=== PATIENT | male | born 1940 | race Caucasian/White ===

== ENCOUNTER 2021-02-09 10:34 | Inpatient (IN) | payer MEDICARE ==
[~2021-02-09] VITALS: Ht 180.3 cm; Wt 121.0 kg
[2021-02-09] MEDS ORDERED: LOPERAMIDE 2 MG (IMODIUM) TABLET PO PRN (11:30)
[2021-02-09] MEDS ORDERED: ACETAMINOPHEN 500 MG TAB (TYLENOL) PO PRN (11:30)
[2021-02-09] MEDS ORDERED: ALPRAZolam 0.25 MG (XANAX) TAB PO PRN (11:30)
[2021-02-09] MEDS ORDERED: ONDANSETRON 4 MG (ZOFRAN) ORAL DISSOLVE TAB PO PRN (11:30)
[2021-02-09] MEDS ORDERED: CALCIUM CARBONATE 500 MG (TUMS) TAB.CHEW PO PRN (11:30)
[2021-02-09] MEDS ORDERED: LACTULOSE SYRUP 10GM/15ML (ENULOSE) 30ML UDC PO PRN (11:30)
[2021-02-09] MEDS ORDERED: diphenhydrAMINE 25 MG TAB (BENADRYL) PO PRN (11:30)
[2021-02-09] MEDS ORDERED: FLEET ENEMA ADULT 1 EA BTL PR PRN (11:30)
[2021-02-09] MEDS ORDERED: BISACODYL 10 MG SUPP (DULCOLAX) PR PRN (11:30)
[2021-02-09] MEDS ORDERED: guaiFENesin/CODEINE (ROBITUSSIN AC) 10ML UDC PO PRN (11:30)
[2021-02-09] MEDS ORDERED: DOCUSATE SODIUM 100 MG (COLACE) CAP PO PRN (11:30)
[2021-02-09] MEDS ORDERED: VITA-189 PO (11:41)
[2021-02-09] MEDS ORDERED: DIGO125T3 PO (11:41)
[2021-02-09] MEDS ORDERED: METO200T48 PO (11:41)
[2021-02-09] MEDS ORDERED: POLY17PO6 PO (11:41)
[2021-02-09] MEDS ORDERED: [UNRECOGNIZED DRUG - CODE] PO (11:41)
[2021-02-09] MEDS ORDERED: APIX5TAB PO (11:41)
[2021-02-09] MEDS ORDERED: INSU100V6 SQ (11:41)
[2021-02-09] MEDS ORDERED: INSU100V39 SQ (11:41)
[2021-02-09] MEDS ORDERED: OMEG1CAP24 PO (11:41)
--- OUTSIDE RECORDS SUMMARY | 2021-02-10 13:52 | XMS REPORT | Encounter Summary ---
[facility] Address Unknown Phone Unavailable Care Team Providers Care Cutter Barrel Drum Name Role Phone KAREN PARKINSON PCP Unavailable Insurance Providers: All historical and current Section Date Range: From patient's date of to the date document was create d. This section includes the names of all active insurance providers for the sandrita palacio Insurance Provider Type of Coverage Plan Name Start of Policy Co verage End of Policy Coverage Group Number Member ID Insurance Provider's Telephone N umber Policy Randall's Name Patient's Relationship to Policy Randall [employer] (WNR) PRESCRIPTION (WNR) Jul 12, 2006 (WNR) [id number] ANGELA HOPKINS PATIENT MEDICARE (WNR) MEDICARE (M) PART A Jul 12, 2006 PART A [id number] [phone] ANGELA HOPKINS PATIENT MEDICARE (WNR) MEDICARE (M) PART A Jul 12, 2006 PART A [id number] [phone] ANGELA HOPKINS PATIENT MEDICARE (WNR) MEDICARE (M) PART B Jul 12, 2006 PART B [id number] A [phone] ANGELA HOPKINS PATIENT MEDICARE (WNR) MEDICARE (M) PART B Jul 12, 2006 PART B [id number] A [phone] ANGELA HOPKINS PATIENT MEDICARE (WNR) MEDICARE (M) PART A Jul 12, 2006 PART A [id number] A [phone] ANGELA HOPKINS PATIENT MEDICARE (WNR) MEDICARE (M) PART B Jul 12, 2006 PART B [id number] A [phone] ANGELA HOPKINS PATIENT [id number] LIFE Jul 12, 2006 [facility] [id number] ANGELA HOPKINS PATIENT Selected Encounter This section includes the information on record at [place] for the Encounter. Date/Time Encounter Type Encounter Description Reason Provider Source Jul 20, 2020 08:30 AM Outpatient Encounter TELEPHONE PRIMARY CAR E ICD-10-CM E11.8 Type 2 diabetes mellitus with unspecified complications with Provider Comments: Type 2 diabetes mellitus ([facility] [id number]) KAREN PARKINSON Jonathan Encounter Template Text not used by [place] Assessments - Encounter Diagnoses This section includes the primary and secondary diag noses documented for the Encounter. Date/Time Primary/Secondary Diagnosis Diagnosis Name Provider Source Jul 20, 2020 08:30 AM PRIMARY Type 2 diabetes me llitus with unspecified complications KAREN PARKINSON [facility] Jul 20, 2020 08:30 AM SECONDARY Chronic atrial fibrillatio n, unspecified KAREN PARKINSONDELORES [facility] Jul 20, 2020 08:30 AM SECONDARY Essential (primary) hypertension KAREN PARKINSON [facility] Jul 20, 2020 08:30 AM SECONDARY Hyperlipidemia, unspecified [place]AR[place] Castillo [facility] Jul 20, 2020 08:30 AM SECONDARY Hypothyroidism, unspecified [place] KAREN Castillo [facility] Plan of Treatment: Future Appointments (+ 6 months) and Future Tests (+/- 45 day s) The Plan of Treatment section includes future care activities for the patient fr om all [place] treatment facilities. This section includes future appointments and fu ture orders which are active, pending or scheduled. Future Appointments This section includes appointments that were scheduled t o occur 6 months from the date of the Encounter, up to a maximum of 20 appointme nts. The data comes from all [place] treatment facilities. Appointment Date/Time Appointment Type Appointment Facili ty Name Oct 12, 2020 09:30 AM AMBULATORY - NONE [facility] Oct 18, 2020 01:30 PM AMBULATORY - MEDICINE [facility] Jan 18, 2021 08:45 AM AMBULATORY - NONE [facility] Surgical Procedures: All associated to the encounter No Data Provided for This Section Lab Results: +/- 30 days of the encounter This section includes the Chemistry and Hematology Lab R esults on record with [place] for the patient. Radiology Reports and Pathology Report s are provided separately, in subsequent sections. Lab Results This section contains the Chemistry/Hematology Results bonnie t were resulted 30 days before or 30 days after the date of the Encounter. Date/Time Source Result Type Result - Unit Interpretation Reference Range Comment Jul 13, 2020 08:00 AM [facility] MICROSCOPIC URINALYSIS S pecimen Type: URINE Comment: Specimen reflexed to culture due to increased WBCs. Ordering Provider: KARNE PARKINSON Report Released Date/Time: Apr 20, 2020 09:18 AM Reporting Lab: [address] [phone] Performing Lab: [address] [phone] UA WBC >50 /HPF H 0-5 UA BACTERIA Many /HPF 0-FEW UA SQUAM EPITHELIAL 1-5 /HPF 0-5 UA RBC 3-6 /HPF H 0-2 Jul 13, 2020 08:00 AM [facility] CBC Specimen Type: BLOOD No comment entered. Ordering Provider: KAREN PARKINSON Report Released Date/Time: Apr 20, 2020 09:18 AM Reporting Lab: [address] [phone] Performing Lab: [address] [phone] MPV (FV) 8.9 fL 7.4-10.4 RDW (FV) 13.3 % 11.5-14.5 HCT (FV) 41.0 % 40-52 HGB (FV) 14.1 g/dL 13-18 PLT (FV) 185 K/cmm 150-440 WBC (FV) 7.8 K/cmm 3.8-10.6 RBC (FV) 4.31 M/cmm L 4.4-5.9 MCV (FV) 95.1 fL 80-100 MCH (FV) 32.6 pg 26-34 MCHC (FV) 34.3 g/dL 32-36 NE% (FV) 62.5 % SEE ABSOLUTE # NE# (FV) 4.9 K/cmm 2.4-7.6 LY% (FV) 23.9 % SEE ABSOLUTE # LY# (FV) 1.9 K/cmm 1.0-4.8 MO% (FV) 10.7 % SEE ABSOLUTE # MO# (FV) 0.8 K/cmm 0.1-1.0 EO% (FV) 2.3 % SEE ABSOLUTE # EO# (FV) 0.2 K/cmm 0.0-0.4 BA% (FV) 0.6 % SEE ABSOLUTE # BA# (FV) 0.0 K/cmm 0.0-0.2 Jul 13, 2020 08:00 AM [facility] RENAL+LIVER PROFILE Spec imen Type: SERUM No comment entered. Ordering Provider: KAREN PARKINSON Report Released Date/Time: Apr 20, 2020 09:18 AM Reporting Lab: [address] [phone] Performing Lab: [address] [phone] GLUCOSE (FV) 164 mg/dL H 70-110 ALBUMIN (FV) 3.5 g/dL 3.4-5.0 AST (FV) 31 U/L 15-37 TOTAL BILIRUBIN (FV) 0.83 mg/dL 0.3-1.2 CHLORIDE (FV) 101 mmol/L 98-107 TOTAL PROTEIN (FV) 7.8 g/dL 6.1-7.9 SODIUM (FV) 135 mmol/L L 136-145 POTASSIUM (FV) 3.7 mmol/L 3.5-5.1 CO2 (FV) 22 mmol/L 21-32 UREA NITROGEN (FV) 26 mg/dL H 6-20 CALCIUM (FV) 9.0 mg/dL 8.9-10.3 ALT (FV) 30 U/L 0-63 ALK. PHOS. (FV) 45 U/L 32-126 eGFR 49 CREATININE (FV) 1.39 mg/dL H .61-1.24 Jul 13, 2020 08:00 AM [facility] URINALYSIS Specimen Type: URINE No comment entered. Ordering Provider: KAREN PARKINSON Report Released Date/Time: Apr 20, 2020 09:18 AM Reporting Lab: [address] [phone] Performing Lab: [address] [phone] UA COLOR STRAW COLORLESS-YELLOW UA SPEC GRAV 1.018 1.005-1.035 UA PH 5.5 PH 5-9 UA NITRITE 2+ QUAL. Neg.-Neg UA UROBILINOGEN <2.0 mg/dL -Normal: <2 m g-dL UA APPEARANCE 1+ CLEAR UA GLUCOSE NORMAL QUAL NEG-TRACE UA PROTEIN - QUAL NEG UA BILI - QUAL NEG UA BLOOD +- QUAL NEG-TRACE UA KETONES - QUAL NEG-TRACE UA LEUK EST 250 Burton/uL H NEG-74 Jul 13, 2020 08:00 AM [facility] LIPID PROFILE Specimen Type: SERUM No comment entered. Ordering Provider: KAREN PARKINSON Report Released Date/Time: Apr 20, 2020 09:18 AM Reporting Lab: [address] [phone] Performing Lab: [address] [phone] CHOLESTEROL, TOTAL (FV) 131 mg/dL 118-20 0 TRIGLYCERIDE (FV) 105 mg/dL <150 LDL CHOLESTEROL (CALCULATED) 56 HDL CHOLESTEROL (FV) 54 mg/dL >40 Jul 13, 2020 08:00 AM [facility] GLYCO HGB A1C Specimen Type: BLOOD No comment entered. Ordering Provider: KAREN PARKINSON Report Released Date/Time: Apr 20, 2020 09:18 AM Reporting Lab: [address] [phone] Performing Lab: [address] [phone] Glyco Hgb A1C 6.3 % H 4.2-5.8 Vital Signs: All taken on the encounter date No Data Provided for This Section Immunizations: All administered on the encounter date No Data Provided for This Section Social History: Smoking Status (Most current) and Tobacco Use (All prior to enco unter date) This section includes the most current, and the historical, smoking and tobacco- related health factors from the [facility] where the Encounter took place. Current Smoking Status This section includes the most current smoking, or tobacco -related health factor, from the [facility] where the Encounter took place. Date/Time Current Smoking Status Comment Facility Dec 20, 2018 11:41 AM PR-TOBACCO QUIT 15 YRS OR MORE [facility] Tobacco Use History This section includes a history of the smoking, or tobacco -related health factors, that were collected on or before the date of the Encoun ter. The data comes from the [place] facility where the Encounter took place. Date/Time Smoking Status/Tobacco Use Comment Facil ity Dec 20, 2018 11:41 AM VA-TOBACCO FORMER USER [facility] Dec 20, 2018 11:41 AM PR-TOBACCO QUIT 15 YRS OR MORE [facility] Advance Directives: All historical and current Section Date Range: From patient's date of to the date document was create d. This section includes ALL of a patient's completed or amen ded VA Advance and Rescinded Directives. The entries below indicate that a direc tive exists for the patient, but an actual copy is not included with this docume nt. The data comes from all [place] facilities. Date Advance Directives Provider Source Jun 07, 2011 ADVANCE DIRECTIVE TRENT LOZADA Radiology Reports: +/- 30 days of the encounter No Data Provided for This Section Pathology Reports: +/- 30 days of the encounter Pathology Reports For cases when an order for pathology services may have b een completed prior to the date of the Encounter, the report list includes the P athology Reports that were completed up to 30 days before date of the Encounter. For cases when an order for pathology services may have been completed after the date of the Encounter, the report list also includes the Pathology Reports that were completed up to 30 days after date of the Encounter. The data comes from all [place] treatment facilities. Date/Time Pathology Report Provider Source Jul 13, 2020 09:04 AM LR MICROBIOLOGY REPORT: Accession [UID]: [id number] [[id number]] Received: Jul 13, 2020@13:02 Collection sample: URINE MICROBIOLOGY Collection date: Jul 13, 2020 09:04 Site/Specimen: URINE Provider: KAREN PARKINSON Test(s) ordered: CULTURE, URINE................ completed: Jul 15, 2020 09:24 * BACTERIOLOGY FINAL REPORT => Jul 15, 2020 09:26 TECH CODE: [id number] CULTURE RESULTS: ESCHERICHIA COLI - Quantity: >100,000 CFU/ML Comment: Results of ampicillin testing can be used to predict results for amoxicillin. (CLSI M100). ANTIBIOTIC SUSCEPTIBILITY TEST RESULTS: ESCHERICHIA COLI : SUSC INTP AMIKACIN...................... S S AMPICILLIN.................... S S AMPICILLIN/SULBAC............. S S CEFAZOLIN..................... S S CEFEPIME...................... S S CEFTAZIDIME................... S S CEFTRIAXONE................... S S CIPROFLOXACIN................. S S ERTAPENEM..................... S S GENTAMICIN.................... S S IMIPENEM...................... S S LEVOFLOXACIN.................. S S NITROFURANTOIN................ S S PIPERACILLIN/TAZOBACTAM....... S S TOBRAMYCIN.................... S S TRIMETHOPRIM/SULFAMETHOXAZOLE. S S Bacteriology Remark(s): Preliminary Report: >100,000 CFU/ML Lactose Fermenting Gram Negative Rods ID & sens. to follow. Final Report: >100,000 CFU/ML ESCHERICHIA COLI =--=--=--=--=--=--=--=--=--=--=--=--=--=--=--=--=--=--=--=--=--=--=--=--=--=-- Performing Laboratory: Bacteriology Report Performed By: [facility] [CLIA# [id number]] [address] [facility] Encounter Notes: All associated encounter notes This section contains the clinical notes associated to the Encounter. Date/Time Encounter Note(s) Provider Source Jul 20, 2020 09:05 AM MEDICATION MGT NOTE: LOCAL TITLE: MEDICATION RECONCILIATION (PROVIDER) STANDARD TITLE: MEDICATION MGT NOTE DATE OF NOTE: JUL 20, 2020@09:05 ENTRY DATE: JUL 20, 2020@09:05:39 AUTHOR: KAREN PARKINSON COSIGNER: URGENCY: STATUS: COMPLETED Medication Reconciliation COMPLETED (Outpatient): The following medication additions, deletions, dosage changes, OR duplications were identified and discussed with patient/caregiver. Specify: see note This Medication Reconciliation note and Patient Medication Information Cover Sheet were reviewed with the patient and/or caregiver and all questions answered. A copy of this note was given to or mailed to patient and/or caregiver at the end of this visit. Remote and Local Allergies: FACILITY ALLERGY/ADR -------- No Remote Allergy/ADR Data available for this patient [facility] No Known Allergies A list of active outpatient prescriptions dispensed from this local [place] and dispensed remotely from another [place] or [facility] facility as well as local, pending and active inpatient orders, local clinic medications, locally documented non-VA medications, and local prescriptions that have or been discontinued in the past 90 days has been generated below. If the list for review does not include a component, then it was not applicable to this patient. Active Outpatient Medications (excluding Supplies): Active Outpatient Medications Status 1) NITROFURANTOIN MONO/MACRO 100MG SA CAP TAKE ONE ACTIVE CAPSULE BY MOUTH TWICE A DAY WITH FOOD [ANTIBIOTIC/ TAKE UNTIL ALL TAKEN] Active Non-VA Medications Status 1) Non-VA ALFUZOSIN HCL 10MG SA TAB 10MG MOUTH ONCE ACTIVE DAILY 2) Non-VA APIXABAN 5MG TAB 5MG MOUTH TWICE A DAY ACTIVE 3) Non-VA CALCIUM/MAGNESIUM TAB,EC 400/200 MOUTH ONCE ACTIVE DAILY 4) Non-VA CYANOCOBALAMIN 500MCG (B-12) TAB 1000MCG MOUTH ACTIVE TWICE A DAY 5) Non-VA DIGOXIN (LANOXIN) 0.125MG TAB 0.125MG MOUTH AT ACTIVE BEDTIME 6) Non-VA ESOMEPRAZOLE MAGNESIUM 40MG EC CAP 40MG MOUTH ACTIVE EVERY MORNING 7) Non-VA FERROUS SULFATE TAB,EC 65MG/325MG MOUTH ONCE ACTIVE DAILY 8) Non-VA FINASTERIDE 5MG TAB *HD* 5MG MOUTH ONCE DAILY ACTIVE 9) Non-VA FISH OIL 2000MG 4000MG MOUTH ONCE DAILY ACTIVE 10) Non-VA GLIPIZIDE 5MG SA TAB 5MG MOUTH 30 MINUTES ACTIVE BEFORE BREAKFAST 11) Non-VA HYDROCHLOROTHIAZIDE 25MG TAB 12.5MG MOUTH ACTIVE EVERY MORNING 12) Non-VA LEVOTHYROXINE NA (SYNTHROID) 25MCG TAB 0.025MG ACTIVE MOUTH EVERY MORNING 13) Non-VA LISINOPRIL 40MG TAB 40MG MOUTH ONCE DAILY ACTIVE 14) Non-VA METFORMIN 850MG/PIOGLITAZONE 15MG TAB 1 TABLET ACTIVE MOUTH TWICE A DAY 15) Non-VA METOPROLOL SUCCINATE 100MG SA TAB,UD 100MG ACTIVE MOUTH ONCE DAILY 16) Non-VA MULTIVITAMIN CAP/TAB 1 CAP/TAB MOUTH ONCE ACTIVE DAILY 17) Non-VA POTASSIUM CL 20MEQ SA TAB (DISPERSIBLE) 10MEQ ACTIVE MOUTH ONCE DAILY 18) Non-VA PSYLLIUM ORAL,PWD 1 TABLESPOONFUL (15 mL) IN ACTIVE WATER OR JUICE & DRINK ONCE DAILY 19) Non-VA SILDENAFIL CITRATE 100MG TAB 100MG MOUTH ACTIVE DIRECTED NEEDED 20) Non-VA SIMVASTATIN 80MG TAB 40MG MOUTH AT BEDTIME ACTIVE 21) Non-VA SOTALOL 80MG TAB 80MG MOUTH ONCE DAILY ACTIVE 22 Total Medications Active Medications from Remote Data LEVOTHYROXINE NA 0.025MG TAB Sig: Quantity: 90 Days Supply: 90 2 refills remaining until Last filled 05/01/18 at [facility] (Active) LISINOPRIL 40MG TAB Sig: Quantity: 90 Days Supply: 90 1 refills remaining until Last filled 11/16/13 at [facility] (Active) METFORMIN HCL 850MG/PIOGLITAZONE HCL 15MG TAB Sig: Quantity: 180 Days Supply: 90 3 refills remaining until Last filled 11/20/08 at [facility] (Active) HYDROCHLOROTHIAZIDE 12.5MG TAB Sig: Quantity: 90 Days Supply: 90 1 refills remaining until Last filled 01/27/14 at [facility] (Active) SIMVASTATIN 40MG TAB Sig: Quantity: 90 Days Supply: 90 2 refills remaining until Last filled 02/25/17 at [facility] (Active) SIMVASTATIN 40MG TAB Sig: Quantity: 90 Days Supply: 90 2 refills remaining until Last filled 05/05/17 at [facility] (Active) SIMVASTATIN 40MG TAB Sig: Quantity: 90 Days Supply: 90 3 refills remaining until Last filled 04/21/10 at [facility] (Active) GATIFLOXACIN 0.5% SOLN,OPH Sig: Quantity: 2.5 Days Supply: 10 0 refills remaining until Last filled 11/23/14 at [facility] (Active) FINASTERIDE 5MG TAB Sig: Quantity: 90 Days Supply: 90 2 refills remaining until Last filled 05/06/15 at [facility] (Active) HYDROCHLOROTHIAZIDE 25MG TAB Sig: Quantity: 45 Days Supply: 90 1 refills remaining until Last filled 12/03/14 at [facility] (Active) ESOMEPRAZOLE MAGNESIUM 40MG CAP,EC Sig: Quantity: 90 Days Supply: 90 3 refills remaining until Last filled 12/17/08 at [facility] (Active) FINASTERIDE 5MG TAB Sig: Quantity: 30 Days Supply: 30 0 refills remaining until Last filled 09/05/11 at [facility] (Active) METFORMIN HCL 850MG/PIOGLITAZONE HCL 15MG TAB Sig: Quantity: 180 Days Supply: 90 1 refills remaining until Last filled 12/27/14 at [facility] (Active) FINASTERIDE 5MG TAB Sig: Quantity: 90 Days Supply: 90 1 refills remaining until Last filled 07/15/14 at [facility] (Active) GLIPIZIDE 5MG TAB,SA Sig: Quantity: 90 Days Supply: 90 3 refills remaining until Last filled 11/22/09 at [facility] (Active) LISINOPRIL 40MG TAB Sig: Quantity: 90 Days Supply: 90 3 refills remaining until Last filled 05/10/15 at [facility] (Active) POTASSIUM CHLORIDE 10MEQ CAP,SA Sig: Quantity: 30 Days Supply: 30 8 refills remaining until Last filled 03/15/09 at [id number] (Active) SIMVASTATIN 40MG TAB Sig: Quantity: 90 Days Supply: 90 2 refills remaining until Last filled 03/26/15 at [facility] (Active) VARDENAFIL HCL 20MG TAB Sig: Quantity: 12 Days Supply: 60 5 refills remaining until Last filled 12/16/07 at [facility] (Active) METFORMIN HCL 850MG/PIOGLITAZONE HCL 15MG TAB Sig: Quantity: 180 Days Supply: 90 2 refills remaining until Last filled 04/17/16 at [facility] (Active) OXYBUTYNIN CL 5MG TAB Sig: Quantity: 12 Days Supply: 6 5 refills remaining until Last filled 10/09/17 at [facility] (Active) PREDNISOLONE ACETATE 1% SUSP,OPH Sig: Quantity: 5 Days Supply: 21 0 refills remaining until Last filled 12/22/14 at [facility] (Active) ESOMEPRAZOLE MAGNESIUM 40MG CAP,EC Sig: Quantity: 30 Days Supply: 30 0 refills remaining until Last filled 09/05/11 at [facility] (Active) ESOMEPRAZOLE MAGNESIUM 40MG CAP,EC Sig: Quantity: 90 Days Supply: 90 3 refills remaining until Last filled 07/01/08 at [facility] (Active) GLIPIZIDE 5MG TAB,SA Sig: Quantity: 90 Days Supply: 90 3 refills remaining until Last filled 12/17/08 at [facility] (Active) ESOMEPRAZOLE MAGNESIUM 40MG CAP,EC Sig: Quantity: 90 Days Supply: 90 3 refills remaining until Last filled 01/14/08 at [facility] (Active) PANTOPRAZOLE NA 40MG TAB,EC Sig: Quantity: 90 Days Supply: 90 2 refills remaining until Last filled 09/22/16 at [facility] (Active) WARFARIN NA 5MG TAB Sig: Quantity: 30 Days Supply: 30 99 refills remaining until Last filled 09/22/09 at [id number] (Active) VARDENAFIL HCL 20MG TAB Sig: Quantity: 6 Days Supply: 30 5 refills remaining until Last filled 04/30/07 at [facility] (Active) GLIPIZIDE 5MG TAB,SA Sig: Quantity: 90 Days Supply: 90 3 refills remaining until Last filled 04/02/09 at [facility] (Active) METFORMIN HCL 850MG/PIOGLITAZONE HCL 15MG TAB Sig: Quantity: 180 Days Supply: 90 3 refills remaining until Last filled 01/30/10 at [facility] (Active) TERBINAFINE HCL 250MG TAB Sig: Quantity: 90 Days Supply: 90 0 refills remaining until Last filled 08/10/14 at [facility] (Active) ALFUZOSIN HCL 10MG TAB,SA Sig: Quantity: 90 Days Supply: 90 2 refills remaining until Last filled 12/25/16 at [facility] (Active) VARDENAFIL HCL 20MG TAB Sig: Quantity: 12 Days Supply: 60 5 refills remaining until Last filled 05/03/08 at [facility] (Active) POTASSIUM CHLORIDE 10MEQ CAP,SA Sig: Quantity: 90 Days Supply: 90 3 refills remaining until Last filled 08/30/17 at [facility] (Active) PANTOPRAZOLE NA 40MG TAB,EC Sig: Quantity: 90 Days Supply: 90 2 refills remaining until Last filled 11/02/18 at [facility] (Active) METFORMIN HCL 850MG/PIOGLITAZONE HCL 15MG TAB Sig: Quantity: 180 Days Supply: 90 3 refills remaining until Last filled 10/16/14 at [facility] (Active) SILDENAFIL CITRATE 100MG TAB Sig: Quantity: 12 Days Supply: 60 5 refills remaining until Last filled 11/04/18 at [facility] (Active) GLIPIZIDE 5MG TAB,SA Sig: Quantity: 90 Days Supply: 90 3 refills remaining until Last filled 05/06/15 at [facility] (Active) GLIPIZIDE 5MG TAB,SA Sig: Quantity: 90 Days Supply: 90 3 refills remaining until Last filled 09/09/16 at [facility] (Active) POTASSIUM CHLORIDE 10MEQ CAP,SA Sig: Quantity: 90 Days Supply: 90 3 refills remaining until Last filled 11/15/16 at [facility] (Active) POTASSIUM CHLORIDE 10MEQ CAP,SA Sig: Quantity: 30 Days Supply: 30 8 refills remaining until Last filled 12/17/08 at [id number] (Active) METFORMIN HCL 850MG/PIOGLITAZONE HCL 15MG TAB Sig: Quantity: 180 Days Supply: 90 3 refills remaining until Last filled 04/02/09 at [facility] (Active) FINASTERIDE 5MG TAB Sig: Quantity: 90 Days Supply: 90 3 refills remaining until Last filled 03/05/18 at [facility] (Active) METFORMIN HCL 850MG/PIOGLITAZONE HCL 15MG TAB Sig: Quantity: 180 Days Supply: 90 2 refills remaining until Last filled 07/31/15 at [facility] (Active) SIMVASTATIN 40MG TAB Sig: Quantity: 90 Days Supply: 90 3 refills remaining until Last filled 08/04/14 at [facility] (Active) GLIPIZIDE 5MG TAB,SA Sig: Quantity: 90 Days Supply: 90 3 refills remaining until Last filled 06/11/16 at [facility] (Active) TADALAFIL 20MG TAB Sig: Quantity: 18 Days Supply: 90 3 refills remaining until Last filled 01/16/09 at [facility] (Active) SIMVASTATIN 40MG TAB Sig: Quantity: 90 Days Supply: 90 2 refills remaining until Last filled 12/25/16 at [facility] (Active) METFORMIN HCL 850MG/PIOGLITAZONE HCL 15MG TAB Sig: Quantity: 180 Days Supply: 90 1 refills remaining until Last filled 03/09/15 at [facility] (Active) SILDENAFIL CITRATE 100MG TAB Sig: Quantity: 12 Days Supply: 60 3 refills remaining until Last filled 09/23/15 at [facility] (Active) FINASTERIDE 5MG TAB Sig: Quantity: 90 Days Supply: 90 2 refills remaining until Last filled 12/03/17 at [facility] (Active) APIXABAN 5MG TAB Sig: Quantity: 180 Days Supply: 90 1 refills remaining until Last filled 09/17/18 at [facility] (Active) ESOMEPRAZOLE MAGNESIUM 40MG CAP,EC Sig: Quantity: 45 Days Supply: 90 3 refills remaining until Last filled 05/07/14 at [facility] (Active) TAMSULOSIN HCL 0.4MG CAP Sig: Quantity: 90 Days Supply: 90 3 refills remaining until Last filled 09/25/11 at [facility] (Active) SIMVASTATIN 40MG TAB Sig: Quantity: 90 Days Supply: 90 3 refills remaining until Last filled 11/06/09 at [facility] (Active) VARDENAFIL HCL 20MG TAB Sig: Quantity: 12 Days Supply: 60 5 refills remaining until Last filled 12/17/08 at [facility] (Active) LISINOPRIL 40MG TAB Sig: Quantity: 90 Days Supply: 90 2 refills remaining until Last filled 07/19/15 at [facility] (Active) GLIPIZIDE 5MG TAB,SA Sig: Quantity: 90 Days Supply: 90 3 refills remaining until Last filled 02/21/10 at [facility] (Active) DIGOXIN 0.125MG TAB Sig: Quantity: 90 Days Supply: 90 2 refills remaining until Last filled 09/28/17 at [facility] (Active) SILDENAFIL CITRATE 100MG TAB Sig: Quantity: 12 Days Supply: 60 5 refills remaining until Last filled 10/27/16 at [facility] (Active) METFORMIN HCL 850MG/PIOGLITAZONE HCL 15MG TAB Sig: Quantity: 180 Days Supply: 90 3 refills remaining until Last filled 10/05/17 at [facility] (Active) FINASTERIDE 5MG TAB Sig: Quantity: 90 Days Supply: 90 2 refills remaining until Last filled 09/04/17 at [facility] (Active) POTASSIUM CHLORIDE 10MEQ CAP,SA Sig: Quantity: 90 Days Supply: 90 2 refills remaining until Last filled 04/17/16 at [facility] (Active) POTASSIUM CHLORIDE 10MEQ CAP,SA Sig: Quantity: 90 Days Supply: 90 2 refills remaining until Last filled 07/19/15 at [facility] (Active) LISINOPRIL 40MG TAB Sig: Quantity: 90 Days Supply: 90 3 refills remaining until Last filled 02/21/10 at [facility] (Active) DIGOXIN 0.125MG TAB Sig: Quantity: 90 Days Supply: 90 1 refills remaining until Last filled 06/21/14 at [facility] (Active) SIMVASTATIN 40MG TAB Sig: Quantity: 90 Days Supply: 90 3 refills remaining until Last filled 11/24/18 at [facility] (Active) TADALAFIL 20MG TAB Sig: Quantity: 18 Days Supply: 90 3 refills remaining until Last filled 03/21/09 at [facility] (Active) LISINOPRIL 40MG TAB Sig: Quantity: 90 Days Supply: 90 3 refills remaining until Last filled 09/01/14 at [facility] (Active) GLIPIZIDE 5MG TAB,SA Sig: Quantity: 90 Days Supply: 90 3 refills remaining until Last filled 11/25/14 at [facility] (Active) GLIPIZIDE 5MG TAB,SA Sig: Quantity: 90 Days Supply: 90 3 refills remaining until Last filled 02/05/15 at [facility] (Active) GLIPIZIDE 5MG TAB,SA Sig: Quantity: 90 Days Supply: 90 3 refills remaining until Last filled 10/18/08 at [facility] (Active) SIMVASTATIN 40MG TAB Sig: Quantity: 90 Days Supply: 90 2 refills remaining until Last filled 05/28/18 at [facility] (Active) METFORMIN HCL 1000MG/ROSIGLITAZONE MALEATE 2MG TAB Sig: Quantity: 180 Days Supply: 90 3 refills remaining until Last filled 03/20/07 at [facility] (Active) VARDENAFIL HCL 20MG TAB Sig: Quantity: 12 Days Supply: 60 5 refills remaining until Last filled 01/27/08 at [facility] (Active) SIMVASTATIN 40MG TAB Sig: Quantity: 90 Days Supply: 90 3 refills remaining until Last filled 01/21/10 at [facility] (Active) DIGOXIN 0.125MG TAB Sig: Quantity: 90 Days Supply: 90 1 refills remaining until Last filled 01/27/14 at [facility] (Active) SIMVASTATIN 40MG TAB Sig: Quantity: 90 Days Supply: 90 2 refills remaining until Last filled 08/27/18 at [facility] (Active) ESOMEPRAZOLE MAGNESIUM 40MG CAP,EC Sig: Quantity: 45 Days Supply: 90 4 refills remaining until Last filled 05/29/16 at [facility] (Active) SILDENAFIL CITRATE 100MG TAB Sig: Quantity: 12 Days Supply: 60 2 refills remaining until Last filled 03/24/16 at [facility] (Active) METFORMIN HCL 1000MG/ROSIGLITAZONE MALEATE 2MG TAB Sig: Quantity: 180 Days Supply: 90 3 refills remaining until Last filled 01/14/08 at [facility] (Active) ALFUZOSIN HCL 10MG TAB,SA Sig: Quantity: 90 Days Supply: 90 3 refills remaining until Last filled 12/12/15 at [facility] (Active) TAMSULOSIN HCL 0.4MG CAP Sig: Quantity: 30 Days Supply: 30 0 refills remaining until Last filled 09/05/11 at [facility] (Active) ALFUZOSIN HCL 10MG TAB,SA Sig: Quantity: 90 Days Supply: 90 2 refills remaining until Last filled 10/19/17 at [facility] (Active) WARFARIN NA 5MG TAB Sig: Quantity: 30 Days Supply: 30 99 refills remaining until Last filled 10/17/09 at [id number] (Active) AMOXICILLIN TRIHYDRATE 875MG/CLAVULANATE K 125MG TAB Sig: Quantity: 20 Days Supply: 10 0 refills remaining until Last filled 03/18/15 at [facility] (Active) HYDROCHLOROTHIAZIDE 12.5MG TAB Sig: Quantity: 90 Days Supply: 90 3 refills remaining until Last filled 09/01/14 at [facility] (Active) LISINOPRIL 40MG TAB Sig: Quantity: 90 Days Supply: 90 1 refills remaining until Last filled 06/21/14 at [facility] (Active) VARDENAFIL HCL 20MG TAB Sig: Quantity: 6 Days Supply: 30 5 refills remaining until Last filled 08/27/07 at [facility] (Active) VARDENAFIL HCL 20MG TAB Sig: Quantity: 6 Days Supply: 30 5 refills remaining until Last filled 06/12/07 at [facility] (Active) SILDENAFIL CITRATE 100MG TAB Sig: Quantity: 12 Days Supply: 60 5 refills remaining until Last filled 01/31/18 at [facility] (Active) GLIPIZIDE 5MG TAB,SA Sig: Quantity: 90 Days Supply: 90 3 refills remaining until Last filled 01/14/08 at [facility] (Active) LISINOPRIL 40MG TAB Sig: Quantity: 90 Days Supply: 90 4 refills remaining until Last filled 09/28/17 at [facility] (Active) POTASSIUM CHLORIDE 10MEQ CAP,SA Sig: Quantity: 90 Days Supply: 90 3 refills remaining until Last filled 05/10/15 at [facility] (Active) DIGOXIN 0.125MG TAB Sig: Quantity: 90 Days Supply: 90 0 refills remaining until Last filled 05/10/15 at [facility] (Active) SILDENAFIL CITRATE 100MG TAB Sig: Quantity: 12 Days Supply: 60 5 refills remaining until Last filled 02/25/17 at [facility] (Active) METFORMIN HCL 850MG/PIOGLITAZONE HCL 15MG TAB Sig: Quantity: 180 Days Supply: 90 3 refills remaining until Last filled 04/08/17 at [facility] (Active) METFORMIN HCL 850MG/PIOGLITAZONE HCL 15MG TAB Sig: Quantity: 180 Days Supply: 90 3 refills remaining until Last filled 02/07/14 at [facility] (Active) ESOMEPRAZOLE MAGNESIUM 40MG CAP,EC Sig: Quantity: 45 Days Supply: 90 3 refills remaining until Last filled 08/05/14 at [facility] (Active) SIMVASTATIN 40MG TAB Sig: Quantity: 90 Days Supply: 90 2 refills remaining until Last filled 07/12/17 at [facility] (Active) POTASSIUM CHLORIDE 10MEQ CAP,SA Sig: Quantity: 90 Days Supply: 90 3 refills remaining until Last filled 09/01/14 at [facility] (Active) VARDENAFIL HCL 20MG TAB Sig: Quantity: 6 Days Supply: 30 5 refills remaining until Last filled 03/13/07 at [facility] (Active) SIMVASTATIN 40MG TAB Sig: Quantity: 90 Days Supply: 90 3 refills remaining until Last filled 05/06/14 at [facility] (Active) ESOMEPRAZOLE MAGNESIUM 40MG CAP,EC Sig: Quantity: 45 Days Supply: 90 2 refills remaining until Last filled 03/26/15 at [facility] (Active) ESOMEPRAZOLE MAGNESIUM 40MG CAP,EC Sig: Quantity: 90 Days Supply: 90 3 refills remaining until Last filled 04/01/08 at [facility] (Active) LOTEPREDNOL ETABONATE 0.5%/TOBRAMYCIN 0.3% SUSP,OPTH Sig: Quantity: 5 Days Supply: 7 0 refills remaining until Last filled 08/04/08 at [id number] (Active) GLIPIZIDE 5MG TAB,SA Sig: Quantity: 90 Days Supply: 90 1 refills remaining until Last filled 03/13/07 at [facility] (Active) APIXABAN 5MG TAB Sig: Quantity: 180 Days Supply: 90 1 refills remaining until Last filled 12/21/17 at [facility] (Active) WARFARIN NA 5MG TAB Sig: Quantity: 90 Days Supply: 90 3 refills remaining until Last filled 09/04/16 at [facility] (Active) DIGOXIN 0.125MG TAB Sig: Quantity: 90 Days Supply: 90 3 refills remaining until Last filled 09/01/14 at [facility] (Active) DIGOXIN 0.125MG TAB Sig: Quantity: 90 Days Supply: 90 2 refills remaining until Last filled 12/27/17 at [facility] (Active) ALFUZOSIN HCL 10MG TAB,SA Sig: Quantity: 90 Days Supply: 90 2 refills remaining until Last filled 03/30/18 at [facility] (Active) ESOMEPRAZOLE MAGNESIUM 40MG CAP,EC Sig: Quantity: 45 Days Supply: 90 2 refills remaining until Last filled 01/13/15 at [facility] (Active) ALFUZOSIN HCL 10MG TAB,SA Sig: Quantity: 90 Days Supply: 90 2 refills remaining until Last filled 03/19/15 at [facility] (Active) SIMVASTATIN 40MG TAB Sig: Quantity: 90 Days Supply: 90 3 refills remaining until Last filled 11/01/14 at [facility] (Active) TADALAFIL 20MG TAB Sig: Quantity: 18 Days Supply: 90 3 refills remaining until Last filled 07/01/09 at [facility] (Active) METFORMIN HCL 850MG/PIOGLITAZONE HCL 15MG TAB Sig: Quantity: 180 Days Supply: 90 3 refills remaining until Last filled 06/22/08 at [facility] (Active) METFORMIN HCL 850MG/PIOGLITAZONE HCL 15MG TAB Sig: Quantity: 180 Days Supply: 90 3 refills remaining until Last filled 06/17/09 at [facility] (Active) LEVOTHYROXINE NA 0.025MG TAB Sig: Quantity: 30 Days Supply: 30 5 refills remaining until Last filled 11/17/17 at [facility] (Active) CEPHALEXIN 500MG CAP Sig: Quantity: 21 Days Supply: 7 0 refills remaining until Last filled 09/05/17 at [facility] (Active) SIMVASTATIN 40MG TAB Sig: Quantity: 90 Days Supply: 90 3 refills remaining until Last filled 02/21/14 at [facility] (Active) ALFUZOSIN HCL 10MG TAB,SA Sig: Quantity: 90 Days Supply: 90 2 refills remaining until Last filled 06/23/17 at [facility] (Active) FINASTERIDE 5MG TAB Sig: Quantity: 90 Days Supply: 90 2 refills remaining until Last filled 09/07/16 at [facility] (Active) ESOMEPRAZOLE MAGNESIUM 40MG CAP,EC Sig: Quantity: 90 Days Supply: 90 3 refills remaining until Last filled 10/21/09 at [facility] (Active) METFORMIN HCL 850MG/PIOGLITAZONE HCL 15MG TAB Sig: Quantity: 180 Days Supply: 90 3 refills remaining until Last filled 08/29/08 at [facility] (Active) WARFARIN NA 5MG TAB Sig: Quantity: 104 Days Supply: 90 3 refills remaining until Last filled 01/22/14 at [facility] (Active) FINASTERIDE 5MG TAB Sig: Quantity: 90 Days Supply: 90 3 refills remaining until Last filled 06/11/16 at [facility] (Active) LEVOTHYROXINE NA 0.025MG TAB Sig: Quantity: 30 Days Supply: 30 5 refills remaining until Last filled 08/18/17 at [facility] (Active) SILDENAFIL CITRATE 100MG TAB Sig: Quantity: 12 Days Supply: 60 3 refills remaining until Last filled 11/23/15 at [facility] (Active) METFORMIN HCL 850MG/PIOGLITAZONE HCL 15MG TAB Sig: Quantity: 180 Days Supply: 90 3 refills remaining until Last filled 09/07/09 at [facility] (Active) VARDENAFIL HCL 20MG TAB Sig: Quantity: 12 Days Supply: 60 5 refills remaining until Last filled 03/13/08 at [facility] (Active) GLIPIZIDE 5MG TAB,SA Sig: Quantity: 90 Days Supply: 90 3 refills remaining until Last filled 12/03/17 at [facility] (Active) GLIPIZIDE 5MG TAB,SA Sig: Quantity: 90 Days Supply: 90 3 refills remaining until Last filled 07/01/08 at [facility] (Active) OXYBUTYNIN CL 5MG TAB Sig: Quantity: 12 Days Supply: 6 5 refills remaining until Last filled 10/22/17 at [facility] (Active) GLIPIZIDE 5MG TAB,SA Sig: Quantity: 90 Days Supply: 90 3 refills remaining until Last filled 06/17/09 at [facility] (Active) SIMVASTATIN 40MG TAB Sig: Quantity: 90 Days Supply: 90 3 refills remaining until Last filled 08/18/16 at [facility] (Active) VARDENAFIL HCL 20MG TAB Sig: Quantity: 12 Days Supply: 60 5 refills remaining until Last filled 08/29/08 at [facility] (Active) GLIPIZIDE 5MG TAB,SA Sig: Quantity: 90 Days Supply: 90 3 refills remaining until Last filled 08/27/07 at [facility] (Active) HYDROCHLOROTHIAZIDE 12.5MG TAB Sig: Quantity: 90 Days Supply: 90 3 refills remaining until Last filled 06/21/14 at [facility] (Active) FINASTERIDE 5MG TAB Sig: Quantity: 90 Days Supply: 90 2 refills remaining until Last filled 11/26/14 at [facility] (Active) SILDENAFIL CITRATE 100MG TAB Sig: Quantity: 12 Days Supply: 60 5 refills remaining until Last filled 11/23/17 at [facility] (Active) METFORMIN HCL 850MG/PIOGLITAZONE HCL 15MG TAB Sig: Quantity: 180 Days Supply: 90 3 refills remaining until Last filled 02/01/09 at [facility] (Active) HYDROCHLOROTHIAZIDE 12.5MG CAP Sig: Quantity: 90 Days Supply: 90 3 refills remaining until Last filled 09/24/08 at [id number] (Active) POTASSIUM CHLORIDE 10MEQ CAP,SA Sig: Quantity: 30 Days Supply: 30 9 refills remaining until Last filled 11/20/08 at [id number] (Active) ALFUZOSIN HCL 10MG TAB,SA Sig: Quantity: 90 Days Supply: 90 3 refills remaining until Last filled 09/09/16 at [facility] (Active) WARFARIN NA 5MG TAB Sig: Quantity: 104 Days Supply: 90 3 refills remaining until Last filled 08/21/13 at [facility] (Active) DIGOXIN 0.125MG TAB Sig: Quantity: 90 Days Supply: 90 1 refills remaining until Last filled 11/16/13 at [facility] (Active) POTASSIUM CHLORIDE 10MEQ CAP,SA Sig: Quantity: 90 Days Supply: 90 1 refills remaining until Last filled 01/27/14 at [facility] (Active) DIGOXIN 0.125MG TAB Sig: Quantity: 90 Days Supply: 90 2 refills remaining until Last filled 01/01/17 at [facility] (Active) POTASSIUM CHLORIDE 10MEQ CAP,SA Sig: Quantity: 30 Days Supply: 30 8 refills remaining until Last filled 02/11/09 at [id number] (Active) SIMVASTATIN 40MG TAB Sig: Quantity: 90 Days Supply: 90 2 refills remaining until Last filled 01/12/15 at [facility] (Active) SILDENAFIL CITRATE 100MG TAB Sig: Quantity: 12 Days Supply: 60 2 refills remaining until Last filled 08/18/16 at [facility] (Active) LISINOPRIL 40MG TAB Sig: Quantity: 90 Days Supply: 90 3 refills remaining until Last filled 03/20/12 at [facility] (Active) SILDENAFIL CITRATE 100MG TAB Sig: Quantity: 12 Days Supply: 60 3 refills remaining until Last filled 08/11/15 at [facility] (Active) LISINOPRIL 40MG TAB Sig: Quantity: 90 Days Supply: 90 1 refills remaining until Last filled 01/27/14 at [facility] (Active) ALFUZOSIN HCL 10MG TAB,SA Sig: Quantity: 90 Days Supply: 90 3 refills remaining until Last filled 06/11/16 at [facility] (Active) DIGOXIN 0.125MG TAB Sig: Quantity: 90 Days Supply: 90 2 refills remaining until Last filled 03/30/18 at [facility] (Active) POTASSIUM CHLORIDE 10MEQ CAP,SA Sig: Quantity: 30 Days Supply: 30 8 refills remaining until Last filled 01/08/09 at [id number] (Active) SIMVASTATIN 40MG TAB Sig: Quantity: 90 Days Supply: 90 2 refills remaining until Last filled 09/18/17 at [facility] (Active) WARFARIN NA 5MG TAB Sig: Quantity: 30 Days Supply: 30 99 refills remaining until Last filled 09/15/08 at [id number] (Active) POTASSIUM CHLORIDE 10MEQ CAP,SA Sig: Quantity: 30 Days Supply: 30 10 refills remaining until Last filled 10/15/08 at [id number] (Active) FINASTERIDE 5MG TAB Sig: Quantity: 90 Days Supply: 90 1 refills remaining until Last filled 01/27/14 at [facility] (Active) CODEINE 30MG/ACETAMINOPHEN 300MG TAB Sig: Quantity: 14 Days Supply: 4 0 refills remaining until Last filled 03/19/15 at [facility] (Active) WARFARIN NA 5MG TAB Sig: Quantity: 30 Days Supply: 30 99 refills remaining until Last filled 10/15/08 at [id number] (Active) WARFARIN NA 5MG TAB Sig: Quantity: 30 Days Supply: 30 99 refills remaining until Last filled 11/20/08 at [id number] (Active) FINASTERIDE 5MG TAB Sig: Quantity: 90 Days Supply: 90 2 refills remaining until Last filled 02/05/15 at [facility] (Active) POTASSIUM CHLORIDE 10MEQ CAP,SA Sig: Quantity: 30 Days Supply: 30 11 refills remaining until Last filled 09/24/08 at [id number] (Active) POTASSIUM CHLORIDE 10MEQ CAP,SA Sig: Quantity: 90 Days Supply: 90 3 refills remaining until Last filled 09/07/16 at [facility] [facility] (Active) LISINOPRIL 40MG TAB Sig: Quantity: 90 Days Supply: 90 4 refills remaining until Last filled 04/01/17 at [facility] [employer] [facility] (Active) SIMVASTATIN 40MG TAB Sig: Quantity: 90 Days Supply: 90 2 refills remaining until Last filled 11/29/17 at [facility] [facility] (Active) PANTOPRAZOLE NA 40MG TAB,EC Sig: Quantity: 90 Days Supply: 90 2 refills remaining until Last filled 06/06/17 at [facility] [facility] (Active) ALFUZOSIN HCL 10MG TAB,SA Sig: Quantity: 90 Days Supply: 90 2 refills remaining until Last filled 08/17/18 at [facility] (Active) ALFUZOSIN HCL 10MG TAB,SA Sig: Quantity: 90 Days Supply: 90 2 refills remaining until Last filled 03/25/17 at [facility] [employer] [facility] (Active) DIGOXIN 0.125MG TAB Sig: Quantity: 90 Days Supply: 90 2 refills remaining until Last filled 07/20/15 at [facility] (Active) ESOMEPRAZOLE MAGNESIUM 40MG CAP,EC Sig: Quantity: 45 Days Supply: 90 3 refills remaining until Last filled 11/02/14 at [facility] (Active) VARDENAFIL HCL 20MG TAB Sig: Quantity: 12 Days Supply: 60 5 refills remaining until Last filled 07/01/08 at [facility] (Active) /zay/ MD Fredo CHOPRA Primary Care Physician Signed: 07/20/2020 09:06 KAREN PARKINSON [facility] Jul 20, 2020 08:24 AM TELEPHONE ENCOUNTER NOTE: LOCAL TITLE: TELECARE STANDARD TITLE: TELEPHONE ENCOUNTER NOTE DATE OF NOTE: JUL 20, 2020@08:24 ENTRY DATE: JUL 20, 2020@08:24:23 AUTHOR: KAREN PARKINSON EXP COSIGNER: URGENCY: STATUS: COMPLETED PATIENT NAME: ANGELA HOPKINS SSN: [id number] FUTURE APPOINTMENTS: Jul@08:30 [facility] TM 1 TELE VISIT PATIENT'S HOME PHONE: [place] consented to telephone follow-up REASON FOR CALL: Patient is a 79-year-old male with a history of obesity/sleep apnea, BPH, GERD, chronic kidney disease (stage III), atrial fibrillation/coronary artery disease, hypertension, hyperlipidemia, hypothyroidism and type 2 diabetes who presents for follow-up review. Hx of DM for about 15 yrs. Was on Glucophage at first. Added Glipizide about 10 yrs ago. Up until about one yr ago, was on Glucophage/Actos with Glipizide. Evidently, the combo drug was recently stopped. Still on Glipizide. Not checking sugars. Has polyuria ( on HCTZ and BPH) and nocturia. Vision clear. Last eye exam Dec 2019. No retinopathy. Has some tingling in the feet. On statin RX Long standing HTN. Currently on Cozaar with HCTZ and Metoprolol ( Has A Fib). Appetite good. Lost about 40 pounds one year ago after a foot fracture, but starting to gain once again. Has gained most of the latter back. Some trouble sleeping due to nocturia. Hx of AFib for 15 yrs. Stays in [place] most of the time. On Eliquis. Followed by Cardiolgy. No chest pain or palpitations. Occ ankle edema. Has some GODDARD. No coughing or wheezing. Pt was seen by Urology one yr ago. He had a TURP in August. Pt still having some incontinence and dribbling. No dysuria. Urine cloudy. No blood. No back pain or fever. Hx of Hypothyroidism for 4 yrs. On Synthroid 0.075mg daily for the last few months. Energy lower than ideal. Gaining wt as above. Dry skin No change in nails. Colder than others. Reg bowel movements. No joint pain or muscle aching No headaches No skin rashes or non healing wounds Occ depression, No SI or HI Provider: KAREN PARKINSON Specimen: URINE. [place] [id number] Specimen Collection Date: Jul 13, 2020@09:04 Test name Result units Ref. range Site Code CULTURE, URINE Test Not Performed Comment: *CULTURE, URINE Not Performed: Jul 13, 2020@21:22 by [id number] *HUMAN RESOURCES CLERK Reason: Reaccessioned - results to follow. ---- MICROBIOLOGY ---- Accession [UID]: [id number] [[id number]] Received: Jul 13, 2020@13:02 Collection sample: URINE MICROBIOLOGY Collection date: Jul 13, 2020 09:04 Site/Specimen: URINE Provider: KAREN PARKINSON Test(s) ordered: CULTURE, URINE................ completed: Jul 15, 2020 09:24 * BACTERIOLOGY FINAL REPORT => Jul 15, 2020 09:26 TECH CODE: [id number] CULTURE RESULTS: ESCHERICHIA COLI - Quantity: >100,000 CFU/ML Comment: Results of ampicillin testing can be used to predict results for amoxicillin. (CLSI M100). ANTIBIOTIC SUSCEPTIBILITY TEST RESULTS: ESCHERICHIA COLI : SUSC INTP AMIKACIN...................... S S AMPICILLIN.................... S S AMPICILLIN/SULBAC............. S S CEFAZOLIN..................... S S CEFEPIME...................... S S CEFTAZIDIME................... S S CEFTRIAXONE................... S S CIPROFLOXACIN................. S S ERTAPENEM..................... S S GENTAMICIN.................... S S IMIPENEM...................... S S LEVOFLOXACIN.................. S S NITROFURANTOIN................ S S PIPERACILLIN/TAZOBACTAM....... S S TOBRAMYCIN.................... S S TRIMETHOPRIM/SULFAMETHOXAZOLE. S S Bacteriology Remark(s): Preliminary Report: >100,000 CFU/ML Lactose Fermenting Gram Negative Rods ID & sens. to follow. Final Report: >100,000 CFU/ML ESCHERICHIA COLI =--=--=--=--=--=--=--=--=--=--=--=--=--=--=--=--=--=--=--=--=--=--=--=--=--=-- Performing Laboratory: Bacteriology Report Performed By: [facility] [CLIA# [id number]] [address] [place] [address] [place] [address] Report Released Date/Time: Jul 13, 2020@09:03 Provider: KAREN PARKINSON Specimen: URINE. PENNYPUA [id number] Specimen Collection Date: Jul 13, 2020@08:01 Test name Result units Ref. range Site Code UA PH 5.50 PH 5 - 9 [70] UA PROTEIN NEG QUAL Ref: NEG [70] Eval: TRACE: 10-20 mg/dL Eval: 1+: 30-70 mg/dL Eval: 2+: 100-200 mg/dL Eval: 3+: 300-600 mg/dL Eval: 4+: >600 mg/dL UA GLUCOSE NEG QUAL NEG - TRACE [70] Eval: TRACE: 30-50 mg/dL Eval: 1+: 70-100 mg/dL Eval: 2+: 150-200 mg/dL Eval: 3+: 300-500 mg/dL Eval: 4+: 1000+ mg/dL UA KETONES NEG QUAL NEG - TRACE [70] Eval: TRACE: <10 mg/dL Eval: 1+: 10-20 mg/dL Eval: 2+: 40-60 mg/dL Eval: 3+: 80-100 mg/dL Eval: 4+: 150+ mg/dL UA BILI NEG QUAL Ref: NEG [6769] Eval: 1+: 0.5-1.0 mg/dL Eval: 2+: 2.0-4.0 mg/dL Eval: 3+: 6.0-10.0 mg/dL Eval: 4+: >10.0 mg/dL UA BLOOD TRACE QUAL NEG - TRACE [70] Eval: TRACE: 0.03 mg/dL Eval: 1+: 0.06-0.1 mg/dL Eval: 2+: 0.2-0.5 mg/dL Eval: 3+: >=1.0 mg/dL UA NITRITE 2+ QUAL. Neg. - Neg [70] UA UROBILINOGEN <2.0 mg/dL Ref: Normal: <2 mg/dL [70] Eval: Normal: <2.0 mg/dL Eval: 1+: 2.0 mg/dL Eval: 1+: 3.0 mg/dL Eval: 2+: 4.0 mg/dL Eval: 2+: 6.0 mg/dL Eval: 3+: 8.0 mg/dL Eval: 3+: 12.0 mg/dL Eval: 4+: >12.0 mg/dL UA SPEC GRAV 1.018 1.005 - 1.035 [70] UA COLOR STRAW COLORLESS - YELLOW [70] UA APPEARANCE TURBID Ref: CLEAR [70] UA WBC >50 H /HPF 0 - 5 [6770] UA RBC 3-6 H /HPF 0 - 2 [6770] UA SQUAM EPITHELIAL 1-5 /HPF 0 - 5 [6770] UA BACTERIA Many /HPF 0 - FEW [6770] UA LEUK EST 250 H Burton/uL NEG - 74 [70] Eval: 25 Burton/uL: Trace Eval: 75 Burton/uL: 1+ Eval: 250 Burton/uL: 2+ Eval: 500 Burton/uL: 3+ Comment: Specimen reflexed to culture due to increased WBCs. Report Released Date/Time: Jul 13, 2020@08:54 Provider: KAREN PARKINSON Specimen: SERUM. [facility] [id number] Specimen Collection Date: Jul 13, 2020@08:01 Test name Result units Ref. range Site Code GLUCOSE (FV) 164 H mg/dL 70 - 110 [70] UREA NITROGEN (FV) 26 H mg/dL 6 - 20 [70] CREATININE (FV) 1.39 H mg/dL .61 - 1.24 [70] eGFR 49 [70] Eval: eGFR units reported as mL/min/1.73 square meters. Individuals with GFR<60 Eval: mL/min/1.73 square meters for 3 months are classified as having chronic Eval: kidney disease. SODIUM (FV) 135 L mmol/L 136 - 145 [6770] POTASSIUM (FV) 3.7 mmol/L 3.5 - 5.1 [6770] CHLORIDE (FV) 101 mmol/L 98 - 107 [6770] CO2 (FV) 22 mmol/L 21 - 32 [6770] CALCIUM (FV) 9.0 mg/dL 8.9 - 10.3 [6770] TOTAL PROTEIN (FV) 7.8 g/dL 6.1 - 7.9 [6770] ALBUMIN (FV) 3.5 g/dL 3.4 - 5.0 [6770] AST (FV) 31 U/L 15 - 37 [6770] ALT (FV) 30 U/L 0 - 63 [6770] ALK. PHOS. (FV) 45 U/L 32 - 126 [6770] TOTAL BILIRUBIN (FV) 0.83 mg/dL 0.3 - 1.2 [6770] CHOLESTEROL, TOTAL (FV) 131 mg/dL 118 - 200 [6770] Eval: Interpretation: Eval: Eval: Low Risk Less than 200 mg/dL Eval: Borderline Risk 201 - 239 mg/dL Eval: High Risk 240 mg/dL and greater Eval: Eval: Eval: Before 04/17/2003: Eval: See Lipid Profile Interpretation on the [facility] Intranet: Eval: Eval: REFERENCES/LABORATORY:Interpretive Guidelines For Selected Tests/ Eval: Lipid Profile Interpretation TRIGLYCERIDE (FV) 105 mg/dL Ref: <=150 [6770] Eval: The Adult Treatment Panel of the Center for Disease Control (CDC) Eval: recommends triglyceride values for cardiovascular risk to be: Eval: Eval: Normal Less than 150 mg/dL Eval: Borderline High 150 - 199 mg/dL Eval: High 200 - 500 mg/dL Eval: Very High Greater than 500 mg/dL Eval: Eval: Test results based on a fasting specimen. HDL CHOLESTEROL (FV) 54 mg/dL Ref: >=40 [6770] Eval: The National Cholesterol Education Progran Adult Treatment Panel III Eval: (NCEP ATP III) Guidelines: Eval: Eval: Low Risk >=60 mg/dL Eval: Borderline risk 40 - 59 mg/dL Eval: High risk <40 mg/dL LDL CHOLESTEROL (CALCULATED) 56 Report Released Date/Time: Jul 13, 2020@08:39 Provider: KAREN PARKINSON Specimen: BLOOD. PENNYJonathan [id number] Specimen Collection Date: Jul 13, 2020@08:00 Test name Result units Ref. range Site Code Glyco Hgb A1C 6.3 H % 4.2 - 5.8 [70] Report Released Date/Time: Jul 13, 2020@08:15 Provider: KAREN PARKINSON Specimen: BLOOD. PENNYJonathan [id number] Specimen Collection Date: Jul 13, 2020@08:00 Test name Result units Ref. range Site Code WBC (FV) 7.8 K/cmm 3.8 - 10.6 [70] RBC (FV) 4.31 L M/cmm 4.4 - 5.9 [70] HGB (FV) 14.1 g/dL 13 - 18 [70] HCT (FV) 41.0 % 40 - 52 [70] MCV (FV) 95.1 fL 80 - 100 [70] MCH (FV) 32.6 pg 26 - 34 [70] MCHC (FV) 34.3 g/dL 32 - 36 [70] RDW (FV) 13.3 % 11.5 - 14.5 [70] PLT (FV) 185 K/cmm 150 - 440 [70] MPV (FV) 8.9 fL 7.4 - 10.4 [70] NE% (FV) 62.5 % Ref: SEE ABSOLUTE # [70] Eval: Percent auto differential is for informational purposes only. Eval: No established reference ranges reported. NE# (FV) 4.9 K/cmm 2.4 - 7.6 [70] LY% (FV) 23.9 % Ref: SEE ABSOLUTE # [6770] LY# (FV) 1.9 K/cmm 1.0 - 4.8 [70] MO% (FV) 10.7 % Ref: SEE ABSOLUTE # [70] MO# (FV) 0.8 K/cmm 0.1 - 1.0 [70] EO% (FV) 2.3 % Ref: SEE ABSOLUTE # [70] EO# (FV) 0.2 K/cmm 0.0 - 0.4 [70] BA% (FV) 0.6 % Ref: SEE ABSOLUTE # [70] BA# (FV) 0.0 K/cmm 0.0 - 0.2 [70] Assessment 1. Type 2 diabetes--long-standing in [facility]. It is noted that the patient's hemoglobin A1c is 6.3%. He has multiple medical problems and lost nearly 40 pounds last year. Presently, he is taking glipizide 5 mg daily with chronic kidney disease stage III. It is recommended that he discontinue glipizide entirely. Limit intake of sweets and carbohydrates. Repeat labs in 3 months. 2. Atrial fibrillation--hemodynamically stable by history. Followed by cardiology. Continue beta chapin with Eliquis. Patient has an upcoming cardiology appointment. 3. Hypertension--historically controlled on Cozaar with hydrochlorothiazide. Continue current program. 4. Hyperlipidemia--stable on statin ther apy. 5. Hypothyroidism--currently on Synthroi d 0.075 mg daily. Regrettably, we do not have current thyroid function tests. Will update with next laboratories. 6. Urinary tract infection--will treat w ith Macrobid 100 mg 1 by mouth twice a day 7 days Plan Discontinue glipizide Limit sweets and carbohydrates Macrobid 100 mg 1 by mouth twice a day 7 days Continue Cozaar 50 mg 1 daily Continue hydrochlorothiazide 25 mg 1 by mouth daily Continue metoprolol succinate 300 mg daily Continue digoxin Continue Zocor 40 mg 1 by mouth daily at bedtime Continue Synthroid 0.075 mg daily (needs updating of thyroid function indices) Continue Eliquis 5 mg by mouth twice a day Follow up with Specialty providers and PCP as directed Obtain CBC, hepatic/renal profile, lipid panel, hemoglobin A1c, free T4, TSH, UA for microalbumin and UA in 3 months followed by a return appointment Time spent 28 minutes (Patient has been instructed to go to [facility] Emergency Room or to seek care elsewhere. FINANCIAL DISCLAIMER was read to caller ( ) Yes ( ) Not Applicable) FINANCIAL DISCLAIMER: "This is not an authorization for VA Payment" and also "Have hospital contact the nearest [place] Facility for transfer upon stabilization". /zay/ MD Fredo CHOPRA Primary Care Physician Signed: 07/20/2020 09:05 [facility]ARKIN[facility]
--- OUTSIDE RECORDS SUMMARY | 2021-02-10 13:53 | XMS REPORT | Encounter Summary ---
[facility] Address Unknown Phone Unavailable Care Team Providers Care Producer Name Role Phone KAREN PARKINSON PCP Unavailable [...] (WNR) PRESCRIPTION (WNR) Jul 12, 2006 (WNR) [id number] ANGELA HOPKINS PATIENT MEDICARE (WNR) MEDICARE (M) PART A Jul 12, 2006 PART A [id number] ANGELA HOPKINS PATIENT MEDICARE (WNR) MEDICARE (M) PART B Jul 12, 2006 PART B [id number] ANGELA HOPKINS PATIENT MEDICARE (WNR) MEDICARE (M) PART A Jul 12, 2006 PART A [id number] A [phone] ANGELA HOPKINS PATIENT MEDICARE (WNR) MEDICARE (M) PART B Jul 12, 2006 PART B [id number] A [phone] ANGELA HOPKINS PATIENT MEDICARE (WNR) MEDICARE (M) PART A Jul 12, 2006 PART A [id number] A [phone] ANGELA HOPKINS PATIENT MEDICARE (WNR) MEDICARE (M) PART B Jul 12, 2006 PART B [id number] [facility] [phone] ANGELA HOPKINS PATIENT [id number] FOR LIFE Jul 12, 2006 [facility] [id number] ANGELA HOPKINS PATIENT Selected Encounter This section includes the information on record at [place] for the Encounter. Date/Time Encounter Type Encounter Description Reason Provider Source Jul 15, 2020 08:23 AM Outpatient Encounter TELEPHONE PRIMARY CARE IHE Encounter Template Text not used by [place] Assessments - Encounter Diagnoses No Data Provided for This Section Plan of Treatment: Future Appointments (+ 6 months) and Future Tests (+/- 45 day s) The Plan of Treatment section includes future care activities for the patient fr om all [place] treatment facilities. This section includes future appointments and fu ture orders which are active, pending or scheduled. Future Appointments This section includes appointments that were scheduled t o occur 6 months from the date of the Encounter, up to a maximum of 20 appointme nts. The data comes from all [place] treatment facilities. Appointment Date/Time Appointment Type Appointment Facili ty Name Jul 20, 2020 08:30 AM AMBULATORY - MEDICINE [facility] Oct 12, 2020 09:30 AM AMBULATORY - NONE [facility] Oct 18, 2020 01:30 PM AMBULATORY - MEDICINE [facility] Surgical Procedures: All associated to the encounter No Data Provided for This Section Lab Results: +/- 30 days of the encounter This section includes the Chemistry and Hematology Lab R esults on record with [place] for the patient. Radiology Reports and Pathology Report s are provided separately, in subsequent sections. Lab Results This section contains the Chemistry/Hematology Results bonnie t were resulted 30 days before or 30 days after the date of the Encounter. Date/Time Source Result Type Result - Unit Interpretation Reference Range Comment Jul 13, 2020 08:00 AM [facility] MICROSCOPIC URINALYSIS S pecimen Type: URINE Comment: Specimen reflexed to culture due to increased WBCs. Ordering Provider: KAREN PARKINSON Report Released Date/Time: Apr 20, 2020 09:18 AM Reporting Lab: [address] [phone] Performing Lab: [address] [phone] UA WBC >50 /HPF H 0-5 UA BACTERIA Many /HPF 0-FEW UA SQUAM EPITHELIAL 1-5 /HPF 0-5 UA RBC 3-6 /HPF H 0-2 Jul 13, 2020 08:00 AM [facility] CBC Specimen Type: BLOOD No comment entered. Ordering Provider: KAREN PARKINSON Report Released Date/Time: Apr 20, 2020 09:18 AM Reporting Lab: [address] [phone] Performing Lab: [address] [phone] MPV (FV) 8.9 fL 7.4-10.4 RDW [...] K/cmm 0.0-0.2 Jul 13, 2020 08:00 AM [facility] RENAL+LIVER PROFILE Spec imen Type: SERUM No comment entered. Ordering Provider: KAREN PARKINSON Report Released Date/Time: Apr 20, 2020 09:18 AM Reporting Lab: [address] [phone] Performing Lab: [address] [phone] GLUCOSE (FV) 164 mg/dL H 70-110 ALBUMIN (FV) 3.5 g/dL 3.4-5.0 AST (FV) 31 U/L 15-37 TOTAL BILIRUBIN (FV) 0.83 mg/dL 0.3-1.2 CHLORIDE (FV) 101 mmol/L 98-107 TOTAL PROTEIN (FV) 7.8 g/dL 6.1-7.9 SODIUM (FV) 135 mmol/L L 136-145 POTASSIUM (FV) 3.7 mmol/L 3.5-5.1 CO2 (FV) 22 mmol/L 21-32 UREA NITROGEN (FV) 26 mg/dL H 6-20 CALCIUM (FV) 9.0 mg/dL 8.9-10.3 ALT () 30 U/L 0-63 ALK. PHOS. () 45 U/L 32-126 eGFR 49 CREATININE () 1.39 mg/dL H .61-1.24 Jul 13, 2020 08:00 AM [facility] URINALYSIS Specimen Type: URINE No comment entered. Ordering Provider: KAREN PARKINSON Report Released Date/Time: Apr 20, 2020 09:18 AM Reporting Lab: [address] [phone] Performing Lab: [address] [phone] UA COLOR STRAW COLORLESS-YELLOW UA SPEC [...] H NEG-74 Jul 13, 2020 08:00 AM [facility] LIPID PROFILE Specimen Type: SERUM No comment entered. Ordering Provider: KAREN PARKINSON Report Released Date/Time: Apr 20, 2020 09:18 AM Reporting Lab: [address] [phone] Performing Lab: [address] [phone] CHOLESTEROL, TOTAL (FV) 131 mg/dL 118-20 0 TRIGLYCERIDE (FV) 105 mg/dL <150 LDL CHOLESTEROL (CALCULATED) 56 HDL CHOLESTEROL (FV) 54 mg/dL >40 Jul 13, 2020 08:00 AM [facility] GLYCO HGB A1C Specimen Type: BLOOD No comment entered. Ordering Provider: KAREN PARKINSON Report Released Date/Time: Apr 20, 2020 09:18 AM Reporting Lab: [address] [phone] Performing Lab: [address] [phone] Glyco Hgb A1C 6.3 % H 4.2-5.8 Vital Signs: All taken on the encounter date No Data Provided for This Section Immunizations: All administered on the encounter date No Data Provided for This Section Social History: Smoking Status (Most current) and Tobacco Use (All prior to enco unter date) No Data Provided for This Section Advance Directives: All historical and current Section Date Range: From patient's date of to the date document was create d. This section includes ALL of a patient's completed or amen ded [place] Advance and Rescinded Directives. The entries below indicate that a direc tive exists for the patient, but an actual copy is not included with this docume nt. The data comes from all [place] facilities. Date Advance Directives Provider Source Jun [...] the Encounter. The data comes from all [place] treatment facilities. Date/Time Pathology Report Provider Source Jul 13, 2020 09:04 AM LR MICROBIOLOGY REPORT: Accession [UID]: [id number] [[id number]] Received: Jul 13, 2020@13:02 Collection sample: URINE MICROBIOLOGY Collection date: Jul 13, 2020 09:04 Site/Specimen: URINE Provider: KAREN PARKINSON Test(s) ordered: CULTURE, URINE................ completed: Jul 15, 2020 09:24 * BACTERIOLOGY FINAL REPORT => Jul 15, 2020 09:26 TECH CODE: [id number] CULTURE RESULTS: ESCHERICHIA COLI - Quantity: >100,000 [...] =--=--=--=--=--=--=--=--=--=--=--=--=--=--=--=--=--=--=--=--=--=--=--=--=--=-- Performing Laboratory: Bacteriology Report Performed By: [facility] [CLIA# [id number]] [address] [facility] [place] [address] [place] [facility] Encounter Notes: All associated encounter notes This section contains the clinical notes associated to the Encounter. Date/Time Encounter Note(s) Provider Source Jul 15, 2020 08:25 AM TELEPHONE ENCOUNTER NOTE: LOCAL TITLE: TELECARE STANDARD TITLE: TELEPHONE ENCOUNTER NOTE DATE OF NOTE: JUL 15, 2020@08:25 ENTRY DATE: JUL 15, 2020@08:25:30 AUTHOR: CAT TORRES COSIGNER: URGENCY: STATUS: COMPLETED TELECARE Has ADDENDA PATIENT NAME: ANGELA HOPKINS SSN: [id number] FUTURE APPOINTMENTS: Jul@08:30 [facility] TM 1 PATIENT'S HOME PHONE: REASON FOR CALL: to secure offered apt type d/t COVID-19 FOLLOW UP: Unsuccessful attempt to reach patient regarding 07/20/20 apt w/fasting labs; HIPPA compliant VM left w/instruction to enter [place] [phone] for VEText on smart phone and remain in vehicle until a response is received to enter the building; cv19 building entry instructions provided for labs; nothing to eat or drink after midnight; AM meds w/blk coffee or water only; Tm 1 contact info [place] [phone]; Unable to conf COVID19 screen; instructions for mask requirement to enter building, applicable clinical reminders, allergies, or HIPPA at this time; patient to disregard letter and/or auto VM/text confirming (Patient has been instructed to go to [facility] Emergency Room or to seek care elsewhere. FINANCIAL DISCLAIMER was read to caller ( ) Yes ( x) Not Applicable) FINANCIAL DISCLAIMER: "This is not an authorization for VA Payment" and also "Have hospital contact the nearest [place] Facility for transfer upon stabilization". /zay/ CAT TORRES LPN PRIMARY CARE SERVICE Signed: 07/15/2020 08:26 07/15/2020 ADDENDUM STATUS: COMPLETED [place] returned call in regards to apt. stated he would like to convert apt to a Tele Visit. can be reached at /es/ [facility] Signed: 07/15/2020 11:23 Receipt Acknowledged By: * AWAITING SIGNATURE * CAT TORRES [place] [place] [facility]
--- OUTSIDE RECORDS SUMMARY | 2021-02-10 13:53 | XMS REPORT | Encounter Summary ---
Author Author Department [facility] ANGELA ma Organization [facility] Address Unknown Phone Unavailable Care Team Providers Care Director Integrated Name Role Phone KAREN PARKINSON PCP Unavailable Insurance Providers: All historical and current Section Date Range: From patient's date of to the date document was create d. This section includes the names of all active insurance providers for the sandrita lylesAniyah Insurance Provider Type of Coverage Plan Name Start of Policy Co verage End of Policy Coverage Group Number Member ID Insurance Provider's Telephone N umber Policy Randall's Name Patient's Relationship to Policy Randall [employer] (WNR) PRESCRIPTION (WNR) Jul 12, 2006 (WNR) [id number] ANGELA HOPKINS PATIENT MEDICARE (WNR) MEDICARE (M) PART A Jul 12, 2006 PART A [id number] ANGELA HOPKINS PATIENT MEDICARE (WNR) MEDICARE (M) PART B Jul 12, 2006 PART B [id number] ANGELA HOPKINS PATIENT MEDICARE (WNR) MEDICARE (M) PART A Jul 12, 2006 PART A [id number] A [phone] ANGELA HOPKINS PATIENT MEDICARE (WNR) MEDICARE (M) PART B Jul 12, 2006 PART B [id number] A [phone] ANGELA HOPKINS PATIENT MEDICARE (WNR) MEDICARE (M) PART A Jul 12, 2006 PART A [id number] A [phone] ANGELA HOPKINS PATIENT MEDICARE (WNR) MEDICARE (M) PART B Jul 12, 2006 PART B [phone] ANGELA HOPKINS PATIENT [id number] FOR LIFE Jul 12, 2006 [facility] [id number] ANGELA HOPKINS PATIENT Selected Encounter This section includes the [place] for the Encounter. Date/Time Encounter Type Encounter Description Reason Provider Source Jul 16, 2020 02:12 PM Outpatient Encounter ADMIN PAT ACTIVTIES (NEO NCT) IHE Encounter Template Text not used by [place] Assessments - Encounter Diagnoses No Data Provided for This Section Plan of Treatment: Future Appointments (+ 6 months) and Future Tests (+/- 45 day s) The Plan of Treatment section includes future care activities for the patient fr om all [place] treatment facilities. This section includes future appointments and fu ture orders which are active, pending or scheduled. Future Appointments This section includes appointments that were scheduled t o occur 6 months from the date of the Encounter, up to a maximum of 20 appointme nts. The data comes from all [place] treatment facilities. Appointment Date/Time Appointment Type Appointment Facili ty Name Jul 20, 2020 08:30 AM AMBULATORY - MEDICINE [facility] Oct 12, 2020 09:30 AM AMBULATORY - NONE [facility] Oct 18, 2020 01:30 PM AMBULATORY - MEDICINE [facility] Surgical Procedures: All associated to the encounter No Data Provided for This Section Lab Results: +/- 30 days of the encounter This section includes the Chemistry and Hematology Lab R esults on record with [place] for the patient. Radiology Reports and Pathology Report s are provided separately, in subsequent sections. Lab Results This section contains the Chemistry/Hematology Results bonnie t were resulted 30 days before or 30 days after the date of the Encounter. Date/Time Source Result Type Result - Unit Interpretation Reference Range Comment Jul 13, 2020 08:00 AM [facility] MICROSCOPIC URINALYSIS S pecimen Type: URINE Comment: Specimen reflexed to culture due to increased WBCs. Ordering Provider: KAREN PARKINSON Report Released Date/Time: Apr 20, 2020 09:18 AM Reporting Lab: [address] [phone] Performing Lab: [address] [phone] UA WBC >50 /HPF H 0-5 UA BACTERIA Many /HPF 0-FEW UA SQUAM EPITHELIAL 1-5 /HPF 0-5 UA RBC 3-6 /HPF H 0-2 Jul 13, 2020 08:00 AM [facility] CBC Specimen Type: BLOOD No comment entered. Ordering Provider: KAREN PARKINSON Report Released Date/Time: Apr 20, 2020 09:18 AM Reporting Lab: [address] [phone] Performing Lab: [address] [phone] MPV (FV) 8.9 fL 7.4-10.4 RDW [...] K/cmm 0.0-0.2 Jul 13, 2020 08:00 AM [facility] RENAL+LIVER PROFILE Spec imen Type: SERUM No comment entered. Ordering Provider: KAREN PARKINSON Report Released Date/Time: Apr 20, 2020 09:18 AM Reporting Lab: [address] [phone] Performing Lab: [address] [phone] GLUCOSE (FV) 164 mg/dL H 70-110 [...] H .61-1.24 Jul 13, 2020 08:00 AM [facility] URINALYSIS Specimen Type: URINE No comment entered. Ordering Provider: KAREN PARKINSON Report Released Date/Time: Apr 20, 2020 09:18 AM Reporting Lab: [address] [phone] Performing Lab: [address] [phone] UA COLOR STRAW COLORLESS-YELLOW UA SPEC [...] H NEG-74 Jul 13, 2020 08:00 AM [facility] LIPID PROFILE Specimen Type: SERUM No comment entered. Ordering Provider: KAREN PARKINSON Report Released Date/Time: Apr 20, 2020 09:18 AM Reporting Lab: [address] [phone] Performing Lab: [address] [phone] CHOLESTEROL, TOTAL (FV) 131 mg/dL 118-20 0 TRIGLYCERIDE (FV) 105 mg/dL <150 LDL CHOLESTEROL (CALCULATED) 56 HDL CHOLESTEROL (FV) 54 mg/dL >40 Jul 13, 2020 08:00 AM [facility] GLYCO HGB A1C Specimen Type: BLOOD No comment entered. Ordering Provider: KAREN PARKINSON Report Released Date/Time: Apr 20, 2020 09:18 AM Reporting Lab: [address] [phone] Performing Lab: [address] [phone] Glyco Hgb A1C 6.3 % H [...] docume nt. The data comes from all [place] facilities. Date Advance Directives Provider Source Jun [...] the Encounter. The data comes from all [place] treatment facilities. Date/Time Pathology Report Provider Source Jul 13, 2020 09:04 AM LR MICROBIOLOGY REPORT: Accession [UID]: [id number] [[id number]] Received: Jul 13, 2020@13:02 Collection sample: URINE MICROBIOLOGY Collection date: Jul 13, 2020 09:04 Site/Specimen: URINE Provider: KAREN PARKINSON Test(s) ordered: CULTURE, URINE................ completed: Jul 15, 2020 09:24 * BACTERIOLOGY FINAL REPORT => Jul 15, 2020 09:26 TECH CODE: [id number] CULTURE RESULTS: ESCHERICHIA COLI - Quantity: >100,000 [...] Laboratory: Bacteriology Report Performed By: [facility] [CLIA# [id number]] [address] [facility] [place] [place] [address] [place] [facility] Encounter Notes: All associated encounter notes This section contains the clinical notes associated to the Encounter. Date/Time Encounter Note(s) Provider Source Jul 16, 2020 02:13 PM ADMINISTRATIVE NOTE: LOCAL TITLE: ADMINISTRATIVE NOTE STANDARD TITLE: ADMINISTRATIVE NOTE DATE OF NOTE: JUL 16, 2020@14:13 ENTRY DATE: JUL 16, 2020@14:13:12 AUTHOR: ELIAS NEAL COSIGNER: URGENCY: STATUS: COMPLETED (COVID-19) Screen DIAGNOSIS AND TESTING STATUS: Has been diagnosed with COVID-19: () Yes* Date: (*No Further Screening Required) (x) No (Continue Screening) Comment(s): Is waiting for COVID-19 test results: () Yes (Continue Screening) (x) No (Continue Screening) Comment: SCREEN: Signs and Symptoms: a. Fever: () Yes (x) No Comment(s): b. New or worsening cough or shortness of breath: () Yes Check all that apply: () Cough () Shortness of breath (x) No Comment(s): c. Any cold or flu-like symptoms: () Yes Check all that apply: () Cold like symptoms () Flu-like symptoms (x) No Comment(s): d. New onset diarrhea, nausea or vomiting: () Yes Check all that apply: () Diarrhea () Nausea () Vomiting (x) No Comment(s): e. New onset headache, loss of taste or loss of smell () Yes Check all that apply: () Headache () Loss of taste () Loss of smell (x) No Comment(s): EXPOSURE: Exposure within the last two weeks to someone with COVID-19: () Yes (x) No Comment(s): SCREEN RESULT: Any symptom or exposure= positive screen () POSITIVE SCREEN: Patient has a Posit camille symptom and/or exposure.(FOLLOW-UP REQUIRED) (x) Negative Screen /es/ ELIAS NEAL [facility] Signed: 07/16/2020 14:13 ELIAS NEAL [facility] Jul 16, 2020 02:12 PM ADMINISTRATIVE NOTE: LOCAL TITLE: HIPAA PRIVACY RELEASE STANDARD TITLE: ADMINISTRATIVE NOTE DATE OF NOTE: JUL 16, 2020@14:12 ENTRY DATE: JUL 16, 2020@14:12:22 AUTHOR: ELIAS NEAL EXP COSIGNER: URGENCY: STATUS: COMPLETED Verbal consent obtained. Date: Jul 16, 2020 This release is in effect for a period of 1 year. The following type of information may be discussed: appointment information, lab results, plan of care, treatment options, test results, condition , diagnosis, list of medications, address/phone number/emergency contact in case home care is to be provided People authorized to receive above information: Sasha Montoya) I give permission to provide medical information, my home address, and my phone number in the coordination of my home health care: YES Private MD Dr. Christophe Kennedy MD [facility] [address] [phone] FAX I give permission for message (including medical information) to be left on my answering machine: Yes VLER Release of Info (RAE) (Form [id number]): Signed /zay/ [facility] Signed: 07/16/2020 14:13 ELIAS NEAL [facility]
--- OUTSIDE RECORDS SUMMARY | 2021-02-10 13:53 | XMS REPORT | Encounter Summary ---
Author Author Department [facility] ANGELA ma Organization [facility] Address Unknown Phone Unavailable Care Team Providers Care Air Conditioning Coil Assembler Name Role Phone KAREN PARKINSON PCP Unavailable [...] (WNR) PRESCRIPTION (WNR) Jul 12, 2006 (WNR) [id number] ANGELA HOPKINS PATIENT MEDICARE (WNR) MEDICARE (M) PART A Jul 12, 2006 PART A [id number] ANGELA HOPKINS PATIENT MEDICARE (WNR) MEDICARE (M) PART B Jul 12, 2006 PART B [id number] ANGELA HOPKINS PATIENT MEDICARE (WNR) MEDICARE (M) PART A Jul 12, 2006 PART A [id number] A [id number] ANGELA HOPKINS PATIENT MEDICARE (WNR) MEDICARE (M) PART B Jul 12, 2006 PART B [id number] A [phone] ANGELA HOPKINS PATIENT MEDICARE (WNR) MEDICARE (M) PART A Jul 12, 2006 PART A [id number] A [phone] ANGELA HOPKINS PATIENT MEDICARE (WNR) MEDICARE (M) PART B Jul 12, 2006 PART B [id number] ANGELA HOPKINS PATIENT [id number] FOR LIFE Jul 12, 2006 [facility] [id number] ANGELA HOPKINS PATIENT Selected Encounter This section includes the information on record at [place] for the Encounter. Date/Time Encounter Type Encounter Description Reason Provider Source Jul 15, 2020 11:23 AM Outpatient Encounter ADMIN PAT ACTIVTIES (NEO NCT) IHE Encounter Template Text not used by [place] Assessments - Encounter Diagnoses No Data Provided for This Section Plan of Treatment: Future Appointments (+ 6 months) and Future Tests (+/- 45 day s) The Plan of Treatment section includes future care activities for the patient fr om all [place] treatment facilities. This section includes future appointments and fu ture orders which are active, pending or scheduled. Future Appointments This section includes appointments that were scheduled t o occur 6 months from the date of the Encounter, up to a maximum of 20 appointme nts. The data comes from all [place] treatment facilities. Appointment Date/Time Appointment Type Appointment Facili ty Name Jul 20, 2020 08:30 AM AMBULATORY - MEDICINE [facility] Oct 12, 2020 09:30 AM AMBULATORY - NONE [facility] Oct 18, 2020 01:30 PM AMBULATORY - MEDICINE [facility] Surgical Procedures: All associated to the encounter No Data Provided for This Section Lab Results: +/- 30 days of the encounter This section includes the Chemistry and Hematology Lab R esults on record with [place] for the patient. Radiology Reports and Pathology Report s are provided separately, in subsequent sections. Lab Results This section contains the Chemistry/Hematology Results bonnie t were resulted 30 days before or 30 days after the date of the Encounter. Date/Time Source Result Type Result - Unit Interpretation Reference Range Comment Jul 13, 2020 08:00 AM [facility] MICROSCOPIC URINALYSIS S pecimen Type: URINE Comment: Specimen reflexed to culture due to increased WBCs. Ordering Provider: KAREN PARKINSON Report Released Date/Time: Apr 20, 2020 09:18 AM Reporting Lab: [address] [phone] Performing Lab: [address] [phone] UA WBC >50 /HPF H 0-5 UA BACTERIA Many /HPF 0-FEW UA SQUAM EPITHELIAL 1-5 /HPF 0-5 UA RBC 3-6 /HPF H 0-2 Jul 13, 2020 08:00 AM [facility] CBC Specimen Type: BLOOD No comment entered. Ordering Provider: KAREN PARKINSON Report Released Date/Time: Apr 20, 2020 09:18 AM Reporting Lab: [address] [phone] Performing Lab: [address] [phone] MPV (FV) 8.9 fL 7.4-10.4 RDW [...] K/cmm 0.0-0.2 Jul 13, 2020 08:00 AM [facility] RENAL+LIVER PROFILE Spec imen Type: SERUM No comment entered. Ordering Provider: KAERN PARKINSON Report Released Date/Time: Apr 20, 2020 09:18 AM Reporting Lab: [address] [phone] Performing Lab: [address] [phone] GLUCOSE (FV) 164 mg/dL H 70-110 [...] H .61-1.24 Jul 13, 2020 08:00 AM [facility] URINALYSIS Specimen Type: URINE No comment entered. Ordering Provider: KAREN PARKINSON Report Released Date/Time: Apr 20, 2020 09:18 AM Reporting Lab: [address] [phone] Performing Lab: [address] [phone] UA COLOR STRAW COLORLESS-YELLOW UA SPEC [...] H NEG-74 Jul 13, 2020 08:00 AM [facility] LIPID PROFILE Specimen Type: SERUM No comment entered. Ordering Provider: KAREN PARKINSON Report Released Date/Time: Apr 20, 2020 09:18 AM Reporting Lab: [address] [phone] Performing Lab: [address] [phone] CHOLESTEROL, TOTAL (FV) 131 mg/dL 118-20 0 TRIGLYCERIDE (FV) 105 mg/dL <150 LDL CHOLESTEROL (CALCULATED) 56 HDL CHOLESTEROL (FV) 54 mg/dL >40 Jul 13, 2020 08:00 AM [facility] GLYCO HGB A1C Specimen Type: BLOOD No comment entered. Ordering Provider: KAREN PARKINSON Report Released Date/Time: Apr 20, 2020 09:18 AM Reporting Lab: [address] [phone] Performing Lab: [address] [phone] Glyco Hgb A1C 6.3 % H [...] docume nt. The data comes from all [place] facilities. Date Advance Directives Provider Source Jun [...] the Encounter. The data comes from all [place] treatment facilities. Date/Time Pathology Report Provider Source Jul 13, 2020 09:04 AM [facility] MICROBIOLOGY REPORT: Accession [UID]: [id number] [[id number]] Received: Jul 13, 2020@13:02 Collection sample: URINE MICROBIOLOGY Collection date: Jul 13, 2020 09:04 Site/Specimen: URINE Provider: KAREN PARKINSON Test(s) ordered: CULTURE, URINE................ completed: Jul 15, 2020 09:24 * BACTERIOLOGY FINAL REPORT => Jul 15, 2020 09:26 TECH CODE: [id number] CULTURE RESULTS: ESCHERICHIA COLI - Quantity: >100,000 [...] =--=--=--=--=--=--=--=--=--=--=--=--=--=--=--=--=--=--=--=--=--=--=--=--=--=-- Performing Laboratory: Bacteriology Report Performed By: [facility] [CLIA# [id number]] [address] [facility] [place] [place] [address] [place] [facility] Encounter Notes: All associated encounter notes This section contains the clinical notes associated to the Encounter. Date/Time Encounter Note(s) Provider Source Jul 15, 2020 11:23 AM ADMINISTRATIVE NOTE: LOCAL TITLE: ADMINISTRATIVE NOTE STANDARD TITLE: ADMINISTRATIVE NOTE DATE OF NOTE: JUL 15, 2020@11:23 ENTRY DATE: JUL 15, 2020@11:24 AUTHOR: OLIVIA HOOK EXP COSIGNER: URGENCY: STATUS: COMPLETED Clinical Contact/Call Center Coronavirus Disease 2019 (COVID-19) Screen, harsha. , December 01, 2019 DIAGNOSIS AND TESTING STATUS: Has [place] been diagnosed with COVID-19: () Yes* Date: [...] with COVID-19: () Yes (x) No Comment(s): Screen Result: () POSITIVE symptom and requires further evaluation (x) Negative Screen () Screening could not be done due to not being present () [place] declined screening /zay/ [facility] Signed: 07/15/2020 11:25 OLIVIA HOOK [facility]
--- OUTSIDE RECORDS SUMMARY | 2021-02-10 13:56 | XMS REPORT | Encounter Summary ---
Author Author Department [facility] ANGELA ma Organization [facility] Address Unknown Phone Unavailable Care Team Providers Care Feed Mill Lab Technician Name Role Phone KAREN PARKINSON PCP Unavailable [...] (WNR) PRESCRIPTION (WNR) Jul 12, 2006 (WNR) [id number] ANGELA HOPKINS PATIENT MEDICARE (WNR) MEDICARE (M) PART A Jul 12, 2006 PART A [id number] ANGELA HOPKINS PATIENT MEDICARE (WNR) MEDICARE (M) PART B Jul 12, 2006 PART B [id number] ANGELA HOPKINS PATIENT MEDICARE (WNR) MEDICARE (M) PART A Jul 12, 2006 PART A [id number] A [id number] ANGELA HOPKINS PATIENT MEDICARE (WNR) MEDICARE (M) PART B Jul 12, 2006 PART B [id number] A [id number] ANGELA HOPKINS PATIENT MEDICARE (WNR) MEDICARE (M) PART A Jul 12, 2006 PART A [id number] A [phone] ANGELA HOPKINS PATIENT MEDICARE (WNR) MEDICARE (M) PART B Jul 12, 2006 PART B [id number] ANEGLA HOPKINS PATIENT [id number] FOR LIFE Jul 12, 2006 [facility] [id number] ANGELA HOPKINS PATIENT Selected Encounter This section includes the information on record at [place] for the Encounter. Date/Time Encounter Type Encounter Description Reason Provider Source Aug 31, 2020 02:23 PM Outpatient Encounter ADMIN PAT ACTIVTIES (NEO LAURENT) IHE Encounter Template Text not used by [place] Assessments - Encounter Diagnoses No Data Provided [...] 09:30 AM AMBULATORY - NONE [facility] Oct 18, 2020 01:30 PM AMBULATORY - MEDICINE [facility] Jan 18, 2021 08:45 AM AMBULATORY - NONE [facility] Feb 14, 2021 04:00 PM AMBULATORY - MEDICINE [facility] Surgical Procedures: All associated to the encounter No Data Provided for This Section Lab Results: +/- 30 days of the encounter No Data Provided for This Section Vital Signs: All taken on the encounter [...] of a patient's completed or amen ded [place] Advance and Rescinded Directives. The entries below indicate that a direc tive exists for the patient, but an actual copy is not included with this docume nt. The data comes from all [place] facilities. Date Advance Directives Provider Source Jun 07, 2011 ADVANCE DIRECTIVE TRENT LOZADA [place] Radiology Reports: +/- 30 days of the encounter No Data Provided for This Section Pathology Reports: +/- 30 days of the encounter No Data Provided for This Section Encounter Notes: All associated encounter notes This section contains the clinical notes associated to the Encounter. Date/Time Encounter Note(s) Provider Source Aug 31, 2020 02:23 PM ADMINISTRATIVE NOTE: LOCAL TITLE: COVID VACCINE SCHEDULING NOTE STANDARD TITLE: ADMINISTRATIVE NOTE DATE OF NOTE: AUG 31, 2020@14:23 ENTRY DATE: AUG 31, 2020@14:24:05 AUTHOR: MINERVA GLASGOW EXP COSIGNER: URGENCY: STATUS: COMPLETED Called patient to schedule COVID Vaccine appointment Spoke with patient/other: Vaccine given previously - no written/electronic documentation available The patient was instructed to bring a copy of their COVID-19 vaccine information to their next appointment so that this can be accurately recorded in their [place] medical record. /zay/ MINERVA GLASGOW [facility] ДМИТРИЙ Signed: 08/31/2020 14:24 MINERVA GLASGOW [facility]
--- OUTSIDE RECORDS SUMMARY | 2021-02-10 13:56 | XMS REPORT | Encounter Summary ---
Author [facility] Department [facility] Address Unknown Phone Unavailable Care Team Providers Care Aeronautical Design Engineer Name Role Phone KAREN PARKINSON PCP Unavailable [...] (WNR) PRESCRIPTION (WNR) Jul 12, 2006 (WNR) [id number] ANGELA HOPKINS PATIENT MEDICARE (WNR) MEDICARE (M) PART A Jul 12, 2006 PART A [id number] ANGELA HOPKINS PATIENT MEDICARE (WNR) MEDICARE (M) PART B Jul 12, 2006 PART B [id number] ANGELA HOPKINS PATIENT MEDICARE (WNR) MEDICARE (M) PART A Jul 12, 2006 PART A [id number] A [phone] ANGELA HOPKINS PATIENT MEDICARE (WNR) MEDICARE (M) PART B Jul 12, 2006 PART B [id number] A [phone] ANGELA HOPKINS PATIENT MEDICARE (WNR) MEDICARE (M) PART A Jul 12, 2006 PART A [id number] A [phone] ANGELA HOPKINS PATIENT MEDICARE (WNR) MEDICARE (M) PART B Jul 12, 2006 PART B [id number] [facility] [phone] ANGELA HOPKINS PATIENT [id number] FOR LIFE Jul 12, 2006 [facility] [id number] ANGELA HOPKINS PATIENT Selected Encounter This section includes the information on record at [place] for the Encounter. Date/Time Encounter Type Encounter Description Reason Provider Source Jul 04, 2020 12:00 AM Outpatient Encounter EVENT (HISTORICAL) IHE Encounter Template Text not used by [place] Assessments - Encounter Diagnoses No Data Provided for This Section Plan of Treatment: Future Appointments (+ 6 months) and Future Tests (+/- 45 day s) The Plan of Treatment section includes future care activities for the patient fr om all [place] treatment facilities. This section includes future appointments and fu ture orders which are active, pending or scheduled. Future Appointments This section includes appointments that were scheduled t o occur 6 months from the date of the Encounter, up to a maximum of 20 appointme nts. The data comes from all [place] treatment facilities. Appointment Date/Time Appointment Type Appointment Facili ty Name Jul 13, 2020 08:30 AM AMBULATORY - NONE [facility] Jul 20, 2020 08:30 AM AMBULATORY - MEDICINE [facility] Oct 12, 2020 09:30 AM AMBULATORY NONE [facility] Oct 18, 2020 01:30 PM AMBULATORY - MEDICINE [facility] Surgical Procedures: All associated to the encounter No Data Provided for This Section Lab Results: +/- 30 days of the encounter This section includes the Chemistry and Hematology Lab R esults on record with [place] for the patient. Radiology Reports and Pathology Report s are provided separately, in subsequent sections. Lab Results This section contains the Chemistry/Hematology Results bonnie t were resulted 30 days before or 30 days after the date of the Encounter. Date/Time Source Result Type Result - Unit Interpretation Reference Range Comment Jul 13, 2020 08:00 AM [facility] MICROSCOPIC URINALYSIS S pecimen Type: URINE Comment: Specimen reflexed to culture due to increased WBCs. Ordering Provider: KAREN PARKINSON Report Released Date/Time: Apr 20, 2020 09:18 AM Reporting Lab: [address] [phone] Performing Lab: [address] [phone] UA WBC >50 /HPF H 0-5 UA BACTERIA Many /HPF 0-FEW UA SQUAM EPITHELIAL 1-5 /HPF 0-5 UA RBC 3-6 /HPF H 0-2 Jul 13, 2020 08:00 AM [facility] CBC Specimen Type: BLOOD No comment entered. Ordering Provider: KAREN PARKINSON Report Released Date/Time: Apr 20, 2020 09:18 AM Reporting Lab: [address] [phone] Performing Lab: [address] [phone] MPV (FV) 8.9 fL 7.4-10.4 RDW [...] K/cmm 0.0-0.2 Jul 13, 2020 08:00 AM [facility] RENAL+LIVER PROFILE Spec imen Type: SERUM No comment entered. Ordering Provider: KAREN PARKINSON Report Released Date/Time: Apr 20, 2020 09:18 AM Reporting Lab: [address] [phone] Performing Lab: [address] [phone] GLUCOSE (FV) 164 mg/dL H 70-110 [...] H .61-1.24 Jul 13, 2020 08:00 AM [facility] URINALYSIS Specimen Type: URINE No comment entered. Ordering Provider: KAREN PARKINSON Report Released Date/Time: Apr 20, 2020 09:18 AM Reporting Lab: [address] [phone] Performing Lab: [address] [phone] UA COLOR STRAW COLORLESS-YELLOW UA SPEC [...] H NEG-74 Jul 13, 2020 08:00 AM [facility] LIPID PROFILE Specimen Type: SERUM No comment entered. Ordering Provider: KAREN PARKINSON Report Released Date/Time: Apr 20, 2020 09:18 AM Reporting Lab: [address] [phone] Performing Lab: [place] [id number] [facility] [phone] CHOLESTEROL, TOTAL (FV) 131 mg/dL 118-20 0 TRIGLYCERIDE (FV) 105 mg/dL <150 LDL CHOLESTEROL (CALCULATED) 56 HDL CHOLESTEROL (FV) 54 mg/dL >40 Jul 13, 2020 08:00 AM [facility] GLYCO HGB A1C Specimen Type: BLOOD No comment entered. Ordering Provider: KAREN PARKINSON Report Released Date/Time: Apr 20, 2020 09:18 AM Reporting Lab: [address] [phone] Performing Lab: [address] [phone] Glyco Hgb A1C 6.3 % H 4.2-5.8 Vital Signs: All taken on the encounter date No Data Provided for This Section Immunizations: All administered on the encounter date This section contains immunizations associated to the Encounter. Immunization Series Date Issued Reaction Comments COVID-19 (MODERNA), MRNA, LNP-S, PF, 100 MCG/0.5 ML DOSE 2 Jul 04, 2020 Social History: Smoking Status (Most current) and Tobacco Use (All prior to enco unter date) No Data Provided for This Section Advance Directives: All historical and current Section Date Range: From patient's date of to the date document was create d. This section includes ALL of a patient's completed or amen ded [place] Advance and Rescinded Directives. The entries below indicate that a direc tive exists for the patient, but an actual copy is not included with this docume nt. The data comes from all [place] facilities. Date Advance Directives Provider Source Jun [...] the Encounter. The data comes from all [place] treatment facilities. Date/Time Pathology Report Provider Source Jul 13, 2020 09:04 AM [facility] MICROBIOLOGY REPORT: Accession [UID]: [id number] [[id number]] Received: Jul 13, 2020@13:02 Collection sample: URINE MICROBIOLOGY Collection date: Jul 13, 2020 09:04 Site/Specimen: URINE Provider: KAREN PARKINSON Test(s) ordered: CULTURE, URINE................ completed: Jul 15, 2020 09:24 * BACTERIOLOGY FINAL REPORT => Jul 15, 2020 09:26 TECH CODE: [id number] CULTURE RESULTS: ESCHERICHIA COLI - Quantity: >100,000 [...] Laboratory: Bacteriology Report Performed By: [facility] [CLIA# [id number]] [address] [facility]. [place] [address] [place] [facility] Encounter Notes: All associated encounter notes No Data Provided for This Section
--- OUTSIDE RECORDS SUMMARY | 2021-02-10 13:56 | XMS REPORT | Encounter Summary ---
Author Author [facility] ANGELA ma Organization [facility] Address Unknown Phone Unavailable Care Team Providers Care Digital Printer Operator Name Role Phone KAREN PARKINSON PCP Unavailable [...] (WNR) PRESCRIPTION (WNR) Jul 12, 2006 (WNR) [id number] ANGELA HOPKINS PATIENT MEDICARE (WNR) MEDICARE (M) PART A Jul 12, 2006 PART A [id number] ANGELA HOPKINS PATIENT MEDICARE (WNR) MEDICARE (M) PART B Jul 12, 2006 PART B [id number] ANGELA HOPKINS PATIENT MEDICARE (WNR) MEDICARE (M) PART A Jul 12, 2006 PART A [id number] ANGELA HOPKINS PATIENT MEDICARE (WNR) MEDICARE (M) PART B Jul 12, 2006 PART B [id number] ANGELA HOPKINS PATIENT MEDICARE (WNR) MEDICARE (M) PART A Jul 12, 2006 PART A [id number] ANGELA HOPKINS PATIENT MEDICARE (WNR) MEDICARE (M) PART B Jul 12, 2006 PART B [id number] [facility] [phone] ANGELA HOPKINS PATIENT [id number] FOR LIFE Jul 12, 2006 [facility] [id number] ANGELA HOPKINS PATIENT Selected Encounter This section includes the information on record at [place] for the Encounter. Date/Time Encounter Type Encounter Description Reason Provider Source Oct 18, 2020 01:30 PM OFFICE O/P EST MOD 30-39 MIN PRIMARY CARE/ MEDICINE ICD-10-CM E11.8 Type 2 diabetes mellitus with unspecified complications with Provider Comments: Type 2 diabetes mellitus [facility] [id number] KAREN PARKINSON Jonathan Encounter Template Text not used by [place] Assessments - Encounter Diagnoses This section includes the primary and secondary diag noses documented for the Encounter. Date/Time Primary/Secondary Diagnosis Diagnosis Name Provider Source Oct 18, 2020 02:31 PM PRIMARY Type 2 diabetes me llitus with unspecified complications [facility] Oct 18, 2020 02:31 PM SECONDARY Chronic atrial fibrillatio n, unspecified PORTKAREN Castillo [facility] Oct 18, 2020 02:31 PM SECONDARY Essential (primary) hypertension PORTJonathan L [facility] Oct 18, 2020 02:31 PM SECONDARY Gastro-esophageal reflux disease without esophagitis KAREN PARKINSON [facility] Oct 18, 2020 02:31 PM SECONDARY Hyperlipidemia, unspecified PORT E,KAREN Flores [facility] Oct 18, 2020 02:31 PM SECONDARY Hypothyroidism, unspecified PORT E, Sandra [facility] Plan of Treatment: Future Appointments (+ [...] Date/Time Appointment Type Appointment Facili ty Name Jan 18, 2021 08:45 AM [facility] Feb 14, 2021 04:00 PM AMBULATORY - MEDICINE [facility] Surgical Procedures: All associated to [...] Result - Unit Interpretation Reference Range Comment Oct 12, 2020 09:07 AM [facility] CBC Speci men Type: BLOOD No comment entered. Ordering Provider: KAREN PARKINSON Report Released Date/Time: September 14, 2020 09:44 AM Reporting Lab: [address] [id number] Performing Lab: [address] [id number] MPV (FV) 9.5 fL 7.4-10.4 RDW (FV) 12.9 % 11.5-14.5 HCT (FV) 41.3 % 40-52 HGB (FV) 14.3 g/dL 13-18 PLT (FV) 198 K/cmm 150-440 WBC (FV) 5.9 K/cmm 3.8-10.6 RBC (FV) 4.38 M/cmm L 4.4-5.9 MCV (FV) 94.4 fL 80-100 MCH (FV) 32.7 pg 26-34 MCHC (FV) 34.6 g/dL 32-36 NE% (FV) 58.7 % SEE ABSOLUTE # NE# (FV) 3.5 K/cmm 2.4-7.6 LY% (FV) 26.0 % SEE ABSOLUTE # LY# (FV) 1.5 K/cmm 1.0-4.8 MO% (FV) 12.3 % SEE ABSOLUTE # MO# (FV) 0.7 K/cmm 0.1-1.0 EO% (FV) 2.2 % SEE ABSOLUTE # EO# (FV) 0.1 K/cmm 0.0-0.4 BA% (FV) 0.8 % SEE ABSOLUTE # BA# (FV) 0.0 K/cmm 0.0-0.2 Oct 12, 2020 09:07 AM [facility] HGB A1C Speci men Type: BLOOD No comment entered. Ordering Provider: KAREN PARKINSON Report Released Date/Time: September 14, 2020 09:44 AM Reporting Lab: [address] [facility] [phone] Performing Lab: [address] [place] [address] Glyco Hgb A1C 7.6 % H 4.2-5.8 Oct 12, 2020 09:07 AM [facility] LIPID PROFILE Speci men Type: SERUM No comment entered. Ordering Provider: KAREN PARKINSON Report Released Date/Time: September 14, 2020 09:44 AM Reporting Lab: [address] [facility] [phone] Performing Lab: [address] [facility] [phone] CHOLESTEROL, TOTAL (FV) 122 mg/dL 118-20 0 TRIGLYCERIDE (FV) 91 mg/dL <150 LDL CHOLESTEROL (CALCULATED) 51 HDL CHOLESTEROL (FV) 53 mg/dL >40 Oct 12, 2020 09:07 AM [facility] MICROALBUMIN, RANDOM URINE Specimen Type: URINE No comment entered. Ordering Provider: KAREN PARKINSON Report Released Date/Time: September 14, 2020 09:44 AM Reporting Lab: [address] [place] [address]35 Performing Lab: [address] [facility] [phone] MICROALBUMIN (FV) 1.9 mg/dL H <1.8 MA:CREAT RATIO (FV) 14 mcg/mgCrea <29 CREATININE (FV) 139.51 mg/dL Oct 12, 2020 09:07 AM [facility] RENAL+LIVER PROFILE Specimen Type: SERUM No comment entered. Ordering Provider: KAREN PARKINSON Report Released Date/Time: September 14, 2020 09:44 AM Reporting Lab: [address] [place] [address]35 Performing Lab: [address] [place] [address]1 [address]35 GLUCOSE (FV) 179 mg/dL H 70-110 ALBUMIN (FV) 3.6 g/dL 3.4-5.0 AST (FV) 33 U/L 15-37 TOTAL BILIRUBIN (FV) 1.10 mg/dL 0.3-1.2 CHLORIDE (FV) 100 mmol/L 98-107 TOTAL PROTEIN (FV) 8.3 g/dL H 6.1-7.9 SODIUM (FV) 137 mmol/L 136-145 POTASSIUM (FV) 3.7 mmol/L 3.5-5.1 CO2 (FV) 26 mmol/L 21-32 UREA NITROGEN (FV) 25 mg/dL H 6-20 CALCIUM (FV) 8.9 mg/dL 8.9-10.3 ALT () 33 U/L 0-63 ALK. PHOS. (FV) 43 U/L 32-126 eGFR 56 CREATININE () 1.24 mg/dL .61-1.24 Oct 12, 2020 09:07 AM [facility] TSH () Speci men Type: SERUM No comment entered. Ordering Provider: KAREN PARKINSON Report Released Date/Time: September 14, 2020 09:44 AM Reporting Lab: [facility] [address] [place] [id number] Performing Lab: [facility] [address] [place] [id number] TSH () 5.45 mcIU/mL H 0.45-5.33 Oct 12, 2020 09:07 AM [facility] URINALYSIS Speci men Type: URINE No comment entered. Ordering Provider: KAREN PARKINSON Report Released Date/Time: September 14, 2020 09:44 AM Reporting Lab: [address] [phone] Performing Lab: [address] [phone] UA COLOR YELLOW COLORLESS-YELLOW UA SPEC GRAV 1.022 1.005-1.035 UA PH 6.0 PH 5-9 UA NITRITE 2+ QUAL. Neg.-Neg UA UROBILINOGEN <2.0 mg/dL -Normal: <2 m g-dL UA APPEARANCE 2+ CLEAR UA GLUCOSE NORMAL QUAL NEG-TRACE UA PROTEIN - QUAL NEG UA BILI - QUAL NEG UA BLOOD 1+ QUAL NEG-TRACE UA KETONES - QUAL NEG-TRACE UA LEUK EST 500 Burton/uL H NEG-74 Oct 12, 2020 09:07 AM [facility] FREE T4 (FV) Speci men Type: SERUM No comment entered. Ordering Provider: KAREN PARKINSON Report Released Date/Time: September 14, 2020 09:44 AM Reporting Lab: [facility] [address] [place] [phone] Performing Lab: [facility] [address] [place] [address] FREE T4 (FV) 0.97 ng/dL 0.61-1.12 Oct 12, 2020 09:07 AM [facility] MICROSCOPIC URINALYSI S Specimen Type: URINE Comment: Specimen reflexed to culture due to increased WBCs. Ordering Provider: KAREN PARKINSON Report Released Date/Time: September 14, 2020 09:44 AM Reporting Lab: [address] [facility] [address] Performing Lab: [address] [place] [address]0 [address] UA WBC >50 /HPF H 0-5 UA BACTERIA Many /HPF 0-FEW UA RBC 21-25 /HPF H 0-2 Oct 12, 2020 09:07 AM [facility] FREE T3 (FV) Speci men Type: SERUM No comment entered. Ordering Provider: KAREN PARKINSON Report Released Date/Time: September 14, 2020 09:44 AM Reporting Lab: [facility] [address] [facility] [address] Performing Lab: [facility] [address] [facility] [address] FREE T3 (FV) 2.80 pg/mL 2.5-3.9 Vital Signs: All taken on the encounter date This section contains inpatient and outpatient Vital Signs collected on the date of the Encounter. Date/Time Temperature Pulse Blood Pressure Respiratory Rate SP02 Pa in Height Weight Body Mass Index Source Oct 18, 2020 04:04 PM 0 [facility] Oct 18, 2020 01:48 PM 133/72 mm[Hg] [facility] Oct 18, 2020 01:47 PM 95.7 F 96 /min 16 /min 98 % 0 69 in 280.1 lb 41 [facility] Immunizations: All administered on the encounter date No Data Provided for This Section Social History: Smoking Status (Most current) and Tobacco Use (All prior to enco unter date) This section includes the most current, and the historical, smoking and tobacco- related health factors from the [place] facility where the Encounter took place. Current Smoking Status This section includes the most current smoking, or tobacco -related health factor, from the [place] facility where the Encounter took place. Date/Time Current Smoking Status Comment Facility Oct 18, 2020 01:30 PM VA-TOBACCO NEVER USED [facility] Tobacco Use History This section includes a history of the smoking, or tobacco -related health factors, that were collected on or before the date of the Encoun ter. The data comes from the [place] facility where the Encounter took place. Date/Time Smoking Status/Tobacco Use Comment Facil ity Dec 20, 2018 11:41 AM V16 TOBACCO USE SCREEN [facility] Dec 20, 2018 11:41 AM VA-TOBACCO FORMER USER [facility] Dec 20, 2018 11:41 AM [place]-TO[place]AC[place] QUIT 15 YRS OR MORE [facility] Advance Directives: All historical and current Section Date Range: From patient's date of to the date document was create d. This section includes ALL of a patient's completed or amen ded [place] Advance and Rescinded Directives. The entries below [...] pathology services may have been completed after th e date of the Encounter, the report list also includes the Pathology Reports bonnie t were completed up to 30 days after date of the Encounter. The data comes from all [place] treatment facilities. Date/Time Pathology Report Provider Source Oct 12, 2020 09:07 AM LR MICROBIOLOGY REPORT: Accession [UID]: [id number] [[id number]] Received: Oct 12, 2020@15:20 Collection sample: URINE MICROBIOLOGY Collection date: Oct 12, 2020 09:07 Site/Specimen: URINE Provider: KAREN PARKINSON Test(s) ordered: CULTURE, URINE................ completed: Oct 14, 2020 11:22 * BACTERIOLOGY FINAL REPORT => Oct 14, 2020 11:23 TECH CODE: [id number] CULTURE RESULTS: ESCHERICHIA COLI - Quantity: >100,000 [...] =--=--=--=--=--=--=--=--=--=--=--=--=--=--=--=--=--=--=--=--=--=--=--=--=--=-- Performing Laboratory: Bacteriology Report Performed By: [facility] [CLIA# [id number]] [address] [facility] [place]OSSEL[place] PRINCE [address] [facility] Encounter Notes: All associated encounter notes This section contains the clinical notes associated to the Encounter. Date/Time Encounter Note(s) Provider Source Oct 18, 2020 04:17 PM NURSING NOTE: LOCAL TITLE: LEARNING EVALUATION STANDARD TITLE: NURSING NOTE DATE OF NOTE: OCT 18, 2020@16:17 ENTRY DATE: OCT 18, 2020@16:17:47 AUTHOR: CAT TORRES EXP COSIGNER: URGENCY: STATUS: COMPLETED Learning Evaluation (Nurse): LEARNING EVALUATION Patient is able to read. Patient is able to write. Patient reports college education level. Patient learns best by doing. Patient learns best by hearing. Patient learns best by reading. Patient learns best by visuals or watching video. CHARACTERISTICS of barriers/limitations to learning: Physical Barriers/Limitations: Decreased hearing. Comment: bi-lateral aides Decreased vision. Comment: readers Cognitive Barriers/Limitations: No cognitive barriers/limitations. Emotional Barriers/Limitations: No emotional barriers/limitations. Language Barriers/Limitations: No language barriers/limitations. COMMUNICATION NEEDS: Patient had no communication needs identified. Patient has good knowledge of condition. Patient is motivated to learn. Patient needs education/information regarding how/when to seek further care. Comment: tm1 contact info reviewed RESTORATIONISM PREFERENCE: No change to previously reported shinto preference: NONDENOMINATIONAL. Patient reports no cultural/shinto/spiritual health preferences. /nicolás TORRES LPN PRIMARY CARE SERVICE Signed: 10/18/2020 16:28 [facility] Oct 18, 2020 04:08 PM NURSING NOTE: LOCAL TITLE: TUBERCULOSIS SCREENING STANDARD TITLE: NURSING NOTE DATE OF NOTE: OCT 18, 2020@16:08 ENTRY DATE: OCT 18, 2020@16:13:23 AUTHOR: CAT TORRES EXP COSIGNER: URGENCY: STATUS: COMPLETED Tuberculosis Screen (Nurse): Patient received Tuberculosis Screening at this encounter. Patient has never been treated for Tuberculosis. Patient has never lived with anyone who was being treated for Tuberculosis. Patient has never had a positive TB skin test. Patient reports no cough at this time. /nicolás TORRES LPN PRIMARY CARE SERVICE Signed: 10/18/2020 16:17 [facility] Oct 18, 2020 02:31 PM MEDICATION MGT NOTE: LOCAL TITLE: MEDICATION RECONCILIATION (PROVIDER) STANDARD TITLE: MEDICATION MGT NOTE DATE OF NOTE: OCT 18, 2020@14:31 ENTRY DATE: OCT 18, 2020@14:31:29 AUTHOR: KAREN PARKINSON EXP COSIGNER: URGENCY: STATUS: COMPLETED Medication Reconciliation COMPLETED [...] Remote Allergy/ADR Data available for this patient NIKI SCHWAB [facility] No Known Allergies A list of active outpatient prescriptions dispensed from this local [place] and dispensed remotely from another [place] or [place] facility as well as local, pending and active inpatient orders, local clinic medications, locally documented non-VA medications, and local prescriptions that have or been discontinued in the past 90 days has been generated below. If the list for review does not include a component, then it was not applicable to this patient. Active Outpatient Medications (excluding Supplies): Pending Outpatient Medications Status 1) ALOGLIPTIN 12.5MG TAB TAKE ONE TABLET BY MOUTH ONCE PENDING DAILY FOR DIABETES 2) FAMOTIDINE 40MG TAB TAKE ONE TABLET BY MOUTH ONCE PENDING DAILY FOR STOMACH/REFLUX 3) LEVOTHYROXINE NA (SYNTHROID) 100MCG TAB TAKE ONE PENDING TABLET BY MOUTH EVERY MORNING FOR THYROID REPLACEMENT -TAKE WITH A FULL GLASS OF WATER 4) SULFAMETHOXAZOLE 800/TRIMETH 160MG TAB TAKE 1 TABLET PENDING (800/160MG) BY MOUTH TWICE DAILY WITH A MEAL [ANTIBIOTIC/ TAKE UNTIL ALL TAKEN] - WITH EXTRA WATER Active Non-VA Medications Status 1) Non-VA ALFUZOSIN HCL 10MG SA TAB 10MG MOUTH ONCE ACTIVE DAILY 2) Non-VA APIXABAN 5MG TAB 5MG MOUTH TWICE A DAY ACTIVE 3) Non-VA CALCIUM/MAGNESIUM TAB,EC 400/200 MOUTH ONCE ACTIVE DAILY 4) Non-VA DIGOXIN (LANOXIN) 0.125MG TAB 0.125MG MOUTH AT ACTIVE BEDTIME 5) Non-VA ESOMEPRAZOLE MAGNESIUM 40MG EC CAP 40MG MOUTH ACTIVE EVERY MORNING 6) Non-VA FINASTERIDE 5MG TAB *HD* 5MG MOUTH ONCE DAILY ACTIVE 7) Non-VA FISH OIL 2000MG 4000MG MOUTH ONCE DAILY ACTIVE 8) Non-VA HYDROCHLOROTHIAZIDE 25MG TAB 25MG MOUTH EVERY ACTIVE MORNING 9) Non-VA LEVOTHYROXINE NA (SYNTHROID) 25MCG TAB 0.025MG ACTIVE MOUTH EVERY MORNING 10) Non-VA LOSARTAN 50MG TAB 50MG MOUTH ONCE DAILY ACTIVE 11) Non-VA METOPROLOL SUCCINATE 100MG SA TAB,UD 100MG ACTIVE MOUTH ONCE DAILY 12) Non-VA MULTIVITAMIN CAP/TAB 1 CAP/TAB MOUTH ONCE ACTIVE DAILY 13) Non-VA POTASSIUM CL 20MEQ SA TAB (DISPERSIBLE) 10MEQ ACTIVE MOUTH ONCE DAILY 14) Non-VA PSYLLIUM ORAL,PWD 1 TABLESPOONFUL (15 mL) IN ACTIVE WATER OR JUICE & DRINK ONCE DAILY 15) Non-VA SIMVASTATIN 80MG TAB 40MG MOUTH AT BEDTIME ACTIVE 19 Total Medications Active Medications from Remote Data LEVOTHYROXINE NA 0.025MG TAB Sig: Quantity: 90 Days Supply: 90 2 refills remaining until Last filled 05/01/18 at [facility] (Active) LISINOPRIL 40MG TAB Sig: Quantity: 90 Days Supply: 90 1 refills remaining until Last filled 11/16/13 at [facility] (Active) METFORMIN HCL 850MG/PIOGLITAZONE HCL 15MG TAB Sig: Quantity: 180 Days Supply: 90 3 refills remaining until Last filled 11/20/08 at [facility] (Active) HYDROCHLOROTHIAZIDE 12.5MG TAB Sig: Quantity: 90 Days Supply: 90 1 refills remaining until Last filled 01/27/14 at [facility] (Active) SIMVASTATIN 40MG TAB Sig: Quantity: 90 Days Supply: 90 2 refills remaining until Last filled 02/25/17 at [facility] (Active) SIMVASTATIN 40MG TAB Sig: Quantity: 90 Days Supply: 90 2 refills remaining until Last filled 05/05/17 at [facility] (Active) SIMVASTATIN 40MG TAB Sig: Quantity: 90 Days Supply: 90 3 refills remaining until Last filled 04/21/10 at [facility] (Active) GATIFLOXACIN 0.5% SOLN,OPH Sig: Quantity: 2.5 Days Supply: 10 0 refills remaining until Last filled 11/23/14 at [facility] (Active) FINASTERIDE 5MG TAB Sig: Quantity: 90 Days Supply: 90 2 refills remaining until Last filled 05/06/15 at [facility] (Active) HYDROCHLOROTHIAZIDE 25MG TAB Sig: Quantity: 45 Days Supply: 90 1 refills remaining until Last filled 12/03/14 at [facility] (Active) ESOMEPRAZOLE MAGNESIUM 40MG CAP,EC Sig: Quantity: 90 Days Supply: 90 3 refills remaining until Last filled 12/17/08 at [facility] (Active) FINASTERIDE 5MG TAB Sig: Quantity: 30 Days Supply: 30 0 refills remaining until Last filled 09/05/11 at [facility] (Active) METFORMIN HCL 850MG/PIOGLITAZONE HCL 15MG TAB Sig: Quantity: 180 Days Supply: 90 1 refills remaining until Last filled 12/27/14 at [facility] (Active) FINASTERIDE 5MG TAB Sig: Quantity: 90 Days Supply: 90 1 refills remaining until Last filled 07/15/14 at [facility] (Active) GLIPIZIDE 5MG TAB,SA Sig: Quantity: 90 Days Supply: 90 3 refills remaining until Last filled 11/22/09 at [facility] (Active) LISINOPRIL 40MG TAB Sig: Quantity: 90 Days Supply: 90 3 refills remaining until Last filled 05/10/15 at [facility] (Active) POTASSIUM CHLORIDE 10MEQ CAP,SA Sig: Quantity: 30 Days Supply: 30 8 refills remaining until Last filled 03/15/09 at [id number] (Active) SIMVASTATIN 40MG TAB Sig: Quantity: 90 Days Supply: 90 2 refills remaining until Last filled 03/26/15 at [facility] (Active) VARDENAFIL HCL 20MG TAB Sig: Quantity: 12 Days Supply: 60 5 refills remaining until Last filled 12/16/07 at [facility] (Active) METFORMIN HCL 850MG/PIOGLITAZONE HCL 15MG TAB Sig: Quantity: 180 Days Supply: 90 2 refills remaining until Last filled 04/17/16 at [facility] (Active) OXYBUTYNIN CL 5MG TAB Sig: Quantity: 12 Days Supply: 6 5 refills remaining until Last filled 10/09/17 at [facility] (Active) PREDNISOLONE ACETATE 1% SUSP,OPH Sig: Quantity: 5 Days Supply: 21 0 refills remaining until Last filled 12/22/14 at [facility] (Active) ESOMEPRAZOLE MAGNESIUM 40MG CAP,EC Sig: Quantity: 30 Days Supply: 30 0 refills remaining until Last filled 09/05/11 at [facility] (Active) ESOMEPRAZOLE MAGNESIUM 40MG CAP,EC Sig: Quantity: 90 Days Supply: 90 3 refills remaining until Last filled 07/01/08 at [facility] (Active) GLIPIZIDE 5MG TAB,SA Sig: Quantity: 90 Days Supply: 90 3 refills remaining until Last filled 12/17/08 at [facility] (Active) ESOMEPRAZOLE MAGNESIUM 40MG CAP,EC Sig: Quantity: 90 Days Supply: 90 3 refills remaining until Last filled 01/14/08 at [facility] (Active) PANTOPRAZOLE NA 40MG TAB,EC Sig: Quantity: 90 Days Supply: 90 2 refills remaining until Last filled 09/22/16 at [facility] (Active) WARFARIN NA 5MG TAB Sig: Quantity: 30 Days Supply: 30 99 refills remaining until Last filled 09/22/09 at [id number] (Active) VARDENAFIL HCL 20MG TAB Sig: Quantity: 6 Days Supply: 30 5 refills remaining until Last filled 04/30/07 at [facility] (Active) GLIPIZIDE 5MG TAB,SA Sig: Quantity: 90 Days Supply: 90 3 refills remaining until Last filled 04/02/09 at [facility] (Active) METFORMIN HCL 850MG/PIOGLITAZONE HCL 15MG TAB Sig: Quantity: 180 Days Supply: 90 3 refills remaining until Last filled 01/30/10 at [facility] (Active) TERBINAFINE HCL 250MG TAB Sig: Quantity: 90 Days Supply: 90 0 refills remaining until Last filled 08/10/14 at [facility] (Active) ALFUZOSIN HCL 10MG TAB,SA Sig: Quantity: 90 Days Supply: 90 2 refills remaining until Last filled 12/25/16 at [facility] (Active) VARDENAFIL HCL 20MG TAB Sig: Quantity: 12 Days Supply: 60 5 refills remaining until Last filled 05/03/08 at [facility] (Active) POTASSIUM CHLORIDE 10MEQ CAP,SA Sig: Quantity: 90 Days Supply: 90 3 refills remaining until Last filled 08/30/17 at [facility] (Active) PANTOPRAZOLE NA 40MG TAB,EC Sig: Quantity: 90 Days Supply: 90 2 refills remaining until Last filled 11/02/18 at [facility] (Active) METFORMIN HCL 850MG/PIOGLITAZONE HCL 15MG TAB Sig: Quantity: 180 Days Supply: 90 3 refills remaining until Last filled 10/16/14 at [facility] (Active) SILDENAFIL CITRATE 100MG TAB Sig: Quantity: 12 Days Supply: 60 5 refills remaining until Last filled 11/04/18 at [facility] (Active) GLIPIZIDE 5MG TAB,SA Sig: Quantity: 90 Days Supply: 90 3 refills remaining until Last filled 05/06/15 at [facility] (Active) GLIPIZIDE 5MG TAB,SA Sig: Quantity: 90 Days Supply: 90 3 refills remaining until Last filled 09/09/16 at [facility] (Active) POTASSIUM CHLORIDE 10MEQ CAP,SA Sig: Quantity: 90 Days Supply: 90 3 refills remaining until Last filled 11/15/16 at [facility] (Active) POTASSIUM CHLORIDE 10MEQ CAP,SA Sig: Quantity: 30 Days Supply: 30 8 refills remaining until Last filled 12/17/08 at [id number] (Active) METFORMIN HCL 850MG/PIOGLITAZONE HCL 15MG TAB Sig: Quantity: 180 Days Supply: 90 3 refills remaining until Last filled 04/02/09 at [facility] (Active) FINASTERIDE 5MG TAB Sig: Quantity: 90 Days Supply: 90 3 refills remaining until Last filled 03/05/18 at [facility] (Active) METFORMIN HCL 850MG/PIOGLITAZONE HCL 15MG TAB Sig: Quantity: 180 Days Supply: 90 2 refills remaining until Last filled 07/31/15 at [facility] (Active) SIMVASTATIN 40MG TAB Sig: Quantity: 90 Days Supply: 90 3 refills remaining until Last filled 08/04/14 at [facility] (Active) GLIPIZIDE 5MG TAB,SA Sig: Quantity: 90 Days Supply: 90 3 refills remaining until Last filled 06/11/16 at [facility] (Active) TADALAFIL 20MG TAB Sig: Quantity: 18 Days Supply: 90 3 refills remaining until Last filled 01/16/09 at [facility] (Active) SIMVASTATIN 40MG TAB Sig: Quantity: 90 Days Supply: 90 2 refills remaining until Last filled 12/25/16 at [facility] (Active) METFORMIN HCL 850MG/PIOGLITAZONE HCL 15MG TAB Sig: Quantity: 180 Days Supply: 90 1 refills remaining until Last filled 03/09/15 at [facility] (Active) SILDENAFIL CITRATE 100MG TAB Sig: Quantity: 12 Days Supply: 60 3 refills remaining until Last filled 09/23/15 at [facility] (Active) FINASTERIDE 5MG TAB Sig: Quantity: 90 Days Supply: 90 2 refills remaining until Last filled 12/03/17 at [facility] (Active) APIXABAN 5MG TAB Sig: Quantity: 180 Days Supply: 90 1 refills remaining until Last filled 09/17/18 at [facility] (Active) ESOMEPRAZOLE MAGNESIUM 40MG CAP,EC Sig: Quantity: 45 Days Supply: 90 3 refills remaining until Last filled 05/07/14 at [facility] (Active) TAMSULOSIN HCL 0.4MG CAP Sig: Quantity: 90 Days Supply: 90 3 refills remaining until Last filled 09/25/11 at [facility] (Active) SIMVASTATIN 40MG TAB Sig: Quantity: 90 Days Supply: 90 3 refills remaining until Last filled 11/06/09 at [facility] (Active) VARDENAFIL HCL 20MG TAB Sig: Quantity: 12 Days Supply: 60 5 refills remaining until Last filled 12/17/08 at [facility] (Active) LISINOPRIL 40MG TAB Sig: Quantity: 90 Days Supply: 90 2 refills remaining until Last filled 07/19/15 at [facility] (Active) GLIPIZIDE 5MG TAB,SA Sig: Quantity: 90 Days Supply: 90 3 refills remaining until Last filled 02/21/10 at [facility] (Active) DIGOXIN 0.125MG TAB Sig: Quantity: 90 Days Supply: 90 2 refills remaining until Last filled 09/28/17 at [facility] (Active) SILDENAFIL CITRATE 100MG TAB Sig: Quantity: 12 Days Supply: 60 5 refills remaining until Last filled 10/27/16 at [facility] (Active) METFORMIN HCL 850MG/PIOGLITAZONE HCL 15MG TAB Sig: Quantity: 180 Days Supply: 90 3 refills remaining until Last filled 10/05/17 at [facility] (Active) FINASTERIDE 5MG TAB Sig: Quantity: 90 Days Supply: 90 2 refills remaining until Last filled 09/04/17 at [facility] (Active) POTASSIUM CHLORIDE 10MEQ CAP,SA Sig: Quantity: 90 Days Supply: 90 2 refills remaining until Last filled 04/17/16 at [facility] (Active) POTASSIUM CHLORIDE 10MEQ CAP,SA Sig: Quantity: 90 Days Supply: 90 2 refills remaining until Last filled 07/19/15 at [facility] (Active) LISINOPRIL 40MG TAB Sig: Quantity: 90 Days Supply: 90 3 refills remaining until Last filled 02/21/10 at [facility] (Active) DIGOXIN 0.125MG TAB Sig: Quantity: 90 Days Supply: 90 1 refills remaining until Last filled 06/21/14 at [facility] (Active) SIMVASTATIN 40MG TAB Sig: Quantity: 90 Days Supply: 90 3 refills remaining until Last filled 11/24/18 at [facility] (Active) TADALAFIL 20MG TAB Sig: Quantity: 18 Days Supply: 90 3 refills remaining until Last filled 03/21/09 at [facility] (Active) LISINOPRIL 40MG TAB Sig: Quantity: 90 Days Supply: 90 3 refills remaining until Last filled 09/01/14 at [facility] (Active) GLIPIZIDE 5MG TAB,SA Sig: Quantity: 90 Days Supply: 90 3 refills remaining until Last filled 11/25/14 at [facility] (Active) GLIPIZIDE 5MG TAB,SA Sig: Quantity: 90 Days Supply: 90 3 refills remaining until Last filled 02/05/15 at [facility] (Active) GLIPIZIDE 5MG TAB,SA Sig: Quantity: 90 Days Supply: 90 3 refills remaining until Last filled 10/18/08 at [facility] (Active) SIMVASTATIN 40MG TAB Sig: Quantity: 90 Days Supply: 90 2 refills remaining until Last filled 05/28/18 at [facility] (Active) METFORMIN HCL 1000MG/ROSIGLITAZONE MALEATE 2MG TAB Sig: Quantity: 180 Days Supply: 90 3 refills remaining until Last filled 03/20/07 at [facility] (Active) VARDENAFIL HCL 20MG TAB Sig: Quantity: 12 Days Supply: 60 5 refills remaining until Last filled 01/27/08 at [facility] (Active) SIMVASTATIN 40MG TAB Sig: Quantity: 90 Days Supply: 90 3 refills remaining until Last filled 01/21/10 at [facility] (Active) DIGOXIN 0.125MG TAB Sig: Quantity: 90 Days Supply: 90 1 refills remaining until Last filled 01/27/14 at [facility] (Active) SIMVASTATIN 40MG TAB Sig: Quantity: 90 Days Supply: 90 2 refills remaining until Last filled 08/27/18 at [facility] (Active) ESOMEPRAZOLE MAGNESIUM 40MG CAP,EC Sig: Quantity: 45 Days Supply: 90 4 refills remaining until Last filled 05/29/16 at [facility] (Active) SILDENAFIL CITRATE 100MG TAB Sig: Quantity: 12 Days Supply: 60 2 refills remaining until Last filled 03/24/16 at [facility] (Active) METFORMIN HCL 1000MG/ROSIGLITAZONE MALEATE 2MG TAB Sig: Quantity: 180 Days Supply: 90 3 refills remaining until Last filled 01/14/08 at [facility] (Active) ALFUZOSIN HCL 10MG TAB,SA Sig: Quantity: 90 Days Supply: 90 3 refills remaining until Last filled 12/12/15 at [facility] (Active) TAMSULOSIN HCL 0.4MG CAP Sig: Quantity: 30 Days Supply: 30 0 refills remaining until Last filled 09/05/11 at [facility] (Active) ALFUZOSIN HCL 10MG TAB,SA Sig: Quantity: 90 Days Supply: 90 2 refills remaining until Last filled 10/19/17 at [facility] (Active) WARFARIN NA 5MG TAB Sig: Quantity: 30 Days Supply: 30 99 refills remaining until Last filled 10/17/09 at [id number] (Active) AMOXICILLIN TRIHYDRATE 875MG/CLAVULANATE K 125MG TAB Sig: Quantity: 20 Days Supply: 10 0 refills remaining until Last filled 03/18/15 at [facility] (Active) HYDROCHLOROTHIAZIDE 12.5MG TAB Sig: Quantity: 90 Days Supply: 90 3 refills remaining until Last filled 09/01/14 at [facility] (Active) LISINOPRIL 40MG TAB Sig: Quantity: 90 Days Supply: 90 1 refills remaining until Last filled 06/21/14 at [facility] (Active) VARDENAFIL HCL 20MG TAB Sig: Quantity: 6 Days Supply: 30 5 refills remaining until Last filled 08/27/07 at [facility] (Active) VARDENAFIL HCL 20MG TAB Sig: Quantity: 6 Days Supply: 30 5 refills remaining until Last filled 06/12/07 at [facility] (Active) SILDENAFIL CITRATE 100MG TAB Sig: Quantity: 12 Days Supply: 60 5 refills remaining until Last filled 01/31/18 at [facility] (Active) GLIPIZIDE 5MG TAB,SA Sig: Quantity: 90 Days Supply: 90 3 refills remaining until Last filled 01/14/08 at [facility] (Active) LISINOPRIL 40MG TAB Sig: Quantity: 90 Days Supply: 90 4 refills remaining until Last filled 09/28/17 at [facility] (Active) POTASSIUM CHLORIDE 10MEQ CAP,SA Sig: Quantity: 90 Days Supply: 90 3 refills remaining until Last filled 05/10/15 at [facility] (Active) DIGOXIN 0.125MG TAB Sig: Quantity: 90 Days Supply: 90 0 refills remaining until Last filled 05/10/15 at [facility] (Active) SILDENAFIL CITRATE 100MG TAB Sig: Quantity: 12 Days Supply: 60 5 refills remaining until Last filled 02/25/17 at [facility] (Active) METFORMIN HCL 850MG/PIOGLITAZONE HCL 15MG TAB Sig: Quantity: 180 Days Supply: 90 3 refills remaining until Last filled 04/08/17 at [facility] (Active) METFORMIN HCL 850MG/PIOGLITAZONE HCL 15MG TAB Sig: Quantity: 180 Days Supply: 90 3 refills remaining until Last filled 02/07/14 at [facility] (Active) ESOMEPRAZOLE MAGNESIUM 40MG CAP,EC Sig: Quantity: 45 Days Supply: 90 3 refills remaining until Last filled 08/05/14 at [facility] (Active) SIMVASTATIN 40MG TAB Sig: Quantity: 90 Days Supply: 90 2 refills remaining until Last filled 07/12/17 at [facility] (Active) POTASSIUM CHLORIDE 10MEQ CAP,SA Sig: Quantity: 90 Days Supply: 90 3 refills remaining until Last filled 09/01/14 at [facility] (Active) VARDENAFIL HCL 20MG TAB Sig: Quantity: 6 Days Supply: 30 5 refills remaining until Last filled 03/13/07 at [facility] (Active) SIMVASTATIN 40MG TAB Sig: Quantity: 90 Days Supply: 90 3 refills remaining until Last filled 05/06/14 at [facility] (Active) ESOMEPRAZOLE MAGNESIUM 40MG CAP,EC Sig: Quantity: 45 Days Supply: 90 2 refills remaining until Last filled 03/26/15 at [facility] (Active) ESOMEPRAZOLE MAGNESIUM 40MG CAP,EC Sig: Quantity: 90 Days Supply: 90 3 refills remaining until Last filled 04/01/08 at [facility] (Active) LOTEPREDNOL ETABONATE 0.5%/TOBRAMYCIN 0.3% SUSP,OPTH Sig: Quantity: 5 Days Supply: 7 0 refills remaining until Last filled 08/04/08 at [id number] (Active) GLIPIZIDE 5MG TAB,SA Sig: Quantity: 90 Days Supply: 90 1 refills remaining until Last filled 03/13/07 at [facility] (Active) APIXABAN 5MG TAB Sig: Quantity: 180 Days Supply: 90 1 refills remaining until Last filled 12/21/17 at [facility] (Active) WARFARIN NA 5MG TAB Sig: Quantity: 90 Days Supply: 90 3 refills remaining until Last filled 09/04/16 at [facility] (Active) DIGOXIN 0.125MG TAB Sig: Quantity: 90 Days Supply: 90 3 refills remaining until Last filled 09/01/14 at [facility] (Active) DIGOXIN 0.125MG TAB Sig: Quantity: 90 Days Supply: 90 2 refills remaining until Last filled 12/27/17 at [facility] (Active) ALFUZOSIN HCL 10MG TAB,SA Sig: Quantity: 90 Days Supply: 90 2 refills remaining until Last filled 03/30/18 at [facility] (Active) ESOMEPRAZOLE MAGNESIUM 40MG CAP,EC Sig: Quantity: 45 Days Supply: 90 2 refills remaining until Last filled 01/13/15 at [facility] (Active) ALFUZOSIN HCL 10MG TAB,SA Sig: Quantity: 90 Days Supply: 90 2 refills remaining until Last filled 03/19/15 at [facility] (Active) SIMVASTATIN 40MG TAB Sig: Quantity: 90 Days Supply: 90 3 refills remaining until Last filled 11/01/14 at [facility] (Active) TADALAFIL 20MG TAB Sig: Quantity: 18 Days Supply: 90 3 refills remaining until Last filled 07/01/09 at [facility] (Active) METFORMIN HCL 850MG/PIOGLITAZONE HCL 15MG TAB Sig: Quantity: 180 Days Supply: 90 3 refills remaining until Last filled 06/22/08 at [facility] (Active) METFORMIN HCL 850MG/PIOGLITAZONE HCL 15MG TAB Sig: Quantity: 180 Days Supply: 90 3 refills remaining until Last filled 06/17/09 at [facility] (Active) LEVOTHYROXINE NA 0.025MG TAB Sig: Quantity: 30 Days Supply: 30 5 refills remaining until Last filled 11/17/17 at [facility] (Active) CEPHALEXIN 500MG CAP Sig: Quantity: 21 Days Supply: 7 0 refills remaining until Last filled 09/05/17 at [facility] (Active) SIMVASTATIN 40MG TAB Sig: Quantity: 90 Days Supply: 90 3 refills remaining until Last filled 02/21/14 at [facility] (Active) ALFUZOSIN HCL 10MG TAB,SA Sig: Quantity: 90 Days Supply: 90 2 refills remaining until Last filled 06/23/17 at [facility] (Active) FINASTERIDE 5MG TAB Sig: Quantity: 90 Days Supply: 90 2 refills remaining until Last filled 09/07/16 at [facility] (Active) ESOMEPRAZOLE MAGNESIUM 40MG CAP,EC Sig: Quantity: 90 Days Supply: 90 3 refills remaining until Last filled 10/21/09 at [facility] (Active) METFORMIN HCL 850MG/PIOGLITAZONE HCL 15MG TAB Sig: Quantity: 180 Days Supply: 90 3 refills remaining until Last filled 08/29/08 at [facility] (Active) WARFARIN NA 5MG TAB Sig: Quantity: 104 Days Supply: 90 3 refills remaining until Last filled 01/22/14 at [facility] (Active) FINASTERIDE 5MG TAB Sig: Quantity: 90 Days Supply: 90 3 refills remaining until Last filled 06/11/16 at [facility] (Active) LEVOTHYROXINE NA 0.025MG TAB Sig: Quantity: 30 Days Supply: 30 5 refills remaining until Last filled 08/18/17 at [facility] (Active) SILDENAFIL CITRATE 100MG TAB Sig: Quantity: 12 Days Supply: 60 3 refills remaining until Last filled 11/23/15 at [facility] (Active) METFORMIN HCL 850MG/PIOGLITAZONE HCL 15MG TAB Sig: Quantity: 180 Days Supply: 90 3 refills remaining until Last filled 09/07/09 at [facility] (Active) VARDENAFIL HCL 20MG TAB Sig: Quantity: 12 Days Supply: 60 5 refills remaining until Last filled 03/13/08 at [facility] (Active) GLIPIZIDE 5MG TAB,SA Sig: Quantity: 90 Days Supply: 90 3 refills remaining until Last filled 12/03/17 at [facility] (Active) GLIPIZIDE 5MG TAB,SA Sig: Quantity: 90 Days Supply: 90 3 refills remaining until Last filled 07/01/08 at [facility] (Active) OXYBUTYNIN CL 5MG TAB Sig: Quantity: 12 Days Supply: 6 5 refills remaining until Last filled 10/22/17 at [facility] (Active) GLIPIZIDE 5MG TAB,SA Sig: Quantity: 90 Days Supply: 90 3 refills remaining until Last filled 06/17/09 at [facility] (Active) SIMVASTATIN 40MG TAB Sig: Quantity: 90 Days Supply: 90 3 refills remaining until Last filled 08/18/16 at [facility] (Active) VARDENAFIL HCL 20MG TAB Sig: Quantity: 12 Days Supply: 60 5 refills remaining until Last filled 08/29/08 at [facility] (Active) GLIPIZIDE 5MG TAB,SA Sig: Quantity: 90 Days Supply: 90 3 refills remaining until Last filled 08/27/07 at [facility] (Active) HYDROCHLOROTHIAZIDE 12.5MG TAB Sig: Quantity: 90 Days Supply: 90 3 refills remaining until Last filled 06/21/14 at [facility] (Active) FINASTERIDE 5MG TAB Sig: Quantity: 90 Days Supply: 90 2 refills remaining until Last filled 11/26/14 at [facility] (Active) SILDENAFIL CITRATE 100MG TAB Sig: Quantity: 12 Days Supply: 60 5 refills remaining until Last filled 11/23/17 at [facility] (Active) METFORMIN HCL 850MG/PIOGLITAZONE HCL 15MG TAB Sig: Quantity: 180 Days Supply: 90 3 refills remaining until Last filled 02/01/09 at [facility] (Active) HYDROCHLOROTHIAZIDE 12.5MG CAP Sig: Quantity: 90 Days Supply: 90 3 refills remaining until Last filled 09/24/08 at [id number] (Active) POTASSIUM CHLORIDE 10MEQ CAP,SA Sig: Quantity: 30 Days Supply: 30 9 refills remaining until Last filled 11/20/08 at [id number] (Active) ALFUZOSIN HCL 10MG TAB,SA Sig: Quantity: 90 Days Supply: 90 3 refills remaining until Last filled 09/09/16 at [facility] (Active) WARFARIN NA 5MG TAB Sig: Quantity: 104 Days Supply: 90 3 refills remaining until Last filled 08/21/13 at [facility] (Active) DIGOXIN 0.125MG TAB Sig: Quantity: 90 Days Supply: 90 1 refills remaining until Last filled 11/16/13 at [facility] (Active) POTASSIUM CHLORIDE 10MEQ CAP,SA Sig: Quantity: 90 Days Supply: 90 1 refills remaining until Last filled 01/27/14 at [facility] (Active) DIGOXIN 0.125MG TAB Sig: Quantity: 90 Days Supply: 90 2 refills remaining until Last filled 01/01/17 at [facility] (Active) POTASSIUM CHLORIDE 10MEQ CAP,SA Sig: Quantity: 30 Days Supply: 30 8 refills remaining until Last filled 02/11/09 at [id number] (Active) SIMVASTATIN 40MG TAB Sig: Quantity: 90 Days Supply: 90 2 refills remaining until Last filled 01/12/15 at [facility] (Active) SILDENAFIL CITRATE 100MG TAB Sig: Quantity: 12 Days Supply: 60 2 refills remaining until Last filled 08/18/16 at [facility] (Active) LISINOPRIL 40MG TAB Sig: Quantity: 90 Days Supply: 90 3 refills remaining until Last filled 03/20/12 at [facility] (Active) SILDENAFIL CITRATE 100MG TAB Sig: Quantity: 12 Days Supply: 60 3 refills remaining until Last filled 08/11/15 at [facility] (Active) LISINOPRIL 40MG TAB Sig: Quantity: 90 Days Supply: 90 1 refills remaining until Last filled 01/27/14 at [facility] (Active) ALFUZOSIN HCL 10MG TAB,SA Sig: Quantity: 90 Days Supply: 90 3 refills remaining until Last filled 06/11/16 at [facility] (Active) DIGOXIN 0.125MG TAB Sig: Quantity: 90 Days Supply: 90 2 refills remaining until Last filled 03/30/18 at [facility] (Active) POTASSIUM CHLORIDE 10MEQ CAP,SA Sig: Quantity: 30 Days Supply: 30 8 refills remaining until Last filled 01/08/09 at [id number] (Active) SIMVASTATIN 40MG TAB Sig: Quantity: 90 Days Supply: 90 2 refills remaining until Last filled 09/18/17 at [facility] (Active) WARFARIN NA 5MG TAB Sig: Quantity: 30 Days Supply: 30 99 refills remaining until Last filled 09/15/08 at [id number] (Active) POTASSIUM CHLORIDE 10MEQ CAP,SA Sig: Quantity: 30 Days Supply: 30 10 refills remaining until Last filled 10/15/08 at [id number] (Active) FINASTERIDE 5MG TAB Sig: Quantity: 90 Days Supply: 90 1 refills remaining until Last filled 01/27/14 at [facility] (Active) CODEINE 30MG/ACETAMINOPHEN 300MG TAB Sig: Quantity: 14 Days Supply: 4 0 refills remaining until Last filled 03/19/15 at [facility] (Active) WARFARIN NA 5MG TAB Sig: Quantity: 30 Days Supply: 30 99 refills remaining until Last filled 10/15/08 at [id number] (Active) WARFARIN NA 5MG TAB Sig: Quantity: 30 Days Supply: 30 99 refills remaining until Last filled 11/20/08 at [id number] (Active) FINASTERIDE 5MG TAB Sig: Quantity: 90 Days Supply: 90 2 refills remaining until Last filled 02/05/15 at [facility] (Active) POTASSIUM CHLORIDE 10MEQ CAP,SA Sig: Quantity: 30 Days Supply: 30 11 refills remaining until Last filled 09/24/08 at [id number] (Active) POTASSIUM CHLORIDE 10MEQ CAP,SA Sig: Quantity: 90 Days Supply: 90 3 refills remaining until Last filled 09/07/16 at [facility] (Active) LISINOPRIL 40MG TAB Sig: Quantity: 90 Days Supply: 90 4 refills remaining until Last filled 04/01/17 at [facility] (Active) SIMVASTATIN 40MG TAB Sig: Quantity: 90 Days Supply: 90 2 refills remaining until Last filled 11/29/17 at [facility] (Active) PANTOPRAZOLE NA 40MG TAB,EC Sig: Quantity: 90 Days Supply: 90 2 refills remaining until Last filled 06/06/17 at [facility] (Active) ALFUZOSIN HCL 10MG TAB,SA Sig: Quantity: 90 Days Supply: 90 2 refills remaining until Last filled 08/17/18 at [facility] (Active) ALFUZOSIN HCL 10MG TAB,SA Sig: Quantity: 90 Days Supply: 90 2 refills remaining until Last filled 03/25/17 at [facility] (Active) DIGOXIN 0.125MG TAB Sig: Quantity: 90 Days Supply: 90 2 refills remaining until Last filled 07/20/15 at [facility] (Active) ESOMEPRAZOLE MAGNESIUM 40MG CAP,EC Sig: Quantity: 45 Days Supply: 90 3 refills remaining until Last filled 11/02/14 at [facility] (Active) VARDENAFIL HCL 20MG TAB Sig: Quantity: 12 Days Supply: 60 5 refills remaining until Last filled 07/01/08 at [facility] (Active) /es/ MD Fredo CHOPRA Primary Care Physician Signed: 10/18/2020 14:32 KAREN PARKINSON [facility] Oct 18, 2020 01:49 PM PRIMARY CARE NURSING NOTE: LOCAL TITLE: PRIMARY CARE/NURSE STANDARD TITLE: PRIMARY CARE NURSING NOTE DATE OF NOTE: OCT 18, 2020@13:49 ENTRY DATE: OCT 18, 2020@13:49:30 AUTHOR: CAT TORRES EXP COSIGNER: URGENCY: STATUS: COMPLETED PRIMARY CARE/NURSE Has ADDENDA SUBJECTIVE: presents for pcp visit w/fasting labs; Would like to discuss feet and diabetes; 2 months ago left arm and hand has no strength and remains that way; Started using cane again 3 months ago d/t stumbling feet and balance. Local pcp: Dr. Kennedy TOB: none ETOH: none Illicit drugs: none BP: 133/72 (10/18/2020 13:48) Pain: 0 (10/18/2020 13:47) Height: 69 in [175.3 cm] (10/18/2020 13:47) Weight: 280.1 lb [127.3 kg] (10/18/2020 13:47) Pulse: 96 (10/18/2020 13:47) Respiration: 16 (10/18/2020 13:47) Temperature: 95.7 F [35.4 C] (10/18/2020 13:47) BMI: OCT 18, 2020@13:47:03 41.5 10/18/20 @ 1347 PULSE OXIMETRY: 98 Mental Status: alert and oriented Are there things in your life that worry you or cause you stress? Yes, Specify: feet and legs Depression: No Suicidal: No Accompanied By: Alone On Arrival: Cane Mobility changes in the past 3 months? No feet has gotten worse...states he has started w/cane again in past 3 m Do you have or use an assistive device? Yes, Specify: cane Do you need further instruction on the use of your device? No Has patient had fall(s) in last 3 months? No, patient reports no fall(s) in last 3 months. Potential risks for falls identified. No Has the patient traveled outside the [place] within the past 30 days? No If yes, where has the patient traveled? Psychosocial Status: appropriate thought content Indication of suspected abuse, neglect, or exploitation? No LAB TESTS SELECTED Collection DT Specimen Test Name Result Units Ref Range 10/12/2020 09:07 SERUM LDLc 51 LAB CUMULATIVE SELECTED 1 No selection items chosen for this component. OTHER MEDICATIONS (HERBALS, OTC's, etc): No Active Outpatient Medications (including Supplies): Active Non-VA Medications Status 1) Non-VA ALFUZOSIN HCL 10MG SA TAB 10 MG MOUTH ONCE ACTIVE DAILY 2) Non-VA APIXABAN 5MG TAB 5MG MOUTH T WICE A DAY ACTIVE 3) Non-VA CALCIUM/MAGNESIUM TAB,EC 400 /200 MOUTH ONCE ACTIVE DAILY 4) Non-VA DIGOXIN (LANOXIN) 0.125MG TA B 0.125MG MOUTH AT ACTIVE BEDTIME 5) Non-VA ESOMEPRAZOLE MAGNESIUM 40MG EC CAP 40MG MOUTH ACTIVE EVERY MORNING 6) Non-VA FINASTERIDE 5MG TAB *HD* 5MG MOUTH ONCE DAILY ACTIVE 7) Non-VA FISH OIL 2000MG 4000MG MOUTH ONCE DAILY ACTIVE 8) Non-VA HYDROCHLOROTHIAZIDE 25MG TAB 25MG MOUTH EVERY ACTIVE MORNING 9) Non-VA LEVOTHYROXINE NA (SYNTHROID) 25MCG TAB 0.025MG ACTIVE MOUTH EVERY MORNING 10) Non-VA LOSARTAN 50MG TAB 50MG MOUT H ONCE DAILY ACTIVE 11) Non-VA METOPROLOL SUCCINATE 100MG S A TAB,UD 100MG ACTIVE MOUTH ONCE DAILY 12) Non-VA MULTIVITAMIN CAP/TAB 1 CAP/T AB MOUTH ONCE ACTIVE DAILY 13) Non-VA POTASSIUM CL 20MEQ SA TAB (D ISPERSIBLE) 10MEQ ACTIVE MOUTH ONCE DAILY 14) Non-VA PSYLLIUM ORAL,PWD 1 TABLESPO ONFUL (15 mL) IN ACTIVE WATER OR JUICE & DRINK ONCE DAILY 15) Non-VA SIMVASTATIN 80MG TAB 40MG MO UTH AT BEDTIME ACTIVE Suicide Screen: C-SSRS Screening [place]-Suicide Severity Rating Scale (C-SSRS Screener) 1. Over the past month, have you wished you were or wished you could go to sleep and not wake up? No 2. Over the past month, have you had any actual thoughts of killing yourself? No 3. Over the past month, have you been thinking about how you might do this? Response not required due to responses to other questions. 4. Over the past month, have you had these thoughts and had some intention of acting on them? Response not required due to responses to other questions. 5. Over the past month, have you started to work out or worked out the details of how to kill yourself? Response not required due to responses to other questions. 6. If yes, at any time in the past month did you intend to carry out this plan? Response not required due to responses to other questions. 7. In your lifetime, have you ever done anything, started to do anything, or prepared to do anything to end your life (for example, collected pills, obtained a gun, gave away valuables, went to the roof but didn't jump)? No 8. If YES, was this within the past 3 months? Response not required due to responses to other questions. Influenza Immunization: The patient has received the seasonal influenza vaccine for the current season at another location. Date: February 10, 2020 Location: Dr. Marcia [facility] Immunization: Moderna COVID-19 Vaccine given previously Patient received a prior dose of the Moderna COVID-19 Vaccine. Date: July 04, 2020 Location: Dr. Kennedy /zay/ CAT TORRES LPN PRIMARY CARE SERVICE Signed: 10/18/2020 13:58 10/18/2020 ADDENDUM STATUS: COMPLETED [place] Elderly Screening (Nurse): FALL SCREENING: Patient screened for fall(s) in past twelve (12) months: Patient reports no fall(s) in past twelve (12) months. Assistive device(s): Patient reports he/she does not use assistive device(s). WADE INDEX FOR ADL SCREENING: Perform Screening WADE Index of [place] in Activities of Daily Living was completed at this encounter. BATHING: Patient needs no supervision, direction or personal assistance with bathing. DRESSING: Patient needs no supervision, direction or personal assistance with dressing. TOILETING: Patient needs no supervision, direction or personal assistance with toileting. TRANSFERRING: Patient needs no supervision, direction or personal assistance with transferring. CONTINENCE: Patient needs no supervision, direction or personal assistance with continence. FEEDING: Patient needs no supervision, direction or personal assistance with feeding/eating. TOTAL POINTS: = [ 6 ] FULL FUNCTION (Independent) INSTRUMENTAL ACTIVITIES OF DAILY LIVING (IADL) SCALE ([place]) Ability to use telephone: 1 point - Operates telephone on own initiative; looks up and dials numbers, etc. Shoppin point - Takes care of all shopping needs independently Food preparation: 1 point - Plans, prepares, and serves adequate meals independently Housekeepin point - Maintains house alone or with occasional assistance (e.g., "heavy work domestic help") Laundry: 1 point - Does personal laundry completely Mode of transportation: 1 point - Travels independently on public transportation or drives own car Responsibility for own medications: 1 point - Is responsible for taking medication in correct dosages at correct time Ability to handle finances: 1 point - Manages financial matters independently (budgets, writes checks, pays rent and bills, goes to bank), collects and keeps track of income SCORING: The total score may range from 0 - 8. A lower score indicates a higher level of dependence. Total score: 8 points URINARY INCONTINENCE SCREENING: Do you leak urine when you don't want to: [YES] Do you leak urine when you cough, laugh or exercise: [NO] Do you leak urine on the way to the bathroom: [YES] Ever use pads, tissue or cloth in underwear to catch urine: [NO] Patient answered YES to ONE or MORE of the above questions. Are any of the above conditions bothersome to patient? Moderate Prior treatment attempted, if yes, was it successful? No prior treatment attempted Mobility and Cognition Screen: Intact Healthy Living Discussion: Healthy Living Discussion: Nine Healthy Living Messages: The impact of healthy living behaviors on overall physical and mental well-being discussed with . Be Involved Eat Wisely Be Tobacco Free Manage Stress Be Physically Active Get Screenings and Tests Be Safe Limit Alcohol Strive for Healthy Weight No, is not interested in any topic at this time. Importance of healthy living for better health, especially being physically active and eating wisely, was communicated to the . informed that these topics can be discussed at any time. Patient level of understanding: Good DIAGNOSIS: TIME: Alcohol Use Screen (AUDIT-C): Alcohol Screen: SCREEN FOR ALCOHOL (AUDIT-C) An alcohol screening test (AUDIT-C) was negative (score=0). 1. How often did you have a drink containing alcohol in the past year? Never 2. How many drinks containing alcohol did you have on a typical day when you were drinking in the past year? Response not required due to responses to other questions. 3. How often did you have six or more drinks on one occasion in the past year? Response not required due to responses to other questions. Tdap Immunization: The patient declines to receive the recommended dose of Tetanus, Diphtheria, Pertussis vaccine (Tdap). Food/Drug Interaction Ed (Nurse): Patient received food/drug interactions education at this encounter. Level of Understanding: Good Marisela Skin Evaluation (Outpatient): -Patient does not use wheelchair. -Patient is not confined to bed. -Patient does not require assistance for transfers/position changes. -Patient does not use a medical chief technician that fits over skin (e.g., artificial limb, braces, splint, condom catheter) -Patient currently has no open wounds. -No history of pressure ulcer(s). -Patient currently has no pressure ulcer(s). Marisela Skin Evaluation NOT completed in the last year, or 'no data available'. MARISELA RISK SKIN EVALUATION SCALE: PARAMETERS SCORE Sensory Perception: 4. No impairment Moisture: 4. Rarely moist Activity: 4 Walks frequently Mobility: 4. No limitation Nutrition: 3. Adequate Friction/Shear: 3. No apparent problem EDUCATION: Pressure Ulcer education not indicated at this time. Nutrition/Health Risk Scrn (Nurse): NUTRITION AND HEALTH RISK SCREEN: Has patient had any unintentional weight loss of more than 10 pounds in the last 3 months? Patient reports no unintentional weight loss >10 lbs in last three months. LDL greater than 130 mg/dl within last 6 months? No, patient's LDL is NOT greater than 130 mg/dl Glyco Hgb A1C results in the last 6 months Yes, patient has Glyco Hgb A1C results in the last 6 months. Patient's Glyco Hgb A1C is not greater than 8. Is patient on warfarin ? No, patient is NOT on warfarin * * * * There were no "YES" responses to the above screening questions * * * * Pain Evaluation (Nurse): PAIN EVALUATION: Clinic Location: Primary Care Patient reports no pain present today. Pain Score: 0 Advance Directive Screen (Nurse): "Your Rights Regarding Advance Directives" was discussed and/or provided to patient/caregiver. ADVANCE DIRECTIVE SCREEN COPY of Advance Directive on file in the patient's record. Patient does not wish to make changes to existing Advance Directive. Tobacco Use Screening: The patient has never used tobacco. PTSD Screening: PC-PTSD-5 A PTSD screening test (PC-PTSD-5) was negative (score=0). Have you ever had any experience that was so frightening, horrible or upsetting that, IN THE PAST MONTH, you: Have you ever experienced this kind of event? NO 1. Had nightmares about the event(s) or thought about the event(s) when you did not want to? Response not required due to responses to other questions. 2. Tried hard not to think about the event(s) or went out of your way to avoid situations that reminded you of the event(s)? Response not required due to responses to other questions. 3. Been constantly on guard, watchful, or easily startled? Response not required due to responses to other questions. 4. [place] numb or detached from people, activities, or your surroundings? Response not required due to responses to other questions. 5. [place] guilty or unable to stop blaming yourself or others for the event(s) or any problems the event(s) may have caused? Response not required due to responses to other questions. Depression Screening: Perform PHQ-2 A PHQ-2 screen was performed. The score was 2 which is a negative screen for depression. Over the past two weeks, how often have you been bothered by the following problems? 1. Little interest or pleasure in doing things More than half the days 2. Feeling down, depressed, or hopeless Not at all HIV Screening : Patient has been offered HIV testing and has declined. I have explained that HIV testing is recommended for all adults, even if all risk factors are absent. High Risk Dx FOOT EXAM (Prov/Nurse): Patient had VISUAL foot exam at this encounter. Result of exam: Normal Comment: toe nails need trimmed Patient had SENSORY foot exam per monofilament performed at this encounter. Result of exam: Normal Patient had PEDAL PULSE foot exam at this encounter. Result of exam: Normal Relative Risk for a future amputation: 0 (Normal Risk) Foot exam and relative risk discussed with patient. Hepatitis C Testing: Patient declines HCV lab test. /zay/ CAT TORRES LPN PRIMARY CARE SERVICE Signed: 10/18/2020 16:07 CAT TORRES [facility] Oct 18, 2020 12:53 PM PRIMARY CARE PHYSICIAN NOTE: LOCAL TITLE: PRIMARY CARE/PROVIDER STANDARD TITLE: PRIMARY CARE PHYSICIAN NOTE DATE OF NOTE: OCT 18, 2020@12:53 ENTRY DATE: OCT 18, 2020@12:53:09 AUTHOR: KAREN PARKINSON COSIGNER: URGENCY: STATUS: COMPLETED Active Outpatient Medications (including Supplies): Active Non-VA Medications Status 1) Non-VA ALFUZOSIN HCL 10MG SA TAB 10 MG MOUTH ONCE ACTIVE DAILY 2) Non-VA APIXABAN 5MG TAB 5MG MOUTH T WICE A DAY ACTIVE 3) Non-VA CALCIUM/MAGNESIUM TAB,EC 400 /200 MOUTH ONCE ACTIVE DAILY 4) Non-VA DIGOXIN (LANOXIN) 0.125MG TA B 0.125MG MOUTH AT ACTIVE BEDTIME 5) Non-VA ESOMEPRAZOLE MAGNESIUM 40MG EC CAP 40MG MOUTH ACTIVE EVERY MORNING 6) Non-VA FINASTERIDE 5MG TAB *HD* 5MG MOUTH ONCE DAILY ACTIVE 7) Non-VA FISH OIL 2000MG 4000MG MOUTH ONCE DAILY ACTIVE 8) Non-VA HYDROCHLOROTHIAZIDE 25MG TAB 25MG MOUTH EVERY ACTIVE MORNING 9) Non-VA LEVOTHYROXINE NA (SYNTHROID) 25MCG TAB 0.025MG ACTIVE MOUTH EVERY MORNING 10) Non-VA LOSARTAN 50MG TAB 50MG MOUT H ONCE DAILY ACTIVE 11) Non-VA METOPROLOL SUCCINATE 100MG S A TAB,UD 100MG ACTIVE MOUTH ONCE DAILY 12) Non-VA MULTIVITAMIN CAP/TAB 1 CAP/T AB MOUTH ONCE ACTIVE DAILY 13) Non-VA POTASSIUM CL 20MEQ SA TAB (D ISPERSIBLE) 10MEQ ACTIVE MOUTH ONCE DAILY 14) Non-VA PSYLLIUM ORAL,PWD 1 TABLESPO ONFUL (15 mL) IN ACTIVE WATER OR JUICE & DRINK ONCE DAILY 15) Non-VA SIMVASTATIN 80MG TAB 40MG MO UTH AT BEDTIME ACTIVE ALLERGIES: Patient has answered NKA (X)Nurse's intake/assessment note review ed. Reviewed with nurse. "" Accompanied by other: HPI: ANGELA HOPKINS, 80 year old, male with hx of Sleep Apnea/Obesity, GERD, BPH, HTN, Hyperlipidemia, Hypothyroidism and Type 2 DM who presents for follow up. Last seen 07/20/20. DM X 15 yrs. Was on Glucophage with the latter addition of Glipizide Had been on Gluco/Actos with Glipizide in more recent years. The combination drug had been discontinued and he was still on Glipizide when seen. Pt noted polyuria ( on HCTZ) Issues with BPH. Vision clear. Some tingling in the feet. On Cozaar with Metoprolol (A Fib) and HCTZ). Pt had lost 40 pounds one yr before after a foot fx. Hx of AFib X 15 yrs. Was subsequently in NSR. Hx of BPH ( S/P TURP). Incontinence with dribbling Hypothyroidism X 4 yrs. On Synthroid 0.025mg. Labs with HgA1c 6.3%, Glu 164, BUN 26, Creat 1`.39, GFR 49, H/H 14.1/41, MCV 95.1, UTI on U/A. To stop Glipizide. Limit sweets and CHO. Given Macrobid for UTI. Update TFT's with next labs and titrate Synthroid. Pt's medications have changed during the interim He has been on Synthroid 0.075mg daily ( not certain how long) En ergy lower than ideal. Dry skin. Nails are fine. Occ ankle edema. Colder than others. Constipation. Wt stable Not checking any sugars. Polyuria. No dysuria. Hard to make it to the bathroom. Up 3-4 X per night to void. Vision clear. Tingling in left hand and arm lately. Walking with cane support for the last few months. Feeling more off balance. Pt has been on PPI for many yrs. Recently changed from Nexium to Prontonix. Not having symptoms at this time. Tobacco - denies use ETOH - denies use Illicit drugs - denies use Pt. reports no ER/UC visits, hospitalizations, surgeries or serious illnesses since last PCP visit. Medication list reconciled. PERTINANT REVIEW OF SYSTEMS: GENERAL: Appetite good, no significant weight change Head, ears, eyes, nose, throat: No significant change HEART: No chest pain or palpitations LUNGS: No Shortness of breath [place] with limited physical work capacity Gastrointestinal: No abdominal pain, bowel movements unchanged Genital/Urinary: No dysuria, hematuria, or change in frequency of urination MUSCULOSKELETAL: Normal ROM, denies myalgia SKIN: Denies rash, open wounds or nonhealing sores PMH: Refer to the above problem list VITALS: BP: 133/72 (10/18/2020 13:48) Pain: 0 (10/18/2020 13:47) Height: 69 in [175.3 cm] (10/18/2020 13:47) Weight: 280.1 lb [127.3 kg] (10/18/2020 13:47) Pulse: 96 (10/18/2020 13:47) Respiration: 16 (10/18/2020 13:47) Temperature: 95.7 F [35.4 C] (10/18/2020 13:47) BMI: OCT 18, 2020@13:47:03 41.5 10/18/20 @ 1347 PULSE OXIMETRY: 98 GENERAL APPEARANCE: A 80 year old MALE, in NAD obese off balance with gait HEENT: Normocephalic, atraumatic. Extra ocular motions appear intact. Conjunctiva non-icteric. Periorbital areas with no edema or redness. NECK: Trachea midline. NO JVD. No carotid bruits., thyroid low lying and palpable CV: RRR, PMI not displaced. S1 and S2 normal. No gallop or rub. Murmur: none. PULMONARY: CTA with no wheezes, no rhonchi, or rales. GI: Soft, nontender with normal bowel sounds. NO organomegaly or masses. No rebound. EXT: No cyanosis, clubbing, edema. Pedal pulses present, gross visual inspection wnl. Full ROM with all extremities. Posture: erect/upright Gait: cane assisted. NEUROLOGIC: Awake, alert, and oriented x 3. CRANIAL NERVES: II-XII intact. No focal deficits noted. SKIN: Warm, dry with normal turgor for age. Normal color with capillary refill within 2 seconds. PSYCH: Appropriate thought content. Mood appropriate. Provider: KAREN PARKINSON Specimen: URINE. [facility] [id number] Specimen Collection Date: Oct 12, 2020@09:07 Test name Result units Ref. range Site Code UA PH 6.00 PH 5 - 9 [6770] UA PROTEIN NEG QUAL Ref: NEG [6770] Eval: TRACE: 10-20 mg/dL Eval: 1+: 30-70 mg/dL Eval: 2+: 100-200 mg/dL Eval: 3+: 300-600 mg/dL Eval: 4+: >600 mg/dL UA GLUCOSE NEG QUAL NEG - TRACE [6770] Eval: TRACE: 30-50 mg/dL Eval: 1+: 70-100 mg/dL Eval: 2+: 150-200 mg/dL Eval: 3+: 300-500 mg/dL Eval: 4+: 1000+ mg/dL UA KETONES NEG QUAL NEG - TRACE [6770] Eval: TRACE: <10 mg/dL Eval: 1+: 10-20 mg/dL Eval: 2+: 40-60 mg/dL Eval: 3+: 80-100 mg/dL Eval: 4+: 150+ mg/dL UA BILI NEG QUAL Ref: NEG [6769] Eval: 1+: 0.5-1.0 mg/dL Eval: 2+: 2.0-4.0 mg/dL Eval: 3+: 6.0-10.0 mg/dL Eval: 4+: >10.0 mg/dL UA BLOOD 1+ QUAL NEG - TRACE [6769] Eval: TRACE: 0.03 mg/dL Eval: 1+: 0.06-0.1 mg/dL Eval: 2+: 0.2-0.5 mg/dL Eval: 3+: >=1.0 mg/dL UA NITRITE 2+ QUAL. Neg. - Neg [6769] UA UROBILINOGEN <2.0 mg/dL Ref: Normal: <2 mg/dL [6769] Eval: Normal: <2.0 mg/dL Eval: 1+: 2.0 mg/dL Eval: 1+: 3.0 mg/dL Eval: 2+: 4.0 mg/dL Eval: 2+: 6.0 mg/dL Eval: 3+: 8.0 mg/dL Eval: 3+: 12.0 mg/dL Eval: 4+: >12.0 mg/dL UA SPEC GRAV 1.022 1.005 - 1.035 [6769] UA COLOR YELLOW COLORLESS - YELLOW [6769] UA APPEARANCE EX TURBID Ref: CLEAR [70] UA WBC >50 H /HPF 0 - 5 [70] UA RBC 21-25 H /HPF 0 - 2 [70] UA BACTERIA Many /HPF 0 - FEW [70] UA LEUK EST 500 H Burton/uL NEG - 74 [70] Eval: 25 Burton/uL: Trace Eval: 75 Burton/uL: 1+ Eval: 250 Burton/uL: 2+ Eval: 500 Burton/uL: 3+ Comment: Specimen reflexed to culture due to increased WBCs. = Report Released Date/Time: Oct 12, 2020@10:00 Provider: KAREN PARKINSON Specimen: URINE. [facility] [id number] Specimen Collection Date: Oct 12, 2020@09:07 Test name Result units Ref. range Site Code CREATININE (FV) 139.51 mg/dL [6770] Eval: No established reference range reported for this test, recommend the Eval: judicious use of this result in the clinical setting. This laboratory Eval: recommends a 24 hour collection to determine whether or not the results Eval: are considered abnormal. MICROALBUMIN (FV) 1.9 H mg/dL Ref: <=1.8 [6770] MA:CREAT RATIO (FV) 14 mcg/mgCrea Ref: <=29 [6770] Eval: NORMAL <30 mcg/mg Creatinine Eval: MICROALBUMINURIA 30-300 mcg/mg Creatinine Eval: CLINICAL ALBUMINURIA >300 mcg/mg Creatinine = Report Released Date/Time: Oct 12, 2020@16:24 Provider: KAREN PARKINSON Specimen: SERUM. [facility] [id number] Specimen Collection Date: Oct 12, 2020@09:07 Test name Result units Ref. range Site Code FREE T3 (FV) 2.80 pg/mL 2.5 - 3.9 [564] Eval: Testing methodology: Competitive Binding Immunoenzymatic Assay. TSH (FV) 5.45 H mcIU/mL 0.45 - 5.33 [564] FREE T4 (FV) 0.97 ng/dL 0.61 - 1.12 [564] = Report Released Date/Time: Oct 12, 2020@10:00 Provider: KAREN PARKINSON Specimen: SERUM. [facility] [id number] Specimen Collection Date: Oct 12, 2020@09:07 Test name Result units Ref. range Site Code GLUCOSE (FV) 179 H mg/dL 70 - 110 [6770] UREA NITROGEN (FV) 25 H mg/dL 6 - 20 [6770] CREATININE (FV) 1.24 mg/dL .61 - 1.24 [6770] eGFR 56 [6770] Eval: eGFR units reported as mL/min/1.73 square meters. Individuals with GFR<60 Eval: mL/min/1.73 square meters for 3 months are classified as having chronic Eval: kidney disease. SODIUM (FV) 137 mmol/L 136 - 145 [6770] POTASSIUM (FV) 3.7 mmol/L 3.5 - 5.1 [6770] CHLORIDE (FV) 100 mmol/L 98 - 107 [6770] CO2 (FV) 26 mmol/L 21 - 32 [6770] CALCIUM (FV) 8.9 mg/dL 8.9 - 10.3 [6770] TOTAL PROTEIN (FV) 8.3 H g/dL 6.1 - 7.9 [6770] ALBUMIN (FV) 3.6 g/dL 3.4 - 5.0 [6770] AST (FV) 33 U/L 15 - 37 [6770] ALT (FV) 33 U/L 0 - 63 [6770] ALK. PHOS. (FV) 43 U/L 32 - 126 [6770] TOTAL BILIRUBIN (FV) 1.10 mg/dL 0.3 - 1.2 [6770] CHOLESTEROL, TOTAL (FV) 122 mg/dL 118 - 200 [6770] Eval: Interpretation: Eval: Eval: Low Risk Less than 200 mg/dL Eval: Borderline Risk 201 - 239 mg/dL Eval: High Risk 240 mg/dL and greater Eval: Eval: Eval: Before 04/17/2003: Eval: See Lipid Profile Interpretation on the [facility] Intranet: Eval: Eval: REFERENCES/LABORATORY:Interpretive Guidelines For Selected Tests/ Eval: Lipid Profile Interpretation TRIGLYCERIDE (FV) 91 mg/dL Ref: <=150 [6770] Eval: The Adult [...] on a fasting specimen. HDL CHOLESTEROL (FV) 53 mg/dL Ref: >=40 [6770] Eval: The National Cholesterol Education Progran Adult Treatment Panel III Eval: (NCEP ATP III) Guidelines: Eval: Eval: Low Risk >=60 mg/dL Eval: Borderline risk 40 - 59 mg/dL Eval: High risk <40 mg/dL LDL CHOLESTEROL (CALCULATED) 51 = Report Released Date/Time: Oct 12, 2020@09:56 Provider: KAREN PARKINSON Specimen: BLOOD. [facility] [id number] Specimen Collection Date: Oct 12, 2020@09:07 Test name Result units Ref. range Site Code WBC (FV) 5.9 K/cmm 3.8 - 10.6 [6770] RBC (FV) 4.38 L M/cmm 4.4 - 5.9 [6770] HGB (FV) 14.3 g/dL 13 - 18 [6770] HCT (FV) 41.3 % 40 - 52 [6770] MCV (FV) 94.4 fL 80 - 100 [6770] MCH (FV) 32.7 pg 26 - 34 [6770] MCHC (FV) 34.6 g/dL 32 - 36 [6770] RDW (FV) 12.9 % 11.5 - 14.5 [6770] PLT (FV) 198 K/cmm 150 - 440 [70] MPV (FV) 9.5 fL 7.4 - 10.4 [70] NE% (FV) 58.7 % Ref: SEE ABSOLUTE # [70] Eval: Percent auto differential is for informational purposes only. Eval: No established reference ranges reported. NE# (FV) 3.5 K/cmm 2.4 - 7.6 [70] LY% (FV) 26.0 % Ref: SEE ABSOLUTE # [70] LY# (FV) 1.5 K/cmm 1.0 - 4.8 [70] MO% (FV) 12.3 % Ref: SEE ABSOLUTE # [70] MO# (FV) 0.7 K/cmm 0.1 - 1.0 [70] EO% (FV) 2.2 % Ref: SEE ABSOLUTE # [70] EO# (FV) 0.1 K/cmm 0.0 - 0.4 [70] BA% (FV) 0.8 % Ref: SEE ABSOLUTE # [70] BA# (FV) 0.0 K/cmm 0.0 - 0.2 [70] Glyco Hgb A1C 7.6 H % 4.2 - 5.8 [70] = Report Released Date/Time: Provider: KAREN PARKINSON Specimen: URINE. [facility] [id number] Specimen Collection Date: Oct 12, 2020@09:07 Test name Result units Ref. range Site Code CULTURE, URINE Test Not Performed Comment: *CULTURE, URINE Not Performed: Oct 12, 2020@22:04 by [id number] *BREAK AND LOAD OPERATOR Reason: Reaccessioned - results to follow. = ---- MICROBIOLOGY ---- Accession [UID]: [id number] [[id number]] Received: Oct 12, 2020@15:20 Collection sample: URINE MICROBIOLOGY Collection date: Oct 12, 2020 09:07 Site/Specimen: URINE Provider: KAREN PARKINSON Test(s) ordered: CULTURE, URINE................ completed: Oct 14, 2020 11:22 * BACTERIOLOGY FINAL REPORT => Oct 14, 2020 11:23 TECH CODE: [id number] CULTURE RESULTS: ESCHERICHIA COLI - Quantity: >100,000 [...] =--=--=--=--=--=--=--=--=--=--=--=--=--=--=--=--=--=--=--=--=--=--=--=--=--=-- Performing Laboratory: Bacteriology Report Performed By: [facility] [CLIA# [id number]] [address] = Report Released Date/Time: Provider: KAREN PARKINSON Specimen: URINE. [facility] [id number] Specimen Collection Date: Jul 13, 2020@09:04 Test name Result units Ref. range Site Code CULTURE, URINE Test Not Performed Comment: *CULTURE, URINE Not Performed: Jul 13, 2020@21:22 by [id number] *BREAK AND LOAD OPERATOR Reason: Reaccessioned - results to follow. = ---- MICROBIOLOGY ---- Accession [UID]: [facility] [id number] [[id number]] Received: Jul 13, 2020@13:02 Collection sample: URINE MICROBIOLOGY Collection date: Jul 13, 2020 09:04 Site/Specimen: URINE Provider: KAREN PARKINSON Test(s) ordered: CULTURE, URINE................ completed: Jul 15, 2020 09:24 * BACTERIOLOGY FINAL REPORT => Jul 15, 2020 09:26 TECH CODE: [id number] CULTURE RESULTS: ESCHERICHIA COLI - Quantity: >100,000 CFU/ML Comment: Results of ampicillin testing can be used to predict results for amoxicillin. (CLSI M100). A ASSESSMENT/PLAN: Brief Problem List: 1. Hypothyroidism 2. Type 2 diabetes mellitus 3. Obesity 4. Atrial fibrillation 5. Benign prostatic hyperplasia 6. Gastroesophageal reflux disease witho ut esophagitis 7. Hypertension 8. Hyperlipidemia 9. Sleep apnea 10. Hearing loss 11. History of polyp of colon : Colonoscopy; 2 polyps ( adenoma and hyperplastic). Dr. Stinson performed colonoscopy 12. Obesity (SNOMED CT [id number]) 13. Care Home (current) use of Anticoagu lants 14. Hypertrophy (Benign) of Prostate wit hout Urinary obstruction and other lower Uri 15. Microscopic Hematuria (ICD-9-CM 599. 72) Negative cystoscopy 16. Hearing loss * (ICD-9-CM 389.9) 17. Diabetes * (ICD-9-CM 250.00) 18. Atrial Fibrillation * (ICD-9-CM 427. 31) 19. Gastroesophageal Reflux Disorder * ( ICD-9-CM 530.81) 20. Hypertension * (ICD-9-CM 401.9) 21. Hyperlipidemia * (ICD-9-CM 272.4) 22. Sleep Apnea (ICD-9-CM 780.57/786.09) The patients medical condition(s), new medication(s), and common side effects, were discussed. The patient expressed understanding and is aware to contact us if any further questions. Assessment 1. Type 2 DM -- uncontrolled at this karina e Limit sweets and CHO. Trial of Nesina 12.5mg daily. Repeat labs in 3 months then RTC 2. Hypothyroidism-- TSH higher than idea l. Increase Synthroid to 0.05mg daily. Repeat labs with next draw and continue to titrate 3. HTN--stable on current program. Jennifer nue same. 4. Hyperlipidemia--stable on Zocor 5. GERD-- medical care manager PPI use. Advise tryi ng to wean PPI ( CKD) and introducing trial of Pepcid 6. CKD 3-- mulitfactorial Control co mo rbidities. Suggest trial of weaning PPI in favor of Pepcid 7. A Fib-- Hemodynamically stable . Cont inue Metoprolol and Eliquis 8.BPH-- stable on current program 9. UTI-- Bactrim DS one po bid X 5 days PLAN: Trial of Nesina 12.5mg daily Limit sweets and CHO Monitor sugars Increase Synthroid to 0.1mg daily Taper off protonix Pepcid 40mg daily Continue Zocor 40mg HS Continue Cozaar 50mg daily Continue HCTZ with KCL Continue Toprol XL 300mg Continue Eliquis Bactrim DS one po bid X 5 days CBC, Hep/Renal, Lipid, FT4, TSH, HgA1c , U/A micro and UA in 3 months then RTC PATIENT EDUCATION: (x)Diet and Exercise: Heart healthy diet , Moderate exercise such as walking 30 minutes 5 times per week (x)Medications including instructions, b enefits and side effects: reviewed and discussed all medications (x)Lab results: Reviewed with patient (x)Tobacco cessation: advised and suppor jovon. /zay/ MD Fredo CHOPRA Primary Care Physician Signed: 10/18/2020 14:31 KAREN PARKINSON [facility]
--- OUTSIDE RECORDS SUMMARY | 2021-02-10 14:01 | XMS REPORT | Encounter Summary ---
Author Author Department [facility] ANGELA ma Organization [facility] Address Unknown Phone Unavailable Care Team Providers Care Public Relations Coordinator Name Role Phone KAREN PARKINSON PCP Unavailable [...] (WNR) PRESCRIPTION (WNR) Jul 12, 2006 (WNR) [id number] ANGELA HOPKINS PATIENT MEDICARE (WNR) MEDICARE (M) PART A Jul 12, 2006 PART A [id number] ANGELA HOPKINS PATIENT MEDICARE (WNR) MEDICARE (M) PART B Jul 12, 2006 PART B [id number] ANGELA HOPKINS PATIENT MEDICARE (WNR) MEDICARE (M) PART A Jul 12, 2006 PART A [id number] ANGELA HOPKINS PATIENT MEDICARE (WNR) MEDICARE (M) PART B Jul 12, 2006 PART B [id number] A [id number] ANGELA HOPKINS PATIENT MEDICARE (WNR) MEDICARE (M) PART A Jul 12, 2006 PART A [id number] A [id number] ANGELA HOPKINS PATIENT MEDICARE (WNR) MEDICARE (M) PART B Jul 12, 2006 PART B [id number] A [phone] ANGELA HOPKINS PATIENT [id number] FOR LIFE Jul 12, 2006 [facility] CARE FOR LIFE [id number] ANGELA HOPKINS PATIENT Selected Encounter This section includes the information on record at [place] for the Encounter. Date/Time Encounter Type Encounter Description Reason Provider Source Jan 24, 2021 08:29 AM Outpatient Encounter ADMIN PAT ACTIVTIES (NEO NCT) IHE Encounter Template Text not used by [place] Assessments - Encounter Diagnoses No Data Provided for This Section Plan of Treatment: Future Appointments (+ 6 months) and Future Tests (+/- 45 day s) The Plan of Treatment section includes future care activities for the patient fr om all [place] treatment facilities. This section includes future appointments and fu ture orders which are active, pending or scheduled. Future Appointments This section includes appointments that were scheduled t o occur 6 months from the date of the Encounter, up to a maximum of 20 appointme nts. The data comes from all [facility]. Appointment Date/Time Appointment Type Appointment Facili ty Name Feb 14, 2021 04:00 PM AMBULATORY - MEDICINE [facility] Active, Pending, and Scheduled Orders This section includes a listing of several types of activ e, pending, and scheduled orders, including clinic medications orders, diagnosti c test orders, procedure orders and consult orders; where the start date of th e order is 45 days before the date of the Encounter or 45 days after the date o f the Encounter. The data comes from all [facility]. Test Date/Time Test Type Test Details Facility Name Jan 18, 2021 12:00 AM Laboratory - Chemistry Order URINALYSIS UR INE SP ONE-TIME [facility] Jan 18, 2021 12:00 AM Laboratory - Chemistry Order MICROALBU MIN, RANDOM URINE URINE CHEMISTRY (RANDOM) ONE-TIME [facility] Surgical Procedures: All associated to the encounter No Data Provided for This Section Lab Results: +/- 30 days of the encounter This section includes the Chemistry and Hematology Lab R esults on record with [place] for the patient. Radiology Reports and Pathology Report s are provided separately, in subsequent sections. Lab Results This section contains the Chemistry/Hematology Results bonnie t were resulted 30 days before or 30 days after the date of the Encounter. Date/Time Source Result Type Result - Unit Interpretation Reference Range Comment Jan 18, 2021 08:41 AM [facility] FREE T4 (FV) Speci men Type: SERUM No comment entered. Ordering Provider: KAREN PARKINSON Report Released Date/Time: Oct 18, 2020 02:36 PM Reporting Lab: [facility] [address] [facility] 7[address] Performing Lab: [facility] [address] [facility] [address] FREE T4 (FV) 1.03 ng/dL 0.61-1.12 Jan 18, 2021 08:41 AM [facility] CBC Speci men Type: BLOOD No comment entered. Ordering Provider: KAREN PARKINSON Report Released Date/Time: Oct 18, 2020 02:36 PM Reporting Lab: [address] [id number] Performing Lab: [address] [phone] RDW (FV) 13.1 % 11.5-14.5 HCT (FV) 40.2 % 40-52 HGB (FV) 13.6 g/dL 13-18 PLT (FV) 151 K/cmm 150-440 WBC (FV) 5.9 K/cmm 3.8-10.6 RBC (FV) 4.12 M/cmm L 4.4-5.9 MCV (FV) 97.7 fL 80-100 MCH (FV) 33.0 pg 26-34 MCHC (FV) 33.8 g/dL 32-36 NE% (FV) 67.3 % SEE ABSOLUTE # NE# (FV) 4.0 K/cmm 2.4-7.6 LY% (FV) 18.2 % SEE ABSOLUTE # LY# (FV) 1.1 K/cmm 1.0-4.8 MO% (FV) 11.2 % SEE ABSOLUTE # MO# (FV) 0.7 K/cmm 0.1-1.0 EO% (FV) 2.6 % SEE ABSOLUTE # EO# (FV) 0.2 K/cmm 0.0-0.4 BA% (FV) 0.7 % SEE ABSOLUTE # BA# (FV) 0.0 K/cmm 0.0-0.2 Jan 18, 2021 08:41 AM [facility] GLYCO HGB A1C Speci men Type: BLOOD No comment entered. Ordering Provider: KAREN PARKINSON Report Released Date/Time: Oct 18, 2020 02:36 PM Reporting Lab: [address] [facility] [id number] Performing Lab: [address] [facility] [phone] Glyco Hgb A1C 6.4 % H 4.2-5.8 Jan 18, 2021 08:41 AM [facility] LIPID PROFILE Speci men Type: SERUM No comment entered. Ordering Provider: KAREN PARKINSON Report Released Date/Time: Oct 18, 2020 02:36 PM Reporting Lab: [address] [facility] [id number] Performing Lab: [address] [phone] CHOLESTEROL, TOTAL (FV) 108 mg/dL L 118-20 0 TRIGLYCERIDE (FV) 57 mg/dL <150 LDL CHOLESTEROL (CALCULATED) 48 mg/dL O ptimal <100 HDL CHOLESTEROL (FV) 49 mg/dL >40 Jan 18, 2021 08:41 AM [facility] RENAL+LIVER PROFILE Specimen Type: SERUM No comment entered. Ordering Provider: KAREN PARKINSON Report Released Date/Time: Oct 18, 2020 02:36 PM Reporting Lab: [address] [facility] [phone] Performing Lab: [address] [facility] [phone] GLUCOSE (FV) 170 mg/dL H 70-110 ALBUMIN (FV) 3.3 g/dL L 3.4-5.0 AST (FV) 36 U/L 15-37 TOTAL BILIRUBIN (FV) 1.13 mg/dL 0.3-1.2 CHLORIDE (FV) 105 mmol/L 98-107 TOTAL PROTEIN (FV) 7.5 g/dL 6.1-7.9 SODIUM (FV) 137 mmol/L 136-145 POTASSIUM (FV) 3.9 mmol/L 3.5-5.1 CO2 (FV) 21 mmol/L 21-32 UREA NITROGEN (FV) 31 mg/dL H 6-20 CALCIUM (FV) 8.6 mg/dL L 8.9-10.3 ALT (FV) 38 U/L 0-63 ALK. PHOS. (FV) 34 U/L 32-126 eGFR 47 CREATININE (FV) 1.46 mg/dL H .61-1.24 Jan 18, 2021 08:41 AM [facility] TSH () Speci men Type: SERUM No comment entered. Ordering Provider: KAREN PARKINSON Report Released Date/Time: Oct 18, 2020 02:36 PM Reporting Lab: [facility] [address] [facility] 7270 Performing Lab: [facility] [address] [facility] [address] TSH () 3.39 mcIU/mL 0.45-5.33 Vital Signs: All taken on the encounter [...] of a patient's completed or amen ded [place] Advance and Rescinded Directives. The entries below indicate that a direc tive exists for the patient, but an actual copy is not included with this docume nt. The data comes from all [place] facilities. Date Advance Directives Provider Source Jun 07, 2011 ADVANCE DIRECTIVE TRENT LOZADA Radiology Reports: +/- 30 days of the encounter No Data Provided for This Section Pathology Reports: +/- 30 days of the encounter No Data Provided for This Section Encounter Notes: All associated encounter notes This section contains the clinical notes associated to the Encounter. Date/Time Encounter Note(s) Provider Source Jan 24, 2021 08:33 AM ADMINISTRATIVE NOTE: LOCAL TITLE: SCHEDULING NOTE STANDARD TITLE: ADMINISTRATIVE NOTE DATE OF NOTE: JAN 24, 2021@08:33 ENTRY DATE: JAN 24, 2021@08:33:17 AUTHOR: CHAN COLÓN COSIGNER: URGENCY: STATUS: COMPLETED SCHEDULING NOTE Has ADDENDA Pt is currently in the hospital at [facility], he will need to cxl/r/s his appt for tomorrow, 01/25. 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 /nicolás MCMAHAN Signed: 01/24/2021 09:58 01/31/2021 ADDENDUM STATUS: COMPLETED [employer] didn't respond to VM will send letter to r/s. Pull placed for follow up. /nicolás MCMAHAN Signed: 01/31/2021 13:08 02/08/2021 ADDENDUM STATUS: COMPLETED 's son, Sasha (hipaa), states that they received a letter regarding rescheduling visit. He states that the was transferred from [facility] in [place] to [facility] in [place]. He will be going to rehab in [place] today or tomorrow, he does not know which rehab facility he is going to. He is unsure when the may be discharged and will have to call back at a later date. If needed, Sasha may be reached at [phone]. /zay/ LILI PARRISH [facility] Signed: 02/08/2021 11:42 Receipt Acknowledged By: * AWAITING SIGNATURE * SHYANNE MCMAHAN [facility] Jan 24, 2021 08:29 AM ADMINISTRATIVE NOTE: LOCAL TITLE: ADMINISTRATIVE NOTE STANDARD TITLE: ADMINISTRATIVE NOTE DATE OF NOTE: JAN 24, 2021@08:29 ENTRY DATE: JAN 24, 2021@08:29:08 AUTHOR: CHAN COLÓN COSIGNER: URGENCY: STATUS: COMPLETED Hospital Notification Date: 01/24/21 Point of contact name: spouse Point of contact phone number: [facility] Hospital: [facility] Date Presenting to Facility: 01/21/21 Chief complaint: fall Patient admitted (yes, no, unknown): kathleen /zay/ CHAN COLÓN PATIENT SERVICES PROFILING MACHINE SET UP OPERATOR TOOL-NIKI Signed: 01/24/2021 08:31 Receipt Acknowledged By: * AWAITING SIGNATURE * RISHI ANDRE,CHAN DELGADO [facility]
--- OUTSIDE RECORDS SUMMARY | 2021-02-10 14:04 | XMS REPORT | Encounter Summary ---
Author Author Department [facility] ANGELA ma Organization [facility] Address Unknown Phone Unavailable Care Team Providers Care [employer] Assistant Football Coach Name Role Phone KAREN PARKINSON PCP Unavailable [...] (WNR) PRESCRIPTION (WNR) Jul 12, 2006 (WNR) [id number] ANGELA HOPKINS PATIENT MEDICARE (WNR) MEDICARE (M) PART A Jul 12, 2006 PART A [id number] ANGELA HOPKINS PATIENT MEDICARE (WNR) MEDICARE (M) PART B Jul 12, 2006 PART B [id number] ANGELA HOPKINS PATIENT MEDICARE (WNR) MEDICARE (M) PART A Jul 12, 2006 PART A [id number] ANGELA HOPKINS PATIENT MEDICARE (WNR) MEDICARE (M) PART B Jul 12, 2006 PART B [id number] A [phone] ANGELA HOPKINS PATIENT MEDICARE (WNR) MEDICARE (M) PART A Jul 12, 2006 PART A [id number] A [id number] ANGELA HOPKINS PATIENT MEDICARE (WNR) MEDICARE (M) PART B Jul 12, 2006 PART B [id number] ANGELA HOPKINS PATIENT [id number] FOR LIFE Jul 12, 2006 [facility] CARE FOR LIFE [id number] ANGELA HOPKINS PATIENT Selected Encounter This section includes the information on record at [place] for the Encounter. Date/Time Encounter Type Encounter Description Reason Provider Source Feb 08, 2021 11:37 AM Outpatient Encounter ADMIN PAT ACTIVTIES (NEO NCT) IHE Encounter Template Text not used by [place] Assessments - Encounter Diagnoses No Data Provided for This Section Plan of Treatment: Future Appointments (+ 6 months) and Future Tests (+/- 45 day s) The Plan of Treatment section includes future care activities for the patient fr om all [place] treatment facilities. This section includes future appointments and fu ture orders which are active, pending or scheduled. Future Appointments This section includes appointments that were scheduled t o occur 6 months from the date of the Encounter, up to a maximum of 20 appointme nts. The data comes from all [place] treatment [facility]. Appointment Date/Time Appointment Type Appointment Facili ty Name Feb 14, 2021 04:00 PM AMBULATORY - MEDICINE [facility] Active, Pending, and Scheduled Orders This [...] the Encounter. The data comes from all [facility]. Test Date/Time Test Type Test Details Facility Name Jan 18, 2021 12:00 AM Laboratory - Chemistry Order URINALYSIS UR INE SP ONE-TIME [facility] Jan 18, 2021 12:00 AM Laboratory - Chemistry Order MICROALBU MIN, RANDOM URINE URINE CHEMISTRY (RANDOM) ONE-TIME [facility] Surgical Procedures: All associated to the encounter No Data Provided for This Section Lab Results: +/- 30 days of the encounter This section includes the Chemistry and Hematology Lab R esults on record with [place] for the patient. Radiology Reports and Pathology Report s are provided separately, in subsequent sections. Lab Results This section contains the Chemistry/Hematology Results bonnie t were resulted 30 days before or 30 days after the date of the Encounter. Date/Time Source Result Type Result - Unit Interpretation Reference Range Comment Jan 18, 2021 08:41 AM [facility] FREE T4 (FV) Speci men Type: SERUM No comment entered. Ordering Provider: KAREN PARKINSON Report Released Date/Time: Oct 18, 2020 02:36 PM Reporting Lab: [facility] [address] [facility] 7[address] Performing Lab: [facility] [address] [facility] [address] FREE T4 (FV) 1.03 ng/dL 0.61-1.12 Jan 18, 2021 08:41 AM [facility] CBC Speci men Type: BLOOD No comment entered. Ordering Provider: KAREN PARKINSON Report Released Date/Time: Oct 18, 2020 02:36 PM Reporting Lab: [address] [phone] Performing Lab: [address] [phone] RDW (FV) 13.1 % 11.5-14.5 HCT [...] K/cmm 0.0-0.2 Jan 18, 2021 08:41 AM [facility] GLYCO HGB A1C Speci men Type: BLOOD No comment entered. Ordering Provider: KAREN PARKINSON Report Released Date/Time: Oct 18, 2020 02:36 PM Reporting Lab: [address] [facility] [phone] Performing Lab: [address] [facility] [address] Glyco Hgb A1C 6.4 % H 4.2-5.8 Jan 18, 2021 08:41 AM [facility] LIPID PROFILE Speci men Type: SERUM No comment entered. Ordering Provider: KAREN PARKINSON Report Released Date/Time: Oct 18, 2020 02:36 PM Reporting Lab: [address] [facility] [id number] Performing Lab: [address] [phone] CHOLESTEROL, TOTAL (FV) 108 mg/dL L 118-20 0 TRIGLYCERIDE (FV) 57 mg/dL <150 LDL CHOLESTEROL (CALCULATED) 48 mg/dL O ptimal <100 HDL CHOLESTEROL (FV) 49 mg/dL >40 Jan 18, 2021 08:41 AM [facility] RENAL+LIVER PROFILE Specimen Type: SERUM No comment entered. Ordering Provider: KAREN PARKINSON Report Released Date/Time: Oct 18, 2020 02:36 PM Reporting Lab: [address] [facility] [phone] Performing Lab: [address] [facility] [address] GLUCOSE (FV) 170 mg/dL H 70-110 [...] H .61-1.24 Jan 18, 2021 08:41 AM [facility] TSH () Speci men Type: SERUM No comment entered. Ordering Provider: KAREN PARKINSON Report Released Date/Time: Oct 18, 2020 02:36 PM Reporting Lab: [facility] [address] [facility] 7270 Performing Lab: [facility] [address] [facility] 7270 TSH () 3.39 mcIU/mL 0.45-5.33 Vital [...] of a patient's completed or amen ded [place] Advance and Rescinded Directives. The entries below indicate that a direc tive exists for the patient, but an actual copy is not included with this docume nt. The data comes from all [place] facilities. Date Advance Directives Provider Source Jun 07, 2011 ADVANCE DIRECTIVE TRENT LOZADA Radiology Reports: +/- 30 days of the encounter No Data Provided for This Section Pathology Reports: +/- 30 days of the encounter No Data Provided for This Section Encounter Notes: All associated encounter notes This section contains the clinical notes associated to the Encounter. Date/Time Encounter Note(s) Provider Source Feb 08, 2021 11:37 AM ADMINISTRATIVE NOTE: LOCAL TITLE: ADMINISTRATIVE NOTE STANDARD TITLE: ADMINISTRATIVE NOTE DATE OF NOTE: FEB 08, 2021@11:37 ENTRY DATE: FEB 08, 2021@11:37:13 AUTHOR: LILI PARRISH COSIGNER: URGENCY: STATUS: COMPLETED Clinical Contact/Call Center COVID 19 SCREEN UPDATE_2_August 2020 Screen version 7.1 Record the patient's responses to the following questions: (check all that apply, or None at the end) In the last 14 days have had new onset of any of the following symptoms? a. Chills: () Yes () No Comment(s): b. Cough: () Yes () No Comment(s): c. Diarrhea: () Yes () No Comment(s): d. Fatigue: () Yes () No Comment(s): e. Fever: () Yes () No Comment(s): f. Headache: () Yes () No Comment(s): g. Loss of taste or smell: () Yes () No Comment(s): h. Muscle pain (Myalgias): () Yes () No Comment(s): i. Nausea: () Yes () No Comment(s): j. Runny nose (Rhinorrhea): () Yes () No Comment(s): k. Shortness of breath (Dyspnea): () Yes () No Comment(s): l. Sore throat: () Yes () No Comment(s): m. Vomiting: () Yes () No Comment(s): No Symptoms () Within the last 14 days, have you had: Close exposure (within 6 feet for than 15 minutes) to someone with a febrile/respiratory illness () Yes Comment(s): Close exposure (within 6 feet for than 15 minutes) to someone with known or suspected case of COVID-19 () Yes Comment(s): No known exposure () Any symptom or exposure equal to positive screen: Patient has a POSITIVE symptom or exposure and requires further evaluation Nurse/Provider/Other notified () Yes Comments(s): Screen is negative () Patient is waiting on COVID-19 test results: () Yes () No Comment(s): Patient reports prior COVID-19 Diagnosis: () Yes () No Comment(s): () DECLINED SCREENING (x)SCREENING COULD NOT BE PERFORMED Ryan GAXIOLA NOT PRESENT /zay/ LILI PARRISH [facility] Signed: 02/08/2021 11:37 LILI PARRISH [facility]
--- OUTSIDE RECORDS SUMMARY | 2021-02-10 14:04 | XMS REPORT | Clinical Summary ---
Author Author [facility] Organization [facility] Address Unknown Phone Unavailable Care Team Providers Care Proof Load Mechanic Name Role Phone Christophe Kennedy MD PCP Allergies No Known Active Allergies Medications End Date Status Medication Sig Dispensed Refills Start Date Active apixaban (ELIQUIS) 5 mg Take 5 mg by 0 tablet mouth 2 (two) times a day. Active calcium/magnesium/vitamin Take by 0 D3 (MARTIN-MAG COMPLEX ORAL) mouth. Active omega 3 fish oil (SEA Take by mouth 0 OMEGA) DHA 200 mg-EPA 300 2 (two) times mg (1,000 mg) capsule a day. Active metoprolol succinate Take 300 mg 0 (TOPROL-XL) 200 MG 24 hr by mouth tablet daily. Active multivit with Take by 0 iron,hematinic (SUPER mouth. B-COMPLEX ORAL) Active digoxin (LANOXIN) 125 mcg Take 1 tablet 60 tablet 3 (0.125 mg) tablet (125 mcg 1 total) by mouth every evening. Active insulin glargine (LANTUS) Inject 5 10 mL 2 100 unit/mL injection Units under 1 the skin nightly. Active insulin lispro (HUMALOG) Inject 2-8 10 mL 2 0 100 unit/mL injection Units under 1 the skin 4 (four) times a day before meals and nightly. BG 0-120 give 0 units, BG 121-150 give 0 units, BG 151-200 give 2 units, BG 201-250 give 3 units, BG 251-300 Give 4 units, BG 301-350 give 5 units, BG 351-400 give 6 units, BG >400 Give 7 units Active polyethylene glycol Take 1 packet 14 each 0 01/13 (GLYCOLAX) 17 gram packet (17 g total) 1 by mouth daily as needed (constipation ). Active FREESTYLE LITE test Check blood 100 strip 0 strips sugar before 1 each meal and prior to bedtime Active alcohol swabs (ALCOHOL Apply at site 100 each 3 0 PADS) PadM of insulin 1 injection prior to medication administratio n 02/10/2021 Discontinued (Stop Taking at Discharge) ferrous sulfate 325 (65 Take 325 mg 0 FE) MG tablet by mouth daily with breakfast. 02/10/2021 Discontinued (Stop Taking at Discharge) hydroCHLOROthiazide Take 25 mg by 0 (HYDRODIURIL) 25 MG mouth daily. tablet 02/10/2021 Discontinued (Stop Taking at Discharge) losartan (COZAAR) 50 MG Take 50 mg by 0 tablet mouth daily. 02/10/2021 Discontinued (Stop Taking at Discharge) mirabegron (MYRBETRIQ) 50 Take by mouth 0 mg Tb24 tablet daily. 02/10/2021 Discontinued (Stop Taking at Discharge) potassium chloride Take 10 mEq 0 (KLOR-CON) 10 MEQ CR by mouth tablet daily. 02/10/2021 Discontinued (Stop Taking at Discharge) solifenacin (VESICARE) 10 Take 10 mg by 0 MG tablet mouth daily. 02/10/2021 Discontinued (Stop Taking at Discharge) trospium (SANCTURA) 20 mg Take 20 mg by 0 tablet mouth 2 (two) times a day. Active Problems Problem Noted Date Chronic systolic heart failure 02/06/2021 Last Assessment & Plan: Formatting of this note might be differ ent from the original. Cardiology consulted EF 30%.Moderately reduced left ventricu lar systolic function, with an estimated ejection fraction of 25%, Mod erate pulmonary hypertension. Estimated PA pressure = 55 mmHg recommending cardiac work up as OP whe n neurological condition is better defined Thrombocytopenia 02/04/2021 Last Assessment & Plan: Formatting of this note might be differ ent from the original. New onset. No previous history Prior to restarting Eliquis patient wa s on heparin products but currently not on any heparin. We will hold off o n evaluating for HIT Ultrasound abdomen as mentioned Daily CBCs. Improving. INR elevated bu t patient on eliquis MICHAELA 1:160 non specific. Cervical myelopathy 01/27/2021 Last Assessment & Plan: Formatting of this note might be differ ent from the original. 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 - expansile cervical lesion noted on ou tside imaging - NS and Neurology consulted on admissi on -NS feels that presentation not typical of neoplastic process. - As per neurology , cannot r/o primary malignancy but started on Solumedrol on 01/28 for a total of 5 dos es to possibly treat transverse myelitis completed with minimal improve ment. -repeat C and T spine MRIs reviewed and showing enlargement of long segment cord expansion in the cervical and uppe r thoracic region - CSF Glucose 126 Protein 246 -S/P LP-CSF studies as per Neuro-nclude CSF VDRL, meningitis/encephalitis panel negative negative. - multiple sclerosis panel light chains elevated. D/W neurology - not clinically significat . - CSF paraneoplastic panel negative Serologies SSA, SSB, complement, antiphospholipid antibodies, paraneoplastic antibodies, angiotensin-converting enzy me HTLV negative , MICHAELA 1:160 - Flow Cytometry negative, CSF Cytology negative for malignant cells. - PMR consulted - recommending [facility]. THOMAS working on placement -Discussed with [facility] on-call herminia rologist. As per requested by patient's family. [facility] stem is not on the [facility] care network system. Therefore this needs t o be an outpatient referral. Recommended neuro-oncology consult as a n outpatient. This was conveyed to the patient and family. Also discussed that I can refer the patient as an OP to [facility] neurology if the patient and f jennifery wishes. Spinal cord mass 01/26/2021 Last Assessment & Plan: Formatting of this note might be differ ent from the original. See plan above Essential hypertension Last Assessment & Plan: Formatting of this note might be differ ent from the original. - Continue Toprol 200 mg XR - Hold losartan and HCTZ given BP is so ft PAF (paroxysmal atrial fibrillation) Last Assessment & Plan: Formatting of this note might be differ ent from the original. - Will resume Eliquis given that the th ere is no surgery anticipated - Patient had an episode of Afib with R VR on 02/04 . Patient was loaded back on digoxin and started on patients home dose of Toprol XR 300 mg daily Hemiplegia Last Assessment & Plan: Formatting of this note might be differ ent from the original. Left arm/leg - Workup as above - PT/OT- [facility] T2DM (type 2 diabetes mellitus) Last Assessment & Plan: Formatting of this note might be differ ent from the original. - Reports that he takes PO meds at home , A1c controlled -Started on Lantus when blood sugars we re elevated due to steroids. Currently patient's blood sugars within range with Lantus 5 units and sliding scale Resolved Problems Problem Noted Date Resolved Date Hypotension 02/05/2021 02/09/2021 Last Assessment & Plan: Formatting of this note might be differ ent from the original. Improving with better HR control. Likel y related to Afib with RVR. Lactate normal. No leukocytosis. Bloo d cultures no growth to date Chest x-ray no focal consolidation When hypotension acutely worsened patie nt was started Zosyn but there is no clear indication of infection we will d /c Urinary retention 02/05/2021 02/10/2021 Last Assessment & Plan: Formatting of this note might be differ ent from the original. Likely related to spinal mass Frausto placed. Continue catheter care Patient failed clamp trial Urology consulted LFT elevation 02/04/2021 02/09/2021 Last Assessment & Plan: Formatting of this note might be differ ent from the original. Unclear etiology. Can be due to the hep atic congestion related to the decompensation related to Afib with RVR acute hepatitis panel- negative No previous history of liver disease US showing liver lesion 2.3 cm potentia lly Hemangioma. CT abdomen showing 2.3 cm lesion - like ly a hemangioma. Multiple subcentimeter low-attenuation lesions. Recommend f/u with repeat CT 3 months Constipation 01/31/2021 02/09/2021 Last Assessment & Plan: Formatting of this note might be differ ent from the original. No bowel movement since admission. X-ray KUB showing fecal impaction Improving Continue laxatives. UTI (urinary tract infection) 02/09/2021 Last Assessment & Plan: Formatting of this note might be differ ent from the original. - Cover with Rocephin. Completed a tota l of 7 days Will DC antibiotics - Cultures from OSH not available. Encounters Care Team Description Date Type Specialty 01/27/2021 Imaging Radiology Appointment 01/27/2021 Imaging Radiology Appointment 01/27/2021 Imaging Radiology Appointment 01/27/2021 Imaging Radiology Appointment 01/27/2021 Imaging Radiology Appointment Cheryl Malin MD Young, MD Jass Correa Samrina, MD Loku Galappaththy, Suguni, MD Hospitalist, Physician Diabetic polyneuropathy associated with type 2 diabetes mellitus (HCC) (Primary Dx); Spinal cord compression (HCC); Spinal cord mass (HCC); Essential hypertension; Hemiplegia, unspecified etiology, unspecified hemiplegia type, unspecified laterality (HCC); PAF (paroxysmal atrial fibrillation) (HCC); Type 2 diabetes mellitus without complication, without long-term current use of insulin (HCC); Acute cystitis without hematuria; Encounter for consultation; Acute left hemiparesis (HCC); Impaired mobility and ADLs; Neurogenic bladder; Type 2 diabetes mellitus with diabetic polyneuropathy, unspecified whether pcb designer insulin use (HCC); Urinary tract infection without hematuria, site unspecified; Constipation, unspecified constipation type; BAM (obstructive sleep apnea); Hepatic hemangioma 01/26/2021 [facility] Neurology - Encounter 02/10/2021 Malcom, Default Authenticator 01/26/2021 [employer] Malcom, Default Authenticator 01/26/2021 [employer] Malcom, Default Authenticator 01/26/2021 [employer] Malcom, Default Authenticator 01/26/2021 [employer] Malcom, Default Authenticator 01/26/2021 [employer] from Last 3 Months Family History Medical History Relation Name Comments Cancer Mother Relation Name Status Comments Mother Social History Date Tobacco Use Types Packs/Day Years Used Quit: 01/26/1997 Former Smoker Smokeless Tobacco: Never Used Comments Alcohol Use Standard Drinks/Week Not Currently 0 (1 standard drink = 0.6 o z pure alcohol) Sex Assigned at Date Recorded Not on file Last Filed Vital Signs Reading Time Taken Comments Vital Sign 124/80 02/10/2021 7:39 AM CDT Blood Pressure 74 02/10/2021 7:39 AM CDT Pulse 36.5 C (97.7 F) 02/10/2021 7:39 AM CDT Temperature 18 02/10/2021 7:39 AM CDT Respiratory Rate 94% 02/10/2021 7:39 AM CDT Oxygen Saturation - - Inhaled Oxygen Concentration 120.7 kg (266 lb) 02/10/2021 4:39 AM CDT daily weight Weight 180.3 cm (5' 11") 01/28/2021 3:17 PM CDT Height 37.1 01/28/2021 3:17 PM CDT Body Mass Index Plan of Treatment Care Team Description Date Type Specialty Vangie Marion PA [address] [place] [address] [phone] 03/03/2021 Office Visit Neurosurgery Health Maintenance Due Date Last Done Comments Advance Directive has 1940 been filed Diabetes Mellitus 1940 Ophthalmology Exam Diabetes Mellitus Urine 1941 Microalbumin Medicare Annual Wellness 1940 Td/Tdap# 1940 Pneumococcal Vaccine: 65+ 07/23/1947 Years (1 of 2 - PPSV23) Diabetes Mellitus Foot 07/23/1951 Exam Zoster Vaccine# (1 of 2) 07/23/1991 Advance Directive 2006 Conversation Depression Screening 2006 PHQ-9 # Patient Needs Advance 2006 Directive Influenza Vaccine (#1) 2021 01/24/2020 Diabetes Mellitus 07/23/2021 01/23/2021, Hemoglobin A1C 01/23/2021 Lipid Screening 02/04/2022 02/04/2021, 02/04/2021, 01/26/2021, Additional history exists Fall Risk Assessment # 02/10/2022 02/10/2021 COVID-19 Vaccine Completed 07/05/2020, 06/07/2020 Procedures Comments Procedure Name Priority Date/Time Associated Diag nosis GLUCOSE POC Routine 02/10/2021 7:43 AM CDT GLUCOSE POC Routine 02/09/2021 9:01 PM CDT GLUCOSE POC Routine 02/09/2021 4:34 PM CDT GLUCOSE POC Routine 02/09/2021 11:52 AM CDT GLUCOSE POC Routine 02/09/2021 7:41 AM CDT GLUCOSE POC Routine 02/08/2021 8:47 PM CDT GLUCOSE POC Routine 02/08/2021 5:06 PM CDT COMPREHENSIVE METABOLIC Routine 02/08/2021 PANEL 12:04 PM CDT CBC AND DIFF (MANUAL DIFF Routine 02/08/2021 IF NECESSARY) 12:04 PM CDT GLUCOSE POC Routine 02/08/2021 11:23 AM CDT GLUCOSE POC Routine 02/08/2021 7:56 AM CDT GLUCOSE POC Routine 02/07/2021 8:32 PM CDT GLUCOSE POC Routine 02/07/2021 5:08 PM CDT GLUCOSE POC Routine 02/07/2021 11:29 AM CDT COMPREHENSIVE METABOLIC Routine 02/07/2021 PANEL 8:01 AM CDT ACUTE HEPATITIS PANEL Routine 02/07/2021 8:01 AM CDT GLUCOSE POC Routine 02/07/2021 7:48 AM CDT GLUCOSE POC Routine 02/06/2021 11:49 PM CDT GLUCOSE POC Routine 02/06/2021 7:52 PM CDT GLUCOSE POC Routine 02/06/2021 7:[address] ABDOMEN W WO CONTRAST Routine 02/06/2021 4:25 PM CDT GLUCOSE POC Routine 02/06/2021 3:39 PM CDT COMPREHENSIVE METABOLIC Routine 02/06/2021 PANEL 11:55 AM CDT CBC AND DIFF (MANUAL DIFF Routine 02/06/2021 IF NECESSARY) 11:55 AM CDT GLUCOSE POC Routine 02/06/2021 11:09 AM CDT GLUCOSE POC Routine 02/06/2021 8:09 AM CDT GLUCOSE POC Routine 02/05/2021 8:47 PM CDT GLUCOSE POC Routine 02/05/2021 4:58 PM CDT GLUCOSE POC Routine 02/05/2021 11:38 AM CDT US ABDOMEN COMPLETE Routine 02/05/2021 10:20 AM CDT CBC AND DIFF (MANUAL DIFF Routine 02/05/2021 IF NECESSARY) 8:57 AM CDT BASIC METABOLIC PANEL Routine 02/05/2021 8:57 AM CDT GLUCOSE POC Routine 02/05/2021 7:08 AM CDT GLUCOSE POC Routine 02/05/2021 4:13 AM CDT GLUCOSE POC Routine 02/04/2021 11:42 PM CDT GLUCOSE POC Routine 02/04/2021 8:56 PM CDT LIPID PANEL Add-On 02/04/2021 5:57 PM CDT MAGNESIUM Add-On 02/04/2021 5:57 PM CDT LACTATE VENOUS WB, 4 HOUR Routine 02/04/2021 5:57 PM CDT GLUCOSE POC Routine 02/04/2021 4:47 PM CDT XR CHEST SINGLE VIEW STAT 02/04/2021 FRONTAL 4:20 PM CDT COMPREHENSIVE METABOLIC Add-On 02/04/2021 PANEL 3:57 PM CDT T4 FREE Add-On 02/04/2021 3:57 PM CDT THYROID STIMULATING Add-On 02/04/2021 HORMONE 3:57 PM CDT LACTATE VENOUS WB, 2 HOUR Routine 02/04/2021 3:57 PM CDT ECHO COMPLETE W DOPPLER Routine 02/04/2021 AND COLOR FLOW 1:55 PM CDT ECG Routine 02/04/2021 12:15 PM CDT CULTURE, BLOOD Timed 02/04/2021 12:12 PM CDT URINALYSIS MICROSCOPIC Routine 02/04/2021 ONLY 12:11 PM CDT URINALYSIS REFLEX Routine 02/04/2021 12:11 PM CDT GLUCOSE POC Routine 02/04/2021 12:07 PM CDT PROTHROMBIN TIME/INR Routine 02/04/2021 12:05 PM CDT CBC AND DIFF (MANUAL DIFF Routine 02/04/2021 IF NECESSARY) 12:05 PM CDT CULTURE, BLOOD Timed 02/04/2021 12:05 PM CDT TROPONIN Add-On 02/04/2021 12:03 PM CDT GLUCOSE POC Routine 02/04/2021 11:20 AM CDT GLUCOSE POC Routine 02/04/2021 7:50 AM CDT GLUCOSE POC Routine 02/03/2021 9:08 PM CDT GLUCOSE POC Routine 02/03/2021 5:38 PM CDT GLUCOSE POC Routine 02/03/2021 4:39 PM CDT GLUCOSE POC Routine 02/03/2021 11:15 AM CDT COMPREHENSIVE METABOLIC Routine 02/03/2021 PANEL 10:00 AM CDT CBC AND DIFF (MANUAL DIFF Routine 02/03/2021 IF NECESSARY) 10:00 AM CDT GLUCOSE POC Routine 02/03/2021 8:29 AM CDT GLUCOSE POC Routine 02/03/2021 12:14 AM CDT GLUCOSE POC Routine 02/02/2021 8:32 PM CDT GLUCOSE POC Routine 02/02/2021 4:15 PM CDT GLUCOSE POC Routine 02/02/2021 11:42 AM CDT GLUCOSE POC Routine 02/02/2021 8:16 AM CDT GLUCOSE POC Routine 02/01/2021 8:43 PM CDT LACTATE VENOUS WB, 4 HOUR Timed 02/01/2021 8:20 PM CDT LACTATE VENOUS WB, 2 HOUR Timed 02/01/2021 7:21 PM CDT GLUCOSE POC Routine 02/01/2021 5:41 PM CDT GLUCOSE POC Routine 02/01/2021 5:16 PM CDT LACTATE VENOUS WB STAT 02/01/2021 4:23 PM CDT GLUCOSE POC Routine 02/01/2021 12:10 PM CDT BASIC METABOLIC PANEL Routine 02/01/2021 10:56 AM CDT CBC AND DIFF (MANUAL DIFF Routine 02/01/2021 IF NECESSARY) 10:56 AM CDT GLUCOSE POC Routine 02/01/2021 7:32 AM CDT GLUCOSE POC Routine 02/01/2021 3:26 AM CDT GLUCOSE POC Routine 01/31/2021 11:29 PM CDT GLUCOSE POC Routine 01/31/2021 9:04 PM CDT GLUCOSE POC Routine 01/31/2021 5:25 PM CDT GLUCOSE POC Routine 01/31/2021 11:48 AM CDT XR ABDOMEN SINGLE VIEW AP Routine 01/31/2021 10:46 AM CDT GLUCOSE POC Routine 01/31/2021 7:49 AM CDT GLUCOSE POC Routine 01/31/2021 4:07 AM CDT GLUCOSE POC Routine 01/31/2021 12:03 AM CDT GLUCOSE POC Routine 01/30/2021 8:46 PM CDT GLUCOSE POC Routine 01/30/2021 4:46 PM CDT GLUCOSE POC Routine 01/30/2021 11:54 AM CDT GLUCOSE POC Routine 01/30/2021 7:52 AM CDT GLUCOSE POC Routine 01/30/2021 4:11 AM CDT GLUCOSE POC Routine 01/29/2021 11:56 PM CDT GLUCOSE POC Routine 01/29/2021 8:43 PM CDT GLUCOSE POC Routine 01/29/2021 6:42 PM CDT GLUCOSE POC Routine 01/29/2021 11:32 AM CDT GLUCOSE POC Routine 01/29/2021 7:58 AM CDT GLUCOSE POC Routine 01/29/2021 12:11 AM CDT GLUCOSE POC Routine 01/28/2021 8:51 PM CDT GLUCOSE POC Routine 01/28/2021 6:17 PM CDT GLUCOSE POC Routine 01/28/2021 11:00 AM CDT GLUCOSE POC Routine 01/28/2021 7:32 AM CDT IR LUMBAR PUNCTURE W Routine 01/28/2021 FLUORO 7:27 AM CDT GLUCOSE POC Routine 01/27/2021 11:46 PM CDT MRI THORACIC SPINE W WO Routine 01/27/2021 CONTRAST 9:14 PM CDT MRI HEAD W WO CONTRAST Routine 01/27/2021 9:14 PM CDT MRI CERVICAL SPINE W WO Routine 01/27/2021 CONTRAST 9:13 PM CDT GLUCOSE POC Routine 01/27/2021 9:13 PM CDT ANTIPHOSPHOLIPID PANEL II Routine 01/27/2021 6:04 PM CDT ANTICARDIOLIPIN Routine 01/27/2021 ANTIBODIES 6:04 PM CDT [id number] IGG Routine 01/27/2021 AND IGM 6:04 PM CDT COMPLEMENT TOTAL (CH50) Routine 01/27/2021 6:04 PM CDT C4 COMPLEMENT Routine 01/27/2021 6:04 PM CDT C3 COMPLEMENT Routine 01/27/2021 6:04 PM CDT HTLV-I/II ANTIBODIES QUAL Routine 01/27/2021 6:04 PM CDT PARANEOPLASTIC NADEEM Routine 01/27/2021 6:04 PM CDT LA/SSB ANTIBODY Routine 01/27/2021 6:04 PM CDT RO/SSA ANTIBODY Routine 01/27/2021 6:04 PM CDT ANTINUCLEAR ANTIBODY IFA Routine 01/27/2021 (MICHAELA) 6:04 PM CDT ANGIOTENSIN CONVERTING Routine 01/27/2021 ENZYME 6:04 PM CDT GLUCOSE POC Routine 01/27/2021 5:19 PM CDT ANGIOTENSION CONVERT Add-On 01/27/2021 ENZYME (WILLAM) CSF 4:00 PM CDT PARANEOPLASTIC AUTOAB Routine 01/27/2021 EVAL, CSF 4:00 PM CDT VDRL CSF Add-On 01/27/2021 4:00 PM CDT MENINGITIS/ENCEPHALITIS Add-On 01/27/2021 PANEL 4:00 PM CDT MULTIPLE SCLEROSIS Add-On 01/27/2021 PROFILE CSF 4:00 PM CDT GLUCOSE Routine 01/27/2021 4:00 PM CDT NMO/AQP4 IGG FACS, CSF Routine 01/27/2021 4:00 PM CDT LEUKEMIA / LYMPHOMA PANEL Routine 01/27/2021 BY FLOW CYTOMETRY 4:00 PM CDT LAB SPECIMEN TRACKING Routine 01/27/2021 4:00 PM CDT CSF CELL COUNT AND Routine 01/27/2021 DIFFERENTIAL 4:00 PM CDT WEST NILE VIRUS IGG+IGM Routine 01/27/2021 CSF 4:00 PM CDT PROTEIN CEREBROSPINAL Routine 01/27/2021 FLUID 4:00 PM CDT GLUCOSE CSF Routine 01/27/2021 4:00 PM CDT CULTURE, SPINAL FLUID Routine 01/27/2021 WITH GRAM STAIN 4:00 PM CDT MRI OUTSIDE IMAGES FOR Routine 01/27/2021 Encount er for PACS SPINE 2:38 PM CDT consultation MRI OUTSIDE IMAGES FOR Routine 01/27/2021 Encount er for PACS SPINE 2:37 PM CDT consultation MRI OUTSIDE IMAGES FOR Routine 01/27/2021 Encount er for PACS SPINE 2:36 PM CDT consultation MRI OUTSIDE IMAGES FOR Routine 01/27/2021 Encount er for PACS SPINE 2:35 PM CDT consultation MRI OUTSIDE IMAGES FOR Routine 01/27/2021 Encount er for PACS SPINE 2:34 PM CDT consultation CYTOLOGY NON-FELT HOOKER Routine 01/27/2021 2:23 PM CDT GLUCOSE POC Routine 01/27/2021 12:09 PM CDT COMPLETE BLOOD COUNT Routine 01/27/2021 10:42 AM CDT BASIC METABOLIC PANEL Routine 01/27/2021 10:42 AM CDT GLUCOSE POC Routine 01/27/2021 8:53 AM CDT SARS-COV-2, ADENIKE Routine 01/26/2021 (COVID-19) 10:55 PM CDT GLUCOSE POC Routine 01/26/2021 10:35 PM CDT POWERSHARE OUTSIDE IMAGES Routine 01/26/2021 FOR PACS 1:14 PM CDT POWERSHARE OUTSIDE IMAGES Routine 01/26/2021 FOR PACS 1:14 PM CDT POWERSHARE OUTSIDE IMAGES Routine 01/26/2021 FOR PACS 1:14 PM CDT POWERSHARE OUTSIDE IMAGES Routine 01/26/2021 FOR PACS 1:14 PM CDT POWERSHARE OUTSIDE IMAGES Routine 01/26/2021 FOR PACS 1:14 PM CDT from Last 3 Months Results * GLUCOSE POC (02/10/2021 7:43 AM CDT) Only the most recent of 74 results within the time period is included. Glucose POC 138 (H) 70 - 100 mg/dL [facility] Specimen Performing Organization Address City/State/ZIP Code P maame Number [facility] [id number] [place] [address] LABORATORIES * Comprehensive Metabolic Panel (02/08/2021 12:04 PM CDT) Only the most recent of 5 results within the time period is included. Sodium 134 133 - 147 MEQ/L [facility] Potassium 3.8 3.5 - 5.3 MEQ/L [facility] Chloride 103 96 - 112 MEQ/L [facility] Carbon Dioxide 25 20 - 32 MEQ/L [facility] Anion Gap 6 5 - 17 [facility] Calcium 7.8 (L) 8.4 - 10.5 mg/dL [facility] Glucose 210 (H) 70 - 100 mg/dL [facility] Protein Total 4.9 (L) 6.0 - 8.2 g/dL [facility] Serum [facility] Albumin 2.3 (L) 3.5 - 5.0 g/dL [facility] Alkaline 49 42 - 140 IU/L [facility] Lab Alanine 42 0 - 49 IU/L [facility] e Aspartate 25 15 - 46 IU/L [facility] e Bilirubin Total 1.5 (H) 0.2 - 1.3 mg/dL [facility] Blood Urea 24 7 - 26 mg/dL [facility] Creatinine 0.8 0.6 - 1.3 mg/dL [facility] eGFR Male AA 113 60 - 200 [facility] mL/min/1.73sq [facility] Lab eGFR Male 93 60 - 200 [facility] Non-AA mL/min/1.73sq [facility] Specimen Blood Performing Organization Address City/State/ZIP Code P maame Number [facility] [id number] [place] [address] LABORATORIES [facility] [address] [place] [address] * CBC and Diff (manual diff if necessary) (02/08/2021 12:04 PM CDT) Only the most recent of 6 results within the time period is included. Pathologist [facility] WBC 7.29 4.00 - 11.00 TH/uL [facility] RBC 4.36 4.31 - 5.84 MIL/uL [facility] Hemoglobin 14.3 13.0 - 17.0 g/dL [facility] Hematocrit 41 40 - 50 % [facility] MCV 94 80.0 - 99.0 fL [facility] MCH 33 27.0 - 34.0 pg [facility] MCHC 35 32 - 36 % [facility] RDW 13.1 11.5 - 14.5 % [facility] Platelet Count 133 (L) 140 - 400 TH/uL [facility] MPV 12.1 9.4 - 12.3 fL [facility] Nucleated RBCs 0 0 - 0 /100 [facility] % Neutrophils 78 45 - 78 % [facility] %Lymphocytes 10 (L) 15 - 47 % [facility] % Monocytes 9 0 - 12 % [facility] %Eosinophils 3 0 - 7 % [facility] %Basophils 0 0 - 2 % [facility] % Imm Grans 0 0 - 1 % [facility] # Granulocytes 5.72 1.70 - 6.80 TH/uL [facility] # Lymphocytes 0.74 (L) 1.00 - 3.30 TH/uL [facility] # Monocytes 0.63 0.20 - 0.90 TH/uL [facility] # Eosinophils 0.19 0.00 - 0.40 TH/uL [facility] # Basophils 0.01 0.00 - 0.10 TH/uL [facility] Specimen Blood Performing Organization Address City/State/ZIP Code P maame Number [address] [id number] LABORATORIES [facility] [address] [place] [id number] * Acute Hepatitis Panel (02/07/2021 8:01 AM CDT) Hepatitis B Non-reactive Non-reactive [facility] Core Ab [facility] Hospital Lab Hepatitis B Non-reactive Non-reactive [facility] Hepatitis C Ab Non-reactive Non-reactive [facility] Hepatitis A Ab Non-reactive Non-reactive [facility] Specimen Blood Performing Organization Address City/State/ZIP Code P maame Number [facility] [id number] [place] [address] LABORATORIES [facility] [address] [place] [address] * CT Abdomen w wo contrast (02/06/2021 4:25 PM CDT) Specimen Impressions Performed At Impression: GERMAN 2.3 cm hepatic hemangioma corresponding with findings on abdominal ultrasound. Multiple subcentimeter low-attenuation lesions within the liver too small to accurately characterize with C T, statistically representing small cysts. Follow-up with repeat CT or MRI in 3 mo nths could be considered to ensure stability given the patient's hi story READING SITE: [facility] Narrative Performed At Patient: ANGELA SANCHES Sex#: M #: 1940 [place]# : [id number] Location: [address] Accession# : [id number] Ordering Provider: BINU KISER Procedure Requested: [id number] CT ABDOM EN W WO CONTRAST Reason for Exam: To characterize hepa tic lesion Exam Ordered: 02/06/2021 15 47 Begin exam date/time: 02/06/2021 162 4 Exam Date/Time: 02/06/2021 162 5 Examination: CT ABDOMEN W WO CONTRAST Comparison:Abdominal ultrasound of the previous day History: To characterize hepatic l esion Technique: 100 mL Omnipaque 350 IV. Initial unenhanced axial 5 mm images of the abdomen were obtained. Additional images were obtained followi ng administration of intravenous contrast. Delayed images were obtained as well as coronal MIP and multiplanar reformatted images in coron al and sagittal planes. Findings: Small right and trace left pleural effu sions Abdomen: There is an approximately 2.3 x 2.1 cm lesion in the right hepatic lobe which appears to demonstrate peripheral nodular discontinuous enhancement best seen on coronal reform atted images (series 604, images 81-84) with some centripetal filling on delayed images. Scattered subcentimeter low-attenuation lesions w ithin the liver which are too small to accurately characterize with C T, statistically representing tiny cysts. Small bilateral renal cysts. The spleen, pancreas, gallbladder and b ilateral adrenal glands are unremarkable No retroperitoneal mass or lymphadenopa thy. No ascites fluid collections. The visualized segments of bowel are un remarkable The abdominal aorta is normal caliber. Main portal vein is patent. No suspicious osseous lesions. Procedure Note Interface, Rad Results In - 02/06/2021 5:08 PM CDT Patient: ANGELA SANCHES Sex#: M #: 1940 [place]#: [id number] Location: [address] Ordering Provider: BINU KISER Procedure Requested: [id number] CT ABDOMEN W WO CONTRAST Reason for Exam: To characterize hepatic lesion Exam Ordered: 02/06/2021 1547 Begin exam date/time: 02/06/2021 1624 Exam Date/Time: 02/06/2021 1625 Examination: CT ABDOMEN W WO CONTRAST Comparison:Abdominal ultrasound of the previous day History: To characterize hepatic lesion Technique: 100 mL Omnipaque 350 IV. Initial unenhanced axial 5 mm images of the abdomen were obtained. Additional images were obtained following administration of intravenous contrast. Delayed images were obtained as well as coronal MIP and multiplanar reformatted images in coronal and sagittal planes. Findings: Small right and trace left pleural effusions Abdomen: There is an approximately 2.3 x 2.1 cm lesion in the right hepatic lobe which appears to demonstrate peripheral nodular discontinuous enhancement best seen on coronal reformatted images (series 604, images 81-84) with some centripetal filling on delayed images. Scattered subcentimeter low-attenuation lesions within the liver which are too small to accurately characterize with CT, statistically representing tiny cysts. Small bilateral renal cysts. The spleen, pancreas, gallbladder and bilateral adrenal glands are unremarkable No retroperitoneal mass or lymphadenopathy. No ascites fluid collections. The visualized segments of bowel are unremarkable The abdominal aorta is normal caliber. Main portal vein is patent. No suspicious osseous lesions. IMPRESSION Impression: 2.3 cm hepatic hemangioma corresponding with findings on abdominal ultrasound. Multiple subcentimeter low-attenuation lesions within the liver too small to accurately characterize with CT, statistically representing small cysts. Follow-up with repeat CT or MRI in 3 months could be considered to ensure stability given the patient's history READING SITE: [facility] Performing Organization Address City/State/ZIP Code P maame Katerina PORTER * US Abdomen complete (02/05/2021 10:20 AM CDT) Specimen Impressions Performed At 1. Spleen is normal size. ALICIASON 2. Gallbladder contains sludge and shad owing stone. No evidence of acute cholecystitis. 3. 2.6 cm echogenic lesion in the left hepatic lobe, potentially a hemangioma. This should be confirmed wi th CT or MRI if patient has chronic liver disease, is at risk for d evelopment of liver cancer, or has known cancer. READING SITE: [facility] Narrative Performed At Patient: ANGELA SANCHES Sex#: M #: 1940 [place]# : [id number] Location: [place] [id number] Accession# : [id number] Ordering Provider: BINU KISER Procedure Requested: [id number] US ABDOM EN COMPLETE Reason for Exam: thrombocytopenia Exam Ordered: 02/04/2021 11 40 Begin exam date/time: 02/05/2021 095 8 Exam Date/Time: 02/05/2021 102 0 US ABDOMEN COMPLETE INDICATION: Thrombocytopenia. COMPARISON: None. TECHNIQUE: Complete abdominal ultrasoun d was performed utilizing realtime grayscale and color Doppler so nography as appropriate. FINDINGS: Liver: Liver measures 12.5 cm craniocau misael and is normal in contour. Hepatic parenchyma is heterogeneous in echotexture, but normal in echogenicity. 2.6 cm echogenic lesion i n the right hepatic lobe. Main portal vein is patent with antegrade/he patopetal flow. Gallbladder: Gallbladder contains sludg e and a shadowing stone. No gallbladder wall thickening or perichol ecystic fluid. Sonographic Pino's sign is absent. Bile Ducts: Common bile duct is normal caliber measuring 3 mm. No intrahepatic biliary ductal dilation. Pancreas: Pancreas is segmentally visua lized and normal where seen. Spleen: Spleen measures 10.8 cm in diane th. Kidneys: Kidneys measure 11.9 x 6.2 x 5 .4 cm on the right and 13.3 x 7.3 x 5.9 cm on the left. 2.5 cm left renal cyst. No shadowing calculus or hydronephrosis. Vasculature: Visualized abdominal aorta is normal caliber. IVC is patent with antegrade flow. Other: No ascites. Procedure Note Interface, Rad Results In - 02/05/2021 10:42 AM CDT Patient: ANGELA SANCHES Sex#: M #: 1940 [place]#: [id number] Location: [address] Ordering Provider: BINU KISER Procedure Requested: [id number] US ABDOMEN COMPLETE Reason for Exam: thrombocytopenia Exam Ordered: 02/04/2021 1140 Begin exam date/time: 02/05/2021 0958 Exam Date/Time: 02/05/2021 1020 US ABDOMEN COMPLETE INDICATION: Thrombocytopenia. COMPARISON: None. TECHNIQUE: Complete abdominal ultrasound was performed utilizing realtime grayscale and color Doppler sonography as appropriate. FINDINGS: Liver: Liver measures 12.5 cm craniocaudal and is normal in contour. Hepatic parenchyma is heterogeneous in echotexture, but normal in echogenicity. 2.6 cm echogenic lesion in the right hepatic lobe. Main portal vein is patent with antegrade/hepatopetal flow. Gallbladder: Gallbladder contains sludge and a shadowing stone. No gallbladder wall thickening or pericholecystic fluid. Sonographic Pino's sign is absent. Bile Ducts: Common bile duct is normal caliber measuring 3 mm. No intrahepatic biliary ductal dilation. Pancreas: Pancreas is segmentally visualized and normal where seen. Spleen: Spleen measures 10.8 cm in length. Kidneys: Kidneys measure 11.9 x 6.2 x 5.4 cm on the right and 13.3 x 7.3 x 5.9 cm on the left. 2.5 cm left renal cyst. No shadowing calculus or hydronephrosis. Vasculature: Visualized abdominal aorta is normal caliber. IVC is patent with antegrade flow. Other: No ascites. IMPRESSION 1. Spleen is normal size. 2. Gallbladder contains sludge and shado wing stone. No evidence of acute cholecystitis. 3. 2.6 cm echogenic lesion in the left h epatic lobe, potentially a hemangioma. This should be confirmed with CT or MRI if patient has chronic liver disease, is at risk for development of liver cancer, or has known cancer. READING SITE: [facility] Performing Organization Address City/State/ZIP Code P maame Number [email or web address] * Basic Metabolic Panel (02/05/2021 8:57 AM CDT) Only the most recent of 3 results within the time period is included. Sodium 135 133 - 147 MEQ/L [facility] Potassium 4.1 3.5 - 5.3 MEQ/L [facility] Chloride 103 96 - 112 MEQ/L [facility] Carbon Dioxide 29 20 - 32 MEQ/L [facility] Anion Gap 3 (L) 5 - 17 [facility] Calcium 7.6 (L) 8.4 - 10.5 mg/dL [facility] Glucose 107 (H) 70 - 100 mg/dL [facility] Blood Urea 23 7 - 26 mg/dL [facility] Creatinine 0.9 0.6 - 1.3 mg/dL [facility] eGFR Male AA 98 60 - 200 [facility] mL/min/1.73sq [facility] eGFR Male 81 60 - 200 [facility] Non-AA mL/min/1.73sq Hospital Lab Specimen Blood Performing Organization Address City/[facility] Code P maame Number [address] [address] LABORATORIES [facility] [address] [place] [address] * Lactate Venous WB, 4 Hour (02/04/2021 5:57 PM CDT) Only the most recent of 2 results within the time period is included. Lactate Venous 1.2 0.0 - 2.0 mmol/L [facility] Specimen Blood Performing Organization Address City/State/ZIP Code P maame Number [address] [address] LABORATORIES [facility] [address] [place] [address] * Magnesium (02/04/2021 5:57 PM CDT) Magnesium 2.2 1.4 - 2.7 mg/dL [facility] Specimen Blood Performing Organization Address City/State/ZIP Code P maame Number [address] [address] LABORATORIES [facility] [address] [place] [address] * Lipid Panel (02/04/2021 5:57 PM CDT) Cholesterol 115 100 - 200 mg/dL [facility] HDL Cholesterol 29 (L) 40 - 110 mg/dL [facility] Non-HDL 86 0 - 130 mg/dL [facility] Triglycerides 83 0 - 150 mg/dL [facility] LDL Cholesterol 69 0 - 99 mg/dL [facility] Cholesterol/HDL 4.0 0.0 - 4.5 [facility] Specimen Blood Performing Organization Address City/State/ZIP Code P maame Number [address] [address] LABORATORIES [facility] [address] [place] [address] * XR Chest single view frontal (02/04/2021 4:20 PM CDT) Specimen Impressions Performed At focal [facility] Cardiomegaly READING SITE: [facility] Narrative Performed At Patient: ANGELA SANCHES Sex#: M #: 1940 [place]# : [id number] Location: [place] [address] Accession# : [id number] Ordering Provider: BINU KISER Procedure Requested: [id number] XR CHEST SINGLE VIEW FRONTAL Reason for Exam: r/o CAP Exam Ordered: 02/04/2021 16 02 Begin exam date/time: 02/04/2021 161 5 Exam Date/Time: 02/04/2021 162 0 XR CHEST SINGLE VIEW FRONTAL INDICATION: r/o CAP COMPARISON STUDY: None. FINDINGS: Lungs: The lung volume is normal. No fo martin airspace disease. Normal pulmonary vasculature. Pleura: No pleural effusion or pneumoth orax. Heart and Mediastinum: Cardiomegaly. Bones: Unremarkable Procedure Note Interface, Rad Results In - 02/04/2021 4:35 PM CDT Patient: ANGELA SANCHES Sex#: M #: 1940 [place]#: [id number] Location: [address] Ordering Provider: BINU KISER Procedure Requested: [id number] XR CHEST SINGLE VIEW FRONTAL Reason for Exam: r/o CAP Exam Ordered: 02/04/2021 1602 Begin exam date/time: 02/04/2021 1615 Exam Date/Time: 02/04/2021 1620 XR CHEST SINGLE VIEW FRONTAL INDICATION: r/o CAP COMPARISON STUDY: None. FINDINGS: Lungs: The lung volume is normal. No focal airspace disease. Normal pulmonary vasculature. Pleura: No pleural effusion or pneumothorax. Heart and Mediastinum: Cardiomegaly. Bones: Unremarkable IMPRESSION No focal consolidation Cardiomegaly READING SITE: [facility] Performing Organization Address City/[facility]/ZIP Code P maame Number KESSON * Lactate Venous WB, 2 Hour (02/04/2021 3:57 PM CDT) Only the most recent of 2 results within the time period is included. Lactate Venous 1.9 0.0 - 2.0 mmol/L [facility] Specimen Blood Performing Organization Address City/[facility]/ZIP Code P maame Number [address] [address] LABORATORIES [facility] [address] [place] [address] * Thyroid Stimulating Hormone (02/04/2021 3:57 PM CDT) Thyroid 4.29 0.47 - 4.68 uIU/mL [facility] Hormone Specimen Blood Performing Organization Address City/[facility]/ZIP Code P maame Number [address] [address] LABORATORIES [facility] [address] [place] [address] * T4 Free (02/04/2021 3:57 PM CDT) T4 Free 1.8 0.8 - 2.2 ng/dL [facility] Specimen Blood Performing Organization Address City/State/ZIP Code P maame Number [facility] [address] [place] [address] LABORATORIES [facility] [address] [place] [address] * Echo Complete with Doppler and Color Flow (02/04/2021 1:55 PM CDT) Ejection 25 % [facility] Fraction Specimen Impressions Performed At 1. Moderately reduced left ventricular systolic fun ction, with an estimated PROSOLV ejection fraction of 25% 2. No significant valvular abnormalit ies. 3. Moderate pulmonary hypertension. E stimated PA pressure = 55 mmHg. No previous study available for napoleon navas. Dr Dieudonne Michaels (Electronically Signed) Final Date: 04 February 2021 15 :53 Narrative Performed At [facility] ECHOCARDIOGRAM REPORT [facility] Name: ANGELA SANCHES Date: 02/04/2021 13:21 Chart #: [id number] : 1940 Location: [facility] Sono: brittney Age: 80 Gender: M Referring: BINU KISER Room #: N213 Fellow: Indication:lbbb Procedure: ECHO COMPLETE W DOPPLER AN D COLOR FLOW BP: 84 / 60 HR: 140 Ht: 71 Wt: 271 BSA 2.5 : 2D ECHO MEASUREMENTS LV Diastolic Diameter Bas 5.7 cm IVS Diastolic Thickness 1.1 cm LV Systolic Diameter Base 4.6 cm LVPW Diastolic Thickness 1.1 cm LA Systolic Diameter LX 4.7 cm Ascending Aorta Diameter 3.5 cm AORTIC VALVE DOPPLER AV Peak Velocity 171 cm/ s LVOT AV Gustabo Ratio 0.42 AV Peak Gradient 11.7 mm Hg TRICUSPID VALVE DOPPLER RV Systolic Pressure 54.6 mmHg WALL SEGMENT ANALYSIS: ROUTINE LVSI : 2 %FM : 0 LAD : 2 LCX : 2 RCA : 2 Hypokinetic - Mid Ante rior Septum, Basal Anterior Septum, B heber Posterior, Mid Posterior, Basal Septum, M id Septum, Apical Septum, Apical Lateral, M id Lateral, Basal Lateral, Basal Inferior, M id Inferior, Apical Inferior, Apical Anterior, M id Anterior, Basal Anterior, Rogers FINDINGS LV Ejection Fraction: 25 Patient declined the use of contrast. Resting tachycardia, irregular rhythm , atrial fibrillation. Moderately reduced left ventricular s ystolic function, with an estimated average ejection fraction of 25% (beat to beat variability). Mild concentric left ventricular hype rtrophy. Global hypokinesis with abnormal sept al activation due to left bundle branch block. Normal left ventricular dimensions. Normal right ventricular size and sys tolic function. Moderate right atrial dilatation. S evere left atrial dilatation. LA volume index= 49 ml/m2. Unable to assess diastolic function d ue to underlying rhythm. Sclerotic aortic valve with trivial r egurgitation. Mitral annular calcification extendin g to leaflets with trivial regurgitation. Normal pulmonic valve with trivial re gurgitation. Normal tricuspid valve with mild regu rgitation. Estimated PA pressure = 55 mmHg. No significant pericardial effusion. IVC is not dilated but not responsive to inspiration, indicating elevated RA pressure. Ascending aorta measures 3.5 cm. No obvious intracardiac masses or thr ombi. Procedure Note Interface, External Ris In - 02/04/2021 3:54 PM CDT ECHOCARDIOGRAM REPORT [facility] Name: ANGELA SANCHES Date: 02/04/2021 13:21 Chart #: [id number] : 1940 Location: [facility] Sono: brittney Age: 80 Gender: M Referring: BINU KISER Room #: N213 Fellow: Indication:lbbb Procedure: ECHO COMPLETE W DOPPLER AND COLOR FLOW BP: 84 / 60 HR: 140 Ht: 71 Wt: 271 BSA 2.5 : 2D ECHO MEASUREMENTS LV Diastolic Diameter Bas 5.7 cm IVS Diastolic Thickness 1.1 cm LV Systolic Diameter Base 4.6 cm LVPW Diastolic Thickness 1.1 cm LA Systolic Diameter LX 4.7 cm Ascending Aorta Diameter 3.5 cm AORTIC VALVE DOPPLER AV Peak Velocity 171 cm/s LVOT AV Gustabo Ratio 0.42 AV Peak Gradient 11.7 mmHg TRICUSPID VALVE DOPPLER RV Systolic Pressure 54.6 mmHg WALL SEGMENT ANALYSIS: ROUTINE LVSI : 2 %FM : 0 LAD : 2 LCX : 2 RCA : 2 Hypokinetic - Mid Anterior Septum, Basal Anterior Septum, Basal Posterior, Mid Posterior, Basal Septum, Mid Septum, Apical Septum, Apical Lateral, Mid Lateral, Basal Lateral, Basal Inferior, Mid Inferior, Apical Inferior, Apical Anterior, Mid Anterior, Basal Anterior, Rogers FINDINGS LV Ejection Fraction: 25 Patient declined the use of contrast. Resting tachycardia, irregular rhythm, atrial fibrillation. Moderately reduced left ventricular systolic function, with an estimated average ejection fraction of 25% (beat to beat variability). Mild concentric left ventricular hypertrophy. Global hypokinesis with abnormal septal activation due to left bundle branch block. Normal left ventricular dimensions. Normal right ventricular size and systolic function. Moderate right atrial dilatation. Severe left atrial dilatation. LA volume index= 49 ml/m2. Unable to assess diastolic function due to underlying rhythm. Sclerotic aortic valve with trivial regurgitation. Mitral annular calcification extending to leaflets with trivial regurgitation. Normal pulmonic valve with trivial regurgitation. Normal tricuspid valve with mild regurgitation. Estimated PA pressure = 55 mmHg. No significant pericardial effusion. IVC is not dilated but not responsive to inspiration, indicating elevated RA pressure. Ascending aorta measures 3.5 cm. No obvious intracardiac masses or thrombi. IMPRESSION 1. Moderately reduced left ventricular systolic function, with an estimated ejection fraction of 25% 2. No significant valvular abnormalities. 3. Moderate pulmonary hypertension. Estimated PA pressure = 55 mmHg. No previous study available for comparison. 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: [id number] : 1940 Requested By: BINU CHRISTINA Order Number: [id number] Reading MD: William Lai Measurements Intervals [place] Rate: 148 P: SD: QRS: 37 QRSD: 144 T: 236 QT: 336 QTc: 528 Interpretive Statements ATRIAL FIBRILLATION, V-RATE 92-183 IVCD, CONSIDER ATYPICAL LBBB VENTRICULAR PREMATURE COMPLEX Electronically Signed On 02-06-2021 15:2 1:57 CDT by William Lai Procedure Note Interface, External Ris In - 02/06/2021 3:22 PM CDT [facility] Test Date: 2021-02-04 Pat Name: ANGELA SANCHES Department: [facility] Room: [facility] Gender: Male [employer] Director: [id number] : 1940 Requested By: BINU CHRISTINA Order Number: [id number] Reading MD: William Lai Measurements Intervals [place] Rate: 148 P: SD: QRS: 37 QRSD: 144 T: 236 QT: 336 QTc: 528 Interpretive Statements ATRIAL FIBRILLATION, V-RATE 92-183 IVCD, CONSIDER ATYPICAL LBBB VENTRICULAR PREMATURE COMPLEX Electronically Signed On 02-06-2021 15:21:57 CDT by William Lai Performing Organization Address City/[facility]/ZIP Code P maame Number [email or web address] * Culture, Blood (02/04/2021 12:12 PM CDT) Only the most recent of 2 results within the time period is included. Culture Result No Growth at 5 days [facility] Specimen Blood Narrative Performed At L AC ; 20 ML [facility] LABORATORIES Performing Organization Address City/[facility]/ZIP Code P maame Number [address] [address] LABORATORIES [facility] [address] [place] [address] * Urinalysis Microscopic Only (02/04/2021 12:11 PM CDT) Microscopic RBC 0-5 0 - 5 /hpf [facility] Microscopic WBC 0-5 0 - 5 /hpf [facility] Epithelial Absent Absent [facility] Hyaline Cast Absent Absent [facility] Bacteria Absent Absent [facility] Amorphous Urate Present (A) Absent [facility] Specimen Catheter Urine Performing Organization Address [facility]/ZIP Code P maame Number [address] [address] LABORATORIES [facility] [address] [place] [address] * Urinalysis Reflex (02/04/2021 12:11 PM CDT) Appearance, Dark Yellow [facility] Glucose Urine Negative Negative mg/dL [facility] Bilirubin Urine Small (A) Negative [facility] Ketones Urine Negative Negative mg/dL [facility] Specific 1.019 1.001 - 1.030 [facility] Hemoglobin Trace (A) Negative [facility] PH Urine 5.5 5.0 - 8.0 [facility] Protein Urine Negative Negative mg/dL [facility] Urobilinogen Negative Negative EU/dL [facility] Nitrite Urine Negative Negative [facility] Leukocyte Positive (A) Negative [facility] Specimen Catheter Urine Performing Organization Address City/[facility]/ZIP Code P maame Number [address] [address] LABORATORIES [facility] [address] [place] [address] * Prothrombin Time/INR (02/04/2021 12:05 PM CDT) Pathologist [facility] Protime 21.1 (H) 11.4 - 15.0 sec [facility] INR 1.9 (H) 0.8 - 1.2 [facility] Specimen Blood Performing Organization Address City/[facility]/ZIP Code P maame Number [address] [address] LABORATORIES [facility] [address] [place] [address] * Troponin (02/04/2021 12:03 PM CDT) Troponin 0.01 0.00 - 0.03 ng/mL [facility] Comment: Hospital Lab Troponin Value Interpretation 0.00 - 0.03 Healthy 0.04 - 0.12 Increased Cardiac Risk >0.12 Myocardial Infarction Troponin may not become elevated until 6 to 8 hours after onset of symptoms. Specimen Blood Performing Organization Address City/[facility]/ZIP Code P maame Number [address] [place] [address] LABORATORIES [facility] [address] [place] [address] * Lactate Venous WB - 0hr STAT (02/01/2021 4:23 PM CDT) Lactate Venous 3.7 (H) 0.0 - 2.0 mmol/L [facility] Specimen Blood Performing Organization Address City/State/ZIP Code P maame Number [address] [address] LABORATORIES [facility] [address] [place] [address] * XR Abdomen single view AP (01/31/2021 10:46 AM CDT) Specimen Impressions Performed At Probable fecal impaction in the rectum. Nonobstructiv e bowel gas [facility] pattern. ATTESTATION STATEMENT: Staff Radiologis t has personally reviewed this study and agrees with the findings in t his report. READING SITE: [facility] Narrative Performed At Patient: ANGELA SANCHES Sex#: M #: 1940 [place]# : [id number] Location: [address] Accession# : [id number] Ordering Provider: BINU KISER Procedure Requested: [id number] XR ABDOM EN SINGLE VIEW AP Reason for Exam: abd pain, r/o SBO Exam Ordered: 01/31/2021 08 52 Begin exam date/time: 01/31/2021 102 9 Exam Date/Time: 01/31/2021 104 6 XR ABDOMEN SINGLE VIEW AP INDICATION: Abd pain, R/O SBO. COMPARISON: None. TECHNIQUE: Supine abdomen. FINDINGS: Abdomen: Dilated rectum measuring up to 8 cm with stool impaction. Curvilinear radio lucencies within sigm oid and rectum likely gastrointestinal material. Otherwise no nobstructive bowel gas pattern. Lower Chest: Limited view of the lower chest demonstrates no acute abnormality. Skeletal Structures and Soft Tissues: N o acute osseous abnormality. Moderately calcified pelvic vessels. No rmal soft tissues. Procedure Note Interface, Rad Results In - 01/31/2021 11:22 AM CDT Patient: ANGELA SANCHES Sex#: M #: 1940 [place]#: [id number] Location: [address] Ordering Provider: BINU KISER Procedure Requested: [id number] XR ABDOMEN SINGLE VIEW AP Reason for Exam: abd pain, r/o SBO Exam Ordered: 01/31/2021 0852 Begin exam date/time: 01/31/2021 1029 Exam Date/Time: 01/31/2021 1046 XR ABDOMEN SINGLE VIEW AP INDICATION: Abd pain, R/O SBO. COMPARISON: None. TECHNIQUE: Supine abdomen. FINDINGS: Abdomen: Dilated rectum measuring up to 8 cm with stool impaction. Curvilinear radio lucencies within sigmoid and rectum likely gastrointestinal material. Otherwise nonobstructive bowel gas pattern. Lower Chest: Limited view of the lower chest demonstrates no acute abnormality. Skeletal Structures and Soft Tissues: No acute osseous abnormality. Moderately calcified pelvic vessels. Normal soft tissues. IMPRESSION Probable fecal impaction in the rectum. Nonobstructive bowel gas pattern. ATTESTATION STATEMENT: Staff Radiologist has personally reviewed this study and agrees with the findings in this report. READING SITE: [facility] Organization Address City/State/ZIP Code P maame Number [place] * IR Lumbar puncture w fluoro (01/28/2021 7:27 AM CDT) Specimen Impressions Performed At Successful fluoroscopically-guided lumbar puncture wi thout complication. [place] ATTESTATION STATEMENT: The Staff Physic apple has personally reviewed the images and dictated, reviewed, or edite d the final report. READING SITE: [facility] Narrative Performed At Patient: ANGELA SANCHES Sex#: M #: 1940 [place]# : [id number] Location: [address]- Accession# : [id number] Ordering Provider: CHITRA GOODMAN Procedure Requested: [id number] IR LUMBA R PUNCTURE W FLUORO Reason for Exam: progressive left jovanny ed weakness, cord edema/mass on MRI Exam Ordered: 01/27/2021 10 11 Begin exam date/time: 01/27/2021 155 8 Exam Date/Time: IR LUMBAR PUNCTURE W FLUORO DATE: 01/27/2021 3:58 PM INDICATION: progressive left sided weak ness, cord edema/mass on MRI. CONSENT: The nature of the procedure as well as its risks, benefits, and alternatives were discussed with the grayson padron by Dr. Tam. Risks specifically discussed included pain, b leeding, infection, spinal headache, cerebral spinal fluid (CSF) l eak, and potential nerve damage. The patient questions were answered, an d both verbal and written consent was given to proceed. ATTENDING PHYSICIAN: Dr. Becerril, the ne urointerventional attending physician, was present for the entire p rocedure. PROPERTY CLAIMS ADJUSTER: Dr. Ranjan Martínez, neuroradiology interventional fellow. Dr. Tam, neurology resident TECHNIQUE: A "time out" procedure was performed verifying the patient's identity and procedure to be performed. The L2-3 level was localized with fluoroscopy. The skin overlying th is level was then sterilely prepped, draped, and infiltrated with 1 % lidocaine for local anesthesia. Under fluoroscopic guidance, a 20 gauge 3.5 inch spinal needle was inserted into the thecal sac at this le gustabo. Opening pressure was not requested. After CSF was collected, the needle was removed and a sterile bandage was applied. FLUORO TIME: 0.0 minutes RADIATION EXPOSURE: Air Kerma (Ka,r) 3. 4 mGy FINDINGS: Opening pressure was not requested. Clear cerebrospinal fluid was collected in several tubes. The collected fluid was sent to the laboratory for an alysis. The patient tolerated the procedure wel l. There were no immediate complications. The patient was transfer red from the department in stable condition. Procedure Note Interface, Rad Results In - 01/27/2021 4:59 PM CDT Patient: ANGELA SANCHES Sex#: M #: 1940 [place]#: [id number] Location: [place] [id number] Ordering Provider: CHITRA GOODMAN Procedure Requested: [id number] IR LUMBAR PUNCTURE W FLUORO Reason for Exam: progressive left sided weakness, cord edema/mass on MRI Exam Ordered: 01/27/2021 1011 Begin exam date/time: 01/27/2021 1558 Exam Date/Time: IR LUMBAR PUNCTURE W FLUORO DATE: 01/27/2021 3:58 PM INDICATION: progressive left sided weakness, cord edema/mass on MRI. CONSENT: The nature of the procedure as well as its risks, benefits, and alternatives were discussed with the patient by Dr. Tam. Risks specifically discussed included pain, bleeding, infection, spinal headache, cerebral spinal fluid (CSF) leak, and potential nerve damage. The patient questions were answered, and both verbal and written consent was given to proceed. ATTENDING PHYSICIAN: Dr. Becerril, the neurointerventional attending physician, was present for the entire procedure. PROPERTY CLAIMS ADJUSTER: Dr. Ranjan Martínez, neuroradiology interventional fellow. Dr. Tam, neurology resident TECHNIQUE: A "time out" procedure was performed verifying the patient's identity and procedure to be performed. The L2-3 level was localized with fluoroscopy. The skin overlying this level was then sterilely prepped, draped, and infiltrated with 1% lidocaine for local anesthesia. Under fluoroscopic guidance, a 20 gauge 3.5 inch spinal needle was inserted into the thecal sac at this level. Opening pressure was not requested. After CSF was collected, the needle was removed and a sterile bandage was applied. FLUORO TIME: 0.0 minutes RADIATION EXPOSURE: Air Kerma (Ka,r) 3.4 mGy FINDINGS: Opening pressure was not requested. Clear cerebrospinal fluid was collected in several tubes. The collected fluid was sent to the laboratory for analysis. The patient tolerated the procedure well. There were no immediate complications. The patient was transferred from the department in stable condition. IMPRESSION Successful fluoroscopically-guided lumbar puncture without complication. ATTESTATION STATEMENT: The Staff Physician has personally reviewed the images and dictated, reviewed, or edited the final report. READING SITE: [facility] Performing Organization Address City/[facility]/ZIP Code P maame Number [place] * MRI Thoracic Spine w wo contrast (01/27/2021 9:14 PM CDT) Specimen Impressions Performed At Long segment cord expansion extending from the cervic al spinal cord into [place] the upper thoracic spinal cord with que stionable subtle enhancement. This could be due to intramedullary keyshawn plasm such as spinal ependymoma or spinal astrocytoma. Other differenti al considerations would include inflammatory process such as transverse myelitis, neuromyelitis optica, or neurosarcoidosis. ATTESTATION STATEMENT: The Staff Radiol ogist has personally reviewed the images and dictated, reviewed, or edite d the final report. READING SITE: [facility] Narrative Performed At Patient: ANGELA SANCHES Sex#: M #: 1940 [place]# : [id number] Location: [address] Accession# : [id number] Ordering Provider: CHITRA GOODMAN Procedure Requested: [id number] MRI THOR ACIC SPINE W WO CONTRAST Reason for Exam: concern for expansil e cord mass at OSH, progressive left sided weakness Exam Ordered: 01/27/2021 10 10 Begin exam date/time: 01/27/2021 194 3 Exam Date/Time: 01/27/2021 211 4 MRI THORACIC SPINE W WO CONTRAST DATE: 01/27/2021 9:15 PM INDICATION: concern for expansile cord mass at OSH, progressive left sided weakness TECHNIQUE: Multi-planar multi-weighted magnetic resonance imaging of the thoracic spine was performed with and w ithout contrast using the standard protocol. 20 cc of Multihance contrast was administered intravenously. COMPARISON: MRI outside images of the spine 01/22/2021. FINDINGS: Patient motion artifact degrades image quality. 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 At the level of T2, this measures approximately 10 x 11 mm (seri es 23, image 16). The lesion is iso to slightly hypointense on T1-weigh jovno imaging. The lesion is predominantly located in the central co rd. Questionable subtle foci of intrinsic enhancement. No evidence of p eritumoral cysts. Additional intramedullary lesion causing cord expa nsion at the level of T4/T5 measuring up to 0.9 x 0.9 x 3.9 cm (AP by TR by CC) (series 23, image 13 and series 9, image 22). The lesion is again well capsulated and predominantly involves the central cord with associated cord expansion. The lesion is hyperintense on T2-weight ed imaging and hypointense/isointense on T1-weighted i maging. Questionable foci of intrinsic enhancement. The thoracic spine is normally aligned. No acute fracture. Vertebral body heights are maintained without com pression deformity. Mild multilevel degenerative disc desiccatio n and disc height loss. Scattered vertebral body hemangiomas. The conus medullaris terminates at a no rmal level. Retained secretions within the thoracic trachea. Otherwise, No soft tissue abnormality within the visualize d chest or abdomen. The visualized thoracic aorta is normal martin iber. Minimal multilevel disc bulges without high-grade spinal canal stenosis or neural foraminal narrowing. Procedure Note Interface, Rad Results In - 01/28/2021 9:33 AM CDT Patient: ANGELA SANCHES Sex#: M #: 1940 [place]#: [id number] Location: [address] Ordering Provider: CHITRA GOODMAN Procedure Requested: [id number] MRI THORACIC SPINE W WO CONTRAST Reason for Exam: concern for expansile cord mass at OSH, progressive left sided weakness Exam Ordered: 01/27/2021 1010 Begin exam date/time: 01/27/20211942 Exam Date/Time: 01/27/20212113 MRI THORACIC SPINE W WO CONTRAST DATE: 01/27/2021 9:15 PM INDICATION: concern for expansile cord mass at OSH, progressive left sided weakness TECHNIQUE: Multi-planar multi-weighted magnetic resonance imaging of the thoracic spine was performed with and without contrast using the standard protocol. 20 cc of Multihance contrast was administered intravenously. COMPARISON: MRI outside images of the spine 01/22/2021. FINDINGS: Patient motion artifact degrades image quality. 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 At the level of T2, this measures approximately 10 x 11 mm (series 23, image 16). The lesion is iso to slightly hypointense on T1-weighted imaging. The lesion is predominantly located in the central cord. Questionable subtle foci of intrinsic enhancement. No evidence of peritumoral cysts. Additional intramedullary lesion causing cord expansion at the level of T4/T5 measuring up to 0.9 x 0.9 x 3.9 cm (AP by TR by CC) (series 23, image 13 and series 9, image 22). The lesion is again well capsulated and predominantly involves the central cord with associated cord expansion. The lesion is hyperintense on T2-weighted imaging and hypointense/isointense on T1-weighted imaging. Questionable foci of intrinsic enhancement. The thoracic spine is normally aligned. No acute fracture. Vertebral body heights are maintained without compression deformity. Mild multilevel degenerative disc desiccation and disc height loss. Scattered vertebral body hemangiomas. The conus medullaris terminates at a normal level. Retained secretions within the thoracic trachea. Otherwise, No soft tissue abnormality within the visualized chest or abdomen. The visualized thoracic aorta is normal caliber. Minimal multilevel disc bulges without high-grade spinal canal stenosis or neural foraminal narrowing. 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 This could be due to intramedullary neoplasm such as spinal ependymoma or spinal astrocytoma. Other differential considerations would include inflammatory process such as transverse myelitis, neuromyelitis optica, or neurosarcoidosis. ATTESTATION STATEMENT: The Staff Radiologist has personally reviewed the images and dictated, reviewed, or edited the final report. READING SITE: [facility] Performing Organization Address City/State/ZIP Code P maame Number [place] * MRI Head w wo contrast (01/27/2021 9:14 PM CDT) Specimen Impressions Performed At 1. No acute infarct or hemorrhage. [place] 2. No brain mass or abnormal enhancemen t. 3. Mild subcortical and deep periventri cular white matter FLAIR hyperintensities, a nonspecific finding , most commonly seen with chronic small vessel ischemic disease. 4. Please see separately dictated cervi martin and thoracic spine MRI for spinal cord findings. READING SITE: [facility]. ATTESTATION STATEMENT: The Staff Radiologist has personally re viewed the images and dictated, reviewed, or edited the final report. Narrative Performed At Patient: ANGELA SANCHES Sex#: M #: 1940 [place]# : [id number] Location: [address] Accession# : [id number] Ordering Provider: CHITRA GOODMAN Procedure Requested: [id number] MRI HEAD W WO CONTRAST Reason for Exam: progressive left jovanny ed weakness Exam Ordered: 01/27/2021 10 11 Begin exam date/time: 01/27/2021 194 3 Exam Date/Time: 01/27/2021 211 4 MRI HEAD W WO CONTRAST Date: 01/27/2021 9:14 PM Indication: progressive left sided we akness Comparison: None. Technique: Multiplanar multisequence MR I of the brain was performed with and without intravenous contrast using the standard protocol. 20 cc Multihance contrast was administered in travenously during the exam. Findings: No acute infarct. No acute or chronic h emorrhage. The ventricles are normal in size and configuration withou t hydrocephalus. Mild scattered FLAIR hyperintensities in the subcortic al and periventricular deep white matter, a nonspecific finding, most com monly seen with chronic small vessel ischemic disease. Mild generalized cerebral and cerebella r volume loss. No abnormal enhancement. The scalp and calvarium are normal. The pituitary and sella are normal. No Chiari malformation. Findings of the cervical spine will be dictated separately. The visualized orbits and globes are no rmal. The visualized paranasal sinuses are clear. Hypertrophy of the r ight middle turbinate. The mastoid air cells are clear. Normal flow voids within the vertebral, basilar, and internal carotid arteries indicating patency. Procedure Note Interface, Rad Results In - 01/28/2021 9:35 AM CDT Patient: ANGELA SANCHES Sex#: M #: 1940 [place]#: [id number] Location: [address] Ordering Provider: CHITRA GOODMAN Procedure Requested: [id number] MRI HEAD W WO CONTRAST Reason for Exam: progressive left sided weakness Exam Ordered: 01/27/2021 1011 Begin exam date/time: 01/27/20213 Exam Date/Time: 01/27/20214 MRI HEAD W WO CONTRAST Date: 01/27/2021 9:14 PM Indication: progressive left sided weakness Comparison: None. Technique: Multiplanar multisequence MRI of the brain was performed with and without intravenous contrast using the standard protocol. 20 cc Multihance contrast was administered intravenously during the exam. Findings: No acute infarct. No acute or chronic hemorrhage. The ventricles are normal in size and configuration without hydrocephalus. Mild scattered FLAIR hyperintensities in the subcortical and periventricular deep white matter, a nonspecific finding, most commonly seen with chronic small vessel ischemic disease. Mild generalized cerebral and cerebellar volume loss. No abnormal enhancement. The scalp and calvarium are normal. The pituitary and sella are normal. No Chiari malformation. Findings of the cervical spine will be dictated separately. The visualized orbits and globes are normal. The visualized paranasal sinuses are clear. Hypertrophy of the right middle turbinate. The mastoid air cells are clear. Normal flow voids within the vertebral, basilar, and internal carotid arteries indicating patency. IMPRESSION 1. No acute infarct or hemorrhage. 2. No brain mass or abnormal enhancement . 3. Mild subcortical and deep periventric ular white matter FLAIR hyperintensities, a nonspecific finding, most commonly seen with chronic small vessel ischemic disease. 4. Please see separately dictated cervic al and thoracic spine MRI for spinal cord findings. READING SITE: [facility]. ATTESTATION STATEMENT: The Staff Radiologist has personally reviewed the images and dictated, reviewed, or edited the final report. Performing Organization Address City/State/ZIP Code P maame Number [place] * MRI Cervical Spine w wo contrast (01/27/2021 9:13 PM CDT) Specimen Impressions Performed At Long segment cord expansion extending from the cervic al spinal cord into [place] the upper thoracic spinal cord with que stionable subtle enhancement. This could be due to intramedullary keyshawn plasm such as spinal ependymoma or spinal astrocytoma. Other differenti al considerations would include inflammatory process such as transverse myelitis, neuromyelitis optica, or neurosarcoidosis. ATTESTATION STATEMENT: The Staff Radiol ogist has personally reviewed the images and dictated, reviewed, or edite d the final report. READING SITE: [facility] Narrative Performed At Patient: ANGELA SANCHES Sex#: M #: 1940 [place]# : [id number] Location: [place] [address] Accession# : [id number] Ordering Provider: CHITRA GOODMAN Procedure Requested: [id number] MRI CERV ICAL SPINE W WO CONTRAST Reason for Exam: concern for expansil e mass at OSH, progressive left sided weakness Exam Ordered: 01/27/2021 10 10 Begin exam date/time: 01/27/2021 194 3 Exam Date/Time: 01/27/2021 211 3 MRI CERVICAL SPINE W WO CONTRAST DATE: 01/27/2021 9:14 PM INDICATION: concern for expansile mas s at OSH, progressive left sided weakness TECHNIQUE: Multiplanar multisequence ma gnetic resonance imaging of the cervical spine was performed with and w ithout administration of intravenous contrast using the standard cervical spine protocol. 20 cc of MultiHance contrast was administered intravenously during the examination. COMPARISON: Outside MRI cervical spin e images 01/22/2021. FINDINGS: Patient motion artifact degrades image quality. Long segment abnormal cord signal with diffuse expansion of the cervical spinal cord from the levels of C4-T2. T here is associated intrinsic hyperintense signal in T2-weighted imag es and isointense on T1-weighted images. Maximum extent of expansion of the spinal cord occurs at the level of C5-C7. Questionable trace enha ncement within the spinal cord. The cervical spine is normally aligned. No acute fracture. Moderate multilevel degenerative disc desiccatio n and disc height loss. No marrow replacing process to suggest malignancy . On the limited views of the cranial cav ity and brain, the cerebellum and kike have normal morphology and signal characteristics. No Chiari malformation. No soft tissue abnormality. Normal sign al voids are present in the vertebral arteries. C2-3: No significant spinal canal steno sis or neural foraminal narrowing. C3-4: Small disc osteophyte complex. No high-grade spinal canal stenosis or neural foraminal narrowing. C4-5: Small disc bulge/disc osteophyte complex. Mild left neural foraminal narrowing. Mild spinal canal stenosis. C5-6: Disc osteophyte complex with mode rate spinal canal stenosis. Uncovertebral arthrosis on the right re sults in mild to moderate right neural foraminal narrowing. Moderate le ft facet arthrosis with mild left neural foraminal narrowing foraminal na rrowing. Mild to moderate spinal canal stenosis.. C6-7: Left paracentral disc osteophyte complex. Left greater than right uncovertebral arthrosis with mild left greater than right neural foraminal narrowing. Mild spinal canal stenosis. C7-T1: Small disc osteophyte complex. N o high-grade spinal canal stenosis or neural foraminal narrowing. Procedure Note Interface, Rad Results In - 01/28/2021 9:34 AM CDT Patient: ANGELA SANCHES Sex#: M #: 1940 [place]#: [id number] Location: [address] Ordering Provider: CHITRA GOODMAN Procedure Requested: [id number] MRI CERVICAL SPINE W WO CONTRAST Reason for Exam: concern for expansile mass at OSH, progressive left sided weakness Exam Ordered: 01/27/2021 1010 Begin exam date/time: 01/27/2021 1943 Exam Date/Time: 01/27/20212112 MRI CERVICAL SPINE W WO CONTRAST DATE: 01/27/2021 9:14 PM INDICATION: concern for expansile mass at OSH, progressive left sided weakness TECHNIQUE: Multiplanar multisequence magnetic resonance imaging of the cervical spine was performed with and without administration of intravenous contrast using the standard cervical spine protocol. 20 cc of MultiHance contrast was administered intravenously during the examination. COMPARISON: Outside MRI cervical spine images 01/22/2021. FINDINGS: Patient motion artifact degrades image quality. Long segment abnormal cord signal with diffuse expansion of the cervical spinal cord from the levels of C4-T2. There is associated intrinsic hyperintense signal in T2-weighted images and isointense on T1-weighted images. Maximum extent of expansion of the spinal cord occurs at the level of C5-C7. Questionable trace enhancement within the spinal cord. The cervical spine is normally aligned. No acute fracture. Moderate multilevel degenerative disc desiccation and disc height loss. No marrow replacing process to suggest malignancy. On the limited views of the cranial cavity and brain, the cerebellum and kike have normal morphology and signal characteristics. No Chiari malformation. No soft tissue abnormality. Normal signal voids are present in the vertebral arteries. C2-3: No significant spinal canal stenosis or neural foraminal narrowing. C3-4: Small disc osteophyte complex. No high-grade spinal canal stenosis or neural foraminal narrowing. C4-5: Small disc bulge/disc osteophyte complex. Mild left neural foraminal narrowing. Mild spinal canal stenosis. C5-6: Disc osteophyte complex with moderate spinal canal stenosis. Uncovertebral arthrosis on the right results in mild to moderate right neural foraminal narrowing. Moderate left facet arthrosis with mild left neural foraminal narrowing foraminal narrowing. Mild to moderate spinal canal stenosis.. C6-7: Left paracentral disc osteophyte complex. Left greater than right uncovertebral arthrosis with mild left greater than right neural foraminal narrowing. Mild spinal canal stenosis. C7-T1: Small disc osteophyte complex. No high-grade spinal canal stenosis or neural foraminal narrowing. 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 This could be due to intramedullary neoplasm such as spinal ependymoma or spinal astrocytoma. Other differential considerations would include inflammatory process such as transverse myelitis, neuromyelitis optica, or neurosarcoidosis. ATTESTATION STATEMENT: The Staff Radiologist has personally reviewed the images and dictated, reviewed, or edited the final report. READING SITE: [facility] Organization Address City/State/ZIP Code P maame Number [place] * Paraneoplastic Nadeem (01/27/2021 6:04 PM CDT) Paraneoplastic See Note [facility] Interp Comment: Laboratories No informative autoantibodies were detected in theParaneoplastic Evaluation. However, a negative result doesnot exclude neurological autoimmunity with or withoutassociated neoplasia. Sensitivity and specificity ofantibody testing are enhanced by testing both serum andCSF. Reflex added None. [facility] Comment: Laboratories ADDITIONAL INFORMATION This test was developed and its performance characteristicsdetermined by [facility] in a manner consistent with CLIArequirements. This test has not been cleared or approved bythe U.S. Food and Drug Administration. Anti-Neuronal Negative <1:240 titer [facility] Nuc Ab,Tp 1 [facility] Anti-Neuronal Negative <1:240 titer [facility] Nuc Ab,Tp 2 Comment: Laboratories ADDITIONAL INFORMATION This test was developed and its performance characteristicsdetermined by [facility] in a manner consistent with CLIArequirements. This test has not been cleared or approved bythe U.S. Food and Drug Administration. Anti-Neuronal Negative <1:240 titer [facility] Nuc Ab,Tp 3 Comment: Laboratories ADDITIONAL INFORMATION This test was developed and its performance characteristicsdetermined by [facility] in a manner consistent with CLIArequirements. This test has not been cleared or approved bythe U.S. Food and Drug Administration. Anti-Glial Negative <1:240 titer [facility] Nuclear Ab,Type Comment: Laboratories 1 ADDITION AL INFORMATION This test was developed and its performance characteristicsdetermined by [facility] in a manner consistent with CLIArequirements. This test has not been cleared or approved bythe U.S. Food and Drug Administration. Purkinje Cell Negative <1:240 titer [facility] Cyto Ab, Tp 1 Comment: Laboratories ADDITIONAL INFORMATION This test was developed and its performance characteristicsdetermined by [facility] in a manner consistent with CLIArequirements. This test has not been cleared or approved bythe U.S. Food and Drug Administration. Purkinje Cell Negative <1:240 titer [facility] Cyto Ab,Tp 2 Comment: Laboratories ADDITIONAL INFORMATION This test was developed and its performance characteristicsdetermined by [facility] in a manner consistent with CLIArequirements. This test has not been cleared or approved bythe U.S. Food and Drug Administration. Purkinje Cell Negative <1:240 titer [facility] Cyto Ab,Tp Tr Comment: Laboratories ADDITIONAL INFORMATION This test was developed and its performance characteristicsdetermined by [facility] in a manner consistent with CLIArequirements. This test has not been cleared or approved bythe U.S. Food and Drug Administration.Test Performed by:[facility] - [address] Director: Guru Mata M.D. Ph.D.; CLIA# [id number] Amphiphysin Ab Negative <1:240 titer [facility] Comment: Laboratories ADDITIONAL INFORMATION This test was developed and its performance characteristicsdetermined by [facility] in a manner consistent with CLIArequirements. This test has not been cleared or approved bythe U.S. Food and Drug Administration. CRMP-5-IgG Negative <1:240 titer [facility] Comment: Laboratories ADDITIONAL INFORMATION This test was developed and its performance characteristicsdetermined by [facility] in a manner consistent with CLIArequirements. This test has not been cleared or approved bythe U.S. Food and Drug Administration. P/Q-Type 0.01 <=0.02 nmol/L [facility] Calcium Channel Comment: Laboratories Nadeem ADDITION AL INFORMATION This test was developed and its performance characteristicsdetermined by [facility] in a manner consistent with CLIArequirements. This test has not been cleared or approved bythe U.S. Food and Drug Administration. AChR Ganglionic 0.00 <=0.02 nmol/L [facility] Neuronal Nadeem Comment: Laboratories ADDITIONAL INFORMATION This test was developed and its performance characteristicsdetermined by [facility] in a manner consistent with CLIArequirements. This test has not been cleared or approved bythe U.S. Food and Drug Administration. VGKC-Nadeem 0.00 <=0.02 nmol/L [facility] Comment: Laboratories ADDITIONAL INFORMATION This test was developed and its performance characteristicsdetermined by [facility] in a manner consistent with CLIArequirements. This test has not been cleared or approved bythe U.S. Food and Drug Administration. Specimen Blood Performing Organization Address City/State/ZIP Code P maame Number [id number] [place], [place] [address] [facility] Laboratories [address] [place] [address] * HTLV-I/II Antibodies Qual (01/27/2021 6:04 PM CDT) Pathologist [facility] HTLV-I/II Negative Negative [facility] Antibodies QL Comment: Performed at: [employer] [address] [id number] Banquet Prep Cook: Miesha Barrett PhD, Phone: [phone] Specimen Blood Performing Organization Address City/[facility]/ZIP Code P maame Number [id number] [place] [address] [facility] Interface [id number] [place] [address] * Angiotensin Converting Enzyme (01/27/2021 6:04 PM CDT) Pathologist [facility] Angiotensin 19 14 - 82 U/L [facility] Converting Comment: Enzyme Performed at: - [facility] [address] [id number] Banquet Prep Cook: Rony Berg MD, Phone: [phone] Specimen Blood Performing Organization Address [facility] P maame Number [id number] [place] [address] [facility] Interface [id number] [place] [address] * Complement Total (CH50) (01/27/2021 6:04 PM CDT) Pathologist [facility] Complement 53 >41 U/mL [facility] Total (CH50) Comment: Age Male Female 1 - 30 days Not Estab. Not Estab. 31 days - 6 months >32 >20 7 months - 17 years >39 >39 >17 years >41 >41 NOTE: The adult (">17 years") reference interval range is used to flag abnormals on this report. If the patient is 17 years old or younger, use the table above to determine out of range values. Performed at: - [facility] [id number] Banquet Prep Cook: Rony Berg MD, Phone: [phone] Specimen Blood Performing Organization Address [facility]/ZIP Code P maame Number [id number] [place] [address] 11 [facility] Interface [id number] * Antinuclear Antibody IFA (MICHAELA) (01/27/2021 6:04 PM CDT) MICHAELA Speckled [facility] Lab Pattern 1 MICHAELA 1:160 [facility] Lab Titer 1 MICHAELA Qualitative Positive (A)Comment: [facility] uses the [facility] Lab Lite HEp-2 indirect immunofluorescent assay for screening and semi-quantitative determination of anti-nuclear antibodies (MICHAELA) in human serum. Specimen Blood Performing Organization Address City/[facility]/ZIP Code P maame Number [facility] [address] [place] [address] LABORATORIES [facility] Lab [address] [place] [address] * Antiphospholipid Panel II (01/27/2021 6:04 PM CDT) Pathologist [facility] Protime 17.0 (H)Comment: Tissue 11.4 - 15.0 sec [facility] plasminogen activators (TPA) Hospital Lab and anticoagulation therapy, including Vitamin K, Xa, and direct thrombin inhibitors, can affect clot-based testing. APL testing cannot be performed when patient is taking Eliquis. INR 1.4 (H) 0.8 - 1.2 [facility] APTT 24 22 - 34 sec [facility] Specimen Blood Performing Organization Address City/[facility] Code P maame Number [address] [address] LABORATORIES [facility] [address] [place] [address] * RO/SSA Antibody (01/27/2021 6:04 PM CDT) RO/SSA Antibody Negative Negative [facility] Specimen Blood Performing Organization Address City/[facility]/ZIP Code P maame Number [address] [address] LABORATORIES [facility] [address] [place] [address] * LA/SSB Antibody (01/27/2021 6:04 PM CDT) LA/SSB Antibody Negative Negative [facility] Specimen Blood Performing Organization Address City/[facility]/ZIP Code P maame Number [facility] [address] [place] [address] LABORATORIES [facility] [address] [place] [address] * C4 Complement (01/27/2021 6:04 PM CDT) C4 Complement 10 (L) 14 - 44 mg/dL [facility] Specimen Blood Performing Organization Address City/State/ZIP Code P maame Number [facility] [address] [place] [address] LABORATORIES [facility] [address] [place] [address] * C3 Complement (01/27/2021 6:04 PM CDT) C3 Complement 103 83 - 172 mg/dL [facility] Specimen Blood Performing Organization Address City/State/ZIP Code P maame Number [facility] [address] [place] [address] LABORATORIES [facility] [address] [place] [address] * Igty-8-Hcohjbstwkga IgG and IgM (01/27/2021 6:04 PM CDT) B2 GLYCOPROTEIN 7 0 - 20 [facility] (IGG)AB [facility] Lab B2 GLYCOPROTEIN 2 0 - 20 [facility] (IGM)AB [facility] Lab Specimen Blood Performing Organization Address City/[facility]/ZIP Code P maame Number [facility] [address] [place] [address] LABORATORIES [facility] [address] [place] [address] * Anticardiolipin Antibodies (01/27/2021 6:04 PM CDT) Anticardiolipin <3 0 - 20 CU [facility] IgG Hospital Lab Anticardiolipin 21 (H) 0 - 20 CU [facility] IgM Hospital Lab Specimen Blood Performing Organization Address City/State/ZIP Code P maame Number [facility] [address] [place] [address] LABORATORIES [facility] [address] [place] [address] * Paraneoplastic Autoab Eval, CSF (01/27/2021 4:00 PM CDT) AGNA-1, CSF Negative <1:2 titer [facility] Comment: Laboratories ADDITIONAL INFORMATION This test was developed and its performance characteristicsdetermined by [facility] in a manner consistent with CLIArequirements. This test has not been cleared or approved bythe U.S. Food and Drug Administration. Amphiphysin Ab, Negative <1:2 titer [facility] CSF Comment: Laboratories ADDITIONAL INFORMATION This test was developed and its performance characteristicsdetermined by [facility] in a manner consistent with CLIArequirements. This test has not been cleared or approved bythe U.S. Food and Drug Administration. JAMESON-1, CSF Negative <1:[address] [facility] JAMESON-2, CSF Negative <1:2 titer [facility] Comment: Laboratories ADDITIONAL INFORMATION This test was developed and its performance characteristicsdetermined by [facility] in a manner consistent with CLIArequirements. This test has not been cleared or approved bythe U.S. Food and Drug Administration. JAMESON-3, CSF Negative <1:2 titer [facility] Comment: Laboratories ADDITIONAL INFORMATION This test was developed and its performance characteristicsdetermined by [facility] in a manner consistent with CLIArequirements. This test has not been cleared or approved bythe U.S. Food and Drug Administration. CRMP-5-IgG, CSF Negative <1:2 titer [facility] Comment: Laboratories ADDITIONAL INFORMATION This test was developed and its performance characteristicsdetermined by [facility] in a manner consistent with CLIArequirements. This test has not been cleared or approved bythe U.S. Food and Drug Administration. Paraneoplastic See Note [facility] Interp Comment: Laboratories No informative autoantibodies were detected in theParaneoplastic Evaluation. However, a negative result doesnot exclude neurological autoimmunity with or withoutassociated neoplasia. Sensitivity and specificity ofantibody testing are enhanced by testing both serum andCSF. PERFORMANCE MANAGER-1, CSF Negative <1:2 titer [facility] Comment: Laboratories ADDITIONAL INFORMATION This test was developed and its performance characteristicsdetermined by [facility] in a manner consistent with CLIArequirements. This test has not been cleared or approved bythe U.S. Food and Drug Administration. PERFORMANCE MANAGER-2, CSF Negative <1:2 titer [facility] Comment: Laboratories ADDITIONAL INFORMATION This test was developed and its performance characteristicsdetermined by [facility] in a manner consistent with CLIArequirements. This test has not been cleared or approved bythe U.S. Food and Drug Administration.Test Performed by:[address] Director: Guru Mata M.D. Ph.D.; CLIA# [id number] PERFORMANCE MANAGER-Tr, CSF Negative <1:2 titer [facility] Comment: Laboratories ADDITIONAL INFORMATION This test was developed and its performance characteristicsdetermined by [facility] in a manner consistent with CLIArequirements. This test has not been cleared or approved bythe U.S. Food and Drug Administration. Reflex added None. [facility] Comment: Laboratories ADDITIONAL INFORMATION This test was developed and its performance characteristicsdetermined by [facility] in a manner consistent with CLIArequirements. This test has not been cleared or approved bythe U.S. Food and Drug Administration. Specimen CSF Performing Organization Address [facility] Code P maame Number [id number] [place] [address] [address] [address] * NMO/AQP4 IGG FACS, CSF (01/27/2021 4:00 PM CDT) NMO/AQP4-IGG Negative Negative [facility] FACS, CSF Comment: Laboratories Aquaporin-4 antibody testing is more sensitive in serumthan in spinal fluid. Recommend serum testing now if notcompleted, and repeating in 6 months if clinical suspicionis high. Negative result can occur in the setting ofimmunosuppression. ---------ADDITIONAL INFORMATION This test was developed and its performance characteristicsdetermined by [facility] in a manner consistent with CLIArequirements. This test has not been cleared or approved bythe U.S. Food and Drug Administration.Test Performed by:[address] [address] Director: uGru Mata M.D. Ph.D.; CLIA# [id number] Specimen CSF Performing Organization Address City/[facility] Code P maame Number [id number] [place] [address] [address] [address] * Leukemia/Lymphoma Panel Flow Cytometry (01/27/2021 4:00 PM CDT) AP_REPORT-[facility] Lab (unformatted) [address] [address] FLOW CYTOMETRY REPORT Patient Name: ANGELA SANCHES Gender: M : 1940 Specimen Type: Fluid, Cerebrospinal Ordering Physician: CHITRA GOODMAN Collection Date: 01/27/2021 16:00 Ordering Facility: [facility] Received Date: 01/27/2021 16:54 Clinical Information: Cord mass Interpretation: Findings provide no immunophenotypic evidence of a non-Hodgkin lymphoma. Final interpretation requires correlation with morphologic, clinical and other laboratory features. Total Events: 1,953 Viability: 82% Lineage % of Total Population Analysis Cells B-cells: 2 B cells express CD19 and CD20. Too few cells are available for accurate clonality assessment. T-cells: 74 T cells show normal expression of T cell markers CD2, CD3, CD5, and CD7. The CD4:CD8 ratio is 3.0. Lymphocyte [place] RESULTS Lymphocyte [place] T Cell Markers B Cell Markers Additional Markers CD % Intensity CD % Intensity CD % Intensity 2 98 10 0 45 100 3 96 19 2 3/HLA-DR 10 20 2 5 97 19/5 0 7 72 4 68 8 23 4:8 3 Electronically Signed: tOilia Jo 01/28/2021 5:18 PM Total CD markers tested = 12 : Cell surface markers include CD2, CD3, CD4, CD5, CD7, CD8, CD10, CD19, CD20, CD45, and HLA-DR. Viability was assessed using 7-AAD. This test was developed and its performance characteristics determined by [facility]. It has not been cleared or approved by the Food and Drug Administration (FDA). This test is used for clinical purposes. It should not be regarded as investigational or for research. The laboratory is regulated under CLIA as qualified to perform high-complexity testing and accredited by the [employer] (CAP). 1 Specimen AP_SPECIMEN Performing Organization Address City/State/ZIP Code P maame Number [address] [address] LABORATORIES [facility] [address] [place] [address] * Multiple Sclerosis Profile (CSF and Serum) (01/27/2021 4:00 PM CDT) Bands, CSF 7Comment: The value no value bands [facility] originally released by on Laboratories ############### was changed to 7 by IF on 02/02/2021 14:15 CSF Oligoclonal 0 <2 bands [facility] Interp Comment: Laboratories The oligoclonal band assay detected no unique IgG bands inthe CSF. This is a negative result.Test Performed by:[facility] - [address] [address] Director: Guru Mata M.D. Ph.D.; CLIA# [id number] value no value originally released by on ############### was changed to 0 by IF on 02/02/2021 14:15 Pyatt Free 0.1040 (H) <0.1000 mg/dL [facility] Light Chain, Comment: Laboratories CSF The kappa free light concentration measured in CSFis at or greater than the threshold associated withdemyelinating disease. This is a positive result.These findings, however, are not specific for MSbecause CSF-specific immunoglobulin synthesis mayalso be detected in patients with other neurologic diseases(infectious, inflammatory, cerebrovascular, autoimmune,and paraneoplastic). Clinical correlation recommended. -ADDITIONAL INFORMATION This test has been modified from the blanket maker'sinstructions. Its performance characteristics weredetermined by [facility] in a manner consistent withCLIA requirements. This test has not been cleared orapproved by the U.S. Food and Drug Administration. Serum Bands 7 bands [facility] Comment: Laboratories Test Performed by:[facility] - [address] [address] Director: Guru Mata M.D. Ph.D.; CLIA# [id number] value no value originally released by on ############### was changed to 7 by IF on 02/02/2021 14:15 Specimen CSF Performing Organization Address City/State/ZIP Code P amame Number [id number] [place], [place] [address] [facility] Laboratories [address] [facility] N [address] * Angiotension Convert Enzyme (WILLAM) CSF (01/27/2021 4:00 PM CDT) Angiotension 1.7 0.0 - 2.5 U/L [facility] Convert Enzyme Comment: Laboratories CSF This test was developed and its performance characteristicsdetermined by [employer]. It has not been cleared orapproved by the [place] Food and Drug Administration. This testwas performed in a CLIA certified laboratory and isintended for clinical purposes.Performed By: [facility] [id number] [place], [place] [id number] Director: Rachel Dunne MDTest Performed by:[facility] [id number] [place] [address] Specimen CSF Performing Organization Address City/[facility]/ZIP Code [facility] Number [id number] [facility] [place] [address] * West Nile Virus IgG+IgM CSF (01/27/2021 4:00 PM CDT) Pathologist [facility] West Nile Virus Negative Negative [facility] IgM CSF Comment: No detectable West Nile Virus IgM Antibody. If a recent infection is suspected, another specimen should be submitted for testing within 7-14 days. Performed at: - [address] [id number] Banquet Prep Cook: Rony Berg MD, Phone: [phone] West Nile Virus Negative Negative [facility] IgG CSF Comment: No detectable West Nile Virus IgG Antibody. If a recent infection is suspected, another specimen should be submitted for testing within 7-14 days. Specimen CSF Performing Organization Address City/[facility] Number [facility]RL [id number] [place] [address] [facility] Interface [id number] [place] [address] [place] [address] * Meningitis/Encephalitis Panel (01/27/2021 4:00 PM CDT) Pathologist [facility] Cryptococcus Not Detected Not Detected [facility]'s neoformans/gatt [facility] Lab ii Cytomegalovirus Not Detected Not Detected [facility] Enterovirus Not Detected Not Detected [facility] Escherichia Not Detected Not Detected [facility]'s coli K1 [facility] Haemophilus Not Detected Not Detected [facility] influenzae [facility] Herpes simplex Not Detected Not Detected [facility] 1 [facility] Herpes simplex Not Detected Not Detected [facility] virus 2 [facility] Human Not Detected Not Detected [facility] parechovirus [facility] Listeria Not Detected Not Detected [facility] monocytogenes [facility] Neisseria Not Detected Not Detected [facility] meningitidis [facility] Streptococcus Not Detected Not Detected [facility] agalactiae [facility] Streptococcus Not Detected Not Detected [facility] pneumoniae [facility] Varicella Not Detected Not Detected [facility] zoster virus [facility] Specimen CSF Performing Organization Address City/State/ZIP Code P maame Number [facility] [address] [place] [address] LABORATORIES [facility] [address] [place] [address] * VDRL CSF (01/27/2021 4:00 PM CDT) VDRL CSF Non Reactive Non Norma:<1:1 [facility] Comment: Performed at: [facility] [id number] Banquet Prep Cook: Rony Berg MD, Phone: [id number] Specimen CSF Performing Organization Address City/[facility]/ZIP Code P maame Number [id number] [place], [place] [address] [facility] Interface [id number] [place] [address] [place] [address] * Protein CSF (01/27/2021 4:00 PM CDT) Protein CSF 246 (H) 15 - 60 mg/dL [facility] Lab Specimen CSF Performing Organization Address City/[facility] Code P maame Number [address] [address] LABORATORIES [facility] Lab [address] [place] [address] * CSF Cell Count and Differential (01/27/2021 4:00 PM CDT) CSF Color Colorless [facility] CSF Clarity Clear [facility] CSF Absent Absent [facility] Xanthochromia [facility] Lab CSF WBC Count 8 (H) 0 - 5 /uL [facility] CSF RBC Count 0 /uL [facility] Tube Number, 3 [facility] Lab CSF Neutrophils 1 0 - 6 % [facility] CSF Lymphs 84 (H) 40 - 80 % [facility] CSF 15 15 - 45 % [facility] Lab phages CSF Eosinophils 0 % [facility] CSF Basophils 0 % [facility] CSF Ependymal 0 /100 [facility] ([place]) Cells [facility] Lab CSF Blasts 0 % [facility] CSF Cells 100 [facility] Lab Specimen CSF Performing Organization Address City/[facility]/ZIP Code P maame Number [facility] [address] [place] [address] LABORATORIES [facility] [address] [place] [address] * Culture, Spinal Fluid with Gram Stain (01/27/2021 4:00 PM CDT) Gram Stain No white blood cells seen [facility] Lab Gram Stain No organisms seen [facility] Culture Result No growth at 4 Days [facility] Specimen CSF Performing Organization Address City/[facility]/ZIP Code P maame Number [facility] [address] [place] [address] LABORATORIES [facility] [address] [place] [address] * Glucose CSF (01/27/2021 4:00 PM CDT) Glucose CSF 126 (H) 40 - 70 mg/dL [facility] Specimen CSF Performing Organization Address City/[facility]/ZIP Code P maame Number [facility] [address] [place] [address] LABORATORIES [facility] [address] [place] [address] * Glucose (01/27/2021 4:00 PM CDT) Glucose 195 (H) 70 - 100 mg/dL [facility] Specimen Blood Performing Organization Address City/[facility]/ZIP Code P maame Number [facility] [address] [place] [address] LABORATORIES [facility] [address] [place] [address] * MRI Outside images for PACS Spine (01/27/2021 2:38 PM CDT) Only the most recent of 5 results within the time period is included. Specimen Performing Organization Address City/[facility]/ZIP Code P maame Number [facility] * Cytology Non-Desk Clerk (01/27/2021 2:23 PM CDT) Specimen CSF Narrative Performed At [facility] CYTOLOGY REPORT PATIENT: ANGELA SANCHES /AGE/SEX: 1940 (Age: 80) /M ID #: [id number] SUBMITTING PHYSICIAN: GRAYSON Nieves CLIENT: [facility] COLLECTED: 01/27/2021 REPORTED: 02/01/2021 SPECIMEN #: [id number] ##################MICROSCOPIC INTERPRET ATION################## Cerebral spinal fluid, lumbar puncture (thin prep): -Few lymphocytes. -No acute inflammation is identifi ed. -Flow cytometry showed no definite immunophenotypic evidence of non-Hodgkin's B-cell or T-cell lymphoma. See separate flow cytometry report for the complete analysis. -Negative for malignant cells. Ramos Cisneros MD Report Electronically Signed Out SLL:02/01/21 SLL(GV) CLINICAL HISTORY/IMPRESSION: None provided. SPECIMEN LABELED: Cerebrospinal fluid GROSS DESCRIPTION: Cerebrospinal fluid: Received 1 mL vivi r fluid. Prepared 1 ThinPrep. Technical Component performed at [address] [place] [address]###END OF REPORT### Performing Organization Address City/[facility]/ZIP Code P maame Number [facility] [id number] [facility] [place] [address] [address] * Complete Blood Count (01/27/2021 10:42 AM CDT) WBC 6.22 4.00 - 11.00 TH/uL [facility] RBC 4.52 4.31 - 5.84 MIL/uL [facility] Hemoglobin 14.8 13.0 - 17.0 g/dL [facility] Hematocrit 44 40 - 50 % [facility] MCV 97 80.0 - 99.0 fL [facility] MCH 33 27.0 - 34.0 pg [facility] MCHC 34 32 - 36 % [facility] RDW 12.3 11.5 - 14.5 % [facility] Platelet Count 152 140 - 400 TH/uL [facility] MPV 12.1 9.4 - 12.3 fL [facility] Nucleated RBCs 0 0 - 0 /100 [facility] Specimen Blood Performing Organization Address City/[facility]/ZIP Code P maame Number [address] [address] LABORATORIES [facility] [address] [place] [address] * SARS-COV-2, ADENIKE (COVID-19) (01/26/2021 10:55 PM CDT) SARS-CoV-2 PCR NegativeComment: This RT-PCR Negative [facility] test has been authorized by Hospital Lab the FDA under an Emergency Use Authorization (EUA) for use by authorized laboratories. Performed on the [employer] Aptima SARS-CoV-2 assay, which utilizes Music Professor Mediated Amplification (TMA) technology Specimen NASOPHARYNGEAL SWAB Performing Organization Address City/[facility] Code P maame Number [address] [address] LABORATORIES [facility] [address] [place] [address] from Last 3 Months Insurance Type Payer Benefit Subscriber ID Effective Phone Address Plan / Dates Group MEDICARE REPLACEMENT PLAN [facility] DUAL [id number] 2020-P COMPLETE resent [place] OTHER GOVERNMENT [id number] 2021- FOR LIFE Present SanchesAngela marquez Personal/F Self 1940 [address] [facility] (Home) [place] [id number] Advance Directives For more information, please contact: [phone] Patient Panel Monitor Explanation Type Date Recorded Health Care Directive Date Inactivated Comments Code Status Date Activated DNR 01/26/2021 9:27 PM
--- OUTSIDE RECORDS SUMMARY | 2021-02-10 14:05 | XMS REPORT | Encounter Summary ---
Author Author [facility] Organization [facility] Address Unknown Phone Unavailable Care Team Providers Care Event Technician Name Role Phone Christophe Kennedy MD PCP Encounter Details Care Team Description Date Type Department [place], Default Authenticator [address] [place] [address] [facility] [employer] [address] [place] [address] Social History Date Tobacco Use Types Packs/Day Years Used Quit: 01/26/1997 Former Smoker Smokeless Tobacco: Never Used Comments Alcohol Use Standard Drinks/Week Not Currently 0 (1 standard drink = 0.6 o z pure alcohol) Sex Assigned at Date Recorded Not on file documented as of this encounter Plan of Treatment Care Team Description Date Type Specialty Vangie Marion PA [address] [place] [address] [phone] 03/03/2021 Office Visit Neurosurgery Date/Time Name Type Priority Associated Diag noses 01/26/2021 1:14 PM CDT [employer] outside images External Films Routine for PACS documented as of this encounter Procedures Comments Procedure Name Priority Date/Time Associated Diag nosis [facility] OUTSIDE IMAGES Routine 01/26/2021 FOR PACS 1:14 PM CDT documented in this encounter Visit Diagnoses Not on filedocumented in this encounter
--- OUTSIDE RECORDS SUMMARY | 2021-02-10 14:05 | XMS REPORT | Encounter Summary ---
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 Name Role Phone Christophe Kennedy MD PCP Encounter Details Care Team Description Date Type Department 01/27/2021 Imaging [facility] Virtual Rev[facility] e Appointment Location Social History Date Tobacco Use Types Packs/Day Years Used Quit: 01/26/1997 Former Smoker Smokeless Tobacco: Never Used Comments Alcohol Use Standard Drinks/Week Not Currently 0 (1 standard drink = 0.6 o z pure alcohol) Sex Assigned at Date Recorded Not on file documented as of this encounter Plan of Treatment Care Team Description Date Type Specialty Vangie Marion PA [address] [place] [address] [phone] 03/03/2021 Office Visit Neurosurgery documented as of this encounter Procedures Comments Procedure Name Priority Date/Time Associated Diag nosis MRI OUTSIDE IMAGES FOR Routine 01/27/2021 Encount er for PACS SPINE 2:34 PM CDT consultation documented in this encounter Results * MRI Outside images for PACS Spine (01/27/2021 2:34 PM CDT) Specimen Performing Organization Address City/State/ZIP Code P maame Number [place] documented in this encounter Visit Diagnoses Not on filedocumented in this encounter
--- OUTSIDE RECORDS SUMMARY | 2021-02-10 14:05 | XMS REPORT | Encounter Summary ---
Author Author [facility] Organization 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 [employer] Name Role Phone Christophe Kennedy MD PCP Reason for Referral * MRI/CAT/PET Scan (Routine) Referred By Contact Referred To Contact Status Reason Specialty Diagnoses / Procedures Ariadne Guzman MD [address] [place] [address] Pending Review Radiology Diagnoses Hepatic hemangioma P rocedures CT Abdomen w wo contrast Electronically signed by Ariadne Guzman MD at * Consultation (Routine) Referred By Contact Referred To Contact Status Reason Specialty Diagnoses / Procedures Ariadne Guzman MD [address] [place] [address] [facility] [address] [place] [id number] Pending Review Specialty Services Diabetes Diagnoses Required Services Type 2 diabetes mellitus with diabetic polyneuropathy, unspecified whether continuous churn buttermaker insulin use (HCC) Diabetic polyneuropathy associated with type 2 diabetes mellitus (HCC) Electronically signed by Ariadne Guzman MD at Reason for Visit * Auth/Cert Referred By Contact Referred To Contact Status Reason Specialty Diagnoses / Procedures Diagnoses Spinal Cord Lesion 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) Encounter Details Care Team Description Date Type Department Cheryl Malin MD [address] [place] [address] Ariadne Guzman MD [address], [place] [id number] Ronda Regan MD [address] [place], [place] [id number] [address] Bryson MD [address] [place] [address] Hospitalist, Physician Diabetic polyneuropathy associated with type [...] diabetes mellitus with diabetic polyneuropathy, unspecified whether detention insulin use (HCC); Urinary tract infection without hematuria, site unspecified; Constipation, unspecified constipation type; BAM (obstructive sleep apnea); Hepatic hemangioma 01/26/2021 [facility] al - Encounter [id number] [facility] 02/10/2021 [place], [place] [id number] Social History Date Tobacco Use Types Packs/Day Years Used Quit: 01/26/1997 Former Smoker Smokeless Tobacco: Never Used Comments Alcohol Use Standard Drinks/Week Not Currently 0 (1 standard drink = 0.6 o z pure alcohol) Sex Assigned at Date Recorded Not on file documented as of this encounter Last Filed Vital Signs Reading Time Taken [...] 01/28/2021 3:17 PM CDT Body Mass Index documented in this encounter Discharge Summaries * Ariadne Guzman MD - 02/10/2021 9:00 AM CDT [facility] Patient Name: Angela Sanches Account No: [id number] Date of : 1940 Date of Admission: 01/26/2021 7:39 PM Date of Discharge: 02/10/2021 9:22 AM Length of Stay: 15 Days Readmit Risk: 16 Primary Care Physician: Christophe Kennedy MD; Disposition: Discharged in stable condition to acute rehab facility. Problems Addressed During This Admission: Principal Problem: Spinal cord compression (HCC) Active Problems: Spinal cord mass (HCC) Cervical myelopathy (HCC) Essential hypertension PAF (paroxysmal atrial fibrillation) (HCC) Hemiplegia (HCC) T2DM (type 2 diabetes mellitus) (HCC) BAM (obstructive sleep apnea) Diabetic polyneuropathy associated with type 2 diabetes mellitus (HCC) Thrombocytopenia (HCC) Chronic systolic heart failure (HCC) Resolved Problems: UTI (urinary tract infection) Constipation LFT elevation Hypotension Urinary retention Reason for Hospital Admission and Brief Hospital Course: Mr. Angela Sanches is a 80 y.o. male who was admitted on 01/26/2021 ( transfer from [facility]) with complaint o f LUE/LLE weakness. Pt reports symptoms started at least 4-5 months ago. His e x- thinks about May 2020. Started with left leg weakness. He previousl y ambulated independently and had to start using a cane. Progressed to a walker , and now falling even with walker. More recently has developed left arm weakne ss as well. Intermittently gets numbness in the arm as well. He thinks he gonsalez s lost about 15 pounds in the past week (just since in the hospital). He had ev aluation at [facility] in [place] and recommended transfer for neurosurgical evaluation. He has also struggled with urinary retention.Negative COVID test 0 01/22/21, MICHAELA, RPR Negative, UA: > 100 WBC, 6-10 RBC. MRI Brain: No acute pathology. Mild small vessel ischemic disease. Mild cerebral and cerebellar volume loss. MRI C&Tspine: Extensive edema and expansion of the spinal cord extending from C3-T5. Differential listed as transverse myelitis, neuromyelitis optica, spinal cord neoplasm, or less likely spinal dural AV fistula. MRI LSpine: Subarticular recess narrowing is severe on the left and moderate rig ht L4-5. Neural foraminal narrowing bilaterally. Cervical Myelopathy: Evaluated by Neurosurgery: Feel that presentation not typical of neoplastic proc ess.repeat C and T spine MRIs reviewed and showing enlargement of long segment c ord expansion in the cervical and upper thoracic region Neurology consulted. cannot r/o primary malignancy but started on Solumedrol o n 01/28 for a total of 5 doses to possibly treat transverse myelitis. Completed w ith minimal improvement in symptoms. Underwent LP, meningitis panel, VDRL, paraneoplastic panel negative. In the mul tiple sclerosis panel light chains were mildly elevated. Discussed with neurolo gy this is nonspecific. Serologies including SSA, SSB, complement, antiphospholipid, WILLAM enzyme, HTLV ne gative. MICHAELA nonspecifically elevated at 1: 160. For flow cytometry and cytolog y also negative. Neurology and neurosurgery signed off. Planning to follow-up as an outpatient. Neurosurgery appointment March 03. Family wanted a second opinion. [facility] contacted and recommended following as an outpatient. Patient will need to see outpatient Neurology for referral. Atrial Fibrillation: Patient also went into A. fib with RVR with hypotension. Cardiology and critical care consulted. Patient started on home digoxin and metoprolol increased to 300 mg XR with significant improvement in A. Fib. Normotension thereafter off of a ntihypertensive. Antihypertensives will be held on discharge, to be restarted as clinically indicated. Elevated Transaminases (resolved), Thrombocytopenia: Patient developed thrombocytopenia without derangements in other cell lines, no splenomegaly. Unclear etiology. Improving now. Also developed LFT elevation. Hepatitis panel negative. Imaging showing mariana ioma and several cysts that cannot be characterized on CT. Recommend follow-up in [address] UTI, Neurogenic Bladder: Patient also treated for UTI this admission. Frausto placed during admission for u rinary retention. Urology consulted given concern for neurogenic bladder. Patien t passed trial of void, however incontinent, prior to discharge and will be disc harged without frausto catheter. Type 2 Diabetes Mellitus: Patient reportedly on oral antihyperglycemics prior to admission however no fill history. Hyperglycemic this admission beyond duration of steroid administration, requiring basal bolus insulin regimen. He will be discharged on schedule insulin glargine and sliding scale. He has also been referred to outpatient diabetes education. His insulin regimen will need to be adjusted at rehab and during outp atient follow-up. Follow Up: Future Appointments Date Time Provider Department Center 03/03/2021 11:00 AM [facility] Christophe Kennedy MD, primary care physician in 7-14 days. Neurology: [phone] Abdomen for evaluation of hepatic hemangiomas: Discharge Medications New Medications Indication(s) alcohol swabs Padm Commonly known as: Alcohol Pads Apply at site of insulin injection prior to medication administration digoxin 125 mcg (0.125 mg) tablet Commonly known as: LANOXIN 125 mcg, Oral, Every evening FREESTYLE LITE test strips Generic drug: blood sugar diagnostic Check blood sugar before each meal and prior to bedtime insulin glargine 100 unit/mL injection Commonly known as: LANTUS 5 Units, Subcutaneous, Nightly insulin lispro 100 unit/mL injection Commonly known as: HumaLOG 2-8 Units, Subcutaneous, 4 times daily before meals and nightly, BG 0-120 give 0 units, BG 121-150 give 0 units, BG 151-200 give 2 units, BG 201-250 give 3 uni ts, BG 251-300 Give 4 units, BG 301-350 give 5 units, BG 351-400 give 6 units, BG >400 Give 7 units polyethylene glycol 17 gram packet Commonly known as: GLYCOLAX 17 g, Oral, Daily PRN Medications To Continue Indication(s) apixaban 5 mg tablet Commonly known as: ELIQUIS 5 mg, Oral, 2 times daily SKYE-MAG COMPLEX ORAL Oral metoprolol succinate 200 MG 24 hr tablet Commonly known as: TOPROL-XL 300 mg, Oral, Daily omega 3 fish oil DHA 200 mg-EPA 300 mg (1,000 mg) capsule Commonly known as: SEA OMEGA Oral, 2 times daily SUPER B-COMPLEX ORAL Oral Stopped Medications ferrous sulfate 325 (65 FE) MG tablet hydroCHLOROthiazide 25 MG tablet Commonly known as: HYDRODIURIL losartan 50 MG tablet Commonly known as: COZAAR mirabegron 50 mg Tb24 tablet Commonly known as: MYRBETRIQ potassium chloride 10 MEQ CR tablet Commonly known as: KLOR-CON solifenacin 10 MG tablet Commonly known as: VESICARE trospium 20 mg tablet Commonly known as: SANCTURA The patient was seen and examined by me on the day of his discharge. His dischar ge plan was discussed fully with the patient and the patient's family/friend. Al l questions were answered. Code Status: DNR Recommended Diet: Diet-Consistent Carbohydrate (75 gm) Activity/Restrictions: activity as tolerated Vital Signs at the time of discharge: Blood Pressure: BP: 124/80 Pulse: Pulse: 74 Temperature: Temp: 36.5 C (97.7 F) Respirations: Resp: 18 Admission Weight: Weight: 120.4 kg (265 lb 8 oz) O2 Saturation: SpO2: 94 % Discharge Weight: Weight: 120.7 kg (266 lb) (daily weight) BMI: Body mass index is 37.1 kg/m. Physical Exam Constitutional: General: He is not in acute distress. Appearance: Normal appearance. HENT: Head: Normocephalic and atraumatic. Mouth/Throat: Mouth: Mucous membranes are moist. Eyes: Conjunctiva/sclera: Conjunctivae normal. Cardiovascular: Rate and Rhythm: Normal rate and regular rhythm. Pulses: Normal pulses. Heart sounds: Normal heart sounds. No murmur heard. Pulmonary: Effort: Pulmonary effort is normal. Breath sounds: Normal breath sounds. Abdominal: Palpations: Abdomen is soft. Tenderness: There is no abdominal tenderness. Musculoskeletal: General: No swelling. Skin: General: Skin is warm and dry. Capillary Refill: Capillary refill takes less than 2 seconds. Neurological: Mental Status: He is alert and oriented to person, place, and time. Comments: LLE 3/5 with minimal antigravity movement - decreased sensation to light touch. LUE 3+/5, decreased sensation to light touch Imaging during this encounter: CT Abdomen w wo contrast Result Date: 02/06/2021 Impression: 2.3 cm hepatic hemangioma corresponding with findings on abdominal ultrasound. Multiple subcentimeter low-attenuation lesions within the liver too small to accurately characterize with CT, statistically representing small cysts. Follow-up with repeat CT or MRI in 3 months could be considered to ensure stability given the patient's history READING SITE: [facility] US Abdomen complete Result Date: 02/05/2021 1. Spleen is normal size. 2. Gallbladder contains sludge and shadowing stone. No evidence of acute cholecystitis. 3. 2.6 cm echogenic lesion in the left hepatic lobe, potentially a hemangioma. This should be confirmed with CT or MRI if patient has chronic liver disease, is at risk for development of liver cancer, or has known cancer. READING SITE: [facility] XR Chest single view frontal Result Date: 02/04/2021 No focal consolidation Cardiomegaly READING SITE: [facility] Echo Complete with Doppler and Color Flow Result Date: 02/04/2021 1. Moderately reduced left ventricular systolic function, with an estimated ej ection fraction of 25% 2. No significant valvular abnormalities. 3. Moderate pulmonary hypertension. Estimated PA pressure = 55 mmHg. No previous study available for comparison. Dr Dieudonne Michaels (Electronically Signed) Final Date: 04 February 2021 15:53 Cardiac Studies during this encounter: Echo Complete with Doppler and Color Flow Result Date: 02/04/2021 1. Moderately reduced left ventricular systolic function, with an estimated ej ection fraction of 25% 2. No significant valvular abnormalities. 3. Moderate pulmonary hypertension. Estimated PA pressure = 55 mmHg. No previous study available for comparison. Dr Dieudonne Michaels (Electronically Signed) Final Date: 04 February 2021 15:53 Procedures: Lumbar puncture 01/27/21 45 minutes were spent in the discharge of this patient performing the physical e xam, writing the discharge orders, and reviewing the patient's discharge plan of care and follow up information as noted above as well as other information as d ocumented in this summary note. Ariadne Guzman MD [facility] . documented in this encounter Discharge Instructions * Instructions* Ariadne Guzman MD - 01/31/[address] [facility] Patient Name: Angela Sanches Account No: [id number] Date of : 1940 Date of Admission: 01/26/2021 7:39 PM Date of Discharge: 02/10/2021 8:58 AM Length of Stay: 15 Days Readmit Risk: 16 Primary Care Physician: Christophe Kennedy MD; Disposition: Discharged in stable condition to acute rehab facility. Problems Addressed During This Admission: Principal Problem: Spinal cord compression (HCC) Active Problems: Spinal cord mass (HCC) Cervical myelopathy (HCC) Essential hypertension PAF (paroxysmal atrial fibrillation) (HCC) Hemiplegia (HCC) T2DM (type 2 diabetes mellitus) (HCC) BAM (obstructive sleep apnea) Diabetic polyneuropathy associated with type 2 diabetes mellitus (HCC) Thrombocytopenia (HCC) Systolic heart failure (HCC) Resolved Problems: UTI (urinary tract infection) Constipation LFT elevation Hypotension Urinary retention Reason for Hospital Admission and Brief Hospital Course: Mr. Angela Sanches is a 80 y.o. male who was admitted on 01/26/2021 ( transfer from [facility]) with complaint o f LUE/LLE weakness. Pt reports symptoms started at least 4-5 months ago. His e x- thinks about May 2020. Started with left leg weakness. He previousl y ambulated independently and had to start using a cane. Progressed to a walker , and now falling even with walker. More recently has developed left arm weakne ss as well. Intermittently gets numbness in the arm as well. He thinks he gonsalez s lost about 15 pounds in the past week (just since in the hospital). He had ev aluation at [facility] in [place] and recommended transfer for neurosurgical evaluation. He has also struggled with urinary retention.Negative COVID test 0 01/22/21, MICHAELA, RPR Negative, UA: > 100 WBC, 6-10 RBC. MRI Brain: No acute pathology. Mild small vessel ischemic disease. Mild cerebral and cerebellar volume loss. MRI C&Tspine: Extensive edema and expansion of the spinal cord extending from C3-T5. Differential listed as transverse myelitis, neuromyelitis optica, spinal cord neoplasm, or less likely spinal dural AV fistula. MRI LSpine: Subarticular recess narrowing is severe on the left and moderate rig ht L4-5. Neural foraminal narrowing bilaterally. Cervical Myelopathy: Evaluated by Neurosurgery: Feel that presentation not typical of neoplastic proc ess.repeat C and T spine MRIs reviewed and showing enlargement of long segment c ord expansion in the cervical and upper thoracic region Neurology consulted. cannot r/o primary malignancy but started on Solumedrol o n 01/28 for a total of 5 doses to possibly treat transverse myelitis. Completed w ith minimal improvement in symptoms. Underwent LP, meningitis panel, VDRL, paraneoplastic panel negative. In the mul tiple sclerosis panel light chains were mildly elevated. Discussed with neurolo gy this is nonspecific. Serologies including SSA, SSB, complement, antiphospholipid, WILLAM enzyme, HTLV ne gative. MICHAELA nonspecifically elevated at 1: 160. For flow cytometry and cytolog y also negative. Neurology and neurosurgery signed off. Planning to follow-up as an outpatient. Neurosurgery appointment March 03. Family wanted a second opinion. [facility] contacted and recommended following as an outpatient. Patient will need to see outpatient Neurology for referral. Atrial Fibrillation: Patient also went into A. fib with RVR with hypotension. Cardiology and critical care consulted. Patient started on home digoxin and metoprolol increased to 300 mg XR with significant improvement in A. Fib. Normotension thereafter off of a ntihypertensive. Antihypertensives will be held on discharge, to be restarted as clinically indicated. Elevated Transaminases (resolved), Thrombocytopenia: Patient developed thrombocytopenia without derangements in other cell lines, no splenomegaly. Unclear etiology. Improving now. Also developed LFT elevation. Hepatitis panel negative. Imaging showing mariana ioma and several cysts that cannot be characterized on CT. Recommend follow-up in [address] UTI, Neurogenic Bladder: Patient also treated for UTI this admission. Frausto placed during admission for u rinary retention. Urology consulted given concern for neurogenic bladder. Patien t passed trial of void, however incontinent, prior to discharge and will be disc harged without frausto catheter. Type 2 Diabetes Mellitus: Patient reportedly on oral antihyperglycemics prior to admission however no fill history. Hyperglycemic this admission beyond duration of steroid administration, requiring basal bolus insulin regimen. He will be discharged on schedule insulin glargine and sliding scale. He has also been referred to outpatient diabetes education. His insulin regimen will need to be adjusted at rehab and during outp atient follow-up. Follow Up: Future Appointments Date Time Provider Department Center 03/03/2021 11:00 AM JAKUB Hloliday [facility] NeurSurg Dr. Christophe Kennedy MD, primary care physician in 7-14 days. Neurology: [phone] Abdomen for evaluation of hepatic hemangiomas: Discharge Medications New Medications Indication(s) alcohol swabs Padm Commonly known as: Alcohol Pads Apply at site of insulin injection prior to medication administration digoxin 125 mcg (0.125 mg) tablet Commonly known as: LANOXIN 125 mcg, Oral, Every evening FREESTYLE LITE test strips Generic drug: blood sugar diagnostic Check blood sugar before each meal and prior to bedtime insulin glargine 100 unit/mL injection Commonly known as: LANTUS 5 Units, Subcutaneous, Nightly insulin lispro 100 unit/mL injection Commonly known as: HumaLOG 2-8 Units, Subcutaneous, 4 times daily before meals and nightly, BG 0-120 give 0 units, BG 121-150 give 0 units, BG 151-200 give 2 units, BG 201-250 give 3 uni ts, BG 251-300 Give 4 units, BG 301-350 give 5 units, BG 351-400 give 6 units, BG >400 Give 7 units polyethylene glycol 17 gram packet Commonly known as: GLYCOLAX 17 g, Oral, Daily PRN Medications To Continue Indication(s) apixaban 5 mg tablet Commonly known as: ELIQUIS 5 mg, Oral, 2 times daily SKYE-MAG COMPLEX ORAL Oral metoprolol succinate 200 MG 24 hr tablet Commonly known as: TOPROL-XL 300 mg, Oral, Daily omega 3 fish oil DHA 200 mg-EPA 300 mg (1,000 mg) capsule Commonly known as: SEA OMEGA Oral, 2 times daily SUPER B-COMPLEX ORAL Oral Stopped Medications ferrous sulfate 325 (65 FE) MG tablet hydroCHLOROthiazide 25 MG tablet Commonly known as: HYDRODIURIL losartan 50 MG tablet Commonly known as: COZAAR mirabegron 50 mg Tb24 tablet Commonly known as: MYRBETRIQ potassium chloride 10 MEQ CR tablet Commonly known as: KLOR-CON solifenacin 10 MG tablet Commonly known as: VESICARE trospium 20 mg tablet Commonly known as: SANCTURA The patient was seen and examined by me on the day of his discharge. His dischar ge plan was discussed fully with the patient and the patient's family/friend. Al shabnam questions were answered. Code Status: DNR Recommended Diet: Diet-Consistent Carbohydrate (75 gm) Activity/Restrictions: activity as tolerated Vital Signs at the time of discharge: Blood Pressure: BP: 124/80 Pulse: Pulse: 74 Temperature: Temp: 36.5 C (97.7 F) Respirations: Resp: 18 Admission Weight: Weight: 120.4 kg (265 lb 8 oz) O2 Saturation: SpO2: 94 % Discharge Weight: Weight: 120.7 kg (266 lb) (daily weight) BMI: Body mass index is 37.1 kg/m. Physical Exam Constitutional: General: He is not in acute distress. Appearance: Normal appearance. HENT: Head: Normocephalic and atraumatic. Mouth/Throat: Mouth: Mucous membranes are moist. Eyes: Conjunctiva/sclera: Conjunctivae normal. Cardiovascular: Rate and Rhythm: Normal rate and regular rhythm. Pulses: Normal pulses. Heart sounds: Normal heart sounds. No murmur heard. Pulmonary: Effort: Pulmonary effort is normal. Breath sounds: Normal breath sounds. Abdominal: Palpations: Abdomen is soft. Tenderness: There is no abdominal tenderness. Musculoskeletal: General: No swelling. Skin: General: Skin is warm and dry. Capillary Refill: Capillary refill takes less than 2 seconds. Neurological: Mental Status: He is alert and oriented to person, place, and time. Comments: LLE 3/5 with minimal antigravity movement - decreased sensation to light touch. LUE 3+/5, decreased sensation to light touch Imaging during this encounter: CT Abdomen w wo contrast Result Date: 02/06/2021 Impression: 2.3 cm hepatic hemangioma corresponding with findings on abdominal ultrasound. Multiple subcentimeter low-attenuation lesions within the liver too small to accurately characterize with CT, statistically representing small cysts. Follow-up with repeat CT or MRI in 3 months could be considered to ensure stability given the patient's history READING SITE: [facility] US Abdomen complete Result Date: 02/05/2021 1. Spleen is normal size. 2. Gallbladder contains sludge and shadowing stone. No evidence of acute cholecystitis. 3. 2.6 cm echogenic lesion in the left hepatic lobe, potentially a hemangioma. This should be confirmed with CT or MRI if patient has chronic liver disease, is at risk for development of liver cancer, or has known cancer. READING SITE: [facility] XR Chest single view frontal Result Date: 02/04/2021 No focal consolidation Cardiomegaly READING SITE: [facility] Echo Complete with Doppler and Color Flow Result Date: 02/04/2021 1. Moderately reduced left ventricular systolic function, with an estimated ej ection fraction of 25% 2. No significant valvular abnormalities. 3. Moderate pulmonary hypertension. Estimated PA pressure = 55 mmHg. No previous study available for comparison. Dr Dieudonne Michaels (Electronically Signed) Final Date: 04 February 2021 15:53 Cardiac Studies during this encounter: Echo Complete with Doppler and Color Flow Result Date: 02/04/2021 1. Moderately reduced left ventricular systolic function, with an estimated ej ection fraction of 25% 2. No significant valvular abnormalities. 3. Moderate pulmonary hypertension. Estimated PA pressure = 55 mmHg. No previous study available for comparison. Dr Dieudonne Michaels (Electronically Signed) Final Date: 04 February 2021 15:53 Procedures: Lumbar puncture 01/27/21 45 minutes were spent in the discharge of this patient performing the physical e xam, writing the discharge orders, and reviewing the patient's discharge plan of care and follow up information as noted above as well as other information as d ocumented in this summary note. Ariadne Guzman MD [facility] . Neurosurgery Follow up: follow up in 4 weeks. Please call if you have not heard from us within 3 business days. [facility] [phone] [place] [address], [address] [place] [address] documented in this encounter Medications at Time of Discharge Start Date End Date Medication Sig Dispensed Refills apixaban (ELIQUIS) 5 mg Take 5 mg by 0 tablet mouth 2 (two) times a day. calcium/magnesium/vitamin Take by 0 D3 (SKYE-MAG COMPLEX ORAL) mouth. metoprolol succinate Take 300 mg 0 (TOPROL-XL) 200 MG 24 hr by mouth tablet daily. multivit with Take by 0 iron,hematinic (SUPER mouth. B-COMPLEX ORAL) omega 3 fish oil (SEA Take by mouth 0 OMEGA) DHA 200 mg-EPA 300 2 (two) times mg (1,000 mg) capsule a day. 02/09/2021 alcohol swabs (ALCOHOL Apply at site 100 each 3 PADS) PadM of insulin injection prior to medication administratio n 02/09/2021 digoxin (LANOXIN) 125 mcg Take 1 tablet 60 tablet 3 (0.125 mg) tablet (125 mcg total) by mouth every evening. 02/09/2021 FREESTYLE LITE test Check blood 100 strip 0 strips sugar before each meal and prior to bedtime 02/09/2021 insulin glargine (LANTUS) Inject 5 10 mL 2 100 unit/mL injection Units under the skin nightly. 02/09/2021 insulin lispro (HUMALOG) Inject 2-8 10 mL 2 100 unit/mL injection Units under the skin 4 (four) times a day before meals and nightly. BG 0-120 give 0 units, BG 121-150 give 0 units, BG 151-200 give 2 units, BG 201-250 give 3 units, BG 251-300 Give 4 units, BG 301-350 give 5 units, BG 351-400 give 6 units, BG >400 Give 7 units 02/09/2021 polyethylene glycol Take 1 packet 14 each 0 (GLYCOLAX) 17 gram packet (17 g total) by mouth daily as needed (constipation ). documented as of this encounter Progress Notes * Ariadne Guzman MD - 02/09/2021 7:23 AM CDT [facility] Patient Name: Angela Sanches Account No: [id number] Date of : 1940 Date of Admission: 01/26/2021 7:39 PM Subjective Follow up regarding cervical myelopathy with expansile cord lesion, Afib with ep isodic RVR Patient resting in bed this AM. Denies complaints. Failed frausto clamping trial y and states that he cannot feel the sensation to urinate. Otherwise no acute overnight events. Planned for dc to acute rehab today however frausto has been in for 16 days with no plan for removal or transition to long te rm management. Will consult Urology and plan for dc tomorrow. Review of Systems Constitutional: Positive for malaise/fatigue. Eyes: Negative for blurred vision and double vision. Respiratory: Negative. Cardiovascular: Negative. Gastrointestinal: Negative. Genitourinary: No sensation to urinate Skin: Negative. Neurological: Positive for weakness (Left-sided). Objective Vital Signs: Temp: 37.1 C (98.7 F) Pulse: 93 Resp: 18 BP: 113/64 SpO2: 98 % Height: 180.3 cm (5' 11") Weight: 119 kg (262 lb 6.4 oz) I/O last 24 Hours: In: 930 [P.O.:930] Out: 700 [Urine:700] Physical Exam Constitutional: General: He is not in acute distress. Appearance: Normal appearance. HENT: Head: Normocephalic and atraumatic. Mouth/Throat: Mouth: Mucous membranes are moist. Eyes: Conjunctiva/sclera: Conjunctivae normal. Cardiovascular: Rate and Rhythm: Normal rate and regular rhythm. Pulses: Normal pulses. Heart sounds: Normal heart sounds. No murmur heard. Pulmonary: Effort: Pulmonary effort is normal. Breath sounds: Normal breath sounds. Abdominal: Palpations: Abdomen is soft. Tenderness: There is no abdominal tenderness. Musculoskeletal: General: No swelling. Skin: General: Skin is warm and dry. Capillary Refill: Capillary refill takes less than 2 seconds. Neurological: Mental Status: He is alert and oriented to person, place, and time. Comments: LLE 3/5 with minimal antigravity movement - decreased sensation to light touch. LUE 3+/5, decreased sensation to light touch I have personally reviewed the patient's vital signs, laboratory/pathology/cultu re results (as indicated), current inpatient medications, oracle drm consultant notes and s upport staff notes with pertainent findings noted within the assessment/plan. Assessment/Plan Mr. Angela Sanches is a 80 y.o. male who was admitted on 01/26/2021 with complaint of left-sided weakness found to have cervical myelopathy with expansile cord le bl[place] of unknown etiology (evaluated by Neurosurgery and Neurology without furthe r recommendations). Hospital course has also been complicated by unstable Afib R VR resolved with uptitration of PO rate control medications. Problems addressed with today's visit include: * Spinal cord compression (HCC) - expansile cervical lesion noted on outside imaging - NS and Neurology consulted on admission -NS feels that presentation not typical of neoplastic process. - As per neurology , cannot r/o primary malignancy but started on Solumedrol on 01/28 for a total of 5 doses to possibly treat transverse myelitis completed with minimal improvement. -repeat C and T spine MRIs reviewed and showing enlargement of long segment cord expansion in the cervical and upper thoracic region - CSF Glucose 126 Protein 246 -S/P LP-CSF studies as per Neuro-nclude CSF VDRL, meningitis/encephalitis panel negative negative. - multiple sclerosis panel light chains elevated. D/W neurology - not clinicall y significat . - CSF paraneoplastic panel negative Serologies SSA, SSB, complement, antiphospholipid antibodies, paraneoplastic antibodies, angiotensin-converting enzyme HTLV negative , MICHAELA 1:160 - Flow Cytometry negative, CSF Cytology negative for malignant cells. - PMR consulted - recommending [facility]. SW working on placement -Discussed with [facility] on-call neurologist. As per requested by patient's family. [facility] is not on the [facility] network system. Therefore this needs to be an outpatient referral. Recommended neuro-oncology consult as an outpatient. This was conveyed to the patient and family. Also dis cussed that I can refer the patient as an OP to neurology if the patient and family wishes. Spinal cord mass (HCC) See plan above Cervical myelopathy (HCC) Cervical myelopathy See plan above Systolic heart failure (HCC) Cardiology consulted EF 30%.Moderately reduced left ventricular systolic function, with an estimated ejection fraction of 25%, Moderate pulmonary hypertension. Estimated PA pressure = 55 mmHg recommending cardiac work up as OP when neurological condition is better defin ed Urinary retention Likely related to spinal mass Frausto placed. Continue catheter care Patient failed clamp trial Urology consulted Thrombocytopenia ([facility]) New onset. No previous history Prior to restarting Eliquis patient was on heparin products but currently not o n any heparin. We will hold off on evaluating for HIT Ultrasound abdomen as mentioned Daily CBCs. Improving. INR elevated but patient on eliquis MICHAELA 1:160 non specific. T2DM (type 2 diabetes mellitus) ([facility]) - Reports that he takes PO meds at home, A1c controlled -Started on Lantus when blood sugars were elevated due to steroids. Currently p atient's blood sugars within range with Lantus 5 units and sliding scale Hemiplegia ([facility]) Left arm/leg - Workup as above - PT/OT- [facility] PAF (paroxysmal atrial fibrillation) (HCC) - Will resume Eliquis given that the there is no surgery anticipated - Patient had an episode of Afib with RVR on 02/04 . Patient was loaded back on d igoxin and started on patients home dose of Toprol XR 300 mg daily Essential hypertension - Continue Toprol 200 mg XR - Hold losartan and HCTZ given BP is soft See my orders for additional details regarding this patients treatment plan. Expected Discharge Date The patient's predicted discharge date is 02/09/2021, but this doesn't guarantee a discharge on this date. Anticipated Discharge Destination The patient's anticipated discharge destination is Rehab facility/ Unit. Room: [place] [address] Diet: Diet-Consistent Carbohydrate (75 gm) VTE Prevention: Appropriate VTE chemical treatment ordered. Appropriate VTE mec hanical treatment ordered. Code Status: DNR Frausto Catheter: Frausto catheter is currently in place. See assessment/plan above for documentatio n regarding the appropriateness of its use. Scheduled Meds: apixaban 5 mg Oral BID digoxin 125 mcg Oral QPM docusate sodium 100 mg Oral BID insulin glargine 5 Units Subcutaneous Nightly insulin lispro 2-7 Units Subcutaneous 4 times daily before meals and nightl y insulin lispro 8 Units Subcutaneous TID AC metoprolol succinate 300 mg Oral Daily Continuous Infusions: PRN Meds: acetaminophen OR acetaminophen, benzocaine-menthoL, bisacodyL, dextrose 50%, glucagon OR glucagon, glucose, guaiFENesin, magnesium sulfate, metocloprami de OR metoclopramide, metoprolol, miconazole nitrate, ondansetron, polyethyl bethanie glycol, potassium chloride OR potassium bicarb-citric acid OR potass ium chloride in water, prochlorperazine OR prochlorperazine OR prochlorp erazine, sodium chloride, sodium chloride 0.9% Ariadne Guzman MD [facility] . * Ave Bryson MD - 02/08/2021 12:[address] PM CD[address] [facility] Patient Name: Angela Sanches Account No: [id number] Date of : 1940 Date of Admission: 01/26/2021 7:39 PM Subjective Follow up regarding left-sided weakness No new complaints. No improvement in the left-sided weakness. We discussed bonnie t social work is working on placement. We attempted a trial without Frausto today . ROS Const: denies fever, chills Eye: denies visual disturbances ENT: denies PND, sore throat Resp: denies difficulty breathing Card: denies chest pain GI: denies diarrhea, constipation, nausea, vomiting All other systems/symptoms unremarkable, except those described above Objective Vital Signs: Temp: 36.7 C (98.1 F) Pulse: 85 Resp: 18 BP: 97/53 SpO2: 95 % H eight: 180.3 cm (5' 11") Weight: 120.1 kg (264 lb 12.8 oz) I/O last 24 Hours: In: - Out: 775 [Urine:775] Physical Exam General: well-developed, well-nourished, and in no apparent acute distress. Head: Normocephalic and atraumatic. Eyes: Conjunctivae are normal. . PERRL. EOMI. CV: normal rate and regular rhythm. No murmurs. Pulm: Effort normal. CTAB. No wheezes/rales/rhonchi. Abdomen: Soft, non-tender to palpation. Normoactive bowel sounds. Neurological: Left-sided weakness with minimal improvement extremities: peripheral edema 2+. pulses 3+ and symmetric bilaterally. Derm: No rash on exposed skin Psychiatric: Normal thought content, speech, affect, and mood. I have personally reviewed the patient's vital signs, laboratory/pathology/cultu re results (as indicated), current inpatient medications, oracle drm consultant notes and s upport staff notes with pertainent findings noted within the assessment/plan. I have personally reviewed the patient's past medical, surgical, family, or social history and there were no changes reported. I have personally spoken with the maida balderrama, the patient's family/friend, nursing staff and social work/case manageme nt regarding this patient's case. Assessment/Plan Mr. Angela Sanches is a 80 y.o. male who was admitted on 01/26/2021 with complaint of left-sided weakness. Problems addressed with today's visit include: * Spinal cord compression (HCC) - expansile cervical lesion noted on outside imaging - NS and Neurology consulted on admission -NS feels that presentation not typical of neoplastic process. - As per neurology , cannot r/o primary malignancy but started on Solumedrol on 01/28 for a total of 5 doses to possibly treat transverse myelitis completed with minimal improvement. -repeat C and T spine MRIs reviewed and showing enlargement of long segment cord expansion in the cervical and upper thoracic region - CSF Glucose 126 Protein 246 -S/P LP-CSF studies as per Neuro-nclude CSF VDRL, meningitis/encephalitis panel negative negative. - multiple sclerosis panel light chains elevated. D/W neurology - not clinicall y significat . - CSF paraneoplastic panel negative Serologies SSA, SSB, complement, antiphospholipid antibodies, paraneoplastic antibodies, angiotensin-converting enzyme HTLV negative , MICHAELA 1:160 - Flow Cytometry negative, CSF Cytology negative for malignant cells. - PMR consulted - recommending [facility]. SW working on placement -Discussed with [facility] on-call neurologist. As per requested by patient's family. [facility] is not on the [facility] network system. Therefore this needs to be an outpatient referral. Recommended neuro-oncology consult as an outpatient. This was conveyed to the patient and family. Also dis cussed that I can refer the patient as an OP to [facility] neurology if the patient and family wishes. Spinal cord mass (HCC) See plan above Cervical myelopathy (HCC) Cervical myelopathy See plan above Systolic heart failure (HCC) Cardiology consulted EF 30%.Moderately reduced left ventricular systolic function, with an estimated ejection fraction of 25%, Moderate pulmonary hypertension. Estimated PA pressure = 55 mmHg recommending cardiac work up as OP when neurological condition is better defin ed Urinary retention Likely related to spinal mass Frausto placed. Continue catheter care We clamped catheter to see whether patient has sensation. High risk of failing given that the patient most likely has a neurogenic bladder Hypotension Improving with better HR control. Likely related to Afib with RVR. Lactate normal. No leukocytosis. Blood cultures no growth to date Chest x-ray no focal consolidation When hypotension acutely worsened patient was started Zosyn but there is no vivi r indication of infection we will d/c Thrombocytopenia (HCC) New onset. No previous history Prior to restarting Eliquis patient was on heparin products but currently not o n any heparin. We will hold off on evaluating for HIT Ultrasound abdomen as mentioned Daily CBCs. Improving. INR elevated but patient on eliquis MICHAELA 1:160 non specific. LFT elevation Unclear etiology. Can be due to the hepatic congestion related to the decompensa tion related to Afib with RVR acute hepatitis panel- negative No previous history of liver disease US showing liver lesion 2.[address] cm [address]. [address] abdomen showing 2.3 cm lesion - likely a hemangioma. Multiple subcentimeter l ow-attenuation lesions. Recommend f/u with repeat CT 3 months Constipation No bowel movement since admission. X-ray KUB showing fecal impaction Improving Continue laxatives. T2DM (type 2 diabetes mellitus) (HCC) - Reports that he takes PO meds at home, A1c controlled -Started on Lantus when blood sugars were elevated due to steroids. Currently p atient's blood sugars within range with Lantus 5 units and sliding scale UTI (urinary tract infection) - Cover with Rocephin. Completed a total of 7 days Will DC antibiotics - Cultures from OSH not available. Hemiplegia (HCC) Left arm/leg - Workup as above - PT/OT- [facility] PAF (paroxysmal atrial fibrillation) (HCC) - Will resume Eliquis given that the there is no surgery anticipated - Patient had an episode of Afib with RVR on 02/04 . Patient was loaded back on d igoxin and started on patients home dose of Toprol XR 200 mg daily Essential hypertension - Continue Toprol 200 mg XR - Hold losartan and HCTZ given BP is soft See my orders for additional details regarding this patients treatment plan. Expected Discharge Date The patient's predicted discharge date is 02/09/2021, but this doesn't guarantee a discharge on this date. Anticipated Discharge Destination The patient's anticipated discharge destination is Rehab facility/ Unit. Room: [place] [address] Diet: Diet-Consistent Carbohydrate (75 gm) VTE Prevention: Appropriate VTE chemical treatment ordered. Appropriate VTE mec hanical treatment ordered. Code Status: DNR Frausto Catheter: Frausto catheter is currently in place. See assessment/plan above for documentatio n regarding the appropriateness of its use. Scheduled Meds: apixaban 5 mg Oral BID digoxin 125 mcg Oral QPM docusate sodium 100 mg Oral BID insulin glargine 5 Units Subcutaneous Nightly insulin lispro 2-7 Units Subcutaneous 4 times daily before meals and nightl y insulin lispro 8 Units Subcutaneous TID AC metoprolol succinate 300 mg Oral Daily Continuous Infusions: PRN Meds: acetaminophen OR acetaminophen, benzocaine-menthoL, bisacodyL, dextrose 50%, glucagon OR glucagon, glucose, guaiFENesin, magnesium sulfate, metocloprami de OR metoclopramide, metoprolol, miconazole nitrate, ondansetron, polyethyl bethanie glycol, potassium chloride OR potassium bicarb-citric acid OR potass ium chloride in water, prochlorperazine OR prochlorperazine OR prochlorp erazine, sodium chloride, sodium chloride 0.9% Ave Jurado MD [facility] . * Ave Bryson MD - 02/07/2021 1:[address] [facility] Patient Name: Angela Sanches Account No: [id number] Date of : 1940 Date of Admission: 01/26/2021 7:39 PM Subjective Follow up regarding spinal mass Overnight patient the patient's heart rate went up to 140, continues to be in at rial fibrillation. Patient's heart rate went down to 100-110 after 1 dose of IV metoprolol. Patient denies any symptoms at that time. Denies any complaints o f palpitations, chest pain, shortness of breath at the moment. We discussed abo ut the liver finding. Discussed that it is unlikely to be malignant but needs t o be followed up in a few months with repeat CT scan. Right lower extremity wea kness improving but the left side weakness seems to be the same. ROS Const: denies fever, chills Eye: denies visual disturbances ENT: denies PND, sore throat Resp: denies difficulty breathing Card: denies chest pain GI: denies diarrhea, constipation, nausea, vomiting All other systems/symptoms unremarkable, except those described above Objective Vital Signs: Temp: 36.8 C (98.2 F) Pulse: 96 Resp: 20 BP: 126/68 SpO2: 96 % Height: 180.3 cm (5' 11") Weight: 121.9 kg (268 lb 11.9 oz) I/O last 24 Hours: In: - Out: 1000 [Urine:1000] Physical Exam. General: well-developed, well-nourished, and in no apparent acute distress. Head: Normocephalic and atraumatic. Eyes: Conjunctivae are normal. . PERRL. EOMI. CV: normal rate and regular rhythm. No murmurs. Pulm: Effort normal. CTAB. No wheezes/rales/rhonchi. Abdomen: Soft, non-tender to palpation. Normoactive bowel sounds. Neurological: Alert and oriented to person, place, time, and event. . Left-sided weakness 2 out of 5 , right lower extremity 3 out of 5 extremities: No peripheral edema. pulses 3+ and symmetric bilaterally. Derm: No rash on exposed skin Psychiatric: Normal thought content, speech, affect, and mood. I have personally reviewed the patient's vital signs, laboratory/pathology/cultu re results (as indicated), current inpatient medications, oracle drm consultant notes and s upport staff notes with pertainent findings noted within the assessment/plan. I have personally reviewed the patient's past medical, surgical, family, or social history and there were no changes reported. I have personally spoken with the p conchis, the patient's family/friend, nursing staff and social work/case manageme nt regarding this patient's case. Assessment/Plan Problems addressed with today's visit include: * Spinal cord compression (HCC) - expansile cervical lesion noted on outside imaging - NS and Neurology consulted on admission -NS feels that presentation not typical of neoplastic process. - As per neurology , cannot r/o primary malignancy but started on Solumedrol on 01/28 for a total of 5 doses to possibly treat transverse myelitis completed with minimal improvement. -repeat C and T spine MRIs reviewed and showing enlargement of long segment cord expansion in the cervical and upper thoracic region - CSF Glucose 126 Protein 246 -S/P LP-CSF studies as per Neuro-nclude CSF VDRL, meningitis/encephalitis panel negative negative. - multiple sclerosis panel light chains elevated. D/W neurology - not clinicall y significat . - CSF paraneoplastic panel negative Serologies SSA, SSB, complement, antiphospholipid antibodies, paraneoplastic antibodies, angiotensin-converting enzyme HTLV negative , MICHAELA 1:160 - Flow Cytometry negative, CSF Cytology negative for malignant cells. - PMR consulted - recommending [facility]. SW to discuss placement -Discussed with [facility] on-call neurologist. As per requested by patient's family. [facility] is not on the [facility] system. Therefore this needs to be an outpatient referral. Recommended neuro-oncology consult as an outpatient. This was conveyed to the patient and family. Also dis cussed that I can refer the patient as an OP to [facility] neurolog[facility] if the patient and family wishes. Spinal cord mass (HCC) See plan above Cervical myelopathy (HCC) Cervical myelopathy See plan above Systolic heart failure (HCC) Cardiology consulted EF 30%.Moderately reduced left ventricular systolic function, with an estimated ejection fraction of 25%, Moderate pulmonary hypertension. Estimated PA pressure = 55 mmHg recommending cardiac work up as OP when neurological condition is better defin ed Urinary retention Likely related to spinal mass Frausto placed. Continue catheter care Hypotension Improving with better HR control. Likely related to Afib with RVR. Lactate normal. No leukocytosis. Blood cultures no growth to date Chest x-ray no focal consolidation When hypotension acutely worsened patient was started Zosyn but there is no vivi r indication of infection we will d/c Thrombocytopenia (HCC) New onset. No previous history Prior to restarting Eliquis patient was on heparin products but currently not o n any heparin. We will hold off on evaluating for HIT Ultrasound abdomen as mentioned Daily CBCs. Improving. INR elevated but patient on eliquis MICHAELA 1:160 non specific. LFT elevation Unclear etiology. Can be due to the hepatic congestion related to the decompensa tion related to Afib with RVR acute hepatitis panel- negative No previous history of liver disease US showing liver lesion 2.3 cm potentially [address]oma. CT abdomen showing 2.3 cm lesion - likely a hemangioma. Multiple subcentimeter l ow-attenuation lesions. Recommend f/u with repeat CT 3 months Constipation No bowel movement since admission. X-ray KUB showing fecal impaction Improving Continue laxatives. T2DM (type 2 diabetes mellitus) (HCC) - Reports that he takes PO meds at home, A1c controlled -Steroids were completed blood sugars are relatively normal. Will decrease Lant us. UTI (urinary tract infection) - Cover with Rocephin. Completed a total of 7 days Will DC antibiotics - Cultures from OSH not available. Hemiplegia (HCC) Left arm/leg - Workup as above - PT/OT- [facility] PAF (paroxysmal atrial fibrillation) (HCC) - Will resume Eliquis given that the there is no surgery anticipated - Patient had an episode of Afib with RVR on 02/04 . Patient was loaded back on d igoxin and started on patients home dose of Toprol XR 200 mg daily Essential hypertension - Continue Toprol 200 mg XR - Hold losartan and HCTZ given BP is soft See my orders for additional details regarding this patients treatment plan. Expected Discharge Date The patient's predicted discharge date is 02/07/2021, but this doesn't guarantee a discharge on this date. Anticipated Discharge Destination The patient's anticipated discharge destination is Rehab facility/ Unit. Room: [place] [address] Diet: Diet-Consistent Carbohydrate (75 gm) VTE Prevention: Appropriate VTE chemical treatment ordered. Appropriate VTE mec hanical treatment ordered. Code Status: DNR Frausto Catheter: Frausto catheter is currently in place. See assessment/plan above for documentatio n regarding the appropriateness of its use. Scheduled Meds: apixaban 5 mg Oral BID digoxin 125 mcg Oral QPM docusate sodium 100 mg Oral BID insulin glargine 5 Units Subcutaneous Nightly insulin lispro 2-7 Units Subcutaneous 4 times daily before meals and nightl y insulin lispro 8 Units Subcutaneous TID AC [START ON 02/08/2021] metoprolol succinate 300 mg Oral Daily Continuous Infusions: PRN Meds: acetaminophen OR acetaminophen, benzocaine-menthoL, bisacodyL, dextrose 50%, glucagon OR glucagon, glucose, guaiFENesin, magnesium sulfate, metocloprami de OR metoclopramide, metoprolol, miconazole nitrate, ondansetron, polyethyl bethanie glycol, potassium chloride OR potassium bicarb-citric acid OR potass ium chloride in water, prochlorperazine OR prochlorperazine OR prochlorp erazine, sodium chloride, sodium chloride 0.9% Ave Jurado MD [facility] . * Shawnee Montiel MILITARY SCIENCE TEACHER - 02/07/2021 9:54 AM CDT Images from the original note were not included. Cardiology Progress Note This hospital encounter may have been performed with modifications including chery ited or no face to face contact as noted in physical exam below due to concerns about potential exposure to COVID-19 in an effort to minimize patient and provid er risk. Hospital Day: 12 Chief complaint: AF RVR Clinical summary: This is a 80-year-old male patient with a past medical history of CAD, HTN, DLP, PAF, HFrEF (EF 30%), DM2 and BAM. The patient presented to [facility] with lef t-sided weakness on 01/26. Patient was found to have spinal cord compression with a expansile cervical lesi on. He was started on Solu-Medrol and reimaged. He is status post lumbar punct ure with CSF studies in progress. In this setting, the patient had atrial fibrillation with rapid ventricular resp onse, for which cardiology was consulted. He received an IV digoxin load, and w as resumed on Toprol XL 200 mg daily. Rate control was complicated by hypotensi on, however after resuscitation, the patient is now tolerating beta-blockade. An echocardiogram was repeated this admission which showed mild reduction in EF to 25%. Reportedly, he had an EF of 40% on outside echocardiogram previously. He does not know whether or not he has undergone left heart catheterization or p harmacologic stress testing. He has been cardioverted in the past, but reverted to atrial fibrillation. Montemayor events during this stay: 02/04: consulted for AF RVR Resumed home metoprolol 200 daily, and gave digoxin l oad CHANGES IN THE PAST 24 HOURS: Clinical: Patient resting comfortably in bed. He denies any palpitations, lighth eadedness, dizziness, angina, or dyspnea. Labs/tests/procedures: Na 134, K 3.6, Creat 0.8 EKG/Telemetry: Atrial fibrillation with controlled ventricular response, Atrial fibrillation with rapid ventricular response at 100-120 bpm and Telemetry was pe rsonally reviewed ASSESSMENT & PLAN: Principal Problem: Spinal cord compression (HCC) Active Problems: Spinal cord mass (HCC) Essential hypertension PAF (paroxysmal atrial fibrillation) (HCC) Hemiplegia (HCC) UTI (urinary tract infection) T2DM (type 2 diabetes mellitus) (HCC) Cervical myelopathy (HCC) BAM (obstructive sleep apnea) Diabetic polyneuropathy associated with type 2 diabetes mellitus (HCC) Constipation LFT elevation Thrombocytopenia (HCC) Hypotension Urinary retention Systolic heart failure (HCC) #1 Atrial fibrillation with rapid ventricular response -Rate control strategy adopted: Increased Toprol-XL to 300 mg daily (home dose), digoxin, 125 mcgs q PM -Oral anticoagulation with Eliquis 5 mg twice daily for [id number] of at least 5 -Patient has tachycardia with exertion, but when at rest, at least between 90 an d 120. #2 heart failure with reduced ejection fraction -Etiology unclear, tachycardia-induced,versus ischemia, versus other -Echo-derived EF is 25% this admission, with biatrial dilatation, and elevated p ulmonary artery pressure -Diuretic: Patient appears euvolemic at this time. No indication for diuretic -GDMT: Holding home losartan given relative hypotension, continue metoprolol suc cinate 300 mg daily. IF patient tolerates then plan to add back home losartan -Could consider SGLT2 inhibitor -Risk stratification: Hemoglobin A1c 6.4, fasting lipid profile with LDL of 69, within goal. -Patient will need an ischemic evaluation, either at the tail end of his hospita lization, or as an outpatient. #3 left bundle branch block -Not new, no chest pain, troponin negative #4 hypotension-resolved -Tolerating beta-blockade, resume losartan as appropriate -Lactate improved, blood cultures no growth to date, status post IVF resuscitati on #4 spinal cord compression #5 hemiplegia #6 transaminitis -Management per primary service. Received course of solumedrol, not a typical pr esentation of neoplastic process but cannot rule out primary malignancy. Plan fo r acute rehab and family wishes to be referred to [facility] for further evalua tion I have performed an independent review of the following: EKG Telemetry Echocardiogram I have discussed the case with the following: Another healthcare provider A total of 30 of provider time was spent on retrieving results, reviewing result s, interpreting results and providing communication on results and recommendatio ns. PPE Statement: Shawnee Montiel NP used Green precautions (Level 1 mask, eye prot ection, and gloves). OBJECTIVE: Vitals: BP: (!) 125/97 Pulse: (!) 109 Temp: 36.7 C (98.1 F) Resp: 18 SpO2: 95 % Patient Vitals for the past 96 hrs: Weight 02/07/21 0548 121.9 kg (268 lb 11.9 oz) 02/06/21 0551 121.9 kg (268 lb 12.8 oz) 02/06/21 0339 120.9 kg (266 lb 8 oz) 02/05/21 0412 124.4 kg (274 lb 4.8 oz) 02/04/21 0600 122.7 kg (270 lb 8.1 oz) Intake/Output Summary (Last 24 hours) at 02/07/2021 0954 Last data filed at 02/07/2021 0514 Gross per 24 hour Intake Output 1650 ml Net -1650 ml YOEL Risk Index for in-hospital mortality Age: 80 y.o. BP: (!) 125/97 Pulse: (!) 109 YOEL Risk Index Score: 54 <20 is low risk 20-30 is Intermediate >30 is high risk Physical Exam Vitals reviewed. Constitutional: General: He is not in acute distress. Appearance: He is well-developed. He is obese. HENT: Head: Normocephalic and atraumatic. Eyes: Pupils: Pupils are equal, round, and reactive to light. Cardiovascular: Rate and Rhythm: Tachycardia present. Rhythm irregular. Heart sounds: Normal heart sounds. Pulmonary: Effort: Pulmonary effort is normal. Breath sounds: Normal breath sounds. Abdominal: General: Bowel sounds are normal. Palpations: Abdomen is soft. Musculoskeletal: General: Normal range of motion. Cervical back: Normal range of motion. Right lower leg: Edema present. Left lower leg: Edema present. Skin: General: Skin is warm and dry. Neurological: Mental Status: He is alert and oriented to person, place, and time. Psychiatric: Mood and Affect: Mood normal. Behavior: Behavior normal. Thought Content: Thought content normal. Judgment: Judgment normal. Scheduled medications: apixaban 5 mg Oral BID digoxin 125 mcg Oral QPM docusate sodium 100 mg Oral BID insulin glargine 5 Units Subcutaneous Nightly insulin lispro 2-7 Units Subcutaneous 4 times daily before meals and nightl y insulin lispro 8 Units Subcutaneous TID AC metoprolol succinate 200 mg Oral Daily Infusion medications: Montemayor labs: Recent Labs 02/04/21 1205 02/05/21 0857 02/06/21 1155 WBC 9.47 8.29 9.04 HGB 15.3 14.5 14.9 HCT 43 42 43 PLT 97* 95* 103* INR 1.9* -- -- Recent Labs 02/04/21 1557 02/04/21 1757 02/05/21 0857 02/06/21 1155 02/07/21 0801 NA 131* -- 135 132* 134 K 3.7 -- 4.1 3.8 3.6 CL 101 -- 103 104 104 CO2 27 -- 29 22 24 BUN 33* -- 23 26 21 CREAT 1.0 -- 0.9 0.8 0.8 GLU 106* -- 107* 188* 129* MG -- 2.2 -- -- -- Most Recent Result within the last 7 days Lab Units 02/07/21 0801 02/06/21 1155 02/04/21 1557 ALKALINE PHOSPHATASE IU/L 50 52 41* PROTEIN TOTAL SERUM g/dL 4.8* 5.0* 5.0* ALBUMIN g/dL 2.2* 2.3* 2.4* ALANINE AMINOTRANSFERASE IU/L 57* 68* 118* ASPARTATE AMINOTRANSFERASE IU/L 24 29 44 Most Recent Result within the last 7 days Lab Units 02/04/21 1203 TROPONIN ng/mL 0.01 Lab Results Component Value Date HGBA1C 6.4 (H) 01/23/2021 GLU 129 (H) 02/07/2021 GLU 188 (H) 02/06/2021 GLU 107 (H) 02/05/2021 * Ave Bryson MD - 02/06/2021 1:[address] PM CDT [facility] Patient Name: Angela Sanches Account No: [id number] Date of : 1940 Date of Admission: 01/26/2021 7:39 PM Subjective Follow up regarding limb weakness No acute events overnight. Continues to have very little function of lower extr emities. Left arm more weak than right. No fevers or chills. Discussed ultras ound findings. ROS Const: denies fever, chills Eye: denies visual disturbances ENT: denies PND, sore throat Resp: denies difficulty breathing Card: denies chest pain GI: denies diarrhea, constipation, nausea, vomiting All other systems/symptoms unremarkable, except those described above Objective Vital Signs: Temp: 36.8 C (98.3 F) Pulse: (!) 113 Resp: 18 BP: 118/72 SpO2: 98 % Height: 180.3 cm (5' 11") Weight: 121.9 kg (268 lb 12.8 oz) I/O last 24 Hours: In: - Out: 450 [Urine:450] Physical Exam General: well-developed, well-nourished, and in no apparent acute distress. Head: Normocephalic and atraumatic. Eyes: Conjunctivae are normal. . PERRL. EOMI. CV: normal rate and regular rhythm. No murmurs. Pulm: Effort normal. CTAB. No wheezes/rales/rhonchi. Abdomen: Soft, non-tender to palpation. Normoactive bowel sounds. Neurological: Alert and oriented to person, place, time, and event. . Similar le ft-sided weakness, right lower extremity also 3-4 out of 5 extremities: Pitting edema noted. . pulses 3+ and symmetric bilaterally. Derm: No rash on exposed skin Psychiatric: Normal thought content, speech, affect, and mood. I have personally reviewed the patient's vital signs, laboratory/pathology/cultu re results (as indicated), current inpatient medications, oracle drm consultant notes and s upport staff notes with pertainent findings noted within the assessment/plan. I have personally reviewed the patient's past medical, surgical, family, or social history and there were no changes reported. I have personally spoken with the p conchis, the patient's family/friend, nursing staff and social work/case manageme nt regarding this patient's case. Assessment/Plan Mr. Angela Sanches is a 80 y.o. male who was admitted on 01/26/2021 with complaint of weakness. Problems addressed with today's visit include: * Spinal cord compression (HCC) - expansile cervical lesion noted on outside imaging - NS and Neurology following -NS feels that presentation not typical of neoplastic process. D/W oncall neurol ogy physician, cannot r/o primary malignancy but started on Solumedrol on 01/28 f or a total of 5 doses completed with minimal improvement. - RPR Negative, -repeat C and T spine MRIs reviewed and showing enlargement of long segment cord expansion in the cervical and upper thoracic region - CSF Glucose 126 Protein 246 -S/P LP-CSF studies as per Neuro-nclude CSF VDRL, meningitis/encephalitis panel negative negative. - multiple sclerosis panel light chains elevated. D/W neurology - not clinicall y significat . paraneoplastic panel negative Serologies SSA, SSB, complement, antiphospholipid antibodies, paraneoplastic antibodies, angiotensin-converting enzyme HTLV negative MICHAELA 1:160 - Flow Cytometry negative, Cytology negative for malignant cells. - PMR consulted - recommending [facility]. SW to discuss placement -Discussed with [facility] on-call neurologist. As per requested by patient's family. [facility] is not on the [facility] network system. Therefore this needs to be an outpatient referral. Recommended neuro-oncology consult as an outpatient. This was conveyed to the patient Spinal cord mass (HCC) See plan above Cervical myelopathy (HCC) Cervical myelopathy See plan above Systolic heart failure (HCC) Cardiology following. EF 30%. Plan to have cardiac work up as OP when neurological condition is better defined Urinary retention Likely related to spinal mass Frausto placed. Continue catheter care Hypotension Unclear etiology Lactate normal. No leukocytosis. Blood cultures no growth to date Chest x-ray no focal consolidation When hypotension acutely worsened patient was started Zosyn but there is no vivi r indication of infection we will d/c Thrombocytopenia (HCC) New onset. No previous history Prior to restarting Eliquis patient was on heparin products but currently not o n any heparin. We will hold off on evaluating for HIT Ultrasound abdomen as mentioned Daily CBCs. Improving. INR elevated but patient on eliquis LFT elevation Unclear etiology. Can be due to the hepatic congestion related to the decompensa tion related to Afib with RVR Pending acute hepatitis panel This is also associated with thrombocytopenia. No previous history of liver disease US showing liver lesion 2.3 cm potentially Hemangioma. Will order Ct abdomen to better characterize lesion Constipation No bowel movement since admission. X-ray KUB showing fecal impaction Improving Continue laxatives. T2DM (type 2 diabetes mellitus) (HCC) - Reports that he takes PO meds at home, A1c controlled -Steroids were completed blood sugars are relatively normal. Will decrease Lant us. UTI (urinary tract infection) - Cover with Rocephin. Completed a total of 7 days Will DC antibiotics - Cultures from OSH not available. Hemiplegia (HCC) Left arm/leg - Workup as above - PT/OT- [facility] PAF (paroxysmal atrial fibrillation) (HCC) - Will resume Eliquis given that the there is no surgery anticipated - Patient had an episode of Afib with RVR on 02/04 . Patient was loaded back on d igoxin and started on patients home dose of Toprol XR 200 mg daily Essential hypertension - Continue Toprol 200 mg XR - Hold losartan and HCTZ given BP is soft See my orders for additional details regarding this patients treatment plan. Expected Discharge Date The patient's predicted discharge date is 02/07/2021, but this doesn't guarantee a discharge on this date. Anticipated Discharge Destination The patient's anticipated discharge destination is Rehab facility/ Unit. Room: 13/[place] [address] Diet: Diet-Consistent Carbohydrate (75 gm) VTE Prevention: Appropriate VTE chemical treatment ordered. Appropriate VTE mec hanical treatment ordered. Code Status: DNR Frausto Catheter: Frausto catheter is currently in place. See assessment/plan above for documentatio n regarding the appropriateness of its use. Scheduled Meds: apixaban 5 mg Oral BID digoxin 125 mcg Oral QPM docusate sodium 100 mg Oral BID insulin glargine 5 Units Subcutaneous Nightly insulin lispro 2-7 Units Subcutaneous 4 times daily before meals and nightl y insulin lispro 8 Units Subcutaneous TID AC metoprolol succinate 200 mg Oral Daily Continuous Infusions: PRN Meds: acetaminophen OR acetaminophen, benzocaine-menthoL, bisacodyL, dextrose 50%, glucagon OR glucagon, glucose, guaiFENesin, magnesium sulfate, metocloprami de OR metoclopramide, metoprolol, miconazole nitrate, ondansetron, polyethyl bethanie glycol, potassium chloride OR potassium bicarb-citric acid OR potass ium chloride in water, prochlorperazine OR prochlorperazine OR prochlorp erazine, sodium chloride, sodium chloride 0.9% Ave Jurado MD [facility] . * Vangie Hurd NP - 02/06/2021 10:45 AM CDT Images from the original note were not included. Cardiology Virtual Progress Note This virtual visit was performed in place of a standard hospital consult due to concerns of the ongoing COVID-19 pandemic Hospital Day: 10 Chief complaint: AF RVR Clinical summary: This is a 80-year-old male patient with a past medical history of CAD, HTN, DLP, PAF, HFrEF (EF 30%), DM2 and BAM. [facility] left-sided weakness on 01/26. Patient was found to have spinal cord compression with a expansile cervical lesi on. He was started on Solu-Medrol and reimaged. He is status post lumbar punct ure with CSF studies in progress. In this setting, the patient had atrial fibrillation with rapid ventricular resp onse, for which cardiology was consulted. He received an IV digoxin load, and w as resumed on Toprol XL 200 mg daily. Rate control was complicated by hypotensi on, however after resuscitation, the patient is now tolerating beta-blockade. An echocardiogram was repeated this admission which showed mild reduction in EF to 25%. Reportedly, he had an EF of 40% on outside echocardiogram previously. He does not know whether or not he has undergone left heart catheterization or p harmacologic stress testing. He has been cardioverted in the past, but reverted to atrial fibrillation. Montemayor events during this stay: 02/04: consulted for AF RVR Resumed home metoprolol 200 daily, and gave digoxin l oad CHANGES IN THE PAST 24 HOURS: Clinical: Sitting up in bed, describes mild PND last night, without orthopnea. He does not have chest pain, and is unaware of atrial fibrillation, has no palpi tations. Not lightheaded or dizzy. Just reports from nurse, for balance, heart rate as high as 160. At rest, rate between 100-110. Labs/tests/procedures: Sodium 135, potassium 4.1, chloride 103, carbon dioxide 2 9, creatinine 0.9, EGFR 81. WBC 8.29, hemoglobin 14.5, platelets 95. Echocardiogram 02/04/2021: IMPRESSION 1. Moderately reduced left ventricular systolic function, with an estimated ej ection fraction of 25% 2. No significant valvular abnormalities. 3. Moderate pulmonary hypertension. Estimated PA pressure = 55 mmHg. No previous study available for comparison. EKG/Telemetry: Atrial fibrillation with rapid ventricular response at 90-155 bpm ASSESSMENT & PLAN: Principal Problem: Spinal cord compression (HCC) Active Problems: Spinal cord mass (HCC) Essential hypertension PAF (paroxysmal atrial fibrillation) (HCC) Hemiplegia (HCC) UTI (urinary tract infection) T2DM (type 2 diabetes mellitus) (HCC) Cervical myelopathy (HCC) BAM (obstructive sleep apnea) Diabetic polyneuropathy associated with type 2 diabetes mellitus (HCC) Constipation LFT elevation Thrombocytopenia (HCC) #1 Atrial fibrillation with rapid ventricular response -Rate control strategy adopted: Continue Toprol-XL 200 mg daily, digoxin, 125 mc gs q PM -Oral anticoagulation with Eliquis 5 mg twice daily for [id number] of at least 5 -Patient has tachycardia with exertion, but when at rest, at least between 90 an d 120. #2 heart failure with reduced ejection fraction -Etiology unclear, tachycardia-induced,versus ischemia, versus other -Echo-derived EF is 25% this admission, with biatrial dilatation, and elevated p ulmonary artery pressure -Diuretic: Patient appears euvolemic at this time. No indication for diuretic -GDMT: Holding home losartan given relative hypotension, continue metoprolol suc cinate 200 mg daily -Could consider SGLT2 inhibitor, given its lesser ability to decrease blood pres sure. Will cost check -Risk stratification: Hemoglobin A1c 6.4, fasting lipid profile with LDL of 69, within goal. -Patient will need an ischemic evaluation, either at the tail end of his hospita lization, or as an outpatient. #3 left bundle branch block -Not new, no chest pain, troponin negative #4 hypotension-resolved -Tolerating beta-blockade, resume losartan as appropriate -Lactate improved, blood cultures no growth to date, status post resuscitation #4 spinal cord compression #5 hemiplegia #6 transaminitis -Management per primary service I have performed an independent review of the following: Telemetry I have discussed the case with the following: Another healthcare provider CCMD A total of 15 of provider time was spent on retrieving results, reviewing result s, interpreting results and provided direct patient communication on results and recommendations. OBJECTIVE: Vitals: BP: 107/86 Pulse: (!) 119 Temp: 36.8 C (98.2 F) Resp: 18 SpO2: 98 % Patient Vitals for the past 96 hrs: Weight 02/05/21 0412 124.4 kg (274 lb 4.8 oz) 02/04/21 0600 122.7 kg (270 lb 8.1 oz) 02/02/21 0635 122.7 kg (270 lb 9.6 oz) Intake/Output Summary (Last 24 hours) at 02/05/2021 1337 Last data filed at 02/05/2021 0953 Gross per 24 hour Intake 240 ml Output 4250 ml Net -4010 ml YOEL Risk Index for in-hospital mortality Age: 80 y.o. BP: 107/86 Pulse: (!) 119 YOEL Risk Index Score: 69 <20 is low risk 20-30 is Intermediate >30 is high risk Physical Exam Constitutional: General: He is not in acute distress. Appearance: He is obese. He is not diaphoretic. Eyes: Conjunctiva/sclera: Conjunctivae normal. Pupils: Pupils are equal, round, and reactive to light. Neck: Vascular: No hepatojugular reflux or JVD. Cardiovascular: Rate and Rhythm: Tachycardia present. Rhythm irregular. Pulses: Normal pulses. Radial pulses are 2+ on the right side and 2+ on the left side. Dorsalis pedis pulses are 2+ on the right side and 2+ on the left side. Heart sounds: Normal heart sounds, S1 normal and S2 normal. No murmur heard. No gallop. Pulmonary: Effort: Pulmonary effort is normal. No accessory muscle usage or respiratory distress. Breath sounds: Examination of the right-lower field reveals decreased breath sounds. Examination of the left-lower field reveals decreased breath sounds. Dec reased breath sounds present. Abdominal: General: Bowel sounds are normal. There is no distension. Palpations: Abdomen is soft. There is no fluid wave, hepatomegaly or splenome juju. Tenderness: There is no abdominal tenderness. Musculoskeletal: Comments: Non-pitting LE edema. Skin: General: Skin is warm and dry. Capillary Refill: Capillary refill takes 2 to 3 seconds. Neurological: General: No focal deficit present. Mental Status: He is alert and oriented to person, place, and time. Psychiatric: Mood and Affect: Mood normal. Behavior: Behavior normal. Thought Content: Thought content normal. Judgment: Judgment normal. Scheduled medications: apixaban 5 mg Oral BID digoxin 125 mcg Oral QPM docusate sodium 100 mg Oral BID insulin glargine 5 Units Subcutaneous Nightly insulin lispro 2-7 Units Subcutaneous 4 times daily before meals and nightl y insulin lispro 8 Units Subcutaneous TID AC metoprolol succinate 200 mg Oral Daily piperacillin-tazobactam 3.375 g Intravenous Q6H JERE Infusion medications: Montemayor labs: Recent Labs 02/03/21 1000 02/04/21 1205 02/05/21 0857 WBC 9.30 9.47 8.29 HGB 15.3 15.3 14.5 HCT 45 43 42 PLT 101* 97* 95* INR -- 1.9* -- Recent Labs 02/03/21 1000 02/04/21 1557 02/04/21 1757 02/05/21 0857 NA 132* 131* -- 135 K 4.1 3.7 -- 4.1 CL 100 101 -- 103 CO2 30 27 -- 29 BUN 49* 33* -- 23 CREAT 1.1 1.0 -- 0.9 GLU 103* 106* -- 107* MG -- -- 2.2 -- Most Recent Result within the last 7 days Lab Units 02/04/21 1557 02/03/21 1000 ALKALINE PHOSPHATASE IU/L 41* 46 PROTEIN TOTAL SERUM g/dL 5.0* 5.5* ALBUMIN g/dL 2.4* 2.5* ALANINE AMINOTRANSFERASE IU/L 118* 177* ASPARTATE AMINOTRANSFERASE IU/L 44 81* Most Recent Result within the last 7 days Lab Units 02/04/21 1203 TROPONIN ng/mL 0.01 Lab Results Component Value Date HGBA1C 6.4 (H) 01/23/2021 GLU 107 (H) 02/05/2021 GLU 106 (H) 02/04/2021 GLU 103 (H) 02/03/2021 * Ave Bryson MD - 02/05/2021 2:[address] PM [address]T [facility] Patient Name: Angela Sanches Account No: [id number] Date of : 1940 Date of Admission: 01/26/2021 7:39 PM Subjective Follow up regarding spinal mass, A. fib with RVR Patient's heart rate controlled between 100-110. Patient in atrial fibrillation . Denies having cardiac caths in the past. Ejection fraction 30%. Patient den ies any chest pain, shortness of breath. Continues to have significant weakness on the left side as well as the right lower extremity. ROS Const: denies fever, chills Eye: denies visual disturbances ENT: denies PND, sore throat Resp: denies difficulty breathing Card: denies chest pain GI: denies diarrhea, constipation, nausea, vomiting All other systems/symptoms unremarkable, except those described above Objective Vital Signs: Temp: 36.8 C (98.2 F) Pulse: (!) 106 Resp: 18 BP: 101/52 SpO2: 98 % Height: 180.3 cm (5' 11") Weight: 124.4 kg (274 lb 4.8 oz) I/O last 24 Hours: In: 240 [P.O.:240] Out: 4250 [Urine:4250] Physical Exam General: well-developed, well-nourished, and in no apparent acute distress. Head: Normocephalic and atraumatic. Eyes: Conjunctivae are normal. . PERRL. EOMI. CV: normal rate and regular rhythm. No murmurs. Pulm: Effort normal. CTAB. No wheezes/rales/rhonchi. Abdomen: Soft, non-tender to palpation. Normoactive bowel sounds. Neurological: Alert and oriented to person, place, time, and event. . No focal d eficits. . Extremities: No peripheral edema. pulses 3+ and symmetric bilaterally. Derm: No rash on exposed skin Psychiatric: Normal thought content, speech, affect, and mood. I have personally reviewed the patient's vital signs, laboratory/pathology/cultu re results (as indicated), imaging studies (results were not discussed with the performing provider), current inpatient medications, oracle drm consultant notes and suppor t staff notes with pertainent findings noted within the assessment/plan. I have personally reviewed the patient's past medical, surgical, family, or social hist ory and there were no changes reported. I have personally spoken with the patien t, the patient's family/friend, another physican, nursing staff and social work/ case management regarding this patient's case. Assessment/Plan Mr. Angela Sanches is a 80 y.o. male who was admitted on 01/26/2021 with complaint of left sided weakness Problems addressed with today's visit include: * Spinal cord compression (HCC) - expansile cervical lesion noted on outside imaging - NS and Neurology following -NS feels that presentation not typical of neoplastic process. D/W oncall neurol ogy physician, cannot r/o primary malignancy but started on Solumedrol on 01/28 f or a total of 5 doses completed with minimal improvement. - RPR Negative, -repeat C and T spine MRIs reviewed and showing enlargement of long segment cord expansion in the cervical and upper thoracic region - CSF Glucose 126 Protein 246 -S/P LP-CSF studies as per Neuro-nclude CSF VDRL, meningitis/encephalitis panel negative negative. - multiple sclerosis panel light chains elevated. D/W neurology - not clinicall y significat . paraneoplastic panel negative Serologies SSA, SSB, complement, antiphospholipid antibodies, paraneoplastic antibodies, angiotensin-converting enzyme HTLV negative MICHAELA 1:160 - Flow Cytometry negative, Cytology negative for malignant cells. - PMR consulted - recommending [facility]. SW to discuss placement -Discussed with [facility] on-call neurologist. As per requested by patient's family. [facility] is not on the [facility] network system. Therefore this needs to be an outpatient referral. Recommended neuro-oncology consult as an outpatient. Spinal cord mass (HCC) See plan above Cervical myelopathy (HCC) Cervical myelopathy See plan above Urinary retention Likely related to spinal mass Frausto placed. Continue catheter care Hypotension Unclear etiology Lactate normal. No leukocytosis. Blood cultures no growth to date Chest x-ray no focal consolidation When hypotension acutely worsened yesterday patient was started Zosyn but there is no clear indication of infection we will d/c Thrombocytopenia (HCC) New onset. No previous history Prior to restarting Eliquis patient was on heparin products but currently not o n any heparin. We will hold off on evaluating for HIT Ultrasound abdomen as mentioned Daily CBCs. Stable at 95. INR elevated but patient on eliquis LFT elevation Unclear etiology. Order acute hepatitis panel This is also associated with thrombocytopenia and elevated INR. No previous history of liver disease US showing liver lesion 2.3 cm potentially hemangioma Constipation No bowel movement since admission. X-ray KUB showing fecal impaction Improving Continue laxatives. T2DM (type 2 diabetes mellitus) (HCC) - Reports that he takes PO meds at home, A1c controlled -Steroids were completed blood sugars are relatively normal. Will decrease Lant us. UTI (urinary tract infection) - Cover with Rocephin. Will DC antibiotics - Cultures from OSH not available. Hemiplegia (HCC) Left arm/leg - Workup as above - PT/OT- [facility] PAF (paroxysmal atrial fibrillation) (HCC) - Will resume Eliquis given that the there is no surgery anticipated - Patient had an episode of Afib with RVR on 02/04 . Patient was loaded back on d igoxin and started on patients home dose of Toprol XR 200 mg daily Essential hypertension - Continue Toprol 200 mg XR - Hold losartan and HCTZ given BP is soft See my orders for additional details regarding this patients treatment plan. Expected Discharge Date The patient's predicted discharge date is 02/07/2021, but this doesn't guarantee a discharge on this date. Anticipated Discharge Destination The patient's anticipated discharge destination is Rehab facility/ Unit. Room: [place] [address] Diet: Diet-Consistent Carbohydrate (75 gm) VTE Prevention: Appropriate VTE chemical treatment ordered. Appropriate VTE mec hanical treatment ordered. Code Status: DNR Frausto Catheter: Frausto catheter is currently in place. See assessment/plan above for documentatio n regarding the appropriateness of its use. Scheduled Meds: apixaban 5 mg Oral BID digoxin 125 mcg Oral QPM docusate sodium 100 mg Oral BID insulin glargine 5 Units Subcutaneous Nightly insulin lispro 2-7 Units Subcutaneous 4 times daily before meals and nightl y insulin lispro 8 Units Subcutaneous TID AC metoprolol succinate 200 mg Oral Daily Continuous Infusions: PRN Meds: acetaminophen OR acetaminophen, benzocaine-menthoL, bisacodyL, dextrose 50%, glucagon OR glucagon, glucose, guaiFENesin, magnesium sulfate, metocloprami de OR metoclopramide, metoprolol, miconazole nitrate, ondansetron, polyethyl bethanie glycol, potassium chloride OR potassium bicarb-citric acid OR potass ium chloride in water, prochlorperazine OR prochlorperazine OR prochlorp erazine, sodium chloride, sodium chloride 0.9% Ave Jurado MD [facility] . * Araseli Bro MD - 02/05/2021 6:23 AM CDT Images from the original note were not included. Cardiology Progress Note This hospital encounter may have been performed with modifications including chery ited or no face to face contact as noted in physical exam below due to concerns about potential exposure to COVID-19 in an effort to minimize patient and provid er risk. Hospital Day: 10 Chief complaint: Afib, RVR Clinical summary: Mr Angela Sanches is a 80-year-old male with past medical histo ry of coronary artery disease, hypertension, hyperlipidemia, permanent atrial fi brillation on long-term anticoagulation, heart failure with with reduced EF (EF of 30%) type 2 diabetes and BAM, who was initially admitted to [facility] on 01/26 with left-sided weakness. Patient found to have spinal cord ian blanca with expansive cervical lesion noted on outside imaging. NS feels that pres entation not typical of neoplastic process, but cannot rule out primary malignan cy. Patient is on Solumedrol. Cardiology has been consulted for atrial fibrillat ion with RVR and LBBB. 02/04 patient found low systolic BP in 80s. He was found to be in A. fib with RVR with heart rate running 140s to 150s. EKG was done at demonstrated atrial fibrillation with RVR and a left bundle aaliyah block. H e was given 5% albumin, IVF, a loading dose of digoxin, metoprolol. Cardiology was consulted for further management. Montemayor events during this stay: 02/04 echo CHANGES IN THE PAST 24 HOURS: Clinical: MARCE. Denies having chest pain, palpitations, shortness of breathe. F eeling well overall. Weakness in left arm and leg are similar to previous day in his opinion. Afebrile, HR 100's, improved SBP 100-110's with MAPS 80's, sat 95% room air 3.4L UOP, net -9L since admit Labs/tests/procedures: 2017 echo CONCLUSION: Normal left ventricular size and function. The estimated left ventricular ejection fraction is 60-65%. There is moderate aortic valve regurgitation present. There is severe left atrial enlargement present. There is moderate right atrial enlargement present. There is mild tricuspid valve regurgitation present. The estimated right ventricular systolic pressure is 32 mmHg. There is trace mitral valve regurgitation present. 08/2020 TTE LV systolic dysfunction is present Regional wall motion abnormalities are present consistent with prior anterior in farct LVEF estimate 30% Thickened valvular leaflets with mild aortic insufficiency Moderate concentric left ventricular hypertrophy Diastolic dysfunction Ascending aorta is mildly dilated measures 3.9 cm 02/04/2021 TTE IMPRESSION 1. Moderately reduced left ventricular systolic function, with an estimated ej ection fraction of 25% 2. No significant valvular abnormalities. 3. Moderate pulmonary hypertension. Estimated PA pressure = 55 mmHg. No previous study available for comparison. EKG/Telemetry: Atrial fibrillation with controlled ventricular response, Prematu re ventricular contractions and Nonsustained ventricular tachycardia ASSESSMENT & PLAN: Principal Problem: Spinal cord compression (HCC) Active Problems: Spinal cord mass (HCC) Essential hypertension PAF (paroxysmal atrial fibrillation) (HCC) Hemiplegia (HCC) UTI (urinary tract infection) T2DM (type 2 diabetes mellitus) (HCC) Cervical myelopathy (HCC) BAM (obstructive sleep apnea) Diabetic polyneuropathy associated with type 2 diabetes mellitus (HCC) Constipation LFT elevation Thrombocytopenia (HCC) permenent afib with RVR s/p failed DCCV - asymptomatic - rates uncontrolled, soft BP - patient was not received home digoxin - TSH and T4 wnl - continue eliquis - loaded with dig, resume home digoxin 125 mcg - metoprolol succinate 200 mg daily Acute on chronic HFrEF - etiology: tachyarrythmia vs ischemic vs other - NYHA class - 08/2020 LVEF 30% at OSH - diuresis - metoprolol succinate 200 mg - home losartan held given soft BP - risk stratification: a1c 6.4, lipid panel pending - no reports of ischemic evaluation in medical records, recommend ischemic eval when patient more clinically stable - 02/04 echo EF 25%, Bi-atrial dilation Hypotension - unclear cause - lactate 1.2, afebrile, normal white count - 02/04 blood cx: ngtd - s/p IV albumin, IVF - goal SBP >90, inotropic pressure support if needed - improving LBBB - noted on previous ecg - no chest pain, trop neg Spinal cord compression Hemiplegia transaminits - per primary patient seen and discussed with Dr. Bro, final attestation to follow Piotr Stapleton MD PGY1 Anesthesiology Attending Physician Attestation I, Araseli Bro M.D., have independently seen and examined the patient. Tien lee reviewed the medical record. I agree with the history, assessment, and plan as outlined in the note of Dr. Stapleton with the following revisions and/or additio ns. 76-year-old male with permanent atrial fibrillation, chronic systolic heart fail ure of unclear etiology, type 2 diabetes, obstructive sleep apnea on whom we hav e been consulted to evaluate hypotension and atrial fibrillation with RVR. This patient presented 01/26 with left-sided hemiparesis. Expansive cervical lesion noted with spinal cord compression. Etiology unclear. Patient is on steroids. Some difficulty with hypotension that was responsive to IV fluids. Patient was started on home atrial fibrillation medications with interval improvement in he art rate. 1. Permanent atrial fibrillation Continue metoprolol succinate 200 mg daily and digoxin 0.125 mg daily. Anticoag ulated with apixaban. Heart rate control on telemetry. Some wide-complex tachy cardia. Some episodes may be aberrant conduction. Normal electrolytes. 2. Chronic systolic heart failure, LVEF 30% Etiology unclear. The patient does not know whether he has had any ischemic scott luation to his knowledge. He denies prior coronary revascularization. At some point, an ischemic evaluation would be beneficial, however, this is not urgent a nd can wait for management of the patient's neurologic issues. With recent issues of hypotension, we are holding on aldosterone antagonist or A CE/ARB. These can be considered later in the admission. In the meanwhile, cont inue metoprolol succinate 200 mg daily. Physical Exam BP 107/86 (BP Location: Left arm, Patient position: Supine) | Pulse (!) 119 | Temp 36.8 C (98.2 F) (Oral) | Resp 18 | Ht 1.803 m (5' 11") | Wt 124.4 kg (274 lb 4.8 oz) | SpO2 98% | BMI 38.26 kg/m General: Patient not in acute distress, responsive. HEENT: Normocephalic, atraumatic. CV: Regular rate, irregularly irregular rhythm Pulm: Clear to auscultation bilaterally. Ext: No edema Skin: Warm and well-perfused Neuro: AAOx3 Araseli Bro M.D. OBJECTIVE: Vitals: BP: 102/71 Pulse: (!) 108 Temp: 36.6 C (97.8 F) Resp: 16 SpO2: 96 % Patient Vitals for the past 96 hrs: Weight 02/04/21 0600 122.7 kg (270 lb 8.1 oz) 02/02/21 0635 122.7 kg (270 lb 9.6 oz) 02/01/21 0500 121.5 kg (267 lb 13.7 oz) Intake/Output Summary (Last 24 hours) at 02/04/20212057 Last data filed at 02/04/20211957 Gross per 24 hour Intake 640 ml Output 2850 ml Net -2210 ml YOEL Risk Index for in-hospital mortality Age: 80 y.o. BP: 102/71 Pulse: (!) 108 YOEL Risk Index Score: 66 <20 is low risk 20-30 is Intermediate >30 is high risk Physical Exam Vitals reviewed. HENT: Head: Normocephalic. Eyes: Extraocular Movements: Extraocular movements intact. Pupils: Pupils are equal, round, and reactive to light. Cardiovascular: Rate and Rhythm: Tachycardia present. Rhythm irregular. Pulses: Normal pulses. Heart sounds: Normal heart sounds. No murmur heard. Pulmonary: Effort: Pulmonary effort is normal. Breath sounds: Normal breath sounds. Abdominal: General: Abdomen is flat. There is no distension. Palpations: Abdomen is soft. Musculoskeletal: Right lower leg: Edema present. Left lower leg: Edema present. Skin: General: Skin is warm. Neurological: General: No focal deficit present. Mental Status: He is alert and oriented to person, place, and time. Motor: Weakness present. Psychiatric: Mood and Affect: Mood normal. Behavior: Behavior normal. Scheduled medications: apixaban 5 mg Oral BID digoxin digoxin 250 mcg Intravenous Q8H Followed by [START ON 02/05/2021] digoxin 125 mcg Oral QPM docusate sodium 100 mg Oral BID insulin glargine 5 Units Subcutaneous Nightly insulin lispro 2-7 Units Subcutaneous 4 times daily before meals and nightl y insulin lispro 8 Units Subcutaneous TID AC metoprolol succinate 200 mg Oral Daily piperacillin-tazobactam 3.375 g Intravenous Q6H JERE Infusion medications: Montemayor labs: Recent Labs 02/03/21 1000 02/04/21 1205 WBC 9.30 9.47 HGB 15.3 15.3 HCT 45 43 PLT 101* 97* INR -- 1.9* Recent Labs 02/03/21 1000 02/04/21 1557 02/04/21 1757 NA 132* 131* -- K 4.1 3.7 -- CL 100 101 -- CO2 30 27 -- BUN 49* 33* -- CREAT 1.1 1.0 -- GLU 103* 106* -- MG -- -- 2.2 Most Recent Result within the last 7 days Lab Units 02/04/21 1557 02/03/21 1000 ALKALINE PHOSPHATASE IU/L 41* 46 PROTEIN TOTAL SERUM g/dL 5.0* 5.5* ALBUMIN g/dL 2.4* 2.5* ALANINE AMINOTRANSFERASE IU/L 118* 177* ASPARTATE AMINOTRANSFERASE IU/L 44 81* Most Recent Result within the last 7 days Lab Units 02/04/21 1203 TROPONIN ng/mL 0.01 Lab Results Component Value Date HGBA1C 6.4 (H) 01/23/2021 GLU 106 (H) 02/04/2021 GLU 103 (H) 02/03/2021 GLU 246 (H) 02/01/2021 * Ave Bryson MD - 02/04/2021 10:30 AM CDT [facility] Patient Name: Angela Sanches Account No: [id number] Date of : 1940 Date of Admission: 01/26/2021 7:39 PM Subjective Follow up regarding Left sided weakness She is alert and oriented. Blood pressure is soft, patient mentating well. Con tinues have left-sided weakness. Patient's family was at bedside (2 sons) I inf ormed them that I contacted the [facility] for a referral and they recommended following up with them as an outpatient visit/telemedicine visit. The sons expr essed that they were concerned that if they go to acute med rehab and their [facility] er does not improve and needs long-term nursing care there would be insurance is sena to transfer the patient to a SNF. I expressed that this is a valid concern and ultimately the decision to go to rehab or SNF is the patient's and the famil y's. I informed the family's consent to the social professionals. ROS Const: denies fever, chills Eye: denies visual disturbances ENT: denies PND, sore throat Resp: denies difficulty breathing Card: denies chest pain GI: denies diarrhea, constipation, nausea, vomiting All other systems/symptoms unremarkable, except those described above Objective Vital Signs: Temp: 36.7 C (98 F) Pulse: (!) 118 Resp: 20 BP: 110/79 SpO2: 93 % Height: 180.3 cm (5' 11") Weight: 122.7 kg (270 lb 8.1 oz) I/O last 24 Hours: In: 640 [P.O.:640] Out: 1400 [Urine:1400] Physical Exam General: well-developed, well-nourished, and in no apparent acute distress. Head: Normocephalic and atraumatic. Eyes: Conjunctivae are normal. . PERRL. EOMI. CV: normal rate and regular rhythm. No murmurs. Pulm: Effort normal. CTAB. No wheezes/rales/rhonchi. Abdomen: Soft, non-tender to palpation. Normoactive bowel sounds. Neurological: Alert and oriented to person, place, time, and event. . Persistent left-sided weakness. 2-3/5 Extremities: Pitting edema bilaterally Derm: No rash on exposed skin Psychiatric: Normal thought content, speech, affect, and mood. I have personally reviewed the patient's vital signs, laboratory/pathology/cultu re results (as indicated), current inpatient medications, oracle drm consultant notes and s upport staff notes with pertainent findings noted within the assessment/plan. I have personally reviewed the patient's past medical, surgical, family, or social history and there were no changes reported. I have personally spoken with the p conchis, the patient's family/friend, nursing staff and social work/case manageme nt regarding this patient's case. Assessment/Plan Problems addressed with today's visit include: * Spinal cord compression (HCC) - expansile cervical lesion noted on outside imaging - NS and Neurology following -NS feels that presentation not typical of neoplastic process. D/W oncall neurol ogy physician, cannot r/o primary malignancy but started on Solumedrol on 01/28 f or a total of 5 doses completed with minimal improvement. - RPR Negative, -repeat C and T spine MRIs reviewed and showing enlargement of long segment cord expansion in the cervical and upper thoracic region - CSF Glucose 126 Protein 246 -S/P LP-CSF studies as per Neuro-nclude CSF VDRL, meningitis/encephalitis panel negative negative. - multiple sclerosis panel light chains elevated. D/W neurology - not clinicall y significat . paraneoplastic panel negative Serologies SSA, SSB, complement, antiphospholipid antibodies, paraneoplastic antibodies, angiotensin-converting enzyme HTLV negative MICHAELA 1:160 - Flow Cytometry negative, Cytology negative for malignant cells. - PMR consulted - recommending [facility]. SW to discuss placement -Discussed with [facility] on-call neurologist. As per requested by patient's family. [facility] is not on the [facility] network system. Therefore this needs to be an outpatient referral. Recommended neuro-oncology consult as an outpatient. Spinal cord mass (HCC) See plan above Cervical myelopathy (HCC) Cervical myelopathy See plan above Thrombocytopenia (HCC) New onset. No previous history To restarting Eliquis patient was on heparin products but currently not on any h eparin. We will hold off on evaluating for HIT Ultrasound abdomen ordered Daily CBCs LFT elevation Unclear etiology. Order acute hepatitis panel This is also associated with thrombocytopenia and elevated INR. Will order ultr asound abdomen No previous history of liver disease Constipation No bowel movement since admission. X-ray KUB showing fecal impaction We will order water enema x 2 Continue laxatives. T2DM (type 2 diabetes mellitus) (HCC) - Reports that he takes PO meds at home, A1c controlled -Steroids were completed blood sugars are relatively normal. Will decrease Lant us. UTI (urinary tract infection) - Cover with Rocephin. Will DC antibiotics - Cultures from OSH not available. Hemiplegia (HCC) Left arm/leg - Workup as above - Consult PT/OT PAF (paroxysmal atrial fibrillation) (HCC) - Will resume Eliquis given that the there is no surgery anticipated - Blood pressures soft. Holding parameters changed and 1 L LR ordered. Due to m etoprolol dose Essential hypertension -Reduce Toprol to 25 mg daily given that the blood pressures have been soft. - Hold losartan and HCTZ given BP is soft See my orders for additional details regarding this patients treatment plan. Expected Discharge Date The patient's predicted discharge date is 02/07/2021, but this doesn't guarantee a discharge on this date. Anticipated Discharge Destination The patient's anticipated discharge destination is Rehab facility/ Unit. Room: [place] [address] Diet: Diet-Consistent Carbohydrate (75 gm) Diet NPO VTE Prevention: Appropriate VTE chemical treatment ordered. Appropriate VTE mec hanical treatment ordered. Code Status: DNR Frausto Catheter: Frausto catheter is currently in place. See assessment/plan above for documentatio n regarding the appropriateness of its use. Scheduled Meds: apixaban 5 mg Oral BID digoxin digoxin 250 mcg Intravenous Q8H Followed by [START ON 02/05/2021] digoxin 125 mcg Oral QPM docusate sodium 100 mg Oral BID insulin glargine 5 Units Subcutaneous Nightly insulin lispro 2-7 Units Subcutaneous 4 times daily before meals and nightl y insulin lispro 8 Units Subcutaneous TID AC metoprolol succinate 200 mg Oral Daily piperacillin-tazobactam 3.375 g Intravenous Q6H JERE Continuous Infusions: PRN Meds: acetaminophen OR acetaminophen, benzocaine-menthoL, bisacodyL, dextrose 50%, glucagon OR glucagon, glucose, guaiFENesin, magnesium sulfate, metocloprami de OR metoclopramide, metoprolol, miconazole nitrate, ondansetron, polyethyl bethanie glycol, potassium chloride OR potassium bicarb-citric acid OR potass ium chloride in water, prochlorperazine OR prochlorperazine OR prochlorp erazine, sodium chloride, sodium chloride 0.9% Ave Jurado MD [facility] . * Ave Bryson MD - 02/03/2021 2:[address] PM [address] [facility] Patient Name: Angela Sanches Account No: [id number] Date of : 1940 Date of Admission: 01/26/2021 7:39 PM Subjective Follow up regarding Left upper and LLE weakness. No acute events overnight. Blood pressure soft overnight. Metoprolol holding p arameters changed. Patient states that the left leg weakness is somewhat worse. And disappointed that there are no concrete answers as to what is going on. S poke to the son over the phone as well. Reported that they would like [facility] consult for further recommendations. Also stated that they would come in [facility] tomorrow to visit their father and to talk to everyone. No fevers or c [place] ROS Const: denies fever, chills Eye: denies visual disturbances ENT: denies PND, sore throat Resp: denies difficulty breathing Card: denies chest pain GI: denies diarrhea, constipation, nausea, vomiting All other systems/symptoms unremarkable, except those described above Objective Vital Signs: Temp: 36.3 C (97.4 F) Pulse: 98 Resp: 20 BP: 97/69 SpO2: 97 % H eight: 180.3 cm (5' 11") Weight: 122.7 kg (270 lb 9.6 oz) I/O last 24 Hours: In: - Out: 600 [Urine:600] Physical Exam General: well-developed, well-nourished, and in no apparent acute distress. Head: Normocephalic and atraumatic. Eyes: Conjunctivae are normal. . PERRL. EOMI. CV: normal rate and regular rhythm. No murmurs. Pulm: Effort normal. CTAB. No wheezes/rales/rhonchi. Abdomen: Soft, non-tender to palpation. Normoactive bowel sounds. Neurological: Alert and oriented to person, place, time, and event. . ? Weakness seems to be worsening on LLE, LUE 3+/5 . Extremities: No peripheral edema. pulses 3+ and symmetric bilaterally. Derm: No rash on exposed skin Psychiatric: Normal thought content, speech, affect, and mood. I have personally reviewed the patient's vital signs, laboratory/pathology/cultu re results (as indicated), current inpatient medications, oracle drm consultant notes and s upport staff notes with pertainent findings noted within the assessment/plan. I have personally reviewed the patient's past medical, surgical, family, or social history and there were no changes reported. I have personally spoken with the p conchis, the patient's family/friend, another physican, nursing staff and social work/case management regarding this patient's case. Assessment/Plan Mr. Angela Sanches is a 80 y.o. male who was admitted on 01/26/2021 with complaint of Left lower extremity weakness. Problems addressed with today's visit include: * Spinal cord compression (HCC) - expansile cervical lesion noted on outside imaging - NS and Neurology following -NS feels that presentation not typical of neoplastic process. D/W oncall neurol ogy physician, cannot r/o primary malignancy but started on Solumedrol on 01/28 f or a total of 5 doses completed with minimal improvement. - RPR Negative, -repeat C and T spine MRIs reviewed and showing enlargement of long segment cord expansion in the cervical and upper thoracic region - CSF Glucose 126 Protein 246 -S/P LP-CSF studies as per Neuro-nclude CSF VDRL, meningitis/encephalitis panel negative negative. - multiple sclerosis panel light chains elevated. D/W neurology - not clinicall y significat . paraneoplastic panel negative Serologies SSA, SSB, complement, antiphospholipid antibodies, paraneoplastic antibodies, angiotensin-converting enzyme HTLV negative MICHAELA 1:160 - Flow Cytometry negative, Cytology negative for malignant cells. - PMR consulted - recommending [facility]. SW to discuss placement -Discussed with [facility] on-call neurologist. As per requested by patient's family. [facility] is not on the [facility] network system. Therefore this needs to be an outpatient referral. Recommended neuro-oncology consult as an outpatient. Spinal cord mass (HCC) See plan above Cervical myelopathy ([facility]) Cervical myelopathy See plan above Constipation No bowel movement since admission. X-ray KUB showing fecal impaction We will order water enema x 2 Continue laxatives. T2DM (type 2 diabetes mellitus) ([facility]) - Reports that he takes PO meds at home, A1c controlled -Steroids were completed blood sugars are relatively normal. Will decrease Lant us. UTI (urinary tract infection) - Cover with Rocephin. Will DC antibiotics - Cultures from OSH not available. Hemiplegia ([facility]) Left arm/leg - Workup as above - Consult PT/OT PAF (paroxysmal atrial fibrillation) ([facility]) - Will resume Eliquis given that the there is no surgery anticipated - Blood pressures soft. Holding parameters changed and 1 L LR ordered Essential hypertension - Continue Toprol for now - Hold losartan and HCTZ given BP is soft See my orders for additional details regarding this patients treatment plan. Expected Discharge Date The patient's predicted discharge date is 02/04/2021, but this doesn't guarantee a discharge on this date. Anticipated Discharge Destination The patient's anticipated discharge destination is Rehab facility/ Unit. Room: [place] [address] Diet: Diet-Consistent Carbohydrate (75 gm) VTE Prevention: Appropriate VTE chemical treatment ordered. Appropriate VTE mec hanical treatment ordered. Code Status: DNR Frausto Catheter: Frausto catheter is currently in place. See assessment/plan above for documentatio n regarding the appropriateness of its use. Scheduled Meds: apixaban 5 mg Oral BID docusate sodium 100 mg Oral BID insulin glargine 5 Units Subcutaneous Nightly insulin lispro 2-7 Units Subcutaneous 4 times daily before meals and nightl y insulin lispro 8 Units Subcutaneous TID AC lactated ringers 1,000 mL Intravenous Once [START ON 02/04/2021] metoprolol succinate 25 mg Oral Daily Continuous Infusions: PRN Meds: acetaminophen OR acetaminophen, benzocaine-menthoL, bisacodyL, dextrose 50%, glucagon OR glucagon, glucose, guaiFENesin, magnesium sulfate, metocloprami de OR metoclopramide, miconazole nitrate, ondansetron, polyethylene glycol, potassium chloride OR potassium bicarb-citric acid OR potassium chloride in water, prochlorperazine OR prochlorperazine OR prochlorperazine, sod ium chloride Ave Jurado MD [facility] . * Ave Bryson MD - 02/02/2021 4:[address] PM [address] [facility] Patient Name: Angela Sanches Account No: [id number] Date of : 1940 Date of Admission: 01/26/2021 7:39 PM Subjective Follow up regarding left sided weakness No acute events overnight. Continues to have left-sided weakness with minimal i mprovement. Having bowel movements the past 2 days. No fevers or chills. ROS Const: denies fever, chills Eye: denies visual disturbances ENT: denies PND, sore throat Resp: denies difficulty breathing Card: denies chest pain GI: denies diarrhea, constipation, nausea, vomiting All other systems/symptoms unremarkable, except those described above Objective Vital Signs: Temp: 36.5 C (97.7 F) Pulse: (!) 58 Resp: 18 BP: (!) 103/90 SpO 2: 97 % Height: 180.3 cm (5' 11") Weight: 122.7 kg (270 lb 9.6 oz) No intake/output data recorded. Physical Exam General: well-developed, well-nourished, and in no apparent acute distress. Head: Normocephalic and atraumatic. Eyes: Conjunctivae are normal. . PERRL. EOMI. CV: normal rate and regular rhythm. No murmurs. Pulm: Effort normal. CTAB. No wheezes/rales/rhonchi. Abdomen: Soft, non-tender to palpation. Normoactive bowel sounds. Neurological: Alert and oriented to person, place, time, and event. . Left-sided weakness with minimal improvement.. Extremities: No peripheral edema. pulses 3+ and symmetric bilaterally. Derm: No rash on exposed skin Psychiatric: Normal thought content, speech, affect, and mood. I have personally reviewed the patient's vital signs, laboratory/pathology/cultu re results (as indicated), current inpatient medications, oracle drm consultant notes and s upport staff notes with pertainent findings noted within the assessment/plan. I have personally reviewed the patient's past medical, surgical, family, or social history and there were no changes reported. I have personally spoken with the p conchis, the patient's family/friend, nursing staff and social work/case manageme nt regarding this patient's case. Assessment/Plan Mr. Angela Sanches is a 80 y.o. male who was admitted on 01/26/2021 with complaint of left-sided weakness. Problems addressed with today's visit include: * Spinal cord compression (HCC) - expansile cervical lesion noted on outside imaging - NS and Neurology following -NS feels that presentation not typical of neoplastic process. D/W oncall neurol ogy physician, cannot r/o primary malignancy but started on Solumedrol on 01/28 f or a total of 5 doses - RPR Negative, -repeat C and T spine MRIs reviewed and showing enlargement of long segment cord expansion in the cervical and upper thoracic region - CSF Glucose 126 Protein 246 -S/P LP-CSF studies as per Neuro-nclude CSF VDRL, meningitis/encephalitis panel negative negative. - multiple sclerosis panel mildly elevated. paraneoplastic panel pending Serologies SSA, SSB, complement, antiphospholipid antibodies, paraneoplastic antibodies, angiotensin-converting enzyme HTLV negative MICHAELA 1:160 - Flow Cytometry negative, Cytology negative for malignant cells. - Improvement slow. - PMR consulted - recommending [facility]. SW to discuss placement Spinal cord mass (HCC) See plan above Cervical myelopathy (HCC) Cervical myelopathy See plan above Constipation No bowel movement since admission. X-ray KUB showing fecal impaction We will order water enema x 2 Continue laxatives. T2DM (type 2 diabetes mellitus) ([facility]) - Reports that he takes PO meds at home, A1c controlled -Blood sugar elevated since starting steroids. We will start Lantus and mealtime insulin along with sliding scale UTI (urinary tract infection) - Cover with Rocephin. Will DC antibiotics - Cultures from OSH not available. Hemiplegia (HCC) Left arm/leg - Workup as above - Consult PT/OT PAF (paroxysmal atrial fibrillation) ([facility]) - Will resume Eliquis given that the there is no surgery anticipated - Continue Toprol Essential hypertension - Continue Toprol for now - Hold losartan and HCTZ given BP is soft See my orders for additional details regarding this patients treatment plan. Expected Discharge Date The patient's predicted discharge date is 02/04/2021, but this doesn't guarantee a discharge on this date. Anticipated Discharge Destination The patient's anticipated discharge destination is Rehab facility/ Unit. Room: 13/[place] [address] Diet: Diet-Consistent Carbohydrate (75 gm) VTE Prevention: Appropriate VTE chemical treatment ordered. Appropriate VTE mec hanical treatment ordered. Code Status: DNR Frausto Catheter: Frausto catheter is currently in place. See assessment/plan above for documentatio n regarding the appropriateness of its use. Scheduled Meds: apixaban 5 mg Oral BID docusate sodium 100 mg Oral BID insulin glargine 12 Units Subcutaneous Nightly insulin lispro 2-7 Units Subcutaneous 4 times daily before meals and nightl y insulin lispro 8 Units Subcutaneous TID AC metoprolol succinate 100 mg Oral Daily pantoprazole 40 mg Oral Daily Continuous Infusions: PRN Meds: acetaminophen OR acetaminophen, benzocaine-menthoL, bisacodyL, dextrose 50%, glucagon OR glucagon, glucose, guaiFENesin, magnesium sulfate, metocloprami de OR metoclopramide, miconazole nitrate, ondansetron, polyethylene glycol, potassium chloride OR potassium bicarb-citric acid OR potassium chloride in water, prochlorperazine OR prochlorperazine OR prochlorperazine, sod ium chloride Ave Jurado MD [facility] . * Ave Bryson MD - 02/01/2021 12:[address] PM [address] [facility] Patient Name: Angela Sanches Account No: [id number] Date of : 1940 Date of Admission: 01/26/2021 7:39 PM Subjective Follow up regarding left sided weakness No acute events overnight. Had a small bowel movement overnight. States that t he improvement on the left side weakness is minimal. We discussed that most of the labs are normal. Most likely he will need acute med rehab to maintain funct ion. He is concerned about the financial aspect of this. Discussed current suhail n and findings with patient's ex- over the phone as requested by the patient . Ex- requested that social work call her son to discuss financials. She w ill call the hospital and give her son's number number to the nurse. ROS Const: denies fever, chills Eye: denies visual disturbances ENT: denies PND, sore throat Resp: denies difficulty breathing Card: denies chest pain GI: denies diarrhea, constipation, nausea, vomiting All other systems/symptoms unremarkable, except those described above Objective Vital Signs: Temp: 36.4 C (97.5 F) Pulse: (!) 111 Resp: 18 BP: 99/76 SpO2: 9 5 % Height: 180.3 cm (5' 11") Weight: 121.5 kg (267 lb 13.7 oz) (daily weight) I/O last 24 Hours: In: 240 [P.O.:240] Out: 825 [Urine:825] Physical Exam General: well-developed, well-nourished, and in no apparent acute distress. Head: Normocephalic and atraumatic. Eyes: Conjunctivae are normal. . PERRL. EOMI. CV: normal rate and regular rhythm. No murmurs. Pulm: Effort normal. CTAB. No wheezes/rales/rhonchi. Abdomen: Soft, non-tender to palpation. Normoactive bowel sounds. Neurological: Alert and oriented to person, place, time, and event. Left-sided arm leg weakness similar to previous examination. Extremities: No peripheral edema. pulses 3+ and symmetric bilaterally. Derm: No rash on exposed skin Psychiatric: Normal thought content, speech, affect, and mood. I have personally reviewed the patient's vital signs, laboratory/pathology/cultu re results (as indicated), current inpatient medications, oracle drm consultant notes and s upport staff notes with pertainent findings noted within the assessment/plan. I have personally reviewed the patient's past medical, surgical, family, or social history and there were no changes reported. I have personally spoken with the p conchis, the patient's family/friend, another physican, nursing staff and social work/case management regarding this patient's case. Assessment/Plan Mr. Angela Sanches is a 80 y.o. male who was admitted on 01/26/2021 with complaint of Let sided weakness . Problems addressed with today's visit include: * Spinal cord compression (HCC) - expansile cervical lesion noted on outside imaging - NS and Neurology following -NS feels that presentation not typical of neoplastic process. D/W oncall neurol ogy physician, cannot r/o primary malignancy but started on Solumedrol on 01/28 f or a total of 5 doses - RPR Negative, -repeat C and T spine MRIs reviewed and showing enlargement of long segment cord expansion in the cervical and upper thoracic region - CSF Glucose 126 Protein 246 -S/P LP-CSF studies as per Neuro-nclude CSF VDRL, meningitis/encephalitis panel negative negative. - multiple sclerosis panel mildly elevated. paraneoplastic panel pending Serologies SSA, SSB, complement, antiphospholipid antibodies, paraneoplastic antibodies, angiotensin-converting enzyme HTLV negative MICHAELA 1:160 - Flow Cytometry negative, Cytology negative for malignant cells. - Improvement slow. - PMR consulted - recommending [facility]. SW to discuss placement Spinal cord mass (HCC) See plan above Cervical myelopathy (HCC) Cervical myelopathy See plan above Constipation No bowel movement since admission. X-ray KUB showing fecal impaction We will order water enema x 2 Continue laxatives. T2DM (type 2 diabetes mellitus) ([facility]) - Reports that he takes PO meds at home, A1c controlled -Blood sugar elevated since starting steroids. We will start Lantus and mealtime insulin along with sliding scale UTI (urinary tract infection) - Cover with Rocephin - Will need to follow up cultures from OSH Hemiplegia ([facility]) Left arm/leg - Workup as above - Consult PT/OT PAF (paroxysmal atrial fibrillation) ([facility]) - Will resume Eliquis given that the there is no surgery anticipated - Continue Toprol Essential hypertension - Continue Toprol for now - Hold losartan and HCTZ given BP is soft See my orders for additional details regarding this patients treatment plan. Expected Discharge Date The patient's predicted discharge date is 02/02/2021, but this doesn't guarantee a discharge on this date. Anticipated Discharge Destination The patient's anticipated discharge destination is Rehab facility/ Unit. Room: [place] [address] Diet: Diet-Consistent Carbohydrate (75 gm) VTE Prevention: Appropriate VTE chemical treatment ordered. Appropriate VTE mec hanical treatment ordered. Code Status: DNR Frausto Catheter: Frausto catheter is currently in place. See assessment/plan above for documentatio n regarding the appropriateness of its use. Scheduled Meds: apixaban 5 mg Oral BID cefTRIAXone 1 g Intravenous Daily docusate sodium 100 mg Oral BID insulin glargine 12 Units Subcutaneous Nightly insulin lispro 2-7 Units Subcutaneous 4 times daily before meals and nightl y insulin lispro 8 Units Subcutaneous TID AC melatonin 6 mg Oral Nightly [START ON 02/02/2021] metoprolol succinate 100 mg Oral Daily pantoprazole 40 mg Oral Daily Continuous Infusions: PRN Meds: acetaminophen OR acetaminophen, benzocaine-menthoL, bisacodyL, dextrose 50%, glucagon OR glucagon, glucose, guaiFENesin, magnesium sulfate, metocloprami de OR metoclopramide, miconazole nitrate, ondansetron, polyethylene glycol, potassium chloride OR potassium bicarb-citric acid OR potassium chloride in water, prochlorperazine OR prochlorperazine OR prochlorperazine, sod ium chloride Ave Jurado MD [facility] . * Ave Bryson MD - 01/31/2021 12:[address] [facility] Patient Name: Angela Sanches Account No: [id number] Date of : 1940 Date of Admission: 01/26/2021 7:39 PM Subjective Follow up regarding left-sided weakness No acute events overnight. Denies any pain. Has not had any bowel movement sin ce admission. No passing gas. Denies any nausea vomiting abdominal pain. Disc ussed that we will get an x-ray KUB. Weakness is about the same. Reports that he is attempting to continue to move his left arm and leg while in the bed. Veronica gabriel is agreeable to rehab. PMR consulted. Discussed current plan with son ace mulligan phone. SANCHO Const: denies fever, chills Eye: denies visual disturbances ENT: denies PND, sore throat Resp: denies difficulty breathing Card: denies chest pain GI: denies diarrhea, constipation, nausea, vomiting All other systems/symptoms unremarkable, except those described above Objective Vital Signs: Temp: 36.4 C (97.6 F) Pulse: (!) 112 Resp: 18 BP: 104/86 SpO2: 97 % Height: 180.3 cm (5' 11") Weight: 121.5 kg (267 lb 12.8 oz) I/O last 24 Hours: In: - Out: 550 [Urine:550] Physical Exam General: well-developed, well-nourished, and in no apparent acute distress. Head: Normocephalic and atraumatic. Eyes: Conjunctivae are normal. . PERRL. EOMI. CV: normal rate and regular rhythm. No murmurs. Pulm: Effort normal. CTAB. No wheezes/rales/rhonchi. Abdomen: Abdomen distended but nontender. Bowel sounds heard. Neurological: Alert and oriented to person, place, time, and event. Similar lef t-sided weakness. Extremities: No peripheral edema. pulses 3+ and symmetric bilaterally. Derm: No rash on exposed skin Psychiatric: Normal thought content, speech, affect, and mood. I have personally reviewed the patient's vital signs, laboratory/pathology/cultu re results (as indicated), current inpatient medications, oracle drm consultant notes and s upport staff notes with pertainent findings noted within the assessment/plan. I have personally reviewed the patient's past medical, surgical, family, or social history and there were no changes reported. I have personally spoken with the p conchis, the patient's family/friend, another physican, nursing staff and social work/case management regarding this patient's case. Assessment/Plan Mr. Angela Sanches is a 80 y.o. male who was admitted on 01/26/2021 with complaint of left-sided weakness. Problems addressed with today's visit include: * Spinal cord compression (HCC) - expansile cervical lesion noted on outside imaging - NS and Neurology following -NS feels that presentation not typical of neoplastic process. D/W oncall neurol ogy physician, cannot r/o primary malignancy but started on Solumedrol on 01/28 f or a total of 5 doses - RPR Negative, -repeat C and T spine MRIs reviewed and showing enlargement of long segment cord expansion in the cervical and upper thoracic region - CSF Glucose 126 Protein 246 -S/P LP-CSF studies as per Neuro-nclude CSF VDRL, meningitis/encephalitis panel negative negative. - multiple sclerosis panel mildly elevated. paraneoplastic panel pending Serologies SSA, SSB, complement, antiphospholipid antibodies, paraneoplastic antibodies, angiotensin-converting enzyme HTLV negative MICHAELA 1:160 - Flow Cytometry negative - Improvement slow. Will consult PMR Spinal cord mass (HCC) See plan above Cervical myelopathy ([facility]) Cervical myelopathy See plan above Constipation No bowel movement since admission. X-ray KUB showing fecal impaction We will order water enema Continue laxatives. T2DM (type 2 diabetes mellitus) ([facility]) - Reports that he takes PO meds at home, A1c controlled -Blood sugar elevated since starting steroids. We will start Lantus and mealtime insulin along with sliding scale UTI (urinary tract infection) - Cover with Rocephin - Will need to follow up cultures from OSH Hemiplegia ([facility]) Left arm/leg - Workup as above - Consult PT/OT PAF (paroxysmal atrial fibrillation) ([facility]) - Will resume Eliquis given that the there is no surgery anticipated - Continue Toprol Essential hypertension - Continue Toprol for now - Hold losartan and HCTZ given BP is soft See my orders for additional details regarding this patients treatment plan. Expected Discharge Date The patient's predicted discharge date is 02/02/2021, but this doesn't guarantee a discharge on this date. Anticipated Discharge Destination The patient's anticipated discharge destination is SNF Medicare Certified ([facility] Room: [place] [address] Diet: Diet-Consistent Carbohydrate (75 gm) VTE Prevention: Appropriate VTE chemical treatment ordered. Appropriate VTE mec hanical treatment ordered. Code Status: DNR Frausto Catheter: Frausto catheter is currently in place. See assessment/plan above for documentatio n regarding the appropriateness of its use. Scheduled Meds: apixaban 5 mg Oral BID cefTRIAXone 1 g Intravenous Daily docusate sodium 100 mg Oral BID insulin glargine 8 Units Subcutaneous Nightly insulin lispro 2-7 Units Subcutaneous 4 times daily before meals and nightl y insulin lispro 5 Units Subcutaneous TID AC melatonin 6 mg Oral Nightly methylPREDNISolone sodium succinate 1,000 mg Intravenous Q24H JERE metoprolol succinate 300 mg Oral Daily pantoprazole 40 mg Oral Daily Continuous Infusions: PRN Meds: acetaminophen OR acetaminophen, benzocaine-menthoL, bisacodyL, dextrose 50%, glucagon OR glucagon, glucose, guaiFENesin, magnesium sulfate, metocloprami de OR metoclopramide, miconazole nitrate, ondansetron, polyethylene glycol, potassium chloride OR potassium bicarb-citric acid OR potassium chloride in water, prochlorperazine OR prochlorperazine OR prochlorperazine, sod ium chloride Ave Jurado MD [facility] . * Ave Bryson MD - 01/30/2021 10:[address] [facility] Patient Name: Angela Sanches Account No: [id number] Date of : 1940 Date of Admission: 01/26/2021 7:39 PM Subjective Follow up regarding left-sided weakness. No acute events overnight. Reports that he feels stronger today but still needs 2-3 people to help him his transfer. Denies any headache, nausea vomiting. Gonsalez s not had a bowel movement since admission, not passing gas denies any abdominal pain. We discussed that therapy reports pending and until that time we plan to continue the steroids. ROS Const: denies fever, chills Eye: denies visual disturbances ENT: denies PND, sore throat Resp: denies difficulty breathing Card: denies chest pain GI: denies diarrhea,, nausea, vomiting. + constipation All other systems/symptoms unremarkable, except those described above Objective Vital Signs: Temp: 36.3 C (97.4 F) Pulse: (!) 118 Resp: 20 BP: 105/76 SpO2: 95 % Height: 180.3 cm (5' 11") Weight: 122.8 kg (270 lb 12.8 oz) I/O last 24 Hours: In: - Out: 500 [Urine:500] Physical Exam General: well-developed, well-nourished, and in no apparent acute distress. Head: Normocephalic and atraumatic. Eyes: Conjunctivae are normal. . PERRL. EOMI. CV: normal rate and regular rhythm. No murmurs. Pulm: Effort normal. CTAB. No wheezes/rales/rhonchi. Abdomen: Soft, non-tender to palpation. Normoactive bowel sounds. Neurological: LUE 3/5, LLE 3/5, RUE 4/5, RLE 3/5, Reflexes 2+ Extremities: No peripheral edema. pulses 3+ and symmetric bilaterally. Derm: No rash on exposed skin Psychiatric: Normal thought content, speech, affect, and mood. I have personally reviewed the patient's vital signs, laboratory/pathology/cultu re results (as indicated), current inpatient medications, oracle drm consultant notes and s upport staff notes with pertainent findings noted within the assessment/plan. I have personally reviewed the patient's past medical, surgical, family, or social history and there were no changes reported. I have personally spoken with the p conchis, the patient's family/friend, another physican and social work/case manag ement regarding this patient's case. Assessment/Plan Mr. Angela Sanches is a 80 y.o. male who was admitted on 01/26/2021 with complaint of Left side weakness . Problems addressed with today's visit include: * Spinal cord compression (HCC) - expansile cervical lesion noted on outside imaging - NS and Neurology following -NS feels that presentation not typical of neoplastic process. D/W oncall neurol ogy physician, cannot r/o primary malignancy but started on Solumedrol on 01/28 - RPR Negative, -repeat C and T spine MRIs reviewed and showing enlargement of long segment cord expansion in the cervical and upper thoracic region - CSF Glucose 126 Protein 246 -S/P LP-CSF studies as per Neuro-nclude CSF VDRL, meningitis/encephalitis panel negative , multiple sclerosis panel, paraneoplastic panel pending Serologies SSA, SSB, complement, antiphospholipid antibodies, paraneoplastic antibodies, angiotensin-converting enzym pending , HTLV negative MICHAELA 1:160 - Improvement slow. Will consult PMR - Spinal cord mass (HCC) See plan above Cervical myelopathy (HCC) Cervical myelopathy See plan above T2DM (type 2 diabetes mellitus) ([facility]LY [facility]) - Reports that he takes PO meds at home, A1c controlled - Monitor accucheks with correction factor UTI (urinary tract infection) - Cover with Rocephin - Will need to follow up cultures from OSH Hemiplegia (HCC) Left arm/leg - Workup as above - Consult PT/OT PAF (paroxysmal atrial fibrillation) (HCC) - Hold Eliquis - Continue Toprol -start sc heparin while holding eliquis Essential hypertension - Continue Toprol for now - Hold losartan and HCTZ See my orders for additional details regarding this patients treatment plan. Expected Discharge Date The patient's predicted discharge date is 01/29/2021, but this doesn't guarantee a discharge on this date. Anticipated Discharge Destination The patient's anticipated discharge destination is SNF Medicare Certified. Room: [place] [address] Diet: Diet-Consistent Carbohydrate (75 gm) VTE Prevention: Appropriate VTE chemical treatment ordered. Appropriate VTE mec hanical treatment ordered. Code Status: DNR Frausto Catheter: Frausto catheter is currently in place. See assessment/plan above for documentatio n regarding the appropriateness of its use. Scheduled Meds: cefTRIAXone 1 g Intravenous Daily docusate sodium 100 mg Oral BID heparin (porcine) 5,000 Units Subcutaneous Q8H insulin lispro 2-7 Units Subcutaneous 4 times daily before meals and nightl y magnesium citrate 296 mL Oral Once melatonin 6 mg Oral Nightly methylPREDNISolone sodium succinate 1,000 mg Intravenous Q24H JERE metoprolol succinate 300 mg Oral Daily pantoprazole 40 mg Oral Daily Continuous Infusions: PRN Meds: acetaminophen OR acetaminophen, benzocaine-menthoL, bisacodyL, dextrose 50%, glucagon OR glucagon, glucose, guaiFENesin, magnesium sulfate, metocloprami de OR metoclopramide, miconazole nitrate, ondansetron, polyethylene glycol, potassium chloride OR potassium bicarb-citric acid OR potassium chloride in water, prochlorperazine OR prochlorperazine OR prochlorperazine, sod ium chloride Ave Jurado MD [facility] . * Bonifacio Yanique Jonathan, FOOD EXPEDITOR - 01/30/2021 8:52 AM CDT NEUROLOGY PROGRESS NOTE Patient: Angela Sanches : 1940 PCP: Christophe Kennedy MD LOS: 4 CHIEF COMPLAINT Progressive left sided weakness INTERVAL HISTORY History is provided via: Chart review, patient Visitors at the bedside: none No acute events overnight. Per patient his left upper and lower extremity feels slightly stronger. CSF studies are still pending. Discussed with patient five da ys of solumedrol. Further discussion regarding extensive rehabilitation efforts to gain strength. Patient verbalized understanding. REVIEW OF SYSTEMS 5 point review of systems negative except as noted in history as above MEDICATIONS cefTRIAXone 1 g Intravenous Daily heparin (porcine) 5,000 Units Subcutaneous Q8H insulin lispro 2-7 Units Subcutaneous 4 times daily before meals and nightl y melatonin 6 mg Oral Nightly methylPREDNISolone sodium succinate 1,000 mg Intravenous Q24H JERE metoprolol succinate 300 mg Oral Daily pantoprazole 40 mg Oral Daily acetaminophen OR acetaminophen, benzocaine-menthoL, bisacodyL, dextrose 50%, docusate sodium, glucagon OR glucagon, glucose, guaiFENesin, magnesium sulf ate, metoclopramide OR metoclopramide, miconazole nitrate, ondansetron, poly ethylene glycol, potassium chloride OR potassium bicarb-citric acid OR p otassium chloride in water, prochlorperazine OR prochlorperazine OR proc hlorperazine, sodium chloride PHYSICAL EXAMINATION Patient Vitals for the past 4 hrs: BP Temp Temp src Pulse Resp SpO2 01/30/21 0755 105/76 36.3 C (97.4 F) Oral (!) 118 20 95 % Systolic (24hrs), Av , Min:90 , Max:116 Diastolic (24hrs), Av, Min:52, Max:82 Ht Readings from Last 1 Encounters: 01/28/21 1.803 m (5' 11") Wt Readings from Last 1 Encounters: 01/29/21 122.8 kg (270 lb 12.8 oz) Body mass index is 37.77 kg/m. General: Mr. Sanches is a appearing male in no acute distress. Sitting up in bed, just finished eating breakfast Head: Oropharynx clear. Head normocephalic, atraumatic. Cardiac: Regular rate and rhythm. Lungs: Non-labored. Extremities: No cyanosis or edema. No clear skin lesions noted. Mental status, cognition, and cortical functions: Mental status: alert and orientated to person, place, time. Able to give a pa rtial medical history. Language is fluent with intact comprehension and repetition. Speech is clear and without dysarthria. Cranial nerves: Pupils are 3 mm equal, round, and reactive to light. Extraocular eye movements: follows examiner around the room Facial sensation is intact to light touch throughout. Muscles of facial expression are symmetric at rest and with activation. Hearing is intact to conversation Palate elevates symmetrically. Tongue protrudes in the midline and has full excursions. Motor: Muscle bulk is normal throughout. Muscle tone is normal throughout. Strength on confrontational testing: Left arm strength: proximal 3/5, distal 4-/5 Left lower strength: proximal: 3-/5 falls to gravity, distal: 2+/5 Hand strength: left hand: 4/5 Right upper and lower extremities: 5/5 Gait and coordination: Gait: deferred at this time Rapid alternating movements in the left upper extremities (finger tapping) d ecreased [id number] without dystaxia or dysmetria Sensation: Light touch sensation is intact throughout. No extinction on double simultaneous tactile stimulation. STUDIES REVIEWED IR Lumbar puncture w fluoro Result Date: 01/27/2021 Successful fluoroscopically-guided lumbar puncture without complication. MRI Cervical Spine w wo contrast Result Date: 01/28/2021 Long segment cord expansion extending from the cervical spinal cord into the upp er thoracic spinal cord with questionable subtle enhancement. This could be due to intramedullary neoplasm such as spinal ependymoma or spinal astrocytoma. Othe r differential considerations would include inflammatory process such as transve rse myelitis, neuromyelitis optica, or neurosarcoidosis. MRI Head w wo contrast Result Date: 01/28/2021 1. No acute infarct or hemorrhage. 2. No brain mass or abnormal enhancement. 3. Mild subcortical and deep periventricular white matter FLAIR hyperintensities, a nonspecific finding, most commonly seen with chronic small vessel ischemic dise ase. 4. Please see separately dictated cervical and thoracic spine MRI for spina l cord findings. MRI Thoracic Spine w wo contrast Result Date: 01/28/2021 Long segment cord expansion extending from the cervical spinal cord into the upp er thoracic spinal cord with questionable subtle enhancement. This could be due to intramedullary neoplasm such as spinal ependymoma or spinal astrocytoma. Othe r differential considerations would include inflammatory process such as transve rse myelitis, neuromyelitis optica, or neurosarcoidosis. LABS REVIEWED Most Recent Result within the last 7 days Lab Units 01/27/21 1804 01/27/21 1600 01/27/21 1042 WBC TH/uL -- -- 6.22 HEMOGLOBIN g/dL -- -- 14.8 HEMATOCRIT % -- -- 44 PLATELET COUNT TH/uL -- -- 152 SODIUM MEQ/L -- -- 137 POTASSIUM MEQ/L -- -- 4.3 CHLORIDE MEQ/L -- -- 106 CARBON DIOXIDE MEQ/L -- -- 22 BLOOD UREA NITROGEN mg/dL -- -- 34* GLUCOSE mg/dL -- 195* 224* CREATININE mg/dL -- -- 1.0 CALCIUM mg/dL -- -- 8.1* APTT sec 24 -- -- INR 1.4* -- -- Most Recent Result within the last 7 days Lab Units 01/27/21 1804 MICHAELA QUALITATIVE Positive* MICHAELA QUANTITATIVE PATTERN 1 Speckled MICHAELA QUANTITATIVE TITER 1 1:160 C3 COMPLEMENT mg/dL 103 C4 COMPLEMENT mg/dL 10* IMPRESSION Cervical myelopathy with prolonged manifestations of progressive weakness, l eft sided hemiparesis, gait disturbances, and left sided paresthesia. Undergoing 5 days of IV solumedrol for concerns of transverse mellitus. Patient voices sli ght improvement in strength since steroids initiated Diabetes mellitus Hypertension BAM on CPAP CAD Paroxysmal atrial fibrillation Peripheral vascular disease RECOMMENDATIONS Continue methylprednisode IV for four more days Continue to await CSF studies: Pending Rehab services: PT/OT Consult PMR Promote good sleep-wake cycle Encourage hydration and nutrition Discussed with Dr. Riley No further testing from Neurology Neurology will sign off at this time, please call if any other issues arise. Yanique Valdovinos APRN, 01/30/2021 8:53 AM pager number: [phone] or Voalte PPE Statement: Yanique Valdovinos APRN used Yellow precautions (Level 1 mask worn o harsha level 3 mask, eye protection, and gloves). Principal Problem: Spinal cord compression (HCC) Active Problems: Spinal cord mass (HCC) Essential hypertension PAF (paroxysmal atrial fibrillation) (HCC) Hemiplegia (HCC) UTI (urinary tract infection) T2DM (type 2 diabetes mellitus) (HCC) Cervical myelopathy (HCC) BAM (obstructive sleep apnea) Diabetic polyneuropathy associated with type 2 diabetes mellitus (HCC) * Ave Bryson MD - 01/29/2021 9:[address] PM CDT [facility] Patient Name: Angela Sanches Account No: [id number] Date of : 1940 Date of Admission: 01/26/2021 7:39 PM Subjective Follow up regarding Focal weakness No acute events. States that the left sided weakness is about the same and has B /L decreased sensation in LE. No fevers, chills. Discussed that we are waiting f or LP results and further recommendations. Tolerated the Methylprednisolone well . ROS Const: denies fever, chills Eye: denies visual disturbances ENT: denies PND, sore throat Resp: denies difficulty breathing Card: denies chest pain GI: denies diarrhea, constipation, nausea, vomiting All other systems/symptoms unremarkable, except those described above Objective Vital Signs: Temp: 36.6 C (97.8 F) Pulse: 98 Resp: 18 BP: 116/82 SpO2: 96 % Height: 180.3 cm (5' 11") Weight: 122.8 kg (270 lb 12.8 oz) I/O last 24 Hours: In: - Out: 750 [Urine:750] Physical Exam General: well-developed, well-nourished, and in no apparent acute distress. Head: Normocephalic and atraumatic. Eyes: Conjunctivae are normal. . PERRL. EOMI. CV: normal rate and regular rhythm. No murmurs. Pulm: Effort normal. CTAB. No wheezes/rales/rhonchi. Abdomen: Soft, non-tender to palpation. Normoactive bowel sounds. Neurological: Alert and oriented to person, place, time, and event. .Weakness mo re on the LUE and LLE 3/4. RLE $/5 Extremities: No peripheral edema. pulses 3+ and symmetric bilaterally. Derm: No rash on exposed skin Psychiatric: Normal thought content, speech, affect, and mood. I have personally reviewed the patient's vital signs, laboratory/pathology/cultu re results (as indicated), imaging studies (results were not discussed with the performing provider), current inpatient medications, [facility] [employer] consultant notes and [facility] t staff notes with pertainent findings noted within the assessment/plan. I have personally reviewed the patient's past medical, surgical, family, or social hist ory and there were no changes reported. I have personally spoken with the sandrita lyles, another physican and nursing staff regarding this patient's case. Assessment/Plan Mr. Angela Sanches is a 80 y.o. male who was admitted on 01/26/2021 with complaint of Weakness. Problems addressed with today's visit include: * Spinal cord compression (HCC) - expansile cervical lesion noted on outside imaging - Continue Dexamethasone 4mg q6h - NS and Neurology following -NS feels that presentation not typical of neoplastic process. D/W oncall neurol ogy physician, cannot r/o primary malignancy but started on Steroid on 01/28 - RPR Negative, -repeat C and T spine MRIs reviewed and showing enlargement of long segment cord expansion in the cervical and upper thoracic region -S/P LP-CSF studies as per Neuro-nclude CSF VDRL, meningitis/encephalitis panel, multiple sclerosis panel, paraneoplastic panel Serologies SSA, SSB, complement, antiphospholipid antibodies, paraneoplastic antibodies, angiotensin-converting enzyme, HTLV MICHAELA 1:160 - Spinal cord mass (HCC) See plan above Cervical myelopathy (HCC) Cervical myelopathy See plan above T2DM (type 2 diabetes mellitus) ([facility]) - Reports that he takes PO meds at home, A1c controlled - Monitor accucheks with correction factor UTI (urinary tract infection) - Cover with Rocephin - Will need to follow up cultures from OSH Hemiplegia ([facility]) Left arm/leg - Workup as above - Consult PT/OT PAF (paroxysmal atrial fibrillation) (HCC) - Hold Eliquis - Continue Toprol -start sc heparin while holding eliquis Essential hypertension - Continue Toprol for now - Hold losartan and HCTZ See my orders for additional details regarding this patients treatment plan. Expected Discharge Date The patient's predicted discharge date is 01/29/2021, but this doesn't guarantee a discharge on this date. Anticipated Discharge Destination The patient's anticipated discharge destination is SNF Medicare Certified. Room: [place] [address] Diet: Diet-Consistent Carbohydrate (75 gm) VTE Prevention: Appropriate VTE chemical treatment ordered. Appropriate VTE mec hanical treatment ordered. Code Status: DNR Frausto Catheter: Frausto catheter is currently in place. See assessment/plan above for documentatio n regarding the appropriateness of its use. Scheduled Meds: cefTRIAXone 1 g Intravenous Daily heparin (porcine) 5,000 Units Subcutaneous Q8H insulin lispro 2-7 Units Subcutaneous 4 times daily before meals and nightl y melatonin 6 mg Oral Nightly methylPREDNISolone sodium succinate 1,000 mg Intravenous Q24H JERE metoprolol succinate 300 mg Oral Daily pantoprazole 40 mg Oral Daily Continuous Infusions: PRN Meds: acetaminophen OR acetaminophen, benzocaine-menthoL, bisacodyL, dextrose 50%, docusate sodium, glucagon OR glucagon, glucose, guaiFENesin, magnesium sulf ate, metoclopramide OR metoclopramide, miconazole nitrate, ondansetron, poly ethylene glycol, potassium chloride OR potassium bicarb-citric acid OR p otassium chloride in water, prochlorperazine OR prochlorperazine OR proc hlorperazine, sodium chloride Ave Jurado MD [facility] . * Otilia Riley MD - 01/29/2021 8:33 AM CDT [facility] Neurologist: I personally interviewed and examined Mr. Angela Sanches. I discussed the finding s with Yanique Valdovinos APRN and reviewed her note. I agree with the findings with exceptions noted. The patient questions whether he might be slightly stronger today. He has notic ed that he is able to lift the left heel off the bed briefly. He attempted to s tand earlier with PT and still noticed weakness, but also thought he supported h is weight a bit better. He has not developed any new symptoms over the past 24 hours. Objective findings and Assessment/Plan are as follows: Physical Exam: Vital Signs: BP 116/82 (BP Location: Right arm, Patient position: Supine) | Pul se 98 | Temp 36.6 C (97.8 F) (Oral) | Resp 18 | Ht 1.803 m (5' 11") | Wt 122.8 kg (270 lb 12.8 oz) | SpO2 96% | BMI 37.77 kg/m GEN: alert, well appearing, and in no distress. NEURO: Mental status: The patient is awake, alert, and oriented. He does not recall some of his history and defers to his family to ask questions. His speec h is fluent without evidence of aphasia Cranial nerves: EOM's are full without nystagmus. The face is symmetric Motor: Left arm strength 3/5 proximal and 4/5 distal. Left leg 3-/3 proximal a nd 2/5 distal Reflexes: 3+ bilaterally at the knees and ankles; 2+ and symmetric in the upper extremities Coordination: Intact [id number] bilaterally, slower on the left due to weak ness. Gait: Deferred Assessment: 1) Cervical myelopathy with expansile cord lesion, longitudinally extensive with minimal contrast-enhancement. Patient with progressive weakness, primarily left hemiparesis - IV solumedrol initiated yesterday for possible transverse myelitis. Will c omplete 5 days. Patient actually feels there may be a slight improvement after just two doses. - Will continue to monitor - CSF WILLAM level pending - Continue PT and OT - Patient will need follow up MRI in one month Electronically signed by Otilia Riley 01/29/2021 11:00 PM PPE Statement: Otilia Riley MD used Yellow precautions (Level 1 mask worn ove r level 3 mask, eye protection, and gloves). NEUROLOGY PROGRESS NOTE Patient: Angela Sanches : 1940 PCP: Christophe Kennedy MD LOS: 3 CHIEF COMPLAINT Following for cervical myelopathy INTERVAL HISTORY History is provided via: chart review, patient Visitors at the bedside: none Yesterday was started on methylprednisone 1000 mg. This morning patient voices t hat he feels his left sided extremity weakness is about the same. He notes sligh t decreased sensation in his lower extremity. Some of his LP studies are still p ending. Per chart review Neurosurgery signed off yesterday with no neurosurgical recommendations at this time. MICHAELA: positive REVIEW OF SYSTEMS 5 point review of systems negative except as noted in history as above MEDICATIONS cefTRIAXone 1 g Intravenous Daily heparin (porcine) 5,000 Units Subcutaneous Q8H insulin lispro 2-7 Units Subcutaneous 4 times daily before meals and nightl y melatonin 6 mg Oral Nightly methylPREDNISolone sodium succinate 1,000 mg Intravenous Q24H JERE metoprolol succinate 300 mg Oral Daily pantoprazole 40 mg Oral Daily acetaminophen OR acetaminophen, benzocaine-menthoL, bisacodyL, dextrose 50%, docusate sodium, glucagon OR glucagon, glucose, guaiFENesin, magnesium sulf ate, metoclopramide OR metoclopramide, miconazole nitrate, ondansetron, poly ethylene glycol, potassium chloride OR potassium bicarb-citric acid OR p otassium chloride in water, prochlorperazine OR prochlorperazine OR proc hlorperazine, sodium chloride PHYSICAL EXAMINATION Patient Vitals for the past 4 hrs: BP Pulse Resp SpO2 Weight 01/29/21 0806 122/78 77 18 98 % 01/29/21 0500 122.8 kg (270 lb 12.8 oz) Systolic (24hrs), Av , Min:106 , Max:122 Diastolic (24hrs), Av, Min:61, Max:78 Ht Readings from Last 1 Encounters: 01/28/21 1.803 m (5' 11") Wt Readings from Last 1 Encounters: 01/29/21 122.8 kg (270 lb 12.8 oz) Body mass index is 37.77 kg/m. General: Mr. Sanches is a appearing male in no acute distress. Sitting up in bed, eati ng breakfast Head: Oropharynx clear. Head normocephalic, atraumatic. Cardiac: Regular rate and rhythm. Lungs: Non-labored. Extremities: No cyanosis or edema. No clear skin lesions noted. Mental status, cognition, and cortical functions: Mental status: alert and orientated to person, place, time and situation. Has intact attention and concentration. Is able to give a general history. Language is fluent with intact comprehension and repetition. Speech is clear and without dysarthria. Cranial nerves: Pupils are 3 mm equal, round, and reactive to light. Visual michelle: to finger wiggling Extraocular eye movements are intact in all directions. No nystagmus on eye movements. Facial sensation is intact to light touch throughout. Muscles of facial expression are symmetric at rest and with activation. Hearing is intact to conversation Palate elevates symmetrically. Tongue protrudes in the midline and has full excursions. Motor: Muscle bulk is normal throughout. Muscle tone is normal throughout. Strength on confrontational testing: Left upper extremity: deltoid: 3-/5, triceps; 3/5, bicep: 3/5 Lower extremity: proximal/distbal: 3-/5 drifts to gravity Right upper and lower extremity proximal and distal strength 4-/5 Gait and coordination: Gait: deferred at this time. Rapid alternating movements in the left upper extremities (finger tapping) ar e reduced. [id number] without dystaxia or dysmetria Reflexes (right/left): Biceps: 2/2 Brachioradialis: 2/2 Patellae: 3/3 Plantar: right: upgoing, left: downgoing Sensation: Light touch sensation is decreased throughout left lower extremity Pain (pinprick) sensation: decreased to throughout left lower extremity. STUDIES REVIEWED IR Lumbar puncture w fluoro Result Date: 01/27/2021 Successful fluoroscopically-guided lumbar puncture without complication. MRI Cervical Spine w wo contrast Result Date: 01/28/2021 Long segment cord expansion extending from the cervical spinal cord into the upp er thoracic spinal cord with questionable subtle enhancement. This could be due to intramedullary neoplasm such as spinal ependymoma or spinal astrocytoma. Othe r differential considerations would include inflammatory process such as transve rse myelitis, neuromyelitis optica, or neurosarcoidosis. MRI Head w wo contrast Result Date: 01/28/2021 1. No acute infarct or hemorrhage. 2. No brain mass or abnormal enhancement. 3. Mild subcortical and deep periventricular white matter FLAIR hyperintensities, a nonspecific finding, most commonly seen with chronic small vessel ischemic dise ase. 4. Please see separately dictated cervical and thoracic spine MRI for spina l cord findings. MRI Thoracic Spine w wo contrast Result Date: 01/28/2021 Long segment cord expansion extending from the cervical spinal cord into the upp er thoracic spinal cord with questionable subtle enhancement. This could be due to intramedullary neoplasm such as spinal ependymoma or spinal astrocytoma. Othe r differential considerations would include inflammatory process such as transve rse myelitis, neuromyelitis optica, or neurosarcoidosis. LABS REVIEWED Most Recent Result within the last 7 days Lab Units 01/27/21 1804 01/27/21 1600 01/27/21 1042 01/23/21 0533 WBC TH/uL -- -- 6.22 -- HEMOGLOBIN g/dL -- -- 14.8 -- HEMATOCRIT % -- -- 44 -- PLATELET COUNT TH/uL -- -- 152 -- SODIUM MEQ/L -- -- 137 -- POTASSIUM MEQ/L -- -- 4.3 -- CHLORIDE MEQ/L -- -- 106 -- CARBON DIOXIDE MEQ/L -- -- 22 -- BLOOD UREA NITROGEN mg/dL -- -- 34* -- GLUCOSE mg/dL -- 195* 224* -- CREATININE mg/dL -- -- 1.0 -- CALCIUM mg/dL -- -- 8.1* -- APTT sec 24 -- -- -- INR 1.4* -- -- -- HEMOGLOBIN A1C % -- -- -- 6.4* Most Recent Result within the last 7 days Lab Units 01/27/21 1804 MICHAELA QUALITATIVE Positive* MICHAELA QUANTITATIVE PATTERN 1 Speckled MICHAELA QUANTITATIVE TITER 1 1:160 C3 COMPLEMENT mg/dL 103 C4 COMPLEMENT mg/dL 10* IMPRESSION Cervical myelopathy with manifestations progressive weakness, left sided hem iparesis, gait disturbances, and paraesthesia. Further consideration for differe ntials include maligancy, transverse myelitis, or MS. Diabetes mellitus with peripheral polyneuropathy Hypertension BAM on CPAP CAD Paroxysmal atrial fibrillation Peripheral vascular disease RECOMMENDATIONS Continue methylprednisode 1000 mg daily Awaiting CSF studies: Angiotensin, SSA/SSB antibody, HTLV antibody, MS panel, NMO Optimize PT/OT efforts Consult PMR Up to chair when able Promote good-sleep wake hygiene Encourage hydration and nutrition Dr. Riley will follow with further recommendations Yanique Valdovinos APRN, 01/29/2021 8:33 AM pager number: [phone] or Voalte @PPE@ Principal Problem: Spinal cord compression (HCC) Active Problems: Spinal cord mass (HCC) Essential hypertension PAF (paroxysmal atrial fibrillation) (HCC) Hemiplegia (HCC) UTI (urinary tract infection) T2DM (type 2 diabetes mellitus) (HCC) Cervical myelopathy (HCC) BAM (obstructive sleep apnea) Diabetic polyneuropathy associated with type 2 diabetes mellitus (HCC) * Ayana Green PA - 01/28/2021 1:13 PM CDT Neurosurgery Progress Note Patient Name: Angela Sanches Admission Date: 01/26/2021 7:39 PM Date of Service: 01/28/2021 DATE OF SURGERY: none CHIEF COMPLAINT: "I'm ok" HOSPITAL COURSE: 80 y/o male with months of progressive left sided weakness star ting as early as May 2020 who was transferred to [facility] on 01/26/21 for further evaluation of findings of cord expansion from cervical to mid thoracic spinal co rd. SUBJECTIVE: SUMMARY OF EVENTS SINCE LAST SEEN: Underwent successful LP and contrasted MRIs o f head, cervical and thoracic spines. Denies post LP headache. Denies new numbne ss and tingling. Continues to have a sensation of "holding bulbs" in his hands w hen he is actually holding nothing. Denies new weakness. 10 points reviewed and found positive except as noted in the HPI, or below: Cons t: Negative Eyes: Negative ENMT: Negative Pulm: Negative CV: Negative GI: Negative /PUMP TESTER: Negative Neuro: Negative Psych: Negative MS: Negative Skin: Negative OBJECTIVE: Vitals: BP 116/75 (BP Location: Right arm, Patient position: Supine) | Pulse (!) 106 | Temp 36.3 C (97.4 F) (Oral) | Resp 18 | Wt 120 kg (264 lb 9.6 oz) | SpO2 96% T-High: Temp (24hrs), Av.4 C (97.6 F), Min:36.3 C (97.4 F), Max:36.6 C (97 .8 F) Fluid Balance: No intake/output data recorded. 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 Contrasted MRI brain was relatively unremarkable, some small vessel disease changes. MRI of cervical and thoracic spine showed long segment cord expansion from cervical into upper t horacic with questionable subtle enchancement. Reviewed with Dr. Roper; we do not believe this is a spinal cord tumor given the timing and the lack of obvious enhancement on imaging. Other differentials f or involvement of basically the entire thickness of the cord could include trans verse myelitis, neuromyelitis optica, MS, or cross sectional ischemia. We believ e ischemia does not fit the clinical picture given the patients timeline of symp toms. He does not findings suggestive of MS on MRI brain. LP was performed yeste rday however most of the studies have not yet returned. Another consideration co uld be ALS which could be evaluated with EMG as outpatient. He has not had any change in status with steroids which were started prior to ar rival here at [facility]. We will wean them off over the next few days unless neurology has an objection. We will continue to follow this patients chart peripherally. He does not require neurosurgical follow up. PLAN: - no neurosurgical intervention - follow CSF studies - consider presumptive treatment for myelitis with IVIG, but will defer this to neurology - taper decadron off over [address] Roper [facility] Problem List: Principal Problem: Spinal cord compression (HCC) Active Problems: Spinal cord mass (HCC) Essential hypertension PAF (paroxysmal atrial fibrillation) (HCC) Hemiplegia (HCC) UTI (urinary tract infection) T2DM (type 2 diabetes mellitus) (HCC) Cervical myelopathy (HCC) BAM (obstructive sleep apnea) Diabetic polyneuropathy associated with type 2 diabetes mellitus (HCC) Ayana Green PA-C [facility] Neurosurgery [facility] [address] Available via Voalte After 5 pm and on weekends please contact [phone] for appropriate provider PPE Statement: JAKUB English used Yellow precautions (Level 1 mask worn o harsha level 3 mask, eye protection, and gloves). * Marie Rodriguez MD - 01/28/2021 9:26 AM CDT NEUROLOGY PROGRESS NOTE Patient: Angela Sanches : 1940 PCP: Christophe Kennedy MD LOS: 2 CHIEF COMPLAINT Follow up cervical myelopathy INTERVAL HISTORY History is provided via: Patient, nursing, chart review Visitors at the bedside: None Overall he feels like his examination is stable and unchanged. He endorses left -sided weakness, denies pain. He does have urinary incontinence. He describes that all of his symptoms have spared the face. He denies any bulbar dysfunction . No headache post lumbar puncture. Reviewed with the patient that we are mumtaz donovan final read on MRI studies were completed yesterday. Additionally several s nancy fluid results are in progress, reviewed labs that are resulted currently. He believes he worked with occupational therapy today and physical therapy yeste rday. REVIEW OF SYSTEMS 5 point review of systems negative except as noted in history as above MEDICATIONS cefTRIAXone 1 g Intravenous Daily dexamethaSONE 4 mg Intravenous Q6H JERE insulin lispro 2-7 Units Subcutaneous 4 times daily before meals and nightl y metoprolol succinate 300 mg Oral Daily acetaminophen OR acetaminophen, benzocaine-menthoL, bisacodyL, dextrose 50%, docusate sodium, glucagon OR glucagon, glucose, guaiFENesin, magnesium sulf ate, melatonin, metoclopramide OR metoclopramide, miconazole nitrate, ondans etron, polyethylene glycol, potassium chloride OR potassium bicarb-citric ac id OR potassium chloride in water, prochlorperazine OR prochlorperazine OR prochlorperazine, sodium chloride PHYSICAL EXAMINATION Patient Vitals for the past 4 hrs: BP Temp Temp src Pulse Resp SpO2 Weight 01/28/21 0730 119/75 36.3 C (97.4 F) Oral 75 20 100 % 01/28/21 0600 120 kg (264 lb 9.6 oz) Systolic (24hrs), Av , Min:98 , Max:119 Diastolic (24hrs), Av, Min:67, Max:99 Ht Readings from Last 1 Encounters: No data found for Ht Wt Readings from Last 1 Encounters: 01/28/21 120 kg (264 lb 9.6 oz) There is no height or weight on file to calculate BMI. General: Mr. Sanches is a generally healthy appearing male in no acute distress; he is right-handed. Head: Oropharynx clear. Head normocephalic, atraumatic. Cardiac: Regular rate and rhythm. Lungs: Non-labored. Extremities: No cyanosis, there is some edema in the lower extremities. Mental status, cognition, and cortical functions: Mental status: Awake alert and oriented to person place and location. Genera l fund of knowledge regarding left-sided symptomatology is intact. Attention an d concentration are intact. Language is fluent with intact comprehension. Speech is clear and without dysarthria. Cranial nerves: Pupils are equal, round, and reactive to light. Visual michelle are full. Extraocular eye movements are intact in all directions. No nystagmus on eye movements. Facial sensation is intact to light touch throughout. Muscles of facial expression are symmetric at rest and with activation. Hearing to conversational tone, reduced to finger rubbing bilaterally. Palate elevates symmetrically. Tongue protrudes in the midline and has full excursions. [place] is equal Shoulder shrug, appears symmetric (question mildly reduced on the left compar ed to the right) Motor: Muscle bulk is normal throughout. Muscle tone Strength on confrontational testing is 5-/5 in proximal and distal muscle maritza ups in the right upper and lower extremity throughout. 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 The left lower extr emity is 3/5 proximal and distal. Gait and coordination: Gait is deferred. He feels like there is incoordination in the left hand, he has difficulty wit h fine motor movements. Reflexes (right/left): Biceps: 2/2 Brachioradialis: 2/2 Patellae: 3/3 Achilles: absent/absent Plantar: upgoing bilaterally. Sensation: Light touch is symmetric. Decreased pinprick, T3 sensory level anteriorly noted yesterday. Additionall y decreased pinprick to the mid lower legs bilaterally. STUDIES REVIEWED MRI brain, cervical spine, thoracic reviewed. Formal report pending. LABS REVIEWED Most Recent Result within the last 7 days Lab Units 01/27/21 1600 01/27/21 1042 01/23/21 0533 WBC TH/uL -- 6.22 -- HEMOGLOBIN g/dL -- 14.8 -- HEMATOCRIT % -- 44 -- PLATELET COUNT TH/uL -- 152 -- SODIUM MEQ/L -- 137 -- POTASSIUM MEQ/L -- 4.3 -- CHLORIDE MEQ/L -- 106 -- CARBON DIOXIDE MEQ/L -- 22 -- BLOOD UREA NITROGEN mg/dL -- 34* -- GLUCOSE mg/dL 195* 224* -- CREATININE mg/dL -- 1.0 -- CALCIUM mg/dL -- 8.1* -- HEMOGLOBIN A1C % -- -- 6.4* Most Recent Result within the last 7 days Lab Units 01/27/21 1804 C3 COMPLEMENT mg/dL 103 C4 COMPLEMENT mg/dL 10* CSF basic studies: Lab Results Component Value Date/Time CSFCLARITY Clear 01/27/2021 04:00 PM CSFCOLOR Colorless 01/27/2021 04:00 PM XANTHOCHROM Absent 01/27/2021 04:00 PM CSFWBC 8 (H) 01/27/2021 04:00 PM RBCCSF 0 01/27/2021 04:00 PM CSFTUBE 3 01/27/2021 04:00 PM CSFNEUTRO 1 01/27/2021 04:00 PM LYMPHSCSF 84 (H) 01/27/2021 04:00 PM MONOMACCSF 15 01/27/2021 04:00 PM CSFCELLCT 100 01/27/2021 04:00 PM GRAMSTAIN No white blood cells seen 01/27/2021 04:00 PM GRAMSTAIN No organisms seen 01/27/2021 04:00 PM CR No growth at less than 24 hours 01/27/2021 04:00 PM PROTEINCSF 246 (H) 01/27/2021 04:00 PM GLUCCSF 126 (H) 01/27/2021 04:00 PM CSF PCRs: Lab Results Component Value Date/Time ECOLIK1 Not Detected 01/27/2021 04:00 PM HAEMOFLU Not Detected 01/27/2021 04:00 PM LISTERIAMONC Not Detected 01/27/2021 04:00 PM NEISSMENING Not Detected 01/27/2021 04:00 PM STREPTAGALA Not Detected 01/27/2021 04:00 PM STREPTPNEUMO Not Detected 01/27/2021 04:00 PM CYTOMEGALO Not Detected 01/27/2021 04:00 PM ENTEROVIRUS Not Detected 01/27/2021 04:00 PM HERPESSIMPL1 Not Detected 01/27/2021 04:00 PM HERPESSIMPL2 Not Detected 01/27/2021 04:00 PM HUMANPARECHO Not Detected 01/27/2021 04:00 PM VARICELLAZOS Not Detected 01/27/2021 04:00 PM CRYPTNEOGAT Not Detected 01/27/2021 04:00 PM IMPRESSION Cervical myelopathy with gait instability, progressive weakness (predominant ly left hemiparesis), sensory level with cervical lesion noted on outside imagin g. Formal report pending on MRI brain, cervical spine, thoracic spine completed this hospitalization. Diabetes mellitus with neuropathy Hypertension Obstructive sleep apnea, treated Coronary artery disease Peripheral vascular disease RECOMMENDATIONS Await MRI formal reports Spinal fluid testing in progress, no sign of infectious process. Multiple sc lerosis panel, paraneoplastic panel pending, flow, cytology. Several serologies pending. I contacted labs; the studies have been drawn how ever several are send out. Continue physical therapy and occupational therapy Staff, Dr. Rodriguez to follow. Gertrude Adkins NP 01/28/2021 9:26 AM pager number: [phone] Voalte PPE Statement: Gertrude Adkins RN RESIDENTIAL PEST CONTROL TECHNICIAN-C used Yellow precautions (Level 3 mask, eye protection, and gloves). Principal Problem: Spinal cord compression (HCC) Active Problems: Spinal cord mass (HCC) Essential hypertension PAF (paroxysmal atrial fibrillation) (HCC) Hemiplegia (HCC) UTI (urinary tract infection) T2DM (type 2 diabetes mellitus) (HCC) Cervical myelopathy (HCC) BAM (obstructive sleep apnea) Diabetic polyneuropathy associated with type 2 diabetes mellitus (HCC) Addendum: MRI results reviewed with Neurosurgery TOMMY and per attending neurosurgeon, uncle ludmila if imaging is consistent with a tumor (they think less likely as the cause). Discussed with Attending Neurologist. Awaiting several serologies and spinal fluid testing at this time. We will plan to proceed with methylprednisolone 1000 mg IV daily x5 doses. Added Protonix 40 mg daily while on high-dose steroids Scheduled melatonin 6 mg at bedtime while on steroids Continue physical therapy efforts Await further testing as above. Discussed with the patient and his 2 sons at the bedside, that additional studie s are needed to further evaluate and determine diagnosis. They verbalized unders tanding and agreed with the plan. Staff, Dr. Rodriguez .Gertrude Adkins, 01/28/2021 4:39 PM [facility] Neurologist: I personally interviewed and examined Mr. Angela Sanches. I discussed the finding s with nurse practitioner and reviewed the nurse practitioners note. I agree the findings with exceptions noted. This is a late entry, patient was seen this morning. He feels that he is about the same. He also reports that he is forgetful. No pain. Objective findings and Assessment/Plan are as follows: Physical Exam: Vital Signs: BP 108/70 (BP Location: Right arm, Patient position: Supine) | Pul se 88 | Temp 36.3 C (97.3 F) (Oral) | Resp 20 | Ht 1.803 m (5' 11") | Wt 120 kg (264 lb 9.6 oz) | SpO2 99% | BMI 36.90 kg/m GEN: No acute distress NEURO: Awake and alert, speech is fluent Motor: Left upper extremity 3/5 proximal, 4/5 distally, left lower extremity 2/5 . Right-sided strength testing 5 -/5 DTRs: Hyperreflexic knees bilaterally with upgoing toes bilaterally CSF WBC 8, RBC 0, glucose 126, protein 246, meningitis/encephalitis panel negati ve C3 normal, C4 reduced at 10, PT 17, INR 1.4, anticardiolipin IgM elevated 21, Be ta-2 glycoprotein antibodies normal, MICHAELA positive speckled 1: 160, I personally reviewed epeat MRI performed here. The MRI cervical spine has a ve ry long segment expansile cord lesion from the upper cervical to upper thoracic with some subtle enhancement. MRI head with nonspecific mild white matter walker es to my review. MRI thoracic spine with the long segment lesion noted on cervi skye spine Assessment: Cervical myelopathy with expansile cord lesion, longitudinally extensive with minimal contrast-enhancement. Patient with progressive weakness, more left hem iparesis, gait disturbance, spasticity and sensory level Diabetes mellitus with peripheral polyneuropathy Hypertension BAM on CPAP CAD/PAF Memory impairment/forgetfulness Plan: Await CSF particularly cytology and flow cytometry Concerning for malignancy with patient's age and characteristics of lesion Await further serologies IV methylprednisolone 1000 mg daily for 5 days PT/OT Discussed with patient Dr. Riley begins coverage 01/29/2021 PPE Statement: Marie Rodriguez MD used Yellow precautions (Level 1 mask wo rn over level 3 mask, and gloves). Electronically signed by Marie Rodriguez 01/28/2021 4:44 PM * Ronda Regan MD - 01/28/2021 8:51 AM CDT [facility] Patient Name: Angela Sanches Account No: [id number] Date of : 1940 Date of Admission: 01/26/2021 7:39 PM Subjective Follow up regarding progressive left-sided weakness Patient is A&Ox4. GARCIA. +Left sided weakness. Denies pain. VSS, on RA. Frausto in place. MRI head, C-spine, and T-spine completed, awaiting results LP this AM No acute neuro events/no new symptoms Review of Systems Constitutional: Positive for weight loss. HENT: Negative. Eyes: Negative. Respiratory: Negative. Cardiovascular: Negative. Gastrointestinal: Negative. Genitourinary: Urinary retention Musculoskeletal: Negative. Skin: Negative. Neurological: Positive for weakness (left arm and leg ). Endo/Heme/Allergies: Negative. Objective Vital Signs: Temp: 36.3 C (97.4 F) Pulse: 75 Resp: 20 BP: 119/75 SpO2: 100 % Weight: 120 kg (264 lb 9.6 oz) No intake/output data recorded. Physical Exam Constitutional: Appearance: Normal appearance. He is obese. HENT: Head: Normocephalic and atraumatic. Mouth/Throat: Mouth: Mucous membranes are moist. Eyes: Extraocular Movements: Extraocular movements intact. Conjunctiva/sclera: Conjunctivae normal. Pupils: Pupils are equal, round, and reactive to light. Cardiovascular: Rate and Rhythm: Normal rate and regular rhythm. Pulmonary: Effort: Pulmonary effort is normal. Breath sounds: Normal breath sounds. No rales. Abdominal: General: Bowel sounds are normal. Palpations: Abdomen is soft. Musculoskeletal: Cervical back: No rigidity. Right lower leg: No edema. Left lower leg: No edema. Skin: General: Skin is warm and dry. Capillary Refill: Capillary refill takes less than 2 seconds. Neurological: Mental Status: He is alert and oriented to person, place, and time. Sensory: No sensory deficit. Motor: Weakness (LUE 4/5, LLE 3+/5 ) present. Psychiatric: Mood and Affect: Mood normal. Behavior: Behavior normal. I have personally reviewed the patient's vital signs, laboratory/pathology/cultu re results (as indicated), current inpatient medications, oracle drm consultant notes and s upport staff notes with pertainent findings noted within the assessment/plan. Assessment/Plan Mr. Angela Sanches is a 80 y.o. male who was admitted on 01/26/2021 with complaint of LUE/LLE weakness. Pt reports symptoms started at least 4-5 months ago. His ex- thinks about May 2020. Started with left leg weakness. He previou sly ambulated independently and had to start using a cane. Progressed to a walk er, and now falling even with walker. More recently has developed left arm weak ness as well. Intermittently gets numbness in the arm as well. No pain. He th inks he has lost about 15 pounds in the past week (just since in the hospital). He had evaluation at [facility] in [place] (pertinent info below) and recomm ended transfer for neurosurgical evaluation. He has also struggled with urinary retention.Negative COVID test 01/22/21, MICHAELA, RPR Negative, UA: > 100 WBC, 6-10 RBC. MRI Brain: No acute pathology. Mild small vessel ischemic disease. Mild cerebral and cerebellar volume loss. MRI C&Tspine: Extensive edema and expansion of the spinal cord extending from C3-T5. Differential listed as transverse myelitis, neuromyelitis optica, spinal cord neoplasm, or less likely spinal dural AV fistula. MRI LSpine: Subarticular recess narrowing is severe on the left and moderate rig ht L4-5. Neural foraminal narrowing bilaterally. Evaluated by Neurosurgery: Feel that presentation not typical of neoplastic proc ess. Recommending MRI cervical and thoracic spine w/wo, MRI Brain, LP, Neurology consult appreciated Problems addressed with today's visit include: * Spinal cord compression (HCC) - expansile cervical lesion noted on outside imaging - Continue Dexamethasone 4mg q6h - NS and Neurology following -NS feels that presentation not typical of neoplastic process - MICHAELA, RPR Negative, -Await repeat C and T spine MRIs with contrast results -S/P LP-CSF studies as per Neuro-nclude CSF VDRL, meningitis/encephalitis panel, multiple sclerosis panel, paraneoplastic panel Serologies SSA, SSB, complement, antiphospholipid antibodies, paraneoplastic antibodies, angiotensin-converting enzyme, HTLV Spinal cord mass (HCC) See plan above Cervical myelopathy (HCC) Cervical myelopathy See plan above T2DM (type 2 diabetes mellitus) (HCC) - Reports that he takes PO meds at home, A1c controlled - Monitor accucheks with correction factor UTI (urinary tract infection) - Cover with Rocephin - Will need to follow up cultures from OSH Hemiplegia (HCC) Left arm/leg - Workup as above - Consult PT/OT PAF (paroxysmal atrial fibrillation) (HCC) - Hold Eliquis - Continue Toprol -start sc heparin while holding eliquis Essential hypertension - Continue Toprol for now - Hold losartan and HCTZ See my orders for additional details regarding this patients treatment plan. Expected Discharge Date The patient's predicted discharge date is 01/29/2021, but this doesn't guarantee a discharge on this date. Anticipated Discharge Destination The patient's anticipated discharge destination [facility] Medicare [facility] Diet: Diet-Consistent Carbohydrate (75 gm) VTE Prevention: Appropriate VTE mechanical treatment ordered. Code Status: DNR Frausto Catheter: Frausto catheter is currently in place. See assessment/plan above for documentatio n regarding the appropriateness of its use. Scheduled Meds: cefTRIAXone 1 g Intravenous Daily dexamethaSONE 4 mg Intravenous Q6H JERE insulin lispro 2-7 Units Subcutaneous 4 times daily before meals and nightl y losartan 50 mg Oral Daily metoprolol succinate 300 mg Oral Daily Continuous Infusions: PRN Meds: acetaminophen OR acetaminophen, benzocaine-menthoL, bisacodyL, dextrose 50%, docusate sodium, glucagon OR glucagon, glucose, guaiFENesin, magnesium sulf ate, melatonin, metoclopramide OR metoclopramide, miconazole nitrate, ondans etron, polyethylene glycol, potassium chloride OR potassium bicarb-citric ac id OR potassium chloride in water, prochlorperazine OR prochlorperazine OR prochlorperazine, sodium chloride Ronda Regan MD [facility] . * Ariadne Guzman MD - 01/27/2021 1:[address] PM [address] [facility] Patient Name: Angela Sanches Account No: [id number] Date of : 1940 Date of Admission: 01/26/2021 7:39 PM Subjective Follow up regarding progressive left-sided weakness Patient is pleasant, seen resting in bed this morning without acute complaints. Evaluated by Neurosurgery: Feel that presentation not typical of neoplastic proc ess. Recommending MRI cervical and thoracic spine w/wo, MRI Brain, LP, Neurology consult Review of Systems Constitutional: Positive for weight loss. HENT: Negative. Eyes: Negative. Respiratory: Negative. Cardiovascular: Negative. Gastrointestinal: Negative. Genitourinary: Urinary retention Musculoskeletal: Negative. Skin: Negative. Neurological: Positive for weakness (left arm and leg ). Endo/Heme/Allergies: Negative. Objective Vital Signs: Temp: 36.5 C (97.7 F) Pulse: 95 Resp: 16 BP: 119/57 SpO2: 97 % Weight: 120.4 kg (265 lb 8 oz) I/O last 24 Hours: In: - Out: 725 [Urine:725] Physical Exam Constitutional: Appearance: Normal appearance. He is obese. HENT: Head: Normocephalic and atraumatic. Mouth/Throat: Mouth: Mucous membranes are moist. Eyes: Extraocular Movements: Extraocular movements intact. Conjunctiva/sclera: Conjunctivae normal. Pupils: Pupils are equal, round, and reactive to light. Cardiovascular: Rate and Rhythm: Normal rate and regular rhythm. Pulmonary: Effort: Pulmonary effort is normal. Breath sounds: Normal breath sounds. No rales. Abdominal: General: Bowel sounds are normal. Palpations: Abdomen is soft. Musculoskeletal: Cervical back: No rigidity. Right lower leg: No edema. Left lower leg: No edema. Skin: General: Skin is warm and dry. Capillary Refill: Capillary refill takes less than 2 seconds. Neurological: Mental Status: He is alert and oriented to person, place, and time. Sensory: No sensory deficit. Motor: Weakness (LUE 4/5, LLE 3+/5 ) present. Psychiatric: Mood and Affect: Mood normal. Behavior: Behavior normal. I have personally reviewed the patient's vital signs, laboratory/pathology/cultu re results (as indicated), current inpatient medications, oracle drm consultant notes and s upport staff notes with pertainent findings noted within the assessment/plan. Assessment/Plan Mr. Angela Sanches is a 80 y.o. male who was admitted on 01/26/2021 with complaint of LUE/LLE weakness. Pt reports symptoms started at least 4-5 months ago. His ex- thinks about May 2020. Started with left leg weakness. He previou sly ambulated independently and had to start using a cane. Progressed to a walk er, and now falling even with walker. More recently has developed left arm weak ness as well. Intermittently gets numbness in the arm as well. No pain. He th inks he has lost about 15 pounds in the past week (just since in the hospital). He had evaluation at [facility] in [place] (pertinent info below) and recomm ended transfer for neurosurgical evaluation. He has also struggled with urinary retention. Negative COVID test 01/22/21 Hgb 12.6 Plt 146 CMP: Co2 19, BUN 21, Cr 1.0, Albumin 2.9, otherwise WNL B12 569 A1c 6.4 MICHAELA Negative RPR Negative UA: > 100 WBC, 6-10 RBC MRI Brain: No acute pathology. Mild small vessel ischemic disease. Mild cerebr al and cerebellar volume loss. MRI C&Tspine: Extensive edema and expansion of the spinal cord extending from C3-T5. Differential listed as transverse myelitis, neuromyelitis optica, spinal cord neoplasm, or less likely spinal dural AV fistula. MRI LSpine: Subarticular recess narrowing is severe on the left and moderate rig ht L4-5. Neural foraminal narrowing bilaterally. Evaluated by Neurosurgery: Feel that presentation not typical of neoplastic proc ess. Recommending MRI cervical and thoracic spine w/wo, MRI Brain, LP, Neurology consult Problems addressed with today's visit include: * Spinal cord compression (HCC) - Continue Dexamethasone 4mg q6h - NS consulted Spinal cord mass (HCC) - NS consulted - NPO t in case procedures needed T2DM (type 2 diabetes mellitus) (HCC) - Reports that he takes PO meds at home, A1c controlled - Monitor accucheks with correction factor UTI (urinary tract infection) - Cover with Rocephin - Will need to follow up cultures from OSH Hemiplegia (HCC) Left arm/leg - Workup as above - Consult PT/OT PAF (paroxysmal atrial fibrillation) (HCC) - Hold Eliquis - Continue Toprol Essential hypertension - Continue Losartan & Toprol for now - Hold HCTZ and resume when PO intake advanced See my orders for additional details regarding this patients treatment plan. Expected Discharge Date The patient's predicted discharge date is 01/29/2021, but this doesn't guarantee a discharge on this date. Anticipated Discharge Destination The patient's anticipated discharge destination is SNF Medicare Certified. [facility] Diet: Diet-Consistent Carbohydrate (75 gm) VTE Prevention: Appropriate VTE mechanical treatment ordered. Code Status: DNR Frausto Catheter: Frausto catheter is currently in place. See assessment/plan above for documentatio n regarding the appropriateness of its use. Scheduled Meds: cefTRIAXone 1 g Intravenous Daily dexamethaSONE 4 mg Intravenous Q6H JERE insulin lispro 2-7 Units Subcutaneous 4 times daily before meals and nightl y LORazepam 0.5-1 mg Intravenous Once losartan 50 mg Oral Daily metoprolol succinate 300 mg Oral Daily Continuous Infusions: PRN Meds: acetaminophen OR acetaminophen, benzocaine-menthoL, bisacodyL, dextrose 50%, docusate sodium, glucagon OR glucagon, glucose, guaiFENesin, magnesium sulf ate, melatonin, metoclopramide OR metoclopramide, miconazole nitrate, ondans etron, polyethylene glycol, potassium chloride OR potassium bicarb-citric ac id OR potassium chloride in water, prochlorperazine OR prochlorperazine OR prochlorperazine, sodium chloride Ariadne Guzman MD [facility] . documented in this encounter H&P Notes * Jalen Gracie, DO - 01/26/2021 9:54 PM CDT [facility] Patient Name: Angela Sanches Account No: [id number] Date of : 1940 Date of Admission: 01/26/2021 7:39 PM Primary Care Physician: Christophe Kennedy MD; Subjective Chief Complaint: left arm/leg weakness History of Present illness: Mr. Angela Sanches is a 80 y.o. male who was admitted on 01/26/2021 with complaint of LUE/LLE weakness. Pt reports symptoms started at least 4-5 months ago. His ex- thinks about May 2020. Started with left leg weakness. He previou sly ambulated independently and had to start using a cane. Progressed to a walk er, and now falling even with walker. More recently has developed left arm weak ness as well. Intermittently gets numbness in the arm as well. No pain. He th inks he has lost about 15 pounds in the past week (just since in the hospital). He had evaluation at [facility] in [place] (pertinent info below) and recomm ended transfer for neurosurgical evaluation. He has also struggled with urinary retention. Negative COVID test 01/22/21 Hgb 12.6 Plt 146 CMP: Co2 19, BUN 21, Cr 1.0, Albumin 2.9, otherwise WNL B12 569 A1c 6.4 MICHAELA Negative RPR Negative UA: > 100 WBC, 6-10 RBC MRI Brain: No acute pathology. Mild small vessel ischemic disease. Mild cerebr al and cerebellar volume loss. MRI C&Tspine: Extensive edema and expansion of the spinal cord extending from C3-T5. Differential listed as transverse myelitis, neuromyelitis optica, spinal cord neoplasm, or less likely spinal dural AV fistula. MRI LSpine: Subarticular recess narrowing is severe on the left and moderate rig ht L4-5. Neural foraminal narrowing bilaterally. Review of Systems Constitutional: Positive for malaise/fatigue. Negative for chills and fever. HENT: Negative for congestion and sinus pain. Eyes: Negative for blurred vision. Respiratory: Negative for cough and shortness of breath. Cardiovascular: Positive for leg swelling. Negative for chest pain. Gastrointestinal: Negative for nausea and vomiting. Genitourinary: + Retention Musculoskeletal: Positive for falls. Negative for neck pain. Skin: Negative for rash. Neurological: Positive for tingling, sensory change, focal weakness and weakness . Negative for dizziness. Medical History Diagnosis Date CAD (coronary artery disease) Cognitive impairment Possible dementia, self reported Essential hypertension GERD (gastroesophageal reflux disease) Hyperlipidemia BAM on CPAP PAF (paroxysmal atrial fibrillation) (HCC) PUD (peptic ulcer disease) PVD (peripheral vascular disease) (HCC) T2DM (type 2 diabetes mellitus) (HCC) Urinary retention Surgical History Procedure Laterality Date ANKLE SURGERY CATARACT EXTRACTION, BILATERAL NASAL SEPTUM SURGERY NECK SURGERY Cyst removal TONSILLECTOMY TRANSURETHRAL RESECTION OF PROSTATE WISDOM TOOTH EXTRACTION Family History Problem Relation Age of Onset Cancer Mother Social History Tobacco Use Smoking status: Former Smoker Quit date: 01/26/1997 Years since quittin.0 Smokeless tobacco: Never Used Substance Use Topics Alcohol use: Not Currently Drug use: None Allergies No Known Allergies Prior to Admission Medications Medication Sig apixaban (ELIQUIS) 5 mg tablet Take 5 mg by mouth 2 (two) times a day. calcium/magnesium/vitamin D3 (SKYE-MAG COMPLEX ORAL) Take by mouth. ferrous sulfate 325 (65 FE) MG tablet Take 325 mg by mouth daily with breakfast. hydroCHLOROthiazide (HYDRODIURIL) 25 MG tablet Take 25 mg by mouth daily. losartan (COZAAR) 50 MG tablet Take 50 mg by mouth daily. metoprolol succinate (TOPROL-XL) 200 MG 24 hr tablet Take 300 mg by mouth daily. mirabegron (MYRBETRIQ) 50 mg Tb24 tablet Take by mouth daily. multivit with iron,hematinic (SUPER B-COMPLEX ORAL) Take by mouth. omega 3 fish oil (SEA OMEGA) DHA 200 mg-EPA 300 mg (1,000 mg) capsule Take by [facility] 2 (two) times a day. potassium chloride (KLOR-CON) 10 MEQ CR tablet Take 10 mEq by mouth daily. solifenacin (VESICARE) 10 MG tablet Take 10 mg by mouth daily. trospium (SANCTURA) 20 mg tablet Take 20 mg by mouth 2 (two) times a day. Objective Triage Vital Signs: Temp: 36.3 C (97.4 F) Pulse: 72 Resp: 20 BP: 130/87 SpO2 : 98 % Physical Exam Vitals reviewed. Constitutional: General: He is not in acute distress. Appearance: He is well-developed. HENT: Head: Normocephalic and atraumatic. Eyes: General: No scleral icterus. Pupils: Pupils are equal, round, and reactive to light. Neck: Vascular: No JVD. Cardiovascular: Rate and Rhythm: Normal rate and regular rhythm. Heart sounds: No murmur heard. Pulmonary: Effort: Pulmonary effort is normal. Breath sounds: Normal breath sounds. No wheezing. Abdominal: General: Bowel sounds are normal. There is no distension. Palpations: Abdomen is soft. Tenderness: There is no abdominal tenderness. Musculoskeletal: General: No deformity. Cervical back: Normal range of motion and neck supple. Skin: General: Skin is warm and dry. Findings: No erythema. Neurological: Mental Status: He is alert and oriented to person, place, and time. 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 Left leg dorsi flexion & hip flexion decreased compared to right. Psychiatric: Behavior: Behavior normal. No ECG needed/obtained. I have personally reviewed the patient's vital signs, laboratory/pathology/cultu re results (as indicated), imaging studies (results were not discussed with the performing provider), current inpatient medications, legal support analyst notes, prior admission/outpatient notes and outside medical records with pertainent findings noted within the assessment/plan. I have personally reviewed and updated the pat harvey's past medical history, past surgical history, family history and social hi story as needed. Assessment/Plan Mr. Angela Sanches is a 80 y.o. male who was admitted on 01/26/2021 with complaint of weakness. Problems addressed with today's visit include: * Spinal cord compression (HCC) - Continue Dexamethasone 4mg q6h - NS consulted Spinal cord mass (HCC) - NS consulted - NPO at midnight in case procedures needed T2DM (type 2 diabetes mellitus) (HCC) - Reports that he takes PO meds at home, A1c controlled - Monitor accucheks with correction factor UTI (urinary tract infection) - Cover with Rocephin - Will need to follow up cultures from OSH Hemiplegia (HCC) Left arm/leg - Workup as above - Consult PT/OT PAF (paroxysmal atrial fibrillation) ([facility]) - Hold Eliquis - Continue Toprol Essential hypertension - Continue Losartan & Toprol for now - Hold HCTZ and resume when PO intake advanced In addition, see my orders for additional details regarding this patients treatm ent plan. Diet: Diet-Low Fat/Chol, 2 gm Na (Simply Healthy) Diet NPO VTE Prevention: Appropriate VTE chemical treatment ordered. Appropriate VTE [facility] anical treatment ordered. Code Status: DNR Disp: Admit the patient as Inpatient to Intermediate for treatment as noted russell Rao DO [facility] . documented in this encounter Procedure Notes * William Martínez DO - 01/27/2021 4:31 PM CDT Procedures Neurointerventional Radiology Post Procedure Note Attending: Jone Assistants: Mauricio (Neurointerventional Radiology Fellow) Yonatan (Neurology Resid ent). Pre procedure Diagnosis: Spinal canal lesion Post Procedure Diagnosis: Same as pre-procedure diagnosis Procedure: Lumbar puncture Anesthesia: Local Impressions/ Findings: L2-L3, 20 g, clear CSF Please refer to the Final report under IR imaging in Epic. Vascular closure: N/A EBL: None Complications: None Condition of Patient: Stable Plan/ Follow up: Sample to lab. Ranjan Martínez DO Neurointerventional Radiology Fellow [employer] c) [phone] documented in this encounter Consult Notes * Ponce Stevens PA-C - 02/09/2021 12:50 PM CDT Associated Order(s): IP CONSULT TO UROLOGY UROLOGY CONSULTATION Patient: Angela Sanches Age: 80 y.o. 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 HPI: Pt is a 80 y/o man admitted for spinal cord lesion. He has left sided wea kness and cannot ambulate. Sounds like he does not have a definitive diagnosis for his neurologic symptoms. He had the frausto catheter placed on admission and has not had a voiding trial yet. Pt notes a h/o BPH and slow stream with TURP a bout a year and a half ago with outside urologist. His symptoms were never much better after this procedure. We are asked about a possible SP tube. He is gina ng discharged to rehab unit in [place], [place] tomorrow sometime. PMH: Past Medical History: Diagnosis Date CAD (coronary artery disease) Cognitive impairment Possible dementia, self reported Essential hypertension GERD (gastroesophageal reflux disease) Hyperlipidemia BAM on CPAP PAF (paroxysmal atrial fibrillation) ([facility]) PUD (peptic ulcer disease) PVD (peripheral vascular disease) ([facility]) T2DM (type 2 diabetes mellitus) ([facility]) Urinary retention PSH: Past Surgical History: Procedure Laterality Date ANKLE SURGERY CATARACT EXTRACTION, BILATERAL NASAL SEPTUM SURGERY NECK SURGERY Cyst removal TONSILLECTOMY TRANSURETHRAL RESECTION OF PROSTATE WISDOM TOOTH EXTRACTION SOCIAL HISTORY: reports that he quit smoking about 24 years ago. He has never used smokeless to bacco. He reports previous alcohol use. FAMILY HISTORY: family history includes Cancer in his mother. MEDICATIONS: Scheduled Meds: apixaban 5 mg Oral BID digoxin 125 mcg Oral QPM docusate sodium 100 mg Oral BID insulin glargine 5 Units Subcutaneous Nightly insulin lispro 2-7 Units Subcutaneous 4 times daily before meals and nightl y insulin lispro 8 Units Subcutaneous TID AC metoprolol succinate 300 mg Oral Daily Continuous Infusions: PRN Meds:acetaminophen OR acetaminophen, benzocaine-menthoL, bisacodyL, dext sabine 50%, glucagon OR glucagon, glucose, guaiFENesin, magnesium sulfate, met oclopramide OR metoclopramide, metoprolol, miconazole nitrate, ondansetron, polyethylene glycol, potassium chloride OR potassium bicarb-citric acid OR potassium chloride in water, prochlorperazine OR prochlorperazine OR prochlorperazine, sodium chloride, sodium chloride 0.9% ALLERGIES: has No Known Allergies. ROS: Review of Systems - Gastrointestinal ROS: negative for - abdominal pain Genito-Urinary ROS: positive for - change in urinary stream PHYSICAL EXAMINATION: Blood pressure 115/72, pulse 79, temperature 36.7 C (98 F), temperature sour ce Oral, resp. rate 18, height 1.803 m (5' 11"), weight 119 kg (262 lb 6.4 oz), SpO2 96 %. GENERAL: Pt is alert and oriented, no acute distress. HEENT: Grossly intact. LUNGS: Normal respiratory effort. ABDOMEN: Soft, nontender, non distended. GENITALIA: normal, frausto in place urine yellow. RECTAL: deferred EXTREMITIES: extremities normal, atraumatic, no cyanosis or edema. LABORATORY DATA: Most Recent Result within the last 7 days Lab Units 02/08/21 1204 02/07/21 0801 02/06/21 1155 SODIUM MEQ/L 134 134 132* POTASSIUM MEQ/L 3.8 3.6 3.8 CHLORIDE MEQ/L 103 104 104 CARBON DIOXIDE MEQ/L 25 24 22 BLOOD UREA NITROGEN mg/dL 24 21 26 CREATININE mg/dL 0.8 0.8 0.8 GLUCOSE mg/dL 210* 129* 188* CALCIUM mg/dL 7.8* 7.6* 7.7* Most Recent Result within the last 7 days Lab Units 02/08/21 1204 02/06/21 1155 02/05/21 0857 WBC TH/uL 7.29 9.04 8.29 HEMOGLOBIN g/dL 14.3 14.9 14.5 HEMATOCRIT % 41 43 42 PLATELET COUNT TH/uL 133* 103* 95* Appearance, Urine Date/Time Value Ref Range Status 02/04/2021 12:11 PM Dark Yellow Final Glucose Urine Date/Time Value Ref Range Status 02/04/2021 12:11 PM Negative Negative mg/dL Final Bilirubin Urine Date/Time Value Ref Range Status 02/04/2021 12:11 PM Small (A) Negative Final Ketones Urine Date/Time Value Ref Range Status 02/04/2021 12:11 PM Negative Negative mg/dL Final Specific [place], UA Date/Time Value Ref Range Status 02/04/2021 12:11 PM 1.019 1.001 - 1.030 Final Hemoglobin Urine Date/Time Value Ref Range Status 02/04/2021 12:11 PM Trace (A) Negative Final PH Urine Date/Time Value Ref Range Status 02/04/2021 12:11 PM 5.5 5.0 - 8.0 Final Protein Urine Qual Date/Time Value Ref Range Status 02/04/2021 12:11 PM Negative Negative mg/dL Final Urobilinogen Urine Date/Time Value Ref Range Status 02/04/2021 12:11 PM Negative Negative EU/dL Final Nitrite Urine Date/Time Value Ref Range Status 02/04/2021 12:11 PM Negative Negative Final Leukocyte Esterase Date/Time Value Ref Range Status 02/04/2021 12:11 PM Positive (A) Negative Final Microscopic RBC Urine Date/Time Value Ref Range Status 02/04/2021 12:11 PM 0-5 0 - 5 /hpf Final Microscopic WBC Urine Date/Time Value Ref Range Status 02/04/2021 12:11 PM 0-5 0 - 5 /hpf Final Epithelial Cells Date/Time Value Ref Range Status 02/04/2021 12:11 PM Absent Absent Final Hyaline Cast Date/Time Value Ref Range Status 02/04/2021 12:11 PM Absent Absent Final Bacteria Date/Time Value Ref Range Status 02/04/2021 12:11 PM Absent Absent Final IMAGING: CT Abdomen w wo contrast Result Date: 02/06/2021 Impression: 2.3 cm hepatic hemangioma corresponding with findings on abdominal ultrasound. Multiple subcentimeter low-attenuation lesions within the liver too small to accurately characterize with CT, statistically representing small cysts. Follow-up with repeat CT or MRI in 3 months could be considered to ensure stability given the patient's history READING SITE: [facility] US Abdomen complete Result Date: 02/05/2021 1. Spleen is normal size. 2. Gallbladder contains sludge and shadowing stone. No evidence of acute cholecystitis. 3. 2.6 cm echogenic lesion in the left hepatic lobe, potentially a hemangioma. This should be confirmed with CT or MRI if patient has chronic liver disease, is at risk for development of liver cancer, or has known cancer. READING SITE: [facility] XR Chest single view frontal Result Date: 02/04/2021 No focal consolidation Cardiomegaly READING SITE: [facility] Echo Complete with Doppler and Color Flow Result Date: 02/04/2021 1. Moderately reduced left ventricular systolic function, with an estimated ej ection fraction of 25% 2. No significant valvular abnormalities. 3. Moderate pulmonary hypertension. Estimated PA pressure = 55 mmHg. No previous study available for comparison. Dr Dieudonne Michaels (Electronically Signed) Final Date: 04 February 2021 15:53 IMPRESSION: Urinary retention. H/o BPH and TURP. Probable neurogenic bladder. Spinal cord lesion. PLAN: Since he has not had a voiding trial since admission 2 weeks ago, would remove f oley and see if he can void on his own. I am not sure how successful he will be with his neuro issues and h/o BPH, but at least worth a try. Would consider st arting Flomax with h/o BPH. If he fails replace frausto and discharge with it(ord ers written for nursing). Since he is on Eliquis this would have to be held for several days prior to any procedures, so would not hold up his discharge for an SP tube. I would see how his rehab goes over the next several weeks and if sti ll very weak/non ambulatory, then I think it would be reasonable to have an SP t ube placed at some point. This would also be easier to give future voiding tria ls depending on his recovery. Ponce Stevens PA-C [facility] Pager - [phone] After 1:30 pm on Tuesdays and after 4 pm all other days, call [phone] for t he appropriate provider. Do not call on weekends. 02/09/2021 12:50 PM * Chanda Ortiz MD - 02/04/2021 5:08 PM CDT CRITICAL CARE CONSULT NOTE NAME: Angela Sanches AGE: 80 y.o. : 1940 ADMISSION DATE: 01/26/2021 PRIMARY CARE PROVIDER: Christophe Kennedy MD ATTENDING PHYSICIAN: Ave Jurado* CHIEF COMPLAINT Hypotension HISTORY OF PRESENT ILLNESS Mr Angela Sanches is a 80-year-old male with past medical history of coronary art toi disease, hypertension, hyperlipidemia, permanent atrial fibrillation on long -term anticoagulation, heart failure with with reduced EF (EF of 30%) type 2 dali betes and BAM, who was initially admitted to [facility] on 01/26 with le ft-sided weakness. Critical care was consulted today due to hypotension on the floor. Earlier today patient's blood pressure decreased to systolic of 80s. He was fou nd to be in A. fib with RVR with heart rate running 140s to 150s. EKG was done that demonstrated atrial fibrillation with RVR and a left bundle aaliyah block. Blood pressures remain below systolics in the 80s. He was given 5% albumin and stat labs were ordered including a lactic. He was given a loading dose of digox in and cardiology was consulted for further management. They recommended starti ng home dose of metoprolol and considering transfer to ICU for further managemen t. Went to evaluate patient. Patient is awake and alert and in no acute distress. Heart rates currently running in the 140s. Latest blood pressure with a MAP in the 80s. He is mentating well. He is able to tell me who he is and where he i s. He answers all questions about his history. Currently patient denies any di zziness, or lightheadedness. He denies any chest pain or shortness of breath. He has no abdominal pain and reports that his is eating without difficulty. On review of labs, his electrolytes are overall within normal limits. His lact ic acid is improving and is down to 1.9. He does have a transaminitis and eleva jovon bilirubin. White blood count is stable at 9.4. Blood cultures were sent ea xavi today and patient was given a dose of Zosyn. Chest x-ray was done that de monstrated no focal consolidation. Echo completed today demonstrates reduced EF of 25% and moderate. PAST MEDICAL HISTORY Past Medical History: Diagnosis Date CAD (coronary artery disease) Cognitive impairment Possible dementia, self reported Essential hypertension GERD (gastroesophageal reflux disease) Hyperlipidemia BAM on CPAP PAF (paroxysmal atrial fibrillation) (HCC) PUD (peptic ulcer disease) PVD (peripheral vascular disease) (HCC) T2DM (type 2 diabetes mellitus) (HCC) Urinary retention PAST SURGICAL HISTORY Past Surgical History: Procedure Laterality Date ANKLE SURGERY CATARACT EXTRACTION, BILATERAL NASAL SEPTUM SURGERY NECK SURGERY Cyst removal TONSILLECTOMY TRANSURETHRAL RESECTION OF PROSTATE WISDOM TOOTH EXTRACTION PRIOR TO ADMISSION MEDICATIONS Medications Prior to Admission Medication Sig Dispense Refill Last Dose apixaban (ELIQUIS) 5 mg tablet Take 5 mg by mouth 2 (two) times a day. calcium/magnesium/vitamin D3 (SKYE-MAG COMPLEX ORAL) Take by mouth. ferrous sulfate 325 (65 FE) MG tablet Take 325 mg by mouth daily with breakfast . hydroCHLOROthiazide (HYDRODIURIL) 25 MG tablet Take 25 mg by mouth daily. losartan (COZAAR) 50 MG tablet Take 50 mg by mouth daily. metoprolol succinate (TOPROL-XL) 200 MG 24 hr tablet Take 300 mg by mouth daily . mirabegron (MYRBETRIQ) 50 mg Tb24 tablet Take by mouth daily. multivit with iron,hematinic (SUPER B-COMPLEX ORAL) Take by mouth. omega 3 fish oil (SEA OMEGA) DHA 200 mg-EPA 300 mg (1,000 mg) capsule Take by m outh 2 (two) times a day. potassium chloride (KLOR-CON) 10 MEQ CR tablet Take 10 mEq by mouth daily. solifenacin (VESICARE) 10 MG tablet Take 10 mg by mouth daily. trospium (SANCTURA) 20 mg tablet Take 20 mg by mouth 2 (two) times a day. MEDICATIONS apixaban 5 mg Oral BID digoxin digoxin 250 mcg Intravenous Q8H Followed by [START ON 02/05/2021] digoxin 125 mcg Oral QPM docusate sodium 100 mg Oral BID insulin glargine 5 Units Subcutaneous Nightly insulin lispro 2-7 Units Subcutaneous 4 times daily before meals and nightly insulin lispro 8 Units Subcutaneous TID AC metoprolol succinate 200 mg Oral Daily piperacillin-tazobactam 3.375 g Intravenous Q6H JERE ALLERGIES Patient has no known allergies. FAMILY HISTORY Patient denies any family history of lung disease or thromboembolic disease. Family History Problem Relation Age of Onset Cancer Mother SOCIAL HISTORY Smoking: S former smoker that quit 24 years ago Alcohol: Denies alcohol use REVIEW OF SYSTEMS REVIEW OF SYSTEMS: Const: Negative for fever, chills. HENT: Negative sore throat Eye: Negative for blurred vision. Respiratory: Negative for cough, shortness of air, dyspnea on exertion Cardiovascular: Negative for chest pain, palpitations, syncope Gastrointestinal: Negative for nausea, vomiting, abdominal pain Musculoskeletal: Negative joint pain or muscle pain Skin: Negative rash, hives or lesions Neurological: Negative for dizziness All other systems negative. VITALS BP 110/79 | Pulse (!) 151 | Temp 36.7 C (98 F) (Oral) | Resp 20 | Ht 1.8 03 m (5' 11") | Wt 122.7 kg (270 lb 8.1 oz) | SpO2 93% | BMI 37.73 kg/m Intake/Output Summary (Last 24 hours) at 02/04/2021 1708 Last data filed at 02/04/2021 0600 Gross per 24 hour Intake 640 ml Output 1400 ml Net -760 ml EXAM General Appearance: Awake and alert no acute distress Neurologic: Alert and oriented x3, follows all commands Neck: Positive JVD Respiratory: Airway: Not Intubated Lungs: Largely clear to auscultation Heart: Tachycardic, irregularly irregular Abdomen: Soft nontender, nondistended Extremities: Bilateral lower extremity edema pitting edema Pulses/Perfusion: Warm and well perfused LABS No lab components to display Most Recent Result within the last 7 days Lab Units 02/03/21 1000 02/01/21 1056 SODIUM MEQ/L 132* 133 POTASSIUM MEQ/L 4.1 4.3 CHLORIDE MEQ/L 100 99 CARBON DIOXIDE MEQ/L 30 27 BLOOD UREA NITROGEN mg/dL 49* 57* CREATININE mg/dL 1.1 1.0 GLUCOSE mg/dL 103* 246* CALCIUM mg/dL 7.7* 7.9* Most Recent Result within the last 7 days Lab Units 02/04/21 1205 02/03/21 1000 02/01/21 1056 WBC TH/uL 9.47 9.30 8.01 HEMOGLOBIN g/dL 15.3 15.3 15.0 HEMATOCRIT % 43 45 42 PLATELET COUNT TH/uL 97* 101* 117* Most Recent Result from last 24 hours Lab Units 02/04/21 1205 INR 1.9* No results found for this or any previous visit. No results found for this or any previous visit. No results found for this or any previous visit. Most Recent Result within the last 7 days Lab Units 02/04/21 1647 02/04/21 1207 02/04/21 1120 02/04/21 0750 02/03/21 2108 02/03/21 1738 GLUCOSE POC mg/dL 103* 103* 117* 97 111* 94 IMAGING XR Chest single view frontal Result Date: 02/04/2021 No focal consolidation Cardiomegaly READING SITE: [facility] Echo Complete with Doppler and Color Flow Result Date: 02/04/2021 1. Moderately reduced left ventricular systolic function, with an estimated ej ection fraction of 25% 2. No significant valvular abnormalities. 3. Moderate pulmonary hypertension. Estimated PA pressure = 55 mmHg. No previous study available for comparison. Dr Dieudonne Michaels (Electronically Signed) Final Date: 04 February 2021 15:53 ASSESSMENT Mr. Angela Sanches is a 80 y.o. year-old male who presented on 01/26/2021 Principal Problem: Spinal cord compression (HCC) Active Problems: Spinal cord mass (HCC) Essential hypertension PAF (paroxysmal atrial fibrillation) (HCC) Hemiplegia (HCC) UTI (urinary tract infection) T2DM (type 2 diabetes mellitus) (HCC) Cervical myelopathy (HCC) BAM (obstructive sleep apnea) Diabetic polyneuropathy associated with type 2 diabetes mellitus (HCC) Constipation Patient was initially admitted with left-sided weakness found to have extensive cervical lesion causing spinal cord compression. Critical care was consulted to day due to hypotension. On review of charts patient's blood pressure has been l ower since admission likely related to his underlying heart failure. Today wes ent went into A. fib with RVR and since then has had lower blood pressures. Troy pite the lower blood pressures, his map is above 65. He is mentating well on ex am. His lactic acid is normal. There are no signs of poor perfusion. Believe that likely has worsened hypotension is secondary to his A. fib with RVR. Discu ssed with hospitalist and recommended better control of rate. Other considerati ons for hypotension include infection. He has had no fevers or elevated white b lood cell count that would suggest an infection. He had blood culture sent toda y and was given a dose of Zosyn which is a good broad-spectrum antibiotic. Also have to consider hypovolemia. Patient does not appear hypovolemic on exam, on the contrary he has bilateral lower extremity pitting edema's. He was given 5% albumin which did not help with his hypotension. Overall based on exam, patient does not require transfer to the ICU at this time. PLAN -Continue to monitor blood pressure with goal MAP greater than 65 -Recommend improve rate control could consider amiodarone - cardiology is involv ed so will leave medication adjustments to them and primary -Antibiotics per hospitalist though there is no indication of septic shock at th is time -Continue to monitor for signs of poor perfusion -Do not feel that patient currently requires transfer to ICU at this time Angela Sanches is clinically low risk for COVID-19. COVID-19 testing was NEGATIVE . It is okay to remove the enhanced respiratory precautions and order any other appropriate precautions based on other diagnoses. Current isolation level: No active isolations PPE Statement: Miesha Ferreira DO used Yellow precautions (Level 1 mask worn over level 3 mask, eye protection, and gloves). Patient seen and discussed with critical care attending Dr. Angel Ferreira DO Critical Care Fellow PGY6 Electronically signed by Miesha Ferreira DO 02/04/2021 Pulmonary/CCM staff I have seen and examined the patient. I have reviewed the fellow's note. I ag ree with the fellow's findings, assessment, and plan with the following exceptio ns/additions: -Patient is hemodynamically stable. MAP's have been more than 65 throughout. He is mentating, alert and oriented. His lactate is normal. I do not think patient will benefit from pressors. I think his A. fib with RVR needs to be better contr olled. I do not see a reason for him to come to medical ICU at this time. I thin k if he has to go to the ICU he should go under cardiology service for managemen t of A. fib with RVR. Discussed with hospitalist Dr. Jurado and Dr. Ryan washington with cardiology. We will sign off, please call with questions. PPE Statement: Chanda Ortiz MD used Green precautions (Level 1 mask, eye protect ion, and gloves). Electronically signed by Chanda Ortiz MD 02/04/2021 8:30 PM * Karel Galvan MD - 02/04/2021 2:06 PM CDT Associated Order(s): IP CONSULT TO CARDIOLOGY Images from the original note were not included. [facility] Cardiology Consult This hospital encounter may have been performed with modifications including chery ited or no face to face contact as noted in physical exam below due to concerns about potential exposure to COVID-19 in an effort to minimize patient and provid er risk. Date: 02/04/2021 [facility] patient: No PCP: Christophe Kennedy MD Case discussed with Requesting Physician: No Requesting Physician: Dr. Jurado Reason for consult: AF RVR, LBBB Note generated by: Lyla Hebert, RN, DNP, AG PCNP-C HPI: Mr. 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 Patient found to have spinal cord compression with expansive cervical lesion not ed on outside imaging. NS feels that presentation not typical of neoplastic proc ess, but cannot rule out primary malignancy. Patient is on Solumedrol. Cardiolog y has been consulted for atrial fibrillation with RVR and LBBB. EKG today reveals atrial fibrillation with RVR at 148 bpm. Patient has been star jovon on digoxin load today. Patient is hypotensive. Patient was on metoprolol suc cinate 300 mg daily and digoxin 125 mcg every other day at home. He has not been on digoxin and metoprolol has been withheld since 02/03. Troponin negative. Na+ 132, K+ 4.1, Cr 1.1, ALT 177, AST 81, bilirubin 3.6, Hgb 15.3, platelets 97,000, INR 1.9. Patient was placed on telemetry today after working with PT/OT and noting patien t to have high heart rates. It appears he has had intermittently high heart rate s since 02/02 on [facility] record. He denies any prior ischemic work-up or interventions in the past. He describes that he was attempted to be cardioverted a few years ago which only worked a few days. He is asymptomatic from the atrial fibrillatio n. He denies chest pain, shortness of breath, dizziness, lightheadedness or pres yncope. Past Medical History: Diagnosis Date CAD (coronary artery disease) Cognitive impairment Possible dementia, self reported Essential hypertension GERD (gastroesophageal reflux disease) Hyperlipidemia BAM on CPAP PAF (paroxysmal atrial fibrillation) (HCC) PUD (peptic ulcer disease) PVD (peripheral vascular disease) (HCC) T2DM (type 2 diabetes mellitus) (HCC) Urinary retention Past Surgical History: Procedure Laterality Date ANKLE SURGERY CATARACT EXTRACTION, BILATERAL NASAL SEPTUM SURGERY NECK SURGERY Cyst removal TONSILLECTOMY TRANSURETHRAL RESECTION OF PROSTATE WISDOM TOOTH EXTRACTION Social History: reports that he quit smoking about 24 years ago. He has never used smokeless to bacco. He reports previous alcohol use. No history on file for drug use. Family History Problem Relation Age of Onset Cancer Mother Family History of Premature CAD: No Review of Systems 10 points reviewed and found negative except as noted in the HPI, or below: Review of Systems Constitutional: Positive for fatigue. No Known Allergies Medications-Current: digoxin apixaban 5 mg Oral BID digoxin 250 mcg Intravenous Q8H Followed by [START ON 02/05/2021] digoxin 125 mcg Oral QPM docusate sodium 100 mg Oral BID insulin glargine 5 Units Subcutaneous Nightly insulin lispro 2-7 Units Subcutaneous 4 times daily before meals and nightl y insulin lispro 8 Units Subcutaneous TID AC metoprolol succinate 25 mg Oral Daily piperacillin-tazobactam 3.375 g Intravenous Q6H [facility] LAB[facility] IMAGING: XR Abdomen single view AP Result Date: 01/31/2021 Probable fecal impaction in the rectum. Nonobstructive bowel gas pattern. ATTESTATION STATEMENT: Staff Radiologist has personally reviewed this study and agrees with the findings in this report. READING SITE: [facility] EKG: Atrial Fibrillation at 148 bpm Telemetry: Atrial fibrillation with rapid ventricular response at 148 bpm Most Recent Result within the last 7 days Lab Units 02/04/21 1205 02/03/21 1000 02/01/21 1056 WBC TH/uL 9.47 9.30 8.01 HEMOGLOBIN g/dL 15.3 15.3 15.0 HEMATOCRIT % 43 45 42 PLATELET COUNT TH/uL 97* 101* 117* INR 1.9* -- -- Recent Labs 02/03/21 1000 NA 132* CL 100 CO2 30 BUN 49* CREAT 1.1 Most Recent Result within the last 7 days Lab Units 02/03/21 1000 02/01/21 1056 POTASSIUM MEQ/L 4.1 4.3 Most Recent Result within the last 7 days Lab Units 02/03/21 1000 02/01/21 1056 GLUCOSE mg/dL 103* 246* Most Recent Result within the last 7 days Lab Units 02/03/21 1000 ALKALINE PHOSPHATASE IU/L 46 PROTEIN TOTAL SERUM g/dL 5.5* ALBUMIN g/dL 2.5* ALANINE AMINOTRANSFERASE IU/L 177* ASPARTATE AMINOTRANSFERASE IU/L 81* No lab components to display Lab Results Component Value Date HGBA1C 6.4 (H) 01/23/2021 Echo: Date: 08/29/2020 (OSH) Conclusion: LV systolic dysfunction is present Regional wall motion abnormalities are present consistent with prior anterior infarct LVEF estimate 30% Thickened valvular leaflets with mild aortic insufficiency Moderate concentric left ventricular hypertrophy Diastolic dysfunction Ascending aorta is mildly dilated measures 3.9 cm PHYSICAL EXAM: Temp: [36.4 C (97.6 F)-36.8 C (98.2 F)] 36.6 C (97.8 F) Pulse: [69-156] 130 Resp: [19-20] 20 BP: (78-115)/(57-80) 84/60 YOEL Risk Index for in-hospital mortality Age: 80 y.o. BP: (!) 84/60 Pulse: (!) 130 YOEL Risk Index Score: 97 <20 is low risk 20-30 is Intermediate >30 is high risk Physical Exam Constitutional: Appearance: Normal appearance. He is obese. HENT: Head: Normocephalic and atraumatic. Mouth/Throat: Mouth: Mucous membranes are moist. Cardiovascular: Rate and Rhythm: Tachycardia present. Rhythm irregularly irregular. Pulmonary: Effort: Pulmonary effort is normal. Breath sounds: Normal breath sounds. Abdominal: General: Bowel sounds are normal. Palpations: Abdomen is soft. Musculoskeletal: Cervical back: Neck supple. Right lower leg: Edema present. Left lower leg: Edema present. Skin: General: Skin is warm. Neurological: Mental Status: He is alert and oriented to person, place, and time. Psychiatric: Mood and Affect: Mood normal. ASSESSMENT & PLAN: Principal Problem: Spinal cord compression (HCC) Active Problems: Spinal cord mass (HCC) Essential hypertension PAF (paroxysmal atrial fibrillation) (HCC) Hemiplegia (HCC) UTI (urinary tract infection) T2DM (type 2 diabetes mellitus) (HCC) Cervical myelopathy (HCC) BAM (obstructive sleep apnea) Diabetic polyneuropathy associated with type 2 diabetes mellitus (HCC) Constipation 1. Atrial fibrillation with RVR - patient has a history of permanent atrial fibrillation - patient asymptomatic with RVR - EKG reveals AF with RVR at 148 bpm (possible 2:1 atrial flutter) - patient was placed on telemetry today and noted to be in RVR around noon - started on IV digoxin load today (he is on PO digoxin 125 mcg every other day at home, but had not been getting it this admission) - metoprolol succinate 25 mg held today due to hypotension (he was on 300 daily at home) - anticoagulated with Eliquis 5 mg BID - current echo pending - IV metoprolol 5 mg q 4 hours HR >100 bpm - will restart metoprolol succinate 200 mg daily - note he was on digoxin 125 mg every other day at home 2. LBBB - EKG from 08/31/2017 report states "consider atypical LBBB" - LBBB likely chronic 3. Heart failure with reduced ejection fraction - etiology unclear - LVEF 30% (08/2020 from OSH) - metoprolol succinate and losartan on hold given hypotension 4. Coronary artery disease - per records - patient denies prior history of ischemic work-up 5. Hypotension - BP 84/60 - patient given IV albumin today - will give NS IV bolus 250 ml x1 today (okay to repeat bolus as needed for syst olic BP<90) 6. Spinal cord compression - per neurology cervical myelopathy, concerns for transverse myelitis - C and T spine MRI's showed enlargement of long segment cord expansion in the c ervical and upper thoracic region - NS feels that presentation not typical of neoplastic process, but cannot rule out primary malignancy, cytology negative for malignancy - treated with solumedrol with minimal improvement 7. Hemiplegia - LUE/LLE related to spinal cord compression 8. Abnormal liver function - ALT 177, AST 81, bilirubin 3.6, platelets 97,000, INR 1.9 - abdominal US pending A total of 25 of provider time was spent on retrieving results, reviewing result s, interpreting results and providing communication on results and recommendatio ns. PPE Statement: Lyla Heebrt NP used standard contact precautions. Electronically signed by Lyla Hebert NP, 02/04/2021 2:06 PM STAFF ATTESTATION: I, Karel Galvan MD, have seen and examined this patient. I have reviewed and edited the details outlined by my colleague Lyla Hebert NP in this note as needed. I would add the following montemayor elements of the patient's history, physica l exam and plan after my personal evaluation: Patient is a very pleasant 80-year-old male who has a history of permanent atria l fibrillation on Eliquis anticoagulation who was admitted with lower extremity weakness and found to have spinal cord compression with extensive cervical lesio n. Patient has not had his metoprolol since 02/02 and has not been on Lanoxin si nce his admission patient was found to have tachycardia and EKG showed atrial fi brillation with rapid ventricular response and rate of 148 bpm with a bundle bra nch block consistent with a left bundle branch block. He did not have an EKG at admission. Patient is asymptomatic however has had low blood pressures in the upper 80s and low 90s. His vital sign review showed at 7 AM on 02/02 that he had a ventricular response rate of 135 - blood pressure monitor. The patient had a troponin done which is normal he denies any chest pain tightness or pressure and has no family history of coronary artery disease.. An echocardiogram has been ordered and is pending. He has previously been told that he has left ventricul ar dysfunction with a reported EF in the past of 30%. Impression 1. Permanent atrial fibrillation with rapid ventricular responseI agree with dig loading and would recommend resuming his home dose after the load. Will re sume metoprolol at 200 mg a day of succinate and will supplement blood pressure with normal saline and if needed will add low-dose dopamine for systolic pressur es less than 90. The patient will need risk stratification in the future. We wi ll continue Eliquis. Will check thyroid functions as the patient is on thyroid replacement 2. Left bundle branch block unknown duration may be rate dependent troponin is negative 3. Acute on chronic systolic congestive failure patient appears to be euvolemic to dry at the present time and should be able to tolerate fluids 4. Hypotension we will treat with fluids and albumin and use pressor support fo r blood pressures less than 90 5. Spinal cord compression per neurology 6. Hemiplegia plan 7. Elevated LFTs work-up per primary I have performed an independent review of the following: EKG Telemetry I have discussed the case with the following: Another healthcare provider * Theresa Cast, YULIANA - 01/31/2021 10:45 AM CDT Associated Order(s): IP CONSULT TO PHYSICAL MEDICINE AND REHABILITATION [facility] 01/31/2021 Patient Identification Patient's Name: Angela Sanches : 1940 Admit Date: 01/26/2021 Attending Provider: Ave Jurado* Patient was seen and evaluated by the Physical Medicine & Rehabilitation Medicine consult service at the request of Ave Jurado* for rehabilitation needs. Primary Care Physician: Christophe Kennedy MD Admitting Diagnosis: Spinal Cord Lesion 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) History of Present Illness Information was obtained from patient interview and the medical records. Angela Sanches is a 80 y.o. male. Per chart review the patient was admitted on and has a past medical history significant for CAD, cognitive impairmen t, hypertension, hyperlipidemia, GERD, BAM on CPAP, paroxysmal atrial fibrillati on, PUD, PVD, diabetes mellitus type 2. Apparently the patient has been experie ncing some progressive lower extremity weakness left greater than right. It beg an in about May 2020 and he has progressed to using a walker on or about Nov. He has experienced multiple falls over the past 4 to 5 weeks precedin g admission. Presented initially to an outside hospital on 01/21/2021 following a fall at home. Work-up including MRI of the cervical, thoracic spines was conc erning for an expansile mass extending from C3-T5. He was transferred to [facility] on the [place] for neurosurgical consultation and definitive managem ent. On arrival here he endorses to the team that he feels he has been experien cing some additional upper extremity weakness as well as his lower extremity wea kness. Neurosurgery and Neurology have been consulted. MRI brain was ordered an d was relatively unremarkable. MRI of his cervical and thoracic spine revealed a long segment cord expansion from cervical to upper thoracic spine with questio nable subtle enhancement. Neurosurgery does not believe it is a spinal cord radha or given the timing and lack of obvious enhancement on imaging. They feel neuro logy's involvement was necessary as other differentials for involvement of essen tially the entire thickness of the cord transverse myelitis, neuromyelitis optic a, MS, ALS, or cross-sectional ischemia. Currently they do not feel there are f indings suggestive of MS on MRI imaging. Did not feel his clinical picture is c onsistent with ischemia. Neurology has evaluated the patient. Currently they ar e treating him with IV Solu-Medrol with concern for transverse myelitis. CSF AC E levels are pending. Physical Medicine and Rehabilitatiton was consulted "for p ossible acute rehab". At the time of my evaluation Mr. Sanches is resting in be d. No family at bedside. Continues to complain of weakness in both upper and l ower extremities. He states he is eager to get to rehab and work hard, but is w orried about his prognosis. Location: Whole body Quality: weakness of upper and lower extremities Duration: Beginning well prior to admission and ongoing Timing: Constant PPE Statement: Theresa Cast APRN used Yellow precautions (Level 1 mask worn over level 3 mask, eye protection, and gloves). Premorbid Functional Status: Prior to this hospitalization, this patient was mod ified independent with all activities of daily living and self care. He has expe rienced a decline in function for the last 9 to 12 months. Current Functional Status: Moderate assistance for bed mobility, standby assist ance for balance activity at EOB, Maximal assistance for transfers. Continued t herapy evaluations are underway. Barriers to Returning Home/ Home Environment: Pt lives alone in a single level h ome with a ramp to enter. DME at home: rolling walker, straight cane, crutches Caregiver/Social Support: He plans to live with his ex and she and his son will provide supervision and assistance as needed. The son is currently install ing a walk/roll in shower. Review of Systems A complete review of systems was obtained via the patient report including: Constitutional/General = fatigue, weight loss HEENT = Negative Cardio = Negative Respiratory = Negative GI = Negative = Negative Skin = Negative Neurologic = weakness Musculoskeletal = Negative Psychiatric = Negative Endocrine = Negative Hematologic = Negative Patient History Information PAST MEDICAL HISTORY: Past Medical History: Diagnosis Date CAD (coronary artery disease) Cognitive impairment Possible dementia, self reported Essential hypertension GERD (gastroesophageal reflux disease) Hyperlipidemia BAM on CPAP PAF (paroxysmal atrial fibrillation) (HCC) PUD (peptic ulcer disease) PVD (peripheral vascular disease) (HCC) T2DM (type 2 diabetes mellitus) ([facility]) Urinary retention PAST SURGICAL HISTORY: Past Surgical History: Procedure Laterality Date ANKLE SURGERY CATARACT EXTRACTION, BILATERAL NASAL SEPTUM SURGERY NECK SURGERY Cyst removal TONSILLECTOMY TRANSURETHRAL RESECTION OF PROSTATE WISDOM TOOTH EXTRACTION FAMILY HISTORY: Family History Problem Relation Age of Onset Cancer Mother SOCIAL HISTORY: Social History Socioeconomic History Marital status: Single Spouse name: Not on file Number of children: Not on file Years of education: Not on file Highest education level: Not on file Occupational History Not on file Tobacco Use Smoking status: Former Smoker Quit date: 01/26/1997 Years since quittin.0 Smokeless tobacco: Never Used Substance and Sexual Activity Alcohol use: Not Currently Drug use: Not on file Sexual activity: Not on file Other Topics Concern Not on file Social History Narrative Not on file Social Determinants of Health Financial Resource Strain: Difficulty of Paying Living Expenses: Food Insecurity: Worried About Running Out of Food in the Last Year: Ran Out of Food in the Last Year: Transportation Needs: Lack of Transportation (Medical): Lack of Transportation (Non-Medical): Physical Activity: Days of Exercise per Week: Minutes of Exercise per Session: Stress: Feeling of Stress : Social Connections: Frequency of Communication with Friends and Family: Frequency of Social Gatherings with Friends and Family: Attends [employer] Services: Active Member of Clubs or Organizations: Attends Club or Organization Meetings: Marital Status: Intimate Partner Violence: Fear of Current or Ex-Partner: Emotionally Abused: Physically Abused: Sexually Abused: Precaution No Known Allergies CURRENT MEDICATIONS: apixaban 5 mg Oral BID cefTRIAXone 1 g Intravenous Daily docusate sodium 100 mg Oral BID insulin glargine 8 Units Subcutaneous Nightly insulin lispro 2-7 Units Subcutaneous 4 times daily before meals and nightl y insulin lispro 5 Units Subcutaneous TID AC melatonin 6 mg Oral Nightly methylPREDNISolone sodium succinate 1,000 mg Intravenous Q24H JERE metoprolol succinate 300 mg Oral Daily pantoprazole 40 mg Oral Daily Physical Exam Patient Vitals for the past 24 hrs: BP Temp Temp src Pulse Resp SpO2 Weight 01/31/21 1204 104/86 (!) 112 01/31/21 1105 92/56 36.4 C (97.6 F) Oral (!) 58 18 97 % 01/31/21 0900 120/62 36.4 C (97.5 F) Oral (!) 43 18 99 % 01/31/21 0539 121.5 kg (267 lb 12.8 oz) 01/31/21 0411 (!) 115/99 36.3 C (97.3 F) Oral 64 18 94 % 01/31/21 0005 117/87 36.3 C (97.4 F) Oral (!) 52 18 96 % 01/30/212021 93/63 01/30/212007 (!) 106/94 36.5 C (97.7 F) Oral 63 18 96 % 01/30/21 1500 93/62 36.4 C (97.6 F) Oral 18 97 % General: Awake, alert in NAD. HEENT: Head is atraumatic, normocephalic. Oral mucosa is moist and without lesio ns. Nares are patent. CV: Tissues are well perfused. Resp: No signs of respiratory distress. GI: Abdomen is soft, non-tender, non-distended. : Frausto. MSK: No joint swelling or deformity is appreciated. No spasticity. Skin/Lymph: Skin is intact without obvious rashes or lesions. Neuro: Mental status - Awake, alert, oriented to person, place and time. Cognition & Comprehension - Performs simple and complex commands. Language - No signs of aphasia or dysarthria. Cerebellar signs - Intact to [id number] test and finger tap bilaterally. The re is decreased coordination in LUE primarily 2/2 decreased strength. Sensory - Intact to light touch in bilateral upper and lower extremities. No ext inction with bilateral simultaneous stimulation. CN - I: not tested II: Visual michelle grossly intact to confrontational testing, PERRLA. III, IV, : EOMI, no nystagmus appreciated. V: Facial sensation intact to light touch. VII: Facial movements appear symmetric bilaterally. VIII: Hearing grossly intact to conversation. IX, X: Not assessed. XI: Shoulder shrug intact bilaterally. XII: Tongue protrudes to midline. Muscle strength - 5-/5 in RUE and RLE. LLE 3/4 proximally and 2/5 distally. LUE 3+/5 proximally and 3/5 wrist extension and local owner operator truck driver. There is no clonus. No sign of rigidity, cogwheeling or tremor are appreciated. No signs of spasticity. Babinski down-going bilaterally. Apraxia/Neglects - Does not demonstrate apraxias or motor/sensory neglects. No e vidence for inattention or extinction. Autonomic signs - Skin temperature, color, sweating within normal limits. No duc dence for autonomic storming. DATA REVIEW Most Recent Result within the last 7 days Lab Units 01/27/21 1042 WBC TH/uL 6.22 HEMOGLOBIN g/dL 14.8 HEMATOCRIT % 44 PLATELET COUNT TH/uL 152 Most Recent Result within the last 7 days Lab Units 01/27/21 1600 01/27/21 1042 SODIUM MEQ/L -- 137 POTASSIUM MEQ/L -- 4.3 CHLORIDE MEQ/L -- 106 CARBON DIOXIDE MEQ/L -- 22 BLOOD UREA NITROGEN mg/dL -- 34* CREATININE mg/dL -- 1.0 GLUCOSE mg/dL 195* 224* CALCIUM mg/dL -- 8.1* Assessment/Plan I have personally performed an independent review of the patient's vital signs, laboratory/pathology/culture results (as indicated), imaging studies (results we re not discussed with the performing provider), diagnostic tests/studies (result s were not discussed with the performing provider), current inpatient medication s, oracle drm consultant notes, and legal support analyst notes with pertainent findings noted with in the assessment/plan. Assessment: Angela Sanches is a 80 y.o. male with: Spinal Cord Compression Left Hemiparesis Impaired Mobility and ADL's Suspicion for transverse myelitis Neurogenic Bladder DM II UTI Constipation PAF HTN PVD BAM on CPAP Recommendations: - Continue medical/surgical care per primary team. - PT for strengthening and mobility training. - OT for ADLs, dressing and self care. - Social work for discharge disposition and planning. - Education provided about different levels of rehabilitation and appropriatenes s of decided upon disposition. - I have discussed the case with the following: another healthcare provider, wilmer whittington work, attending PM&R staff physician. - We will follow along with the PM&R nurse practitioner. Angela Sanches will benefit from continued care in an acute inpatient rehabilitat ion facility when medically ready for discharge. He is in agreement with this p humberto. We will continue to follow and make recommendations as they become known as the patient's status and therapy needs may change prior to being medically ready for next level of care. Thank you for this consultation. Hopefully these efforts have been helpful. Roxy el feel free to contact us with any questions or concerns. Theresa Cast, MSN, FOOD EXPEDITOR, AGNP-C Physical Medicine and Rehabilitation [facility] Pager [phone] * Marie Rodriguez MD - 01/27/2021 10:51 AM CDT Associated Order(s): IP CONSULT TO NEUROLOGY NEUROLOGY CONSULTATION Patient Name: Angela Sanches : 1940 PCP: Christophe Kennedy MD Date of consultation: 01/27/2021 Requesting provider/service: JAKUB English Reason for consult: progressive weakness over 4-5 months, mostly left sided (pos sibly starting in May) History provided via: Medical records Visitors at bedside: None HISTORY OF PRESENT ILLNESS: Angela Sanches is a right handed male, presenting in transfer from [facility] in [facility] for evaluation of progressive left sided weakness with PMH significant for atr ial fibrillation on Eliquis (01/24 last dose), dyslipidemia, CAD, DM, BAM on CPAP , PVD, urinary retention, hypetension, and GERD. The patient self discloses he has had memory difficulty for the last few years, and has significant difficulty providing specifics during consultation. 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 He is and he tells me his ex- is on her way. He lives by himself. He stopped driving a few months ago because he was too weak to get i nto and out of the vehicle. He manages his own finances. He takes his medicati ons and "only forgets rarely". Historically, he experienced a period of approximately 3 months difficulty swall owing before 2004 with weight loss of > 50 lbs in 3 months time. He has had worsening urinary incontinence following TURP, as well as reported fecal incontinence the last few months. He admits to word finding difficulty for the last year or two, and had a spell of left hemisensory deficit in "the past" that has since improved. He has significant neuropathy in his lower extremities as well as notable edema. Mr. Sanches indicates that over a period of the last 5 months approximately he h as had progressive weakness of the left body. He also indicates he is "generall y more weak" all over. Over the last four weeks he admits to upper extremities feeling weaker, making it more difficult to use his cane. He has progressed fro m utilizing crutches after a left foot fracture, to a cane, then a walker, and n ow sometimes a wheelchair mostly for doctors appointments. He underwent PT with out improvement. He has had multiple falls, recently falling off a welt stitcher r esulting in bilateral lower extremity pain. He denies history of stroke, underw ent MRI brain in December 2020 with no report sent with patient. Outside MRI non-contrasted imaging showed expansile mass from C3 to T5 for which neurosurgery is following. Neurosurgery is repeating imaging with contrast of the cervical and thoracic region, and has added MRI head with and without contra st. Of note, started on Rocephin for UTI. REVIEW OF SYSTEMS: Const: Negative for fever, chills. + 15 lb recent weight loss. HENT: Negative for changes in hearing. Eye: Negative for blurred vision, diplopia, light sensitivity Respiratory: Negative for cough, shortness of air, dyspnea on exertion Cardiovascular: + fatigue, bilateral leg swelling. Genitourinary: Negative for dysuria. + urinary incontinence s/p TURP, + retent ion. Musculoskeletal: Negative joint pain. BLE edema. BLE muscle pain. Frequent fa lls. Skin: Negative rash, hives or lesions Neurological: + left body weakness, generalized weakness, bilateral Lower extr emity numbness and edema. + tingling to BLE distally. Hematological: + multifocal bruising PAST MEDICAL HISTORY: Past Medical History: Diagnosis Date CAD (coronary artery disease) Cognitive impairment Possible dementia, self reported Essential hypertension GERD (gastroesophageal reflux disease) Hyperlipidemia BAM on CPAP PAF (paroxysmal atrial fibrillation) (HCC) PUD (peptic ulcer disease) PVD (peripheral vascular disease) (HCC) T2DM (type 2 diabetes mellitus) (HCC) Urinary retention PAST SURGICAL HISTORY: Past Surgical History: Procedure Laterality Date ANKLE SURGERY CATARACT EXTRACTION, BILATERAL NASAL SEPTUM SURGERY NECK SURGERY Cyst removal TONSILLECTOMY TRANSURETHRAL RESECTION OF PROSTATE WISDOM TOOTH EXTRACTION FAMILY HISTORY: Family History Problem Relation Age of Onset Cancer Mother SOCIAL HISTORY: Social History Socioeconomic History Marital status: Single Spouse name: Not on file Number of children: Not on file Years of education: Not on file Highest education level: Not on file Occupational History Not on file Tobacco Use Smoking status: Former Smoker Quit date: 01/26/1997 Years since quittin.0 Smokeless tobacco: Never Used Substance and Sexual Activity Alcohol use: Not Currently Drug use: Not on file Sexual activity: Not on file Other Topics Concern Not on file Social History Narrative Not on file Social Determinants of Health Financial Resource Strain: Difficulty of Paying Living Expenses: Food Insecurity: Worried About Running Out of Food in the Last Year: Ran Out of Food in the Last Year: Transportation Needs: Lack of Transportation (Medical): Lack of Transportation (Non-Medical): Physical Activity: Days of Exercise per Week: Minutes of Exercise per Session: Stress: Feeling of Stress : Social Connections: Frequency of Communication with Friends and Family: Frequency of Social Gatherings with Friends and Family: Attends [employer] Services: Active Member of Clubs or Organizations: Attends Club or Organization Meetings: Marital Status: Intimate Partner Violence: Fear of Current or Ex-Partner: Emotionally Abused: Physically Abused: Sexually Abused: OUTPATIENT MEDICATIONS: Medications Prior to Admission Medication Sig Dispense Refill Last Dose apixaban (ELIQUIS) 5 mg tablet Take 5 mg by mouth 2 (two) times a day. calcium/magnesium/vitamin D3 (SKYE-MAG COMPLEX ORAL) Take by mouth. ferrous sulfate 325 (65 FE) MG tablet Take 325 mg by mouth daily with breakf ast. hydroCHLOROthiazide (HYDRODIURIL) 25 MG tablet Take 25 mg by mouth daily. losartan (COZAAR) 50 MG tablet Take 50 mg by mouth daily. metoprolol succinate (TOPROL-XL) 200 MG 24 hr tablet Take 300 mg by mouth da natanael. mirabegron (MYRBETRIQ) 50 mg Tb24 tablet Take by mouth daily. multivit with iron,hematinic (SUPER B-COMPLEX ORAL) Take by mouth. omega 3 fish oil (SEA OMEGA) DHA 200 mg-EPA 300 mg (1,000 mg) capsule Take b y mouth 2 (two) times a day. potassium chloride (KLOR-CON) 10 MEQ CR tablet Take 10 mEq by mouth daily. solifenacin (VESICARE) 10 MG tablet Take 10 mg by mouth daily. trospium (SANCTURA) 20 mg tablet Take 20 mg by mouth 2 (two) times a day. CURRENT MEDICATIONS: cefTRIAXone 1 g Intravenous Daily dexamethaSONE 4 mg Intravenous Q6H JERE insulin lispro 2-7 Units Subcutaneous 4 times daily before meals and nightl y LORazepam 0.5-1 mg Intravenous Once losartan 50 mg Oral Daily metoprolol succinate 300 mg Oral Daily ALLERGIES: No Known Allergies EXAMINATION: Vital Signs: BP 112/67 (BP Location: Right arm, Patient position: Supine) | Pu lse 94 | Temp 36.5 C (97.7 F) (Oral) | Resp 18 | Wt 120.4 kg (265 lb 8 oz ) | SpO2 97% General: Mr. Sanches is an obese appearing male in no acute distress. Head: Oropharynx clear. Head normocephalic. Cardiac: Regular rate and rhythm. Lungs: Non-labored. Extremities: + edema BLE. + multifocal areas of ecchymosis. Mental status, cognition, and cortical functions: Mental status: poor attention and concentration. Poor historian, unable to p rovide solid timeline of events Language is fluent with intact comprehension and repetition. Speech is clear, slow Cranial nerves: Pupils are equal, round, and reactive to light. Visual michelle are full to finger wag. Extraocular eye movements are intact in all directions. + nystagmus few beats to left gaze Facial sensation is intact to light touch throughout. Muscles of facial expression fairly symmetric Hearing is intact to voice Palate elevates symmetrically. Tongue protrudes in the midline Shoulder shrug slightly weaker appearing on left Motor: Muscle bulk is normal throughout. Muscle tone is normal throughout. Strength on confrontational testing is 3+/5 left upper, 3-/5 left lower, 4/5 right side. Gait and coordination: Gait: not assessed fall risk. Rapid alternating movements in the upper extremities (finger tapping) are sli ghtly slower on left. Mild weakness on finger to nose on left with mild incoordination Reflexes (right/left): Biceps: 2/2 Brachioradialis: 2/2 Patellae: 2/2 No clonus Plantar: up going right; mute left Sensation: Light touch sensation is reduced BLE's knees distally Proprioception is intact throughout extremities. Vibratory sense absent distal BLE's No extinction on double simultaneous tactile stimulation. LABS: Most Recent Result within the last 7 days Lab Units 01/27/21 1042 WBC TH/uL 6.22 HEMOGLOBIN g/dL 14.8 HEMATOCRIT % 44 PLATELET COUNT TH/uL 152 Most Recent Result within the last 7 days Lab Units 01/27/21 1042 SODIUM MEQ/L 137 POTASSIUM MEQ/L 4.3 CHLORIDE MEQ/L 106 CARBON DIOXIDE MEQ/L 22 BLOOD UREA NITROGEN mg/dL 34* CREATININE mg/dL 1.0 CALCIUM mg/dL 8.1* No lab components to display Most Recent Result within the last 7 days Lab Units 01/23/21 0533 HEMOGLOBIN A1C % 6.4* No lab components to display No results found for: CKTOTAL, CKMB, CKMBINDEX, TROPONIN STUDIES REVIEWED IR Lumbar puncture w fluoro Result Date: 01/27/2021 Successful fluoroscopically-guided lumbar puncture without complication. ATTESTATION STATEMENT: The Staff Physician has personally reviewed the images and dictated, reviewed, or edited the final report. READING SITE: [facility] Active Hospital Problems Cervical myelopathy (HCC) BAM (obstructive sleep apnea) Diabetic polyneuropathy associated with type 2 diabetes mellitus (HCC) *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) Essential hypertension PAF (paroxysmal atrial fibrillation) (HCC) Hemiplegia (HCC) UTI (urinary tract infection) T2DM (type 2 diabetes mellitus) (HCC) ASSESSMENT: Left hemiparesis with expansile mass C3-T5 with compression with months of pr ogressive weakness. MRI head is pending, and repeat imaging with contrast of spi ne pending per neurosurgery Cognitive impairment per pt report - perhaps UTI contributing in acute phase with acute encephalopathy UTI Paroxysmal atrial fibrillation Essential hypertension RECOMMENDATIONS: Imaging pending: MRI head, C/T spine with and without contrast pending per ne urosurgery LP planned & ordered per neurosurgery Dexamethasone per neurosurgery Antibiotics per hospitalist team re: UTI Further recommendations per staff, Dr. Jennifer Pena [facility] Neurologist: I personally interviewed and examined Mr. Angela Sanches. I discussed the finding s with nurse practitioner and reviewed the nurse practitioners note. I agree the findings with exceptions noted. This is a late entry, patient was seen earlier today. He is a pleasant 80-year- old right-handed male who was transferred from [place], [place] for neurosurgica l evaluation of an intramedullary cord lesion. He has had progressive trouble w ith his gait and weakness particularly with left hemiparesis over several months . He is a bit vague on the duration of symptoms. He reports that his gait has d eteriorated and over the past couple weeks he has had to use a walker. His legs give out. There is no pain. He has had a couple of episodes with using a walker where his arms have given out. He seems to have worsening weakness in the left arm and leg. He describes some shaking in his legs, worse in the mornings con sistent with spasticity. Again, no pain. The patient denies any past known neurologic history. No prior history of strok e. No episodic neurologic dysfunction over the years. He denies any visual los s or diplopia, no facial numbness or droop, no difficulty with speech or swallow ing. He denies neck pain. He denies Lhermitte's phenomenon. No abdominal wrap ping. He has had bowel and bladder incontinence. He had prostate surgery eithe august of this yea or august of last year. This did not help his incontinence . He has numbness in his feet with history of diabetic neuropathy. Occasionall y they tingle. 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 We were asked to consult. Objective findings and Assessment/Plan are as follows: Physical Exam: Vital Signs: BP 112/67 (BP Location: Right arm, Patient position: Supine) | Pul se 94 | Temp 36.5 C (97.7 F) (Oral) | Resp 18 | Wt 120.4 kg (265 lb 8 oz) | SpO2 97% In general he is a well-developed well-nourished pleasant male who is in no acut e distress. Neck: Supple without carotid bruits. Cardiovascular is irregularly irregular. Mental status: He is alert and appropriate. His speech is fluent. There is no dysarthria or dysphagia. Attention and concentration are intact, r ecent and remote memory are grossly intact. He is vague on details of timing of his history. Fundi: Right disc without edema or pallor. Cranial nerves: Pupils equally round and reactive to light, extraocular movements are full without ny stagmus, visual michelle full to confrontation, face symmetric, facial sensation i ntact to light touch, masseter strength and function equal, hearing reduced to f kostas rubbing bilaterally, tongue midline, shoulder shrug slightly reduced on th e left. 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 Tone is normal throughout. Sensation: Decreased pinprick to the mid bilateral lower le gs bilaterally with absent vibratory sense to the knees bilaterally. There is a T3 sensory level anteriorly to pinprick. DTRs 2/4 biceps, triceps, brachioradi jose manuel, 3+/4 knees bilaterally, absent at ankles. There is no clonus or Rocio sign. Lanter responses are upgoing bilaterally. Coordination: No dysmetria on [id number]. Gait: Deferred Hemoglobin A1c 6.4%, SARS-CoV-2 negative, rheumatoid factor <10, vitamin B12 569, folate 18.4, RPR nonreactive, hemoglobin A1c 6.4%, influenza antibodies negative, TSH 3.68, ESR 42, C-reactive protein 6.7 Assessment: Cervical myelopathyprogressive weakness, gait disturbance, spasticity and sensory level with expansile cervical lesion noted on outside imaging Diabetes mellitus with peripheral polyneuropathy Hypertension BAM on CPAP CAD/PAF Plan: Await repeat MRIs with contrast CSF obtained todayadd additional studies to include CSF VDRL, meningitis/e ncephalitis panel, multiple sclerosis panel, paraneoplastic panel SerologiesANA, SSA, SSB, complement, antiphospholipid antibodies, paraneop lastic antibodies, angiotensin-converting enzyme, HTLV Dexamethasone per neurosurgery Further studies pending above results We will follow Thank you for this consultation PPE Statement: Marie Rodriguez MD used Yellow precautions (Level 1 mask wo rn over level 3 mask, and gloves). Electronically signed by Marie Rodriguez 01/27/2021 5:44 PM * Ayana Green PA - 01/27/2021 10:21 AM CDT Associated Order(s): IP CONSULT TO NEUROSURGERY Neurosurgery Consult Note Patient Name: Angela Sanches Admission Date: 01/26/2021 7:39 PM Consult Date: 01/27/2021 Chief Complaint: Progressive lower extremity weakness left greater than right, p rogressive left upper extremity weakness History of Present Illness: 80-year-old male with history of A. fib on Eliquis ( last taken on 01/24/2021), hypertension, hyperlipidemia, GERD who was transferred to [facility] on 01/26/2021 for further work-up regarding progressive w eakness left greater than right. Patient tells me that he has had some left leg weakness as early as May 2020, began using a cane in late spring 2020 he be lieves progressing to requiring a walker since . He also r eports multiple falls over the last 4 to 5 weeks due to lower extremity weakness . He presented to outside hospital on 01/21/2021 following a fall. Work -up including noncontrasted MRI of the cervical, thoracic spines was concerning for an expansile mass extending from C3-T5. He was transferred to [facility] for neurosurgical evaluation. Patient endorses some left lower extremity pain related to a fall off of his law nmower in the last 4 to 5 weeks. He also notes some upper back pain which he de scribes as muscle tightness. He normally sees a chiropractor every other month but missed his last appointment. He has had urinary retention issues since a TU RP procedure which he believes was done in August 2019. Patient tells me that he [facility] to [facility] which he attributed to just being "old." He participated physical th erapy he leaves in due to his left lower extremity weakness at which t macey he began using a cane. He does not feel that therapy helped his strength mu ch. Over the course of the summer he began to have falls related to his left le g "giving out." He began using some crutches which he felt offered good support and then progressed to using a walker. Over the last 4 to 5 weeks he has notic ed that he feels progressively weaker in his upper extremities and has multiple falls over this time. He feels that he has some left lower extremity numbness a nd has developed some left hand numbness over the last few weeks. He feels that the numbness comes and goes. He has not suffered from a known infection since May 2020. He was vaccinated against COVID-19 in June 2020. He does not feel that his symptoms worsened around this time. His only other vaccination p rior to this was flu vaccine in February 2020. He feels that he has had about a 10 pound weight loss over the last 2 to 3 month s. He attributes this to loss of appetite related to worsening GERD symptoms af ter he was transitioned from omeprazole to a different medication. He has no pe rsonal history of cancer. He does not smoke; he quit in 1996. He does not drin k alcohol. He does not use illicit drugs. Past Medical History: Past Medical History: Diagnosis Date CAD (coronary artery disease) Cognitive impairment Possible dementia, self reported Essential hypertension GERD (gastroesophageal reflux disease) Hyperlipidemia BAM on CPAP PAF (paroxysmal atrial fibrillation) ([facility]) PUD (peptic ulcer disease) PVD (peripheral vascular disease) ([facility]) T2DM (type 2 diabetes mellitus) ([facility]) Urinary retention Past Surgical History: Past Surgical History: Procedure Laterality Date ANKLE SURGERY CATARACT EXTRACTION, BILATERAL NASAL SEPTUM SURGERY NECK SURGERY Cyst removal TONSILLECTOMY TRANSURETHRAL RESECTION OF PROSTATE WISDOM TOOTH EXTRACTION Family History: Family History Problem Relation Age of Onset Cancer Mother Social History: Social History Socioeconomic History Marital status: Single Spouse name: Not on file Number of children: Not on file Years of education: Not on file Highest education level: Not on file Occupational History Not on file Tobacco Use Smoking status: Former Smoker Quit date: 01/26/1997 Years since quittin.0 Smokeless tobacco: Never Used Substance and Sexual Activity Alcohol use: Not Currently Drug use: Not on file Sexual activity: Not on file Other Topics Concern Not on file Social History Narrative Not on file Social Determinants of Health Financial Resource Strain: Difficulty of Paying Living Expenses: Food Insecurity: Worried About Running Out of Food in the Last Year: Ran Out of Food in the Last Year: Transportation Needs: Lack of Transportation (Medical): Lack of Transportation (Non-Medical): Physical Activity: Days of Exercise per Week: Minutes of Exercise per Session: Stress: Feeling of Stress : Social Connections: Frequency of Communication with Friends and Family: Frequency of Social Gatherings with Friends and Family: Attends [employer] Services: Active Member of Clubs or Organizations: Attends Club or Organization Meetings: Marital Status: Intimate Partner Violence: Fear of Current or Ex-Partner: Emotionally Abused: Physically Abused: Sexually Abused: ALLERGIES: Patient has no known allergies. Review of Systems: 10 points reviewed and found positive except as noted in the HPI, or below: Const: Negative Eyes: Negative ENMT: Negative Pulm: Negative CV: Negative GI: Negative /PUMP TESTER: Negative Neuro: Negative Psych: Negative MS: Negative Skin: Negative Vitals: 01/27/21 0617 01/27/21 0758 BP: 114/86 119/57 Pulse: 99 95 Resp: 18 16 Temp: 36.3 C (97.3 F) 36.5 C (97.7 F) SpO2: 96% 97% Weight: No results found for: WBC, HGB, HCT, PLT No results found for: NA, K, CL, CO2, BUN, CR, LABGLOM, GLUCOSE, CALCIUM No lab components to display Physical Exam: Sitting up in bed no acute distress Equal sensation throughout bilateral face Pupils 3 mm equal round reactive to light Extraocular movements intact Tongue protrudes midline Weak shoulder shrug on left Positive pronator drift on left upper extremity 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, biceps/triceps 4+/5, intrinsics 4+/5, LUE 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 Symptoms began as early as May 2020, he has progressively required more assistance with ambul ation attributed to left lower extremity weakness starting with a cane, then cru tches, then walker. Over the last 4 to 5 weeks he has noted some upper extremit y weakness which has led him to fall 4-5 times. MRI of the spine at outside [facility] was concerning for an expansile mass from C3-T5. Unfortunately this was n ot contrasted as the patient could not tolerate the exam due to leg spasms and p ain. There is report of an MRI brain done in December 2020 however no imaging of the brain were clouded to us. We will order a repeat contrasted MRI of cervical and thoracic spines. We will also order a contrasted MRI of the brain. The timing of his symptoms are not aguair pportive of a neoplastic type picture as he would expect a much faster decline i n his neurologic status. We will also order a lumbar puncture to assess for mar kers related to myelitis type picture. Also consulted neurology for assistance in this case. I have held his subq heparin in case he is able to undergo LP today. Neurosurgical problem list: Cervical and thoracic spinal cord lesion Progressive left sided weakness Hospital Problem List: Principal Problem: Spinal cord compression (HCC) Active Problems: Spinal cord mass (HCC) Essential hypertension PAF (paroxysmal atrial fibrillation) (HCC) Hemiplegia (HCC) UTI (urinary tract infection) T2DM (type 2 diabetes mellitus) (HCC) Ayana Green PA-C [facility] Neurosurgery Medical [place] [address] [facility], [facility] [address] Available via Voalte After 5 pm and on weekends please contact [phone] for appropriate provider PPE Statement: JAKUB English used Yellow precautions (Level 1 mask worn o harsha level 3 mask, eye protection, and gloves). documented in this encounter Miscellaneous Notes * Nursing Discharge - Gertrude Mauricio RN - 02/10/2021 10:52 AM CDT Nursing Discharge Note Pt met dc criteria. Dc to [facility]. Pt made aware of transfer. Dc paperwo rk reviewed with patient. RN emailed AVS to pt's son as well. All questions answ ered. Pt left with all belongings, including eyeglasses. RN called report to [facility]. Transported by [facility] strike team. Patient/family satisfied with progress made towards goals and ready for discharg e. * Care Progression Final DC Note - Bekah Pandya LMSW - 02/10/2021 9:17 AM CDT Final Discharge Note Final Discharge Disposition: 62- Inpatient Rehab Facility or Unit Discharge goal and plan is mutually agreed upon by patient and tx team. Patient will discharge to: [place] [facility] Transportation: [facility] via strike team Discharge Time: 1030 Special Instructions: SW placed a copy of the PCS form in pt's packet. RN report number: [phone] Bekah Pandya LMSW Volte: [phone] Desk: [phone] * End of Shift Note - Krista Cast RN - 02/10/2021 5:46 AM CDT End of Shift Summary and Plan of Care Patient A&O X4. VSS on RA. Incontinent of bowel and bladder. Patient voiding on own throughout shift; post void bladder scan obtained - 0 mL. Patient rested comfortably overnight, no acute events. Goals per Patient Condition Fall Prevention Plan Patient will remain free from injury related to falls. See the Daily cares/safety flowsheet for intervention documentation. Skin Integrity Plan Patient skin integrity maintained. See integumentary daron wsheet for intervention documentation. Goals/Plan for Shift Patient/Family stated goal for shift: Sleep Nursing goal for shift: Maintian patient safety, maintain skin integrity, allow patient to rest Plan: Fall precautions in place, Q2 turns, cluster patient care Goals/Plan for Hospital Stay Patient/Family stated goal for hospital stay: come through this and be able to w alk Nursing goal for hospital stay: pt safety, pt comfort Plan: fall education, bed alarm use, education of pain scale, explain POC * End of Shift Note - Alton Young RN - 02/09/2021 6:35 PM CDT End of Shift Summary and Plan of Care Patient has maintained stable vital signs. [facility] RN removed frausto per urology orders. Patient has had several large voids. Jakub padron has sensation when he has to pee but states "it is too often to let nursin g staff know each time". Patient is planned to discharge tomorrow. Patient comfo rtable in bed. Goals per Patient Condition Fall Prevention Plan Patient will remain free from injury related to falls. See the Daily cares/safety flowsheet for intervention documentation. Skin Integrity Plan Patient skin integrity maintained. See integumentary daron wsheet for intervention documentation. Goals/Plan for Shift Patient/Family stated goal for shift: go to rehab today Nursing goal for shift: rest, maintain skin integrity Plan: fall precautions, q2 turns, cluster care Goals/Plan for Hospital Stay Patient/Family stated goal for hospital stay: come through this and be able to w alk Nursing goal for hospital stay: pt safety, pt comfort Plan: fall education, bed alarm use, education of pain scale, explain POC * Therapy Note - Iliana Arriaga OT - 02/09/2021 3:19 PM CDT 02/09/21 1517 OT Visit Info Attempted but was unable to see patient (date) 02/09/21 Reason patient was not seen Other (comment);Hold per staff OT reason not seen - extended comment attempt x2 today. Pt initially had d/c ord ers signed for ARU today. d/c orders were then removed and pt now plans to d/c t o ARU tomorrow. Per communicaiton with RN - nursing staff just got pt moved, mayela aned and resting in bed. Will hold this afternoon and attempt prior to d/c ot AR U if appropriate. Anam Arriaga OTr/L * Discharge Planning - Bekah Pandya LMSW - 02/09/2021 11:34 AM CDT Discharge Planning Interventions General Discharge Note Anticipated discharge disposition: Rehab facility/ Unit Care Progression Plan: ARU-[facility], Additional discharge planning information: SW had transport set and pt was ready to dc to ARU at [facility] in [place] at 1145. SW was updated by attending t grady she was uncomfortable w/ dc today as pt still has a frausto. Attending plans t o consult urology to determine if pt needs a super pubic catheter placed. She wi ll keep SW updated, however pt cannot dc today. SW cancelled transport w/ the strike team. SW called to update pt's son, Karel. S W left w/ call back number requesting return call. THOMAS called to update Nathalia at [facility]. SW left w/ call back number requesting return call. SW will c ontinue to follow. Referrals: Finalized Discharge Selection(s): Destination [place] [address] [place] [id number] Accepted Referral(s): Destination [place] [facility] [place] [address] Current DME Recommendations per Therapy: PT: Wheelchair OT: DME Provider name (freetext flowsheet) Referrals: Referral SmartLink Referrals Made (flowsheet documentation) Referral Accepted (will be removed because this is captured in Destination activ ity) Discharge Planning Participants: Patient, Children Pt/Family Agreement w/ discharge plan: Yes Patient's preferred CMS post-discharge list provided and discussed quality ratin gs: Acute Rehab Bekah Pandya LMSW Volte: [phone] Desk: [id number] * End of Shift Note - Josue Barrett RN - 02/09/2021 6:15 AM CDT End of Shift Summary and Plan of Care No acute changes. Sleep protected VS maintained. Frausto in place. Pleasant and co operative with cares. Slept comfortably for most of the night. Goals per Patient Condition Fall Prevention Plan Patient will remain free from injury related to falls. See the Daily cares/safety flowsheet for intervention documentation. Skin Integrity Plan Patient skin integrity maintained. See integumentary daron wsheet for intervention documentation. Goals/Plan for Shift Patient/Family stated goal for shift: rest Nursing goal for shift: rest, maintain skin integrity Plan: fall precautions, q2 turns, cluster care Goals/Plan for Hospital Stay Patient/Family stated goal for hospital stay: come through this and be able to w alk Nursing goal for hospital stay: pt safety, pt comfort Plan: fall education, bed alarm use, education of pain scale, explain POC * End of Shift Note - Alton Young RN - 02/08/2021 4:51 PM CDT End of Shift Summary and Plan of Care Patient has maintained stable vital signs this shift. Patient mary to get up to chair with use of lift today. Patient able to take all medications. Patient comf ortable in bed with bed alarm on. Plan is to discharge once insurance has author ed [facility]. Goals per Patient Condition Fall Prevention Plan Patient will remain free from injury related to falls. See the Daily cares/safety flowsheet for intervention documentation. Skin Integrity Plan Patient skin integrity maintained. See integumentary daron wsheet for intervention documentation. Goals/Plan for Shift Patient/Family stated goal for shift: take all my medicine Nursing goal for shift: rest, maintain skin integrity Plan: fall precautions, q2 turns, cluster care Goals/Plan for Hospital Stay Patient/Family stated goal for hospital stay: come through this and be able to w alk Nursing goal for hospital stay: pt safety, pt comfort Plan: fall education, bed alarm use, education of pain scale, explain POC * Therapy Note - Danay Delgado, PT - 02/08/2021 10:34 AM CDT 02/08/21 1020 PT Visit Info Patient/Family Reports Pt resting in bed upon entry, pt agreeable and motivated to participate in PT PT Received On 02/08/21 Time Calculation Start Time 0950 Stop Time 1020 Total Treatment time (min) 30 min Timed Minutes 10 min therex, 20 min theract Precautions Fall Risk Yes Supplemental Oxygen RA Other frausto Vital Signs Pulse (!) 142 (highest noted value during activity) Bed Mobility Supine to Sit Mod assist to right;Max assist to right;Verbal cueing required;HOB elevated Transfers Bed to Chair Dependent/mechanical lift (ceiling lift transfer pt sitting EOB > chair) Transfer Comments several attempts to practice offloading hips from EOB as a pre -transfer training activity. Pt attempts to offoad hips but unable to clear desp ite maxA Balance Activity Sitting Surface EOB Sitting Activity static;wt shift Sitting Time 11-15 min Sitting Assistance SBA;w/UE support Sitting Activity Comments cues to use LUE in active wt bearing Activity Tolerance Activity Tolerance fair;+ LE Ther Ex Ankle pump Bilateral;11 - 15 reps;Supine Quad set Bilateral;6 - 10 reps;Supine LAQ Right;6 - 10 reps;Sitting Glut set 6 - 10 reps;Supine Hip IR/ER Bilateral;6 - 10 reps;Supine Patient Education Patient Education PT POC Response to education verbalizes understanding *ASSESSMENT Response to Treatment Fair;Tolerated well GOALS Goals Bed Mobility;Transfers;Standing balance Bed Mobility Goals Bed Mobility STG Goal Status New goal Bed Mobility STG Moderate assistance Bed Mobility LTG Goal Status New goal Bed Mobility LTG Supervision Transfer Goals Transfer STG Goal Status New goal Transfer STG Maximum assistance Transfer STG - Assistive Device Least restrictive device Transfer LTG Goal Status New goal Transfers LTG Moderate assistance Transfer LTG - Assistive Device Least restrictive device Standing Balance Goals Standing Balance STG Goal Status New goal Standing Balance STG 1;static Standing Balance Goal Status LTG New goal Standing Balance LTG 2;static Plan Progress Progressing toward goals PT Nursing Communication please assist patient up to recliner daily using overhe ad lift Discharge Recommendations Plan Continued PT;Post Acute Care Facility;Rehab Medicine Consult Danay Delgado, PT, DPT Physical Therapist Voalte * Discharge Planning - Bekah Pandya LMSW - 02/08/2021 8:55 AM CDT Discharge Planning Interventions General Discharge Note Anticipated discharge disposition: Rehab facility/ Unit Care Progression Plan: ARU-[facility], [facility] Additional discharge planning information: SW received call from August at [facility] stating they will start auth this morning. She requested that SW send the therapy evals for insurance. SW sent notes via Noovo. 1210: SW updated pt's son, Karel. He is agreeable. SW will continue to follow. Referrals: Finalized Discharge Selection(s): Destination [place] [facility] [address] [address] Accepted Referral(s): Dest[place] [facility] [address] [address] Current DME Recommendations per Therapy: PT: Wheelchair OT: DME Provider name (freetext flowsheet) Referrals: Referral SmartLink Referrals Made (flowsheet documentation) Referral Accepted (will be removed because this is captured in Destination activ ity) Discharge Planning Participants: Patient, Children Pt/Family Agreement w/ discharge plan: Yes Patient's preferred CMS post-discharge list provided and discussed quality ratin gs: Acute Rehab Bekah Pandya LMSW Volte: [phone] Desk: [phone] * End of Shift Note - Gracie Estrada RN - 02/08/2021 6:21 AM CDT End of Shift Summary and Plan of Care Pt A&Ox4. RA. A-fib on tele. Pt denied pain. Frausto in place. VSS. Pt rested throughout the night. No acute events. Goals per Patient Condition Fall Prevention Plan Patient will remain free from injury related to falls. See the Daily cares/safety flowsheet for intervention documentation. Skin Integrity Plan Patient skin integrity maintained. See integumentary daron wsheet for intervention documentation. Goals/Plan for Shift Patient/Family stated goal for shift: rest Nursing goal for shift: rest, maintain skin integrity Plan: fall precautions, q2 turns, cluster care Goals/Plan for Hospital Stay Patient/Family stated goal for hospital stay: come through this and be able to w alk Nursing goal for hospital stay: pt safety, pt comfort Plan: fall education, bed alarm use, education of pain scale, explain POC * End of Shift Note - Mary Vogel RN - 02/07/2021 5:38 PM CDT End of Shift Summary and Plan of Care A+O. GARCIA. Left sided weakness and numbness. No c/o pain. x2 assist with ceiling lift to chair. Tolerating diet. Incontinent. x1 BM. Frausto in place. Tele Afib. Goals per Patient Condition Fall Prevention Plan Patient will remain free from injury related to falls. See the Daily cares/safety flowsheet for intervention documentation. Skin Integrity Plan Patient skin integrity maintained. See integumentary daron wsheet for intervention documentation. Goals/Plan for Shift Patient/Family stated goal for shift: Go back home Nursing goal for shift: maintain patient safety, maintain skin integrity Plan: Fall precautions in place, Q2 turns as tolerated Goals/Plan for Hospital Stay Patient/Family stated goal for hospital stay: come through this and be able to w alk Nursing goal for hospital stay: pt safety, pt comfort Plan: fall education, bed alarm use, education of pain scale, explain POC * Discharge Planning - Bekah Pandya LMSW - 02/07/2021 4:08 PM CDT Discharge Planning Interventions General Discharge Note Anticipated discharge disposition: Rehab facility/ Unit Care [facility]: [facility] Additional discharge planning information: [facility]. SW sent updated progress and therapy notes via Noovo. SW updated pt's family. They are agreeable. SW will continue to follow. Referrals: Finalized Discharge Selection(s): Destination [place] [facility] [address] [address] Accepted Referral(s): Dest[place] [address] [place] [address] Current DME Recommendations per Therapy: PT: Wheelchair OT: DME Provider name (freetext flowsheet) Referrals: Referral SmartLink Referrals Made (flowsheet documentation) Referral Accepted (will be removed because this is captured in Destination activ ity) Discharge Planning Participants: Patient, Children Pt/Family Agreement w/ discharge plan: Yes Patient's preferred [facility] post-discharge list provided and discussed quality ratin gs: Acute Rehab Bekah Pandya LMSW Volte: [phone] Desk: [phone] * Therapy Note - Katie Park, OT - 02/07/2021 2:52 PM CDT 02/07/21 1420 Visit Type Visit Type Treatment OT Visit Info Medical Dx per Physician spinal cord compression Patient/Family Reports rn cleared for OT treatment. Pt awake, willing to partic ipate, motivated to get stronger. OT Received On 02/07/21 Total Treatment Time (min) Start Time 1420 Stop Time 1441 Total Treatment time (min) 21 min Timed Minutes Theract x 16, ADL x 5 Precautions Weight Bearing Status Weight Bearing As Tolerated LLE;Weight Bearing As Tolerate d RLE Back Precautions No Fall Risk Yes Isolation None Supplemental Oxygen on RA PPE Used Yellow precautions (Level 1 mask worn over level 3 mask, eye protection , and gloves) Prior Function Level of [place] Modified independent with ADLs;Modified independent with f unctional transfers;Modified independent with ambulation Receives Help From Family Vocational Retired Pain Assessment Pain Score (denies pain this date.) Vital Signs SpO2 96 % Pulse (!) 110 ((highest observed reading during seated tasks with OT)) ADL Grooming Minimal Assistance;Supervision/Setup Grooming Type of Task Brushing Teeth;Washing, Rinsing and/or Drying the hand Grooming Type of Assistance Setup of grooming supplies;Steadying assistance to p erform all tasks;Verbal cues Grooming comments Pt asked to complete brushing teeth at EOB. Pt with need for CGA-Min A while completed B hand task to open toothpaste and place on brush and needs someone to hold cup for spitting. Pt also needed cues for holding toothpa gary so that he is able to squeeze as was utilizing gross grasp without thumb on left hand and not able to grasp with this positioning. Communication Communication Hearing impairment Bed Mobility Rolling Mod assist to left Supine to Sit Mod assist to left;Verbal cueing required;Bed Rail;HOB elevated Sit to Supine Max assist to right;Verbal cueing required (1 person assist this pm but heavy assist needed) Supine Scooting Dependent/mechanical lift Bed Mobility Comments patient completed supine to sit with Mod A of 1 to left wi th HOB raised. back to bed maximal assistance of one. with head in trendelenbu rg patient bends RLE and pulls with RUE to move up in bed with full assistance o f one therapist this pm. Balance Activity Sitting Surface EOB Sitting Activity static;wt shift;ADL;reaching w/in JOHANA Sitting Time 11-15 min Sitting Assistance min assist;w/UE support Sitting Activity Comments patient completed RUE and LUE one hand reach x 5 each UE and then reaching simultanous with BUEs x 10 reps with rest breaks x 3 and lo ss of balance noted to right x 3 during reach tasks. Pt able to correct with pl acement of hand back onto bed and therapist support of min A. Pt completed groo melani task in seated at EOB. Posture Sitting Posture flexed neck;kyphotic Assessment Assistance Needed Frequent verbal cues (26-50%) Barriers to Discharge Lives alone;Requires caregiver assist;Safety concerns Problem List Decreased ADL participation;Decreased IADL participation;Decreased activity tolerance;Decreased functional mobility;Decreased safety;Decreased stre ngth Timeframe Timeframe STG 3 visits Timeframe LTG 5 visits GOALS Goals Lower Body Dressing;Functional Transfer;Grooming;Strength;Toileting Grooming Goals Grooming STG Goal Status Goal discontinued Grooming STG Moderate Assistance;Standing Grooming LTG Goal Status New goal (previous goal discontinued) Grooming LTG Minimal Cues;Setup/Supervision;Edge of Bed Lower Body Dressing Goals Lower Body Dressing LTG Goal Status Goal continues Lower Body Dressing LTG Minimal Assistance;Adaptive Equipment Toileting Goals Toileting STG Goal Status Goal continues Toileting STG Moderate Assistance Toileting LTG Goal Status Goal continues Toileting LTG Minimal Assistance Functional Transfer Goals Functional Transfer STG Goal Status Goal continues Functional Transfer STG Moderate Assistance Functional Transfer LTG Goal Status Goal continues Functional Transfer LTG Minimal Assistance Strength Goals Strength STG Goal Status Goal continues Strength STG Left;Increase 1/2 muscle grade;In prep for ADLs;In prep for functio nal tasks Strength LTG Goal Status Goal continues Strength LTG Left;Increase 1 muscle grade;In prep for ADLs;In prep for functiona l tasks *PLAN OT Frequency 3-5x/wk Discharge Recommendations Plan Continued OT;Post Acute Care Facility Plan Comments Pt left supine in bed with all needs in reach and fall precautions in place. Care Coordination Care Coordination care coordination x 1 with nursing, Sw and physical therapy Katie Park OTR/L, CLT Occupational Therapist Matti * Therapy Note - Alisa Head, PT - 02/07/2021 1:51 PM CDT 02/07/21 1055 Visit Type Visit Type Treatment PT Visit Info Patient/Family Reports Patient in bed and agreeable to treatment. he has no comp laints of pain or other symptoms PT Received On 02/07/21 PT Visit # 1 Time Calculation Stop Time 1055 Timed Minutes 30 min ther act Precautions Fall Risk Yes PPE Used Yellow precautions (Level 1 mask worn over level 3 mask, eye protection , and gloves) Vital Signs Pulse (!) 127 (highest observed during mobility; 84 bpm supine at rest) Heart Rate Source Monitor Cognition Following Commands Follows one step commands without difficulty Communication Communication Hearing impairment Bed Mobility Rolling Mod assist to left (performed 2x; guillermo care) Supine to Sit Max assist to right;Bed Rail;HOB elevated Sit to Supine 2 person assist;Dependent/mechanical lift Bed Mobility Comments supine<>sit performed 2x Transfers Assistive Device None Squat Pivot Transfers Total assistance;2 person assist;Verbal cueing required (to right, bed elevated; cues for hand and foot placement) Balance Activity Sitting Surface EOB Sitting Activity static;wt shift Sitting Time 6-10 min (~5 min 2x) Sitting Assistance min assist;w/UE support Sitting Activity Comments cues for forward gaze and hand placement Posture Sitting Posture flexed neck;kyphotic LE Ther Ex AAROM Left;6 - 10 reps;Supine Ankle pump Bilateral;6 - 10 reps;Supine;Verbal cues;Tactile cues Quad set Bilateral;6 - 10 reps;Supine;Verbal cues;Tactile cues Glut set 6 - 10 reps;Supine Hip IR/ER Bilateral;6 - 10 reps;Supine;Tactile cues;Verbal cues Patient Education Patient Education PT POC Response to education verbalizes understanding;needs further review *ASSESSMENT Learning Barriers Physical barriers Response to Treatment Fair Response to Treat Comments motivated to participate, no complaints Assistance Needed Frequent verbal cues (26-50%) Problem List Activity tolerance;Bed mobility;Balance;Strength;Safety;Transfers Plan PT Treatment Interventions Functional transfer training;LE strengthening/ROM;End urance training;Patient/family training;Equipment eval/education;Bed mobility;Co mpensatory technique education;Balance;Safety training;Progressive Mobility Progress Progressing toward goals PT Frequency 5-7x/wk PT Plan for next treatment progress mobility as tolerated PT Nursing Communication please assist patient up to recliner daily using overhe ad lift Discharge Recommendations Plan Continued PT;Post Acute Care Facility;OT consult;Rehab Medicine Consult Equipment Recommended Wheelchair Equipment Recommend Purpose to reduce fall risk;to promote functional mobility Care Coordination Care Coordination psychosocial rehabilitation counselor assistance. communication with RN, social wor ker, and HEALTH INFORMATION CODER. Patient left in recliner with all needs within reach and alarm act ivated Alisa Head, PT, DPT Physical Therapist * End of Shift Note - Krista Cast RN - 02/07/2021 6:47 AM CDT End of Shift Summary and Plan of Care Patient A&O X4. Patients BG was 57 beginning of shift; patient ate dinner. BG was then 84. Beginning of shift patient's HR was sustaining 140-160's. Patient asymptomatic. PRN metoprolol given. Patient's HR improved within an hour. HR was sustained 90-110's remainder of shift. Frausto in place; one BM this shift. No complaints of pain overnight. Goals per Patient Condition Fall Prevention Plan Patient will remain free from injury related to falls. See the Daily cares/safety flowsheet for intervention documentation. Skin Integrity Plan Patient skin integrity maintained. See integumentary daron wsheet for intervention documentation. Goals/Plan for Shift Patient/Family stated goal for shift: rest Nursing goal for shift: maintain patient safety, maintain skin integrity Plan: Fall precautions in place, Q2 turns as tolerated Goals/Plan for Hospital Stay Patient/Family stated goal for hospital stay: come through this and be able to w alk Nursing goal for hospital stay: pt safety, pt comfort Plan: fall education, bed alarm use, education of pain scale, explain POC * End of Shift Note - Carrie Stuart RN - 02/06/2021 5:01 PM CDT End of Shift Summary and Plan of Care Pt continues to have loose BMs- nursing to hold all stool softeners. Pt had CT with angio of abdomen. Goals per Patient Condition Fall Prevention Plan Patient will remain free from injury related to falls. See the Daily cares/safety flowsheet for intervention documentation. Skin Integrity Plan Patient skin integrity maintained. See integumentary daron wsheet for intervention documentation. Goals/Plan for Shift Patient/Family stated goal for shift: rest Nursing goal for shift: maintain patient safety, maintain skin integrity Plan: Fall precautions in place, Q2 turns as tolerated Goals/Plan for Hospital Stay Patient/Family stated goal for hospital stay: come through this and be able to w alk Nursing goal for hospital stay: pt safety, pt comfort Plan: fall education, bed alarm use, education of pain scale, explain POC * Therapy Note - Emily Richter COTA - 02/06/2021 2:49 PM CDT 02/06/21 1015 OT Visit Info Attempted but was unable to see patient (date) 02/06/21 Reason patient was not seen Medical status OT reason not seen - extended comment OK to see per RN. Upon arrival pt pulse 11 7. Pt agreeable to therapy pt sits EOB with Max A then HR increased to 157. Pt r eturned to supine RN alerted. NA assists with boosting and rolling pt. Will cont inue to follow as able. 2x CC for time spent with Pt and confering with RN ROSIE Lopez/Shabnam Voalte [phone] * Assessment & Plan Note - Ave Bryson MD - 02/06/2021 1:18 PM CDT Associated Problem(s): Chronic systolic heart failure (HCC) Cardiology consulted EF 30%.Moderately reduced left ventricular systolic function, with an estimated ejection fraction of 25%, Moderate pulmonary hypertension. Estimated PA pressure = 55 mmHg recommending cardiac work up as OP when neurological condition is better defin ed * End of Shift Note - Krista Cast RN - 02/06/2021 6:47 AM CDT End of Shift Summary and Plan of Care Patient A&O X4, VSS. Frausto in place for retention. Incontinent of bowel X2 this shift. Max assist, Q2 turns as tolerated. No acute events. Goals per Patient Condition Fall Prevention Plan Patient will remain free from injury related to falls. See the Daily cares/safety flowsheet for intervention documentation. Skin Integrity Plan Patient skin integrity maintained. See integumentary daron wsheet for intervention documentation. Goals/Plan for Shift Patient/Family stated goal for shift: rest Nursing goal for shift: maintain patient safety, maintain skin integrity Plan: Fall precautions in place, Q2 turns as tolerated Goals/Plan for Hospital Stay Patient/Family stated goal for hospital stay: come through this and be able to w alk Nursing goal for hospital stay: pt safety, pt comfort Plan: fall education, bed alarm use, education of pain scale, explain POC * End of Shift Note - Carrie Stuart RN - 02/05/2021 6:39 PM CDT End of Shift Summary and Plan of Care Pt had three loose BMs this shift- nursing should hold all stool softeners for n ow. Pt's skin on sacrum becoming more red and having more breakdown d/t frequen t BMs. Nursing should use zinc cream and barrier cream cloths. Pt had ultrasound of abdomen and liver. Goals per Patient Condition Fall Prevention Plan Patient will remain free from injury related to falls. See the Daily cares/safety flowsheet for intervention documentation. Skin Integrity Plan Patient skin integrity maintained. See integumentary daron wsheet for intervention documentation. Goals/Plan for Shift Patient/Family stated goal for shift: rest tonight Nursing goal for shift: maintain pt's safety/ maintain skin integrity Plan: implement fall protocol/ turn and reposition every 2 hrs/ check skin condi tion/ discuss treatment care plan Goals/Plan for Hospital Stay Patient/Family stated goal for hospital stay: come through this and be able to w alk Nursing goal for hospital stay: pt safety, pt comfort Plan: fall education, bed alarm use, education of pain scale, explain POC * Assessment & Plan Note - Ariadne Guzman MD - 02/05/2021 3:14 PM CDT Associated Problem(s): Urinary retention (Resolved 02/10/2021) Likely related to spinal mass Frausto placed. Continue catheter care Patient failed clamp trial Urology consulted * Assessment & Plan Note - Ave Bryson MD - 02/05/2021 3:10 PM CDT Associated Problem(s): Hypotension (Resolved 02/09/2021) Improving with better HR control. Likely related to Afib with RVR. Lactate normal. No leukocytosis. Blood cultures no growth to date Chest x-ray no focal consolidation When hypotension acutely worsened patient was started Zosyn but there is no vivi r indication of infection we will d/c * End of Shift Note - Anika Garcia, RN - 02/05/2021 5:35 AM CDT End of Shift Summary and Plan of Care Pt slept quietly. Turned and repositioned. Had 2 BM's loose noted. HR to low 110 's the highest. BP stable. Blood sugar 64 repeat blood sugar check up to 118 aft er drank 2 cups apple juice.. Continue treatment plan of care. Goals per Patient Condition Fall Prevention Plan Patient will remain free from injury related to falls. See the Daily cares/safety flowsheet for intervention documentation. Skin Integrity Plan Patient skin integrity maintained. See integumentary daron wsheet for intervention documentation. Goals/Plan for Shift Patient/Family stated goal for shift: rest tonite Nursing goal for shift: maintain pt's safety/ maintain skin integrity Plan: implement fall protocol/ turn and reposition every 2 hrs/ check skin condi tion/ discuss treatment care plan Goals/Plan for Hospital Stay Patient/Family stated goal for hospital stay: come through this and be able to w alk Nursing goal for hospital stay: pt safety, pt comfort Plan: fall education, bed alarm use, education of pain scale, explain POC * End of Shift Note - Germania Pope, XIOMARA - 02/04/2021 6:25 PM CDT End of Shift Summary and Plan of Care Patient alert and oriented X 4. Denies pain. On tele A fib/tachy. RA. Frausto in p lace for retention. Max assist. Patients HR tachy 120-160's most of shift, howev er, SBP in the 70/80s. Albumin given. NS bolus given. UA + zosyn started. Blood cultures drawn. Echo 25%. CXR neg. Lactate 1.9 and 1.2. VSS Goals per Patient Condition Fall Prevention Plan Patient will remain free from injury related to falls. See the Daily cares/safety flowsheet for intervention documentation. Skin Integrity Plan Patient skin integrity maintained. See integumentary daron wsheet for intervention documentation. Goals/Plan for Shift Patient/Family stated goal for shift: feel better Nursing goal for shift: pt safety, stable VS Plan: consistent rounding on pt, PRN pharmacological interventions, fall and saf ety precautions in place Goals/Plan for Hospital Stay Patient/Family stated goal for hospital stay: come through this and be able to w alk Nursing goal for hospital stay: pt safety, pt comfort Plan: fall education, bed alarm use, education of pain scale, explain POC * Assessment & Plan Note - Ave Bryson MD - 02/04/2021 5:51 PM CDT Associated Problem(s): Thrombocytopenia (HCC) New onset. No previous history Prior to restarting Eliquis patient was on heparin products but currently not o n any heparin. We will hold off on evaluating for HIT Ultrasound abdomen as mentioned Daily CBCs. Improving. INR elevated but patient on eliquis MICHAELA 1:160 non specific. * Assessment & Plan Note - Ave Bryson MD - 02/04/2021 5:51 PM CDT Associated Problem(s): LFT elevation (Resolved 02/09/2021) Unclear etiology. Can be due to the hepatic congestion related to the decompensa tion related to Afib with RVR acute hepatitis panel- negative No previous history of liver disease US showing liver lesion 2.[address] abdomen showing 2.3 cm lesion - likely a hemangioma. Multiple subcentimeter l ow-attenuation lesions. Recommend f/u with repeat CT 3 months * Significant Event - Ave Bryson MD - 02/04/2021 3:53 PM CDT Images from the original note were not included. [facility] Hospitalist - Significant Event Patient Name: Angela Sanches Account No: [id number] Date of : 1940 Date of Admission: 01/26/2021 7:39 PM Mr. Angela Sanches is a 80 y.o. male who was admitted on 01/26/2021 with left-side d weakness, MRI showing long segment cord expansion from cervical spinal quality to upper thoracic spine. Principal Problem: Spinal cord compression (HCC) Active Problems: Spinal cord mass (HCC) Cervical myelopathy (HCC) Essential hypertension PAF (paroxysmal atrial fibrillation) (HCC) Hemiplegia (HCC) UTI (urinary tract infection) T2DM (type 2 diabetes mellitus) (HCC) BAM (obstructive sleep apnea) Diabetic polyneuropathy associated with type 2 diabetes mellitus (HCC) Constipation Patient's blood pressure has been soft for the past 2 days. I was informed that the patient systolic dropped to 80s at around noon. Patient was not on telemet ry and patient has a history of atrial fibrillation. Therefore patient was plac ed on telemetry and I went to the patient's bedside. Patient mentating well. Pat ient denied any symptoms of dizziness, chest pain or palpitations. Lungs were c lear, there is some pitting edema on bilateral lower extremities. Vitals 80/60m HR 140-150 and irregular. EKG showing atrial fibrillation with RVR and left bu ndle branch block. Given a bolus of 5% albumin. Ordered Lactate, troponin, repe at UA, PT/INR, CBC Blood cultures, XR chest. Started on Empiric Zosyn. Although suspicion for infection is low. I ordered loading dose of digoxin which the p atient did not respond to and Cardiology was consulted for further management. Rafal reina recommended resuming patient's home dose of Metoprolol 300 mg XR daily. BP c ontinued to drop. D/W Dr Galvan, Do not recommend Amiodarone given that the pa vito has long standing Afib and unlikely to convert to NSR. Recommend higher le jossie of care for further management. Critical care was consulted. D/W Dr Ortiz ov er the phone and Dr Ortiz came to the patient's bedside, Given that the patient' s lactate was 1.9 and patient is mentating well, the MAP > 65 Dr Ortiz recommended monitoring patient on the floor. After discussion with Dr Galvan again will patient's home dose of Metoprolol to help with HR. D/W Pharmacy about giving the patient the next dose of Digoxin faster. See my orders for additional details regarding this patients treatment plan. Vital Signs: Temp: 36.7 C (98 F) Pulse: (!) 123 Resp: 20 BP: (!) 71/46 SpO2: 93 % Height: 180.3 cm (5' 11") Weight: 122.7 kg (270 lb 8.1 oz) I/O last 24 Hours: In: 640 [P.O.:640] Out: 1400 [Urine:1400] Physical Exam General: well-developed, well-nourished, and in no apparent acute distress. Head: Normocephalic and atraumatic. Eyes: Conjunctivae are normal. . PERRL. EOMI. CV: normal rate and regular rhythm. No murmurs. Pulm: Effort normal. CTAB. No wheezes/rales/rhonchi. Abdomen: Soft, non-tender to palpation. Normoactive bowel sounds. Neurological: Alert and oriented to person, place, time, and event. Same left si ded weakness Extremities: Pitting edema Derm: No rash on exposed skin Psychiatric: Normal thought content, speech, affect, and mood. Room: [place] [address] Diet: Diet-Consistent Carbohydrate (75 gm) VTE Prevention: Appropriate VTE chemical treatment ordered. Appropriate VTE mec hanical treatment ordered. Code Status: DNR Ave Jurado MD [facility] . * Therapy Note - Katie Park, OT - 02/04/2021 1:53 PM CDT 02/04/21 9056 OT Visit Info Patient/Family Reports RN cleared for OT treatment. Pt awake but initially decl ined therapy. Sons present and patient states he does not want to miss the resident care technician. When given options for therapy bed level patient agreeable to UE Exer cises bed level OT Received On 02/04/21 Total Treatment Time (min) Start Time 1108 Stop Time 1135 Total Treatment time (min) 27 min Timed Minutes Therex x1, care coordination Precautions Weight Bearing Status Weight Bearing As Tolerated LLE;Weight Bearing As Tolerate d RLE Back Precautions No Fall Risk Yes Isolation None Supplemental Oxygen on RA PPE Used Yellow precautions (Level 1 mask worn over level 3 mask, eye protection , and gloves) Home Living Type of Home House Home Layout One level Stairs to enter ramp Lives With Alone Prior Function Level of [place] Modified independent with ADLs;Modified independent with f unctional transfers;Modified independent with ambulation UE Therapeutic Exercises and Therapeutic Activity AROM Bilateral;6-10;Supine;Free weights (weight) (cuff weight for RUE, none weighted LUE) AAROM Left;1-5;Verbal cues;Supine Scapular AROM;1-5;Verbal cues Pt completed ther ex to increase ROM for ADLs and transfers;Activity tolerance f or ADLs and transfers Therapeutic Exer Comments Pt participated in BUE therex bed level this date. At tempted use of theraband but patient unable to maintain local owner operator truck driver on theraband with L UE. cuff weight given to patient unable to maintain local owner operator truck driver right UE this date wit h size of weight so moved to cuff position 2lbs on right. no weight on left. sh oulder flexion, horizontal abduction/adduction, cross body reach in prep for rol ling tasks this date completed as well as elbow through hand. Pt requires frequ ent rest breaks during these tasks and LUE assist/supported at this time. Patient Education Patient Education OT role and POC Response to education verbalizes understanding Assessment Assistance Needed Frequent verbal cues (26-50%) Discharge Recommendations Plan Continued OT;Post Acute Care Facility Care Coordination Care Coordination care coordination x 1 with nursing and physical therapy + time spent during treatment time to gather supplies for activity. Katie Park OTR/MARLENA Flores Occupational Therapist Vo[employer] * Therapy Note - Alisa Head, PT - 02/04/2021 1:47 PM CDT 02/04/21 1330 PT Visit Info Attempted but was unable to see patient (date) 02/04/21 Reason patient was not seen Medical status PT reason not seen - extended comment Discussed case with RN who advises PT defe rral pending cardiac workup. Will continue to follow Vital Signs Pulse (!) 130 Heart Rate Source Monitor Care Coordination Care Coordination scheduled rn rehabilitation assist for treatment Alisa Head, PT, DPT Physical Therapist * End of Shift Note - Xenia Nelson RN - 02/04/2021 6:21 AM CDT End of Shift Summary and Plan of Care Pt is A&O4. No acute events this shift. Pt denies pain. Repositioning encouraged overnight for skin integrity, pt declined. L sided weakness present. Frausto in place, frausto care performed. No BM this shift. Good oral intake. BP soft, other VSS. Awaiting d/c to ARU 02/04. Goals per Patient Condition Fall Prevention Plan Patient will remain free from injury related to falls. See the Daily cares/safety flowsheet for intervention documentation. Skin Integrity Plan Patient skin integrity maintained. See integumentary daron wsheet for intervention documentation. Goals/Plan for Shift Patient/Family stated goal for shift: get some sleep Nursing goal for shift: pt safety, stable VS Plan: consistent rounding on pt, PRN pharmacological interventions, fall and saf ety precautions in place Goals/Plan for Hospital Stay Patient/Family stated goal for hospital stay: come through this and be able to w alk Nursing goal for hospital stay: pt safety, pt comfort Plan: fall education, bed alarm use, education of pain scale, explain POC * End of Shift Note - Kaye Laws RN - 02/03/2021 5:21 PM CDT End of Shift Summary and Plan of Care Pt AOx4, VSS, softer BP. Denies pain. Continued left sided weakness. Bolus 2x gi dale. Worked with OT. Poor appetite. Continued frausto in place. Resting comfortabl y in bed at end of shift. Goals per Patient Condition Fall Prevention Plan Patient will remain free from injury related to falls. See the Daily cares/safety flowsheet for intervention documentation. Skin Integrity Plan Patient skin integrity maintained. See integumentary daron wsheet for intervention documentation. Goals/Plan for Shift Patient/Family stated goal for shift: rest Nursing goal for shift: pt safety/comfort Plan: consistent rounding on pt, PRN pharmacological interventions, fall and saf ety precautions in place Goals/Plan for Hospital Stay Patient/Family stated goal for hospital stay: come through this and be able to w alk Nursing goal for hospital stay: pt safety, pt comfort Plan: fall education, bed alarm use, education of pain scale, explain POC * Therapy Note - Katie Park, OT - 02/03/2021 3:24 PM CDT 02/03/21 1513 Visit Type Visit Type Treatment OT Visit Info Patient/Family Reports Pt seen with RN approval. Supine in bed on arrival. Narciso ling to participate. Pt not really able to articulate how he feels this date. slow responses to commands this date. OT Received On 02/03/21 Total Treatment Time (min) Start Time 1445 Stop Time 1509 Total Treatment time (min) 24 min Timed Minutes Theract x 24 Precautions Weight Bearing Status Weight Bearing As Tolerated LLE;Weight Bearing As Tolerate d RLE Back Precautions No Fall Risk Yes Isolation None Supplemental Oxygen on RA PPE Used Yellow precautions (Level 1 mask worn over level 3 mask, eye protection , and gloves) Prior Function Level of [place] Modified independent with ADLs;Modified independent with f unctional transfers;Modified independent with ambulation Pain Assessment Pain Score 0 (denies pain states, "Just tired and weak") ADL Eating Supervision/Setup Toileting Dependent Toileting comments bed level hygiene and brief management dependent assistance Cognition Arousal/Alertness Appropriate responses to stimuli Attention Span Attends with cues to redirect Memory Appears intact Orientation Level Oriented to person;Oriented to place;Oriented to time;Oriented to situation Following Commands Follows one step commands without difficulty Safety Judgment Decreased awareness of need for assistance;Decreased awareness o f need for safety Insight Decreased awareness of deficits Comments seems slow to process information this date. needs increased time to p rocess commands and repition of transfer steps, etc. Vision - Complex Assessment Vision Intact Yes Glasses Yes;Reading Acuity Able to read name tag without difficulty LUE Assessment LUE Comments AROM: WFL, MMT: 3/5 grossly, slow with movement Bed Mobility Rolling Mod assist to right;Mod assist to left;Verbal cueing required;Bed rails Supine to Sit Max assist to right;Verbal cueing required;Bed Rail;HOB elevated Sit to Supine Max assist to right;Dependent/mechanical lift;Verbal cueing requir ed (1 person this date but heavy assistance) Supine Scooting Dependent/mechanical lift;Verbal cueing required (2 person assist) Transfers Sit to Stand Transfers Dependent/mechanical lift (attempted to just clear bottom for lateral scoot. ) Transfer Comments pt sits EOB SBA-Min A at times. Pt education in sequence for sit to stand/squat and patient attempted to push through UEs to clear bottom for lateral scoot. Unable to clear bottom with 1 assist. anticipate Max A of 2 fo r sit to squat/standing Balance Activity Sitting Surface EOB Sitting Activity static;wt shift;reaching w/in JOHANA Sitting Time 6-10 min Sitting Assistance min assist;SBA Sitting Activity Comments Pt completed One handed and then 2 handed reach activi ty this date with SBA-Min A. At times required Min A. Fatigued rapidly with BU E reach this date requiring rest and increased seated support. Posture Sitting Posture flexed neck;kyphotic Activity Tolerance Activity Tolerance short of breath;fair Activity Tolerance Comments Limited by LLE/LUE weakness and fatigue. UE Therapeutic Exercises and Therapeutic Activity AROM Bilateral;6-10 Scapular AROM;1-5;Verbal cues Patient Education Patient Education OT role and POC, Response to education verbalizes understanding;needs further review Other back to supine in bed at end of session. On movement back to bed patient noted to have had a bowel movement. Pt dependent with hygiene with nursing assi stance for dependent repositioning Assessment Assistance Needed Frequent verbal cues (26-50%) Barriers to Discharge Lives alone;Requires caregiver assist;Safety concerns Problem List Decreased ADL participation;Decreased IADL participation;Decreased activity tolerance;Decreased functional mobility;Decreased safety;Decreased stre ngth GOALS Goals Lower Body Dressing;Functional Transfer;Grooming;Strength;Toileting Discharge Recommendations Plan Continued OT;Post Acute Care Facility Care Coordination Care Coordination coordination of care with RN this date. Katie Park OTR/L, CLT Occupational Therapist [employer] * Nutrition Note - Kaye Mosher RD - 02/03/2021 3:15 PM CDT Nutrition Brief Note [facility] DIAGNOSIS & INTERVENTION: DIAGNOSIS 1 Nutrition Diagnosis 1: NI 2.1 Inadequate oral intake Related To: decreased appetite As Evidenced By: pt's report, mild weight loss Goal: Prevent further unintentional weight loss, Maintain present weight +/- 5%, Patient to consume >75% of meals/supplements Time Frame: Throughout stay Goal Status: ongoing Intervention/Plan 1a: Recommend continue chocolate ensure with bfasts. RD will continue to follow Electronically signed by Kaye Mosher 02/03/2021 3:15 PM * Discharge Planning - Bekah Pandya LMSW - 02/03/2021 9:30 AM CDT Discharge Planning Interventions General Discharge Note Anticipated discharge disposition: Rehab facility/ Unit Care Progression Plan: [facility], auth pending Additional discharge planning information: SW received call from August at [facility] stating they can accept and will start auth today. She is waitin g to hear back from pt's son to confirm they can provide support at ct. SW will continue to follow. Referrals: Finalized Discharge Selection(s): Dest[facility] [place] [facility] [address] [address] Accepted Referral(s): Dest[facility] [place] [facility] [address] [address] Pending - Request Sent Referral(s): Destination [facility] [address] [place] [address] Current DME Recommendations per Therapy: PT: Wheelchair OT: DME Provider name (freetext flowsheet) Referrals: Referral [facility] Referrals Made (flowsheet documentation) Referral Accepted (will be removed because this is captured in Destination activ ity) Discharge Planning Participants: Patient, Children Pt/Family Agreement w/ discharge plan: Yes Patient's preferred CMS post-discharge list provided and discussed quality ratin gs: [phone] Desk: [id number] * End of Shift Note - Deirdre Alberto RN - 02/03/2021 3:57 AM CDT End of Shift Summary and Plan of Care VSS. A&Ox4. BG well-controlled. Slept well throughout night. Goals per Patient Condition Fall Prevention Plan Patient will remain free from injury related to falls. See the Daily cares/safety flowsheet for intervention documentation. Skin Integrity Plan Patient skin integrity maintained. See integumentary daron wsheet for intervention documentation. Goals/Plan for Shift Patient/Family stated goal for shift: sleep Nursing goal for shift: Maintain pt safety; promote rest/relaxation Plan: fall precautions in place; cluster cares Goals/Plan for Hospital Stay Patient/Family stated goal for hospital stay: come through this and be able to w alk Nursing goal for hospital stay: pt safety, pt comfort Plan: fall education, bed alarm use, education of pain scale, explain POC * End of Shift Note - Mary Vogel RN - 02/02/2021 6:20 PM CDT End of Shift Summary and Plan of Care A+O. GARCIA. LLE weaker. x2 assist with ceiling lift to chair. No c/o pain. x1 BM. Frausto in place. Notified Neuro of new MS labs that resulted. Goals per Patient Condition Fall Prevention Plan Patient will remain free from injury related to falls. See the Daily cares/safety flowsheet for intervention documentation. Skin Integrity Plan Patient skin integrity maintained. See integumentary daron wsheet for intervention documentation. Goals/Plan for Shift Patient/Family stated goal for shift: Go to rehab Nursing goal for shift: Maintain pt safety; promote rest/relaxation Plan: fall precautions in place; cluster cares Goals/Plan for Hospital Stay Patient/Family stated goal for hospital stay: come through this and be able to w alk Nursing goal for hospital stay: pt safety, pt comfort Plan: fall education, bed alarm use, education of pain scale, explain POC * Therapy Note - Alisa Head, PT - 02/02/2021 3:40 PM CDT 02/02/21 1505 Visit Type Visit Type Treatment PT Visit Info Patient/Family Reports Patient in bed and agreeable to treatment. He reports fat igue PT Received On 02/02/21 Time Calculation Stop Time 1505 Precautions Fall Risk Yes Isolation None PPE Used Yellow precautions (Level 1 mask worn over level 3 mask, eye protection , and gloves) Cognition Overall Cognitive Status WFL Bed Mobility Rolling Min assist to left;Bed rails Supine to Sit 2 person assist (MAX A x1 and MIN A x1) Sit to Supine 2 person assist (MAX A x2) Transfers Transfer Comments patient scooted to edge of bed in preparation for transfer, bu t then reported he needed to use the bedpan. Patient was assisted to supine and assisted to bed berman. hand-off given to RN and HEALTH INFORMATION CODER Balance Activity Sitting Surface EOB Sitting Activity static;wt shift Sitting Time 0-5 min (cues for upright posture and weight shift) Sitting Assistance min assist;w/UE support (CGA-SBA) Posture Sitting Posture flexed neck;kyphotic Activity Tolerance Activity Tolerance short of breath;fair LE Ther Ex AAROM Left;6 - 10 reps;Supine (knee& hip flexion and hip abduction/adduction) Ankle pump Bilateral;6 - 10 reps;Supine;Verbal cues;Tactile cues Quad set Bilateral;6 - 10 reps;Supine;Verbal cues;Tactile cues Glut set 6 - 10 reps;Supine (cues to avoid valsalva) Patient Education Patient Education PT POC Response to education verbalizes understanding *ASSESSMENT Learning Barriers Physical barriers Response to Treatment Fair Response to Treat Comments motivated to participate, no complaints Assistance Needed Occasional verbal cues (10-25%) Problem List Activity tolerance;Bed mobility;Balance;Strength;Safety;Transfers Plan Pt/Family Goal to go home PT Treatment Interventions Functional transfer training;LE strengthening/ROM;End urance training;Patient/family training;Equipment eval/education;Bed mobility;Co mpensatory technique education;Balance;Safety training;Progressive Mobility PT Frequency 5x/wk PT Plan for next treatment progress mobility as tolerated PT Nursing Communication please assist patient up to recliner daily using a hoye r lift Discharge Recommendations Plan Continued PT;Post Acute Care Facility;OT consult;Rehab Medicine Consult Equipment Recommended Wheelchair Equipment Recommend Purpose to reduce fall risk;to promote functional mobility Care Coordination Care Coordination communication with RN and HEALTH INFORMATION CODER Alisa Head PT, DPT Physical Therapist * Therapy Note - Maryan Quinones OT - 02/02/2021 1:30 PM CDT 02/02/21 1318 Visit Type Visit Type Treatment OT Visit Info Initial OT Visit On 01/30/21 Patient/Family Reports Seen with RN approval. Pt seated in recliner upon OT arri erich and agreeable to treatment. OT Received On 02/02/21 Total Treatment Time (min) Actual time (if diff than calculation) 28 min Timed Minutes ADLs 18 min, ther ex 10 min Precautions Back Precautions No Fall Risk Yes Isolation None Supplemental Oxygen on RA PPE Used Yellow precautions (Level 1 mask worn over level 3 mask, eye protection , and gloves) Pain Assessment Pain Score 0 ADL Grooming Supervision/Setup (seated in recliner) Grooming Type of Task Brushing Teeth;Washing, Rinsing and/or Drying the face;Was adriano, Rinsing and/or Drying the hand Grooming Type of Assistance Setup of grooming supplies Lower Body Dressing Minimal Assistance Lower Body Dressing, Type of Clothing Left sock;Right sock Lower Body Dressing Type of Assistance Patient used assistive device;Physical as sistance;Setup of supplies Lower Body comments Pt re-educated on use of warehouse and receiving supervisor and sock aid this date. Pt demos fair ability to use warehouse and receiving supervisor to doff BLE socks seated in recliner. Pt requi res increased time to don sock onto sock aid due to decreased strength in LUE gonsalez nd. Pt requirers min A to pull on sock aid to finish donning sock on BLE due to decreased BUE strength. Pt requires frequent rest breaks during lower body dress ing due to SOB and fatigue. Cognition Overall Cognitive Status WFL Communication Communication No Limitation Bed Mobility Bed Mobility Comments Not assessed. Pt seated in recliner pre/post session. Activity Tolerance Activity Tolerance fair Activity Tolerance Comments Limited by LLE/LUE weakness and fatigue. Sitting Level Activity Tolerance Activity Tolerance fair;short of breath Activity Tolerance Time 21-25 min Rest Breaks Other (comment) (frequent rest breaks) Activity ADL;exercise UE Therapeutic Exercises and Therapeutic Activity AROM Bilateral;11-15;Sitting Pt completed ther ex to increase ROM for ADLs and transfers;Upper body strength for ADLs and transfers;Activity tolerance for ADLs and transfers Coordination Exercises/Activity Pt participated in seated BUE AROM exercises in all planes x 2 sets. Pt fatigues quickly and demos increased LUE weakness with d ifficulty performing LUE ROM exercises towards end of session due to fatigue. Pt requires min A to support LUE at the elbow for full completion of exercises. Pt requires frequent rest breaks during ther ex. Patient Education Patient Education OT POC, continued use of hand helper Response to education verbalizes understanding Other Pt seated in recliner upon completion of session with fall precautions in place, all needs within reach and verbalization of comfort. Assessment Response to Treatment Fair Assistance Needed Occasional verbal cues (10-25%) Barriers to Discharge Lives alone;Requires caregiver assist;Safety concerns Problem List Decreased ADL participation;Decreased IADL participation;Decreased activity tolerance;Decreased functional mobility;Decreased safety;Decreased stre ngth Timeframe Timeframe STG 3 visits Timeframe LTG 5 visits GOALS Goals Lower Body Dressing;Functional Transfer;Grooming;Strength;Toileting Grooming Goals Grooming STG Goal Status Goal continues Grooming STG Moderate Assistance;Standing Grooming LTG Goal Status Goal continues Grooming LTG Minimal Assistance;Standing Lower Body Dressing Goals Lower Body Dressing STG Goal Status Goal achieved Lower Body Dressing STG Maximal Assistance;Adaptive Equipment Lower Body Dressing LTG Goal Status Goal continues (continue for consistency ) Lower Body Dressing LTG Minimal Assistance;Adaptive Equipment Toileting Goals Toileting STG Goal Status Goal continues Toileting STG Moderate Assistance Toileting LTG Goal Status Goal continues Toileting LTG Minimal Assistance Functional Transfer Goals Functional Transfer STG Goal Status Goal continues Functional Transfer STG Moderate Assistance Functional Transfer LTG Goal Status Goal continues Functional Transfer LTG Minimal Assistance Strength Goals Strength STG Goal Status Goal continues Strength STG Left;Increase 1/2 muscle grade;In prep for ADLs;In prep for functio nal tasks Strength LTG Goal Status Goal continues Strength LTG Left;Increase 1 muscle grade;In prep for ADLs;In prep for functiona l tasks *PLAN OT Treatment Interventions ADL retraining;Functional transfer training;UE streng thening/ROM;Functional activity tolerance OT Frequency 3-5x/wk Discharge Recommendations Plan Continued OT;Post Acute Care Facility Care Coordination Care Coordination Consulted with RN prior to session. Maryan Adams OTR/L Occupational Therapist [employer] * Discharge Planning - Bekah Pandya LMSW - 02/02/2021 12:27 PM CDT Discharge Planning Interventions General Discharge Note Anticipated discharge disposition: Rehab facility/ Unit Care Progression Plan: [facility] Additional discharge planning information: THOMAS called Selena at [facility] to f/ u on referral. THOMAS left vm w/ call back number requesting return call. 1308: THOMAS received vm from Selena stating they will not have an open bed until ea rly next week. 1400: THOMAS updated attending. She states that is too long to wait and that pt is r bette for dc. 1445: THOMAS called pt's son, Karel and updated him. He states he will discuss other facilities w/ his brother and get back w/ SW. 1538: THOMAS received call from pt's son, Karel stating they want to try [facility] in [place]. THOMAS sent referral via [employer]. THOMAS will continue to follow. Referrals: Pending - Request Sent Referral(s): Destination [facility] [address] [place] [address] [address] Current DME Recommendations per Therapy: PT: Wheelchair OT: DME Provider name (freetext flowsheet) Referrals: Referral SmartLink Referrals Made (flowsheet documentation) Referral Accepted (will be removed because this is captured in Destination activ ity) Discharge Planning Participants: Patient, Children Pt/Family Agreement w/ discharge plan: Yes Patient's preferred [facility] post-discharge list provided and discussed quality ratin gs: Acute Rehab Bekah Pandya LMSW [place]: [phone] Desk: [phone] * Therapy Note - Alisa Head PT - 02/02/2021 11:32 AM CDT 02/02/21 1040 PT Visit Info Attempted but was unable to see patient (date) 02/02/21 Reason patient was not seen With other staff (OT) PT reason not seen - extended comment will re-attempt, as able Alisa Head PT, DPT Physical Therapist * End of Shift Note - Deirdre Alberto RN - 02/02/2021 4:41 AM CDT End of Shift Summary and Plan of Care VSS. A&Ox4. BG better controlled this shift. Sleep protected VS. 1 BM. No acute events. Goals per Patient Condition Fall Prevention Plan Patient will remain free from injury related to falls. See the Daily cares/safety flowsheet for intervention documentation. Skin Integrity Plan Patient skin integrity maintained. See integumentary daron wsheet for intervention documentation. Goals/Plan for Shift Patient/Family stated goal for shift: rest Nursing goal for shift: Maintain pt safety; promote rest/relaxation Plan: fall precautions in place; cluster cares Goals/Plan for Hospital Stay Patient/Family stated goal for hospital stay: come through this and be able to w alk Nursing goal for hospital stay: pt safety, pt comfort Plan: fall education, bed alarm use, education of pain scale, explain POC * End of Shift Note - Gertrude Mauricio RN - 02/01/2021 4:48 PM CDT End of Shift Summary and Plan of Care No changes. Pt A&Ox3. Left side continues to be weaker. Pt denies pain. Enema given, small BM today. Frausto in place for retention. Lactate ordered due to BPA, 3.7. Hosp notified, 1L NS ordered. Pt turned in bed. Awaiting final LP results. Goals per Patient Condition Fall Prevention Plan Patient will remain free from injury related to falls. See the Daily cares/safety flowsheet for intervention documentation. Skin Integrity Plan Patient skin integrity maintained. See integumentary daron wsheet for intervention documentation. Goals/Plan for Shift Patient/Family stated goal for shift: rest Nursing goal for shift: Maintain pt safety; promote rest/relaxation Plan: fall precautions in place; cluster cares Goals/Plan for Hospital Stay Patient/Family stated goal for hospital stay: come through this and be able to w alk Nursing goal for hospital stay: pt safety, pt comfort Plan: fall education, bed alarm use, education of pain scale, explain POC * Discharge Planning - Bekah Pandya LMSW - 02/01/2021 1:21 PM CDT Discharge Planning Interventions General Discharge Note Anticipated discharge disposition: Rehab facility/ Unit Care Progression Plan: ARU-need pref Additional discharge planning information: THOMAS was updated in rounds that it woul d be best to discuss dc planning w/ pt's son. THOMAS called pt's sonJanusz to get AR U preference. THOMAS left w/ call back number requesting return call. [id number]: THOMAS received call from pt's son. He states their preference is [facility] in [place]. THOMAS sent referral via [employer]. THOMAS will continue to follow. Current DME Recommendations per Therapy: PT: Wheelchair OT: DME Provider name (freetext flowsheet) Referrals: Referral SmartLink Referrals Made (flowsheet documentation) Referral Accepted (will be removed because this is captured in Destination activ ity) Discharge Planning Participants: Patient, Children Pt/Family Agreement w/ discharge plan: Yes Patient's preferred [facility] post-discharge list provided and discussed quality ratin gs: Acute Rehab Bekah Pandya LMSW [place]: [phone] Desk: [phone] * End of Shift Note - Deirdre Alberto RN - 02/01/2021 3:44 AM CDT End of Shift Summary and Plan of Care A&Ox4. VSS. 1 small BM. [address] in place. Max assist. Slept well throughout night. No acute events. Goals per Patient Condition Fall Prevention Plan Patient will remain free from injury related to falls. See the Daily cares/safety flowsheet for intervention documentation. Skin Integrity Plan Patient skin integrity maintained. See integumentary daron wsheet for intervention documentation. Goals/Plan for Shift Patient/Family stated goal for shift: sleep Nursing goal for shift: Maintain pt safety; promote rest/relaxation Plan: fall precautions in place; cluster cares Goals/Plan for Hospital Stay Patient/Family stated goal for hospital stay: come through this and be able to w alk Nursing goal for hospital stay: pt safety, pt comfort Plan: fall education, bed alarm use, education of pain scale, explain POC * End of Shift Note - Mary Vogel RN - 01/31/2021 5:36 PM CDT End of Shift Summary and Plan of Care A+O. GARCIA. Left side weaker. No c/o pain. Abd xray completed. x1 tap water enema. Incontinent, x2 small BM's. Frausto in place. x2 assist ceiling lift to chair. St arted Eliquis. No c/o pain. Goals per Patient Condition Fall Prevention Plan Patient will remain free from injury related to falls. See the Daily cares/safety flowsheet for intervention documentation. Skin Integrity Plan Patient skin integrity maintained. See integumentary daron wsheet for intervention documentation. Goals/Plan for Shift Patient/Family stated goal for shift: Have a BM Nursing goal for shift: Maintain pt safety; promote rest/relaxation Plan: fall precautions in place; cluster cares Goals/Plan for Hospital Stay Patient/Family stated goal for hospital stay: come through this and be able to w alk Nursing goal for hospital stay: pt safety, pt comfort Plan: fall education, bed alarm use, education of pain scale, explain POC * Therapy Note - Alyson Tijerina, PT - 01/31/2021 2:17 PM CDT 01/31/21 1412 PT Visit Info Patient/Family Reports Pt agreeable to participate with PT, RN approved activity as tolerated, pt just finished getting cleaned up in supine. PT Received On 01/31/21 Time Calculation Timed Minutes 15 min ther act, care coordination x1 for tech assist and set up Precautions Fall Risk Yes Isolation None Supplemental Oxygen on RA PPE Used Yellow precautions (Level 1 mask worn over level 3 mask, eye protection , and gloves) Cognition Orientation Level Oriented to person;Oriented to place;Oriented to situation;Thony ented to time Following Commands Follows all commands and directions without difficulty Communication Communication Comment WFL Bed Mobility Supine to Sit Mod assist to right;2 person assist Transfers Squat Pivot Transfers 2 person assist;Verbal cueing required;Maximum assistance Transfer Comments Pt performed squat pivot transfer max assist x2 to R side, abl e to weight bear through R LE and able to assist by pushing up with R UE, consta nt verbal cues for sequencing, tech present to assist with transfer LE Ther Ex Ankle pump Bilateral;6 - 10 reps;Sitting LAQ Bilateral;6 - 10 reps;Sitting Hip AB/AD Bilateral;6 - 10 reps (reclined, AAROM with L LE) Hip IR/ER Bilateral;6 - 10 reps;Sitting Other Pt performed above ther ex sitting and reclined in chair, pt requires verb al cues to breathe with activity pt tends to hold his breath. Pt has increased e ffort for all movements with L LE. Patient Education Patient Education PT POC Response to education verbalizes understanding;needs further review Other Pt left reclined in chair, lift pad in place, alarm in place, call light i n reach, RN aware. *PLAN PT Plan for next treatment progress mobility as tolerated PT Nursing Communication please assist patient up to recliner daily using a hoye r lift Discharge Recommendations Plan Continued PT;Post Acute Care Facility Care Coordination Care Coordination ccx1 for tech assist and set up Alyson Tijerina PT, DPT Physical Therapist MATTI * Therapy Note - Stacie Maryan Rios, OT - 01/31/2021 1:08 PM CDT 01/31/21 1257 Visit Type Visit Type Treatment OT Visit Info Initial OT Visit On 01/30/21 Patient/Family Reports Seen with RN approval. Pt supine in bed upon OT arrival a nd agreeable to treatment. OT Received On 01/31/21 Total Treatment Time (min) Start Time 1017 Stop Time 1035 Total Treatment time (min) 18 min Timed Minutes ther ex 18 min Precautions Back Precautions No Fall Risk Yes Isolation None Supplemental Oxygen RA PPE Used Yellow precautions (Level 1 mask worn over level 3 mask, eye protection , and gloves) Pain Assessment Pain Score 0 Cognition Overall Cognitive Status WFL Arousal/Alertness Appropriate responses to stimuli Attention Span Appears intact Memory Appears intact Orientation Level Oriented to person;Oriented to place;Oriented to situation;Thony ented to time Following Commands Follows all commands and directions without difficulty Safety Judgment Decreased awareness of need for safety Insight Fully aware of deficits Problem Solving Able to problem solve independently Communication Communication No Limitation Bed Mobility Supine to Sit Mod assist to right Sit to Supine Mod assist to right Bed Mobility Comments Pt requires assistance for management of LLE in/out of bed due to weakness. Balance Activity Sitting Surface EOB Sitting Activity static;wt shift Sitting Time 16-20 min Sitting Assistance SBA;w/UE support Sitting Activity Comments Pt performed ther ex seated EOB SBA with and w/o BUE s upport. Activity Tolerance Activity Tolerance fair Activity Tolerance Comments Limited by LLE/LUE weakness. UE Therapeutic Exercises and Therapeutic Activity AROM Bilateral;11-15;Sitting Exercise tools Hand helper Hand gripper comments Pt given hand helper and demos good ability to perform exe rcises with yellow band x 10 reps, x 2 sets. Pt encouraged to perform 2-3x/day w ith good receptivity to education. Pt completed ther ex to increase ROM for ADLs and transfers;Upper body strength for ADLs and transfers;Activity tolerance for ADLs and transfers Coordination Exercises/Activity Pt performed BUE AROM exercises seated EOB in al l planes x 2 sets. Pt requires frequent rest breaks throughout exercises due to fatigue and SOB. Pt educated on deep breathing techniques. Patient Education Patient Education OT POC, hand helper use, deep breathing techniques Response to education verbalizes understanding;demonstrates understanding Other Pt supine in bed upon completion of session with XRAY present. Handoff to XRAY. Assessment Response to Treatment Good Assistance Needed Occasional verbal cues (10-25%) Barriers to Discharge Lives alone;Requires caregiver assist;Safety concerns Problem List Decreased ADL participation;Decreased IADL participation;Decreased activity tolerance;Decreased functional mobility;Decreased safety;Decreased stre ngth Timeframe Timeframe STG 3 visits Timeframe LTG 5 visits GOALS Goals Lower Body Dressing;Functional Transfer;Grooming;Strength;Toileting Grooming Goals Grooming STG Goal Status Goal continues Grooming STG Moderate Assistance;Standing Grooming LTG Goal Status Goal continues Grooming LTG Minimal Assistance;Standing Lower Body Dressing Goals Lower Body Dressing STG Goal Status Goal continues Lower Body Dressing STG Maximal Assistance;Adaptive Equipment Lower Body Dressing LTG Goal Status Goal continues Lower Body Dressing LTG Minimal Assistance;Adaptive Equipment Toileting Goals Toileting STG Goal Status Goal continues Toileting STG Moderate Assistance Toileting LTG Goal Status Goal continues Toileting LTG Minimal Assistance Functional Transfer Goals Functional Transfer STG Goal Status Goal continues Functional Transfer STG Moderate Assistance Functional Transfer LTG Goal Status Goal continues Functional Transfer LTG Minimal Assistance Strength Goals Strength STG Goal Status Goal continues Strength STG Left;Increase 1/2 muscle grade;In prep for ADLs;In prep for functio nal tasks Strength LTG Goal Status Goal continues Strength LTG Left;Increase 1 muscle grade;In prep for ADLs;In prep for functiona l tasks *PLAN OT Treatment Interventions ADL retraining;Functional transfer training;UE streng thening/ROM;Functional activity tolerance OT Frequency 3-5x/wk Discharge Recommendations Plan Continued OT;Post Acute Care Facility Care Coordination Care Coordination Consulted with RN prior to session. Maryan Adams OTR/L Occupational Therapist [employer] * Discharge Planning - Bekah Pandya LMSW - 01/31/2021 12:51 PM CDT Discharge Planning Interventions General Discharge Note Anticipated discharge disposition: SNF Medicare Certified (vs ARU) Care Progression Plan: TBD-likely SNF vs ARU? Additional discharge planning information: SW was updated by PMR MILITARY SCIENCE TEACHER that she saw pt re: rehab consult. SW will watch for note to determine dispo. SW will contin ue to follow. Bekah Pandya LMSW [place]: [phone] Desk: [phone] * Assessment & Plan Note - Ave Bryson MD - 01/31/2021 12:25 PM CDT Associated Problem(s): Constipation (Resolved 02/09/2021) No bowel movement since admission. X-ray KUB showing fecal impaction Improving Continue laxatives. * End of Shift Note - Deirdre Alberto RN - 01/31/2021 6:13 AM CDT End of Shift Summary and Plan of Care VSS. A&Ox4. Max assist. Denies pain. Pleasant and cooperative. Slept well throughout night. No acute events. Goals per Patient Condition Fall Prevention Plan Patient will remain free from injury related to falls. See the Daily cares/safety flowsheet for intervention documentation. Skin Integrity Plan Patient skin integrity maintained. See integumentary daron wsheet for intervention documentation. Goals/Plan for Shift Patient/Family stated goal for shift: rest Nursing goal for shift: Maintain pt safety; promote rest/relaxation Plan: fall precautions in place; cluster cares Goals/Plan for Hospital Stay Patient/Family stated goal for hospital stay: come through this and be able to w alk Nursing goal for hospital stay: pt safety, pt comfort Plan: fall education, bed alarm use, education of pain scale, explain POC * End of Shift Note - Carrie Stuart RN - 01/30/2021 6:09 PM CDT End of Shift Summary and Plan of Care Pt was moved to room n213 for access to ceiling lift. After transfer pt was put into chair and tolerated it well. Blood sugars remain elevated from 200-300 with each meal. Goals per Patient Condition Fall Prevention Plan Patient will remain free from injury related to falls. See the Daily cares/safety flowsheet for intervention documentation. Skin Integrity Plan Patient skin integrity maintained. See integumentary daron wsheet for intervention documentation. Goals/Plan for Shift Patient/Family stated goal for shift: rest Nursing goal for shift: Maintain pt safety; promote rest/relaxation Plan: fall precautions in place; cluster cares Goals/Plan for Hospital Stay Patient/Family stated goal for hospital stay: come through this and be able to w alk Nursing goal for hospital stay: pt safety, pt comfort Plan: fall education, bed alarm use, education of pain scale, explain POC * Therapy Note - Iliana Arriaga, OT - 01/30/2021 2:34 PM CDT 01/30/21 1110 Visit Type Visit Type Treatment OT Visit Info Initial OT Visit On 01/30/21 Assessed for Rehab Yes Past medical history reviewed through chart review: Yes Total Treatment Time (min) Start Time 1110 Stop Time 1143 Total Treatment time (min) 33 min Timed Minutes 30 ADL Precautions Back Precautions No Fall Risk Yes Isolation None ADL Lower Body Dressing Minimal Assistance Lower Body Dressing, Type of Clothing Left sock;Right sock Lower Body Dressing Type of Assistance Patient used assistive device;Retrieved c lothing;Setup of supplies;Steadying assistance Lower Body comments Pt educated on LB dressing with AE. Pt educated on use of re acher and sock aid. able to remove socks independently in a timely manner. Incre ased time to load sock on to sock aid due to LUE grasp. Occasional CGA provided for sitting balance when pt was unable to utilize UE for support. Cognition Overall Cognitive Status WFL Bed Mobility Supine to Sit Mod assist to left Sit to Supine Mod assist to right Supine Scooting Max A;Mod A Bed Mobility Comments pt able to assist in supine scooting with 3/4 limbs. Transfers Transfer Comments did not attempt today, RN reports she has ordered a sling for coleen use Balance Activity Sitting Surface EOB Sitting Activity static;wt shift;ADL Sitting Time 21-25 min Sitting Assistance SBA;w/UE support;min assist Activity Tolerance Activity Tolerance fair Patient Education Patient Education OT POC, LB dressing with AE Response to education demonstrates understanding;needs further review Assessment Response to Treatment Good Assistance Needed Occasional verbal cues (10-25%) GOALS Goals Lower Body Dressing;Functional Transfer;Grooming;Strength;Toileting *PLAN Patient/Caregiver Goal "get to walking again" Pt/Family involved in Plan of Care yes OT Treatment Interventions ADL retraining;Functional transfer training;UE streng thening/ROM;Functional activity tolerance OT Frequency 3-5x/wk Discharge Recommendations Plan Continued OT;Post Acute Care Facility Anam Arriaga OTR/L * End of Shift Note - Miroslava Floyd RN - 01/30/2021 6:46 AM CDT End of Shift Summary and Plan of Care No acute events. 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 No new orders--pt offered PRN aguiar ppository--pt refused. Bowel sounds audible and hypoactive. Pt reports he is not passing gas. No other significant events. No complaints of pain. VSS. See chart ing for details. Goals per Patient Condition Fall Prevention Plan Patient will remain free from injury related to falls. See the Daily cares/safety flowsheet for intervention documentation. Skin Integrity Plan Patient skin integrity maintained. See integumentary daron wsheet for intervention documentation. Goals/Plan for Shift Patient/Family stated goal for shift: rest Nursing goal for shift: Maintain pt safety; promote rest/relaxation Plan: fall precautions in place; cluster cares Goals/Plan for Hospital Stay Patient/Family stated goal for hospital stay: come through this and be able to w alk Nursing goal for hospital stay: pt safety, pt comfort Plan: fall education, bed alarm use, education of pain scale, explain POC * End of Shift Note - Carrie Stuart RN - 01/29/2021 6:12 PM CDT End of Shift Summary and Plan of Care Pt sat in chair with two person+ assist although would not recommend without hoy er lift d/t pt's weakness. VSS. Goals per Patient Condition Fall Prevention Plan Patient will remain free from injury related to falls. See the Daily cares/safety flowsheet for intervention documentation. Skin Integrity Plan Patient skin integrity maintained. See integumentary daron wsheet for intervention documentation. Goals/Plan for Shift Patient/Family stated goal for shift: rest Nursing goal for shift: pt safety, promote rest, pain control Plan: prn pain meds, be alaram on, call light in reach Goals/Plan for Hospital Stay Patient/Family stated goal for hospital stay: come through this and be able to w alk Nursing goal for hospital stay: pt safety, pt comfort Plan: fall education, bed alarm use, education of pain scale, explain POC * Therapy Note - Alisa Head, PT - 01/29/2021 10:53 AM CDT 01/29/21 1035 Visit Type Visit Type Evaluation PT Visit Info Initial PT Visit On 01/29/21 Assessed for Rehab Yes Past medical history reviewed through chart review: Yes Referral Reason weakness Ordering practitioner Gracie Rao DO Comorbidities pertaining to therapy diagnosis Past Medical History: CAD (coronary artery disease) Cognitive impairment Possible dementia, self reported Essential hypertension GERD (gastroesophageal reflux disease) Hyperlipidemia BAM on CPAP PAF (paroxysmal atrial fibrillation) (HCC) PUD (peptic ulcer disease) PVD (peripheral vascular disease) (HCC) T2DM (type 2 diabetes mellitus) (HCC) Urinary retention Patient/Family Reports Patient in bed and agreeable to evaluation. he reports th at he has not ambulated in one week PT Received On 01/29/21 PT Visit # 1 Time Calculation Start Time 09 Precautions Fall Risk Yes Isolation None Supplemental Oxygen RA PPE Used Yellow precautions (Level 1 mask worn over level 3 mask, eye protection , and gloves) Home Living Type of Home House Home Layout One level Stairs to enter ramp Bathroom Shower/Tub (reports son is installing walk-in shower now) Home Assistive Device Rolling walker;Straight cane;Crutches (has started using a walker reccently) Additional Comments patient typically lives alone but plans to move in with his ex- at discharge into a home with a ramp to enter Prior Function Level of [place] Modified independent with ADLs;Modified independent with f unctional transfers;Modified independent with ambulation Vocational Retired Cognition Overall Cognitive Status WFL Bed Mobility Supine to Sit Stand by assistance;Verbal cueing required;Bed Rail;HOB elevated (increased time to complete; SOB) Transfers Squat Pivot Transfers 2 person assist;Verbal cueing required (MAX A x2 to right; cue for hand placement) Balance Activity Sitting Surface EOB Sitting Activity static Sitting Time 0-5 min Sitting Assistance w/UE support;SBA Sensation Light Touch Impaired Light Touch Area LUE (hand) RUE Assessment RUE Assessment WFL LUE Assessment LUE Assessment X LUE Strength L Shoulder Flexion 4/5 L Elbow Flexion 4/5 RLE Assessment RLE Assessment WFL LLE Assessment LLE Assessment X Strength LLE L Ankle Dorsiflexion 4/5 L Knee Extension 3+/5 LE Ther Ex Ankle pump Bilateral;6 - 10 reps;Sitting Glut set Sitting;1 - 5 reps Patient Education Patient Education PT POC, seated ther exercise Response to education verbalizes understanding *ASSESSMENT Learning Barriers None Response to Treatment Good Response to Treat Comments motivated to participate, no complaints Assistance Needed Occasional verbal cues (10-25%) Problem List Activity tolerance;Bed mobility;Balance;Strength;Safety;Transfers Clinical presentation Evolving Timeframe Timeframe STG 3 visits Timeframe LTG 6 visits *PLAN Pt/Family Goal to go home Pt/Family involved in Plan of Care No family present PT Treatment Interventions Functional transfer training;LE strengthening/ROM;End urance training;Patient/family training;Equipment eval/education;Bed mobility;Co mpensatory technique education;Balance;Safety training;Progressive Mobility PT Frequency 5x/wk PT Plan for next treatment transfers, strengthening PT Nursing Communication please assist patient up to recliner daily using a hoye r lift Discharge Recommendations Plan Rehab Medicine Consult;OT consult;Continued PT;Post Acute Care Facility Equipment Recommended Wheelchair Equipment Recommend Purpose to reduce fall risk;to promote functional mobility Care Coordination Care Coordination communication with RN and HEALTH INFORMATION CODER. room setup Alisa Head PT, DPT Physical Therapist * End of Shift Note - Gracie Estrada RN - 01/29/2021 6:51 AM CDT End of Shift Summary and Plan of Care Pt a&Ox4. RA. Frausto in place and care completed. No c/o pain. Sleep protected vitals. Pt rested peacefully throughout the night. No acute events. Goals per Patient Condition Fall Prevention Plan Patient will remain free from injury related to falls. See the Daily cares/safety flowsheet for intervention documentation. Skin Integrity Plan Patient skin integrity maintained. See integumentary daron wsheet for intervention documentation. Goals/Plan for Shift Patient/Family stated goal for shift: rest Nursing goal for shift: pt safety, promote rest, pain control Plan: prn pain meds, be alaram on, call light in reach Goals/Plan for Hospital Stay Patient/Family stated goal for hospital stay: come through this and be able to w alk Nursing goal for hospital stay: pt safety, pt comfort Plan: fall education, bed alarm use, education of pain scale, explain POC * End of Shift Note - Mary Vogel RN - 01/28/2021 5:20 PM CDT End of Shift Summary and Plan of Care A+O. GARCIA. Left side weaker. Incontinent. Frausto in place. No c/o pain. x2 assist with coleen. Tolerating CC diet. NS and Neuro talked with pt family about MRI res ults and plan. Goals per Patient Condition Fall Prevention Plan Patient will remain free from injury related to falls. See the Daily cares/safety flowsheet for intervention documentation. Skin Integrity Plan Patient skin integrity maintained. See integumentary daron wsheet for intervention documentation. Goals/Plan for Shift Patient/Family stated goal for shift: Talk with my family Nursing goal for shift: Pt safety, promote rest, monitor vitals Plan: Fall precatuions, cluster care, q4 vitals, frequent assessments Goals/Plan for Hospital Stay Patient/Family stated goal for hospital stay: come through this and be able to w alk Nursing goal for hospital stay: pt safety, pt comfort Plan: fall education, bed alarm use, education of pain scale, explain POC * Therapy Note - Maryan Quinones, OT - 01/28/2021 3:57 PM CDT 01/28/21 1243 Visit Type Visit Type Evaluation OT Visit Info Initial OT Visit On 01/28/21 Assessed for Rehab Yes Past medical history reviewed through chart review: Yes Referral Reason OT eval and treat Medical Dx per Physician spinal cord compression Ordering practitioner Gracie Rao DO Comorbidities pertaining to therapy diagnosis Past Medical History: Diagnosis Date CAD (coronary artery disease) Cognitive impairment Possible dementia, self reported Essential hypertension GERD (gastroesophageal reflux disease) Hyperlipidemia BAM on CPAP PAF (paroxysmal atrial fibrillation) (HCC) PUD (peptic ulcer disease) PVD (peripheral vascular disease) (HCC) T2DM (type 2 diabetes mellitus) (HCC) Urinary retention Patient/Family Reports Seen with RN approval. Pt supine in bed upon OT arrival a nd agreeable to treatment. OT Received On 01/28/21 Total Treatment Time (min) Actual time (if diff than calculation) 19 min Timed Minutes OT eval Precautions Back Precautions No Fall Risk Yes Isolation None Supplemental Oxygen RA PPE Used Yellow precautions (Level 3 mask, eye protection, and gloves) Home Living Type of Home House Home Layout One level Stairs to enter ramp Lives With Alone Bathroom Shower/Tub Walk-in shower Bathroom Toilet Raised Bathroom Equipment Grab bars in shower;Shower chair;Grab bars around toilet Home Assistive Device Rolling walker;Straight cane;Crutches (uses walker) Adaptive Equipment/DME None Additional Comments Pt reports that he has been using his walker the past 2-3 we eks due to an increased in weakness. Pt states that he has family that comes ove r to help him occaisonally and also has a home health nurse that comes to assist . Prior Function Level of [place] Modified independent with ADLs;Modified independent with f unctional transfers Receives Help From Family (home health RN 1x/week) Hobbies work in his workshop (haven't done in a few months) Pain Assessment Pain Score 0 ADL Lower Body Dressing Dependent Lower Body Dressing, Type of Clothing Left sock;Right sock Lower Body Dressing Type of Assistance Physical assistance;Threading left leg;Th reading right leg;Retrieved clothing Cognition Arousal/Alertness Appropriate responses to stimuli Attention Span Appears intact Memory Appears intact Orientation Level Oriented to person;Oriented to place;Oriented to situation;Thony ented to time Following Commands Follows all commands and directions without difficulty Safety Judgment Decreased awareness of need for safety Insight Fully aware of deficits Problem Solving Able to problem solve independently Perception Inattention/Neglect Appears intact Initiation Appears intact Motor Planning Appears intact Perseveration Not present Communication Communication No Limitation Vision - Complex Assessment Vision Intact Yes Glasses Yes;Reading Acuity Able to read name tag without difficulty Head Position WDL Diplopia No Attention WNL Sensation Light Touch Intact Proprioception Proprioception Intact RUE Assessment RUE Assessment WFL RUE Comments AROM: WFL, MMT: 4+/5 grossly LUE Assessment LUE Assessment WFL LUE Comments AROM: WFL, MMT: 3/5 grossly Hand Function Dominant Hand/Side Right Gross Grasp Functional Gross Release Functional Coordination Functional Bed Mobility Supine to Sit Mod assist to right;HOB elevated Sit to Supine Mod assist to left Supine Scooting Max A;2 person assist Bed Mobility Comments Pt requires assistance for management of LLE in/out of bed due to inability to independently move leg secondary to weakness. Transfers Transfer Comments Pt attempted to perform sit to stand x 2 trials with max A x 1 and inability to reach partial stand due to increased weakness in BLE/BUE. Furt her transers deferred due to extreme weakness in LLE and decreased safety with rafal frye at this time. Balance Activity Sitting Surface EOB Sitting Activity static;wt shift;ADL Sitting Time 6-10 min Sitting Assistance SBA;min assist;w/UE support (SBA-CGA) Sitting Activity Comments Pt requires intermittent CGA seated EOB due to decreas ed sitting balance without BUE support. Activity Tolerance Activity Tolerance fair Activity Tolerance Comments Limited by LLE/LUE weakness. Patient Education Patient Education OT POC Response to education verbalizes understanding Other Pt supine in bed upon completion of session with fall precautions in place , all needs within reach and verbalization of comfort. Assessment Response to Treatment Fair Assistance Needed Occasional verbal cues (10-25%) Barriers to Discharge Lives alone;Requires caregiver assist;Safety concerns Problem List Decreased ADL participation;Decreased IADL participation;Decreased activity tolerance;Decreased functional mobility;Decreased safety;Decreased stre ngth Timeframe Timeframe STG 3 visits Timeframe LTG 5 visits GOALS Goals Lower Body Dressing;Functional Transfer;Grooming;Strength;Toileting Grooming Goals Grooming STG Goal Status New goal Grooming STG Moderate Assistance;Standing Grooming LTG Goal Status New goal Grooming LTG Minimal Assistance;Standing Lower Body Dressing Goals Lower Body Dressing STG Goal Status New goal Lower Body Dressing STG Maximal Assistance;Adaptive Equipment Lower Body Dressing LTG Goal Status New goal Lower Body Dressing LTG Minimal Assistance;Adaptive Equipment Toileting Goals Toileting STG Goal Status New goal Toileting STG Moderate Assistance Toileting LTG Goal Status New goal Toileting LTG Minimal Assistance Functional Transfer Goals Functional Transfer STG Goal Status New goal Functional Transfer STG Moderate Assistance Functional Transfer LTG Goal Status New goal Functional Transfer LTG Minimal Assistance Strength Goals Strength STG Goal Status New goal Strength STG Left;Increase 1/2 muscle grade;In prep for ADLs;In prep for functio nal tasks Strength LTG Goal Status New goal Strength LTG Left;Increase 1 muscle grade;In prep for ADLs;In prep for functiona l tasks *PLAN Patient/Caregiver Goal "get to walking again" Pt/Family involved in Plan of Care yes OT Treatment Interventions ADL retraining;Functional transfer training;UE streng thening/ROM;Functional activity tolerance OT Frequency 3-5x/wk OT Nursing Communication Please utilize Coleen lift at this time for transfers to /from recliner. Discharge Recommendations Plan Continued OT;Post Acute Care Facility Care Coordination Care Coordination Consulted with RN prior to session. Maryan Adams OTR/L Occupational Therapist [employer] * Nutrition Note - Osmany Parsons RD - 01/28/2021 3:33 PM CDT Nutrition Assessment [facility] DIAGNOSIS & INTERVENTION: DIAGNOSIS 1 Nutrition Diagnosis 1: NI 2.1 Inadequate oral intake Related To: decreased appetite As Evidenced By: pt's report, mild weight loss Goal: Prevent further unintentional weight loss, Maintain present weight +/- 5%, Patient to consume >75% of meals/supplements Time Frame: Throughout stay Goal Status: New goal established Intervention/Plan 1a: Continue with 75 gm Consistent CHO diet and encourage po. Will add Ensure Enlive q day with breakfast per pt preference (roderick) to assist w ith protein /calorie intake. Intervention/Plan 1b: RD will continue to monitor for intake, weight and labs. Malnutrition criteria: Malnutrition Recommendation - Physician Alert Malnutrition Rec to Provider: No Recommendation REASON FOR CONSULT: + screen Patient: Angela Sanches Age: 80 y.o. : 1940 PRIMARY CARE PROVIDER: Christophe Kennedy MD ATTENDING PHYSICIAN: Ronda Regan MD HISTORY OF PRESENT ILLNESS: 80 y.o. male who was admitted on 01/26/2021 with complaint of LUE/LLE weakness. Pt reports symptoms started at least 4-5 months ago. Work up in progress FOOD & NUTRITION RELATED HISTORY: Diet Order: Dietary Orders (From admission, onward) Start Ordered 01/27/21 0730 Diet-Consistent Carbohydrate (75 gm) Diet effective now 01/27/21 0730 Energy Intake Total Energy Intake: Pt states he has had a decreased appetite for a couple of m onths or so but more so over the last week Fluid / Beverage Intake Oral Fluids: 240 ml Liquid Meal Replacement or Supplement: drinks Ensure at home-chocolate with rehan kfast when he remembers Food Intake Amount of Food: 100% of 1 meal recorded, per pt he is eating smaller meals napoleon red to normal Type of Food / Meals: 75 gm consistent CHO Meal / Snack Pattern: 3 meals per day Food Variety: Present FOOD AND NUTRIENT ADMINISTRATION: Diet Experience Food Allergies: NKFA ANTHROPOMETRICS Height: 180.3 cm (5' 11") Weight: 120 kg (264 lb 9.6 oz) Weight Change: -0.34 Childs Body Weight: 78 kg (172 lb) % Childs Body Weight: 154 % % Weight Loss In Weeks: Per pt he used to weigh 280 lb 3 months ago but he also thought he may have lost 15 in 1 month but not sure. =5% TBW in 3 months isn't s ignificant NUTRITION FOCUSED PHYSICAL FINDINGS: Overall Appearance: overweight, older adult male sitting up in bed with sons at bedside Body Language: pleasant, cooperative Cardiovascular - Pulmonary: room air, hx of DM, HTN, PUD, BAM, HLD Extremities, Muscles and Bones: trace BLE Edema; no overt signs of malnutrition Digestive System (Mouth to Rectum): WDL; LBM 9/12 Head and Eyes: WDL Nerves and Cognition: A&O x4 Skin: intact MEDS AND LABS REVIEWED: Pertinent Labs:Results for ANGELA SANCHES ( ) as of 01/28/2021 15:16 Ref. Range 01/27/2021 10:42 01/27/2021 16:00 SODIUM Latest Ref Range: 133 - 147 MEQ/L 137 POTASSIUM Latest Ref Range: 3.5 - 5.3 MEQ/L 4.3 CHLORIDE Latest Ref Range: 96 - 112 MEQ/L 106 CARBON DIOXIDE Latest Ref Range: 20 - 32 MEQ/L 22 Anion Gap Latest Ref Range: 5 - 17 9 Glucose Latest Ref Range: 70 - 100 mg/dL 224 (H) 195 (H) Blood Urea Nitrogen Latest Ref Range: 7 - 26 mg/dL 34 (H) Creatinine Latest Ref Range: 0.6 - 1.3 mg/dL 1.0 eGFR Male AA Latest Ref Range: 60 - 200 mL/min/1.73sq m 87 eGFR Male Non-AA Latest Ref Range: 60 - 200 mL/min/1.73sq m 72 CALCIUM Latest Ref Range: 8.4 - 10.5 mg/dL 8.1 (L) Pertinent Meds: ISS Intake/Output Summary (Last 24 hours) at 01/28/2021 1534 Last data filed at 01/27/2021 1643 Gross per 24 hour Intake 240 ml Output 400 ml Net -160 ml NUTRITION PRESCRIPTION: Estimated Energy Needs Total Energy Estimated Needs: 0089-7740 kcal/d Method for Estimating Needs: MSJ (BMR-1.2) Estimated Protein Needs Total Protein Estimated Needs: 96 gm/day Method for Estimating Needs: .8 gm/kg Fluid Needs Total Fluid Estimated Needs: 1 ml/kcal or per MD MONITORING/EVALUATION: 1. Food & Nutrition Related Hx: Energy Intake 2. Anthropometrics: Weight change 3. Biochemical: Nutrition related labs 4. Nutrition-focused physical findings: GI function, skin Electronically signed by Osmany Parsons 01/28/2021 3:34 PM * Therapy Note - Alisa Head, PT - 01/28/2021 2:45 PM CDT 01/28/21 1430 PT Visit Info Attempted but was unable to see patient (date) 01/28/21 Reason patient was not seen With other staff (RD) PT reason not seen - extended comment will re-attempt, as able Alisa Head, PT, DPT Physical Therapist * Assessment & Plan Note - Ronda Regan MD - 01/28/2021 8:52 AM CDT Associated Problem(s): Cervical myelopathy (HCC) Cervical myelopathy See plan above * End of Shift Note - Vangie Patel RN - 01/28/2021 6:43 AM CDT End of Shift Summary and Plan of Care A&Ox4. GARCIA. Left sided weakness. Denies pain. RA. Frausto in place. MRI head, C-spine, and T-spine completed, awaiting results. VSS. No acute events. Goals per Patient Condition Fall Prevention Plan Patient will remain free from injury related to falls. See the Daily cares/safety flowsheet for intervention documentation. Skin Integrity Plan Patient skin integrity maintained. See integumentary daron wsheet for intervention documentation. Goals/Plan for Shift Patient/Family stated goal for shift: get my MRI Nursing goal for shift: Pt safety, promote rest, monitor vitals Plan: Fall precatuions, cluster care, q4 vitals, frequent assessments Goals/Plan for Hospital Stay Patient/Family stated goal for hospital stay: come through this and be able to w alk Nursing goal for hospital stay: pt safety, pt comfort Plan: fall education, bed alarm use, education of pain scale, explain POC * End of Shift Note - Mary Vogel, XIOMARA - 01/27/2021 7:56 PM CDT End of Shift Summary and Plan of Care A+O. GARCIA. Left side weaker. No c/o pain. Frausto in place. Tolerating CC diet. RA. LP completed. Pt currently in MRI for head, T+ C spine. PRN Ativan given. Goals per Patient Condition Fall Prevention Plan Patient will remain free from injury related to falls. See the Daily cares/safety flowsheet for intervention documentation. Skin Integrity Plan Patient skin integrity maintained. See integumentary daron wsheet for intervention documentation. Goals/Plan for Shift Patient/Family stated goal for shift: Talk with NS Nursing goal for shift: Pt safety, promote rest, monitor vitals Plan: Fall precatuions, cluster care, q4 vitals, frequent assessments Goals/Plan for Hospital Stay Patient/Family stated goal for hospital stay: come through this and be able to w alk Nursing goal for hospital stay: pt safety, pt comfort Plan: fall education, bed alarm use, education of pain scale, explain POC * Care Progression Initial Assessment - Piyush Ferrera RN - 01/27/2021 3:43 PM CDT Care Progression Initial Assessment Discharge Plan Care Progression Plan: TBD-likely SNF Other Comments: This RNCC spoke with pt's son over the phone as the pt is OOR for procedure, int roduced self and reason for my visit. Lei Perez agreeable to assessment. Demog raphics, PCP, and Pharmacy verified correct in EMR. In regards to DME pt has c ane, crutches, RW, and 4WW. Pt has never had SNF, ARU, or HH. Pt lives alone i n a house with a ramp. Home is one level. Pt was independent of ADL's up to 2- 3 days prior to admission. Pt may have an AD/DPOA and son will look for it and provide if found. Pt does have Rx coverage and pt can afford his medications a t this time. Per son Family can transport at discharge. Patient Information Information Obtained: lei Perez Primary Caregiver : Self Support Systems: Extended family, Children Living Arrangements: Alone Type of Residence: Private residence without support Current Home Health Services: No Transportation Transportation at Discharge: Family Transportation at Appointments: Family Functional Capacity & DME Assistive Devices: Cane, Walker, Eyeglasses, Hearing aides Respiratory Items: Current & Past Services Current Resources Available: Rx Coverage Type of Rx Coverage: Part D Financial/Income Information Financial Hardship: Verified that patients primary care physician is Christophe Kennedy MD and receives their medications from [facility] - [place], [place] - [address] [facility] [address] [facility] [place] [address] Piyush Ferrera RN German Instructor [phone] (voalte) / [phone] (office) * Therapy Note - Miroslava Barrett, PT - 01/27/2021 3:40 PM CDT LP planned this PM. Will follow for Physical Therapy needs. Thank you. Miroslava Barrett, PT, DPT Physical Therapist * Discharge Planning - Piyush Ferrera RN - 01/27/2021 3:15 PM CDT Discharge Planning Interventions General Discharge Note Anticipated discharge disposition: SNF Medicare Certified Care Progression Plan: TBD-likely SNF Additional discharge planning information: This RNCC called pt's son Chris to perform initial assessment for dc planning. No answer, this cc left vm for a return call. Care progression will cont to sandeep britt. Piyush Ferrera RN German Instructor [phone] (voalte) / [phone] (office) * Therapy Note - Maryan Quinones OT - 01/27/2021 2:56 PM CDT 01/27/21 1455 OT Visit Info Attempted but was unable to see patient (date) 01/27/21 Reason patient was not seen At procedure OT reason not seen - extended comment Per RN, pt about to leave room for LP proc edure. Will complete OT eval 01/28. HONEY Murillo/L Occupational Therapist Voalte * Therapy Note - Maryan Quinones OT - 01/27/2021 8:07 AM CDT Note order for Occupational Therapy consult received. Chart review completed. Pt recently admitted to [facility] and medical work-up is ongoing. Awaiting NSGY consult. Will continue to follow for skilled OT needs. Thank you for the consultation. Maryan Adams, OTR/L Occupational Therapist Voalmahsa * End of Shift Note - Vangie Patel RN - 01/27/2021 7:11 AM CDT End of Shift Summary and Plan of Care Tx to [facility] @1930. A&Ox4. Pt reports he suspects he has some dementia, no cognitive deficits noted on assessment. Left side weak- LUE 4/5, LLE, 3/5. Denies pain. RA. Frausto in place, draining appropriately. Max assist. NPO @0000 per order. VSS. Goals per Patient Condition Fall Prevention Plan Patient will remain free from injury related to falls. See the Daily cares/safety flowsheet for intervention documentation. Skin Integrity Plan Patient skin integrity maintained. See integumentary daron wsheet for intervention documentation. Goals/Plan for Shift Patient/Family stated goal for shift: figure out what the plan is Nursing goal for shift: pt safety, admit pt to unit, pt comfort, promote rest Plan: fall education, complete admissions database, frequent assessments, cluste r cares to maximize rest periods Goals/Plan for Hospital Stay Patient/Family stated goal for hospital stay: come through this and be able to w alk Nursing goal for hospital stay: pt safety, pt comfort Plan: fall education, bed alarm use, education of pain scale, explain POC * Assessment & Plan Note - Ave Bryson MD - 01/26/2021 9:45 PM CDT Associated Problem(s): T2DM (type 2 diabetes mellitus) (HCC) - Reports that he takes PO meds at home, A1c controlled -Started on Lantus when blood sugars were elevated due to steroids. Currently p conchis's blood sugars within range with Lantus 5 units and sliding scale * Assessment & Plan Note - Ave Bryson MD - 01/26/2021 9:45 PM CDT Associated Problem(s): UTI (urinary tract infection) (Resolved 02/09/2021) - Cover with Rocephin. Completed a total of 7 days Will DC antibiotics - Cultures from OSH not available. * Assessment & Plan Note - Ave Bryson MD - 01/26/2021 9:44 PM CDT Associated Problem(s): Hemiplegia (HCC) Left arm/leg - Workup as above - PT/OT- [facility] * Assessment & Plan Note - Ariadne Guzman MD - 01/26/2021 9:44 PM CDT Associated Problem(s): PAF (paroxysmal atrial fibrillation) (HCC) - Will resume Eliquis given that the there is no surgery anticipated - Patient had an episode of Afib with RVR on 02/04 . Patient was loaded back on d igoxin and started on patients home dose of Toprol XR 300 mg daily * Assessment & Plan Note - Ave Bryson MD - 01/26/2021 9:43 PM CDT Associated Problem(s): Essential hypertension - Continue Toprol 200 mg XR - Hold losartan and HCTZ given BP is soft * Assessment & Plan Note - Ronda Regan MD - 01/26/2021 9:43 PM CDT Associated Problem(s): Spinal cord mass (HCC) See plan above * Assessment & Plan Note - Ave Bryson MD - 01/26/2021 9:43 PM CDT Associated Problem(s): Spinal cord compression (HCC) - expansile cervical lesion noted on outside imaging - NS and Neurology consulted on admission -NS feels that presentation not typical of neoplastic process. - As per neurology , cannot r/o primary malignancy but started on Solumedrol on 01/28 for a total of 5 doses to possibly treat transverse myelitis completed with minimal improvement. -repeat C and T spine MRIs reviewed and showing enlargement of long segment cord expansion in the cervical and upper thoracic region - CSF Glucose 126 Protein 246 -S/P LP-CSF studies as per Neuro-nclude CSF VDRL, meningitis/encephalitis panel negative negative. - multiple sclerosis panel light chains elevated. D/W neurology - not clinicall y significat . - CSF paraneoplastic panel negative Serologies SSA, SSB, complement, antiphospholipid antibodies, paraneoplastic antibodies, angiotensin-converting enzyme HTLV negative , MICHAELA 1:160 - Flow Cytometry negative, CSF Cytology negative for malignant cells. - PMR consulted - recommending [facility]. SW working on placement -Discussed with [facility] on-call neurologist. As per requested by patient's family. [facility] is not on the [facility] care network system. Therefore this needs to be an outpatient referral. Recommended neuro-oncology consult as an outpatient. This was conveyed to the patient and family. Also dis cussed that I can refer the patient as an OP to [facility] neurology if the patient and family wishes. * Hospital Course - Ariadne Guzman MD - 01/26/2021 9:36 PM CDT Mr. Angela Sanches is a 80 y.o. male who was admitted on 01/26/2021 ( transfer fro [facility]) with complaint of LUE/LLE weakness. Pt reports symptoms started at least 4-5 months ago. His ex- thinks about May 2020. Started with left leg weakness. He previously ambulated independently and had to start using a cane. Progressed to a walker, and now falling even with walker. More recently has de veloped left arm weakness as well. Intermittently gets numbness in the arm as w ell. He thinks he has lost about 15 pounds in the past week (just since in [facility]). He had evaluation at [facility] in [place] and recommended tra nsf for neurosurgical evaluation. He has also struggled with urinary retentio n.Negative COVID test 01/22/21, MICHAELA, RPR Negative, UA: > 100 WBC, 6-10 RBC. MRI Brain: No acute pathology. Mild small vessel ischemic disease. Mild cerebral and cerebellar volume loss. MRI C&Tspine: Extensive edema and expansion of the spinal cord extending from C3-T5. Differential listed as transverse myelitis, neuromyelitis optica, spinal cord neoplasm, or less likely spinal dural AV fistula. MRI LSpine: Subarticular recess narrowing is severe on the left and moderate rig ht L4-5. Neural foraminal narrowing bilaterally. Cervical Myelopathy: Evaluated by Neurosurgery: Feel that presentation not typical of neoplastic proc ess.repeat C and T spine MRIs reviewed and showing enlargement of long segment c ord expansion in the cervical and upper thoracic region Neurology consulted. cannot r/o primary malignancy but started on Solumedrol o n 01/28 for a total of 5 doses to possibly treat transverse myelitis. Completed w ith minimal improvement in symptoms. Underwent LP, meningitis panel, VDRL, paraneoplastic panel negative. In the mul tiple sclerosis panel light chains were mildly elevated. Discussed with neurolo gy this is nonspecific. Serologies including SSA, SSB, complement, antiphospholipid, WILLAM enzyme, HTLV ne gative. MICHAELA nonspecifically elevated at 1: 160. For flow cytometry and cytolog y also negative. Neurology and neurosurgery signed off. Planning to follow-up as an outpatient. Neurosurgery appointment March 03. Family wanted a second opinion. [facility] contacted and recommended following as an outpatient. Patient will need to see outpatient Neurology for referral. Atrial Fibrillation: Patient also went into A. fib with RVR with hypotension. Cardiology and critical care consulted. Patient started on home digoxin and metoprolol increased to 30 0 mg XR with significant improvement in A. Fib. Normotension thereafter off of a ntihypertensive. Antihypertensives will be held on discharge, to be restarted as clinically indicated. Elevated Transaminases (resolved), Thrombocytopenia: Patient developed thrombocytopenia without derangements in other cell lines, no splenomegaly. Unclear etiology. Improving now. Also developed LFT elevation. Hepatitis panel negative. Imaging showing mariana ioma and several cysts that cannot be characterized on CT. Recommend follow-up in [address] UTI, Neurogenic Bladder: Patient also treated for UTI this admission. Frausto placed during admission for u rinary retention. Urology consulted given concern for neurogenic bladder. Patien t passed trial of void, however incontinent, prior to discharge and will be disc harged without frausto catheter. Type 2 Diabetes Mellitus: Patient reportedly on oral antihyperglycemics prior to admission however no fill history. Hyperglycemic this admission beyond duration of steroid administration , requiring basal bolus insulin regimen. He will be discharged on schedule insul in glargine and sliding scale. He has also been referred to outpatient diabetes education. His insulin regimen will need to be adjusted at rehab and during outp atient follow-up. documented in this encounter Plan of Treatment Care Team Description Date Type Specialty Vangie Marion PA [address] [facility] [address] [place] [address] [phone] 03/03/2021 Office Visit Neurosurgery Date/Time Name Type Priority Associated Diag noses 01/27/2021 4:00 PM CDT Specimen Tracking Lab Routine Order Schedule Name Type Priority Associated Diag noses Once - Routine for 1 Occurrences startin g 02/04/2021 until 02/04/2021 Acute Hepatitis Panel Lab Routine STAT for 1 Occurrences starting 02/05/20 21 until 02/04/2021 Lactate Venous WB - 0hr Lab STAT STAT Expected: 05/12/2021, Expires: 2 CT Abdomen w wo contrast Imaging Routine Hepat ic hemangioma Order Schedule Name Type Priority Associated Diag noses 6 Occurrences starting 02/09/2021 until 02/09/2022 Ambulatory Referral To Outpatient Routine Type 2 diabetes mellitus Diabetes Education Referral with diabetic polyneuropathy, unspecified whether continuous churn buttermaker insulin use (HCC) Diabetic polyneuropathy associated with type 2 diabetes mellitus (HCC) documented as of this encounter Procedures Comments [...] GLUCOSE POC Routine 02/04/2021 8:56 PM CDT LACTATE VENOUS WB, 4 HOUR Routine 02/04/2021 5:57 PM CDT MAGNESIUM Add-On 02/04/2021 5:57 PM CDT LIPID PANEL Add-On 02/04/2021 5:57 PM CDT GLUCOSE POC Routine 02/04/2021 4:47 PM CDT XR CHEST SINGLE VIEW STAT 02/04/2021 FRONTAL 4:20 PM CDT LACTATE VENOUS WB, 2 HOUR Routine 02/04/2021 3:57 PM CDT THYROID STIMULATING Add-On 02/04/2021 HORMONE 3:57 PM CDT T4 FREE Add-On 02/04/2021 3:57 PM CDT COMPREHENSIVE METABOLIC Add-On 02/04/2021 PANEL 3:57 PM CDT ECHO COMPLETE W DOPPLER Routine 02/04/2021 AND COLOR FLOW 1:55 PM CDT ECG Routine 02/04/2021 12:15 PM CDT CULTURE, BLOOD Timed 02/04/2021 12:12 PM CDT URINALYSIS MICROSCOPIC Routine 02/04/2021 ONLY 12:11 PM CDT URINALYSIS REFLEX Routine 02/04/2021 12:11 PM CDT GLUCOSE POC Routine 02/04/2021 12:07 PM CDT CULTURE, BLOOD Timed 02/04/2021 12:05 PM CDT PROTHROMBIN TIME/INR Routine 02/04/2021 12:05 PM CDT CBC AND DIFF (MANUAL DIFF Routine 02/04/2021 IF NECESSARY) 12:05 PM CDT TROPONIN Add-On 02/04/2021 12:03 [...] GLUCOSE POC Routine 02/01/2021 12:10 PM CDT CBC AND DIFF (MANUAL DIFF Routine 02/01/2021 IF NECESSARY) 10:56 AM CDT BASIC METABOLIC PANEL Routine 02/01/2021 10:56 AM CDT GLUCOSE POC Routine 02/01/2021 [...] GLUCOSE POC Routine 01/27/2021 9:13 PM CDT PARANEOPLASTIC MALORIE Routine 01/27/2021 6:04 PM CDT HTLV-I/II ANTIBODIES QUAL Routine 01/27/2021 6:04 PM CDT ANGIOTENSIN CONVERTING Routine 01/27/2021 ENZYME 6:04 PM CDT COMPLEMENT TOTAL (CH50) Routine 01/27/2021 6:04 PM CDT ANTINUCLEAR ANTIBODY IFA Routine 01/27/2021 (MICHAELA) 6:04 PM CDT ANTIPHOSPHOLIPID PANEL II Routine 01/27/2021 6:04 PM CDT RO/SSA ANTIBODY Routine 01/27/2021 6:04 PM CDT LA/SSB ANTIBODY Routine 01/27/2021 6:04 PM CDT C4 COMPLEMENT Routine 01/27/2021 6:04 PM CDT C3 COMPLEMENT Routine 01/27/2021 6:04 PM CDT [id number] IGG Routine 01/27/2021 AND IGM 6:04 PM CDT ANTICARDIOLIPIN Routine 01/27/2021 ANTIBODIES 6:04 PM CDT GLUCOSE POC Routine 01/27/2021 5:19 PM CDT PARANEOPLASTIC AUTOAB Routine 01/27/2021 EVAL, CSF 4:00 PM CDT NMO/AQP4 IGG FACS, CSF Routine 01/27/2021 4:00 PM CDT LAB SPECIMEN TRACKING Routine 01/27/2021 4:00 PM CDT LEUKEMIA / LYMPHOMA PANEL Routine 01/27/2021 BY FLOW CYTOMETRY 4:00 PM CDT MULTIPLE SCLEROSIS Add-On 01/27/2021 PROFILE CSF 4:00 PM CDT ANGIOTENSION CONVERT Add-On 01/27/2021 ENZYME (WILLAM) CSF 4:00 PM CDT WEST NILE VIRUS IGG+IGM Routine 01/27/2021 CSF 4:00 PM CDT MENINGITIS/ENCEPHALITIS Add-On 01/27/2021 PANEL 4:00 PM CDT VDRL CSF Add-On 01/27/2021 4:00 PM CDT PROTEIN CEREBROSPINAL Routine 01/27/2021 FLUID 4:00 PM CDT CSF CELL COUNT AND Routine 01/27/2021 DIFFERENTIAL 4:00 PM CDT CULTURE, SPINAL FLUID Routine 01/27/2021 WITH GRAM STAIN 4:00 PM CDT GLUCOSE CSF Routine 01/27/2021 4:00 PM CDT GLUCOSE Routine 01/27/2021 4:00 PM CDT MRI OUTSIDE IMAGES FOR [...] PACS SPINE 2:34 PM CDT consultation CYTOLOGY NON-PUMP TESTER Routine 01/27/2021 2:23 PM CDT GLUCOSE POC Routine 01/27/2021 12:09 PM CDT COMPLETE BLOOD COUNT Routine 01/27/2021 10:42 AM CDT BASIC METABOLIC PANEL Routine 01/27/2021 10:42 AM CDT GLUCOSE POC Routine 01/27/2021 8:53 AM CDT SARS-COV-2, ADENIKE Routine 01/26/2021 (COVID-19) 10:55 PM CDT GLUCOSE POC Routine 01/26/2021 10:35 PM CDT documented in this encounter Results * GLUCOSE POC (02/10/2021 7:43 AM CDT) Only the most recent of 74 results within the time period is included. Glucose POC 138 (H) 70 - 100 mg/dL [facility] Specimen Performing Organization Address City/[facility] [address]/ZIP Code P maame Number [facility] [address] [place] [address] LABORATORIES * Comprehensive Metabolic Panel (02/08/2021 12:04 PM CDT) Only the most recent of 5 results within the time period is included. [facility] Sodium 134 133 - 147 MEQ/L [facility] Potassium 3.8 3.5 - 5.3 MEQ/L [facility] Chloride 103 96 - 112 MEQ/L [facility] Carbon Dioxide 25 20 - 32 MEQ/L [facility] Anion Gap 6 5 - [address] [facility] Calcium 7.8 (L) 8.4 - 10.5 mg/dL [facility] Glucose 210 (H) 70 - 100 mg/dL [facility] Protein Total 4.9 (L) 6.0 - 8.2 g/dL [facility] Serum [facility] Lab Albumin 2.3 (L) 3.5 - 5.0 g/dL [facility] Alkaline 49 42 - 140 IU/L [facility] Lab Alanine 42 0 - 49 IU/L [facility] e Aspartate 25 15 - 46 IU/L [facility] Lab e Bilirubin Total 1.5 (H) 0.2 - 1.3 mg/dL [facility] Blood Urea 24 7 - 26 mg/dL [facility] Lab Creatinine 0.8 0.6 - 1.3 mg/dL [facility] Lab eGFR Male AA 113 60 - 200 [facility] mL/min/1.[facility] m [facility] Lab eGFR Male 93 60 - 200 [facility] Non-AA mL/min/1.73sq m Hospital Lab Specimen Blood Performing Organization Address City/State/ZIP Code P maame Number [facility] [address] [place] [address] LAB[address]ATORIES [facility] [address] [place] [address] * CBC and Diff (manual diff if necessary) (02/08/2021 12:04 PM CDT) Only the most recent of 6 results within the time period is included. WBC 7.29 4.00 - 11.00 TH/uL [facility] Lab RBC 4.36 4.31 - 5.84 MIL/uL [facility] Hemoglobin 14.3 13.0 - 17.0 g/dL [facility] Hematocrit 41 40 - 50 % [facility] MCV 94 80.0 - 99.[address] [facility] MCH 33 27.0 - 34.[address] [facility] MCHC 35 32 - 36 % [facility] RDW 13.1 11.5 - 14.5 % [facility] Platelet Count 133 (L) 140 - 400 TH/uL [facility] MPV 12.1 9.4 - 12.[address] [facility] Nucleated RBCs 0 0 - 0 /[address] [facility] % Neutrophils 78 45 - 78 % [facility] %Lymphocytes 10 (L) 15 - 47 % [facility] % Monocytes 9 0 - 12 % [facility] %Eosinophils 3 0 - 7 % [facility] %Basophils 0 0 - 2 % [facility] % Imm Grans 0 0 - 1 % [facility] # Granulocytes 5.72 1.70 - 6.80 TH/uL [facility] # Lymphocytes 0.74 (L) 1.00 - 3.30 TH/uL [facility] # Monocytes 0.63 0.20 - 0.90 TH/uL [facility] # Eosinophils 0.19 0.00 - 0.40 TH/uL [facility] # Basophils 0.01 0.00 - 0.10 TH/uL [facility] Specimen Blood Performing Organization Address City/State/ZIP Code P maame Number [address] [place] [address] LAB[address]ATORIES [facility] [address] [place] [address] * Acute Hepatitis Panel (02/07/2021 8:01 AM CDT) Hepatitis B Non-reactive Non-reactive [facility] Core Ab IgM [facility] Lab Hepatitis B Non-reactive Non-reactive [facility] Lab Hepatitis C Ab Non-reactive Non-reactive [facility] Lab Hepatitis A Ab Non-reactive Non-reactive [facility] Lab Specimen Blood Performing Organization Address City/State/ZIP Code P maame Number [facility] [address] [place] [address] LABORATORIES [facility] [address] [place] [address] * CT Abdomen w wo contrast (02/06/2021 [...] given the patient's hi story READING SITE: [facility] Narrative Performed At Patient: ANGELA SANCHES Sex#: M #: 1940 [place]# : [id number] Location: [place] [address] Accession# : [id number] Ordering Provider: AVE BRYSON Procedure Requested: [id number] CT ABDOM EN W WO CONTRAST Reason [...] ANGELA SANCHES Sex#: M #: 1940 [place]#: [id number] Location: [place] [address] Ordering Provider: AVE BRYSON Procedure Requested: [id number] CT ABDOMEN W WO CONTRAST Reason for [...] stability given the patient's history READING SITE: [facility] Performing Organization Address City/State/ZIP Code P maame Number [facility] * US Abdomen complete (02/05/2021 10:20 AM [...] cancer, or has known cancer. READING SITE: [facility] Narrative Performed At Patient: ANGELA SANCHES Sex#: M #: 1940 [place]# : [id number] Location: [place] [id number] Accession# : [id number] Ordering Provider: AVE BRYSON Procedure Requested: [id number] US ABDOM EN COMPLETE Reason for Exam: [...] ANGELA SANCHES Sex#: M #: 1940 [place]#: [id number] Location: [address] Ordering Provider: AVE BRYSON Procedure Requested: [id number] US ABDOMEN COMPLETE Reason for Exam: thrombocytopenia [...] cancer, or has known cancer. READING SITE: [facility] Performing Organization Address City/[facility] [address]/ZIP [facility] P maame Number [facility] * Basic Metabolic Panel (02/05/2021 8:57 AM CDT) Only the most recent of 3 results within the time period is included. Sodium 135 133 - 147 MEQ/L [facility] Potassium 4.1 3.5 - 5.3 MEQ/L [facility] Chloride 103 96 - 112 MEQ/L [facility] Lab Carbon Dioxide 29 20 - 32 MEQ/L [facility] Anion Gap 3 (L) 5 - [address] [facility] Calcium 7.6 (L) 8.4 - 10.5 mg/dL [facility] Glucose 107 (H) 70 - 100 mg/dL [facility] Blood Urea 23 7 - 26 mg/dL [facility] Lab Creatinine 0.9 0.6 - 1.3 mg/dL [facility] Lab eGFR Male AA 98 60 - 200 [facility] mL/min/1.73sq m Hospital Lab eGFR Male 81 60 - 200 [facility] Non-AA mL/min/1.73sq Hospital Lab Specimen Blood Performing Organization Address City/[facility] [address]/ZIP Code P maame Number [facility] [address] [place] [address] LABORATORIES [facility] [address] [place] [address] * Lipid Panel (02/04/2021 5:57 PM CDT) Cholesterol 115 100 - 200 mg/dL [facility] HDL Cholesterol 29 (L) 40 - 110 mg/dL [facility] Non-HDL 86 0 - 130 mg/dL [facility] Triglycerides 83 0 - 150 mg/dL [facility] LDL Cholesterol 69 0 - 99 mg/dL [facility] Cholesterol/HDL 4.0 0.0 - 4.5 [facility] Specimen Blood Performing Organization Address City/State/ZIP Code P maame Number [facility] [address] [place] [address] LABORATORIES [facility] [address] [place] [address] * Magnesium (02/04/2021 5:57 PM CDT) Magnesium 2.2 1.4 - 2.7 mg/dL [facility] Specimen Blood Performing Organization Address City/State/ZIP Code P maame Number [address] [address] LABORATORIES [facility] [address] [place] [address] * Lactate Venous WB, 4 Hour (02/04/2021 5:57 PM CDT) Only the most recent of 2 results within the time period is included. Lactate Venous 1.2 0.0 - 2.0 mmol/L [facility] Specimen Blood Performing Organization Address City/State/ZIP Code [facility] Number [address] [address] LABORATORIES [facility] [address] [place] [address] * XR Chest single view frontal (02/04/2021 4:20 PM CDT) Specimen Impressions Performed At focal [facility] Cardiomegaly READING SITE: [facility] Narrative Performed At Patient: ANGELA SANCHES Sex#: M #: 1940 [place]# : [id number] Location: [place] [address] Accession# : [id number] Ordering Provider: AVE BRYSON Procedure Requested: [id number] XR CHEST SINGLE VIEW FRONTAL Reason for Exam: r/o CAP Exam Ordered: 02/04/2021 16 02 Begin exam date/time: 02/04/2021 161 5 Exam Date/Time: 02/04/2021 162 0 XR CHEST SINGLE VIEW FRONTAL INDICATION: r/o CAP COMPARISON STUDY: None. FINDINGS: Lungs: The lung volume is normal. No fo skye airspace disease. Normal pulmonary vasculature. Pleura: No pleural effusion or pneumoth orax. Heart and Mediastinum: Cardiomegaly. Bones: Unremarkable Procedure Note Interface, Rad Results In - 02/04/2021 4:35 PM CDT Patient: ANGELA SANCHES Sex#: M #: 1940 Q[place]#: [id number] Location: [id number] Ordering Provider: AVE BRYSON Procedure Requested: [id number] XR CHEST SINGLE VIEW FRONTAL Reason for [...] IMPRESSION No focal consolidation Cardiomegaly READING SITE: [facility] Performing Organization Address City/[facility] [address]/ZIP Code P maame Number [facility] * T4 Free (02/04/2021 3:57 PM CDT) T4 Free 1.8 0.8 - 2.2 ng/dL [facility] Specimen Blood Performing Organization Address City/[facility]/ZIP Code P maame Number [facility] [address] [place] [address] LAB[address]ATORIES [facility] [address] [place] [address] * Thyroid Stimulating Hormone (02/04/2021 3:57 PM CDT) Thyroid 4.29 0.47 - 4.68 uIU/mL [facility] Hormone Specimen Blood Performing Organization Address City/[facility] [address] [facility]/ZIP Code P maame Number [facility] [address] [place] [address] [address] [facility] [address] [place] [address] * Lactate Venous WB, 2 Hour (02/04/2021 3:57 PM CDT) Only the most recent of 2 results within the time period is included. Lactate Venous 1.9 0.0 - 2.0 mmol/L [facility] Specimen Blood Performing Organization Address City/State/ZIP Code P maame Number [facility] [address] [place] [address] LABORATORIES [facility] [address] [place] [address] * Echo Complete with Doppler and Color Flow (02/04/2021 1:55 PM CDT) Ejection 25 % PROSOLV Fraction Specimen Impressions Performed At 1. Moderately reduced left ventricular systolic fun ction, with an estimated PROSOLV ejection fraction of 25% 2. No significant valvular abnormalit ies. 3. Moderate pulmonary hypertension. E stimated PA pressure = 55 mmHg. No previous study available for napoleon rison. Dr Dieudonne Michaels (Electronically Signed) Final Date: 04 February 2021 15 :53 Narrative Performed At PROSOLV ECHOCARDIOGRAM RE[facility] Name: ANGELA SANCHES Date: 02/04/2021 13:21 Chart #: [id number] : 1940 Location: [facility] Sono: brittney Age: 80 Gender: M Referring: AVE BRYSON Room #: N213 Fellow: Indication:lbbb Procedure: ECHO [...] Peak Velocity 171 cm/ s LVOT AV Jossie Ratio 0.42 AV Peak Gradient 11.7 mm [...] Apical Anterior, M id Anterior, Basal Anterior, [place] FINDINGS LV Ejection Fraction: 25 Patient declined [...] ANGELA SANCHES Date: 02/04/2021 13:21 Chart #: [id number] : 1940 Location: [facility] Sono: brittney Age: 80 Gender: M Referring: AVE BRYSON Room #: N213 Fellow: Indication:lbbb Procedure: ECHO [...] AV Peak Velocity 171 cm/s LVOT AV Jossie Ratio 0.42 AV Peak Gradient 11.7 mmHg [...] Inferior, Apical Anterior, Mid Anterior, Basal Anterior, [place] FINDINGS LV Ejection Fraction: 25 Patient declined [...] ECGHR 148 TRACEMASTER Specimen Narrative Performed At [facility] Test Date: 2021-02-04 Pat Name: ANGELA SANCHES Department: [facility] Room: [facility] Gender: Male Cemetery Manager: [id number] : 1940 Requested By: AVE JURADO Order Number: [id number] Steve MD: William Lai Measurements Intervals [place] Rate: 148 P: MS: QRS: 37 QRSD: 144 T: 236 QT: 336 QTc: 528 Interpretive Statements ATRIAL FIBRILLATION, V-RATE 92-183 IVCD, CONSIDER ATYPICAL LBBB VENTRICULAR PREMATURE COMPLEX Electronically Signed On 02-06-2021 15:2 1:57 CDT by William Lai Procedure Note Interface, External Ris In - 02/06/2021 3:22 PM CDT [facility] Test Date: 2021-02-04 Pat Name: ANGELA SANCHES Department: [facility] Room: [facility] Gender: Male Cemetery Manager: [id number] : 1940 Requested By: AVE JURADO Order Number: [id number] Reading MD: William Lai Measurements Intervals [place] Rate: 148 P: MS: QRS: 37 QRSD: 144 T: 236 QT: 336 QTc: 528 Interpretive Statements ATRIAL FIBRILLATION, V-RATE 92-183 IVCD, CONSIDER ATYPICAL LBBB VENTRICULAR PREMATURE COMPLEX Electronically Signed On 02-06-2021 15:21:57 CDT by William Lai Performing Organization Address City/[facility]/ZIP Code P maame Number TRACEMASTER * Culture, Blood (02/04/2021 12:12 PM CDT) Only the most recent of 2 results within the time period is included. Culture Result No Growth at [address] [facility] Specimen Blood Narrative Performed At L AC ; 20 ML [facility] LABORATORIES Performing Organization Address City/[facility] [address]/ZIP Code P maame Number [facility] [address] [place] [address] LAB[address]ATOR[address] [facility] [address] [place] [address] * Urinalysis Microscopic Only (02/04/2021 12:11 PM CDT) Microscopic RBC 0-5 0 - 5 /hpf [facility] Microscopic WBC 0-5 0 - 5 /hpf [facility] Epithelial Absent Absent [facility] Hyaline Cast Absent Absent [facility] Bacteria Absent Absent [facility] Amorphous Urate Present (A) Absent [facility] Lab Specimen Catheter Urine Performing Organization Address City/State/ZIP Code P maame Number [facility] [address] [place] [address] LABORATORIES [facility] [address] [place] [address] * Urinalysis Reflex (02/04/2021 12:11 PM CDT) Pathologist [facility] Appearance, Dark Yellow [facility] Glucose Urine Negative Negative mg/dL [facility] Bilirubin Urine Small (A) Negative [facility] Ketones Urine Negative Negative mg/dL [facility] Specific 1.019 1.001 - 1.030 [facility] Lab Hemoglobin Trace (A) Negative [facility] PH Urine 5.5 5.0 - 8.[address] [facility] Protein Urine Negative Negative mg/dL [facility] Urobilinogen Negative Negative EU/dL [facility] Nitrite Urine Negative Negative [facility] Leukocyte Positive (A) Negative [facility] Lab Specimen Catheter Urine Performing Organization Address City/[facility]/ZIP Code P maame Number [facility] [address] [place] [address] LABORATORIES [facility] [address] [place] [address] * Prothrombin Time/INR (02/04/2021 12:05 PM CDT) Pathologist [facility] Protime 21.1 (H) 11.4 - 15.[address] [facility] INR 1.9 (H) 0.8 - 1.[address] [facility] Specimen Blood Performing Organization Address City/[facility]/ZIP Code P maame Number [facility] [address] [place] [address] LAB[address] [facility] [address] [place] [address] * Troponin (02/04/2021 12:03 PM CDT) Pathologist [facility] Troponin 0.01 0.00 - 0.03 ng/mL [facility] Comment: Hospital Lab Troponin Value Interpretation 0.00 - 0.03 Healthy 0.04 - 0.12 Increased Cardiac Risk >0.12 Myocardial Infarction Troponin may not become elevated until 6 to 8 hours after onset of symptoms. Specimen Blood Performing Organization Address City/[facility] [address] [facility]/ZIP Code P maame Number [facility] [address] [place] [address] LABORATORIES [facility] [address] [place] [address] * Lactate Venous WB - 0hr STAT (02/01/2021 4:23 PM CDT) Lactate Venous 3.7 (H) 0.0 - 2.0 mmol/L [facility] Specimen Blood Performing Organization Address City/[facility] Code P [facility] Number [address] [address] LABORATORIES [facility] [address] [place] [address] * XR Abdomen single view AP (01/31/2021 10:46 AM CDT) Specimen Impressions Performed At Probable fecal impaction in the rectum. Nonobstructiv e bowel gas GERMAN pattern. ATTESTATION STATEMENT: Staff Radiologis t has personally reviewed this study and agrees with the findings in t his report. READING SITE: [facility] Narrative Performed At Patient: ANGELA SANCHES Sex#: M #: 1940 Quita# : [id number] Location: [place] [address] Accession# : [id number] Ordering Provider: AVE BRYSON Procedure Requested: [id number] XR ABDOM EN SINGLE VIEW AP Reason [...] ANGELA SANCHES Sex#: M #: 1940 Quita#: [id number] Location: [address] Ordering Provider: AVE BRYSON Procedure Requested: [id number] XR ABDOMEN SINGLE VIEW AP Reason for [...] the findings in this report. READING SITE: [facility] Organization Address City/State/ZIP Code P maame Number [facility] * IR Lumbar puncture w fluoro (01/28/2021 7:27 AM CDT) Specimen Impressions Performed At Successful fluoroscopically-guided lumbar puncture wi christelle PORTER ATTESTATION STATEMENT: The Staff Physic apple has personally reviewed the images and dictated, reviewed, or edite d the final report. READING SITE: [facility] Narrative Performed At Patient: ANGELA SANCHES Sex#: M #: 1940 Quita# : [id number] Location: [address] Accession# : [id number] Ordering Provider: AYANA GREEN Procedure Requested: [id number] IR LUMBA R PUNCTURE W FLUORO Reason [...] benefits, and alternatives were discussed with the pa tiealesia by Dr. Tam. Risks specifically discussed included pain, b leeding, infection, spinal headache, cerebral spinal fluid (CSF) l eak, and potential nerve damage. The patient questions were answered, an d both verbal and written consent was given to proceed. ATTENDING PHYSICIAN: Dr. Becerril, the ne urointerventional attending physician, was present for the entire p rocedure. METAL HANGER: Dr. Ranjan Martínez, neuroradiology interventional fellow. Dr. [...] into the thecal sac at this le jossie. Opening pressure was not requested. After CSF [...] ANGELA SANCHES Sex#: M #: 1940 Quita#: [id number] Location: [place] [address] Ordering Provider: AYANA GREEN Procedure Requested: [id number] IR LUMBAR PUNCTURE W FLUORO Reason for [...] physician, was present for the entire procedure. METAL HANGER: Dr. Ranjan Martínez, neuroradiology interventional fellow. Dr. aTm, neurology resident TECHNIQUE: A "time out" procedure [...] or edited the final report. READING SITE: [facility] Performing Organization Address City/State/ZIP Code P maame Number [facility] * MRI [...] edite d the final report. READING SITE: [facility] Narrative Performed At Patient: ANGELA SANCHES Sex#: M #: 1940 Quita# : [id number] Location: [address]-01 Accession# : [id number] Ordering Provider: AYANA GREEN Procedure Requested: [id number] MRI THOR ACIC SPINE W WO CONTRAST [...] is iso to slightly hypointense on T1-weigh jovon imaging. The lesion is predominantly located in [...] abdomen. The visualized thoracic aorta is normal skye iber. Minimal multilevel disc bulges without high-grade spinal canal stenosis or neural foraminal narrowing. 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 READING SITE: [facility] Performing Organization Address City/State/ZIP Code P maame Number [facility] * MRI Head w wo contrast (01/27/2021 9:14 PM CDT) Specimen Impressions Performed At 1. No acute infarct or hemorrhage. GERMAN 2. No brain mass or abnormal enhancemen t. 3. Mild subcortical and deep periventri cular white matter FLAIR hyperintensities, a nonspecific finding , most commonly seen with chronic small vessel ischemic disease. 4. Please see separately dictated cervi skye and thoracic spine MRI for spinal cord findings. READING SITE: [facility]. ATTESTATION STATEMENT: The Staff Radiologist has personally re viewed the images and dictated, reviewed, or edited the final report. Narrative Performed At Patient: ANGELA SANCHES Sex#: M #: 1940 Quita# : [id number] Location: [address] N[address]-01 Accession# : [id number] Ordering Provider: AYANA GREEN Procedure Requested: [id number] MRI HEAD W WO CONTRAST Reason for [...] 9:35 AM CDT Patient: ANGELA SANCHES Sex#: Ama #: 1940 Quita#: [id number] Location: [address] N214-01 Ordering Provider: AYANA GREEN Procedure Requested: [id number] MRI HEAD W WO CONTRAST Reason for Exam: progressive left sided weakness Exam Ordered: 01/27/2021 1011 Begin exam date/time: 01/27/20213 Exam Date/Time: 01/27/2021 2114 MRI HEAD W WO CONTRAST Date: 01/27/2021 [...] MRI for spinal cord findings. READING SITE: [facility]. ATTESTATION STATEMENT: The Staff Radiologist has [...] edite d the final report. READING SITE: [facility] Narrative Performed At Patient: ANGELA SANCHES Sex#: M #: 1940 Quita# : [id number] Location: [place] [address] Accession# : [id number] Ordering Provider: AYANA GREEN Procedure Requested: [id number] MRI CERV ICAL SPINE W WO CONTRAST [...] ANGELA SANCHES Sex#: M #: 1940 Quita#: [id number] Location: [address] N[address]-01 Ordering Provider: AYANA GREEN Procedure Requested: [id number] MRI CERVICAL SPINE W WO CONTRAST Reason [...] or edited the final report. READING SITE: [facility] Performing Organization Address City/[facility] [address] [facility] P maame Number [facility] * Antiphospholipid Panel II (01/27/2021 6:04 PM CDT) [facility] Protime 17.0 (H)Comment: Tissue 11.4 - 15.0 sec [facility] plasminogen activators (TPA) Hospital Lab and anticoagulation therapy, including Vitamin K, Xa, and direct thrombin inhibitors, can affect clot-based testing. APL testing cannot be performed when patient is taking Eliquis. INR 1.4 (H) 0.8 - 1.[address] [facility] APTT 24 22 - [address] [facility] Specimen Blood Performing Organization Address [facility] Code P maame Number [address] [address] LABORATORIES [facility] [address] [place] [address] * Anticardiolipin Antibodies (01/27/2021 6:04 PM CDT) Pathologist [facility] Anticardiolipin <3 0 - 20 CU [facility] IgG Hospital Lab Anticardiolipin 21 (H) 0 - 20 CU [facility] IgM [facility] Lab Specimen Blood Performing Organization Address [facility] [address] [facility]/ZIP Code P maame Number [address] [address] LABORATORIES [facility] [address] [place] [address] * Pwfq-8-Jabkzgynjfqp IgG and IgM (01/27/2021 6:04 PM CDT) Pathologist [facility] B2 GLYCOPROTEIN 7 0 - 20 CU [facility] I (IGG)AB Hospital Lab B2 GLYCOPROTEIN 2 0 - 20 CU [facility] I (IGM)AB [facility] Lab Specimen Blood Performing Organization Address City/State/ZIP Code P maame Number [facility] [address] [place] [address] [address] [facility] [address] [place] [address] * Complement Total (CH50) (01/27/2021 6:04 PM CDT) Complement 53 >41 U/mL [facility] Total (CH50) [...] out of range values. Performed at: - [facility] [address] [id number] Second Operator: Rony Berg MD, Phone: [phone] Specimen Blood Performing Organization Address City/[facility] [address]/ZIP Code P maame Number [facility] [address] [place], [place] [address] [facility] Interface [id number] [place] [address] [place] [address] * C4 Complement (01/27/2021 6:04 PM CDT) C4 Complement 10 (L) 14 - 44 mg/dL [facility] Specimen Blood Performing Organization Address City/State/ZIP Code P maame Number [facility] [address] [place] [address] LAB[address] [facility] [address] [place] [address] * C3 Complement (01/27/2021 6:04 PM CDT) C3 Complement 103 83 - 172 mg/dL [facility] Specimen Blood Performing Organization Address City/[facility]/ZIP Code P maame Number [facility] [address] [place] [address] [address] [facility] [address] [place] [address] * HTLV-I/II Antibodies Qual (01/27/2021 6:04 PM CDT) HTLV-I/II Negative Negative [facility] Antibodies QL Comment: Performed at: [facility] [address] [place] [address] [address], [place], [place] [id number] Second Operator: Miesha Barrett PhD, Phone: [phone] Specimen Blood Performing Organization Address City/State/ZIP Code P maame Number [facility] [address] [place], [place] [address] [facility] Interface [id number] [place], [place] [address] [place] [facility] * Paraneoplastic Malorie (01/27/2021 6:04 PM CDT) Paraneoplastic See Note [facility] Interp Comment: Laboratories No informative autoantibodies were detected in theParaneoplastic Evaluation. However, a negative result doesnot exclude neurological autoimmunity with or withoutassociated neoplasia. Sensitivity and specificity ofantibody testing are enhanced by testing both serum andCSF. Reflex added None. [facility] Comment: Laboratories ADDITIONAL INFORMATION This test was developed and its performance characteristicsdetermined by [facility] in a manner consistent with CLIArequirements. This test has not been cleared or approved bythe U.S. Food and Drug Administration. Anti-Neuronal Negative <1:240 titer [facility] Nuc Ab,Tp 1 Laboratories Anti-Neuronal Negative <1:240 titer [facility] Nuc Ab,Tp 2 Comment: Laboratories ADDITIONAL INFORMATION This test was developed and its performance characteristicsdetermined by [facility] in a manner consistent with CLIArequirements. This test has not been cleared or approved bythe U.S. Food and Drug Administration. Anti-Neuronal Negative <1:240 titer [facility] Nuc Ab,Tp 3 Comment: Laboratories ADDITIONAL INFORMATION This test was developed and its performance characteristicsdetermined by [facility] in a manner consistent with CLIArequirements. This test has not been cleared or approved bythe U.S. Food and Drug Administration. Anti-Glial Negative <1:240 titer [facility] Nuclear Ab,Type Comment: [facility] 1 ADDITION AL INFORMATION This test was developed and its performance characteristicsdetermined by [facility] in a manner consistent with CLIArequirements. This test has not been cleared or approved bythe .S. Food and Drug Administration. Purkinje Cell Negative <1:240 titer [facility] Cyto Ab, Tp 1 Comment: Laboratories ADDITIONAL INFORMATION This test was developed and its performance characteristicsdetermined by [facility] in a manner consistent with CLIArequirements. This test has not been cleared or approved bythe U.S. Food and Drug Administration. Purkinje Cell Negative <1:240 titer [facility] Cyto Ab,Tp 2 Comment: Laboratories ADDITIONAL INFORMATION This test was developed and its performance characteristicsdetermined by [facility] in a manner consistent with CLIArequirements. This test has not been cleared or approved bythe U.S. Food and Drug Administration. Purkinje Cell Negative <1:240 titer [facility] Cyto Ab,Tp Tr Comment: Laboratories ADDITIONAL INFORMATION This test was developed and its performance characteristicsdetermined by [facility] in a manner consistent with CLIArequirements. This test has not been cleared or approved bythe U.S. Food and Drug Administration.Test Performed by:[address] [address]Oym Director: Guru Mata M.D. Ph.D.; IA# [id number] Amphiphysin Ab Negative <1:240 titer [facility] Comment: Laboratories ADDITIONAL INFORMATION This test was developed and its performance characteristicsdetermined by [facility] in a manner consistent with CLIArequirements. This test has not been cleared or approved bythe U.S. Food and Drug Administration. CRMP-5-IgG Negative <1:240 titer [facility] Comment: Laboratories ADDITIONAL INFORMATION This test was developed and its performance characteristicsdetermined by [facility] in a manner consistent with CLIArequirements. This test has not been cleared or approved bythe U.S. Food and Drug Administration. P/Q-Type 0.01 <=0.02 nmol/L [facility] Calcium Channel Comment: Laboratories Malorie ADDITION AL INFORMATION This test was developed and its performance characteristicsdetermined by [facility] in a manner consistent with CLIArequirements. This test has not been cleared or approved bythe U.S. Food and Drug Administration. AChR Ganglionic 0.00 <=0.02 nmol/L [facility] Neuronal Malorie Comment: Laboratories ADDITIONAL INFORMATION This test was developed and its performance characteristicsdetermined by [facility] in a manner consistent with CLIArequirements. This test has not been cleared or approved bythe U.S. Food and Drug Administration. VGKC-Malorie 0.00 <=0.02 nmol/L [facility] Comment: Laboratories ADDITIONAL INFORMATION This test was developed and its performance characteristicsdetermined by [facility] in a manner consistent with CLIArequirements. This test has not been cleared or approved bythe U.S. Food and Drug Administration. Specimen Blood Performing Organization Address City/State/ZIP Code P maame Number [facility] [address] [place], [place] [address] [facility] Laboratories [address] [facility] [address] * LA/SSB Antibody (01/27/2021 6:04 PM CDT) LA/SSB Antibody Negative Negative [facility] Specimen Blood Performing Organization Address City/State/ZIP Code P maame Number [facility] [address] [place] [address] LABORATORIES [facility] [address] [place] [address] * RO/SSA Antibody (01/27/2021 6:04 PM CDT) RO/SSA Antibody Negative Negative [facility] Specimen Blood Performing Organization Address City/[facility] Code P maame Number [facility] [address] [place] [address] [address] [facility] [address] [place] [address] * Antinuclear Antibody IFA (MICHAELA) (01/27/2021 6:04 PM CDT) Pathologist [facility] MICHAELA Speckled [facility] Lab Pattern 1 MICHAELA 1:160 [facility] Titer 1 MICHAELA Qualitative Positive (A)Comment: [facility] uses the [facility] Lab Lite HEp-2 indirect immunofluorescent assay for screening and semi-quantitative determination of anti-nuclear antibodies (MICHAELA) in human serum. Specimen Blood Performing Organization Address City/[facility] [address]/ZIP Code P maame Number [facility] [address] [place] [address] LABORATORIES [facility] [address] [place] [address] * Angiotensin Converting Enzyme (01/27/2021 6:04 PM CDT) Angiotensin 19 14 - 82 U/L [facility] Converting Comment: Enzyme Performed at: - [address] [id number] Second Operator: Rony Berg MD, Phone: [phone] Specimen Blood Performing Organization Address City/[facility] [address]/ZIP Code P maame Number [facility] [address] [place] [address] [facility] Interface [id number] [place] [address] 144 Ozzy Jiménez * Angiotension Convert Enzyme (WILLAM) CSF (01/27/2021 4:00 PM CDT) Angiotension 1.7 0.0 - 2.5 U/L [facility] Convert Enzyme Comment: Laboratories CSF This test was developed and its performance characteristicsdetermined by [email or web address]. It has not been cleared orapproved by the US Food and Drug Administration. This testwas performed in a CLIA certified laboratory and isintended for clinical purposes.Performed By: [facility] [address] [place] [id number] Director: Rachel Dunne MDTest Performed by:[address] [address] Specimen CSF Performing Organization Address [facility] P maame Number [id number] [address] 11 [facility] [address] [facility] [address] * Paraneoplastic Autoab Eval, CSF (01/27/2021 4:00 PM CDT) Pathologist [facility] [place] AGNA-1, CSF Negative <1:2 titer [facility] Comment: Laboratories ADDITIONAL INFORMATION This test was developed and its performance characteristicsdetermined by [facility] in a manner consistent with CLIArequirements. This test has not been cleared or approved bythe U.S. Food and Drug Administration. Amphiphysin Ab, Negative <1:2 titer [facility] CSF Comment: Laboratories ADDITIONAL INFORMATION This test was developed and its performance characteristicsdetermined by [facility] in a manner consistent with CLIArequirements. This test has not been cleared or approved bythe U.S. Food and Drug Administration. JAMESON-1, CSF Negative <1:2 titer [facility] JAMESON-2, CSF Negative <1:2 titer [facility] Comment: Laboratories ADDITIONAL INFORMATION This test was developed and its performance characteristicsdetermined by [facility] in a manner consistent with CLIArequirements. This test has not been cleared or approved bythe U.S. Food and Drug Administration. JAMESON-3, CSF Negative <1:2 titer [facility] Comment: Laboratories ADDITIONAL INFORMATION This test was developed and its performance characteristicsdetermined by [facility] in a manner consistent with CLIArequirements. This test has not been cleared or approved bythe U.S. Food and Drug Administration. CRMP-5-IgG, CSF Negative <1:2 titer [facility] Comment: Laboratories ADDITIONAL INFORMATION This test was developed and its performance characteristicsdetermined by [facility] in a manner consistent with CLIArequirements. This test has not been cleared or approved bythe U.S. Food and Drug Administration. Paraneoplastic See Note [facility] Interp Comment: Laboratories No informative autoantibodies were detected in theParaneoplastic Evaluation. However, a negative result doesnot exclude neurological autoimmunity with or withoutassociated neoplasia. Sensitivity and specificity ofantibody testing are enhanced by testing both serum andCSF. AUTOMOTIVE SERVICE WRITER-1, CSF Negative <1:2 titer [facility] Comment: Laboratories ADDITIONAL INFORMATION This test was developed and its performance characteristicsdetermined by [facility] in a manner consistent with CLIArequirements. This test has not been cleared or approved bythe U.S. Food and Drug Administration. AUTOMOTIVE SERVICE WRITER-2, CSF Negative <1:2 titer [facility] Comment: Laboratories ADDITIONAL INFORMATION This test was developed and its performance characteristicsdetermined by [facility] in a manner consistent with CLIArequirements. This test has not been cleared or approved bythe U.S. Food and Drug Administration.Test Performed by:[address] [address]Adr Director: Guru Mata M.D. Ph.D.; CLIA# [id number] AUTOMOTIVE SERVICE WRITER-Tr, CSF Negative <1:2 titer [facility] Comment: Laboratories ADDITIONAL INFORMATION This test was developed and its performance characteristicsdetermined by [facility] in a manner consistent with CLIArequirements. This test has not been cleared or approved bythe U.S. Food and Drug Administration. Reflex added None. [facility] Comment: Laboratories ADDITIONAL INFORMATION This test was developed and its performance characteristicsdetermined by [facility] in a manner consistent with CLIArequirements. This test has not been cleared or approved bythe U.S. Food and Drug Administration. Specimen CSF Performing Organization Address City/[facility] [address]/[facility] Code P maame Number [id number] [place], [place] [address] [facility] [address] [facility] [address] * VDRL CSF (01/27/2021 4:00 PM CDT) VDRL CSF Non Reactive Non Canadian:<1:1 [facility] Comment: Performed at: - [address] [id number] Second Operator: Rony Berg MD, Phone: [phone] Specimen CSF Performing Organization Address [facility] [address]/[facility] Code P maame Number [id number] [address] [place], [place] [address] [facility] Interface [id number] [place], [place] [address] [place] [address] * Meningitis/Encephalitis Panel (01/27/2021 4:00 PM CDT) Cryptococcus Not Detected Not Detected [facility] neoformans/gatt [facility] Lab ii Cytomegalovirus Not Detected Not Detected [facility] Lab Enterovirus Not Detected Not Detected [facility] Lab Escherichia Not Detected Not Detected [facility] coli K1 Hospital Lab Haemophilus Not Detected Not Detected [facility] influenzae [facility] Lab Herpes simplex Not Detected Not Detected [facility] virus 1 [facility] Lab Herpes simplex Not Detected Not Detected [facility] virus 2 [facility] Lab Human Not Detected Not Detected [facility] parechovirus [facility] Lab Listeria Not Detected Not Detected [facility] monocytogenes [facility] Lab Neisseria Not Detected Not Detected [facility] meningitidis [facility] Lab Streptococcus Not Detected Not Detected [facility] agalactiae [facility] Lab Streptococcus Not Detected Not Detected [facility] pneumoniae [facility] Lab Varicella Not Detected Not Detected [facility] zoster virus [facility] Lab Specimen CSF Performing Organization Address City/State/ZIP Code P maame Number [address] [address] LAB[address]ATORIES [facility] [address] [place] [address] * Multiple Sclerosis Profile (CSF and Serum) (01/27/2021 4:00 PM CDT) Pathologist [facility] [place] Bands, CSF 7Comment: The value no value bands [facility] originally released by on Laboratories ############### was changed to 7 by IF on 02/02/2021 14:15 CSF Oligoclonal 0 <2 bands [facility] Inter[facility] Comment: Laboratories The oligoclonal band assay detected no unique IgG bands inthe CSF. This is a negative result.Test Performed by:[facility] - [facility] [place] [id number] Director: Guru Mata M.D. Ph.D.; CLIA# [id number] value no value originally released by on ############### was changed to 0 by IF on 02/02/2021 14:15 [place] Free 0.1040 (H) <0.1000 mg/dL [facility] Light Chain, Comment: Laboratories CSF The kappa free light concentration measured in CSFis at or greater than the threshold associated withdemyelinating disease. This is a positive result.These findings, however, are not specific for MSbecause CSF-specific immunoglobulin synthesis mayalso be detected in patients with other neurologic diseases(infectious, inflammatory, cerebrovascular, autoimmune,and paraneoplastic). Clinical correlation recommended. -ADDITIONAL INFORMATION This test has been modified from the city planning engineer'sinstructions. Its performance characteristics weredetermined by [facility] in a manner consistent withCLIA requirements. This test has not been cleared orapproved by the U.S. Food and Drug Administration. Serum Bands 7 bands [facility] Comment: Laboratories Test Performed by:[address] [address]Bej Director: Guru Mata M.D. Ph.D.; CLIA# [id number] value no value originally released by on ############### was changed to 7 by IF on 02/02/2021 14:15 Specimen CSF Performing Organization Address City/[facility] [address]/ZIP Code P maame Number [facility] [address] [place], [place] [address] [facility] [address] [facility] N [address] * Glucose (01/27/2021 4:00 PM CDT) Glucose 195 (H) 70 - 100 mg/dL [facility] Lab Specimen Blood Performing Organization Address City/[facility] [address]/ZIP Code P maame Number [address] [address] LABORATORIES [facility] [address] [place] [address] * Leukemia/Lymphoma Panel Flow Cytometry (01/27/2021 4:00 PM CDT) AP_REPORT-Horiz [facility] on [address] [facility] Lab (unformatted) [address] [address] FLOW CYTOMETRY REPORT Patient Name: ANGELA SANCHES Gender: M : 1940 Specimen Type: Fluid, Cerebrospinal Ordering Physician: AYANA GREEN Collection Date: 01/27/2021 16:00 Ordering Facility: [facility] Received Date: 01/27/2021 16:54 Clinical Information: Cord [...] CD7. The CD4:CD8 ratio is 3.0. Lymphocyte [place] RESULTS Lymphocyte [place] T Cell Markers B Cell Markers Additional Markers CD % Intensity CD % Intensity CD % Intensity 2 98 10 0 45 100 3 96 19 2 3/HLA-DR 10 20 2 5 97 19/5 0 7 72 4 68 8 23 4:8 3 Electronically Signed: Otilia Jo 01/28/2021 5:18 PM Total CD markers tested = 12 : Cell surface markers include CD2, CD3, CD4, CD5, CD7, CD8, CD10, CD19, CD20, CD45, and HLA-DR. Viability was assessed using 7-AAD. This test was developed and its performance characteristics determined by [facility]. It has not been cleared or approved by the Food and Drug Administration (FDA). This test is used for clinical purposes. It should not be regarded as investigational or for research. The laboratory is regulated under CLIA as qualified to perform high-complexity testing and accredited by the [employer] (CAP). 1 Specimen AP_SPECIMEN Performing Organization Address City/State/ZIP Code P maame Number [address] [address] LAB[address]ATORIES [facility] [address] [place] [address] * CSF Cell Count and Differential (01/27/2021 4:00 PM CDT) CSF Color Colorless [facility] CSF Clarity Clear [facility] CSF Absent Absent [facility] Xanthochromia [facility] Lab CSF WBC Count 8 (H) 0 - 5 /uL [facility] CSF RBC Count 0 /uL [facility] Lab Tube Number, 3 [facility] CSF Neutrophils 1 0 - 6 % [facility] Lab CSF Lymphs 84 (H) 40 - 80 % [facility] CSF 15 15 - 45 % [facility] Monocytes/Macro [facility] Lab phages CSF Eosinophils 0 % [facility] CSF Basophils 0 % [facility] CSF Ependymal 0 /100 [facility] ([place]) Cells [facility] Lab CSF Blasts 0 % [facility] CSF Cells 100 [facility] Counted [facility] Lab Specimen CSF Performing Organization Address City/State/ZIP Code P maame Number [facility] [address] [place] [address] [address] [facility] [address] [place] [address] * West Nile Virus IgG+IgM CSF (01/27/2021 4:00 PM CDT) West Nile Virus Negative Negative [facility] IgM CSF Comment: No detectable West Nile Virus IgM Antibody. If a recent infection is suspected, another specimen should be submitted for testing within 7-14 days. Performed at: - Lab[address] [id number] Second Operator: Rony Berg MD, Phone: [phone] West Nile Virus Negative Negative [facility] IgG CSF Comment: No detectable West Nile Virus IgG Antibody. If a recent infection is suspected, another specimen should be submitted for testing within 7-14 days. Specimen CSF Performing Organization Address City/[facility] [address]/[facility] Code P maame Number SLRL [address] [place], [place] [address] [facility] Interface [id number] [address] * NMO/AQP4 IGG FACS, CSF (01/27/2021 4:00 PM CDT) NMO/AQP4-IGG Negative Negative [facility] FACS, CSF Comment: Laboratories Aquaporin-4 antibody testing is more sensitive in serumthan in spinal fluid. Recommend serum testing now if notcompleted, and repeating in 6 months if clinical suspicionis high. Negative result can occur in the setting ofimmunosuppression. ---------ADDITIONAL INFORMATION This test was developed and its performance characteristicsdetermined by [facility] in a manner consistent with CLIArequirements. This test has not been cleared or approved bythe U.S. Food and Drug Administration.Test Performed by:[facility] [place], [place] [address]Gnq Director: Guru Mata M.D. Ph.D.; CLIA# [id number] Specimen CSF Performing Organization Address City/[facility] [address]/ZIP Code P maame Number [facility] [address] [place], [place] [address] [facility] 200 [facility] N [address] * Protein CSF (01/27/2021 4:00 PM CDT) Protein CSF 246 (H) 15 - 60 mg/dL [facility] Lab Specimen CSF Performing Organization Address City/[facility] [address]/[facility] P maame Number [facility] [address] [place] [address] LAB[address] [facility] [address] [place] [address] * Glucose CSF (01/27/2021 4:00 PM CDT) Glucose CSF 126 (H) 40 - 70 mg/dL [facility] Lab Specimen CSF Performing Organization Address City/[facility] [address]/ZIP Code P maame Number [facility] [address] [place] [address] LABORATORIES [facility] [address] [place] [address] * Culture, Spinal Fluid with Gram Stain (01/27/2021 4:00 PM CDT) Gram Stain No white blood cells seen [facility] Lab Gram Stain No organisms seen [facility] Culture Result No growth at [address] [facility] Lab Specimen CSF Performing Organization Address City/[facility] [address]/ZIP Code P maame Number [place] [address] LABORATORIES [facility] [address] [place] [address] * MRI Outside images for PACS Spine (01/27/2021 2:38 PM CDT) Only the most recent of 5 results within the time period is included. Specimen Performing Organization Address City/[facility] [address]/ZIP Code P maame Number [facility] * Cytology Non-Machine Brusher (01/27/2021 2:23 PM CDT) Specimen CSF Narrative Performed At [facility] CYTOLOGY REPORT PATIENT: ANGELA SANCHES /AGE/SEX: 1940 (Age: 80) /M ID #: [id number] SUBMITTING PHYSICIAN: JAKUB Nieves CLIENT: [facility] COLLECTED: 01/27/2021 REPORTED: 02/01/2021 SPECIMEN #: [id number] ##################MICROSCOPIC INTERPRET ATION################## Cerebral spinal fluid, lumbar puncture (thin prep): -Few lymphocytes. -No acute inflammation is identifi ed. -Flow cytometry showed no definite immunophenotypic evidence of non-Hodgkin's B-cell or T-cell lymphoma. See separate flow cytometry report for the complete analysis. -Negative for malignant cells. Ramos Cisneros MD Report Electronically Signed Out SLL:02/01/21 SLL() CLINICAL HISTORY/IMPRESSION: None provided. SPECIMEN LABELED: Cerebrospinal fluid GROSS DESCRIPTION: Cerebrospinal fluid: Received 1 mL vivi r fluid. Prepared 1 ThinPrep. Technical Component performed at [address] [id number]###END OF REPORT### Performing Organization Address City/[facility] [address]/ZIP Code P maame Number [facility] [address] [place], [place] [address] [address] * Complete Blood Count (01/27/2021 10:42 AM CDT) WBC 6.22 4.00 - 11.00 TH/uL [facility] RBC 4.52 4.31 - 5.84 MIL/uL [facility] Hemoglobin 14.8 13.0 - 17.0 g/dL [facility] Hematocrit 44 40 - 50 % [facility] MCV 97 80.0 - 99.[address] [facility] MCH 33 27.0 - 34.[address] [facility] MCHC 34 32 - 36 % [facility] RDW 12.3 11.5 - 14.5 % [facility] Platelet Count 152 140 - 400 TH/uL [facility] MPV 12.1 9.4 - 12.[address] fL [facility] Nucleated RBCs 0 0 - 0 /[address] [facility] Specimen Blood Performing Organization Address City/[facility] [address]/ZIP Code P maame Number [address] [address] LABORATORIES [facility] [address] [place] [address] * SARS-COV-2, ADENIKE (COVID-19) (01/26/2021 10:55 PM CDT) SARS-CoV-2 PCR NegativeComment: This RT-PCR Negative [facility] test has been authorized by Hospital Lab the FDA under an Emergency Use Authorization (EUA) for use by authorized laboratories. Performed on the [employer] Aptima SARS-CoV-2 assay, which utilizes [employer] Tech Mediated Amplification (TMA) technology Specimen NASOPHARYNGEAL SWAB Performing Organization Address City/[facility] [address]/[facility] P maame Number [address] [address] LABORATORIES [facility] [address] [place] [address] documented in this encounter Visit Diagnoses Diagnosis Spinal cord compression (HCC) - Primary Unspecified disease of spinal cord Spinal cord mass (HCC) Essential hypertension Unspecified essential hypertension Hemiplegia, unspecified etiology, unspe cified hemiplegia type, unspecified laterality (HCC) PAF (paroxysmal atrial fibrillation) (H CC) Atrial fibrillation Type 2 diabetes mellitus without compli cation, without long-term current use of insulin (HCC) Acute cystitis without hematuria Encounter for consultation Acute left hemiparesis (HCC) Unspecified hemiplegia affecting unspec ified side Impaired mobility and ADLs Neurogenic bladder Neurogenic bladder, NOS Type 2 diabetes mellitus with diabetic polyneuropathy, unspecified whether detention insulin use (HCC) Urinary tract infection without hematur ia, site unspecified Constipation, unspecified constipation type BAM (obstructive sleep apnea) Obstructive sleep apnea (adult) (pediat melissa) Diabetic polyneuropathy associated with type 2 diabetes mellitus (HCC) Hepatic hemangioma Hemangioma of other sites Cervical myelopathy (HCC) Cervical spondylosis with myelopathy LFT elevation Thrombocytopenia (HCC) Unspecified thrombocytopenia Hypotension Unspecified hypotension Urinary retention Unspecified retention of urine Chronic systolic heart failure (HCC) Chronic systolic heart failure documented in this encounter Administered Medications Action Date Dose Rate Site Medication Order MAR Action acetaminophen (TYLENOL) suppository 325-650 mg 325-650 mg, Rectal, Every 6 hours PRN, mild pain (pain score 1-3), fever, Starting on Sun01/26/21 at 2153, Administer if patient unable to tolerat e oral medications. acetaminophen (TYLENOL) tablet 325-650 mg 325-650 mg, Oral, Every 6 hours PRN, mild pain (pain score 1-3), fever, Starting on Sun01/26/21 at 2153, Do not exceed 4 GM/DAY of acetaminophen. If 6 5 or older do not exceed 3 GM/DAY. If chronic alcoholic do not exceed 2 GM/DAY. 02/04/2021 12:41 PM CDT 500 mL 100 mL/hr albumin 5 % bottle 500 mL New Bag 500 mL, Intravenous, at 100 mL/hr, Once , On Sun02/04/21 at 1200, For 1 dose 02/10/2021 8:53 AM CDT 5 mg apixaban (ELIQUIS) tablet 5 mg Given 5 mg, Oral, 2 times daily, First dose o n 01/31/21 at 1245 5 mg Given 02/09/2021 8:35 PM CDT 5 mg Given 02/09/2021 9:39 AM CDT 02/02/2021 8:49 AM CDT 1 g cefTRIAXone (ROCEPHIN) injection 1 g Given 1 g, Intravenous, Daily, Indications: UTI, First dose on Sun01/26/21 at 2215, If giving IV push, reconstitute each vial with 10 ml sterile water and give over 3-5 minutes. If sterile water is unavailable, may use Bacteriostatic Water or Normal Saline for reconstitution 1 g Given 02/01/2021 10:41 AM CDT 1 g Given 01/31/2021 8:23 AM CDT 01/28/2021 2:39 PM CDT 4 mg dexamethaSONE (DECADRON) injection 4 mg Given 4 mg, Intravenous, Every 6 hours scheduled, First dose on Sun01/26/21 at 2145, For 9 doses 4 mg Given 01/28/2021 6:27 AM CDT 4 mg Given 01/27/2021 11:21 PM CDT 02/05/2021 1:59 AM CDT 250 mcg digoxin (LANOXIN) injection 250 mcg Given 250 mcg, Intravenous, Every 8 hours, First dose on Sun02/04/21 at 1800, For 2 doses 250 mcg Given 02/04/2021 5:49 PM CDT 02/04/2021 12:51 PM CDT 500 mcg digoxin (LANOXIN) injection 500 mcg Given 500 mcg, Intravenous, Once, On Sun02/04/21 at 1300, For 1 dose 02/09/2021 6:12 PM CDT 125 mcg digoxin (LANOXIN) tablet 125 mcg Given 125 mcg, Oral, Every evening, First dos e on 02/05/21 at 1800 125 mcg Given 02/08/2021 5:38 PM CDT 125 mcg Given 02/07/2021 6:10 PM CDT 02/09/2021 8:35 PM CDT 100 mg docusate sodium (COLACE) capsule 100 mg Given 100 mg, Oral, 2 times daily, First dose (after last modification) on Sun 1 at 1015, Swallow capsule whole 100 mg Given 02/09/2021 9:38 AM CDT 100 mg Given 02/08/2021 8:20 AM CDT 01/27/2021 9:13 PM CDT 20 mL gadobenate dimeglumine (MULTIHANCE) 529 Given mg/mL (0.1mmol/0.2mL) injection 20 mL 20 mL, Intravenous, Once in imaging, contrast, Starting on Kadi 01/27/21 at 1956, For 1 dose glucagon (GLUCAGEN) injection 1 mg 1 mg, Intramuscular, As needed, low blood sugar, low blood sugar, Starting on Sun01/26/21 at 2152, Give if patient NPO and no IV access. May give IM or SQ in arm and turn patient on side. Reconstitute powder for injection by adding 1 mL of city planning engineer-supplied sterile diluent or sterile water for injection to a vial containing 1 unit o f the drug, to provide solutions containing 1 mg of glucagon/mL. Shake vial gently to dissolve. glucagon (GLUCAGEN) injection 1 mg 1 mg, Subcutaneous, As needed, low bloo d sugar, low blood sugar, Starting on Sun01/26/21 at 2152, Give if patient NPO an d no IV access. May give IM or SQ in arm and turn patient on side. Reconstitute powder for injection by adding 1 mL of city planning engineer-supplied sterile diluent o r sterile water for injection to a vial containing 1 unit of the drug, to provide solutions containing 1 mg of glucagon/mL. Shake vial gently to dissolve. 01/31/2021 5:59 AM CDT 5,000 Units Left Low er Abdomen heparin (porcine) 5,000 unit/mL Given injection 5,000 Units 5,000 Units, Subcutaneous, Every 8 hours, First dose on Sun01/28/21 at 140 0 5,000 Units Left Lower Abdomen Given 01/30/2021 8:28 PM CDT 5,000 Units Right Lower Abdomen Given 01/30/2021 2:00 PM CDT 02/02/2021 8:33 PM CDT 12 Units Right Lo wer Abdomen insulin glargine (LANTUS) injection 12 Given Units 12 Units, Subcutaneous, Nightly, First dose (after last modification) on Tu02/01/21 at 2100 12 Units Right Arm Given 02/01/2021 8:44 PM CDT 01/31/2021 9:45 AM CDT 5 Units Left Low er Abdomen insulin glargine (LANTUS) injection 5 Given Units 5 Units, Subcutaneous, Once, On 01/31/21 at 0900, For 1 dose 02/09/2021 8:35 PM CDT 5 Units Right Lo wer Abdomen insulin glargine (LANTUS) injection 5 Given Units 5 Units, Subcutaneous, Nightly, First dose (after last modification) on Kadi 02/03/21 at 2100 5 Units Right Upper Abdomen Given 02/08/2021 8:43 PM CDT 5 Units Left Arm Given 02/07/2021 8:21 PM CDT 01/31/2021 8:49 PM CDT 8 Units Left Low er Abdomen insulin glargine (LANTUS) injection 8 Given Units 8 Units, Subcutaneous, Nightly, First dose on Sun01/31/21 at 2100 02/09/2021 11:30 AM CDT 3 Units Left Arm insulin lispro (HumaLOG) injection 2-7 Given Units 2-7 Units, Subcutaneous, 4 times daily before meals and nightly, First dose on Sun01/26/21 at 2215, LEVEL 3 - Give in addition to scheduled mealtime insulin per table DO NOT GIVE for any 2 hours post meal fingerstick blood glucose checks. If pt NPO or on continuous enteral/parenteral nutrition - give wit h scheduled fingerstick blood glucose check - dose per table Glucose (mg/dL) Dose 0-120 0 units 121-150 0 units 151-200 2 units 201-250 3 units 251-300 4 units 301-350 5 units 351-400 6 units >400 7 units Bedtime Admin Instructions: If glucose level is less than 200, do not give any correction dose If glucose level is 200 or greater give correction dose according to sliding scale (see below) and check BG @ 0000 and 0300 LEVEL 3 - Bedtime Only Glucose (mg/dL) Dose 0-199 0 units 200-250 3 units 251-300 4 units 301-350 5 units 351-400 6 units >400 7 units 3 Units Left Arm Given 02/08/2021 11:30 AM CDT 2 Units Right Arm Given 02/07/2021 5:00 PM CDT 02/01/2021 8:26 AM CDT 5 Units Left Arm insulin lispro (HumaLOG) injection 5 Given Units 5 Units, Subcutaneous, 3 times daily before meals, First dose on Sun01/31/21 at 0815 5 Units Right Arm Given 01/31/2021 12:07 PM CDT 5 Units Left Arm Given 01/31/2021 8:15 AM CDT 02/10/2021 8:54 AM CDT 8 Units Left Arm insulin lispro (HumaLOG) injection 8 Given Units 8 Units, Subcutaneous, 3 times daily before meals, First dose (after last modification) on Sun02/01/21 at 1130 8 Units Left Arm Given 02/09/2021 5:00 PM CDT 8 Units Left Lower Abdomen Given 02/09/2021 11:30 AM CDT 02/06/2021 4:27 PM CDT 100 mL iohexoL (OMNIPAQUE) 350 mg iodine/mL Given injection 1-500 mL 1-500 mL, Intravenous, Once in imaging, contrast, Starting on [place]ont 02/06/21 at 1625, For 1 dose 02/03/2021 3:39 PM CDT 1,000 mL 983.61 mL/hr lactated ringers bolus 1,000 mL New Bag 1,000 mL, Intravenous, Administer over 61 Minutes, Once, On Kadi 02/03/21 at 1445, For 1 dose 01/27/2021 4:15 PM CDT 5 mL Other lidocaine (pf) (XYLOCAINE-MPF) 10 mg/mL Given (1 %) injection Code/trauma/sedation medication, Starting on [facility] 01/27/21 at 1615 01/27/2021 7:14 PM CDT 0.5 mg LORazepam (ATIVAN) injection 0.5-1 mg Given 0.5-1 mg, Intravenous, Once, On [facility] 01/27/21 at 1030, For 1 dose, For MRI Maximum IV push rate of 2 mg/min; max IVP dose is 4 mg. 01/27/2021 8:47 AM CDT 50 mg losartan (COZAAR) tablet 50 mg Given 50 mg, Oral, Daily, First dose on Sun01/26/21 at 2215 50 mg Given 01/26/2021 10:41 PM CDT 01/30/2021 10:15 AM CDT 296 mL magnesium citrate (CITROMA) solution 296 Given mL 296 mL, Oral, Once, On Sun01/30/21 at 1015, For 1 dose 02/01/2021 8:44 PM CDT 6 mg melatonin tablet 6 mg Given 6 mg, Oral, Nightly, First dose (after last modification) on Sun01/28/21 at 2030, For 5 doses 6 mg Given 01/31/2021 8:49 PM CDT 6 mg Given 01/30/2021 8:27 PM CDT 02/01/2021 8:30 AM CDT 1,000 mg 66 mL/hr methylPREDNISolone sodium succinate New Bag (SOLU-Medrol) 1,000 mg in dextrose (D5W ) 5 % 50 mL IVPB 1,000 mg, Intravenous, at 66 mL/hr, Every 24 hours scheduled, First dose on Sun01/28/21 at 1700, For 5 doses, STORE AT ROOM TEMPERATURE 1,000 mg 66 mL/hr New Bag 01/31/2021 9:45 AM CDT 1,000 mg 66 mL/hr New Bag 01/30/2021 9:10 AM CDT metoclopramide (REGLAN) injection 5 mg 5 mg, Intravenous, Every 6 hours PRN, nausea/vomiting (3rd line), Starting on Sun01/26/21 at 2153 metoclopramide (REGLAN) injection 5 mg 5 mg, Intramuscular, Every 6 hours PRN, nausea/vomiting (3rd line), Starting on Sun01/26/21 at 2153, Administer if patient does not have IV access. 02/06/2021 7:32 PM CDT 5 mg metoprolol (LOPRESSOR) injection 5 mg Given 5 mg, Intravenous, Every 4 hours PRN, high blood pressure, rate control, HR > 100, Starting on Sun02/04/21 at 1506 02/03/2021 8:43 AM CDT 100 mg metoprolol succinate (TOPROL-XL) 24 hr Given tablet 100 mg 100 mg, Oral, Daily, First dose (after last modification) on Sun02/02/21 at 0900, Hold if HR < 55 or SBP < 95. DO NOT CRUSH OR CHEW. 100 mg Given 02/02/2021 8:47 AM CDT 02/07/2021 8:41 AM CDT 200 mg metoprolol succinate (TOPROL-XL) 24 hr Given tablet 200 mg 200 mg, Oral, Daily, First dose on Sun02/04/21 at 1530, DO NOT CRUSH OR CHEW. 200 mg Given 02/06/2021 9:51 AM CDT 200 mg Given 02/05/2021 9:07 AM CDT 01/31/2021 8:23 AM CDT 300 mg metoprolol succinate (TOPROL-XL) 24 hr Given tablet 300 mg 300 mg, Oral, Daily, First dose on Sun01/26/21 at 2215, Hold if HR < 55 or SBP < 95. DO NOT CRUSH OR CHEW. 300 mg Given 01/30/2021 9:01 AM CDT 300 mg Given 01/29/2021 10:26 AM CDT 02/10/2021 8:53 AM CDT 300 mg metoprolol succinate (TOPROL-XL) 24 hr Given tablet 300 mg 300 mg, Oral, Daily, First dose (after last modification) on Sun02/08/21 at 0900, DO NOT CRUSH OR CHEW. 300 mg Given 02/09/2021 9:37 AM CDT 300 mg Given 02/08/2021 8:20 AM CDT 02/03/2021 6:04 AM CDT 40 mg pantoprazole (PROTONIX) EC tablet 40 mg Given 40 mg, Oral, Daily, First dose on Sun01/28/21 at 1700, For 7 doses, DO NOT CRUSH OR CHEW. 40 mg Given 02/02/2021 5:31 AM CDT 40 mg Given 02/01/2021 6:02 AM CDT 02/05/2021 1:12 PM CDT 3.375 g 100 mL/hr piperacillin-tazobactam (ZOSYN) IVPB New Bag 3.375 g (premix) 3.375 g, Intravenous, at 100 mL/hr, Every 6 hours scheduled, Indications: SEPSIS, First dose (after last modification) on Sun02/04/21 at 1500 3.375 g 100 mL/hr New Bag 02/05/2021 6:24 AM CDT 3.375 g 100 mL/hr New Bag 02/04/2021 11:37 PM CDT 02/09/2021 9:37 AM CDT 17 g polyethylene glycol (GLYCOLAX) packet 17 Given g 17 g, Oral, Daily PRN, constipation, constipation, Starting on Sun01/26/21 a t 2153, Mix in 4-8 ounces of liquid. Hold these medications if patient has had loose stool or diarrhea within previous 24 hours. 17 g Given 02/02/2021 8:49 AM CDT 17 g Given 02/01/2021 8:25 AM CDT potassium bicarb-citric acid (EFFER-K) effervescent tablet 20 mEq 20 mEq, Oral, As needed, standard electrolyte replacement, Starting on 01/26/21 at 2153, Administer if unable t o swallow potassium tablets. Replace in addition to any scheduled potassium doses. Administer 20 mEq every hour x 2 doses (total dose = 40 mEq) for potassium level 3.0 to 3.4 mg/dL. Repea t potassium level in AM. Administer 20 mE q every hour x 3 doses (total dose = 60 mEq) for potassium level less than or equal to 2.9. Repeat potassium level 4 hours after last oral dose administered . Administer only if serum creatinine is less than 2 within the previous 48 hour s and sustained urine output is greater than 20 mL/hr for 6 hours (if able to monitor). Completely dissolve tablet in 3 to 4 ounces (90-120 mL) of cold juice or water before administering. For flui d restricted patients, a smaller volume may be used to dilute (e.g. 15-30 mL). potassium chloride (KLOR-CON) CR tablet 20 mEq 20 mEq, Oral, As needed, standard electrolyte replacement, Starting on 01/26/21 at 2153, Replace in addition to any scheduled potassium doses. Administer 20 mEq every hour x 2 doses (total dose = 40 mEq) for potassium level 3.0 to 3.4 mg/dL. Repeat potassiu m level in AM. Administer 20 mEq every hour x 3 doses (total dose = 60 mEq) fo r potassium level less than or equal to 2.9. Repeat potassium level 4 hours after last oral dose administered. Administer only if serum creatinine is less than 2 within the previous 48 hour s and sustained urine output is greater than 20 mL/hr for 6 hours (if able to monitor). DO NOT CRUSH OR CHEW. potassium chloride 20 mEq in 100 mL IVP B 20 mEq, Intravenous, Administer over 2 Hours, As needed, standard electrolyte replacement, Starting on Sun01/26/21 at 2153, Administer if unable to take oral potassium. Replace in addition to any scheduled potassium doses. Administer 20 mEq x 2 doses (total dose = 40 mEq) for potassium level 3.0 to 3.4 mg/dL. Repeat potassium level in AM. Administe r 20 mEq x 3 doses (total dose = 60 mEq) for potassium level less than or equal to 2.9. Repeat potassium level 2 hours after last infusion complete. Administer only if serum creatinine is less than 2 within the previous 48 hour s and sustained urine output is greater than 20 mL/hr for 6 hours (if able to monitor). Potassium chloride should be infused at a rate of 10 mEq/hr through a peripheral line, or at a rate of 20 mEq/hr through a central line. prochlorperazine (COMPAZINE) injection 2.5-5 mg 2.5-5 mg, Intravenous, Every 4 hours PRN, nausea/vomiting (1st line), Starting on Sun01/26/21 at 2153, May repeat 2.5 mg dose x 1 after 30 minutes if first dose ineffective. Do not exceed a total dose of 40 mg within a 2 4 hour period. Rate of administration should not exceed 5 mg/minute. prochlorperazine (COMPAZINE) injection 2.5-5 mg 2.5-5 mg, Intramuscular, Every 4 hours PRN, nausea/vomiting (1st line), Starting on Sun01/26/21 at 2153, Administer if patient does not have IV access. May repeat 2.5 mg dose x 1 afte r 60 minutes if first dose ineffective. Do not exceed a total dose of 40 mg within a 24 hour period. prochlorperazine (COMPAZINE) suppositor y 25 mg 25 mg, Rectal, Every 12 hours PRN, nausea/vomiting (1st line), Starting on Sun01/26/21 at 2153, Administer if patient does not have IV access and refuses IM injection. 02/05/2021 1:12 PM CDT 25 mL 100 mL/hr sodium chloride 0.9% (NS) flush bag New Bag 25 mL, Intravenous, at 100 mL/hr, Continuous PRN, to flush line, Starting on Sun02/04/21 at 1753, Only use a Ne w Bag action if you are hanging a new bag This bag expires 24 hours after hanging. To be implemented as an intravenous flush following intermitten t infusions where there is no primary infusion. Patients with fluid restrictions may be excluded. 25 mL 100 mL/hr New Bag 02/05/2021 6:24 AM CDT 25 mL 100 mL/hr New Bag 02/04/2021 11:35 PM CDT 02/01/2021 5:18 PM CDT 1,000 mL 200 mL/hr sodium chloride 0.9% (NS) IV Bolus New Bag 1,000 mL, Intravenous, Administer over 121 Minutes, Once, On 02/01/21 at 1700, For 1 dose 02/03/2021 8:41 AM CDT 1,000 mL sodium chloride 0.9% (NS) IV Bolus New Bag 1,000 mL, Intravenous, Once, On Kadi 02/03/21 at 0845, For 1 dose 02/04/2021 3:50 PM CDT 250 mL 937.5 mL/hr sodium chloride 0.9% (NS) IV Bolus New Bag 250 mL, Intravenous, Administer over 16 Minutes, Once, On 02/04/21 at 1530, For 1 dose 02/09/2021 1:30 PM CDT 200 mL sterile water irrigation irrigation Given solution Starting on Sun02/09/21 at 1323, For 1 dose, Ginna Mcfarlane: cabinet override documented in this encounter Active and Recently Administered Medications Times are shown in CDT. 02/09/2021 02/10/2021 Medication Order 02/08/2021 0939 (Given - Provider: Maria Teresa hoffmann)2034 (Given - Provider: Krista Cast RN) 0853 (Given - Provider: Gertrude Mauricio RN) apixaban (ELIQUIS) tablet 5 mg 0820 (Given - 5 mg, Oral, 2 times daily, First dose on Provider: Zeyad pulido 01/31/21 at 1245 Theo Mathew RN)2042 (Given - Provider: Josue Barrett RN) 1811 (Given - Provider: Alton Mathew RN) digoxin (LANOXIN) tablet 125 mcg 1737 (Given - 125 mcg, Oral, Every evening, First dose Provider: Zeyad pulido on 02/05/21 at 1800 Theo Mathew RN) 0938 (Given - Provider: Maria Teresa hoffmann)2034 (Given - Provider: Krista Cast RN) 0853 (Not Given - Provider: Gertrude garcia RN - Reason: Other - Comment: loose stools) docusate sodium (COLACE) capsule 100 mg 0820 (Given - 100 mg, Oral, 2 times daily, First dose Provider: He nrry (after last modification) on 01/30/21 Theo salomon, at 1015, Swallow capsule whole RN)2100 (Not Given - Provider: Josue Barrett RN - Reason: Patient/family refused) 2034 (Given - Provider: Krista Cast RN) insulin glargine (LANTUS) injection 5 2042 (Given - Units Provider: Josue Ye 5 Units, Subcutaneous, Nightly, First Arnold RN) dose (after last modification) on Sun02/03/21 at 2100 0730 (Not Given - Provider: Alton Mathew RN - Reason: Order parameters not met)1130 (Given - Provider: Alton Mathew RN)1700 (Not Given - Provider: Alton Mathew RN - Reason: Order parameters not met) 2100 (Not Given - Provider: Krista Cast RN - Reason: Order parameters not met) 0730 (Not Given - Provider: Gertrude garcia RN - Reason: Order parameters not met) insulin lispro (HumaLOG) injection 2-7 0730 (Not Giv en - Units Provider: Alton 2-7 Units, Subcutaneous, 4 times daily Theo joseph RN before meals and nightly, First dose on - Reason: Or kathy 01/26/21 at 2215, LEVEL 3 - Give in parameters no t addition to scheduled mealtime insulin met)1130 (Giv en - per table DO NOT GIVE for any 2 hours Provider: Rajendra velazco post meal fingerstick blood glucose bonnie Young. If pt NPO or on continuous RN)1700 (Not Give n - enteral/parenteral nutrition - give with Provider: H enrry scheduled fingerstick blood glucose Theo Mathew RN check - dose per table Glucose (mg/dL) - Reason: Or kathy Dose 0-120 parameters not 0 units 121-150 met)2100 (Not Given 0 units 151-200 - Provider: Josue Ye 2 units 201-250 3 XIOMARA Barrett - Reason: units 251-300 4 Order paramete rs not units 301-350 5 met) units 351-400 6 units >400 7 units Bedtime Admin Instructions: If glucose level is less than 200, do not give any correction dose If glucose level is 200 or greater give correction dose according to sliding scale (see below) and check BG @ 0000 and 0300 LEVEL 3 - Bedtime Only Glucose (mg/dL) Dose 0-199 0 units 200-250 3 units 251-300 4 units 301-350 5 units 351-400 6 units >400 7 units 0938 (Given - Provider: Maria Teresa Yañez er)1130 (Given - Provider: Alton Mathew RN)1700 (Given - Provider: Alton Mathew RN) 0854 (Given - Provider: Gertrude Mauricio RN) insulin lispro (HumaLOG) injection 8 0820 (Given - Units Provider: Alton 8 Units, Subcutaneous, 3 times daily Theo Mathew , before meals, First dose (after last RN)1130 (Given - modification) on Sun02/01/21 at 1130 Provider: Venkatesh Mathew RN)1700 (Given - Provider: Alton Mathew RN) 0937 (Given - Provider: Maria Teresa hoffmann) 0853 (Given - Provider: Gertrude Mauricio RN) metoprolol succinate (TOPROL-XL) 24 hr 0820 (Given - tablet 300 mg Provider: Alton 300 mg, Oral, Daily, First dose (after Theo joseph RN) last modification) on Sun02/08/21 at 0900, DO NOT CRUSH OR CHEW. 02/09/2021 02/10/2021 Medication Order 02/08/2021 acetaminophen (TYLENOL) suppository 325-650 mg(Linked Group 1) 325-650 mg, Rectal, Every 6 hours PRN, mild pain (pain score 1-3), fever, Starting on Sun01/26/21 at 2153, Administer if patient unable to tolerat e oral medications. acetaminophen (TYLENOL) tablet 325-650 mg(Linked Group 1) 325-650 mg, Oral, Every 6 hours PRN, mild pain (pain score 1-3), fever, Starting on Sun01/26/21 at 2153, Do not exceed 4 GM/DAY of acetaminophen. If 6 5 or older do not exceed 3 GM/DAY. If chronic alcoholic do not exceed 2 GM/DAY. benzocaine-menthoL (CEPACOL) lozenge 1 lozenge 1 lozenge, Buccal, Every 1 hour prn, sore throat, Starting on Sun01/26/21 at 2153 bisacodyL (DULCOLAX) suppository 10 mg 10 mg, Rectal, Daily PRN, constipation, constipation in patients who are NPO, i n patients who have nausea, or in patient s where there is any concern about ileus or bowel obstruction., Starting on Sun01/26/21 at 2153, Hold these medications if patient has had loose stool or diarrhea within previous 24 hours. dextrose (D50W) 50 % injection 25-50 mL 25-50 mL, Intravenous, As needed, low blood sugar, for 24 hours., Starting on Sun01/26/21 at 2152, Give if patient [employer] O and IV access already available. If no IV access give Glucagon SQ or IM in arm and turn patient on side. For blood glucose (BG): Less than 50 mg/dL: Giv e D50W 50 mL. Check BG every 15 minutes and repeat until greater than 80 mg/dL. Less than 70 mg/dL: Give D50W 25 mL. Check BG every 15 minutes and repeat until greater than 80 mg/dL. Less than 70 mg/dL and patient unconscious: Give D50W 50 mL. Call physician for additional orders. Check BG every 15 minutes and repeat until greater than 8 0 mg/dL. Once blood glucose greater bonnie n 80 mg/dL, check BG in one hour. Call physician if less than 70 mg/dL. glucagon (GLUCAGEN) injection 1 mg(Linked Group 2) 1 mg, Intramuscular, As needed, low blood sugar, low blood sugar, Starting on Sun01/26/21 at 2152, Give if patient NPO and no IV access. May give IM or SQ in arm and turn patient on side. Reconstitute powder for injection by adding 1 mL of city planning engineer-supplied sterile diluent or sterile water for injection to a vial containing 1 unit o f the drug, to provide solutions containing 1 mg of glucagon/mL. Shake vial gently to dissolve. glucagon (GLUCAGEN) injection 1 mg(Linked Group 2) 1 mg, Subcutaneous, As needed, low bloo d sugar, low blood sugar, Starting on Sun01/26/21 at 2152, Give if patient NPO an d no IV access. May give IM or SQ in arm and turn patient on side. Reconstitute powder for injection by adding 1 mL of city planning engineer-supplied sterile diluent o r sterile water for injection to a vial containing 1 unit of the drug, to provide solutions containing 1 mg of glucagon/mL. Shake vial gently to dissolve. glucose chewable tablet 16-32 g 16-32 g, Oral, As needed, low blood sugar, Starting on Sun01/26/21 at 2152, Give food, drink, or glucose tablets to treat low blood glucose if patient able to eat. For blood glucose (BG): Less than 50 mg/dL: Give 30 g of carbohydrat e (32 g if using glucose tablets). Check BG every 15 minutes and repeat until greater than 80 mg/dL. Less than 70 mg/dL: Give 15 g of carbohydrate (16 g if using glucose tablets). Check BG every 15 minutes and repeat until greater than 80 mg/dL. Less than 70 mg/dL and patient unconscious: BG to be treated with D50W until greater than 80 mg/dL. Once BG greater than 80 mg/dL, give 30 g of carbohydrate (32 g if usin g glucose tablets) if patient awake and able to swallow. Once blood glucose greater than 80 mg/dL, check BG in one hour. Call physician if less than 70 mg/dL. guaiFENesin (ROBITUSSIN) 100 mg/5 mL syrup 200 mg 200 mg, Oral, Every 4 hours PRN, cough, Starting on Sun01/26/21 at 215 magnesium sulfate IVPB 2 gram (premix) 2 g, Intravenous, at 25 mL/hr, As needed, standard electrolyte replacement, Starting on Sun01/26/21 at 215, Replace in addition to any scheduled magnesium doses. Administer 2 grams over 2 hours for magnesium level less than or equal to 1.4 mg/dL. Repeat magnesium level in AM. Administer only if serum creatinine is less than 2 within the previous 48 hours and sustained urine output is greater than 20 mL/hr for 6 hours (if able to monitor). metoclopramide (REGLAN) injection 5 mg(Linked Group 3) 5 mg, Intravenous, Every 6 hours PRN, nausea/vomiting (3rd line), Starting on Sun01/26/21 at 2153 metoclopramide (REGLAN) injection 5 mg(Linked Group 3) 5 mg, Intramuscular, Every 6 hours PRN, nausea/vomiting (3rd line), Starting on Sun01/26/21 at 215, Administer if patient does not have IV access. metoprolol (LOPRESSOR) injection 5 mg 5 mg, Intravenous, Every 4 hours PRN, high blood pressure, rate control, HR > 100, Starting on Sun02/04/21 at 1506 miconazole nitrate (ALOE VESTA) 2 % ointment Topical, 3 times daily PRN, perineal or skin fold redness, Starting on Sun01/26/21 at 2153, Consult wound care if no improvement within 3 days. ondansetron (ZOFRAN) injection 4 mg 4 mg, Intravenous, Every 6 hours PRN, nausea/vomiting (2nd line), Starting on Sun01/26/21 at 2153 0937 (Given - Provider: Maria Teresa hoffmann) polyethylene glycol (GLYCOLAX) packet 1 7 g 17 g, Oral, Daily PRN, constipation, constipation, Starting on Sun01/26/21 a t 2153, Mix in 4-8 ounces of liquid. Hold these medications if patient has had loose stool or diarrhea within previous 24 hours. potassium bicarb-citric acid (EFFER-K) effervescent tablet 20 mEq(Linked Group 4) 20 mEq, Oral, As needed, standard electrolyte replacement, Starting on 01/26/21 at 2153, Administer if unable t o swallow potassium tablets. Replace in addition to any scheduled potassium doses. Administer 20 mEq every hour x 2 doses (total dose = 40 mEq) for potassium level 3.0 to 3.4 mg/dL. Repea t potassium level in AM. Administer 20 mE q every hour x 3 doses (total dose = 60 mEq) for potassium level less than or equal to 2.9. Repeat potassium level 4 hours after last oral dose administered . Administer only if serum creatinine is less than 2 within the previous 48 hour s and sustained urine output is greater than 20 mL/hr for 6 hours (if able to monitor). Completely dissolve tablet in 3 to 4 ounces (90-120 mL) of cold juice or water before administering. For flui d restricted patients, a smaller volume may be used to dilute (e.g. 15-30 mL). potassium chloride (KLOR-CON) CR tablet 20 mEq(Linked Group 4) 20 mEq, Oral, As needed, standard electrolyte replacement, Starting on 01/26/21 at 2153, Replace in addition to any scheduled potassium doses. Administer 20 mEq every hour x 2 doses (total dose = 40 mEq) for potassium level 3.0 to 3.4 mg/dL. Repeat potassiu m level in AM. Administer 20 mEq every hour x 3 doses (total dose = 60 mEq) fo r potassium level less than or equal to 2.9. Repeat potassium level 4 hours after last oral dose administered. Administer only if serum creatinine is less than 2 within the previous 48 hour s and sustained urine output is greater than 20 mL/hr for 6 hours (if able to monitor). DO NOT CRUSH OR CHEW. potassium chloride 20 mEq in 100 mL IVPB(Linked Group 4) 20 mEq, Intravenous, Administer over 2 Hours, As needed, standard electrolyte replacement, Starting on Sun01/26/21 at 3, Administer if unable to take oral potassium. Replace in addition to any scheduled potassium doses. Administer 20 mEq x 2 doses (total dose = 40 mEq) for potassium level 3.0 to 3.4 mg/dL. Repeat potassium level in AM. Administe r 20 mEq x 3 doses (total dose = 60 mEq) for potassium level less than or equal to 2.9. Repeat potassium level 2 hours after last infusion complete. Administer only if serum creatinine is less than 2 within the previous 48 hour s and sustained urine output is greater than 20 mL/hr for 6 hours (if able to monitor). Potassium chloride should be infused at a rate of 10 mEq/hr through a peripheral line, or at a rate of 20 mEq/hr through a central line. prochlorperazine (COMPAZINE) injection 2.5-5 mg(Linked Group 5) 2.5-5 mg, Intravenous, Every 4 hours PRN, nausea/vomiting (1st line), Starting on Sun01/26/21 at 2153, May repeat 2.5 mg dose x 1 after 30 minutes if first dose ineffective. Do not exceed a total dose of 40 mg within a 2 4 hour period. Rate of administration should not exceed 5 mg/minute. prochlorperazine (COMPAZINE) injection 2.5-5 mg(Linked Group 5) 2.5-5 mg, Intramuscular, Every 4 hours PRN, nausea/vomiting (1st line), Starting on Sun01/26/21 at 3, Administer if patient does not have IV access. May repeat 2.5 mg dose x 1 afte r 60 minutes if first dose ineffective. Do not exceed a total dose of 40 mg within a 24 hour period. prochlorperazine (COMPAZINE) suppositor y 25 mg(Linked Group 5) 25 mg, Rectal, Every 12 hours PRN, nausea/vomiting (1st line), Starting on Sun01/26/21 at 2153, Administer if patient does not have IV access and refuses IM injection. sodium chloride (OCEAN) 0.65 % nasal spray 1 spray 1 spray, Each Nare, As needed, irritation, Starting on Sun01/26/21 at 2153 sodium chloride 0.9% (NS) flush bag 25 mL, Intravenous, at 100 mL/hr, Continuous PRN, to flush line, Starting on Sun02/04/21 at 1753, Only use a Ne w Bag action if you are hanging a new bag This bag expires 24 hours after hanging. To be implemented as an intravenous flush following intermitten t infusions where there is no primary infusion. Patients with fluid restrictions may be excluded. 02/09/2021 02/10/2021 Medication Order 02/08/2021 1330 (Given - Provider: Alton Mathew RN - Comment: 200 mls given through frausto per urology order) sterile water irrigation irrigation solution (COMPLETED) Starting on Sun02/09/21 at 1323, For 1 dose, Ginna Mcfarlane: cabinet override Order Group 1: acetaminophen (TYLENOL) tablet 325-650 mgJump to med 325-650 mg, Oral, Every 6 hours PRN, mi ld pain (pain score 1-3), fever, Starting on Sun01/26/21 at 2153
Do not exceed 4 GM/DAY of aceta minophen. If 65 or older do not exceed 3 GM/DAY. If chronic alcoholic do no t exceed 2 GM/DAY.
Or acetaminophen (TYLENOL) suppository 325 -650 mgJump to med 325-650 mg, Rectal, Every 6 hours PRN, mild pain (pain score 1-3), fever, Starting on Sun01/26/21 at 2153
Administer if patient unable to tolerate oral medications.
Group 2: glucagon (GLUCAGEN) injection 1 mgJump to med 1 mg, Intramuscular, As needed, low blo od sugar, low blood sugar, Starting on Sun01/26/21 at 2152
Give if patient NPO and no IV a ccess. May give IM or SQ in arm and turn patient on side. Reconstitute powder for inje ction by adding 1 mL of city planning engineer- supplied sterile diluent or sterile water for injection to a via l containing 1 unit of the drug, to provide solutions containing 1 mg of glucagon/mL. Shake v ial gently to dissolve.
Or glucagon (GLUCAGEN) injection 1 mgJump to med 1 mg, Subcutaneous, As needed, low bloo d sugar, low blood sugar, Starting on Sun01/26/21 at 2152
Give if patient NPO and no IV a ccess. May give IM or SQ in arm and turn patient on side. Reconstitute powder for inje ction by adding 1 mL of city planning engineer- supplied sterile diluent or sterile water for injection to a via l containing 1 unit of the drug, to provide solutions containing 1 mg of glucagon/mL. Shake v ial gently to dissolve.
Group 3: metoclopramide (REGLAN) injection 5 mgJ ump to med 5 mg, Intravenous, Every 6 hours PRN, n ausea/vomiting (3rd line), Starting on Sun01/26/21 at 2153 Or metoclopramide (REGLAN) injection 5 mgJ ump to med 5 mg, Intramuscular, Every 6 hours PRN, nausea/vomiting (3rd line), Starting on Sun01/26/21 at 2153
Administer if patient does not have IV access.
Group 4: potassium chloride (KLOR-CON) CR tablet 20 mEqJump to med 20 mEq, Oral, As needed, standard elect rolyte replacement, Starting on Sun01/26/21 at 2153
Replace in addition to any sche duled potassium doses. Administer 20 mEq every hour x 2 doses (total dose = 40 mEq) fo r potassium level 3.0 to 3.4 mg/dL. Repeat potassium level in AM. Administer 20 mEq every hour x 3 doses (total dose = 60 mEq) for potassium level less than or equal to 2.9. Repeat potassium level 4 hours after last oral dose administered. Administer only if serum cr eatinine is less than 2 within the previous 48 hours and sustained urine output is greater than 20 mL/hr for 6 hours (if able to monitor). DO NOT CRUSH OR CHEW.
Or potassium bicarb-citric acid (EFFER-K) effervescent tablet 20 mEqJump to med 20 mEq, Oral, As needed, standard elect rolyte replacement, Starting on Sun01/26/21 at 2153
Administer if unable to swallow potassium tablets. Replace in addition to any scheduled potassium doses. Administer 20 mEq every hour x 2 doses (total dose = 40 mEq) for potassium level 3.0 to 3.4 mg/dL. Repea t potassium level in AM. Administer 20 mEq every hour x 3 doses (total dose = 60 mEq) for potas sium level less than or equal to 2.9. Repeat potassium level 4 hours after last oral dose administer ed. Administer only if serum creatinine is less than 2 within the previous 48 hours and sustained urine output is greater than 20 mL/hr for 6 hours (if able to monitor). Completely d issolve tablet in 3 to 4 ounces (90-120 mL) of cold juice or water before administering. For fluid r estricted patients, a smaller volume may be used to dilute (e.g. 15-30 mL).
Or potassium chloride 20 mEq in 100 mL IVP BJump to med 20 mEq, Intravenous, Administer over 2 Hours, As needed, standard electrolyte replacement, Starting on Sun01/26/21 at 2153
Administer if unable to take oral potassium. Replace in addition to any scheduled potassium doses. &nb sp;Administer 20 mEq x 2 doses (total dose = 40 mEq) for potassium level 3.0 to 3.4 mg/dL. Repea t potassium level in AM. Administer 20 mEq x 3 doses (total dose = 60 mEq) for potassium lev el less than or equal to 2.9. Repeat potassium level 2 hours after last infusion complete. &nb sp;Administer only if serum creatinine is less than 2 within the previous 48 hours and sustained uri ne output is greater than 20 mL/hr for 6 hours (if able to monitor). Potassium chloride shoul d be infused at a rate of 10 mEq/hr through a peripheral line, or at a rate of 20 mEq/hr through a central line.
Group 5: prochlorperazine (COMPAZINE) injection 2.5-5 mgJump to med 2.5-5 mg, Intravenous, Every 4 hours MS N, nausea/vomiting (1st line), Starting on Sun01/26/21 at 2153
May repeat 2.5 mg dose x 1 afte r 30 minutes if first dose ineffective. Do not exceed a total dose of 40 mg within a 24 hour pe riod. Rate of administration should not exceed 5 mg/minute.
Or prochlorperazine (COMPAZINE) injection 2.5-5 mgJump to med 2.5-5 mg, Intramuscular, Every 4 hours PRN, nausea/vomiting (1st line), Starting on Sun01/26/21 at 2153
Administer if patient does not have IV access. May repeat 2.5 mg dose x 1 after 60 minutes if first dose ineffective. &nbs p;Do not exceed a total dose of 40 mg within a 24 hour period.
Or prochlorperazine (COMPAZINE) suppositor y 25 mgJump to med 25 mg, Rectal, Every 12 hours PRN, naus ea/vomiting (1st line), Starting on Sun01/26/21 at 2153
Administer if patient does not have IV access and refuses IM injection.
documented in this encounter
--- OUTSIDE RECORDS SUMMARY | 2021-02-10 14:05 | XMS REPORT | Encounter Summary ---
Author Author [facility] Organization [facility] Address Unknown Phone Unavailable Care Team Providers Care Concrete Finisher Apprentice Name Role Phone Christophe Kennedy MD PCP Encounter Details Care Team Description Date Type Department 01/27/2021 Imaging [facility] Virtual Revenu e Appointment Location Social History [...] Date Type Specialty Vangie Marion PA [address] [place] [address] [phone] 03/03/2021 Office Visit Neurosurgery documented as of this encounter Procedures Comments Procedure Name Priority Date/Time Associated Diag nosis MRI OUTSIDE IMAGES FOR Routine 01/27/2021 Encount er for PACS SPINE 2:38 PM CDT consultation documented in this encounter Results * MRI Outside images for PACS Spine (01/27/2021 2:38 PM CDT) Specimen Performing Organization Address City/State/ZIP Code P maame Number [email or web address] documented in this encounter Visit Diagnoses Not on filedocumented in this encounter
--- OUTSIDE RECORDS SUMMARY | 2021-02-10 14:05 | XMS REPORT | Encounter Summary ---
Author Author [facility] Organization [facility] Address Unknown Phone Unavailable Care Team Providers Care Hospital Director Name Role Phone Christophe Kennedy MD PCP Encounter Details Care Team Description Date Type Department 01/27/[address] [facility] Virtual Revenu e Appointment Location Social [...] Date Type Specialty Vangie Marion PA [address] [place] [address] [phone] 03/03/2021 Office Visit Neurosurgery documented as of this encounter Procedures Comments Procedure Name Priority Date/Time Associated Diag nosis MRI OUTSIDE IMAGES FOR Routine 01/27/2021 Encount er for PACS SPINE 2:35 PM CDT consultation documented in this encounter Results * MRI Outside images for PACS Spine (01/27/2021 2:35 PM CDT) Specimen Performing Organization Address City/State/ZIP Code P maame Number [email or web address] documented in this encounter Visit Diagnoses Not on filedocumented in this encounter
--- OUTSIDE RECORDS SUMMARY | 2021-02-10 14:05 | XMS REPORT | Encounter Summary ---
Author Author [facility] Organization [facility] Address Unknown Phone Unavailable Care Team Providers Care Material Mover Name Role Phone Christophe Kennedy MD PCP Encounter Details Care Team Description Date Type Department Malcom, Default Authenticator [address] [place] [address] [facility] [address] [place] [address] Social History Date Tobacco Use Types Packs/Day Years Used Quit: 01/26/1997 Former Smoker Smokeless Tobacco: Never Used Comments Alcohol Use Standard Drinks/Week Not Currently 0 (1 standard drink = 0.6 o z pure alcohol) Sex Assigned at Date Recorded Not on file documented as of this encounter Plan of Treatment Care Team Description Date Type Specialty Vangie Marion PA [address] [place] [address] [phone] 03/03/2021 Office Visit Neurosurgery Date/Time Name Type [...]
--- OUTSIDE RECORDS SUMMARY | 2021-02-10 14:05 | XMS REPORT | Encounter Summary ---
Author Author [facility] Organization [facility] Address Unknown Phone Unavailable Care Team Providers Care Jailor Name Role Phone Christophe Kennedy MD PCP Encounter Details Care Team Description Date Type Department Malcom, Default Authenticator [address] [place] [address] [facility] In[facility] Management [address] [place] [address] Social History Date Tobacco Use Types Packs/Day Years Used Quit: 01/26/1997 Former Smoker Smokeless Tobacco: Never Used Comments Alcohol Use Standard Drinks/Week Not Currently 0 (1 standard drink = 0.6 o z pure alcohol) Sex Assigned at Date Recorded Not on file documented as of this encounter Plan of Treatment Care Team Description Date Type Specialty Vangie Marion PA [address] [place] [address] [phone] 03/03/2021 Office Visit Neurosurgery Date/Time Name Type [...]
--- OUTSIDE RECORDS SUMMARY | 2021-02-10 14:05 | XMS REPORT | Encounter Summary ---
Author Author [facility] Organization [facility] Address Unknown Phone Unavailable Care Team Providers Care Home Economist Consumer Service Name Role Phone Christophe Kennedy MD PCP Encounter Details Care Team Description Date Type Department Malcom, Default Authenticator [address] [place] [address] 01/26/20[facility] In[facility] Management [address] [place] [address] Social History Date Tobacco Use Types Packs/Day Years Used Quit: 01/26/1997 Former Smoker Smokeless Tobacco: Never Used Comments Alcohol Use Standard Drinks/Week Not Currently 0 (1 standard drink = 0.6 o z pure alcohol) Sex Assigned at Date Recorded Not on file documented as of this encounter Plan of Treatment Care Team Description Date Type Specialty Vangie Marion PA [address] [place] [address] [phone] 03/03/2021 Office Visit Neurosurgery Date/Time Name Type [...]
--- OUTSIDE RECORDS SUMMARY | 2021-02-10 14:05 | XMS REPORT | Encounter Summary ---
Author Author [facility] Organization [facility] Address Unknown Phone Unavailable Care Team Providers Care Knife Changer Name Role Phone Christophe Kennedy MD PCP Encounter Details Care Team Description Date Type Department Malcom, Default Authenticator [address] [place] [address] 01/26/2021 [facility] [address] [place] [address] Social History Date Tobacco Use Types Packs/Day Years Used Quit: 01/26/1997 Former Smoker Smokeless Tobacco: Never Used Comments Alcohol Use Standard Drinks/Week Not Currently 0 (1 standard drink = 0.6 o z pure alcohol) Sex Assigned at Date Recorded Not on file documented as of this encounter Plan of Treatment Care Team Description Date Type Specialty Vangie Marion PA [address] [place] [address] [phone] 03/03/2021 Office Visit Neurosurgery Date/Time Name Type [...]
--- OUTSIDE RECORDS SUMMARY | 2021-02-10 14:05 | XMS REPORT | Encounter Summary ---
Author Author [facility] Organization [facility] Address Unknown Phone Unavailable Care Team Providers Care Telecommunications Sales Representative Name Role Phone Christophe Kennedy MD PCP Encounter Details Care Team Description Date Type Department 01/27/2021 Imaging [facility] Virtual Revenu e Appointment Location Social [...] Date Type Specialty Vangie Marion PA [address] [place] [address] [phone] 03/03/2021 Office Visit Neurosurgery documented as of this encounter Procedures Comments Procedure Name Priority Date/Time Associated Diag nosis MRI OUTSIDE IMAGES FOR Routine 01/27/2021 Encount er for PACS SPINE 2:37 PM CDT consultation documented in this encounter Results * MRI Outside images for PACS Spine (01/27/2021 2:37 PM CDT) Specimen Performing Organization Address City/State/ZIP Code P maame Number [place] documented in this encounter Visit Diagnoses Not on filedocumented in this encounter
--- OUTSIDE RECORDS SUMMARY | 2021-02-10 14:05 | XMS REPORT | Encounter Summary ---
Author Author [facility] Organization [facility] Address Unknown Phone Unavailable Care Team Providers Care Tire Adjuster Name Role Phone Christophe Kennedy MD PCP Encounter Details Care Team Description Date Type Department 01/27/2021 Imaging [facility] Virtual Revenu e Appointment Location Social [...] Date Type Specialty Vangie Marion PA [address] [place] [address] [phone] 03/03/2021 Office Visit Neurosurgery documented as of this encounter Procedures Comments Procedure Name Priority Date/Time Associated Diag nosis MRI OUTSIDE IMAGES FOR Routine 01/27/2021 Encount er for PACS SPINE 2:36 PM CDT consultation documented in this encounter Results * MRI Outside images for PACS Spine (01/27/2021 2:36 PM CDT) Specimen Performing Organization Address City/State/ZIP Code P maame Number [place] documented in this encounter Visit Diagnoses Not on filedocumented in this encounter
[2021-02-10] MEDS ORDERED: ACETAMINOPHEN 325 MG TABLET PO PRN (14:15)
[2021-02-10] MEDS: polyethylene glycoL POWDER 17 GM (MIRALAX) PACK PO SCH ×3 (14:32→21:00)
[2021-02-10] MEDS: SENNA W/DOCUSATE (SENOKOT S) TABLET PO SCH ×3 (14:32→21:00)
[2021-02-10] MEDS: DOCUSATE SODIUM 100 MG (COLACE) CAP PO SCH ×3 (14:32→21:00)
--- NOTE | 2021-02-10 15:50 | Occupational Therapy Eval ---
OT Evaluation-General/PLF Medical Diagnosis Admission Date Feb 10, 2021 at 13:36 Medical Diagnosis: cervical myelopathy Onset Date: Jan 26, 2021 Therapy Diagnosis Therapy Diagnosis: Impaired adls, iadls, strength, balance, endurance, memory Precautions Precautions/Isolations: Fall Prevention, Standard Precautions, Pressure Ulcer Referral Physician: leoncio Pink Reason: Evaluation/Treatment Medical History Pertinent Medical History: CAD, DM, GERD, HTN, Neuropathy Current History pt direct admit from [facility] in [place], [place]. Prior to [facility], he was at [facility] in [place]. He reports Left U/LE weakness with symptoms starting 4-5 months prior. Before the weakness started he was indep with all adls, iadls and not using any assistive device. As the weakness started he began using a cane and had to progress to a walker. He lives alone in a house with a ramp entrance. Social History Home: Single Level Current Living Status: Alone Entry Into Home: Ramp ADL-Prior Level of Function SCALE: Activities may be completed with or without assistive devices. 8-Exyinpinty-kpuraff completes the activity by him/herself with no assistance from a helper. 5-Set-up or Clean-up Assistance-helper sets up or cleans up; patient completes activity. Earling assists only prior to or following the activity. 4-Supervision or Touching Assistance-helper provides verbal cues and/or touching/steadying and/or contact guard assistance as patient completes activity. Assistance may be provided throughout the activity or intermittently. 3-Partial/Moderate Assistance-helper does LESS THAN HALF the effort. Earling lifts, holds or supports trunk or limbs, but provides less than half the effort. 2-Substantial/Maximal Assistance-helper does MORE THAN HALF the effort. Earling lifts or holds trunk or limbs and provides more than half the effort. 4-Ibiyombdz-tfjzyq does ALL the effort. Patient does none of the effort to complete the activity. Or, the assistance of 2 or more helpers is required for the patient to complete the activity. If activity was not attempted, code reason: 7-Patient Refused. 9-Not Applicable-not attempted and the patient did not perform the activity before the current illness, exacerbation or injury. 10-Not Attempted due to Environmental Limitations-(lack of equipment, weather restraints, etc.). 88-Not Attempted due to Medical Conditions or Safety Concerns. Self Care: Independent Functional Cognition: Independent DME/Equipment: Bath Chair, Grab Bars, Shower, Tall Toilet Drive Self: Yes OT Current Status Subjective Pt denies any pain, agreeable to treatment. Appearance Pt left supine in bed, all needs within reach. Mental Status/Objective Patient Orientation: Person, Place Current Glasses/Contacts: Yes Hearing Aids: No Dentures/Partials: No Hand Dominance: Right Upper Extremity ROM Shoulder, elbow, wrist WFL. Unable to complete digit opposition on L hand. Upper Extremity Strength RUE: 4/5, fair skein tier LUE: 3+/5, poor skein tier. ADL-Treatment Eating (QC): 5 Oral Hygiene (QC): 1 Shower/Bathe Self (QC): 1 Upper Body Dressing (QC): 1 Lower Body Dressing (QC): 1 On/Off Footwear (QC): 1 Toileting Hygiene (QC): 1 Co-treat with PT as pt requires 2 skilled clinicians secondary to dep transfers, poor sitting balance, severe weakness, high fall risk, and poor endurance. Pt supine on bed berman at OT arrival. Requires mod a x1 to roll R/L, Cues for sequencing. Dep for guillermo care/washing of buttocks. Dep x2 to sit EOB. Initial poor sitting balance with intermittent mod a to maintain upright position, improves with time and feet supported on the floor. Dep to return to supine in order to transfer to w/c by Coleen lift. Pt propelled w/c short distance throughout unit, cues for w/c use. Fatigues easily and requires assist. Sponge bath performed seated in w/c. Pt not safe to stand at this time, thus activity performed 100% in sitting. If performed at PLOF, pt would require assist x2+ to complete. In sitting, pt able to wash upper body and down to ankles with SBA. Poor core strength/control exhibited when reaching forward and thus requires UE support to maintain forward position. Pt often taking breaks due to weakness. Pt would be unable to perform in unsupported sitting at this time. Dep to don brief at bed level while rolling R/L. Pt dep to return to supine with use of coleen lift. Education OT Patient Education: Correct positioning, Disease process, Energy conservation, Modified ADL techniques, Progress toward Goal/Update tx plan, Purpose of tx/functional activities, Reviewed precautions, Rehab process, Safety issues, Transfer techniques, Use of adapted equipment, W/C management Teaching Recipient: Patient Teaching Methods: Demonstration, Discussion Response to Teaching: Verbalize Understanding, Return Demonstration, Reinforcement Needed OT Short Term Goals Short Term Goals Time Frame: Feb 24, 2021 Eatin Oral hygiene: 4 Toileting hygiene: 2 Shower/bathe self: 2 Upper body dressin Lower body dressin Putting on/taking off footwear: 3 OT Alf Goals Director Of Property Management Goals Time Frame: Mar 04, 2021 Eating (QC): 6 Oral Hygiene (QC): 5 Toileting Hygiene (QC): 4 Shower/Bathe Self (QC): 3 Upper Body Dressing (QC): 4 Lower Body Dressing (QC): 3 On/Off Footwear (QC): 4 1=Demonstrate adherence to instructed precautions during ADL tasks. 2=Patient will verbalize/demonstrate understanding of assistive devices/modifications for ADL. 3=Patient will improve strength/tolerance for activity to enable patient to perform ADL's. OT Education/Plan Problem List/Assessment Assessment: Decreased Activ Tolerance, Decreased Safety Aware, Decreased UE Strength, Dependent Transfers, Edema, Impaired Bed Mobility, Impaired Cognition, Impaired Coordination, Impaired Funct Balance, Impaired I ADL's, Impaired Self- Care Skills, Restricted Funct UE ROM Discharge Recommendations Plan/Recommendations: Continue POC Target Placement ongoing assessment Treatment Plan/Plan of Care Treatment,Training & Education: Yes Patient would benefit from OT for education, treatment and training to promote independence in ADL's, mobility, safety and/or upper extremity function for ADL's. Plan of Care: ADL Retraining, Functional Mobility, Group Exercise/Act as Ind, UE Funct Exercise/Act, W/C Management Training Treatment Duration: Mar 04, 2021 Frequency: At least 5 of 7 days/Wk (IRF) Estimated Hrs Per Day: 1.5 hours per day Agreement: Yes Time/GCodes Start Time: 14:20 Stop Time: 16:00 Total Time Billed (hr/min): 90 Billed Treatment Time 1 visit, EVH (10 min) ADLx2 (30 min) FA x3 (50) OT eval [id number], PT eval [id number], Co-treat [id number] Antonieta Angel OT Feb 10, 2021 15:50
--- NOTE | 2021-02-10 16:04 | Physical Therapy Evaluation ---
PT Evaluation-General Medical Diagnosis Admission Date Feb 10, 2021 at 13:36 Medical Diagnosis: cervical myelopathy Onset Date: Jan 28, 2021 Therapy Diagnosis Therapy Diagnosis: impaired mobility, strength, endurance, balance Precautions Precautions/Isolations: Fall Prevention, Standard Precautions, Pressure Ulcer Referral Physician: Nia Dumont DO Reason for Referral: Evaluation/Treatment Medical History Pertinent Medical History: CAD, DM, GERD, HTN, Neuropathy Reviewed History: Yes Social History Home: Single Level Current Living Status: Alone Entry Into Home: Ramp Prior Prior Level of Function SCALE: Activities may be completed with or without assistive devices. 9-Jzuahxepiu-aedulpl completes the activity by him/herself with no assistance from a helper. 5-Set-up or Clean-up Assistance-helper sets up or cleans up; patient completes activity. [place] assists only prior to or following the activity. 4-Supervision or Touching Assistance-helper provides verbal cues and/or touching/steadying and/or contact guard assistance as patient completes activity. Assistance may be provided throughout the activity or intermittently. 3-Partial/Moderate Assistance-helper does LESS THAN HALF the effort. [place] lifts, holds or supports trunk or limbs, but provides less than half the effort. 2-Substantial/Maximal Assistance-helper does MORE THAN HALF the effort. [place] lifts or holds trunk or limbs and provides more than half the effort. 6-Glcpjskgx-qfeswe does ALL the effort. Patient does none of the effort to complete the activity. Or, the assistance of 2 or more helpers is required for the patient to complete the activity. If activity was not attempted, code reason: 7-Patient Refused. 9-Not Applicable-not attempted and the patient did not perform the activity before the current illness, exacerbation or injury. 10-Not Attempted due to Environmental Limitations-(lack of equipment, weather restraints, etc.). 88-Not Attempted due to Medical Conditions or Safety Concerns. Bed Mobility: 6 Transfers (B,C,W/C): 6 Gait: 6 Indoor Mobility (Ambulation): Independent Patient describes progressive weakness, used a walker PT Evaluation-Current Subjective Patient in bed pre tx, agrees to PT, has no complaints of pain at rest. Will be co-treating with OT due to poor patient mobility, strength, endurance, severe weakness, coordinate UE and LE during activity, safety and reduce risk of falls. Pt/Family Goals to be independent at home Objective Patient Orientation: Person, Place, Situation ROM/Strength ROM Lower Extremities WNL Strength Lower Extremities RLE gross 3-/5, LLE gross 1/5 Sensory Vision: Functional Hearing: Functional Sensation Right Lower Extremit: Impaired Sensation Left Lower Extremity: Impaired Transfers Roll Left & Right (QC): 2 Sit to Lying (QC): 1 Lying to Sitting/Side of Bed(Q: 1 Sit to Stand (QC): 88 Chair/Whu-ot-Fbuxk Xfer(QC): 1 Toilet Transfer (QC): 1 Car Transfer (QC): 88 Patient performs bed mobility with max assist, supine <-> sit dependent, transfers with a ck. Attempted to use a sit to stand machine but the sling would slip upward on his torso. Gait Does the Patient Walk?: No and Walking Goal NOT indicated Mode of Locomotion: Wheelchair Anticipated Mode of Locomotion: Wheelchair Walk 10 feet (QC): 88 Walk 50 ft with 2 Turns(QC): 88 Walk 150 ft (QC): 88 Walking 10ft/uneven surface-QC: 88 Wheelchair Training Does the Pt Use a Wheelchair?: Yes Distance: 100'x2 Wheel 50 ft with 2 turns (QC): 3 Wheel 150 ft (QC): 88 Type of Wheelchair: Manual Stairs 1 Step (curb) (QC): 88 4 Steps (QC): 88 12 Steps (QC): 88 Balance Sitting Static: Poor Sitting Dynamic: Poor Picking up an Object (QC): 88 Treatment In parallel bars 3 sets of 10 of pre-standing activity (leaning forward and bearing some weight through his legs as much as he can), bathing and dressing, rolling for cleaning for BM and getting new pads down. PT performed bed mobility and transfers, pre-standing activity, WC mobility, positioning and safety during bathing and dressing, OT performed bathing and dressing, cleaning BM, UE positioning and safety during activity. Assessment/Needs Patient in bed post tx with nurse call, phone, tray, all needs met. Patient has impaired mobility, strength, endurance. Patient needs ck lift for transfers. Rehab Potential: Guarded PT Short Term Goals Short Term Goals Time Frame: Feb 17, 2021 Roll Left & Right: 3 Sit to lyin Lying to sitting on side of be: 3 Wheel 50ft w/2 turns: 4 Wheel 150 feet: 4 PT Usp Goals Wire Stripper Goals PT Wire Stripper Goals Time Frame: Mar 03, 2021 Roll Left & Right (QC): 4 Sit to Lying (QC): 4 Lying-Sitting on Side/Bed(QC): 4 Sit to Stand (QC): 88 Chair/Mrl-ds-Yqmgk Xfer(QC): 88 Toilet Transfer (QC): 88 Car Transfer (QC): 88 Does the Patient Walk: No and Walking Goal NOT indicated Walk 10 feet (QC): 88 Walk 50ft with 2 Turns (QC): 88 Walk 150 ft (QC): 88 Walking 10ft on Uneven Surface: 88 1 Step (curb) (QC): 88 4 Steps (QC): 88 12 Steps (QC): 88 Picking up an Object (QC): 88 Wheel 50 feet with 2 turns (QC: 6 Wheel 150 feet: 6 PT Plan Problem List Problem List: Activity Tolerance, Functional Strength, Safety, Balance, Gait, Transfer, Bed Mobility, ROM Treatment/Plan Treatment Plan: Continue Plan of Care Treatment Plan: Bed Mobility, Education, Functional Activity Jorge, Functional Strength, Group Therapy, Gait, Safety, Therapeutic Exercise, Transfers Treatment Duration: Mar 03, 2021 Frequency: At least 5 of 7 days/Wk (IRF) Estimated Hrs Per Day: 1.5 hours per day Patient and/or Family Agrees t: Yes Safety Risks/Education Patient Education: Transfer Techniques, Correct Positioning, W/C Management, Safety Issues Teaching Recipient: Patient Teaching Methods: Demonstration, Discussion Response to Teaching: Reinforcement Needed Discharge Recommendations Plan Patient will perform bed mobility and transfer training, balance and endurance training, functional strengthening, and education, to improve functional mobility and independence at home. Therapy Discharge Recommendati: 24 Hour Supervision Time/GCodes Time In: 1430 Time Out: 1600 Total Billed Treatment Time: 90 Total Billed Treatment 1 visit EVM 10' FA 80' PT eval from [id number], co-treat from [id number] TARA MCCOY PT Feb 10, 2021 16:04
--- NOTE | 2021-02-10 16:52 | Progress Note ---
RAMAN DE LA TORRE 02/10/21 1652: Progress Note CC: LUE and LLE weakness HPI: A 80 yo M was admitted to [facility] on 01/26/21 with LUE/LLE weakness. He reports that his symptoms started 4 to 5 months ago. He previously was walking independently and progressed to using a cane, then to a walker, and later had difficulties using the walker as he would fall. He stats that his LLE weakness started first then LUE weakness with accompanying intermittent numbness without any pain. MRI of brain results no pathology, MRI C and T spine revealed extensive edema and spinal cord extending from C3 to T5, MRI L spine showed subarticular recess narrowing being severe on the L and moderate on R L4-L5. On 01/27/21 neurology evaluation shows that is not a typical presentation of neoplastic process but cannot r/o primary malignancy. Serologies were negative and LP showed nothing abnormal by neurology and neurosurgery. On 02/10, he reports that he had some spasms of his LE a few nights ago which were not as bad as when it first occurred 4 or 5 months ago. He does not report any improvement of his muscle weakness, but does believe PT and OT will help him. He denies pain, and reports numbness in all extremities but most prominent in LUE and LLE. When he is discharged he will be living with his ex in a single story home with a ramp, walk in shower, and other accommodations in which his son has fixed and will fix in the future. PMH: CAD, cognitive impairment/dementia, HTN, GERD, BAM, PUD, PVD, T2DM, urinary retention PSH: Ankle, cataract extraction, neck cyst removal, tonsillectomy, transurethral resection of prostate, wisdom tooth extraction Allergies: NKDA, denied food and environmental allergies Meds: see patient chart SH: Quit smoking 24 years ago, previously smoked for 40 years about one pack per day, used some hallucinogen prescription drug on two occasions and denies every use any other kinds of drugs. Last ten years had 2 to 3 beverages of ETOH. 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 He maintains a good relationship with his ex who will be letting him stay with him after discharge. FH: Has 2 sisters (not much known), 3 children are healthy ROS: Has urinary symptoms from PMH. Denies SOB, CP, N/V, abdominal pain, constipation or diarrhea. Objective General: NAD, compliant, well mannered. Lungs: Normal breathe sounds GI: Normal Bowel sounds, soft, nontender Neuro: LLE 3/5, LUE 3/5, 5/5 both RUE and RLE. Alert and oriented to person, place, and time, but has trouble recalling recent medical information. Psych: Patient is doing well, wants to participate in PT and OT to get better, very well rounded support around him that mainly include his family Assessment: Spinal cord compression Spinal cord mass Spinal cord edema Lumbar L4-L5 subarticular recess narrowing B/L LUE weakness LLE weakness Hepatic Hemangioma Systolic Heart Failure LFT elevation LBBB Hypotension Obesity CAD Dementia/cognitive impairment GERD PUD PVD Diabetic polyneuropathy Progressive weakness High risk of falling Gait disturbance Spasticity T2DM Constipation Edema HTN BAM Paroxysmal A-fib Thrombocytopenia Urinary Retention UTI (resolved) Transaminitis Plan: Aggressive PT, OT, and speech therapy Order basic lab work Review records, talk to his family members as they are more in tune with his medical condition then the patient himself Neurology follow up NIA ESTRADA DO 02/11/21 0533: Supervisory-Addendum Brief Verification & Attestation Participated in pt care: history, MDM, physical Personally performed: exam, history, MDM, supervision of care Care discussed with: Medical Student Procedures: n/a Results interpretation: Verified all documentation Verification and Attestation of Medical Student E/M Service A medical student performed and documented this service in my presence. I reviewed and verified all information documented by the medical student and made modifications to such information, when appropriate. I personally performed the physical exam and medical decision making. Nia Estrada Feb 11, 2021,05:33 WILISSAORQUIDEA Feb 10, 2021 16:52 NIA ESTRADA DO Feb 11, 2021 05:33
[2021-02-10] MEDS ORDERED: polyethylene glycoL POWDER 17 GM (MIRALAX) PACK PO PRN (18:15)
[2021-02-10 18:44] VITALS: BP 136/66
[2021-02-10] MEDS: DIGOXIN 0.125 MG (LANOXIN) TAB PO SCH (18:50)
[2021-02-10 20:00] VITALS: BP 121/71
--- NOTE | 2021-02-10 20:20 | PM&R Post Admission Assessment ---
PM&R HP Date of Visit: Feb 10, 2021 Time of Visit: 19:00 History of Present Illness Chief complaint: Cervical spine compression History of present illness: This is a 80-year-old white male Dr. Kennedy and Dr Kruger who has a past medical history of chronic atrial fibrillation who arrives from [facility] to aggressively treat residual left-sided weakness from cervical spine compression. There was no sign of neoplastic process but further testing will be required. Currently patient is a Coleen lift transfer. Will focus on bowel function bladder function and regain independent skills in order to reside with his ex-. 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 CC: LUE and LLE weakness HPI: A 80 yo M was admitted to [facility] on 01/26/21 with LUE/LLE weakness. He reports that his symptoms started 4 to 5 months ago. He previously was walking independently and progressed to using a cane, then to a walker, and later had difficulties using the walker as he would fall. He stats that his LLE weakness started first then LUE weakness with accompanying intermittent numbness without any pain. MRI of brain results no pathology, MRI C and T spine revealed extensive edema and spinal cord extending from C3 to T5, MRI L spine showed subarticular reces patient of narrowing being severe on the L and moderate on R L4-L5. On 01/27/21 neurology evaluation shows that is not a typical presentation of neoplastic process but cannot r/o primary malignancy. Serologies were negative and LP showed nothing abnormal by neurology and neurosurgery. On 02/10, he reports that he had some spasms of his LE a few nights ago which were not as bad as when it first occurred 4 or 5 months ago. He does not report any improvement of his muscle weakness, but does believe PT and OT will help him. He denies pain, and reports numbness in all extremities but most prominent in LUE and LLE. When he is discharged he will be living with his ex in a single story home with a ramp, walk in shower, and other accommodations in which his son has fixed and will fix in the future. PMH: CAD, cognitive impairment/dementia, HTN, GERD, BAM, PUD, PVD, T2DM, urinary retention PSH: Ankle, cataract extraction, neck cyst removal, tonsillectomy, transurethral resection of prostate, wisdom tooth extraction Allergies: NKDA, denied food and environmental allergies Meds: see patient chart SH: Quit smoking 24 years ago, previously smoked for 40 years about one pack per day, used some hallucinogen prescription drug on two occasions and denies every use any other kinds of drugs. Last ten years had 2 to 3 beverages of ETOH. 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 He maintains a good relationship with his ex who will be letting him stay with him after discharge. FH: Has 2 sisters (not much known), 3 children are healthy ROS: Has urinary symptoms from PMH. Denies SOB, CP, N/V, abdominal pain, constipation or diarrhea. Objective General: NAD, compliant, well mannered. Lungs: Normal breathe sounds GI: Normal Bowel sounds, soft, nontender Neuro: LLE 3/5, LUE 3/5, 5/5 both RUE and RLE. Alert and oriented to person, place, and time, but has trouble recalling recent medical information. Psych: Patient is doing well, wants to participate in PT and OT to get better, very well rounded support around him that mainly include his family Assessment: Spinal cord compression Spinal cord mass Spinal cord edema Lumbar L4-L5 subarticular recess narrowing B/L LUE weakness LLE weakness Hepatic Hemangioma Systolic Heart Failure LFT elevation LBBB Hypotension Obesity CAD Dementia/cognitive impairment GERD PUD PVD Diabetic polyneuropathy Progressive weakness High risk of falling Gait disturbance Spasticity T2DM Constipation Edema HTN BAM Paroxysmal A-fib Thrombocytopenia Urinary Retention UTI (resolved) Transaminitis Plan: Aggressive PT, OT, and speech therapy Order basic lab work Review records, talk to his family members as they are more in tune with his medical condition then the patient himself Neurology follow up Past Lehrjmt-Xvmltc-Wmmwxa Hx Past Med/Social Hx: Reviewed Nursing Past Med/Soc Hx, Reviewed and Corrections made Patient Social History Marrital Status: Employed/Student: retired Alcohol Use: Occasionally Uses Smoking Status: Former Smoker Past Medical History Surgeries: Orthopedic Respiratory: COPD, Sleep Apnea Currently Using CPAP: Yes Currently Using BIPAP: No Cardiac: Atrial Fibrillation, High Cholesterol, Hypertension Neurological: Spinal Cord Injury Genitourinary: Benign Prostatic Hyperpl, Prostate Problems, Bladder Infection Musculoskeletal: Arthritis, Chronic Back Pain Endocrine: Diabetes, Insulin dep Prior Level of Function Bed Mobility: 6 Transfers: 6 Gait: 6 Indoor Mobility (Ambulation): Independent Self Care: Independent Functional Cognition: Independent Drive Self: Yes Current Level of Fuctioning Roll Left to Right: 2 Sit to Lyin Lying to Sitting/Side of Bed: 1 Sit to Stand: 88 Chair/Umb-an-Citbt Xfer: 1 Car Transfer: 88 Does the Pt Use a Wheelchair: Yes Wheelchair Distance: 100'x2 Wheel 50 ft with 2 turns: 3 Wheel 150 ft: 88 Type of Wheelchair: Manual 1 Step (curb): 88 4 Steps: 88 12 Steps: 88 Picking up an Object: 88 Eatin Oral Hygiene: 1 Shower/Bathe Self: 1 Upper Body Dressin Lower Body Dressin On/Off Footwear: 1 Toileting Hygiene: 1 PM&R Allergy/Meds/Data Review Allergies Coded Allergies: No Known Drug Allergies (Unverified , 02/09/21) Home Medications Scheduled Apixaban (Eliquis), 5 MG PO BID, (Reported) Calcium/Magnesium/Vitamin D3 (Rojas-Mag Complex 300-150 mg Tab), 1 EACH PO DAILY, (Reported) Digoxin (Digoxin), 125 MCG PO 1800, (Reported) Insulin Glargine,Hum.rec.anlog (Lantus), 5 UNIT SQ HS, (Reported) Insulin Lispro (Insulin Lispro), UNIT SQ ACHS, (Reported) Metoprolol Succinate (Metoprolol Succinate), 300 MG PO DAILY, (Reported) [place]-3 Fatty Acids/Fish Oil ([place] 3 Fish Oil Softgel), 1 EACH PO BID, (Reported) Vitamin B Complex (B Complex), 1 EACH PO DAILY, (Reported) Scheduled PRN Polyethylene Glycol 3350 (Miralax), 17 GM PO DAILY PRN for CONSTIPATION-2ND LINE, (Reported) Current Medications Current Medications Reviewed Laboratory Data Laboratory Tests 02/10/21 16:31: Glucometer 144H Review of Systems Constitutional: see HPI, malaise, weakness EENTM: no symptoms reported Respiratory: no symptoms reported Cardiovascular: no symptoms reported Gastrointestinal: constipation Genitourinary: decreased output, other (Retention) Musculoskeletal: back pain, joint pain Skin: other (Decubitus ulcer) Psychiatric/Neurological: Anxiety, Depressed, Weakness All Other Systems Reviewed Negative Unless Noted: Yes Physical Exam Physical Exam Vital Signs Vital Signs - First Documented 02/10/21 02/10/21 16:31 18:44 Temp 36.0 Pulse 74 Resp 18 B/P (MAP) 136/66 (89) Pulse Ox 96 O2 Delivery Room Air Capillary Refill : Height, Weight, BMI Height: '" Weight: lbs. oz. kg; 36.82 BMI Method: General Appearance: No Apparent Distress, WD/WN, Chronically ill Eyes: Bilateral Eye Normal Inspection, Bilateral Eye PERRL HEENT: PERRL/EOMI, Normal ENT Inspection, Pharynx Normal Neck: Full Range of Motion, Normal Inspection, Non Tender, Supple, Carotid Bruit Respiratory: Chest Non Tender, Lungs Clear, Normal Breath Sounds, No Accessory Muscle Use, No Respiratory Distress Cardiovascular: Regular Rate, Rhythm, No Edema, No Gallop, No JVD, No Murmur, Normal Peripheral Pulses Gastrointestinal: Normal Bowel Sounds, No Organomegaly, No Pulsatile Mass, Non Tender, Soft Back: Normal Inspection, No CVA Tenderness, No Vertebral Tenderness Extremity: Normal Capillary Refill, Normal Inspection, Normal Range of Motion, Non Tender, No Calf Tenderness, No Pedal Edema Neurologic/Psychiatric: Alert, Oriented x3, Normal Mood/Affect, pattern hand II-XII Norm as Tested, Abnormal Gait (Unable to ambulate), Depressed Affect, Motor Weakness (Left side 3/5) Skin: Normal Color, Warm/Dry Lymphatic: No Adenopathy PM&R Medical Assessment & Plan REHAB/MEDICAL ASSESSMENT AND PLAN: REHAB IMPAIRMENT GROUP: Spinal cord compression ETIOLOGIC DIAGNOSIS: Spinal cord compression The comorbidities that impact the patients function and/or functional outcome by: Significant neurological deficit, lives alone, chronic atrial fibrillation REHAB PLAN: The patient is being admitted to our comprehensive inpatient rehabilitation facility and can tolerate the intensity of service consisting of at least: 180 minutes of therapy a day, 5 out of 7 days a week Rehab treatment will consist of: PT and OT will focus on ambulatory function with the use of assistive devices and regaining independence in ADLs The patient/family has a good understanding of our discharge process and will benefit from an interdisciplinary inpatient rehabilitation program. The patient has potential to make improvement and is in need of at least two of the following multidisciplinary therapies including but not limited to physical, occupational, speech, and prosthetics and orthotics. Additionally the patient will need services from respiratory, nutritional services, wound care, psychology, etc. (Customize this to each patient). Given the patients complex condition and risk of further medical complications, rehabilitation services cannot be safely or effectively provided at a lower level of care such as a shelter facility. BARRIERS TO DISCHARGE: Significant neurological deficit ESTIMATED LOS: 14 days DISPOSITION: Home RELEVANT CHANGES SINCE PREADMISSION SCREENING: I have compared the patients medical and functional status at the time of the preadmission screening and there are: No changes PROGNOSIS: Fair REHABILITATION GOALS: 1. PT and OT will focus on ambulatory function with the use of assistive devices and regaining independence in ADLs All the above goals were reviewed with the patient and he/she is in agreement. By signing this document, I acknowledge that I have personally performed a full physical examination on this patient within 24 hours of admission to this inpatient rehabilitation facility and have determined the patient to be able to tolerate the above course of treatment at an intensive level for a reasonable period of time. I will be completing a detailed individualized Plan of Care for this patient by day #4 of the patients stay based upon the Preadmission Screen, the Post-Admission Evaluation, and the therapy evaluations. Admission Dx/Comorbidities: (1) Cervical spinal cord compression ICD Codes: G95.20 - Unspecified cord compression (2) Atrial fibrillation ICD Codes: I48.91 - Unspecified atrial fibrillation (3) Anticoagulation adequate with anticoagulant therapy ICD Codes: Z79.01 - [facility]CI (current) use of anticoagulants (4) Urinary retention ICD Codes: R33.9 - Retention of urine, unspecified Assessment/Plan Assessment and Plan Assess & Plan/Chief Complaint Assessment: 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 and subsequent neurological deficits Lumbar L4-L5 subarticular recess narrowing B/L Left-sided weakness Hepatic Hemangioma Systolic Heart Failure LFT elevation LBBB Previous hypotension Obesity CAD Dementia/cognitive impairment GERD PUD PVD Diabetic polyneuropathy Progressive weakness High risk of falling Gait disturbance Spasticity T2DM Constipation Edema HTN Paroxysmal A-fib Thrombocytopenia Urinary Retention Status post UTI (resolved) BAM on CPAP Plan: Aggressive PT, OT, and speech therapy Order basic lab work in the morning Review records, talk to his family members as they are more in tune with his medical condition then the patient himself Neurology follow up Consult Dr. Rubio for A. fib CARMELLA ESTRADA DO Feb 10, 2021 20:20
[2021-02-10] MEDS: inSUlin ASPART (NovoLOG) 1 UNIT/0.01 ML (CHARGE PER UNIT) SC SCH (21:00)
[2021-02-10] MEDS ORDERED: INSULIN GLARGINE HUM REC ANLOG 5 UNIT SQ SCH (21:00)
[2021-02-10] MEDS: APIXABAN 5 MG (ELIQUIS) TABLET PO SCH (21:48)
[2021-02-10] MEDS: MELATONIN 3 MG TABLET PO PRN (21:48)
[2021-02-10] MEDS: OMEGA 3 (FISH OIL) 1000 MG CAP PO SCH (21:48)
--- NOTE | 2021-02-11 05:47 | Individualized Plan of Care ---
Individualized Plan of Care Rehab Nursing IPOC Order Admission Date Feb 10, 2021 at 13:36 Current Orders Orders Admission Order(Inpt,Obs,Sdc) (02/09/21 11:22) Vital Signs: Per Unit Policy ( ,16,00 (02/09/21 11:22) Mk Jang (02/09/21 11:22) Sequential Compression Device .admit (02/09/21 11:22) Line O Scribe Operator-Inpt Rehab Con (02/09/21 11:22) Rehab Nursing Orders-Ipoc (02/09/21 11:22) Physical Therapy Rehab Orders (02/09/21 11:22) Occupational Therapy Rehab Ord (02/09/21 11:22) Speech Therapy Rehab Orders (02/09/21 11:22) Precautions (Aru) (02/09/21 11:22) Rehab-Intensity Of Therapy (02/09/21 11:22) Initiate Admission Nursing Pro .admission (02/09/21 11:22) Alprazolam Tablet (Xanax Tablet) (02/09/21 11:30) Calcium Carbonate Chew Tablet (Antacid C (02/09/21 11:30) Diphenhydramine Tablet (Benadryl Tablet) (02/09/21 11:30) Docusate Sodium Capsule (Colace Capsule) (02/09/21 21:00) Docusate Sodium Capsule (Colace Capsule) (02/09/21 11:30) Bisacodyl Suppository (Dulcolax Supposit (02/09/21 11:30) Lactulose Oral Solution (Enulose Oral So (02/09/21 11:30) Na Phos/Na Biphos Enema (Fleet Enema Linus (02/09/21 11:30) Guaifenesin/Codeine Syrup (Robitussin Ac (02/09/21 11:30) Loperamide Tablet (Imodium Tablet) (02/09/21 11:30) Melatonin Tablet (Melatonin Tablet) (02/09/21 11:30) Polyethylene Glycol Powder Pkt (Miralax (02/09/21 21:00) Ondansetron Oral Dissolve Tab (Zofran (02/09/21 11:30) Senna S Tablet (Senokot S Tablet) (02/09/21 21:00) Code/Resuscitation (02/09/21 11:22) Initiate Admission Nursing Pro .admission (02/09/21 11:22) Acetaminophen Tablet (Tylenol Tablet) (02/09/21 11:30) Cbc With Automated Diff (02/11/21 06:00) Comprehensive Metabolic Panel (02/11/21 06:00) Admission Arrival Bed Request (02/10/21 13:36) Cho 60g/M 1snack (16-2000 Rojas) (02/10/21 Lunch) Acetaminophen Tablet/Caplet (Tylenol T (02/10/21 14:15) Patient Visit (02/10/21 ) Pt Eval Moderate Complexity (02/10/21 ) Functional Activities, Ea 15 (02/10/21 ) Apixaban Tablet (Eliquis Tablet) (02/10/21 21:00) Polyethylene Glycol Powder Pkt (Miralax (02/10/21 18:15) (Nf) Calcium/Magnesium/Vitamin D3 (Rojas-M (02/11/21 09:00) (Nf) Insulin Glargine,Hum.Rec.Anlog (Waqar (02/10/21 21:00) (Nf) Metoprolol Succinate (02/11/21 09:00) (Nf) [place]-3 Fatty Acids/Fish Oil ([place] (02/10/21 21:00) (Nf) Vitamin B Complex (B Complex) (02/11/21 09:00) Accucheck Achs ACHS (02/10/21 18:01) Insulin Aspart (Novolog) (Novolog (Charg (02/10/21 21:00) Digoxin Tablet (Lanoxin Tablet) (02/10/21 18:15) Insulin Determir (Per Unit) (Levemir (Pe (02/10/21 21:00) Metoprolol Succinate (Xl) Tab (Toprol Xl (02/11/21 09:00) Therapeutic Multivitamin Tab (Vitamins, (02/11/21 07:00) [place] 3 Capsule (Fish Oil Capsule) (02/10/21 21:00) Magnesium Oxide Tablet (Mag Ox Tablet) (02/11/21 08:00) Calcium Carbonate W/Vitamin D3 (Calcarb (02/11/21 08:00) Consult Cardiology (02/11/21 05:34) Ekg Tracing (02/11/21 07:00) Digoxin (02/11/21 05:34) Consult Wound Care Physician (02/11/21 08:02) Flu Quad High Dose 5611-0164 (Fluzone Hi (02/11/21 08:45) Ekg Tracing (02/11/21 10:14) Obtain Records From (Order) (02/11/21 10:57) Lisinopril Tablet (Zestril Tablet) (02/12/21 09:00) Patient Visit (02/11/21 ) Exercise Therap, Ea 15 Min (02/11/21 ) Functional Activities, Ea 15 (02/11/21 ) Patient Visit (02/11/21 ) Exercise Therap, Ea 15 Min (02/11/21 ) Patient Visit (02/11/21 ) Exercise Therap, Ea 15 Min (02/11/21 ) Menthol/Zinc Oxide Ointment (Calmoseptin (02/11/21 19:45) Dressing Order (Intervention) UD (02/11/21 19:44) Rehab Nursing Orders: Ongoing Assess. of Cognitive Status, Ongoing Assess. of Function Status, Bladder Management, Bladder Scan, Bladder Training, Bowel Management, Bowel Training, Disease Management & Educaiton, DVT Prophylaxis, Fall Prevention, Fluid/Electrolyte/Nutrition Mgmt, Infection Prevention, Medication Management & Education, Management of Risks & Complications, Management of Skin Intergrity, Nutrition Management, Pain Management, Patient/Family Support, Safety Management, Swallow Precautions, Wound Management Intensity of Therapy to be met Patient to be seen: Min.3h per day/5 of 7d PT IPOC Problem List: Activity Tolerance, Functional Strength, Safety, Balance, Gait, Transfer, Bed Mobility, ROM Treatment Plan: Continue Plan of Care Bed Mobility, Education, Functional Activity Jorge, Functional Strength, Group Therapy, Gait, Safety, Therapeutic Exercise, Transfers Treatment Duration: Mar 03, 2021 Frequency: At least 5 of 7 days/Wk (IRF) Estimated Hrs Per Day: 1.5 hours per day OT IPOC Problems: Decreased Activ Tolerance, Decreased Safety Aware, Decreased UE Strength, Dependent Transfers, Edema, Impaired Bed Mobility, Impaired Cognition, Impaired Coordination, Impaired Funct Balance, Impaired I ADL's, Impaired Self- Care Skills, Restricted Funct UE ROM OT Treatment, Training and Edu: Yes Plan of Care: ADL Retraining, Functional Mobility, Group Exercise/Act as Ind, UE Funct Exercise/Act, W/C Management Training Treatment Duration: Mar 04, 2021 Frequency: At least 5 of 7 days/Wk (IRF) Estimated Hrs Per Day: 1.[address] IPOC Speech Therapy Treatment Plan: Discontinue ST Treatment Duration: Feb 11, 2021 Frequency: Modified Program (IRF) Estimated Hrs Per Day: Other Line O Scribe Operator/Case Mgmt Line O Scribe Operator/Case Managemen: Discharge Planning Dietitian/Geology Professor Dietitian/Geology Professor to monitor nutritional status and make changes and/or recommendations as needed and work with speech pathology on dietary upgrades as the occur. Physician IPOC Medical Issues being managed closely and that require the 24 hour availability of a physician: Patient with severe neurological deficit from spine mass will be at high risk for other neurological dysfunction including respiratory compromise Medical Issues: Bowel/Bladder Function, DVT Prophylaxis, Falls Precautions, Fluid/Electrolyte/Nutrition Balance, Infection Protection, Pain Management, Wound Care Brief Synthesis of Preadmission Screen, Post-Admission Evaluation, and Therapy Evaluations: PT and OT will focus on regaining function of neurological deficit with the use of assistive devices in order to regain independent Medical Prognosis: Fair Anticipated Length of Stay: 14 days CARMELLA ESTRADA DO Feb 11, 2021 05:47
--- NOTE | 2021-02-11 05:47 | PM&R Progress Note ---
Subjective HPI/CC On Admission Date Seen by Provider: Feb 11, 2021 Time Seen by Provider: 10:00 Subjective/Events-last exam 02/11/2021: Patient doing pretty well Dr. Rubio will be consulted Noncompliant with CPAP machine Oxygen was good last night at 90% Wound care consulted Dr. Pyle Sugars good Bowels are a bit loose and he does have fecal incontinence Review of Systems General: Fatigue Genitourinary: Incontinence Neurological: Weakness, Incoordination Objective Exam Vital Signs Vital Signs Date Time Temp Pulse Resp B/P (MAP) Pulse Ox O2 Delivery O2 Flow Rate FiO2 02/11/21 21:00 96 Room Air 02/11/21 20:00 36.5 84 16 133/83 (100) Capillary Refill : General Appearance: No Apparent Distress, WD/WN, Chronically ill HEENT: PERRL/EOMI, Normal ENT Inspection, Pharynx Normal Neck: Full Range of Motion, Normal Inspection, Non Tender, Supple, Carotid Bruit Respiratory: Chest Non Tender, Lungs Clear, Normal Breath Sounds, No Accessory Muscle Use, No Respiratory Distress Cardiovascular: Regular Rate, Rhythm, No Edema, No Gallop, No JVD, No Murmur, Normal Peripheral Pulses Gastrointestinal: Normal Bowel Sounds, No Organomegaly, No Pulsatile Mass, Non Tender, Soft Back: Normal Inspection, No CVA Tenderness, No Vertebral Tenderness Extremity: Normal Capillary Refill, Normal Inspection, Normal Range of Motion, Non Tender, No Calf Tenderness, No Pedal Edema Neurologic/Psychiatric: Alert, Oriented x3, Normal Mood/Affect, 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 FIM Transfers Therapy Code Descriptions/Definitions Functional [place] Measure: 0=Not Assessed/NA 4=Minimal Assistance 1=Total Assistance 5=Supervision or Setup 2=Maximal Assistance 6=Modified [place] 3=Moderate Assistance 7=Complete IndependenceSCALE: Activities may be completed with or without assistive devices. 0-Xqmjkiimxj-sfxogfq completes the activity by him/herself with no assistance from a helper. 5-Set-up or Clean-up Assistance-helper sets up or cleans up; patient completes activity. [place] assists only prior to or following the activity. 4-Supervision or Touching Assistance-helper provides verbal cues and/or touching/steadying and/or contact guard assistance as patient completes activity. Assistance may be provided throughout the activity or intermittently. 3-Partial/Moderate Assistance-helper does LESS THAN HALF the effort. [place] lifts, holds or supports trunk or limbs, but provides less than half the effort. 2-Substantial/Maximal Assistance-helper does MORE THAN HALF the effort. [place] lifts or holds trunk or limbs and provides more than half the effort. 9-Ayknlajtg-ntkttx does ALL the effort. Patient does none of the effort to complete the activity. Or, the assistance of 2 or more helpers is required for the patient to complete the activity. If activity was not attempted, code reason: 7-Patient Refused. 9-Not Applicable-not attempted and the patient did not perform the activity before the current illness, exacerbation or injury. 10-Not Attempted due to Environmental Limitations-(lack of equipment, weather restraints, etc.). 88-Not Attempted due to Medical Conditions or Safety Concerns. Roll Left to Right (QC): 2 Sit to Lying (QC): 1 Sit to Stand (QC): 88 Chair/Jys-we-Mcsmb Xfer(QC): 1 Car Transfer (QC): 88 Wheelchair Training Does the Pt Use a Wheelchair?: Yes Distance: 100'x2 Wheel 50 ft with 2 turns (QC): 3 Wheel 150 ft (QC): 88 Type of Wheelchair: Manual Stair Training 1 Step (curb) (QC): 88 4 Steps (QC): 88 12 Steps (QC): 88 Balance Picking up an Object (QC): 88 ADL-Treatment Eating (QC): 5 Oral Hygiene (QC): 1 Shower/Bathe Self (QC): 1 Upper Body Dressing (QC): 1 Lower Body Dressing (QC): 1 On/Off Footwear (QC): 1 Toileting Hygiene (QC): 1 Assessment/Plan Assessment and Plan Assess & Plan/Chief Complaint Assessment: 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 and subsequent neurological deficits Lumbar L4-L5 subarticular recess narrowing B/L Left-sided weakness Hepatic Hemangioma Systolic Heart Failure LFT elevation LBBB Previous hypotension Obesity CAD Dementia/cognitive impairment GERD PUD PVD Diabetic polyneuropathy Progressive weakness High risk of falling Gait disturbance Spasticity T2DM Constipation Edema HTN Paroxysmal A-fib Thrombocytopenia Urinary Retention Status post UTI (resolved) BAM on CPAP Plan: Aggressive PT, OT, and speech therapy Order basic lab work in the morning Review records, talk to his family members as they are more in tune with his medical condition then the patient himself Neurology follow up Consult Dr. Rubio for A. fib 02/11/2021: Supportive care Dr. Rubio consult Poor memory recall noted (1) Cervical spinal cord compression (2) Atrial fibrillation (3) Anticoagulation adequate with anticoagulant therapy (4) Urinary retention CARMELLA ESTRADA DO Feb 11, 2021 05:47
[2021-02-11 06:15] LABS: BASOPHILS % (AUTO) 1 % (0-10); HEMOGLOBIN 13.4 g/dL (13.3-17.7); MEAN CORPUSCULAR HEMOGLOBIN 33 pg (25-34)
[2021-02-11 06:17] LABS: EOSINOPHILS # (AUTO) 0.2 10^3/uL (0.0-0.3); EOSINOPHILS % (AUTO) 3 % (0-10); HEMATOCRIT 40 % (40-54); LYMPHOCYTES # (AUTO) 0.9 10^3/uL (1.0-4.0); LYMPHOCYTES % (AUTO) 18 % (12-44); MEAN CORPUSCULAR HGB CONC 34 g/dL (32-36); MEAN CORPUSCULAR VOLUME 98 fL (80-99); MEAN PLATELET VOLUME 11.4 fL (9.0-12.2); MONOCYTES # (AUTO) 0.5 10^3/uL (0.0-1.0); MONOCYTES % (AUTO) 10 % (0-12); NEUTROPHILS # (AUTO) 3.5 10^3/uL (1.8-7.8); NEUTROPHILS % (AUTO) 68 % (42-75); PLATELET COUNT 118 10^3/uL (130-400); WHITE BLOOD COUNT 5.1 10^3/uL (4.3-11.0)
[2021-02-11 06:36] LABS: ALBUMIN 2.5 GM/DL (3.2-4.5); POTASSIUM 3.6 MMOL/L (3.6-5.0)
[2021-02-11 06:38] LABS: CALCIUM 8.2 MG/DL (8.5-10.1)
[2021-02-11 06:39] LABS: TOTAL PROTEIN 5.2 GM/DL (6.4-8.2)
[2021-02-11 06:41] LABS: BILIRUBIN,TOTAL 1.1 MG/DL (0.1-1.0)
[2021-02-11 06:42] LABS: CREATININE SERUM 0.7 MG/DL (0.60-1.30)
[2021-02-11] MEDS: MULTIVIT W/MINERALS TAB (THERAGRAN M) PO SCH (06:44)
[2021-02-11] MEDS: inSUlin ASPART (NovoLOG) 1 UNIT/0.01 ML (CHARGE PER UNIT) SC SCH ×4 (06:47→21:00)
[2021-02-11 08:00] VITALS: BP 140/80
[2021-02-11] MEDS: APIXABAN 5 MG (ELIQUIS) TABLET PO SCH ×2 (08:30→20:59)
[2021-02-11] MEDS: DOCUSATE SODIUM 100 MG (COLACE) CAP PO SCH ×2 (08:30→21:23)
[2021-02-11] MEDS: OMEGA 3 (FISH OIL) 1000 MG CAP PO SCH ×2 (08:30→20:59)
[2021-02-11] MEDS: polyethylene glycoL POWDER 17 GM (MIRALAX) PACK PO SCH ×2 (08:30→21:23)
[2021-02-11] MEDS: CALCIUM CARB + VIT D 600 MG (CALCARB + D) TAB PO SCH (08:30)
[2021-02-11] MEDS: MAGNESIUM OXIDE (MAG-OX)400 MG TAB PO SCH (08:30)
[2021-02-11] MEDS: meTOprolol SUCCINATE 100 MG (TOPROL XL) TAB PO SCH (08:31)
[2021-02-11] MEDS: SENNA W/DOCUSATE (SENOKOT S) TABLET PO SCH ×2 (08:31→21:24)
[2021-02-11] MEDS ORDERED: FLU QUAD HIGH DOSE 240 MCG/0.7 ML 2021-22 (FLUZONE) IM ONE (08:45)
[2021-02-11] MEDS ORDERED: NON-FORMULARY MEDICATION 1 EA EA (Vitamin B Complex (B Complex) 1 EACH) PO SCH (09:00)
[2021-02-11] MEDS ORDERED: METOPROLOL SUCCINATE PO SCH (09:00)
[2021-02-11] MEDS ORDERED: CALCIUM PO SCH (09:00)
[2021-02-11] MEDS ORDERED: MAGNESIUM PO SCH (09:00)
[2021-02-11] MEDS ORDERED: [UNRECOGNIZED DRUG - OTHER] PO SCH (09:00)
[2021-02-11] MEDS ORDERED: VITAMIN D3 PO SCH (09:00)
--- NOTE | 2021-02-11 10:50 | Consultation-Cardiology ---
HPI-Cardiology Cardiology Consultation: Date of Consultation 02/11/21 Time Seen by a Provider: 10:20 Date of Admission 02-10-21 Attending Physician Nia Dumont DO Admitting Physician Consulting Physician Maria G Rubio MD HPI: Chief Complaint: Atrial fib Cardiac management Mr. Sanches is a 80 yr old male admitted to [facility] from [facility] in . Review of available records has been done. He reports in May 2020 he began to develop left sided weakness which continued to progress to inability to walk without use of walker and progressive LUE and LLE weakness. He was transferred to [facility] for neurology/neuro-surgery consult. No evidence of stroke was found per pt. He was found to have cervical myelopathy which was treated with steroids. He continues to have LUE and LLE weakness. He denies any c/o CP or palpitations. No c/o SOB. No c/o syncope or near syncope. He reports his primary drum puller is Dr. Kruger at [facility]. He reports chronic a-fib for which he in on OAC with Eliquis and has been compliant. Review of Systems-Cardiology Review of Systems Constitutional: No chills; malaise Eyes: No vision change Ears/Nose/Throat: No epistaxis, No recent hearing loss, No ulcerations Respiratory: As described under HPI Cardiovascular: As described under HPI Gastrointestinal: No constipation, No diarrhea, No nausea, No vomiting Genitourinary: No dysuria, No hematuria Musculoskeletal: As describe under HPI Skin: No rash on exposed areas, No ulcerations on exposed areas Psychiatric/Neurological: As described under HPI; No anxiety, No depression, No seizure, No focal weakness, No syncope Hematologic: No bleeding abnormalities All Other Systems Reviewed Negative Unless Noted: Yes RXR-Wknizx-Relicg Hx Patient Social History Marrital Status: Employed/Student: retired Smoking Status: Former Smoker Have you traveled recently?: No Alcohol Use?: No Pt feels they are or have been: No Tobacco type used: Cigarettes Past Medical History PMH As described under Assessment. Family Medical History Family Medical History: No reported family h/o CAD Allergies and Home Medications Allergies Coded Allergies: No Known Drug Allergies (Unverified , 02/09/21) Patient Home Medication List Apixaban (Eliquis) 5 Mg Tablet, 5 MG PO BID, (Reported) Entered as Reported by: SARAHY BAKER on 02/09/211140 Last Action: Continued Calcium/Magnesium/Vitamin D3 (Rojas-Mag Complex 300-150 mg Tab) 1 Each Tablet, 1 EACH PO DAILY, (Reported) Entered as Reported by: SARAHY BAKER on 02/09/211140 Last Action: Converted Digoxin (Digoxin) 125 Mcg Tablet, 125 MCG PO 1800, (Reported) Entered as Reported by: SARAHY BAKER on 02/09/211140 Last Action: Continued Insulin Glargine,Hum.rec.anlog (Lantus) 100 Unit/1 Ml Vial, 5 UNIT SQ HS, (Reported) Entered as Reported by: SARAHY BAKER on 02/09/211140 Last Action: Converted Insulin Lispro (Insulin Lispro) 100 Unit/1 Ml Vial, UNIT SQ ACHS, (Reported) Entered as Reported by: SARAHY BAKER on 02/09/211140 Last Action: Held Metoprolol Succinate (Metoprolol Succinate) 200 Mg Tab.er.24h, 300 MG PO DAILY, (Reported) Entered as Reported by: SARAHY BAKER on 02/09/211140 Last Action: Converted [place]-3 Fatty Acids/Fish Oil ([place] 3 Fish Oil Softgel) 1 Each Capsule.dr, 1 EACH PO BID, (Reported) Entered as Reported by: SARAHY BAKER on 02/09/211140 Last Action: Converted Polyethylene Glycol 3350 (Miralax) 17 Gm Powd.pack, 17 GM PO DAILY PRN for CONSTIPATION-2ND LINE, (Reported) Entered as Reported by: SARAHY BAKER on 02/09/211140 Last Action: Continued Vitamin B Complex (B Complex) 1 Each Tablet, 1 EACH PO DAILY, (Reported) Entered as Reported by: SARAHY BAKER on 02/09/211140 Last Action: Converted Physical Exam-Cardiology Physical Exam Vital Signs/I&O 02/14/21 07:13 Temp 36.5 Pulse 76 Resp 18 B/P (MAP) 127/63 (84) Pulse Ox 95 O2 Delivery Room Air Capillary Refill : Constitutional: AAO x 3, well-developed, well-nourished HEENT: PERRL, hearing is well preserved, oral hygience is good Neck: No carotid bruit; carotid pulses are 2 + bilaterally Respiratory: No accessory muscle use, No respiratory distress; chest expansion is symmetric, chest is bilaterally symmetric, other (prolonged exp phase) Cardiovascular: irregularly irregular; No JVD; S1 and S2 Gastrointestinal: No tender; soft, round, audible bowel sounds Extremities: other (mild bilat LE swelling) Neurologic/Psychiatric: other (LUE and LLE 4/5) Skin: No rash on exposed areas, No ulcerations on exposed areas Data Review Labs Laboratory Tests 02/13/21 10:41: Glucometer 171H 02/13/21 16:58: Glucometer 125H 02/13/21 21:14: Glucometer 158H 02/14/21 05:40: Glucometer 124H 02/14/21 05:50: White Blood Count 4.7, Red Blood Count 4.24L, Hemoglobin 13.8, Hematocrit 41, Mean Corpuscular Volume 96, Mean Corpuscular Hemoglobin 33, Mean Corpuscular Hemoglobin Concent 34, Red Cell Distribution Width 13.2, Platelet Count 108L, Mean Platelet Volume 10.7, Immature Granulocyte % (Auto) 0, Neutrophils (%) (Auto) 60, Lymphocytes (%) (Auto) 26, Monocytes (%) (Auto) 8, Eosinophils (%) (Auto) 4, Basophils (%) (Auto) 1, Neutrophils # (Auto) 2.8, Lymphocytes # (Auto) 1.2, Monocytes # (Auto) 0.4, Eosinophils # (Auto) 0.2, Basophils # (Auto) 0.0, Immature Granulocyte # (Auto) 0.0, Percent Immature Platelet Fraction 3.0, Sodium Level 136, Potassium Level 3.8, Chloride Level 106, Carbon Dioxide Level 23, Anion Gap 7, Blood Urea Nitrogen 18, Creatinine 0.80, Estimat Glomerular Filtration Rate 93, BUN/Creatinine Ratio 23, Glucose Level 127H, Calcium Level 8.3L, Corrected Calcium 9.4, Total Bilirubin 1.2H, Aspartate Amino Transf (AST/SGOT) 23, Alanine Aminotransferase (ALT/SGPT) 35, Alkaline Phosphatase 51, Total Protein 5.3L, Albumin 2.6L ECG Impression ECG Initial ECG Impression: Atrial Fibrillation (LBBB) A/P-Cardiology Assessment/Admission Diagnosis Cervial myelopathy with LUE and LLE weakness - management per medical services Chronic a-fib - OAC with Eliquis HTN - controlled HLD - statin tx Cardiomyopathy - undetermined length of time - echocardiogram from 02-04-[address] [facility] by Dr. Michaels showed LVEF 25%. Mod pulmonary HTN BAM - CPAP tx COPD DM 2 H/O TURP Discussion and Recomendations Chronic a-fib with controlled rate Continue OAC with Eliquis Cardiomyopathy of undetermined source or length of time seen on echo of 02-04-[address] [facility] Request records from Dr. Kruger at [facility] Continue BB Add WILLAM (-) to regimen d/t documented cardiomyopathy Monitor lab Further recs will be based on his hospital course We would like to thank Dr. Dumont for this consult JULIETTE KENNY Feb 11, 2021 10:50
--- NOTE | 2021-02-11 10:55 | Physical Therapy Daily Note ---
PT Daily Note-Current Subjective Patient in bed pre tx, agrees to PT, has no complaints of pain. Will be co- treating with OT due to poor patient mobility, strength, endurance, poor sitting balance, coordinate UE and LE during activity, safety and reduce risk of falls. Appearance Patient in bed post tx with nurse call, phone, tray, all needs met. Mental Status Patient Orientation: Person, Place, Situation Transfers SCALE: Activities may be completed with or without assistive devices. 0-Wvdsispday-comssvx completes the activity by him/herself with no assistance from a helper. 5-Set-up or Clean-up Assistance-helper sets up or cleans up; patient completes activity. [place] assists only prior to or following the activity. 4-Supervision or Touching Assistance-helper provides verbal cues and/or touching/steadying and/or contact guard assistance as patient completes activity. Assistance may be provided throughout the activity or intermittently. 3-Partial/Moderate Assistance-helper does LESS THAN HALF the effort. [place] lifts, holds or supports trunk or limbs, but provides less than half the effort. 2-Substantial/Maximal Assistance-helper does MORE THAN HALF the effort. [place] lifts or holds trunk or limbs and provides more than half the effort. 8-Kjqgyjmig-lmvean does ALL the effort. Patient does none of the effort to complete the activity. Or, the assistance of 2 or more helpers is required for the patient to complete the activity. If activity was not attempted, code reason: 7-Patient Refused. 9-Not Applicable-not attempted and the patient did not perform the activity before the current illness, exacerbation or injury. 10-Not Attempted due to Environmental Limitations-(lack of equipment, weather restraints, etc.). 88-Not Attempted due to Medical Conditions or Safety Concerns. Roll Left & Right (QC): 3 Chair/Val-qw-Sfbxt Xfer(QC): 1 Patient had improved rolling, min assist to the left and mod assist to the right. Patient had to roll each way to place coleen sling, and then again after getting back to bed. Patient needs cues for positioning. Coleen to WC and back. Wheelchair Training Does the Pt Use a Wheelchair?: Yes Wheel 50 ft with 2 turns (QC): 4 Type of Wheelchair: Manual 100', SBA, cues for direction Exercises manually resisted leg press 3 sets of 10 Treatments PT performed bed mobility and transfers, WC mobility, LE strengthening, OT perfo rmed UE positioning and safety during activity, assisted with transfers and mobility. Assessment Current Status: Poor Progress slight improvement in rolling PT Short Term Goals Short Term Goals Time Frame: Feb 17, 2021 Roll Left & Right: 3 Sit to lyin Lying to sitting on side of be: 3 Wheel 50ft w/2 turns: 4 Wheel 150 feet: 4 PT Mcfp Goals Auto Motor Mechanic Goals PT Mcfp Goals Time Frame: Mar 03, 2021 Roll Left & Right (QC): 4 Sit to Lying (QC): 4 Lying-Sitting on Side/Bed(QC): 4 Sit to Stand (QC): 88 Chair/Qen-pc-Vejyo Xfer(QC): 88 Toilet Transfer (QC): 88 Car Transfer (QC): 88 Does the Patient Walk: No and Walking Goal NOT indicated Walk 10 feet (QC): 88 Walk 50ft with 2 Turns (QC): 88 Walk 150 ft (QC): 88 Walking 10ft on Uneven Surface: 88 1 Step (curb) (QC): 88 4 Steps (QC): 88 12 Steps (QC): 88 Picking up an Object (QC): 88 Wheel 50 feet with 2 turns (QC: 6 Wheel 150 feet: 6 PT Plan Problem List Problem List: Activity Tolerance, Functional Strength, Safety, Balance, Gait, Transfer, Bed Mobility, ROM Treatment/Plan Treatment Plan: Continue Plan of Care Treatment Plan: Bed Mobility, Education, Functional Activity Jorge, Functional Strength, Group Therapy, Gait, Safety, Therapeutic Exercise, Transfers Treatment Duration: Mar 03, 2021 Frequency: At least 5 of 7 days/Wk (IRF) Estimated Hrs Per Day: 1.5 hours per day Patient and/or Family Agrees t: Yes Safety Risks/Education Patient Education: Transfer Techniques, Correct Positioning, W/C Management, Safety Issues Teaching Recipient: Patient Teaching Methods: Demonstration, Discussion Response to Teaching: Reinforcement Needed Time/GCodes Time In: 1000 Time Out: 1100 Total Billed Treatment Time: 60 Total Billed Treatment 1 visit EX 15' FA 45' TARA MCCOY PT Feb 11, 2021 10:55
--- NOTE | 2021-02-11 11:07 | Occupational Ther Daily Note ---
OT Current Status-Daily Note Subjective Pt denies pain, slept well. Agreeable to treatment. Appearance Pt left supine in bed, all needs within reach Mental Status/Objective Patient Orientation: Person ADL-Treatment Therapy Code Descriptions/Definitions Functional [place] Measure: 0=Not Assessed/NA 4=Minimal Assistance 1=Total Assistance 5=Supervision or Setup 2=Maximal Assistance 6=Modified [place] 3=Moderate Assistance 7=Complete IndependenceSCALE: Activities may be completed with or without assistive devices. 9-Tenadqmrlh-epgrenr completes the activity by him/herself with no assistance from a helper. 5-Set-up or Clean-up Assistance-helper sets up or cleans up; patient completes activity. [place] assists only prior to or following the activity. 4-Supervision or Touching Assistance-helper provides verbal cues and/or touching/steadying and/or contact guard assistance as patient completes activity. Assistance may be provided throughout the activity or intermittently. 3-Partial/Moderate Assistance-helper does LESS THAN HALF the effort. [place] l ifts, holds or supports trunk or limbs, but provides less than half the effort. 2-Substantial/Maximal Assistance-helper does MORE THAN HALF the effort. [place] lifts or holds trunk or limbs and provides more than half the effort. 0-Nhmyvfcaj-dypuhe does ALL the effort. Patient does none of the effort to complete the activity. Or, the assistance of 2 or more helpers is required for t he patient to complete the activity. If activity was not attempted, code reason: 7-Patient Refused. 9-Not Applicable-not attempted and the patient did not perform the activity before the current illness, exacerbation or injury. 10-Not Attempted due to Environmental Limitations-(lack of equipment, weather restraints, etc.). 88-Not Attempted due to Medical Conditions or Safety Concerns. Oral Hygiene (QC): 3 Upper Body Dressing (QC): 3 On/Off Footwear: 1 Toileting Hygiene (QC): 1 Toilet Transfer (QC): 1 Other Treatment Co-treat with PT due to poor patient mobility, strength, endurance, sitting balance, safety and high fall risk. Improved bed mobility; Min a to roll Left, Mod a to roll R. Dep to transfer to W/c by use of Coleen. While in w/c pt donned button up shirt with mod A due to impaired core strength/control and fm coordination. Pt unable to maintain unsupported upright posture and requires UE's to bring self anterior when bringing shirt around back of torso. Mod-max a for balance when upper extremities fatigue. Increased difficulty/time exhibited when performing buttons. Cues to line button up and push through with index/ thumb. Post cues, pt able to complete 3/4 buttons. Max a to maintain sitting balance/forward posture when sitting at sink for oral care. Pt often requiring heavy reliance on UE to pull self forward towards sink. Pt would be unable to perform any functional activities in unsupported sitting at this time. Pt propelled w/c to/from therapy gym with extra time and min cues for w/c manag ement. LE strengthening exercises performed with assist needed during flexion of L knee. Pt fatigues quickly and requires several rest breaks. Education OT Patient Education: Correct positioning, Energy conservation, Modified ADL techniques, Progress toward Goal/Update tx plan, Purpose of tx/functional activities, Reviewed precautions, Rehab process, Safety issues, Transfer techniques, W/C management Teaching Recipient: Patient Teaching Methods: Demonstration, Discussion Response to Teaching: Verbalize Understanding, Return Demonstration OT Short Term Goals Short Term Goals Time Frame: Feb 24, 2021 Eatin Oral hygiene: 4 Toileting hygiene: 2 Shower/bathe self: 2 Upper body dressin Lower body dressin Putting on/taking off footwear: 3 OT Field Representatives Director Goals Field Representatives Director Goals Time Frame: Mar 04, 2021 Eating (QC): 6 Oral Hygiene (QC): 5 Toileting Hygiene (QC): 4 Shower/Bathe Self (QC): 3 Upper Body Dressing (QC): 4 Lower Body Dressing (QC): 3 On/Off Footwear (QC): 4 1=Demonstrate adherence to instructed precautions during ADL tasks. 2=Patient will verbalize/demonstrate understanding of assistive devices/modifications for ADL. 3=Patient will improve strength/tolerance for activity to enable patient to perform ADL's. OT Education/Plan Problem List/Assessment Assessment: Decreased Activ Tolerance, Decreased Safety Aware, Decreased UE Strength, Dependent Transfers, Impaired Bed Mobility, Impaired Cognition, Impaired Coordination, Impaired Funct Balance, Impaired I ADL's, Impaired Self- Care Skills, Restricted Funct UE ROM Discharge Recommendations Plan/Recommendations: Continue POC Target Placement Ongoing assessment, Assisted living vs LTC Treatment Plan/Plan of Care Patient would benefit from OT for education, treatment and training to promote independence in ADL's, mobility, safety and/or upper extremity function for ADL's. Plan of Care: ADL Retraining, Functional Mobility, Group Exercise/Act as Ind, UE Funct Exercise/Act, W/C Management Training Treatment Duration: Mar 04, 2021 Frequency: At least 5 of 7 days/Wk (IRF) Estimated Hrs Per Day: 1.5 hours per day Agreement: Yes Rehab Potential: Guarded Time/GCodes Start Time: 10:00 Stop Time: 11:00 Total Time Billed (hr/min): 60 Billed Treatment Time 1 visit ADL x 2 (30) FA x2 (30) Antonieta Angel OT Feb 11, 2021 11:07
--- NOTE | 2021-02-11 13:28 | Occupational Ther Daily Note ---
OT Current Status-Daily Note Subjective Pt denies pain, agreeable to treatment. Appearance Pt left supine, all needs in reach at OT departure. Mental Status/Objective Patient Orientation: Person ADL-Treatment Therapy Code Descriptions/Definitions Functional [place] Measure: 0=Not Assessed/NA 4=Minimal Assistance 1=Total Assistance 5=Supervision or Setup 2=Maximal Assistance 6=Modified [place] 3=Moderate Assistance 7=Complete IndependenceSCALE: Activities may be completed with or without assistive devices. 9-Kiwkoblhst-tbjzlub completes the activity by him/herself with no assistance from a helper. 5-Set-up or Clean-up Assistance-helper sets up or cleans up; patient completes activity. [place] assists only prior to or following the activity. 4-Supervision or Touching Assistance-helper provides verbal cues and/or touching/steadying and/or contact guard assistance as patient completes activity. Assistance may be provided throughout the activity or intermittently. 3-Partial/Moderate Assistance-helper does LESS THAN HALF the effort. [place] lifts, holds or supports trunk or limbs, but provides less than half the effort. 2-Substantial/Maximal Assistance-helper does MORE THAN HALF the effort. [place] lifts or holds trunk or limbs and provides more than half the effort. 1-Cdurbyaqz-klocjo does ALL the effort. Patient does none of the effort to complete the activity. Or, the assistance of 2 or more helpers is required for the patient to complete the activity. If activity was not attempted, code reason: 7-Patient Refused. 9-Not Applicable-not attempted and the patient did not perform the activity before the current illness, exacerbation or injury. 10-Not Attempted due to Environmental Limitations-(lack of equipment, weather restraints, etc.). 88-Not Attempted due to Medical Conditions or Safety Concerns. Other Treatment OT issued and instructed pt on theraband exercises with yellow band. Intermittent Assist needed with LUE exercises secondary to weakness. Pt fatigues easily with LUE and only able to tolerate ~5-6 reps. Pt will take a break and finish remaining 4-5 reps. Able to tolerate 12 reps with RUE exercises. Min cues for control and form throughout. During treatment, Wound RN in to assess buttocks. Min A to roll L and maintain sidelying position during assessment. Education OT Patient Education: Correct positioning, Disease process, Exercise program, Progress toward Goal/Update tx plan, Purpose of tx/functional activities, Rehab process, Transfer techniques Teaching Recipient: Patient Teaching Methods: Demonstration, Discussion Response to Teaching: Verbalize Understanding, Return Demonstration, Reinforcement Needed OT Short Term Goals Short Term Goals Time Frame: Feb 24, 2021 Eatin Oral hygiene: 4 Toileting hygiene: 2 Shower/bathe self: 2 Upper body dressin Lower body dressin Putting on/taking off footwear: 3 OT Senior Care Goals Television Maintenance Man Goals Time Frame: Mar 04, 2021 Eating (QC): 6 Oral Hygiene (QC): 5 Toileting Hygiene (QC): 4 Shower/Bathe Self (QC): 3 Upper Body Dressing (QC): 4 Lower Body Dressing (QC): 3 On/Off Footwear (QC): 4 1=Demonstrate adherence to instructed precautions during ADL tasks. 2=Patient will verbalize/demonstrate understanding of assistive devices/modifications for ADL. 3=Patient will improve strength/tolerance for activity to enable patient to perform ADL's. OT Education/Plan Problem List/Assessment Assessment: Decreased Activ Tolerance, Decreased Safety Aware, Decreased UE Strength, Dependent Transfers, Impaired Bed Mobility, Impaired Coordination, Impaired Funct Balance, Impaired I ADL's, Impaired Self-Care Skills, Restricted Funct UE ROM Discharge Recommendations Plan/Recommendations: Continue POC Treatment Plan/Plan of Care Treatment,Training & Education: Yes Patient would benefit from OT for education, treatment and training to promote independence in ADL's, mobility, safety and/or upper extremity function for ADL's. Plan of Care: ADL Retraining, Functional Mobility, Group Exercise/Act as Ind, UE Funct Exercise/Act, W/C Management Training Treatment Duration: Mar 04, 2021 Frequency: At least 5 of 7 days/Wk (IRF) Estimated Hrs Per Day: 1.5 hours per day Agreement: Yes Rehab Potential: Guarded Time/GCodes Start Time: 12:46 Stop Time: 13:19 Total Time Billed (hr/min): 33 Billed Treatment Time 1 visit, EX Antonieta John OT Feb 11, 2021 13:28
--- NOTE | 2021-02-11 13:33 | Wound Care Assessment ---
Wound Care Assessment Date Seen by Provider: Feb 11, 2021 Time Seen by Provider: 13:30 Chief Complaint Pressure ulcers-sacrum HPI Pleasant 80 year old gentleman admitted to [facility] rehab unit following episode of cervical myelopathy. Patient with left UE and LE hemiplegia that has gradually worsened resulting in falls and pressure injuries. Receiving PT when I was at bedside today. He does also have a h/o urinary retention and prostate surgery leading to chronic incontinence. He is in a brief today. He has a remote h/o smoking and is diabetic (on insulin). Last A1C uncertain but latest glucose in computer 129. Patient is max assist and requires Coleen lift. He is on his back much of the time. He does have an air mattress in hospital. Albumin this a.m. 2.5. Suspect PEM. Past Medical History: Admits Diabetes Type II, Admits Heart Disease PVD, Cognitive impairment, HTN, GERD, BAM, PUD, h/o urinary retention, frequent falls due to left sided weakness, cervical myelopathy (no known malignancy) Smoking Status: Former Smoker Alcohol Use: Occasionally Uses Review of Systems General: Fatigue Genitourinary: Incontinence, Retention Neurological: Weakness (Left hemiplegia) Exam Vital Signs Date Time Temp Pulse Resp B/P (MAP) Pulse Ox O2 Delivery O2 Flow Rate FiO2 02/11/21 09:37 Room Air 02/11/21 08:00 36.6 74 16 140/80 (100) 96 Capillary Refill : General Appearance: WD/WN, no apparent distress, obese Extremities: no pedal edema Neurologic/Psychiatric: alert, normal mood/affect, oriented x 3, abnormal gait, motor weakness (LUE 3/5, LLE 3/5) Skin: normal color, warm/dry Skin Problem Location: other (sacrum (superior bilateral lateral ulcers, inferior midline ulcer)) Skin Character: drainage (Mod. serous drainage from superior ulcers), other (1. Superior right and left sacral ulcers: Stage 2, flat margins, small granulation, no necrotic tissue, no epithelialization. 2. Inferior midline ulcer: stage 2, scant serous drainage, flat margins, no granulation, no necrotic tissue, no epithelialization. No erythema, no induration, no signs of infection. No odor. ) Results Laboratory Tests 02/10/21 16:31: Glucometer 144H 02/10/21 21:29: Glucometer 174H 02/11/21 05:56: White Blood Count 5.1, Red Blood Count 4.05L, Hemoglobin 13.4, Hematocrit 40, Mean Corpuscular Volume 98, Mean Corpuscular Hemoglobin 33, Mean Corpuscular Hemoglobin Concent 34, Red Cell Distribution Width 13.3, Platelet Count 118L, Mean Platelet Volume 11.4, Immature Granulocyte % (Auto) 0, Neutrophils (%) (Auto) 68, Lymphocytes (%) (Auto) 18, Monocytes (%) (Auto) 10, Eosinophils (%) (Auto) 3, Basophils (%) (Auto) 1, Neutrophils # (Auto) 3.5, Lymphocytes # (Auto) 0.9L, Monocytes # (Auto) 0.5, Eosinophils # (Auto) 0.2, Basophils # (Auto) 0.0, Immature Granulocyte # (Auto) 0.0, Percent Immature Platelet Fraction 3.4, Sodium Level 139, Potassium Level 3.6, Chloride Level 108H, Carbon Dioxide Level 21, Anion Gap 10, Blood Urea Nitrogen 23H, Creatinine 0.70, Estimat Glomerular Filtration Rate 109, BUN/Creatinine Ratio 33, Glucose Level 129H, Calcium Level 8.2L, Corrected Calcium 9.4, Total Bilirubin 1.1H, Aspartate Amino Transf (AST/SGOT) 25, Alanine Aminotransferase (ALT/SGPT) 39, Alkaline Phosphatase 46, Total Protein 5.2L, Albumin 2.5L, Digoxin Level 0.54L 02/11/21 06:23: Glucometer 122H 02/11/21 11:47: Glucometer 196H Assessment/Plan/Dx A: 1. Bilateral Superior Sacral Stage 2 Pressure Ulcers 2. Inferior Midline sacral stage 2 pressure ulcer 3. Cervical Myelopathy with resulting left hemiplegia and immobility 4. Urinary incontinence P: 1. Aquacel (silver alginate hydrofiber) to open wounds (primary dressing) 2. Bordered foam (Allevyn) secondary dressing 3. Change dressings daily 4. Calmoseptine to periarea for moisture protection 5. Frequent turning and air mattress for offloading 6. Frequent changing with incontinence. 7. No signs of infection 8. Please do not hesitate to call if the wounds fail to progress with current measures. RAND MONDRAGON MD Feb 11, 2021 13:33
--- NOTE | 2021-02-11 14:00 | Physical Therapy Daily Note ---
PT Daily Note-Current Subjective Patient in bed pre tx, agrees to PT, has no complaints of pain. Appearance Patient in bed post tx with nurse call, phone, tray, all needs met. Mental Status Patient Orientation: Person, Place, Situation Transfers SCALE: Activities may be completed with or without assistive devices. 2-Wxetwsymbw-mxzvaip completes the activity by him/herself with no assistance from a helper. 5-Set-up or Clean-up Assistance-helper sets up or cleans up; patient completes activity. [place] assists only prior to or following the activity. 4-Supervision or Touching Assistance-helper provides verbal cues and/or touching/steadying and/or contact guard assistance as patient completes activity. Assistance may be provided throughout the activity or intermittently. 3-Partial/Moderate Assistance-helper does LESS THAN HALF the effort. [place] lifts, holds or supports trunk or limbs, but provides less than half the effort. 2-Substantial/Maximal Assistance-helper does MORE THAN HALF the effort. [place] lifts or holds trunk or limbs and provides more than half the effort. 0-Gtcuqbiqv-hzkfop does ALL the effort. Patient does none of the effort to complete the activity. Or, the assistance of 2 or more helpers is required for the patient to complete the activity. If activity was not attempted, code reason: 7-Patient Refused. 9-Not Applicable-not attempted and the patient did not perform the activity before the current illness, exacerbation or injury. 10-Not Attempted due to Environmental Limitations-(lack of equipment, weather restraints, etc.). 88-Not Attempted due to Medical Conditions or Safety Concerns. Exercises Supine Ex: Ankle pumps, Quad Set, Glut sets, Heel Slides, Short Arc Quads, Straight leg raise, Hip abd/add Supine Reps: 20 (AAROM on the left side) left manual gastroc stretching Treatments stretching, ROM Assessment Current Status: Poor Progress Patient does have some strength with all movements on the left side. PT Short Term Goals Short Term Goals Time Frame: Feb 17, 2021 Roll Left & Right: 3 Sit to lyin Lying to sitting on side of be: 3 Wheel 50ft w/2 turns: 4 Wheel 150 feet: 4 PT Director Internal Communications Goals Director Internal Communications Goals PT Director Internal Communications Goals Time Frame: Mar 03, 2021 Roll Left & Right (QC): 4 Sit to Lying (QC): 4 Lying-Sitting on Side/Bed(QC): 4 Sit to Stand (QC): 88 Chair/Zwt-ui-Buvxo Xfer(QC): 88 Toilet Transfer (QC): 88 Car Transfer (QC): 88 Does the Patient Walk: No and Walking Goal NOT indicated Walk 10 feet (QC): 88 Walk 50ft with 2 Turns (QC): 88 Walk 150 ft (QC): 88 Walking 10ft on Uneven Surface: 88 1 Step (curb) (QC): 88 4 Steps (QC): 88 12 Steps (QC): 88 Picking up an Object (QC): 88 Wheel 50 feet with 2 turns (QC: 6 Wheel 150 feet: 6 PT Plan Problem List Problem List: Activity Tolerance, Functional Strength, Safety, Balance, Gait, Transfer, Bed Mobility, ROM Treatment/Plan Treatment Plan: Continue Plan of Care Treatment Plan: Bed Mobility, Education, Functional Activity Jorge, Functional Strength, Group Therapy, Gait, Safety, Therapeutic Exercise, Transfers Treatment Duration: Mar 03, 2021 Frequency: At least 5 of 7 days/Wk (IRF) Estimated Hrs Per Day: 1.5 hours per day Patient and/or Family Agrees t: Yes Safety Risks/Education Patient Education: Correct Positioning, Safety Issues Teaching Recipient: Patient Teaching Methods: Demonstration, Discussion Response to Teaching: Reinforcement Needed Time/GCodes Time In: 1330 Time Out: 1400 Total Billed Treatment Time: 30 Total Billed Treatment 1 visit EX 30' TARA MCCOY PT Feb 11, 2021 14:00
--- NOTE | 2021-02-11 17:29 | Consultation-Cardiology ---
HPI-Cardiology Cardiology Consultation: Date of Consultation 02/11/21 Time Seen by a Provider: 17:15 Date of Admission Attending Physician Nia Dumont DO Admitting Physician Consulting Physician EDGARDO GRAF MD, MA, FACP, FACC, FSCAI, CCDS HPI: Chief Complaint: Atrial fib Cardiac management Mr. Sanches is a 80 yr old male admitted to [address] from [facility] in . Review of available records has been done. He reports in May 2020 he began to develop left sided weakness which continued to progress to inability to walk without use of walker and progressive LUE and LLE weakness. He was transferred to [facility] for neurology/neuro-surgery consult. No evidence of stroke was found per pt. He was found to have cervical myelopathy which was treated with steroids. He continues to have LUE and LLE weakness. He denies any c/o CP or palpitations. No c/o SOB. No c/o syncope or near syncope. 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 Kruger at [facility]. He reports chronic a-fib for which he in on OAC with Eliquis and has been compliant. Review of Systems-Cardiology Review of Systems Constitutional: No chills; malaise Eyes: No vision change Ears/Nose/Throat: No epistaxis, No recent hearing loss, No ulcerations Respiratory: As described under HPI Cardiovascular: As described under HPI Gastrointestinal: No constipation, No diarrhea, No nausea, No vomiting Genitourinary: No dysuria, No hematuria Musculoskeletal: As describe under HPI Skin: No rash on exposed areas, No ulcerations on exposed areas Psychiatric/Neurological: As described under HPI; No anxiety, No depression, No seizure, No focal weakness, No syncope Hematologic: No bleeding abnormalities All Other Systems Reviewed Negative Unless Noted: Yes VIE-Tzvjmk-Wzpfqt Hx Patient Social History Marrital Status: Employed/Student: retired Smoking Status: Former Smoker Have you traveled recently?: No Alcohol Use?: No Pt feels they are or have been: No Tobacco type used: Cigarettes Past Medical History PMH As described under Assessment. Family Medical History Family Medical History: No reported family h/o CAD Allergies and Home Medications Allergies Coded Allergies: No Known Drug Allergies (Unverified , 02/09/21) Patient Home Medication List Home Medication List Reviewed: Yes Apixaban (Eliquis) 5 Mg Tablet, 5 MG PO BID, (Reported) Entered as Reported by: SARAHY BAKER on 02/09/211140 Last Action: Continued Calcium/Magnesium/Vitamin D3 (Rojas-Mag Complex 300-150 mg Tab) 1 Each Tablet, 1 EACH PO DAILY, (Reported) Entered as Reported by: SARAHY BAKER on 02/09/211140 Last Action: Converted Digoxin (Digoxin) 125 Mcg Tablet, 125 MCG PO 1800, (Reported) Entered as Reported by: SARAHY BAKER on 02/09/211140 Last Action: Continued Insulin Glargine,Hum.rec.anlog (Lantus) 100 Unit/1 Ml Vial, 5 UNIT SQ HS, (Reported) Entered as Reported by: SARAHY BAKER on 02/09/211140 Last Action: Converted Insulin Lispro (Insulin Lispro) 100 Unit/1 Ml Vial, UNIT SQ ACHS, (Reported) Entered as Reported by: SARAHY BAKER on 02/09/211140 Last Action: Held Metoprolol Succinate (Metoprolol Succinate) 200 Mg Tab.er.24h, 300 MG PO DAILY, (Reported) Entered as Reported by: SARAHY BAKER on 02/09/211140 Last Action: Converted [place]-3 Fatty Acids/Fish Oil ([place] 3 Fish Oil Softgel) 1 Each Capsule.dr, 1 EACH PO BID, (Reported) Entered as Reported by: SARAHY BAKER on 02/09/211140 Last Action: Converted Polyethylene Glycol 3350 (Miralax) 17 Gm Powd.pack, 17 GM PO DAILY PRN for CONSTIPATION-2ND LINE, (Reported) Entered as Reported by: SARAHY BAKER on 02/09/211140 Last Action: Continued Vitamin B Complex (B Complex) 1 Each Tablet, 1 EACH PO DAILY, (Reported) Entered as Reported by: SARAHY BAKER on 02/09/211140 Last Action: Converted Physical Exam-Cardiology Physical Exam Vital Signs/I&O 02/11/21 02/11/21 08:00 09:37 Temp 36.6 Pulse 74 Resp 16 B/P (MAP) 140/80 (100) Pulse Ox 96 O2 Delivery Room Air Room Air Capillary Refill : Constitutional: AAO x 3, well-developed, well-nourished HEENT: PERRL, hearing is well preserved, oral hygience is good Neck: No carotid bruit; carotid pulses are 2 + bilaterally Respiratory: No accessory muscle use, No respiratory distress; chest expansion is symmetric, chest is bilaterally symmetric, other (prolonged exp phase) Cardiovascular: irregularly irregular; No JVD; S1 and S2 Gastrointestinal: No tender; soft, round, audible bowel sounds Extremities: other (mild bilat LE swelling) Neurologic/Psychiatric: other (LUE and LLE 4/5) Skin: No rash on exposed areas, No ulcerations on exposed areas Data Review Labs Laboratory Tests 02/10/21 21:29: Glucometer 174H 02/11/21 05:56: White Blood Count 5.1, Red Blood Count 4.05L, Hemoglobin 13.4, Hematocrit 40, Mean Corpuscular Volume 98, Mean Corpuscular Hemoglobin 33, Mean Corpuscular Hemoglobin Concent 34, Red Cell Distribution Width 13.3, Platelet Count 118L, Mean Platelet Volume 11.4, Immature Granulocyte % (Auto) 0, Neutrophils (%) (Auto) 68, Lymphocytes (%) (Auto) 18, Monocytes (%) (Auto) 10, Eosinophils (%) (Auto) 3, Basophils (%) (Auto) 1, Neutrophils # (Auto) 3.5, Lymphocytes # (Auto) 0.9L, Monocytes # (Auto) 0.5, Eosinophils # (Auto) 0.2, Basophils # (Auto) 0.0, Immature Granulocyte # (Auto) 0.0, Percent Immature Platelet Fraction 3.4, Sodium Level 139, Potassium Level 3.6, Chloride Level 108H, Carbon Dioxide Level 21, Anion Gap 10, Blood Urea Nitrogen 23H, Creatinine 0.70, Estimat Glomerular Filtration Rate 109, BUN/Creatinine Ratio 33, Glucose Level 129H, Calcium Level 8.2L, Corrected Calcium 9.4, Total Bilirubin 1.1H, Aspartate Amino Transf (AST/SGOT) 25, Alanine Aminotransferase (ALT/SGPT) 39, Alkaline Phosphatase 46, Total Protein 5.2L, Albumin 2.5L, Digoxin Level 0.54L 02/11/21 06:23: Glucometer 122H 02/11/21 11:47: Glucometer 196H 02/11/21 17:06: Glucometer 127H A/P-Cardiology Assessment/Admission Diagnosis Cervial myelopathy with LUE and LLE weakness - management per medical services Chronic a-fib - OAC with Eliquis HTN - controlled HLD - statin tx Cardiomyopathy - undetermined length of time - echocardiogram from 02-04-[address] [facility] by Dr. Michaels showed LVEF 25%. Mod pulmonary HTN BAM - CPAP tx COPD DM 2 H/O TURP Discussion and Recomendations Chronic a-fib with controlled rate Continue OAC with Eliquis Cardiomyopathy of undetermined source or length of time seen on echo of 02-04-[address] [facility] Request records from Dr. Kruger at [facility] Continue BB Add WILLAM (-) to regimen d/t documented cardiomyopathy Monitor lab Further recs will be based on his hospital course We would like to thank Dr. Dumont for this consult EDGARDO GRAF MD FACP FAC CCDS Feb 11, 2021 17:29
[2021-02-11] MEDS: DIGOXIN 0.125 MG (LANOXIN) TAB PO SCH (19:11)
[2021-02-11 20:00] VITALS: BP 133/83
[2021-02-11] MEDS: MELATONIN 3 MG TABLET PO PRN (20:59)
[2021-02-11] MEDS: MENTHOL/ZINC OXIDE (CALMOSEPTINE) 113 GM TUBE TOP PRN (20:59)
[2021-02-12] MEDS: inSUlin ASPART (NovoLOG) 1 UNIT/0.01 ML (CHARGE PER UNIT) SC SCH ×4 (05:40→20:27)
[2021-02-12 08:00] VITALS: BP 120/76
[2021-02-12] MEDS: lisINopril 10 MG (PRINIVIL) TABLET PO SCH (08:07)
[2021-02-12] MEDS: MULTIVIT W/MINERALS TAB (THERAGRAN M) PO SCH (08:07)
[2021-02-12] MEDS: OMEGA 3 (FISH OIL) 1000 MG CAP PO SCH ×2 (08:07→20:28)
[2021-02-12] MEDS: meTOprolol SUCCINATE 100 MG (TOPROL XL) TAB PO SCH (08:07)
[2021-02-12] MEDS: MAGNESIUM OXIDE (MAG-OX)400 MG TAB PO SCH (08:07)
[2021-02-12] MEDS: APIXABAN 5 MG (ELIQUIS) TABLET PO SCH ×2 (08:07→20:27)
[2021-02-12] MEDS: CALCIUM CARB + VIT D 600 MG (CALCARB + D) TAB PO SCH (08:07)
--- NOTE | 2021-02-12 08:07 | PM&R Progress Note ---
Subjective HPI/CC On Admission Date Seen by Provider: Feb 12, 2021 Time Seen by Provider: 10:30 Subjective/Events-last exam 02/12/2021: Patient doing well Incontinent of bowel and bladder a lot Able to move himself and turn himself in bed Check meds and labs Cognitive deficit could preclude independent living 02/11/2021: Patient doing pretty well Dr. Rubio will be consulted Noncompliant with CPAP machine Oxygen was good last night at 90% Wound care consulted Dr. Pyle Sugars good Bowels are a bit loose and he does have fecal incontinence Review of Systems General: Fatigue, Malaise Neurological: Weakness, Incoordination Objective Exam Vital Signs Vital Signs Date Time Temp Pulse Resp B/P (MAP) Pulse Ox O2 Delivery O2 Flow Rate FiO2 02/12/21 20:35 Room Air 02/12/21 20:32 36.7 72 18 144/84 (104) 100 Capillary Refill : General Appearance: No Apparent Distress, WD/WN, Chronically ill HEENT: PERRL/EOMI, Normal ENT Inspection, Pharynx Normal Neck: Full Range of Motion, Normal Inspection, Non Tender, Supple, Carotid Bruit Respiratory: Chest Non Tender, Lungs Clear, Normal Breath Sounds, No Accessory Muscle Use, No Respiratory Distress Cardiovascular: Regular Rate, Rhythm, No Edema, No Gallop, No JVD, No Murmur, Normal Peripheral Pulses Gastrointestinal: Normal Bowel Sounds, No Organomegaly, No Pulsatile Mass, Non Tender, Soft Back: Normal Inspection, No CVA Tenderness, No Vertebral Tenderness Extremity: Normal Capillary Refill, Normal Inspection, Normal Range of Motion, Non Tender, No Calf Tenderness, No Pedal Edema Neurologic/Psychiatric: Alert, Oriented x3, Normal Mood/Affect, reliability technologist II-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 FIM Transfers Therapy Code Descriptions/Definitions Functional [place] Measure: 0=Not Assessed/NA 4=Minimal Assistance 1=Total Assistance 5=Supervision or Setup 2=Maximal Assistance 6=Modified [place] 3=Moderate Assistance 7=Complete IndependenceSCALE: Activities may be completed with or without assistive devices. 8-Rfdrzgglya-semkxvt completes the activity by him/herself with no assistance from a helper. 5-Set-up or Clean-up Assistance-helper sets up or cleans up; patient completes activity. [place] assists only prior to or following the activity. 4-Supervision or Touching Assistance-helper provides verbal cues and/or touching/steadying and/or contact guard assistance as patient completes activity. Assistance may be provided throughout the activity or intermittently. 3-Partial/Moderate Assistance-helper does LESS THAN HALF the effort. [place] lifts, holds or supports trunk or limbs, but provides less than half the effort. 2-Substantial/Maximal Assistance-helper does MORE THAN HALF the effort. [place] lifts or holds trunk or limbs and provides more than half the effort. 7-Pnkoaygbw-xmcwjx does ALL the effort. Patient does none of the effort to complete the activity. Or, the assistance of 2 or more helpers is required for the patient to complete the activity. If activity was not attempted, code reason: 7-Patient Refused. 9-Not Applicable-not attempted and the patient did not perform the activity before the current illness, exacerbation or injury. 10-Not Attempted due to Environmental Limitations-(lack of equipment, weather restraints, etc.). 88-Not Attempted due to Medical Conditions or Safety Concerns. Roll Left to Right (QC): 3 Sit to Lying (QC): 1 Sit to Stand (QC): 88 Chair/Kfs-cu-Uvxlr Xfer(QC): 1 Car Transfer (QC): 88 Gait Training Does the Patient Walk?: No and Walking Goal NOT indicated Walk 10 feet (QC): 88 Walk 50 ft with 2 Turns(QC): 88 Walk 150 ft (QC): 88 Walking 10ft/uneven surface-QC: 88 Wheelchair Training Does the Pt Use a Wheelchair?: Yes Distance: 100'x2 Wheel 50 ft with 2 turns (QC): 4 Wheel 150 ft (QC): 88 Type of Wheelchair: Manual Stair Training 1 Step (curb) (QC): 88 4 Steps (QC): 88 12 Steps (QC): 88 Balance Picking up an Object (QC): 88 ADL-Treatment Eating (QC): 5 Oral Hygiene (QC): 3 Shower/Bathe Self (QC): 1 Upper Body Dressing (QC): 3 Lower Body Dressing (QC): 1 On/Off Footwear (QC): 1 Toileting Hygiene (QC): 1 Toilet Transfer (QC): 1 Assessment/Plan Assessment and Plan Assess & Plan/Chief Complaint Assessment: 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 and subsequent neurological deficits Lumbar L4-L5 subarticular recess narrowing B/L Left-sided weakness Hepatic Hemangioma Systolic Heart Failure LFT elevation LBBB Previous hypotension Obesity CAD Dementia/cognitive impairment GERD PUD PVD Diabetic polyneuropathy Progressive weakness High risk of falling Gait disturbance Spasticity T2DM Constipation Edema HTN Paroxysmal A-fib Thrombocytopenia Urinary Retention Status post UTI (resolved) BAM on CPAP Plan: Aggressive PT, OT, and speech therapy Order basic lab work in the morning Review records, talk to his family members as they are more in tune with his medical condition then the patient himself Neurology follow up Consult Dr. Rubio for A. fib 02/11/2021: Supportive care Dr. Rubio consult Poor memory recall noted 02/12/2021: Incontinence care Aggressive therapy (1) Cervical spinal cord compression (2) Atrial fibrillation (3) Anticoagulation adequate with anticoagulant therapy (4) Urinary retention CARMELLA ESTRADA DO Feb 12, 2021 08:07
[2021-02-12] MEDS: polyethylene glycoL POWDER 17 GM (MIRALAX) PACK PO SCH ×2 (09:00→20:32)
[2021-02-12] MEDS: SENNA W/DOCUSATE (SENOKOT S) TABLET PO SCH ×2 (09:00→20:27)
[2021-02-12] MEDS: DOCUSATE SODIUM 100 MG (COLACE) CAP PO SCH ×2 (09:00→20:27)
--- NOTE | 2021-02-12 09:41 | Physical Therapy Daily Note ---
PT Daily Note-Current Subjective Patient agrees to PT. Mental Status Patient Orientation: Normal For Age Transfers SCALE: Activities may be completed with or without assistive devices. 5-Kxkriakypp-wxraeke completes the activity by him/herself with no assistance from a helper. 5-Set-up or Clean-up Assistance-helper sets up or cleans up; patient completes activity. [place] assists only prior to or following the activity. 4-Supervision or Touching Assistance-helper provides verbal cues and/or touching/steadying and/or contact guard assistance as patient completes activity. Assistance may be provided throughout the activity or intermittently. 3-Partial/Moderate Assistance-helper does LESS THAN HALF the effort. Ethel lifts, holds or supports trunk or limbs, but provides less than half the effort. 2-Substantial/Maximal Assistance-helper does MORE THAN HALF the effort. Ethel lifts or holds trunk or limbs and provides more than half the effort. 9-Rzvewooum-kxvcnf does ALL the effort. Patient does none of the effort to complete the activity. Or, the assistance of 2 or more helpers is required for the patient to complete the activity. If activity was not attempted, code reason: 7-Patient Refused. 9-Not Applicable-not attempted and the patient did not perform the activity befo re the current illness, exacerbation or injury. 10-Not Attempted due to Environmental Limitations-(lack of equipment, weather re straints, etc.). 88-Not Attempted due to Medical Conditions or Safety Concerns. Roll Left & Right (QC): 1 (x 2 with patient able to perform max assist x 1 for 2 sets then fatigues) Exercises Supine Ex: Ankle pumps, Quad Set, Glut sets, Heel Slides, Straight leg raise, Hip abd/add Supine Reps: 15 (AROM right LE/AAROM left LE) Treatments patient assist with repositioning up in bed with bed in Trendelenberg and patient utilizing bilateral UE's and right LE to assist in this position. Patient repositioned to side lying right with pillow placement between LE's and behind back and LE's for comfort. Patient incontinent BM requiring dependent assist to cleanse and change clothing Assessment Patient remains in bed per RN due to sacral wound. PT Short Term Goals Short Term Goals Time Frame: Feb 17, 2021 Roll Left & Right: 3 Sit to lyin Lying to sitting on side of be: 3 Wheel 50ft w/2 turns: 4 Wheel 150 feet: 4 PT Intermediate Goals Intermediate Goals PT Salvage Winder Goals Time Frame: Mar 03, 2021 Roll Left & Right (QC): 4 Sit to Lying (QC): 4 Lying-Sitting on Side/Bed(QC): 4 Sit to Stand (QC): 88 Chair/Olh-rg-Unyqh Xfer(QC): 88 Toilet Transfer (QC): 88 Car Transfer (QC): 88 Does the Patient Walk: No and Walking Goal NOT indicated Walk 10 feet (QC): 88 Walk 50ft with 2 Turns (QC): 88 Walk 150 ft (QC): 88 Walking 10ft on Uneven Surface: 88 1 Step (curb) (QC): 88 4 Steps (QC): 88 12 Steps (QC): 88 Picking up an Object (QC): 88 Wheel 50 feet with 2 turns (QC: 6 Wheel 150 feet: 6 PT Plan Treatment/Plan Treatment Plan: Continue Plan of Care Treatment Plan: Bed Mobility, Education, Functional Activity Jorge, Functional Strength, Group Therapy, Gait, Safety, Therapeutic Exercise, Transfers Treatment Duration: Mar 03, 2021 Frequency: At least 5 of 7 days/Wk (IRF) Estimated Hrs Per Day: 1.5 hours per day Patient and/or Family Agrees t: Yes Time/GCodes Time In: 905 Time Out: 930 Total Billed Treatment Time: 25 Total Billed Treatment 1 visit EX x 2 25 min PAUL TURPIN PT Feb 12, 2021 09:41
--- NOTE | 2021-02-12 13:36 | Progress Note - Cardiology ---
Cardiology SOAP Progress Note Subjective: No cp or palp or syncope or shortness of breath at rest Gen weakness and malaise No n/v/d Objective: I&O/Vital Signs 02/12/21 02/12/21 08:00 09:00 Temp 36.3 Pulse 65 Resp 18 B/P (MAP) 120/76 (91) Pulse Ox 94 O2 Delivery Room Air Room Air Constitutional: AAO x 3, well-developed, well-nourished Respiratory: No accessory muscle use, No respiratory distress; chest expansion is symmetric, chest is bilaterally symmetric, other (prolonged exp phase) Cardiovascular: irregularly irregular; No JVD; S1 and S2 Gastrointestional: No tender; soft, round, audible bowel sounds Extremities: other (mild bilat LE swelling) Neurologic/Psychiatric: other (LUE and LLE 4/5) Skin: No rash on exposed areas, No ulcerations on exposed areas Results/Procedures: Labs Laboratory Tests 02/11/21 17:06: Glucometer 127H 02/11/21 20:27: Glucometer 190H 02/12/21 05:25: Glucometer 106 02/12/21 11:38: Glucometer 111H Laboratory Tests 02/11/21 05:56 A/P: Assessment: Cervical myelopathy with LUE and LLE weakness - management per medical services Chronic a-fib - OAC with Eliquis HTN - controlled HLD - statin tx Cardiomyopathy - undetermined length of time - echocardiogram from 02-04-21 at [facility] by Dr. Michaels showed LVEF 25%. Mod pulmonary HTN BAM - CPAP tx COPD DM 2 H/O TURP Plan: Continue OAC with Eliquis Cardiomyopathy of undetermined source or length of time seen on echo of 02-04-21 at [facility] Request records from Dr. Kruger at [facility] Continue BB WILLAM (-) added to regimen d/t documented cardiomyopathy Monitor lab EDGARDO GRAF MD FACP FAC CCDS Feb 12, 2021 13:36
[2021-02-12] MEDS: DIGOXIN 0.125 MG (LANOXIN) TAB PO SCH (18:38)
[2021-02-12 20:32] VITALS: BP 144/84
[2021-02-13] MEDS: inSUlin ASPART (NovoLOG) 1 UNIT/0.01 ML (CHARGE PER UNIT) SC SCH ×4 (06:09→21:16)
[2021-02-13 07:08] VITALS: BP 133/79
--- NOTE | 2021-02-13 08:06 | PM&R Progress Note ---
Subjective HPI/CC On Admission Date Seen by Provider: Feb 13, 2021 Time Seen by Provider: 12:00 Subjective/Events-last exam 02/13/2021: Patient doing well Has no needs Bowels are moving well No issues Sugars are reviewed 02/12/2021: Patient doing well Incontinent of bowel and bladder a lot Able to move himself and turn himself in bed Check meds and labs Cognitive deficit could preclude independent living 02/11/2021: Patient doing pretty well Dr. Rubio will be consulted Noncompliant with CPAP machine Oxygen was good last night at 90% Wound care consulted Dr. Pyle Sugars good Bowels are a bit loose and he does have fecal incontinence Review of Systems General: Fatigue Neurological: Weakness, Incoordination Objective Exam Vital Signs Vital Signs Date Time Temp Pulse Resp B/P (MAP) Pulse Ox O2 Delivery O2 Flow Rate FiO2 02/13/21 21:00 94 Room Air 02/13/21 20:00 36.4 63 18 129/64 (85) Capillary Refill : General Appearance: No Apparent Distress, WD/WN, Chronically ill HEENT: PERRL/EOMI, Normal ENT Inspection, Pharynx Normal Neck: Full Range of Motion, Normal Inspection, Non Tender, Supple, Carotid Bruit Respiratory: Chest Non Tender, Lungs Clear, Normal Breath Sounds, No Accessory Muscle Use, No Respiratory Distress Cardiovascular: Regular Rate, Rhythm, No Edema, No Gallop, No JVD, No Murmur, Normal Peripheral Pulses Gastrointestinal: Normal Bowel Sounds, No Organomegaly, No Pulsatile Mass, Non Tender, Soft Back: Normal Inspection, No CVA Tenderness, No Vertebral Tenderness Extremity: Normal Capillary Refill, Normal Inspection, Normal Range of Motion, Non Tender, No Calf Tenderness, No Pedal Edema Neurologic/Psychiatric: Alert, Oriented x3, Normal Mood/Affect, surgery assistant II-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 FIM Transfers Therapy Code Descriptions/Definitions Functional [place] Measure: 0=Not Assessed/NA 4=Minimal Assistance 1=Total Assistance 5=Supervision or Setup 2=Maximal Assistance 6=Modified [place] 3=Moderate Assistance 7=Complete IndependenceSCALE: Activities may be completed with or without assistive devices. 3-Hzvrswavbc-xmbnqsf completes the activity by him/herself with no assistance from a helper. 5-Set-up or Clean-up Assistance-helper sets up or cleans up; patient completes activity. [place] assists only prior to or following the activity. 4-Supervision or Touching Assistance-helper provides verbal cues and/or touching/steadying and/or contact guard assistance as patient completes activity. Assistance may be provided throughout the activity or intermittently. 3-Partial/Moderate Assistance-helper does LESS THAN HALF the effort. [place] lifts, holds or supports trunk or limbs, but provides less than half the effort. 2-Substantial/Maximal Assistance-helper does MORE THAN HALF the effort. [place] lifts or holds trunk or limbs and provides more than half the effort. 9-Wdrxjgvti-ihwews does ALL the effort. Patient does none of the effort to c omplete the activity. Or, the assistance of 2 or more helpers is required for the patient to complete the activity. If activity was not attempted, code reason: 7-Patient Refused. 9-Not Applicable-not attempted and the patient did not perform the activity before the current illness, exacerbation or injury. 10-Not Attempted due to Environmental Limitations-(lack of equipment, weather restraints, etc.). 88-Not Attempted due to Medical Conditions or Safety Concerns. Roll Left to Right (QC): 1 (x 2 with patient able to perform max assist x 1 for 2 sets then fatigues) Sit to Lying (QC): 1 Sit to Stand (QC): 88 Chair/Njk-rx-Uciow Xfer(QC): 1 Car Transfer (QC): 88 Gait Training Does the Patient Walk?: No and Walking Goal NOT indicated Walk 10 feet (QC): 88 Walk 50 ft with 2 Turns(QC): 88 Walk 150 ft (QC): 88 Walking 10ft/uneven surface-QC: 88 Wheelchair Training Does the Pt Use a Wheelchair?: Yes Distance: 100'x2 Wheel 50 ft with 2 turns (QC): 4 Wheel 150 ft (QC): 88 Type of Wheelchair: Manual Stair Training 1 Step (curb) (QC): 88 4 Steps (QC): 88 12 Steps (QC): 88 Balance Picking up an Object (QC): 88 ADL-Treatment Eating (QC): 5 Oral Hygiene (QC): 3 Shower/Bathe Self (QC): 1 Upper Body Dressing (QC): 3 Lower Body Dressing (QC): 1 On/Off Footwear (QC): 1 Toileting Hygiene (QC): 1 Toilet Transfer (QC): 1 Assessment/Plan Assessment and Plan Assess & Plan/Chief Complaint Assessment: 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 and subsequent neurological deficits Lumbar L4-L5 subarticular recess narrowing B/L Left-sided weakness Hepatic Hemangioma Systolic Heart Failure LFT elevation LBBB Previous hypotension Obesity CAD Dementia/cognitive impairment GERD PUD PVD Diabetic polyneuropathy Progressive weakness High risk of falling Gait disturbance Spasticity T2DM Constipation Edema HTN Paroxysmal A-fib Thrombocytopenia Urinary Retention Status post UTI (resolved) BAM on CPAP Plan: Aggressive PT, OT, and speech therapy Order basic lab work in the morning Review records, talk to his family members as they are more in tune with his medical condition then the patient himself Neurology follow up Consult Dr. Rubio for A. fib 02/11/2021: Supportive care Dr. Rubio consult Poor memory recall noted 02/12/2021: Incontinence care Aggressive therapy 02/13/2021: Incontinence care Aggressive therapy (1) Cervical spinal cord compression (2) Atrial fibrillation (3) Anticoagulation adequate with anticoagulant therapy (4) Urinary retention CARMELLA ESTRADA DO Feb 13, 2021 08:06
[2021-02-13] MEDS: MULTIVIT W/MINERALS TAB (THERAGRAN M) PO SCH (08:49)
[2021-02-13] MEDS: lisINopril 10 MG (PRINIVIL) TABLET PO SCH (08:49)
[2021-02-13] MEDS: OMEGA 3 (FISH OIL) 1000 MG CAP PO SCH ×2 (08:50→21:16)
[2021-02-13] MEDS: APIXABAN 5 MG (ELIQUIS) TABLET PO SCH ×2 (08:50→21:16)
[2021-02-13] MEDS: CALCIUM CARB + VIT D 600 MG (CALCARB + D) TAB PO SCH (08:50)
[2021-02-13] MEDS: meTOprolol SUCCINATE 100 MG (TOPROL XL) TAB PO SCH (08:50)
[2021-02-13] MEDS: MAGNESIUM OXIDE (MAG-OX)400 MG TAB PO SCH (08:50)
[2021-02-13] MEDS: polyethylene glycoL POWDER 17 GM (MIRALAX) PACK PO SCH ×2 (09:00→21:00)
[2021-02-13] MEDS: DOCUSATE SODIUM 100 MG (COLACE) CAP PO SCH ×2 (09:00→21:00)
[2021-02-13] MEDS: SENNA W/DOCUSATE (SENOKOT S) TABLET PO SCH ×2 (09:00→21:00)
--- NOTE | 2021-02-13 15:15 | Progress Note - Cardiology ---
Cardiology SOAP Progress Note Subjective: Gen weakness and malaise present No cp or palp or syncope or shortness of breath at rest No n/v/d Objective: I&O/Vital Signs 02/13/21 02/13/21 07:08 09:00 Temp 36.4 Pulse 94 Resp 18 B/P (MAP) 133/79 (97) Pulse Ox 95 O2 Delivery Room Air Room Air Constitutional: AAO x 3, well-developed, well-nourished Respiratory: No accessory muscle use, No respiratory distress; chest expansion is symmetric, chest is bilaterally symmetric, other (prolonged exp phase) Cardiovascular: irregularly irregular; No JVD; S1 and S2 Gastrointestional: No tender; soft, round, audible bowel sounds Extremities: other (mild bilat LE swelling) Neurologic/Psychiatric: other (LUE and LLE 4/5) Skin: No rash on exposed areas, No ulcerations on exposed areas Results/Procedures: Labs Laboratory Tests 02/12/21 16:48: Glucometer 155H 02/12/21 20:26: Glucometer 157H 02/13/21 05:14: Glucometer 123H 02/13/21 10:41: Glucometer 171H A/P: Assessment: Cervical myelopathy with LUE and LLE weakness - management per medical services Chronic a-fib - OAC with Eliquis HTN - controlled HLD - statin tx Cardiomyopathy - undetermined length of time - echocardiogram from 02-04-21 at [facility] by Dr. Michaels showed LVEF 25%. Mod pulmonary HTN BAM - CPAP tx COPD DM 2 H/O TURP Plan: Continue OAC with Eliquis Cardiomyopathy of undetermined source or length of time seen on echo of 02-04-21 at [facility] Request records from Dr. Kruger at [facility] Continue BB WILLAM (-) added to regimen d/t documented cardiomyopathy Monitor lab EDGARDO GRAF MD FACP FAC CCDS Feb 13, 2021 15:15
[2021-02-13] MEDS: DIGOXIN 0.125 MG (LANOXIN) TAB PO SCH (17:57)
[2021-02-13 20:00] VITALS: BP 129/64
[2021-02-13] MEDS: MENTHOL/ZINC OXIDE (CALMOSEPTINE) 113 GM TUBE TOP PRN (21:19)
[2021-02-14 05:56] LABS: MONOCYTES % (AUTO) 8 % (0-12)
[2021-02-14 05:58] LABS: BASOPHILS % (AUTO) 1 % (0-10); EOSINOPHILS # (AUTO) 0.2 10^3/uL (0.0-0.3); EOSINOPHILS % (AUTO) 4 % (0-10); HEMATOCRIT 41 % (40-54); HEMOGLOBIN 13.8 g/dL (13.3-17.7); LYMPHOCYTES # (AUTO) 1.2 10^3/uL (1.0-4.0); LYMPHOCYTES % (AUTO) 26 % (12-44); MEAN CORPUSCULAR HEMOGLOBIN 33 pg (25-34); MEAN CORPUSCULAR HGB CONC 34 g/dL (32-36); MEAN CORPUSCULAR VOLUME 96 fL (80-99); MEAN PLATELET VOLUME 10.7 fL (9.0-12.2); MONOCYTES # (AUTO) 0.4 10^3/uL (0.0-1.0); NEUTROPHILS # (AUTO) 2.8 10^3/uL (1.8-7.8); NEUTROPHILS % (AUTO) 60 % (42-75); PLATELET COUNT 108 10^3/uL (130-400); WHITE BLOOD COUNT 4.7 10^3/uL (4.3-11.0)
[2021-02-14] MEDS: inSUlin ASPART (NovoLOG) 1 UNIT/0.01 ML (CHARGE PER UNIT) SC SCH ×4 (06:07→21:13)
[2021-02-14 06:23] LABS: ALBUMIN 2.6 GM/DL (3.2-4.5)
[2021-02-14 06:24] LABS: POTASSIUM 3.8 MMOL/L (3.6-5.0)
[2021-02-14 06:25] LABS: CALCIUM 8.3 MG/DL (8.5-10.1)
[2021-02-14 06:26] LABS: TOTAL PROTEIN 5.3 GM/DL (6.4-8.2)
[2021-02-14 06:28] LABS: BILIRUBIN,TOTAL 1.2 MG/DL (0.1-1.0)
[2021-02-14 06:30] LABS: CREATININE SERUM 0.8 MG/DL (0.60-1.30)
[2021-02-14 07:13] VITALS: BP 127/63
[2021-02-14] MEDS: APIXABAN 5 MG (ELIQUIS) TABLET PO SCH ×2 (08:28→21:10)
[2021-02-14] MEDS: CALCIUM CARB + VIT D 600 MG (CALCARB + D) TAB PO SCH (08:28)
[2021-02-14] MEDS: OMEGA 3 (FISH OIL) 1000 MG CAP PO SCH ×2 (08:28→21:10)
[2021-02-14] MEDS: MULTIVIT W/MINERALS TAB (THERAGRAN M) PO SCH (08:28)
[2021-02-14] MEDS: MAGNESIUM OXIDE (MAG-OX)400 MG TAB PO SCH (08:28)
[2021-02-14] MEDS: DOCUSATE SODIUM 100 MG (COLACE) CAP PO SCH ×2 (08:29→21:13)
[2021-02-14] MEDS: lisINopril 10 MG (PRINIVIL) TABLET PO SCH (08:29)
[2021-02-14] MEDS: meTOprolol SUCCINATE 100 MG (TOPROL XL) TAB PO SCH (08:29)
[2021-02-14] MEDS: polyethylene glycoL POWDER 17 GM (MIRALAX) PACK PO SCH ×2 (08:29→21:13)
[2021-02-14] MEDS: SENNA W/DOCUSATE (SENOKOT S) TABLET PO SCH ×2 (08:30→21:13)
--- NOTE | 2021-02-14 08:57 | PM&R Progress Note ---
Subjective HPI/CC On Admission Date Seen by Provider: Feb 14, 2021 Time Seen by Provider: 08:45 Subjective/Events-last exam 02/14/2021: Pt doing well Condom catheter will be attempted Platelet count 108 Wound looks good BP and blood sugar good No pain Bowels are moving 02/13/2021: Patient doing well Has no needs Bowels are moving well No issues Sugars are reviewed 02/12/2021: Patient doing well Incontinent of bowel and bladder a lot Able to move himself and turn himself in bed Check meds and labs Cognitive deficit could preclude independent living 02/11/2021: Patient doing pretty well Dr. Rubio will be consulted Noncompliant with CPAP machine Oxygen was good last night at 90% Wound care consulted Dr. Edenilson Prakash good Bowels are a bit loose and he does have fecal incontinence Review of Systems General: Fatigue, Malaise Genitourinary: Incontinence, Retention Neurological: Weakness, Incoordination Objective Exam Vital Signs Vital Signs Date Time Temp Pulse Resp B/P (MAP) Pulse Ox O2 Delivery O2 Flow Rate FiO2 02/14/21 19:56 Room Air 02/14/21 19:54 36.0 81 18 136/85 (102) 97 Capillary Refill : General Appearance: No Apparent Distress, WD/WN, Chronically ill HEENT: PERRL/EOMI, Normal ENT Inspection, Pharynx Normal Neck: Full Range of Motion, Normal Inspection, Non Tender, Supple, Carotid Bruit Respiratory: Chest Non Tender, Lungs Clear, Normal Breath Sounds, No Accessory Muscle Use, No Respiratory Distress Cardiovascular: Regular Rate, Rhythm, No Edema, No Gallop, No JVD, No Murmur, Normal Peripheral Pulses Gastrointestinal: Normal Bowel Sounds, No Organomegaly, No Pulsatile Mass, Non Tender, Soft Back: Normal Inspection, No CVA Tenderness, No Vertebral Tenderness Extremity: Normal Capillary Refill, Normal Inspection, Normal Range of Motion, Non Tender, No Calf Tenderness, No Pedal Edema Neurologic/Psychiatric: Alert, Oriented x3, Normal Mood/Affect, television analyzer II-XII Norm as Tested, Abnormal Gait (Unable to ambulate), Depressed Affect, Motor Weakness (Left side 3/5) Skin: Normal Color, Warm/Dry Lymphatic: No Adenopathy Results/Procedures Lab Laboratory Tests 02/14/21 05:50 Patient resulted labs reviewed. FIM Transfers Therapy Code Descriptions/Definitions Functional [place] Measure: 0=Not Assessed/NA 4=Minimal Assistance 1=Total Assistance 5=Supervision or Setup 2=Maximal Assistance 6=Modified [place] 3=Moderate Assistance 7=Complete IndependenceSCALE: Activities may be completed with or without assistive devices. 8-Rrjyyuajrn-vriffhm completes the activity by him/herself with no assistance from a helper. 5-Set-up or Clean-up Assistance-helper sets up or cleans up; patient completes activity. [place] assists only prior to or following the activity. 4-Supervision or Touching Assistance-helper provides verbal cues and/or touching/steadying and/or contact guard assistance as patient completes activi ty. Assistance may be provided throughout the activity or intermittently. 3-Partial/Moderate Assistance-helper does LESS THAN HALF the effort. [place] lifts, holds or supports trunk or limbs, but provides less than half the effort. 2-Substantial/Maximal Assistance-helper does MORE THAN HALF the effort. [place] lifts or holds trunk or limbs and provides more than half the effort. 1-Yhnrhvbzo-hgvbbv does ALL the effort. Patient does none of the effort to complete the activity. Or, the assistance of 2 or more helpers is required for the patient to complete the activity. If activity was not attempted, code reason: 7-Patient Refused. 9-Not Applicable-not attempted and the patient did not perform the activity before the current illness, exacerbation or injury. 10-Not Attempted due to Environmental Limitations-(lack of equipment, weather restraints, etc.). 88-Not Attempted due to Medical Conditions or Safety Concerns. Roll Left to Right (QC): 1 (x 2 with patient able to perform max assist x 1 for 2 sets then fatigues) Sit to Lying (QC): 1 Sit to Stand (QC): 88 Chair/Plf-mp-Rlarh Xfer(QC): 1 Car Transfer (QC): 88 Gait Training Does the Patient Walk?: No and Walking Goal NOT indicated Walk 10 feet (QC): 88 Walk 50 ft with 2 Turns(QC): 88 Walk 150 ft (QC): 88 Walking 10ft/uneven surface-QC: 88 Wheelchair Training Does the Pt Use a Wheelchair?: Yes Distance: 100'x2 Wheel 50 ft with 2 turns (QC): 4 Wheel 150 ft (QC): 88 Type of Wheelchair: Manual Stair Training 1 Step (curb) (QC): 88 4 Steps (QC): 88 12 Steps (QC): 88 Balance Picking up an Object (QC): 88 ADL-Treatment Eating (QC): 5 Oral Hygiene (QC): 3 Shower/Bathe Self (QC): 1 Upper Body Dressing (QC): 3 Lower Body Dressing (QC): 1 On/Off Footwear (QC): 1 Toileting Hygiene (QC): 1 Toilet Transfer (QC): 1 Assessment/Plan Assessment and Plan Assess & Plan/Chief Complaint Assessment: 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 and subsequent neurological deficits Lumbar L4-L5 subarticular recess narrowing B/L Left-sided weakness Hepatic Hemangioma Systolic Heart Failure LFT elevation LBBB Previous hypotension Obesity CAD Dementia/cognitive impairment GERD PUD PVD Diabetic polyneuropathy Progressive weakness High risk of falling Gait disturbance Spasticity T2DM Constipation Edema HTN Paroxysmal A-fib Thrombocytopenia Urinary Retention Status post UTI (resolved) BAM on CPAP Plan: Aggressive PT, OT, and speech therapy Order basic lab work in the morning Review records, talk to his family members as they are more in tune with his medical condition then the patient himself Neurology follow up Consult Dr. Rubio for A. fib 02/11/2021: Supportive care Dr. Rubio consult Poor memory recall noted 02/12/2021: Incontinence care Aggressive therapy 02/13/2021: Incontinence care Aggressive therapy 02/14/2021: Attempt condom catheter due to incontinence Monitor for retention Dr. Welsh consult (1) Cervical spinal cord compression (2) Atrial fibrillation (3) Anticoagulation adequate with anticoagulant therapy (4) Urinary retention CARMELLA ESTRADA DO Feb 14, 2021 08:57
--- NOTE | 2021-02-14 11:00 | Physical Therapy Daily Note ---
PT Daily Note-Current Subjective Patient in bed pre tx, agrees to PT, has no complaints of pain at rest. Will be co-treating with OT due to poor patient mobility, strength, endurance, coordinate UE and LE during activity, safety and reduce risk of falls. Appearance Patient in bed post tx with nurse call, phone, tray, all needs met. Mental Status Patient Orientation: Person, Place, Situation Transfers SCALE: Activities may be completed with or without assistive devices. 8-Xpvemfsszg-gpzlxvd completes the activity by him/herself with no assistance from a helper. 5-Set-up or Clean-up Assistance-helper sets up or cleans up; patient completes activity. [place] assists only prior to or following the activity. 4-Supervision or Touching Assistance-helper provides verbal cues and/or touching/steadying and/or contact guard assistance as patient completes activity. Assistance may be provided throughout the activity or intermittently. 3-Partial/Moderate Assistance-helper does LESS THAN HALF the effort. Odon lif ts, holds or supports trunk or limbs, but provides less than half the effort. 2-Substantial/Maximal Assistance-helper does MORE THAN HALF the effort. [place] lifts or holds trunk or limbs and provides more than half the effort. 8-Mifkrgjxj-cndybx does ALL the effort. Patient does none of the effort to complete the activity. Or, the assistance of 2 or more helpers is required for the patient to complete the activity. If activity was not attempted, code reason: 7-Patient Refused. 9-Not Applicable-not attempted and the patient did not perform the activity before the current illness, exacerbation or injury. 10-Not Attempted due to Environmental Limitations-(lack of equipment, weather restraints, etc.). 88-Not Attempted due to Medical Conditions or Safety Concerns. Roll Left & Right (QC): 3 Chair/Mrh-tx-Nwucm Xfer(QC): 1 Patient has to roll (min assist each way) to check for a BM and then place ck sling. Patient is hoyered to shower chair and taken to shower room. Patient is showered and then ck back to bed, roll each way to get sling out and then again to place pads. Patient is dressed again after getting back to bed because his gown is wet. Treatments PT performed bed mobility, rolling, transfer, positioning and safety during activity, OT performed dressing, bathing, UE positioning and safety during activity. Assessment Current Status: Poor Progress slightly improved rolling PT Short Term Goals Short Term Goals Time Frame: Feb 17, 2021 Roll Left & Right: 3 Sit to lyin Lying to sitting on side of be: 3 Wheel 50ft w/2 turns: 4 Wheel 150 feet: 4 PT Shell Freezing Machine Operator Goals Fpc Goals PT Fpc Goals Time Frame: Mar 03, 2021 Roll Left & Right (QC): 4 Sit to Lying (QC): 4 Lying-Sitting on Side/Bed(QC): 4 Sit to Stand (QC): 88 Chair/Lqm-sq-Unkdv Xfer(QC): 88 Toilet Transfer (QC): 88 Car Transfer (QC): 88 Does the Patient Walk: No and Walking Goal NOT indicated Walk 10 feet (QC): 88 Walk 50ft with 2 Turns (QC): 88 Walk 150 ft (QC): 88 Walking 10ft on Uneven Surface: 88 1 Step (curb) (QC): 88 4 Steps (QC): 88 12 Steps (QC): 88 Picking up an Object (QC): 88 Wheel 50 feet with 2 turns (QC: 6 Wheel 150 feet: 6 PT Plan Problem List Problem List: Activity Tolerance, Functional Strength, Safety, Balance, Gait, Transfer, Bed Mobility, ROM Treatment/Plan Treatment Plan: Continue Plan of Care Treatment Plan: Bed Mobility, Education, Functional Activity Jorge, Functional Strength, Group Therapy, Gait, Safety, Therapeutic Exercise, Transfers Treatment Duration: Mar 03, 2021 Frequency: At least 5 of 7 days/Wk (IRF) Estimated Hrs Per Day: 1.5 hours per day Patient and/or Family Agrees t: Yes Safety Risks/Education Patient Education: Transfer Techniques, Correct Positioning, Safety Issues Teaching Recipient: Patient Teaching Methods: Demonstration, Discussion Response to Teaching: Reinforcement Needed Time/GCodes Time In: 1000 Time Out: 1100 Total Billed Treatment Time: 60 Total Billed Treatment 1 visit FA 60' co-treated for 60' TARA MCCOY PT Feb 14, 2021 11:00
--- NOTE | 2021-02-14 11:00 | Occupational Ther Daily Note ---
OT Current Status-Daily Note Subjective Pt denies any pain, agreeable to treatment. Appearance Pt left supine in bed, all needs within reach at end of session. ADL-Treatment Therapy Code Descriptions/Definitions Functional [place] Measure: 0=Not Assessed/NA 4=Minimal Assistance 1=Total Assistance 5=Supervision or Setup 2=Maximal Assistance 6=Modified [place] 3=Moderate Assistance 7=Complete IndependenceSCALE: Activities may be completed with or without assistive devices. 6-Rkzmtbszcl-mwdojbz completes the activity by him/herself with no assistance from a helper. 5-Set-up or Clean-up Assistance-helper sets up or cleans up; patient completes activity. [place] assists only prior to or following the activity. 4-Supervision or Touching Assistance-helper provides verbal cues and/or touching/steadying and/or contact guard assistance as patient completes activity. Assistance may be provided throughout the activity or intermittently. 3-Partial/Moderate Assistance-helper does LESS THAN HALF the effort. [place] lifts, holds or supports trunk or limbs, but provides less than half the effort. 2-Substantial/Maximal Assistance-helper does MORE THAN HALF the effort. [place] lifts or holds trunk or limbs and provides more than half the effort. 8-Klaftvuog-mgptow does ALL the effort. Patient does none of the effort to complete the activity. Or, the assistance of 2 or more helpers is required for the patient to complete the activity. If activity was not attempted, code reason: 7-Patient Refused. 9-Not Applicable-not attempted and the patient did not perform the activity before the current illness, exacerbation or injury. 10-Not Attempted due to Environmental Limitations-(lack of equipment, weather restraints, etc.). 88-Not Attempted due to Medical Conditions or Safety Concerns. Bathing Location: L Arm, R Arm, L Upper Leg, R Upper Leg, L Lower Leg (including foot), R Lower Leg (including foot), Chest, Abdomen, Buttocks, Perineal Area Shower/Bathe Self (QC): 3 Lower Body Dressing (QC): 1 On/Off Footwear: 1 Toileting Hygiene (QC): 1 Co-treat with PT due to poor patient mobility, strength, endurance, sitting balance, safety and high fall risk. Improved bed mobility; Min a to roll R and Left with min cues for sequencing. Buttocks cleaned in sidelying prior to transfer to shower w/c. Dep transfer by use of Coleen. Shower performed; 100% completed in sitting. Pt able to wash upper body, front guillermo area, and down to ankles without physical assist. Cues to initiate washing of lower body. He requires use of BUE's to lift RLE off floor in order for OT to wash. Unable to lift LLE due to severe weakness. Dep to lift and wash. Dep to don new brief at bed level. Dep to don jovon hose. Pt able to comb hair sitting upright in bed. Education OT Patient Education: Correct positioning, Energy conservation, Modified ADL techniques, Progress toward Goal/Update tx plan, Purpose of tx/functional activities, Rehab process, Safety issues, Transfer techniques, Use of adapted equipment, W/C management Teaching Recipient: Patient Teaching Methods: Demonstration, Discussion Response to Teaching: Verbalize Understanding, Return Demonstration OT Short Term Goals Short Term Goals Time Frame: Feb 24, 2021 Eatin Oral hygiene: 4 Toileting hygiene: 2 Shower/bathe self: 2 Upper body dressin Lower body dressin Putting on/taking off footwear: 3 OT Drill Press Operator For Metal Goals Drill Press Operator For Metal Goals Time Frame: Mar 04, 2021 Eating (QC): 6 Oral Hygiene (QC): 5 Toileting Hygiene (QC): 4 Shower/Bathe Self (QC): 3 Upper Body Dressing (QC): 4 Lower Body Dressing (QC): 3 On/Off Footwear (QC): 4 1=Demonstrate adherence to instructed precautions during ADL tasks. 2=Patient will verbalize/demonstrate understanding of assistive devices/modifications for ADL. 3=Patient will improve strength/tolerance for activity to enable patient to perform ADL's. OT Education/Plan Problem List/Assessment Assessment: Decreased Activ Tolerance, Decreased Safety Aware, Decreased UE Strength, Dependent Transfers, Impaired Bed Mobility, Impaired Cognition, Impaired I ADL's, Impaired Self-Care Skills, Restricted Funct UE ROM Discharge Recommendations Plan/Recommendations: Continue POC Target Placement Assisted living vs LTC Treatment Plan/Plan of Care Treatment,Training & Education: Yes Patient would benefit from OT for education, treatment and training to promote independence in ADL's, mobility, safety and/or upper extremity function for ADL's. Plan of Care: ADL Retraining, Functional Mobility, Group Exercise/Act as Ind, UE Funct Exercise/Act, W/C Management Training Treatment Duration: Mar 04, 2021 Frequency: At least 5 of 7 days/Wk (IRF) Estimated Hrs Per Day: 1.5 hours per day Agreement: Yes Rehab Potential: Guarded Time/GCodes Start Time: 10:00 Stop Time: 11:00 Total Time Billed (hr/min): 60 Billed Treatment Time 1 visit, ADL x3 (45 min) FA (15 min) Antonieta Angel OT Feb 14, 2021 11:00
--- NOTE | 2021-02-14 13:26 | Physical Therapy Daily Note ---
PT Daily Note-Current Subjective Patient in WC at bedside pre tx, agrees to PT, has no complaints of pain. Appearance Patient in WC at bedside post tx with nurse call, phone, tray, all needs met. Mental Status Patient Orientation: Person, Place, Situation Transfers SCALE: Activities may be completed with or without assistive devices. 8-Pcfgnfowrj-jaczqxc completes the activity by him/herself with no assistance from a helper. 5-Set-up or Clean-up Assistance-helper sets up or cleans up; patient completes activity. [place] assists only prior to or following the activity. 4-Supervision or Touching Assistance-helper provides verbal cues and/or touching/steadying and/or contact guard assistance as patient completes activity. Assistance may be provided throughout the activity or intermittently. 3-Partial/Moderate Assistance-helper does LESS THAN HALF the effort. [place] lifts, holds or supports trunk or limbs, but provides less than half the effort. 2-Substantial/Maximal Assistance-helper does MORE THAN HALF the effort. [place] lifts or holds trunk or limbs and provides more than half the effort. 8-Oscixafew-lyftpy does ALL the effort. Patient does none of the effort to complete the activity. Or, the assistance of 2 or more helpers is required for the patient to complete the activity. If activity was not attempted, code reason: 7-Patient Refused. 9-Not Applicable-not attempted and the patient did not perform the activity before the current illness, exacerbation or injury. 10-Not Attempted due to Environmental Limitations-(lack of equipment, weather restraints, etc.). 88-Not Attempted due to Medical Conditions or Safety Concerns. Exercises Seated Therapy Exercises: Ankle pumps (AAROM on the left side), Long arc quads (AAROM on the left side), Hip flexion (AAROM on the left side), Hip abd/add Seated Reps: 20 BLE ankle stretching Treatments BLE stretching/ROM Assessment Current Status: Poor Progress Patient needs many rest breaks, can only do a few reps at a time. PT Short Term Goals Short Term Goals Time Frame: Feb 17, 2021 Roll Left & Right: 3 Sit to lyin Lying to sitting on side of be: 3 Wheel 50ft w/2 turns: 4 Wheel 150 feet: 4 PT Heel Boom Operator Goals Fdc Goals PT Fdc Goals Time Frame: Mar 03, 2021 Roll Left & Right (QC): 4 Sit to Lying (QC): 4 Lying-Sitting on Side/Bed(QC): 4 Sit to Stand (QC): 88 Chair/Bfc-je-Sgbza Xfer(QC): 88 Toilet Transfer (QC): 88 Car Transfer (QC): 88 Does the Patient Walk: No and Walking Goal NOT indicated Walk 10 feet (QC): 88 Walk 50ft with 2 Turns (QC): 88 Walk 150 ft (QC): 88 Walking 10ft on Uneven Surface: 88 1 Step (curb) (QC): 88 4 Steps (QC): 88 12 Steps (QC): 88 Picking up an Object (QC): 88 Wheel 50 feet with 2 turns (QC: 6 Wheel 150 feet: 6 PT Plan Problem List Problem List: Activity Tolerance, Functional Strength, Safety, Balance, Gait, Transfer, Bed Mobility, ROM Treatment/Plan Treatment Plan: Continue Plan of Care Treatment Plan: Bed Mobility, Education, Functional Activity Jorge, Functional Strength, Group Therapy, Gait, Safety, Therapeutic Exercise, Transfers Treatment Duration: Mar 03, 2021 Frequency: At least 5 of 7 days/Wk (IRF) Estimated Hrs Per Day: 1.5 hours per day Patient and/or Family Agrees t: Yes Safety Risks/Education Patient Education: Correct Positioning, Safety Issues Teaching Recipient: Patient Teaching Methods: Demonstration, Discussion Response to Teaching: Reinforcement Needed Time/GCodes Time In: 1255 Time Out: 1325 Total Billed Treatment Time: 30 Total Billed Treatment 1 visit EX 30' TARA MCCOY PT Feb 14, 2021 13:26
--- NOTE | 2021-02-14 14:01 | Occupational Ther Daily Note ---
OT Current Status-Daily Note Subjective Pt agreeable to treatment, denies any pain. Appearance Pt left sitting in w/c, all needs within reach. ADL-Treatment Therapy Code Descriptions/Definitions Functional [place] Measure: 0=Not Assessed/NA 4=Minimal Assistance 1=Total Assistance 5=Supervision or Setup 2=Maximal Assistance 6=Modified [place] 3=Moderate Assistance 7=Complete IndependenceSCALE: Activities may be completed with or without assistive devices. 3-Kmcxemobbb-ckndgds completes the activity by him/herself with no assistance from a helper. 5-Set-up or Clean-up Assistance-helper sets up or cleans up; patient completes activity. [place] assists only prior to or following the activity. 4-Supervision or Touching Assistance-helper provides verbal cues and/or touching/steadying and/or contact guard assistance as patient completes activity. Assistance may be provided throughout the activity or intermittently. 3-Partial/Moderate Assistance-helper does LESS THAN HALF the effort. [place] lifts, holds or supports trunk or limbs, but provides less than half the effort. 2-Substantial/Maximal Assistance-helper does MORE THAN HALF the effort. [place] lifts or holds trunk or limbs and provides more than half the effort. 9-Vprpucync-qesjyi does ALL the effort. Patient does none of the effort to complete the activity. Or, the assistance of 2 or more helpers is required for the patient to complete the activity. If activity was not attempted, code reason: 7-Patient Refused. 9-Not Applicable-not attempted and the patient did not perform the activity before the current illness, exacerbation or injury. 10-Not Attempted due to Environmental Limitations-(lack of equipment, weather restraints, etc.). 88-Not Attempted due to Medical Conditions or Safety Concerns. Other Treatment Pt participated in theraband exercises with yellow band. Intermittent AAROM needed with LUE secondary to weakness. Improved tolerance to ~7-8 reps before taking a break and finishing remaining reps. Able to tolerate 12-15 reps with RUE exercises. Min cues for control and form throughout. 25-30 seconds holds and 5x isometric exercises for strengthening. Education OT Patient Education: Correct positioning, Exercise program Teaching Recipient: Patient Teaching Methods: Demonstration, Discussion Response to Teaching: Return Demonstration, Reinforcement Needed OT Short Term Goals Short Term Goals Time Frame: Feb 24, 2021 Eatin Oral hygiene: 4 Toileting hygiene: 2 Shower/bathe self: 2 Upper body dressin Lower body dressin Putting on/taking off footwear: 3 OT Radiation Oncology Manager Goals Snf Goals Time Frame: Mar 04, 2021 Eating (QC): 6 Oral Hygiene (QC): 5 Toileting Hygiene (QC): 4 Shower/Bathe Self (QC): 3 Upper Body Dressing (QC): 4 Lower Body Dressing (QC): 3 On/Off Footwear (QC): 4 1=Demonstrate adherence to instructed precautions during ADL tasks. 2=Patient will verbalize/demonstrate understanding of assistive devices/modifications for ADL. 3=Patient will improve strength/tolerance for activity to enable patient to perform ADL's. OT Education/Plan Problem List/Assessment Assessment: Decreased Activ Tolerance, Decreased Safety Aware, Decreased UE Strength, Dependent Transfers, Impaired Funct Balance, Impaired I ADL's, Impaired Self-Care Skills, Restricted Funct UE ROM Discharge Recommendations Plan/Recommendations: Continue POC Treatment Plan/Plan of Care Treatment,Training & Education: Yes Patient would benefit from OT for education, treatment and training to promote independence in ADL's, mobility, safety and/or upper extremity function for ADL's. Plan of Care: ADL Retraining, Functional Mobility, Group Exercise/Act as Ind, UE Funct Exercise/Act, W/C Management Training Treatment Duration: Mar 04, 2021 Frequency: At least 5 of 7 days/Wk (IRF) Estimated Hrs Per Day: 1.5 hours per day Agreement: Yes Rehab Potential: Guarded Time/GCodes Start Time: 13:25 Stop Time: 13:55 Total Time Billed (hr/min): 30 Billed Treatment Time 1 visit, EX Antonieta John OT Feb 14, 2021 14:01
[2021-02-14] MEDS ORDERED: SIMV40TA25 PO (15:05)
[2021-02-14] MEDS ORDERED: LEVO100T7 PO (15:05)
[2021-02-14] MEDS ORDERED: FURO20TA4 PO (15:05)
[2021-02-14] MEDS ORDERED: ALOG12.52 PO (15:05)
[2021-02-14] MEDS ORDERED: FAMO40TA6 PO (15:05)
[2021-02-14] MEDS: TAMSULOSIN 0.4 MG (FLOMAX) CAP PO SCH (18:06)
[2021-02-14] MEDS: DIGOXIN 0.125 MG (LANOXIN) TAB PO SCH (18:06)
[2021-02-14 19:54] VITALS: BP 136/85
[2021-02-14] MEDS: BETHANECHOL 10 MG (URECHOLINE) TAB PO SCH (21:10)
[2021-02-15] MEDS: inSUlin ASPART (NovoLOG) 1 UNIT/0.01 ML (CHARGE PER UNIT) SC SCH ×4 (05:47→21:44)
[2021-02-15] MEDS: MULTIVIT W/MINERALS TAB (THERAGRAN M) PO SCH (05:49)
[2021-02-15] MEDS: BETHANECHOL 10 MG (URECHOLINE) TAB PO SCH ×4 (05:49→21:43)
[2021-02-15 08:00] VITALS: BP 125/71
--- NOTE | 2021-02-15 09:15 | PM&R Progress Note ---
Subjective HPI/CC On Admission Date Seen by Provider: Feb 15, 2021 Time Seen by Provider: 11:15 Subjective/Events-last exam 02/15/2021: Pt doing a little better Frausto required and Dr. Welsh consulted Spot checks of oxygen without CPAP during the night are okay Still a Coleen-lift 02/14/2021: Pt doing well Condom catheter will be attempted Platelet count 108 Wound looks good BP and blood sugar good No pain Bowels are moving 02/13/2021: Patient doing well Has no needs Bowels are moving well No issues Sugars are reviewed 02/12/2021: Patient doing well Incontinent of bowel and bladder a lot Able to move himself and turn himself in bed Check meds and labs Cognitive deficit could preclude independent living 02/11/2021: Patient doing pretty well Dr. Rubio will be consulted Noncompliant with CPAP machine Oxygen was good last night at 90% Wound care consulted Dr. Edenilson Prakash good Bowels are a bit loose and he does have fecal incontinence Review of Systems General: Fatigue, Malaise Objective Exam Vital Signs Vital Signs Date Time Temp Pulse Resp B/P (MAP) Pulse Ox O2 Delivery O2 Flow Rate FiO2 02/15/21 21:00 Room Air 02/15/21 20:00 36.3 68 20 128/63 (84) 95 Capillary Refill : General Appearance: No Apparent Distress, WD/WN, Chronically ill HEENT: PERRL/EOMI, Normal ENT Inspection, Pharynx Normal Neck: Full Range of Motion, Normal Inspection, Non Tender, Supple, Carotid Bruit Respiratory: Chest Non Tender, Lungs Clear, Normal Breath Sounds, No Accessory Muscle Use, No Respiratory Distress Cardiovascular: Regular Rate, Rhythm, No Edema, No Gallop, No JVD, No Murmur, Normal Peripheral Pulses Gastrointestinal: Normal Bowel Sounds, No Organomegaly, No Pulsatile Mass, Non Tender, Soft Back: Normal Inspection, No CVA Tenderness, No Vertebral Tenderness Extremity: Normal Capillary Refill, Normal Inspection, Normal Range of Motion, Non Tender, No Calf Tenderness, No Pedal Edema Neurologic/Psychiatric: Alert, Oriented x3, Normal Mood/Affect, cathode ray tube salvage processor II-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 FIM Transfers Therapy Code Descriptions/Definitions Functional [place] Measure: 0=Not Assessed/NA 4=Minimal Assistance 1=Total Assistance 5=Supervision or Setup 2=Maximal Assistance 6=Modified [place] 3=Moderate Assistance 7=Complete IndependenceSCALE: Activities may be completed with or without assistive devices. 5-Vozniuzupd-ckcsvwj completes the activity by him/herself with no assistance from a helper. 5-Set-up or Clean-up Assistance-helper sets up or cleans up; patient completes activity. [place] assists only prior to or following the activity. 4-Supervision or Touching Assistance-helper provides verbal cues and/or touching/steadying and/or contact guard assistance as patient completes activity. Assistance may be provided throughout the activity or intermittently. 3-Partial/Moderate Assistance-helper does LESS THAN HALF the effort. [place] lifts, holds or supports trunk or limbs, but provides less than half the effort. 2-Substantial/Maximal Assistance-helper does MORE THAN HALF the effort. [place] lifts or holds trunk or limbs and provides more than half the effort. 5-Ronzcmcev-ffknmj does ALL the effort. Patient does none of the effort to comp lete the activity. Or, the assistance of 2 or more helpers is required for the patient to complete the activity. If activity was not attempted, code reason: 7-Patient Refused. 9-Not Applicable-not attempted and the patient did not perform the activity before the current illness, exacerbation or injury. 10-Not Attempted due to Environmental Limitations-(lack of equipment, weather restraints, etc.). 88-Not Attempted due to Medical Conditions or Safety Concerns. Roll Left to Right (QC): 3 Sit to Lying (QC): 1 Sit to Stand (QC): 88 Chair/Pjt-nt-Yyrvv Xfer(QC): 1 Car Transfer (QC): 88 Gait Training Does the Patient Walk?: No and Walking Goal NOT indicated Walk 10 feet (QC): 88 Walk 50 ft with 2 Turns(QC): 88 Walk 150 ft (QC): 88 Walking 10ft/uneven surface-QC: 88 Wheelchair Training Does the Pt Use a Wheelchair?: Yes Distance: 100'x2 Wheel 50 ft with 2 turns (QC): 4 Wheel 150 ft (QC): 88 Type of Wheelchair: Manual Stair Training 1 Step (curb) (QC): 88 4 Steps (QC): 88 12 Steps (QC): 88 Balance Picking up an Object (QC): 88 ADL-Treatment Eating (QC): 5 Oral Hygiene (QC): 3 Bathing Location: L Arm, R Arm, L Upper Leg, R Upper Leg, L Lower Leg (including foot), R Lower Leg (including foot), Chest, Abdomen, Buttocks, Perineal Area Shower/Bathe Self (QC): 3 Upper Body Dressing (QC): 3 Lower Body Dressing (QC): 1 On/Off Footwear (QC): 1 Toileting Hygiene (QC): 1 Toilet Transfer (QC): 1 Assessment/Plan Assessment and Plan Assess & Plan/Chief Complaint Assessment: 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 and subsequent neurological deficits Lumbar L4-L5 subarticular recess narrowing B/L Left-sided weakness Hepatic Hemangioma Systolic Heart Failure LFT elevation LBBB Previous hypotension Obesity CAD Dementia/cognitive impairment GERD PUD PVD Diabetic polyneuropathy Progressive weakness High risk of falling Gait disturbance Spasticity T2DM Constipation Edema HTN Paroxysmal A-fib Thrombocytopenia Urinary Retention Status post UTI (resolved) BAM on CPAP Plan: Aggressive PT, OT, and speech therapy Order basic lab work in the morning Review records, talk to his family members as they are more in tune with his medical condition then the patient himself Neurology follow up Consult Dr. Rubio for A. fib 02/11/2021: Supportive care Dr. Rubio consult Poor memory recall noted 02/12/2021: Incontinence care Aggressive therapy 02/13/2021: Incontinence care Aggressive therapy 02/14/2021: Attempt condom catheter due to incontinence Monitor for retention Dr. Welsh consult 02/15/2021: Appreciate urology management Aggressive therapy Send records to [facility] (1) Cervical spinal cord compression (2) Atrial fibrillation (3) Anticoagulation adequate with anticoagulant therapy (4) Urinary retention CARMELLA ESTRADA DO Feb 15, 2021 09:15
[2021-02-15] MEDS: OMEGA 3 (FISH OIL) 1000 MG CAP PO SCH ×2 (10:07→21:43)
[2021-02-15] MEDS: lisINopril 10 MG (PRINIVIL) TABLET PO SCH (10:08)
[2021-02-15] MEDS: MAGNESIUM OXIDE (MAG-OX)400 MG TAB PO SCH (10:08)
[2021-02-15] MEDS: APIXABAN 5 MG (ELIQUIS) TABLET PO SCH ×2 (10:08→21:43)
[2021-02-15] MEDS: CALCIUM CARB + VIT D 600 MG (CALCARB + D) TAB PO SCH (10:08)
[2021-02-15] MEDS: meTOprolol SUCCINATE 100 MG (TOPROL XL) TAB PO SCH (10:09)
--- NOTE | 2021-02-15 11:11 | Occupational Ther Daily Note ---
OT Current Status-Daily Note Subjective Pt denies pain, agreeable to treatment. Appearance Pt left sitting in w/c, all needs within reach at OT departure. Mental Status/Objective Attachments: Frausto Catheter ADL-Treatment Therapy Code Descriptions/Definitions Functional [place] Measure: 0=Not Assessed/NA 4=Minimal Assistance 1=Total Assistance 5=Supervision or Setup 2=Maximal Assistance 6=Modified [place] 3=Moderate Assistance 7=Complete IndependenceSCALE: Activities may be completed with or without assistive devices. 4-Ykzswqtkkf-pugmvib completes the activity by him/herself with no assistance from a helper. 5-Set-up or Clean-up Assistance-helper sets up or cleans up; patient completes activity. [place] assists only prior to or following the activity. 4-Supervision or Touching Assistance-helper provides verbal cues and/or touching/steadying and/or contact guard assistance as patient completes activity. Assistance may be provided throughout the activity or intermittently. 3-Partial/Moderate Assistance-helper does LESS THAN HALF the effort. [place] lifts, holds or supports trunk or limbs, but provides less than half the effort. 2-Substantial/Maximal Assistance-helper does MORE THAN HALF the effort. [place] lifts or holds trunk or limbs and provides more than half the effort. 6-Igdlxmuzy-mzqgde does ALL the effort. Patient does none of the effort to complete the activity. Or, the assistance of 2 or more helpers is required for the patient to complete the activity. If activity was not attempted, code reason: 7-Patient Refused. 9-Not Applicable-not attempted and the patient did not perform the activity before the current illness, exacerbation or injury. 10-Not Attempted due to Environmental Limitations-(lack of equipment, weather restraints, etc.). 88-Not Attempted due to Medical Conditions or Safety Concerns. Eating (QC): 4 Oral Hygiene (QC): 4 Toileting Hygiene (QC): 1 Toilet Transfer (QC): 1 Pt performed grooming tasks sitting upright in w/c. Improved sitting balance noted. Pt encouraged to not rest torso on back of w/c and perform task in unsupported sitting. One rest break needed before completion of task, but great improvement seen from last session where pt required 1-2 UE's to bring self forward over sink. Other Treatment Co-treat with PT for part of treatment secondary to poor patient mobility, strength, endurance, sitting balance, safety and high fall risk. CGA-min a to roll R/L for placement of ck sling and for guillermo care. Pt incontinent of BM. Dep transfer to w/c by use of ck. Focus of session on improving core/back strength needed for sitting balance during functional tasks. Pt participated in card game incorporating dexterity skills, overall coordination, core strength, sitting balance, endurance/activity tolerance and problem solving. Initially pt needing mod verbal cues to maintain upright posture, yet towards end of session, pt able to self correct when beginning to sink into kyphotic posture. Great improvement seen in sitting tolerance/balance with pt able to maintain position for ~6-8 min without UE support. Pt does require cues for posture throughout activity. Slight difficulty noted with FM coordination on LUE, but no physical assist required. Education OT Patient Education: Correct positioning, Disease process, Modified ADL techniques, Progress toward Goal/Update tx plan, Purpose of tx/functional activities, Rehab process, Safety issues, Transfer techniques, W/C management Teaching Recipient: Patient Teaching Methods: Demonstration, Discussion Response to Teaching: Verbalize Understanding, Return Demonstration, Reinforcement Needed OT Short Term Goals Short Term Goals Time Frame: Feb 24, 2021 Eatin Oral hygiene: 4 Toileting hygiene: 2 Shower/bathe self: 2 Upper body dressin Lower body dressin Putting on/taking off footwear: 3 OT Genetic Physician Goals Genetic Physician Goals Time Frame: Mar 04, 2021 Eating (QC): 6 Oral Hygiene (QC): 5 Toileting Hygiene (QC): 4 Shower/Bathe Self (QC): 3 Upper Body Dressing (QC): 4 Lower Body Dressing (QC): 3 On/Off Footwear (QC): 4 1=Demonstrate adherence to instructed precautions during ADL tasks. 2=Patient will verbalize/demonstrate understanding of assistive devices/modifications for ADL. 3=Patient will improve strength/tolerance for activity to enable patient to perform ADL's. OT Education/Plan Problem List/Assessment Assessment: Decreased Activ Tolerance, Decreased Safety Aware, Decreased UE Strength, Dependent Transfers, Impaired Bed Mobility, Impaired Cognition, Impaired Coordination, Impaired Funct Balance, Impaired I ADL's, Impaired Self- Care Skills, Restricted Funct UE ROM Discharge Recommendations Plan/Recommendations: Continue POC Treatment Plan/Plan of Care Treatment,Training & Education: Yes Patient would benefit from OT for education, treatment and training to promote independence in ADL's, mobility, safety and/or upper extremity function for ADL's. Plan of Care: ADL Retraining, Functional Mobility, Group Exercise/Act as Ind, UE Funct Exercise/Act, W/C Management Training Treatment Duration: Mar 04, 2021 Frequency: At least 5 of 7 days/Wk (IRF) Estimated Hrs Per Day: 1.5 hours per day Agreement: Yes Rehab Potential: Guarded Time/GCodes Start Time: 09:40 Stop Time: 10:40 Total Time Billed (hr/min): 60 Billed Treatment Time 1 Visit, ADL (15 min) FA x3 (45) Co-treat with PT from [id number], OT seen from [id number] and from [id number] Antonieta Angel OT Feb 15, 2021 11:11
--- NOTE | 2021-02-15 11:14 | Physical Therapy Daily Note ---
PT Daily Note-Current Subjective Patient in bed pre tx, agrees to PT, has no complaints of pain. Will be co- treating with OT due to poor patient mobility, strength, endurance, coordinate UE and LE during activity, safety and reduce risk of falls. Appearance Patient in therapy gym post tx, will continue with OT for a bit. Mental Status Patient Orientation: Person, Place, Situation Attachments: Frausto Catheter Transfers SCALE: Activities may be completed with or without assistive devices. 8-Acupnjieco-nvplimv completes the activity by him/herself with no assistance from a helper. 5-Set-up or Clean-up Assistance-helper sets up or cleans up; patient completes activity. [place] assists only prior to or following the activity. 4-Supervision or Touching Assistance-helper provides verbal cues and/or touching/steadying and/or contact guard assistance as patient completes activity. Assistance may be provided throughout the activity or intermittently. 3-Partial/Moderate Assistance-helper does LESS THAN HALF the effort. [place] lifts, holds or supports trunk or limbs, but provides less than half the effort. 2-Substantial/Maximal Assistance-helper does MORE THAN HALF the effort. [place] lifts or holds trunk or limbs and provides more than half the effort. 0-Halgnqawp-vepiah does ALL the effort. Patient does none of the effort to complete the activity. Or, the assistance of 2 or more helpers is required for the patient to complete the activity. If activity was not attempted, code reason: 7-Patient Refused. 9-Not Applicable-not attempted and the patient did not perform the activity before the current illness, exacerbation or injury. 10-Not Attempted due to Environmental Limitations-(lack of equipment, weather restraints, etc.). 88-Not Attempted due to Medical Conditions or Safety Concerns. Roll Left & Right (QC): 3 Chair/Rgl-wu-Dgyaf Xfer(QC): 1 Patient has to roll from side to side a couple of times with min assist for ck sling placement and pad placement, he has a little bit of BM to clean up. Then he is hoyered to WC. Wheelchair Training Does the Pt Use a Wheelchair?: Yes Wheel 50 ft with 2 turns (QC): 3 Type of Wheelchair: Manual 100', patient is able to propel straight with SBA using both arms but needs min assist with going through doorways Exercises Patient performed seated UE activity without trunk support to work on sitting balance and trunk strengthening Treatments PT performed rolling, transfer, WC mobility, trunk strengthening and sitting balance, OT performed UE activity, UE positioning and safety during activity, assisted with transfer Assessment Current Status: Poor Progress No change in mobility but sitting balance seems a little improved PT Short Term Goals Short Term Goals Time Frame: Feb 17, 2021 Roll Left & Right: 3 Sit to lyin Lying to sitting on side of be: 3 Wheel 50ft w/2 turns: 4 Wheel 150 feet: 4 PT Usp Goals Usp Goals PT Money Room Teller Goals Time Frame: Mar 03, 2021 Roll Left & Right (QC): 4 Sit to Lying (QC): 4 Lying-Sitting on Side/Bed(QC): 4 Sit to Stand (QC): 88 Chair/Rop-vi-Wjkiz Xfer(QC): 88 Toilet Transfer (QC): 88 Car Transfer (QC): 88 Does the Patient Walk: No and Walking Goal NOT indicated Walk 10 feet (QC): 88 Walk 50ft with 2 Turns (QC): 88 Walk 150 ft (QC): 88 Walking 10ft on Uneven Surface: 88 1 Step (curb) (QC): 88 4 Steps (QC): 88 12 Steps (QC): 88 Picking up an Object (QC): 88 Wheel 50 feet with 2 turns (QC: 6 Wheel 150 feet: 6 PT Plan Problem List Problem List: Activity Tolerance, Functional Strength, Safety, Balance, Gait, Transfer, Bed Mobility, ROM Treatment/Plan Treatment Plan: Continue Plan of Care Treatment Plan: Bed Mobility, Education, Functional Activity Jorge, Functional Strength, Group Therapy, Gait, Safety, Therapeutic Exercise, Transfers Treatment Duration: Mar 03, 2021 Frequency: At least 5 of 7 days/Wk (IRF) Estimated Hrs Per Day: 1.5 hours per day Patient and/or Family Agrees t: Yes Safety Risks/Education Patient Education: Transfer Techniques, Correct Positioning, W/C Management, Safety Issues Teaching Recipient: Patient Teaching Methods: Demonstration, Discussion Response to Teaching: Reinforcement Needed Time/GCodes Time In: 0945 Time Out: 1030 Total Billed Treatment Time: 45 Total Billed Treatment 1 visit FA 15' EX 30' TARA MCCOY PT Feb 15, 2021 11:14
[2021-02-15] MEDS: DOCUSATE SODIUM 100 MG (COLACE) CAP PO SCH ×2 (11:22→21:43)
[2021-02-15] MEDS: SENNA W/DOCUSATE (SENOKOT S) TABLET PO SCH ×2 (11:23→21:43)
[2021-02-15] MEDS: polyethylene glycoL POWDER 17 GM (MIRALAX) PACK PO SCH ×2 (11:23→21:45)
--- NOTE | 2021-02-15 11:24 | Progress Note - Cardiology ---
Cardiology SOAP Progress Note Subjective: Sitting up in chair at the bedside States he feels good Continues to have left sided weakness which he feels is not improving Objective: I&O/Vital Signs 02/17/21 02/17/21 07:50 09:01 Temp 36.3 Pulse 76 Resp 18 B/P (MAP) 136/65 (88) Pulse Ox 94 O2 Delivery Room Air Room Air 02/17/21 00:00 Intake Total 325 ml Output Total 650 ml Balance -325 ml Constitutional: AAO x 3, well-developed, well-nourished Respiratory: No accessory muscle use, No respiratory distress; chest expansion is symmetric, chest is bilaterally symmetric, other (prolonged exp phase) Cardiovascular: irregularly irregular; No JVD; S1 and S2 Gastrointestional: No tender; soft, round, audible bowel sounds Extremities: other (mild bilat LE swelling) Neurologic/Psychiatric: other (LUE and LLE 4/5) Skin: No rash on exposed areas, No ulcerations on exposed areas Results/Procedures: Labs Laboratory Tests 02/16/21 11:49: Glucometer 145H 02/16/21 16:10: Glucometer 114H 02/16/21 20:44: Glucometer 148H 02/17/21 05:20: Glucometer 123H A/P: Assessment: Cervical myelopathy with LUE and LLE weakness - management per medical services Chronic a-fib - OAC with Eliquis HTN - controlled HLD - statin tx Cardiomyopathy - undetermined length of time - echocardiogram from 02-04-21 at [facility] by Dr. Michaels showed LVEF 25%. Mod pulmonary HTN BAM - CPAP tx COPD DM 2 H/O TURP Plan: Continue OAC with Eliquis Cardiomyopathy of undetermined source or length of time seen on echo of 02-04-21 at [facility] Request records from Dr. Kruger at [facility] Continue current medication regimen Monitor lab from time to time JULIETTE KENNY Feb 15, 2021 11:24
--- NOTE | 2021-02-15 14:09 | CONSULTATION REPORT ---
DATE OF SERVICE: 02/15/2021 ATTENDING PHYSICIAN: Dr. Dumont. SUMMARY: After reviewing the patient's record, H and P, and interviewing him, this is a 80-year-old white man admitted to the inpatient rehabilitation unit with a history of residual left sided weakness from a cervical spine compression at [facility] as well as chronic atrial fibrillation. On questioning, the patient apparently had some problem with urination in the past and about a week ago, had some kind of prostate surgery at [facility], which sounded like TURP; however, he continued to have problems mostly with decreased stream and emptying as well as some incontinence. He does have history of insulin-dependent diabetes, congestive heart failure, atrial fibrillation, and atherosclerotic heart disease. MEDICATIONS: He is on Eliquis, digoxin, insulin, metoprolol and vitamins as well as a supplement. ALLERGIES: He has no known drug allergies. He called me because he had some urinary retention and was uncomfortable. I have ordered a Frausto catheter, which met some resistance, but was able to go to the bladder without problem with recovery of 800 mL of clear urine. We left it indwelling, started the patient on Flomax 0.4 mg daily as well as Urecholine 10 mg q.i.d. initiated bedtime. He tolerated it well so far. Physical exam was deferred at the time of cystoscopy. IMPRESSION: 1. BPH and neurogenic bladder with retention post TURP with problem with retention and incontinence. 2. Medical illnesses per history. PLAN: Keep the patient at least three days on the medicines. Probably, on Sunday morning, we will do a flexible bedside local cystoscopy. The plan was fully explained to the patient as well as the procedure and all of his questions were answered. Job ID: [id number] DocumentID: [id number] Dictated Date: 02/15/2021 11:10:27 Land Measurer Date: 02/15/2021 14:07:54 Dictated By: YUAN NICHOLSON MD
--- NOTE | 2021-02-15 15:01 | Therapy Group Daily Note ---
Therapy Daily Group Note Patient Education Topic Other List Below (memory, ARU description/expectations) Exercises LE Seated Exercise, UE Exercise Session Ratio (pt:therapist): 4:1 Goal of Session: Education on ARU Expectations, Memory Strategies, UE/LE Strengthing Goal Met for this Session: Yes Pt Benefit of Group: Contributions to Others, F/U Use of Strategies @Home, Increased Functional Safety, Increased Functional Strength, Improved Cognition, Recognition of Peers, Socialization Other/Notes Pt transported via w/c to [facility] for OT/PT group. Group consisted of introductions (name, place living, favorite holiday), socialization, B UE/LE seated exercises, memory activity and education on memory strategies. Pt introduced self appropriately and actively listened to peers. Pt participated in group discussions and contributed to educational topic verbally/gestures. Pt acknowledge understanding of educational topics by giving personal strategies used. Pt able to complete memory activity matching game with 100% accuracy. After group, pt lying in bed with call light/phone in reach. All needs met in room. Start Time: 13:30 Stop Time: 14:50 Total Billed Treatment Time: 80 Total Billed Treatment 1-GRP BALTAZAR CÁRDENAS Feb 15, 2021 15:01
--- NOTE | 2021-02-15 17:07 | Progress Note - Cardiology ---
Cardiology SOAP Progress Note Subjective: No cp or palp or syncope No shortness of breath rest Some gen malaise and weakness No n/v/d Objective: I&O/Vital Signs 02/15/21 08:00 Temp 36.4 Pulse 72 Resp 14 B/P (MAP) 125/71 (89) Pulse Ox 94 O2 Delivery Room Air Constitutional: AAO x 3, well-developed, well-nourished Respiratory: No accessory muscle use, No respiratory distress; chest expansion is symmetric, chest is bilaterally symmetric, other (prolonged exp phase) Cardiovascular: irregularly irregular; No JVD; S1 and S2 Gastrointestional: No tender; soft, round, audible bowel sounds Extremities: other (mild bilat LE swelling) Neurologic/Psychiatric: other (LUE and LLE 4/5) Skin: No rash on exposed areas, No ulcerations on exposed areas Results/Procedures: Labs Laboratory Tests 02/14/21 21:09: Glucometer 139H 02/15/21 05:41: Glucometer 139H 02/15/21 11:34: Glucometer 164H Laboratory Tests 02/14/21 05:50 A/P: Assessment: Cervical myelopathy with LUE and LLE weakness - management per medical services Chronic a-fib - OAC with Eliquis HTN - controlled HLD - statin tx Cardiomyopathy - undetermined length of time - echocardiogram from 02-04-21 at [facility] by Dr. Michaels showed LVEF 25%. 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
[2021-02-15] MEDS: DIGOXIN 0.125 MG (LANOXIN) TAB PO SCH (17:14)
[2021-02-15] MEDS: TAMSULOSIN 0.4 MG (FLOMAX) CAP PO SCH (17:14)
[2021-02-15 20:00] VITALS: BP 128/63
[2021-02-16] MEDS: inSUlin ASPART (NovoLOG) 1 UNIT/0.01 ML (CHARGE PER UNIT) SC SCH ×4 (06:01→21:01)
[2021-02-16] MEDS: BETHANECHOL 10 MG (URECHOLINE) TAB PO SCH ×4 (06:23→21:14)
[2021-02-16] MEDS: MULTIVIT W/MINERALS TAB (THERAGRAN M) PO SCH (06:23)
[2021-02-16 07:54] VITALS: BP 120/73
[2021-02-16] MEDS: MAGNESIUM OXIDE (MAG-OX)400 MG TAB PO SCH (07:54)
[2021-02-16] MEDS: OMEGA 3 (FISH OIL) 1000 MG CAP PO SCH ×2 (07:55→21:14)
[2021-02-16] MEDS: APIXABAN 5 MG (ELIQUIS) TABLET PO SCH ×2 (07:55→21:14)
[2021-02-16] MEDS: lisINopril 10 MG (PRINIVIL) TABLET PO SCH (07:55)
[2021-02-16] MEDS: CALCIUM CARB + VIT D 600 MG (CALCARB + D) TAB PO SCH (07:55)
[2021-02-16] MEDS: meTOprolol SUCCINATE 100 MG (TOPROL XL) TAB PO SCH (07:56)
--- NOTE | 2021-02-16 08:49 | Progress Note - Urology ---
Progress Note-Urology Progress Notes/Assess & Plan Progress/Assessment & Plan PLAN CYSTOCOPY ON SUNDAY THEN TOV Final Diagnosis RETENTION YUAN NICHOLSON MD Feb 16, 2021 08:49
[2021-02-16] MEDS: polyethylene glycoL POWDER 17 GM (MIRALAX) PACK PO SCH ×2 (09:54→21:16)
[2021-02-16] MEDS: SENNA W/DOCUSATE (SENOKOT S) TABLET PO SCH ×2 (09:54→21:16)
[2021-02-16] MEDS: DOCUSATE SODIUM 100 MG (COLACE) CAP PO SCH ×2 (09:54→21:16)
--- NOTE | 2021-02-16 10:59 | Physical Therapy Daily Note ---
PT Daily Note-Current Subjective Patient in bed pre tx, agrees to PT, has no complaints of pain. Will be co- treating with OT due to poor patient mobility, strength, endurance, poor trunk strength and balance, coordinate UE and LE with activity, safety and reduce risk of falls. Appearance Patient in bed post tx with nurse call, phone, tray, all needs met. Mental Status Patient Orientation: Person, Place, Situation Transfers SCALE: Activities may be completed with or without assistive devices. 2-Vakuvrhqqg-qtmsldw completes the activity by him/herself with no assistance from a helper. 5-Set-up or Clean-up Assistance-helper sets up or cleans up; patient completes activity. [place] assists only prior to or following the activity. 4-Supervision or Touching Assistance-helper provides verbal cues and/or touching/steadying and/or contact guard assistance as patient completes activity. Assistance may be provided throughout the activity or intermittently. 3-Partial/Moderate Assistance-helper does LESS THAN HALF the effort. [place] lifts, holds or supports trunk or limbs, but provides less than half the effort. 2-Substantial/Maximal Assistance-helper does MORE THAN HALF the effort. [place] lifts or holds trunk or limbs and provides more than half the effort. 6-Arudidpgd-qqylfz does ALL the effort. Patient does none of the effort to complete the activity. Or, the assistance of 2 or more helpers is required for the patient to complete the activity. If activity was not attempted, code reason: 7-Patient Refused. 9-Not Applicable-not attempted and the patient did not perform the activity before the current illness, exacerbation or injury. 10-Not Attempted due to Environmental Limitations-(lack of equipment, weather restraints, etc.). 88-Not Attempted due to Medical Conditions or Safety Concerns. Roll Left & Right (QC): 3 Sit to Lying (QC): 3 Lying to Sitting/Side of Bed(Q: 3 Sit to Stand (QC): 1 Chair/Foc-bu-Fkpck Xfer(QC): 1 Patient was able to perform supine <-> sit with mod assist, needs help with both legs getting into bed and assist with left leg and trunk when sitting up. Patient initially needs cleaned from a small BM and the same after getting back into bed at the end of tx. Attempted to use a sit to stand machine again with better placement of sling to transfer to . The transfer was achieved but it really isn't going to be a good option for transfers. The sling just slides up too much because of his body shape and goes right up beneath his arms. Attempted to stand using a standing frame and again the sling slid up to where he couldn't stand completely. He was still able to stand but pretty slumped and flexed at the hips. He was able to get some good weight bearing through his feet and stretch his ankles. Wheelchair Training Does the Pt Use a Wheelchair?: Yes Wheel 50 ft with 2 turns (QC): 4 Type of Wheelchair: Manual 100'x2 Treatments PT performed bed mobility and transfers, WC mobility, standing frame, OT performed UE positioning and safety during activity. Assessment Current Status: Poor Progress ck transfer is still the best option for transfers PT Short Term Goals Short Term Goals Time Frame: Feb 17, 2021 Roll Left & Right: 3 Sit to lyin Lying to sitting on side of be: 3 Wheel 50ft w/2 turns: 4 Wheel 150 feet: 4 PT Wound Treatment Rn Goals Detention Goals PT Detention Goals Time Frame: Mar 03, 2021 Roll Left & Right (QC): 4 Sit to Lying (QC): 4 Lying-Sitting on Side/Bed(QC): 4 Sit to Stand (QC): 88 Chair/Idp-uh-Ohugz Xfer(QC): 88 Toilet Transfer (QC): 88 Car Transfer (QC): 88 Does the Patient Walk: No and Walking Goal NOT indicated Walk 10 feet (QC): 88 Walk 50ft with 2 Turns (QC): 88 Walk 150 ft (QC): 88 Walking 10ft on Uneven Surface: 88 1 Step (curb) (QC): 88 4 Steps (QC): 88 12 Steps (QC): 88 Picking up an Object (QC): 88 Wheel 50 feet with 2 turns (QC: 6 Wheel 150 feet: 6 PT Plan Problem List Problem List: Activity Tolerance, Functional Strength, Safety, Balance, Gait, Transfer, Bed Mobility, ROM Treatment/Plan Treatment Plan: Continue Plan of Care Treatment Plan: Bed Mobility, Education, Functional Activity Jorge, Functional Strength, Group Therapy, Gait, Safety, Therapeutic Exercise, Transfers Treatment Duration: Mar 03, 2021 Frequency: At least 5 of 7 days/Wk (IRF) Estimated Hrs Per Day: 1.5 hours per day Patient and/or Family Agrees t: Yes Safety Risks/Education Patient Education: Transfer Techniques, Correct Positioning, W/C Management, Safety Issues Teaching Recipient: Patient Teaching Methods: Demonstration, Discussion Response to Teaching: Reinforcement Needed Time/GCodes Time In: 0900 Time Out: 1000 Total Billed Treatment Time: 60 Total Billed Treatment 1 visit FA 60' co-treated for 60' TARA MCCOY PT Feb 16, 2021 10:59
--- NOTE | 2021-02-16 11:00 | Occupational Ther Daily Note ---
OT Current Status-Daily Note Subjective Pt reports discomfort while in mechanical lift (sit to stand and standing frame), but no significant pain identified. Appearance Pt left supine in bed, all needs within reach. ADL-Treatment Therapy Code Descriptions/Definitions Functional [place] Measure: 0=Not Assessed/NA 4=Minimal Assistance 1=Total Assistance 5=Supervision or Setup 2=Maximal Assistance 6=Modified [place] 3=Moderate Assistance 7=Complete IndependenceSCALE: Activities may be completed with or without assistive devices. 7-Svlcoybfjl-lccggfn completes the activity by him/herself with no assistance from a helper. 5-Set-up or Clean-up Assistance-helper sets up or cleans up; patient completes activity. [place] assists only prior to or following the activity. 4-Supervision or Touching Assistance-helper provides verbal cues and/or touching/steadying and/or contact guard assistance as patient completes activity. Assistance may be provided throughout the activity or intermittently. 3-Partial/Moderate Assistance-helper does LESS THAN HALF the effort. [place] lifts, holds or supports trunk or limbs, but provides less than half the effort. 2-Substantial/Maximal Assistance-helper does MORE THAN HALF the effort. [place] lifts or holds trunk or limbs and provides more than half the effort. 9-Ynqxaohhd-xkspyw does ALL the effort. Patient does none of the effort to complete the activity. Or, the assistance of 2 or more helpers is required for the patient to complete the activity. If activity was not attempted, code reason: 7-Patient Refused. 9-Not Applicable-not attempted and the patient did not perform the activity before the current illness, exacerbation or injury. 10-Not Attempted due to Environmental Limitations-(lack of equipment, weather restraints, etc.). 88-Not Attempted due to Medical Conditions or Safety Concerns. Oral Hygiene (QC): 5 On/Off Footwear: 3 Toileting Hygiene (QC): 1 Toilet Transfer (QC): 1 Co-treat with PT secondary to poor patient mobility, strength, endurance, sitting balance, safety and high fall risk. Pt incontinent of BM at both start and end of OT session. Able to roll R/L with CGA, min cues for sequencing. Dep for guillermo care in sideyling. With cues and Mod a x2, pt able to sit EOB this date. Fair+ sitting balance, requires initial UE support on bedrail. Balance improves post cues and mod a to scoot hips to EOB. Ot instructed pt on use of sock aid, mod a still needed post demonstration secondary to being unable to lift RLE off floor without assist. OT will attempt LB dressing in future sessions with clothing management performed at bed level. Dep transfer to w/c with use of sit<>stand lift. Once in w/c, pt participated in grooming tasks with set up assist only. Other Treatment Pt performed transfer to w/c with use of sit<>stand lift. This may not be safest option in future secondary to poor fit of sling with body habitus. Also attempted to stand using a standing frame and again patient only able to come to partial standing. Some weight bearing through LE's was achieved in standing frame. Education OT Patient Education: Correct positioning, Energy conservation, Modified ADL techniques, Progress toward Goal/Update tx plan, Purpose of tx/functional activities, Reviewed precautions, Rehab process, Safety issues, Transfer techniques, Use of adapted equipment, W/C management Teaching Recipient: Patient Teaching Methods: Demonstration, Discussion Response to Teaching: Verbalize Understanding, Reinforcement Needed OT Short Term Goals Short Term Goals Time Frame: Feb 24, 2021 Eatin Oral hygiene: 4 Toileting hygiene: 2 Shower/bathe self: 2 Upper body dressin Lower body dressin Putting on/taking off footwear: 3 OT Commercial Real Estate Sales Manager Goals Commercial Real Estate Sales Manager Goals Time Frame: Mar 04, 2021 Eating (QC): 6 Oral Hygiene (QC): 5 Toileting Hygiene (QC): 4 Shower/Bathe Self (QC): 3 Upper Body Dressing (QC): 4 Lower Body Dressing (QC): 3 On/Off Footwear (QC): 4 1=Demonstrate adherence to instructed precautions during ADL tasks. 2=Patient will verbalize/demonstrate understanding of assistive de vices/modifications for ADL. 3=Patient will improve strength/tolerance for activity to enable patient to perform ADL's. OT Education/Plan Problem List/Assessment Assessment: Decreased Activ Tolerance, Decreased Safety Aware, Decreased UE Strength, Dependent Transfers, Impaired Bed Mobility, Impaired Cognition, Impaired Coordination, Impaired Funct Balance, Impaired I ADL's, Impaired Self- Care Skills, Restricted Funct UE ROM Discharge Recommendations Plan/Recommendations: Continue POC Treatment Plan/Plan of Care Treatment,Training & Education: Yes Patient would benefit from OT for education, treatment and training to promote independence in ADL's, mobility, safety and/or upper extremity function for ADL's. Plan of Care: ADL Retraining, Functional Mobility, Group Exercise/Act as Ind, UE Funct Exercise/Act, W/C Management Training Treatment Duration: Mar 04, 2021 Frequency: At least 5 of 7 days/Wk (IRF) Estimated Hrs Per Day: 1.5 hours per day Agreement: Yes Rehab Potential: Guarded Time/GCodes Start Time: 09:00 Stop Time: 10:00 Total Time Billed (hr/min): 60 Billed Treatment Time 1 visit, ADL x2 (30 min) FA x2 (30 min) Antonieta Angel OT Feb 16, 2021 11:00
--- NOTE | 2021-02-16 11:22 | PM&R Progress Note ---
Subjective HPI/CC On Admission Date Seen by Provider: Feb 16, 2021 Time Seen by Provider: 09:00 Subjective/Events-last exam 02/16/2021: Pt doing well No issues Bowels moved yesterday and fecal incontinence Frausto cath in Cystoscopy by Dr. Welsh on Sunday02/15/2021: Pt doing a little better Frausto required and Dr. Welsh consulted Spot checks of oxygen without CPAP during the night are okay Still a Coleen-lift 02/14/2021: Pt doing well Condom catheter will be attempted Platelet count 108 Wound looks good BP and blood sugar good No pain Bowels are moving 02/13/2021: Patient doing well Has no needs Bowels are moving well No issues Sugars are reviewed 02/12/2021: Patient doing well Incontinent of bowel and bladder a lot Able to move himself and turn himself in bed Check meds and labs Cognitive deficit could preclude independent living 02/11/2021: Patient doing pretty well Dr. Rubio will be consulted Noncompliant with CPAP machine Oxygen was good last night at 90% Wound care consulted Dr. Pyle Sugars good Bowels are a bit loose and he does have fecal incontinence Review of Systems General: Fatigue Neurological: Weakness, Incoordination Objective Exam Vital Signs Vital Signs Date Time Temp Pulse Resp B/P (MAP) Pulse Ox O2 Delivery O2 Flow Rate FiO2 02/16/21 21:00 Room Air 02/16/21 20:11 36.4 68 18 136/66 (89) 97 Capillary Refill : General Appearance: No Apparent Distress, WD/WN, Chronically ill HEENT: PERRL/EOMI, Normal ENT Inspection, Pharynx Normal Neck: Full Range of Motion, Normal Inspection, Non Tender, Supple, Carotid Bruit Respiratory: Chest Non Tender, Lungs Clear, Normal Breath Sounds, No Accessory Muscle Use, No Respiratory Distress Cardiovascular: Regular Rate, Rhythm, No Edema, No Gallop, No JVD, No Murmur, Normal Peripheral Pulses Gastrointestinal: Normal Bowel Sounds, No Organomegaly, No Pulsatile Mass, Non Tender, Soft Back: Normal Inspection, No CVA Tenderness, No Vertebral Tenderness Extremity: Normal Capillary Refill, Normal Inspection, Normal Range of Motion, Non Tender, No Calf Tenderness, No Pedal Edema Neurologic/Psychiatric: Alert, Oriented x3, Normal Mood/Affect, c.o.d. biller II-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 FIM Transfers Therapy Code Descriptions/Definitions Functional [place] Measure: 0=Not Assessed/NA 4=Minimal Assistance 1=Total Assistance 5=Supervision or Setup 2=Maximal Assistance 6=Modified [place] 3=Moderate Assistance 7=Complete IndependenceSCALE: Activities may be completed with or without assistive devices. 0-Rnykvhslec-hnahyrk completes the activity by him/herself with no assistance from a helper. 5-Set-up or Clean-up Assistance-helper sets up or cleans up; patient completes activity. [place] assists only prior to or following the activity. 4-Supervision or Touching Assistance-helper provides verbal cues and/or touching/steadying and/or contact guard assistance as patient completes activity. Assistance may be provided throughout the activity or intermittently. 3-Partial/Moderate Assistance-helper does LESS THAN HALF the effort. [place] lifts, holds or supports trunk or limbs, but provides less than half the effort. 2-Substantial/Maximal Assistance-helper does MORE THAN HALF the effort. [place] lifts or holds trunk or limbs and provides more than half the effort. 7-Oztjnsqxs-iqhbhv does ALL the effort. Patient does none of the effort to complete the activity. Or, the assistance of 2 or more helpers is required for the patient to complete the activity. If activity was not attempted, code reason: 7-Patient Refused. 9-Not Applicable-not attempted and the patient did not perform the activity before the current illness, exacerbation or injury. 10-Not Attempted due to Environmental Limitations-(lack of equipment, weather restraints, etc.). 88-Not Attempted due to Medical Conditions or Safety Concerns. Roll Left to Right (QC): 3 Sit to Lying (QC): 3 Sit to Stand (QC): 1 Chair/Dbr-sk-Ikfna Xfer(QC): 1 Car Transfer (QC): 88 Gait Training Does the Patient Walk?: No and Walking Goal NOT indicated Walk 10 feet (QC): 88 Walk 50 ft with 2 Turns(QC): 88 Walk 150 ft (QC): 88 Walking 10ft/uneven surface-QC: 88 Wheelchair Training Does the Pt Use a Wheelchair?: Yes Distance: 100'x2 Wheel 50 ft with 2 turns (QC): 4 Wheel 150 ft (QC): 88 Type of Wheelchair: Manual Stair Training 1 Step (curb) (QC): 88 4 Steps (QC): 88 12 Steps (QC): 88 Balance Picking up an Object (QC): 88 ADL-Treatment Eating (QC): 4 Oral Hygiene (QC): 5 Bathing Location: L Arm, R Arm, L Upper Leg, R Upper Leg, L Lower Leg (including foot), R Lower Leg (including foot), Chest, Abdomen, Buttocks, Perineal Area Shower/Bathe Self (QC): 3 Upper Body Dressing (QC): 3 Lower Body Dressing (QC): 1 On/Off Footwear (QC): 3 Toileting Hygiene (QC): 1 Toilet Transfer (QC): 1 Assessment/Plan Assessment and Plan Assess & Plan/Chief Complaint Assessment: 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 and subsequent neurological deficits Lumbar L4-L5 subarticular recess narrowing B/L Left-sided weakness Hepatic Hemangioma Systolic Heart Failure LFT elevation LBBB Previous hypotension Obesity CAD Dementia/cognitive impairment GERD PUD PVD Diabetic polyneuropathy Progressive weakness High risk of falling Gait disturbance Spasticity T2DM Constipation Edema HTN Paroxysmal A-fib Thrombocytopenia Urinary Retention Status post UTI (resolved) BAM on CPAP Plan: Aggressive PT, OT, and speech therapy Order basic lab work in the morning Review records, talk to his family members as they are more in tune with his medical condition then the patient himself Neurology follow up Consult Dr. Rubio for A. fib 02/11/2021: Supportive care Dr. Rubio consult Poor memory recall noted 02/12/2021: Incontinence care Aggressive therapy 02/13/2021: Incontinence care Aggressive therapy 02/14/2021: Attempt condom catheter due to incontinence Monitor for retention Dr. Welsh consult 02/15/2021: Appreciate urology management Aggressive therapy Send records to [facility] 02/16/2021: Supportive care Send records to [facility] from [facility]'s Continue aggressive treatment Cystoscopy tomorrow (1) Cervical spinal cord compression (2) Atrial fibrillation (3) Anticoagulation adequate with anticoagulant therapy (4) Urinary retention CARMELLA ESTRADA DO Feb 16, 2021 11:22
--- NOTE | 2021-02-16 12:00 | Occupational Ther Daily Note ---
OT Current Status-Daily Note Subjective Pt reports increased "twitching" of LLE but no pain. Appearance Pt left in L sidelying with pillows placed for offloading. ADL-Treatment Therapy Code Descriptions/Definitions Functional [place] Measure: 0=Not Assessed/NA 4=Minimal Assistance 1=Total Assistance 5=Supervision or Setup 2=Maximal Assistance 6=Modified [place] 3=Moderate Assistance 7=Complete IndependenceSCALE: Activities may be completed with or without assistive devices. 0-Sbwcgovsfc-jpcqubq completes the activity by him/herself with no assistance from a helper. 5-Set-up or Clean-up Assistance-helper sets up or cleans up; patient completes activity. [place] assists only prior to or following the activity. 4-Supervision or Touching Assistance-helper provides verbal cues and/or touching/steadying and/or contact guard assistance as patient completes activity. Assistance may be provided throughout the activity or intermittently. 3-Partial/Moderate Assistance-helper does LESS THAN HALF the effort. [place] lifts, holds or supports trunk or limbs, but provides less than half the effort. 2-Substantial/Maximal Assistance-helper does MORE THAN HALF the effort. [place] lifts or holds trunk or limbs and provides more than half the effort. 6-Hnzsmmjqm-fyijeu does ALL the effort. Patient does none of the effort to complete the activity. Or, the assistance of 2 or more helpers is required for the patient to complete the activity. If activity was not attempted, code reason: 7-Patient Refused. 9-Not Applicable-not attempted and the patient did not perform the activity before the current illness, exacerbation or injury. 10-Not Attempted due to Environmental Limitations-(lack of equipment, weather restraints, etc.). 88-Not Attempted due to Medical Conditions or Safety Concerns. Other Treatment Pt participated in UE exercises with dowel michael and yellow theraband. Michael utilized as visual aid for coordination between R and L UE. Pt able to perform through full ROM, extra time for L when compared to R. 10-12 reps at shoulder, 20 reps at elbow, all planes. Pt does fatigue easily and requires a short break in between each exercise. Education OT Patient Education: Correct positioning, Exercise program Teaching Methods: Demonstration, Discussion Response to Teaching: Verbalize Understanding, Return Demonstration OT Short Term Goals Short Term Goals Time Frame: Feb 24, 2021 Eatin Oral hygiene: 4 Toileting hygiene: 2 Shower/bathe self: 2 Upper body dressin Lower body dressin Putting on/taking off footwear: 3 OT Train Director Goals Train Director Goals Time Frame: Mar 04, 2021 Eating (QC): 6 Oral Hygiene (QC): 5 Toileting Hygiene (QC): 4 Shower/Bathe Self (QC): 3 Upper Body Dressing (QC): 4 Lower Body Dressing (QC): 3 On/Off Footwear (QC): 4 1=Demonstrate adherence to instructed precautions during ADL tasks. 2=Patient will verbalize/demonstrate understanding of assistive devices/modifications for ADL. 3=Patient will improve strength/tolerance for activity to enable patient to perform ADL's. OT Education/Plan Problem List/Assessment Assessment: Decreased Activ Tolerance, Decreased Safety Aware, Decreased UE Strength, Dependent Transfers, Impaired Bed Mobility, Impaired Coordination, Impaired Funct Balance, Impaired Self-Care Skills, Restricted Funct UE ROM Discharge Recommendations Plan/Recommendations: Continue POC Treatment Plan/Plan of Care Treatment,Training & Education: Yes Patient would benefit from OT for education, treatment and training to promote independence in ADL's, mobility, safety and/or upper extremity function for ADL's. Plan of Care: ADL Retraining, Functional Mobility, Group Exercise/Act as Ind, UE Funct Exercise/Act, W/C Management Training Treatment Duration: Mar 04, 2021 Frequency: At least 5 of 7 days/Wk (IRF) Estimated Hrs Per Day: 1.5 hours per day Agreement: Yes Rehab Potential: Guarded Time/GCodes Start Time: 11:25 Stop Time: 11:55 Total Time Billed (hr/min): 30 Billed Treatment Time 1 visit, EX Antonieta John OT Feb 16, 2021 12:00
--- NOTE | 2021-02-16 14:35 | Physical Therapy Daily Note ---
PT Daily Note-Current Subjective Pt in bed upon arrival and agrees to tx. Pt states he feels his L LE hasn't improved since arriving to rehab unit. Mental Status Patient Orientation: Person, Place, Situation Transfers SCALE: Activities may be completed with or without assistive devices. 8-Ldvmwwhbjb-cnqvmsd completes the activity by him/herself with no assistance from a helper. 5-Set-up or Clean-up Assistance-helper sets up or cleans up; patient completes activity. [place] assists only prior to or following the activity. 4-Supervision or Touching Assistance-helper provides verbal cues and/or touching/steadying and/or contact guard assistance as patient completes activity. Assistance may be provided throughout the activity or intermittently. 3-Partial/Moderate Assistance-helper does LESS THAN HALF the effort. [place] lifts, holds or supports trunk or limbs, but provides less than half the effort. 2-Substantial/Maximal Assistance-helper does MORE THAN HALF the effort. [place] lifts or holds trunk or limbs and provides more than half the effort. 6-Dmzgtaavq-vvipgf does ALL the effort. Patient does none of the effort to complete the activity. Or, the assistance of 2 or more helpers is required for the patient to complete the activity. If activity was not attempted, code reason: 7-Patient Refused. 9-Not Applicable-not attempted and the patient did not perform the activity before the current illness, exacerbation or injury. 10-Not Attempted due to Environmental Limitations-(lack of equipment, weather restraints, etc.). 88-Not Attempted due to Medical Conditions or Safety Concerns. Roll Left & Right (QC): 3 Sit to Lying (QC): 3 Lying to Sitting/Side of Bed(Q: 3 Exercises Supine Ex: Rolling, Scooting Treatments Pt completes rolling to L side CGA, VC for UE/LE placement and sequnencing. Pt has soiled bed pad so pt roll to L side again as PT cleans pt and changes pad. Pt then rolls to R side Cici, A to flex L LE, as PT fixes pad under pt. Pt then completes rolling to R side again CGA, using bed rails to turn to side. Pt returns to supine, then instructed on supine to sit. Pt requires VC for sequencing, ModA to advance L LE and to bring torso upright. Pt sit EOB approx 10 mins supported by R UE only and WB through BLE. Pt sit to supine ModA, requiring A to bring BLE back into bed. Pt then scoots self to HOB, VC for UE/LE placement. Pt remains in bed with all needs met, call light in hand. Assessment Current Status: Poor Progress Pt requires frequent RB throughout tx. Pt has little strength increase in L LE PT Short Term Goals Short Term Goals Time Frame: Feb 17, 2021 Roll Left & Right: 3 Sit to lyin Lying to sitting on side of be: 3 Wheel 50ft w/2 turns: 4 Wheel 150 feet: 4 PT Breakfast Attendant Goals Breakfast Attendant Goals PT Breakfast Attendant Goals Time Frame: Mar 03, 2021 Roll Left & Right (QC): 4 Sit to Lying (QC): 4 Lying-Sitting on Side/Bed(QC): 4 Sit to Stand (QC): 88 Chair/Cji-rf-Jdemj Xfer(QC): 88 Toilet Transfer (QC): 88 Car Transfer (QC): 88 Does the Patient Walk: No and Walking Goal NOT indicated Walk 10 feet (QC): 88 Walk 50ft with 2 Turns (QC): 88 Walk 150 ft (QC): 88 Walking 10ft on Uneven Surface: 88 1 Step (curb) (QC): 88 4 Steps (QC): 88 12 Steps (QC): 88 Picking up an Object (QC): 88 Wheel 50 feet with 2 turns (QC: 6 Wheel 150 feet: 6 PT Plan Treatment/Plan Treatment Plan: Continue Plan of Care Treatment Plan: Bed Mobility, Education, Functional Activity Jorge, Functional Strength, Group Therapy, Gait, Safety, Therapeutic Exercise, Transfers Treatment Duration: Mar 03, 2021 Frequency: At least 5 of 7 days/Wk (IRF) Estimated Hrs Per Day: 1.5 hours per day Patient and/or Family Agrees t: Yes Time/GCodes Time In: 1400 Time Out: 1430 Total Billed Treatment Time: 30 Total Billed Treatment 1, FA, LIEN NOVOA ROTOFORMER BACKTENDER Feb 16, 2021 14:35
[2021-02-16] MEDS: TAMSULOSIN 0.4 MG (FLOMAX) CAP PO SCH (18:04)
[2021-02-16] MEDS: DIGOXIN 0.125 MG (LANOXIN) TAB PO SCH (18:04)
[2021-02-16 20:11] VITALS: BP 136/66
[2021-02-17] MEDS: inSUlin ASPART (NovoLOG) 1 UNIT/0.01 ML (CHARGE PER UNIT) SC SCH ×4 (05:31→21:06)
[2021-02-17] MEDS: MULTIVIT W/MINERALS TAB (THERAGRAN M) PO SCH (06:16)
[2021-02-17] MEDS: BETHANECHOL 10 MG (URECHOLINE) TAB PO SCH ×4 (06:16→21:39)
[2021-02-17 07:50] VITALS: BP 136/65
[2021-02-17] MEDS: lisINopril 10 MG (PRINIVIL) TABLET PO SCH (08:21)
[2021-02-17] MEDS: meTOprolol SUCCINATE 100 MG (TOPROL XL) TAB PO SCH (08:21)
[2021-02-17] MEDS: OMEGA 3 (FISH OIL) 1000 MG CAP PO SCH ×2 (08:21→21:38)
[2021-02-17] MEDS: CALCIUM CARB + VIT D 600 MG (CALCARB + D) TAB PO SCH (08:21)
[2021-02-17] MEDS: APIXABAN 5 MG (ELIQUIS) TABLET PO SCH ×2 (08:21→21:39)
[2021-02-17] MEDS: MAGNESIUM OXIDE (MAG-OX)400 MG TAB PO SCH (08:21)
--- NOTE | 2021-02-17 09:26 | Progress Note - Cardiology ---
Cardiology SOAP Progress Note Objective: I&O/Vital Signs 02/18/21 02/18/21 02/18/21 07:45 09:38 09:53 Temp 36.2 Pulse 71 68 Resp 18 B/P (MAP) 109/57 (74) 122/58 (79) Pulse Ox 96 O2 Delivery Room Air Room Air 02/18/21 00:00 Intake Total 650 ml Output Total 750 ml Balance -100 ml Constitutional: AAO x 3, well-developed, well-nourished Respiratory: No accessory muscle use, No respiratory distress; chest expansion is symmetric, chest is bilaterally symmetric, other (prolonged exp phase) Cardiovascular: irregularly irregular; No JVD; S1 and S2 Gastrointestional: No tender; soft, round, audible bowel sounds Extremities: other (mild bilat LE swelling) Neurologic/Psychiatric: other (LUE and LLE 4/5) Skin: No rash on exposed areas, No ulcerations on exposed areas Results/Procedures: Labs Laboratory Tests 02/17/21 11:04: Glucometer 166H 02/17/21 16:00: Glucometer 110 02/17/21 21:01: Glucometer 179H 02/18/21 05:48: Glucometer 141H A/P: Assessment: Cervical myelopathy with LUE and LLE weakness - management per medical services Chronic a-fib - OAC with Eliquis HTN - controlled HLD - statin tx Cardiomyopathy - undetermined length of time - echocardiogram from 02-04-21 at [facility] by Dr. Michaels showed LVEF 25%. Mod pulmonary HTN BAM - CPAP tx COPD DM 2 H/O TURP Plan: Continue OAC with Eliquis Cardiomyopathy of undetermined source, managed chronically by his clinical office technician in Dr Slick Yoo Continue current medication regimen Monitor lab from time to time JULIETTE KENNY Feb 17, 2021 09:26
[2021-02-17] MEDS: DOCUSATE SODIUM 100 MG (COLACE) CAP PO SCH ×2 (09:49→21:39)
[2021-02-17] MEDS: SENNA W/DOCUSATE (SENOKOT S) TABLET PO SCH ×2 (09:50→21:38)
[2021-02-17] MEDS: polyethylene glycoL POWDER 17 GM (MIRALAX) PACK PO SCH ×2 (09:50→21:07)
--- NOTE | 2021-02-17 09:55 | PM&R Progress Note ---
Subjective HPI/CC On Admission Date Seen by Provider: Feb 17, 2021 Time Seen by Provider: 10:00 Subjective/Events-last exam 02/17/2021: Patient doing really well Bowels moved yesterday All records sent to [facility] Has no rectal tone May need a suppository to evacuate bowels and treated like a paraplegic Bottom wound appears to be very superficial on a cushion 02/16/2021: Pt doing well No issues Bowels moved yesterday and fecal incontinence Frausto cath in Cystoscopy by Dr. Welsh on Sunday02/15/2021: Pt doing a little better Frausto required and Dr. Welsh consulted Spot checks of oxygen without CPAP during the night are okay Still a Coleen-lift 02/14/2021: Pt doing well Condom catheter will be attempted Platelet count 108 Wound looks good BP and blood sugar good No pain Bowels are moving 02/13/2021: Patient doing well Has no needs Bowels are moving well No issues Sugars are reviewed 02/12/2021: Patient doing well Incontinent of bowel and bladder a lot Able to move himself and turn himself in bed Check meds and labs Cognitive deficit could preclude independent living 02/11/2021: Patient doing pretty well Dr. Rubio will be consulted Noncompliant with CPAP machine Oxygen was good last night at 90% Wound care consulted Dr. Pyle Sugars good Bowels are a bit loose and he does have fecal incontinence Review of Systems General: Fatigue, Malaise Genitourinary: Incontinence Neurological: Weakness, Incoordination Objective Exam Vital Signs Vital Signs Date Time Temp Pulse Resp B/P (MAP) Pulse Ox O2 Delivery O2 Flow Rate FiO2 02/17/21 09:01 Room Air 02/17/21 07:50 36.3 76 18 136/65 (88) 94 Capillary Refill : General Appearance: No Apparent Distress, WD/WN, Chronically ill HEENT: PERRL/EOMI, Normal ENT Inspection, Pharynx Normal Neck: Full Range of Motion, Normal Inspection, Non Tender, Supple, Carotid Bruit Respiratory: Chest Non Tender, Lungs Clear, Normal Breath Sounds, No Accessory Muscle Use, No Respiratory Distress Cardiovascular: Regular Rate, Rhythm, No Edema, No Gallop, No JVD, No Murmur, Normal Peripheral Pulses Gastrointestinal: Normal Bowel Sounds, No Organomegaly, No Pulsatile Mass, Non Tender, Soft Back: Normal Inspection, No CVA Tenderness, No Vertebral Tenderness Extremity: Normal Capillary Refill, Normal Inspection, Normal Range of Motion, Non Tender, No Calf Tenderness, No Pedal Edema Neurologic/Psychiatric: Alert, Oriented x3, Normal Mood/Affect, photo mask pattern generator II-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 FIM Transfers Therapy Code Descriptions/Definitions Functional [place] Measure: 0=Not Assessed/NA 4=Minimal Assistance 1=Total Assistance 5=Supervision or Setup 2=Maximal Assistance 6=Modified [place] 3=Moderate Assistance 7=Complete IndependenceSCALE: Activities may be completed with or without assistive devices. 9-Rdwhfufizx-zrhsubb completes the activity by him/herself with no assistance from a helper. 5-Set-up or Clean-up Assistance-helper sets up or cleans up; patient completes activity. [place] assists only prior to or following the activity. 4-Supervision or Touching Assistance-helper provides verbal cues and/or touching/steadying and/or contact guard assistance as patient completes activity. Assistance may be provided throughout the activity or intermittently. 3-Partial/Moderate Assistance-helper does LESS THAN HALF the effort. [place] lifts, holds or supports trunk or limbs, but provides less than half the effort. 2-Substantial/Maximal Assistance-helper does MORE THAN HALF the effort. [place] lifts or holds trunk or limbs and provides more than half the effort. 6-Ndovdxzhr-nivmeg does ALL the effort. Patient does none of the effort to complete the activity. Or, the assistance of 2 or more helpers is required for the patient to complete the activity. If activity was not attempted, code reason: 7-Patient Refused. 9-Not Applicable-not attempted and the patient did not perform the activity before the current illness, exacerbation or injury. 10-Not Attempted due to Environmental Limitations-(lack of equipment, weather restraints, etc.). 88-Not Attempted due to Medical Conditions or Safety Concerns. Roll Left to Right (QC): 3 Sit to Lying (QC): 3 Sit to Stand (QC): 1 Chair/Xep-jv-Xwbmj Xfer(QC): 1 Car Transfer (QC): 88 Gait Training Does the Patient Walk?: No and Walking Goal NOT indicated Walk 10 feet (QC): 88 Walk 50 ft with 2 Turns(QC): 88 Walk 150 ft (QC): 88 Walking 10ft/uneven surface-QC: 88 Wheelchair Training Does the Pt Use a Wheelchair?: Yes Distance: 100'x2 Wheel 50 ft with 2 turns (QC): 4 Wheel 150 ft (QC): 88 Type of Wheelchair: Manual Stair Training 1 Step (curb) (QC): 88 4 Steps (QC): 88 12 Steps (QC): 88 Balance Picking up an Object (QC): 88 ADL-Treatment Eating (QC): 4 Oral Hygiene (QC): 5 Bathing Location: L Arm, R Arm, L Upper Leg, R Upper Leg, L Lower Leg (including foot), R Lower Leg (including foot), Chest, Abdomen, Buttocks, Perineal Area Shower/Bathe Self (QC): 3 Upper Body Dressing (QC): 3 Lower Body Dressing (QC): 1 On/Off Footwear (QC): 3 Toileting Hygiene (QC): 1 Toilet Transfer (QC): 1 Assessment/Plan Assessment and Plan Assess & Plan/Chief Complaint Assessment: 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 and subsequent neurological deficits Lumbar L4-L5 subarticular recess narrowing B/L Left-sided weakness Hepatic Hemangioma Systolic Heart Failure LFT elevation LBBB Previous hypotension Obesity CAD Dementia/cognitive impairment GERD PUD PVD Diabetic polyneuropathy Progressive weakness High risk of falling Gait disturbance Spasticity T2DM Constipation Edema HTN Paroxysmal A-fib Thrombocytopenia Urinary Retention Status post UTI (resolved) BAM on CPAP Plan: Aggressive PT, OT, and speech therapy Order basic lab work in the morning Review records, talk to his family members as they are more in tune with his medical condition then the patient himself Neurology follow up Consult Dr. Rubio for A. fib 02/11/2021: Supportive care Dr. Rubio consult Poor memory recall noted 02/12/2021: Incontinence care Aggressive therapy 02/13/2021: Incontinence care Aggressive therapy 02/14/2021: Attempt condom catheter due to incontinence Monitor for retention Dr. Welsh consult 02/15/2021: Appreciate urology management Aggressive therapy Send records to [facility] 02/16/2021: Supportive care Send records to [facility] from [facility] Continue aggressive treatment Cystoscopy tomorrow 02/17/2021: Cystoscopy tomorrow Bowel evacuation (1) Cervical spinal cord compression (2) Atrial fibrillation (3) Anticoagulation adequate with anticoagulant therapy (4) Urinary retention CARMELLA ESTRADA DO Feb 17, 2021 09:55
--- NOTE | 2021-02-17 09:58 | Physical Therapy Daily Note ---
PT Daily Note-Current Subjective Patient in bed pre tx, agrees to PT, has no complaints of pain. Will be co- treating with OT due to poor patient mobility, strength, endurance, poor sitting balance and trunk strength, coordinate UE and LE during activity, safety and reduce risk of falls. Appearance Patient in WC at bedside post tx, has a waffle cushion in it for pressure relief, has nurse call, phone, tray, all needs met. Mental Status Patient Orientation: Person, Place, Situation Transfers SCALE: Activities may be completed with or without assistive devices. 7-Spshidzqum-vlryauk completes the activity by him/herself with no assistance from a helper. 5-Set-up or Clean-up Assistance-helper sets up or cleans up; patient completes activity. [place] assists only prior to or following the activity. 4-Supervision or Touching Assistance-helper provides verbal cues and/or touching/steadying and/or contact guard assistance as patient completes activity. Assistance may be provided throughout the activity or intermittently. 3-Partial/Moderate Assistance-helper does LESS THAN HALF the effort. [place] lifts, holds or supports trunk or limbs, but provides less than half the effort. 2-Substantial/Maximal Assistance-helper does MORE THAN HALF the effort. [place] lifts or holds trunk or limbs and provides more than half the effort. 2-Pphgmhusg-xkifze does ALL the effort. Patient does none of the effort to complete the activity. Or, the assistance of 2 or more helpers is required for the patient to complete the activity. If activity was not attempted, code reason: 7-Patient Refused. 9-Not Applicable-not attempted and the patient did not perform the activity before the current illness, exacerbation or injury. 10-Not Attempted due to Environmental Limitations-(lack of equipment, weather restraints, etc.). 88-Not Attempted due to Medical Conditions or Safety Concerns. Roll Left & Right (QC): 3 Sit to Lying (QC): 1 Lying to Sitting/Side of Bed(Q: 1 Chair/Qle-tk-Xezrt Xfer(QC): 1 Patient needs to get dressed. He rolls from side to side several times to get shorts and brief on, has to be cleaned for a little BM, then supine to sit to complete dressing, then sit to supine, rolls some more for ck sling placement, then ck to WC Wheelchair Training Does the Pt Use a Wheelchair?: Yes Wheel 50 ft with 2 turns (QC): 3 Wheel 150 ft (QC): 3 Type of Wheelchair: Manual 200', min assist for tight turns Treatments PT performed rolling, supine <-> sit, sitting balance, positioning and safety during activity, WC mobility, OT performed dressing, UE positioning and safety during activity Assessment Current Status: Poor Progress slight improvement with rolling PT Short Term Goals Short Term Goals Time Frame: Feb 17, 2021 Roll Left & Right: 3 Sit to lyin Lying to sitting on side of be: 3 Wheel 50ft w/2 turns: 4 Wheel 150 feet: 4 PT Nursing Home Goals Nursing Home Goals PT Nursing Home Goals Time Frame: Mar 03, 2021 Roll Left & Right (QC): 4 Sit to Lying (QC): 4 Lying-Sitting on Side/Bed(QC): 4 Sit to Stand (QC): 88 Chair/Sno-hu-Hbgaa Xfer(QC): 88 Toilet Transfer (QC): 88 Car Transfer (QC): 88 Does the Patient Walk: No and Walking Goal NOT indicated Walk 10 feet (QC): 88 Walk 50ft with 2 Turns (QC): 88 Walk 150 ft (QC): 88 Walking 10ft on Uneven Surface: 88 1 Step (curb) (QC): 88 4 Steps (QC): 88 12 Steps (QC): 88 Picking up an Object (QC): 88 Wheel 50 feet with 2 turns (QC: 6 Wheel 150 feet: 6 PT Plan Problem List Problem List: Activity Tolerance, Functional Strength, Safety, Balance, Gait, Transfer, Bed Mobility, ROM Treatment/Plan Treatment Plan: Continue Plan of Care Treatment Plan: Bed Mobility, Education, Functional Activity Jorge, Functional Strength, Group Therapy, Gait, Safety, Therapeutic Exercise, Transfers Treatment Duration: Mar 03, 2021 Frequency: At least 5 of 7 days/Wk (IRF) Estimated Hrs Per Day: 1.5 hours per day Patient and/or Family Agrees t: Yes Safety Risks/Education Patient Education: Transfer Techniques, Correct Positioning, W/C Management, Safety Issues Teaching Recipient: Patient Teaching Methods: Demonstration, Discussion Response to Teaching: Reinforcement Needed Time/GCodes Time In: 0900 Time Out: 1000 Total Billed Treatment Time: 60 Total Billed Treatment 1 visit FA 60' co-treated with OT for 60' TARA MCCOY PT Feb 17, 2021 09:58
--- NOTE | 2021-02-17 09:58 | Occupational Ther Daily Note ---
OT Current Status-Daily Note Subjective Pt denies pain, agreeable to treatment. Appearance Pt left sitting in w/c, all needs within reach at end of session. ADL-Treatment Therapy Code Descriptions/Definitions Functional [place] Measure: 0=Not Assessed/NA 4=Minimal Assistance 1=Total Assistance 5=Supervision or Setup 2=Maximal Assistance 6=Modified [place] 3=Moderate Assistance 7=Complete IndependenceSCALE: Activities may be completed with or without assistive devices. 6-Hkpqiqynds-jsmuiat completes the activity by him/herself with no assistance from a helper. 5-Set-up or Clean-up Assistance-helper sets up or cleans up; patient completes activity. [place] assists only prior to or following the activity. 4-Supervision or Touching Assistance-helper provides verbal cues and/or touching/steadying and/or contact guard assistance as patient completes activity. Assistance may be provided throughout the activity or intermittently. 3-Partial/Moderate Assistance-helper does LESS THAN HALF the effort. [place] lifts, holds or supports trunk or limbs, but provides less than half the effort. 2-Substantial/Maximal Assistance-helper does MORE THAN HALF the effort. [place] lifts or holds trunk or limbs and provides more than half the effort. 5-Ppefqmwkz-uimvbo does ALL the effort. Patient does none of the effort to complete the activity. Or, the assistance of 2 or more helpers is required for the patient to complete the activity. If activity was not attempted, code reason: 7-Patient Refused. 9-Not Applicable-not attempted and the patient did not perform the activity before the current illness, exacerbation or injury. 10-Not Attempted due to Environmental Limitations-(lack of equipment, weather restraints, etc.). 88-Not Attempted due to Medical Conditions or Safety Concerns. Upper Body Dressing (QC): 4 Lower Body Dressing (QC): 2 On/Off Footwear: 3 Toileting Hygiene (QC): 1 Toilet Transfer (QC): 1 Co-treat with PT secondary to poor patient mobility, strength, endurance, sitting balance, safety and high fall risk. Pt incontinent of BM at start of session. Dep for guillermo care at bed level. Dressing tasks performed in supine and sitting EOB. While sitting upright with HOB elevated, pt utilized collection correspondent to thread LB clothing over feet. Dep to lift LLE in order to thread clothing. OT educated pt on roll method to manage clothing over hips. Good effort from patient, yet still requires MAX A to manage clothing as pt rolled R/L. Mod A x2 to sit EOB. Once sitting, pt donned tierney socks with use of sock aid, again requires assist to lift R foot off floor in order to place into AE. Min verbal cues for correct sequencing. He sat EOB to don shirt, close SBA-CGA for sitting balance. 1 mild LOB posterior. Pt demonstrates good righting reaction and able to self recover. Dep transfer to w/c with use of ck. Pt propelled w/c throughout unit with SBA. Short rest breaks needed when fatigued. Improved speed and force exhibited with propulsion. Education OT Patient Education: Correct positioning, Disease process, Energy conservation, Modified ADL techniques, Progress toward Goal/Update tx plan, Purpose of tx/functional activities, Rehab process, Safety issues, Transfer techniques, Use of adapted equipment, W/C management Teaching Recipient: Patient Teaching Methods: Demonstration, Discussion Response to Teaching: Verbalize Understanding, Return Demonstration, Reinforcement Needed OT Short Term Goals Short Term Goals Time Frame: Feb 24, 2021 Eatin Oral hygiene: 4 Toileting hygiene: 2 Shower/bathe self: 2 Upper body dressin Lower body dressin Putting on/taking off footwear: 3 OT Nursing Home Goals Nursing Home Goals Time Frame: Mar 04, 2021 Eating (QC): 6 Oral Hygiene (QC): 5 Toileting Hygiene (QC): 4 Shower/Bathe Self (QC): 3 Upper Body Dressing (QC): 4 Lower Body Dressing (QC): 3 On/Off Footwear (QC): 4 1=Demonstrate adherence to instructed precautions during ADL tasks. 2=Patient will verbalize/demonstrate understanding of assistive devices/modifications for ADL. 3=Patient will improve strength/tolerance for activity to enable patient to perform ADL's. OT Education/Plan Problem List/Assessment Assessment: Decreased Activ Tolerance, Decreased Safety Aware, Decreased UE Strength, Dependent Transfers, Impaired Bed Mobility, Impaired Cognition, Impaired Coordination, Impaired Funct Balance, Impaired I ADL's, Impaired Self- Care Skills, Restricted Funct UE ROM Discharge Recommendations Plan/Recommendations: Continue POC Treatment Plan/Plan of Care Treatment,Training & Education: Yes Patient would benefit from OT for education, treatment and training to promote independence in ADL's, mobility, safety and/or upper extremity function for ADL's. Plan of Care: ADL Retraining, Functional Mobility, Group Exercise/Act as Ind, UE Funct Exercise/Act, W/C Management Training Treatment Duration: Mar 04, 2021 Frequency: At least 5 of 7 days/Wk (IRF) Estimated Hrs Per Day: 1.5 hours per day Agreement: Yes Rehab Potential: Guarded Time/GCodes Start Time: 09:00 Stop Time: 10:00 Total Time Billed (hr/min): 60 Billed Treatment Time 1 visit, ADL x3 (40) FA (20) Antonieta Angel OT Feb 17, 2021 09:58
[2021-02-17] MEDS ORDERED: FERR325T18 PO (11:18)
[2021-02-17] MEDS ORDERED: LOSA50TA63 PO (11:18)
[2021-02-17] MEDS ORDERED: SOLI10TA7 PO (11:18)
[2021-02-17] MEDS ORDERED: POTA10CA43 PO (11:18)
--- NOTE | 2021-02-17 12:48 | Progress Note - Urology ---
Progress Note-Urology Progress Notes/Assess & Plan Progress/Assessment & Plan CYSTO TOMORROW NOON. FULLY REEXPLAINED AND CONSENT ORDERED Final Diagnosis URINE RETENTION YUAN NICHOLSON MD Feb 17, 2021 12:48
--- NOTE | 2021-02-17 13:25 | Physical Therapy Daily Note ---
PT Daily Note-Current Subjective Patient in WC pre tx, agrees to PT, has no complaints of pain. Appearance Patient in bed post tx with nurse call, phone, tray, all needs met. Mental Status Patient Orientation: Person, Place, Situation Attachments: Frausto Catheter Transfers SCALE: Activities may be completed with or without assistive devices. 2-Kcwycfzokf-uzubehn completes the activity by him/herself with no assistance from a helper. 5-Set-up or Clean-up Assistance-helper sets up or cleans up; patient completes activity. [place] assists only prior to or following the activity. 4-Supervision or Touching Assistance-helper provides verbal cues and/or touching/steadying and/or contact guard assistance as patient completes activity. Assistance may be provided throughout the activity or intermittently. 3-Partial/Moderate Assistance-helper does LESS THAN HALF the effort. [place] lifts, holds or supports trunk or limbs, but provides less than half the effort. 2-Substantial/Maximal Assistance-helper does MORE THAN HALF the effort. [place] lifts or holds trunk or limbs and provides more than half the effort. 3-Idryyzbnj-qmfpbd does ALL the effort. Patient does none of the effort to complete the activity. Or, the assistance of 2 or more helpers is required for the patient to complete the activity. If activity was not attempted, code reason: 7-Patient Refused. 9-Not Applicable-not attempted and the patient did not perform the activity before the current illness, exacerbation or injury. 10-Not Attempted due to Environmental Limitations-(lack of equipment, weather restraints, etc.). 88-Not Attempted due to Medical Conditions or Safety Concerns. Chair/Vvj-du-Mwwgd Xfer(QC): 1 ck lift for transfer to bed, rolling in bed each way to remove sling Exercises Supine Ex: Ankle pumps, Quad Set, Glut sets, Heel Slides Supine Reps: 20 Treatments transfers, LE strengthening Assessment Current Status: Poor Progress no change in mobility PT Short Term Goals Short Term Goals Time Frame: Feb 17, 2021 Roll Left & Right: 3 Sit to lyin Lying to sitting on side of be: 3 Wheel 50ft w/2 turns: 4 Wheel 150 feet: 4 PT Aerial Advertiser Goals Aerial Advertiser Goals PT Aerial Advertiser Goals Time Frame: Mar 03, 2021 Roll Left & Right (QC): 4 Sit to Lying (QC): 4 Lying-Sitting on Side/Bed(QC): 4 Sit to Stand (QC): 88 Chair/Fzn-jz-Tcxsz Xfer(QC): 88 Toilet Transfer (QC): 88 Car Transfer (QC): 88 Does the Patient Walk: No and Walking Goal NOT indicated Walk 10 feet (QC): 88 Walk 50ft with 2 Turns (QC): 88 Walk 150 ft (QC): 88 Walking 10ft on Uneven Surface: 88 1 Step (curb) (QC): 88 4 Steps (QC): 88 12 Steps (QC): 88 Picking up an Object (QC): 88 Wheel 50 feet with 2 turns (QC: 6 Wheel 150 feet: 6 PT Plan Problem List Problem List: Activity Tolerance, Functional Strength, Safety, Balance, Gait, Transfer, Bed Mobility, ROM Treatment/Plan Treatment Plan: Continue Plan of Care Treatment Plan: Bed Mobility, Education, Functional Activity Jorge, Functional Strength, Group Therapy, Gait, Safety, Therapeutic Exercise, Transfers Treatment Duration: Mar 03, 2021 Frequency: At least 5 of 7 days/Wk (IRF) Estimated Hrs Per Day: 1.5 hours per day Patient and/or Family Agrees t: Yes Safety Risks/Education Patient Education: Transfer Techniques, Correct Positioning, Safety Issues Teaching Recipient: Patient Teaching Methods: Demonstration, Discussion Response to Teaching: Reinforcement Needed Time/GCodes Time In: 1300 Time Out: 1330 Total Billed Treatment Time: 30 Total Billed Treatment 1 visit EX 15' FA 15' TARA MCCOY PT Feb 17, 2021 13:25
--- NOTE | 2021-02-17 14:26 | Occupational Ther Daily Note ---
OT Current Status-Daily Note Subjective Pt agreeable to treatment Appearance Left supine in bed, all needs within reach. Mental Status/Objective Patient Orientation: Person, Place, Situation ADL-Treatment Therapy Code Descriptions/Definitions Functional Candler Measure: 0=Not Assessed/NA 4=Minimal Assistance 1=Total Assistance 5=Supervision or Setup 2=Maximal Assistance 6=Modified [place] 3=Moderate Assistance 7=Complete IndependenceSCALE: Activities may be completed with or without assistive devices. 3-Uwhxgxspth-pwpnoxv completes the activity by him/herself with no assistance from a helper. 5-Set-up or Clean-up Assistance-helper sets up or cleans up; patient completes activity. [place] assists only prior to or following the activity. 4-Supervision or Touching Assistance-helper provides verbal cues and/or touching/steadying and/or contact guard assistance as patient completes activity. Assistance may be provided throughout the activity or intermittently. 3-Partial/Moderate Assistance-helper does LESS THAN HALF the effort. [place] lifts, holds or supports trunk or limbs, but provides less than half the effort. 2-Substantial/Maximal Assistance-helper does MORE THAN HALF the effort. [place] lifts or holds trunk or limbs and provides more than half the effort. 2-Mjsnfnlhf-jroqyy does ALL the effort. Patient does none of the effort to complete the activity. Or, the assistance of 2 or more helpers is required for the patient to complete the activity. If activity was not attempted, code reason: 7-Patient Refused. 9-Not Applicable-not attempted and the patient did not perform the activity before the current illness, exacerbation or injury. 10-Not Attempted due to Environmental Limitations-(lack of equipment, weather restraints, etc.). 88-Not Attempted due to Medical Conditions or Safety Concerns. RN in room during session, discussed need for suppository. OT to assist pt with doffing clothing. Mod-max a required as pt rolled R/L for clothing management. Requires use of bedrail to pull self forward in order to doff shirt off head. Other Treatment Pt participated in UE exercises with dowel michael and yellow theraband. Michael utilized as visual aid for coordination between R and L UE. Pt able to perform through full ROM, extra time for L when compared to R. 10-12 reps at shoulder, 20 reps at elbow, all planes. AAROM for LUE after ~8 reps. Pt does fatigue easily and requires a short break in between each exercise. Education OT Patient Education: Correct positioning, Disease process, Energy conse rvation, Exercise program, Modified ADL techniques, Progress toward Goal/Update tx plan, Purpose of tx/functional activities, Rehab process, Safety issues, Transfer techniques Teaching Recipient: Patient Teaching Methods: Demonstration, Discussion Response to Teaching: Verbalize Understanding, Return Demonstration, R einforcement Needed OT Short Term Goals Short Term Goals Time Frame: Feb 24, 2021 Eatin Oral hygiene: 4 Toileting hygiene: 2 Shower/bathe self: 2 Upper body dressin Lower body dressin Putting on/taking off footwear: 3 OT Intermediate Goals Intermediate Goals Time Frame: Mar 04, 2021 Eating (QC): 6 Oral Hygiene (QC): 5 Toileting Hygiene (QC): 4 Shower/Bathe Self (QC): 3 Upper Body Dressing (QC): 4 Lower Body Dressing (QC): 3 On/Off Footwear (QC): 4 1=Demonstrate adherence to instructed precautions during ADL tasks. 2=Patient will verbalize/demonstrate understanding of assistive devices/modifications for ADL. 3=Patient will improve strength/tolerance for activity to enable patient to perform ADL's. OT Education/Plan Problem List/Assessment Assessment: Decreased Activ Tolerance, Decreased Safety Aware, Decreased UE Strength, Dependent Transfers, Impaired Bed Mobility, Impaired Coordination, Impaired Funct Balance, Impaired I ADL's, Impaired Self-Care Skills, Restricted Funct UE ROM Discharge Recommendations Plan/Recommendations: Continue POC Treatment Plan/Plan of Care Treatment,Training & Education: Yes Patient would benefit from OT for education, treatment and training to promote independence in ADL's, mobility, safety and/or upper extremity function for ADL's. Plan of Care: ADL Retraining, Functional Mobility, Group Exercise/Act as Ind, UE Funct Exercise/Act, W/C Management Training Treatment Duration: Mar 04, 2021 Frequency: At least 5 of 7 days/Wk (IRF) Estimated Hrs Per Day: 1.5 hours per day Agreement: Yes Rehab Potential: Guarded Time/GCodes Start Time: 13:40 Stop Time: 12:10 Total Time Billed (hr/min): 30 Billed Treatment Time 1 visit, EX (20) ADL (10) Antonieta Angel OT Feb 17, 2021 14:26
--- NOTE | 2021-02-17 17:38 | Podiatry Progress Note ---
Standard Progress Note Progress Notes/Assess & Plan Date Seen by a Provider: Feb 17, 2021 Time Seen by a Provider: 17:36 Progress/Assessment & Plan Consultation dictated. Foot care given. Final Diagnosis Onychomycosis, Peripheral Neuropathy, Weakness THI COLVIN DPM Feb 17, 2021 17:38
[2021-02-17] MEDS: TAMSULOSIN 0.4 MG (FLOMAX) CAP PO SCH (18:45)
[2021-02-17] MEDS: DIGOXIN 0.125 MG (LANOXIN) TAB PO SCH (18:45)
[2021-02-17 20:00] VITALS: BP 123/67
--- NOTE | 2021-02-17 20:29 | CONSULTATION REPORT ---
DATE OF SERVICE: 02/17/2021 REASON FOR CONSULTATION: Foot care. HISTORY OF PRESENT ILLNESS: The patient has difficulty reaching for and caring for his feet and he is complaining about multiple toenails today. He is also complaining about muscle weakness, especially on the left lower extremity. The patient has had chronic atrial fibrillation, was at [facility] for treatment and left sided weakness, presumably from a cervical spine compression. No neoplastic process was identified. He is currently on a [place]en lift for transfers. He is also doing rehabilitation at this juncture. PAST MEDICAL HISTORY: Includes spinal cord compression, spinal cord mass and edema, left lower extremity weakness, hepatic hemangioma, systolic heart failure, LFT elevation, left bundle branch block, hypertension, obesity, coronary artery disease, dementia, GERD, peripheral vascular disease, PUD, diabetic polyneuropathy, progressive weakness, hypertension, edema, AFib, thrombocytopenia, urinary retention, and UTI. PHYSICAL EXAMINATION: EXTREMITIES: On lower extremity examination, the patient had 1/4 dorsalis pedis pulse on the left, 0/4 on the right, 0/4 posterior tibial pulse bilaterally. Cap refill time is approximately 3 seconds. The patient has pitting edema noted in bilateral lower extremity. NEUROLOGIC: The patient has diminished protective sensation with a 10 gram monofilament wire examination. Deep tendon reflexes to the Achilles tendon are also diminished bilaterally. There is a diminished vibratory sensation to the forefoot bilaterally. INTEGUMENTARY: The patient has thick yellow dystrophic toenails with subungual debris at R1, 2, 3 and L1 and 2 digits. There are incurvated borders noted to the R1 and R3 digits. There is an incurvation to the hyponychium of the left second digit. No erythema, edema or gross signs of bacterial infection is noted at this time. MUSCULOSKELETAL FINDINGS: The patient has 3/5 muscle strength to the four major quadrants of the foot on the left and 4/5 muscle strength to the four major quadrants of the foot on the right. ASSESSMENT: 1. Peripheral vascular disease. 2. Diabetic neuropathy. 3. Onychomycosis. 4. Onychocryptosis. 5. Muscle weakness, left worse than right. PLAN: Various options were discussed with the patient today. We discussed diabetic foot care in general. The patient's toenails were debrided mechanically. Betadine was applied. The offending nail borders were also reduced without the aid of anesthesia. Betadine was applied. The patient is welcome to follow up in our office upon discharge. The patient is to continue with his physical therapy. We will see the patient as necessary in the office. Job ID: [id number] DocumentID: [id number] Dictated Date: 02/17/2021 17:43:47 Critical Care Physician Date: 02/17/2021 20:28:28 Dictated By: THI COLVIN DPM
[2021-02-17] MEDS: SIMvastatin 40 MG (ZOCOR) TAB PO SCH (21:39)
[2021-02-18] MEDS: MELATONIN 3 MG TABLET PO PRN ×2 (00:47→21:24)
[2021-02-18] MEDS: inSUlin ASPART (NovoLOG) 1 UNIT/0.01 ML (CHARGE PER UNIT) SC SCH ×4 (06:03→21:16)
[2021-02-18] MEDS: MULTIVIT W/MINERALS TAB (THERAGRAN M) PO SCH (06:05)
[2021-02-18] MEDS: KCL 10 MEQ TAB (MICRO K) PO SCH (06:05)
[2021-02-18] MEDS: LEVOTHYROXINE 100 MCG (LEVOTHROID) TAB PO SCH (06:05)
[2021-02-18] MEDS: BETHANECHOL 10 MG (URECHOLINE) TAB PO SCH ×4 (06:06→21:16)
[2021-02-18 07:45] VITALS: BP 109/57
[2021-02-18] MEDS: FERROUS SULF 325 MG (IRON) TAB PO SCH (08:14)
[2021-02-18] MEDS: OMEGA 3 (FISH OIL) 1000 MG CAP PO SCH ×2 (08:14→21:16)
--- NOTE | 2021-02-18 08:14 | PM&R Progress Note ---
Subjective HPI/CC On Admission Date Seen by Provider: Feb 18, 2021 Time Seen by Provider: 05:45 Subjective/Events-last exam 02/18/2021: Patient doing well Has no complaints Cystoscopy to be done today by urology No pain is reported Bowel evacuation ordered 02/17/2021: Patient doing really well Bowels moved yesterday All records sent to [facility] Has no rectal tone May need a suppository to evacuate bowels and treated like a paraplegic Bottom wound appears to be very superficial on a cushion 02/16/2021: Pt doing well No issues Bowels moved yesterday and fecal incontinence Frausto cath in Cystoscopy by Dr. Welsh on Sunday02/15/2021: Pt doing a little better Frausto required and Dr. Welsh consulted Spot checks of oxygen without CPAP during the night are okay Still a Coleen-lift 02/14/2021: Pt doing well Condom catheter will be attempted Platelet count 108 Wound looks good BP and blood sugar good No pain Bowels are moving 02/13/2021: Patient doing well Has no needs Bowels are moving well No issues Sugars are reviewed 02/12/2021: Patient doing well Incontinent of bowel and bladder a lot Able to move himself and turn himself in bed Check meds and labs Cognitive deficit could preclude independent living 02/11/2021: Patient doing pretty well Dr. Rubio will be consulted Noncompliant with CPAP machine Oxygen was good last night at 90% Wound care consulted Dr. Pyle Sugars good Bowels are a bit loose and he does have fecal incontinence Review of Systems General: Fatigue, Malaise Genitourinary: Incontinence, Retention Neurological: Weakness, Incoordination Objective Exam Vital Signs Vital Signs Date Time Temp Pulse Resp B/P (MAP) Pulse Ox O2 Delivery O2 Flow Rate FiO2 02/18/21 09:53 68 122/58 (79) 02/18/21 09:38 Room Air 02/18/21 07:45 36.2 18 96 Capillary Refill : General Appearance: No Apparent Distress, WD/WN, Chronically ill HEENT: PERRL/EOMI, Normal ENT Inspection, Pharynx Normal Neck: Full Range of Motion, Normal Inspection, Non Tender, Supple, Carotid Bruit Respiratory: Chest Non Tender, Lungs Clear, Normal Breath Sounds, No Accessory Muscle Use, No Respiratory Distress Cardiovascular: Regular Rate, Rhythm, No Edema, No Gallop, No JVD, No Murmur, Normal Peripheral Pulses Gastrointestinal: Normal Bowel Sounds, No Organomegaly, No Pulsatile Mass, Non Tender, Soft Back: Normal Inspection, No CVA Tenderness, No Vertebral Tenderness Extremity: Normal Capillary Refill, Normal Inspection, Normal Range of Motion, Non Tender, No Calf Tenderness, No Pedal Edema Neurologic/Psychiatric: Alert, Oriented x3, Normal 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 FIM Transfers Therapy Code Descriptions/Definitions Functional [place] Measure: 0=Not Assessed/NA 4=Minimal Assistance 1=Total Assistance 5=Supervision or Setup 2=Maximal Assistance 6=Modified [place] 3=Moderate Assistance 7=Complete IndependenceSCALE: Activities may be completed with or without assistive devices. 9-Xgilhkrhje-osctecm completes the activity by him/herself with no assistance f rom a helper. 5-Set-up or Clean-up Assistance-helper sets up or cleans up; patient completes activity. [place] assists only prior to or following the activity. 4-Supervision or Touching Assistance-helper provides verbal cues and/or touching/steadying and/or contact guard assistance as patient completes activity. Assistance may be provided throughout the activity or intermittently. 3-Partial/Moderate Assistance-helper does LESS THAN HALF the effort. [place] lifts, holds or supports trunk or limbs, but provides less than half the effort. 2-Substantial/Maximal Assistance-helper does MORE THAN HALF the effort. [place] lifts or holds trunk or limbs and provides more than half the effort. 0-Zbkluwglm-dwlwlf does ALL the effort. Patient does none of the effort to complete the activity. Or, the assistance of 2 or more helpers is required for the patient to complete the activity. If activity was not attempted, code reason: 7-Patient Refused. 9-Not Applicable-not attempted and the patient did not perform the activity before the current illness, exacerbation or injury. 10-Not Attempted due to Environmental Limitations-(lack of equipment, weather restraints, etc.). 88-Not Attempted due to Medical Conditions or Safety Concerns. Roll Left to Right (QC): 3 Sit to Lying (QC): 1 Sit to Stand (QC): 1 Chair/Udl-hi-Lzjfi Xfer(QC): 1 Car Transfer (QC): 88 Gait Training Does the Patient Walk?: No and Walking Goal NOT indicated Walk 10 feet (QC): 88 Walk 50 ft with 2 Turns(QC): 88 Walk 150 ft (QC): 88 Walking 10ft/uneven surface-QC: 88 Wheelchair Training Does the Pt Use a Wheelchair?: Yes Distance: 100'x2 Wheel 50 ft with 2 turns (QC): 3 Wheel 150 ft (QC): 3 Type of Wheelchair: Manual Stair Training 1 Step (curb) (QC): 88 4 Steps (QC): 88 12 Steps (QC): 88 Balance Picking up an Object (QC): 88 ADL-Treatment Eating (QC): 4 Oral Hygiene (QC): 5 Bathing Location: L Arm, R Arm, L Upper Leg, R Upper Leg, L Lower Leg (including foot), R Lower Leg (including foot), Chest, Abdomen, Buttocks, Per ineal Area Shower/Bathe Self (QC): 3 Upper Body Dressing (QC): 4 Lower Body Dressing (QC): 2 On/Off Footwear (QC): 3 Toileting Hygiene (QC): 1 Toilet Transfer (QC): 1 Assessment/Plan Assessment and Plan Assess & Plan/Chief Complaint Assessment: 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 and subsequent neurological deficits Lumbar L4-L5 subarticular recess narrowing B/L Left-sided weakness Hepatic Hemangioma Systolic Heart Failure LFT elevation LBBB Previous hypotension Obesity CAD Dementia/cognitive impairment GERD PUD PVD Diabetic polyneuropathy Progressive weakness High risk of falling Gait disturbance Spasticity T2DM Constipation Edema HTN Paroxysmal A-fib Thrombocytopenia Urinary Retention Status post UTI (resolved) BAM on CPAP Cystoscopy on 02/18/2021 Plan: Aggressive PT, OT, and speech therapy Order basic lab work in the morning Review records, talk to his family members as they are more in tune with his medical condition then the patient himself Neurology follow up Consult Dr. Rubio for A. fib 02/11/2021: Supportive care Dr. Rubio consult Poor memory recall noted 02/12/2021: Incontinence care Aggressive therapy 02/13/2021: Incontinence care Aggressive therapy 02/14/2021: Attempt condom catheter due to incontinence Monitor for retention Dr. Welsh consult 02/15/2021: Appreciate urology management Aggressive therapy Send records to [facility] 02/16/2021: Supportive care Send records to [facility] from [facility]'s Continue aggressive treatment Cystoscopy tomorrow 02/17/2021: Cystoscopy tomorrow Bowel evacuation 02/18/2021: Cystoscopy Appreciate urology (1) Cervical spinal cord compression (2) Atrial fibrillation (3) Anticoagulation adequate with anticoagulant therapy (4) Urinary retention CARMELLA ESTRADA DO Feb 18, 2021 08:13
[2021-02-18] MEDS: SENNA W/DOCUSATE (SENOKOT S) TABLET PO SCH ×2 (08:15→21:27)
[2021-02-18] MEDS: FAMOTIDINE 20 MG (PEPCID) TABLET PO SCH (08:15)
[2021-02-18] MEDS: polyethylene glycoL POWDER 17 GM (MIRALAX) PACK PO SCH ×2 (08:16→21:27)
[2021-02-18] MEDS: FUROSEMIDE 20 MG (LASIX) TAB PO SCH (08:16)
[2021-02-18] MEDS: CALCIUM CARB + VIT D 600 MG (CALCARB + D) TAB PO SCH (08:16)
[2021-02-18] MEDS: MAGNESIUM OXIDE (MAG-OX)400 MG TAB PO SCH (08:21)
[2021-02-18] MEDS: LOSARTAN 50 MG (COZAAR) TAB PO SCH (08:27)
[2021-02-18] MEDS: lisINopril 10 MG (PRINIVIL) TABLET PO SCH (08:27)
[2021-02-18] MEDS: DOCUSATE SODIUM 100 MG (COLACE) CAP PO SCH ×2 (08:27→21:26)
[2021-02-18] MEDS: APIXABAN 5 MG (ELIQUIS) TABLET PO SCH ×2 (08:27→21:20)
[2021-02-18] MEDS ORDERED: NON-FORMULARY MEDICATION 1 EA EA (Alogliptin Benzoate (Alogliptin) 12.5 MG) PO SCH (09:00)
[2021-02-18] MEDS ORDERED: NON-FORMULARY MEDICATION 1 EA EA (Famotidine 40 MG) PO SCH (09:00)
[2021-02-18] MEDS ORDERED: NON-FORMULARY MEDICATION 1 EA EA (Potassium Chloride 10 MEQ) PO SCH (09:00)
[2021-02-18 09:53] VITALS: BP 122/58
[2021-02-18] MEDS: meTOprolol SUCCINATE 100 MG (TOPROL XL) TAB PO SCH (09:54)
--- NOTE | 2021-02-18 10:54 | Physical Therapy Daily Note ---
PT Daily Note-Current Subjective Patient in bed pre tx, agrees to PT, has no complaints of pain. Will be co- treating with OT due to poor patient mobility, strength, endurance, coordinate UE and LE with activity, safety and reduce risk of falls. Appearance Patient in bed post tx, will continue with OT. Mental Status Patient Orientation: Person, Place, Situation Transfers SCALE: Activities may be completed with or without assistive devices. 5-Bvbkkzwnlf-bkushij completes the activity by him/herself with no assistance from a helper. 5-Set-up or Clean-up Assistance-helper sets up or cleans up; patient completes activity. [place] assists only prior to or following the activity. 4-Supervision or Touching Assistance-helper provides verbal cues and/or touching/steadying and/or contact guard assistance as patient completes activity. Assistance may be provided throughout the activity or intermittently. 3-Partial/Moderate Assistance-helper does LESS THAN HALF the effort. [place] lifts, holds or supports trunk or limbs, but provides less than half the effort. 2-Substantial/Maximal Assistance-helper does MORE THAN HALF the effort. [place] lifts or holds trunk or limbs and provides more than half the effort. 9-Qkbumscpj-xzwoom does ALL the effort. Patient does none of the effort to complete the activity. Or, the assistance of 2 or more helpers is required for the patient to complete the activity. If activity was not attempted, code reason: 7-Patient Refused. 9-Not Applicable-not attempted and the patient did not perform the activity before the current illness, exacerbation or injury. 10-Not Attempted due to Environmental Limitations-(lack of equipment, weather restraints, etc.). 88-Not Attempted due to Medical Conditions or Safety Concerns. Roll Left & Right (QC): 3 Chair/Pqq-vd-Ethhb Xfer(QC): 1 At the beginning of tx it is noticed patient has had a large BM, patient has to roll from side to side 4-[address] for cleaning and changing sheets and to place ck sling. BM has gotten into his bandage on his bottom. Patient is then hoyered to shower chair and he is rolled into his shower, showers, rolled back to bedside, ck to bed and dressed. Treatments PT performed rolling, transfers, positioning and safety during activity and shower, OT performed cleaning, dressing, bathing, UE positioning and safety during activity. 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 Goals Time Frame: Mar 03, 2021 Roll Left & Right (QC): 4 Sit to Lying (QC): 4 Lying-Sitting on Side/Bed(QC): 4 Sit to Stand (QC): 88 Chair/Ogp-zj-Nktsh Xfer(QC): 88 Toilet Transfer (QC): 88 Car Transfer (QC): 88 Does the Patient Walk: No and Walking Goal NOT indicated Walk 10 feet (QC): 88 Walk 50ft with 2 Turns (QC): 88 Walk 150 ft (QC): 88 Walking 10ft on Uneven Surface: 88 1 Step (curb) (QC): 88 4 Steps (QC): 88 12 Steps (QC): 88 Picking up an Object (QC): 88 Wheel 50 feet with 2 turns (QC: 6 Wheel 150 feet: 6 PT Plan Problem List Problem List: Activity Tolerance, Functional Strength, Safety, Balance, Gait, Transfer, Bed Mobility, ROM Treatment/Plan Treatment Plan: Continue Plan of Care Treatment Plan: Bed Mobility, Education, Functional Activity Jorge, Functional Strength, Group Therapy, Gait, Safety, Therapeutic Exercise, Transfers Treatment Duration: Mar 03, 2021 Frequency: At least 5 of 7 days/Wk (IRF) Estimated Hrs Per Day: 1.5 hours per day Patient and/or Family Agrees t: Yes Safety Risks/Education Patient Education: Transfer Techniques, Correct Positioning, Safety Issues Teaching Recipient: Patient Teaching Methods: Demonstration, Discussion Response to Teaching: Reinforcement Needed Time/GCodes Time In: 1000 Time Out: 1100 Total Billed Treatment Time: 60 Total Billed Treatment 1 visit FA 60' co-treated for 60' TARA MCCOY PT Feb 18, 2021 10:54
--- NOTE | 2021-02-18 10:56 | Occupational Ther Daily Note ---
OT Current Status-Daily Note Subjective (1st session)Pt. alert in bed upon entry. Pt. pleasant, no c/o pain, agrees to therapy. (2nd session) Pt. alert in bed upon entry. Pt. no c/o pain, agrees to therapy. Mental Status/Objective Patient Orientation: Person, Place, Time, Situation ADL-Treatment 1st visit ([id number]): Co-Treat with PT ([id number]) 2 clinicians required for safety and instruction.PT focusing on transfers while OT focusing on ADLs and bed mobility. Pt. had BM in bed, required cleansing before ck lift. Pt. able to roll to L in bed, required assist to hold for longer period of time so buttocks could be cleansed. Pt. able to roll to R requiring more assist to roll and hold while buttocks cleaned from that side. Once completely cleansed from BM ck pad placed rolling two more times to ea. side. Pt. ck lifted to shower chair with cut out. Pt. transported to shower in shower chair with cut out. Pt. able to perform cleansing required assist with B feet. Pt. able to dry self required assist with B feet. Pt. transported to room. Pt. ck lift out of shower chair with cut out to bed. While rolling to remove ck pad Pt. still having BM. Pt. was rolled to L and held while cleansed, then R to complete cleansing and remove ck pad. Nursing entered to check coccyx and apply Aleven patch to area of tailbone. Pt. lying in bed, call light/phone in reach. All needs met in room. Therapy Code Descriptions/Definitions Functional [place] Measure: 0=Not Assessed/NA 4=Minimal Assistance 1=Total Assistance 5=Supervision or Setup 2=Maximal Assistance 6=Modified [place] 3=Moderate Assistance 7=Complete IndependenceSCALE: Activities may be completed with or without assistive devices. 3-Gzepljbheh-fcygsvi completes the activity by him/herself with no assistance from a helper. 5-Set-up or Clean-up Assistance-helper sets up or cleans up; patient completes activity. [place] assists only prior to or following the activity. 4-Supervision or Touching Assistance-helper provides verbal cues and/or touching/steadying and/or contact guard assistance as patient completes acti vity. Assistance may be provided throughout the activity or intermittently. 3-Partial/Moderate Assistance-helper does LESS THAN HALF the effort. [place] lifts, holds or supports trunk or limbs, but provides less than half the effort. 2-Substantial/Maximal Assistance-helper does MORE THAN HALF the effort. [place] lifts or holds trunk or limbs and provides more than half the effort. 7-Peireqhlh-hkefoa does ALL the effort. Patient does none of the effort to complete the activity. Or, the assistance of 2 or more helpers is required for the patient to complete the activity. If activity was not attempted, code reason: 7-Patient Refused. 9-Not Applicable-not attempted and the patient did not perform the activity before the current illness, exacerbation or injury. 10-Not Attempted due to Environmental Limitations-(lack of equipment, weather restraints, etc.). 88-Not Attempted due to Medical Conditions or Safety Concerns. Bathing Location: L Arm, R Arm, L Upper Leg, R Upper Leg, Chest, Abdomen Shower/Bathe Self (QC): 2 On/Off Footwear: 2 Toileting Hygiene (QC): 1 Toilet Transfer (QC): 1 Other Treatment 2nd visit ([id number]) Co-Treat with PT ([id number]) 2 clinicians required for safety and instruction. PT focusing on LE strengthening, sitting balance, and bed mobility while OT focusing on L shoulder ROM, memory, and UE strengthening. Pt. able to perform UE ex in all planes 15 reps 2 sets with light resistance while seated in bed. Pt. displayed ability to recall 2 ex's performed with OT from previous sessions. PT requested Pt. sitting EOB with close SBA to CGA to maintain upright position, see PT note for progress. Pt. performed shoulder forward flexion exercises to 90* 15reps B UE. Pt laid down in bed, see PT note for progress. Pt. left in care of PT. All needs met in room. Education OT Patient Education: Correct positioning, Exercise program, Home exercise program Teaching Recipient: Patient, Family Teaching Methods: Demonstration, Handout, Discussion Response to Teaching: Verbalize Understanding, Return Demonstration OT Short Term Goals Short Term Goals Time Frame: Feb 24, 2021 Eatin Oral hygiene: 4 Toileting hygiene: 2 Shower/bathe self: 2 Upper body dressin Lower body dressin Putting on/taking off footwear: 3 OT Half-Way Goals Fiberglass Luggage Molder Goals Time Frame: Mar 04, 2021 Eating (QC): 6 Oral Hygiene (QC): 5 Toileting Hygiene (QC): 4 Shower/Bathe Self (QC): 3 Upper Body Dressing (QC): 4 Lower Body Dressing (QC): 3 On/Off Footwear (QC): 4 1=Demonstrate adherence to instructed precautions during ADL tasks. 2=Patient will verbalize/demonstrate understanding of assistive devices/modifications for ADL. 3=Patient will improve strength/tolerance for activity to enable patient to perform ADL's. OT Education/Plan Problem List/Assessment Assessment: Decreased Activ Tolerance, Decreased UE Strength, Dependent Transfers, Impaired Bed Mobility, Impaired Coordination, Impaired Funct Balance, Impaired Self-Care Skills Discharge Recommendations Plan/Recommendations: Continue POC Treatment Plan/Plan of Care Patient would benefit from OT for education, treatment and training to promote independence in ADL's, mobility, safety and/or upper extremity function for ADL's. Plan of Care: ADL Retraining, Functional Mobility, Group Exercise/Act as Ind, UE Funct Exercise/Act, W/C Management Training Treatment Duration: Mar 04, 2021 Frequency: At least 5 of 7 days/Wk (IRF) Estimated Hrs Per Day: 1.5 hours per day Agreement: Yes Rehab Potential: Guarded Time/GCodes Start Time: 10:00 (1250) Stop Time: 11:00 (1320) Total Time Billed (hr/min): 90 Billed Treatment Time 1 visit(5425-2064)-ADL 4 (60 min) co-treat with PT [id number] 2nd visit (5661-3398)- Ex 2 (30 min) co-treat with PT [id number] individual [id number] BALTAZAR CÁRDENAS Feb 18, 2021 10:56
--- NOTE | 2021-02-18 12:07 | Progress Note - Cardiology ---
Cardiology SOAP Progress Note Subjective: No new c/o Continue LUE and LLE weakness Objective: I&O/Vital Signs 02/22/21 02/22/21 08:16 08:30 Temp 36.2 Pulse 80 Resp 18 B/P (MAP) 113/79 (90) Pulse Ox 98 O2 Delivery Room Air Room Air Constitutional: AAO x 3, well-developed, well-nourished Respiratory: No accessory muscle use, No respiratory distress; chest expansion is symmetric, chest is bilaterally symmetric, other (prolonged exp phase) Cardiovascular: irregularly irregular; No JVD; S1 and S2 Gastrointestional: No tender; soft, round, audible bowel sounds Extremities: other (mild bilat LE swelling) Neurologic/Psychiatric: other (LUE and LLE 4/5) Skin: No rash on exposed areas, No ulcerations on exposed areas Results/Procedures: Labs Laboratory Tests 02/21/21 15:17: Glucometer 164H 02/21/21 20:06: Glucometer 178H 02/22/21 05:58: Glucometer 141H 02/22/21 11:19: Glucometer 169H A/P: Assessment: Cervical myelopathy with LUE and LLE weakness - management per medical services Chronic a-fib - OAC with Eliquis HTN - controlled HLD - statin tx Cardiomyopathy - undetermined length of time - echocardiogram from 02-04-21 at [facility] by Dr. Michaels showed LVEF 25%. 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
--- NOTE | 2021-02-18 12:13 | Progress Note-Pre Operative ---
Pre-Operative Progress Note H&P Reviewed The H&P was reviewed, patient examined and no changes noted. Date Seen by Provider: Feb 18, 2021 Time Seen by Provider: 12:13 Date H&P Reviewed: Feb 18, 2021 Time H&P Reviewed: 12:13 Pre-Operative Diagnosis: YUAN Rogers MD Feb 18, 2021 12:13
--- NOTE | 2021-02-18 12:14 | Progress Note-Post Operative ---
Post-Operative Progess Note Surgeon (s)/Grain Broker (s) Surgeon YUAN NICHOLSON MD Grain Broker: NONE Pre-Operative Diagnosis retention Post-Operative Diagnosis SAME Procedure & Operative Findings Date of Procedure 02/18/21 Procedure Performed/Findings CYSTO Anesthesia Type LOCAL Estimated Blood Loss Estimated blood loss (mL): NONE Specimens/Packing Specimens Removed NONE Packing: NONE YUAN NICHOLSON MD Feb 18, 2021 12:14
--- NOTE | 2021-02-18 13:26 | Physical Therapy Daily Note ---
PT Daily Note-Current Subjective Patient in bed pre tx, agrees to PT, has no complaints of pain. Will be co- treating with OT for part of tx due to poor patient mobility, strength, endurance, coordinate UE and LE during activity, safety and reduce risk of falls. Appearance Patient in bed post tx with nurse call, phone, tray, all needs met. Mental Status Patient Orientation: Person, Place, Situation Transfers SCALE: Activities may be completed with or without assistive devices. 6-Xlgljxllyo-qmyboqp completes the activity by him/herself with no assistance from a helper. 5-Set-up or Clean-up Assistance-helper sets up or cleans up; patient completes activity. [place] assists only prior to or following the activity. 4-Supervision or Touching Assistance-helper provides verbal cues and/or touching/steadying and/or contact guard assistance as patient completes activity. Assistance may be provided throughout the activity or intermittently. 3-Partial/Moderate Assistance-helper does LESS THAN HALF the effort. [place] lifts, holds or supports trunk or limbs, but provides less than half the effort. 2-Substantial/Maximal Assistance-helper does MORE THAN HALF the effort. [place] lifts or holds trunk or limbs and provides more than half the effort. 2-Kzikvuhcy-owagod does ALL the effort. Patient does none of the effort to complete the activity. Or, the assistance of 2 or more helpers is required for the patient to complete the activity. If activity was not attempted, code reason: 7-Patient Refused. 9-Not Applicable-not attempted and the patient did not perform the activity before the current illness, exacerbation or injury. 10-Not Attempted due to Environmental Limitations-(lack of equipment, weather restraints, etc.). 88-Not Attempted due to Medical Conditions or Safety Concerns. Roll Left & Right (QC): 3 Sit to Lying (QC): 1 Lying to Sitting/Side of Bed(Q: 2 Patient sits to the side of the bed, is slightly dizzy but it passes in a few moments. Patient practices sitting balance exercises before laying back down with assist of 2. Exercises Supine Ex: Ankle pumps, Quad Set, Glut sets Supine Reps: 20 Seated Therapy Exercises: Long arc quads Seated Reps: 20 sitting limits of stability training, leaning side to side x5 each side, back kang and then coming back forward to work on abs and trunk strength x10 Treatments PT worked on rolling, supine <-> sit, LE strengthening and balance, OT worked on supine <-> sit, sitting balance, UE positioning and safety during activity. Assessment Current Status: Fair Progress improved sitting balance PT Short Term Goals Short Term Goals Time Frame: Feb 17, 2021 Roll Left & Right: 3 Sit to lyin Lying to sitting on side of be: 3 Wheel 50ft w/2 turns: 4 Wheel 150 feet: 4 PT Skilled Nursing Goals Skilled Nursing Goals PT Skilled Nursing Goals Time Frame: Mar 03, 2021 Roll Left & Right (QC): 4 Sit to Lying (QC): 4 Lying-Sitting on Side/Bed(QC): 4 Sit to Stand (QC): 88 Chair/Evq-jt-Clbrq Xfer(QC): 88 Toilet Transfer (QC): 88 Car Transfer (QC): 88 Does the Patient Walk: No and Walking Goal NOT indicated Walk 10 feet (QC): 88 Walk 50ft with 2 Turns (QC): 88 Walk 150 ft (QC): 88 Walking 10ft on Uneven Surface: 88 1 Step (curb) (QC): 88 4 Steps (QC): 88 12 Steps (QC): 88 Picking up an Object (QC): 88 Wheel 50 feet with 2 turns (QC: 6 Wheel 150 feet: 6 PT Plan Problem List Problem List: Activity Tolerance, Functional Strength, Safety, Balance, Gait, Transfer, Bed Mobility, ROM Treatment/Plan Treatment Plan: Continue Plan of Care Treatment Plan: Bed Mobility, Education, Functional Activity Jorge, Functional Strength, Group Therapy, Gait, Safety, Therapeutic Exercise, Transfers Treatment Duration: Mar 03, 2021 Frequency: At least 5 of 7 days/Wk (IRF) Estimated Hrs Per Day: 1.5 hours per day Patient and/or Family Agrees t: Yes Safety Risks/Education Patient Education: Correct Positioning, Safety Issues Teaching Recipient: Patient Teaching Methods: Demonstration, Discussion Response to Teaching: Reinforcement Needed Time/GCodes Time In: 1300 Time Out: 1330 Total Billed Treatment Time: 30 Total Billed Treatment 1 visit EX 15' FA 15' co-treated with OT from [id number] TARA MCCOY PT Feb 18, 2021 13:26
--- NOTE | 2021-02-18 16:19 | Progress Note - Cardiology ---
Cardiology SOAP Progress Note Subjective: No cp or palp or syncope or shortness of breath No n/v/d Gen malaise and weakness present Objective: I&O/Vital Signs 02/18/21 02/18/21 02/18/21 07:45 09:38 09:53 Temp 36.2 Pulse 71 68 Resp 18 B/P (MAP) 109/57 (74) 122/58 (79) Pulse Ox 96 O2 Delivery Room Air Room Air 02/18/21 00:00 Intake Total 650 ml Output Total 750 ml Balance -100 ml Constitutional: AAO x 3, well-developed, well-nourished Respiratory: No accessory muscle use, No respiratory distress; chest expansion is symmetric, chest is bilaterally symmetric, other (prolonged exp phase) Cardiovascular: irregularly irregular; No JVD; S1 and S2 Gastrointestional: No tender; soft, round, audible bowel sounds Extremities: other (mild bilat LE swelling) Neurologic/Psychiatric: other (LUE and LLE 4/5) Skin: No rash on exposed areas, No ulcerations on exposed areas Results/Procedures: Labs Laboratory Tests 02/17/21 21:01: Glucometer 179H 02/18/21 05:48: Glucometer 141H 02/18/21 11:13: Glucometer 194H 02/18/21 15:41: Glucometer 138H A/P: Assessment: Cervical myelopathy with LUE and LLE weakness - management per medical services Chronic a-fib - OAC with Eliquis HTN - controlled HLD - statin tx Cardiomyopathy - undetermined length of time - echocardiogram from 02-04-[address] [facility] by Dr. Michaels showed LVEF 25%. 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
[2021-02-18] MEDS: TAMSULOSIN 0.4 MG (FLOMAX) CAP PO SCH (18:15)
[2021-02-18] MEDS: DIGOXIN 0.125 MG (LANOXIN) TAB PO SCH (18:15)
[2021-02-18 19:43] VITALS: BP 106/55
[2021-02-18] MEDS: SIMvastatin 40 MG (ZOCOR) TAB PO SCH (21:15)
--- NOTE | 2021-02-18 21:52 | OPERATIVE REPORT ---
DATE OF SERVICE: 02/18/2021 PREOPERATIVE DIAGNOSIS: Urinary retention. POSTOPERATIVE DIAGNOSIS: Urinary retention. OPERATION PERFORMED: Cystoscopy. SURGEON: Te Nicholson MD ANESTHESIA: Local. COMPLICATIONS: None. DESCRIPTION OF PROCEDURE: With the patient supine in his bed after removing the Frausto catheter, genitalia were prepped and draped in the usual sterile fashion. Urethra was infiltrated with 2% lidocaine jelly. Penile clamp was applied. This was then removed, and a flexible cystoscope was introduced under vision. The anterior urethra was normal. The prostate was fairly well resected with some residual, but essentially an open channel. Bladder neck was open. Bladder revealed some trabeculations. No foreign body, bladder tumor or stone visualized. Cystoscopy was confirmed in an antegrade fashion and the cystoscope was removed. The patient tolerated the procedure and anesthesia well, remained in his bed in stable condition. PLAN: Trial of voiding. Follow bladder scan postvoid residual daily and p.r.n. Straight cath if over 400 mL or uncomfortable. Job ID: [id number] DocumentID: [id number] Dictated Date: 02/18/2021 12:17:33 Cloth Bin Packer Date: 02/18/2021 21:51:34 Dictated By: TE NICHOLSON MD
--- NOTE | 2021-02-19 05:55 | PM&R Progress Note ---
Subjective HPI/CC On Admission Date Seen by Provider: Feb 19, 2021 Time Seen by Provider: 05:45 Subjective/Events-last exam 02/19/2021: Patient had an uneventful night Denies any new issues Working on bladder retraining Check meds and labs 02/18/2021: Patient doing well Has no complaints Cystoscopy to be done today by urology No pain is reported Bowel evacuation ordered 02/17/2021: Patient doing really well Bowels moved yesterday All records sent to [facility] Has no rectal tone May need a suppository to evacuate bowels and treated like a paraplegic Bottom wound appears to be very superficial on a cushion 02/16/2021: Pt doing well No issues Bowels moved yesterday and fecal incontinence Frausto cath in Cystoscopy by Dr. Welsh on Sunday02/15/2021: Pt doing a little better Frausto required and Dr. Welsh consulted Spot checks of oxygen without CPAP during the night are okay Still a Coleen-lift 02/14/2021: Pt doing well Condom catheter will be attempted Platelet count 108 Wound looks good BP and blood sugar good No pain Bowels are moving 02/13/2021: Patient doing well Has no needs Bowels are moving well No issues Sugars are reviewed 02/12/2021: Patient doing well Incontinent of bowel and bladder a lot Able to move himself and turn himself in bed Check meds and labs Cognitive deficit could preclude independent living 02/11/2021: Patient doing pretty well Dr. Rubio will be consulted Noncompliant with CPAP machine Oxygen was good last night at 90% Wound care consulted Dr. Pyle Sugars good Bowels are a bit loose and he does have fecal incontinence Review of Systems General: Fatigue, Malaise Neurological: Weakness, Incoordination Objective Exam Vital Signs Vital Signs Date Time Temp Pulse Resp B/P (MAP) Pulse Ox O2 Delivery O2 Flow Rate FiO2 02/19/21 08:35 Room Air 02/19/21 07:12 36.8 71 16 116/68 (84) 97 Capillary Refill : General Appearance: No Apparent Distress, WD/WN, Chronically ill HEENT: PERRL/EOMI, Normal ENT Inspection, Pharynx Normal Neck: Full Range of Motion, Normal Inspection, Non Tender, Supple, Carotid Bruit Respiratory: Chest Non Tender, Lungs Clear, Normal Breath Sounds, No Accessory Muscle Use, No Respiratory Distress Cardiovascular: Regular Rate, Rhythm, No Edema, No Gallop, No JVD, No Murmur, Normal Peripheral Pulses Gastrointestinal: Normal Bowel Sounds, No Organomegaly, No Pulsatile Mass, Non Tender, Soft Back: Normal Inspection, No CVA Tenderness, No Vertebral Tenderness Extremity: Normal Capillary Refill, Normal Inspection, Normal Range of Motion, Non Tender, No Calf Tenderness, No Pedal Edema Neurologic/Psychiatric: Alert, Oriented x3, Normal 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 FIM Transfers Therapy Code Descriptions/Definitions Functional [place] Measure: 0=Not Assessed/NA 4=Minimal Assistance 1=Total Assistance 5=Supervision or Setup 2=Maximal Assistance 6=Modified [place] 3=Moderate Assistance 7=Complete IndependenceSCALE: Activities may be completed with or without assistive devices. 6-Tsppjncato-oouwpwt completes the activity by him/herself with no assistance from a helper. 5-Set-up or Clean-up Assistance-helper sets up or cleans up; patient completes activity. [place] assists only prior to or following the activity. 4-Supervision or Touching Assistance-helper provides verbal cues and/or touching/steadying and/or contact guard assistance as patient completes activity. Assistance may be provided throughout the activity or intermittently. 3-Partial/Moderate Assistance-helper does LESS THAN HALF the effort. [place] lifts, holds or supports trunk or limbs, but provides less than half the effort. 2-Substantial/Maximal Assistance-helper does MORE THAN HALF the effort. [place] lifts or holds trunk or limbs and provides more than half the effort. 7-Auwggmrmr-mnxuhk does ALL the effort. Patient does none of the effort to complete the activity. Or, the assistance of 2 or more helpers is required for the patient to complete the activity. If activity was not attempted, code reason: 7-Patient Refused. 9-Not Applicable-not attempted and the patient did not perform the activity before the current illness, exacerbation or injury. 10-Not Attempted due to Environmental Limitations-(lack of equipment, weather restraints, etc.). 88-Not Attempted due to Medical Conditions or Safety Concerns. Roll Left to Right (QC): 3 Sit to Lying (QC): 1 Sit to Stand (QC): 1 Chair/Adr-ix-Owvjs Xfer(QC): 1 Car Transfer (QC): 88 Gait Training Does the Patient Walk?: No and Walking Goal NOT indicated Walk 10 feet (QC): 88 Walk 50 ft with 2 Turns(QC): 88 Walk 150 ft (QC): 88 Walking 10ft/uneven surface-QC: 88 Wheelchair Training Does the Pt Use a Wheelchair?: Yes Distance: 100'x2 Wheel 50 ft with 2 turns (QC): 3 Wheel 150 ft (QC): 3 Type of Wheelchair: Manual Stair Training 1 Step (curb) (QC): 88 4 Steps (QC): 88 12 Steps (QC): 88 Balance Picking up an Object (QC): 88 ADL-Treatment Eating (QC): 4 Oral Hygiene (QC): 5 Bathing Location: L Arm, R Arm, L Upper Leg, R Upper Leg, Chest, Abdomen Shower/Bathe Self (QC): 2 Upper Body Dressing (QC): 4 Lower Body Dressing (QC): 2 On/Off Footwear (QC): 2 Toileting Hygiene (QC): 1 Toilet Transfer (QC): 1 Assessment/Plan Assessment and Plan Assess & Plan/Chief Complaint Assessment: 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 and subsequent neurological deficits Lumbar L4-L5 subarticular recess narrowing B/L Left-sided weakness Hepatic Hemangioma Systolic Heart Failure LFT elevation LBBB Previous hypotension Obesity CAD Dementia/cognitive impairment GERD PUD PVD Diabetic polyneuropathy Progressive weakness High risk of falling Gait disturbance Spasticity T2DM Constipation Edema HTN Paroxysmal A-fib Thrombocytopenia Urinary Retention Status post UTI (resolved) BAM on CPAP Cystoscopy on 02/18/2021 Plan: Aggressive PT, OT, and speech therapy Order basic lab work in the morning Review records, talk to his family members as they are more in tune with his medical condition then the patient himself Neurology follow up Consult Dr. Rubio for A. fib 02/11/2021: Supportive care Dr. Rubio consult Poor memory recall noted 02/12/2021: Incontinence care Aggressive therapy 02/13/2021: Incontinence care Aggressive therapy 02/14/2021: Attempt condom catheter due to incontinence Monitor for retention Dr. Welsh consult 02/15/2021: Appreciate urology management Aggressive therapy Send records to [facility] 02/16/2021: Supportive care Send records to [facility] Continue aggressive treatment Cystoscopy tomorrow 02/17/2021: Cystoscopy tomorrow Bowel evacuation 02/18/2021: Cystoscopy Appreciate urology 02/19/2021: Supportive care Urology appreciated (1) Cervical spinal cord compression (2) Atrial fibrillation (3) Anticoagulation adequate with anticoagulant therapy (4) Urinary retention CARMELLA ESTRADA DO Feb 19, 2021 05:55
[2021-02-19] MEDS: inSUlin ASPART (NovoLOG) 1 UNIT/0.01 ML (CHARGE PER UNIT) SC SCH ×4 (06:05→20:31)
[2021-02-19] MEDS: MULTIVIT W/MINERALS TAB (THERAGRAN M) PO SCH (06:26)
[2021-02-19] MEDS: KCL 10 MEQ TAB (MICRO K) PO SCH (06:26)
[2021-02-19] MEDS: BETHANECHOL 10 MG (URECHOLINE) TAB PO SCH ×4 (06:26→21:04)
[2021-02-19] MEDS: LEVOTHYROXINE 100 MCG (LEVOTHROID) TAB PO SCH (06:26)
[2021-02-19 07:12] VITALS: BP 116/68
[2021-02-19] MEDS: LOSARTAN 50 MG (COZAAR) TAB PO SCH (08:27)
[2021-02-19] MEDS: FAMOTIDINE 20 MG (PEPCID) TABLET PO SCH (08:27)
[2021-02-19] MEDS: CALCIUM CARB + VIT D 600 MG (CALCARB + D) TAB PO SCH (08:27)
[2021-02-19] MEDS: OMEGA 3 (FISH OIL) 1000 MG CAP PO SCH ×2 (08:28→21:04)
[2021-02-19] MEDS: FUROSEMIDE 20 MG (LASIX) TAB PO SCH (08:28)
[2021-02-19] MEDS: MAGNESIUM OXIDE (MAG-OX)400 MG TAB PO SCH (08:28)
[2021-02-19] MEDS: FERROUS SULF 325 MG (IRON) TAB PO SCH (08:28)
[2021-02-19] MEDS: APIXABAN 5 MG (ELIQUIS) TABLET PO SCH ×2 (08:28→21:04)
[2021-02-19] MEDS: lisINopril 10 MG (PRINIVIL) TABLET PO SCH (08:28)
[2021-02-19] MEDS: DOCUSATE SODIUM 100 MG (COLACE) CAP PO SCH ×2 (08:29→21:10)
[2021-02-19] MEDS: SENNA W/DOCUSATE (SENOKOT S) TABLET PO SCH ×2 (08:29→21:10)
[2021-02-19] MEDS: meTOprolol SUCCINATE 100 MG (TOPROL XL) TAB PO SCH (08:29)
[2021-02-19] MEDS: polyethylene glycoL POWDER 17 GM (MIRALAX) PACK PO SCH ×2 (08:29→21:10)
--- NOTE | 2021-02-19 14:22 | Physical Therapy Daily Note ---
PT Daily Note-Current Subjective Pt agreeable to exercise and up to chair. Transfers SCALE: Activities may be completed with or without assistive devices. 6-Dajijmaync-ikqherx completes the activity by him/herself with no assistance from a helper. 5-Set-up or Clean-up Assistance-helper sets up or cleans up; patient completes activity. [place] assists only prior to or following the activity. 4-Supervision or Touching Assistance-helper provides verbal cues and/or touching/steadying and/or contact guard assistance as patient completes activity. Assistance may be provided throughout the activity or intermittently. 3-Partial/Moderate Assistance-helper does LESS THAN HALF the effort. [place] lifts, holds or supports trunk or limbs, but provides less than half the effort. 2-Substantial/Maximal Assistance-helper does MORE THAN HALF the effort. [place] lifts or holds trunk or limbs and provides more than half the effort. 6-Hqffawqzm-tgjjht does ALL the effort. Patient does none of the effort to complete the activity. Or, the assistance of 2 or more helpers is required for the patient to complete the activity. If activity was not attempted, code reason: 7-Patient Refused. 9-Not Applicable-not attempted and the patient did not perform the activity before the current illness, exacerbation or injury. 10-Not Attempted due to Environmental Limitations-(lack of equipment, weather restraints, etc.). 88-Not Attempted due to Medical Conditions or Safety Concerns. Transferred bed to w/c and back both via ck lift. Pt up in chair x 2 hours during which time he self propelled around his room. Exercises Supine Ex: Bridging, Ankle pumps, Quad Set, Rolling, Glut sets, Lower trunk rotation, Heel Slides, Scooting, Straight leg raise, Hip abd/add Supine Reps: 15 needed active assist for all LE exercises Assessment Pt (L) LE remains weak as compared to the (R). Insufficient strength for standing at this time. Pt will benefit from continued therapy. PT Short Term Goals Short Term Goals Time Frame: Feb 17, 2021 Roll Left & Right: 3 Sit to lyin Lying to sitting on side of be: 3 Wheel 50ft w/2 turns: 4 Wheel 150 feet: 4 PT [place] Goals [place] Goals PT [place] Goals Time Frame: Mar 03, 2021 Roll Left & Right (QC): 4 Sit to Lying (QC): 4 Lying-Sitting on Side/Bed(QC): 4 Sit to Stand (QC): 88 Chair/[place] Xfer(QC): 88 Toilet Transfer (QC): 88 Car Transfer (QC): 88 Does the Patient Walk: No and Walking Goal NOT indicated Walk 10 feet (QC): 88 Walk 50ft with 2 Turns (QC): 88 Walk 150 ft (QC): 88 Walking 10ft on Uneven Surface: 88 1 Step (curb) (QC): 88 4 Steps (QC): 88 12 Steps (QC): 88 Picking up an Object (QC): 88 Wheel 50 feet with 2 turns (QC: 6 Wheel 150 feet: 6 PT Plan Treatment/Plan Treatment Plan: Continue Plan of Care Treatment Plan: Bed Mobility, Education, Functional Activity Jorge, Functional Strength, Group Therapy, Gait, Safety, Therapeutic Exercise, Transfers Treatment Duration: Mar 03, 2021 Frequency: At least 5 of 7 days/Wk (IRF) Estimated Hrs Per Day: 1.5 hours per day Patient and/or Family Agrees t: Yes Time/GCodes Time In: 1055 Time Out: 1115 Total Billed Treatment Time: 20 Total Billed Treatment visit, exercise 20 min CRUZ VIVAS PT Feb 19, 2021 14:21
[2021-02-19] MEDS: TAMSULOSIN 0.4 MG (FLOMAX) CAP PO SCH (18:37)
[2021-02-19] MEDS: DIGOXIN 0.125 MG (LANOXIN) TAB PO SCH (18:37)
[2021-02-19 19:51] VITALS: BP 120/62
[2021-02-19] MEDS: SIMvastatin 40 MG (ZOCOR) TAB PO SCH (21:04)
[2021-02-19] MEDS: MELATONIN 3 MG TABLET PO PRN (21:06)
[2021-02-20] MEDS: inSUlin ASPART (NovoLOG) 1 UNIT/0.01 ML (CHARGE PER UNIT) SC SCH ×4 (06:00→20:51)
--- NOTE | 2021-02-20 06:13 | PM&R Progress Note ---
Subjective HPI/CC On Admission Date Seen by Provider: Feb 20, 2021 Time Seen by Provider: 06:20 Subjective/Events-last exam 02/20/2021: Patient has no new complaints today Denies any new issues No pain is reported Incontinence is an issue Fecal incontinence also an issue 02/19/2021: Patient had an uneventful night Denies any new issues Working on bladder retraining Check meds and labs 02/18/2021: Patient doing well Has no complaints Cystoscopy to be done today by urology No pain is reported Bowel evacuation ordered 02/17/2021: Patient doing really well Bowels moved yesterday All records sent to [facility] Has no rectal tone May need a suppository to evacuate bowels and treated like a paraplegic Bottom wound appears to be very superficial on a cushion 02/16/2021: Pt doing well No issues Bowels moved yesterday and fecal incontinence Frausto cath in Cystoscopy by Dr. Welsh on Sunday02/15/2021: Pt doing a little better Frausto required and Dr. Welsh consulted Spot checks of oxygen without CPAP during the night are okay Still a Coleen-lift 02/14/2021: Pt doing well Condom catheter will be attempted Platelet count 108 Wound looks good BP and blood sugar good No pain Bowels are moving 02/13/2021: Patient doing well Has no needs Bowels are moving well No issues Sugars are reviewed 02/12/2021: Patient doing well Incontinent of bowel and bladder a lot Able to move himself and turn himself in bed Check meds and labs Cognitive deficit could preclude independent living 02/11/2021: Patient doing pretty well Dr. Rubio will be consulted Noncompliant with CPAP machine Oxygen was good last night at 90% Wound care consulted Dr. Pyle Sugars good Bowels are a bit loose and he does have fecal incontinence Review of Systems Genitourinary: Incontinence Neurological: Weakness, Incoordination Objective Exam Vital Signs Vital Signs Date Time Temp Pulse Resp B/P (MAP) Pulse Ox O2 Delivery O2 Flow Rate FiO2 02/20/21 09:00 Room Air 02/20/21 07:03 36.2 65 18 117/58 (77) 98 Capillary Refill : General Appearance: No Apparent Distress, WD/WN, Chronically ill HEENT: PERRL/EOMI, Normal ENT Inspection, Pharynx Normal Neck: Full Range of Motion, Normal Inspection, Non Tender, Supple, Carotid Bruit Respiratory: Chest Non Tender, Lungs Clear, Normal Breath Sounds, No Accessory Muscle Use, No Respiratory Distress Cardiovascular: Regular Rate, Rhythm, No Edema, No Gallop, No JVD, No Murmur, Normal Peripheral Pulses Gastrointestinal: Normal Bowel Sounds, No Organomegaly, No Pulsatile Mass, Non Tender, Soft Back: Normal Inspection, No CVA Tenderness, No Vertebral Tenderness Extremity: Normal Capillary Refill, Normal Inspection, Normal Range of Motion, Non Tender, No Calf Tenderness, No Pedal Edema Neurologic/Psychiatric: Alert, Oriented x3, Normal 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 FIM Transfers Therapy Code Descriptions/Definitions Functional [place] Measure: 0=Not Assessed/NA 4=Minimal Assistance 1=Total Assistance 5=Supervision or Setup 2=Maximal Assistance 6=Modified [place] 3=Moderate Assistance 7=Complete IndependenceSCALE: Activities may be completed with or without assistive devices. 2-Lkdchmwgzn-urkrgns completes the activity by him/herself with no assistance from a helper. 5-Set-up or Clean-up Assistance-helper sets up or cleans up; patient completes activity. [place] assists only prior to or following the activity. 4-Supervision or Touching Assistance-helper provides verbal cues and/or touching/steadying and/or contact guard assistance as patient completes activity. Assistance may be provided throughout the activity or intermittently. 3-Partial/Moderate Assistance-helper does LESS THAN HALF the effort. [place] lifts, holds or supports trunk or limbs, but provides less than half the effort. 2-Substantial/Maximal Assistance-helper does MORE THAN HALF the effort. [place] lifts or holds trunk or limbs and provides more than half the effort. 7-Mkxbhkmzw-vqfvig does ALL the effort. Patient does none of the effort to complete the activity. Or, the assistance of 2 or more helpers is required for the patient to complete the activity. If activity was not attempted, code reason: 7-Patient Refused. 9-Not Applicable-not attempted and the patient did not perform the activity before the current illness, exacerbation or injury. 10-Not Attempted due to Environmental Limitations-(lack of equipment, weather restraints, etc.). 88-Not Attempted due to Medical Conditions or Safety Concerns. Roll Left to Right (QC): 3 Sit to Lying (QC): 1 Sit to Stand (QC): 1 Chair/Vsc-ps-Xptfx Xfer(QC): 1 Car Transfer (QC): 88 Gait Training Does the Patient Walk?: No and Walking Goal NOT indicated Walk 10 feet (QC): 88 Walk 50 ft with 2 Turns(QC): 88 Walk 150 ft (QC): 88 Walking 10ft/uneven surface-QC: 88 Wheelchair Training Does the Pt Use a Wheelchair?: Yes Distance: 100'x2 Wheel 50 ft with 2 turns (QC): 3 Wheel 150 ft (QC): 3 Type of Wheelchair: Manual Stair Training 1 Step (curb) (QC): 88 4 Steps (QC): 88 12 Steps (QC): 88 Balance Picking up an Object (QC): 88 ADL-Treatment Eating (QC): 4 Oral Hygiene (QC): 5 Bathing Location: L Arm, R Arm, L Upper Leg, R Upper Leg, Chest, Abdomen Shower/Bathe Self (QC): 2 Upper Body Dressing (QC): 4 Lower Body Dressing (QC): 2 On/Off Footwear (QC): 2 Toileting Hygiene (QC): 1 Toilet Transfer (QC): 1 Assessment/Plan Assessment and Plan Assess & Plan/Chief Complaint Assessment: 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 and subsequent neurological deficits Lumbar L4-L5 subarticular recess narrowing B/L Left-sided weakness Hepatic Hemangioma Systolic Heart Failure LFT elevation LBBB Previous hypotension Obesity CAD Dementia/cognitive impairment GERD PUD PVD Diabetic polyneuropathy Progressive weakness High risk of falling Gait disturbance Spasticity T2DM Constipation Edema HTN Paroxysmal A-fib Thrombocytopenia Urinary Retention Status post UTI (resolved) BAM on CPAP Cystoscopy on 02/18/2021 Plan: Aggressive PT, OT, and speech therapy Order basic lab work in the morning Review records, talk to his family members as they are more in tune with his medical condition then the patient himself Neurology follow up Consult Dr. Rubio for A. fib 02/11/2021: Supportive care Dr. Rubio consult Poor memory recall noted 02/12/2021: Incontinence care Aggressive therapy 02/13/2021: Incontinence care Aggressive therapy 02/14/2021: Attempt condom catheter due to incontinence Monitor for retention Dr. Welsh consult 02/15/2021: Appreciate urology management Aggressive therapy Send records to [facility] 02/16/2021: Supportive care Send records to [facility] from [facility]'s Continue aggressive treatment Cystoscopy tomorrow 02/17/2021: Cystoscopy tomorrow Bowel evacuation 02/18/2021: Cystoscopy Appreciate urology 02/19/2021: Supportive care Urology appreciated 02/20/2021: Supportive care Incontinence care (1) Cervical spinal cord compression (2) Atrial fibrillation (3) Anticoagulation adequate with anticoagulant therapy (4) Urinary retention CARMELLA ESTRADA DO Feb 20, 2021 06:13
[2021-02-20] MEDS: BETHANECHOL 10 MG (URECHOLINE) TAB PO SCH ×4 (06:19→20:51)
[2021-02-20] MEDS: LEVOTHYROXINE 100 MCG (LEVOTHROID) TAB PO SCH (06:19)
[2021-02-20] MEDS: KCL 10 MEQ TAB (MICRO K) PO SCH (06:19)
[2021-02-20] MEDS: MULTIVIT W/MINERALS TAB (THERAGRAN M) PO SCH (06:19)
[2021-02-20 07:03] VITALS: BP 117/58
[2021-02-20] MEDS: CALCIUM CARB + VIT D 600 MG (CALCARB + D) TAB PO SCH (08:03)
[2021-02-20] MEDS: FUROSEMIDE 20 MG (LASIX) TAB PO SCH (08:03)
[2021-02-20] MEDS: LOSARTAN 50 MG (COZAAR) TAB PO SCH (08:03)
[2021-02-20] MEDS: FAMOTIDINE 20 MG (PEPCID) TABLET PO SCH (08:04)
[2021-02-20] MEDS: FERROUS SULF 325 MG (IRON) TAB PO SCH (08:04)
[2021-02-20] MEDS: APIXABAN 5 MG (ELIQUIS) TABLET PO SCH ×2 (08:04→20:51)
[2021-02-20] MEDS: MAGNESIUM OXIDE (MAG-OX)400 MG TAB PO SCH (08:04)
[2021-02-20] MEDS: lisINopril 10 MG (PRINIVIL) TABLET PO SCH (08:04)
[2021-02-20] MEDS: OMEGA 3 (FISH OIL) 1000 MG CAP PO SCH ×2 (08:04→20:51)
[2021-02-20] MEDS: meTOprolol SUCCINATE 100 MG (TOPROL XL) TAB PO SCH (08:05)
[2021-02-20] MEDS: DOCUSATE SODIUM 100 MG (COLACE) CAP PO SCH ×2 (09:42→20:51)
[2021-02-20] MEDS: polyethylene glycoL POWDER 17 GM (MIRALAX) PACK PO SCH ×2 (09:49→20:51)
[2021-02-20] MEDS: SENNA W/DOCUSATE (SENOKOT S) TABLET PO SCH ×2 (09:49→20:51)
[2021-02-20] MEDS: DIGOXIN 0.125 MG (LANOXIN) TAB PO SCH (17:44)
[2021-02-20] MEDS: TAMSULOSIN 0.4 MG (FLOMAX) CAP PO SCH (17:44)
[2021-02-20 20:00] VITALS: BP 118/62
[2021-02-20] MEDS: SIMvastatin 40 MG (ZOCOR) TAB PO SCH (20:51)
[2021-02-20] MEDS: MELATONIN 3 MG TABLET PO PRN (20:55)
[2021-02-21 05:28] LABS: BASOPHILS % (AUTO) 1 % (0-10); EOSINOPHILS # (AUTO) 0.2 10^3/uL (0.0-0.3); EOSINOPHILS % (AUTO) 5 % (0-10); HEMATOCRIT 41 % (40-54); LYMPHOCYTES # (AUTO) 1.2 10^3/uL (1.0-4.0); LYMPHOCYTES % (AUTO) 29 % (12-44); MEAN CORPUSCULAR HEMOGLOBIN 33 pg (25-34); MEAN CORPUSCULAR HGB CONC 34 g/dL (32-36); MEAN CORPUSCULAR VOLUME 96 fL (80-99); MEAN PLATELET VOLUME 11.1 fL (9.0-12.2); MONOCYTES # (AUTO) 0.6 10^3/uL (0.0-1.0); MONOCYTES % (AUTO) 14 % (0-12); NEUTROPHILS # (AUTO) 2.1 10^3/uL (1.8-7.8); NEUTROPHILS % (AUTO) 51 % (42-75); PLATELET COUNT 253 10^3/uL (130-400)
[2021-02-21 05:37] LABS: ALBUMIN 2.9 GM/DL (3.2-4.5); POTASSIUM 3.6 MMOL/L (3.6-5.0)
[2021-02-21 05:38] LABS: CALCIUM 8.8 MG/DL (8.5-10.1)
[2021-02-21 05:40] LABS: TOTAL PROTEIN 5.5 GM/DL (6.4-8.2)
[2021-02-21 05:41] LABS: BILIRUBIN,TOTAL 1.1 MG/DL (0.1-1.0)
[2021-02-21 05:43] LABS: CREATININE SERUM 0.85 MG/DL (0.60-1.30)
[2021-02-21] MEDS: inSUlin ASPART (NovoLOG) 1 UNIT/0.01 ML (CHARGE PER UNIT) SC SCH ×4 (05:55→20:10)
[2021-02-21] MEDS: MULTIVIT W/MINERALS TAB (THERAGRAN M) PO SCH (06:18)
[2021-02-21] MEDS: BETHANECHOL 10 MG (URECHOLINE) TAB PO SCH ×4 (06:18→21:15)
[2021-02-21] MEDS: LEVOTHYROXINE 100 MCG (LEVOTHROID) TAB PO SCH (06:18)
[2021-02-21] MEDS: KCL 10 MEQ TAB (MICRO K) PO SCH (06:19)
--- NOTE | 2021-02-21 06:55 | Progress Note - Urology ---
Progress Note-Urology Progress Notes/Assess & Plan Progress/Assessment & Plan VOIDING ON OWN, PVR DOWN, BAD CONTROL, WE WILL SOLVE ONE PROBLEM AT A TIME Final Diagnosis RETENTION AND INCONTINENCE YUAN NICHOLSON MD Feb 21, 2021 06:55
[2021-02-21] MEDS: lisINopril 10 MG (PRINIVIL) TABLET PO SCH (07:41)
[2021-02-21] MEDS: FERROUS SULF 325 MG (IRON) TAB PO SCH (07:45)
[2021-02-21] MEDS: MAGNESIUM OXIDE (MAG-OX)400 MG TAB PO SCH (07:45)
[2021-02-21] MEDS: FAMOTIDINE 20 MG (PEPCID) TABLET PO SCH (07:45)
[2021-02-21] MEDS: CALCIUM CARB + VIT D 600 MG (CALCARB + D) TAB PO SCH (07:46)
[2021-02-21] MEDS: meTOprolol SUCCINATE 100 MG (TOPROL XL) TAB PO SCH (07:46)
[2021-02-21] MEDS: OMEGA 3 (FISH OIL) 1000 MG CAP PO SCH ×2 (07:46→21:15)
[2021-02-21] MEDS: LOSARTAN 50 MG (COZAAR) TAB PO SCH (07:46)
[2021-02-21] MEDS: APIXABAN 5 MG (ELIQUIS) TABLET PO SCH ×2 (07:46→21:15)
[2021-02-21] MEDS: DOCUSATE SODIUM 100 MG (COLACE) CAP PO SCH ×2 (07:46→21:15)
[2021-02-21] MEDS: FUROSEMIDE 20 MG (LASIX) TAB PO SCH (07:46)
[2021-02-21 08:00] VITALS: BP 120/61
[2021-02-21] MEDS: polyethylene glycoL POWDER 17 GM (MIRALAX) PACK PO SCH ×2 (08:16→21:16)
[2021-02-21] MEDS: SENNA W/DOCUSATE (SENOKOT S) TABLET PO SCH ×2 (08:16→21:15)
--- NOTE | 2021-02-21 10:55 | PM&R Progress Note ---
Subjective HPI/CC On Admission Date Seen by Provider: Feb 21, 2021 Time Seen by Provider: 10:30 Subjective/Events-last exam 02/21/2021: Patient reports no significant concerns Bladder scanning per urology rec No word from [facility] Incontinent of bowel today Labs look good 02/20/2021: Patient has no new complaints today Denies any new issues No pain is reported Incontinence is an issue Fecal incontinence also an issue 02/19/2021: Patient had an uneventful night Denies any new issues Working on bladder retraining Check meds and labs 02/18/2021: Patient doing well Has no complaints Cystoscopy to be done today by urology No pain is reported Bowel evacuation ordered 02/17/2021: Patient doing really well Bowels moved yesterday All records sent to [facility] Has no rectal tone May need a suppository to evacuate bowels and treated like a paraplegic Bottom wound appears to be very superficial on a cushion 02/16/2021: Pt doing well No issues Bowels moved yesterday and fecal incontinence Frausto cath in Cystoscopy by Dr. Welsh on Sunday02/15/2021: Pt doing a little better Frausto required and Dr. Welsh consulted Spot checks of oxygen without CPAP during the night are okay Still a Coleen-lift 02/14/2021: Pt doing well Condom catheter will be attempted Platelet count 108 Wound looks good BP and blood sugar good No pain Bowels are moving 02/13/2021: Patient doing well Has no needs Bowels are moving well No issues Sugars are reviewed 02/12/2021: Patient doing well Incontinent of bowel and bladder a lot Able to move himself and turn himself in bed Check meds and labs Cognitive deficit could preclude independent living 02/11/2021: Patient doing pretty well Dr. Rubio will be consulted Noncompliant with CPAP machine Oxygen was good last night at 90% Wound care consulted Dr. Edenilson Prakash good Bowels are a bit loose and he does have fecal incontinence Review of Systems General: Fatigue, Malaise Genitourinary: Incontinence Neurological: Weakness, Incoordination Objective Exam Vital Signs Vital Signs Date Time Temp Pulse Resp B/P (MAP) Pulse Ox O2 Delivery O2 Flow Rate FiO2 02/21/21 21:00 95 Room Air 02/21/21 19:33 36.3 71 16 116/57 (76) Capillary Refill : General Appearance: No Apparent Distress, WD/WN, Chronically ill HEENT: PERRL/EOMI, Normal ENT Inspection, Pharynx Normal Neck: Full Range of Motion, Normal Inspection, Non Tender, Supple, Carotid Bruit Respiratory: Chest Non Tender, Lungs Clear, Normal Breath Sounds, No Accessory Muscle Use, No Respiratory Distress Cardiovascular: Regular Rate, Rhythm, No Edema, No Gallop, No JVD, No Murmur, Normal Peripheral Pulses Gastrointestinal: Normal Bowel Sounds, No Organomegaly, No Pulsatile Mass, Non Tender, Soft Back: Normal Inspection, No CVA Tenderness, No Vertebral Tenderness Extremity: Normal Capillary Refill, Normal Inspection, Normal Range of Motion, Non Tender, No Calf Tenderness, No Pedal Edema Neurologic/Psychiatric: Alert, Oriented x3, Normal 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 FIM Transfers Therapy Code Descriptions/Definitions Functional [place] Measure: 0=Not Assessed/NA 4=Minimal Assistance 1=Total Assistance 5=Supervision or Setup 2=Maximal Assistance 6=Modified [place] 3=Moderate Assistance 7=Complete IndependenceSCALE: Activities may be completed with or without assistive devices. 1-Opwjatkhqi-gwzoheg completes the activity by him/herself with no assistance from a helper. 5-Set-up or Clean-up Assistance-helper sets up or cleans up; patient completes activity. [place] assists only prior to or following the activity. 4-Supervision or Touching Assistance-helper provides verbal cues and/or touching/steadying and/or contact guard assistance as patient completes activity. Assistance may be provided throughout the activity or intermittently. 3-Partial/Moderate Assistance-helper does LESS THAN HALF the effort. [place] lifts, holds or supports trunk or limbs, but provides less than half the effort. 2-Substantial/Maximal Assistance-helper does MORE THAN HALF the effort. [place] lifts or holds trunk or limbs and provides more than half the effort. 7-Yrfcdoebq-arkkio does ALL the effort. Patient does none of the effort to complete the activity. Or, the assistance of 2 or more helpers is required for the patient to complete the activity. If activity was not attempted, code reason: 7-Patient Refused. 9-Not Applicable-not attempted and the patient did not perform the activity before the current illness, exacerbation or injury. 10-Not Attempted due to Environmental Limitations-(lack of equipment, weather restraints, etc.). 88-Not Attempted due to Medical Conditions or Safety Concerns. Roll Left to Right (QC): 3 Sit to Lying (QC): 1 Sit to Stand (QC): 1 Chair/Bqu-oa-Alnuc Xfer(QC): 1 Car Transfer (QC): 88 Gait Training Does the Patient Walk?: No and Walking Goal NOT indicated Walk 10 feet (QC): 88 Walk 50 ft with 2 Turns(QC): 88 Walk 150 ft (QC): 88 Walking 10ft/uneven surface-QC: 88 Wheelchair Training Does the Pt Use a Wheelchair?: Yes Distance: 100'x2 Wheel 50 ft with 2 turns (QC): 3 Wheel 150 ft (QC): 3 Type of Wheelchair: Manual Stair Training 1 Step (curb) (QC): 88 4 Steps (QC): 88 12 Steps (QC): 88 Balance Picking up an Object (QC): 88 ADL-Treatment Eating (QC): 4 Oral Hygiene (QC): 5 Bathing Location: L Arm, R Arm, L Upper Leg, R Upper Leg, Chest, Abdomen Shower/Bathe Self (QC): 2 Upper Body Dressing (QC): 4 Lower Body Dressing (QC): 2 On/Off Footwear (QC): 2 Toileting Hygiene (QC): 1 Toilet Transfer (QC): 1 Assessment/Plan Assessment and Plan Assess & Plan/Chief Complaint Assessment: 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 and subsequent neurological deficits Lumbar L4-L5 subarticular recess narrowing B/L Left-sided weakness Hepatic Hemangioma Systolic Heart Failure LFT elevation LBBB Previous hypotension Obesity CAD Dementia/cognitive impairment GERD PUD PVD Diabetic polyneuropathy Progressive weakness High risk of falling Gait disturbance Spasticity T2DM Constipation Edema HTN Paroxysmal A-fib Thrombocytopenia Urinary Retention Status post UTI (resolved) BAM on CPAP Cystoscopy on 02/18/2021 Plan: Aggressive PT, OT, and speech therapy Order basic lab work in the morning Review records, talk to his family members as they are more in tune with his medical condition then the patient himself Neurology follow up Consult Dr. Rubio for A. fib 02/11/2021: Supportive care Dr. Rubio consult Poor memory recall noted 02/12/2021: Incontinence care Aggressive therapy 02/13/2021: Incontinence care Aggressive therapy 02/14/2021: Attempt condom catheter due to incontinence Monitor for retention Dr. Welsh consult 02/15/2021: Appreciate urology management Aggressive therapy Send records to [facility] 02/16/2021: Supportive care Send records to [facility] from [facility] Continue aggressive treatment Cystoscopy tomorrow 02/17/2021: Cystoscopy tomorrow Bowel evacuation 02/18/2021: Cystoscopy Appreciate urology 02/19/2021: Supportive care Urology appreciated 02/20/2021: Supportive care Incontinence care 02/21/2021: Supportive care Incontinence care Appreciate urology (1) Cervical spinal cord compression (2) Atrial fibrillation (3) Anticoagulation adequate with anticoagulant therapy (4) Urinary retention CARMELLA ESTRADA DO Feb 21, 2021 10:55
--- NOTE | 2021-02-21 10:57 | Physical Therapy Daily Note ---
PT Daily Note-Current Subjective Patient in bed pre tx, agrees to PT, has no complaints of pain at rest. Will be co-treating with OT due to poor patient mobility, strength, endurance, coordinate UE and LE during activity, safety and reduce risk of falls. Appearance Patient in WC at bedside post tx with nurse call, phone, tray, all needs met Mental Status Patient Orientation: Person, Place, Situation Transfers SCALE: Activities may be completed with or without assistive devices. 7-Iseasfimvt-hdivqcx completes the activity by him/herself with no assistance from a helper. 5-Set-up or Clean-up Assistance-helper sets up or cleans up; patient completes activity. [place] assists only prior to or following the activity. 4-Supervision or Touching Assistance-helper provides verbal cues and/or touching/steadying and/or contact guard assistance as patient completes activity. Assistance may be provided throughout the activity or intermittently. 3-Partial/Moderate Assistance-helper does LESS THAN HALF the effort. [place] lifts, holds or supports trunk or limbs, but provides less than half the effort. 2-Substantial/Maximal Assistance-helper does MORE THAN HALF the effort. [place] lifts or holds trunk or limbs and provides more than half the effort. 7-Buwowjcce-bsvinr does ALL the effort. Patient does none of the effort to complete the activity. Or, the assistance of 2 or more helpers is required for the patient to complete the activity. If activity was not attempted, code reason: 7-Patient Refused. 9-Not Applicable-not attempted and the patient did not perform the activity before the current illness, exacerbation or injury. 10-Not Attempted due to Environmental Limitations-(lack of equipment, weather restraints, etc.). 88-Not Attempted due to Medical Conditions or Safety Concerns. Roll Left & Right (QC): 3 Sit to Lying (QC): 1 Lying to Sitting/Side of Bed(Q: 1 Chair/Tai-en-Diepl Xfer(QC): 1 Attempted to roll and performed supine to sit and then start dressing while sitting on the side of the bed. Supine to sit was too painful in his left leg going to the left so he rolled to the other side and dependent supine to sit on the right side, patient was not able to maintain his balance in sitting and he was gradually scooting too far forward so he had to be laid back down and scooted up in bed. Patient rolled again for ck sling placement and he was hoyered to WC, taken to restroom and performed some ADL's. Wheelchair Training Does the Pt Use a Wheelchair?: Yes Wheel 50 ft with 2 turns (QC): 3 Wheel 150 ft (QC): 3 Type of Wheelchair: Manual Very slow, many rest breaks, assist some with fatigue or sometimes around objects. Treatments PT performed bed mobility, supine <-> sit, transfers, WC mobility, OT performed ADL's, assisted with transfers, UE positioning and safety during activity. Assessment Current Status: Poor Progress patient had a decline in sitting balance PT Short Term Goals Short Term Goals Time Frame: Feb 17, 2021 Roll Left & Right: 3 Sit to lyin Lying to sitting on side of be: 3 Wheel 50ft w/2 turns: 4 Wheel 150 feet: 4 PT Mapping Supervisor Goals Mapping Supervisor Goals PT Longterm Goals Time Frame: Mar 03, 2021 Roll Left & Right (QC): 4 Sit to Lying (QC): 4 Lying-Sitting on Side/Bed(QC): 4 Sit to Stand (QC): 88 Chair/Ybg-au-Cnjyt Xfer(QC): 88 Toilet Transfer (QC): 88 Car Transfer (QC): 88 Does the Patient Walk: No and Walking Goal NOT indicated Walk 10 feet (QC): 88 Walk 50ft with 2 Turns (QC): 88 Walk 150 ft (QC): 88 Walking 10ft on Uneven Surface: 88 1 Step (curb) (QC): 88 4 Steps (QC): 88 12 Steps (QC): 88 Picking up an Object (QC): 88 Wheel 50 feet with 2 turns (QC: 6 Wheel 150 feet: 6 PT Plan Problem List Problem List: Activity Tolerance, Functional Strength, Safety, Balance, Gait, Transfer, Bed Mobility, ROM Treatment/Plan Treatment Plan: Continue Plan of Care Treatment Plan: Bed Mobility, Education, Functional Activity Jorge, Functional Strength, Group Therapy, Gait, Safety, Therapeutic Exercise, Transfers Treatment Duration: Mar 03, 2021 Frequency: At least 5 of 7 days/Wk (IRF) Estimated Hrs Per Day: 1.5 hours per day Patient and/or Family Agrees t: Yes Safety Risks/Education Patient Education: Transfer Techniques, Correct Positioning, W/C Management, Safety Issues Teaching Recipient: Patient Teaching Methods: Demonstration, Discussion Response to Teaching: Reinforcement Needed Time/GCodes Time In: 1000 Time Out: 1100 Total Billed Treatment Time: 60 Total Billed Treatment 1 visit FA 60' co-treated for 60' TARA MCCOY PT Feb 21, 2021 10:57
--- NOTE | 2021-02-21 10:57 | Occupational Ther Daily Note ---
OT Current Status-Daily Note Subjective Pt reports pain in L thigh when in sidelying to L side. Pain subsides when returning to supine or sitting in w/c. Appearance Pt left sitting upright in w/c, all needs within reach ADL-Treatment Therapy Code Descriptions/Definitions Functional [place] Measure: 0=Not Assessed/NA 4=Minimal Assistance 1=Total Assistance 5=Supervision or Setup 2=Maximal Assistance 6=Modified [place] 3=Moderate Assistance 7=Complete IndependenceSCALE: Activities may be completed with or without assistive devices. 7-Gblbwgzwvk-iqcgblx completes the activity by him/herself with no assistance from a helper. 5-Set-up or Clean-up Assistance-helper sets up or cleans up; patient completes activity. [place] assists only prior to or following the activity. 4-Supervision or Touching Assistance-helper provides verbal cues and/or touching/steadying and/or contact guard assistance as patient completes activity. Assistance may be provided throughout the activity or intermittently. 3-Partial/Moderate Assistance-helper does LESS THAN HALF the effort. [place] lifts, holds or supports trunk or limbs, but provides less than half the effort. 2-Substantial/Maximal Assistance-helper does MORE THAN HALF the effort. [place] lifts or holds trunk or limbs and provides more than half the effort. 4-Yiatoaidh-tnzsmg does ALL the effort. Patient does none of the effort to complete the activity. Or, the assistance of 2 or more helpers is required for the patient to complete the activity. If activity was not attempted, code reason: 7-Patient Refused. 9-Not Applicable-not attempted and the patient did not perform the activity before the current illness, exacerbation or injury. 10-Not Attempted due to Environmental Limitations-(lack of equipment, weather restraints, etc.). 88-Not Attempted due to Medical Conditions or Safety Concerns. Oral Hygiene (QC): 4 Upper Body Dressing (QC): 1 Lower Body Dressing (QC): 1 On/Off Footwear: 1 Co-treat with PT secondary to poor patient mobility, strength, endurance, sit ting balance, safety and high fall risk. Pt with a decline in performance this date. He required max a x2 to sit EOB. Initially, goal was to don clothing sitting EOB as pt was able to perform in past sessions. Once sitting EOB, pt was Unable to sustain balance without BUE support and min-mod a. Poor awareness/proprioception exhibited with LE's. Pt would be dependent to don shirt or pants secondary to impaired sitting balance/proprioception. Dep x2 to return to supine. Coleen lift to w/c. Pt unable to maintain upright posture this session and required UE to pull self forward towards sink during oral care. HOHA required to squeeze toothpaste container secondary to weakness. He propelled w/c throughout unit, required increased rest breaks secondary to fatigue/SOB. Cues/education on minimizing the force and frequency of pushes and using long strokes during propulsion. Education OT Patient Education: Correct positioning, Energy conservation, Modified ADL techniques, Progress toward Goal/Update tx plan, Purpose of tx/functional activities, Reviewed precautions, Rehab process, Safety issues, Transfer techniq ues, W/C management Teaching Recipient: Patient Teaching Methods: Demonstration, Discussion Response to Teaching: Verbalize Understanding, Reinforcement Needed OT Short Term Goals Short Term Goals Time Frame: Feb 24, 2021 Eatin Oral hygiene: 4 Toileting hygiene: 2 Shower/bathe self: 2 Upper body dressin Lower body dressin Putting on/taking off footwear: 3 OT Pre Press Proofer Goals Correction Goals Time Frame: Mar 04, 2021 Eating (QC): 6 Oral Hygiene (QC): 5 Toileting Hygiene (QC): 4 Shower/Bathe Self (QC): 3 Upper Body Dressing (QC): 4 Lower Body Dressing (QC): 3 On/Off Footwear (QC): 4 1=Demonstrate adherence to instructed precautions during ADL tasks. 2=Patient will verbalize/demonstrate understanding of assistive devices/modifications for ADL. 3=Patient will improve strength/tolerance for activity to enable patient to perform ADL's. OT Education/Plan Problem List/Assessment Assessment: Decreased Activ Tolerance, Decreased Safety Aware, Decreased UE Strength, Dependent Transfers, Impaired Bed Mobility, Impaired Cognition, Impaired Coordination, Impaired Funct Balance, Impaired I ADL's, Impaired Self- Care Skills, Restricted Funct UE ROM Discharge Recommendations Plan/Recommendations: Continue POC Target Placement LTC vs Assisted living pending progress Treatment Plan/Plan of Care Treatment,Training & Education: Yes Patient would benefit from OT for education, treatment and training to promote independence in ADL's, mobility, safety and/or upper extremity function for ADL's. Plan of Care: ADL Retraining, Functional Mobility, Group Exercise/Act as Ind, UE Funct Exercise/Act, W/C Management Training Treatment Duration: Mar 04, 2021 Frequency: At least 5 of 7 days/Wk (IRF) Estimated Hrs Per Day: 1.5 hours per day Agreement: Yes Rehab Potential: Guarded Time/GCodes Start Time: 10:00 Stop Time: 11:00 Total Time Billed (hr/min): 60 Billed Treatment Time 1 visit ADL x2 (30 min) FA x2 (30 min) Antonieta Angel OT Feb 21, 2021 10:57
--- NOTE | 2021-02-21 13:24 | Physical Therapy Daily Note ---
PT Daily Note-Current Subjective Patient in WC at bedside pre tx, agrees to PT, has no complaints of pain. Appearance Patient in bed post tx with nurse call, phone, tray, all needs met. Mental Status Patient Orientation: Person, Place, Situation Transfers SCALE: Activities may be completed with or without assistive devices. 7-Vnsuvxhjsz-cwyvuzx completes the activity by him/herself with no assistance from a helper. 5-Set-up or Clean-up Assistance-helper sets up or cleans up; patient completes activity. [place] assists only prior to or following the activity. 4-Supervision or Touching Assistance-helper provides verbal cues and/or ilda marsha/steadying and/or contact guard assistance as patient completes activity. Assistance may be provided throughout the activity or intermittently. 3-Partial/Moderate Assistance-helper does LESS THAN HALF the effort. [place] lifts, holds or supports trunk or limbs, but provides less than half the effort. 2-Substantial/Maximal Assistance-helper does MORE THAN HALF the effort. [place] lifts or holds trunk or limbs and provides more than half the effort. 7-Lidccddrv-nwejsg does ALL the effort. Patient does none of the effort to complete the activity. Or, the assistance of 2 or more helpers is required for the patient to complete the activity. If activity was not attempted, code reason: 7-Patient Refused. 9-Not Applicable-not attempted and the patient did not perform the activity before the current illness, exacerbation or injury. 10-Not Attempted due to Environmental Limitations-(lack of equipment, weather restraints, etc.). 88-Not Attempted due to Medical Conditions or Safety Concerns. Chair/Kiy-oe-Zsqbl Xfer(QC): 1 Patient hoyered to bed from Exercises Supine Ex: Ankle pumps, Quad Set, Glut sets, Heel Slides, Short Arc Quads, Straight leg raise, Hip abd/add Supine Reps: 20 (Patient AAROM on the left side and some on the right side because he fatigues and can't complete 20 reps with HS, SAQ, SLR, hip abd.) Treatments transfers, LE strengthening Assessment Current Status: Poor Progress Patient seems to have declined in strength today. PT Short Term Goals Short Term Goals Time Frame: Feb 17, 2021 Roll Left & Right: 3 Sit to lyin Lying to sitting on side of be: 3 Wheel 50ft w/2 turns: 4 Wheel 150 feet: 4 PT Chcf Goals Peer Tutor Goals PT Chcf Goals Time Frame: Mar 03, 2021 Roll Left & Right (QC): 4 Sit to Lying (QC): 4 Lying-Sitting on Side/Bed(QC): 4 Sit to Stand (QC): 88 Chair/Glo-bo-Pkhxt Xfer(QC): 88 Toilet Transfer (QC): 88 Car Transfer (QC): 88 Does the Patient Walk: No and Walking Goal NOT indicated Walk 10 feet (QC): 88 Walk 50ft with 2 Turns (QC): 88 Walk 150 ft (QC): 88 Walking 10ft on Uneven Surface: 88 1 Step (curb) (QC): 88 4 Steps (QC): 88 12 Steps (QC): 88 Picking up an Object (QC): 88 Wheel 50 feet with 2 turns (QC: 6 Wheel 150 feet: 6 PT Plan Problem List Problem List: Activity Tolerance, Functional Strength, Safety, Balance, Gait, Transfer, Bed Mobility, ROM Treatment/Plan Treatment Plan: Continue Plan of Care Treatment Plan: Bed Mobility, Education, Functional Activity Jorge, Functional Strength, Group Therapy, Gait, Safety, Therapeutic Exercise, Transfers Treatment Duration: Mar 03, 2021 Frequency: At least 5 of 7 days/Wk (IRF) Estimated Hrs Per Day: 1.5 hours per day Patient and/or Family Agrees t: Yes Safety Risks/Education Patient Education: Transfer Techniques, Correct Positioning, Safety Issues Teaching Recipient: Patient Teaching Methods: Demonstration, Discussion Response to Teaching: Reinforcement Needed Time/GCodes Time In: 1300 Time Out: 1330 Total Billed Treatment Time: 30 Total Billed Treatment 1 visit FA 10' EX 20' TARA MCCOY PT Feb 21, 2021 13:24
--- NOTE | 2021-02-21 14:02 | Occupational Ther Daily Note ---
OT Current Status-Daily Note Subjective Pt denies pain, agreeable to treatment Appearance Left supine in bed, all needs within reach ADL-Treatment Therapy Code Descriptions/Definitions Functional [place] Measure: 0=Not Assessed/NA 4=Minimal Assistance 1=Total Assistance 5=Supervision or Setup 2=Maximal Assistance 6=Modified [place] 3=Moderate Assistance 7=Complete IndependenceSCALE: Activities may be completed with or without assistive devices. 1-Rybumkcxan-zvovqhn completes the activity by him/herself with no assistance from a helper. 5-Set-up or Clean-up Assistance-helper sets up or cleans up; patient completes activity. [place] assists only prior to or following the activity. 4-Supervision or Touching Assistance-helper provides verbal cues and/or touching/steadying and/or contact guard assistance as patient completes activity. Assistance may be provided throughout the activity or intermittently. 3-Partial/Moderate Assistance-helper does LESS THAN HALF the effort. [place] lifts, holds or supports trunk or limbs, but provides less than half the effort. 2-Substantial/Maximal Assistance-helper does MORE THAN HALF the effort. [place] lifts or holds trunk or limbs and provides more than half the effort. 8-Ppnqspill-hlbzha does ALL the effort. Patient does none of the effort to complete the activity. Or, the assistance of 2 or more helpers is required for the patient to complete the activity. If activity was not attempted, code reason: 7-Patient Refused. 9-Not Applicable-not attempted and the patient did not perform the activity before the current illness, exacerbation or injury. 10-Not Attempted due to Environmental Limitations-(lack of equipment, weather restraints, etc.). 88-Not Attempted due to Medical Conditions or Safety Concerns. Other Treatment Focus of session on improving LUE strength, coordination, and ROM. Pt demonstrating increased weakness this date. Fatigues quicker and exhibits "catching" (similar to trigger finger) after ~4-5 reps (more with elbow extension/flexion). Pt often having to use RUE to manually bring arm back to neutral position. Does not appear to be increased tone. While supine, OT had patient reach/tap theraband placed in all planes. Pt is able to perform all movements to full range, but requires Extra time to transition L arm. Pt fatigues after ~4-5 rounds and requires several rest breaks throughout activity. Education OT Patient Education: Correct positioning, Progress toward Goal/Update tx plan, Reviewed precautions Teaching Recipient: Patient Teaching Methods: Demonstration, Discussion Response to Teaching: Verbalize Understanding, Return Demonstration, Reinforcement Needed OT Short Term Goals Short Term Goals Time Frame: Feb 24, 2021 Eatin Oral hygiene: 4 Toileting hygiene: 2 Shower/bathe self: 2 Upper body dressin Lower body dressin Putting on/taking off footwear: 3 OT Campus Recruiting Coordinator Goals Campus Recruiting Coordinator Goals Time Frame: Mar 04, 2021 Eating (QC): 6 Oral Hygiene (QC): 5 Toileting Hygiene (QC): 4 Shower/Bathe Self (QC): 3 Upper Body Dressing (QC): 4 Lower Body Dressing (QC): 3 On/Off Footwear (QC): 4 1=Demonstrate adherence to instructed precautions during ADL tasks. 2=Patient will verbalize/demonstrate understanding of assistive devices/modifications for ADL. 3=Patient will improve strength/tolerance for activity to enable patient to perform ADL's. OT Education/Plan Problem List/Assessment Assessment: Decreased Activ Tolerance, Decreased Safety Aware, Decreased UE S trength, Dependent Transfers, Impaired Bed Mobility, Impaired Cognition, Impaired Coordination, Impaired Funct Balance, Impaired I ADL's, Impaired Self- Care Skills, Restricted Funct UE ROM Discharge Recommendations Plan/Recommendations: Continue POC Treatment Plan/Plan of Care Treatment,Training & Education: Yes Patient would benefit from OT for education, treatment and training to promote independence in ADL's, mobility, safety and/or upper extremity function for ADL's. Plan of Care: ADL Retraining, Functional Mobility, Group Exercise/Act as Ind, UE Funct Exercise/Act, W/C Management Training Treatment Duration: Mar 04, 2021 Frequency: At least 5 of 7 days/Wk (IRF) Estimated Hrs Per Day: 1.5 hours per day Agreement: Yes Rehab Potential: Guarded Time/GCodes Start Time: 13:30 Stop Time: 14:00 Total Time Billed (hr/min): 30 Billed Treatment Time 1 visit EX (15 min) FA (15 min) Antonieta Angel OT Feb 21, 2021 14:02
[2021-02-21] MEDS: TAMSULOSIN 0.4 MG (FLOMAX) CAP PO SCH (17:57)
[2021-02-21] MEDS: DIGOXIN 0.125 MG (LANOXIN) TAB PO SCH (17:57)
[2021-02-21 19:33] VITALS: BP 116/57
[2021-02-21] MEDS: SIMvastatin 40 MG (ZOCOR) TAB PO SCH (21:15)
[2021-02-21] MEDS: MELATONIN 3 MG TABLET PO PRN (21:15)
[2021-02-22] MEDS: MULTIVIT W/MINERALS TAB (THERAGRAN M) PO SCH (06:16)
[2021-02-22] MEDS: BETHANECHOL 10 MG (URECHOLINE) TAB PO SCH ×4 (06:16→21:15)
[2021-02-22] MEDS: KCL 10 MEQ TAB (MICRO K) PO SCH (06:16)
[2021-02-22] MEDS: LEVOTHYROXINE 100 MCG (LEVOTHROID) TAB PO SCH (06:16)
[2021-02-22] MEDS: inSUlin ASPART (NovoLOG) 1 UNIT/0.01 ML (CHARGE PER UNIT) SC SCH ×4 (06:17→21:17)
--- NOTE | 2021-02-22 08:12 | Progress Note - Urology ---
Progress Note-Urology Progress Notes/Assess & Plan Progress/Assessment & Plan CONTINUES VOIDING ON OWN. PVR UNDER 200. STILL INCONTINENT WITH OAB SX. PLAN START DETROL LA AND WATCH FOR RETENTION Final Diagnosis RETENTION AND INCONTINENCE YUAN NICHOLSON MD Feb 22, 2021 08:12
[2021-02-22 08:16] VITALS: BP 113/79
[2021-02-22] MEDS: CALCIUM CARB + VIT D 600 MG (CALCARB + D) TAB PO SCH (08:22)
[2021-02-22] MEDS: FAMOTIDINE 20 MG (PEPCID) TABLET PO SCH (08:23)
[2021-02-22] MEDS: MAGNESIUM OXIDE (MAG-OX)400 MG TAB PO SCH (08:23)
[2021-02-22] MEDS: lisINopril 10 MG (PRINIVIL) TABLET PO SCH (08:23)
[2021-02-22] MEDS: FERROUS SULF 325 MG (IRON) TAB PO SCH (08:23)
[2021-02-22] MEDS: meTOprolol SUCCINATE 100 MG (TOPROL XL) TAB PO SCH (08:23)
[2021-02-22] MEDS: FUROSEMIDE 20 MG (LASIX) TAB PO SCH (08:23)
[2021-02-22] MEDS: OMEGA 3 (FISH OIL) 1000 MG CAP PO SCH ×2 (08:24→21:15)
[2021-02-22] MEDS: SENNA W/DOCUSATE (SENOKOT S) TABLET PO SCH ×2 (08:24→21:20)
[2021-02-22] MEDS: DOCUSATE SODIUM 100 MG (COLACE) CAP PO SCH ×2 (08:24→21:19)
[2021-02-22] MEDS: APIXABAN 5 MG (ELIQUIS) TABLET PO SCH ×2 (08:24→21:15)
[2021-02-22] MEDS: LOSARTAN 50 MG (COZAAR) TAB PO SCH (08:24)
[2021-02-22] MEDS: polyethylene glycoL POWDER 17 GM (MIRALAX) PACK PO SCH ×2 (08:24→21:19)
--- NOTE | 2021-02-22 11:00 | Physical Therapy Daily Note ---
PT Daily Note-Current Subjective Patient in bed pre tx, agrees to PT, has no complaints of pain. Will be co- treating with OT due to poor patient mobility, strength, endurance, coordinate UE and LE during activity, safety and reduce risk of falls. Appearance Patient in WC post tx, will continue for a bit with OT. Mental Status Patient Orientation: Person, Place, Situation Transfers SCALE: Activities may be completed with or without assistive devices. 4-Lognzefarl-ssfjzra completes the activity by him/herself with no assistance from a helper. 5-Set-up or Clean-up Assistance-helper sets up or cleans up; patient completes activity. [place] assists only prior to or following the activity. 4-Supervision or Touching Assistance-helper provides verbal cues and/or to uching/steadying and/or contact guard assistance as patient completes activity. Assistance may be provided throughout the activity or intermittently. 3-Partial/Moderate Assistance-helper does LESS THAN HALF the effort. [place] lifts, holds or supports trunk or limbs, but provides less than half the effort. 2-Substantial/Maximal Assistance-helper does MORE THAN HALF the effort. [place] lifts or holds trunk or limbs and provides more than half the effort. 4-Qmvpwpdbk-gppbyo does ALL the effort. Patient does none of the effort to complete the activity. Or, the assistance of 2 or more helpers is required for the patient to complete the activity. If activity was not attempted, code reason: 7-Patient Refused. 9-Not Applicable-not attempted and the patient did not perform the activity before the current illness, exacerbation or injury. 10-Not Attempted due to Environmental Limitations-(lack of equipment, weather restraints, etc.). 88-Not Attempted due to Medical Conditions or Safety Concerns. Roll Left & Right (QC): 3 Chair/Rdb-sc-Kfjog Xfer(QC): 1 Patient has had a BM and has to roll for cleaning, then again to place ck sling. Patient is hoyered to shower chair and taken to the shower room. Patient undresses and showers, then redresses and is taken back to his room. Patient is hoyered to his bed and then rolls again to each side to get the wet ck sling out, his back is dried off, then rolls to each side again to place a dry ck sling and then is hoyered to . Treatments PT performed bed mobility, rolling, transfers, positioning and safety during bathing and dressing, OT performed bathing, dressing, UE positioning and safety during activity. Assessment Current Status: Poor Progress no change in mobility PT Short Term Goals Short Term Goals Time Frame: Feb 17, 2021 Roll Left & Right: 3 Sit to lyin Lying to sitting on side of be: 3 Wheel 50ft w/2 turns: 4 Wheel 150 feet: 4 PT It Quality Analyst Goals It Quality Analyst Goals PT Custodial Goals Time Frame: Mar 03, 2021 Roll Left & Right (QC): 4 Sit to Lying (QC): 4 Lying-Sitting on Side/Bed(QC): 4 Sit to Stand (QC): 88 Chair/Gai-pu-Bqvws Xfer(QC): 88 Toilet Transfer (QC): 88 Car Transfer (QC): 88 Does the Patient Walk: No and Walking Goal NOT indicated Walk 10 feet (QC): 88 Walk 50ft with 2 Turns (QC): 88 Walk 150 ft (QC): 88 Walking 10ft on Uneven Surface: 88 1 Step (curb) (QC): 88 4 Steps (QC): 88 12 Steps (QC): 88 Picking up an Object (QC): 88 Wheel 50 feet with 2 turns (QC: 6 Wheel 150 feet: 6 PT Plan Problem List Problem List: Activity Tolerance, Functional Strength, Safety, Balance, Gait, Transfer, Bed Mobility, ROM Treatment/Plan Treatment Plan: Continue Plan of Care Treatment Plan: Bed Mobility, Education, Functional Activity Jorge, Functional Strength, Group Therapy, Gait, Safety, Therapeutic Exercise, Transfers Treatment Duration: Mar 03, 2021 Frequency: At least 5 of 7 days/Wk (IRF) Estimated Hrs Per Day: 1.5 hours per day Patient and/or Family Agrees t: Yes Safety Risks/Education Patient Education: Transfer Techniques, Correct Positioning, Safety Issues Teaching Recipient: Patient Teaching Methods: Demonstration, Discussion Response to Teaching: Reinforcement Needed Time/GCodes Time In: 0900 Time Out: 1000 Total Billed Treatment Time: 60 Total Billed Treatment 1 visit FA 60' co-treated for 60' TARA MCCOY PT Feb 22, 2021 11:00
--- NOTE | 2021-02-22 11:26 | Occupational Ther Daily Note ---
OT Current Status-Daily Note Subjective Pt denies pain, agreeable to shower. Appearance Pt left sitting in w/c, all needs within reach. ADL-Treatment Therapy Code Descriptions/Definitions Functional [place] Measure: 0=Not Assessed/NA 4=Minimal Assistance 1=Total Assistance 5=Supervision or Setup 2=Maximal Assistance 6=Modified [place] 3=Moderate Assistance 7=Complete IndependenceSCALE: Activities may be completed with or without assistive devices. 7-Rzjoafnmuo-poennhu completes the activity by him/herself with no assistance from a helper. 5-Set-up or Clean-up Assistance-helper sets up or cleans up; patient completes activity. [place] assists only prior to or following the activity. 4-Supervision or Touching Assistance-helper provides verbal cues and/or touching/steadying and/or contact guard assistance as patient completes activit y. Assistance may be provided throughout the activity or intermittently. 3-Partial/Moderate Assistance-helper does LESS THAN HALF the effort. [place] lifts, holds or supports trunk or limbs, but provides less than half the effort. 2-Substantial/Maximal Assistance-helper does MORE THAN HALF the effort. [place] lifts or holds trunk or limbs and provides more than half the effort. 8-Dxfjmzrwx-itbcdl does ALL the effort. Patient does none of the effort to complete the activity. Or, the assistance of 2 or more helpers is required for the patient to complete the activity. If activity was not attempted, code reason: 7-Patient Refused. 9-Not Applicable-not attempted and the patient did not perform the activity before the current illness, exacerbation or injury. 10-Not Attempted due to Environmental Limitations-(lack of equipment, weather restraints, etc.). 88-Not Attempted due to Medical Conditions or Safety Concerns. Oral Hygiene (QC): 4 Bathing Location: L Arm, R Arm, L Upper Leg, R Upper Leg, L Lower Leg (including foot), R Lower Leg (including foot), Chest, Abdomen, Buttocks, Perineal Area Shower/Bathe Self (QC): 3 On/Off Footwear: 2 Toileting Hygiene (QC): 1 Co-treat with PT secondary to poor patient mobility, strength, endurance, sitting balance, safety and high fall risk. Pt incontinent of bowels at therapist arrival. Min a to roll R/L, >effort to roll R. Dep for guillermo care and transfer to shower w/c with use of coleen. Pt sat for 100% of task. Continues to demonstrate reduced sitting balance this date while listing L throughout task. Requires cues and assist from UE's to bring self back to midline. Pt having increased difficulty maintaining sales operations manager of washcloth with L hand as well as horizontally adducting shoulder to reach R axilla. Required min a under elbow secondary to weakness. He was able to bend at waist to reach R foot, required min a to wash L foot. Dep for washing buttocks. Coleen transfer back to bed and back to w/c with clean dry sling. He sat in w/c to complete oral care and hair combing. Slight improvement in maintaining upright posture during task and did not require UE's to pull self anteriorly towards sink this date. Education OT Patient Education: Correct positioning, Disease process, Energy conservation, Modified ADL techniques, Progress toward Goal/Update tx plan, Purpose of tx/functional activities, Rehab process, Safety issues, Transfer techniques, Use of adapted equipment, W/C management Teaching Recipient: Patient Teaching Methods: Demonstration, Discussion Response to Teaching: Verbalize Understanding, Return Demonstration, Reinfo rcement Needed OT Short Term Goals Short Term Goals Time Frame: Feb 24, 2021 Eatin Oral hygiene: 4 Toileting hygiene: 2 Shower/bathe self: 2 Upper body dressin Lower body dressin Putting on/taking off footwear: 3 OT Slot Shift Supervisor Goals Slot Shift Supervisor Goals Time Frame: Mar 04, 2021 Eating (QC): 6 Oral Hygiene (QC): 5 Toileting Hygiene (QC): 4 Shower/Bathe Self (QC): 3 Upper Body Dressing (QC): 4 Lower Body Dressing (QC): 3 On/Off Footwear (QC): 4 1=Demonstrate adherence to instructed precautions during ADL tasks. 2=Patient will verbalize/demonstrate understanding of assistive devices/modifications for ADL. 3=Patient will improve strength/tolerance for activity to enable patient to perform ADL's. OT Education/Plan Problem List/Assessment Assessment: Decreased Activ Tolerance, Decreased Safety Aware, Decreased UE Strength, Dependent Transfers, Impaired Bed Mobility, Impaired Cognition, Impaired Coordination, Impaired Funct Balance, Impaired I ADL's, Impaired Self- Care Skills, Restricted Funct UE ROM Discharge Recommendations Plan/Recommendations: Continue POC Treatment Plan/Plan of Care Treatment,Training & Education: Yes Patient would benefit from OT for education, treatment and training to promote independence in ADL's, mobility, safety and/or upper extremity function for ADL's. Plan of Care: ADL Retraining, Functional Mobility, Group Exercise/Act as Ind, UE Funct Exercise/Act, W/C Management Training Treatment Duration: Mar 04, 2021 Frequency: At least 5 of 7 days/Wk (IRF) Estimated Hrs Per Day: 1.5 hours per day Agreement: Yes Rehab Potential: Guarded Time/GCodes Start Time: 10:00 Stop Time: 11:15 Total Time Billed (hr/min): 75 Billed Treatment Time 1 visit, ADL x5 Co-treat with PT from [id number] Antonieta Angel OT Feb 22, 2021 11:26
--- NOTE | 2021-02-22 13:17 | Physical Therapy Daily Note ---
PT Daily Note-Current Subjective Patient in WC at bedside pre tx, agrees to PT, would like to get back to bed, no complaints of pain at rest. Appearance Patient in bed post tx with nurse call, phone, tray, all needs met. Mental Status Patient Orientation: Person, Place, Situation Transfers SCALE: Activities may be completed with or without assistive devices. 4-Fkrstmtdst-xxvttop completes the activity by him/herself with no assistance from a helper. 5-Set-up or Clean-up Assistance-helper sets up or cleans up; patient completes activity. [place] assists only prior to or following the activity. 4-Supervision or Touching Assistance-helper provides verbal cues and/or touching/steadying and/or contact guard assistance as patient completes activity. Assistance may be provided throughout the activity or intermittently. 3-Partial/Moderate Assistance-helper does LESS THAN HALF the effort. [place]on lifts, holds or supports trunk or limbs, but provides less than half the effort. 2-Substantial/Maximal Assistance-helper does MORE THAN HALF the effort. [place] lifts or holds trunk or limbs and provides more than half the effort. 7-Lgydnlaxl-bykuob does ALL the effort. Patient does none of the effort to complete the activity. Or, the assistance of 2 or more helpers is required for the patient to complete the activity. If activity was not attempted, code reason: 7-Patient Refused. 9-Not Applicable-not attempted and the patient did not perform the activity before the current illness, exacerbation or injury. 10-Not Attempted due to Environmental Limitations-(lack of equipment, weather restraints, etc.). 88-Not Attempted due to Medical Conditions or Safety Concerns. Roll Left & Right (QC): 3 Chair/Yuq-tr-Mjoob Xfer(QC): 1 Coleen transfer back to bed, has to practice rolling from side to side to remove coleen sling, now rolls to the left side with SBA but needs min assist to roll to the right. Treatments transfers, bed mobility and rolling Assessment Current Status: Fair Progress slightly improved rolling PT Short Term Goals Short Term Goals Time Frame: Feb 17, 2021 Roll Left & Right: 3 Sit to lyin Lying to sitting on side of be: 3 Wheel 50ft w/2 turns: 4 Wheel 150 feet: 4 PT Sock Examiner Goals Sock Examiner Goals PT Alf Goals Time Frame: Mar 03, 2021 Roll Left & Right (QC): 4 Sit to Lying (QC): 4 Lying-Sitting on Side/Bed(QC): 4 Sit to Stand (QC): 88 Chair/Sqm-gi-Oqpbh Xfer(QC): 88 Toilet Transfer (QC): 88 Car Transfer (QC): 88 Does the Patient Walk: No and Walking Goal NOT indicated Walk 10 feet (QC): 88 Walk 50ft with 2 Turns (QC): 88 Walk 150 ft (QC): 88 Walking 10ft on Uneven Surface: 88 1 Step (curb) (QC): 88 4 Steps (QC): 88 12 Steps (QC): 88 Picking up an Object (QC): 88 Wheel 50 feet with 2 turns (QC: 6 Wheel 150 feet: 6 PT Plan Problem List Problem List: Activity Tolerance, Functional Strength, Safety, Balance, Gait, Transfer, Bed Mobility, ROM Treatment/Plan Treatment Plan: Continue Plan of Care Treatment Plan: Bed Mobility, Education, Functional Activity Jorge, Functional Strength, Group Therapy, Gait, Safety, Therapeutic Exercise, Transfers Treatment Duration: Mar 03, 2021 Frequency: At least 5 of 7 days/Wk (IRF) Estimated Hrs Per Day: 1.5 hours per day Patient and/or Family Agrees t: Yes Safety Risks/Education Patient Education: Transfer Techniques, Correct Positioning, Safety Issues Teaching Recipient: Patient Teaching Methods: Demonstration, Discussion Response to Teaching: Reinforcement Needed Time/GCodes Time In: 1300 Time Out: 1315 Total Billed Treatment Time: 15 Total Billed Treatment 1 visit FA 15' TARA MCCOY PT Feb 22, 2021 13:17
--- NOTE | 2021-02-22 14:05 | ST Cognitive Linguistic Eval ---
Speech Evaluation-General Medical Diagnosis cervical myelopathy Onset Date: Jan 28, 2021 Medical History Pertinent Medical History: CAD, DM, GERD, HTN, Neuropathy Reviewed History: Yes Social History Current Living Status: Alone Speech PLF-Current Status Language Eval: Auditory Comprehends Simple Yes/No Ques: Functional Indent/Objects Multiple Nix: Functional Ident/Pics in Multiple Nix: Functional Follows 1-Step Commands: Functional Follows Complex Directions: Functional Follows General Conversations: Functional Language Eval: Verbal Language Completes Spontaneous Greeting: Functional Produces Auto, Serial Info: Functional Imitates Simple Words/Phrases: Functional Word Finding: Functional Requests Basic Needs: Functional States Basic Personal Info: Functional Expresses Complex Ideas: Functional Objective Formal/Standardized Tests [facility] Mental Status Exam (UMS) completed. Results The pt scored 28/30 indicating normal cognition. Impression Pt presents within normal range for cognition according to UMS exam. Pt states he had memory difficulty his entire life, but doesnt feel it will improve. TELEVISION ANALYZER provided recommendations for memory strategies. No further speech therapy warranted at this time. Speech Patient Assess Expression of Ideas/Wants: Expression (4) (Expresses complex messages) Understanding Verbal Content: Understands (4) (Clear comprehension without) Brief Interview-Mental Status: Yes (*Continue to Repetition of) Repetition of Three Words: Three (3) Temporal Orientation: Year: Correct (3) Temporal Orientation: Month: Accurate within 5 days(2) Temporal Orientation: Day: Correct (1) Recall : Wear to say "Sock": Yes, no cue required (2) Recall : Color: Yes, no cue required (2) Recall : Bed: Yes,after cueing (1) Memory/Recall Ability: Current season, Location of own room, That he or she is in a hsp/hsp unit Speech-Plan Treatment Plan Speech Therapy Treatment Plan: Discontinue ST Treatment Duration: Feb 11, 2021 Frequency: Modified Program (IRF) Estimated Hrs Per Day: Other Rehab Potential: Guarded Time Speech Therapy Time In: 11:30 Speech Therapy Time Out: 12:00 Billed Treatment Time 1, COGN TEST 30 MINS KATHIE CHURCH Feb 22, 2021 14:05
--- NOTE | 2021-02-22 14:07 | Progress Note - Cardiology ---
Cardiology SOAP Progress Note Subjective: Up in w/c Reports no improvement in left sided weakness No c/o CP, SOB or palpitations Objective: I&O/Vital Signs 02/23/21 02/23/21 08:00 09:00 Temp 36.4 Pulse 81 Resp 18 B/P (MAP) 117/56 (76) Pulse Ox 94 O2 Delivery Room Air Room Air 02/23/21 00:00 Intake Total 700 ml Output Total 25 ml Balance 675 ml Constitutional: AAO x 3, well-developed, well-nourished Respiratory: No accessory muscle use, No respiratory distress; chest expansion is symmetric, chest is bilaterally symmetric, other (prolonged exp phase) Cardiovascular: irregularly irregular; No JVD; S1 and S2 Gastrointestional: No tender; soft, round, audible bowel sounds Extremities: other (mild bilat LE swelling) Neurologic/Psychiatric: other (LUE and LLE 4/5) Skin: No rash on exposed areas, No ulcerations on exposed areas Results/Procedures: Labs Laboratory Tests 02/22/21 21:04: Glucometer 186H 02/23/21 06:11: Glucometer 123H 02/23/21 11:20: Glucometer 158H 02/23/21 16:38: Glucometer 139H A/P: Assessment: Cervical myelopathy with LUE and LLE weakness - management per medical services Chronic a-fib - OAC with Eliquis HTN - controlled HLD - statin tx Cardiomyopathy - undetermined length of time - echocardiogram from 02-04-[address] [facility] by Dr. Michaels showed LVEF 25%. 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
[2021-02-22] MEDS ORDERED: LIDOCAINE UROJET 2% GEL 10 ML PKG ONE (16:28)
[2021-02-22] MEDS: TAMSULOSIN 0.4 MG (FLOMAX) CAP PO SCH (17:00)
[2021-02-22] MEDS: DIGOXIN 0.125 MG (LANOXIN) TAB PO SCH (17:00)
[2021-02-22 20:00] VITALS: BP 104/67
--- NOTE | 2021-02-22 20:45 | PM&R Progress Note ---
Subjective HPI/CC On Admission Date Seen by Provider: Feb 22, 2021 Time Seen by Provider: 10:30 Subjective/Events-last exam 02/22/2021: Patient doing well Urology started Detrol for incontinence [facility] pending Bowels are moving well Still requiring Coleen lift 02/21/2021: Patient reports no significant concerns Bladder scanning per urology rec No word from [facility] Incontinent of bowel today Labs look good 02/20/2021: Patient has no new complaints today Denies any new issues No pain is reported Incontinence is an issue Fecal incontinence also an issue 02/19/2021: Patient had an uneventful night Denies any new issues Working on bladder retraining Check meds and labs 02/18/2021: Patient doing well Has no complaints Cystoscopy to be done today by urology No pain is reported Bowel evacuation ordered 02/17/2021: Patient doing really well Bowels moved yesterday All records sent to [facility] Has no rectal tone May need a suppository to evacuate bowels and treated like a paraplegic Bottom wound appears to be very superficial on a cushion 02/16/2021: Pt doing well No issues Bowels moved yesterday and fecal incontinence Frausto cath in Cystoscopy by Dr. Welsh on Sunday02/15/2021: Pt doing a little better Frausto required and Dr. Welsh consulted Spot checks of oxygen without CPAP during the night are okay Still a Coleen-lift 02/14/2021: Pt doing well Condom catheter will be attempted Platelet count 108 Wound looks good BP and blood sugar good No pain Bowels are moving 02/13/2021: Patient doing well Has no needs Bowels are moving well No issues Sugars are reviewed 02/12/2021: Patient doing well Incontinent of bowel and bladder a lot Able to move himself and turn himself in bed Check meds and labs Cognitive deficit could preclude independent living 02/11/2021: Patient doing pretty well Dr. Rubio will be consulted Noncompliant with CPAP machine Oxygen was good last night at 90% Wound care consulted Dr. Edenilson Prakash good Bowels are a bit loose and he does have fecal incontinence Review of Systems General: Fatigue Neurological: Weakness, Incoordination Objective Exam Vital Signs Vital Signs Date Time Temp Pulse Resp B/P (MAP) Pulse Ox O2 Delivery O2 Flow Rate FiO2 02/22/21 21:18 96 Room Air 02/22/21 20:00 36.6 67 18 104/67 (79) Capillary Refill : General Appearance: No Apparent Distress, WD/WN, Chronically ill HEENT: PERRL/EOMI, Normal ENT Inspection, Pharynx Normal Neck: Full Range of Motion, Normal Inspection, Non Tender, Supple, Carotid Bruit Respiratory: Chest Non Tender, Lungs Clear, Normal Breath Sounds, No Accessory Muscle Use, No Respiratory Distress Cardiovascular: Regular Rate, Rhythm, No Edema, No Gallop, No JVD, No Murmur, Normal Peripheral Pulses Gastrointestinal: Normal Bowel Sounds, No Organomegaly, No Pulsatile Mass, Non Tender, Soft Back: Normal Inspection, No CVA Tenderness, No Vertebral Tenderness Extremity: Normal Capillary Refill, Normal Inspection, Normal Range of Motion, Non Tender, No Calf Tenderness, No Pedal Edema Neurologic/Psychiatric: Alert, Oriented x3, Normal Mood/Affect, durability technician II-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 FIM Transfers Therapy Code Descriptions/Definitions Functional [place] Measure: 0=Not Assessed/NA 4=Minimal Assistance 1=Total Assistance 5=Supervision or Setup 2=Maximal Assistance 6=Modified [place] 3=Moderate Assistance 7=Complete IndependenceSCALE: Activities may be completed with or without assistive devices. 2-Iqbmehitnx-zguahay completes the activity by him/herself with no assistance from a helper. 5-Set-up or Clean-up Assistance-helper sets up or cleans up; patient completes activity. [place] assists only prior to or following the activity. 4-Supervision or Touching Assistance-helper provides verbal cues and/or touching/steadying and/or contact guard assistance as patient completes activity. Assistance may be provided throughout the activity or intermittently. 3-Partial/Moderate Assistance-helper does LESS THAN HALF the effort. [place] lifts, holds or supports trunk or limbs, but provides less than half the effort. 2-Substantial/Maximal Assistance-helper does MORE THAN HALF the effort. [place] lifts or holds trunk or limbs and provides more than half the effort. 1-Qltodzpxp-oibssd does ALL the effort. Patient does none of the effort to complete the activity. Or, the assistance of 2 or more helpers is required for the patient to complete the activity. If activity was not attempted, code reason: 7-Patient Refused. 9-Not Applicable-not attempted and the patient did not perform the activity before the current illness, exacerbation or injury. 10-Not Attempted due to Environmental Limitations-(lack of equipment, weather restraints, etc.). 88-Not Attempted due to Medical Conditions or Safety Concerns. Roll Left to Right (QC): 3 Sit to Lying (QC): 1 Sit to Stand (QC): 1 Chair/Pfc-dq-Lqmue Xfer(QC): 1 Car Transfer (QC): 88 Gait Training Does the Patient Walk?: No and Walking Goal NOT indicated Walk 10 feet (QC): 88 Walk 50 ft with 2 Turns(QC): 88 Walk 150 ft (QC): 88 Walking 10ft/uneven surface-QC: 88 Wheelchair Training Does the Pt Use a Wheelchair?: Yes Distance: 100'x2 Wheel 50 ft with 2 turns (QC): 3 Wheel 150 ft (QC): 3 Type of Wheelchair: Manual Stair Training 1 Step (curb) (QC): 88 4 Steps (QC): 88 12 Steps (QC): 88 Balance Picking up an Object (QC): 88 ADL-Treatment Eating (QC): 4 Oral Hygiene (QC): 4 Bathing Location: L Arm, R Arm, L Upper Leg, R Upper Leg, L Lower Leg (including foot), R Lower Leg (including foot), Chest, Abdomen, Buttocks, Perineal Area Shower/Bathe Self (QC): 3 Upper Body Dressing (QC): 1 Lower Body Dressing (QC): 1 On/Off Footwear (QC): 2 Toileting Hygiene (QC): 1 Toilet Transfer (QC): 1 Assessment/Plan Assessment and Plan Assess & Plan/Chief Complaint Assessment: 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 and subsequent neurological deficits Lumbar L4-L5 subarticular recess narrowing B/L Left-sided weakness Hepatic Hemangioma Systolic Heart Failure LFT elevation LBBB Previous hypotension Obesity CAD Dementia/cognitive impairment GERD PUD PVD Diabetic polyneuropathy Progressive weakness High risk of falling Gait disturbance Spasticity T2DM Constipation Edema HTN Paroxysmal A-fib Thrombocytopenia Urinary Retention Status post UTI (resolved) BAM on CPAP Cystoscopy on 02/18/2021 Plan: Aggressive PT, OT, and speech therapy Order basic lab work in the morning Review records, talk to his family members as they are more in tune with his medical condition then the patient himself Neurology follow up Consult Dr. Rubio for A. fib 02/11/2021: Supportive care Dr. Rubio consult Poor memory recall noted 02/12/2021: Incontinence care Aggressive therapy 02/13/2021: Incontinence care Aggressive therapy 02/14/2021: Attempt condom catheter due to incontinence Monitor for retention Dr. Welsh consult 02/15/2021: Appreciate urology management Aggressive therapy Send records to [facility] 02/16/2021: Supportive care Send records to [facility] from [facility] Continue aggressive treatment Cystoscopy tomorrow 02/17/2021: Cystoscopy tomorrow Bowel evacuation 02/18/2021: Cystoscopy Appreciate urology 02/19/2021: Supportive care Urology appreciated 02/20/2021: Supportive care Incontinence care 02/21/2021: Supportive care Incontinence care Appreciate urology 02/22/2021: Detrol for incontinence Appreciate urology Continue aggressive treatment (1) Cervical spinal cord compression (2) Atrial fibrillation (3) Anticoagulation adequate with anticoagulant therapy (4) Urinary retention CARMELLA ESTRADA DO Feb 22, 2021 20:45
[2021-02-22] MEDS: TOLTERODINE LA 4 MG (DETROL) CAP PO SCH (21:15)
[2021-02-22] MEDS: MELATONIN 3 MG TABLET PO PRN (21:16)
[2021-02-22] MEDS: SIMvastatin 40 MG (ZOCOR) TAB PO SCH (21:16)
[2021-02-23] MEDS: LEVOTHYROXINE 100 MCG (LEVOTHROID) TAB PO SCH (06:15)
[2021-02-23] MEDS: KCL 10 MEQ TAB (MICRO K) PO SCH (06:15)
[2021-02-23] MEDS: MULTIVIT W/MINERALS TAB (THERAGRAN M) PO SCH (06:15)
[2021-02-23] MEDS: BETHANECHOL 10 MG (URECHOLINE) TAB PO SCH ×4 (06:15→20:20)
[2021-02-23] MEDS: inSUlin ASPART (NovoLOG) 1 UNIT/0.01 ML (CHARGE PER UNIT) SC SCH ×4 (06:15→20:19)
[2021-02-23 08:00] VITALS: BP 117/56
--- NOTE | 2021-02-23 08:37 | PM&R Progress Note ---
Subjective HPI/CC On Admission Date Seen by Provider: Feb 23, 2021 Time Seen by Provider: 08:45 Subjective/Events-last exam 02/23/2021: Patient doing well Required in and out caths yesterday due to 490 retention Detrol has been started by urology [facility] still in process Bed mobility improved 02/22/2021: Patient doing well Urology started Detrol for incontinence [facility] pending Bowels are moving well Still requiring Coleen lift 02/21/2021: Patient reports no significant concerns Bladder scanning per urology rec No word from [facility] Incontinent of bowel today Labs look good 02/20/2021: Patient has no new complaints today Denies any new issues No pain is reported Incontinence is an issue Fecal incontinence also an issue 02/19/2021: Patient had an uneventful night Denies any new issues Working on bladder retraining Check meds and labs 02/18/2021: Patient doing well Has no complaints Cystoscopy to be done today by urology No pain is reported Bowel evacuation ordered 02/17/2021: Patient doing really well Bowels moved yesterday All records sent to [facility] Has no rectal tone May need a suppository to evacuate bowels and treated like a paraplegic Bottom wound appears to be very superficial on a cushion 02/16/2021: Pt doing well No issues Bowels moved yesterday and fecal incontinence Frausto cath in Cystoscopy by Dr. Welsh on Sunday02/15/2021: Pt doing a little better Frausto required and Dr. Welsh consulted Spot checks of oxygen without CPAP during the night are okay Still a Coleen-lift 02/14/2021: Pt doing well Condom catheter will be attempted Platelet count 108 Wound looks good BP and blood sugar good No pain Bowels are moving 02/13/2021: Patient doing well Has no needs Bowels are moving well No issues Sugars are reviewed 02/12/2021: Patient doing well Incontinent of bowel and bladder a lot Able to move himself and turn himself in bed Check meds and labs Cognitive deficit could preclude independent living 02/11/2021: Patient doing pretty well Dr. Rubio will be consulted Noncompliant with CPAP machine Oxygen was good last night at 90% Wound care consulted Dr. Edenilson Prakash good Bowels are a bit loose and he does have fecal incontinence Review of Systems General: Fatigue, Malaise Neurological: Weakness, Incoordination Objective Exam Vital Signs Vital Signs Date Time Temp Pulse Resp B/P (MAP) Pulse Ox O2 Delivery O2 Flow Rate FiO2 02/23/21 20:45 Room Air 02/23/21 20:17 36.8 54 18 121/69 (86) 96 Capillary Refill : General Appearance: No Apparent Distress, WD/WN, Chronically ill HEENT: PERRL/EOMI, Normal ENT Inspection, Pharynx Normal Neck: Full Range of Motion, Normal Inspection, Non Tender, Supple, Carotid Bruit Respiratory: Chest Non Tender, Lungs Clear, Normal Breath Sounds, No Accessory Muscle Use, No Respiratory Distress Cardiovascular: Regular Rate, Rhythm, No Edema, No Gallop, No JVD, No Murmur, Normal Peripheral Pulses Gastrointestinal: Normal Bowel Sounds, No Organomegaly, No Pulsatile Mass, Non Tender, Soft Back: Normal Inspection, No CVA Tenderness, No Vertebral Tenderness Extremity: Normal Capillary Refill, Normal Inspection, Normal Range of Motion, Non Tender, No Calf Tenderness, No Pedal Edema Neurologic/Psychiatric: Alert, Oriented x3, Normal Mood/Affect, hose cementer II-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 FIM Transfers Therapy Code Descriptions/Definitions Functional [place] Measure: 0=Not Assessed/NA 4=Minimal Assistance 1=Total Assistance 5=Supervision or Setup 2=Maximal Assistance 6=Modified [place] 3=Moderate Assistance 7=Complete IndependenceSCALE: Activities may be completed with or without assistive devices. 8-Yecfjhdxqe-iitcjah completes the activity by him/herself with no assistance from a helper. 5-Set-up or Clean-up Assistance-helper sets up or cleans up; patient completes activity. [place] assists only prior to or following the activity. 4-Supervision or Touching Assistance-helper provides verbal cues and/or t ouching/steadying and/or contact guard assistance as patient completes activity. Assistance may be provided throughout the activity or intermittently. 3-Partial/Moderate Assistance-helper does LESS THAN HALF the effort. [place] lifts, holds or supports trunk or limbs, but provides less than half the effort. 2-Substantial/Maximal Assistance-helper does MORE THAN HALF the effort. [place] lifts or holds trunk or limbs and provides more than half the effort. 3-Ovtiwrioo-ylgbhr does ALL the effort. Patient does none of the effort to complete the activity. Or, the assistance of 2 or more helpers is required for the patient to complete the activity. If activity was not attempted, code reason: 7-Patient Refused. 9-Not Applicable-not attempted and the patient did not perform the activity before the current illness, exacerbation or injury. 10-Not Attempted due to Environmental Limitations-(lack of equipment, weather restraints, etc.). 88-Not Attempted due to Medical Conditions or Safety Concerns. Roll Left to Right (QC): 3 Sit to Lying (QC): 1 Sit to Stand (QC): 1 Chair/Cur-lr-Cjxsz Xfer(QC): 1 Car Transfer (QC): 88 Gait Training Does the Patient Walk?: No and Walking Goal NOT indicated Walk 10 feet (QC): 88 Walk 50 ft with 2 Turns(QC): 88 Walk 150 ft (QC): 88 Walking 10ft/uneven surface-QC: 88 Wheelchair Training Does the Pt Use a Wheelchair?: Yes Distance: 100'x2 Wheel 50 ft with 2 turns (QC): 3 Wheel 150 ft (QC): 3 Type of Wheelchair: Manual Stair Training 1 Step (curb) (QC): 88 4 Steps (QC): 88 12 Steps (QC): 88 Balance Picking up an Object (QC): 88 ADL-Treatment Eating (QC): 4 Oral Hygiene (QC): 4 Bathing Location: L Arm, R Arm, L Upper Leg, R Upper Leg, L Lower Leg (including foot), R Lower Leg (including foot), Chest, Abdomen, Buttocks, Perineal Area Shower/Bathe Self (QC): 3 Upper Body Dressing (QC): 1 Lower Body Dressing (QC): 1 On/Off Footwear (QC): 2 Toileting Hygiene (QC): 1 Toilet Transfer (QC): 1 Assessment/Plan Assessment and Plan Assess & Plan/Chief Complaint Assessment: 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 and subsequent neurological deficits Lumbar L4-L5 subarticular recess narrowing B/L Left-sided weakness Hepatic Hemangioma Systolic Heart Failure LFT elevation LBBB Previous hypotension Obesity CAD Dementia/cognitive impairment GERD PUD PVD Diabetic polyneuropathy Progressive weakness High risk of falling Gait disturbance Spasticity T2DM Constipation Edema HTN Paroxysmal A-fib Thrombocytopenia Urinary Retention Status post UTI (resolved) BAM on CPAP Cystoscopy on 02/18/2021 Plan: Aggressive PT, OT, and speech therapy Order basic lab work in the morning Review records, talk to his family members as they are more in tune with his medical condition then the patient himself Neurology follow up Consult Dr. Rubio for A. fib 02/11/2021: Supportive care Dr. Rubio consult Poor memory recall noted 02/12/2021: Incontinence care Aggressive therapy 02/13/2021: Incontinence care Aggressive therapy 02/14/2021: Attempt condom catheter due to incontinence Monitor for retention Dr. Welsh consult 02/15/2021: Appreciate urology management Aggressive therapy Send records to [facility] 02/16/2021: Supportive care Send records to [facility] from [facility] Continue aggressive treatment Cystoscopy tomorrow 02/17/2021: Cystoscopy tomorrow Bowel evacuation 02/18/2021: Cystoscopy Appreciate urology 02/19/2021: Supportive care Urology appreciated 02/20/2021: Supportive care Incontinence care 02/21/2021: Supportive care Incontinence care Appreciate urology 02/22/2021: Detrol for incontinence Appreciate urology Continue aggressive treatment 02/23/2021 Patient will need nursing care at discharge Appreciate urology (1) Cervical spinal cord compression (2) Atrial fibrillation (3) Anticoagulation adequate with anticoagulant therapy (4) Urinary retention CARMELLA ESTRADA DO Feb 23, 2021 08:37
[2021-02-23] MEDS: APIXABAN 5 MG (ELIQUIS) TABLET PO SCH ×2 (08:51→20:20)
[2021-02-23] MEDS: OMEGA 3 (FISH OIL) 1000 MG CAP PO SCH ×2 (08:51→20:20)
[2021-02-23] MEDS: FAMOTIDINE 20 MG (PEPCID) TABLET PO SCH (08:52)
[2021-02-23] MEDS: lisINopril 10 MG (PRINIVIL) TABLET PO SCH (08:52)
[2021-02-23] MEDS: MAGNESIUM OXIDE (MAG-OX)400 MG TAB PO SCH (08:52)
[2021-02-23] MEDS: LOSARTAN 50 MG (COZAAR) TAB PO SCH (08:52)
[2021-02-23] MEDS: FERROUS SULF 325 MG (IRON) TAB PO SCH (08:55)
[2021-02-23] MEDS: CALCIUM CARB + VIT D 600 MG (CALCARB + D) TAB PO SCH (08:55)
[2021-02-23] MEDS: meTOprolol SUCCINATE 100 MG (TOPROL XL) TAB PO SCH (08:55)
[2021-02-23] MEDS: FUROSEMIDE 20 MG (LASIX) TAB PO SCH (08:55)
[2021-02-23] MEDS: DOCUSATE SODIUM 100 MG (COLACE) CAP PO SCH ×2 (08:55→19:22)
[2021-02-23] MEDS: polyethylene glycoL POWDER 17 GM (MIRALAX) PACK PO SCH ×2 (08:56→19:22)
[2021-02-23] MEDS: SENNA W/DOCUSATE (SENOKOT S) TABLET PO SCH ×2 (08:56→19:22)
--- NOTE | 2021-02-23 10:51 | Physical Therapy Daily Note ---
PT Daily Note-Current Subjective Pt in bed upon arrival and agrees to co-treat. Pt has no c/o pain at this time. Mental Status Patient Orientation: Person, Place, Time, Situation Transfers SCALE: Activities may be completed with or without assistive devices. 9-Uzvlgkdbro-ogksunw completes the activity by him/herself with no assistance from a helper. 5-Set-up or Clean-up Assistance-helper sets up or cleans up; patient completes activity. [place] assists only prior to or following the activity. 4-Supervision or Touching Assistance-helper provides verbal cues and/or touching/steadying and/or contact guard assistance as patient completes activity. Assistance may be provided throughout the activity or intermittently. 3-Partial/Moderate Assistance-helper does LESS THAN HALF the effort. [place] lifts, holds or supports trunk or limbs, but provides less than half the effort. 2-Substantial/Maximal Assistance-helper does MORE THAN HALF the effort. [place] lifts or holds trunk or limbs and provides more than half the effort. 4-Uceotlqkm-qwloji does ALL the effort. Patient does none of the effort to complete the activity. Or, the assistance of 2 or more helpers is required for the patient to complete the activity. If activity was not attempted, code reason: 7-Patient Refused. 9-Not Applicable-not attempted and the patient did not perform the activity before the current illness, exacerbation or injury. 10-Not Attempted due to Environmental Limitations-(lack of equipment, weather restraints, etc.). 88-Not Attempted due to Medical Conditions or Safety Concerns. Roll Left & Right (QC): 3 Sit to Lying (QC): 3 Lying to Sitting/Side of Bed(Q: 2 Chair/Ypp-jc-Lhfdj Xfer(QC): 1 Exercises Supine Ex: Rolling Treatments Co-treat with 2 skilled clinicians d/t pt poor mobility, endurance, weakness, safety, and decrease fall risk. OT focused on dressing, ADLs, and UE strengthening/coordination. PT focused on mobility, balance, and LE strengthening/coordination. Pt rolls to L side to attempt to sit EOB, pt unable to complete d/t pain on L LE. Pt rolls to R side and sits EOB, ModA to advance L LE to EOB and to bring torso upright. Pt sits EOB and completes ADLs (see OT note) followed by dynamic balance activities, weight shifting and reaching in all planes. During balance training, CGA/Cici required to steady pt. Pt sit to supine MaxA for LE and torso, pt rolls as lift sling is placed and is transferred to WC w/ ck lift. Pt remains in WC with all needs met, call light in hand. Assessment Current Status: Poor Progress No improvement on mobility and little strength improvement. Pt has low activity tolerance PT Short Term Goals Short Term Goals Time Frame: Feb 17, 2021 Roll Left & Right: 3 Sit to lyin Lying to sitting on side of be: 3 Wheel 50ft w/2 turns: 4 Wheel 150 feet: 4 PT Mcfp Goals Mcfp Goals PT Professor Of Geology Goals Time Frame: Mar 03, 2021 Roll Left & Right (QC): 4 Sit to Lying (QC): 4 Lying-Sitting on Side/Bed(QC): 4 Sit to Stand (QC): 88 Chair/Qbx-co-Woipy Xfer(QC): 88 Toilet Transfer (QC): 88 Car Transfer (QC): 88 Does the Patient Walk: No and Walking Goal NOT indicated Walk 10 feet (QC): 88 Walk 50ft with 2 Turns (QC): 88 Walk 150 ft (QC): 88 Walking 10ft on Uneven Surface: 88 1 Step (curb) (QC): 88 4 Steps (QC): 88 12 Steps (QC): 88 Picking up an Object (QC): 88 Wheel 50 feet with 2 turns (QC: 6 Wheel 150 feet: 6 PT Plan Treatment/Plan Treatment Plan: Continue Plan of Care Treatment Plan: Bed Mobility, Education, Functional Activity Jorge, Functional Strength, Group Therapy, Gait, Safety, Therapeutic Exercise, Transfers Treatment Duration: Mar 03, 2021 Frequency: At least 5 of 7 days/Wk (IRF) Estimated Hrs Per Day: 1.5 hours per day Patient and/or Family Agrees t: Yes Time/GCodes Time In: 1000 Time Out: 1100 Total Billed Treatment 1, NM x3, LIEN ALEXANDRE ENVIRONMENTAL GEOLOGIST Feb 23, 2021 10:51
--- NOTE | 2021-02-23 11:13 | Occupational Ther Daily Note ---
OT Current Status-Daily Note Subjective Pt denies pain, agreeable to treatment Appearance Pt left sitting upright in w/c, all needs within reach. ADL-Treatment Therapy Code Descriptions/Definitions Functional [place] Measure: 0=Not Assessed/NA 4=Minimal Assistance 1=Total Assistance 5=Supervision or Setup 2=Maximal Assistance 6=Modified [place] 3=Moderate Assistance 7=Complete IndependenceSCALE: Activities may be completed with or without assistive devices. 3-Cfmoderecy-ncdqkqn completes the activity by him/herself with no assistance from a helper. 5-Set-up or Clean-up Assistance-helper sets up or cleans up; patient completes activity. [place] assists only prior to or following the activity. 4-Supervision or Touching Assistance-helper provides verbal cues and/or touching/steadying and/or contact guard assistance as patient completes activity. Assistance may be provided throughout the activity or intermittently. 3-Partial/Moderate Assistance-helper does LESS THAN HALF the effort. [place] lifts, holds or supports trunk or limbs, but provides less than half the effort. 2-Substantial/Maximal Assistance-helper does MORE THAN HALF the effort. [place] lifts or holds trunk or limbs and provides more than half the effort. 2-Bmjrjrkph-xfnjeu does ALL the effort. Patient does none of the effort to complete the activity. Or, the assistance of 2 or more helpers is required for the patient to complete the activity. If activity was not attempted, code reason: 7-Patient Refused. 9-Not Applicable-not attempted and the patient did not perform the activity before the current illness, exacerbation or injury. 10-Not Attempted due to Environmental Limitations-(lack of equipment, weather restraints, etc.). 88-Not Attempted due to Medical Conditions or Safety Concerns. Oral Hygiene (QC): 5 On/Off Footwear: 3 Toileting Hygiene (QC): 1 Co-treat with 2 skilled clinicians d/t pt poor mobility, endurance, weakness, safety, and increased fall risk. OT focused on dressing, ADLs, sitting balance and UE strengthening/coordination. PT focused on mobility, balance, and LE strengthening/coordination. Pt continues to exhibit pain through L thigh when rolling L. Thus he rolled R to sit EOB. MAX a to sit upright as he required assist to bring BLE's off edge of bed and elevate torso. Initially, min a needed for sitting balance, improves once feet supported on floor. Pt completed ADLs and dynamic sitting balance activity at EOB. Intermittent Min A needed with loss of balance when reaching in different planes. Cues for upright posture initially needed, yet as session continued, pt able to self adjust. Pt continues to demonstrate some lag, but overall Improved coordination of LUE noted during reaching/catching activities. Reminders on correct sequencing steps of sock aid with min-mod a needed to don sock onto tool. Dep to lift RLE off floor due to weakness. Pt sat EOB to complete oral care and face washing with set up only. Improved sitting tolerance with only short rest breaks needed. Pt returned to supine in order to place ck sling. Dep to transfer to w/c. Education OT Patient Education: Correct positioning, Energy conservation, Modified ADL t echniques, Progress toward Goal/Update tx plan, Purpose of tx/functional activities, Reviewed precautions, Rehab process, Safety issues, Transfer techniques, Use of adapted equipment Teaching Recipient: Patient Teaching Methods: Demonstration, Discussion Response to Teaching: Verbalize Understanding, Return Demonstration, Reinforcement Needed OT Short Term Goals Short Term Goals Time Frame: Feb 24, 2021 Eatin Oral hygiene: 4 Toileting hygiene: 2 Shower/bathe self: 2 Upper body dressin Lower body dressin Putting on/taking off footwear: 3 OT Gift Manager Goals Mcfp Goals Time Frame: Mar 04, 2021 Eating (QC): 6 Oral Hygiene (QC): 5 Toileting Hygiene (QC): 4 Shower/Bathe Self (QC): 3 Upper Body Dressing (QC): 4 Lower Body Dressing (QC): 3 On/Off Footwear (QC): 4 1=Demonstrate adherence to instructed precautions during ADL tasks. 2=Patient will verbalize/demonstrate understanding of assistive devices/modifications for ADL. 3=Patient will improve strength/tolerance for activity to enable patient to perform ADL's. OT Education/Plan Problem List/Assessment Assessment: Decreased Activ Tolerance, Decreased Safety Aware, Decreased UE Strength, Dependent Transfers, Impaired Bed Mobility, Impaired Cognition, Impaired Coordination, Impaired Funct Balance, Impaired I ADL's, Impaired Self- Care Skills, Restricted Funct UE ROM Discharge Recommendations Plan/Recommendations: Continue POC Treatment Plan/Plan of Care Treatment,Training & Education: Yes Patient would benefit from OT for education, treatment and training to promote independence in ADL's, mobility, safety and/or upper extremity function for ADL's. Plan of Care: ADL Retraining, Functional Mobility, Group Exercise/Act as Ind, UE Funct Exercise/Act, W/C Management Training Treatment Duration: Mar 04, 2021 Frequency: At least 5 of 7 days/Wk (IRF) Estimated Hrs Per Day: 1.5 hours per day Agreement: Yes Rehab Potential: Poor Time/GCodes Start Time: 10:00 Stop Time: 11:00 Total Time Billed (hr/min): 60 Billed Treatment Time 1 visit, ADL x2 FA x2 Co-treat with PT for 60 min Antonieta Angel OT Feb 23, 2021 11:13
--- NOTE | 2021-02-23 12:06 | Occupational Ther Daily Note ---
OT Current Status-Daily Note Subjective Pt denies pain, agreeable to treatment. Appearance Pt left sitting in w/c, all needs within reach. ADL-Treatment Therapy Code Descriptions/Definitions Functional [place] Measure: 0=Not Assessed/NA 4=Minimal Assistance 1=Total Assistance 5=Supervision or Setup 2=Maximal Assistance 6=Modified [place] 3=Moderate Assistance 7=Complete IndependenceSCALE: Activities may be completed with or without assistive devices. 4-Hsrsnyoluh-lfyygsh completes the activity by him/herself with no assistance from a helper. 5-Set-up or Clean-up Assistance-helper sets up or cleans up; patient completes activity. [place] assists only prior to or following the activity. 4-Supervision or Touching Assistance-helper provides verbal cues and/or touching/steadying and/or contact guard assistance as patient completes acti vity. Assistance may be provided throughout the activity or intermittently. 3-Partial/Moderate Assistance-helper does LESS THAN HALF the effort. [place] lifts, holds or supports trunk or limbs, but provides less than half the effort. 2-Substantial/Maximal Assistance-helper does MORE THAN HALF the effort. [place] lifts or holds trunk or limbs and provides more than half the effort. 2-Nsarapfef-mfrklq does ALL the effort. Patient does none of the effort to complete the activity. Or, the assistance of 2 or more helpers is required for the patient to complete the activity. If activity was not attempted, code reason: 7-Patient Refused. 9-Not Applicable-not attempted and the patient did not perform the activity before the current illness, exacerbation or injury. 10-Not Attempted due to Environmental Limitations-(lack of equipment, weather restraints, etc.). 88-Not Attempted due to Medical Conditions or Safety Concerns. Other Treatment Pt performed UE exercises with goal to promote increased strength, endurance, coordination, and ROM for adls and transfers. 2 sets each. All RUE exercises performed with 2# wrist weights, 10 reps each. LUE fist set performed without weight, 10 reps. 2nd set performed with 1# hand held weight until fatigue, ~ 7-8 reps each. Improved coordination and control of movement exhibited. Min cues for technique. Education OT Patient Education: Correct positioning, Exercise program, Progress toward Goal/Update tx plan, Purpose of tx/functional activities, Rehab process Teaching Recipient: Patient Teaching Methods: Demonstration, Discussion Response to Teaching: Verbalize Understanding, Return Demonstration, Reinforcem ent Needed OT Short Term Goals Short Term Goals Time Frame: Feb 24, 2021 Eatin Oral hygiene: 4 Toileting hygiene: 2 Shower/bathe self: 2 Upper body dressin Lower body dressin Putting on/taking off footwear: 3 OT Skilled Nursing Goals Supervisor Assembly Department Goals Time Frame: Mar 04, 2021 Eating (QC): 6 Oral Hygiene (QC): 5 Toileting Hygiene (QC): 4 Shower/Bathe Self (QC): 3 Upper Body Dressing (QC): 4 Lower Body Dressing (QC): 3 On/Off Footwear (QC): 4 1=Demonstrate adherence to instructed precautions during ADL tasks. 2=Patient will verbalize/demonstrate understanding of assistive devices/modifications for ADL. 3=Patient will improve strength/tolerance for activity to enable patient to perform ADL's. OT Education/Plan Problem List/Assessment Assessment: Decreased Activ Tolerance, Decreased Safety Aware, Decreased UE Strength, Dependent Transfers, Impaired Bed Mobility, Impaired Coordination, Impaired Funct Balance, Impaired I ADL's, Impaired Self-Care Skills, Restricted Funct UE ROM Discharge Recommendations Plan/Recommendations: Continue POC Treatment Plan/Plan of Care Treatment,Training & Education: Yes Patient would benefit from OT for education, treatment and training to promote independence in ADL's, mobility, safety and/or upper extremity function for ADL's. Plan of Care: ADL Retraining, Functional Mobility, Group Exercise/Act as Ind, UE Funct Exercise/Act, W/C Management Training Treatment Duration: Mar 04, 2021 Frequency: At least 5 of 7 days/Wk (IRF) Estimated Hrs Per Day: 1.5 hours per day Agreement: Yes Rehab Potential: Poor Time/GCodes Start Time: 11:30 Stop Time: 12:00 Total Time Billed (hr/min): 30 Billed Treatment Time 1 visit, EX Antonieta John OT Feb 23, 2021 12:06
--- NOTE | 2021-02-23 13:34 | Physical Therapy Daily Note ---
PT Daily Note-Current Subjective Pt in upon arrival and agrees to PT. Pt reports he is not having any pain at the moment. Mental Status Patient Orientation: Person, Place, Time Transfers SCALE: Activities may be completed with or without assistive devices. 4-Xiwtruzkpb-dnpbigc completes the activity by him/herself with no assistance from a helper. 5-Set-up or Clean-up Assistance-helper sets up or cleans up; patient completes activity. [place] assists only prior to or following the activity. 4-Supervision or Touching Assistance-helper provides verbal cues and/or touching/steadying and/or contact guard assistance as patient completes activity. Assistance may be provided throughout the activity or intermittently. 3-Partial/Moderate Assistance-helper does LESS THAN HALF the effort. [place] lifts, holds or supports trunk or limbs, but provides less than half the effort. 2-Substantial/Maximal Assistance-helper does MORE THAN HALF the effort. [place] lifts or holds trunk or limbs and provides more than half the effort. 4-Vamsqtpqs-goxagn does ALL the effort. Patient does none of the effort to complete the activity. Or, the assistance of 2 or more helpers is required for the patient to complete the activity. If activity was not attempted, code reason: 7-Patient Refused. 9-Not Applicable-not attempted and the patient did not perform the activity before the current illness, exacerbation or injury. 10-Not Attempted due to Environmental Limitations-(lack of equipment, weather restraints, etc.). 88-Not Attempted due to Medical Conditions or Safety Concerns. Roll Left & Right (QC): 3 Exercises Supine Ex: Ankle pumps, Quad Set, Glut sets, Heel Slides, Short Arc Quads, Hip abd/add Supine Reps: 10 Treatments Pt in upon arrival and agrees to PT. PT uses ck lift to TF pt from to pt bed. Pt then rolls L and R for brief change and needed assistance for cleaning. Pt requires modA to roll L and R. Pt then performs supine exs requires AAROM/PROM on LLE in order to complete. Pt in bed upon departure call light in hand and all needs met. Assessment Current Status: Poor Progress Pt required frequent rest breaks while performing mobility and supine exs. LLE r equires AAROM/PROM in order to complete supine exs. PT Short Term Goals Short Term Goals Time Frame: Feb 17, 2021 Roll Left & Right: 3 Sit to lyin Lying to sitting on side of be: 3 Wheel 50ft w/2 turns: 4 Wheel 150 feet: 4 PT Social Services Goals Retirement Goals PT Retirement Goals Time Frame: Mar 03, 2021 Roll Left & Right (QC): 4 Sit to Lying (QC): 4 Lying-Sitting on Side/Bed(QC): 4 Sit to Stand (QC): 88 Chair/Nnf-pq-Tperr Xfer(QC): 88 Toilet Transfer (QC): 88 Car Transfer (QC): 88 Does the Patient Walk: No and Walking Goal NOT indicated Walk 10 feet (QC): 88 Walk 50ft with 2 Turns (QC): 88 Walk 150 ft (QC): 88 Walking 10ft on Uneven Surface: 88 1 Step (curb) (QC): 88 4 Steps (QC): 88 12 Steps (QC): 88 Picking up an Object (QC): 88 Wheel 50 feet with 2 turns (QC: 6 Wheel 150 feet: 6 PT Plan Problem List Problem List: Activity Tolerance, Functional Strength, Transfer Treatment/Plan Treatment Plan: Continue Plan of Care Treatment Plan: Bed Mobility, Education, Functional Activity Jorge, Functional Strength, Group Therapy, Gait, Safety, Therapeutic Exercise, Transfers Treatment Duration: Mar 03, 2021 Frequency: At least 5 of 7 days/Wk (IRF) Estimated Hrs Per Day: 1.5 hours per day Patient and/or Family Agrees t: Yes Safety Risks/Education Patient Education: Correct Positioning Teaching Recipient: Patient Teaching Methods: Discussion Response to Teaching: Return Demonstration Time/GCodes Time In: 1300 Time Out: 1330 Total Billed Treatment Time: 30 Total Billed Treatment 1, FA, EX PEPE ASCENCIO LIEN SEARCHER Feb 23, 2021 13:34
--- NOTE | 2021-02-23 16:49 | Progress Note - Cardiology ---
Cardiology SOAP Progress Note Subjective: Lying in bed States his son is attempting to get him transferred to [facility] for further eval He feels his left sided weakness is not improving No c/o CP or palpitations or SOB Objective: I&O/Vital Signs 02/23/21 02/23/21 08:00 09:00 Temp 36.4 Pulse 81 Resp 18 B/P (MAP) 117/56 (76) Pulse Ox 94 O2 Delivery Room Air Room Air 02/23/21 00:00 Intake Total 700 ml Output Total 25 ml Balance 675 ml Constitutional: AAO x 3, well-developed, well-nourished Respiratory: No accessory muscle use, No respiratory distress; chest expansion is symmetric, chest is bilaterally symmetric, other (prolonged exp phase) Cardiovascular: irregularly irregular; No JVD; S1 and S2 Gastrointestional: No tender; soft, round, audible bowel sounds Extremities: other (mild bilat LE swelling) Neurologic/Psychiatric: other (LUE and LLE 4/5) Skin: No rash on exposed areas, No ulcerations on exposed areas Results/Procedures: Labs Laboratory Tests 02/22/21 21:04: Glucometer 186H 02/23/21 06:11: Glucometer 123H 02/23/21 11:20: Glucometer 158H 02/23/21 16:38: Glucometer 139H A/P: Assessment: Cervical myelopathy with LUE and LLE weakness - management per medical services Chronic a-fib - OAC with Eliquis HTN - controlled HLD - statin tx Cardiomyopathy - undetermined length of time - echocardiogram from 02-04-21 at [facility] by Dr. Michaels showed LVEF 25%. Mod pulmonary HTN BAM - CPAP tx COPD DM 2 H/O TURP Plan: Continue OAC with Eliquis Cardiomyopathy of undetermined source, managed chronically by his jingle writer in Dr Slick Yoo Continue current medication regimen Monitor lab from time to time Possible transfer to SNF pre Rehab Services JULIETTE KENNY Feb 23, 2021 16:49
[2021-02-23] MEDS: TAMSULOSIN 0.4 MG (FLOMAX) CAP PO SCH (17:30)
[2021-02-23] MEDS: DIGOXIN 0.125 MG (LANOXIN) TAB PO SCH (17:30)
[2021-02-23 20:17] VITALS: BP 121/69
[2021-02-23] MEDS: SIMvastatin 40 MG (ZOCOR) TAB PO SCH (20:20)
[2021-02-23] MEDS: TOLTERODINE LA 4 MG (DETROL) CAP PO SCH (20:20)
[2021-02-23] MEDS: MELATONIN 3 MG TABLET PO PRN (20:24)
[2021-02-24] MEDS: inSUlin ASPART (NovoLOG) 1 UNIT/0.01 ML (CHARGE PER UNIT) SC SCH ×4 (05:39→22:18)
[2021-02-24] MEDS: MULTIVIT W/MINERALS TAB (THERAGRAN M) PO SCH (06:02)
[2021-02-24] MEDS: BETHANECHOL 10 MG (URECHOLINE) TAB PO SCH ×4 (06:02→22:16)
[2021-02-24] MEDS: LEVOTHYROXINE 100 MCG (LEVOTHROID) TAB PO SCH (06:02)
[2021-02-24] MEDS: KCL 10 MEQ TAB (MICRO K) PO SCH (06:02)
[2021-02-24 07:39] VITALS: BP 101/70
[2021-02-24] MEDS: MAGNESIUM OXIDE (MAG-OX)400 MG TAB PO SCH (07:42)
[2021-02-24] MEDS: FERROUS SULF 325 MG (IRON) TAB PO SCH (07:42)
[2021-02-24] MEDS: CALCIUM CARB + VIT D 600 MG (CALCARB + D) TAB PO SCH (07:42)
[2021-02-24] MEDS: FAMOTIDINE 20 MG (PEPCID) TABLET PO SCH (07:42)
[2021-02-24] MEDS: APIXABAN 5 MG (ELIQUIS) TABLET PO SCH ×2 (07:43→22:16)
[2021-02-24] MEDS: FUROSEMIDE 20 MG (LASIX) TAB PO SCH (07:43)
[2021-02-24] MEDS: OMEGA 3 (FISH OIL) 1000 MG CAP PO SCH ×2 (07:43→22:15)
[2021-02-24] MEDS: LOSARTAN 50 MG (COZAAR) TAB PO SCH (07:44)
[2021-02-24] MEDS: lisINopril 10 MG (PRINIVIL) TABLET PO SCH (07:44)
[2021-02-24] MEDS: meTOprolol SUCCINATE 100 MG (TOPROL XL) TAB PO SCH (07:44)
[2021-02-24] MEDS: polyethylene glycoL POWDER 17 GM (MIRALAX) PACK PO SCH ×2 (09:08→22:20)
[2021-02-24] MEDS: DOCUSATE SODIUM 100 MG (COLACE) CAP PO SCH ×2 (09:08→22:20)
[2021-02-24] MEDS: SENNA W/DOCUSATE (SENOKOT S) TABLET PO SCH ×2 (09:09→22:20)
[2021-02-24 09:16] VITALS: BP 119/59
--- NOTE | 2021-02-24 09:59 | Physical Therapy Daily Note ---
PT Daily Note-Current Subjective Patient in bed pre tx, agrees to PT, has no complaints of pain. Will be co- treating with OT due to poor patient mobility, strength, endurance, coordinate UE and LE during activity, poor trunk strength and control, safety and reduce risk of falls. Appearance Patient in WC at bedside post tx with nurse call, phone, tray, all needs met. Mental Status Patient Orientation: Person, Place, Situation Transfers SCALE: Activities may be completed with or without assistive devices. 9-Ucgqpocpip-wncjiqn completes the activity by him/herself with no assistance from a helper. 5-Set-up or Clean-up Assistance-helper sets up or cleans up; patient completes activity. [place] assists only prior to or following the activity. 4-Supervision or Touching Assistance-helper provides verbal cues and/or touching/steadying and/or contact guard assistance as patient completes act ivity. Assistance may be provided throughout the activity or intermittently. 3-Partial/Moderate Assistance-helper does LESS THAN HALF the effort. [place] lifts, holds or supports trunk or limbs, but provides less than half the effort. 2-Substantial/Maximal Assistance-helper does MORE THAN HALF the effort. [place] lifts or holds trunk or limbs and provides more than half the effort. 3-Xgqvmaico-lqhqcy does ALL the effort. Patient does none of the effort to complete the activity. Or, the assistance of 2 or more helpers is required for the patient to complete the activity. If activity was not attempted, code reason: 7-Patient Refused. 9-Not Applicable-not attempted and the patient did not perform the activity before the current illness, exacerbation or injury. 10-Not Attempted due to Environmental Limitations-(lack of equipment, weather restraints, etc.). 88-Not Attempted due to Medical Conditions or Safety Concerns. Roll Left & Right (QC): 3 Chair/Wfd-pr-Fsfno Xfer(QC): 1 Patient needs cleaned up from urine, has to roll from side to side to clean and get new brief on and then again to place ck sling. Patient can now roll to the left side with SBA but needs min assist to roll to the right side. Patient is hoyered to . Wheelchair Training Does the Pt Use a Wheelchair?: Yes Wheel 50 ft with 2 turns (QC): 4 Type of Wheelchair: Manual 120'x2 Exercises Patient performs a seated UE activity with no support for back or trunk, working on back and abdomen strength and stability, patient needs several rest breaks. Treatments PT performed rolling, transfers, WC mobility, trunk positioning and st rengthening, OT performed cleaning, assisted with transfers, UE activity and UE positioning and safety during activity. Assessment Current Status: Poor Progress no change in mobility PT Short Term Goals Short Term Goals Time Frame: Feb 17, 2021 Roll Left & Right: 3 Sit to lyin Lying to sitting on side of be: 3 Wheel 50ft w/2 turns: 4 Wheel 150 feet: 4 PT Shell Plater Goals [place] Pl[place] Goals PT Longterm Goals Time Frame: Mar 03, 2021 Roll Left & Right (QC): 4 Sit to Lying (QC): 4 Lying-Sitting on Side/Bed(QC): 4 Sit to Stand (QC): 88 Chair/Mzd-kb-Awqkf Xfer(QC): 88 Toilet Transfer (QC): 88 Car Transfer (QC): 88 Does the Patient Walk: No and Walking Goal NOT indicated Walk 10 feet (QC): 88 Walk 50ft with 2 Turns (QC): 88 Walk 150 ft (QC): 88 Walking 10ft on Uneven Surface: 88 1 Step (curb) (QC): 88 4 Steps (QC): 88 12 Steps (QC): 88 Picking up an Object (QC): 88 Wheel 50 feet with 2 turns (QC: 6 Wheel 150 feet: 6 PT Plan Problem List Problem List: Activity Tolerance, Functional Strength, Safety, Balance, Gait, Transfer, Bed Mobility, ROM Treatment/Plan Treatment Plan: Continue Plan of Care Treatment Plan: Bed Mobility, Education, Functional Activity Jorge, Functional Strength, Group Therapy, Gait, Safety, Therapeutic Exercise, Transfers Treatment Duration: Mar 03, 2021 Frequency: At least 5 of 7 days/Wk (IRF) Estimated Hrs Per Day: 1.5 hours per day Patient and/or Family Agrees t: Yes Safety Risks/Education Patient Education: Transfer Techniques, Correct Positioning, W/C Management, Safety Issues Teaching Recipient: Patient Teaching Methods: Demonstration, Discussion Response to Teaching: Reinforcement Needed Time/GCodes Time In: 0900 Time Out: 1000 Total Billed Treatment Time: 60 Total Billed Treatment 1 visit EX 20' FA 40' co-treated for 60' TARA MCCOY PT Feb 24, 2021 09:59
--- NOTE | 2021-02-24 10:01 | Occupational Ther Daily Note ---
OT Current Status-Daily Note Subjective Pt denies pain, agreeable to treatment. Appearance Pt left sitting in w/c, all needs within reach. ADL-Treatment Therapy Code Descriptions/Definitions Functional [place] Measure: 0=Not Assessed/NA 4=Minimal Assistance 1=Total Assistance 5=Supervision or Setup 2=Maximal Assistance 6=Modified [place] 3=Moderate Assistance 7=Complete IndependenceSCALE: Activities may be completed with or without assistive devices. 2-Kijneezvoe-ytlryeu completes the activity by him/herself with no assistance from a helper. 5-Set-up or Clean-up Assistance-helper sets up or cleans up; patient completes activity. [place] assists only prior to or following the activity. 4-Supervision or Touching Assistance-helper provides verbal cues and/or touching/steadying and/or contact guard assistance as patient completes acti vity. Assistance may be provided throughout the activity or intermittently. 3-Partial/Moderate Assistance-helper does LESS THAN HALF the effort. [place] lifts, holds or supports trunk or limbs, but provides less than half the effort. 2-Substantial/Maximal Assistance-helper does MORE THAN HALF the effort. [place] lifts or holds trunk or limbs and provides more than half the effort. 8-Axcrxzith-bypeln does ALL the effort. Patient does none of the effort to complete the activity. Or, the assistance of 2 or more helpers is required for the patient to complete the activity. If activity was not attempted, code reason: 7-Patient Refused. 9-Not Applicable-not attempted and the patient did not perform the activity before the current illness, exacerbation or injury. 10-Not Attempted due to Environmental Limitations-(lack of equipment, weather restraints, etc.). 88-Not Attempted due to Medical Conditions or Safety Concerns. On/Off Footwear: 3 Toileting Hygiene (QC): 1 Other Treatment Co-treat with 2 skilled clinicians d/t pt poor mobility, endurance, weakness, safety, and increased fall risk. Pt incontinent of urine at therapy arrival. Able to roll L with SBA, dep for guillermo care. Transfer to w/c with use of ck. While in w/c pt donned socks with use of sock aid. Able to recall correct sequencing steps with extra time for problem solving. Assist needed to lift RLE off floor as pt threaded foot. He propelled w/c to therapy gym with SBA, extra time to maneuver around obstacles/doorways. While in gym, pt participated in seated table top activity with focus on promoting increased sitting balance, core strength, FM coordination, Hand/UE strength, and overall endurance. Pt able to tolerate unsupported sitting for ~5-6 min before needing to rest. Good initiation to self adjust posture throughout activity. As fatigue worsens, pt unable to lift LUE and requires min a under elbow. Improved dexterity skills observed on L this date. At times, pt will compensate by twisting nuts or bolts with R hand and requires cues to utilize L during session. Intermittent cues for placement/positioning of digits for improved ease of task. Pt too fatigued to propel self back to room. Education OT Patient Education: Correct positioning, Energy conservation, Modified ADL techniques, Progress toward Goal/Update tx plan, Purpose of tx/functional activities, Reviewed precautions, Rehab process, Safety issues, Transfer techniques, W/C management Teaching Recipient: Patient Teaching Methods: Demonstration, Discussion Response to Teaching: Verbalize Understanding, Return Demonstration OT Short Term Goals Short Term Goals Time Frame: Feb 24, 2021 Eatin Oral hygiene: 4 Toileting hygiene: 2 Shower/bathe self: 2 Upper body dressin Lower body dressin Putting on/taking off footwear: 3 OT Retirement Goals Retirement Goals Time Frame: Mar 04, 2021 Eating (QC): 6 Oral Hygiene (QC): 5 Toileting Hygiene (QC): 4 Shower/Bathe Self (QC): 3 Upper Body Dressing (QC): 4 Lower Body Dressing (QC): 3 On/Off Footwear (QC): 4 1=Demonstrate adherence to instructed precautions during ADL tasks. 2=Patient will verbalize/demonstrate understanding of assistive devices/modifications for ADL. 3=Patient will improve strength/tolerance for activity to enable patient to p erform ADL's. OT Education/Plan Problem List/Assessment Assessment: Decreased Activ Tolerance, Decreased Safety Aware, Decreased UE Strength, Dependent Transfers, Impaired Bed Mobility, Impaired Cognition, Impa ired Coordination, Impaired Funct Balance, Impaired I ADL's, Impaired Self-Care Skills, Restricted Funct UE ROM Discharge Recommendations Plan/Recommendations: Continue POC Treatment Plan/Plan of Care Treatment,Training & Education: Yes Patient would benefit from OT for education, treatment and training to promote independence in ADL's, mobility, safety and/or upper extremity function for ADL's. Plan of Care: ADL Retraining, Functional Mobility, Group Exercise/Act as Ind, UE Funct Exercise/Act, W/C Management Training Treatment Duration: Mar 04, 2021 Frequency: At least 5 of 7 days/Wk (IRF) Estimated Hrs Per Day: 1.5 hours per day Agreement: Yes Rehab Potential: Poor Time/GCodes Start Time: 09:00 Stop Time: 10:00 Total Time Billed (hr/min): 60 Billed Treatment Time 1 visit ADL x2 FA x2 co-treat with PT for 60 min Antonieta Angel OT Feb 24, 2021 10:01
--- NOTE | 2021-02-24 11:41 | PM&R Progress Note ---
Subjective HPI/CC On Admission Date Seen by Provider: Feb 24, 2021 Time Seen by Provider: 11:00 Subjective/Events-last exam 02/24/2021: [facility] had reached out and reviewed the case and it appeared that he was in the midst of being accepted. Patient very excited about the chance to go to [facility] Denies any issues Still a Coleen lift 02/23/2021: Patient doing well Required in and out caths yesterday due to 490 retention Detrol has been started by urology [facility] still in process Bed mobility improved 02/22/2021: Patient doing well Urology started Detrol for incontinence [facility] pending Bowels are moving well Still requiring Coleen lift 02/21/2021: Patient reports no significant concerns Bladder scanning per urology rec No word from [facility] Incontinent of bowel today Labs look good 02/20/2021: Patient has no new complaints today Denies any new issues No pain is reported Incontinence is an issue Fecal incontinence also an issue 02/19/2021: Patient had an uneventful night Denies any new issues Working on bladder retraining Check meds and labs 02/18/2021: Patient doing well Has no complaints Cystoscopy to be done today by urology No pain is reported Bowel evacuation ordered 02/17/2021: Patient doing really well Bowels moved yesterday All records sent to [facility] Has no rectal tone May need a suppository to evacuate bowels and treated like a paraplegic Bottom wound appears to be very superficial on a cushion 02/16/2021: Pt doing well No issues Bowels moved yesterday and fecal incontinence Frausto cath in Cystoscopy by Dr. Welsh on Sunday02/15/2021: Pt doing a little better Frausto required and Dr. Welsh consulted Spot checks of oxygen without CPAP during the night are okay Still a Coleen-lift 02/14/2021: Pt doing well Condom catheter will be attempted Platelet count 108 Wound looks good BP and blood sugar good No pain Bowels are moving 02/13/2021: Patient doing well Has no needs Bowels are moving well No issues Sugars are reviewed 02/12/2021: Patient doing well Incontinent of bowel and bladder a lot Able to move himself and turn himself in bed Check meds and labs Cognitive deficit could preclude independent living 02/11/2021: Patient doing pretty well Dr. Rubio will be consulted Noncompliant with CPAP machine Oxygen was good last night at 90% Wound care consulted Dr. Pyle Sugars good Bowels are a bit loose and he does have fecal incontinence Review of Systems General: Fatigue, Malaise Neurological: Weakness, Incoordination Objective Exam Vital Signs Vital Signs Date Time Temp Pulse Resp B/P (MAP) Pulse Ox O2 Delivery O2 Flow Rate FiO2 02/24/21 21:55 96 Room Air 02/24/21 20:00 35.8 65 18 110/58 (75) Capillary Refill : General Appearance: No Apparent Distress, WD/WN, Chronically ill HEENT: PERRL/EOMI, Normal ENT Inspection, Pharynx Normal Neck: Full Range of Motion, Normal Inspection, Non Tender, Supple, Carotid Bruit Respiratory: Chest Non Tender, Lungs Clear, Normal Breath Sounds, No Accessory Muscle Use, No Respiratory Distress Cardiovascular: Regular Rate, Rhythm, No Edema, No Gallop, No JVD, No Murmur, Normal Peripheral Pulses Gastrointestinal: Normal Bowel Sounds, No Organomegaly, No Pulsatile Mass, Non Tender, Soft Back: Normal Inspection, No CVA Tenderness, No Vertebral Tenderness Extremity: Normal Capillary Refill, Normal Inspection, Normal Range of Motion, Non Tender, No Calf Tenderness, No Pedal Edema Neurologic/Psychiatric: Alert, Oriented x3, Normal Mood/Affect, design drafter II-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 FIM Transfers Therapy Code Descriptions/Definitions Functional [place] Measure: 0=Not Assessed/NA 4=Minimal Assistance 1=Total Assistance 5=Supervision or Setup 2=Maximal Assistance 6=Modified [place] 3=Moderate Assistance 7=Complete IndependenceSCALE: Activities may be completed with or without assistive devices. 4-Qzttltxzyf-ocqyqyx completes the activity by him/herself with no assistance from a helper. 5-Set-up or Clean-up Assistance-helper sets up or cleans up; patient completes activity. [place] assists only prior to or following the activity. 4-Supervision or Touching Assistance-helper provides verbal cues and/or touching/steadying and/or contact guard assistance as patient completes activity. Assistance may be provided throughout the activity or intermittently. 3-Partial/Moderate Assistance-helper does LESS THAN HALF the effort. [place] lifts, holds or supports trunk or limbs, but provides less than half the effort. 2-Substantial/Maximal Assistance-helper does MORE THAN HALF the effort. [place] lifts or holds trunk or limbs and provides more than half the effort. 3-Fwuuvmcsb-jlywki does ALL the effort. Patient does none of the effort to complete the activity. Or, the assistance of 2 or more helpers is required for the patient to complete the activity. If activity was not attempted, code reason: 7-Patient Refused. 9-Not Applicable-not attempted and the patient did not perform the activity bef ore the current illness, exacerbation or injury. 10-Not Attempted due to Environmental Limitations-(lack of equipment, weather r estraints, etc.). 88-Not Attempted due to Medical Conditions or Safety Concerns. Roll Left to Right (QC): 3 Sit to Lying (QC): 3 Sit to Stand (QC): 1 Chair/Yyx-fk-Bsqvw Xfer(QC): 1 Car Transfer (QC): 88 Gait Training Does the Patient Walk?: No and Walking Goal NOT indicated Walk 10 feet (QC): 88 Walk 50 ft with 2 Turns(QC): 88 Walk 150 ft (QC): 88 Walking 10ft/uneven surface-QC: 88 Wheelchair Training Does the Pt Use a Wheelchair?: Yes Distance: 100'x2 Wheel 50 ft with 2 turns (QC): 4 Wheel 150 ft (QC): 3 Type of Wheelchair: Manual Stair Training 1 Step (curb) (QC): 88 4 Steps (QC): 88 12 Steps (QC): 88 Balance Picking up an Object (QC): 88 ADL-Treatment Eating (QC): 4 Oral Hygiene (QC): 5 Bathing Location: L Arm, R Arm, L Upper Leg, R Upper Leg, L Lower Leg (including foot), R Lower Leg (including foot), Chest, Abdomen, Buttocks, Perineal Area Shower/Bathe Self (QC): 3 Upper Body Dressing (QC): 1 Lower Body Dressing (QC): 1 On/Off Footwear (QC): 3 Toileting Hygiene (QC): 1 Toilet Transfer (QC): 1 Assessment/Plan Assessment and Plan Assess & Plan/Chief Complaint Assessment: 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 and subsequent neurological deficits Lumbar L4-L5 subarticular recess narrowing B/L Left-sided weakness Hepatic Hemangioma Systolic Heart Failure LFT elevation LBBB Previous hypotension Obesity CAD Dementia/cognitive impairment GERD PUD PVD Diabetic polyneuropathy Progressive weakness High risk of falling Gait disturbance Spasticity T2DM Constipation Edema HTN Paroxysmal A-fib Thrombocytopenia Urinary Retention Status post UTI (resolved) BAM on CPAP Cystoscopy on 02/18/2021 Plan: Aggressive PT, OT, and speech therapy Order basic lab work in the morning Review records, talk to his family members as they are more in tune with his medical condition then the patient himself Neurology follow up Consult Dr. Rubio for A. fib 02/11/2021: Supportive care Dr. Rubio consult Poor memory recall noted 02/12/2021: Incontinence care Aggressive therapy 02/13/2021: Incontinence care Aggressive therapy 02/14/2021: Attempt condom catheter due to incontinence Monitor for retention Dr. Welsh consult 02/15/2021: Appreciate urology management Aggressive therapy Send records to [facility] 02/16/2021: Supportive care Send records to [facility] from [facility] Continue aggressive treatment Cystoscopy tomorrow 02/17/2021: Cystoscopy tomorrow Bowel evacuation 02/18/2021: Cystoscopy Appreciate urology 02/19/2021: Supportive care Urology appreciated 02/20/2021: Supportive care Incontinence care 02/21/2021: Supportive care Incontinence care Appreciate urology 02/22/2021: Detrol for incontinence Appreciate urology Continue aggressive treatment 02/23/2021 Patient will need nursing care at discharge Appreciate urology 02/24/2021: [facility] transfer? Continue aggressive therapy (1) Cervical spinal cord compression (2) Atrial fibrillation (3) Anticoagulation adequate with anticoagulant therapy (4) Urinary retention CARMELLA ESTRADA DO Feb 24, 2021 11:41
[2021-02-24] MEDS ORDERED: TOLTA4 PO (11:58)
[2021-02-24] MEDS ORDERED: INSU100V5 SQ (11:58)
[2021-02-24] MEDS ORDERED: LISI10TA25 PO (11:58)
[2021-02-24] MEDS ORDERED: TMSL.4C PO (11:58)
[2021-02-24] MEDS ORDERED: MENT71OI TOP (11:58)
[2021-02-24] MEDS ORDERED: INSU100V16 SC (11:58)
[2021-02-24] MEDS ORDERED: BTH10T PO (11:58)
--- NOTE | 2021-02-24 15:06 | Therapy Group Daily Note ---
Therapy Daily Group Note Patient Education Topic Other List Below (Nutrition & Exercises) Exercises LE Seated Exercise, UE Exercise Session Ratio (pt:therapist): 4:1 Goal of Session: Education on ARU Expectations, UE/LE Strengthing Goal Met for this Session: Yes Pt Benefit of Group: Contributions to Others, F/U Use of Strategies @Home, Increased Functional Safety, Increased Functional Strength, Improved Cognition, Recognition of Peers, Socialization Other/Notes Pt is propelled to [facility] for OT/PT group in [facility]. Group consisted of introductions (name, place living, favorite fall therapy), socialization, seated UE/LE exercises, and educational topics involving nutrition, exercise. Pt introduced self appropriately, actively listened to peers and complete B UE/LE seated exercises. Pt acknowledged understanding by verbalizing understanding and giving personal stories. Pt participated in a multiple choice question/answer session about educational topics. After session, pt is Coleen lifted back to bed and positioned to comfort. Call light/phone in reach. All needs met in room. Start Time: 13:00 Stop Time: 14:00 Total Billed Treatment Time: 60 Total Billed Treatment 1, GRP HENRIETTA VALENZUELA TRIMMING MACHINE SET UP OPERATOR Feb 24, 2021 15:06
--- NOTE | 2021-02-24 17:18 | Progress Note - Urology ---
Progress Note-Urology Progress Notes/Assess & Plan Progress/Assessment & Plan VOIDING WELL. EMPTIES WELL. STILL INCONTINENCE BUT BETTER. TOLERATES MEDS WELL Final Diagnosis RETENTION AND INCONTINENCE YUAN NICHOLSON MD Feb 24, 2021 17:18
[2021-02-24] MEDS: TAMSULOSIN 0.4 MG (FLOMAX) CAP PO SCH (17:50)
[2021-02-24] MEDS: DIGOXIN 0.125 MG (LANOXIN) TAB PO SCH (17:50)
[2021-02-24 20:00] VITALS: BP 110/58
[2021-02-24] MEDS: TOLTERODINE LA 4 MG (DETROL) CAP PO SCH (22:16)
[2021-02-24] MEDS: MELATONIN 3 MG TABLET PO PRN (22:16)
[2021-02-24] MEDS: SIMvastatin 40 MG (ZOCOR) TAB PO SCH (22:16)
[2021-02-25] MEDS: inSUlin ASPART (NovoLOG) 1 UNIT/0.01 ML (CHARGE PER UNIT) SC SCH ×4 (06:00→21:16)
[2021-02-25] MEDS: BETHANECHOL 10 MG (URECHOLINE) TAB PO SCH ×4 (06:16→21:35)
[2021-02-25] MEDS: LEVOTHYROXINE 100 MCG (LEVOTHROID) TAB PO SCH (06:16)
[2021-02-25] MEDS: KCL 10 MEQ TAB (MICRO K) PO SCH (06:16)
[2021-02-25] MEDS: MULTIVIT W/MINERALS TAB (THERAGRAN M) PO SCH (06:16)
[2021-02-25 08:00] VITALS: BP 115/62
[2021-02-25] MEDS: DOCUSATE SODIUM 100 MG (COLACE) CAP PO SCH ×2 (08:09→21:35)
[2021-02-25] MEDS: APIXABAN 5 MG (ELIQUIS) TABLET PO SCH ×2 (08:10→21:35)
[2021-02-25] MEDS: FUROSEMIDE 20 MG (LASIX) TAB PO SCH (08:11)
[2021-02-25] MEDS: LOSARTAN 50 MG (COZAAR) TAB PO SCH (08:11)
[2021-02-25] MEDS: meTOprolol SUCCINATE 100 MG (TOPROL XL) TAB PO SCH (08:11)
[2021-02-25] MEDS: lisINopril 10 MG (PRINIVIL) TABLET PO SCH (08:11)
[2021-02-25] MEDS: FERROUS SULF 325 MG (IRON) TAB PO SCH (08:11)
[2021-02-25] MEDS: OMEGA 3 (FISH OIL) 1000 MG CAP PO SCH ×2 (08:11→21:35)
[2021-02-25] MEDS: MAGNESIUM OXIDE (MAG-OX)400 MG TAB PO SCH (08:11)
[2021-02-25] MEDS: FAMOTIDINE 20 MG (PEPCID) TABLET PO SCH (08:11)
[2021-02-25] MEDS: CALCIUM CARB + VIT D 600 MG (CALCARB + D) TAB PO SCH (08:11)
[2021-02-25] MEDS: SENNA W/DOCUSATE (SENOKOT S) TABLET PO SCH ×2 (08:12→21:35)
[2021-02-25] MEDS: polyethylene glycoL POWDER 17 GM (MIRALAX) PACK PO SCH ×2 (08:12→20:05)
--- NOTE | 2021-02-25 10:59 | Physical Therapy Daily Note ---
PT Daily Note-Current Subjective Patient in bed pre tx, agrees to PT, has no complaints of pain. Will be co- treating with OT due to poor patient mobility, strength, endurance, poor trunk strength and balance, coordinate UE and LE during activity, safety and reduce risk of falls. Patient's son is here to observe tx to get an idea of the level of care he will need. Appearance Patient in WC post tx to continue with OT for a bit. Mental Status Patient Orientation: Person, Place, Situation Transfers SCALE: Activities may be completed with or without assistive devices. 7-Ktrmmvhgap-dvloizl completes the activity by him/herself with no assistance from a helper. 5-Set-up or Clean-up Assistance-helper sets up or cleans up; patient completes activity. [place] assists only prior to or following the activity. 4-Supervision or Touching Assistance-helper provides verbal cues and/or touching/steadying and/or contact guard assistance as patient completes activity. Assistance may be provided throughout the activity or intermittently. 3-Partial/Moderate Assistance-helper does LESS THAN HALF the effort. [place] lifts, holds or supports trunk or limbs, but provides less than half the effort. 2-Substantial/Maximal Assistance-helper does MORE THAN HALF the effort. [place] lifts or holds trunk or limbs and provides more than half the effort. 3-Sqkzonghd-bolmow does ALL the effort. Patient does none of the effort to complete the activity. Or, the assistance of 2 or more helpers is required for the patient to complete the activity. If activity was not attempted, code reason: 7-Patient Refused. 9-Not Applicable-not attempted and the patient did not perform the activity before the current illness, exacerbation or injury. 10-Not Attempted due to Environmental Limitations-(lack of equipment, weather restraints, etc.). 88-Not Attempted due to Medical Conditions or Safety Concerns. Roll Left & Right (QC): 3 Sit to Lying (QC): 1 Lying to Sitting/Side of Bed(Q: 1 Chair/Dlx-se-Focrl Xfer(QC): 1 Patient sits on the side of the bed with assist of 2, performs seated trunk str engthening and limits of stability training (forward, back, side to side) x10 each way, and performs shoulder flexion arms together x10. Patient is they layed down and rolls from side to side (min assist to roll to the right side, SBA to roll to the left side) and the ck sling is placed and he is transferred to the Wheelchair Training Does the Pt Use a Wheelchair?: Yes Wheel 50 ft with 2 turns (QC): 4 Type of Wheelchair: Manual 100' Exercises pre-standing activity leaning forward in WC and trying to bear weight through legs x10, 3 sets. Patient also performs UE activity without trunk support to work on trunk strength and endurance Treatments PT worked on rolling, transfers, sitting balance, LE strengthening, OT worked on sitting activities, UE positioning and safety during activity, bed mobility Assessment Current Status: Excellent Progress no change in mobility PT Short Term Goals Short Term Goals Time Frame: Feb 17, 2021 Roll Left & Right: 3 Sit to lyin Lying to sitting on side of be: 3 Wheel 50ft w/2 turns: 4 Wheel 150 feet: 4 PT Nursing Home Goals Nursing Home Goals PT Nursing Home Goals Time Frame: Mar 03, 2021 Roll Left & Right (QC): 4 Sit to Lying (QC): 4 Lying-Sitting on Side/Bed(QC): 4 Sit to Stand (QC): 88 Chair/Grx-hf-Xtqof Xfer(QC): 88 Toilet Transfer (QC): 88 Car Transfer (QC): 88 Does the Patient Walk: No and Walking Goal NOT indicated Walk 10 feet (QC): 88 Walk 50ft with 2 Turns (QC): 88 Walk 150 ft (QC): 88 Walking 10ft on Uneven Surface: 88 1 Step (curb) (QC): 88 4 Steps (QC): 88 12 Steps (QC): 88 Picking up an Object (QC): 88 Wheel 50 feet with 2 turns (QC: 6 Wheel 150 feet: 6 PT Plan Problem List Problem List: Activity Tolerance, Functional Strength, Safety, Balance, Gait, Transfer, Bed Mobility, ROM Treatment/Plan Treatment Plan: Continue Plan of Care Treatment Plan: Bed Mobility, Education, Functional Activity Jorge, Functional Strength, Group Therapy, Gait, Safety, Therapeutic Exercise, Transfers Treatment Duration: Mar 03, 2021 Frequency: At least 5 of 7 days/Wk (IRF) Estimated Hrs Per Day: 1.5 hours per day Patient and/or Family Agrees t: Yes Safety Risks/Education Patient Education: Transfer Techniques, Correct Positioning, W/C Management, Safety Issues Teaching Recipient: Patient Teaching Methods: Demonstration, Discussion Response to Teaching: Reinforcement Needed Time/GCodes Time In: 1000 Time Out: 1100 Total Billed Treatment Time: 60 Total Billed Treatment 1 visit EX 30' FA 30' co-treated with OT for 60' TARA MCCOY PT Feb 25, 2021 10:59
--- NOTE | 2021-02-25 11:28 | PM&R Progress Note ---
Subjective HPI/CC On Admission Date Seen by Provider: Feb 25, 2021 Time Seen by Provider: 11:00 Subjective/Events-last exam 02/25/2021: Miscommunication with [place] in it does not appear that it will be a hospital hospital transfer Remains a Coleen lift Son here for family education Denies any new issues 02/24/2021: [facility] had reached out and reviewed the case and it appeared that he was in the midst of being accepted. Patient very excited about the chance to go to [facility] Denies any issues Still a Coleen lift 02/23/2021: Patient doing well Required in and out caths yesterday due to 490 retention Detrol has been started by urology [facility] still in process Bed mobility improved 02/22/2021: Patient doing well Urology started Detrol for incontinence [facility] pending Bowels are moving well Still requiring Coleen lift 02/21/2021: Patient reports no significant concerns Bladder scanning per urology rec No word from [facility] Incontinent of bowel today Labs look good 02/20/2021: Patient has no new complaints today Denies any new issues No pain is reported Incontinence is an issue Fecal incontinence also an issue 02/19/2021: Patient had an uneventful night Denies any new issues Working on bladder retraining Check meds and labs 02/18/2021: Patient doing well Has no complaints Cystoscopy to be done today by urology No pain is reported Bowel evacuation ordered 02/17/2021: Patient doing really well Bowels moved yesterday All records sent to [facility] Has no rectal tone May need a suppository to evacuate bowels and treated like a paraplegic Bottom wound appears to be very superficial on a cushion 02/16/2021: Pt doing well No issues Bowels moved yesterday and fecal incontinence Frausto cath in Cystoscopy by Dr. Welsh on Sunday02/15/2021: Pt doing a little better Frausto required and Dr. Welsh consulted Spot checks of oxygen without CPAP during the night are okay Still a Coleen-lift 02/14/2021: Pt doing well Condom catheter will be attempted Platelet count 108 Wound looks good BP and blood sugar good No pain Bowels are moving 02/13/2021: Patient doing well Has no needs Bowels are moving well No issues Sugars are reviewed 02/12/2021: Patient doing well Incontinent of bowel and bladder a lot Able to move himself and turn himself in bed Check meds and labs Cognitive deficit could preclude independent living 02/11/2021: Patient doing pretty well Dr. Rubio will be consulted Noncompliant with CPAP machine Oxygen was good last night at 90% Wound care consulted Dr. Pyle Sugars good Bowels are a bit loose and he does have fecal incontinence Review of Systems General: Fatigue Neurological: Weakness, Incoordination Objective Exam Vital Signs Vital Signs Date Time Temp Pulse Resp B/P (MAP) Pulse Ox O2 Delivery O2 Flow Rate FiO2 02/25/21 21:00 96 Room Air 02/25/21 20:00 36.4 80 20 107/60 (76) Capillary Refill : General Appearance: No Apparent Distress, WD/WN, Chronically ill HEENT: PERRL/EOMI, Normal ENT Inspection, Pharynx Normal Neck: Full Range of Motion, Normal Inspection, Non Tender, Supple, Carotid Bruit Respiratory: Chest Non Tender, Lungs Clear, Normal Breath Sounds, No Accessory Muscle Use, No Respiratory Distress Cardiovascular: Regular Rate, Rhythm, No Edema, No Gallop, No JVD, No Murmur, Normal Peripheral Pulses Gastrointestinal: Normal Bowel Sounds, No Organomegaly, No Pulsatile Mass, Non Tender, Soft Back: Normal Inspection, No CVA Tenderness, No Vertebral Tenderness Extremity: Normal Capillary Refill, Normal Inspection, Normal Range of Motion, Non Tender, No Calf Tenderness, No Pedal Edema Neurologic/Psychiatric: Alert, Oriented x3, Normal Mood/Affect, underground roof bolter II-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 FIM Transfers Therapy Code Descriptions/Definitions Functional [place] Measure: 0=Not Assessed/NA 4=Minimal Assistance 1=Total Assistance 5=Supervision or Setup 2=Maximal Assistance 6=Modified [place] 3=Moderate Assistance 7=Complete IndependenceSCALE: Activities may be completed with or without assistive devices. 8-Vkzvccfroh-ivxvfby completes the activity by him/herself with no assistance from a helper. 5-Set-up or Clean-up Assistance-helper sets up or cleans up; patient completes activity. [place] assists only prior to or following the activity. 4-Supervision or Touching Assistance-helper provides verbal cues and/or touching/steadying and/or contact guard assistance as patient completes activity. Assistance may be provided throughout the activity or intermittently. 3-Partial/Moderate Assistance-helper does LESS THAN HALF the effort. [place] lifts, holds or supports trunk or limbs, but provides less than half the effort. 2-Substantial/Maximal Assistance-helper does MORE THAN HALF the effort. [place] lifts or holds trunk or limbs and provides more than half the effort. 8-Trqcojleh-pcllvn does ALL the effort. Patient does none of the effort to complete the activity. Or, the assistance of 2 or more helpers is required for the patient to complete the activity. If activity was not attempted, code reason: 7-Patient Refused. 9-Not Applicable-not attempted and the patient did not perform the activity before the current illness, exacerbation or injury. 10-Not Attempted due to Environmental Limitations-(lack of equipment, weather restraints, etc.). 88-Not Attempted due to Medical Conditions or Safety Concerns. Roll Left to Right (QC): 3 Sit to Lying (QC): 1 Sit to Stand (QC): 1 Chair/Hag-uc-Ziemj Xfer(QC): 1 Car Transfer (QC): 88 Gait Training Does the Patient Walk?: No and Walking Goal NOT indicated Walk 10 feet (QC): 88 Walk 50 ft with 2 Turns(QC): 88 Walk 150 ft (QC): 88 Walking 10ft/uneven surface-QC: 88 Wheelchair Training Does the Pt Use a Wheelchair?: Yes Distance: 100'x2 Wheel 50 ft with 2 turns (QC): 4 Wheel 150 ft (QC): 3 Type of Wheelchair: Manual Stair Training 1 Step (curb) (QC): 88 4 Steps (QC): 88 12 Steps (QC): 88 Balance Picking up an Object (QC): 88 ADL-Treatment Eating (QC): 4 Oral Hygiene (QC): 5 Bathing Location: L Arm, R Arm, L Upper Leg, R Upper Leg, L Lower Leg (including foot), R Lower Leg (including foot), Chest, Abdomen, Buttocks, Perineal Area Shower/Bathe Self (QC): 3 Upper Body Dressing (QC): 1 Lower Body Dressing (QC): 1 On/Off Footwear (QC): 3 Toileting Hygiene (QC): 1 Toilet Transfer (QC): 1 Assessment/Plan Assessment and Plan Assess & Plan/Chief Complaint Assessment: 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 and subsequent neurological deficits Lumbar L4-L5 subarticular recess narrowing B/L Left-sided weakness Hepatic Hemangioma Systolic Heart Failure LFT elevation LBBB Previous hypotension Obesity CAD Dementia/cognitive impairment GERD PUD PVD Diabetic polyneuropathy Progressive weakness High risk of falling Gait disturbance Spasticity T2DM Constipation Edema HTN Paroxysmal A-fib Thrombocytopenia Urinary Retention Status post UTI (resolved) BAM on CPAP Cystoscopy on 02/18/2021 Plan: Aggressive PT, OT, and speech therapy Order basic lab work in the morning Review records, talk to his family members as they are more in tune with his medical condition then the patient himself Neurology follow up Consult Dr. Rubio for A. fib 02/11/2021: Supportive care Dr. Rubio consult Poor memory recall noted 02/12/2021: Incontinence care Aggressive therapy 02/13/2021: Incontinence care Aggressive therapy 02/14/2021: Attempt condom catheter due to incontinence Monitor for retention Dr. Welsh consult 02/15/2021: Appreciate urology management Aggressive therapy Send records to [facility] 02/16/2021: Supportive care Send records to [facility] from [facility] Continue aggressive treatment Cystoscopy tomorrow 02/17/2021: Cystoscopy tomorrow Bowel evacuation 02/18/2021: Cystoscopy Appreciate urology 02/19/2021: Supportive care Urology appreciated 02/20/2021: Supportive care Incontinence care 02/21/2021: Supportive care Incontinence care Appreciate urology 02/22/2021: Detrol for incontinence Appreciate urology Continue aggressive treatment 02/23/2021 Patient will need nursing care at discharge Appreciate urology 02/24/2021: [facility] transfer? Continue aggressive therapy 02/25/2021: [facility] admission [facility] still pending (1) Cervical spinal cord compression (2) Atrial fibrillation (3) Anticoagulation adequate with anticoagulant therapy (4) Urinary retention CARMELLA ESTRADA DO Feb 25, 2021 11:28
--- NOTE | 2021-02-25 13:11 | Occupational Ther Daily Note ---
OT Current Status-Daily Note Subjective Patient in bed pre tx, agrees to OT, has no complaints of pain. Will be co- treating with PT due to poor patient mobility, strength, endurance, poor trunk strength and balance, coordinate UE and LE during activity, safety and reduce risk of falls. Patient's son is here to observe tx to get an idea of the level of care he will need. Appearance Pt left sitting in w/c, all needs within reach at end of session. Son in room. ADL-Treatment Therapy Code Descriptions/Definitions Functional [place] Measure: 0=Not Assessed/NA 4=Minimal Assistance 1=Total Assistance 5=Supervision or Setup 2=Maximal Assistance 6=Modified [place] 3=Moderate Assistance 7=Complete IndependenceSCALE: Activities may be completed with or without assistive devices. 2-Ldllminoml-vthtksd completes the activity by him/herself with no assistance from a helper. 5-Set-up or Clean-up Assistance-helper sets up or cleans up; patient completes activity. [place] assists only prior to or following the activity. 4-Supervision or Touching Assistance-helper provides verbal cues and/or touchi ng/steadying and/or contact guard assistance as patient completes activity. Assistance may be provided throughout the activity or intermittently. 3-Partial/Moderate Assistance-helper does LESS THAN HALF the effort. [place] lifts, holds or supports trunk or limbs, but provides less than half the effort. 2-Substantial/Maximal Assistance-helper does MORE THAN HALF the effort. [place] lifts or holds trunk or limbs and provides more than half the effort. 7-Deacrzvlt-zclzda does ALL the effort. Patient does none of the effort to complete the activity. Or, the assistance of 2 or more helpers is required for the patient to complete the activity. If activity was not attempted, code reason: 7-Patient Refused. 9-Not Applicable-not attempted and the patient did not perform the activity before the current illness, exacerbation or injury. 10-Not Attempted due to Environmental Limitations-(lack of equipment, weather restraints, etc.). 88-Not Attempted due to Medical Conditions or Safety Concerns. Oral Hygiene (QC): 5 On/Off Footwear: 3 Other Treatment Son present for treatment. Asks appropriate questions.Assist x2 to sit EOB. Core strengthening exercises performed at EOB. Mild LOB when performing lateral trunk leans, R worse than Left. Requires intermittent min a to correct. 10x1 forward, backward and side to side. Transfer to w/c with use of ck. While in w/c pt donned socks with use of sock aid. Able to recall correct sequencing steps with extra time for problem solving. Assist needed to lift RLE off floor as pt threaded foot. He propelled w/c to therapy gym with SBA, extra time to maneuver around obstacles/doorways. While in gym, pt participated in seated table top activity with focus on promoting increased sitting balance, core strength, FM coordination, Hand/UE strength, and overall endurance. Pt demonstrates slight de crease in coordination with L hand when compared to previous date. When fatigue worsens, pt often attempting to rest elbows on table. Pt able to correct posture with verbal cues. Min a needed at times to Lift LUE due to weakness. Several rest breaks needed this date. Intermittent cues for tip pinch around nuts/bolts and to slide object to end of table for better pinch. Once in room, pt performed grooming tasks with set up and extra time. Education OT Patient Education: Correct positioning, Disease process, Energy conservation, Modified ADL techniques, Progress toward Goal/Update tx plan, Purpose of tx/functional activities, Reviewed precautions, Rehab process, Safety issues, Transfer techniques, Use of adapted equipment, W/C management Teaching Recipient: Patient, Family Teaching Methods: Demonstration, Discussion Response to Teaching: Verbalize Understanding, Return Demonstration, Reinforcement Needed OT Short Term Goals Short Term Goals Time Frame: Feb 24, 2021 Eatin Oral hygiene: 4 Toileting hygiene: 2 Shower/bathe self: 2 Upper body dressin Lower body dressin Putting on/taking off footwear: 3 OT Cardiac Sonographer Goals Nursing Home Goals Time Frame: Mar 04, 2021 Eating (QC): 6 Oral Hygiene (QC): 5 Toileting Hygiene (QC): 4 Shower/Bathe Self (QC): 3 Upper Body Dressing (QC): 4 Lower Body Dressing (QC): 3 On/Off Footwear (QC): 4 1=Demonstrate adherence to instructed precautions during ADL tasks. 2=Patient will verbalize/demonstrate understanding of assistive devices/modifications for ADL. 3=Patient will improve strength/tolerance for activity to enable patient to perform ADL's. OT Education/Plan Problem List/Assessment Assessment: Decreased Activ Tolerance, Decreased Safety Aware, Decreased UE Strength, Dependent Transfers, Impaired Bed Mobility, Impaired Cognition, Impaired Coordination, Impaired Funct Balance, Impaired I ADL's, Impaired Self- Care Skills, Restricted Funct UE ROM Discharge Recommendations Plan/Recommendations: Continue POC Treatment Plan/Plan of Care Treatment,Training & Education: Yes Patient would benefit from OT for education, treatment and training to promote independence in ADL's, mobility, safety and/or upper extremity function for ADL's. Plan of Care: ADL Retraining, Functional Mobility, Group Exercise/Act as Ind, UE Funct Exercise/Act, W/C Management Training Treatment Duration: Mar 04, 2021 Frequency: At least 5 of 7 days/Wk (IRF) Estimated Hrs Per Day: 1.5 hours per day Agreement: Yes Rehab Potential: Poor Time/GCodes Start Time: 10:00 Stop Time: 11:10 Total Time Billed (hr/min): 70 Billed Treatment Time 1 visit, ADL x2 (25 min) FA x2 (30min) EX (15 min) co-treat with PT for 60 min Antonieta Angel OT Feb 25, 2021 13:11
--- NOTE | 2021-02-25 14:14 | Occupational Ther Daily Note ---
OT Current Status-Daily Note Subjective Pt denies pain, agreeable to treatment. Appearance Pt left supine in bed, all needs within reach. ADL-Treatment Therapy Code Descriptions/Definitions Functional [place] Measure: 0=Not Assessed/NA 4=Minimal Assistance 1=Total Assistance 5=Supervision or Setup 2=Maximal Assistance 6=Modified [place] 3=Moderate Assistance 7=Complete IndependenceSCALE: Activities may be completed with or without assistive devices. 8-Nziaxaeidc-mupwyec completes the activity by him/herself with no assistance from a helper. 5-Set-up or Clean-up Assistance-helper sets up or cleans up; patient completes activity. [place] assists only prior to or following the activity. 4-Supervision or Touching Assistance-helper provides verbal cues and/or touching/steadying and/or contact guard assistance as patient completes activ ity. Assistance may be provided throughout the activity or intermittently. 3-Partial/Moderate Assistance-helper does LESS THAN HALF the effort. [place] lifts, holds or supports trunk or limbs, but provides less than half the effort. 2-Substantial/Maximal Assistance-helper does MORE THAN HALF the effort. [place] lifts or holds trunk or limbs and provides more than half the effort. 9-Jdiaswgpn-osaibb does ALL the effort. Patient does none of the effort to complete the activity. Or, the assistance of 2 or more helpers is required for the patient to complete the activity. If activity was not attempted, code reason: 7-Patient Refused. 9-Not Applicable-not attempted and the patient did not perform the activity before the current illness, exacerbation or injury. 10-Not Attempted due to Environmental Limitations-(lack of equipment, weather restraints, etc.). 88-Not Attempted due to Medical Conditions or Safety Concerns. Other Treatment Pt performed UE exercises with goal to promote increased strength, endurance, coordination, and ROM for adls and transfers. 2 sets each. All RUE exercises performed with 2# wrist weights, 10 reps each. LUE fist set performed without weight, 10 reps. 2nd set performed with 1# hand held weight until fatigue, ~ 4-5 reps (except bicep curl which pt was able to complete all 10 reps with 1# weight). Pt then finished remaining reps without resistance. Min cues for technique. Education OT Patient Education: Correct positioning, Exercise program, Progress toward Goal/Update tx plan, Purpose of tx/functional activities Teaching Recipient: Patient Teaching Methods: Demonstration, Discussion Response to Teaching: Verbalize Understanding, Return Demonstration OT Short Term Goals Short Term Goals Time Frame: Feb 24, 2021 Eatin Oral hygiene: 4 Toileting hygiene: 2 Shower/bathe self: 2 Upper body dressin Lower body dressin Putting on/taking off footwear: 3 OT Usp Goals Usp Goals Time Frame: Mar 04, 2021 Eating (QC): 6 Oral Hygiene (QC): 5 Toileting Hygiene (QC): 4 Shower/Bathe Self (QC): 3 Upper Body Dressing (QC): 4 Lower Body Dressing (QC): 3 On/Off Footwear (QC): 4 1=Demonstrate adherence to instructed precautions during ADL tasks. 2=Patient will verbalize/demonstrate understanding of assistive devices/modifi cations for ADL. 3=Patient will improve strength/tolerance for activity to enable patient to perform ADL's. OT Education/Plan Problem List/Assessment Assessment: Decreased Activ Tolerance, Decreased UE Strength, Dependent Transfers, Impaired Bed Mobility, Impaired Cognition, Impaired Coordination, Impaired Funct Balance, Impaired I ADL's, Impaired Self-Care Skills, Restricted Funct UE ROM Discharge Recommendations Plan/Recommendations: Continue POC Treatment Plan/Plan of Care Treatment,Training & Education: Yes Patient would benefit from OT for education, treatment and training to promote independence in ADL's, mobility, safety and/or upper extremity function for ADL's. Plan of Care: ADL Retraining, Functional Mobility, Group Exercise/Act as Ind, UE Funct Exercise/Act, W/C Management Training Treatment Duration: Mar 04, 2021 Frequency: At least 5 of 7 days/Wk (IRF) Estimated Hrs Per Day: 1.5 hours per day Agreement: Yes Rehab Potential: Poor Time/GCodes Start Time: 13:50 Stop Time: 12:10 Total Time Billed (hr/min): 20 Billed Treatment Time 1 visit, EX Antonieta Angel OT Feb 25, 2021 14:14
--- NOTE | 2021-02-25 14:44 | Physical Therapy Daily Note ---
PT Daily Note-Current Subjective Patient sitting in w/c upon PT arrival, agreeable to treatment. Patient reports 0/10 pain currently. States he would like to return to bed post treatment. Mental Status Patient Orientation: Person, Place, Time, Situation Transfers SCALE: Activities may be completed with or without assistive devices. 6-Ijkhcjsykr-tbrjcti completes the activity by him/herself with no assistance from a helper. 5-Set-up or Clean-up Assistance-helper sets up or cleans up; patient completes activity. [place] assists only prior to or following the activity. 4-Supervision or Touching Assistance-helper provides verbal cues and/or touching/steadying and/or contact guard assistance as patient completes activity. Assistance may be provided throughout the activity or intermittently. 3-Partial/Moderate Assistance-helper does LESS THAN HALF the effort. [place] lifts, holds or supports trunk or limbs, but provides less than half the effort. 2-Substantial/Maximal Assistance-helper does MORE THAN HALF the effort. [place] lifts or holds trunk or limbs and provides more than half the effort. 0-Mdopdxxyk-bkvmen does ALL the effort. Patient does none of the effort to complete the activity. Or, the assistance of 2 or more helpers is required for the patient to complete the activity. If activity was not attempted, code reason: 7-Patient Refused. 9-Not Applicable-not attempted and the patient did not perform the activity before the current illness, exacerbation or injury. 10-Not Attempted due to Environmental Limitations-(lack of equipment, weather restraints, etc.). 88-Not Attempted due to Medical Conditions or Safety Concerns. Roll Left & Right (QC): 3 Sit to Lying (QC): 2 Lying to Sitting/Side of Bed(Q: 2 Sit to Stand (QC): 1 Chair/Ghc-bq-Xvhwb Xfer(QC): 1 Gait Training Does the Patient Walk?: No and Walking Goal NOT indicated Wheelchair Training Does the Pt Use a Wheelchair?: Yes Exercises Seated Therapy Exercises: Ankle pumps, Sit to stand, Long arc quads, Hip flexion, Hamstring Curls, Hip abd/add Seated Reps: 20 Treatments Visit, ex, FA Assessment Current Status: Fair Progress Patient tolerated treatment fair. He performs LE therapeutic exercise as listed above. Attempted sit to stand, patient unable to stand fully erect with FWW and total A from PT. Patient transferred to bed with overhead lift. Patient performs bed mobility to center in bed. Patient in bed post treatment with all needs met, nursing notified, call light in reach, all needs met, nursing notified. PT Short Term Goals Short Term Goals Time Frame: Feb 17, 2021 Roll Left & Right: 3 Sit to lyin Lying to sitting on side of be: 3 Wheel 50ft w/2 turns: 4 Wheel 150 feet: 4 PT Salt [place] Operator Goals [place] Operator Goals PT [place] Operator Goals Time Frame: Mar 03, 2021 Roll Left & Right (QC): 4 Sit to Lying (QC): 4 Lying-Sitting on Side/Bed(QC): 4 Sit to Stand (QC): 88 Chair/Fks-au-Qocjr Xfer(QC): 88 Toilet Transfer (QC): 88 Car Transfer (QC): 88 Does the Patient Walk: No and Walking Goal NOT indicated Walk 10 feet (QC): 88 Walk 50ft with 2 Turns (QC): 88 Walk 150 ft (QC): 88 Walking 10ft on Uneven Surface: 88 1 Step (curb) (QC): 88 4 Steps (QC): 88 12 Steps (QC): 88 Picking up an Object (QC): 88 Wheel 50 feet with 2 turns (QC: 6 Wheel 150 feet: 6 PT Plan Treatment/Plan Treatment Plan: Continue Plan of Care Treatment Plan: Bed Mobility, Education, Functional Activity Jorge, Functional Strength, Group Therapy, Gait, Safety, Therapeutic Exercise, Transfers Treatment Duration: Mar 03, 2021 Frequency: At least 5 of 7 days/Wk (IRF) Estimated Hrs Per Day: 1.5 hours per day Patient and/or Family Agrees t: Yes Safety Risks/Education Patient Education: Transfer Techniques, Reviewed Precautions, Safety Issues Teaching Recipient: Patient Teaching Methods: Demonstration, Discussion Response to Teaching: Verbalize Understanding, Return Demonstration Time/GCodes Time In: 1300 Time Out: 1330 Total Billed Treatment Time: 30 Total Billed Treatment Visit, GLENN, NEVILLE RANDLE PT Feb 25, 2021 14:44
[2021-02-25] MEDS: DIGOXIN 0.125 MG (LANOXIN) TAB PO SCH (16:59)
[2021-02-25] MEDS: TAMSULOSIN 0.4 MG (FLOMAX) CAP PO SCH (16:59)
[2021-02-25] MEDS ORDERED: LIDOCAINE UROJET 2% GEL 10 ML PKG ONE (19:27)
[2021-02-25] MEDS: LIDOCAINE UROJET 2% GEL 10 ML PKG TOP PRN (19:30)
[2021-02-25 20:00] VITALS: BP 107/60
[2021-02-25] MEDS: TOLTERODINE LA 4 MG (DETROL) CAP PO SCH (21:35)
[2021-02-25] MEDS: SIMvastatin 40 MG (ZOCOR) TAB PO SCH (21:35)
[2021-02-25] MEDS: MELATONIN 3 MG TABLET PO PRN (21:35)
[2021-02-26] MEDS: KCL 10 MEQ TAB (MICRO K) PO SCH (06:20)
[2021-02-26] MEDS: MULTIVIT W/MINERALS TAB (THERAGRAN M) PO SCH (06:20)
[2021-02-26] MEDS: BETHANECHOL 10 MG (URECHOLINE) TAB PO SCH ×4 (06:20→21:37)
[2021-02-26] MEDS: LEVOTHYROXINE 100 MCG (LEVOTHROID) TAB PO SCH (06:20)
[2021-02-26] MEDS: inSUlin ASPART (NovoLOG) 1 UNIT/0.01 ML (CHARGE PER UNIT) SC SCH ×4 (06:21→21:37)
--- NOTE | 2021-02-26 08:35 | Physical Therapy Daily Note ---
PT Daily Note-Current Subjective Patient in bed pre tx, agrees to PT, has no complaints of pain Appearance Patient in bed post tx with nurse call, phone, tray, all needs met. Mental Status Patient Orientation: Person, Place, Situation Transfers SCALE: Activities may be completed with or without assistive devices. 8-Bmdwihjqhc-wjxjage completes the activity by him/herself with no assistance from a helper. 5-Set-up or Clean-up Assistance-helper sets up or cleans up; patient completes activity. Newton assists only prior to or following the activity. 4-Supervision or Touching Assistance-helper provides verbal cues and/or touching/steadying and/or contact guard assistance as patient completes activity. Assistance may be provided throughout the activity or intermittently. 3-Partial/Moderate Assistance-helper does LESS THAN HALF the effort. Newton lifts, holds or supports trunk or limbs, but provides less than half the effort. 2-Substantial/Maximal Assistance-helper does MORE THAN HALF the effort. Newton lifts or holds trunk or limbs and provides more than half the effort. 3-Xsvzqwwtq-axhyjj does ALL the effort. Patient does none of the effort to complete the activity. Or, the assistance of 2 or more helpers is required for the patient to complete the activity. If activity was not attempted, code reason: 7-Patient Refused. 9-Not Applicable-not attempted and the patient did not perform the activity before the current illness, exacerbation or injury. 10-Not Attempted due to Environmental Limitations-(lack of equipment, weather restraints, etc.). 88-Not Attempted due to Medical Conditions or Safety Concerns. Exercises Supine Ex: Ankle pumps, Quad Set, Glut sets, Heel Slides (AAROM on left side), Short Arc Quads (AAROM on left side), Straight leg raise (AAROM on left side), Hip abd/add (AAROM on left side) Treatments LE strengthening Assessment Current Status: Fair Progress right leg seems to be a little stronger PT Short Term Goals Short Term Goals Time Frame: Feb 17, 2021 Roll Left & Right: 3 Sit to lyin Lying to sitting on side of be: 3 Wheel 50ft w/2 turns: 4 Wheel 150 feet: 4 PT Halfway Goals Professor Of Communication And Writing Goals PT Halfway Goals Time Frame: Mar 03, 2021 Roll Left & Right (QC): 4 Sit to Lying (QC): 4 Lying-Sitting on Side/Bed(QC): 4 Sit to Stand (QC): 88 Chair/Fto-gh-Wkyxu Xfer(QC): 88 Toilet Transfer (QC): 88 Car Transfer (QC): 88 Does the Patient Walk: No and Walking Goal NOT indicated Walk 10 feet (QC): 88 Walk 50ft with 2 Turns (QC): 88 Walk 150 ft (QC): 88 Walking 10ft on Uneven Surface: 88 1 Step (curb) (QC): 88 4 Steps (QC): 88 12 Steps (QC): 88 Picking up an Object (QC): 88 Wheel 50 feet with 2 turns (QC: 6 Wheel 150 feet: 6 PT Plan Problem List Problem List: Activity Tolerance, Functional Strength, Safety, Balance, Gait, Transfer, Bed Mobility, ROM Treatment/Plan Treatment Plan: Continue Plan of Care Treatment Plan: Bed Mobility, Education, Functional Activity Jorge, Functional Strength, Group Therapy, Gait, Safety, Therapeutic Exercise, Transfers Treatment Duration: Mar 03, 2021 Frequency: At least 5 of 7 days/Wk (IRF) Estimated Hrs Per Day: 1.5 hours per day Patient and/or Family Agrees t: Yes Safety Risks/Education Patient Education: Correct Positioning, Safety Issues Teaching Recipient: Patient Teaching Methods: Demonstration, Discussion Response to Teaching: Reinforcement Needed Time/GCodes Time In: 819 Time Out: 08 Total Billed Treatment Time: 15 Total Billed Treatment 1 visit EX Marlee' TARA MCCOY PT Feb 26, 2021 08:35
[2021-02-26 08:45] VITALS: BP 102/59
[2021-02-26] MEDS: FERROUS SULF 325 MG (IRON) TAB PO SCH (09:05)
[2021-02-26] MEDS: FAMOTIDINE 20 MG (PEPCID) TABLET PO SCH (09:05)
[2021-02-26] MEDS: CALCIUM CARB + VIT D 600 MG (CALCARB + D) TAB PO SCH (09:05)
[2021-02-26] MEDS: MAGNESIUM OXIDE (MAG-OX)400 MG TAB PO SCH (09:05)
[2021-02-26] MEDS: meTOprolol SUCCINATE 100 MG (TOPROL XL) TAB PO SCH (09:06)
[2021-02-26] MEDS: LOSARTAN 50 MG (COZAAR) TAB PO SCH (09:06)
[2021-02-26] MEDS: lisINopril 10 MG (PRINIVIL) TABLET PO SCH (09:06)
[2021-02-26] MEDS: FUROSEMIDE 20 MG (LASIX) TAB PO SCH (09:06)
[2021-02-26] MEDS: OMEGA 3 (FISH OIL) 1000 MG CAP PO SCH ×2 (09:06→21:36)
[2021-02-26] MEDS: APIXABAN 5 MG (ELIQUIS) TABLET PO SCH ×2 (09:06→21:37)
[2021-02-26] MEDS: DOCUSATE SODIUM 100 MG (COLACE) CAP PO SCH ×2 (09:10→21:37)
[2021-02-26] MEDS: SENNA W/DOCUSATE (SENOKOT S) TABLET PO SCH ×2 (09:10→21:36)
[2021-02-26] MEDS: polyethylene glycoL POWDER 17 GM (MIRALAX) PACK PO SCH ×3 (09:38→21:39)
--- NOTE | 2021-02-26 10:23 | PM&R Progress Note ---
Subjective HPI/CC On Admission Date Seen by Provider: Feb 26, 2021 Time Seen by Provider: 13:00 Subjective/Events-last exam 02/26/2021: Patient doing well Discussed [facility] referral custodial being arranged in meantime Bowels are moving well 02/25/2021: Miscommunication with [place] in it does not appear that it will be a hospital hospital transfer Remains a Coleen lift Son here for family education Denies any new issues 02/24/2021: [facility] had reached out and reviewed the case and it appeared that he was in the midst of being accepted. Patient very excited about the chance to go to [facility] Denies any issues Still a Coleen lift 02/23/2021: Patient doing well Required in and out caths yesterday due to 490 retention Detrol has been started by urology [facility] still in process Bed mobility improved 02/22/2021: Patient doing well Urology started Detrol for incontinence [facility] pending Bowels are moving well Still requiring Coleen lift 02/21/2021: Patient reports no significant concerns Bladder scanning per urology rec No word from [facility] Incontinent of bowel today Labs look good 02/20/2021: Patient has no new complaints today Denies any new issues No pain is reported Incontinence is an issue Fecal incontinence also an issue 02/19/2021: Patient had an uneventful night Denies any new issues Working on bladder retraining Check meds and labs 02/18/2021: Patient doing well Has no complaints Cystoscopy to be done today by urology No pain is reported Bowel evacuation ordered 02/17/2021: Patient doing really well Bowels moved yesterday All records sent to [facility] Has no rectal tone May need a suppository to evacuate bowels and treated like a paraplegic Bottom wound appears to be very superficial on a cushion 02/16/2021: Pt doing well No issues Bowels moved yesterday and fecal incontinence Frausto cath in Cystoscopy by Dr. Welsh on Sunday02/15/2021: Pt doing a little better Frausto required and Dr. Welsh consulted Spot checks of oxygen without CPAP during the night are okay Still a Coleen-lift 02/14/2021: Pt doing well Condom catheter will be attempted Platelet count 108 Wound looks good BP and blood sugar good No pain Bowels are moving 02/13/2021: Patient doing well Has no needs Bowels are moving well No issues Sugars are reviewed 02/12/2021: Patient doing well Incontinent of bowel and bladder a lot Able to move himself and turn himself in bed Check meds and labs Cognitive deficit could preclude independent living 02/11/2021: Patient doing pretty well Dr. Rubio will be consulted Noncompliant with CPAP machine Oxygen was good last night at 90% Wound care consulted Dr. Edenilson Prakash good Bowels are a bit loose and he does have fecal incontinence Review of Systems Neurological: Weakness, Incoordination Objective Exam Vital Signs Vital Signs Date Time Temp Pulse Resp B/P (MAP) Pulse Ox O2 Delivery O2 Flow Rate FiO2 02/26/21 21:00 96 Room Air 02/26/21 20:31 36.6 80 20 115/70 (85) Capillary Refill : General Appearance: No Apparent Distress, WD/WN, Chronically ill HEENT: PERRL/EOMI, Normal ENT Inspection, Pharynx Normal Neck: Full Range of Motion, Normal Inspection, Non Tender, Supple, Carotid Bruit Respiratory: Chest Non Tender, Lungs Clear, Normal Breath Sounds, No Accessory Muscle Use, No Respiratory Distress Cardiovascular: Regular Rate, Rhythm, No Edema, No Gallop, No JVD, No Murmur, Normal Peripheral Pulses Gastrointestinal: Normal Bowel Sounds, No Organomegaly, No Pulsatile Mass, Non Tender, Soft Back: Normal Inspection, No CVA Tenderness, No Vertebral Tenderness Extremity: Normal Capillary Refill, Normal Inspection, Normal Range of Motion, Non Tender, No Calf Tenderness, No Pedal Edema Neurologic/Psychiatric: Alert, Oriented x3, Normal Mood/Affect, 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 FIM Transfers Therapy Code Descriptions/Definitions Functional Adams Measure: 0=Not Assessed/NA 4=Minimal Assistance 1=Total Assistance 5=Supervision or Setup 2=Maximal Assistance 6=Modified Adams 3=Moderate Assistance 7=Complete IndependenceSCALE: Activities may be completed with or without assistive devices. 6-Fvwfrvooey-gmeooat completes the activity by him/herself with no assistance from a helper. 5-Set-up or Clean-up Assistance-helper sets up or cleans up; patient completes activity. Holiday assists only prior to or following the activity. 4-Supervision or Touching Assistance-helper provides verbal cues and/or touching/steadying and/or contact guard assistance as patient completes activity. Assistance may be provided throughout the activity or intermittently. 3-Partial/Moderate Assistance-helper does LESS THAN HALF the effort. Holiday lifts, holds or supports trunk or limbs, but provides less than half the effort. 2-Substantial/Maximal Assistance-helper does MORE THAN HALF the effort. Holiday lifts or holds trunk or limbs and provides more than half the effort. 3-Iawgpfbsy-ulmhqq does ALL the effort. Patient does none of the effort to compl ete the activity. Or, the assistance of 2 or more helpers is required for the patient to complete the activity. If activity was not attempted, code reason: 7-Patient Refused. 9-Not Applicable-not attempted and the patient did not perform the activity before the current illness, exacerbation or injury. 10-Not Attempted due to Environmental Limitations-(lack of equipment, weather restraints, etc.). 88-Not Attempted due to Medical Conditions or Safety Concerns. Roll Left to Right (QC): 3 Sit to Lying (QC): 2 Sit to Stand (QC): 1 Chair/Fgm-tb-Dftnk Xfer(QC): 1 Car Transfer (QC): 88 Gait Training Does the Patient Walk?: No and Walking Goal NOT indicated Walk 10 feet (QC): 88 Walk 50 ft with 2 Turns(QC): 88 Walk 150 ft (QC): 88 Walking 10ft/uneven surface-QC: 88 Wheelchair Training Does the Pt Use a Wheelchair?: Yes Distance: 100'x2 Wheel 50 ft with 2 turns (QC): 4 Wheel 150 ft (QC): 3 Type of Wheelchair: Manual Stair Training 1 Step (curb) (QC): 88 4 Steps (QC): 88 12 Steps (QC): 88 Balance Picking up an Object (QC): 88 ADL-Treatment Eating (QC): 4 Oral Hygiene (QC): 5 Bathing Location: L Arm, R Arm, L Upper Leg, R Upper Leg, L Lower Leg (including foot), R Lower Leg (including foot), Chest, Abdomen, Buttocks, Perineal Area Shower/Bathe Self (QC): 3 Upper Body Dressing (QC): 1 Lower Body Dressing (QC): 1 On/Off Footwear (QC): 3 Toileting Hygiene (QC): 1 Toilet Transfer (QC): 1 Assessment/Plan Assessment and Plan Assess & Plan/Chief Complaint Assessment: 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 and subsequent neurological deficits Lumbar L4-L5 subarticular recess narrowing B/L Left-sided weakness Hepatic Hemangioma Systolic Heart Failure LFT elevation LBBB Previous hypotension Obesity CAD Dementia/cognitive impairment GERD PUD PVD Diabetic polyneuropathy Progressive weakness High risk of falling Gait disturbance Spasticity T2DM Constipation Edema HTN Paroxysmal A-fib Thrombocytopenia Urinary Retention Status post UTI (resolved) BAM on CPAP Cystoscopy on 02/18/2021 Plan: Aggressive PT, OT, and speech therapy Order basic lab work in the morning Review records, talk to his family members as they are more in tune with his medical condition then the patient himself Neurology follow up Consult Dr. Rubio for A. fib 02/11/2021: Supportive care Dr. Rubio consult Poor memory recall noted 02/12/2021: Incontinence care Aggressive therapy 02/13/2021: Incontinence care Aggressive therapy 02/14/2021: Attempt condom catheter due to incontinence Monitor for retention Dr. Welsh consult 02/15/2021: Appreciate urology management Aggressive therapy Send records to [facility] 02/16/2021: Supportive care Send records to [facility] from [facility] Continue aggressive treatment Cystoscopy tomorrow 02/17/2021: Cystoscopy tomorrow Bowel evacuation 02/18/2021: Cystoscopy Appreciate urology 02/19/2021: Supportive care Urology appreciated 02/20/2021: Supportive care Incontinence care 02/21/2021: Supportive care Incontinence care Appreciate urology 02/22/2021: Detrol for incontinence Appreciate urology Continue aggressive treatment 02/23/2021 Patient will need nursing care at discharge Appreciate urology 02/24/2021: [facility] transfer? Continue aggressive therapy 02/25/2021: custodial admission [facility] still pending 02/26/2021: Await intermediate placement [facility] referral (1) Cervical spinal cord compression (2) Atrial fibrillation (3) Anticoagulation adequate with anticoagulant therapy (4) Urinary retention CARMELLA ESTRADA DO Feb 26, 2021 10:22
[2021-02-26] MEDS: DIGOXIN 0.125 MG (LANOXIN) TAB PO SCH (17:30)
[2021-02-26] MEDS: TAMSULOSIN 0.4 MG (FLOMAX) CAP PO SCH (17:31)
[2021-02-26 20:31] VITALS: BP 115/70
[2021-02-26] MEDS: MELATONIN 3 MG TABLET PO PRN (21:36)
[2021-02-26] MEDS: TOLTERODINE LA 4 MG (DETROL) CAP PO SCH (21:36)
[2021-02-26] MEDS: SIMvastatin 40 MG (ZOCOR) TAB PO SCH (21:36)
--- NOTE | 2021-02-27 06:41 | PM&R Progress Note ---
Subjective HPI/CC On Admission Date Seen by Provider: Feb 27, 2021 Time Seen by Provider: 13:00 Subjective/Events-last exam 02/27/21: Patient doing well We will speak to his primary care provider before he is [facility] to [facility] to be sure he can follow-up on [facility] referral Bowels moved today Glucose 168 Check meds and labs 02/26/2021: Patient doing well Discussed [facility] referral group home being arranged in meantime Bowels are moving well 02/25/2021: Miscommunication with [place] in it does not appear that it will be a hospital hospital transfer Remains a Coleen lift Son here for family education Denies any new issues 02/24/2021: [facility] had reached out and reviewed the case and it appeared that he was in the midst of being accepted. Patient very excited about the chance to go to [facility] Denies any issues Still a Coleen lift 02/23/2021: Patient doing well Required in and out caths yesterday due to 490 retention Detrol has been started by urology [facility] still in process Bed mobility improved 02/22/2021: Patient doing well Urology started Detrol for incontinence [facility] pending Bowels are moving well Still requiring Coleen lift 02/21/2021: Patient reports no significant concerns Bladder scanning per urology rec No word from [facility] Incontinent of bowel today Labs look good 02/20/2021: Patient has no new complaints today Denies any new issues No pain is reported Incontinence is an issue Fecal incontinence also an issue 02/19/2021: Patient had an uneventful night Denies any new issues Working on bladder retraining Check meds and labs 02/18/2021: Patient doing well Has no complaints Cystoscopy to be done today by urology No pain is reported Bowel evacuation ordered 02/17/2021: Patient doing really well Bowels moved yesterday All records sent to [facility] Has no rectal tone May need a suppository to evacuate bowels and treated like a paraplegic Bottom wound appears to be very superficial on a cushion 02/16/2021: Pt doing well No issues Bowels moved yesterday and fecal incontinence Frausto cath in Cystoscopy by Dr. Welsh on Sunday02/15/2021: Pt doing a little better Frausto required and Dr. Welsh consulted Spot checks of oxygen without CPAP during the night are okay Still a Coleen-lift 02/14/2021: Pt doing well Condom catheter will be attempted Platelet count 108 Wound looks good BP and blood sugar good No pain Bowels are moving 02/13/2021: Patient doing well Has no needs Bowels are moving well No issues Sugars are reviewed 02/12/2021: Patient doing well Incontinent of bowel and bladder a lot Able to move himself and turn himself in bed Check meds and labs Cognitive deficit could preclude independent living 02/11/2021: Patient doing pretty well Dr. Rubio will be consulted Noncompliant with CPAP machine Oxygen was good last night at 90% Wound care consulted Dr. Pyle Sugars good Bowels are a bit loose and he does have fecal incontinence Review of Systems General: Fatigue, Malaise Genitourinary: Retention Neurological: Weakness, Incoordination Objective Exam Vital Signs Vital Signs Date Time Temp Pulse Resp B/P (MAP) Pulse Ox O2 Delivery O2 Flow Rate FiO2 02/27/21 21:55 96 Room Air 02/27/21 19:38 36.2 64 18 118/74 (89) Capillary Refill : General Appearance: No Apparent Distress, WD/WN, Chronically ill HEENT: PERRL/EOMI, Normal ENT Inspection, Pharynx Normal Neck: Full Range of Motion, Normal Inspection, Non Tender, Supple, Carotid Bruit Respiratory: Chest Non Tender, Lungs Clear, Normal Breath Sounds, No Accessory Muscle Use, No Respiratory Distress Cardiovascular: Regular Rate, Rhythm, No Edema, No Gallop, No JVD, No Murmur, Normal Peripheral Pulses Gastrointestinal: Normal Bowel Sounds, No Organomegaly, No Pulsatile Mass, Non Tender, Soft Back: Normal Inspection, No CVA Tenderness, No Vertebral Tenderness Extremity: Normal Capillary Refill, Normal Inspection, Normal Range of Motion, Non Tender, No Calf Tenderness, No Pedal Edema Neurologic/Psychiatric: Alert, Oriented x3, Normal Mood/Affect, 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 FIM Transfers Therapy Code Descriptions/Definitions Functional Haakon Measure: 0=Not Assessed/NA 4=Minimal Assistance 1=Total Assistance 5=Supervision or Setup 2=Maximal Assistance 6=Modified Haakon 3=Moderate Assistance 7=Complete IndependenceSCALE: Activities may be completed with or without assistive devices. 3-Kvzyvsjisd-jvqyfly completes the activity by him/herself with no assistance from a helper. 5-Set-up or Clean-up Assistance-helper sets up or cleans up; patient completes activity. [place] assists only prior to or following the activity. 4-Supervision or Touching Assistance-helper provides verbal cues and/or touching/steadying and/or contact guard assistance as patient completes activity. Assistance may be provided throughout the activity or intermittently. 3-Partial/Moderate Assistance-helper does LESS THAN HALF the effort. [place] lifts, holds or supports trunk or limbs, but provides less than half the effort. 2-Substantial/Maximal Assistance-helper does MORE THAN HALF the effort. [place] lifts or holds trunk or limbs and provides more than half the effort. 3-Byyqsqmip-faoekl does ALL the effort. Patient does none of the effort to complete the activity. Or, the assistance of 2 or more helpers is required for the patient to complete the activity. If activity was not attempted, code reason: 7-Patient Refused. 9-Not Applicable-not attempted and the patient did not perform the activity before the current illness, exacerbation or injury. 10-Not Attempted due to Environmental Limitations-(lack of equipment, weather restraints, etc.). 88-Not Attempted due to Medical Conditions or Safety Concerns. Roll Left to Right (QC): 3 Sit to Lying (QC): 2 Sit to Stand (QC): 1 Chair/Gxx-cb-Xsbgm Xfer(QC): 1 Car Transfer (QC): 88 Gait Training Does the Patient Walk?: No and Walking Goal NOT indicated Walk 10 feet (QC): 88 Walk 50 ft with 2 Turns(QC): 88 Walk 150 ft (QC): 88 Walking 10ft/uneven surface-QC: 88 Wheelchair Training Does the Pt Use a Wheelchair?: Yes Distance: 100'x2 Wheel 50 ft with 2 turns (QC): 4 Wheel 150 ft (QC): 3 Type of Wheelchair: Manual Stair Training 1 Step (curb) (QC): 88 4 Steps (QC): 88 12 Steps (QC): 88 Balance Picking up an Object (QC): 88 ADL-Treatment Eating (QC): 4 Oral Hygiene (QC): 5 Bathing Location: L Arm, R Arm, L Upper Leg, R Upper Leg, L Lower Leg (including foot), R Lower Leg (including foot), Chest, Abdomen, Buttocks, Perineal Area Shower/Bathe Self (QC): 3 Upper Body Dressing (QC): 1 Lower Body Dressing (QC): 1 On/Off Footwear (QC): 3 Toileting Hygiene (QC): 1 Toilet Transfer (QC): 1 Assessment/Plan Assessment and Plan Assess & Plan/Chief Complaint Assessment: 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 and subsequent neurological deficits Lumbar L4-L5 subarticular recess narrowing B/L Left-sided weakness Hepatic Hemangioma Systolic Heart Failure LFT elevation LBBB Previous hypotension Obesity CAD Dementia/cognitive impairment GERD PUD PVD Diabetic polyneuropathy Progressive weakness High risk of falling Gait disturbance Spasticity T2DM Constipation Edema HTN Paroxysmal A-fib Thrombocytopenia Urinary Retention Status post UTI (resolved) BAM on CPAP Cystoscopy on 02/18/2021 Plan: Aggressive PT, OT, and speech therapy Order basic lab work in the morning Review records, talk to his family members as they are more in tune with his medical condition then the patient himself Neurology follow up Consult Dr. Rubio for A. fib 02/11/2021: Supportive care Dr. Rubio consult Poor memory recall noted 02/12/2021: Incontinence care Aggressive therapy 02/13/2021: Incontinence care Aggressive therapy 02/14/2021: Attempt condom catheter due to incontinence Monitor for retention Dr. Welsh consult 02/15/2021: Appreciate urology management Aggressive therapy Send records to [facility] 02/16/2021: Supportive care Send records to [facility] from [facility] Continue aggressive treatment Cystoscopy tomorrow 02/17/2021: Cystoscopy tomorrow Bowel evacuation 02/18/2021: Cystoscopy Appreciate urology 02/19/2021: Supportive care Urology appreciated 02/20/2021: Supportive care Incontinence care 02/21/2021: Supportive care Incontinence care Appreciate urology 02/22/2021: Detrol for incontinence Appreciate urology Continue aggressive treatment 02/23/2021 Patient will need nursing care at discharge Appreciate urology 02/24/2021: [facility] transfer? Continue aggressive therapy 02/25/2021: group home admission [facility] still pending 02/26/2021: Await [facility] placement [facility] referral 02/27/21: Monitor closely Await [facility] placement Will speak to Dr Kennedy (1) Cervical spinal cord compression (2) Atrial fibrillation (3) Anticoagulation adequate with anticoagulant therapy (4) Urinary retention CARMELLA ESTRADA DO Feb 27, 2021 06:41
[2021-02-27] MEDS: LEVOTHYROXINE 100 MCG (LEVOTHROID) TAB PO SCH (06:43)
[2021-02-27] MEDS: MULTIVIT W/MINERALS TAB (THERAGRAN M) PO SCH (06:43)
[2021-02-27] MEDS: BETHANECHOL 10 MG (URECHOLINE) TAB PO SCH ×4 (06:43→21:15)
[2021-02-27] MEDS: KCL 10 MEQ TAB (MICRO K) PO SCH (06:43)
[2021-02-27] MEDS: inSUlin ASPART (NovoLOG) 1 UNIT/0.01 ML (CHARGE PER UNIT) SC SCH ×4 (06:45→21:16)
[2021-02-27] MEDS ORDERED: LIDOCAINE UROJET 2% GEL 10 ML PKG ONE (07:04)
[2021-02-27] MEDS: LIDOCAINE UROJET 2% GEL 10 ML PKG TOP PRN ×2 (07:11→15:06)
[2021-02-27 07:13] VITALS: BP 128/64
[2021-02-27] MEDS ORDERED: LIDOCAINE UROJET 2% GEL 10 ML PKG TOP PRN (07:15)
[2021-02-27] MEDS: lisINopril 10 MG (PRINIVIL) TABLET PO SCH (07:59)
[2021-02-27] MEDS: FAMOTIDINE 20 MG (PEPCID) TABLET PO SCH (07:59)
[2021-02-27] MEDS: LOSARTAN 50 MG (COZAAR) TAB PO SCH (07:59)
[2021-02-27] MEDS: FERROUS SULF 325 MG (IRON) TAB PO SCH (07:59)
[2021-02-27] MEDS: DOCUSATE SODIUM 100 MG (COLACE) CAP PO SCH ×2 (07:59→21:15)
[2021-02-27] MEDS: OMEGA 3 (FISH OIL) 1000 MG CAP PO SCH ×2 (08:00→21:15)
[2021-02-27] MEDS: FUROSEMIDE 20 MG (LASIX) TAB PO SCH (08:00)
[2021-02-27] MEDS: polyethylene glycoL POWDER 17 GM (MIRALAX) PACK PO SCH ×3 (08:00→21:17)
[2021-02-27] MEDS: MAGNESIUM OXIDE (MAG-OX)400 MG TAB PO SCH (08:00)
[2021-02-27] MEDS: meTOprolol SUCCINATE 100 MG (TOPROL XL) TAB PO SCH (08:00)
[2021-02-27] MEDS: CALCIUM CARB + VIT D 600 MG (CALCARB + D) TAB PO SCH (08:00)
[2021-02-27] MEDS: APIXABAN 5 MG (ELIQUIS) TABLET PO SCH ×2 (08:00→21:15)
[2021-02-27] MEDS: SENNA W/DOCUSATE (SENOKOT S) TABLET PO SCH ×2 (08:00→21:15)
[2021-02-27] MEDS: DIGOXIN 0.125 MG (LANOXIN) TAB PO SCH (17:20)
[2021-02-27] MEDS: TAMSULOSIN 0.4 MG (FLOMAX) CAP PO SCH (17:20)
[2021-02-27 19:38] VITALS: BP 118/74
[2021-02-27] MEDS: TOLTERODINE LA 4 MG (DETROL) CAP PO SCH (21:15)
[2021-02-27] MEDS: SIMvastatin 40 MG (ZOCOR) TAB PO SCH (21:15)
[2021-02-28 06:03] LABS: BASOPHILS # (AUTO) 0.1 10^3/uL (0.0-0.1); BASOPHILS % (AUTO) 1 % (0-10); EOSINOPHILS # (AUTO) 0.1 10^3/uL (0.0-0.3); EOSINOPHILS % (AUTO) 2 % (0-10); HEMATOCRIT 42 % (40-54); HEMOGLOBIN 14.1 g/dL (13.3-17.7); LYMPHOCYTES # (AUTO) 1.4 10^3/uL (1.0-4.0); LYMPHOCYTES % (AUTO) 30 % (12-44); MEAN CORPUSCULAR HEMOGLOBIN 32 pg (25-34); MEAN CORPUSCULAR HGB CONC 33 g/dL (32-36); MEAN CORPUSCULAR VOLUME 96 fL (80-99); MEAN PLATELET VOLUME 10.8 fL (9.0-12.2); MONOCYTES # (AUTO) 0.7 10^3/uL (0.0-1.0); MONOCYTES % (AUTO) 15 % (0-12); NEUTROPHILS # (AUTO) 2.5 10^3/uL (1.8-7.8); NEUTROPHILS % (AUTO) 52 % (42-75); PLATELET COUNT 295 10^3/uL (130-400); WHITE BLOOD COUNT 4.8 10^3/uL (4.3-11.0)
[2021-02-28 06:23] LABS: ALBUMIN 3.1 GM/DL (3.2-4.5); POTASSIUM 3.6 MMOL/L (3.6-5.0)
[2021-02-28] MEDS: KCL 10 MEQ TAB (MICRO K) PO SCH (06:24)
[2021-02-28] MEDS: MULTIVIT W/MINERALS TAB (THERAGRAN M) PO SCH (06:24)
[2021-02-28] MEDS: LEVOTHYROXINE 100 MCG (LEVOTHROID) TAB PO SCH (06:24)
[2021-02-28] MEDS: inSUlin ASPART (NovoLOG) 1 UNIT/0.01 ML (CHARGE PER UNIT) SC SCH ×4 (06:24→21:27)
[2021-02-28] MEDS: BETHANECHOL 10 MG (URECHOLINE) TAB PO SCH ×4 (06:24→21:39)
[2021-02-28 06:25] LABS: TOTAL PROTEIN 5.9 GM/DL (6.4-8.2)
[2021-02-28 06:29] LABS: CREATININE SERUM 0.97 MG/DL (0.60-1.30)
[2021-02-28 07:22] VITALS: BP 116/72
[2021-02-28] MEDS: APIXABAN 5 MG (ELIQUIS) TABLET PO SCH ×2 (07:51→21:39)
[2021-02-28] MEDS: FERROUS SULF 325 MG (IRON) TAB PO SCH (07:52)
[2021-02-28] MEDS: OMEGA 3 (FISH OIL) 1000 MG CAP PO SCH ×2 (07:52→21:39)
[2021-02-28] MEDS: FAMOTIDINE 20 MG (PEPCID) TABLET PO SCH (07:52)
[2021-02-28] MEDS: LOSARTAN 50 MG (COZAAR) TAB PO SCH (07:53)
[2021-02-28] MEDS: CALCIUM CARB + VIT D 600 MG (CALCARB + D) TAB PO SCH (07:53)
[2021-02-28] MEDS: lisINopril 10 MG (PRINIVIL) TABLET PO SCH (07:53)
[2021-02-28] MEDS: FUROSEMIDE 20 MG (LASIX) TAB PO SCH (07:53)
[2021-02-28] MEDS: meTOprolol SUCCINATE 100 MG (TOPROL XL) TAB PO SCH (07:53)
[2021-02-28] MEDS: MAGNESIUM OXIDE (MAG-OX)400 MG TAB PO SCH (07:53)
[2021-02-28] MEDS: polyethylene glycoL POWDER 17 GM (MIRALAX) PACK PO SCH ×2 (08:22→21:48)
[2021-02-28] MEDS: DOCUSATE SODIUM 100 MG (COLACE) CAP PO SCH ×2 (08:22→21:39)
[2021-02-28] MEDS: SENNA W/DOCUSATE (SENOKOT S) TABLET PO SCH ×2 (08:23→21:49)
--- NOTE | 2021-02-28 08:59 | PM&R Progress Note ---
Subjective HPI/CC On Admission Date Seen by Provider: Feb 28, 2021 Time Seen by Provider: 09:00 Subjective/Events-last exam 02/28/21: Patient doing well Labs reviewed No pain reported Spoke to Dr Kennedy his PCP and updated him on everything about the case and the need to f/u [facility] referral Will fax all records to him at [phone] so he can have all of the records also Incontinence noted BM+ 02/27/21: Patient doing well We will speak to his primary care provider before he is discharged to the shelter to be sure he can follow-up on [facility] referral Bowels moved today Glucose 168 Check meds and labs 02/26/2021: Patient doing well Discussed [facility] referral longterm being arranged in meantime Bowels are moving well 02/25/2021: Miscommunication with [place] in it does not appear that it will be a hospital hospital transfer Remains a Coleen lift Son here for family education Denies any new issues 02/24/2021: [facility] had reached out and reviewed the case and it appeared that he was in the midst of being accepted. Patient very excited about the chance to go to [facility] Denies any issues Still a Coleen lift 02/23/2021: Patient doing well Required in and out caths yesterday due to 490 retention Detrol has been started by urology [facility] still in process Bed mobility improved 02/22/2021: Patient doing well Urology started Detrol for incontinence [facility] pending Bowels are moving well Still requiring Coleen lift 02/21/2021: Patient reports no significant concerns Bladder scanning per urology rec No word from [facility] Incontinent of bowel today Labs look good 02/20/2021: Patient has no new complaints today Denies any new issues No pain is reported Incontinence is an issue Fecal incontinence also an issue 02/19/2021: Patient had an uneventful night Denies any new issues Working on bladder retraining Check meds and labs 02/18/2021: Patient doing well Has no complaints Cystoscopy to be done today by urology No pain is reported Bowel evacuation ordered 02/17/2021: Patient doing really well Bowels moved yesterday All records sent to [facility] Has no rectal tone May need a suppository to evacuate bowels and treated like a paraplegic Bottom wound appears to be very superficial on a cushion 02/16/2021: Pt doing well No issues Bowels moved yesterday and fecal incontinence Frausto cath in Cystoscopy by Dr. Welsh on Sunday02/15/2021: Pt doing a little better Frausto required and Dr. Welsh consulted Spot checks of oxygen without CPAP during the night are okay Still a Coleen-lift 02/14/2021: Pt doing well Condom catheter will be attempted Platelet count 108 Wound looks good BP and blood sugar good No pain Bowels are moving 02/13/2021: Patient doing well Has no needs Bowels are moving well No issues Sugars are reviewed 02/12/2021: Patient doing well Incontinent of bowel and bladder a lot Able to move himself and turn himself in bed Check meds and labs Cognitive deficit could preclude independent living 02/11/2021: Patient doing pretty well Dr. Rubio will be consulted Noncompliant with CPAP machine Oxygen was good last night at 90% Wound care consulted Dr. Edenilson Prakash good Bowels are a bit loose and he does have fecal incontinence Review of Systems General: Fatigue, Malaise Neurological: Weakness, Incoordination Objective Exam Vital Signs Vital Signs Date Time Temp Pulse Resp B/P (MAP) Pulse Ox O2 Delivery O2 Flow Rate FiO2 02/28/21 21:00 Room Air 02/28/21 19:56 36.7 84 18 113/57 (75) 96 Capillary Refill : General Appearance: No Apparent Distress, WD/WN, Chronically ill HEENT: PERRL/EOMI, Normal ENT Inspection, Pharynx Normal Neck: Full Range of Motion, Normal Inspection, Non Tender, Supple, Carotid B ruit Respiratory: Chest Non Tender, Lungs Clear, Normal Breath Sounds, No Accessory Muscle Use, No Respiratory Distress Cardiovascular: Regular Rate, Rhythm, No Edema, No Gallop, No JVD, No Murmur, Normal Peripheral Pulses Gastrointestinal: Normal Bowel Sounds, No Organomegaly, No Pulsatile Mass, Non Tender, Soft Back: Normal Inspection, No CVA Tenderness, No Vertebral Tenderness Extremity: Normal Capillary Refill, Normal Inspection, Normal Range of Motion, Non Tender, No Calf Tenderness, No Pedal Edema Neurologic/Psychiatric: Alert, Oriented x3, Normal Mood/Affect, tents assembler II-XII Norm as Tested, Abnormal Gait (Unable to ambulate), Depressed Affect, Motor Weakness (Left side 3/5) Skin: Normal Color, Warm/Dry Lymphatic: No Adenopathy Results/Procedures Lab Laboratory Tests 02/28/21 05:45 Patient resulted labs reviewed. FIM Transfers Therapy Code Descriptions/Definitions Functional [place] Measure: 0=Not Assessed/NA 4=Minimal Assistance 1=Total Assistance 5=Supervision or Setup 2=Maximal Assistance 6=Modified [place] 3=Moderate Assistance 7=Complete IndependenceSCALE: Activities may be completed with or without assistive devices. 4-Amdtwpfkjo-spoyuzo completes the activity by him/herself with no assistance from a helper. 5-Set-up or Clean-up Assistance-helper sets up or cleans up; patient completes activity. [place] assists only prior to or following the activity. 4-Supervision or Touching Assistance-helper provides verbal cues and/or touching/steadying and/or contact guard assistance as patient completes activity. Assistance may be provided throughout the activity or intermittently. 3-Partial/Moderate Assistance-helper does LESS THAN HALF the effort. [place] lifts, holds or supports trunk or limbs, but provides less than half the effort. 2-Substantial/Maximal Assistance-helper does MORE THAN HALF the effort. [place] lifts or holds trunk or limbs and provides more than half the effort. 3-Zyelzreyy-wfeflf does ALL the effort. Patient does none of the effort to complete the activity. Or, the assistance of 2 or more helpers is required for the patient to complete the activity. If activity was not attempted, code reason: 7-Patient Refused. 9-Not Applicable-not attempted and the patient did not perform the activity before the current illness, exacerbation or injury. 10-Not Attempted due to Environmental Limitations-(lack of equipment, weather restraints, etc.). 88-Not Attempted due to Medical Conditions or Safety Concerns. Roll Left to Right (QC): 3 Sit to Lying (QC): 2 Sit to Stand (QC): 1 Chair/Efb-mx-Mekln Xfer(QC): 1 Car Transfer (QC): 88 Gait Training Does the Patient Walk?: No and Walking Goal NOT indicated Walk 10 feet (QC): 88 Walk 50 ft with 2 Turns(QC): 88 Walk 150 ft (QC): 88 Walking 10ft/uneven surface-QC: 88 Wheelchair Training Does the Pt Use a Wheelchair?: Yes Distance: 100'x2 Wheel 50 ft with 2 turns (QC): 4 Wheel 150 ft (QC): 3 Type of Wheelchair: Manual Stair Training 1 Step (curb) (QC): 88 4 Steps (QC): 88 12 Steps (QC): 88 Balance Picking up an Object (QC): 88 ADL-Treatment Eating (QC): 4 Oral Hygiene (QC): 5 Bathing Location: L Arm, R Arm, L Upper Leg, R Upper Leg, L Lower Leg (including foot), R Lower Leg (including foot), Chest, Abdomen, Buttocks, Perineal Area Shower/Bathe Self (QC): 3 Upper Body Dressing (QC): 1 Lower Body Dressing (QC): 1 On/Off Footwear (QC): 3 Toileting Hygiene (QC): 1 Toilet Transfer (QC): 1 Assessment/Plan Assessment and Plan Assess & Plan/Chief Complaint Assessment: 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 and subsequent neurological deficits Lumbar L4-L5 subarticular recess narrowing B/L Left-sided weakness Hepatic Hemangioma Systolic Heart Failure LFT elevation LBBB Previous hypotension Obesity CAD Dementia/cognitive impairment GERD PUD PVD Diabetic polyneuropathy Progressive weakness High risk of falling Gait disturbance Spasticity T2DM Constipation Edema HTN Paroxysmal A-fib Thrombocytopenia Urinary Retention Status post UTI (resolved) BAM on CPAP Cystoscopy on 02/18/2021 Plan: Aggressive PT, OT, and speech therapy Order basic lab work in the morning Review records, talk to his family members as they are more in tune with his medical condition then the patient himself Neurology follow up Consult Dr. Rubio for A. fib 02/11/2021: Supportive care Dr. Rubio consult Poor memory recall noted 02/12/2021: Incontinence care Aggressive therapy 02/13/2021: Incontinence care Aggressive therapy 02/14/2021: Attempt condom catheter due to incontinence Monitor for retention Dr. Welsh consult 02/15/2021: Appreciate urology management Aggressive therapy Send records to [facility] 02/16/2021: Supportive care Send records to [facility] from [facility] Continue aggressive treatment Cystoscopy tomorrow 02/17/2021: Cystoscopy tomorrow Bowel evacuation 02/18/2021: Cystoscopy Appreciate urology 02/19/2021: Supportive care Urology appreciated 02/20/2021: Supportive care Incontinence care 02/21/2021: Supportive care Incontinence care Appreciate urology 02/22/2021: Detrol for incontinence Appreciate urology Continue aggressive treatment 02/23/2021 Patient will need nursing care at discharge Appreciate urology 02/24/2021: [facility] transfer? Continue aggressive therapy 02/25/2021: longterm admission [facility] still pending 02/26/2021: Await shelter placement [facility] referral 02/27/21: Monitor closely Await NH placement Will speak to Dr Kennedy 02/28/21: Updated PCP Will send records NHP (1) Cervical spinal cord compression (2) Atrial fibrillation (3) Anticoagulation adequate with anticoagulant therapy (4) Urinary retention CARMELLA ESTRADA DO Feb 28, 2021 08:59
--- NOTE | 2021-02-28 11:43 | Physical Therapy Daily Note ---
PT Daily Note-Current Subjective Patient in bed pre tx, agrees to PT, has no complaints of pain, will be co- treating with OT due to poor patient mobility, strength, endurance, coordinate UE and LE during activity, safety and reduce risk of falls. Appearance Patient in WC at bedside post tx with nurse call, phone, tray, all needs met. Mental Status Patient Orientation: Person, Place, Situation Transfers SCALE: Activities may be completed with or without assistive devices. 7-Tvzzapuzwv-rmwffby completes the activity by him/herself with no assistance from a helper. 5-Set-up or Clean-up Assistance-helper sets up or cleans up; patient completes activity. [place] assists only prior to or following the activity. 4-Supervision or Touching Assistance-helper provides verbal cues and/or touching/steadying and/or contact guard assistance as patient completes activity. Assistance may be provided throughout the activity or intermittently. 3-Partial/Moderate Assistance-helper does LESS THAN HALF the effort. [place] li fts, holds or supports trunk or limbs, but provides less than half the effort. 2-Substantial/Maximal Assistance-helper does MORE THAN HALF the effort. [place] lifts or holds trunk or limbs and provides more than half the effort. 7-Wjgmazcxw-xamxhq does ALL the effort. Patient does none of the effort to complete the activity. Or, the assistance of 2 or more helpers is required for the patient to complete the activity. If activity was not attempted, code reason: 7-Patient Refused. 9-Not Applicable-not attempted and the patient did not perform the activity before the current illness, exacerbation or injury. 10-Not Attempted due to Environmental Limitations-(lack of equipment, weather restraints, etc.). 88-Not Attempted due to Medical Conditions or Safety Concerns. Roll Left & Right (QC): 3 Sit to Lying (QC): 3 Lying to Sitting/Side of Bed(Q: 2 Chair/Yfk-hp-Wigqz Xfer(QC): 1 Patient has to roll from side to side to place ck sling under him (min assist rolling to the right, CGA rolling to the left), patient is hoyered to shower chair and taken to shower room, showers, taken back to his room and hoyered to bed. Patient has to roll again from side to side to remove ck sling and finish drying off. Patient then sits on the side of the bed (max assist) and performs ADL's, then lays down and has to roll again from side to side to place another ck sling and transfer him to . Treatments PT performed bed mobility and transfers, supine <-> sit, sitting balance during ADL's, positioning and safety during shower, OT performed shower, dressing, ADL's, UE positioning and safety during activity Assessment Current Status: Poor Progress no change in mobility PT Short Term Goals Short Term Goals Time Frame: Feb 17, 2021 Roll Left & Right: 3 Sit to lyin Lying to sitting on side of be: 3 Wheel 50ft w/2 turns: 4 Wheel 150 feet: 4 PT Penitentiary Goals Penitentiary Goals PT Desktop Manager Goals Time Frame: Mar 03, 2021 Roll Left & Right (QC): 4 Sit to Lying (QC): 4 Lying-Sitting on Side/Bed(QC): 4 Sit to Stand (QC): 88 Chair/Sup-ui-Yrkgh Xfer(QC): 88 Toilet Transfer (QC): 88 Car Transfer (QC): 88 Does the Patient Walk: No and Walking Goal NOT indicated Walk 10 feet (QC): 88 Walk 50ft with 2 Turns (QC): 88 Walk 150 ft (QC): 88 Walking 10ft on Uneven Surface: 88 1 Step (curb) (QC): 88 4 Steps (QC): 88 12 Steps (QC): 88 Picking up an Object (QC): 88 Wheel 50 feet with 2 turns (QC: 6 Wheel 150 feet: 6 PT Plan Problem List Problem List: Activity Tolerance, Functional Strength, Safety, Balance, Gait, Transfer, Bed Mobility, ROM Treatment/Plan Treatment Plan: Continue Plan of Care Treatment Plan: Bed Mobility, Education, Functional Activity Jorge, Functional Strength, Group Therapy, Gait, Safety, Therapeutic Exercise, Transfers Treatment Duration: Mar 03, 2021 Frequency: At least 5 of 7 days/Wk (IRF) Estimated Hrs Per Day: 1.5 hours per day Patient and/or Family Agrees t: Yes Safety Risks/Education Patient Education: Transfer Techniques, Correct Positioning, Safety Issues Teaching Recipient: Patient Teaching Methods: Demonstration, Discussion Response to Teaching: Reinforcement Needed Time/GCodes Time In: 1000 Time Out: 1130 Total Billed Treatment Time: 90 Total Billed Treatment 1 visit FA 90' co-treated for 90' TARA MCCOY PT Feb 28, 2021 11:43
--- NOTE | 2021-02-28 11:51 | Occupational Ther Daily Note ---
OT Current Status-Daily Note Subjective Patient supine in bed, agrees to OT. no c/o pain. will be co-treating with PT due to poor patient mobility, strength, endurance, coordinate UE and LE during activity, safety and reduce risk of falls. Appearance Pt sitting in w/c at therapy departure. all needs within reach Mental Status/Objective Patient Orientation: Person, Place, Situation ADL-Treatment Therapy Code Descriptions/Definitions Functional [place] Measure: 0=Not Assessed/NA 4=Minimal Assistance 1=Total Assistance 5=Supervision or Setup 2=Maximal Assistance 6=Modified [place] 3=Moderate Assistance 7=Complete IndependenceSCALE: Activities may be completed with or without assistive devices. 5-Zeseeiuhhs-cwgxxtx completes the activity by him/herself with no assistance from a helper. 5-Set-up or Clean-up Assistance-helper sets up or cleans up; patient completes activity. [place] assists only prior to or following the activity. 4-Supervision or Touching Assistance-helper provides verbal cues and/or touching/steadying and/or contact guard assistance as patient completes activity. Assistance may be provided throughout the activity or intermittently. 3-Partial/Moderate Assistance-helper does LESS THAN HALF the effort. [place] lifts, holds or supports trunk or limbs, but provides less than half the effort. 2-Substantial/Maximal Assistance-helper does MORE THAN HALF the effort. [place] lifts or holds trunk or limbs and provides more than half the effort. 6-Xtpcwajjn-badzup does ALL the effort. Patient does none of the effort to complete the activity. Or, the assistance of 2 or more helpers is required for the patient to complete the activity. If activity was not attempted, code reason: 7-Patient Refused. 9-Not Applicable-not attempted and the patient did not perform the activity before the current illness, exacerbation or injury. 10-Not Attempted due to Environmental Limitations-(lack of equipment, weather restraints, etc.). 88-Not Attempted due to Medical Conditions or Safety Concerns. Bathing Location: L Arm, R Arm, L Upper Leg, R Upper Leg, L Lower Leg (including foot), R Lower Leg (including foot), Chest, Abdomen, Buttocks, Perineal Area Shower/Bathe Self (QC): 3 On/Off Footwear: 3 Toileting Hygiene (QC): 1 Pt transferred into shower w/c by use of ck. Shower completed, 100% in sitting. Improved sitting balance exhibited during task this date. HOHA needed to maintain L immigration consultant on washcloth when bending down at waist to wash foot. Assist needed to wash L foot due to inability to lift foot off floor. Prior to shower, buttocks washed while in sideling. Pt able to wash all other body parts without assist. Dep to don jovon hose. While sitting EOB, pt donned tierney socks with use of sock aid. Continues to need assist to lift R foot as he threads it into AE. Pt with 3-4 mild LOB to R, needing CGA-min a for recovery. He demonstrates good righting reactions with each LOB. Demonstrates slight SOB with activity this session, needing several rest breaks. Education OT Patient Education: Correct positioning, Energy conservation, Modified ADL techniques, Progress toward Goal/Update tx plan, Purpose of tx/functional activities, Reviewed precautions, Rehab process, Safety issues, Transfer techniques, Use of adapted equipment, W/C management Teaching Recipient: Patient Teaching Methods: Demonstration, Discussion Response to Teaching: Verbalize Understanding, Return Demonstration, Reinforce ment Needed OT Short Term Goals Short Term Goals Time Frame: Feb 24, 2021 Eatin Oral hygiene: 4 Toileting hygiene: 2 Shower/bathe self: 2 Upper body dressin Lower body dressin Putting on/taking off footwear: 3 OT Outside Dealer Sales Representative Goals Jail Goals Time Frame: Mar 04, 2021 Eating (QC): 6 Oral Hygiene (QC): 5 Toileting Hygiene (QC): 4 Shower/Bathe Self (QC): 3 Upper Body Dressing (QC): 4 Lower Body Dressing (QC): 3 On/Off Footwear (QC): 4 1=Demonstrate adherence to instructed precautions during ADL tasks. 2=Patient will verbalize/demonstrate understanding of assistive devices/modifications for ADL. 3=Patient will improve strength/tolerance for activity to enable patient to perform ADL's. OT Education/Plan Problem List/Assessment Assessment: Decreased Activ Tolerance, Decreased Safety Aware, Decreased UE Strength, Dependent Transfers, Impaired Coordination, Impaired Funct Balance, Impaired I ADL's, Impaired Self-Care Skills, Restricted Funct UE ROM Discharge Recommendations Plan/Recommendations: Continue POC Treatment Plan/Plan of Care Treatment,Training & Education: Yes Patient would benefit from OT for education, treatment and training to promote independence in ADL's, mobility, safety and/or upper extremity function for ADL's. Plan of Care: ADL Retraining, Functional Mobility, Group Exercise/Act as Ind, UE Funct Exercise/Act, W/C Management Training Treatment Duration: Mar 04, 2021 Frequency: At least 5 of 7 days/Wk (IRF) Estimated Hrs Per Day: 1.5 hours per day Agreement: Yes Rehab Potential: Poor Time/GCodes Start Time: 10:00 Stop Time: 11:30 Total Time Billed (hr/min): 90 Billed Treatment Time 1 visit, ADL x5 (70 min) FA (20 min) co-treat for 90 min Antonieta Angel OT Feb 28, 2021 11:51
[2021-02-28] MEDS: LIDOCAINE UROJET 2% GEL 10 ML PKG TOP PRN ×2 (12:14→18:41)
[2021-02-28] MEDS: DIGOXIN 0.125 MG (LANOXIN) TAB PO SCH (17:31)
[2021-02-28] MEDS: TAMSULOSIN 0.4 MG (FLOMAX) CAP PO SCH (17:31)
[2021-02-28 19:56] VITALS: BP 113/57
[2021-02-28] MEDS: TOLTERODINE LA 4 MG (DETROL) CAP PO SCH (21:39)
[2021-02-28] MEDS: SIMvastatin 40 MG (ZOCOR) TAB PO SCH (21:39)
[2021-02-28] MEDS: MELATONIN 3 MG TABLET PO PRN (21:44)
[2021-03-01] MEDS: MULTIVIT W/MINERALS TAB (THERAGRAN M) PO SCH (06:27)
[2021-03-01] MEDS: LEVOTHYROXINE 100 MCG (LEVOTHROID) TAB PO SCH (06:27)
[2021-03-01] MEDS: BETHANECHOL 10 MG (URECHOLINE) TAB PO SCH ×4 (06:27→20:40)
[2021-03-01] MEDS: KCL 10 MEQ TAB (MICRO K) PO SCH (06:27)
[2021-03-01] MEDS: inSUlin ASPART (NovoLOG) 1 UNIT/0.01 ML (CHARGE PER UNIT) SC SCH ×4 (06:35→21:33)
[2021-03-01 07:47] VITALS: BP 114/74
--- NOTE | 2021-03-01 08:53 | Physical Therapy Daily Note ---
PT Daily Note-Current Subjective Patient in bed pre tx, agrees to PT, has no complaints of pain. Will be co- treating with OT due to poor patient mobility, strength, endurance, poor sitting balance and trunk control, coordinate UE and LE with activity, safety and reduce risk of falls. Appearance Patient in WC at bedside post tx with nurse call, phone, tray, all needs met. Mental Status Patient Orientation: Normal For Age Transfers SCALE: Activities may be completed with or without assistive devices. 0-Zpsqqbxvcj-tbftfrf completes the activity by him/herself with no assistance from a helper. 5-Set-up or Clean-up Assistance-helper sets up or cleans up; patient completes activity. [place] assists only prior to or following the activity. 4-Supervision or Touching Assistance-helper provides verbal cues and/or touching/steadying and/or contact guard assistance as patient completes activity . Assistance may be provided throughout the activity or intermittently. 3-Partial/Moderate Assistance-helper does LESS THAN HALF the effort. [place] lifts, holds or supports trunk or limbs, but provides less than half the effort. 2-Substantial/Maximal Assistance-helper does MORE THAN HALF the effort. [place] lifts or holds trunk or limbs and provides more than half the effort. 8-Wjvwqmpsr-dswqmr does ALL the effort. Patient does none of the effort to complete the activity. Or, the assistance of 2 or more helpers is required for the patient to complete the activity. If activity was not attempted, code reason: 7-Patient Refused. 9-Not Applicable-not attempted and the patient did not perform the activity before the current illness, exacerbation or injury. 10-Not Attempted due to Environmental Limitations-(lack of equipment, weather restraints, etc.). 88-Not Attempted due to Medical Conditions or Safety Concerns. Roll Left & Right (QC): 3 Chair/Soo-ry-Lqzhj Xfer(QC): [address] ck sling and then ck to WC Wheelchair Training Does the Pt Use a Wheelchair?: Yes Wheel 50 ft with 2 turns (QC): 3 Wheel 150 ft (QC): 3 Type of Wheelchair: Manual 300', several rest breaks due to fatigue Exercises manually resisted leg press 3 sets of 10 reps Treatments PT performed bed mobility and transfers, WC mobility, LE strengthening, OT performed some quick ADL's in the restroom, assisted with transfers, UE positioning and safety during activity Assessment Current Status: Poor Progress no change in mobility PT Short Term Goals Short Term Goals Time Frame: Feb 17, 2021 Roll Left & Right: 3 Sit to lyin Lying to sitting on side of be: 3 Wheel 50ft w/2 turns: 4 Wheel 150 feet: 4 PT Group Home Goals Group Home Goals PT Group Home Goals Time Frame: Mar 03, 2021 Roll Left & Right (QC): 4 Sit to Lying (QC): 4 Lying-Sitting on Side/Bed(QC): 4 Sit to Stand (QC): 88 Chair/Egg-ti-Vsyfg Xfer(QC): 88 Toilet Transfer (QC): 88 Car Transfer (QC): 88 Does the Patient Walk: No and Walking Goal NOT indicated Walk 10 feet (QC): 88 Walk 50ft with 2 Turns (QC): 88 Walk 150 ft (QC): 88 Walking 10ft on Uneven Surface: 88 1 Step (curb) (QC): 88 4 Steps (QC): 88 12 Steps (QC): 88 Picking up an Object (QC): 88 Wheel 50 feet with 2 turns (QC: 6 Wheel 150 feet: 6 PT Plan Problem List Problem List: Activity Tolerance, Functional Strength, Safety, Balance, Gait, Transfer, Bed Mobility, ROM Treatment/Plan Treatment Plan: Continue Plan of Care Treatment Plan: Bed Mobility, Education, Functional Activity Jorge, Functional Strength, Group Therapy, Gait, Safety, Therapeutic Exercise, Transfers Treatment Duration: Mar 03, 2021 Frequency: At least 5 of 7 days/Wk (IRF) Estimated Hrs Per Day: 1.5 hours per day Patient and/or Family Agrees t: Yes Safety Risks/Education Patient Education: Transfer Techniques, Correct Positioning, W/C Management, Safety Issues Teaching Recipient: Patient Teaching Methods: Demonstration, Discussion Response to Teaching: Reinforcement Needed Time/GCodes Time In: 0800 Time Out: 0900 Total Billed Treatment Time: 60 Total Billed Treatment 1 visit EX 15' FA 45' TARA MCCOY PT Mar 01, 2021 08:53
--- NOTE | 2021-03-01 08:54 | Occupational Ther Daily Note ---
OT Current Status-Daily Note Subjective Patient in bed pre tx, agrees to OT, has no complaints of pain. Will be co- treating with PT due to poor patient mobility, strength, endurance, poor trunk strength and balance, coordinate UE and LE during activity, safety and reduce risk of falls. Appearance Pt left sitting in w/c, all needs within reach at end of session. ADL-Treatment Therapy Code Descriptions/Definitions Functional [place] Measure: 0=Not Assessed/NA 4=Minimal Assistance 1=Total Assistance 5=Supervision or Setup 2=Maximal Assistance 6=Modified [place] 3=Moderate Assistance 7=Complete IndependenceSCALE: Activities may be completed with or without assistive devices. 7-Tbazollssk-rxruutm completes the activity by him/herself with no assistance from a helper. 5-Set-up or Clean-up Assistance-helper sets up or cleans up; patient completes activity. [place] assists only prior to or following the activity. 4-Supervision or Touching Assistance-helper provides verbal cues and/or touching/steadying and/or contact guard assistance as patient completes activity. Assistance may be provided throughout the activity or intermittently. 3-Partial/Moderate Assistance-helper does LESS THAN HALF the effort. [place] lifts, holds or supports trunk or limbs, but provides less than half the effort. 2-Substantial/Maximal Assistance-helper does MORE THAN HALF the effort. [place] lifts or holds trunk or limbs and provides more than half the effort. 0-Wlphmhkuh-dvtmkq does ALL the effort. Patient does none of the effort to complete the activity. Or, the assistance of 2 or more helpers is required for the patient to complete the activity. If activity was not attempted, code reason: 7-Patient Refused. 9-Not Applicable-not attempted and the patient did not perform the activity before the current illness, exacerbation or injury. 10-Not Attempted due to Environmental Limitations-(lack of equipment, weather restraints, etc.). 88-Not Attempted due to Medical Conditions or Safety Concerns. Oral Hygiene (QC): 5 On/Off Footwear: 3 (Assist to lift RLE off floor as pt threads foot into sock aid) Toileting Hygiene (QC): 1 Other Treatment Pt dependent transfer into w/c by use of ck. Grooming tasks performed at w/c level. Extra time for set up, but no assist required. OT removed w/c back/trunk support during task in order to encourage core strengthening and sitting balance. No LOB during task. Pt then propelled w/c throughout unit. He fatigues easily and requires several lengthy sitting rest breaks. With fatigue, pt's strength, sensation and coordination in his LUE dissipates. Rest breaks needed to recover. He completed LE strengthening exercises while in w/c. Assist of second person to maintain LE positioning on mat during exercises. 10x3 with lengthy rest breaks in between sets. Education OT Patient Education: Correct positioning, Energy conservation, Exercise prog tammy, Modified ADL techniques, Progress toward Goal/Update tx plan, Purpose of tx/functional activities, Rehab process, Transfer techniques, W/C management Teaching Recipient: Patient Teaching Methods: Demonstration, Discussion Response to Teaching: Verbalize Understanding, Return Demonstration OT Short Term Goals Short Term Goals Time Frame: Feb 24, 2021 Eatin Oral hygiene: 4 Toileting hygiene: 2 Shower/bathe self: 2 Upper body dressin Lower body dressin Putting on/taking off footwear: 3 OT Skilled Nursing Goals Skilled Nursing Goals Time Frame: Mar 04, 2021 Eating (QC): 6 Oral Hygiene (QC): 5 Toileting Hygiene (QC): 4 Shower/Bathe Self (QC): 3 Upper Body Dressing (QC): 4 Lower Body Dressing (QC): 3 On/Off Footwear (QC): 4 1=Demonstrate adherence to instructed precautions during ADL tasks. 2=Patient will verbalize/demonstrate understanding of assistive devices/modifications for ADL. 3=Patient will improve strength/tolerance for activity to enable patient to perform ADL's. OT Education/Plan Problem List/Assessment Assessment: Decreased Activ Tolerance, Decreased UE Strength, Dependent Transfers, Impaired Coordination, Impaired Funct Balance, Impaired I ADL's, Impaired Self-Care Skills, Restricted Funct UE ROM Discharge Recommendations Plan/Recommendations: Continue POC Treatment Plan/Plan of Care Treatment,Training & Education: Yes Patient would benefit from OT for education, treatment and training to promote independence in ADL's, mobility, safety and/or upper extremity function for ADL's. Plan of Care: ADL Retraining, Functional Mobility, Group Exercise/Act as Ind, UE Funct Exercise/Act, W/C Management Training Treatment Duration: Mar 04, 2021 Frequency: At least 5 of 7 days/Wk (IRF) Estimated Hrs Per Day: 1.5 hours per day Agreement: Yes Rehab Potential: Poor Time/GCodes Start Time: 08:00 Stop Time: 09:00 Total Time Billed (hr/min): 60 Billed Treatment Time 1 visit, ADL x2 (25 min) FA (15 min) EX (20 min) Antonieta Angel OT Mar 01, 2021 08:54
--- NOTE | 2021-03-01 09:03 | PM&R Progress Note ---
Subjective HPI/CC On Admission Date Seen by Provider: Mar 01, 2021 Time Seen by Provider: 09:15 Subjective/Events-last exam 03/01/21: Awaiting NH placement In/out cath required multiple times so will reach out to Dr Welsh BM yesterday Checked meds and labs 02/28/21: Patient doing well Labs reviewed No pain reported Spoke to Dr Kennedy his PCP and updated him on everything about the case and the need to f/u [facility] referral Will fax all records to him at [phone] so he can have all of the records also Incontinence noted BM+ 02/27/21: Patient doing well We will speak to his primary care provider before he is discharged to the half-way to be sure he can follow-up on [facility] referral Bowels moved today Glucose 168 Check meds and labs 02/26/2021: Patient doing well Discussed [facility] referral senior care being arranged in meantime Bowels are moving well 02/25/2021: Miscommunication with [place] in it does not appear that it will be a hospital hospital transfer Remains a [place] lift Son here for family education Denies any new issues 02/24/2021: [facility] had reached out and reviewed the case and it appeared that he was in the midst of being accepted. Patient very excited about the chance to go to [facility] Denies any issues Still a Coleen lift 02/23/2021: Patient doing well Required in and out caths yesterday due to 490 retention Detrol has been started by urology [facility] still in process Bed mobility improved 02/22/2021: Patient doing well Urology started Detrol for incontinence [facility] pending Bowels are moving well Still requiring Coleen lift 02/21/2021: Patient reports no significant concerns Bladder scanning per urology rec No word from [facility] Incontinent of bowel today Labs look good 02/20/2021: Patient has no new complaints today Denies any new issues No pain is reported Incontinence is an issue Fecal incontinence also an issue 02/19/2021: Patient had an uneventful night Denies any new issues Working on bladder retraining Check meds and labs 02/18/2021: Patient doing well Has no complaints Cystoscopy to be done today by urology No pain is reported Bowel evacuation ordered 02/17/2021: Patient doing really well Bowels moved yesterday All records sent to [facility] Has no rectal tone May need a suppository to evacuate bowels and treated like a paraplegic Bottom wound appears to be very superficial on a cushion 02/16/2021: Pt doing well No issues Bowels moved yesterday and fecal incontinence Frausto cath in Cystoscopy by Dr. Welsh on Sunday02/15/2021: Pt doing a little better Frausto required and Dr. Welsh consulted Spot checks of oxygen without CPAP during the night are okay Still a Coleen-lift 02/14/2021: Pt doing well Condom catheter will be attempted Platelet count 108 Wound looks good BP and blood sugar good No pain Bowels are moving 02/13/2021: Patient doing well Has no needs Bowels are moving well No issues Sugars are reviewed 02/12/2021: Patient doing well Incontinent of bowel and bladder a lot Able to move himself and turn himself in bed Check meds and labs Cognitive deficit could preclude independent living 02/11/2021: Patient doing pretty well Dr. Rubio will be consulted Noncompliant with CPAP machine Oxygen was good last night at 90% Wound care consulted Dr. Pyle Sugars good Bowels are a bit loose and he does have fecal incontinence Review of Systems General: Fatigue, Malaise Genitourinary: Retention Neurological: Weakness, Incoordination Objective Exam Vital Signs Vital Signs Date Time Temp Pulse Resp B/P (MAP) Pulse Ox O2 Delivery O2 Flow Rate FiO2 03/01/21 20:21 37.2 64 16 105/52 (69) 93 Room Air Capillary Refill : General Appearance: No Apparent Distress, WD/WN, Chronically ill HEENT: PERRL/EOMI, Normal ENT Inspection, Pharynx Normal Neck: Full Range of Motion, Normal Inspection, Non Tender, Supple, Carotid Bruit Respiratory: Chest Non Tender, Lungs Clear, Normal Breath Sounds, No Accessory Muscle Use, No Respiratory Distress Cardiovascular: Regular Rate, Rhythm, No Edema, No Gallop, No JVD, No Murmur, Normal Peripheral Pulses Gastrointestinal: Normal Bowel Sounds, No Organomegaly, No Pulsatile Mass, Non Tender, Soft Back: Normal Inspection, No CVA Tenderness, No Vertebral Tenderness Extremity: Normal Capillary Refill, Normal Inspection, Normal Range of Motion, Non Tender, No Calf Tenderness, No Pedal Edema Neurologic/Psychiatric: Alert, Oriented x3, Normal Mood/Affect, supply chain intern II-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 FIM Transfers Therapy Code Descriptions/Definitions Functional [place] Measure: 0=Not Assessed/NA 4=Minimal Assistance 1=Total Assistance 5=Supervision or Setup 2=Maximal Assistance 6=Modified [place] 3=Moderate Assistance 7=Complete IndependenceSCALE: Activities may be completed with or without assistive devices. 8-Phwtnbzgjs-wsvfjfb completes the activity by him/herself with no assistance from a helper. 5-Set-up or Clean-up Assistance-helper sets up or cleans up; patient completes activity. [place] assists only prior to or following the activity. 4-Supervision or Touching Assistance-helper provides verbal cues and/or touching/steadying and/or contact guard assistance as patient completes activity. Assistance may be provided throughout the activity or intermittently. 3-Partial/Moderate Assistance-helper does LESS THAN HALF the effort. [place] lifts, holds or supports trunk or limbs, but provides less than half the effort. 2-Substantial/Maximal Assistance-helper does MORE THAN HALF the effort. [place] lifts or holds trunk or limbs and provides more than half the effort. 0-Nanvmvfsu-flmwze does ALL the effort. Patient does none of the effort to complete the activity. Or, the assistance of 2 or more helpers is required for the patient to complete the activity. If activity was not attempted, code reason: 7-Patient Refused. 9-Not Applicable-not attempted and the patient did not perform the activity before the current illness, exacerbation or injury. 10-Not Attempted due to Environmental Limitations-(lack of equipment, weather restraints, etc.). 88-Not Attempted due to Medical Conditions or Safety Concerns. Roll Left to Right (QC): 3 Sit to Lying (QC): 3 Sit to Stand (QC): 1 Chair/Kue-wo-Ihopa Xfer(QC): 1 Car Transfer (QC): 88 Gait Training Does the Patient Walk?: No and Walking Goal NOT indicated Walk 10 feet (QC): 88 Walk 50 ft with 2 Turns(QC): 88 Walk 150 ft (QC): 88 Walking 10ft/uneven surface-QC: 88 Wheelchair Training Does the Pt Use a Wheelchair?: Yes Distance: 100'x2 Wheel 50 ft with 2 turns (QC): 3 Wheel 150 ft (QC): 3 Type of Wheelchair: Manual Stair Training 1 Step (curb) (QC): 88 4 Steps (QC): 88 12 Steps (QC): 88 Balance Picking up an Object (QC): 88 ADL-Treatment Eating (QC): 4 Oral Hygiene (QC): 5 Bathing Location: L Arm, R Arm, L Upper Leg, R Upper Leg, L Lower Leg (including foot), R Lower Leg (including foot), Chest, Abdomen, Buttocks, Perineal Area Shower/Bathe Self (QC): 3 Upper Body Dressing (QC): 1 Lower Body Dressing (QC): 1 On/Off Footwear (QC): 3 Toileting Hygiene (QC): 1 Toilet Transfer (QC): 1 Assessment/Plan Assessment and Plan Assess & Plan/Chief Complaint Assessment: 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 and subsequent neurological deficits Lumbar L4-L5 subarticular recess narrowing B/L Left-sided weakness Hepatic Hemangioma Systolic Heart Failure LFT elevation LBBB Previous hypotension Obesity CAD Dementia/cognitive impairment GERD PUD PVD Diabetic polyneuropathy Progressive weakness High risk of falling Gait disturbance Spasticity T2DM Constipation Edema HTN Paroxysmal A-fib Thrombocytopenia Urinary Retention Status post UTI (resolved) BAM on CPAP Cystoscopy on 02/18/2021 Plan: Aggressive PT, OT, and speech therapy Order basic lab work in the morning Review records, talk to his family members as they are more in tune with his medical condition then the patient himself Neurology follow up Consult Dr. Rubio for A. fib 02/11/2021: Supportive care Dr. Rubio consult Poor memory recall noted 02/12/2021: Incontinence care Aggressive therapy 02/13/2021: Incontinence care Aggressive therapy 02/14/2021: Attempt condom catheter due to incontinence Monitor for retention Dr. Welsh consult 02/15/2021: Appreciate urology management Aggressive therapy Send records to [facility] 02/16/2021: Supportive care Send records to [facility] from [facility] Continue aggressive treatment Cystoscopy tomorrow 02/17/2021: Cystoscopy tomorrow Bowel evacuation 02/18/2021: Cystoscopy Appreciate urology 02/19/2021: Supportive care Urology appreciated 02/20/2021: Supportive care Incontinence care 02/21/2021: Supportive care Incontinence care Appreciate urology 02/22/2021: Detrol for incontinence Appreciate urology Continue aggressive treatment 02/23/2021 Patient will need nursing care at discharge Appreciate urology 02/24/2021: [facility] transfer? Continue aggressive therapy 02/25/2021: senior care admission [facility] still pending 02/26/2021: Await half-way placement [facility] referral 02/27/21: Monitor closely Await NH placement Will speak to Dr Kennedy 02/28/21: Updated PCP Will send records [facility] 03/01/21: Await placement Send records to Dr Kennedy (1) Cervical spinal cord compression (2) Atrial fibrillation (3) Anticoagulation adequate with anticoagulant therapy (4) Urinary retention CARMELLA ESTRADA DO Mar 01, 2021 09:03
[2021-03-01] MEDS: MAGNESIUM OXIDE (MAG-OX)400 MG TAB PO SCH (09:19)
[2021-03-01] MEDS: CALCIUM CARB + VIT D 600 MG (CALCARB + D) TAB PO SCH (09:19)
[2021-03-01] MEDS: FUROSEMIDE 20 MG (LASIX) TAB PO SCH (09:20)
[2021-03-01] MEDS: FAMOTIDINE 20 MG (PEPCID) TABLET PO SCH (09:20)
[2021-03-01] MEDS: OMEGA 3 (FISH OIL) 1000 MG CAP PO SCH ×2 (09:20→20:40)
[2021-03-01] MEDS: meTOprolol SUCCINATE 100 MG (TOPROL XL) TAB PO SCH (09:20)
[2021-03-01] MEDS: APIXABAN 5 MG (ELIQUIS) TABLET PO SCH ×2 (09:20→20:40)
[2021-03-01] MEDS: DOCUSATE SODIUM 100 MG (COLACE) CAP PO SCH ×2 (09:20→19:35)
[2021-03-01] MEDS: LOSARTAN 50 MG (COZAAR) TAB PO SCH (09:20)
[2021-03-01] MEDS: lisINopril 10 MG (PRINIVIL) TABLET PO SCH (09:20)
[2021-03-01] MEDS: FERROUS SULF 325 MG (IRON) TAB PO SCH (09:20)
[2021-03-01] MEDS: polyethylene glycoL POWDER 17 GM (MIRALAX) PACK PO SCH ×2 (09:21→19:32)
[2021-03-01] MEDS: SENNA W/DOCUSATE (SENOKOT S) TABLET PO SCH ×2 (09:21→19:32)
--- NOTE | 2021-03-01 10:35 | Occupational Ther Daily Note ---
OT Current Status-Daily Note Subjective Pt denies pain, agreeable to treatment. Appearance Left sitting in w/c, all needs within reach. ADL-Treatment Therapy Code Descriptions/Definitions Functional [place] Measure: 0=Not Assessed/NA 4=Minimal Assistance 1=Total Assistance 5=Supervision or Setup 2=Maximal Assistance 6=Modified [place] 3=Moderate Assistance 7=Complete IndependenceSCALE: Activities may be completed with or without assistive devices. 7-Vukovehndb-zhyunoz completes the activity by him/herself with no assistance from a helper. 5-Set-up or Clean-up Assistance-helper sets up or cleans up; patient completes activity. [place] assists only prior to or following the activity. 4-Supervision or Touching Assistance-helper provides verbal cues and/or touching/steadying and/or contact guard assistance as patient completes activit y. Assistance may be provided throughout the activity or intermittently. 3-Partial/Moderate Assistance-helper does LESS THAN HALF the effort. [place] lifts, holds or supports trunk or limbs, but provides less than half the effort. 2-Substantial/Maximal Assistance-helper does MORE THAN HALF the effort. [place] lifts or holds trunk or limbs and provides more than half the effort. 6-Wjhfhcxin-kizsce does ALL the effort. Patient does none of the effort to complete the activity. Or, the assistance of 2 or more helpers is required for the patient to complete the activity. If activity was not attempted, code reason: 7-Patient Refused. 9-Not Applicable-not attempted and the patient did not perform the activity before the current illness, exacerbation or injury. 10-Not Attempted due to Environmental Limitations-(lack of equipment, weather restraints, etc.). 88-Not Attempted due to Medical Conditions or Safety Concerns. Other Treatment Pt performed UE exercises with goal to promote increased strength, endurance, coordination, and ROM for adls and transfers. 2 sets each. RUE exercises initially performed with 2# weights, yet after first set he reports pain in shoulder. Weight reduced to 1#. 10 reps each. Pt unable to tolerate any weight on LUE this date. Both sets performed without any resistance. On second set, pt usually fatigues after ~7-8 reps, requires AAROM to finish remaining reps in set. Bicep curl is the only exercise performed with 1# weight. Min cues for speed/control of movement. Education OT Patient Education: Correct positioning, Exercise program, Progress toward Goal/Update tx plan, Purpose of tx/functional activities, Rehab process, Safety issues Teaching Recipient: Patient Teaching Methods: Demonstration, Discussion Response to Teaching: Verbalize Understanding, Return Demonstration, Reinforcement Needed OT Short Term Goals Short Term Goals Time Frame: Feb 24, 2021 Eatin Oral hygiene: 4 Toileting hygiene: 2 Shower/bathe self: 2 Upper body dressin Lower body dressin Putting on/taking off footwear: 3 OT Swatch Cutter Goals Swatch Cutter Goals Time Frame: Mar 04, 2021 Eating (QC): 6 Oral Hygiene (QC): 5 Toileting Hygiene (QC): 4 Shower/Bathe Self (QC): 3 Upper Body Dressing (QC): 4 Lower Body Dressing (QC): 3 On/Off Footwear (QC): 4 1=Demonstrate adherence to instructed precautions during ADL tasks. 2=Patient will verbalize/demonstrate understanding of assistive devices/modifications for ADL. 3=Patient will improve strength/tolerance for activity to enable patient to perform ADL's. OT Education/Plan Problem List/Assessment Assessment: Decreased Activ Tolerance, Decreased Safety Aware, Decreased UE Strength, Dependent Transfers, Impaired Coordination, Impaired Funct Balance, Impaired I ADL's, Impaired Self-Care Skills, Restricted Funct UE ROM Discharge Recommendations Plan/Recommendations: Continue POC Treatment Plan/Plan of Care Treatment,Training & Education: Yes Patient would benefit from OT for education, treatment and training to promote independence in ADL's, mobility, safety and/or upper extremity function for ADL's. Plan of Care: ADL Retraining, Functional Mobility, Group Exercise/Act as Ind, UE Funct Exercise/Act, W/C Management Training Treatment Duration: Mar 04, 2021 Frequency: At least 5 of 7 days/Wk (IRF) Estimated Hrs Per Day: 1.5 hours per day Agreement: Yes Rehab Potential: Poor Time/GCodes Start Time: 10:00 Stop Time: 10:30 Total Time Billed (hr/min): 30 Billed Treatment Time 1 visit, EX x2 Antonieta Angel OT Mar 01, 2021 10:35
--- NOTE | 2021-03-01 10:50 | Progress Note - Urology ---
Progress Note-Urology Progress Notes/Assess & Plan Progress/Assessment & Plan VOIDING BUT HAS MORE PVR. STILL INCONTINENT. DETROL DID NOT HELP. PLAN HOLDMIT AND GET RECORDS FROM [facility] Final Diagnosis URINE RETENTION AND INCONTINENCE YUAN NICHOLSON MD Mar 01, 2021 10:50
--- NOTE | 2021-03-01 11:49 | Physical Therapy Daily Note ---
PT Daily Note-Current Subjective Patient in WC at bedside pre tx, agrees to PT, has no complaints of pain. Appearance Patient in bed post tx with nurse call, phone, tray, all needs met Mental Status Patient Orientation: Person, Place, Situation Transfers SCALE: Activities may be completed with or without assistive devices. 0-Xeznhzsizu-lwlvluu completes the activity by him/herself with no assistance from a helper. 5-Set-up or Clean-up Assistance-helper sets up or cleans up; patient completes activity. [place] assists only prior to or following the activity. 4-Supervision or Touching Assistance-helper provides verbal cues and/or touc adriano/steadying and/or contact guard assistance as patient completes activity. Assistance may be provided throughout the activity or intermittently. 3-Partial/Moderate Assistance-helper does LESS THAN HALF the effort. [place] lifts, holds or supports trunk or limbs, but provides less than half the effort. 2-Substantial/Maximal Assistance-helper does MORE THAN HALF the effort. [place] lifts or holds trunk or limbs and provides more than half the effort. 8-Lctxqehdn-ukozzj does ALL the effort. Patient does none of the effort to complete the activity. Or, the assistance of 2 or more helpers is required for the patient to complete the activity. If activity was not attempted, code reason: 7-Patient Refused. 9-Not Applicable-not attempted and the patient did not perform the activity before the current illness, exacerbation or injury. 10-Not Attempted due to Environmental Limitations-(lack of equipment, weather restraints, etc.). 88-Not Attempted due to Medical Conditions or Safety Concerns. Chair/Hph-as-Lguxd Xfer(QC): 1 ck from WC to bed Exercises Supine Ex: Ankle pumps, Quad Set, Glut sets, Heel Slides, Short Arc Quads, Straight leg raise, Hip abd/add Supine Reps: 20 (AAROM on the left side) Treatments transfers, LE exercise Assessment Current Status: Poor Progress no changes PT Short Term Goals Short Term Goals Time Frame: Feb 17, 2021 Roll Left & Right: 3 Sit to lyin Lying to sitting on side of be: 3 Wheel 50ft w/2 turns: 4 Wheel 150 feet: 4 PT Mcc Goals Mcc Goals PT Shuttle Final Inspector Goals Time Frame: Mar 03, 2021 Roll Left & Right (QC): 4 Sit to Lying (QC): 4 Lying-Sitting on Side/Bed(QC): 4 Sit to Stand (QC): 88 Chair/Hpk-rx-Vivxh Xfer(QC): 88 Toilet Transfer (QC): 88 Car Transfer (QC): 88 Does the Patient Walk: No and Walking Goal NOT indicated Walk 10 feet (QC): 88 Walk 50ft with 2 Turns (QC): 88 Walk 150 ft (QC): 88 Walking 10ft on Uneven Surface: 88 1 Step (curb) (QC): 88 4 Steps (QC): 88 12 Steps (QC): 88 Picking up an Object (QC): 88 Wheel 50 feet with 2 turns (QC: 6 Wheel 150 feet: 6 PT Plan Problem List Problem List: Activity Tolerance, Functional Strength, Safety, Balance, Gait, Transfer, Bed Mobility, ROM Treatment/Plan Treatment Plan: Continue Plan of Care Treatment Plan: Bed Mobility, Education, Functional Activity Jorge, Functional Strength, Group Therapy, Gait, Safety, Therapeutic Exercise, Transfers Treatment Duration: Mar 03, 2021 Frequency: At least 5 of 7 days/Wk (IRF) Estimated Hrs Per Day: 1.5 hours per day Patient and/or Family Agrees t: Yes Safety Risks/Education Patient Education: Transfer Techniques, Correct Positioning, Safety Issues Teaching Recipient: Patient Teaching Methods: Demonstration, Discussion Response to Teaching: Reinforcement Needed Time/GCodes Time In: 1130 Time Out: 1200 Total Billed Treatment Time: 30 Total Billed Treatment 1 visit FA 10' EX 20' TARA MCCOY PT Mar 01, 2021 11:49
[2021-03-01] MEDS: TAMSULOSIN 0.4 MG (FLOMAX) CAP PO SCH (16:58)
[2021-03-01] MEDS: DIGOXIN 0.125 MG (LANOXIN) TAB PO SCH (16:58)
[2021-03-01 20:21] VITALS: BP 105/52
[2021-03-01] MEDS: MELATONIN 3 MG TABLET PO PRN (20:40)
[2021-03-01] MEDS: SIMvastatin 40 MG (ZOCOR) TAB PO SCH (20:40)
[2021-03-02] MEDS: inSUlin ASPART (NovoLOG) 1 UNIT/0.01 ML (CHARGE PER UNIT) SC SCH ×4 (05:31→21:09)
[2021-03-02] MEDS: LEVOTHYROXINE 100 MCG (LEVOTHROID) TAB PO SCH (06:50)
[2021-03-02] MEDS: MULTIVIT W/MINERALS TAB (THERAGRAN M) PO SCH (06:50)
[2021-03-02] MEDS: KCL 10 MEQ TAB (MICRO K) PO SCH (06:50)
[2021-03-02] MEDS: BETHANECHOL 10 MG (URECHOLINE) TAB PO SCH ×4 (06:50→21:09)
[2021-03-02 07:33] VITALS: BP 111/82
[2021-03-02] MEDS: SENNA W/DOCUSATE (SENOKOT S) TABLET PO SCH ×2 (08:23→21:08)
[2021-03-02] MEDS: OMEGA 3 (FISH OIL) 1000 MG CAP PO SCH ×2 (08:23→21:08)
[2021-03-02] MEDS: CALCIUM CARB + VIT D 600 MG (CALCARB + D) TAB PO SCH (08:23)
[2021-03-02] MEDS: lisINopril 10 MG (PRINIVIL) TABLET PO SCH (08:24)
[2021-03-02] MEDS: MAGNESIUM OXIDE (MAG-OX)400 MG TAB PO SCH (08:24)
[2021-03-02] MEDS: FERROUS SULF 325 MG (IRON) TAB PO SCH (08:24)
[2021-03-02] MEDS: APIXABAN 5 MG (ELIQUIS) TABLET PO SCH ×2 (08:24→21:08)
[2021-03-02] MEDS: FAMOTIDINE 20 MG (PEPCID) TABLET PO SCH (08:24)
[2021-03-02] MEDS: FUROSEMIDE 20 MG (LASIX) TAB PO SCH (08:25)
[2021-03-02] MEDS: LOSARTAN 50 MG (COZAAR) TAB PO SCH (08:25)
[2021-03-02] MEDS: meTOprolol SUCCINATE 100 MG (TOPROL XL) TAB PO SCH (08:25)
[2021-03-02] MEDS: DOCUSATE SODIUM 100 MG (COLACE) CAP PO SCH ×2 (08:25→21:09)
[2021-03-02] MEDS: polyethylene glycoL POWDER 17 GM (MIRALAX) PACK PO SCH ×2 (08:27→21:09)
--- NOTE | 2021-03-02 09:01 | PM&R Progress Note ---
Subjective HPI/CC On Admission Date Seen by Provider: Mar 02, 2021 Time Seen by Provider: 09:10 Subjective/Events-last exam 03/02/2021: Patient doing well Holding Detrol due to incontinence Bowels are moving Straight cath required Sent all records to PCP from [id number] skilled care and recommended him to stay in the rehab 03/01/21: Awaiting NH placement In/out cath required multiple times so will reach out to Dr Welsh yesterday Checked meds and labs 02/28/21: Patient doing well Labs reviewed No pain reported Spoke to Dr Kennedy his PCP and updated him on everything about the case and the need to f/u [facility] referral Will fax all records to him at [phone] so he can have all of the records also Incontinence noted + 02/27/21: Patient doing well We will speak to his primary care provider before he is discharged to the [facility] to be sure he can follow-up on [facility] referral Bowels moved today Glucose 168 Check meds and labs 02/26/2021: Patient doing well Discussed [facility] referral [facility] being arranged in meantime Bowels are moving well 02/25/2021: Miscommunication with [place] in it does not appear that it will be a hospital hospital transfer Remains a Coleen lift Son here for family education Denies any new issues 02/24/2021: [facility] had reached out and reviewed the case and it appeared that he was in the midst of being accepted. Patient very excited about the chance to go to [facility] Denies any issues Still a Coleen lift 02/23/2021: Patient doing well Required in and out caths yesterday due to 490 retention Detrol has been started by urology [facility] still in process Bed mobility improved 02/22/2021: Patient doing well Urology started Detrol for incontinence [facility] pending Bowels are moving well Still requiring Coleen lift 02/21/2021: Patient reports no significant concerns Bladder scanning per urology rec No word from [facility] Incontinent of bowel today Labs look good 02/20/2021: Patient has no new complaints today Denies any new issues No pain is reported Incontinence is an issue Fecal incontinence also an issue 02/19/2021: Patient had an uneventful night Denies any new issues Working on bladder retraining Check meds and labs 02/18/2021: Patient doing well Has no complaints Cystoscopy to be done today by urology No pain is reported Bowel evacuation ordered 02/17/2021: Patient doing really well Bowels moved yesterday All records sent to [facility] Has no rectal tone May need a suppository to evacuate bowels and treated like a paraplegic Bottom wound appears to be very superficial on a cushion 02/16/2021: Pt doing well No issues Bowels moved yesterday and fecal incontinence Frausto cath in Cystoscopy by Dr. Welsh on Sunday02/15/2021: Pt doing a little better Frausto required and Dr. Welsh consulted Spot checks of oxygen without CPAP during the night are okay Still a Coleen-lift 02/14/2021: Pt doing well Condom catheter will be attempted Platelet count 108 Wound looks good BP and blood sugar good No pain Bowels are moving 02/13/2021: Patient doing well Has no needs Bowels are moving well No issues Sugars are reviewed 02/12/2021: Patient doing well Incontinent of bowel and bladder a lot Able to move himself and turn himself in bed Check meds and labs Cognitive deficit could preclude independent living 02/11/2021: Patient doing pretty well Dr. Rubio will be consulted Noncompliant with CPAP machine Oxygen was good last night at 90% Wound care consulted Dr. Pyle Sugars good Bowels are a bit loose and he does have fecal incontinence Review of Systems General: Fatigue, Malaise Neurological: Weakness, Incoordination Objective Exam Vital Signs Vital Signs Date Time Temp Pulse Resp B/P (MAP) Pulse Ox O2 Delivery O2 Flow Rate FiO2 03/02/21 22:16 Room Air 03/02/21 20:00 36.4 68 20 117/67 (84) 96 Capillary Refill : General Appearance: No Apparent Distress, WD/WN, Chronically ill HEENT: PERRL/EOMI, Normal ENT Inspection, Pharynx Normal Neck: Full Range of Motion, Normal Inspection, Non Tender, Supple, Carotid Bruit Respiratory: Chest Non Tender, Lungs Clear, Normal Breath Sounds, No Accessory Muscle Use, No Respiratory Distress Cardiovascular: Regular Rate, Rhythm, No Edema, No Gallop, No JVD, No Murmur, Normal Peripheral Pulses Gastrointestinal: Normal Bowel Sounds, No Organomegaly, No Pulsatile Mass, Non Tender, Soft Back: Normal Inspection, No CVA Tenderness, No Vertebral Tenderness Extremity: Normal Capillary Refill, Normal Inspection, Normal Range of Motion, Non Tender, No Calf Tenderness, No Pedal Edema Neurologic/Psychiatric: Alert, Oriented x3, Normal Mood/Affect, etl analyst II-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 FIM Transfers Therapy Code Descriptions/Definitions Functional [place] Measure: 0=Not Assessed/NA 4=Minimal Assistance 1=Total Assistance 5=Supervision or Setup 2=Maximal Assistance 6=Modified [place] 3=Moderate Assistance 7=Complete IndependenceSCALE: Activities may be completed with or without assistive devices. 6-Azbnajjyeu-xnrqvoc completes the activity by him/herself with no assistance from a helper. 5-Set-up or Clean-up Assistance-helper sets up or cleans up; patient completes activity. [place] assists only prior to or following the activity. 4-Supervision or Touching Assistance-helper provides verbal cues and/or touching/steadying and/or contact guard assistance as patient completes activity. Assistance may be provided throughout the activity or intermittently. 3-Partial/Moderate Assistance-helper does LESS THAN HALF the effort. [place] lifts, holds or supports trunk or limbs, but provides less than half the effort. 2-Substantial/Maximal Assistance-helper does MORE THAN HALF the effort. [place] lifts or holds trunk or limbs and provides more than half the effort. 0-Mytejuicp-drexux does ALL the effort. Patient does none of the effort to complete the activity. Or, the assistance of 2 or more helpers is required for the patient to complete the activity. If activity was not attempted, code reason: 7-Patient Refused. 9-Not Applicable-not attempted and the patient did not perform the activity before the current illness, exacerbation or injury. 10-Not Attempted due to Environmental Limitations-(lack of equipment, weather restraints, etc.). 88-Not Attempted due to Medical Conditions or Safety Concerns. Roll Left to Right (QC): 3 Sit to Lying (QC): 3 Sit to Stand (QC): 1 Chair/Wzc-cx-Powmd Xfer(QC): 1 Car Transfer (QC): 88 Gait Training Does the Patient Walk?: No and Walking Goal NOT indicated Walk 10 feet (QC): 88 Walk 50 ft with 2 Turns(QC): 88 Walk 150 ft (QC): 88 Walking 10ft/uneven surface-QC: 88 Wheelchair Training Does the Pt Use a Wheelchair?: Yes Distance: 100'x2 Wheel 50 ft with 2 turns (QC): 3 Wheel 150 ft (QC): 3 Type of Wheelchair: Manual Stair Training 1 Step (curb) (QC): 88 4 Steps (QC): 88 12 Steps (QC): 88 Balance Picking up an Object (QC): 88 ADL-Treatment Eating (QC): 4 Oral Hygiene (QC): 5 Bathing Location: L Arm, R Arm, L Upper Leg, R Upper Leg, L Lower Leg (including foot), R Lower Leg (including foot), Chest, Abdomen, Buttocks, Perineal Area Shower/Bathe Self (QC): 3 Upper Body Dressing (QC): 1 Lower Body Dressing (QC): 1 On/Off Footwear (QC): 3 Toileting Hygiene (QC): 1 Toilet Transfer (QC): 1 Assessment/Plan Assessment and Plan Assess & Plan/Chief Complaint Assessment: 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 and subsequent neurological deficits Lumbar L4-L5 subarticular recess narrowing B/L Left-sided weakness Hepatic Hemangioma Systolic Heart Failure LFT elevation LBBB Previous hypotension Obesity CAD Dementia/cognitive impairment GERD PUD PVD Diabetic polyneuropathy Progressive weakness High risk of falling Gait disturbance Spasticity T2DM Constipation Edema HTN Paroxysmal A-fib Thrombocytopenia Urinary Retention Status post UTI (resolved) BAM on CPAP Cystoscopy on 02/18/2021 Plan: Aggressive PT, OT, and speech therapy Order basic lab work in the morning Review records, talk to his family members as they are more in tune with his medical condition then the patient himself Neurology follow up Consult Dr. Rubio for A. fib 02/11/2021: Supportive care Dr. Rubio consult Poor memory recall noted 02/12/2021: Incontinence care Aggressive therapy 02/13/2021: Incontinence care Aggressive therapy 02/14/2021: Attempt condom catheter due to incontinence Monitor for retention Dr. Welsh consult 02/15/2021: Appreciate urology management Aggressive therapy Send records to [facility] 02/16/2021: Supportive care Send records to [facility] from [facility] Continue aggressive treatment Cystoscopy tomorrow 02/17/2021: Cystoscopy tomorrow Bowel evacuation 02/18/2021: Cystoscopy Appreciate urology 02/19/2021: Supportive care Urology appreciated 02/20/2021: Supportive care Incontinence care 02/21/2021: Supportive care Incontinence care Appreciate urology 02/22/2021: Detrol for incontinence Appreciate urology Continue aggressive treatment 02/23/2021 Patient will need nursing care at discharge Appreciate urology 02/24/2021: [facility] transfer? Continue aggressive therapy 02/25/2021: [facility] admission [facility] still pending 02/26/2021: Await [facility] placement [facility] referral 02/27/21: Monitor closely Await NH placement Will speak to Dr Kennedy 02/28/21: Updated PCP Will send records NHP 03/01/21: Await placement Send records to Dr Kennedy 03/02/2021: Discontinue Detrol Supportive care (1) Cervical spinal cord compression (2) Atrial fibrillation (3) Anticoagulation adequate with anticoagulant therapy (4) Urinary retention CARMELLA ESTRADA DO Mar 02, 2021 09:01
--- NOTE | 2021-03-02 09:43 | Progress Note - Urology ---
Progress Note-Urology Progress Notes/Assess & Plan Progress/Assessment & Plan OFF DETROL LA SINCE YESTERDAY Final Diagnosis RETENTION AND INCONTINENCE YUAN NICHOLSON MD Mar 02, 2021 09:43
--- NOTE | 2021-03-02 09:59 | Physical Therapy Daily Note ---
PT Daily Note-Current Subjective Pt in recliner upon arrival and agrees to co-treat. Pt has no c/o pain but is more weak today. Co-treat d/t pt poor mobility, transfers, weakness, safety, and decrease risk of falls. Mental Status Patient Orientation: Person, Place, Time, Situation Transfers SCALE: Activities may be completed with or without assistive devices. 4-Okdwnmtbce-spzzqfg completes the activity by him/herself with no assistance from a helper. 5-Set-up or Clean-up Assistance-helper sets up or cleans up; patient completes activity. [place] assists only prior to or following the activity. 4-Supervision or Touching Assistance-helper provides verbal cues and/or touching/steadying and/or contact guard assistance as patient completes activity. Assistance may be provided throughout the activity or intermittently. 3-Partial/Moderate Assistance-helper does LESS THAN HALF the effort. [place] lifts, holds or supports trunk or limbs, but provides less than half the effort. 2-Substantial/Maximal Assistance-helper does MORE THAN HALF the effort. [place] lifts or holds trunk or limbs and provides more than half the effort. 5-Vaiqhpamp-iildzj does ALL the effort. Patient does none of the effort to complete the activity. Or, the assistance of 2 or more helpers is required for the patient to complete the activity. If activity was not attempted, code reason: 7-Patient Refused. 9-Not Applicable-not attempted and the patient did not perform the activity before the current illness, exacerbation or injury. 10-Not Attempted due to Environmental Limitations-(lack of equipment, weather restraints, etc.). 88-Not Attempted due to Medical Conditions or Safety Concerns. Roll Left & Right (QC): 3 Chair/Esa-ne-Xmgfk Xfer(QC): 1 Wheelchair Training Does the Pt Use a Wheelchair?: Yes Wheel 50 ft with 2 turns (QC): 4 Type of Wheelchair: Manual 150' with frequent rest breaks. Pt has wide turns, completed one 90 degree turn and one 180 turn. Exercises Supine Ex: Rolling Treatments OT focused on brusing teeth, ADLs, and UE strengthening/potistioning. PT focused on transfers, mobility, and balance. Pt transferred to w/ use of lift. Pt completes ADLs (see OT note) then propels WC 150' on ARU with frequent rest breaks. Pt enters therapy gym and completes dynamic sitting balance activity while using ring arc for UE ROM/strengthening (see OT note). Pt required frequent rest breaks for back support d/t poor core strength. Pt then taken back to room and transferred back to bed with lift machine. Pt rolls to remove sling. Pt remains in bed with all needs met, call light in hand. Assessment Current Status: Poor Progress Pt seems extremely weak today. Pt has no progress in mobility or strengthening PT Short Term Goals Short Term Goals Time Frame: Feb 17, 2021 Roll Left & Right: 3 Sit to lyin Lying to sitting on side of be: 3 Wheel 50ft w/2 turns: 4 Wheel 150 feet: 4 PT Hand Spinner Goals Hand Spinner Goals PT Hand Spinner Goals Time Frame: Mar 03, 2021 Roll Left & Right (QC): 4 Sit to Lying (QC): 4 Lying-Sitting on Side/Bed(QC): 4 Sit to Stand (QC): 88 Chair/Lon-he-Yrvda Xfer(QC): 88 Toilet Transfer (QC): 88 Car Transfer (QC): 88 Does the Patient Walk: No and Walking Goal NOT indicated Walk 10 feet (QC): 88 Walk 50ft with 2 Turns (QC): 88 Walk 150 ft (QC): 88 Walking 10ft on Uneven Surface: 88 1 Step (curb) (QC): 88 4 Steps (QC): 88 12 Steps (QC): 88 Picking up an Object (QC): 88 Wheel 50 feet with 2 turns (QC: 6 Wheel 150 feet: 6 PT Plan Treatment/Plan Treatment Plan: Continue Plan of Care Treatment Plan: Bed Mobility, Education, Functional Activity Jorge, Functional Strength, Group Therapy, Gait, Safety, Therapeutic Exercise, Transfers Treatment Duration: Mar 03, 2021 Frequency: At least 5 of 7 days/Wk (IRF) Estimated Hrs Per Day: 1.5 hours per day Patient and/or Family Agrees t: Yes Time/GCodes Time In: 900 Time Out: 1000 Total Billed Treatment Time: 60 Total Billed Treatment 1, [facility] x2, NM, FA LIEN [place] [employer]ATOR Mar 02, 2021 09:59
--- NOTE | 2021-03-02 10:10 | Occupational Ther Daily Note ---
OT Current Status-Daily Note Subjective Patient in bed pre tx, agrees to OT, has no complaints of pain. Will be co- treating with PT due to poor patient mobility, strength, endurance, poor trunk strength and balance, coordinate UE and LE during activity, safety and reduce risk of falls. Appearance Pt returned to supine in bed per request. All needs within reach at end of session. ADL-Treatment Therapy Code Descriptions/Definitions Functional [place] Measure: 0=Not Assessed/NA 4=Minimal Assistance 1=Total Assistance 5=Supervision or Setup 2=Maximal Assistance 6=Modified [place] 3=Moderate Assistance 7=Complete IndependenceSCALE: Activities may be completed with or without assistive devices. 8-Rnqaqguwvs-hinlsya completes the activity by him/herself with no assistance from a helper. 5-Set-up or Clean-up Assistance-helper sets up or cleans up; patient completes activity. [place] assists only prior to or following the activity. 4-Supervision or Touching Assistance-helper provides verbal cues and/or touching/steadying and/or contact guard assistance as patient completes activity. Assistance may be provided throughout the activity or intermittently. 3-Partial/Moderate Assistance-helper does LESS THAN HALF the effort. [place] lifts, holds or supports trunk or limbs, but provides less than half the effort. 2-Substantial/Maximal Assistance-helper does MORE THAN HALF the effort. [place] lifts or holds trunk or limbs and provides more than half the effort. 3-Qpttlrbbg-rwnwcg does ALL the effort. Patient does none of the effort to complete the activity. Or, the assistance of 2 or more helpers is required for the patient to complete the activity. If activity was not attempted, code reason: 7-Patient Refused. 9-Not Applicable-not attempted and the patient did not perform the activity before the current illness, exacerbation or injury. 10-Not Attempted due to Environmental Limitations-(lack of equipment, weather restraints, etc.). 88-Not Attempted due to Medical Conditions or Safety Concerns. Oral Hygiene (QC): 5 On/Off Footwear: 3 Toileting Hygiene (QC): 1 Pt dependent transfer into w/c by use of ck. Grooming tasks performed at w/c level. Extra effort/time noted this session on squeezing toothpaste secondary to weakness, but pt able to manage without HOHA. OT removed w/c back/trunk support during task in order to encourage core strengthening and sitting balance. No LOB during task. Pt then propelled w/c throughout unit. He fatigues easily and requires several lengthy sitting rest breaks. With fatigue, pt's strength, sensation and coordination in his LUE dissipates. Rest breaks needed to recover. While in gym, pt participated in [employer] with goal to improve BUE strength, coordination, core strength, and sitting balance. Pt unable to tolerate unsupported sitting for >30 seconds during this activity. min-Mod A needed at times to maintain upright posture. At times, Pt attempting to use 1-2 UE support to pull self forward. Pt requires several rest breaks to finish all rings with LUE, min a under elbow as fatigue worsens. Pt having difficult time maintaining pinch throughout arch and requires cues and min HOHA. When performing with RUE, 2# wrist weight added for strengthening component. Pt unable to tolerate (more for sitting balance and not RUE strength) and weight removed. Pt's performance fluctuates daily and is difficult to assess true level of assist. Education OT Patient Education: Correct positioning, Disease process, Energy conservation, Modified ADL techniques, Progress toward Goal/Update tx plan, Purpose of tx/functional activities, Reviewed precautions, Rehab process, Safety issues, Transfer techniques, W/C management Teaching Recipient: Patient Teaching Methods: Demonstration, Discussion Response to Teaching: Verbalize Understanding, Return Demonstration, Reinforcement Needed OT Short Term Goals Short Term Goals Time Frame: Feb 24, 2021 Eatin Oral hygiene: 4 Toileting hygiene: 2 Shower/bathe self: 2 Upper body dressin Lower body dressin Putting on/taking off footwear: 3 OT Dietitian Goals [facility] Goals Time Frame: Mar 04, 2021 Eating (QC): 6 Oral Hygiene (QC): 5 Toileting Hygiene (QC): 4 Shower/Bathe Self (QC): 3 Upper Body Dressing (QC): 4 Lower Body Dressing (QC): 3 On/Off Footwear (QC): 4 1=Demonstrate adherence to instructed precautions during ADL tasks. 2=Patient will verbalize/demonstrate understanding of assistive devices/modifications for ADL. 3=Patient will improve strength/tolerance for activity to enable patient to perform ADL's. OT Education/Plan Problem List/Assessment Assessment: Decreased Activ Tolerance, Decreased Safety Aware, Decreased UE Strength, Dependent Transfers, Impaired Bed Mobility, Impaired Coordination, Impaired Funct Balance, Impaired I ADL's, Impaired Self-Care Skills, Restricted Funct UE ROM Discharge Recommendations Plan/Recommendations: Continue POC Treatment Plan/Plan of Care Treatment,Training & Education: Yes Patient would benefit from OT for education, treatment and training to promote independence in ADL's, mobility, safety and/or upper extremity function for ADL's. Plan of Care: ADL Retraining, Functional Mobility, Group Exercise/Act as Ind, UE Funct Exercise/Act, W/C Management Training Treatment Duration: Mar 04, 2021 Frequency: At least 5 of 7 days/Wk (IRF) Estimated Hrs Per Day: 1.5 hours per day Agreement: Yes Rehab Potential: Poor Time/GCodes Start Time: 09:00 Stop Time: 10:00 Total Time Billed (hr/min): 60 Billed Treatment Time 1 visit ADL (20 min) FA x3 (40 min) Antonieta Angel OT Mar 02, 2021 10:10
--- NOTE | 2021-03-02 12:05 | Occupational Ther Daily Note ---
OT Current Status-Daily Note Subjective Pt denies pain, agreeable to treatment. Appearance Left supine in bed, all needs within reach. ADL-Treatment Therapy Code Descriptions/Definitions Functional Real Measure: 0=Not Assessed/NA 4=Minimal Assistance 1=Total Assistance 5=Supervision or Setup 2=Maximal Assistance 6=Modified Real 3=Moderate Assistance 7=Complete IndependenceSCALE: Activities may be completed with or without assistive devices. 3-Akvkatmfkp-spzvjvu completes the activity by him/herself with no assistance from a helper. 5-Set-up or Clean-up Assistance-helper sets up or cleans up; patient completes activity. [place] assists only prior to or following the activity. 4-Supervision or Touching Assistance-helper provides verbal cues and/or touching/steadying and/or contact guard assistance as patient completes activity . Assistance may be provided throughout the activity or intermittently. 3-Partial/Moderate Assistance-helper does LESS THAN HALF the effort. [place] lifts, holds or supports trunk or limbs, but provides less than half the effort. 2-Substantial/Maximal Assistance-helper does MORE THAN HALF the effort. [place] lifts or holds trunk or limbs and provides more than half the effort. 4-Qptcsqcnc-inipcz does ALL the effort. Patient does none of the effort to complete the activity. Or, the assistance of 2 or more helpers is required for the patient to complete the activity. If activity was not attempted, code reason: 7-Patient Refused. 9-Not Applicable-not attempted and the patient did not perform the activity before the current illness, exacerbation or injury. 10-Not Attempted due to Environmental Limitations-(lack of equipment, weather restraints, etc.). 88-Not Attempted due to Medical Conditions or Safety Concerns. Pt participated in UE exercises with dowel michael and yellow theraband. Michael utilize d as visual aid for coordination between R and L UE. Pt able to perform through full ROM, extra time for L when compared to R. 10 reps at shoulder, 20 reps at elbow, all planes, 2 sets. Rest break needed after each exercise. Pt verbalized having difficulty manipulating and maintaining grasp on fork in L hand when cutting foot this am. OT provided pt with built up hand and demonstr ated use. Ot discussed using this date for future meals and reporting back with therapist next session. Education OT Patient Education: Correct positioning, Exercise program, Progress toward Goal/Update tx plan, Purpose of tx/functional activities, Use of adapted equipment Teaching Recipient: Patient Teaching Methods: Demonstration, Discussion Response to Teaching: Verbalize Understanding, Return Demonstration, Reinforcement Needed OT Short Term Goals Short Term Goals Time Frame: Feb 24, 2021 Eatin Oral hygiene: 4 Toileting hygiene: 2 Shower/bathe self: 2 Upper body dressin Lower body dressin Putting on/taking off footwear: [address] Sql Developer Goals Jail Goals Time Frame: Mar 04, 2021 Eating (QC): 6 Oral Hygiene (QC): 5 Toileting Hygiene (QC): 4 Shower/Bathe Self (QC): 3 Upper Body Dressing (QC): 4 Lower Body Dressing (QC): 3 On/Off Footwear (QC): 4 1=Demonstrate adherence to instructed precautions during ADL tasks. 2=Patient will verbalize/demonstrate understanding of assistive devices/modifications for ADL. 3=Patient will improve strength/tolerance for activity to enable patient to perform ADL's. OT Education/Plan Problem List/Assessment Assessment: Decreased Activ Tolerance, Decreased Safety Aware, Decreased UE Strength, Dependent Transfers, Impaired Bed Mobility, Impaired Coordination, Impaired Funct Balance, Impaired I ADL's, Impaired Self-Care Skills, Restricted Funct UE ROM Discharge Recommendations Plan/Recommendations: Continue POC Treatment Plan/Plan of Care Treatment,Training & Education: Yes Patient would benefit from OT for education, treatment and training to promote independence in ADL's, mobility, safety and/or upper extremity function for ADL's. Plan of Care: ADL Retraining, Functional Mobility, Group Exercise/Act as Ind, UE Funct Exercise/Act, W/C Management Training Treatment Duration: Mar 04, 2021 Frequency: At least 5 of 7 days/Wk (IRF) Estimated Hrs Per Day: 1.5 hours per day Agreement: Yes Rehab Potential: Poor Time/GCodes Start Time: 11:35 Stop Time: 12:05 Total Time Billed (hr/min): 30 Billed Treatment Time 1 visit, EX Antonieta John OT Mar 02, 2021 12:05
--- NOTE | 2021-03-02 13:29 | Physical Therapy Daily Note ---
PT Daily Note-Current Subjective Pt in bed upon arrival and agrees to tx. Pt has no c/o pain at this time. Mental Status Patient Orientation: Person, Place, Time, Situation Transfers SCALE: Activities may be completed with or without assistive devices. 7-Sgarjtfjht-dhrntua completes the activity by him/herself with no assistance from a helper. 5-Set-up or Clean-up Assistance-helper sets up or cleans up; patient completes activity. [place] assists only prior to or following the activity. 4-Supervision or Touching Assistance-helper provides verbal cues and/or touching/steadying and/or contact guard assistance as patient completes activity. Assistance may be provided throughout the activity or intermittently. 3-Partial/Moderate Assistance-helper does LESS THAN HALF the effort. [place] lifts, holds or supports trunk or limbs, but provides less than half the effort. 2-Substantial/Maximal Assistance-helper does MORE THAN HALF the effort. [place] lifts or holds trunk or limbs and provides more than half the effort. 1-Uqcibsang-yovdbf does ALL the effort. Patient does none of the effort to complete the activity. Or, the assistance of 2 or more helpers is required for the patient to complete the activity. If activity was not attempted, code reason: 7-Patient Refused. 9-Not Applicable-not attempted and the patient did not perform the activity before the current illness, exacerbation or injury. 10-Not Attempted due to Environmental Limitations-(lack of equipment, weather restraints, etc.). 88-Not Attempted due to Medical Conditions or Safety Concerns. Roll Left & Right (QC): 3 Exercises Supine Ex: Ankle pumps, Rolling, Heel Slides, Scooting, Straight leg raise, Hip abd/add Supine Reps: 10 Treatments Pt in bed and completes rolling, requiring ModA to roll to R side d/t L sided weakness, to change bed pad. Pt then completes supine ex, AAROM on L LE. Pt able to scoot self up in the bed w/ use of HOB railing w/ BUE and pushing w/ R LE. Pt remains in bed post tx with all needs met and call light in hand. Assessment Current Status: Poor Progress little/no increase in strength/endurance. pt required rest breaks between each ex and after 3 or 4 reps per ex on L LE PT Short Term Goals Short Term Goals Time Frame: Feb 17, 2021 Roll Left & Right: 3 Sit to lyin Lying to sitting on side of be: 3 Wheel 50ft w/2 turns: 4 Wheel 150 feet: 4 PT Care Home Goals Care Home Goals PT Care Home Goals Time Frame: Mar 03, 2021 Roll Left & Right (QC): 4 Sit to Lying (QC): 4 Lying-Sitting on Side/Bed(QC): 4 Sit to Stand (QC): 88 Chair/Byc-ko-Msmnl Xfer(QC): 88 Toilet Transfer (QC): 88 Car Transfer (QC): 88 Does the Patient Walk: No and Walking Goal NOT indicated Walk 10 feet (QC): 88 Walk 50ft with 2 Turns (QC): 88 Walk 150 ft (QC): 88 Walking 10ft on Uneven Surface: 88 1 Step (curb) (QC): 88 4 Steps (QC): 88 12 Steps (QC): 88 Picking up an Object (QC): 88 Wheel 50 feet with 2 turns (QC: 6 Wheel 150 feet: 6 PT Plan Treatment/Plan Treatment Plan: Continue Plan of Care Treatment Plan: Bed Mobility, Education, Functional Activity Jorge, Functional Strength, Group Therapy, Gait, Safety, Therapeutic Exercise, Transfers Treatment Duration: Mar 03, 2021 Frequency: At least 5 of 7 days/Wk (IRF) Estimated Hrs Per Day: 1.5 hours per day Patient and/or Family Agrees t: Yes Time/GCodes Time In: 1300 Time Out: 1330 Total Billed Treatment Time: 30 Total Billed Treatment 1, FA, LIEN BONDS FLAT DRIER Mar 02, 2021 13:28
[2021-03-02] MEDS: DIGOXIN 0.125 MG (LANOXIN) TAB PO SCH (17:00)
[2021-03-02] MEDS: TAMSULOSIN 0.4 MG (FLOMAX) CAP PO SCH (17:00)
[2021-03-02 20:00] VITALS: BP 117/67
[2021-03-02] MEDS: SIMvastatin 40 MG (ZOCOR) TAB PO SCH (21:09)
[2021-03-03] MEDS: inSUlin ASPART (NovoLOG) 1 UNIT/0.01 ML (CHARGE PER UNIT) SC SCH ×4 (05:47→21:47)
[2021-03-03] MEDS: KCL 10 MEQ TAB (MICRO K) PO SCH (06:12)
[2021-03-03] MEDS: BETHANECHOL 10 MG (URECHOLINE) TAB PO SCH ×4 (06:12→21:47)
[2021-03-03] MEDS: LEVOTHYROXINE 100 MCG (LEVOTHROID) TAB PO SCH (06:12)
[2021-03-03] MEDS: MULTIVIT W/MINERALS TAB (THERAGRAN M) PO SCH (06:12)
[2021-03-03 08:00] VITALS: BP 103/64
[2021-03-03] MEDS: FERROUS SULF 325 MG (IRON) TAB PO SCH (08:49)
[2021-03-03] MEDS: APIXABAN 5 MG (ELIQUIS) TABLET PO SCH ×2 (08:49→21:47)
[2021-03-03] MEDS: MAGNESIUM OXIDE (MAG-OX)400 MG TAB PO SCH (08:49)
[2021-03-03] MEDS: CALCIUM CARB + VIT D 600 MG (CALCARB + D) TAB PO SCH (08:49)
[2021-03-03] MEDS: FAMOTIDINE 20 MG (PEPCID) TABLET PO SCH (08:49)
[2021-03-03] MEDS: FUROSEMIDE 20 MG (LASIX) TAB PO SCH (08:49)
[2021-03-03] MEDS: OMEGA 3 (FISH OIL) 1000 MG CAP PO SCH ×2 (08:49→21:47)
[2021-03-03] MEDS: LOSARTAN 50 MG (COZAAR) TAB PO SCH (08:49)
[2021-03-03] MEDS: meTOprolol SUCCINATE 100 MG (TOPROL XL) TAB PO SCH (08:50)
[2021-03-03] MEDS: DOCUSATE SODIUM 100 MG (COLACE) CAP PO SCH ×2 (08:50→21:30)
[2021-03-03] MEDS: lisINopril 10 MG (PRINIVIL) TABLET PO SCH (08:50)
[2021-03-03] MEDS: SENNA W/DOCUSATE (SENOKOT S) TABLET PO SCH ×2 (08:50→21:30)
--- NOTE | 2021-03-03 09:39 | Progress Note - Urology ---
Progress Note-Urology Progress Notes/Assess & Plan Progress/Assessment & Plan VOIDING BETTER OFF DETROL. STILL LEAKS. KEEP SAME Final Diagnosis RETENTION AND INCONTINENCE YUAN NICHOLSON MD Mar 03, 2021 09:39
[2021-03-03] MEDS: polyethylene glycoL POWDER 17 GM (MIRALAX) PACK PO SCH ×2 (09:52→21:30)
--- NOTE | 2021-03-03 09:59 | Physical Therapy Daily Note ---
PT Daily Note-Current Subjective Patient in chair pre tx, agrees to PT, has no complaints of pain. Will be co- treating with OT due to poor patient mobility, strength, endurance, poor sitting balance and core strength, coordinate UE and LE during activity, safety and reduce risk of falls. Appearance Patient in WC at bedside post tx with nurse call, phone, tray, all needs met. Mental Status Patient Orientation: Person, Place, Situation Transfers SCALE: Activities may be completed with or without assistive devices. 2-Tihhtqmjcl-vkpkkob completes the activity by him/herself with no assistance from a helper. 5-Set-up or Clean-up Assistance-helper sets up or cleans up; patient completes activity. [place] assists only prior to or following the activity. 4-Supervision or Touching Assistance-helper provides verbal cues and/or touching/steadying and/or contact guard assistance as patient completes activity. Assistance may be provided throughout the activity or intermittently. 3-Partial/Moderate Assistance-helper does LESS THAN HALF the effort. [place] lifts, holds or supports trunk or limbs, but provides less than half the effort. 2-Substantial/Maximal Assistance-helper does MORE THAN HALF the effort. [place] lifts or holds trunk or limbs and provides more than half the effort. 4-Gyiyykcjz-lfihjc does ALL the effort. Patient does none of the effort to complete the activity. Or, the assistance of 2 or more helpers is required for the patient to complete the activity. If activity was not attempted, code reason: 7-Patient Refused. 9-Not Applicable-not attempted and the patient did not perform the activity before the current illness, exacerbation or injury. 10-Not Attempted due to Environmental Limitations-(lack of equipment, weather restraints, etc.). 88-Not Attempted due to Medical Conditions or Safety Concerns. Roll Left & Right (QC): 3 Chair/Lle-fi-Fosrc Xfer(QC): 1 Patient is in recliner with ck sling under him, he is lifted with ck and it is discovered that the sling is not optimally placed and isn't the kind of sling that is good for positioning patient in a chair. He is hoyered to bed which is right by the chair, and the sling is removed. Patient states he needs to have a BM, bedpan is placed and he is cleaned when done. Patient has rolled about 6 times at this time. After cleaning a different ck sling is placed and he is transferred to and propels . When done he is placed at bedside. Wheelchair Training Does the Pt Use a Wheelchair?: Yes Wheel 50 ft with 2 turns (QC): 3 Type of Wheelchair: Manual 100', declining strength and sitting balance Assessment Current Status: Poor Progress, Regressing declining strength and sitting balance PT Short Term Goals Short Term Goals Time Frame: Feb 17, 2021 Roll Left & Right: 3 Sit to lyin Lying to sitting on side of be: 3 Wheel 50ft w/2 turns: 4 Wheel 150 feet: 4 PT Chcf Goals Chcf Goals PT [place]ch Goals Time Frame: Mar 03, 2021 Roll Left & Right (QC): 4 Sit to Lying (QC): 4 Lying-Sitting on Side/Bed(QC): 4 Sit to Stand (QC): 88 Chair/Kmt-yi-Vinzw Xfer(QC): 88 Toilet Transfer (QC): 88 Car Transfer (QC): 88 Does the Patient Walk: No and Walking Goal NOT indicated Walk 10 feet (QC): 88 Walk 50ft with 2 Turns (QC): 88 Walk 150 ft (QC): 88 Walking 10ft on Uneven Surface: 88 1 Step (curb) (QC): 88 4 Steps (QC): 88 12 Steps (QC): 88 Picking up an Object (QC): 88 Wheel 50 feet with 2 turns (QC: 6 Wheel 150 feet: 6 PT Plan Problem List Problem List: Activity Tolerance, Functional Strength, Safety, Balance, Gait, Transfer, Bed Mobility, ROM Treatment/Plan Treatment Plan: Continue Plan of Care Treatment Plan: Bed Mobility, Education, Functional Activity Jorge, Functional Strength, Group Therapy, Gait, Safety, Therapeutic Exercise, Transfers Treatment Duration: Mar 03, 2021 Frequency: At least 5 of 7 days/Wk (IRF) Estimated Hrs Per Day: 1.5 hours per day Patient and/or Family Agrees t: Yes Safety Risks/Education Patient Education: Transfer Techniques, Correct Positioning, W/C Management, Safety Issues Teaching Recipient: Patient Teaching Methods: Demonstration, Discussion Response to Teaching: Reinforcement Needed Time/GCodes Time In: 0900 Time Out: 1000 Total Billed Treatment Time: 60 Total Billed Treatment 1 visit FA 60' TARA MCCOY PT Mar 03, 2021 09:59
--- NOTE | 2021-03-03 10:11 | PM&R Progress Note ---
Subjective HPI/CC On Admission Date Seen by Provider: Mar 03, 2021 Time Seen by Provider: 10:30 Subjective/Events-last exam 03/03/2021: Patient doing well No straight cath needed Sugars are good Bowels are moving well Check meds and labs 03/02/2021: Patient doing well Holding Detrol due to incontinence Bowels are moving Straight cath required Sent all records to PCP from [facility] and recommended him to stay in the rehab 03/01/21: Awaiting NH placement In/out cath required multiple times so will reach out to Dr Welsh BM yesterday Checked meds and labs 02/28/21: Patient doing well Labs reviewed No pain reported Spoke to Dr Kennedy his PCP and updated him on everything about the case and the need to f/u [facility] referral Will fax all records to him at [phone] so he can have all of the records also Incontinence noted BM+ 02/27/21: Patient doing well We will speak to his primary care provider before he is discharged to the retirement to be sure he can follow-up on [facility] referral Bowels moved today Glucose 168 Check meds and labs 02/26/2021: Patient doing well Discussed [facility] referral longterm being arranged in meantime Bowels are moving well 02/25/2021: Miscommunication with [place] in it does not appear that it will be a hospital hospital transfer Remains a [place]en lift Son here for family education Denies any new issues 02/24/2021: [facility] had reached out and reviewed the case and it appeared that he was in the midst of being accepted. Patient very excited about the chance to go to [facility] Denies any issues Still a Coleen lift 02/23/2021: Patient doing well Required in and out caths yesterday due to 490 retention Detrol has been started by urology [facility] still in process Bed mobility improved 02/22/2021: Patient doing well Urology started Detrol for incontinence [facility] pending Bowels are moving well Still requiring Coleen lift 02/21/2021: Patient reports no significant concerns Bladder scanning per urology rec No word from [facility] Incontinent of bowel today Labs look good 02/20/2021: Patient has no new complaints today Denies any new issues No pain is reported Incontinence is an issue Fecal incontinence also an issue 02/19/2021: Patient had an uneventful night Denies any new issues Working on bladder retraining Check meds and labs 02/18/2021: Patient doing well Has no complaints Cystoscopy to be done today by urology No pain is reported Bowel evacuation ordered 02/17/2021: Patient doing really well Bowels moved yesterday All records sent to [facility] Has no rectal tone May need a suppository to evacuate bowels and treated like a paraplegic Bottom wound appears to be very superficial on a cushion 02/16/2021: Pt doing well No issues Bowels moved yesterday and fecal incontinence Frausto cath in Cystoscopy by Dr. Welsh on Sunday02/15/2021: Pt doing a little better Frausto required and Dr. Welsh consulted Spot checks of oxygen without CPAP during the night are okay Still a Coleen-lift 02/14/2021: Pt doing well Condom catheter will be attempted Platelet count 108 Wound looks good BP and blood sugar good No pain Bowels are moving 02/13/2021: Patient doing well Has no needs Bowels are moving well No issues Sugars are reviewed 02/12/2021: Patient doing well Incontinent of bowel and bladder a lot Able to move himself and turn himself in bed Check meds and labs Cognitive deficit could preclude independent living 02/11/2021: Patient doing pretty well Dr. Rubio will be consulted Noncompliant with CPAP machine Oxygen was good last night at 90% Wound care consulted Dr. Pyle Sugars good Bowels are a bit loose and he does have fecal incontinence Review of Systems General: Fatigue, Malaise Neurological: Weakness, Incoordination Objective Exam Vital Signs Vital Signs Date Time Temp Pulse Resp B/P (MAP) Pulse Ox O2 Delivery O2 Flow Rate FiO2 03/03/21 09:11 Room Air 03/03/21 08:00 36.2 81 16 103/64 (77) 98 Capillary Refill : General Appearance: No Apparent Distress, WD/WN, Chronically ill HEENT: PERRL/EOMI, Normal ENT Inspection, Pharynx Normal Neck: Full Range of Motion, Normal Inspection, Non Tender, Supple, Carotid Bruit Respiratory: Chest Non Tender, Lungs Clear, Normal Breath Sounds, No Accessory Muscle Use, No Respiratory Distress Cardiovascular: Regular Rate, Rhythm, No Edema, No Gallop, No JVD, No Murmur, Normal Peripheral Pulses Gastrointestinal: Normal Bowel Sounds, No Organomegaly, No Pulsatile Mass, Non Tender, Soft Back: Normal Inspection, No CVA Tenderness, No Vertebral Tenderness Extremity: Normal Capillary Refill, Normal Inspection, Normal Range of Motion, Non Tender, No Calf Tenderness, No Pedal Edema Neurologic/Psychiatric: Alert, Oriented x3, Normal 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 FIM Transfers Therapy Code Descriptions/Definitions Functional [place] Measure: 0=Not Assessed/NA 4=Minimal Assistance 1=Total Assistance 5=Supervision or Setup 2=Maximal Assistance 6=Modified [place] 3=Moderate Assistance 7=Complete IndependenceSCALE: Activities may be completed with or without assistive devices. 6-Esqcgqurag-mhkochc completes the activity by him/herself with no assistance from a helper. 5-Set-up or Clean-up Assistance-helper sets up or cleans up; patient completes activity. [place] assists only prior to or following the activity. 4-Supervision or Touching Assistance-helper provides verbal cues and/or touching/steadying and/or contact guard assistance as patient completes activity. Assistance may be provided throughout the activity or intermittently. 3-Partial/Moderate Assistance-helper does LESS THAN HALF the effort. [place] lifts, holds or supports trunk or limbs, but provides less than half the effort. 2-Substantial/Maximal Assistance-helper does MORE THAN HALF the effort. [place] lifts or holds trunk or limbs and provides more than half the effort. 4-Nrxxwbzxm-yzolvn does ALL the effort. Patient does none of the effort to complete the activity. Or, the assistance of 2 or more helpers is required for the patient to complete the activity. If activity was not attempted, code reason: 7-Patient Refused. 9-Not Applicable-not attempted and the patient did not perform the activity before the current illness, exacerbation or injury. 10-Not Attempted due to Environmental Limitations-(lack of equipment, weather restraints, etc.). 88-Not Attempted due to Medical Conditions or Safety Concerns. Roll Left to Right (QC): 3 Sit to Lying (QC): 3 Sit to Stand (QC): 1 Chair/Ntp-vn-Chopc Xfer(QC): 1 Car Transfer (QC): 88 Gait Training Does the Patient Walk?: No and Walking Goal NOT indicated Walk 10 feet (QC): 88 Walk 50 ft with 2 Turns(QC): 88 Walk 150 ft (QC): 88 Walking 10ft/uneven surface-QC: 88 Wheelchair Training Does the Pt Use a Wheelchair?: Yes Distance: 100'x2 Wheel 50 ft with 2 turns (QC): 3 Wheel 150 ft (QC): 3 Type of Wheelchair: Manual Stair Training 1 Step (curb) (QC): 88 4 Steps (QC): 88 12 Steps (QC): 88 Balance Picking up an Object (QC): 88 ADL-Treatment Eating (QC): 4 Oral Hygiene (QC): 5 Bathing Location: L Arm, R Arm, L Upper Leg, R Upper Leg, L Lower Leg (including foot), R Lower Leg (including foot), Chest, Abdomen, Buttocks, Perineal Area Shower/Bathe Self (QC): 3 Upper Body Dressing (QC): 1 Lower Body Dressing (QC): 1 On/Off Footwear (QC): 3 Toileting Hygiene (QC): 1 Toilet Transfer (QC): 1 Assessment/Plan Assessment and Plan Assess & Plan/Chief Complaint Assessment: 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 and subsequent neurological deficits Lumbar L4-L5 subarticular recess narrowing B/L Left-sided weakness Hepatic Hemangioma Systolic Heart Failure LFT elevation LBBB Previous hypotension Obesity CAD Dementia/cognitive impairment GERD PUD PVD Diabetic polyneuropathy Progressive weakness High risk of falling Gait disturbance Spasticity T2DM Constipation Edema HTN Paroxysmal A-fib Thrombocytopenia Urinary Retention Status post UTI (resolved) BAM on CPAP Cystoscopy on 02/18/2021 Plan: Aggressive PT, OT, and speech therapy Order basic lab work in the morning Review records, talk to his family members as they are more in tune with his medical condition then the patient himself Neurology follow up Consult Dr. Rubio for A. fib 02/11/2021: Supportive care Dr. Rubio consult Poor memory recall noted 02/12/2021: Incontinence care Aggressive therapy 02/13/2021: Incontinence care Aggressive therapy 02/14/2021: Attempt condom catheter due to incontinence Monitor for retention Dr. Welsh consult 02/15/2021: Appreciate urology management Aggressive therapy Send records to [facility] 02/16/2021: Supportive care Send records to [facility] from [facility] Continue aggressive treatment Cystoscopy tomorrow 02/17/2021: Cystoscopy tomorrow Bowel evacuation 02/18/2021: Cystoscopy Appreciate urology 02/19/2021: Supportive care Urology appreciated 02/20/2021: Supportive care Incontinence care 02/21/2021: Supportive care Incontinence care Appreciate urology 02/22/2021: Detrol for incontinence Appreciate urology Continue aggressive treatment 02/23/2021 Patient will need nursing care at discharge Appreciate urology 02/24/2021: [facility] transfer? Continue aggressive therapy 02/25/2021: longterm admission [facility] still pending 02/26/2021: Await retirement placement [facility] referral 02/27/21: Monitor closely Await NH placement Will speak to Dr Kennedy 02/28/21: Updated PCP Will send records NHP 03/01/21: Await placement Send records to Dr Kennedy 03/02/2021: Discontinue Detrol Supportive care 03/03/2021: Patient doing well Maintain urology management (1) Cervical spinal cord compression (2) Atrial fibrillation (3) Anticoagulation adequate with anticoagulant therapy (4) Urinary retention CARMELLA ESTRADA DO Mar 03, 2021 10:11
--- NOTE | 2021-03-03 10:34 | Occupational Ther Daily Note ---
OT Current Status-Daily Note Subjective Pt denies pain, agreeable to co-treat with PT. Appearance Pt left sitting in w/c, all needs within reach. ADL-Treatment Therapy Code Descriptions/Definitions Functional [place] Measure: 0=Not Assessed/NA 4=Minimal Assistance 1=Total Assistance 5=Supervision or Setup 2=Maximal Assistance 6=Modified [place] 3=Moderate Assistance 7=Complete IndependenceSCALE: Activities may be completed with or without assistive devices. 8-Sojaarapzq-rpbeuey completes the activity by him/herself with no assistance from a helper. 5-Set-up or Clean-up Assistance-helper sets up or cleans up; patient completes activity. [place] assists only prior to or following the activity. 4-Supervision or Touching Assistance-helper provides verbal cues and/or touching/steadying and/or contact guard assistance as patient completes activity. Assistance may be provided throughout the activity or intermittently. 3-Partial/Moderate Assistance-helper does LESS THAN HALF the effort. [place] lifts, holds or supports trunk or limbs, but provides less than half the effort. 2-Substantial/Maximal Assistance-helper does MORE THAN HALF the effort. [place] lifts or holds trunk or limbs and provides more than half the effort. 9-Zjhfghkbo-qnbbzn does ALL the effort. Patient does none of the effort to complete the activity. Or, the assistance of 2 or more helpers is required for the patient to complete the activity. If activity was not attempted, code reason: 7-Patient Refused. 9-Not Applicable-not attempted and the patient did not perform the activity before the current illness, exacerbation or injury. 10-Not Attempted due to Environmental Limitations-(lack of equipment, weather restraints, etc.). 88-Not Attempted due to Medical Conditions or Safety Concerns. Eating (QC): 5 On/Off Footwear: 3 (Pt uses sock aid. Assist only to lift R foot off floor. ) Toileting Hygiene (QC): 1 Toilet Transfer (QC): 1 Other Treatment Will be co-treating with PT for part of session due to poor patient mobility, strength, endurance, poor sitting balance, core strength, safety and increased fall risk. Pt sitting in chair at therapy arrival. During ck transfer, sling appears to be positioned poorly. Pt hoyered to bed for sling to be readjusted. While in bed, pt reports need to have BM. Bedpan placed by rolling R with cga. Pt unable to fully extract bowels, dependent for guillermo care. Pt appears to be regressing. Unable to propel w/c more than 10 feet this date. Exhibiting increased difficulty with task. Required assist to propel w/c back to room. While sitting in w/c, patient participated in UE exercises. He was able to tolerate 2# on RUE this date. 10x2, in all planes. Pt requires lengthy rest breaks in between each exercise. Initially, OT had pt using dowel odilia but pt appeared to have difficulty maintaining grasp. Upon closer evaluation, it appears as if pt may be experiencing wrist drop. Dowel odilia discontinued. AROM exercises only. Pt only able to tolerate 6-8 reps this date before needing AAROM to finish remaining reps. Education OT Patient Education: Correct positioning, Disease process, Energy conservation, Exercise program, Modified ADL techniques, Progress toward Goal/Update tx plan, Purpose of tx/functional activities, Reviewed precautions, Rehab process, Safety issues, Transfer techniques, Use of adapted equipment, W/C management Teaching Recipient: Patient Teaching Methods: Demonstration, Discussion Response to Teaching: Verbalize Understanding, Return Demonstration, Reinforcement Needed OT Short Term Goals Short Term Goals Time Frame: Feb 24, 2021 Eatin Oral hygiene: 4 Toileting hygiene: 2 Shower/bathe self: 2 Upper body dressin Lower body dressin Putting on/taking off footwear: 3 OT House Carpenter Helper Goals Fpc Goals Time Frame: Mar 04, 2021 Eating (QC): 6 Oral Hygiene (QC): 5 Toileting Hygiene (QC): 4 Shower/Bathe Self (QC): 3 Upper Body Dressing (QC): 4 Lower Body Dressing (QC): 3 On/Off Footwear (QC): 4 1=Demonstrate adherence to instructed precautions during ADL tasks. 2=Patient will verbalize/demonstrate understanding of assistive devices/modifications for ADL. 3=Patient will improve strength/tolerance for activity to enable patient to perform ADL's. OT Education/Plan Problem List/Assessment Assessment: Decreased Activ Tolerance, Decreased Safety Aware, Decreased UE Strength, Dependent Transfers, Impaired Bed Mobility, Impaired Cognition, Impaired Coordination, Impaired Funct Balance, Impaired I ADL's, Impaired Self- Care Skills, Restricted Funct UE ROM Discharge Recommendations Plan/Recommendations: Continue POC Treatment Plan/Plan of Care Treatment,Training & Education: Yes Patient would benefit from OT for education, treatment and training to promote independence in ADL's, mobility, safety and/or upper extremity function for ADL's. Plan of Care: ADL Retraining, Functional Mobility, Group Exercise/Act as Ind, UE Funct Exercise/Act, W/C Management Training Treatment Duration: Mar 04, 2021 Frequency: At least 5 of 7 days/Wk (IRF) Estimated Hrs Per Day: 1.5 hours per day Agreement: Yes Rehab Potential: Poor Time/GCodes Start Time: 09:00 Stop Time: 10:30 Total Time Billed (hr/min): 90 Billed Treatment Time 1 visit, ADL x2 EX x2 FA x2 co treat with PT for 60 min Antonieta Angel OT Mar 03, 2021 10:34
--- NOTE | 2021-03-03 13:25 | Physical Therapy Daily Note ---
PT Daily Note-Current Subjective Patient in WC pre tx, agrees to PT, has no complaints of pain. Appearance Patient in bed post tx with nurse call, phone, tray, all needs met. Mental Status Patient Orientation: Person, Place, Situation Transfers SCALE: Activities may be completed with or without assistive devices. 8-Ezyoohcbdz-twmkoof completes the activity by him/herself with no assistance from a helper. 5-Set-up or Clean-up Assistance-helper sets up or cleans up; patient completes activity. [place] assists only prior to or following the activity. 4-Supervision or Touching Assistance-helper provides verbal cues and/or touching/steadying and/or contact guard assistance as patient completes activity. Assistance may be provided throughout the activity or intermittently. 3-Partial/Moderate Assistance-helper does LESS THAN HALF the effort. [place] lifts, holds or supports trunk or limbs, but provides less than half the effort. 2-Substantial/Maximal Assistance-helper does MORE THAN HALF the effort. [place] lifts or holds trunk or limbs and provides more than half the effort. 0-Mehvphbpz-zubnww does ALL the effort. Patient does none of the effort to complete the activity. Or, the assistance of 2 or more helpers is required for the patient to complete the activity. If activity was not attempted, code reason: 7-Patient Refused. 9-Not Applicable-not attempted and the patient did not perform the activity before the current illness, exacerbation or injury. 10-Not Attempted due to Environmental Limitations-(lack of equipment, weather restraints, etc.). 88-Not Attempted due to Medical Conditions or Safety Concerns. Roll Left & Right (QC): 3 Chair/Dza-lb-Hslue Xfer(QC): 1 Patient is on ck sling, transfer him to bed and then roll from side to side to remove sling. Exercises Supine Ex: Ankle pumps, Quad Set, Glut sets, Heel Slides, Short Arc Quads, Straight leg raise, Hip abd/add Supine Reps: 20 AAROM on the left side with HS, SAQ, hip abd/add, SLR Treatments transfers, bed mobility and rolling, LE ROM Assessment Current Status: Poor Progress, Regressing left leg seems weaker PT Short Term Goals Short Term Goals Time Frame: Feb 17, 2021 Roll Left & Right: 3 Sit to lyin Lying to sitting on side of be: 3 Wheel 50ft w/2 turns: 4 Wheel 150 feet: 4 PT Patrol Deputy Sheriff Goals Group Home Goals PT Group Home Goals Time Frame: Mar 03, 2021 Roll Left & Right (QC): 4 Sit to Lying (QC): 4 Lying-Sitting on Side/Bed(QC): 4 Sit to Stand (QC): 88 Chair/Veu-uh-Yuhbv Xfer(QC): 88 Toilet Transfer (QC): 88 Car Transfer (QC): 88 Does the Patient Walk: No and Walking Goal NOT indicated Walk 10 feet (QC): 88 Walk 50ft with 2 Turns (QC): 88 Walk 150 ft (QC): 88 Walking 10ft on Uneven Surface: 88 1 Step (curb) (QC): 88 4 Steps (QC): 88 12 Steps (QC): 88 Picking up an Object (QC): 88 Wheel 50 feet with 2 turns (QC: 6 Wheel 150 feet: 6 PT Plan Problem List Problem List: Activity Tolerance, Functional Strength, Safety, Balance, Gait, Transfer, Bed Mobility, ROM Treatment/Plan Treatment Plan: Continue Plan of Care Treatment Plan: Bed Mobility, Education, Functional Activity Jorge, Functional Strength, Group Therapy, Gait, Safety, Therapeutic Exercise, Transfers Treatment Duration: Mar 03, 2021 Frequency: At least 5 of 7 days/Wk (IRF) Estimated Hrs Per Day: 1.5 hours per day Patient and/or Family Agrees t: Yes Safety Risks/Education Patient Education: Correct Positioning, Safety Issues Teaching Recipient: Patient Teaching Methods: Demonstration, Discussion Response to Teaching: Reinforcement Needed Time/GCodes Time In: 1300 Time Out: 1330 Total Billed Treatment Time: 30 Total Billed Treatment 1 visit EX 20' FA 10' TARA MCCOY PT Mar 03, 2021 13:25
[2021-03-03] MEDS: DIGOXIN 0.125 MG (LANOXIN) TAB PO SCH (18:15)
[2021-03-03] MEDS: TAMSULOSIN 0.4 MG (FLOMAX) CAP PO SCH (18:15)
[2021-03-03 19:46] VITALS: BP 118/51
[2021-03-03] MEDS: SIMvastatin 40 MG (ZOCOR) TAB PO SCH (21:47)
[2021-03-03] MEDS: MELATONIN 3 MG TABLET PO PRN (21:56)
[2021-03-04] MEDS: inSUlin ASPART (NovoLOG) 1 UNIT/0.01 ML (CHARGE PER UNIT) SC SCH ×4 (06:06→21:20)
--- NOTE | 2021-03-04 06:10 | PM&R Progress Note ---
Subjective HPI/CC On Admission Date Seen by Provider: Mar 04, 2021 Time Seen by Provider: 06:00 Subjective/Events-last exam 03/04/21: Pt doing well No significant complaints per nursing staff Still working with therapy Checked meds and labs 03/03/2021: Patient doing well No straight cath needed Sugars are good Bowels are moving well Check meds and labs 03/02/2021: Patient doing well Holding Detrol due to incontinence Bowels are moving Straight cath required Sent all records to PCP from [id number] skilled care and recommended him to stay in the rehab 03/01/21: Awaiting NH placement In/out cath required multiple times so will reach out to Dr Welsh BM yesterday Checked meds and labs 02/28/21: Patient doing well Labs reviewed No pain reported Spoke to Dr Kennedy his PCP and updated him on everything about the case and the need to f/u [facility] referral Will fax all records to him at [phone] so he can have all of the records also Incontinence noted BM+ 02/27/21: Patient doing well We will speak to his primary care provider before he is discharged to the senior living to be sure he can follow-up on [facility] referral Bowels moved today Glucose 168 Check meds and labs 02/26/2021: Patient doing well Discussed [facility] referral halfway being arranged in meantime Bowels are moving well 02/25/2021: Miscommunication with [place] in it does not appear that it will be a hospital hospital transfer Remains a Coleen lift Son here for family education Denies any new issues 02/24/2021: [facility] had reached out and reviewed the case and it appeared that he was in the midst of being accepted. Patient very excited about the chance to go to [facility] Denies any issues Still a Coleen lift 02/23/2021: Patient doing well Required in and out caths yesterday due to 490 retention Detrol has been started by urology [facility] still in process Bed mobility improved 02/22/2021: Patient doing well Urology started Detrol for incontinence [facility] pending Bowels are moving well Still requiring Coleen lift 02/21/2021: Patient reports no significant concerns Bladder scanning per urology rec No word from [facility] Incontinent of bowel today Labs look good 02/20/2021: Patient has no new complaints today Denies any new issues No pain is reported Incontinence is an issue Fecal incontinence also an issue 02/19/2021: Patient had an uneventful night Denies any new issues Working on bladder retraining Check meds and labs 02/18/2021: Patient doing well Has no complaints Cystoscopy to be done today by urology No pain is reported Bowel evacuation ordered 02/17/2021: Patient doing really well Bowels moved yesterday All records sent to [facility] Has no rectal tone May need a suppository to evacuate bowels and treated like a paraplegic Bottom wound appears to be very superficial on a cushion 02/16/2021: Pt doing well No issues Bowels moved yesterday and fecal incontinence Frausto cath in Cystoscopy by Dr. Welhs on Sunday02/15/2021: Pt doing a little better Frausto required and Dr. Welsh consulted Spot checks of oxygen without CPAP during the night are okay Still a Coleen-lift 02/14/2021: Pt doing well Condom catheter will be attempted Platelet count 108 Wound looks good BP and blood sugar good No pain Bowels are moving 02/13/2021: Patient doing well Has no needs Bowels are moving well No issues Sugars are reviewed 02/12/2021: Patient doing well Incontinent of bowel and bladder a lot Able to move himself and turn himself in bed Check meds and labs Cognitive deficit could preclude independent living 02/11/2021: Patient doing pretty well Dr. Rubio will be consulted Noncompliant with CPAP machine Oxygen was good last night at 90% Wound care consulted Dr. Pyle Sugars good Bowels are a bit loose and he does have fecal incontinence Review of Systems General: Fatigue, Malaise Neurological: Weakness, Incoordination Objective Exam Vital Signs Vital Signs Date Time Temp Pulse Resp B/P (MAP) Pulse Ox O2 Delivery O2 Flow Rate FiO2 03/04/21 20:08 36.4 79 20 111/69 (83) 97 Room Air Capillary Refill : General Appearance: No Apparent Distress, WD/WN, Chronically ill HEENT: PERRL/EOMI, Normal ENT Inspection, Pharynx Normal Neck: Full Range of Motion, Normal Inspection, Non Tender, Supple, Carotid Bruit Respiratory: Chest Non Tender, Lungs Clear, Normal Breath Sounds, No Accessory Muscle Use, No Respiratory Distress Cardiovascular: Regular Rate, Rhythm, No Edema, No Gallop, No JVD, No Murmur, Normal Peripheral Pulses Gastrointestinal: Normal Bowel Sounds, No Organomegaly, No Pulsatile Mass, Non Tender, Soft Back: Normal Inspection, No CVA Tenderness, No Vertebral Tenderness Extremity: Normal Capillary Refill, Normal Inspection, Normal Range of Motion, Non Tender, No Calf Tenderness, No Pedal Edema Neurologic/Psychiatric: Alert, Oriented x3, Normal Mood/Affect, mandrel maker II-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 FIM Transfers Therapy Code Descriptions/Definitions Functional [place] Measure: 0=Not Assessed/NA 4=Minimal Assistance 1=Total Assistance 5=Supervision or Setup 2=Maximal Assistance 6=Modified [place] 3=Moderate Assistance 7=Complete IndependenceSCALE: Activities may be completed with or without assistive devices. 8-Wmefzogmwe-pmymydp completes the activity by him/herself with no assistance from a helper. 5-Set-up or Clean-up Assistance-helper sets up or cleans up; patient completes activity. [place] assists only prior to or following the activity. 4-Supervision or Touching Assistance-helper provides verbal cues and/or touching/steadying and/or contact guard assistance as patient completes activity. Assistance may be provided throughout the activity or intermittently. 3-Partial/Moderate Assistance-helper does LESS THAN HALF the effort. [place] lifts, holds or supports trunk or limbs, but provides less than half the effort. 2-Substantial/Maximal Assistance-helper does MORE THAN HALF the effort. [place] lifts or holds trunk or limbs and provides more than half the effort. 0-Zdzuiowym-iktkkd does ALL the effort. Patient does none of the effort to complete the activity. Or, the assistance of 2 or more helpers is required for the patient to complete the activity. If activity was not attempted, code reason: 7-Patient Refused. 9-Not Applicable-not attempted and the patient did not perform the activity before the current illness, exacerbation or injury. 10-Not Attempted due to Environmental Limitations-(lack of equipment, weather restraints, etc.). 88-Not Attempted due to Medical Conditions or Safety Concerns. Roll Left to Right (QC): 3 Sit to Lying (QC): 3 Sit to Stand (QC): 1 Chair/Mio-lr-Eyfna Xfer(QC): 1 Car Transfer (QC): 88 Gait Training Does the Patient Walk?: No and Walking Goal NOT indicated Walk 10 feet (QC): 88 Walk 50 ft with 2 Turns(QC): 88 Walk 150 ft (QC): 88 Walking 10ft/uneven surface-QC: 88 Wheelchair Training Does the Pt Use a Wheelchair?: Yes Distance: 100'x2 Wheel 50 ft with 2 turns (QC): 3 Wheel 150 ft (QC): 3 Type of Wheelchair: Manual Stair Training 1 Step (curb) (QC): 88 4 Steps (QC): 88 12 Steps (QC): 88 Balance Picking up an Object (QC): 88 ADL-Treatment Eating (QC): 5 Oral Hygiene (QC): 5 Bathing Location: L Arm, R Arm, L Upper Leg, R Upper Leg, L Lower Leg (including foot), R Lower Leg (including foot), Chest, Abdomen, Buttocks, Perineal Area Shower/Bathe Self (QC): 3 Upper Body Dressing (QC): 1 Lower Body Dressing (QC): 1 On/Off Footwear (QC): 3 (Pt uses sock aid. Assist only to lift R foot off floor. 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 and subsequent neurological deficits Lumbar L4-L5 subarticular recess narrowing B/L Left-sided weakness Hepatic Hemangioma Systolic Heart Failure LFT elevation LBBB Previous hypotension Obesity CAD Dementia/cognitive impairment GERD PUD PVD Diabetic polyneuropathy Progressive weakness High risk of falling Gait disturbance Spasticity T2DM Constipation Edema HTN Paroxysmal A-fib Thrombocytopenia Urinary Retention Status post UTI (resolved) BAM on CPAP Cystoscopy on 02/18/2021 Plan: Aggressive PT, OT, and speech therapy Order basic lab work in the morning Review records, talk to his family members as they are more in tune with his medical condition then the patient himself Neurology follow up Consult Dr. Rubio for A. fib 02/11/2021: Supportive care Dr. Rubio consult Poor memory recall noted 02/12/2021: Incontinence care Aggressive therapy 02/13/2021: Incontinence care Aggressive therapy 02/14/2021: Attempt condom catheter due to incontinence Monitor for retention Dr. Welsh consult 02/15/2021: Appreciate urology management Aggressive therapy Send records to [facility] 02/16/2021: Supportive care Send records to [facility] from [facility] Continue aggressive treatment Cystoscopy tomorrow 02/17/2021: Cystoscopy tomorrow Bowel evacuation 02/18/2021: Cystoscopy Appreciate urology 02/19/2021: Supportive care Urology appreciated 02/20/2021: Supportive care Incontinence care 02/21/2021: Supportive care Incontinence care Appreciate urology 02/22/2021: Detrol for incontinence Appreciate urology Continue aggressive treatment 02/23/2021 Patient will need nursing care at discharge Appreciate urology 02/24/2021: [facility] transfer? Continue aggressive therapy 02/25/2021: halfway admission [facility] still pending 02/26/2021: Await senior living placement [facility] referral 02/27/21: Monitor closely Await NH placement Will speak to Dr Kennedy 02/28/21: Updated PCP Will send records NHP 03/01/21: Await placement Send records to Dr Kennedy 03/02/2021: Discontinue Detrol Supportive care 03/03/2021: Patient doing well Maintain urology management 03/04/21: Monitor weakness Sugar management (1) Cervical spinal cord compression (2) Atrial fibrillation (3) Anticoagulation adequate with anticoagulant therapy (4) Urinary retention CARMELLA ESTRADA DO Mar 04, 2021 06:10
[2021-03-04] MEDS: MULTIVIT W/MINERALS TAB (THERAGRAN M) PO SCH (06:15)
[2021-03-04] MEDS: LEVOTHYROXINE 100 MCG (LEVOTHROID) TAB PO SCH (06:15)
[2021-03-04] MEDS: KCL 10 MEQ TAB (MICRO K) PO SCH (06:15)
[2021-03-04] MEDS: BETHANECHOL 10 MG (URECHOLINE) TAB PO SCH ×4 (06:15→21:21)
[2021-03-04 07:33] VITALS: BP 113/57
[2021-03-04] MEDS: OMEGA 3 (FISH OIL) 1000 MG CAP PO SCH ×2 (08:09→21:21)
[2021-03-04] MEDS: meTOprolol SUCCINATE 100 MG (TOPROL XL) TAB PO SCH (08:10)
[2021-03-04] MEDS: CALCIUM CARB + VIT D 600 MG (CALCARB + D) TAB PO SCH (08:11)
[2021-03-04] MEDS: FAMOTIDINE 20 MG (PEPCID) TABLET PO SCH (08:11)
[2021-03-04] MEDS: LOSARTAN 50 MG (COZAAR) TAB PO SCH (08:11)
[2021-03-04] MEDS: MAGNESIUM OXIDE (MAG-OX)400 MG TAB PO SCH (08:12)
[2021-03-04] MEDS: FUROSEMIDE 20 MG (LASIX) TAB PO SCH (08:13)
[2021-03-04] MEDS: FERROUS SULF 325 MG (IRON) TAB PO SCH (08:13)
[2021-03-04] MEDS: APIXABAN 5 MG (ELIQUIS) TABLET PO SCH ×2 (08:13→21:21)
[2021-03-04] MEDS: lisINopril 10 MG (PRINIVIL) TABLET PO SCH (08:13)
[2021-03-04] MEDS: polyethylene glycoL POWDER 17 GM (MIRALAX) PACK PO SCH ×2 (08:16→20:14)
[2021-03-04] MEDS: SENNA W/DOCUSATE (SENOKOT S) TABLET PO SCH ×2 (08:16→20:14)
[2021-03-04] MEDS: DOCUSATE SODIUM 100 MG (COLACE) CAP PO SCH ×2 (08:16→20:14)
--- NOTE | 2021-03-04 10:54 | Physical Therapy Daily Note ---
PT Daily Note-Current Subjective Patient in bed pre tx, agrees to PT, has no complaints of pain, has been working with OT already. Will be co-treating with OT due to poor patient mobility, strength, endurance, coordinate UE and LE during activity, safety and reduce risk of falls, poor sitting balance and trunk strength. Appearance Patient in bed post tx with nurse call, phone, tray, all needs met. Mental Status Patient Orientation: Person, Place, Situation Transfers SCALE: Activities may be completed with or without assistive devices. 0-Pkrstgbjgd-uswbfpz completes the activity by him/herself with no assistance from a helper. 5-Set-up or Clean-up Assistance-helper sets up or cleans up; patient completes activity. [place] assists only prior to or following the activity. 4-Supervision or Touching Assistance-helper provides verbal cues and/or touching/steadying and/or contact guard assistance as patient completes activity. Assistance may be provided throughout the activity or intermittently. 3-Partial/Moderate Assistance-helper does LESS THAN HALF the effort. [place] lifts, holds or supports trunk or limbs, but provides less than half the effort. 2-Substantial/Maximal Assistance-helper does MORE THAN HALF the effort. [place] lifts or holds trunk or limbs and provides more than half the effort. 8-Glrtdgwtm-usmioo does ALL the effort. Patient does none of the effort to complete the activity. Or, the assistance of 2 or more helpers is required for the patient to complete the activity. If activity was not attempted, code reason: 7-Patient Refused. 9-Not Applicable-not attempted and the patient did not perform the activity before the current illness, exacerbation or injury. 10-Not Attempted due to Environmental Limitations-(lack of equipment, weather restraints, etc.). 88-Not Attempted due to Medical Conditions or Safety Concerns. Roll Left & Right (QC): 3 Sit to Lying (QC): 3 Lying to Sitting/Side of Bed(Q: 3 Sit to Stand (QC): 88 Chair/Iwq-oy-Eszhl Xfer(QC): 1 Toilet Transfer (QC): 88 Car Transfer (QC): 88 Patient performs rolling with min assist to the right and SBA to the left, supine <-> sit mod assist, transfers with ck dependent. Initially patient has to roll from side to side several times to get wet sling out from beneath him (he just had a shower), patient needs to have a BM, bedpan is placed and he has a small one, patient rolls again for cleaning and placing new pad and ck sling. Attempted to ck to WC but sling breaks when he is lifted up and he was able to be placed back down on the bed safely. Gait Training Walk 10 feet (QC): 88 Walk 50 ft with 2 Turns(QC): 88 Walk 150 ft (QC): 88 Walking 10ft/uneven surface-QC: 88 Wheelchair Training Does the Pt Use a Wheelchair?: Yes Wheel 50 ft with 2 turns (QC): 3 Wheel 150 ft (QC): 3 Type of Wheelchair: Manual Stair Training 1 Step (curb) (QC): 88 4 Steps (QC): 88 12 Steps (QC): 88 Exercises Supine Ex: Ankle pumps, Quad Set, Glut sets, Heel Slides (AAROM LLE), Short Arc Quads (AAROM LLE), Straight leg raise (AAROM LLE), Hip abd/add (AAROM LLE) Treatments PT worked on rolling, bed mobility, transfers, OT worked on UE positioning and safety during activity, cleaning, transfers Assessment Current Status: Poor Progress no change in mobility PT Short Term Goals Short Term Goals Time Frame: Feb 17, 2021 Roll Left & Right: 3 Sit to lyin Lying to sitting on side of be: 3 Wheel 50ft w/2 turns: 4 Wheel 150 feet: 4 PT Refueling Ramp Attendant Goals Snf Goals PT Snf Goals Time Frame: Mar 03, 2021 Roll Left & Right (QC): 4 Sit to Lying (QC): 4 Lying-Sitting on Side/Bed(QC): 4 Sit to Stand (QC): 88 Chair/Rmi-bx-Bqmrp Xfer(QC): 88 Toilet Transfer (QC): 88 Car Transfer (QC): 88 Does the Patient Walk: No and Walking Goal NOT indicated Walk 10 feet (QC): 88 Walk 50ft with 2 Turns (QC): 88 Walk 150 ft (QC): 88 Walking 10ft on Uneven Surface: 88 1 Step (curb) (QC): 88 4 Steps (QC): 88 12 Steps (QC): 88 Picking up an Object (QC): 88 Wheel 50 feet with 2 turns (QC: 6 Wheel 150 feet: 6 PT Plan Problem List Problem List: Activity Tolerance, Functional Strength, Safety, Balance, Gait, Transfer, Bed Mobility, ROM Treatment/Plan Treatment Plan: Continue Plan of Care Treatment Plan: Bed Mobility, Education, Functional Activity Jorge, Functional Strength, Group Therapy, Gait, Safety, Therapeutic Exercise, Transfers Treatment Duration: Mar 03, 2021 Frequency: At least 5 of 7 days/Wk (IRF) Estimated Hrs Per Day: 1.5 hours per day Patient and/or Family Agrees t: Yes Safety Risks/Education Patient Education: Transfer Techniques, Correct Positioning, W/C Management, Safety Issues Teaching Recipient: Patient Teaching Methods: Demonstration, Discussion Response to Teaching: Reinforcement Needed Time/GCodes Time In: 1000 Time Out: 1100 Total Billed Treatment Time: 60 Total Billed Treatment 1 visit EX 30' FA 30' co-treated from [id number] TARA MCCOY PT Mar 04, 2021 10:54
[2021-03-04 11:20] VITALS: BP 104/56
--- NOTE | 2021-03-04 12:43 | Occupational Ther Daily Note ---
OT Current Status-Daily Note Subjective Pt alert, sitting in recliner. Pt agrees to therapy. No c/o pain at this time. Mental Status/Objective Patient Orientation: Person, Place, Time, Situation ADL-Treatment Pt agrees to shower. Pt transfers with ck lift to large shower chair with cutout. Pt transported to shower using rolling shower chair. Pt requires assist to lean forward when reaching for B LE's. Pt able to cleanse upper body, guillermo area and lower legs (no feet), assist to bath feet then buttocks in bed. Pt able to thread arms through hospital gown. Sitting at sink, pt completes oral care after given supplies and clean up. Transferred pt back to bed to [facility] buttocks and don hospital gown. Pt able to assist rolling side to side to take wet sling out. After therapy, pt left in care of PT all needs met in room. OT/PT co-treat ([id number]), 2 clinicians required for skilled instruction and care to increase mobility, overall strength, bed mobility and dynamic sitting balance, PT focusing on bed mobility, sitting balance while OT focusing on ADLs and functional mobility. Therapy Code Descriptions/Definitions Functional [place] Measure: 0=Not Assessed/NA 4=Minimal Assistance 1=Total Assistance 5=Supervision or Setup 2=Maximal Assistance 6=Modified [place] 3=Moderate Assistance 7=Complete IndependenceSCALE: Activities may be completed with or without assistive devices. 2-Ecixzobnze-hxwobif completes the activity by him/herself with no assistance from a helper. 5-Set-up or Clean-up Assistance-helper sets up or cleans up; patient completes activity. [place] assists only prior to or following the activity. 4-Supervision or Touching Assistance-helper provides verbal cues and/or touching/steadying and/or contact guard assistance as patient completes activity. Assistance may be provided throughout the activity or intermittently. 3-Partial/Moderate Assistance-helper does LESS THAN HALF the effort. [place] lifts, holds or supports trunk or limbs, but provides less than half the effort. 2-Substantial/Maximal Assistance-helper does MORE THAN HALF the effort. [place] lifts or holds trunk or limbs and provides more than half the effort. 0-Spdayldmb-mrkynu does ALL the effort. Patient does none of the effort to complete the activity. Or, the assistance of 2 or more helpers is required for the patient to complete the activity. If activity was not attempted, code reason: 7-Patient Refused. 9-Not Applicable-not attempted and the patient did not perform the activity before the current illness, exacerbation or injury. 10-Not Attempted due to Environmental Limitations-(lack of equipment, weather restraints, etc.). 88-Not Attempted due to Medical Conditions or Safety Concerns. Eating (QC): 6 Oral Hygiene (QC): 5 Shower/Bathe Self (QC): 3 Upper Body Dressing (QC): 3 Lower Body Dressing (QC): 2 (Per clinical judgment, pt completes with max A while in supine.) On/Off Footwear: 2 Toileting Hygiene (QC): 1 (Pt is incontinent) Toilet Transfer (QC): 1 OT Short Term Goals Short Term Goals Time Frame: Feb 24, 2021 Eatin Oral hygiene: 4 Toileting hygiene: 2 Shower/bathe self: 2 Upper body dressin Lower body dressin Putting on/taking off footwear: 3 OT Detention Goals Protection Mgr Goals Time Frame: Mar 04, 2021 Eating (QC): 6 Oral Hygiene (QC): 5 Toileting Hygiene (QC): 4 Shower/Bathe Self (QC): 3 Upper Body Dressing (QC): 4 Lower Body Dressing (QC): 3 On/Off Footwear (QC): 4 1=Demonstrate adherence to instructed precautions during ADL tasks. 2=Patient will verbalize/demonstrate understanding of assistive devices/modifications for ADL. 3=Patient will improve strength/tolerance for activity to enable patient to perform ADL's. OT Education/Plan Problem List/Assessment Assessment: Decreased Activ Tolerance, Decreased UE Strength, Dependent Transfers, Impaired Bed Mobility, Impaired Funct Balance, Impaired Self-Care Skills, Restricted Funct UE ROM Discharge Recommendations Plan/Recommendations: Continue POC Treatment Plan/Plan of Care Patient would benefit from OT for education, treatment and training to promote independence in ADL's, mobility, safety and/or upper extremity function for ADL's. Plan of Care: ADL Retraining, Functional Mobility, Group Exercise/Act as Ind, UE Funct Exercise/Act, W/C Management Training Treatment Duration: Mar 04, 2021 Frequency: At least 5 of 7 days/Wk (IRF) Estimated Hrs Per Day: 1.5 hours per day Agreement: Yes Rehab Potential: Poor Time/GCodes Start Time: 09:30 Stop Time: 10:30 Total Time Billed (hr/min): 60 Billed Treatment Time 1 visit-ADL 4 (60 min) co-treat with PT [id number], individual [id number] BALTAZAR CÁRDENAS Mar 04, 2021 12:43
--- NOTE | 2021-03-04 14:24 | Physical Therapy Rehab Re-Cert ---
PT Re-Certification Form Physical Therapy Treatment Plan: Continue Plan of Care Bed Mobility, Education, Functional Activity Jorge, Functional Strength, Group Therapy, Gait, Safety, Therapeutic Exercise, Transfers Treatment Duration: 3 more weeks Frequency: At least 5 of 7 days/Wk (IRF) Estimated Hrs Per Day: 1.5 hours per day Patient and/or Family Agrees t: Yes Rehab Potential: Guarded Patient has made very little progress, current goals will stay the same PT Short Term Goals Short Term Goals Time Frame: Feb 17, 2021 Roll Left & Right: 3 Sit to lyin Lying to sitting on side of be: 3 Wheel 50ft w/2 turns: 4 Wheel 150 feet: 4 PT Long-Term Goals Long-Term Goals PT Pediatric Nurse Practitioner Goals Time Frame: Mar 03, 2021 Roll Left & Right (QC): 4 Sit to Lying (QC): 4 Lying-Sitting on Side/Bed(QC): 4 Sit to Stand (QC): 88 Chair/Ghq-jt-Leioq Xfer(QC): 88 Toilet Transfer (QC): 88 Car Transfer (QC): 88 Does the Patient Walk: No and Walking Goal NOT indicated Walk 10 feet (QC): 88 Walk 50ft with 2 Turns (QC): 88 Walk 150 ft (QC): 88 Walking 10ft on Uneven Surface: 88 1 Step (curb) (QC): 88 4 Steps (QC): 88 12 Steps (QC): 88 Picking up an Object (QC): 88 Wheel 50 feet with 2 turns (QC: 6 Wheel 150 feet: 6 TARA MCCOY PT Mar 04, 2021 14:24
--- NOTE | 2021-03-04 14:39 | Therapy Group Daily Note ---
Therapy Daily Group Note Patient Education Topic Home Safety, Fall Prevention Exercises LE Seated Exercise, UE Exercise Session Ratio (pt:therapist): 4:1 Goal of Session: Education on ARU Expectations, Home Safety Strategies, UE/LE Strengthing, Safety with Transfers Goal Met for this Session: Yes Pt Benefit of Group: Contributions to Others, F/U Use of Strategies @Home, Increased Functional Safety, Increased Functional Strength, Improved Cognition, Recognition of Peers, Socialization Other/Notes Pt transported via w/c to [facility] for OT/PT group. Group consisted of introductions (name, place living, childhood memory), socialization, B UE seated exercises, educational topics of fall prevention/risk, floor transfers and home safety. Pt introduced self appropriately and actively listened to peers. Pt able to complete B UE/LE seated exercises though fatigued quickly. Pt acknowledged understanding of educational topics by nodding in agreement and focusing on speakers. After session, pt lying in bed with call light/phone in reach. All needs met in room. Start Time: 13:00 Stop Time: 14:15 Total Billed Treatment Time: 75 Total Billed Treatment 1-GRP BALTAZAR CÁRDENAS Mar 04, 2021 14:39
[2021-03-04] MEDS: TAMSULOSIN 0.4 MG (FLOMAX) CAP PO SCH (18:43)
[2021-03-04] MEDS: DIGOXIN 0.125 MG (LANOXIN) TAB PO SCH (18:43)
[2021-03-04 20:08] VITALS: BP 111/69
[2021-03-04] MEDS: SIMvastatin 40 MG (ZOCOR) TAB PO SCH (21:21)
[2021-03-05] MEDS: inSUlin ASPART (NovoLOG) 1 UNIT/0.01 ML (CHARGE PER UNIT) SC SCH ×4 (05:46→20:29)
--- NOTE | 2021-03-05 06:18 | PM&R Progress Note ---
Subjective HPI/CC On Admission Date Seen by Provider: Mar 05, 2021 Time Seen by Provider: 06:15 Subjective/Events-last exam 03/05/2021: Patient doing well No major concerns [facility] appears to be willing to do a video visit We will likely need to do another MRI so will contact Amy at [facility] at [phone] on Sunday in order to order the MRI that they want then will communicate regarding the visit after that 03/04/21: Pt doing well No significant complaints per nursing staff Still working with therapy Checked meds and labs 03/03/2021: Patient doing well No straight cath needed Sugars are good Bowels are moving well Check meds and labs 03/02/2021: Patient doing well Holding Detrol due to incontinence Bowels are moving Straight cath required Sent all records to PCP from [id number] and recommended him to stay in the rehab 03/01/21: Awaiting NH placement In/out cath required multiple times so will reach out to Dr Welsh BM yesterday Checked meds and labs 02/28/21: Patient doing well Labs reviewed No pain reported Spoke to Dr Kennedy his PCP and updated him on everything about the case and the need to f/u [facility] referral Will fax all records to him at [phone] so he can have all of the records also Incontinence noted BM+ 02/27/21: Patient doing well We will speak to his primary care provider before he is discharged to the care home to be sure he can follow-up on [facility] referral Bowels moved today Glucose 168 Check meds and labs 02/26/2021: Patient doing well Discussed [facility] referral residential being arranged in meantime Bowels are moving well 02/25/2021: Miscommunication with [place] in it does not appear that it will be a hospital hospital transfer Remains a Coleen lift Son here for family education Denies any new issues 02/24/2021: [facility] had reached out and reviewed the case and it appeared that he was in the midst of being accepted. Patient very excited about the chance to go to [facility] Denies any issues Still a Coleen lift 02/23/2021: Patient doing well Required in and out caths yesterday due to 490 retention Detrol has been started by urology [facility] still in process Bed mobility improved 02/22/2021: Patient doing well Urology started Detrol for incontinence [facility] pending Bowels are moving well Still requiring Coleen lift 02/21/2021: Patient reports no significant concerns Bladder scanning per urology rec No word from [facility] Incontinent of bowel today Labs look good 02/20/2021: Patient has no new complaints today Denies any new issues No pain is reported Incontinence is an issue Fecal incontinence also an issue 02/19/2021: Patient had an uneventful night Denies any new issues Working on bladder retraining Check meds and labs 02/18/2021: Patient doing well Has no complaints Cystoscopy to be done today by urology No pain is reported Bowel evacuation ordered 02/17/2021: Patient doing really well Bowels moved yesterday All records sent to [facility] Has no rectal tone May need a suppository to evacuate bowels and treated like a paraplegic Bottom wound appears to be very superficial on a cushion 02/16/2021: Pt doing well No issues Bowels moved yesterday and fecal incontinence Frausto cath in Cystoscopy by Dr. Welsh on Sunday02/15/2021: Pt doing a little better Frausto required and Dr. Welsh consulted Spot checks of oxygen without CPAP during the night are okay Still a Coleen-lift 02/14/2021: Pt doing well Condom catheter will be attempted Platelet count 108 Wound looks good BP and blood sugar good No pain Bowels are moving 02/13/2021: Patient doing well Has no needs Bowels are moving well No issues Sugars are reviewed 02/12/2021: Patient doing well Incontinent of bowel and bladder a lot Able to move himself and turn himself in bed Check meds and labs Cognitive deficit could preclude independent living 02/11/2021: Patient doing pretty well Dr. Rubio will be consulted Noncompliant with CPAP machine Oxygen was good last night at 90% Wound care consulted Dr. Pyle Sugars good Bowels are a bit loose and he does have fecal incontinence Review of Systems General: Fatigue, Malaise Neurological: Weakness, Incoordination Objective Exam Vital Signs Vital Signs Date Time Temp Pulse Resp B/P (MAP) Pulse Ox O2 Delivery O2 Flow Rate FiO2 03/05/21 09:00 Room Air 10/23/21 08:20 36.1 96 18 119/63 (81) 96 Capillary Refill : General Appearance: No Apparent Distress, WD/WN, Chronically ill HEENT: PERRL/EOMI, Normal ENT Inspection, Pharynx Normal Neck: Full Range of Motion, Normal Inspection, Non Tender, Supple, Carotid Bruit Respiratory: Chest Non Tender, Lungs Clear, Normal Breath Sounds, No Accessory Muscle Use, No Respiratory Distress Cardiovascular: Regular Rate, Rhythm, No Edema, No Gallop, No JVD, No Murmur, Normal Peripheral Pulses Gastrointestinal: Normal Bowel Sounds, No Organomegaly, No Pulsatile Mass, Non Tender, Soft Back: Normal Inspection, No CVA Tenderness, No Vertebral Tenderness Extremity: Normal Capillary Refill, Normal Inspection, Normal Range of Motion, Non Tender, No Calf Tenderness, No Pedal Edema Neurologic/Psychiatric: Alert, Oriented x3, Normal Mood/Affect, cosmetologist apprentice II-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 FIM Transfers Therapy Code Descriptions/Definitions Functional [place] Measure: 0=Not Assessed/NA 4=Minimal Assistance 1=Total Assistance 5=Supervision or Setup 2=Maximal Assistance 6=Modified [place] 3=Moderate Assistance 7=Complete IndependenceSCALE: Activities may be completed with or without assistive devices. 3-Gbxieysjpp-vakbtxu completes the activity by him/herself with no assistance from a helper. 5-Set-up or Clean-up Assistance-helper sets up or cleans up; patient completes activity. [place] assists only prior to or following the activity. 4-Supervision or Touching Assistance-helper provides verbal cues and/or touching/steadying and/or contact guard assistance as patient completes activity. Assistance may be provided throughout the activity or intermittently. 3-Partial/Moderate Assistance-helper does LESS THAN HALF the effort. [place] lifts, holds or supports trunk or limbs, but provides less than half the effort. 2-Substantial/Maximal Assistance-helper does MORE THAN HALF the effort. [place] lifts or holds trunk or limbs and provides more than half the effort. 6-Fuoudrsmw-kkpqxj does ALL the effort. Patient does none of the effort to complete the activity. Or, the assistance of 2 or more helpers is required for the patient to complete the activity. If activity was not attempted, code reason: 7-Patient Refused. 9-Not Applicable-not attempted and the patient did not perform the activity before the current illness, exacerbation or injury. 10-Not Attempted due to Environmental Limitations-(lack of equipment, weather restraints, etc.). 88-Not Attempted due to Medical Conditions or Safety Concerns. Roll Left to Right (QC): 3 Sit to Lying (QC): 3 Sit to Stand (QC): 88 Chair/Ayo-db-Rlplt Xfer(QC): 1 Car Transfer (QC): 88 Gait Training Does the Patient Walk?: No and Walking Goal NOT indicated Walk 10 feet (QC): 88 Walk 50 ft with 2 Turns(QC): 88 Walk 150 ft (QC): 88 Walking 10ft/uneven surface-QC: 88 Wheelchair Training Does the Pt Use a Wheelchair?: Yes Distance: 100'x2 Wheel 50 ft with 2 turns (QC): 3 Wheel 150 ft (QC): 3 Type of Wheelchair: Manual Stair Training 1 Step (curb) (QC): 88 4 Steps (QC): 88 12 Steps (QC): 88 Balance Picking up an Object (QC): 88 ADL-Treatment Eating (QC): 6 Oral Hygiene (QC): 5 Bathing Location: L Arm, R Arm, L Upper Leg, R Upper Leg, L Lower Leg (including foot), R Lower Leg (including foot), Chest, Abdomen, Buttocks, Perineal Area Shower/Bathe Self (QC): 3 Upper Body Dressing (QC): 3 Lower Body Dressing (QC): 2 (Per clinical judgment, pt completes with max A while in supine.) On/Off Footwear (QC): 2 Toileting Hygiene (QC): 1 (Pt is incontinent) Toilet Transfer (QC): 1 Assessment/Plan Assessment and Plan Assess & Plan/Chief Complaint Assessment: 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 and subsequent neurological deficits Lumbar L4-L5 subarticular recess narrowing B/L Left-sided weakness Hepatic Hemangioma Systolic Heart Failure LFT elevation LBBB Previous hypotension Obesity CAD Dementia/cognitive impairment GERD PUD PVD Diabetic polyneuropathy Progressive weakness High risk of falling Gait disturbance Spasticity T2DM Constipation Edema HTN Paroxysmal A-fib Thrombocytopenia Urinary Retention Status post UTI (resolved) BAM on CPAP Cystoscopy on 02/18/2021 Plan: Aggressive PT, OT, and speech therapy Order basic lab work in the morning Review records, talk to his family members as they are more in tune with his medical condition then the patient himself Neurology follow up Consult Dr. Rubio for A. fib 02/11/2021: Supportive care Dr. Rubio consult Poor memory recall noted 02/12/2021: Incontinence care Aggressive therapy 02/13/2021: Incontinence care Aggressive therapy 02/14/2021: Attempt condom catheter due to incontinence Monitor for retention Dr. Welsh consult 02/15/2021: Appreciate urology management Aggressive therapy Send records to [facility] 02/16/2021: Supportive care Send records to [facility] from [facility] Continue aggressive treatment Cystoscopy tomorrow 02/17/2021: Cystoscopy tomorrow Bowel evacuation 02/18/2021: Cystoscopy Appreciate urology 02/19/2021: Supportive care Urology appreciated 02/20/2021: Supportive care Incontinence care 02/21/2021: Supportive care Incontinence care Appreciate urology 02/22/2021: Detrol for incontinence Appreciate urology Continue aggressive treatment 02/23/2021 Patient will need nursing care at discharge Appreciate urology 02/24/2021: [facility] transfer? Continue aggressive therapy 02/25/2021: residential admission [facility] still pending 02/26/2021: Await care home placement [facility] referral 02/27/21: Monitor closely Await NH placement Will speak to Dr Kennedy 02/28/21: Updated PCP Will send records NHP 03/01/21: Await placement Send records to Dr Kennedy 03/02/2021: Discontinue Detrol Supportive care 03/03/2021: Patient doing well Maintain urology management 03/04/21: Monitor weakness Sugar management 03/05/2021: We will contact [facility] on Sunday for additional MRIs (1) Cervical spinal cord compression (2) Atrial fibrillation (3) Anticoagulation adequate with anticoagulant therapy (4) Urinary retention CARMELLA ESTRADA DO Mar 05, 2021 06:18
[2021-03-05] MEDS: MULTIVIT W/MINERALS TAB (THERAGRAN M) PO SCH (06:39)
[2021-03-05] MEDS: KCL 10 MEQ TAB (MICRO K) PO SCH (06:39)
[2021-03-05] MEDS: BETHANECHOL 10 MG (URECHOLINE) TAB PO SCH ×4 (06:39→21:01)
[2021-03-05] MEDS: LEVOTHYROXINE 100 MCG (LEVOTHROID) TAB PO SCH (06:40)
[2021-03-05 08:20] VITALS: BP 119/63
[2021-03-05] MEDS: SENNA W/DOCUSATE (SENOKOT S) TABLET PO SCH ×2 (08:23→21:01)
[2021-03-05] MEDS: MAGNESIUM OXIDE (MAG-OX)400 MG TAB PO SCH (08:23)
[2021-03-05] MEDS: DOCUSATE SODIUM 100 MG (COLACE) CAP PO SCH ×2 (08:23→21:01)
[2021-03-05] MEDS: CALCIUM CARB + VIT D 600 MG (CALCARB + D) TAB PO SCH (08:23)
[2021-03-05] MEDS: lisINopril 10 MG (PRINIVIL) TABLET PO SCH (08:23)
[2021-03-05] MEDS: FERROUS SULF 325 MG (IRON) TAB PO SCH (08:24)
[2021-03-05] MEDS: OMEGA 3 (FISH OIL) 1000 MG CAP PO SCH ×2 (08:24→21:01)
[2021-03-05] MEDS: meTOprolol SUCCINATE 100 MG (TOPROL XL) TAB PO SCH (08:24)
[2021-03-05] MEDS: FUROSEMIDE 20 MG (LASIX) TAB PO SCH (08:24)
[2021-03-05] MEDS: APIXABAN 5 MG (ELIQUIS) TABLET PO SCH ×2 (08:24→21:01)
[2021-03-05] MEDS: LOSARTAN 50 MG (COZAAR) TAB PO SCH (08:24)
[2021-03-05] MEDS: polyethylene glycoL POWDER 17 GM (MIRALAX) PACK PO SCH ×2 (08:28→20:59)
[2021-03-05] MEDS: FAMOTIDINE 20 MG (PEPCID) TABLET PO SCH (08:28)
--- NOTE | 2021-03-05 10:43 | Physical Therapy Daily Note ---
PT Daily Note-Current Subjective Pt in bed upon arrival and agrees to tx. pt has no c/o pain Mental Status Patient Orientation: Person, Place, Time, Situation Transfers SCALE: Activities may be completed with or without assistive devices. 4-Pzieailfcl-bbcfrnj completes the activity by him/herself with no assistance from a helper. 5-Set-up or Clean-up Assistance-helper sets up or cleans up; patient completes activity. [place] assists only prior to or following the activity. 4-Supervision or Touching Assistance-helper provides verbal cues and/or touching/steadying and/or contact guard assistance as patient completes activity. Assistance may be provided throughout the activity or intermittently. 3-Partial/Moderate Assistance-helper does LESS THAN HALF the effort. [place] lifts, holds or supports trunk or limbs, but provides less than half the effort. 2-Substantial/Maximal Assistance-helper does MORE THAN HALF the effort. [place] lifts or holds trunk or limbs and provides more than half the effort. 9-Qbhqnpjjg-zedqrl does ALL the effort. Patient does none of the effort to complete the activity. Or, the assistance of 2 or more helpers is required for the patient to complete the activity. If activity was not attempted, code reason: 7-Patient Refused. 9-Not Applicable-not attempted and the patient did not perform the activity before the current illness, exacerbation or injury. 10-Not Attempted due to Environmental Limitations-(lack of equipment, weather restraints, etc.). 88-Not Attempted due to Medical Conditions or Safety Concerns. Roll Left & Right (QC): 3 Sit to Lying (QC): 2 Lying to Sitting/Side of Bed(Q: 2 Treatments Pt in bed, attempts supine to sit EOB but unable to advance L LE or bring torso upright. BULLET SWAGING MACHINE OPERATOR A pt in guiding L LE to EOB, as well as sitting pt upright. Pt sits EOB, holding sitting balance 15 minutes, while completing a reaching activity w/ B UE. Pt then sit to supine MaxA, bringing B LE into bed then adjusting torso to be centered in bed. Pt competes bed mobility as BULLET SWAGING MACHINE OPERATOR cleans pt after having a BM and urinary incontinence. Pt scoots to HOB w/ ModA. Pt remains in bed with all needs met and call light in hand. Assessment Current Status: Poor Progress Pt little increase in mobility or balance PT Short Term Goals Short Term Goals Time Frame: Feb 17, 2021 Roll Left & Right: 3 Sit to lyin Lying to sitting on side of be: 3 Wheel 50ft w/2 turns: 4 Wheel 150 feet: 4 PT Custodial Goals Custodial Goals PT Custodial Goals Time Frame: Mar 03, 2021 Roll Left & Right (QC): 4 Sit to Lying (QC): 4 Lying-Sitting on Side/Bed(QC): 4 Sit to Stand (QC): 88 Chair/Trj-wl-Cplwo Xfer(QC): 88 Toilet Transfer (QC): 88 Car Transfer (QC): 88 Does the Patient Walk: No and Walking Goal NOT indicated Walk 10 feet (QC): 88 Walk 50ft with 2 Turns (QC): 88 Walk 150 ft (QC): 88 Walking 10ft on Uneven Surface: 88 1 Step (curb) (QC): 88 4 Steps (QC): 88 12 Steps (QC): 88 Picking up an Object (QC): 88 Wheel 50 feet with 2 turns (QC: 6 Wheel 150 feet: 6 PT Plan Treatment/Plan Treatment Plan: Continue Plan of Care Treatment Plan: Bed Mobility, Education, Functional Activity Jorge, Functional Strength, Group Therapy, Gait, Safety, Therapeutic Exercise, Transfers Treatment Duration: Mar 03, 2021 Frequency: At least 5 of 7 days/Wk (IRF) Estimated Hrs Per Day: 1.5 hours per day Patient and/or Family Agrees t: Yes Time/GCodes Time In: 924 Time Out: 954 Total Billed Treatment Time: 30 Total Billed Treatment 1, FA, LIEN NOVOA BULLET SWAGING MACHINE OPERATOR Mar 05, 2021 10:43
[2021-03-05] MEDS: DIGOXIN 0.125 MG (LANOXIN) TAB PO SCH (17:22)
[2021-03-05] MEDS: TAMSULOSIN 0.4 MG (FLOMAX) CAP PO SCH (17:22)
[2021-03-05 19:56] VITALS: BP 94/55
[2021-03-05] MEDS: SIMvastatin 40 MG (ZOCOR) TAB PO SCH (21:01)
[2021-03-05] MEDS: MELATONIN 3 MG TABLET PO PRN (21:01)
--- NOTE | 2021-03-06 05:57 | PM&R Progress Note ---
Subjective HPI/CC On Admission Date Seen by Provider: Mar 06, 2021 Time Seen by Provider: 06:00 Subjective/Events-last exam 03/06/2021: Patient doing well Sleeping well Spoke to Amy at [facility] as requested by geriatric social worker and I have placed orders for MRI with and without IV contrast of cervical and thoracic spine and will need to have those clouded up into the system from [facility] to review then hopefully video consultation will ensue No other concerns 03/05/2021: Patient doing well No major concerns [facility] appears to be willing to do a video visit We will likely need to do another MRI so will contact Amy at [facility] at [phone] on Sunday in order to order the MRI that they want then will communicate regarding the visit after that 03/04/21: Pt doing well No significant complaints per nursing staff Still working with therapy Checked meds and labs 03/03/2021: Patient doing well No straight cath needed Sugars are good Bowels are moving well Check meds and labs 03/02/2021: Patient doing well Holding Detrol due to incontinence Bowels are moving Straight cath required Sent all records to PCP from [facility] [id number] denied skilled care and recommended him to stay in the rehab 03/01/21: Awaiting NH placement In/out cath required multiple times so will reach out to Dr Blaise AG yesterday Checked meds and labs 02/28/21: Patient doing well Labs reviewed No pain reported Spoke to Dr Kennedy his PCP and updated him on everything about the case and the need to f/u [facility] referral Will fax all records to him at [phone] so he can have all of the records also Incontinence noted BM+ 02/27/21: Patient doing well We will speak to his primary care provider before he is discharged to the custodial to be sure he can follow-up on [facility] referral Bowels moved today Glucose 168 Check meds and labs 02/26/2021: Patient doing well Discussed [facility] referral intermediate being arranged in meantime Bowels are moving well 02/25/2021: Miscommunication with [facility] in it does not appear that it will be a hospital hospital transfer Remains a Coleen lift Son here for family education Denies any new issues 02/24/2021: [facility] had reached out and reviewed the case and it appeared that he was in the midst of being accepted. Patient very excited about the chance to go to [facility] Denies any issues Still a Coleen lift 02/23/2021: Patient doing well Required in and out caths yesterday due to 490 retention Detrol has been started by urology [facility] still in process Bed mobility improved 02/22/2021: Patient doing well Urology started Detrol for incontinence [facility] pending Bowels are moving well Still requiring Coleen lift 02/21/2021: Patient reports no significant concerns Bladder scanning per urology rec No word from [facility] Incontinent of bowel today Labs look good 02/20/2021: Patient has no new complaints today Denies any new issues No pain is reported Incontinence is an issue Fecal incontinence also an issue 02/19/2021: Patient had an uneventful night Denies any new issues Working on bladder retraining Check meds and labs 02/18/2021: Patient doing well Has no complaints Cystoscopy to be done today by urology No pain is reported Bowel evacuation ordered 02/17/2021: Patient doing really well Bowels moved yesterday All records sent to [facility] Has no rectal tone May need a suppository to evacuate bowels and treated like a paraplegic Bottom wound appears to be very superficial on a cushion 02/16/2021: Pt doing well No issues Bowels moved yesterday and fecal incontinence Frausto cath in Cystoscopy by Dr. Welsh on Sunday02/15/2021: Pt doing a little better Frausto required and Dr. Welsh consulted Spot checks of oxygen without CPAP during the night are okay Still a Coleen-lift 02/14/2021: Pt doing well Condom catheter will be attempted Platelet count 108 Wound looks good BP and blood sugar good No pain Bowels are moving 02/13/2021: Patient doing well Has no needs Bowels are moving well No issues Sugars are reviewed 02/12/2021: Patient doing well Incontinent of bowel and bladder a lot Able to move himself and turn himself in bed Check meds and labs Cognitive deficit could preclude independent living 02/11/2021: Patient doing pretty well Dr. Rubio will be consulted Noncompliant with CPAP machine Oxygen was good last night at 90% Wound care consulted Dr. Pyle Sugars good Bowels are a bit loose and he does have fecal incontinence Review of Systems General: Fatigue, Malaise Neurological: Weakness, Incoordination Objective Exam Vital Signs Vital Signs Date Time Temp Pulse Resp B/P (MAP) Pulse Ox O2 Delivery O2 Flow Rate FiO2 03/06/21 09:13 Room Air 03/06/21 08:43 97 127/59 (81) 03/06/21 07:07 36.3 20 93 Capillary Refill : General Appearance: No Apparent Distress, WD/WN, Chronically ill HEENT: PERRL/EOMI, Normal ENT Inspection, Pharynx Normal Neck: Full Range of Motion, Normal Inspection, Non Tender, Supple, Carotid Bruit Respiratory: Chest Non Tender, Lungs Clear, Normal Breath Sounds, No Accessory Muscle Use, No Respiratory Distress Cardiovascular: Regular Rate, Rhythm, No Edema, No Gallop, No JVD, No Murmur, Normal Peripheral Pulses Gastrointestinal: Normal Bowel Sounds, No Organomegaly, No Pulsatile Mass, Non Tender, Soft Back: Normal Inspection, No CVA Tenderness, No Vertebral Tenderness Extremity: Normal Capillary Refill, Normal Inspection, Normal Range of Motion, Non Tender, No Calf Tenderness, No Pedal Edema Neurologic/Psychiatric: Alert, Oriented x3, Normal Mood/Affect, ski patrol officer II-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 FIM Transfers Therapy Code Descriptions/Definitions Functional [place] Measure: 0=Not Assessed/NA 4=Minimal Assistance 1=Total Assistance 5=Supervision or Setup 2=Maximal Assistance 6=Modified [place] 3=Moderate Assistance 7=Complete IndependenceSCALE: Activities may be completed with or without assistive devices. 0-Owqjpkvrso-ydseyeq completes the activity by him/herself with no assistance from a helper. 5-Set-up or Clean-up Assistance-helper sets up or cleans up; patient completes activity. [place] assists only prior to or following the activity. 4-Supervision or Touching Assistance-helper provides verbal cues and/or touching/steadying and/or contact guard assistance as patient completes activity. Assistance may be provided throughout the activity or intermittently. 3-Partial/Moderate Assistance-helper does LESS THAN HALF the effort. [place] lifts, holds or supports trunk or limbs, but provides less than half the effort. 2-Substantial/Maximal Assistance-helper does MORE THAN HALF the effort. [place] lifts or holds trunk or limbs and provides more than half the effort. 3-Yeibgwnkf-fnvlog does ALL the effort. Patient does none of the effort to complete the activity. Or, the assistance of 2 or more helpers is required for the patient to complete the activity. If activity was not attempted, code reason: 7-Patient Refused. 9-Not Applicable-not attempted and the patient did not perform the activity before the current illness, exacerbation or injury. 10-Not Attempted due to Environmental Limitations-(lack of equipment, weather restraints, etc.). 88-Not Attempted due to Medical Conditions or Safety Concerns. Roll Left to Right (QC): 3 Sit to Lying (QC): 2 Sit to Stand (QC): 88 Chair/Oyn-qf-Jiwfv Xfer(QC): 1 Car Transfer (QC): 88 Gait Training Does the Patient Walk?: No and Walking Goal NOT indicated Walk 10 feet (QC): 88 Walk 50 ft with 2 Turns(QC): 88 Walk 150 ft (QC): 88 Walking 10ft/uneven surface-QC: 88 Wheelchair Training Does the Pt Use a Wheelchair?: Yes Distance: 100'x2 Wheel 50 ft with 2 turns (QC): 3 Wheel 150 ft (QC): 3 Type of Wheelchair: Manual Stair Training 1 Step (curb) (QC): 88 4 Steps (QC): 88 12 Steps (QC): 88 Balance Picking up an Object (QC): 88 ADL-Treatment Eating (QC): 6 Oral Hygiene (QC): 5 Bathing Location: L Arm, R Arm, L Upper Leg, R Upper Leg, L Lower Leg (including foot), R Lower Leg (including foot), Chest, Abdomen, Buttocks, Perineal Area Shower/Bathe Self (QC): 3 Upper Body Dressing (QC): 3 Lower Body Dressing (QC): 2 (Per clinical judgment, pt completes with max A while in supine.) On/Off Footwear (QC): 2 Toileting Hygiene (QC): 1 (Pt is incontinent) Toilet Transfer (QC): 1 Assessment/Plan Assessment and Plan Assess & Plan/Chief Complaint Assessment: 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 and subsequent neurological deficits Lumbar L4-L5 subarticular recess narrowing B/L Left-sided weakness Hepatic Hemangioma Systolic Heart Failure LFT elevation LBBB Previous hypotension Obesity CAD Dementia/cognitive impairment GERD PUD PVD Diabetic polyneuropathy Progressive weakness High risk of falling Gait disturbance Spasticity T2DM Constipation Edema HTN Paroxysmal A-fib Thrombocytopenia Urinary Retention Status post UTI (resolved) BAM on CPAP Cystoscopy on 02/18/2021 Plan: Aggressive PT, OT, and speech therapy Order basic lab work in the morning Review records, talk to his family members as they are more in tune with his medical condition then the patient himself Neurology follow up Consult Dr. Rubio for A. fib 02/11/2021: Supportive care Dr. Rubio consult Poor memory recall noted 02/12/2021: Incontinence care Aggressive therapy 02/13/2021: Incontinence care Aggressive therapy 02/14/2021: Attempt condom catheter due to incontinence Monitor for retention Dr. Welsh consult 02/15/2021: Appreciate urology management Aggressive therapy Send records to [facility] 02/16/2021: Supportive care Send records to [facility] from [facility] Continue aggressive treatment Cystoscopy tomorrow 02/17/2021: Cystoscopy tomorrow Bowel evacuation 02/18/2021: Cystoscopy Appreciate urology 02/19/2021: Supportive care Urology appreciated 02/20/2021: Supportive care Incontinence care 02/21/2021: Supportive care Incontinence care Appreciate urology 02/22/2021: Detrol for incontinence Appreciate urology Continue aggressive treatment 02/23/2021 Patient will need nursing care at discharge Appreciate urology 02/24/2021: [facility] transfer? Continue aggressive therapy 02/25/2021: intermediate admission [facility] still pending 02/26/2021: Await custodial placement [facility] referral 02/27/21: Monitor closely Await NH placement Will speak to Dr Kennedy 02/28/21: Updated PCP Will send records NHP 03/01/21: Await placement Send records to Dr Kennedy 03/02/2021: Discontinue Detrol Supportive care 03/03/2021: Patient doing well Maintain urology management 03/04/21: Monitor weakness Sugar management 03/05/2021: We will contact [facility] on Sunday for additional MRIs 03/06/2021: Ordered MRI with and without IV contrast of cervical and thoracic spine per [facility] request that will be done tomorrow (1) Cervical spinal cord compression (2) Atrial fibrillation (3) Anticoagulation adequate with anticoagulant therapy (4) Urinary retention CARMELLA ESTRADA DO Mar 06, 2021 05:57
[2021-03-06] MEDS: inSUlin ASPART (NovoLOG) 1 UNIT/0.01 ML (CHARGE PER UNIT) SC SCH ×4 (06:38→20:12)
[2021-03-06] MEDS: BETHANECHOL 10 MG (URECHOLINE) TAB PO SCH ×4 (06:38→20:58)
[2021-03-06] MEDS: LEVOTHYROXINE 100 MCG (LEVOTHROID) TAB PO SCH (06:38)
[2021-03-06] MEDS: MULTIVIT W/MINERALS TAB (THERAGRAN M) PO SCH (06:38)
[2021-03-06] MEDS: KCL 10 MEQ TAB (MICRO K) PO SCH (06:38)
[2021-03-06 07:07] VITALS: BP 123/77
[2021-03-06] MEDS: polyethylene glycoL POWDER 17 GM (MIRALAX) PACK PO SCH ×2 (08:38→19:41)
[2021-03-06] MEDS: OMEGA 3 (FISH OIL) 1000 MG CAP PO SCH ×2 (08:39→20:58)
[2021-03-06] MEDS: MAGNESIUM OXIDE (MAG-OX)400 MG TAB PO SCH (08:40)
[2021-03-06] MEDS: lisINopril 10 MG (PRINIVIL) TABLET PO SCH (08:40)
[2021-03-06] MEDS: CALCIUM CARB + VIT D 600 MG (CALCARB + D) TAB PO SCH (08:40)
[2021-03-06] MEDS: SENNA W/DOCUSATE (SENOKOT S) TABLET PO SCH ×2 (08:41→20:56)
[2021-03-06] MEDS: APIXABAN 5 MG (ELIQUIS) TABLET PO SCH ×2 (08:41→20:58)
[2021-03-06] MEDS: FAMOTIDINE 20 MG (PEPCID) TABLET PO SCH (08:41)
[2021-03-06] MEDS: meTOprolol SUCCINATE 100 MG (TOPROL XL) TAB PO SCH (08:41)
[2021-03-06] MEDS: DOCUSATE SODIUM 100 MG (COLACE) CAP PO SCH ×2 (08:41→20:56)
[2021-03-06] MEDS: LOSARTAN 50 MG (COZAAR) TAB PO SCH (08:41)
[2021-03-06] MEDS: FUROSEMIDE 20 MG (LASIX) TAB PO SCH (08:41)
[2021-03-06] MEDS: FERROUS SULF 325 MG (IRON) TAB PO SCH (08:41)
[2021-03-06 08:43] VITALS: BP 127/59
[2021-03-06] MEDS: DIGOXIN 0.125 MG (LANOXIN) TAB PO SCH (17:01)
[2021-03-06] MEDS: TAMSULOSIN 0.4 MG (FLOMAX) CAP PO SCH (17:02)
[2021-03-06 19:00] VITALS: BP 106/59
[2021-03-06] MEDS: SIMvastatin 40 MG (ZOCOR) TAB PO SCH (20:58)
[2021-03-06] MEDS: MELATONIN 3 MG TABLET PO PRN (20:58)
[2021-03-07] MEDS: inSUlin ASPART (NovoLOG) 1 UNIT/0.01 ML (CHARGE PER UNIT) SC SCH ×4 (05:16→20:37)
[2021-03-07 06:40] LABS: BASOPHILS # (AUTO) 0.1 10^3/uL (0.0-0.1); BASOPHILS % (AUTO) 1 % (0-10); EOSINOPHILS # (AUTO) 0.1 10^3/uL (0.0-0.3); EOSINOPHILS % (AUTO) 1 % (0-10); HEMATOCRIT 41 % (40-54); HEMOGLOBIN 13.9 g/dL (13.3-17.7); LYMPHOCYTES # (AUTO) 1.6 10^3/uL (1.0-4.0); LYMPHOCYTES % (AUTO) 25 % (12-44); MEAN CORPUSCULAR HEMOGLOBIN 33 pg (25-34); MEAN CORPUSCULAR HGB CONC 34 g/dL (32-36); MEAN CORPUSCULAR VOLUME 95 fL (80-99); MEAN PLATELET VOLUME 11.9 fL (9.0-12.2); MONOCYTES # (AUTO) 0.9 10^3/uL (0.0-1.0); MONOCYTES % (AUTO) 14 % (0-12); NEUTROPHILS # (AUTO) 3.6 10^3/uL (1.8-7.8); NEUTROPHILS % (AUTO) 58 % (42-75); PLATELET COUNT 184 10^3/uL (130-400); WHITE BLOOD COUNT 6.1 10^3/uL (4.3-11.0)
[2021-03-07] MEDS: MULTIVIT W/MINERALS TAB (THERAGRAN M) PO SCH (06:48)
[2021-03-07] MEDS: BETHANECHOL 10 MG (URECHOLINE) TAB PO SCH ×4 (06:48→20:38)
[2021-03-07] MEDS: LEVOTHYROXINE 100 MCG (LEVOTHROID) TAB PO SCH (06:48)
[2021-03-07] MEDS: KCL 10 MEQ TAB (MICRO K) PO SCH (06:48)
[2021-03-07 06:53] LABS: ALBUMIN 2.9 GM/DL (3.2-4.5); POTASSIUM 3.8 MMOL/L (3.6-5.0)
[2021-03-07 06:55] LABS: TOTAL PROTEIN 5.5 GM/DL (6.4-8.2)
[2021-03-07 06:57] LABS: BILIRUBIN,TOTAL 0.8 MG/DL (0.1-1.0)
[2021-03-07 06:59] LABS: CREATININE SERUM 0.98 MG/DL (0.60-1.30)
[2021-03-07 07:34] VITALS: BP 113/63
[2021-03-07] MEDS: FERROUS SULF 325 MG (IRON) TAB PO SCH (08:00)
[2021-03-07] MEDS: MAGNESIUM OXIDE (MAG-OX)400 MG TAB PO SCH (08:00)
[2021-03-07] MEDS: FUROSEMIDE 20 MG (LASIX) TAB PO SCH (08:01)
[2021-03-07] MEDS: meTOprolol SUCCINATE 100 MG (TOPROL XL) TAB PO SCH (08:01)
[2021-03-07] MEDS: LOSARTAN 50 MG (COZAAR) TAB PO SCH (08:01)
[2021-03-07] MEDS: SENNA W/DOCUSATE (SENOKOT S) TABLET PO SCH ×2 (08:01→20:37)
[2021-03-07] MEDS: APIXABAN 5 MG (ELIQUIS) TABLET PO SCH ×2 (08:01→20:37)
[2021-03-07] MEDS: lisINopril 10 MG (PRINIVIL) TABLET PO SCH (08:01)
[2021-03-07] MEDS: FAMOTIDINE 20 MG (PEPCID) TABLET PO SCH (08:01)
[2021-03-07] MEDS: OMEGA 3 (FISH OIL) 1000 MG CAP PO SCH ×2 (08:01→20:38)
[2021-03-07] MEDS: DOCUSATE SODIUM 100 MG (COLACE) CAP PO SCH ×2 (08:01→20:37)
[2021-03-07] MEDS: CALCIUM CARB + VIT D 600 MG (CALCARB + D) TAB PO SCH (08:02)
[2021-03-07] MEDS: polyethylene glycoL POWDER 17 GM (MIRALAX) PACK PO SCH ×2 (09:29→20:38)
--- NOTE | 2021-03-07 09:32 | Progress Note - Urology ---
Progress Note-Urology Progress Notes/Assess & Plan Progress/Assessment & Plan ESSENTIALLY SAME. NO RECORDS FROM SURGERY AT [facility] YET. Final Diagnosis RETENTION AND INCONTINENCE YUAN NICHOLSON MD Mar 07, 2021 09:32
--- NOTE | 2021-03-07 10:28 | PM&R Progress Note ---
Subjective HPI/CC On Admission Date Seen by Provider: Mar 07, 2021 Time Seen by Provider: 10:15 Subjective/Events-last exam 03/07/21: Pt doing well Subtle change in his overall demeanor, he appears to be a bit more frightened and debilitated MRI has just come to bring him down for cervical and thoracic spine with and without IV contrast for [facility] to Review No BM for the last couple of days so will initiate laxatives Labs okay overall 03/06/2021: Patient doing well Sleeping well Spoke to Amy at [facility] as requested by child welfare social worker and I have placed orders for MRI with and without IV contrast of cervical and thoracic spine and will need to have those clouded up into the system from [place] to review then hopefully video consultation will ensue No other concerns 03/05/2021: Patient doing well No major concerns [facility] appears to be willing to do a video visit We will likely need to do another MRI so will contact Amy at [facility] at [phone] on Sunday in order to order the MRI that they want then will communicate regarding the visit after that 03/04/21: Pt doing well No significant complaints per nursing staff Still working with therapy Checked meds and labs 03/03/2021: Patient doing well No straight cath needed Sugars are good Bowels are moving well Check meds and labs 03/02/2021: Patient doing well Holding Detrol due to incontinence Bowels are moving Straight cath required Sent all records to PCP from [id number] skilled care and recommended him to stay in the rehab 03/01/21: Awaiting NH placement In/out cath required multiple times so will reach out to Dr Welsh BM yesterday Checked meds and labs 02/28/21: Patient doing well Labs reviewed No pain reported Spoke to Dr Kennedy his PCP and updated him on everything about the case and the need to f/u [facility] referral Will fax all records to him at [phone] so he can have all of the records also Incontinence noted BM+ 02/27/21: Patient doing well We will speak to his primary care provider before he is discharged to the intermediate to be sure he can follow-up on [facility] referral Bowels moved today Glucose 168 Check meds and labs 02/26/2021: Patient doing well Discussed [facility] referral long term being arranged in meantime Bowels are moving well 02/25/2021: Miscommunication with [place] in it does not appear that it will be a hospital hospital transfer Remains a Coleen lift Son here for family education Denies any new issues 02/24/2021: [facility] had reached out and reviewed the case and it appeared that he was in the midst of being accepted. Patient very excited about the chance to go to [facility] Denies any issues Still a Coleen lift 02/23/2021: Patient doing well Required in and out caths yesterday due to 490 retention Detrol has been started by urology [facility] still in process Bed mobility improved 02/22/2021: Patient doing well Urology started Detrol for incontinence [facility] pending Bowels are moving well Still requiring Coleen lift 02/21/2021: Patient reports no significant concerns Bladder scanning per urology rec No word from [facility] Incontinent of bowel today Labs look good 02/20/2021: Patient has no new complaints today Denies any new issues No pain is reported Incontinence is an issue Fecal incontinence also an issue 02/19/2021: Patient had an uneventful night Denies any new issues Working on bladder retraining Check meds and labs 02/18/2021: Patient doing well Has no complaints Cystoscopy to be done today by urology No pain is reported Bowel evacuation ordered 02/17/2021: Patient doing really well Bowels moved yesterday All records sent to [facility] Has no rectal tone May need a suppository to evacuate bowels and treated like a paraplegic Bottom wound appears to be very superficial on a cushion 02/16/2021: Pt doing well No issues Bowels moved yesterday and fecal incontinence Frausto cath in Cystoscopy by Dr. Welsh on Sunday02/15/2021: Pt doing a little better Frausto required and Dr. Welsh consulted Spot checks of oxygen without CPAP during the night are okay Still a Coleen-lift 02/14/2021: Pt doing well Condom catheter will be attempted Platelet count 108 Wound looks good BP and blood sugar good No pain Bowels are moving 02/13/2021: Patient doing well Has no needs Bowels are moving well No issues Sugars are reviewed 02/12/2021: Patient doing well Incontinent of bowel and bladder a lot Able to move himself and turn himself in bed Check meds and labs Cognitive deficit could preclude independent living 02/11/2021: Patient doing pretty well Dr. Rubio will be consulted Noncompliant with CPAP machine Oxygen was good last night at 90% Wound care consulted Dr. Pyle Sugars good Bowels are a bit loose and he does have fecal incontinence Review of Systems General: Fatigue, Malaise Neurological: Weakness, Incoordination Objective Exam Vital Signs Vital Signs Date Time Temp Pulse Resp B/P (MAP) Pulse Ox O2 Delivery O2 Flow Rate FiO2 03/07/21 20:50 Room Air 03/07/21 19:41 36.2 63 20 90/57 (68) 94 Capillary Refill : General Appearance: No Apparent Distress, WD/WN, Chronically ill HEENT: PERRL/EOMI, Normal ENT Inspection, Pharynx Normal Neck: Full Range of Motion, Normal Inspection, Non Tender, Supple, Carotid Bruit Respiratory: Chest Non Tender, Lungs Clear, Normal Breath Sounds, No Accessory Muscle Use, No Respiratory Distress Cardiovascular: Regular Rate, Rhythm, No Edema, No Gallop, No JVD, No Murmur, Normal Peripheral Pulses Gastrointestinal: Normal Bowel Sounds, No Organomegaly, No Pulsatile Mass, Non Tender, Soft Back: Normal Inspection, No CVA Tenderness, No Vertebral Tenderness Extremity: Normal Capillary Refill, Normal Inspection, Normal Range of Motion, Non Tender, No Calf Tenderness, No Pedal Edema Neurologic/Psychiatric: Alert, Oriented x3, Normal Mood/Affect, materials tech II-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 FIM Transfers Therapy Code Descriptions/Definitions Functional [place] Measure: 0=Not Assessed/NA 4=Minimal Assistance 1=Total Assistance 5=Supervision or Setup 2=Maximal Assistance 6=Modified [place] 3=Moderate Assistance 7=Complete IndependenceSCALE: Activities may be completed with or without assistive devices. 3-Puvnluzbfe-xhblart completes the activity by him/herself with no assistance from a helper. 5-Set-up or Clean-up Assistance-helper sets up or cleans up; patient completes activity. [place] assists only prior to or following the activity. 4-Supervision or Touching Assistance-helper provides verbal cues and/or touching/steadying and/or contact guard assistance as patient completes activity. Assistance may be provided throughout the activity or intermittently. 3-Partial/Moderate Assistance-helper does LESS THAN HALF the effort. [place] lifts, holds or supports trunk or limbs, but provides less than half the effort. 2-Substantial/Maximal Assistance-helper does MORE THAN HALF the effort. [place] lifts or holds trunk or limbs and provides more than half the effort. 4-Htkmcmfkm-ujxzoi does ALL the effort. Patient does none of the effort to complete the activity. Or, the assistance of 2 or more helpers is required for the patient to complete the activity. If activity was not attempted, code reason: 7-Patient Refused. 9-Not Applicable-not attempted and the patient did not perform the activity before the current illness, exacerbation or injury. 10-Not Attempted due to Environmental Limitations-(lack of equipment, weather restraints, etc.). 88-Not Attempted due to Medical Conditions or Safety Concerns. Roll Left to Right (QC): 3 Sit to Lying (QC): 2 Sit to Stand (QC): 88 Chair/Cqf-ux-Vbgjj Xfer(QC): 1 Car Transfer (QC): 88 Gait Training Does the Patient Walk?: No and Walking Goal NOT indicated Walk 10 feet (QC): 88 Walk 50 ft with 2 Turns(QC): 88 Walk 150 ft (QC): 88 Walking 10ft/uneven surface-QC: 88 Wheelchair Training Does the Pt Use a Wheelchair?: Yes Distance: 100'x2 Wheel 50 ft with 2 turns (QC): 3 Wheel 150 ft (QC): 3 Type of Wheelchair: Manual Stair Training 1 Step (curb) (QC): 88 4 Steps (QC): 88 12 Steps (QC): 88 Balance Picking up an Object (QC): 88 ADL-Treatment Eating (QC): 6 Oral Hygiene (QC): 5 Bathing Location: L Arm, R Arm, L Upper Leg, R Upper Leg, L Lower Leg (including foot), R Lower Leg (including foot), Chest, Abdomen, Buttocks, Perineal Area Shower/Bathe Self (QC): 3 Upper Body Dressing (QC): 3 Lower Body Dressing (QC): 2 (Per clinical judgment, pt completes with max A while in supine.) On/Off Footwear (QC): 2 Toileting Hygiene (QC): 1 (Pt is incontinent) Toilet Transfer (QC): 1 Assessment/Plan Assessment and Plan Assess & Plan/Chief Complaint Assessment: 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 and subsequent neurological deficits Lumbar L4-L5 subarticular recess narrowing B/L Left-sided weakness Hepatic Hemangioma Systolic Heart Failure LFT elevation LBBB Previous hypotension Obesity CAD Dementia/cognitive impairment GERD PUD PVD Diabetic polyneuropathy Progressive weakness High risk of falling Gait disturbance Spasticity T2DM Constipation Edema HTN Paroxysmal A-fib Thrombocytopenia Urinary Retention Status post UTI (resolved) BAM on CPAP Cystoscopy on 02/18/2021 Plan: Aggressive PT, OT, and speech therapy Order basic lab work in the morning Review records, talk to his family members as they are more in tune with his medical condition then the patient himself Neurology follow up Consult Dr. Rubio for A. fib 02/11/2021: Supportive care Dr. Rubio consult Poor memory recall noted 02/12/2021: Incontinence care Aggressive therapy 02/13/2021: Incontinence care Aggressive therapy 02/14/2021: Attempt condom catheter due to incontinence Monitor for retention Dr. Welsh consult 02/15/2021: Appreciate urology management Aggressive therapy Send records to [facility] 02/16/2021: Supportive care Send records to [facility] from [facility] Continue aggressive treatment Cystoscopy tomorrow 02/17/2021: Cystoscopy tomorrow Bowel evacuation 02/18/2021: Cystoscopy Appreciate urology 02/19/2021: Supportive care Urology appreciated 02/20/2021: Supportive care Incontinence care 02/21/2021: Supportive care Incontinence care Appreciate urology 02/22/2021: Detrol for incontinence Appreciate urology Continue aggressive treatment 02/23/2021 Patient will need nursing care at discharge Appreciate urology 02/24/2021: [facility] transfer? Continue aggressive therapy 02/25/2021: long term admission [facility] still pending 02/26/2021: Await intermediate placement [facility] referral 02/27/21: Monitor closely Await NH placement Will speak to Dr Kennedy 02/28/21: Updated PCP Will send records NHP 03/01/21: Await placement Send records to Dr Kennedy 03/02/2021: Discontinue Detrol Supportive care 03/03/2021: Patient doing well Maintain urology management 03/04/21: Monitor weakness Sugar management 03/05/2021: We will contact [facility] on Sunday for additional MRIs 03/06/2021: Ordered MRI with and without IV contrast of cervical and thoracic spine per [facility] request that will be done tomorrow 03/07/2021: Review MRI Disposition (1) Cervical spinal cord compression (2) Atrial fibrillation (3) Anticoagulation adequate with anticoagulant therapy (4) Urinary retention CARMELLA ESTRADA DO Mar 07, 2021 10:28
--- NOTE | 2021-03-07 10:51 | Occupational Ther Daily Note ---
OT Current Status-Daily Note Subjective Pt alert, lying in bed. Pt agrees to therapy. No c/o pain. Pt to have MRI's today, per request of [facility]. Mental Status/Objective Patient Orientation: Person, Place, Time, Situation Attachments: IV ADL-Treatment Pt agrees to shower. Pt transfers with ck lift to shower chair with cutout. Pt transferred to shower using rolling shower chair. Pt able to cleanse upper body, guillermo area and lower legs sitting in shower chair using hand held shower, grabbars and LH sponge, assist to bath buttocks in bed. Sitting at sink, pt completes oral care independently. Transferred pt back to bed using ck lift and requested to use bedpan. Pt dependent for toileting hygiene and clothing manipulation. Pt able to assist rolling side to side to take wet sling out. Pt assisted [facility] gown. Transferred pt to w/c from bed with ck lift. Pt completed w/c mobility slowly. MRI staff ready for pt at end of therapy. After therapy, left in care of MRI staff. OT/PT co-treat ([id number]), 2 clinicians required for skilled instruction and care to increase mobility, overall strength, bed mobility and dynamic sitting balance, PT focusing on bed mobility, sitting balance while OT focusing on ADLs and functional mobility. Therapy Code Descriptions/Definitions Functional [place] Measure: 0=Not Assessed/NA 4=Minimal Assistance 1=Total Assistance 5=Supervision or Setup 2=Maximal Assistance 6=Modified [place] 3=Moderate Assistance 7=Complete IndependenceSCALE: Activities may be completed with or without assistive devices. 0-Slleitfatp-rdzseqi completes the activity by him/herself with no assistance from a helper. 5-Set-up or Clean-up Assistance-helper sets up or cleans up; patient completes activity. [place] assists only prior to or following the activity. 4-Supervision or Touching Assistance-helper provides verbal cues and/or touching/steadying and/or contact guard assistance as patient completes activity. Assistance may be provided throughout the activity or intermittently. 3-Partial/Moderate Assistance-helper does LESS THAN HALF the effort. [place] lifts, holds or supports trunk or limbs, but provides less than half the effort. 2-Substantial/Maximal Assistance-helper does MORE THAN HALF the effort. [place] lifts or holds trunk or limbs and provides more than half the effort. 0-Xubfmtpwb-aikbpx does ALL the effort. Patient does none of the effort to complete the activity. Or, the assistance of 2 or more helpers is required for the patient to complete the activity. If activity was not attempted, code reason: 7-Patient Refused. 9-Not Applicable-not attempted and the patient did not perform the activity before the current illness, exacerbation or injury. 10-Not Attempted due to Environmental Limitations-(lack of equipment, weather restraints, etc.). 88-Not Attempted due to Medical Conditions or Safety Concerns. Eating (QC): 6 (Pt able to complete own meal set up and use regular utensils to eat.) Oral Hygiene (QC): 6 Bathing Location: L Arm, R Arm, L Upper Leg, R Upper Leg, L Lower Leg (including foot), R Lower Leg (including foot), Chest, Abdomen, Perineal Area Shower/Bathe Self (QC): 3 Lower Body Dressing (QC): 1 On/Off Footwear: 2 Toileting Hygiene (QC): 1 Toilet Transfer (QC): 1 OT Short Term Goals Short Term Goals Time Frame: Feb 24, 2021 Eatin Oral hygiene: 4 Toileting hygiene: 2 Shower/bathe self: 2 Upper body dressin Lower body dressin Putting on/taking off footwear: 3 OT Commercial Driver Goals Commercial Driver Goals Time Frame: Mar 04, 2021 Eating (QC): 6 Oral Hygiene (QC): 5 Toileting Hygiene (QC): 4 Shower/Bathe Self (QC): 3 Upper Body Dressing (QC): 4 Lower Body Dressing (QC): 3 On/Off Footwear (QC): 4 1=Demonstrate adherence to instructed precautions during ADL tasks. 2=Patient will verbalize/demonstrate understanding of assistive devices/modifications for ADL. 3=Patient will improve strength/tolerance for activity to enable patient to perform ADL's. OT Education/Plan Problem List/Assessment Assessment: Dependent Transfers, Impaired Bed Mobility, Impaired Self-Care Skills Discharge Recommendations Plan/Recommendations: Continue POC Treatment Plan/Plan of Care Patient would benefit from OT for education, treatment and training to promote independence in ADL's, mobility, safety and/or upper extremity function for AD L's. Plan of Care: ADL Retraining, Functional Mobility, Group Exercise/Act as Ind, UE Funct Exercise/Act, W/C Management Training Treatment Duration: Mar 04, 2021 Frequency: At least 5 of 7 days/Wk (IRF) Estimated Hrs Per Day: 1.5 hours per day Agreement: Yes Rehab Potential: Guarded Time/GCodes Start Time: 09:30 Stop Time: 11:00 Total Time Billed (hr/min): 90 Billed Treatment Time 1 visit-ADL 5 (70 min) FA 1 (20 min) co-treat with PT [id number], individual [id number] BALTAZAR CÁRDENAS Mar 07, 2021 10:51
--- NOTE | 2021-03-07 10:51 | Physical Therapy Daily Note ---
PT Daily Note-Current Subjective Patient in shower chair pre tx, agrees to PT, has no complaints of pain. Patient has already been working with OT, will co-treat due to poor patient mobility, strength, endurance, coordinate UE and LE during activity, safety and reduce risk of falls. Appearance Patient on MRI table, hand off to technology specialist. Mental Status Patient Orientation: Person, Place, Situation Transfers SCALE: Activities may be completed with or without assistive devices. 5-Ehpjfwtqaz-fonxbiu completes the activity by him/herself with no assistance from a helper. 5-Set-up or Clean-up Assistance-helper sets up or cleans up; patient completes activity. [place] assists only prior to or following the activity. 4-Supervision or Touching Assistance-helper provides verbal cues and/or touching/steadying and/or contact guard assistance as patient completes activity. Assistance may be provided throughout the activity or intermittently. 3-Partial/Moderate Assistance-helper does LESS THAN HALF the effort. [place] lifts, holds or supports trunk or limbs, but provides less than half the effort. 2-Substantial/Maximal Assistance-helper does MORE THAN HALF the effort. [place] lifts or holds trunk or limbs and provides more than half the effort. 1-Rolbtbehj-lzdwyq does ALL the effort. Patient does none of the effort to complete the activity. Or, the assistance of 2 or more helpers is required for the patient to complete the activity. If activity was not attempted, code reason: 7-Patient Refused. 9-Not Applicable-not attempted and the patient did not perform the activity before the current illness, exacerbation or injury. 10-Not Attempted due to Environmental Limitations-(lack of equipment, weather restraints, etc.). 88-Not Attempted due to Medical Conditions or Safety Concerns. Roll Left & Right (QC): 3 Chair/Fdi-yf-Ckdfb Xfer(QC): 1 [place] transfer to bed and then lay down. Patient has to roll from side to side to remove sling, patient has to have a BM, bedpan is placed. Patient has a BM, rolls to the side (min assist to roll to the right, SBA to roll to the left), bedpan is removed and patient is cleaned. Patient then rolls again to place a new sling and he is transferred to . Patient propels WC and then technology specialist comes and he is hoyered to MRI table. Wheelchair Training Does the Pt Use a Wheelchair?: Yes Wheel 50 ft with 2 turns (QC): 4 Type of Wheelchair: Manual 100', SBA, patient propels very slowly, poor trunk control Treatments PT performed transfers, rolling, positioning and safety, OT performed cleaning, assisted with transfers, UE positioning and safety during activity Assessment Current Status: Poor Progress no change in mobility PT Short Term Goals Short Term Goals Time Frame: Feb 17, 2021 Roll Left & Right: 3 Sit to lyin Lying to sitting on side of be: 3 Wheel 50ft w/2 turns: 4 Wheel 150 feet: 4 PT Supervisor Cigarette Making Department Goals Skilled Nursing Goals PT Supervisor Cigarette Making Department Goals Time Frame: Mar 03, 2021 Roll Left & Right (QC): 4 Sit to Lying (QC): 4 Lying-Sitting on Side/Bed(QC): 4 Sit to Stand (QC): 88 Chair/Czu-en-Zxrdr Xfer(QC): 88 Toilet Transfer (QC): 88 Car Transfer (QC): 88 Does the Patient Walk: No and Walking Goal NOT indicated Walk 10 feet (QC): 88 Walk 50ft with 2 Turns (QC): 88 Walk 150 ft (QC): 88 Walking 10ft on Uneven Surface: 88 1 Step (curb) (QC): 88 4 Steps (QC): 88 12 Steps (QC): 88 Picking up an Object (QC): 88 Wheel 50 feet with 2 turns (QC: 6 Wheel 150 feet: 6 PT Plan Problem List Problem List: Activity Tolerance, Functional Strength, Safety, Balance, Gait, T ransfer, Bed Mobility, ROM Treatment/Plan Treatment Plan: Continue Plan of Care Treatment Plan: Bed Mobility, Education, Functional Activity Jorge, Functional Strength, Group Therapy, Gait, Safety, Therapeutic Exercise, Transfers Treatment Duration: Mar 03, 2021 Frequency: At least 5 of 7 days/Wk (IRF) Estimated Hrs Per Day: 1.5 hours per day Patient and/or Family Agrees t: Yes Safety Risks/Education Patient Education: Transfer Techniques, Correct Positioning, W/C Management, Safety Issues Teaching Recipient: Patient Teaching Methods: Demonstration, Discussion Response to Teaching: Reinforcement Needed Time/GCodes Time In: 1000 Time Out: 1100 Total Billed Treatment Time: 60 Total Billed Treatment 1 visit FA 60' co-treated for 60' TARA MCCOY PT Mar 07, 2021 10:51
[2021-03-07] MEDS ORDERED: GADOTERATE 0.5 MMOL/ML (CLARISCAN) 20 ML VIAL IV ONE (11:15)
--- NOTE | 2021-03-07 12:38 | Diagnostic Imaging Report ---
CLINICAL INDICATION: Patient had abnormality of spine seen on outside imaging. EXAM: MRI of the cervical spine performed without and with 20 mL of Clariscan IV contrast. Sequences include sagittal T2, sagittal T1, axial T1, axial T2, sagittal T2 fat-sat, sagittal T1 fat-sat post IV contrast, axial T1 post IV contrast. COMPARISON: MRI of the thoracic spine with and without contrast dated 03/07/2021. FINDINGS: There is no abnormal IV contrast enhancement. Limited visualization of the posterior fossa is unremarkable. There is the appearance of diffuse enlargement with subtle, predominantly homogeneous increased T2 signal involving the cervical spinal cord seen from the C4 to the T1 level region. There is no associated IV contrast enhancement. There is no significant paraspinal soft tissue abnormality. There is multilevel cervical spine degenerative disease and facet arthropathy. C1-C2: There are degenerative spurs involving the atlanto-odontoid interval. There is no significant central canal narrowing. C2-C3: There is mild ligamentum flavum buckling. There is mild central canal narrowing. There is no significant neural foramen narrowing. C3-C4: There is mild bilateral facet arthropathy. There is a small left paracentral disc protrusion/herniation. There is moderate central canal stenosis. There is a small right uncinate spur with moderate right neural foramen narrowing. There is no significant left neural foramen narrowing. C4-C5: There are broad posterior disk spurs, most pronounced in the left paracentral region. There is ligamentum flavum buckling. There is bilateral facet arthropathy. There is severe central canal stenosis. There is mild right neural foramen narrowing and zxwztfkc-oa-tffjie left neural foramen narrowing. C5-C6: There is a diffuse disc bulge with bilateral uncinate spurs. There is kshx-je-pvjzkylv loss of disc space height. There is lnmp-sn-bqduzrnc bilateral facet arthropathy. There is severe bilateral neural foramen narrowing. There is severe central canal stenosis. C6-C7: There is a diffuse disc bulge with moderate loss of disc space height. There are bilateral uncinate spurs. There is moderate right neural foramen narrowing and jqzhbjlx-ws-vxymei left neural foramen narrowing. There is at least ycnr-rj-egbuhxlq central canal narrowing. Enlargement of the cord effaces the thecal sac. C7-T1: There is a small posterior disc bulge with annular tear. There is bilateral facet arthropathy. There is qxxgtxok-cp-jsvmva left neural foramen narrowing and mild right neural foramen narrowing. Enlargement of the cervical cord effaces the thecal sac. IMPRESSION: 1: There is diffuse enlargement with amorphous, predominantly homogeneous, subtle increased T2 signal involving the cervicothoracic cord seen from the C4 through T1 levels. There is no abnormal IV contrast enhancement. This finding is nonspecific. Consideration may include cervical cord neoplasm such as astrocytoma. Transverse myelitis cannot be completely excluded. Infectious or inflammatory process is also less likely. Cord infarct is suspected to be less likely. Lumbar puncture with CSF analysis may help better evaluate etiology of cervical cord abnormality. 2: There is multilevel cervical spine degenerative disease, as described above. Dictated by: Dictated on workstation # [id number]
--- NOTE | 2021-03-07 13:08 | Diagnostic Imaging Report ---
EXAM: MRI THORACIC SPINE W/WO CON INDICATION: Outside abnormal thoracic spine imaging. COMPARISON: Outside imaging is not available. MRI cervical spine without and with IV contrast also performed today. FINDINGS: There is masslike expansion of the visualized lower thoracic and upper thoracic spinal cord to the level of T5. There is abnormal T2 signal and little to no associated enhancement associated with this expansion of the cervical spinal cord. This measures up to 1.5 x 1.2 cm in diameter at the level of T4 compared to 0.8 x 0.7 cm than more normal-appearing thoracic cord at the level of T6. Mild spondylotic changes result in no high-grade spinal canal stenosis in the thoracic spine. No significant neural foraminal narrowing. Benign hemangioma in the T11 vertebral body. Mild Modic type I degenerative endplate changes at T10-T11. Bone marrow signal IN the thoracic spine is otherwise unremarkable. The visualized paravertebral soft tissues demonstrate no acute findings. IMPRESSION: Masslike expansion and abnormal signal within the visualized lower cervical and upper thoracic spinal cord to the level of T5. This demonstrates little to no associated enhancement. Most likely differential considerations would include a glial neoplasm such as an ependymoma or astrocytoma. Although an inflammatory lesion such as transverse myelitis could also be considered, the extensive expansile nature of this lesion makes this less likely. Dictated by: Dictated on workstation # [id number]
--- NOTE | 2021-03-07 13:23 | Physical Therapy Daily Note ---
PT Daily Note-Current Subjective Patient in bed pre tx, agrees to PT, no complaints of pain. Appearance Patient in bed post tx with nurse call, phone, tray, all needs met. Mental Status Patient Orientation: Person, Place, Situation Transfers SCALE: Activities may be completed with or without assistive devices. 1-Mvrvtermuz-qpctbqg completes the activity by him/herself with no assistance from a helper. 5-Set-up or Clean-up Assistance-helper sets up or cleans up; patient completes activity. [place] assists only prior to or following the activity. 4-Supervision or Touching Assistance-helper provides verbal cues and/or touching/steadying and/or contact guard assistance as patient completes activity. Assistance may be provided throughout the activity or intermittently. 3-Partial/Moderate Assistance-helper does LESS THAN HALF the effort. [place] lifts, holds or supports trunk or limbs, but provides less than half the effort. 2-Substantial/Maximal Assistance-helper does MORE THAN HALF the effort. [place] lifts or holds trunk or limbs and provides more than half the effort. 0-Pygymsosm-arbdzp does ALL the effort. Patient does none of the effort to complete the activity. Or, the assistance of 2 or more helpers is required for the patient to complete the activity. If activity was not attempted, code reason: 7-Patient Refused. 9-Not Applicable-not attempted and the patient did not perform the activity before the current illness, exacerbation or injury. 10-Not Attempted due to Environmental Limitations-(lack of equipment, weather restraints, etc.). 88-Not Attempted due to Medical Conditions or Safety Concerns. Exercises Supine Ex: Ankle pumps, Quad Set, Glut sets, Heel Slides (AAROM on the left side), Short Arc Quads (AAROM on the left side), Straight leg raise (AAROM on the left side), Hip abd/add (AAROM on the left side) Supine Reps: 20 (needed assist with SLR and HS and hip abd/add on the right side also) Treatments BLE exercise Assessment Current Status: Poor Progress, Regressing Patient seems to be weaker on the right LE today. PT Short Term Goals Short Term Goals Time Frame: Feb 17, 2021 Roll Left & Right: 3 Sit to lyin Lying to sitting on side of be: 3 Wheel 50ft w/2 turns: 4 Wheel 150 feet: 4 PT Health Administrator Goals Health Administrator Goals PT Health Administrator Goals Time Frame: Mar 03, 2021 Roll Left & Right (QC): 4 Sit to Lying (QC): 4 Lying-Sitting on Side/Bed(QC): 4 Sit to Stand (QC): 88 Chair/Hht-qy-Gifky Xfer(QC): 88 Toilet Transfer (QC): 88 Car Transfer (QC): 88 Does the Patient Walk: No and Walking Goal NOT indicated Walk 10 feet (QC): 88 Walk 50ft with 2 Turns (QC): 88 Walk 150 ft (QC): 88 Walking 10ft on Uneven Surface: 88 1 Step (curb) (QC): 88 4 Steps (QC): 88 12 Steps (QC): 88 Picking up an Object (QC): 88 Wheel 50 feet with 2 turns (QC: 6 Wheel 150 feet: 6 PT Plan Problem List Problem List: Activity Tolerance, Functional Strength, Safety, Balance, Gait, Transfer, Bed Mobility, ROM Treatment/Plan Treatment Plan: Continue Plan of Care Treatment Plan: Bed Mobility, Education, Functional Activity Jorge, Functional Strength, Group Therapy, Gait, Safety, Therapeutic Exercise, Transfers Treatment Duration: Mar 03, 2021 Frequency: At least 5 of 7 days/Wk (IRF) Estimated Hrs Per Day: 1.5 hours per day Patient and/or Family Agrees t: Yes Safety Risks/Education Patient Education: Correct Positioning, Safety Issues Teaching Recipient: Patient Teaching Methods: Demonstration, Discussion Response to Teaching: Reinforcement Needed Time/GCodes Time In: 1300 Time Out: 1330 Total Billed Treatment Time: 30 Total Billed Treatment 1 visit EX 30' TARA MCCOY PT Mar 07, 2021 13:23
[2021-03-07] MEDS: DIGOXIN 0.125 MG (LANOXIN) TAB PO SCH (17:00)
[2021-03-07] MEDS: TAMSULOSIN 0.4 MG (FLOMAX) CAP PO SCH (17:00)
[2021-03-07 19:41] VITALS: BP 90/57
[2021-03-07] MEDS: SIMvastatin 40 MG (ZOCOR) TAB PO SCH (20:37)
[2021-03-07] MEDS: MELATONIN 3 MG TABLET PO PRN (20:40)
[2021-03-08] MEDS: inSUlin ASPART (NovoLOG) 1 UNIT/0.01 ML (CHARGE PER UNIT) SC SCH ×4 (06:12→20:52)
[2021-03-08] MEDS: KCL 10 MEQ TAB (MICRO K) PO SCH (06:12)
[2021-03-08] MEDS: LEVOTHYROXINE 100 MCG (LEVOTHROID) TAB PO SCH (06:12)
[2021-03-08] MEDS: MULTIVIT W/MINERALS TAB (THERAGRAN M) PO SCH (06:12)
[2021-03-08] MEDS: BETHANECHOL 10 MG (URECHOLINE) TAB PO SCH ×4 (06:12→20:52)
[2021-03-08 07:19] VITALS: BP 110/70
--- NOTE | 2021-03-08 07:20 | PM&R Progress Note ---
Subjective HPI/CC On Admission Date Seen by Provider: Mar 08, 2021 Time Seen by Provider: 09:00 Subjective/Events-last exam 03/08/2021: Met with patient and family with son and ex- at bedside and 1 son on phone from [place]. 25-minute conversation ensued. 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 After detailed update on what we know and the possible plan family decided to pursue [facility] so we did submit that to insurance Son on phone in [place] could not understand why " no one is doing anything for him" and completely dissatisfied with all the care he is received from [facility] to current. Tried to reassure patient and family and son on phone but very difficult to redirect son from negative statements. 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 03/07/21: Pt doing well Subtle change in his overall demeanor, he appears to be a bit more frightened and debilitated MRI has just come to bring him down for cervical and thoracic spine with and without IV contrast for [facility] to Review No BM for the last couple of days so will initiate laxatives Labs okay overall 03/06/2021: Patient doing well Sleeping well Spoke to Amy at [facility] as requested by hospital social worker and I have placed orders for MRI with and without IV contrast of cervical and thoracic spine and will need to have those clouded up into the system from [place] to review then hopefully video consultation will ensue No other concerns 03/05/2021: Patient doing well No major concerns [facility] appears to be willing to do a video visit We will likely need to do another MRI so will contact Amy at [facility] at [phone] on Sunday in order to order the MRI that they want then will communicate regarding the visit after that 03/04/21: Pt doing well No significant complaints per nursing staff Still working with therapy Checked meds and labs 03/03/2021: Patient doing well No straight cath needed Sugars are good Bowels are moving well Check meds and labs 03/02/2021: Patient doing well Holding Detrol due to incontinence Bowels are moving Straight cath required Sent all records to PCP from [facility] Cscr-xi-gqid denied skilled care and recommended him to stay in the rehab 03/01/21: Awaiting NH placement In/out cath required multiple times so will reach out to Dr Welsh BM yesterday Checked meds and labs 02/28/21: Patient doing well Labs reviewed No pain reported Spoke to Dr Kennedy his PCP and updated him on everything about the case and the need to f/u [facility] referral Will fax all records to him at [phone] so he can have all of the records also Incontinence noted BM+ 02/27/21: Patient doing well We will speak to his primary care provider before he is discharged to the usp to be sure he can follow-up on [facility] referral Bowels moved today Glucose 168 Check meds and labs 02/26/2021: Patient doing well Discussed [facility] referral care home being arranged in meantime Bowels are moving well 02/25/2021: Miscommunication with [place] in it does not appear that it will be a hospital hospital transfer Remains a [place] lift Son here for family education Denies any new issues 02/24/2021: [facility] had reached out and reviewed the case and it appeared that he was in the midst of being accepted. Patient very excited about the chance to go to [facility] Denies any issues Still a Coleen lift 02/23/2021: Patient doing well Required in and out caths yesterday due to 490 retention Detrol has been started by urology [facility] still in process Bed mobility improved 02/22/2021: Patient doing well Urology started Detrol for incontinence [facility] pending Bowels are moving well Still requiring Coleen lift 02/21/2021: Patient reports no significant concerns Bladder scanning per urology rec No word from [facility] Incontinent of bowel today Labs look good 02/20/2021: Patient has no new complaints today Denies any new issues No pain is reported Incontinence is an issue Fecal incontinence also an issue 02/19/2021: Patient had an uneventful night Denies any new issues Working on bladder retraining Check meds and labs 02/18/2021: Patient doing well Has no complaints Cystoscopy to be done today by urology No pain is reported Bowel evacuation ordered 02/17/2021: Patient doing really well Bowels moved yesterday All records sent to [facility] Has no rectal tone May need a suppository to evacuate bowels and treated like a paraplegic Bottom wound appears to be very superficial on a cushion 02/16/2021: Pt doing well No issues Bowels moved yesterday and fecal incontinence Frausto cath in Cystoscopy by Dr. Welsh on Sunday02/15/2021: Pt doing a little better Frausto required and Dr. Welsh consulted Spot checks of oxygen without CPAP during the night are okay Still a Coleen-lift 02/14/2021: Pt doing well Condom catheter will be attempted Platelet count 108 Wound looks good BP and blood sugar good No pain Bowels are moving 02/13/2021: Patient doing well Has no needs Bowels are moving well No issues Sugars are reviewed 02/12/2021: Patient doing well Incontinent of bowel and bladder a lot Able to move himself and turn himself in bed Check meds and labs Cognitive deficit could preclude independent living 02/11/2021: Patient doing pretty well Dr. Rubio will be consulted Noncompliant with CPAP machine Oxygen was good last night at 90% Wound care consulted Dr. Pyle Sugars good Bowels are a bit loose and he does have fecal incontinence Review of Systems General: Fatigue Neurological: Weakness, Incoordination Objective Exam Vital Signs Vital Signs Date Time Temp Pulse Resp B/P (MAP) Pulse Ox O2 Delivery O2 Flow Rate FiO2 03/08/21 21:00 Room Air 03/08/21 19:30 36.4 101 20 97/60 (72) 96 Capillary Refill : General Appearance: No Apparent Distress, WD/WN, Chronically ill HEENT: PERRL/EOMI, Normal ENT Inspection, Pharynx Normal Neck: Full Range of Motion, Normal Inspection, Non Tender, Supple, Carotid Bruit Respiratory: Chest Non Tender, Lungs Clear, Normal Breath Sounds, No Accessory Muscle Use, No Respiratory Distress Cardiovascular: Regular Rate, Rhythm, No Edema, No Gallop, No JVD, No Murmur, Normal Peripheral Pulses Gastrointestinal: Normal Bowel Sounds, No Organomegaly, No Pulsatile Mass, Non Tender, Soft Back: Normal Inspection, No CVA Tenderness, No Vertebral Tenderness Extremity: Normal Capillary Refill, Normal Inspection, Normal Range of Motion, Non Tender, No Calf Tenderness, No Pedal Edema Neurologic/Psychiatric: Alert, Oriented x3, Normal Mood/Affect, escrow representative II-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 [facility] Transfers Therapy Code Descriptions/Definitions Functional [place] Measure: 0=Not Assessed/NA 4=Minimal Assistance 1=Total Assistance 5=Supervision or Setup 2=Maximal Assistance 6=Modified [place] 3=Moderate Assistance 7=Complete IndependenceSCALE: Activities may be completed with or without assistive devices. 1-Kjipdormgp-nlxytjw completes the activity by him/herself with no assistance from a helper. 5-Set-up or Clean-up Assistance-helper sets up or cleans up; patient completes a ctivity. [place] assists only prior to or following the activity. 4-Supervision or Touching Assistance-helper provides verbal cues and/or touching/steadying and/or contact guard assistance as patient completes activity. Assistance may be provided throughout the activity or intermittently. 3-Partial/Moderate Assistance-helper does LESS THAN HALF the effort. [place] lifts, holds or supports trunk or limbs, but provides less than half the effort. 2-Substantial/Maximal Assistance-helper does MORE THAN HALF the effort. [place] lifts or holds trunk or limbs and provides more than half the effort. 9-Fjrgjyath-jmgsxc does ALL the effort. Patient does none of the effort to complete the activity. Or, the assistance of 2 or more helpers is required for the patient to complete the activity. If activity was not attempted, code reason: 7-Patient Refused. 9-Not Applicable-not attempted and the patient did not perform the activity before the current illness, exacerbation or injury. 10-Not Attempted due to Environmental Limitations-(lack of equipment, weather restraints, etc.). 88-Not Attempted due to Medical Conditions or Safety Concerns. Roll Left to Right (QC): 3 Sit to Lying (QC): 2 Sit to Stand (QC): 88 Chair/Pck-hz-Rfewk Xfer(QC): 1 Car Transfer (QC): 88 Gait Training Does the Patient Walk?: No and Walking Goal NOT indicated Walk 10 feet (QC): 88 Walk 50 ft with 2 Turns(QC): 88 Walk 150 ft (QC): 88 Walking 10ft/uneven surface-QC: 88 Wheelchair Training Does the Pt Use a Wheelchair?: Yes Distance: 100'x2 Wheel 50 ft with 2 turns (QC): 4 Wheel 150 ft (QC): 3 Type of Wheelchair: Manual Stair Training 1 Step (curb) (QC): 88 4 Steps (QC): 88 12 Steps (QC): 88 Balance Picking up an Object (QC): 88 ADL-Treatment Eating (QC): 6 (Pt able to complete own meal set up and use regular utensils to eat.) Oral Hygiene (QC): 6 Bathing Location: L Arm, R Arm, L Upper Leg, R Upper Leg, L Lower Leg (including foot), R Lower Leg (including foot), Chest, Abdomen, Perineal Area Shower/Bathe Self (QC): 3 Upper Body Dressing (QC): 3 Lower Body Dressing (QC): 1 On/Off Footwear (QC): 2 Toileting Hygiene (QC): 1 Toilet Transfer (QC): 1 Assessment/Plan Assessment and Plan Assess & Plan/Chief Complaint Assessment: 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 and subsequent neurological deficits Lumbar L4-L5 subarticular recess narrowing B/L Left-sided weakness Hepatic Hemangioma Systolic Heart Failure LFT elevation LBBB Previous hypotension Obesity CAD Dementia/cognitive impairment GERD PUD PVD Diabetic polyneuropathy Progressive weakness High risk of falling Gait disturbance Spasticity T2DM Constipation Edema HTN Paroxysmal A-fib Thrombocytopenia Urinary Retention Status post UTI (resolved) BAM on CPAP Cystoscopy on 02/18/2021 Plan: Aggressive PT, OT, and speech therapy Order basic lab work in the morning Review records, talk to his family members as they are more in tune with his medical condition then the patient himself Neurology follow up Consult Dr. Rubio for A. fib 02/11/2021: Supportive care Dr. Rubio consult Poor memory recall noted 02/12/2021: Incontinence care Aggressive therapy 02/13/2021: Incontinence care Aggressive therapy 02/14/2021: Attempt condom catheter due to incontinence Monitor for retention Dr. Welsh consult 02/15/2021: Appreciate urology management Aggressive therapy Send records to [facility] 02/16/2021: Supportive care Send records to [facility] from [facility]'s Continue aggressive treatment Cystoscopy tomorrow 02/17/2021: Cystoscopy tomorrow Bowel evacuation 02/18/2021: Cystoscopy Appreciate urology 02/19/2021: Supportive care Urology appreciated 02/20/2021: Supportive care Incontinence care 02/21/2021: Supportive care Incontinence care Appreciate urology 02/22/2021: Detrol for incontinence Appreciate urology Continue aggressive treatment 02/23/2021 Patient will need nursing care at discharge Appreciate urology 02/24/2021: [facility] transfer? Continue aggressive therapy 02/25/2021: care home admission [facility] still pending 02/26/2021: Await usp placement [facility] referral 02/27/21: Monitor closely Await NH placement Will speak to Dr Kennedy 02/28/21: Updated PCP Will send records NHP 03/01/21: Await placement Send records to Dr Kennedy 03/02/2021: Discontinue Detrol Supportive care 03/03/2021: Patient doing well Maintain urology management 03/04/21: Monitor weakness Sugar management 03/05/2021: We will contact [facility] on Sunday for additional MRIs 03/06/2021: Ordered MRI with and without IV contrast of cervical and thoracic spine per [facility] request that will be done tomorrow 03/07/2021: Review MRI Disposition 03/08/2021: Family meeting for 25 minutes Additional 30 minutes in review of scans and review of data (1) Cervical spinal cord compression (2) Atrial fibrillation (3) Anticoagulation adequate with anticoagulant therapy (4) Urinary retention CARMELLA ESTRADA DO Mar 08, 2021 07:20
[2021-03-08] MEDS: APIXABAN 5 MG (ELIQUIS) TABLET PO SCH ×2 (08:43→20:51)
[2021-03-08] MEDS: lisINopril 10 MG (PRINIVIL) TABLET PO SCH (08:43)
[2021-03-08] MEDS: LOSARTAN 50 MG (COZAAR) TAB PO SCH (08:43)
[2021-03-08] MEDS: FAMOTIDINE 20 MG (PEPCID) TABLET PO SCH (08:43)
[2021-03-08] MEDS: polyethylene glycoL POWDER 17 GM (MIRALAX) PACK PO SCH ×3 (08:43→20:54)
[2021-03-08] MEDS: DOCUSATE SODIUM 100 MG (COLACE) CAP PO SCH ×2 (08:44→20:54)
[2021-03-08] MEDS: FERROUS SULF 325 MG (IRON) TAB PO SCH (08:44)
[2021-03-08] MEDS: SENNA W/DOCUSATE (SENOKOT S) TABLET PO SCH ×2 (08:44→20:54)
[2021-03-08] MEDS: MAGNESIUM OXIDE (MAG-OX)400 MG TAB PO SCH (08:44)
[2021-03-08] MEDS: FUROSEMIDE 20 MG (LASIX) TAB PO SCH (08:45)
[2021-03-08] MEDS: OMEGA 3 (FISH OIL) 1000 MG CAP PO SCH ×2 (08:45→20:52)
[2021-03-08] MEDS: meTOprolol SUCCINATE 100 MG (TOPROL XL) TAB PO SCH (08:46)
[2021-03-08] MEDS: CALCIUM CARB + VIT D 600 MG (CALCARB + D) TAB PO SCH (10:15)
--- NOTE | 2021-03-08 11:31 | Occupational Ther Daily Note ---
OT Current Status-Daily Note Subjective Pt denies pain. Agreeable to co-treat. OT/PT co-treat ([id number]), 2 clinicians required for skilled instruction and care to increase mobility, overall strength, bed mobility and dynamic sitting balance. Appearance pt left sitting in w/c, family in room. Mental Status/Objective Attachments: IV ADL-Treatment Therapy Code Descriptions/Definitions Functional [place] Measure: 0=Not Assessed/NA 4=Minimal Assistance 1=Total Assistance 5=Supervision or Setup 2=Maximal Assistance 6=Modified [place] 3=Moderate Assistance 7=Complete IndependenceSCALE: Activities may be completed with or without assistive devices. 5-Gjwoypkjvq-ainxezw completes the activity by him/herself with no assistance from a helper. 5-Set-up or Clean-up Assistance-helper sets up or cleans up; patient completes activity. [place] assists only prior to or following the activity. 4-Supervision or Touching Assistance-helper provides verbal cues and/or touching/steadying and/or contact guard assistance as patient completes activity. Assistance may be provided throughout the activity or intermittently. 3-Partial/Moderate Assistance-helper does LESS THAN HALF the effort. [place] lifts, holds or supports trunk or limbs, but provides less than half the effort. 2-Substantial/Maximal Assistance-helper does MORE THAN HALF the effort. [place] lifts or holds trunk or limbs and provides more than half the effort. 8-Renngvczq-arazap does ALL the effort. Patient does none of the effort to complete the activity. Or, the assistance of 2 or more helpers is required for the patient to complete the activity. If activity was not attempted, code reason: 7-Patient Refused. 9-Not Applicable-not attempted and the patient did not perform the activity before the current illness, exacerbation or injury. 10-Not Attempted due to Environmental Limitations-(lack of equipment, weather restraints, etc.). 88-Not Attempted due to Medical Conditions or Safety Concerns. Oral Hygiene (QC): 3 Toileting Hygiene (QC): 1 Toilet Transfer (QC): 1 Other Treatment Pt incontinent of BM at start of session. Dep for guillermo care in sidelying. Transfer into w/c by use of ck. Grooming tasks performed at w/c level. Pt unable to squeeze toothpaste secondary to weakness this date. Requires HOHA to complete. Attempt at removing w/c back/trunk support during task in order to encourage core strengthening and sitting balance. OT quickly terminated unsupported sitting and back support was replaced as pt unable to maintain sitting balance without BUE support on sink. Pt then propelled w/c throughout unit. He fatigues easily and requires several lengthy sitting rest breaks. With fatigue, pt's strength, sensation and coordination in his LUE dissipates. Rest breaks needed to recover. HOHA/Mod a to bring L hand further back on wheel and to assist in pushing down with propulsion. LE strengthening exercise, 10x3. Assist of second person needed to maintain LE's on mat. LUE exercises at wrist/hand. Wrist drop not as apparent but pt definitely exhibits weak extensors. Only able to tolerate 2-3 reps before needing AA-PROM. Tapping at extensor muscle belly to assist in facilitating a voluntary contraction.Pt is regressing with sitting balance, lower/upper extremity strength, adls, and overall endurance. Education OT Patient Education: Correct positioning, Disease process, Exercise program, Instructions to caregiver, Modified ADL techniques, Progress toward Goal/Update tx plan, Purpose of tx/functional activities, Reviewed precautions, Rehab process, Safety issues, Transfer techniques, W/C management Teaching Recipient: Patient Teaching Methods: Demonstration, Discussion Response to Teaching: Verbalize Understanding, Return Demonstration, Reinforcement Needed OT Short Term Goals Short Term Goals Time Frame: Feb 24, 2021 Eatin Oral hygiene: 4 Toileting hygiene: 2 Shower/bathe self: 2 Upper body dressin Lower body dressin Putting on/taking off footwear: 3 OT Snf Goals Snf Goals Time Frame: Mar 04, 2021 Eating (QC): 6 Oral Hygiene (QC): 5 Toileting Hygiene (QC): 4 Shower/Bathe Self (QC): 3 Upper Body Dressing (QC): 4 Lower Body Dressing (QC): 3 On/Off Footwear (QC): 4 1=Demonstrate adherence to instructed precautions during ADL tasks. 2=Patient will verbalize/demonstrate understanding of assistive devices/modifications for ADL. 3=Patient will improve strength/tolerance for activity to enable patient to perform ADL's. OT Education/Plan Problem List/Assessment Assessment: Decreased Activ Tolerance, Decreased Safety Aware, Decreased UE Strength, Dependent Transfers, Impaired Bed Mobility, Impaired Cognition, Im paired Coordination, Impaired Funct Balance, Impaired I ADL's, Impaired Self- Care Skills, Restricted Funct UE ROM Discharge Recommendations Plan/Recommendations: Continue POC Treatment Plan/Plan of Care Treatment,Training & Education: Yes Patient would benefit from OT for education, treatment and training to promote independence in ADL's, mobility, safety and/or upper extremity function for ADL's. Plan of Care: ADL Retraining, Functional Mobility, Group Exercise/Act as Ind, UE Funct Exercise/Act, W/C Management Training Treatment Duration: Mar 04, 2021 Frequency: At least 5 of 7 days/Wk (IRF) Estimated Hrs Per Day: 1.5 hours per day Agreement: Yes Rehab Potential: Guarded Time/GCodes Start Time: 10:00 Stop Time: 11:30 Total Time Billed (hr/min): 90 Billed Treatment Time 1 visit ADL (15 min) NM (15 min) EX (15 min) FA x3 (45 min) co-treat with PT 90 min Antonieta Angel OT Mar 08, 2021 11:31
--- NOTE | 2021-03-08 11:32 | Physical Therapy Daily Note ---
PT Daily Note-Current Subjective Pt laying Supine in bed with family present as family is just finishing a family meeting with SW. Pt agrees to PT/OT co-treat. Pain Location: No Pain Reported Mental Status Patient Orientation: Person, Place, Situation Transfers SCALE: Activities may be completed with or without assistive devices. 0-Yaounssmpx-suptzvh completes the activity by him/herself with no assistance from a helper. 5-Set-up or Clean-up Assistance-helper sets up or cleans up; patient completes activity. [place] assists only prior to or following the activity. 4-Supervision or Touching Assistance-helper provides verbal cues and/or touching/steadying and/or contact guard assistance as patient completes activity. Assistance may be provided throughout the activity or intermittently. 3-Partial/Moderate Assistance-helper does LESS THAN HALF the effort. [place] lifts, holds or supports trunk or limbs, but provides less than half the effort. 2-Substantial/Maximal Assistance-helper does MORE THAN HALF the effort. [place] lifts or holds trunk or limbs and provides more than half the effort. 7-Ughczqabp-dodftz does ALL the effort. Patient does none of the effort to complete the activity. Or, the assistance of 2 or more helpers is required for the patient to complete the activity. If activity was not attempted, code reason: 7-Patient Refused. 9-Not Applicable-not attempted and the patient did not perform the activity before the current illness, exacerbation or injury. 10-Not Attempted due to Environmental Limitations-(lack of equipment, weather restraints, etc.). 88-Not Attempted due to Medical Conditions or Safety Concerns. Roll Left & Right (QC): 2 Sit to Stand (QC): 1 Chair/Xew-qx-Yaoki Xfer(QC): 1 Gait Training Does the Patient Walk?: No and Walking Goal NOT indicated Wheelchair Training Does the Pt Use a Wheelchair?: Yes Wheel 50 ft with 2 turns (QC): 3 Wheel 150 ft (QC): 3 Type of Wheelchair: Manual Treatments Pt incontinent of BM at start of session. Dep for guillermo care in sidelying. Transfer into w/c by use of ck. Grooming tasks performed at w/c level. Pt unable to squeeze toothpaste secondary to weakness this date. Requires HOHA to complete. Attempt at removing w/c back/trunk support during task in order to encourage core strengthening and sitting balance. OT quickly terminated unsupported sitting and back support was replaced as pt unable to maintain sitting balance without BUE support on sink. Pt then propelled w/c throughout unit. He fatigues easily and requires several lengthy sitting rest breaks. With fatigue, pt's strength, sensation and coordination in his LUE dissipates. Rest breaks needed to recover. HOHA/Mod a to bring L hand further back on wheel and to assist in pushing down with propulsion. LE strengthening exercise, 10x3. Assist of second person needed to maintain LE's on mat. LUE exercises at wrist/hand. Wrist drop not as apparent but pt definitely exhibits weak extens ors. Only able to tolerate 2-3 reps before needing AA-PROM. Tapping at extensor muscle belly to assist in facilitating a voluntary contraction.Pt is regressing with sitting balance, lower/upper extremity strength, adls, and overall endurance. Assessment Current Status: Fair Progress Pt fatigues easily and needs frequent RB gale. w/WCH mobility. PT Short Term Goals Short Term Goals Time Frame: Feb 17, 2021 Roll Left & Right: 3 Sit to lyin Lying to sitting on side of be: 3 Wheel 50ft w/2 turns: 4 Wheel 150 feet: 4 PT Post Hole Digging Machine Operator Goals Post Hole Digging Machine Operator Goals PT Correction Goals Time Frame: Mar 03, 2021 Roll Left & Right (QC): 4 Sit to Lying (QC): 4 Lying-Sitting on Side/Bed(QC): 4 Sit to Stand (QC): 88 Chair/Vgj-ji-Tknbf Xfer(QC): 88 Toilet Transfer (QC): 88 Car Transfer (QC): 88 Does the Patient Walk: No and Walking Goal NOT indicated Walk 10 feet (QC): 88 Walk 50ft with 2 Turns (QC): 88 Walk 150 ft (QC): 88 Walking 10ft on Uneven Surface: 88 1 Step (curb) (QC): 88 4 Steps (QC): 88 12 Steps (QC): 88 Picking up an Object (QC): 88 Wheel 50 feet with 2 turns (QC: 6 Wheel 150 feet: 6 PT Plan Problem List Problem List: Activity Tolerance, Functional Strength, Transfer, Bed Mobility Treatment/Plan Treatment Plan: Continue Plan of Care Treatment Plan: Bed Mobility, Education, Functional Activity Jorge, Functional Strength, Group Therapy, Gait, Safety, Therapeutic Exercise, Transfers Treatment Duration: Mar 03, 2021 Frequency: At least 5 of 7 days/Wk (IRF) Estimated Hrs Per Day: 1.5 hours per day Patient and/or Family Agrees t: Yes Safety Risks/Education Patient Education: Correct Positioning, W/C Management, Safety Issues Teaching Recipient: Patient Teaching Methods: Demonstration, Discussion Response to Teaching: Verbalize Understanding, Return Demonstration Time/GCodes Time In: 1000 Time Out: 1130 Total Billed Treatment Time: 90 Total Billed Treatment Co-treat w/OT for 90m ([id number]) 1, FA x2 (30m), WCH x3 (40m) & EX (20m) HENRIETTA VALENZUELA ANIMAL CARE SPECIALIST Mar 08, 2021 11:32
[2021-03-08] MEDS: DIGOXIN 0.125 MG (LANOXIN) TAB PO SCH (17:10)
[2021-03-08] MEDS: TAMSULOSIN 0.4 MG (FLOMAX) CAP PO SCH (17:10)
[2021-03-08 19:30] VITALS: BP 97/60
[2021-03-08] MEDS: SIMvastatin 40 MG (ZOCOR) TAB PO SCH (20:52)
[2021-03-08] MEDS: MELATONIN 3 MG TABLET PO PRN (20:52)
[2021-03-09] MEDS: inSUlin ASPART (NovoLOG) 1 UNIT/0.01 ML (CHARGE PER UNIT) SC SCH ×4 (05:50→20:58)
[2021-03-09] MEDS: BETHANECHOL 10 MG (URECHOLINE) TAB PO SCH ×4 (06:13→21:04)
[2021-03-09] MEDS: MULTIVIT W/MINERALS TAB (THERAGRAN M) PO SCH (06:13)
[2021-03-09] MEDS: KCL 10 MEQ TAB (MICRO K) PO SCH (06:13)
[2021-03-09] MEDS: LEVOTHYROXINE 100 MCG (LEVOTHROID) TAB PO SCH (06:13)
[2021-03-09] MEDS: CALCIUM CARB + VIT D 600 MG (CALCARB + D) TAB PO SCH (08:54)
[2021-03-09] MEDS: MAGNESIUM OXIDE (MAG-OX)400 MG TAB PO SCH (08:54)
[2021-03-09] MEDS: SENNA W/DOCUSATE (SENOKOT S) TABLET PO SCH ×2 (08:55→21:05)
[2021-03-09] MEDS: DOCUSATE SODIUM 100 MG (COLACE) CAP PO SCH ×2 (08:55→21:05)
[2021-03-09] MEDS: LOSARTAN 50 MG (COZAAR) TAB PO SCH (08:55)
[2021-03-09] MEDS: OMEGA 3 (FISH OIL) 1000 MG CAP PO SCH ×2 (08:55→21:04)
[2021-03-09] MEDS: FERROUS SULF 325 MG (IRON) TAB PO SCH (08:55)
[2021-03-09] MEDS: FAMOTIDINE 20 MG (PEPCID) TABLET PO SCH (08:56)
[2021-03-09] MEDS: polyethylene glycoL POWDER 17 GM (MIRALAX) PACK PO SCH ×2 (08:56→19:59)
[2021-03-09] MEDS: FUROSEMIDE 20 MG (LASIX) TAB PO SCH (08:56)
[2021-03-09] MEDS: APIXABAN 5 MG (ELIQUIS) TABLET PO SCH ×2 (08:56→21:04)
[2021-03-09] MEDS: lisINopril 10 MG (PRINIVIL) TABLET PO SCH (08:56)
[2021-03-09] MEDS: meTOprolol SUCCINATE 100 MG (TOPROL XL) TAB PO SCH (08:56)
[2021-03-09 08:59] VITALS: BP 124/58
--- NOTE | 2021-03-09 09:28 | PM&R Progress Note ---
Subjective HPI/CC On Admission Date Seen by Provider: Mar 09, 2021 Time Seen by Provider: 09:00 Subjective/Events-last exam 03/09/2021: Patient doing well No major issues Bowels are moving Check meds and labs Continuing to await for information from insurance for approval from [facility] 03/08/2021: Met with patient and family with son and ex- at bedside and 1 son on phone from [place]. 25-minute conversation ensued. 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 After detailed update on what we know and the possible plan family decided to pursue [facility] so we did submit that to insurance Son on phone in [place] could not understand why " no one is doing anything for him" and completely dissatisfied with all the care he is received from [facility] to [facility]. Tried to reassure patient and family and son on phone but very difficult to redirect son from negative statements. 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 03/07/21: Pt doing well Subtle change in his overall demeanor, he appears to be a bit more frightened and debilitated MRI has just come to bring him down for cervical and thoracic spine with and without IV contrast for [facility] to Review No BM for the last couple of days so will initiate laxatives Labs okay overall 03/06/2021: Patient doing well Sleeping well Spoke to Amy at [facility] as requested by oncology social work and I have placed orders for MRI with and without IV contrast of cervical and thoracic spine and will need to have those clouded up into the system from [facility] to review then hopefully video consultation will ensue No other concerns 03/05/2021: Patient doing well No major concerns [facility] appears to be willing to do a video visit We will likely need to do another MRI so will contact Amy at [facility] at [phone] on Sunday in order to order the MRI that they want then will communicate regarding the visit after that 03/04/21: Pt doing well No significant complaints per nursing staff Still working with therapy Checked meds and labs 03/03/2021: Patient doing well No straight cath needed Sugars are good Bowels are moving well Check meds and labs 03/02/2021: Patient doing well Holding Detrol due to incontinence Bowels are moving Straight cath required Sent all records to PCP from [facility] [id number] denied skilled care and recommended him to stay in the rehab 03/01/21: Awaiting NH placement In/out cath required multiple times so will reach out to Dr Welsh BM yesterday Checked meds and labs 02/28/21: Patient doing well Labs reviewed No pain reported Spoke to Dr Kennedy his PCP and updated him on everything about the case and the need to f/u [facility] referral Will fax all records to him at [phone] so he can have all of the records also Incontinence noted BM+ 02/27/21: Patient doing well We will speak to his primary care provider before he is discharged to the correction to be sure he can follow-up on [facility] referral Bowels moved today Glucose 168 Check meds and labs 02/26/2021: Patient doing well Discussed [facility] referral senior living being arranged in meantime Bowels are moving well 02/25/2021: Miscommunication with [facility] in it does not appear that it will be a hospital hospital transfer Remains a Coleen lift Son here for family education Denies any new issues 02/24/2021: [facility] had reached out and reviewed the case and it appeared that he was in the midst of being accepted. Patient very excited about the chance to go to [facility] Denies any issues Still a Coleen lift 02/23/2021: Patient doing well Required in and out caths yesterday due to 490 retention Detrol has been started by urology [facility] still in process Bed mobility improved 02/22/2021: Patient doing well Urology started Detrol for incontinence [facility] pending Bowels are moving well Still requiring Coleen lift 02/21/2021: Patient reports no significant concerns Bladder scanning per urology rec No word from [facility] Incontinent of bowel today Labs look good 02/20/2021: Patient has no new complaints today Denies any new issues No pain is reported Incontinence is an issue Fecal incontinence also an issue 02/19/2021: Patient had an uneventful night Denies any new issues Working on bladder retraining Check meds and labs 02/18/2021: Patient doing well Has no complaints Cystoscopy to be done today by urology No pain is reported Bowel evacuation ordered 02/17/2021: Patient doing really well Bowels moved yesterday All records sent to [facility] Has no rectal tone May need a suppository to evacuate bowels and treated like a paraplegic Bottom wound appears to be very superficial on a cushion 02/16/2021: Pt doing well No issues Bowels moved yesterday and fecal incontinence Frausto cath in Cystoscopy by Dr. Welsh on Sunday02/15/2021: Pt doing a little better Frausto required and Dr. Welsh consulted Spot checks of oxygen without CPAP during the night are okay Still a Coleen-lift 02/14/2021: Pt doing well Condom catheter will be attempted Platelet count 108 Wound looks good BP and blood sugar good No pain Bowels are moving 02/13/2021: Patient doing well Has no needs Bowels are moving well No issues Sugars are reviewed 02/12/2021: Patient doing well Incontinent of bowel and bladder a lot Able to move himself and turn himself in bed Check meds and labs Cognitive deficit could preclude independent living 02/11/2021: Patient doing pretty well Dr. Rubio will be consulted Noncompliant with CPAP machine Oxygen was good last night at 90% Wound care consulted Dr. Pyle Sugars good Bowels are a bit loose and he does have fecal incontinence Review of Systems General: Fatigue, Malaise Neurological: Weakness, Incoordination Objective Exam Vital Signs Vital Signs Date Time Temp Pulse Resp B/P (MAP) Pulse Ox O2 Delivery O2 Flow Rate FiO2 03/09/21 20:20 Room Air 03/09/21 19:37 35.9 71 17 111/57 (75) 96 Capillary Refill : General Appearance: No Apparent Distress, WD/WN, Chronically ill HEENT: PERRL/EOMI, Normal ENT Inspection, Pharynx Normal Neck: Full Range of Motion, Normal Inspection, Non Tender, Supple, Carotid Bruit Respiratory: Chest Non Tender, Lungs Clear, Normal Breath Sounds, No Accessory Muscle Use, No Respiratory Distress Cardiovascular: Regular Rate, Rhythm, No Edema, No Gallop, No JVD, No Murmur, Normal Peripheral Pulses Gastrointestinal: Normal Bowel Sounds, No Organomegaly, No Pulsatile Mass, Non Tender, Soft Back: Normal Inspection, No CVA Tenderness, No Vertebral Tenderness Extremity: Normal Capillary Refill, Normal Inspection, Normal Range of Motion, Non Tender, No Calf Tenderness, No Pedal Edema Neurologic/Psychiatric: Alert, Oriented x3, Normal Mood/Affect, real estate marketing coordinator II-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 FIM Transfers Therapy Code Descriptions/Definitions Functional [place] Measure: 0=Not Assessed/NA 4=Minimal Assistance 1=Total Assistance 5=Supervision or Setup 2=Maximal Assistance 6=Modified [place] 3=Moderate Assistance 7=Complete IndependenceSCALE: Activities may be completed with or without assistive devices. 4-Ucsrbuvols-jtlomfu completes the activity by him/herself with no assistance from a helper. 5-Set-up or Clean-up Assistance-helper sets up or cleans up; patient completes activity. [place] assists only prior to or following the activity. 4-Supervision or Touching Assistance-helper provides verbal cues and/or touching/steadying and/or contact guard assistance as patient completes activity. Assistance may be provided throughout the activity or intermittently. 3-Partial/Moderate Assistance-helper does LESS THAN HALF the effort. [place] lifts, holds or supports trunk or limbs, but provides less than half the effort. 2-Substantial/Maximal Assistance-helper does MORE THAN HALF the effort. [place] lifts or holds trunk or limbs and provides more than half the effort. 3-Yaaxmffog-nbkslw does ALL the effort. Patient does none of the effort to complete the activity. Or, the assistance of 2 or more helpers is required for the patient to complete the activity. If activity was not attempted, code reason: 7-Patient Refused. 9-Not Applicable-not attempted and the patient did not perform the activity before the current illness, exacerbation or injury. 10-Not Attempted due to Environmental Limitations-(lack of equipment, weather restraints, etc.). 88-Not Attempted due to Medical Conditions or Safety Concerns. Roll Left to Right (QC): 2 Sit to Lying (QC): 2 Sit to Stand (QC): 1 Chair/Dhc-rh-Pqzvk Xfer(QC): 1 Car Transfer (QC): 88 Gait Training Does the Patient Walk?: No and Walking Goal NOT indicated Walk 10 feet (QC): 88 Walk 50 ft with 2 Turns(QC): 88 Walk 150 ft (QC): 88 Walking 10ft/uneven surface-QC: 88 Wheelchair Training Does the Pt Use a Wheelchair?: Yes Distance: 100'x2 Wheel 50 ft with 2 turns (QC): 3 Wheel 150 ft (QC): 3 Type of Wheelchair: Manual Stair Training 1 Step (curb) (QC): 88 4 Steps (QC): 88 12 Steps (QC): 88 Balance Picking up an Object (QC): 88 ADL-Treatment Eating (QC): 6 (Pt able to complete own meal set up and use regular utensils to eat.) Oral Hygiene (QC): 3 Bathing Location: L Arm, R Arm, L Upper Leg, R Upper Leg, L Lower Leg (including foot), R Lower Leg (including foot), Chest, Abdomen, Perineal Area Shower/Bathe Self (QC): 3 Upper Body Dressing (QC): 3 Lower Body Dressing (QC): 1 On/Off Footwear (QC): 2 Toileting Hygiene (QC): 1 Toilet Transfer (QC): 1 Assessment/Plan Assessment and Plan Assess & Plan/Chief Complaint Assessment: 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 and subsequent neurological deficits Lumbar L4-L5 subarticular recess narrowing B/L Left-sided weakness Hepatic Hemangioma Systolic Heart Failure LFT elevation LBBB Previous hypotension Obesity CAD Dementia/cognitive impairment GERD PUD PVD Diabetic polyneuropathy Progressive weakness High risk of falling Gait disturbance Spasticity T2DM Constipation Edema HTN Paroxysmal A-fib Thrombocytopenia Urinary Retention Status post UTI (resolved) BAM on CPAP Cystoscopy on 02/18/2021 Plan: Aggressive PT, OT, and speech therapy Order basic lab work in the morning Review records, talk to his family members as they are more in tune with his medical condition then the patient himself Neurology follow up Consult Dr. Rubio for A. fib 02/11/2021: Supportive care Dr. Rubio consult Poor memory recall noted 02/12/2021: Incontinence care Aggressive therapy 02/13/2021: Incontinence care Aggressive therapy 02/14/2021: Attempt condom catheter due to incontinence Monitor for retention Dr. Welsh consult 02/15/2021: Appreciate urology management Aggressive therapy Send records to [facility] 02/16/2021: Supportive care Send records to [facility] from [facility] Continue aggressive treatment Cystoscopy tomorrow 02/17/2021: Cystoscopy tomorrow Bowel evacuation 02/18/2021: Cystoscopy Appreciate urology 02/19/2021: Supportive care Urology appreciated 02/20/2021: Supportive care Incontinence care 02/21/2021: Supportive care Incontinence care Appreciate urology 02/22/2021: Detrol for incontinence Appreciate urology Continue aggressive treatment 02/23/2021 Patient will need nursing care at discharge Appreciate urology 02/24/2021: [facility] transfer? Continue aggressive therapy 02/25/2021: senior living admission [facility] still pending 02/26/2021: Await correction placement [facility] referral 02/27/21: Monitor closely Await NH placement Will speak to Dr Kennedy 02/28/21: Updated PCP Will send records NHP 03/01/21: Await placement Send records to Dr Kennedy 03/02/2021: Discontinue Detrol Supportive care 03/03/2021: Patient doing well Maintain urology management 03/04/21: Monitor weakness Sugar management 03/05/2021: We will contact [facility] on Sunday for additional MRIs 03/06/2021: Ordered MRI with and without IV contrast of cervical and thoracic spine per [facility] request that will be done tomorrow 03/07/2021: Review MRI Disposition 03/08/2021: Family meeting for 25 minutes Additional 30 minutes in review of scans and review of data 03/09/2021: Continue aggressive therapy Await [facility] decision from insurance (1) Cervical spinal cord compression (2) Atrial fibrillation (3) Anticoagulation adequate with anticoagulant therapy (4) Urinary retention CARMELLA ESTRADA DO Mar 09, 2021 09:28
--- NOTE | 2021-03-09 12:15 | Physical Therapy Daily Note ---
PT Daily Note-Current Subjective Pt laying Supine in bed upon arrival. Pt agrees to PT. Mental Status Patient Orientation: Person, Place, Time, Situation Transfers SCALE: Activities may be completed with or without assistive devices. 4-Szyyivvhhi-zikysup completes the activity by him/herself with no assistance from a helper. 5-Set-up or Clean-up Assistance-helper sets up or cleans up; patient completes activity. [place] assists only prior to or following the activity. 4-Supervision or Touching Assistance-helper provides verbal cues and/or touching/steadying and/or contact guard assistance as patient completes activity. Assistance may be provided throughout the activity or intermittently. 3-Partial/Moderate Assistance-helper does LESS THAN HALF the effort. [place] lifts, holds or supports trunk or limbs, but provides less than half the effort. 2-Substantial/Maximal Assistance-helper does MORE THAN HALF the effort. [place] lifts or holds trunk or limbs and provides more than half the effort. 9-Btfydpggd-mtdgir does ALL the effort. Patient does none of the effort to complete the activity. Or, the assistance of 2 or more helpers is required for the patient to complete the activity. If activity was not attempted, code reason: 7-Patient Refused. 9-Not Applicable-not attempted and the patient did not perform the activity before the current illness, exacerbation or injury. 10-Not Attempted due to Environmental Limitations-(lack of equipment, weather restraints, etc.). 88-Not Attempted due to Medical Conditions or Safety Concerns. Roll Left & Right (QC): 3 Sit to Lying (QC): 1 Lying to Sitting/Side of Bed(Q: 1 Chair/Wfa-pr-Wglyz Xfer(QC): 1 Treatments Co-treat with OT ([id number]). 2 clinicians required for skilled instruction and care to increase mobility, overall strength, bed mobility and dynamic sitting balance. Pt supine at therapy arrival. Incontinent of Bowels and bladder. Multiple rolling R/L for guillermo care, placement of ck sling, and changing linens. Attempt at sitting EOB this date with goal to improve sitting balance, core strength, and upright posture. Dep x2 to sit EOB. Pt having difficulty maintaining balance without BUE support. Due to bed rails being too far apart for pt to hold, Recliner brought in front of patient and he was cued to use armrest as support. Heavy reliance on UE's to maintain upright posture. Once removing 1UE support, pt loses balance quickly. Dependent to position feet correctly on floor due to inability to lift RLE. Activity terminated due to poor tolerance. Pt returned to supine and then Transferred into w/c by use of ck. 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 Grooming tasks performed at w/ level. Pt unable to squeeze toothpaste secondary to weakness and also had difficulty lining up with toothbrush. Requires HOHA to complete. OT instructed pt on compensatory method to squeeze toothpaste directly into mouth vs attempting to line up with toothbrush. OT departs and PT continues tx. Pt completes Seated LE Ex at [facility] level. Pt rest in [facility] at end of tx with all needs met, call light in hand. Assessment Current Status: Poor Progress Pt fatigues very easily and demonstrates poor activity tolerance. PT Short Term Goals Short Term Goals Time Frame: Feb 17, 2021 Roll Left & Right: 3 Sit to lyin Lying to sitting on side of be: 3 Wheel 50ft w/2 turns: 4 Wheel 150 feet: 4 PT Fpc Goals Fpc Goals PT Studio Designer Goals Time Frame: Mar 03, 2021 Roll Left & Right (QC): 4 Sit to Lying (QC): 4 Lying-Sitting on Side/Bed(QC): 4 Sit to Stand (QC): 88 Chair/Ekz-uy-Mxefy Xfer(QC): 88 Toilet Transfer (QC): 88 Car Transfer (QC): 88 Does the Patient Walk: No and Walking Goal NOT indicated Walk 10 feet (QC): 88 Walk 50ft with 2 Turns (QC): 88 Walk 150 ft (QC): 88 Walking 10ft on Uneven Surface: 88 1 Step (curb) (QC): 88 4 Steps (QC): 88 12 Steps (QC): 88 Picking up an Object (QC): 88 Wheel 50 feet with 2 turns (QC: 6 Wheel 150 feet: 6 PT Plan Problem List Problem List: Activity Tolerance, Functional Strength, Transfer, Bed Mobility Treatment/Plan Treatment Plan: Continue Plan of Care Treatment Plan: Bed Mobility, Education, Functional Activity Jorge, Functional Strength, Group Therapy, Gait, Safety, Therapeutic Exercise, Transfers Treatment Duration: Mar 03, 2021 Frequency: At least 5 of 7 days/Wk (IRF) Estimated Hrs Per Day: 1.5 hours per day Patient and/or Family Agrees t: Yes Safety Risks/Education Patient Education: Transfer Techniques, Correct Positioning Teaching Recipient: Patient Teaching Methods: Discussion Response to Teaching: Reinforcement Needed Time/GCodes Time In: 1000 Time Out: 1130 Total Billed Treatment Time: 90 Total Billed Treatment Co-treat w/OT for 67m ([id number]) 1, FA x4 (60m) & EX x2 (30m) HENRIETTA VALENZUELA PERSONNEL CONSULTANT Mar 09, 2021 12:15
--- NOTE | 2021-03-09 12:29 | Occupational Ther Daily Note ---
OT Current Status-Daily Note Subjective pt denies pain, agreeable to Co-treat Appearance Left sitting in w/c, physical therapy in room. ADL-Treatment Therapy Code Descriptions/Definitions Functional [place] Measure: 0=Not Assessed/NA 4=Minimal Assistance 1=Total Assistance 5=Supervision or Setup 2=Maximal Assistance 6=Modified [place] 3=Moderate Assistance 7=Complete IndependenceSCALE: Activities may be completed with or without assistive devices. 0-Typypbivct-qyxydjt completes the activity by him/herself with no assistance from a helper. 5-Set-up or Clean-up Assistance-helper sets up or cleans up; patient completes activity. [place] assists only prior to or following the activity. 4-Supervision or Touching Assistance-helper provides verbal cues and/or touching/steadying and/or contact guard assistance as patient completes activit y. Assistance may be provided throughout the activity or intermittently. 3-Partial/Moderate Assistance-helper does LESS THAN HALF the effort. [place] lifts, holds or supports trunk or limbs, but provides less than half the effort. 2-Substantial/Maximal Assistance-helper does MORE THAN HALF the effort. [place] lifts or holds trunk or limbs and provides more than half the effort. 9-Kcprnxonl-yxvpei does ALL the effort. Patient does none of the effort to complete the activity. Or, the assistance of 2 or more helpers is required for the patient to complete the activity. If activity was not attempted, code reason: 7-Patient Refused. 9-Not Applicable-not attempted and the patient did not perform the activity before the current illness, exacerbation or injury. 10-Not Attempted due to Environmental Limitations-(lack of equipment, weather restraints, etc.). 88-Not Attempted due to Medical Conditions or Safety Concerns. Oral Hygiene (QC): 5 On/Off Footwear: 3 Toileting Hygiene (QC): 1 Toilet Transfer (QC): 1 Co-treat with PT ([id number]). 2 clinicians required for skilled instruction and care to increase mobility, overall strength, bed mobility and dynamic sitting balance. Pt supine at therapy arrival. Incontinent of Bowels and bladder. Multiple rolling R/L for guillermo care, placement of ck sling, and changing linens. Attempt at sitting EOB this date with goal to improve sitting balance, core strength, and upright posture. Dep x2 to sit EOB. Pt having difficulty maintaining balance without BUE support. Due to bed rails being too far apart for pt to hold, Recliner brought in front of patient and he was cued to use armrest as support. Heavy reliance on UE's to maintain upright posture. Once removing 1UE support, pt loses balance quickly. Dependent to position feet correctly on floor due to inability to lift RLE. Activity terminated due to poor tolerance. Pt returned to supine and then Transferred into w/c by use of ck. Last week, pt able to manage controls of ck, this date pt having difficulty maintaining nps/finger strength to maintain pushing down on button. Grooming tasks performed at w/c level. Pt unable to squeeze toothpaste secondary to weakness and also had difficulty lining up with toothbrush. Requires HOHA to complete. OT instructed pt on compensatory method to squeeze toothpaste directly into mouth vs attempting to line up with toothbrush. Education OT Patient Education: Correct positioning, Disease process, Energy conservation, Exercise program, Modified ADL techniques, Progress toward Goal/Update tx plan, Purpose of tx/functional activities, Reviewed precautions, Rehab process, Safety issues, Transfer techniques, W/C management Teaching Recipient: Patient Teaching Methods: Demonstration, Discussion Response to Teaching: Verbalize Understanding, Reinforcement Needed OT Short Term Goals Short Term Goals Time Frame: Feb 24, 2021 Eatin Oral hygiene: 4 Toileting hygiene: 2 Shower/bathe self: 2 Upper body dressin Lower body dressin Putting on/taking off footwear: 3 OT Change Analyst Goals Shelter Goals Time Frame: Mar 04, 2021 Eating (QC): 6 Oral Hygiene (QC): 5 Toileting Hygiene (QC): 4 Shower/Bathe Self (QC): 3 Upper Body Dressing (QC): 4 Lower Body Dressing (QC): 3 On/Off Footwear (QC): 4 1=Demonstrate adherence to instructed precautions during ADL tasks. 2=Patient will verbalize/demonstrate understanding of assistive devices/modifications for ADL. 3=Patient will improve strength/tolerance for activity to enable patient to perform ADL's. OT Education/Plan Problem List/Assessment Assessment: Decreased Activ Tolerance, Decreased Safety Aware, Decreased UE Strength, Dependent Transfers, Impaired Bed Mobility, Impaired Cognition, I mpaired Coordination, Impaired Funct Balance, Impaired I ADL's, Impaired Self- Care Skills, Restricted Funct UE ROM Discharge Recommendations Plan/Recommendations: Continue POC Treatment Plan/Plan of Care Treatment,Training & Education: Yes Patient would benefit from OT for education, treatment and training to promote independence in ADL's, mobility, safety and/or upper extremity function for ADL's. Plan of Care: ADL Retraining, Functional Mobility, Group Exercise/Act as Ind, UE Funct Exercise/Act, W/C Management Training Treatment Duration: Mar 04, 2021 Frequency: At least 5 of 7 days/Wk (IRF) Estimated Hrs Per Day: 1.5 hours per day Agreement: Yes Rehab Potential: Poor Time/GCodes Start Time: 10:00 Stop Time: 11:07 Total Time Billed (hr/min): 67 Billed Treatment Time 1 visit ADL x3 (50 min) FA (17 min) Antonieta Angel OT Mar 09, 2021 12:29
--- NOTE | 2021-03-09 15:38 | Occupational Ther Daily Note ---
OT Current Status-Daily Note Subjective Pt declines any pain, agreeable to treatment. Appearance Pt left supine in bed, all needs within reach. ADL-Treatment Therapy Code Descriptions/Definitions Functional [place] Measure: 0=Not Assessed/NA 4=Minimal Assistance 1=Total Assistance 5=Supervision or Setup 2=Maximal Assistance 6=Modified [place] 3=Moderate Assistance 7=Complete IndependenceSCALE: Activities may be completed with or without assistive devices. 3-Xtvgauvxza-niiguhm completes the activity by him/herself with no assistance from a helper. 5-Set-up or Clean-up Assistance-helper sets up or cleans up; patient completes activity. [place] assists only prior to or following the activity. 4-Supervision or Touching Assistance-helper provides verbal cues and/or touching/steadying and/or contact guard assistance as patient completes activity. Assistance may be provided throughout the activity or intermittently. 3-Partial/Moderate Assistance-helper does LESS THAN HALF the effort. [place] lifts, holds or supports trunk or limbs, but provides less than half the effort. 2-Substantial/Maximal Assistance-helper does MORE THAN HALF the effort. [place] lifts or holds trunk or limbs and provides more than half the effort. 1-Vnvbrxkph-xncfar does ALL the effort. Patient does none of the effort to complete the activity. Or, the assistance of 2 or more helpers is required for the patient to complete the activity. If activity was not attempted, code reason: 7-Patient Refused. 9-Not Applicable-not attempted and the patient did not perform the activity before the current illness, exacerbation or injury. 10-Not Attempted due to Environmental Limitations-(lack of equipment, weather restraints, etc.). 88-Not Attempted due to Medical Conditions or Safety Concerns. Pt participated in UE exercises with goal to improve strength, rom, and coordination for adls and transfers. 10 x2 in all planes. 2# hand held weight utilized for all RUE exercises, no resistance for LUE. Pt often fatigues on second set and requires AAROM to finish remaining 3-4 reps on Left. Several rest breaks needed after each exercise. Education OT Patient Education: Correct positioning, Exercise program, Progress toward Goal/Update tx plan, Purpose of tx/functional activities, Rehab process Teaching Recipient: Patient Teaching Methods: Demonstration, Discussion Response to Teaching: Verbalize Understanding, Return Demonstration OT Short Term Goals Short Term Goals Time Frame: Feb 24, 2021 Eatin Oral hygiene: 4 Toileting hygiene: 2 Shower/bathe self: 2 Upper body dressin Lower body dressin Putting on/taking off footwear: 3 OT Group Home Goals Entry Level Administrative Assistant Goals Time Frame: Mar 04, 2021 Eating (QC): 6 Oral Hygiene (QC): 5 Toileting Hygiene (QC): 4 Shower/Bathe Self (QC): 3 Upper Body Dressing (QC): 4 Lower Body Dressing (QC): 3 On/Off Footwear (QC): 4 1=Demonstrate adherence to instructed precautions during ADL tasks. 2=Patient will verbalize/demonstrate understanding of assistive devices/modifications for ADL. 3=Patient will improve strength/tolerance for activity to enable patient to perform ADL's. OT Education/Plan Problem List/Assessment Assessment: Decreased Activ Tolerance, Decreased Safety Aware, Decreased UE Strength, Dependent Transfers, Impaired Cognition, Impaired Coordination, Impaired Funct Balance, Impaired I ADL's, Impaired Self-Care Skills, Restricted Funct UE ROM Discharge Recommendations Plan/Recommendations: Continue POC Treatment Plan/Plan of Care Treatment,Training & Education: Yes Patient would benefit from OT for education, treatment and training to promote independence in ADL's, mobility, safety and/or upper extremity function for ADL's. Plan of Care: ADL Retraining, Functional Mobility, Group Exercise/Act as Ind, UE Funct Exercise/Act, W/C Management Training Treatment Duration: Mar 04, 2021 Frequency: At least 5 of 7 days/Wk (IRF) Estimated Hrs Per Day: 1.5 hours per day Agreement: Yes Rehab Potential: Poor Time/GCodes Start Time: 15:09 Stop Time: 15:32 Total Time Billed (hr/min): 23 Billed Treatment Time 1 visit EX Antonieta John OT Mar 09, 2021 15:38
[2021-03-09] MEDS: DIGOXIN 0.125 MG (LANOXIN) TAB PO SCH (17:02)
[2021-03-09] MEDS: TAMSULOSIN 0.4 MG (FLOMAX) CAP PO SCH (17:02)
[2021-03-09 19:37] VITALS: BP 111/57
[2021-03-09] MEDS: SIMvastatin 40 MG (ZOCOR) TAB PO SCH (21:05)
[2021-03-09] MEDS: MELATONIN 3 MG TABLET PO PRN (21:05)
[2021-03-10] MEDS: inSUlin ASPART (NovoLOG) 1 UNIT/0.01 ML (CHARGE PER UNIT) SC SCH ×4 (06:02→20:55)
[2021-03-10] MEDS: KCL 10 MEQ TAB (MICRO K) PO SCH (06:43)
[2021-03-10] MEDS: LEVOTHYROXINE 100 MCG (LEVOTHROID) TAB PO SCH (06:43)
[2021-03-10] MEDS: BETHANECHOL 10 MG (URECHOLINE) TAB PO SCH ×4 (06:43→20:56)
[2021-03-10] MEDS: MULTIVIT W/MINERALS TAB (THERAGRAN M) PO SCH (06:43)
[2021-03-10 08:00] VITALS: BP 103/49
[2021-03-10] MEDS: FERROUS SULF 325 MG (IRON) TAB PO SCH (09:19)
[2021-03-10] MEDS: APIXABAN 5 MG (ELIQUIS) TABLET PO SCH ×2 (09:19→20:56)
[2021-03-10] MEDS: FAMOTIDINE 20 MG (PEPCID) TABLET PO SCH (09:19)
[2021-03-10] MEDS: LOSARTAN 50 MG (COZAAR) TAB PO SCH (09:20)
[2021-03-10] MEDS: CALCIUM CARB + VIT D 600 MG (CALCARB + D) TAB PO SCH (09:20)
[2021-03-10] MEDS: lisINopril 10 MG (PRINIVIL) TABLET PO SCH (09:20)
[2021-03-10] MEDS: MAGNESIUM OXIDE (MAG-OX)400 MG TAB PO SCH (09:20)
[2021-03-10] MEDS: FUROSEMIDE 20 MG (LASIX) TAB PO SCH (09:20)
[2021-03-10] MEDS: OMEGA 3 (FISH OIL) 1000 MG CAP PO SCH ×2 (09:20→20:56)
[2021-03-10] MEDS: meTOprolol SUCCINATE 100 MG (TOPROL XL) TAB PO SCH (09:21)
--- NOTE | 2021-03-10 09:26 | Occupational Ther Daily Note ---
OT Current Status-Daily Note Subjective Pt continues to deny pain. Agreeable to treatment. OT/PT co-treat for part of session ([id number]), 2 clinicians required for skilled instruction and care to increase mobility, overall strength, bed mobility and dynamic sitting balance. Appearance Pt left sitting in w/c, all needs within reach. ADL-Treatment Therapy Code Descriptions/Definitions Functional [place] Measure: 0=Not Assessed/NA 4=Minimal Assistance 1=Total Assistance 5=Supervision or Setup 2=Maximal Assistance 6=Modified [place] 3=Moderate Assistance 7=Complete IndependenceSCALE: Activities may be completed with or without assistive devices. 3-Fuzjrezmwt-jbeoixf completes the activity by him/herself with no assistance from a helper. 5-Set-up or Clean-up Assistance-helper sets up or cleans up; patient completes activity. [place] assists only prior to or following the activity. 4-Supervision or Touching Assistance-helper provides verbal cues and/or touching /steadying and/or contact guard assistance as patient completes activity. Assistance may be provided throughout the activity or intermittently. 3-Partial/Moderate Assistance-helper does LESS THAN HALF the effort. [place] lifts, holds or supports trunk or limbs, but provides less than half the effort. 2-Substantial/Maximal Assistance-helper does MORE THAN HALF the effort. [place] lifts or holds trunk or limbs and provides more than half the effort. 8-Cmprfeyrg-wcuzwx does ALL the effort. Patient does none of the effort to complete the activity. Or, the assistance of 2 or more helpers is required for the patient to complete the activity. If activity was not attempted, code reason: 7-Patient Refused. 9-Not Applicable-not attempted and the patient did not perform the activity before the current illness, exacerbation or injury. 10-Not Attempted due to Environmental Limitations-(lack of equipment, weather restraints, etc.). 88-Not Attempted due to Medical Conditions or Safety Concerns. Oral Hygiene (QC): 4 Shower/Bathe Self (QC): 3 Lower Body Dressing (QC): 1 On/Off Footwear: 3 Toileting Hygiene (QC): 1 Toilet Transfer (QC): 1 Pt transferred to shower w/c by use of ck. Shower performed; 100% completed in sitting. Pt requires use of grab bar to bring self forward throughout task. He was able to wash upper body, guillermo area, and thighs with SBA/supervision. Cue to utilize LHS in order to wash below knees. Min a only for thoroughness on R foot. Post shower, pt incontinent of bowels. He was returned to supine, dependent for guillermo care. New ck sling placed and pt transferred again to w/c. Grooming tasks completed at w/c level. Attempt again at removing back/trunk support in effort to promote trunk control/core strength. Pt unable to tolerate, support replaced behind patient. He was able to squeeze toothpaste this date, but instead of lining up with toothbrush or squeezing directly into mouth (compensatory technique taught during previous session), pt squeezed onto finger and then placed into mouth. No assist required. Other Treatment Pt participated in UE exercises with goal to improve strength, rom, and coord ination for adls and transfers. 10 x2 in all planes. 2# hand held weight utilized for all RUE exercises, no resistance for LUE. Pt often fatigues on second set and requires AAROM to finish remaining 3-4 reps on Left. Several rest breaks needed after each exercise. Pt often needing assist for maintaining control of L wrist. Unsure at this time if this is muscle weakness or nerve rel ated. Education OT Patient Education: Correct positioning, Disease process, Energy conservatio n, Exercise program, Modified ADL techniques, Progress toward Goal/Update tx plan, Purpose of tx/functional activities, Reviewed precautions, Rehab process, Safety issues, Transfer techniques, Use of adapted equipment, W/C management Teaching Recipient: Patient Teaching Methods: Demonstration, Discussion Response to Teaching: Verbalize Understanding, Return Demonstration, Reinforcement Needed OT Short Term Goals Short Term Goals Time Frame: Feb 24, 2021 Eatin Oral hygiene: 4 Toileting hygiene: 2 Shower/bathe self: 2 Upper body dressin Lower body dressin Putting on/taking off footwear: 3 OT Car Seat Upholsterer Goals Fpc Goals Time Frame: Mar 04, 2021 Eating (QC): 6 Oral Hygiene (QC): 5 Toileting Hygiene (QC): 4 Shower/Bathe Self (QC): 3 Upper Body Dressing (QC): 4 Lower Body Dressing (QC): 3 On/Off Footwear (QC): 4 1=Demonstrate adherence to instructed precautions during ADL tasks. 2=Patient will verbalize/demonstrate understanding of assistive devices/modifications for ADL. 3=Patient will improve strength/tolerance for activity to enable patient to perform ADL's. OT Education/Plan Problem List/Assessment Assessment: Decreased Activ Tolerance, Decreased Safety Aware, Decreased UE Strength, Dependent Transfers, Impaired Bed Mobility, Impaired Cognition, Impaired Coordination, Impaired Funct Balance, Impaired I ADL's, Impaired Self- Care Skills, Restricted Funct UE ROM Discharge Recommendations Plan/Recommendations: Continue POC Treatment Plan/Plan of Care Treatment,Training & Education: Yes Patient would benefit from OT for education, treatment and training to promote independence in ADL's, mobility, safety and/or upper extremity function for ADL's. Plan of Care: ADL Retraining, Functional Mobility, Group Exercise/Act as Ind, UE Funct Exercise/Act, W/C Management Training Treatment Duration: Mar 04, 2021 Frequency: At least 5 of 7 days/Wk (IRF) Estimated Hrs Per Day: 1.5 hours per day Agreement: Yes Rehab Potential: Poor Time/GCodes Start Time: 08:00 Stop Time: 09:30 Total Time Billed (hr/min): 90 Billed Treatment Time 1 visit, ADL x4 (60 min) EX x2 (30 min) Co-treat with PT for 60 min Antonieta Angel OT Mar 10, 2021 09:26
[2021-03-10] MEDS: SENNA W/DOCUSATE (SENOKOT S) TABLET PO SCH ×2 (09:29→20:06)
[2021-03-10] MEDS: polyethylene glycoL POWDER 17 GM (MIRALAX) PACK PO SCH ×2 (09:29→20:06)
[2021-03-10] MEDS: DOCUSATE SODIUM 100 MG (COLACE) CAP PO SCH ×2 (09:29→20:06)
--- NOTE | 2021-03-10 09:37 | Occ Therapy Rehab Re-Cert ---
OT Re-Certification Form Plan of Care: ADL Retraining, Functional Mobility, Group Exercise/Act as Ind, UE Funct Exercise/Act, W/C Management Training Goals updated and time frame extended. Frequency: At least 5 of 7 days/Wk (IRF) Estimated Hrs Per Day: 1.5 hours per day Agreement: Yes Rehab Potential: Poor OT Short Term Goals Short Term Goals Time Frame: Feb 24, 2021 Eatin Oral hygiene: 4 Toileting hygiene: 2 Shower/bathe self: 2 Upper body dressin Lower body dressin Putting on/taking off footwear: 3 OT Senior Living Goals Senior Living Goals Time Frame: Mar 25, 2021 Eating (QC): 5 Oral Hygiene (QC): 5 Toileting Hygiene (QC): 2 Shower/Bathe Self (QC): 3 (min) Upper Body Dressing (QC): 2 Lower Body Dressing (QC): 2 On/Off Footwear (QC): 3 (min) 1=Demonstrate adherence to instructed precautions during ADL tasks. 2=Patient will verbalize/demonstrate understanding of assistive devices/modifications for ADL. 3=Patient will improve strength/tolerance for activity to enable patient to perform ADL's. Antonieta Angel OT Mar 10, 2021 09:37
--- NOTE | 2021-03-10 10:02 | Physical Therapy Daily Note ---
PT Daily Note-Current Subjective Pt laying supine in bed upon arrival. Pt agrees to PT/OT co-treat. Pain Location: No Pain Reported Mental Status Patient Orientation: Person, Place, Situation Transfers SCALE: Activities may be completed with or without assistive devices. 5-Lqubbnjyna-hdlpsfx completes the activity by him/herself with no assistance from a helper. 5-Set-up or Clean-up Assistance-helper sets up or cleans up; patient completes activity. [place] assists only prior to or following the activity. 4-Supervision or Touching Assistance-helper provides verbal cues and/or touching/steadying and/or contact guard assistance as patient completes activity. Assistance may be provided throughout the activity or intermittently. 3-Partial/Moderate Assistance-helper does LESS THAN HALF the effort. [place] lifts, holds or supports trunk or limbs, but provides less than half the effort. 2-Substantial/Maximal Assistance-helper does MORE THAN HALF the effort. [place] lifts or holds trunk or limbs and provides more than half the effort. 2-Itisfiqni-hpchvw does ALL the effort. Patient does none of the effort to co mplete the activity. Or, the assistance of 2 or more helpers is required for the patient to complete the activity. If activity was not attempted, code reason: 7-Patient Refused. 9-Not Applicable-not attempted and the patient did not perform the activity before the current illness, exacerbation or injury. 10-Not Attempted due to Environmental Limitations-(lack of equipment, weather restraints, etc.). 88-Not Attempted due to Medical Conditions or Safety Concerns. Sit to Stand (QC): 1 Chair/Mbn-od-Lfeji Xfer(QC): 1 Treatments Pt transferred to shower w/c by use of coleen. Shower performed; 100% completed in sitting. Pt requires use of grab bar to bring self forward throughout task. He was able to wash upper body, guillermo area, and thighs with SBA/supervision. Cue to utilize LHS in order to wash below knees. Min A only for thoroughness on R foot. Post shower, pt incontinent of bowels. He was returned to supine, dependent for guillermo care. New coleen sling placed and pt transferred again to w/c. Grooming tasks completed at w/c level. Attempt again at removing back/trunk support in effort to promote trunk control/core strength. Pt unable to tolerate, support replaced behind patient. He was able to squeeze toothpaste this date, but instead of lining up with toothbrush or squeezing directly into mouth (compensatory technique taught during previous session), pt squeezed onto finger and then placed into mouth. No assist required. Pt resting in H at end of tx with all needs met. PT departs but OT continues tx at this time. Assessment Current Status: Poor Progress Pt is dependent with transfers and fatigues easily. Coleen is used for transfers at this time. PT Short Term Goals Short Term Goals Time Frame: Feb 17, 2021 Roll Left & Right: 3 Sit to lyin Lying to sitting on side of be: 3 Wheel 50ft w/2 turns: 4 Wheel 150 feet: 4 PT Chcf Goals Chcf Goals PT [employer] Goals Time Frame: Mar 03, 2021 Roll Left & Right (QC): 4 Sit to Lying (QC): 4 Lying-Sitting on Side/Bed(QC): 4 Sit to Stand (QC): 88 Chair/Fus-th-Ethuz Xfer(QC): 88 Toilet Transfer (QC): 88 Car Transfer (QC): 88 Does the Patient Walk: No and Walking Goal NOT indicated Walk 10 feet (QC): 88 Walk 50ft with 2 Turns (QC): 88 Walk 150 ft (QC): 88 Walking 10ft on Uneven Surface: 88 1 Step (curb) (QC): 88 4 Steps (QC): 88 12 Steps (QC): 88 Picking up an Object (QC): 88 Wheel 50 feet with 2 turns (QC: 6 Wheel 150 feet: 6 PT Plan Problem List Problem List: Activity Tolerance, Functional Strength, Balance, Transfer Treatment/Plan Treatment Plan: Continue Plan of Care Treatment Plan: Bed Mobility, Education, Functional Activity Jorge, Functional Strength, Group Therapy, Gait, Safety, Therapeutic Exercise, Transfers Treatment Duration: Mar 03, 2021 Frequency: At least 5 of 7 days/Wk (IRF) Estimated Hrs Per Day: 1.5 hours per day Patient and/or Family Agrees t: Yes Time/GCodes Time In: 800 Time Out: 900 Total Billed Treatment Time: 60 Total Billed Treatment Co-treat w/OT for 60m (800-900) 1, FA x4 (60m) HENRIETTA VALENZUELA DIGITAL ASSOCIATE Mar 10, 2021 10:02
--- NOTE | 2021-03-10 10:04 | PM&R Progress Note ---
Subjective HPI/CC On Admission Date Seen by Provider: Mar 10, 2021 Time Seen by Provider: 10:15 Subjective/Events-last exam 03/10/2021: No major issues Setting up long-term for discharge No significant changes in status Bowels are loose 03/09/2021: Patient doing well No major issues Bowels are moving Check meds and labs Continuing to await for information from insurance for approval from [facility] 03/08/2021: Met with patient and family with son and ex- at bedside and 1 son on phone from [place]. 25-minute conversation ensued. 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 After detailed update on what we know and the possible plan family decided to pursue [facility] so we did submit that to insurance Son on phone in [place] could not understand why " no one is doing anything for him" and completely dissatisfied with all the care he is received from [facility] to [facility]. Tried to reassure patient and family and son on phone but very difficult to redirect son from negative statements. 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 03/07/21: Pt doing well Subtle change in his overall demeanor, he appears to be a bit more frightened and debilitated MRI has just come to bring him down for cervical and thoracic spine with and without IV contrast for [facility] to Review No BM for the last couple of days so will initiate laxatives Labs okay overall 03/06/2021: Patient doing well Sleeping well Spoke to Amy at [facility] as requested by social worker health services and I have placed orders for MRI with and without IV contrast of cervical and thoracic spine and will need to have those clouded up into the system from [facility] to review then hopefully video consultation will ensue No other concerns 03/05/2021: Patient doing well No major concerns [facility] appears to be willing to do a video visit We will likely need to do another MRI so will contact Amy at [facility] at [phone] on Sunday in order to order the MRI that they want then will co mmunicate regarding the visit after that 03/04/21: Pt doing well No significant complaints per nursing staff Still working with therapy Checked meds and labs 03/03/2021: Patient doing well No straight cath needed Sugars are good Bowels are moving well Check meds and labs 03/02/2021: Patient doing well Holding Detrol due to incontinence Bowels are moving Straight cath required Sent all records to PCP from [id number] and recommended him to stay in the rehab 03/01/21: Awaiting NH placement In/out cath required multiple times so will reach out to Dr Blaise AG yesterday Checked meds and labs 02/28/21: Patient doing well Labs reviewed No pain reported Spoke to Dr Kennedy his PCP and updated him on everything about the case and the need to f/u [facility] referral Will fax all records to him at [phone] so he can have all of the records also Incontinence noted BM+ 02/27/21: Patient doing well We will speak to his primary care provider before he is discharged to the long-term to be sure he can follow-up on [facility] referral Bowels moved today Glucose 168 Check meds and labs 02/26/2021: Patient doing well Discussed [facility] referral senior care being arranged in meantime Bowels are moving well 02/25/2021: Miscommunication with [facility] in it does not appear that it will be a hospital hospital transfer Remains a Coleen lift Son here for family education Denies any new issues 02/24/2021: [facility] had reached out and reviewed the case and it appeared that he was in the midst of being accepted. Patient very excited about the chance to go to [facility] Denies any issues Still a Coleen lift 02/23/2021: Patient doing well Required in and out caths yesterday due to 490 retention Detrol has been started by urology [facility] still in process Bed mobility improved 02/22/2021: Patient doing well Urology started Detrol for incontinence [facility] pending Bowels are moving well Still requiring Coleen lift 02/21/2021: Patient reports no significant concerns Bladder scanning per urology rec No word from [facility] Incontinent of bowel today Labs look good 02/20/2021: Patient has no new complaints today Denies any new issues No pain is reported Incontinence is an issue Fecal incontinence also an issue 02/19/2021: Patient had an uneventful night Denies any new issues Working on bladder retraining Check meds and labs 02/18/2021: Patient doing well Has no complaints Cystoscopy to be done today by urology No pain is reported Bowel evacuation ordered 02/17/2021: Patient doing really well Bowels moved yesterday All records sent to [facility] Has no rectal tone May need a suppository to evacuate bowels and treated like a paraplegic Bottom wound appears to be very superficial on a cushion 02/16/2021: Pt doing well No issues Bowels moved yesterday and fecal incontinence Frausto cath in Cystoscopy by Dr. Welsh on Sunday02/15/2021: Pt doing a little better Frausto required and Dr. Welsh consulted Spot checks of oxygen without CPAP during the night are okay Still a Coleen-lift 02/14/2021: Pt doing well Condom catheter will be attempted Platelet count 108 Wound looks good BP and blood sugar good No pain Bowels are moving 02/13/2021: Patient doing well Has no needs Bowels are moving well No issues Sugars are reviewed 02/12/2021: Patient doing well Incontinent of bowel and bladder a lot Able to move himself and turn himself in bed Check meds and labs Cognitive deficit could preclude independent living 02/11/2021: Patient doing pretty well Dr. Rubio will be consulted Noncompliant with CPAP machine Oxygen was good last night at 90% Wound care consulted Dr. Edenilson Prakash good Bowels are a bit loose and he does have fecal incontinence Review of Systems General: Fatigue, Malaise Neurological: Weakness, Incoordination Objective Exam Vital Signs Vital Signs Date Time Temp Pulse Resp B/P (MAP) Pulse Ox O2 Delivery O2 Flow Rate FiO2 03/10/21 20:00 Room Air 03/10/21 19:36 36.4 88 20 120/57 (78) 96 Capillary Refill : General Appearance: No Apparent Distress, WD/WN, Chronically ill HEENT: PERRL/EOMI, Normal ENT Inspection, Pharynx Normal Neck: Full Range of Motion, Normal Inspection, Non Tender, Supple, Carotid Bruit Respiratory: Chest Non Tender, Lungs Clear, Normal Breath Sounds, No Accessory Muscle Use, No Respiratory Distress Cardiovascular: Regular Rate, Rhythm, No Edema, No Gallop, No JVD, No Murmur, Normal Peripheral Pulses Gastrointestinal: Normal Bowel Sounds, No Organomegaly, No Pulsatile Mass, Non Tender, Soft Back: Normal Inspection, No CVA Tenderness, No Vertebral Tenderness Extremity: Normal Capillary Refill, Normal Inspection, Normal Range of Motion, Non Tender, No Calf Tenderness, No Pedal Edema Neurologic/Psychiatric: Alert, Oriented x3, Normal Mood/Affect, stone layer II-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 FIM Transfers Therapy Code Descriptions/Definitions Functional Geraldine Measure: 0=Not Assessed/NA 4=Minimal Assistance 1=Total Assistance 5=Supervision or Setup 2=Maximal Assistance 6=Modified Geraldine 3=Moderate Assistance 7=Complete IndependenceSCALE: Activities may be completed with or without assistive devices. 4-Sjiqxetess-wlpxxhk completes the activity by him/herself with no assistance from a helper. 5-Set-up or Clean-up Assistance-helper sets up or cleans up; patient completes activity. [place] assists only prior to or following the activity. 4-Supervision or Touching Assistance-helper provides verbal cues and/or touching/steadying and/or contact guard assistance as patient completes ac tivity. Assistance may be provided throughout the activity or intermittently. 3-Partial/Moderate Assistance-helper does LESS THAN HALF the effort. [place] lifts, holds or supports trunk or limbs, but provides less than half the effort. 2-Substantial/Maximal Assistance-helper does MORE THAN HALF the effort. [place] lifts or holds trunk or limbs and provides more than half the effort. 7-Tmehpxvmw-kgfxsv does ALL the effort. Patient does none of the effort to complete the activity. Or, the assistance of 2 or more helpers is required for the patient to complete the activity. If activity was not attempted, code reason: 7-Patient Refused. 9-Not Applicable-not attempted and the patient did not perform the activity before the current illness, exacerbation or injury. 10-Not Attempted due to Environmental Limitations-(lack of equipment, weather restraints, etc.). 88-Not Attempted due to Medical Conditions or Safety Concerns. Roll Left to Right (QC): 3 Sit to Lying (QC): 1 Sit to Stand (QC): 1 Chair/Xss-bs-Ohfkt Xfer(QC): 1 Car Transfer (QC): 88 Gait Training Does the Patient Walk?: No and Walking Goal NOT indicated Walk 10 feet (QC): 88 Walk 50 ft with 2 Turns(QC): 88 Walk 150 ft (QC): 88 Walking 10ft/uneven surface-QC: 88 Wheelchair Training Does the Pt Use a Wheelchair?: Yes Distance: 100'x2 Wheel 50 ft with 2 turns (QC): 3 Wheel 150 ft (QC): 3 Type of Wheelchair: Manual Stair Training 1 Step (curb) (QC): 88 4 Steps (QC): 88 12 Steps (QC): 88 Balance Picking up an Object (QC): 88 ADL-Treatment Eating (QC): 6 (Pt able to complete own meal set up and use regular utensils to eat.) Oral Hygiene (QC): 4 Bathing Location: L Arm, R Arm, L Upper Leg, R Upper Leg, L Lower Leg (including foot), R Lower Leg (including foot), Chest, Abdomen, Perineal Area Shower/Bathe Self (QC): 3 Upper Body Dressing (QC): 3 Lower Body Dressing (QC): 1 On/Off Footwear (QC): 3 Toileting Hygiene (QC): 1 Toilet Transfer (QC): 1 Assessment/Plan Assessment and Plan Assess & Plan/Chief Complaint Assessment: 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 and subsequent neurological deficits Lumbar L4-L5 subarticular recess narrowing B/L Left-sided weakness Hepatic Hemangioma Systolic Heart Failure LFT elevation LBBB Previous hypotension Obesity CAD Dementia/cognitive impairment GERD PUD PVD Diabetic polyneuropathy Progressive weakness High risk of falling Gait disturbance Spasticity T2DM Constipation Edema HTN Paroxysmal A-fib Thrombocytopenia Urinary Retention Status post UTI (resolved) BAM on CPAP Cystoscopy on 02/18/2021 Plan: Aggressive PT, OT, and speech therapy Order basic lab work in the morning Review records, talk to his family members as they are more in tune with his medical condition then the patient himself Neurology follow up Consult Dr. Rubio for A. fib 02/11/2021: Supportive care Dr. Rubio consult Poor memory recall noted 02/12/2021: Incontinence care Aggressive therapy 02/13/2021: Incontinence care Aggressive therapy 02/14/2021: Attempt condom catheter due to incontinence Monitor for retention Dr. Welsh consult 02/15/2021: Appreciate urology management Aggressive therapy Send records to [facility] 02/16/2021: Supportive care Send records to [facility] from [facility] Continue aggressive treatment Cystoscopy tomorrow 02/17/2021: Cystoscopy tomorrow Bowel evacuation 02/18/2021: Cystoscopy Appreciate urology 02/19/2021: Supportive care Urology appreciated 02/20/2021: Supportive care Incontinence care 02/21/2021: Supportive care Incontinence care Appreciate urology 02/22/2021: Detrol for incontinence Appreciate urology Continue aggressive treatment 02/23/2021 Patient will need nursing care at discharge Appreciate urology 02/24/2021: [facility] transfer? Continue aggressive therapy 02/25/2021: senior care admission [facility] still pending 02/26/2021: Await long-term placement [facility] referral 02/27/21: Monitor closely Await NH placement Will speak to Dr Kennedy 02/28/21: Updated PCP Will send records NHP 03/01/21: Await placement Send records to Dr Kennedy 03/02/2021: Discontinue Detrol Supportive care 03/03/2021: Patient doing well Maintain urology management 03/04/21: Monitor weakness Sugar management 03/05/2021: We will contact [facility] on Sunday for additional MRIs 03/06/2021: Ordered MRI with and without IV contrast of cervical and thoracic spine per [facility] request that will be done tomorrow 03/07/2021: Review MRI Disposition 03/08/2021: Family meeting for 25 minutes Additional 30 minutes in review of scans and review of data 03/09/2021: Continue aggressive therapy Await [facility] decision from insurance 03/10/2021: Continue aggressive therapy senior care discharge (1) Cervical spinal cord compression (2) Atrial fibrillation (3) Anticoagulation adequate with anticoagulant therapy (4) Urinary retention CARMELLA ESTRADA DO Mar 10, 2021 10:04
--- NOTE | 2021-03-10 14:06 | Physical Therapy Daily Note ---
PT Daily Note-Current Subjective Pt laying Supine in bed upon arrival. Pt agrees to PT. Pain Location: No Pain Reported Mental Status Patient Orientation: Person, Place, Situation Transfers SCALE: Activities may be completed with or without assistive devices. 0-Qaxxujhgyr-jlfxacr completes the activity by him/herself with no assistance from a helper. 5-Set-up or Clean-up Assistance-helper sets up or cleans up; patient completes activity. [place] assists only prior to or following the activity. 4-Supervision or Touching Assistance-helper provides verbal cues and/or touching/steadying and/or contact guard assistance as patient completes activity. Assistance may be provided throughout the activity or intermittently. 3-Partial/Moderate Assistance-helper does LESS THAN HALF the effort. Page lifts, holds or supports trunk or limbs, but provides less than half the effort. 2-Substantial/Maximal Assistance-helper does MORE THAN HALF the effort. [place] lifts or holds trunk or limbs and provides more than half the effort. 1-Liuqpnmqh-lzhwuc does ALL the effort. Patient does none of the effort to complete the activity. Or, the assistance of 2 or more helpers is required for the patient to complete the activity. If activity was not attempted, code reason: 7-Patient Refused. 9-Not Applicable-not attempted and the patient did not perform the activity before the current illness, exacerbation or injury. 10-Not Attempted due to Environmental Limitations-(lack of equipment, weather restraints, etc.). 88-Not Attempted due to Medical Conditions or Safety Concerns. Exercises Supine Ex: Ankle pumps, Quad Set, Glut sets, Heel Slides, Hip abd/add Supine Reps: 10 (AAROM for L LE, AROM for R LE) Treatments Pt completes Supine EX in bed with RB as needed. Pt resting at end of tx. All needs met, call light in hand. Assessment Current Status: Fair Progress Pt lacks strength on L LE and needs assist for EX. PT Short Term Goals Short Term Goals Time Frame: Feb 17, 2021 Roll Left & Right: 3 Sit to lyin Lying to sitting on side of be: 3 Wheel 50ft w/2 turns: 4 Wheel 150 feet: 4 PT Finisher Accordion Goals Finisher Accordion Goals PT [facility] Goals Time Frame: Mar 03, 2021 Roll Left & Right (QC): 4 Sit to Lying (QC): 4 Lying-Sitting on Side/Bed(QC): 4 Sit to Stand (QC): 88 Chair/Wbr-kt-Smoma Xfer(QC): 88 Toilet Transfer (QC): 88 Car Transfer (QC): 88 Does the Patient Walk: No and Walking Goal NOT indicated Walk 10 feet (QC): 88 Walk 50ft with 2 Turns (QC): 88 Walk 150 ft (QC): 88 Walking 10ft on Uneven Surface: 88 1 Step (curb) (QC): 88 4 Steps (QC): 88 12 Steps (QC): 88 Picking up an Object (QC): 88 Wheel 50 feet with 2 turns (QC: 6 Wheel 150 feet: 6 PT Plan Problem List Problem List: Activity Tolerance, Functional Strength Treatment/Plan Treatment Plan: Continue Plan of Care Treatment Plan: Bed Mobility, Education, Functional Activity Jorge, Functional Strength, Group Therapy, Gait, Safety, Therapeutic Exercise, Transfers Treatment Duration: Mar 03, 2021 Frequency: At least 5 of 7 days/Wk (IRF) Estimated Hrs Per Day: 1.5 hours per day Patient and/or Family Agrees t: Yes Safety Risks/Education Patient Education: Correct Positioning Teaching Recipient: Patient Teaching Methods: Discussion Response to Teaching: Verbalize Understanding Time/GCodes Time In: 1330 Time Out: 1400 Total Billed Treatment Time: 30 Total Billed Treatment 1, EX x2 (30m) HENRIETTA VALENZUELA PTA Mar 10, 2021 14:06
[2021-03-10] MEDS: DIGOXIN 0.125 MG (LANOXIN) TAB PO SCH (17:13)
[2021-03-10] MEDS: TAMSULOSIN 0.4 MG (FLOMAX) CAP PO SCH (17:13)
[2021-03-10] MEDS: ARTIFICAL TEARS 0.4 ML UNIT DOSE (REFRESH PLUS) OU PRN (17:30)
[2021-03-10 19:36] VITALS: BP 120/57
[2021-03-10] MEDS: SIMvastatin 40 MG (ZOCOR) TAB PO SCH (20:56)
[2021-03-10] MEDS: MELATONIN 3 MG TABLET PO PRN (20:56)
[2021-03-11] MEDS: inSUlin ASPART (NovoLOG) 1 UNIT/0.01 ML (CHARGE PER UNIT) SC SCH ×4 (06:29→21:23)
[2021-03-11] MEDS: LEVOTHYROXINE 100 MCG (LEVOTHROID) TAB PO SCH (06:32)
[2021-03-11] MEDS: MULTIVIT W/MINERALS TAB (THERAGRAN M) PO SCH (06:32)
[2021-03-11] MEDS: BETHANECHOL 10 MG (URECHOLINE) TAB PO SCH ×4 (06:32→21:18)
[2021-03-11] MEDS: KCL 10 MEQ TAB (MICRO K) PO SCH (06:32)
[2021-03-11 07:50] VITALS: BP 107/57
[2021-03-11] MEDS: lisINopril 10 MG (PRINIVIL) TABLET PO SCH (08:20)
[2021-03-11] MEDS: LOSARTAN 50 MG (COZAAR) TAB PO SCH (08:20)
[2021-03-11] MEDS: OMEGA 3 (FISH OIL) 1000 MG CAP PO SCH ×2 (08:20→21:18)
[2021-03-11] MEDS: CALCIUM CARB + VIT D 600 MG (CALCARB + D) TAB PO SCH (08:20)
[2021-03-11] MEDS: APIXABAN 5 MG (ELIQUIS) TABLET PO SCH ×2 (08:20→21:18)
[2021-03-11] MEDS: FERROUS SULF 325 MG (IRON) TAB PO SCH (08:21)
[2021-03-11] MEDS: FUROSEMIDE 20 MG (LASIX) TAB PO SCH (08:21)
[2021-03-11] MEDS: meTOprolol SUCCINATE 100 MG (TOPROL XL) TAB PO SCH (08:22)
[2021-03-11] MEDS: FAMOTIDINE 20 MG (PEPCID) TABLET PO SCH (08:22)
[2021-03-11] MEDS: SENNA W/DOCUSATE (SENOKOT S) TABLET PO SCH ×2 (08:23→21:15)
[2021-03-11] MEDS: polyethylene glycoL POWDER 17 GM (MIRALAX) PACK PO SCH ×2 (08:23→21:15)
[2021-03-11] MEDS: DOCUSATE SODIUM 100 MG (COLACE) CAP PO SCH ×2 (08:23→21:15)
[2021-03-11] MEDS: MAGNESIUM OXIDE (MAG-OX)400 MG TAB PO SCH (08:23)
[2021-03-11] MEDS: ARTIFICAL TEARS 0.4 ML UNIT DOSE (REFRESH PLUS) OU PRN (08:35)
--- NOTE | 2021-03-11 09:56 | Physical Therapy Daily Note ---
PT Daily Note-Current Subjective Patient in bed pre tx, agrees to PT, has no complaints of pain. Will be co- treating with OT due to poor patient mobility, strength, endurance, poor trunk strength and control, coordinate UE and LE during activity, safety and reduce risk of falls. Appearance Patient in bed post tx with nurse call, phone, tray, all needs met. Mental Status Patient Orientation: Person, Place, Situation Transfers SCALE: Activities may be completed with or without assistive devices. 6-Fxxvgwkijz-oeftsvy completes the activity by him/herself with no assistance from a helper. 5-Set-up or Clean-up Assistance-helper sets up or cleans up; patient completes activity. [place] assists only prior to or following the activity. 4-Supervision or Touching Assistance-helper provides verbal cues and/or touching/steadying and/or contact guard assistance as patient completes activity. Assistance may be provided throughout the activity or intermittently. 3-Partial/Moderate Assistance-helper does LESS THAN HALF the effort. [place] lifts, holds or supports trunk or limbs, but provides less than half the effort. 2-Substantial/Maximal Assistance-helper does MORE THAN HALF the effort. [place] lifts or holds trunk or limbs and provides more than half the effort. 6-Ioerumeal-hhjxkw does ALL the effort. Patient does none of the effort to complete the activity. Or, the assistance of 2 or more helpers is required for the patient to complete the activity. If activity was not attempted, code reason: 7-Patient Refused. 9-Not Applicable-not attempted and the patient did not perform the activity before the current illness, exacerbation or injury. 10-Not Attempted due to Environmental Limitations-(lack of equipment, weather restraints, etc.). 88-Not Attempted due to Medical Conditions or Safety Concerns. Roll Left & Right (QC): 3 Chair/Skt-zc-Bszrq Xfer(QC): 1 Patient needs cleaned up a bit from urine and then rolls to the left side with SBA, ck sling is placed, rolls to the right side with min assist and then ck sling placement is completed. Patient is hoyered to WC. Later when he gets back to his room he is hoyered back to bed and has to roll to each side to remove sling. Wheelchair Training Wheel 50 ft with 2 turns (QC): 4 Type of Wheelchair: Manual 100'x2, patient has to take several rest breaks each way to and from therapy gym, very slow Exercises pre-standing activity in parallel bars bearing weight through legs 2 sets of 10, manually resisted leg press 3 sets of 10, attempted standing in parallel bars but patient is still dependent for that Treatments PT performed bed mobility, rolling, transfers, WC mobility, LE strengthening, OT performed cleaning, UE positioning and safety during activity, assisted with transfers and leg press Assessment Current Status: Poor Progress no change in mobility PT Short Term Goals Short Term Goals Time Frame: Feb 17, 2021 Roll Left & Right: 3 Sit to lyin Lying to sitting on side of be: 3 Wheel 50ft w/2 turns: 4 Wheel 150 feet: 4 PT Salt [employer] Operator Goals Residential Goals PT Residential Goals Time Frame: Mar 03, 2021 Roll Left & Right (QC): 4 Sit to Lying (QC): 4 Lying-Sitting on Side/Bed(QC): 4 Sit to Stand (QC): 88 Chair/Ohq-hr-Waxzl Xfer(QC): 88 Toilet Transfer (QC): 88 Car Transfer (QC): 88 Does the Patient Walk: No and Walking Goal NOT indicated Walk 10 feet (QC): 88 Walk 50ft with 2 Turns (QC): 88 Walk 150 ft (QC): 88 Walking 10ft on Uneven Surface: 88 1 Step (curb) (QC): 88 4 Steps (QC): 88 12 Steps (QC): 88 Picking up an Object (QC): 88 Wheel 50 feet with 2 turns (QC: 6 Wheel 150 feet: 6 PT Plan Problem List Problem List: Activity Tolerance, Functional Strength, Safety, Balance, Gait, Transfer, Bed Mobility, ROM Treatment/Plan Treatment Plan: Continue Plan of Care Treatment Plan: Bed Mobility, Education, Functional Activity Jorge, Functional Strength, Group Therapy, Gait, Safety, Therapeutic Exercise, Transfers Treatment Duration: Mar 03, 2021 Frequency: At least 5 of 7 days/Wk (IRF) Estimated Hrs Per Day: 1.5 hours per day Patient and/or Family Agrees t: Yes Safety Risks/Education Patient Education: Transfer Techniques, Correct Positioning, W/C Management, Safety Issues Teaching Recipient: Patient Teaching Methods: Demonstration, Discussion Response to Teaching: Reinforcement Needed Time/GCodes Time In: 0900 Time Out: 1000 Total Billed Treatment Time: 60 Total Billed Treatment 1 visit EX 20' FA 40' co-treated for 60' KRTEK,TARA PT Mar 11, 2021 09:56
--- NOTE | 2021-03-11 10:07 | Occupational Ther Daily Note ---
OT Current Status-Daily Note Subjective Pt denies pain, agreeable to co-treat. Will be co-treating with PT due to poor patient mobility, strength, endurance, poor trunk strength and control, coordinate UE and LE during activity, safety and reduce risk of falls. Appearance Pt left supine in bed, all needs within reach. ADL-Treatment Therapy Code Descriptions/Definitions Functional [place] Measure: 0=Not Assessed/NA 4=Minimal Assistance 1=Total Assistance 5=Supervision or Setup 2=Maximal Assistance 6=Modified [place] 3=Moderate Assistance 7=Complete IndependenceSCALE: Activities may be completed with or without assistive devices. 2-Ipjljzsoel-edegijo completes the activity by him/herself with no assistance from a helper. 5-Set-up or Clean-up Assistance-helper sets up or cleans up; patient completes activity. [place] assists only prior to or following the activity. 4-Supervision or Touching Assistance-helper provides verbal cues and/or touching/steadying and/or contact guard assistance as patient completes activity. Assistance may be provided throughout the activity or intermittently. 3-Partial/Moderate Assistance-helper does LESS THAN HALF the effort. [place] lifts, holds or supports trunk or limbs, but provides less than half the effort. 2-Substantial/Maximal Assistance-helper does MORE THAN HALF the effort. [place] lifts or holds trunk or limbs and provides more than half the effort. 1-Hgizzgksi-xqsxpw does ALL the effort. Patient does none of the effort to complete the activity. Or, the assistance of 2 or more helpers is required for the patient to complete the activity. If activity was not attempted, code reason: 7-Patient Refused. 9-Not Applicable-not attempted and the patient did not perform the activity before the current illness, exacerbation or injury. 10-Not Attempted due to Environmental Limitations-(lack of equipment, weather restraints, etc.). 88-Not Attempted due to Medical Conditions or Safety Concerns. Toileting Hygiene (QC): 1 Toilet Transfer (QC): 1 Pt incontinent of urine at therapy arrival, despite reporting that he was just cleaned less than 10 min prior. Dep for guillermo care. Pt transfers to w/c through use of ck. Other Treatment Pt completed multiple LE strengthening exercises with goal to promote increased endurance, strength, and weight bearing needed for functional activities. He fatigues easily and requires several rest breaks throughout. Attempt at standing in parallel bars, Dep x2. Only able to come to partial stand. Improved w/c mobility this date with use of LUE, no [place] or assist with propelling needed. He does require multiple breaks and unable to tolerate propelling more than 10 feet without stopping. Education OT Patient Education: Correct positioning, Disease process, Energy conservation, Exercise program, Modified ADL techniques, Progress toward Goal/Update tx plan, Purpose of tx/functional activities, Reviewed precautions, Rehab process, Safety issues, Transfer techniques, Use of adapted equipment, W/C management Teaching Recipient: Patient Teaching Methods: Demonstration Response to Teaching: Verbalize Understanding, Return Demonstration, Reinforcement Needed OT Short Term Goals Short Term Goals Time Frame: Feb 24, 2021 Eatin Oral hygiene: 4 Toileting hygiene: 2 Shower/bathe self: 2 Upper body dressin Lower body dressin Putting on/taking off footwear: 3 OT Assisted Goals Assisted Goals Time Frame: Mar 25, 2021 Eating (QC): 5 Oral Hygiene (QC): 5 Toileting Hygiene (QC): 2 Shower/Bathe Self (QC): 3 (min) Upper Body Dressing (QC): 2 Lower Body Dressing (QC): 2 On/Off Footwear (QC): 3 (min) 1=Demonstrate adherence to instructed precautions during ADL tasks. 2=Patient will verbalize/demonstrate understanding of assistive devices/modifications for ADL. 3=Patient will improve strength/tolerance for activity to enable patient to perform ADL's. OT Education/Plan Problem List/Assessment Assessment: Decreased Activ Tolerance, Decreased Safety Aware, Decreased UE Strength, Dependent Transfers, Impaired Bed Mobility, Impaired Cognition, Impaired Coordination, Impaired Funct Balance, Impaired I ADL's, Impaired Self- Care Skills, Restricted Funct UE ROM Discharge Recommendations Plan/Recommendations: Continue POC Treatment Plan/Plan of Care Treatment,Training & Education: Yes Patient would benefit from OT for education, treatment and training to promote independence in ADL's, mobility, safety and/or upper extremity function for ADL's. Plan of Care: ADL Retraining, Functional Mobility, Group Exercise/Act as Ind, UE Funct Exercise/Act, W/C Management Training Treatment Duration: Mar 04, 2021 Frequency: At least 5 of 7 days/Wk (IRF) Estimated Hrs Per Day: 1.5 hours per day Agreement: Yes Rehab Potential: Poor Time/GCodes Start Time: 09:00 Stop Time: 10:00 Total Time Billed (hr/min): 60 Billed Treatment Time 1 visit, ADL (15 min) FA x2 (30 min) EX (15 min) Antonieta Angel OT Mar 11, 2021 10:07
--- NOTE | 2021-03-11 11:02 | PM&R Progress Note ---
Subjective HPI/CC On Admission Date Seen by Provider: Mar 11, 2021 Time Seen by Provider: 11:00 Subjective/Events-last exam 03/11/2021: No major issues No pain reported Sugars reviewed Check meds and labs 03/10/2021: No major issues Setting up retirement for discharge No significant changes in status Bowels are loose 03/09/2021: Patient doing well No major issues Bowels are moving Check meds and labs Continuing to await for information from insurance for approval from [facility] 03/08/2021: Met with patient and family with son and ex- at bedside and 1 son on phone from [place]. 25-minute conversation ensued. 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 After detailed update on what we know and the possible plan family decided to pursue [facility] so we did submit that to insurance Son on phone in [place] could not understand why " no one is doing anything for him" and completely dissatisfied with all the care he is received from [facility] to [facility]. Tried to reassure patient and family and son on phone but very difficult to redirect son from negative statements. 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 03/07/21: Pt doing well Subtle change in his overall demeanor, he appears to be a bit more frightened and debilitated MRI has just come to bring him down for cervical and thoracic spine with and without IV contrast for [facility] to Review No BM for the last couple of days so will initiate laxatives Labs okay overall 03/06/2021: Patient doing well Sleeping well Spoke to Amy at [facility] as requested by director of social services and I have placed orders for MRI with and without IV contrast of cervical and thoracic spine and will need to have those clouded up into the system from [facility] to review then hopefully video consultation will ensue No other concerns 03/05/2021: Patient doing well No major concerns [facility] appears to be willing to do a video visit We will likely need to do another MRI so will contact Amy at [facility] at [phone] on Sunday in order to order the MRI that they want then will communicate regarding the visit after that 03/04/21: Pt doing well No significant complaints per nursing staff Still working with therapy Checked meds and labs 03/03/2021: Patient doing well No straight cath needed Sugars are good Bowels are moving well Check meds and labs 03/02/2021: Patient doing well Holding Detrol due to incontinence Bowels are moving Straight cath required Sent all records to PCP from [facility] and recommended him to stay in the rehab 03/01/21: Awaiting NH placement In/out cath required multiple times so will reach out to Dr Welsh BM yesterday Checked meds and labs 02/28/21: Patient doing well Labs reviewed No pain reported Spoke to Dr Kennedy his PCP and updated him on everything about the case and the need to f/u [facility] referral Will fax all records to him at [phone] so he can have all of the records also Incontinence noted BM+ 02/27/21: Patient doing well We will speak to his primary care provider before he is discharged to the retirement to be sure he can follow-up on [facility] referral Bowels moved today Glucose 168 Check meds and labs 02/26/2021: Patient doing well Discussed [facility] referral correction being arranged in meantime Bowels are moving well 02/25/2021: Miscommunication with [facility] in it does not appear that it will be a hospital hospital transfer Remains a Coleen lift Son here for family education Denies any new issues 02/24/2021: [facility] had reached out and reviewed the case and it appeared that he was in the midst of being accepted. Patient very excited about the chance to go to [facility] Denies any issues Still a Coleen lift 02/23/2021: Patient doing well Required in and out caths yesterday due to 490 retention Detrol has been started by urology [facility] still in process Bed mobility improved 02/22/2021: Patient doing well Urology started Detrol for incontinence [facility] pending Bowels are moving well Still requiring Coleen lift 02/21/2021: Patient reports no significant concerns Bladder scanning per urology rec No word from [facility] Incontinent of bowel today Labs look good 02/20/2021: Patient has no new complaints today Denies any new issues No pain is reported Incontinence is an issue Fecal incontinence also an issue 02/19/2021: Patient had an uneventful night Denies any new issues Working on bladder retraining Check meds and labs 02/18/2021: Patient doing well Has no complaints Cystoscopy to be done today by urology No pain is reported Bowel evacuation ordered 02/17/2021: Patient doing really well Bowels moved yesterday All records sent to [facility] Has no rectal tone May need a suppository to evacuate bowels and treated like a paraplegic Bottom wound appears to be very superficial on a cushion 02/16/2021: Pt doing well No issues Bowels moved yesterday and fecal incontinence Frausto cath in Cystoscopy by Dr. Welsh on Sunday02/15/2021: Pt doing a little better Frausto required and Dr. Welsh consulted Spot checks of oxygen without CPAP during the night are okay Still a Coleen-lift 02/14/2021: Pt doing well Condom catheter will be attempted Platelet count 108 Wound looks good BP and blood sugar good No pain Bowels are moving 02/13/2021: Patient doing well Has no needs Bowels are moving well No issues Sugars are reviewed 02/12/2021: Patient doing well Incontinent of bowel and bladder a lot Able to move himself and turn himself in bed Check meds and labs Cognitive deficit could preclude independent living 02/11/2021: Patient doing pretty well Dr. Rubio will be consulted Noncompliant with CPAP machine Oxygen was good last night at 90% Wound care consulted Dr. Pyle Sugars good Bowels are a bit loose and he does have fecal incontinence Review of Systems General: Fatigue, Malaise Neurological: Weakness Objective Exam Vital Signs Vital Signs Date Time Temp Pulse Resp B/P (MAP) Pulse Ox O2 Delivery O2 Flow Rate FiO2 03/11/21 20:10 97 Room Air 03/11/21 20:10 36.6 61 20 111/56 (74) Capillary Refill : General Appearance: No Apparent Distress, WD/WN, Chronically ill HEENT: PERRL/EOMI, Normal ENT Inspection, Pharynx Normal Neck: Full Range of Motion, Normal Inspection, Non Tender, Supple, Carotid Bruit Respiratory: Chest Non Tender, Lungs Clear, Normal Breath Sounds, No Accessory Muscle Use, No Respiratory Distress Cardiovascular: Regular Rate, Rhythm, No Edema, No Gallop, No JVD, No Murmur, Normal Peripheral Pulses Gastrointestinal: Normal Bowel Sounds, No Organomegaly, No Pulsatile Mass, Non Tender, Soft Back: Normal Inspection, No CVA Tenderness, No Vertebral Tenderness Extremity: Normal Capillary Refill, Normal Inspection, Normal Range of Motion, Non Tender, No Calf Tenderness, No Pedal Edema Neurologic/Psychiatric: Alert, Oriented x3, Normal Mood/Affect, 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 FIM Transfers Therapy Code Descriptions/Definitions Functional [place] Measure: 0=Not Assessed/NA 4=Minimal Assistance 1=Total Assistance 5=Supervision or Setup 2=Maximal Assistance 6=Modified [place] 3=Moderate Assistance 7=Complete IndependenceSCALE: Activities may be completed with or without assistive devices. 0-Qeyvgmxggb-dgyiezp completes the activity by him/herself with no assistance from a helper. 5-Set-up or Clean-up Assistance-helper sets up or cleans up; patient completes activity. [place] assists only prior to or following the activity. 4-Supervision or Touching Assistance-helper provides verbal cues and/or touchin g/steadying and/or contact guard assistance as patient completes activity. Assistance may be provided throughout the activity or intermittently. 3-Partial/Moderate Assistance-helper does LESS THAN HALF the effort. [place] lifts, holds or supports trunk or limbs, but provides less than half the effort. 2-Substantial/Maximal Assistance-helper does MORE THAN HALF the effort. [place] lifts or holds trunk or limbs and provides more than half the effort. 9-Szjtdipft-dibbkb does ALL the effort. Patient does none of the effort to complete the activity. Or, the assistance of 2 or more helpers is required for the patient to complete the activity. If activity was not attempted, code reason: 7-Patient Refused. 9-Not Applicable-not attempted and the patient did not perform the activity before the current illness, exacerbation or injury. 10-Not Attempted due to Environmental Limitations-(lack of equipment, weather restraints, etc.). 88-Not Attempted due to Medical Conditions or Safety Concerns. Roll Left to Right (QC): 3 Sit to Lying (QC): 1 Sit to Stand (QC): 1 Chair/Gtf-wi-Zapqa Xfer(QC): 1 Car Transfer (QC): 88 Gait Training Does the Patient Walk?: No and Walking Goal NOT indicated Walk 10 feet (QC): 88 Walk 50 ft with 2 Turns(QC): 88 Walk 150 ft (QC): 88 Walking 10ft/uneven surface-QC: 88 Wheelchair Training Does the Pt Use a Wheelchair?: Yes Distance: 100'x2 Wheel 50 ft with 2 turns (QC): 4 Wheel 150 ft (QC): 3 Type of Wheelchair: Manual Stair Training 1 Step (curb) (QC): 88 4 Steps (QC): 88 12 Steps (QC): 88 Balance Picking up an Object (QC): 88 ADL-Treatment Eating (QC): 6 (Pt able to complete own meal set up and use regular utensils to eat.) Oral Hygiene (QC): 4 Bathing Location: L Arm, R Arm, L Upper Leg, R Upper Leg, L Lower Leg (including foot), R Lower Leg (including foot), Chest, Abdomen, Perineal Area Shower/Bathe Self (QC): 3 Upper Body Dressing (QC): 3 Lower Body Dressing (QC): 1 On/Off Footwear (QC): 3 Toileting Hygiene (QC): 1 Toilet Transfer (QC): 1 Assessment/Plan Assessment and Plan Assess & Plan/Chief Complaint Assessment: 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 and subsequent neurological deficits Lumbar L4-L5 subarticular recess narrowing B/L Left-sided weakness Hepatic Hemangioma Systolic Heart Failure LFT elevation LBBB Previous hypotension Obesity CAD Dementia/cognitive impairment GERD PUD PVD Diabetic polyneuropathy Progressive weakness High risk of falling Gait disturbance Spasticity T2DM Constipation Edema HTN Paroxysmal A-fib Thrombocytopenia Urinary Retention Status post UTI (resolved) BAM on CPAP Cystoscopy on 02/18/2021 Plan: Aggressive PT, OT, and speech therapy Order basic lab work in the morning Review records, talk to his family members as they are more in tune with his medical condition then the patient himself Neurology follow up Consult Dr. Rubio for A. fib 02/11/2021: Supportive care Dr. Rubio consult Poor memory recall noted 02/12/2021: Incontinence care Aggressive therapy 02/13/2021: Incontinence care Aggressive therapy 02/14/2021: Attempt condom catheter due to incontinence Monitor for retention Dr. Welsh consult 02/15/2021: Appreciate urology management Aggressive therapy Send records to [facility] 02/16/2021: Supportive care Send records to [facility] from [facility] Continue aggressive treatment Cystoscopy tomorrow 02/17/2021: Cystoscopy tomorrow Bowel evacuation 02/18/2021: Cystoscopy Appreciate urology 02/19/2021: Supportive care Urology appreciated 02/20/2021: Supportive care Incontinence care 02/21/2021: Supportive care Incontinence care Appreciate urology 02/22/2021: Detrol for incontinence Appreciate urology Continue aggressive treatment 02/23/2021 Patient will need nursing care at discharge Appreciate urology 02/24/2021: [facility] transfer? Continue aggressive therapy 02/25/2021: correction admission [facility] still pending 02/26/2021: Await retirement placement [facility] referral 02/27/21: Monitor closely Await NH placement Will speak to Dr Kennedy 02/28/21: Updated PCP Will send records NHP 03/01/21: Await placement Send records to Dr Kennedy 03/02/2021: Discontinue Detrol Supportive care 03/03/2021: Patient doing well Maintain urology management 03/04/21: Monitor weakness Sugar management 03/05/2021: We will contact [facility] on Sunday for additional MRIs 03/06/2021: Ordered MRI with and without IV contrast of cervical and thoracic spine per [facility] request that will be done tomorrow 03/07/2021: Review MRI Disposition 03/08/2021: Family meeting for 25 minutes Additional 30 minutes in review of scans and review of data 03/09/2021: Continue aggressive therapy Await [facility] decision from insurance 03/10/2021: Continue aggressive therapy correction discharge 03/11/2021: Supportive care correction at discharge (1) Cervical spinal cord compression (2) Atrial fibrillation (3) Anticoagulation adequate with anticoagulant therapy (4) Urinary retention CARMELLA ESTRADA DO Mar 11, 2021 11:02
--- NOTE | 2021-03-11 12:07 | Occupational Ther Daily Note ---
OT Current Status-Daily Note Subjective continues to deny pain, agreeable to treatment Appearance Pt left supine in bed, all needs within reach ADL-Treatment Therapy Code Descriptions/Definitions Functional [place] Measure: 0=Not Assessed/NA 4=Minimal Assistance 1=Total Assistance 5=Supervision or Setup 2=Maximal Assistance 6=Modified [place] 3=Moderate Assistance 7=Complete IndependenceSCALE: Activities may be completed with or without assistive devices. 2-Wruivbwqkz-rvanfop completes the activity by him/herself with no assistance from a helper. 5-Set-up or Clean-up Assistance-helper sets up or cleans up; patient completes activity. [place] assists only prior to or following the activity. 4-Supervision or Touching Assistance-helper provides verbal cues and/or touching/steadying and/or contact guard assistance as patient completes activity. Assistance may be provided throughout the activity or intermittently. 3-Partial/Moderate Assistance-helper does LESS THAN HALF the effort. [place] lifts, holds or supports trunk or limbs, but provides less than half the effort. 2-Substantial/Maximal Assistance-helper does MORE THAN HALF the effort. [place] lifts or holds trunk or limbs and provides more than half the effort. 6-Veasuwchg-rvilik does ALL the effort. Patient does none of the effort to complete the activity. Or, the assistance of 2 or more helpers is required for the patient to complete the activity. If activity was not attempted, code reason: 7-Patient Refused. 9-Not Applicable-not attempted and the patient did not perform the activity before the current illness, exacerbation or injury. 10-Not Attempted due to Environmental Limitations-(lack of equipment, weather restraints, etc.). 88-Not Attempted due to Medical Conditions or Safety Concerns. Other Treatment OT provided pt with yellow theraputty with goal to increase L hand/wrist strength,pinch strength, manipulation/dexterity skills, ROM, and activity tolerance for functional tasks. Pt unable to roll putty into ball or log without utilizing entire arm. He demonstrates compensating at shoulder/elbow secondary to hand/wrist weakness. Tactile cues/education provided in effort to reduce compensation. With little activity, all strength dissipates and pt is then unable to actively open/extend digits/thumb. Assist from R hand and therapist to correctly position putty in hand. Activity terminated early due to difficulty. Pt then completed grasping/pinch activity with no resistance. HOHA and visualizing tool provided. Education OT Patient Education: Correct positioning, Energy conservation, Exercise program, Home exercise program, Progress toward Goal/Update tx plan, Purpose of tx/functional activities, Rehab process, Safety issues Teaching Recipient: Patient Teaching Methods: Demonstration, Discussion Response to Teaching: Verbalize Understanding, Unable to Return Demonstration, Reinforcement Needed OT Short Term Goals Short Term Goals Time Frame: Feb 24, 2021 Eatin Oral hygiene: 4 Toileting hygiene: 2 Shower/bathe self: 2 Upper body dressin Lower body dressin Putting on/taking off footwear: 3 OT [facility] Goals [facility] Goals Time Frame: Mar 25, 2021 Eating (QC): 5 Oral Hygiene (QC): 5 Toileting Hygiene (QC): 2 Shower/Bathe Self (QC): 3 (min) Upper Body Dressing (QC): 2 Lower Body Dressing (QC): 2 On/Off Footwear (QC): 3 (min) 1=Demonstrate adherence to instructed precautions during ADL tasks. 2=Patient will verbalize/demonstrate understanding of assistive devices/modifications for ADL. 3=Patient will improve strength/tolerance for activity to enable patient to perform ADL's. OT Education/Plan Problem List/Assessment Assessment: Decreased Activ Tolerance, Decreased Safety Aware, Decreased UE S trength, Dependent Transfers, Impaired Bed Mobility, Impaired Cognition, Impaired Coordination, Impaired Funct Balance, Impaired I ADL's, Impaired Self- Care Skills, Restricted Funct UE ROM Discharge Recommendations Plan/Recommendations: Continue POC Target Placement LTC Treatment Plan/Plan of Care Treatment,Training & Education: Yes Patient would benefit from OT for education, treatment and training to promote independence in ADL's, mobility, safety and/or upper extremity function for ADL's. Plan of Care: ADL Retraining, Functional Mobility, Group Exercise/Act as Ind, UE Funct Exercise/Act, W/C Management Training Treatment Duration: Mar 04, 2021 Frequency: At least 5 of 7 days/Wk (IRF) Estimated Hrs Per Day: 1.5 hours per day Agreement: Yes Rehab Potential: Poor Time/GCodes Start Time: 11:30 Stop Time: 12:00 Total Time Billed (hr/min): 30 Billed Treatment Time 1 visit, EX (20 min) NM (10 min) Antonieta Angel OT Mar 11, 2021 12:07
--- NOTE | 2021-03-11 13:26 | Physical Therapy Daily Note ---
PT Daily Note-Current Subjective Patient in bed pre tx, agrees to PT, has no complaints of pain Appearance Patient in bed post tx with nurse call, phone, tray, all needs met. Mental Status Patient Orientation: Person, Place, Situation Transfers SCALE: Activities may be completed with or without assistive devices. 4-Grptvzculh-spqzack completes the activity by him/herself with no assistance from a helper. 5-Set-up or Clean-up Assistance-helper sets up or cleans up; patient completes activity. [place] assists only prior to or following the activity. 4-Supervision or Touching Assistance-helper provides verbal cues and/or touching/steadying and/or contact guard assistance as patient completes activity. Assistance may be provided throughout the activity or intermittently. 3-Partial/Moderate Assistance-helper does LESS THAN HALF the effort. [place] lifts, holds or supports trunk or limbs, but provides less than half the effort. 2-Substantial/Maximal Assistance-helper does MORE THAN HALF the effort. [place] lifts or holds trunk or limbs and provides more than half the effort. 5-Rbazyiiuf-mlufhs does ALL the effort. Patient does none of the effort to complete the activity. Or, the assistance of 2 or more helpers is required for the patient to complete the activity. If activity was not attempted, code reason: 7-Patient Refused. 9-Not Applicable-not attempted and the patient did not perform the activity before the current illness, exacerbation or injury. 10-Not Attempted due to Environmental Limitations-(lack of equipment, weather restraints, etc.). 88-Not Attempted due to Medical Conditions or Safety Concerns. Exercises Supine Ex: Ankle pumps, Quad Set, Glut sets, Heel Slides (AAROM LLE), Short Arc Quads (AAROM LLE), Straight leg raise (AAROM LLE), Hip abd/add (AAROM LLE) Supine Reps: 20 Treatments BLE strengthening Assessment Current Status: Poor Progress Patients right leg seems a little stronger than last time, but still has to rest once or sometimes twice during a set to complete it. PT Short Term Goals Short Term Goals Time Frame: Feb 17, 2021 Roll Left & Right: 3 Sit to lyin Lying to sitting on side of be: 3 Wheel 50ft w/2 turns: 4 Wheel 150 feet: 4 PT [employer] Goals Long-Term Goals PT [employer] Goals Time Frame: Mar 03, 2021 Roll Left & Right (QC): 4 Sit to Lying (QC): 4 Lying-Sitting on Side/Bed(QC): 4 Sit to Stand (QC): 88 Chair/Quh-bd-Sutnf Xfer(QC): 88 Toilet Transfer (QC): 88 Car Transfer (QC): 88 Does the Patient Walk: No and Walking Goal NOT indicated Walk 10 feet (QC): 88 Walk 50ft with 2 Turns (QC): 88 Walk 150 ft (QC): 88 Walking 10ft on Uneven Surface: 88 1 Step (curb) (QC): 88 4 Steps (QC): 88 12 Steps (QC): 88 Picking up an Object (QC): 88 Wheel 50 feet with 2 turns (QC: 6 Wheel 150 feet: 6 PT Plan Problem List Problem List: Activity Tolerance, Functional Strength, Safety, Balance, Gait, Transfer, Bed Mobility, ROM Treatment/Plan Treatment Plan: Continue Plan of Care Treatment Plan: Bed Mobility, Education, Functional Activity Jorge, Functional Strength, Group Therapy, Gait, Safety, Therapeutic Exercise, Transfers Treatment Duration: Mar 03, 2021 Frequency: At least 5 of 7 days/Wk (IRF) Estimated Hrs Per Day: 1.5 hours per day Patient and/or Family Agrees t: Yes Safety Risks/Education Patient Education: Correct Positioning, Safety Issues Teaching Recipient: Patient Teaching Methods: Demonstration, Discussion Response to Teaching: Reinforcement Needed Time/GCodes Time In: 1300 Time Out: 1330 Total Billed Treatment Time: 30 Total Billed Treatment 1 visit EX 30' TARA MCCOY PT Mar 11, 2021 13:26
[2021-03-11] MEDS: DIGOXIN 0.125 MG (LANOXIN) TAB PO SCH (17:52)
[2021-03-11] MEDS: TAMSULOSIN 0.4 MG (FLOMAX) CAP PO SCH (17:52)
[2021-03-11 20:10] VITALS: BP 111/56
[2021-03-11] MEDS: MELATONIN 3 MG TABLET PO PRN (21:18)
[2021-03-11] MEDS: SIMvastatin 40 MG (ZOCOR) TAB PO SCH (21:18)
[2021-03-12] MEDS: inSUlin ASPART (NovoLOG) 1 UNIT/0.01 ML (CHARGE PER UNIT) SC SCH ×4 (06:07→20:13)
[2021-03-12] MEDS: LEVOTHYROXINE 100 MCG (LEVOTHROID) TAB PO SCH (06:43)
[2021-03-12] MEDS: BETHANECHOL 10 MG (URECHOLINE) TAB PO SCH ×4 (06:43→20:20)
[2021-03-12] MEDS: KCL 10 MEQ TAB (MICRO K) PO SCH (06:43)
[2021-03-12] MEDS: MULTIVIT W/MINERALS TAB (THERAGRAN M) PO SCH (06:44)
[2021-03-12 07:24] VITALS: BP 112/66
[2021-03-12] MEDS: APIXABAN 5 MG (ELIQUIS) TABLET PO SCH ×2 (09:13→20:19)
[2021-03-12] MEDS: meTOprolol SUCCINATE 100 MG (TOPROL XL) TAB PO SCH (09:13)
[2021-03-12] MEDS: FAMOTIDINE 20 MG (PEPCID) TABLET PO SCH (09:13)
[2021-03-12] MEDS: OMEGA 3 (FISH OIL) 1000 MG CAP PO SCH ×2 (09:13→20:19)
[2021-03-12] MEDS: MAGNESIUM OXIDE (MAG-OX)400 MG TAB PO SCH (09:13)
[2021-03-12] MEDS: CALCIUM CARB + VIT D 600 MG (CALCARB + D) TAB PO SCH (09:14)
[2021-03-12] MEDS: LOSARTAN 50 MG (COZAAR) TAB PO SCH (09:14)
[2021-03-12] MEDS: FERROUS SULF 325 MG (IRON) TAB PO SCH (09:14)
[2021-03-12] MEDS: FUROSEMIDE 20 MG (LASIX) TAB PO SCH (09:15)
[2021-03-12] MEDS: lisINopril 10 MG (PRINIVIL) TABLET PO SCH (09:15)
[2021-03-12] MEDS: DOCUSATE SODIUM 100 MG (COLACE) CAP PO SCH ×2 (09:15→19:37)
[2021-03-12] MEDS: polyethylene glycoL POWDER 17 GM (MIRALAX) PACK PO SCH ×2 (09:15→19:37)
[2021-03-12] MEDS: SENNA W/DOCUSATE (SENOKOT S) TABLET PO SCH ×2 (09:15→19:37)
--- NOTE | 2021-03-12 09:16 | Physical Therapy Daily Note ---
PT Daily Note-Current Subjective Pt agreeable, denies pain. Pain Numeric Pain Scale: 0-No Pain Location: No Pain Reported Mental Status Patient Orientation: Person, Place, Time, Situation Transfers SCALE: Activities may be completed with or without assistive devices. 4-Pxmbyacgxw-jskgcte completes the activity by him/herself with no assistance from a helper. 5-Set-up or Clean-up Assistance-helper sets up or cleans up; patient completes activity. [place] assists only prior to or following the activity. 4-Supervision or Touching Assistance-helper provides verbal cues and/or touching/steadying and/or contact guard assistance as patient completes activity. Assistance may be provided throughout the activity or intermittently. 3-Partial/Moderate Assistance-helper does LESS THAN HALF the effort. [place] lifts, holds or supports trunk or limbs, but provides less than half the effort. 2-Substantial/Maximal Assistance-helper does MORE THAN HALF the effort. [place] lifts or holds trunk or limbs and provides more than half the effort. 5-Jmtltspjv-pnvwed does ALL the effort. Patient does none of the effort to complete the activity. Or, the assistance of 2 or more helpers is required for the patient to complete the activity. If activity was not attempted, code reason: 7-Patient Refused. 9-Not Applicable-not attempted and the patient did not perform the activity before the current illness, exacerbation or injury. 10-Not Attempted due to Environmental Limitations-(lack of equipment, weather restraints, etc.). 88-Not Attempted due to Medical Conditions or Safety Concerns. Roll Left & Right (QC): 6 Chair/Njp-jr-Nbnsb Xfer(QC): 1 ([place]) Exercises Supine Ex: Ankle pumps, Quad Set, Short Arc Quads, Straight leg raise, Hip abd/add Supine Reps: 15 AAROM PRN Treatments Supine LE functional strengthening exercises, up to chair utilizing [place]. Up in chair with all needs met. Assessment Current Status: Poor Progress Pt tolerated well. AROM on (R), AAROM required for most exercises on (L) to complete full ROM. PT Short Term Goals Short Term Goals Time Frame: Feb 17, 2021 Roll Left & Right: 3 Sit to lyin Lying to sitting on side of be: 3 Wheel 50ft w/2 turns: 4 Wheel 150 feet: 4 PT Mcc Goals Mcc Goals PT Mcc Goals Time Frame: Mar 03, 2021 Roll Left & Right (QC): 4 Sit to Lying (QC): 4 Lying-Sitting on Side/Bed(QC): 4 Sit to Stand (QC): 88 Chair/Ert-zp-Rzczk Xfer(QC): 88 Toilet Transfer (QC): 88 Car Transfer (QC): 88 Does the Patient Walk: No and Walking Goal NOT indicated Walk 10 feet (QC): 88 Walk 50ft with 2 Turns (QC): 88 Walk 150 ft (QC): 88 Walking 10ft on Uneven Surface: 88 1 Step (curb) (QC): 88 4 Steps (QC): 88 12 Steps (QC): 88 Picking up an Object (QC): 88 Wheel 50 feet with 2 turns (QC: 6 Wheel 150 feet: 6 PT Plan Problem List Problem List: Activity Tolerance, Functional Strength, Safety, Balance, Gait, Transfer, Bed Mobility Treatment/Plan Treatment Plan: Continue Plan of Care Treatment Plan: Bed Mobility, Education, Functional Activity Jorge, Functional Strength, Group Therapy, Gait, Safety, Therapeutic Exercise, Transfers Treatment Duration: Mar 03, 2021 Frequency: At least 5 of 7 days/Wk (IRF) Estimated Hrs Per Day: 1.5 hours per day Patient and/or Family Agrees t: Yes Time/GCodes Time In: 850 Time Out: 910 Total Billed Treatment Time: 20 Total Billed Treatment 1, EX x 15' (FA x 5') ALESSANDRA MARTIN DPT Mar 12, 2021 09:16
--- NOTE | 2021-03-12 12:33 | PM&R Progress Note ---
Subjective HPI/CC On Admission Date Seen by Provider: Mar 12, 2021 Time Seen by Provider: 12:40 Subjective/Events-last exam 03/12/2021: Patient doing well No major concerns Sleeping soundly at time of my rounds Changing diet to regular 03/11/2021: No major issues No pain reported Sugars reviewed Check meds and labs 03/10/2021: No major issues Setting up fci for discharge No significant changes in status Bowels are loose 03/09/2021: Patient doing well No major issues Bowels are moving Check meds and labs Continuing to await for information from insurance for approval from [facility] 03/08/2021: Met with patient and family with son and ex- at bedside and 1 son on phone from [place]. 25-minute conversation ensued. 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 After detailed update on what we know and the possible plan family decided to pursue [facility] so we did submit that to insurance Son on phone in [place] could not understand why " no one is doing anything for him" and completely dissatisfied with all the care he is received from [facility] to [facility]. Tried to reassure patient and family and son on phone but very difficult to redirect son from negative statements. 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 03/07/21: Pt doing well Subtle change in his overall demeanor, he appears to be a bit more frightened and debilitated MRI has just come to bring him down for cervical and thoracic spine with and without IV contrast for [facility] to Review No BM for the last couple of days so will initiate laxatives Labs okay overall 03/06/2021: Patient doing well Sleeping well Spoke to Amy at [facility] as requested by director of social work and I have placed orders for MRI with and without IV contrast of cervical and thoracic spine and will need to have those clouded up into the system from [facility] to review then hopefully video consultation will ensue No other concerns 03/05/2021: Patient doing well No major concerns [facility] appears to be willing to do a video visit We will likely need to do another MRI so will contact Amy at [facility] at [phone] on Sunday in order to order the MRI that they want then will communicate regarding the visit after that 03/04/21: Pt doing well No significant complaints per nursing staff Still working with therapy Checked meds and labs 03/03/2021: Patient doing well No straight cath needed Sugars are good Bowels are moving well Check meds and labs 03/02/2021: Patient doing well Holding Detrol due to incontinence Bowels are moving Straight cath required Sent all records to PCP from [id number] skilled care and recommended him to stay in the rehab 03/01/21: Awaiting NH placement In/out cath required multiple times so will reach out to Dr Welsh BM yesterday Checked meds and labs 02/28/21: Patient doing well Labs reviewed No pain reported Spoke to Dr Kennedy his PCP and updated him on everything about the case and the need to f/u [facility] referral Will fax all records to him at [phone] so he can have all of the records also Incontinence noted BM+ 02/27/21: Patient doing well We will speak to his primary care provider before he is discharged to the [facility] to be sure he can follow-up on [facility] referral Bowels moved today Glucose 168 Check meds and labs 02/26/2021: Patient doing well Discussed [facility] referral half-way being arranged in meantime Bowels are moving well 02/25/2021: Miscommunication with [facility] in it does not appear that it will be a hospital hospital transfer Remains a Coleen lift Son here for family education Denies any new issues 02/24/2021: [facility] had reached out and reviewed the case and it appeared that he was in the midst of being accepted. Patient very excited about the chance to go to [facility] Denies any issues Still a Coleen lift 02/23/2021: Patient doing well Required in and out caths yesterday due to 490 retention Detrol has been started by urology [facility] still in process Bed mobility improved 02/22/2021: Patient doing well Urology started Detrol for incontinence [facility] pending Bowels are moving well Still requiring Coleen lift 02/21/2021: Patient reports no significant concerns Bladder scanning per urology rec No word from [facility] Incontinent of bowel today Labs look good 02/20/2021: Patient has no new complaints today Denies any new issues No pain is reported Incontinence is an issue Fecal incontinence also an issue 02/19/2021: Patient had an uneventful night Denies any new issues Working on bladder retraining Check meds and labs 02/18/2021: Patient doing well Has no complaints Cystoscopy to be done today by urology No pain is reported Bowel evacuation ordered 02/17/2021: Patient doing really well Bowels moved yesterday All records sent to [facility] Has no rectal tone May need a suppository to evacuate bowels and treated like a paraplegic Bottom wound appears to be very superficial on a cushion 02/16/2021: Pt doing well No issues Bowels moved yesterday and fecal incontinence Frausto cath in Cystoscopy by Dr. Welsh on Sunday02/15/2021: Pt doing a little better Frausto required and Dr. Welsh consulted Spot checks of oxygen without CPAP during the night are okay Still a Coleen-lift 02/14/2021: Pt doing well Condom catheter will be attempted Platelet count 108 Wound looks good BP and blood sugar good No pain Bowels are moving 02/13/2021: Patient doing well Has no needs Bowels are moving well No issues Sugars are reviewed 02/12/2021: Patient doing well Incontinent of bowel and bladder a lot Able to move himself and turn himself in bed Check meds and labs Cognitive deficit could preclude independent living 02/11/2021: Patient doing pretty well Dr. Rubio will be consulted Noncompliant with CPAP machine Oxygen was good last night at 90% Wound care consulted Dr. Edenilson Prakash good Bowels are a bit loose and he does have fecal incontinence Review of Systems Neurological: Weakness, Incoordination Objective Exam Vital Signs Vital Signs Date Time Temp Pulse Resp B/P (MAP) Pulse Ox O2 Delivery O2 Flow Rate FiO2 03/12/21 20:23 Room Air 03/12/21 19:49 36.5 70 18 103/58 (73) 97 Capillary Refill : General Appearance: No Apparent Distress, WD/WN, Chronically ill HEENT: PERRL/EOMI, Normal ENT Inspection, Pharynx Normal Neck: Full Range of Motion, Normal Inspection, Non Tender, Supple, Carotid Bruit Respiratory: Chest Non Tender, Lungs Clear, Normal Breath Sounds, No Accessory Muscle Use, No Respiratory Distress Cardiovascular: Regular Rate, Rhythm, No Edema, No Gallop, No JVD, No Murmur, Normal Peripheral Pulses Gastrointestinal: Normal Bowel Sounds, No Organomegaly, No Pulsatile Mass, Non Tender, Soft Back: Normal Inspection, No CVA Tenderness, No Vertebral Tenderness Extremity: Normal Capillary Refill, Normal Inspection, Normal Range of Motion, Non Tender, No Calf Tenderness, No Pedal Edema Neurologic/Psychiatric: Alert, Oriented x3, Normal Mood/Affect, 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 [facility] Transfers Therapy Code Descriptions/Definitions Functional [place] Measure: 0=Not Assessed/NA 4=Minimal Assistance 1=Total Assistance 5=Supervision or Setup 2=Maximal Assistance 6=Modified [place] 3=Moderate Assistance 7=Complete IndependenceSCALE: Activities may be completed with or without assistive devices. 1-Prsswomujf-bjwlqjp completes the activity by him/herself with no assistance from a helper. 5-Set-up or Clean-up Assistance-helper sets up or cleans up; patient completes activity. [place] assists only prior to or following the activity. 4-Supervision or Touching Assistance-helper provides verbal cues and/or touching/steadying and/or contact guard assistance as patient completes activity. Assistance may be provided throughout the activity or intermittently. 3-Partial/Moderate Assistance-helper does LESS THAN HALF the effort. [place] lifts, holds or supports trunk or limbs, but provides less than half the effort. 2-Substantial/Maximal Assistance-helper does MORE THAN HALF the effort. [place] lifts or holds trunk or limbs and provides more than half the effort. 2-Fmymbnxek-erpvbu does ALL the effort. Patient does none of the effort to complete the activity. Or, the assistance of 2 or more helpers is required for the patient to complete the activity. If activity was not attempted, code reason: 7-Patient Refused. 9-Not Applicable-not attempted and the patient did not perform the activity before the current illness, exacerbation or injury. 10-Not Attempted due to Environmental Limitations-(lack of equipment, weather restraints, etc.). 88-Not Attempted due to Medical Conditions or Safety Concerns. Roll Left to Right (QC): 6 Sit to Lying (QC): 1 Sit to Stand (QC): 1 Chair/Uzq-et-Akgnm Xfer(QC): 1 (Coleen) Car Transfer (QC): 88 Gait Training Does the Patient Walk?: No and Walking Goal NOT indicated Walk 10 feet (QC): 88 Walk 50 ft with 2 Turns(QC): 88 Walk 150 ft (QC): 88 Walking 10ft/uneven surface-QC: 88 Wheelchair Training Does the Pt Use a Wheelchair?: Yes Distance: 100'x2 Wheel 50 ft with 2 turns (QC): 4 Wheel 150 ft (QC): 3 Type of Wheelchair: Manual Stair Training 1 Step (curb) (QC): 88 4 Steps (QC): 88 12 Steps (QC): 88 Balance Picking up an Object (QC): 88 ADL-Treatment Eating (QC): 6 (Pt able to complete own meal set up and use regular utensils to eat.) Oral Hygiene (QC): 4 Bathing Location: L Arm, R Arm, L Upper Leg, R Upper Leg, L Lower Leg (including foot), R Lower Leg (including foot), Chest, Abdomen, Perineal Area Shower/Bathe Self (QC): 3 Upper Body Dressing (QC): 3 Lower Body Dressing (QC): 1 On/Off Footwear (QC): 3 Toileting Hygiene (QC): 1 Toilet Transfer (QC): 1 Assessment/Plan Assessment and Plan Assess & Plan/Chief Complaint Assessment: 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 and subsequent neurological deficits Lumbar L4-L5 subarticular recess narrowing B/L Left-sided weakness Hepatic Hemangioma Systolic Heart Failure LFT elevation LBBB Previous hypotension Obesity CAD Dementia/cognitive impairment GERD PUD PVD Diabetic polyneuropathy Progressive weakness High risk of falling Gait disturbance Spasticity T2DM Constipation Edema HTN Paroxysmal A-fib Thrombocytopenia Urinary Retention Status post UTI (resolved) BAM on CPAP Cystoscopy on 02/18/2021 Plan: Aggressive PT, OT, and speech therapy Order basic lab work in the morning Review records, talk to his family members as they are more in tune with his medical condition then the patient himself Neurology follow up Consult Dr. Rubio for A. fib 02/11/2021: Supportive care Dr. Rubio consult Poor memory recall noted 02/12/2021: Incontinence care Aggressive therapy 02/13/2021: Incontinence care Aggressive therapy 02/14/2021: Attempt condom catheter due to incontinence Monitor for retention Dr. Welsh consult 02/15/2021: Appreciate urology management Aggressive therapy Send records to [facility] 02/16/2021: Supportive care Send records to [facility] from [facility] Continue aggressive treatment Cystoscopy tomorrow 02/17/2021: Cystoscopy tomorrow Bowel evacuation 02/18/2021: Cystoscopy Appreciate urology 02/19/2021: Supportive care Urology appreciated 02/20/2021: Supportive care Incontinence care 02/21/2021: Supportive care Incontinence care Appreciate urology 02/22/2021: Detrol for incontinence Appreciate urology Continue aggressive treatment 02/23/2021 Patient will need nursing care at discharge Appreciate urology 02/24/2021: [facility] transfer? Continue aggressive therapy 02/25/2021: half-way admission [facility] still pending 02/26/2021: Await [facility]ci placement [facility] referral 02/27/21: Monitor closely Await NH placement Will speak to Dr Kennedy 02/28/21: Updated PCP Will send records NHP 03/01/21: Await placement Send records to Dr Kennedy 03/02/2021: Discontinue Detrol Supportive care 03/03/2021: Patient doing well Maintain urology management 03/04/21: Monitor weakness Sugar management 03/05/2021: We will contact [facility] on Sunday for additional MRIs 03/06/2021: Ordered MRI with and without IV contrast of cervical and thoracic spine per [facility] request that will be done tomorrow 03/07/2021: Review MRI Disposition 03/08/2021: Family meeting for 25 minutes Additional 30 minutes in review of scans and review of data 03/09/2021: Continue aggressive therapy Await [facility] decision from insurance 03/10/2021: Continue aggressive therapy half-way discharge 03/11/2021: Supportive care half-way at discharge 03/12/2021: Change diet to regular for Sunday Supportive care (1) Cervical spinal cord compression (2) Atrial fibrillation (3) Anticoagulation adequate with anticoagulant therapy (4) Urinary retention CARMELLA ESTRADA DO Mar 12, 2021 12:33
[2021-03-12] MEDS: TAMSULOSIN 0.4 MG (FLOMAX) CAP PO SCH (17:36)
[2021-03-12] MEDS: DIGOXIN 0.125 MG (LANOXIN) TAB PO SCH (17:36)
[2021-03-12 19:49] VITALS: BP 103/58
[2021-03-12] MEDS: SIMvastatin 40 MG (ZOCOR) TAB PO SCH (20:19)
[2021-03-12] MEDS: MELATONIN 3 MG TABLET PO PRN (22:11)
[2021-03-13] MEDS: inSUlin ASPART (NovoLOG) 1 UNIT/0.01 ML (CHARGE PER UNIT) SC SCH ×4 (05:20→21:10)
[2021-03-13] MEDS: KCL 10 MEQ TAB (MICRO K) PO SCH (06:09)
[2021-03-13] MEDS: MULTIVIT W/MINERALS TAB (THERAGRAN M) PO SCH (06:09)
[2021-03-13] MEDS: LEVOTHYROXINE 100 MCG (LEVOTHROID) TAB PO SCH (06:09)
[2021-03-13] MEDS: BETHANECHOL 10 MG (URECHOLINE) TAB PO SCH ×4 (06:09→21:09)
[2021-03-13 07:03] VITALS: BP 145/73
--- NOTE | 2021-03-13 07:12 | PM&R Progress Note ---
Subjective HPI/CC On Admission Date Seen by Provider: Mar 13, 2021 Time Seen by Provider: 12:30 Subjective/Events-last exam 03/13/2021: Patient doing well Change diet yesterday and doing much better today Check meds and labs Less fecal incontinence 03/12/2021: Patient doing well No major concerns Sleeping soundly at time of my rounds Changing diet to regular 03/11/2021: No major issues No pain reported Sugars reviewed Check meds and labs 03/10/2021: No major issues Setting up halfway for discharge No significant changes in status Bowels are loose 03/09/2021: Patient doing well No major issues Bowels are moving Check meds and labs Continuing to await for information from insurance for approval from [facility] 03/08/2021: Met with patient and family with son and ex- at bedside and 1 son on phone from [place]. 25-minute conversation ensued. 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 After detailed update on what we know and the possible plan family decided to pursue [facility] so we did submit that to insurance Son on phone in [place] could not understand why " no one is doing anything for him" and completely dissatisfied with all the care he is received from [facility] to [facility]. Tried to reassure patient and family and son on phone but very difficult to redirect son from negative statements. 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 03/07/21: Pt doing well Subtle change in his overall demeanor, he appears to be a bit more frightened and debilitated MRI has just come to bring him down for cervical and thoracic spine with and without IV contrast for [facility] to Review No BM for the last couple of days so will initiate laxatives Labs okay overall 03/06/2021: Patient doing well Sleeping well Spoke to Amy at [facility] as requested by delinquency prevention social worker and I have placed orders for MRI with and without IV contrast of cervical and thoracic spine and will need to have those clouded up into the system from [place] to review then hopefully video consultation will ensue No other concerns 03/05/2021: Patient doing well No major concerns [facility] appears to be willing to do a video visit We will likely need to do another MRI so will contact Amy at [facility] at [phone] on Sunday in order to order the MRI that they want then will communicate regarding the visit after that 03/04/21: Pt doing well No significant complaints per nursing staff Still working with therapy Checked meds and labs 03/03/2021: Patient doing well No straight cath needed Sugars are good Bowels are moving well Check meds and labs 03/02/2021: Patient doing well Holding Detrol due to incontinence Bowels are moving Straight cath required Sent all records to PCP from [id number] skilled care and recommended him to stay in the rehab 03/01/21: Awaiting NH placement In/out cath required multiple times so will reach out to Dr Welsh BM yesterday Checked meds and labs 02/28/21: Patient doing well Labs reviewed No pain reported Spoke to Dr Kennedy his PCP and updated him on everything about the case and the need to f/u [facility] referral Will fax all records to him at [phone] so he can have all of the records also Incontinence noted BM+ 02/27/21: Patient doing well We will speak to his primary care provider before he is discharged to the halfway to be sure he can follow-up on [facility] referral Bowels moved today Glucose 168 Check meds and labs 02/26/2021: Patient doing well Discussed [facility] referral care home being arranged in meantime Bowels are moving well 02/25/2021: Miscommunication with [place] in it does not appear that it will be a hospital hospital transfer Remains a Coelen lift Son here for family education Denies any new issues 02/24/2021: [facility] had reached out and reviewed the case and it appeared that he was in the midst of being accepted. Patient very excited about the chance to go to [facility] Denies any issues Still a Coleen lift 02/23/2021: Patient doing well Required in and out caths yesterday due to 490 retention Detrol has been started by urology [facility] still in process Bed mobility improved 02/22/2021: Patient doing well Urology started Detrol for incontinence [facility] pending Bowels are moving well Still requiring Coleen lift 02/21/2021: Patient reports no significant concerns Bladder scanning per urology rec No word from [facility] Incontinent of bowel today Labs look good 02/20/2021: Patient has no new complaints today Denies any new issues No pain is reported Incontinence is an issue Fecal incontinence also an issue 02/19/2021: Patient had an uneventful night Denies any new issues Working on bladder retraining Check meds and labs 02/18/2021: Patient doing well Has no complaints Cystoscopy to be done today by urology No pain is reported Bowel evacuation ordered 02/17/2021: Patient doing really well Bowels moved yesterday All records sent to [facility] Has no rectal tone May need a suppository to evacuate bowels and treated like a paraplegic Bottom wound appears to be very superficial on a cushion 02/16/2021: Pt doing well No issues Bowels moved yesterday and fecal incontinence Frausto cath in Cystoscopy by Dr. Welsh on Sunday02/15/2021: Pt doing a little better Frausto required and Dr. Welsh consulted Spot checks of oxygen without CPAP during the night are okay Still a Coleen-lift 02/14/2021: Pt doing well Condom catheter will be attempted Platelet count 108 Wound looks good BP and blood sugar good No pain Bowels are moving 02/13/2021: Patient doing well Has no needs Bowels are moving well No issues Sugars are reviewed 02/12/2021: Patient doing well Incontinent of bowel and bladder a lot Able to move himself and turn himself in bed Check meds and labs Cognitive deficit could preclude independent living 02/11/2021: Patient doing pretty well Dr. Rubio will be consulted Noncompliant with CPAP machine Oxygen was good last night at 90% Wound care consulted Dr. Pyle Sugars good Bowels are a bit loose and he does have fecal incontinence Review of Systems General: Fatigue, Malaise Neurological: Weakness, Incoordination Objective Exam Vital Signs Vital Signs Date Time Temp Pulse Resp B/P (MAP) Pulse Ox O2 Delivery O2 Flow Rate FiO2 03/13/21 20:54 Room Air 03/13/21 19:32 36.1 66 18 108/56 (73) 96 Capillary Refill : General Appearance: No Apparent Distress, WD/WN, Chronically ill HEENT: PERRL/EOMI, Normal ENT Inspection, Pharynx Normal Neck: Full Range of Motion, Normal Inspection, Non Tender, Supple, Carotid Bruit Respiratory: Chest Non Tender, Lungs Clear, Normal Breath Sounds, No Accessory Muscle Use, No Respiratory Distress Cardiovascular: Regular Rate, Rhythm, No Edema, No Gallop, No JVD, No Murmur, Normal Peripheral Pulses Gastrointestinal: Normal Bowel Sounds, No Organomegaly, No Pulsatile Mass, Non Tender, Soft Back: Normal Inspection, No CVA Tenderness, No Vertebral Tenderness Extremity: Normal Capillary Refill, Normal Inspection, Normal Range of Motion, Non Tender, No Calf Tenderness, No Pedal Edema Neurologic/Psychiatric: Alert, Oriented x3, Normal 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 FIM Transfers Therapy Code Descriptions/Definitions Functional [place] Measure: 0=Not Assessed/NA 4=Minimal Assistance 1=Total Assistance 5=Supervision or Setup 2=Maximal Assistance 6=Modified [place] 3=Moderate Assistance 7=Complete IndependenceSCALE: Activities may be completed with or without assistive devices. 9-Dflrmqeopf-wlbujrd completes the activity by him/herself with no assistance from a helper. 5-Set-up or Clean-up Assistance-helper sets up or cleans up; patient completes activity. [place] assists only prior to or following the activity. 4-Supervision or Touching Assistance-helper provides verbal cues and/or touchi ng/steadying and/or contact guard assistance as patient completes activity. Assistance may be provided throughout the activity or intermittently. 3-Partial/Moderate Assistance-helper does LESS THAN HALF the effort. [place] lifts, holds or supports trunk or limbs, but provides less than half the effort. 2-Substantial/Maximal Assistance-helper does MORE THAN HALF the effort. [place] lifts or holds trunk or limbs and provides more than half the effort. 1-Igzvanidh-mxrpnp does ALL the effort. Patient does none of the effort to complete the activity. Or, the assistance of 2 or more helpers is required for the patient to complete the activity. If activity was not attempted, code reason: 7-Patient Refused. 9-Not Applicable-not attempted and the patient did not perform the activity before the current illness, exacerbation or injury. 10-Not Attempted due to Environmental Limitations-(lack of equipment, weather restraints, etc.). 88-Not Attempted due to Medical Conditions or Safety Concerns. Roll Left to Right (QC): 6 Sit to Lying (QC): 1 Sit to Stand (QC): 1 Chair/Sxa-fi-Cuodc Xfer(QC): 1 (Coleen) Car Transfer (QC): 88 Gait Training Does the Patient Walk?: No and Walking Goal NOT indicated Walk 10 feet (QC): 88 Walk 50 ft with 2 Turns(QC): 88 Walk 150 ft (QC): 88 Walking 10ft/uneven surface-QC: 88 Wheelchair Training Does the Pt Use a Wheelchair?: Yes Distance: 100'x2 Wheel 50 ft with 2 turns (QC): 4 Wheel 150 ft (QC): 3 Type of Wheelchair: Manual Stair Training 1 Step (curb) (QC): 88 4 Steps (QC): 88 12 Steps (QC): 88 Balance Picking up an Object (QC): 88 ADL-Treatment Eating (QC): 6 (Pt able to complete own meal set up and use regular utensils to eat.) Oral Hygiene (QC): 4 Bathing Location: L Arm, R Arm, L Upper Leg, R Upper Leg, L Lower Leg (including foot), R Lower Leg (including foot), Chest, Abdomen, Perineal Area Shower/Bathe Self (QC): 3 Upper Body Dressing (QC): 3 Lower Body Dressing (QC): 1 On/Off Footwear (QC): 3 Toileting Hygiene (QC): 1 Toilet Transfer (QC): 1 Assessment/Plan Assessment and Plan Assess & Plan/Chief Complaint Assessment: 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 and subsequent neurological deficits Lumbar L4-L5 subarticular recess narrowing B/L Left-sided weakness Hepatic Hemangioma Systolic Heart Failure LFT elevation LBBB Previous hypotension Obesity CAD Dementia/cognitive impairment GERD PUD PVD Diabetic polyneuropathy Progressive weakness High risk of falling Gait disturbance Spasticity T2DM Constipation Edema HTN Paroxysmal A-fib Thrombocytopenia Urinary Retention Status post UTI (resolved) BAM on CPAP Cystoscopy on 02/18/2021 Plan: Aggressive PT, OT, and speech therapy Order basic lab work in the morning Review records, talk to his family members as they are more in tune with his medical condition then the patient himself Neurology follow up Consult Dr. Rubio for A. fib 02/11/2021: Supportive care Dr. Rubio consult Poor memory recall noted 02/12/2021: Incontinence care Aggressive therapy 02/13/2021: Incontinence care Aggressive therapy 02/14/2021: Attempt condom catheter due to incontinence Monitor for retention Dr. Welsh consult 02/15/2021: Appreciate urology management Aggressive therapy Send records to [facility] 02/16/2021: Supportive care Send records to [facility] from [facility] Continue aggressive treatment Cystoscopy tomorrow 02/17/2021: Cystoscopy tomorrow Bowel evacuation 02/18/2021: Cystoscopy Appreciate urology 02/19/2021: Supportive care Urology appreciated 02/20/2021: Supportive care Incontinence care 02/21/2021: Supportive care Incontinence care Appreciate urology 02/22/2021: Detrol for incontinence Appreciate urology Continue aggressive treatment 02/23/2021 Patient will need nursing care at discharge Appreciate urology 02/24/2021: [facility] transfer? Continue aggressive therapy 02/25/2021: care home admission [facility] still pending 02/26/2021: Await halfway placement [facility] referral 02/27/21: Monitor closely Await NH placement Will speak to Dr Kennedy 02/28/21: Updated PCP Will send records NHP 03/01/21: Await placement Send records to Dr Kennedy 03/02/2021: Discontinue Detrol Supportive care 03/03/2021: Patient doing well Maintain urology management 03/04/21: Monitor weakness Sugar management 03/05/2021: We will contact [facility] on Sunday for additional MRIs 03/06/2021: Ordered MRI with and without IV contrast of cervical and thoracic spine per [facility] request that will be done tomorrow 03/07/2021: Review MRI Disposition 03/08/2021: Family meeting for 25 minutes Additional 30 minutes in review of scans and review of data 03/09/2021: Continue aggressive therapy Await [facility] decision from insurance 03/10/2021: Continue aggressive therapy care home discharge 03/11/2021: Supportive care care home at discharge 03/12/2021: Change diet to regular for Sunday Supportive care 03/13/2021: Regular diet Supportive care Check labs in the morning (1) Cervical spinal cord compression (2) Atrial fibrillation (3) Anticoagulation adequate with anticoagulant therapy (4) Urinary retention CARMELLA ESTRADA DO Mar 13, 2021 07:12
[2021-03-13] MEDS: MAGNESIUM OXIDE (MAG-OX)400 MG TAB PO SCH (09:41)
[2021-03-13] MEDS: FAMOTIDINE 20 MG (PEPCID) TABLET PO SCH (09:41)
[2021-03-13] MEDS: FERROUS SULF 325 MG (IRON) TAB PO SCH (09:42)
[2021-03-13] MEDS: meTOprolol SUCCINATE 100 MG (TOPROL XL) TAB PO SCH (09:42)
[2021-03-13] MEDS: OMEGA 3 (FISH OIL) 1000 MG CAP PO SCH ×2 (09:42→21:09)
[2021-03-13] MEDS: FUROSEMIDE 20 MG (LASIX) TAB PO SCH (09:42)
[2021-03-13] MEDS: CALCIUM CARB + VIT D 600 MG (CALCARB + D) TAB PO SCH (09:42)
[2021-03-13] MEDS: polyethylene glycoL POWDER 17 GM (MIRALAX) PACK PO SCH ×2 (09:42→19:25)
[2021-03-13] MEDS: LOSARTAN 50 MG (COZAAR) TAB PO SCH (09:42)
[2021-03-13] MEDS: APIXABAN 5 MG (ELIQUIS) TABLET PO SCH ×2 (09:42→21:09)
[2021-03-13] MEDS: lisINopril 10 MG (PRINIVIL) TABLET PO SCH (09:44)
[2021-03-13] MEDS: SENNA W/DOCUSATE (SENOKOT S) TABLET PO SCH ×2 (09:44→19:25)
[2021-03-13] MEDS: DOCUSATE SODIUM 100 MG (COLACE) CAP PO SCH ×2 (09:44→19:25)
[2021-03-13] MEDS: TAMSULOSIN 0.4 MG (FLOMAX) CAP PO SCH (18:17)
[2021-03-13] MEDS: DIGOXIN 0.125 MG (LANOXIN) TAB PO SCH (18:17)
[2021-03-13 19:32] VITALS: BP 108/56
[2021-03-13] MEDS: MELATONIN 3 MG TABLET PO PRN (21:09)
[2021-03-13] MEDS: SIMvastatin 40 MG (ZOCOR) TAB PO SCH (21:09)
[2021-03-14 05:34] LABS: BASOPHILS # (AUTO) 0.1 10^3/uL (0.0-0.1); BASOPHILS % (AUTO) 1 % (0-10); EOSINOPHILS # (AUTO) 0.2 10^3/uL (0.0-0.3); EOSINOPHILS % (AUTO) 3 % (0-10); HEMATOCRIT 40 % (40-54); HEMOGLOBIN 13.6 g/dL (13.3-17.7); LYMPHOCYTES # (AUTO) 1.4 10^3/uL (1.0-4.0); LYMPHOCYTES % (AUTO) 26 % (12-44); MEAN CORPUSCULAR HEMOGLOBIN 32 pg (25-34); MEAN CORPUSCULAR HGB CONC 34 g/dL (32-36); MEAN CORPUSCULAR VOLUME 95 fL (80-99); MEAN PLATELET VOLUME 12.2 fL (9.0-12.2); MONOCYTES # (AUTO) 0.7 10^3/uL (0.0-1.0); MONOCYTES % (AUTO) 13 % (0-12); NEUTROPHILS # (AUTO) 3.1 10^3/uL (1.8-7.8); NEUTROPHILS % (AUTO) 57 % (42-75); PLATELET COUNT 138 10^3/uL (130-400); WHITE BLOOD COUNT 5.5 10^3/uL (4.3-11.0)
[2021-03-14] MEDS: KCL 10 MEQ TAB (MICRO K) PO SCH (05:41)
[2021-03-14] MEDS: LEVOTHYROXINE 100 MCG (LEVOTHROID) TAB PO SCH (05:41)
[2021-03-14] MEDS: BETHANECHOL 10 MG (URECHOLINE) TAB PO SCH ×4 (05:41→21:03)
[2021-03-14] MEDS: MULTIVIT W/MINERALS TAB (THERAGRAN M) PO SCH (05:41)
[2021-03-14 05:46] LABS: POTASSIUM 3.7 MMOL/L (3.6-5.0)
[2021-03-14 05:47] LABS: CALCIUM 8.6 MG/DL (8.5-10.1)
[2021-03-14] MEDS: inSUlin ASPART (NovoLOG) 1 UNIT/0.01 ML (CHARGE PER UNIT) SC SCH ×4 (05:47→21:04)
[2021-03-14 05:48] LABS: TOTAL PROTEIN 5.3 GM/DL (6.4-8.2)
[2021-03-14 05:50] LABS: BILIRUBIN,TOTAL 0.9 MG/DL (0.1-1.0)
[2021-03-14 05:52] LABS: CREATININE SERUM 0.82 MG/DL (0.60-1.30)
[2021-03-14 07:33] VITALS: BP 121/59
[2021-03-14 07:53] VITALS: BP 155/95
[2021-03-14] MEDS: FUROSEMIDE 20 MG (LASIX) TAB PO SCH (08:00)
[2021-03-14] MEDS: LOSARTAN 50 MG (COZAAR) TAB PO SCH (08:00)
[2021-03-14] MEDS: CALCIUM CARB + VIT D 600 MG (CALCARB + D) TAB PO SCH (08:00)
[2021-03-14] MEDS: OMEGA 3 (FISH OIL) 1000 MG CAP PO SCH ×2 (08:00→21:02)
[2021-03-14] MEDS: APIXABAN 5 MG (ELIQUIS) TABLET PO SCH ×2 (08:00→21:03)
[2021-03-14] MEDS: lisINopril 10 MG (PRINIVIL) TABLET PO SCH (08:00)
[2021-03-14] MEDS: FERROUS SULF 325 MG (IRON) TAB PO SCH (08:00)
[2021-03-14] MEDS: MAGNESIUM OXIDE (MAG-OX)400 MG TAB PO SCH (08:00)
[2021-03-14] MEDS: FAMOTIDINE 20 MG (PEPCID) TABLET PO SCH (08:00)
[2021-03-14] MEDS: meTOprolol SUCCINATE 100 MG (TOPROL XL) TAB PO SCH (08:01)
[2021-03-14] MEDS: SENNA W/DOCUSATE (SENOKOT S) TABLET PO SCH ×2 (08:04→21:02)
[2021-03-14] MEDS: polyethylene glycoL POWDER 17 GM (MIRALAX) PACK PO SCH ×2 (08:05→21:04)
[2021-03-14] MEDS: DOCUSATE SODIUM 100 MG (COLACE) CAP PO SCH ×2 (08:05→21:02)
--- NOTE | 2021-03-14 09:54 | Progress Note - Urology ---
Progress Note-Urology Progress Notes/Assess & Plan Progress/Assessment & Plan WE REVIEWED THE RECORD RECENTLY SENT FROM THE [facility]. I HAD A LENGTHY DISCUSSION WITH PATIENT ON OPTIONS. PATIENT HAS COMBINATION OF RETENTION AND INCONTINENCE AND TREATING EACH ONE ANTAGONIZES THE OTHER. I DISCUSSED WITH HIM BOTOX INJECTIONS OR ARTIFICIAL SPHINCTER AND TOLD HIM TO DISCUSS WITH GOPAL OR DR ARORA DEPENDING ON WHERE HE IS GOING AFTER HERE AND HE WILL DO SO. (30 MINUTES) Final Diagnosis RETENTION AND INCONTINENCE YUAN NICHOLSON MD Mar 14, 2021 09:53
--- NOTE | 2021-03-14 09:59 | Physical Therapy Daily Note ---
PT Daily Note-Current Subjective Patient in recliner pre tx, agrees to PT, has no complaints of pain. Will be co-treating with OT due to poor patient mobility, strength, endurance, poor trunk strength and stability, coordinate UE and LE during activity, safety and reduce risk of falls. Appearance Patient in bed post tx with nurse call, phone, tray, all needs met. Mental Status Patient Orientation: Normal For Age Transfers SCALE: Activities may be completed with or without assistive devices. 8-Yubaobtzah-rzquifu completes the activity by him/herself with no assistance from a helper. 5-Set-up or Clean-up Assistance-helper sets up or cleans up; patient completes activity. [place] assists only prior to or following the activity. 4-Supervision or Touching Assistance-helper provides verbal cues and/or touching/steadying and/or contact guard assistance as patient completes activity. Assistance may be provided throughout the activity or intermittently. 3-Partial/Moderate Assistance-helper does LESS THAN HALF the effort. [place] lifts, holds or supports trunk or limbs, but provides less than half the effort. 2-Substantial/Maximal Assistance-helper does MORE THAN HALF the effort. [place] lifts or holds trunk or limbs and provides more than half the effort. 1-Jmrvfwpvs-kzgcsy does ALL the effort. Patient does none of the effort to complete the activity. Or, the assistance of 2 or more helpers is required for the patient to complete the activity. If activity was not attempted, code reason: 7-Patient Refused. 9-Not Applicable-not attempted and the patient did not perform the activity before the current illness, exacerbation or injury. 10-Not Attempted due to Environmental Limitations-(lack of equipment, weather restraints, etc.). 88-Not Attempted due to Medical Conditions or Safety Concerns. Roll Left & Right (QC): 3 Chair/Yqq-cp-Sjpgw Xfer(QC): 1 Patient hoyered to shower chair and take to shower room. Patient undresses hospital gown, showers, taken back to his room. Patient is hoyered to bed, has to roll to each side to remove ck sling, has to roll a couple of times to place replace bandages, and has to roll again a couple of times to put on brief. Treatments PT performed transfers, rolling, positioning and safety during activity, OT performed shower, dressing, assisted with transfers. Assessment Current Status: Poor Progress no change in mobility PT Short Term Goals Short Term Goals Time Frame: Feb 17, 2021 Roll Left & Right: 3 Sit to lyin Lying to sitting on side of be: 3 Wheel 50ft w/2 turns: 4 Wheel 150 feet: 4 PT Plastic Products Sales Representative Goals Plastic Products Sales Representative Goals PT Skilled Nursing Goals Time Frame: Mar 03, 2021 Roll Left & Right (QC): 4 Sit to Lying (QC): 4 Lying-Sitting on Side/Bed(QC): 4 Sit to Stand (QC): 88 Chair/Pto-uc-Uvsou Xfer(QC): 88 Toilet Transfer (QC): 88 Car Transfer (QC): 88 Does the Patient Walk: No and Walking Goal NOT indicated Walk 10 feet (QC): 88 Walk 50ft with 2 Turns (QC): 88 Walk 150 ft (QC): 88 Walking 10ft on Uneven Surface: 88 1 Step (curb) (QC): 88 4 Steps (QC): 88 12 Steps (QC): 88 Picking up an Object (QC): 88 Wheel 50 feet with 2 turns (QC: 6 Wheel 150 feet: 6 PT Plan Problem List Problem List: Activity Tolerance, Functional Strength, Safety, Balance, Gait, Transfer, Bed Mobility, ROM Treatment/Plan Treatment Plan: Continue Plan of Care Treatment Plan: Bed Mobility, Education, Functional Activity Jorge, Functional Strength, Group Therapy, Gait, Safety, Therapeutic Exercise, Transfers Treatment Duration: Mar 03, 2021 Frequency: At least 5 of 7 days/Wk (IRF) Estimated Hrs Per Day: 1.5 hours per day Patient and/or Family Agrees t: Yes Safety Risks/Education Patient Education: Transfer Techniques, Correct Positioning, Safety Issues Teaching Recipient: Patient Teaching Methods: Demonstration, Discussion Response to Teaching: Reinforcement Needed Time/GCodes Time In: 0900 Time Out: 1000 Total Billed Treatment Time: 60 Total Billed Treatment 1 visit FA 60' TARA MCCOY PT Mar 14, 2021 09:59
--- NOTE | 2021-03-14 10:06 | Occupational Ther Daily Note ---
OT Current Status-Daily Note Subjective Denies pain, agreeable to treatment. Will be co-treating with PT due to poor patient mobility, strength, endurance, poor trunk strength and stability, coordinate UE and LE during activity, safety and reduce risk of falls. Appearance Pt returned to supine in bed, all needs within reach. ADL-Treatment Therapy Code Descriptions/Definitions Functional [place] Measure: 0=Not Assessed/NA 4=Minimal Assistance 1=Total Assistance 5=Supervision or Setup 2=Maximal Assistance 6=Modified [place] 3=Moderate Assistance 7=Complete IndependenceSCALE: Activities may be completed with or without assistive devices. 8-Oxsqgxprrh-wftmpta completes the activity by him/herself with no assistance from a helper. 5-Set-up or Clean-up Assistance-helper sets up or cleans up; patient completes activity. [place] assists only prior to or following the activity. 4-Supervision or Touching Assistance-helper provides verbal cues and/or touching/steadying and/or contact guard assistance as patient completes activity. Assistance may be provided throughout the activity or intermittently. 3-Partial/Moderate Assistance-helper does LESS THAN HALF the effort. [place] lifts, holds or supports trunk or limbs, but provides less than half the effort. 2-Substantial/Maximal Assistance-helper does MORE THAN HALF the effort. [place] lifts or holds trunk or limbs and provides more than half the effort. 6-Jsaevwsjq-uwskdi does ALL the effort. Patient does none of the effort to complete the activity. Or, the assistance of 2 or more helpers is required for the patient to complete the activity. If activity was not attempted, code reason: 7-Patient Refused. 9-Not Applicable-not attempted and the patient did not perform the activity before the current illness, exacerbation or injury. 10-Not Attempted due to Environmental Limitations-(lack of equipment, weather restraints, etc.). 88-Not Attempted due to Medical Conditions or Safety Concerns. Shower/Bathe Self (QC): 3 Lower Body Dressing (QC): 1 Toileting Hygiene (QC): 1 Toilet Transfer (QC): 1 All transfers dependent by use of ck. Shower performed; 100% in sitting (shower w/c). Buttocks washed post shower while sidelying in bed. Pt utilized LHS to wash below knees. Min a for thoroughness and washing bottom of L foot secondary to weakness and inability to lift LLE. Pt appears to have better trunk control this date. He was able to demonstrate bending at waist and bringing self back to upright without pulling on grab bar today. Mod cues needed for rinsing soap off body. Pt returned to bed for LB dressing and to don new gown. Dep to thread feet into brief and pull up over hips while rolling R/L. Several rolls performed for placement/removal of ck sling and LB dressing/guillermo care. Poor carryover on sequencing and bending R knee with each roll to L. Dependent to bend L knee. Education OT Patient Education: Correct positioning, Disease process, Energy conservation, Modified ADL techniques, Progress toward Goal/Update tx plan, Pur pose of tx/functional activities, Reviewed precautions, Rehab process, Safety issues, Transfer techniques, Use of adapted equipment Teaching Recipient: Patient Teaching Methods: Demonstration, Discussion Response to Teaching: Verbalize Understanding, Return Demonstration, Reinforcement Needed OT Short Term Goals Short Term Goals Time Frame: Feb 24, 2021 Eatin Oral hygiene: 4 Toileting hygiene: 2 Shower/bathe self: 2 Upper body dressin Lower body dressin Putting on/taking off footwear: 3 OT Skilled Nursing Goals Marketing Support Coordinator Goals Time Frame: Mar 25, 2021 Eating (QC): 5 Oral Hygiene (QC): 5 Toileting Hygiene (QC): 2 Shower/Bathe Self (QC): 3 (min) Upper Body Dressing (QC): 2 Lower Body Dressing (QC): 2 On/Off Footwear (QC): 3 (min) 1=Demonstrate adherence to instructed precautions during ADL tasks. 2=Patient will verbalize/demonstrate understanding of assistive devices/modifications for ADL. 3=Patient will improve strength/tolerance for activity to enable patient to perform ADL's. OT Education/Plan Problem List/Assessment Assessment: Decreased Activ Tolerance, Decreased Safety Aware, Decreased UE Strength, Dependent Transfers, Impaired Bed Mobility, Impaired Cognition, Impaired Coordination, Impaired Funct Balance, Impaired I ADL's, Impaired Self- Care Skills, Restricted Funct UE ROM Discharge Recommendations Plan/Recommendations: Continue POC Treatment Plan/Plan of Care Treatment,Training & Education: Yes Patient would benefit from OT for education, treatment and training to promote independence in ADL's, mobility, safety and/or upper extremity function for ADL's. Plan of Care: ADL Retraining, Functional Mobility, Group Exercise/Act as Ind, UE Funct Exercise/Act, W/C Management Training Treatment Duration: Mar 04, 2021 Frequency: At least 5 of 7 days/Wk (IRF) Estimated Hrs Per Day: 1.5 hours per day Agreement: Yes Rehab Potential: Poor Time/GCodes Start Time: 09:00 Stop Time: 10:00 Total Time Billed (hr/min): 60 Billed Treatment Time 1 visit ADL x4 Antonieta Angel OT Mar 14, 2021 10:06
--- NOTE | 2021-03-14 10:46 | PM&R Progress Note ---
Subjective HPI/CC On Admission Date Seen by Provider: Mar 14, 2021 Time Seen by Provider: 10:45 Subjective/Events-last exam 03/14/2021: Patient doing well No significant changes No pain is reported 03/13/2021: Patient doing well Change diet yesterday and doing much better today Check meds and labs Less fecal incontinence 03/12/2021: Patient doing well No major concerns Sleeping soundly at time of my rounds Changing diet to regular 03/11/2021: No major issues No pain reported Sugars reviewed Check meds and labs 03/10/2021: No major issues Setting up skilled nursing for discharge No significant changes in status Bowels are loose 03/09/2021: Patient doing well No major issues Bowels are moving Check meds and labs Continuing to await for information from insurance for approval from [facility] 03/08/2021: Met with patient and family with son and ex- at bedside and 1 son on phone from [place]. 25-minute conversation ensued. 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 After detailed update on what we know and the possible plan family decided to pursue [facility] so we did submit that to insurance Son on phone in [place] could not understand why " no one is doing anything for him" and completely dissatisfied with all the care he is received from [facility] to [facility]. Tried to reassure patient and family and son on phone but very difficult to redirect son from negative statements. 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 03/07/21: Pt doing well Subtle change in his overall demeanor, he appears to be a bit more frightened and debilitated MRI has just come to bring him down for cervical and thoracic spine with and without IV contrast for [facility] to Review No BM for the last couple of days so will initiate laxatives Labs okay overall 03/06/2021: Patient doing well Sleeping well Spoke to Amy at [facility] as requested by bilingual social worker and I have placed orders for MRI with and without IV contrast of cervical and thoracic spine and will need to have those clouded up into the system from [facility] to review then hopefully video consultation will ensue No other concerns 03/05/2021: Patient doing well No major concerns [facility] appears to be willing to do a video visit We will likely need to do another MRI so will contact Amy at [facility] at [phone] on Sunday in order to order the MRI that they want then will communicate regarding the visit after that 03/04/21: Pt doing well No significant complaints per nursing staff Still working with therapy Checked meds and labs 03/03/2021: Patient doing well No straight cath needed Sugars are good Bowels are moving well Check meds and labs 03/02/2021: Patient doing well Holding Detrol due to incontinence Bowels are moving Straight cath required Sent all records to PCP from [id number] skilled care and recommended him to stay in the rehab 03/01/21: Awaiting NH placement In/out cath required multiple times so will reach out to Dr Welsh BM yesterday Checked meds and labs 02/28/21: Patient doing well Labs reviewed No pain reported Spoke to Dr Kennedy his PCP and updated him on everything about the case and the need to f/u [facility] referral Will fax all records to him at [phone] so he can have all of the records also Incontinence noted BM+ 02/27/21: Patient doing well We will speak to his primary care provider before he is discharged to [facility] skilled nursing to be sure he can follow-up on [facility] referral Bowels moved today Glucose 168 Check meds and labs 02/26/2021: Patient doing well Discussed [facility] referral [facility]DC being arranged in meantime Bowels are moving well 02/25/2021: Miscommunication with [facility] in it does not appear that it will be a hospital hospital transfer Remains a Coleen lift Son here for family education Denies any new issues 02/24/2021: [facility] had reached out and reviewed the case and it appeared that he was in the midst of being accepted. Patient very excited about the chance to go to [facility] Denies any issues Still a Coleen lift 02/23/2021: Patient doing well Required in and out caths yesterday due to 490 retention Detrol has been started by urology [facility] still in process Bed mobility improved 02/22/2021: Patient doing well Urology started Detrol for incontinence [facility] pending Bowels are moving well Still requiring Coleen lift 02/21/2021: Patient reports no significant concerns Bladder scanning per urology rec No word from [facility] Incontinent of bowel today Labs look good 02/20/2021: Patient has no new complaints today Denies any new issues No pain is reported Incontinence is an issue Fecal incontinence also an issue 02/19/2021: Patient had an uneventful night Denies any new issues Working on bladder retraining Check meds and labs 02/18/2021: Patient doing well Has no complaints Cystoscopy to be done today by urology No pain is reported Bowel evacuation ordered 02/17/2021: Patient doing really well Bowels moved yesterday All records sent to [facility] Has no rectal tone May need a suppository to evacuate bowels and treated like a paraplegic Bottom wound appears to be very superficial on a cushion 02/16/2021: Pt doing well No issues Bowels moved yesterday and fecal incontinence Frausto cath in Cystoscopy by Dr. Welsh on Sunday02/15/2021: Pt doing a little better Frausto required and Dr. Welsh consulted Spot checks of oxygen without CPAP during the night are okay Still a Coleen-lift 02/14/2021: Pt doing well Condom catheter will be attempted Platelet count 108 Wound looks good BP and blood sugar good No pain Bowels are moving 02/13/2021: Patient doing well Has no needs Bowels are moving well No issues Sugars are reviewed 02/12/2021: Patient doing well Incontinent of bowel and bladder a lot Able to move himself and turn himself in bed Check meds and labs Cognitive deficit could preclude independent living 02/11/2021: Patient doing pretty well Dr. Rubio will be consulted Noncompliant with CPAP machine Oxygen was good last night at 90% Wound care consulted Dr. Pyle Sugars good Bowels are a bit loose and he does have fecal incontinence Review of Systems General: Fatigue, Malaise Neurological: Weakness, Incoordination Objective Exam Vital Signs Vital Signs Date Time Temp Pulse Resp B/P (MAP) Pulse Ox O2 Delivery O2 Flow Rate FiO2 03/14/21 20:00 97 Room Air 03/14/21 19:45 36.2 60 16 93/54 (67) Capillary Refill : General Appearance: No Apparent Distress, WD/WN, Chronically ill HEENT: PERRL/EOMI, Normal ENT Inspection, Pharynx Normal Neck: Full Range of Motion, Normal Inspection, Non Tender, Supple, Carotid Bru it Respiratory: Chest Non Tender, Lungs Clear, Normal Breath Sounds, No Accessory Muscle Use, No Respiratory Distress Cardiovascular: Regular Rate, Rhythm, No Edema, No Gallop, No JVD, No Murmur, Normal Peripheral Pulses Gastrointestinal: Normal Bowel Sounds, No Organomegaly, No Pulsatile Mass, Non Tender, Soft Back: Normal Inspection, No CVA Tenderness, No Vertebral Tenderness Extremity: Normal Capillary Refill, Normal Inspection, Normal Range of Motion, Non Tender, No Calf Tenderness, No Pedal Edema Neurologic/Psychiatric: Alert, Oriented x3, Normal Mood/Affect, gear changer II-XII Norm as Tested, Abnormal Gait (Unable to ambulate), Depressed Affect, Motor Weakness (Left side 3/5) Skin: Normal Color, Warm/Dry Lymphatic: No Adenopathy Results/Procedures Lab Laboratory Tests 03/14/21 05:25 Patient resulted labs reviewed. FIM Transfers Therapy Code Descriptions/Definitions Functional [place] Measure: 0=Not Assessed/NA 4=Minimal Assistance 1=Total Assistance 5=Supervision or Setup 2=Maximal Assistance 6=Modified [place] 3=Moderate Assistance 7=Complete IndependenceSCALE: Activities may be completed with or without assistive devices. 4-Hcbghlrnxz-kxfxrvt completes the activity by him/herself with no assistance from a helper. 5-Set-up or Clean-up Assistance-helper sets up or cleans up; patient completes activity. [place] assists only prior to or following the activity. 4-Supervision or Touching Assistance-helper provides verbal cues and/or touching/steadying and/or contact guard assistance as patient completes activity. Assistance may be provided throughout the activity or intermittently. 3-Partial/Moderate Assistance-helper does LESS THAN HALF the effort. [place] lifts, holds or supports trunk or limbs, but provides less than half the effort. 2-Substantial/Maximal Assistance-helper does MORE THAN HALF the effort. [place] lifts or holds trunk or limbs and provides more than half the effort. 8-Ogyswqnie-fishzv does ALL the effort. Patient does none of the effort to complete the activity. Or, the assistance of 2 or more helpers is required for the patient to complete the activity. If activity was not attempted, code reason: 7-Patient Refused. 9-Not Applicable-not attempted and the patient did not perform the activity before the current illness, exacerbation or injury. 10-Not Attempted due to Environmental Limitations-(lack of equipment, weather restraints, etc.). 88-Not Attempted due to Medical Conditions or Safety Concerns. Roll Left to Right (QC): 3 Sit to Lying (QC): 1 Sit to Stand (QC): 1 Chair/Cob-yd-Hfphr Xfer(QC): 1 Car Transfer (QC): 88 Gait Training Does the Patient Walk?: No and Walking Goal NOT indicated Walk 10 feet (QC): 88 Walk 50 ft with 2 Turns(QC): 88 Walk 150 ft (QC): 88 Walking 10ft/uneven surface-QC: 88 Wheelchair Training Does the Pt Use a Wheelchair?: Yes Distance: 100'x2 Wheel 50 ft with 2 turns (QC): 4 Wheel 150 ft (QC): 3 Type of Wheelchair: Manual Stair Training 1 Step (curb) (QC): 88 4 Steps (QC): 88 12 Steps (QC): 88 Balance Picking up an Object (QC): 88 ADL-Treatment Eating (QC): 6 (Pt able to complete own meal set up and use regular utensils to eat.) Oral Hygiene (QC): 4 Bathing Location: L Arm, R Arm, L Upper Leg, R Upper Leg, L Lower Leg (including foot), R Lower Leg (including foot), Chest, Abdomen, Perineal Area Shower/Bathe Self (QC): 3 Upper Body Dressing (QC): 3 Lower Body Dressing (QC): 1 On/Off Footwear (QC): 3 Toileting Hygiene (QC): 1 Toilet Transfer (QC): 1 Assessment/Plan Assessment and Plan Assess & Plan/Chief Complaint Assessment: 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 and subsequent neurological deficits Lumbar L4-L5 subarticular recess narrowing B/L Left-sided weakness Hepatic Hemangioma Systolic Heart Failure LFT elevation LBBB Previous hypotension Obesity CAD Dementia/cognitive impairment GERD PUD PVD Diabetic polyneuropathy Progressive weakness High risk of falling Gait disturbance Spasticity T2DM Constipation Edema HTN Paroxysmal A-fib Thrombocytopenia Urinary Retention Status post UTI (resolved) BAM on CPAP Cystoscopy on 02/18/2021 Plan: Aggressive PT, OT, and speech therapy Order basic lab work in the morning Review records, talk to his family members as they are more in tune with his medical condition then the patient himself Neurology follow up Consult Dr. Rubio for A. fib 02/11/2021: Supportive care Dr. Rubio consult Poor memory recall noted 02/12/2021: Incontinence care Aggressive therapy 02/13/2021: Incontinence care Aggressive therapy 02/14/2021: Attempt condom catheter due to incontinence Monitor for retention Dr. Welsh consult 02/15/2021: Appreciate urology management Aggressive therapy Send records to [facility] 02/16/2021: Supportive care Send records to [facility] from [facility] Continue aggressive treatment Cystoscopy tomorrow 02/17/2021: Cystoscopy tomorrow Bowel evacuation 02/18/2021: Cystoscopy Appreciate urology 02/19/2021: Supportive care Urology appreciated 02/20/2021: Supportive care Incontinence care 02/21/2021: Supportive care Incontinence care Appreciate urology 02/22/2021: Detrol for incontinence Appreciate urology Continue aggressive treatment 02/23/2021 Patient will need nursing care at discharge Appreciate urology 02/24/2021: [facility] transfer? Continue aggressive therapy 02/25/2021: [facility]DC admission [facility] still pending 02/26/2021: Await skilled nursing placement [facility] referral 02/27/21: Monitor closely Await NH placement Will speak to Dr Kennedy 02/28/21: Updated PCP Will send records NHP 03/01/21: Await placement Send records to Dr Kennedy 03/02/2021: Discontinue Detrol Supportive care 03/03/2021: Patient doing well Maintain urology management 03/04/21: Monitor weakness Sugar management 03/05/2021: We will contact [facility] on Sunday for additional MRIs 03/06/2021: Ordered MRI with and without IV contrast of cervical and thoracic spine per [facility] request that will be done tomorrow 03/07/2021: Review MRI Disposition 03/08/2021: Family meeting for 25 minutes Additional 30 minutes in review of scans and review of data 03/09/2021: Continue aggressive therapy Await [facility] decision from insurance 03/10/2021: Continue aggressive therapy [facility] discharge 03/11/2021: Supportive care [facility] at discharge 03/12/2021: Change diet to regular for Sunday Supportive care 03/13/2021: Regular diet Supportive care Check labs in the morning 03/14/2021: Await final approval from insurance (1) Cervical spinal cord compression (2) Atrial fibrillation (3) Anticoagulation adequate with anticoagulant therapy (4) Urinary retention CARMELLA ESTRADA DO Mar 14, 2021 10:46
--- NOTE | 2021-03-14 11:40 | Progress Note ---
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 Multiple comorbidities including HTN, GERD, BAM, PVD, T2DM, Afib, urine retention, CAD. OT: demonstrates poor progress with hygiene and dressing activities, requiring significant assistance after 32 days of aggressive therapy and continues to have a poor prognosis. PT: demonstrates poor progress with mobility and transfers, unable to walk, uses wheelchair with some assistance. Poor prognosis for improvement. Plan: Pending insurance approval of transfer to [facility]. Otherwise, discharge to local [facility]. NIA ESTRADA DO 03/15/21 0459: Supervisory-Addendum Brief Verification & Attestation Participated in pt care: history, MDM, physical Personally performed: exam, history, MDM, supervision of care Care discussed with: Medical Student Procedures: n/a Results interpretation: Verified all documentation Verification and Attestation of Medical Student E/M Service A medical student performed and documented this service in my presence. I reviewed and verified all information documented by the medical student and made modifications to such information, when appropriate. I personally performed the physical exam and medical decision making. Nia Estrada, Mar 15, 2021,04:58 ESAU MORGAN MED STUDENT Mar 14, 2021 11:40 NIA ESTRADA DO Mar 15, 2021 04:59
--- NOTE | 2021-03-14 13:11 | Occupational Ther Daily Note ---
OT Current Status-Daily Note Subjective Pt denies pain, agreeable to treatment. Appearance Pt remained supine in bed, all needs within reach at end of sessions. Mental Status/Objective Patient Orientation: Person, Place ADL-Treatment Therapy Code Descriptions/Definitions Functional [place] Measure: 0=Not Assessed/NA 4=Minimal Assistance 1=Total Assistance 5=Supervision or Setup 2=Maximal Assistance 6=Modified [place] 3=Moderate Assistance 7=Complete IndependenceSCALE: Activities may be completed with or without assistive devices. 0-Ewdwfvfeqw-cavslcw completes the activity by him/herself with no assistance from a helper. 5-Set-up or Clean-up Assistance-helper sets up or cleans up; patient completes activity. [place] assists only prior to or following the activity. 4-Supervision or Touching Assistance-helper provides verbal cues and/or touching/steadying and/or contact guard assistance as patient completes activity. Assistance may be provided throughout the activity or intermittently. 3-Partial/Moderate Assistance-helper does LESS THAN HALF the effort. [place] lifts, holds or supports trunk or limbs, but provides less than half the effort. 2-Substantial/Maximal Assistance-helper does MORE THAN HALF the effort. [place] lifts or holds trunk or limbs and provides more than half the effort. 3-Hryuevpoi-pickuy does ALL the effort. Patient does none of the effort to complete the activity. Or, the assistance of 2 or more helpers is required for the patient to complete the activity. If activity was not attempted, code reason: 7-Patient Refused. 9-Not Applicable-not attempted and the patient did not perform the activity before the current illness, exacerbation or injury. 10-Not Attempted due to Environmental Limitations-(lack of equipment, weather restraints, etc.). 88-Not Attempted due to Medical Conditions or Safety Concerns. Other Treatment Pt participated in UE exercises with goal to improve strength, rom, and coordination for adls and transfers. 10 x2 in all planes. 2# hand held weight utilized for all RUE exercises. LUE-1/2 pound weight on first set, No resistance on second set. Pt often fatigues on second set and requires AAROM to finish remaining 3-4 reps on Left. Several rest breaks needed after each exercise. Pt often needing assist for maintaining control of L wrist. Due to inability to control weight in L hand, OT provided pt with Velcro weighted rosalba on L hand. AAROM-PROM at L wrist; Tapping at extensor muscle belly to assist in facilitating a voluntary contraction. Education OT Patient Education: Correct positioning, Energy conservation, Exercise program, Modified ADL techniques, Progress toward Goal/Update tx plan, Purpose of tx/functional activities, Reviewed precautions, Rehab process, Safety issues Teaching Recipient: Patient Teaching Methods: Demonstration, Discussion Response to Teaching: Verbalize Understanding, Return Demonstration, Reinforcement Needed OT Short Term Goals Short Term Goals Time Frame: Feb 24, 2021 Eatin Oral hygiene: 4 Toileting hygiene: 2 Shower/bathe self: 2 Upper body dressin Lower body dressin Putting on/taking off footwear: 3 OT [facility] Goals Rail Assembler Goals Time Frame: Mar 25, 2021 Eating (QC): 5 Oral Hygiene (QC): 5 Toileting Hygiene (QC): 2 Shower/Bathe Self (QC): 3 (min) Upper Body Dressing (QC): 2 Lower Body Dressing (QC): 2 On/Off Footwear (QC): 3 (min) 1=Demonstrate adherence to instructed precautions during ADL tasks. 2=Patient will verbalize/demonstrate understanding of assistive devices/modifications for ADL. 3=Patient will improve strength/tolerance for activity to enable patient to perform ADL's. OT Education/Plan Problem List/Assessment Assessment: Decreased Activ Tolerance, Decreased Safety Aware, Decreased UE Strength, Dependent Transfers, Impaired Bed Mobility, Impaired Cognition, Impaired Coordination, Impaired Funct Balance, Impaired I ADL's, Impaired Self- Care Skills, Restricted Funct UE ROM Discharge Recommendations Plan/Recommendations: Continue POC Treatment Plan/Plan of Care Treatment,Training & Education: Yes Patient would benefit from OT for education, treatment and training to promote independence in ADL's, mobility, safety and/or upper extremity function for ADL's. Plan of Care: ADL Retraining, Functional Mobility, Group Exercise/Act as Ind, UE Funct Exercise/Act, W/C Management Training Treatment Duration: Mar 04, 2021 Frequency: At least 5 of 7 days/Wk (IRF) Estimated Hrs Per Day: 1.5 hours per day Agreement: Yes Rehab Potential: Poor Time/GCodes Start Time: 11:15 Stop Time: 11:45 Total Time Billed (hr/min): 30 Billed Treatment Time 1 visit, EX Antonieta John OT Mar 14, 2021 13:11
--- NOTE | 2021-03-14 13:18 | Physical Therapy Daily Note ---
PT Daily Note-Current Subjective Patient in bed pre tx, agrees to PT, has no complaints of pain. Appearance Patient in bed post tx with nurse call, phone, tray, all needs met. Mental Status Patient Orientation: Normal For Age Transfers SCALE: Activities may be completed with or without assistive devices. 3-Auvkkacxnk-kstfare completes the activity by him/herself with no assistance from a helper. 5-Set-up or Clean-up Assistance-helper sets up or cleans up; patient completes activity. [place] assists only prior to or following the activity. 4-Supervision or Touching Assistance-helper provides verbal cues and/or touching/steadying and/or contact guard assistance as patient completes activity. Assistance may be provided throughout the activity or intermittently. 3-Partial/Moderate Assistance-helper does LESS THAN HALF the effort. [place] lifts, holds or supports trunk or limbs, but provides less than half the effort. 2-Substantial/Maximal Assistance-helper does MORE THAN HALF the effort. [place] lifts or holds trunk or limbs and provides more than half the effort. 6-Itxlggozk-phqmuy does ALL the effort. Patient does none of the effort to complete the activity. Or, the assistance of 2 or more helpers is required for the patient to complete the activity. If activity was not attempted, code reason: 7-Patient Refused. 9-Not Applicable-not attempted and the patient did not perform the activity before the current illness, exacerbation or injury. 10-Not Attempted due to Environmental Limitations-(lack of equipment, weather restraints, etc.). 88-Not Attempted due to Medical Conditions or Safety Concerns. Exercises Supine Ex: Ankle pumps, Quad Set, Glut sets, Heel Slides (AAROM LLE), Short Arc Quads (AAROM LLE), Straight leg raise (AAROM LLE), Hip abd/add (AAROM LLE) Supine Reps: 20 Treatments BLE strengthening Assessment Current Status: Poor Progress Patient needed several rest breaks for exercises on the right side but also didn't need assist on that side. Patient seems to have increasing LLE weakness and is not progressing to improve functional mobility PT Short Term Goals Short Term Goals Time Frame: Feb 17, 2021 Roll Left & Right: 3 Sit to lyin Lying to sitting on side of be: 3 Wheel 50ft w/2 turns: 4 Wheel 150 feet: 4 PT Fci Goals Fci Goals PT [facility]ci Goals Time Frame: Mar 03, 2021 Roll Left & Right (QC): 4 Sit to Lying (QC): 4 Lying-Sitting on Side/Bed(QC): 4 Sit to Stand (QC): 88 Chair/Vvf-sw-Sxsab Xfer(QC): 88 Toilet Transfer (QC): 88 Car Transfer (QC): 88 Does the Patient Walk: No and Walking Goal NOT indicated Walk 10 feet (QC): 88 Walk 50ft with 2 Turns (QC): 88 Walk 150 ft (QC): 88 Walking 10ft on Uneven Surface: 88 1 Step (curb) (QC): 88 4 Steps (QC): 88 12 Steps (QC): 88 Picking up an Object (QC): 88 Wheel 50 feet with 2 turns (QC: 6 Wheel 150 feet: 6 PT Plan Problem List Problem List: Activity Tolerance, Functional Strength, Safety, Balance, Gait, Transfer, Bed Mobility, ROM Treatment/Plan Treatment Plan: Continue Plan of Care Treatment Plan: Bed Mobility, Education, Functional Activity Jorge, Functional Strength, Group Therapy, Gait, Safety, Therapeutic Exercise, Transfers Treatment Duration: Mar 03, 2021 Frequency: At least 5 of 7 days/Wk (IRF) Estimated Hrs Per Day: 1.5 hours per day Patient and/or Family Agrees t: Yes Safety Risks/Education Patient Education: Correct Positioning, Safety Issues Teaching Recipient: Patient Teaching Methods: Demonstration, Discussion Response to Teaching: Reinforcement Needed Time/GCodes Time In: 1300 Time Out: 1330 Total Billed Treatment Time: 30 Total Billed Treatment 1 visit EX 30' TARA MCCOY PT Mar 14, 2021 13:18
[2021-03-14] MEDS: DIGOXIN 0.125 MG (LANOXIN) TAB PO SCH (16:51)
[2021-03-14] MEDS: TAMSULOSIN 0.4 MG (FLOMAX) CAP PO SCH (16:51)
[2021-03-14 19:45] VITALS: BP 93/54
[2021-03-14] MEDS: SIMvastatin 40 MG (ZOCOR) TAB PO SCH (21:03)
[2021-03-14] MEDS: MELATONIN 3 MG TABLET PO PRN (21:03)
[2021-03-15] MEDS: inSUlin ASPART (NovoLOG) 1 UNIT/0.01 ML (CHARGE PER UNIT) SC SCH ×4 (05:38→21:00)
[2021-03-15] MEDS: BETHANECHOL 10 MG (URECHOLINE) TAB PO SCH ×4 (06:23→21:01)
[2021-03-15] MEDS: LEVOTHYROXINE 100 MCG (LEVOTHROID) TAB PO SCH (06:23)
[2021-03-15] MEDS: KCL 10 MEQ TAB (MICRO K) PO SCH (06:23)
[2021-03-15] MEDS: MULTIVIT W/MINERALS TAB (THERAGRAN M) PO SCH (06:23)
[2021-03-15 07:48] VITALS: BP 117/66
--- NOTE | 2021-03-15 08:17 | Occupational Ther Daily Note ---
OT Current Status-Daily Note Subjective Pt denies pain, agreeable to treatment. Appearance Left supine in bed, all needs within reach. ADL-Treatment Therapy Code Descriptions/Definitions Functional [place] Measure: 0=Not Assessed/NA 4=Minimal Assistance 1=Total Assistance 5=Supervision or Setup 2=Maximal Assistance 6=Modified [place] 3=Moderate Assistance 7=Complete IndependenceSCALE: Activities may be completed with or without assistive devices. 6-Ptubastwwz-txeqvuo completes the activity by him/herself with no assistance from a helper. 5-Set-up or Clean-up Assistance-helper sets up or cleans up; patient completes activity. [place] assists only prior to or following the activity. 4-Supervision or Touching Assistance-helper provides verbal cues and/or touching/steadying and/or contact guard assistance as patient completes activity . Assistance may be provided throughout the activity or intermittently. 3-Partial/Moderate Assistance-helper does LESS THAN HALF the effort. [place] lifts, holds or supports trunk or limbs, but provides less than half the effort. 2-Substantial/Maximal Assistance-helper does MORE THAN HALF the effort. [place] lifts or holds trunk or limbs and provides more than half the effort. 0-Lucflcvla-zhycsh does ALL the effort. Patient does none of the effort to complete the activity. Or, the assistance of 2 or more helpers is required for the patient to complete the activity. If activity was not attempted, code reason: 7-Patient Refused. 9-Not Applicable-not attempted and the patient did not perform the activity before the current illness, exacerbation or injury. 10-Not Attempted due to Environmental Limitations-(lack of equipment, weather restraints, etc.). 88-Not Attempted due to Medical Conditions or Safety Concerns. Eating (QC): 5 Oral Hygiene (QC): 5 Upper Body Dressing (QC): 3 (min) Lower Body Dressing (QC): 1 On/Off Footwear: 3 (With use of sock aid. Assist only to lift RLE due to weakness) Toileting Hygiene (QC): 1 Toilet Transfer (QC): 1 First session ([id number]) Grooming tasks performed at bed level with set up assist only. Pt used LUE as stabilizer to hold toothbrush in place as he squeezed toothpaste with R hand. Second session (8841-8257): Co-treat with PT due to poor endurance, safety, mobility, strength, trunk strength and stability, and increased fall risk. Pt incontinent of urine at therapy arrival. Dependent for guillermo care. Dependent to thread BLE's into brief and manage up to waist while rolling R/L. Upper body dressing and socks donned at w/c level. Min a needed to pull shirt down in back, more on R side due to impaired shoulder ROM. Good recall of correct use of sock aid, assist only to lift RLE off floor while threading foot into tool. Shower performed previous date, min A. See note on 03/14/21 for details. Other Treatment 1st session: Pt participated in dexterity/FM activity with emphasis on improving pinch/release, grasp, manipulation, strength, and rom in L hand. HOHA needed to maintain wrist extension and correct placement of index/thumb with pinch (tip pinch). Pt cued to slide large peg to edge of table in order to get thumb correctly placed under peg. Pt also utilized R hand for correct positioning of peg in between fingers. HOHA provided to push peg into theraputty. With multiple rest breaks, pt was able to remove peg from putty while maintaining pinch and releasing on command. 2nd session: Pt participated in w/c mobility. Great improvement exhibited this date. Pt able to propel longer distances before requiring a rest break this date; ~100 feet. While in gym, he participated in table top activity (nuts/bolts) with goal to promote increased sitting tolerance/balance, endurance, Chaka integration/use, fm control, and L hand manipulation. Back/trunk support removed during task to encourage trunk/core strength/control. Pt only able to tolerate ~2-3 min before needing to rest. Unable to sustain upright posture and requires cues and min a to get back into thoracic/lumbar extension. Pt often resting arms on mat when fatigue worsens. Education OT Patient Education: Correct positioning, Energy conservation, Modified ADL techniques, Progress toward Goal/Update tx plan, Purpose of tx/functional a ctivities, Reviewed precautions, Rehab process, Safety issues, Transfer techniques, Use of adapted equipment, W/C management Teaching Recipient: Patient Teaching Methods: Demonstration, Discussion Response to Teaching: Verbalize Understanding, Return Demonstration, Reinforcement Needed OT Short Term Goals Short Term Goals Time Frame: Feb 24, 2021 Eatin Oral hygiene: 4 Toileting hygiene: 2 Shower/bathe self: 2 Upper body dressin Lower body dressin Putting on/taking off footwear: 3 OT Table Tender Goals Table Tender Goals Time Frame: Mar 25, 2021 Eating (QC): 5 Oral Hygiene (QC): 5 (met) Toileting Hygiene (QC): 2 (not met) Shower/Bathe Self (QC): 3 (met) Upper Body Dressing (QC): 2 (met) Lower Body Dressing (QC): 2 (not met) On/Off Footwear (QC): 3 (met) 1=Demonstrate adherence to instructed precautions during ADL tasks. 2=Patient will verbalize/demonstrate understanding of assistive devices/modifications for ADL. 3=Patient will improve strength/tolerance for activity to enable patient to perform ADL's. OT Education/Plan Problem List/Assessment Assessment: Decreased Activ Tolerance, Decreased Safety Aware, Decreased UE Strength, Dependent Transfers, Impaired Bed Mobility, Impaired Cognition, Impaired Coordination, Impaired Funct Balance, Impaired I ADL's, Impaired Self- Care Skills, Restricted Funct UE ROM Discharge Recommendations Plan/Recommendations: Continue POC Target Placement LTC Treatment Plan/Plan of Care Treatment,Training & Education: Yes Patient would benefit from OT for education, treatment and training to promote independence in ADL's, mobility, safety and/or upper extremity function for ADL's. Plan of Care: ADL Retraining, Functional Mobility, Group Exercise/Act as Ind, UE Funct Exercise/Act, W/C Management Training Treatment Duration: Mar 04, 2021 Frequency: At least 5 of 7 days/Wk (IRF) Estimated Hrs Per Day: 1.5 hours per day Agreement: Yes Rehab Potential: Poor Time/GCodes Start Time: 07:40 ((0900)) Stop Time: 08:10 ((1000)) Total Time Billed (hr/min): 90 Billed Treatment Time 2 visits [id number] -ADL (15 min), FA (15 min) [id number]-BLC (15 min), FAx3 (45 min) co treat with pt for 60 min Antonieta Angel OT Mar 15, 2021 08:17
[2021-03-15] MEDS: SENNA W/DOCUSATE (SENOKOT S) TABLET PO SCH ×2 (08:36→21:01)
[2021-03-15] MEDS: LOSARTAN 50 MG (COZAAR) TAB PO SCH (08:36)
[2021-03-15] MEDS: FERROUS SULF 325 MG (IRON) TAB PO SCH (08:37)
[2021-03-15] MEDS: MAGNESIUM OXIDE (MAG-OX)400 MG TAB PO SCH (08:37)
[2021-03-15] MEDS: meTOprolol SUCCINATE 100 MG (TOPROL XL) TAB PO SCH (08:37)
[2021-03-15] MEDS: CALCIUM CARB + VIT D 600 MG (CALCARB + D) TAB PO SCH (08:37)
[2021-03-15] MEDS: OMEGA 3 (FISH OIL) 1000 MG CAP PO SCH ×2 (08:37→21:01)
[2021-03-15] MEDS: DOCUSATE SODIUM 100 MG (COLACE) CAP PO SCH ×2 (08:37→21:02)
[2021-03-15] MEDS: lisINopril 10 MG (PRINIVIL) TABLET PO SCH (08:37)
[2021-03-15] MEDS: FUROSEMIDE 20 MG (LASIX) TAB PO SCH (08:38)
[2021-03-15] MEDS: polyethylene glycoL POWDER 17 GM (MIRALAX) PACK PO SCH ×2 (08:38→19:29)
[2021-03-15] MEDS: FAMOTIDINE 20 MG (PEPCID) TABLET PO SCH (08:38)
[2021-03-15] MEDS: APIXABAN 5 MG (ELIQUIS) TABLET PO SCH ×2 (08:38→21:02)
--- NOTE | 2021-03-15 09:02 | PM&R Progress Note ---
Subjective HPI/CC On Admission Date Seen by Provider: Mar 15, 2021 Time Seen by Provider: 09:10 Subjective/Events-last exam 03/15/2021: Patient set for discharge but transportation was delayed No other concerns reported 03/14/2021: Patient doing well No significant changes No pain is reported 03/13/2021: Patient doing well Change diet yesterday and doing much better today Check meds and labs Less fecal incontinence 03/12/2021: Patient doing well No major concerns Sleeping soundly at time of my rounds Changing diet to regular 03/11/2021: No major issues No pain reported Sugars reviewed Check meds and labs 03/10/2021: No major issues Setting up intermediate for discharge No significant changes in status Bowels are loose 03/09/2021: Patient doing well No major issues Bowels are moving Check meds and labs Continuing to await for information from insurance for approval from [facility] 03/08/2021: Met with patient and family with son and ex- at bedside and 1 son on phone from [place]. 25-minute conversation ensued. 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 After detailed update on what we know and the possible plan family decided to pursue [facility] so we did submit that to insurance Son on phone in [place] could not understand why " no one is doing anything for him" and completely dissatisfied with all the care he is received from [facility] to [facility]. Tried to reassure patient and family and son on phone but very difficult to redirect son from negative statements. 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 03/07/21: Pt doing well Subtle change in his overall demeanor, he appears to be a bit more frightened and debilitated MRI has just come to bring him down for cervical and thoracic spine with and without IV contrast for [facility] to Review No BM for the last couple of days so will initiate laxatives Labs okay overall 03/06/2021: Patient doing well Sleeping well Spoke to Amy at [facility] as requested by social human services assistants and I have placed orders for MRI with and without IV contrast of cervical and thoracic spine and will need to have those clouded up into the system from [place] to review then hopefully video consultation will ensue No other concerns 03/05/2021: Patient doing well No major concerns [facility] appears to be willing to do a video visit We will likely need to do another MRI so will contact Amy at [facility] at [phone] on Sunday in order to order the MRI that they want then will communicate regarding the visit after that 03/04/21: Pt doing well No significant complaints per nursing staff Still working with therapy Checked meds and labs 03/03/2021: Patient doing well No straight cath needed Sugars are good Bowels are moving well Check meds and labs 03/02/2021: Patient doing well Holding Detrol due to incontinence Bowels are moving Straight cath required Sent all records to PCP from [id number] skilled care and recommended him to stay in the rehab 03/01/21: Awaiting NH placement In/out cath required multiple times so will reach out to Dr Welsh BM yesterday Checked meds and labs 02/28/21: Patient doing well Labs reviewed No pain reported Spoke to Dr Kennedy his PCP and updated him on everything about the case and the need to f/u [facility] referral Will fax all records to him at [phone] so he can have all of the records also Incontinence noted BM+ 02/27/21: Patient doing well We will speak to his primary care provider before he is discharged to the intermediate to be sure he can follow-up on [facility] referral Bowels moved today Glucose 168 Check meds and labs 02/26/2021: Patient doing well Discussed [facility] referral half-way being arranged in meantime Bowels are moving well 02/25/2021: Miscommunication with [place] in it does not appear that it will be a hospital hospital transfer Remains a Coleen lift Son here for family education Denies any new issues 02/24/2021: [facility] had reached out and reviewed the case and it appeared that he was in the midst of being accepted. Patient very excited about the chance to go to [facility] Denies any issues Still a Coleen lift 02/23/2021: Patient doing well Required in and out caths yesterday due to 490 retention Detrol has been started by urology [facility] still in process Bed mobility improved 02/22/2021: Patient doing well Urology started Detrol for incontinence [facility] pending Bowels are moving well Still requiring Coleen lift 02/21/2021: Patient reports no significant concerns Bladder scanning per urology rec No word from [facility] Incontinent of bowel today Labs look good 02/20/2021: Patient has no new complaints today Denies any new issues No pain is reported Incontinence is an issue Fecal incontinence also an issue 02/19/2021: Patient had an uneventful night Denies any new issues Working on bladder retraining Check meds and labs 02/18/2021: Patient doing well Has no complaints Cystoscopy to be done today by urology No pain is reported Bowel evacuation ordered 02/17/2021: Patient doing really well Bowels moved yesterday All records sent to [facility] Has no rectal tone May need a suppository to evacuate bowels and treated like a paraplegic Bottom wound appears to be very superficial on a cushion 02/16/2021: Pt doing well No issues Bowels moved yesterday and fecal incontinence Frausto cath in Cystoscopy by Dr. Welsh on Sunday02/15/2021: Pt doing a little better Frausto required and Dr. Welsh consulted Spot checks of oxygen without CPAP during the night are okay Still a Coleen-lift 02/14/2021: Pt doing well Condom catheter will be attempted Platelet count 108 Wound looks good BP and blood sugar good No pain Bowels are moving 02/13/2021: Patient doing well Has no needs Bowels are moving well No issues Sugars are reviewed 02/12/2021: Patient doing well Incontinent of bowel and bladder a lot Able to move himself and turn himself in bed Check meds and labs Cognitive deficit could preclude independent living 02/11/2021: Patient doing pretty well Dr. Rubio will be consulted Noncompliant with CPAP machine Oxygen was good last night at 90% Wound care consulted Dr. Pyle Sugars good Bowels are a bit loose and he does have fecal incontinence Review of Systems General: Fatigue, Malaise Neurological: Weakness, Incoordination Objective Exam Vital Signs Vital Signs Date Time Temp Pulse Resp B/P (MAP) Pulse Ox O2 Delivery O2 Flow Rate FiO2 03/15/21 20:06 36.6 72 20 105/69 (81) 97 Room Air Capillary Refill : General Appearance: No Apparent Distress, WD/WN, Chronically ill HEENT: PERRL/EOMI, Normal ENT Inspection, Pharynx Normal Neck: Full Range of Motion, Normal Inspection, Non Tender, Supple, Carotid Bruit Respiratory: Chest Non Tender, Lungs Clear, Normal Breath Sounds, No Accessory Muscle Use, No Respiratory Distress Cardiovascular: Regular Rate, Rhythm, No Edema, No Gallop, No JVD, No Murmur, Normal Peripheral Pulses Gastrointestinal: Normal Bowel Sounds, No Organomegaly, No Pulsatile Mass, Non Tender, Soft Back: Normal Inspection, No CVA Tenderness, No Vertebral Tenderness Extremity: Normal Capillary Refill, Normal Inspection, Normal Range of Motion, Non Tender, No Calf Tenderness, No Pedal Edema Neurologic/Psychiatric: Alert, Oriented x3, Normal Mood/Affect, overhead irrigator II-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 FIM Transfers Therapy Code Descriptions/Definitions Functional [place] Measure: 0=Not Assessed/NA 4=Minimal Assistance 1=Total Assistance 5=Supervision or Setup 2=Maximal Assistance 6=Modified [place] 3=Moderate Assistance 7=Complete IndependenceSCALE: Activities may be completed with or without assistive devices. 3-Wrzqimcvpw-dwbndcg completes the activity by him/herself with no assistance from a helper. 5-Set-up or Clean-up Assistance-helper sets up or cleans up; patient completes activity. [place] assists only prior to or following the activity. 4-Supervision or Touching Assistance-helper provides verbal cues and/or touching/steadying and/or contact guard assistance as patient completes activity. Assistance may be provided throughout the activity or intermittently. 3-Partial/Moderate Assistance-helper does LESS THAN HALF the effort. [place] lifts, holds or supports trunk or limbs, but provides less than half the effort. 2-Substantial/Maximal Assistance-helper does MORE THAN HALF the effort. [place] lifts or holds trunk or limbs and provides more than half the effort. 5-Wcadvqajf-zesgil does ALL the effort. Patient does none of the effort to complete the activity. Or, the assistance of 2 or more helpers is required for the patient to complete the activity. If activity was not attempted, code reason: 7-Patient Refused. 9-Not Applicable-not attempted and the patient did not perform the activity before the current illness, exacerbation or injury. 10-Not Attempted due to Environmental Limitations-(lack of equipment, weather restraints, etc.). 88-Not Attempted due to Medical Conditions or Safety Concerns. Roll Left to Right (QC): 3 Sit to Lying (QC): 1 Sit to Stand (QC): 1 Chair/Yok-mn-Rsmvo Xfer(QC): 1 Car Transfer (QC): 88 Gait Training Does the Patient Walk?: No and Walking Goal NOT indicated Walk 10 feet (QC): 88 Walk 50 ft with 2 Turns(QC): 88 Walk 150 ft (QC): 88 Walking 10ft/uneven surface-QC: 88 Wheelchair Training Does the Pt Use a Wheelchair?: Yes Distance: 100'x2 Wheel 50 ft with 2 turns (QC): 4 Wheel 150 ft (QC): 3 Type of Wheelchair: Manual Stair Training 1 Step (curb) (QC): 88 4 Steps (QC): 88 12 Steps (QC): 88 Balance Picking up an Object (QC): 88 ADL-Treatment Eating (QC): 6 (Pt able to complete own meal set up and use regular utensils to eat.) Oral Hygiene (QC): 5 Bathing Location: L Arm, R Arm, L Upper Leg, R Upper Leg, L Lower Leg (including foot), R Lower Leg (including foot), Chest, Abdomen, Perineal Area Shower/Bathe Self (QC): 3 Upper Body Dressing (QC): 3 Lower Body Dressing (QC): 1 On/Off Footwear (QC): 3 Toileting Hygiene (QC): 1 Toilet Transfer (QC): 1 Assessment/Plan Assessment and Plan Assess & Plan/Chief Complaint Assessment: 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 and subsequent neurological deficits Lumbar L4-L5 subarticular recess narrowing B/L Left-sided weakness Hepatic Hemangioma Systolic Heart Failure LFT elevation LBBB Previous hypotension Obesity CAD Dementia/cognitive impairment GERD PUD PVD Diabetic polyneuropathy Progressive weakness High risk of falling Gait disturbance Spasticity T2DM Constipation Edema HTN Paroxysmal A-fib Thrombocytopenia Urinary Retention Status post UTI (resolved) BAM on CPAP Cystoscopy on 02/18/2021 Plan: Aggressive PT, OT, and speech therapy Order basic lab work in the morning Review records, talk to his family members as they are more in tune with his medical condition then the patient himself Neurology follow up Consult Dr. Rubio for A. fib 02/11/2021: Supportive care Dr. Rubio consult Poor memory recall noted 02/12/2021: Incontinence care Aggressive therapy 02/13/2021: Incontinence care Aggressive therapy 02/14/2021: Attempt condom catheter due to incontinence Monitor for retention Dr. Welsh consult 02/15/2021: Appreciate urology management Aggressive therapy Send records to [facility] 02/16/2021: Supportive care Send records to [facility] from [facility] Continue aggressive treatment Cystoscopy tomorrow 02/17/2021: Cystoscopy tomorrow Bowel evacuation 02/18/2021: Cystoscopy Appreciate urology 02/19/2021: Supportive care Urology appreciated 02/20/2021: Supportive care Incontinence care 02/21/2021: Supportive care Incontinence care Appreciate urology 02/22/2021: Detrol for incontinence Appreciate urology Continue aggressive treatment 02/23/2021 Patient will need nursing care at discharge Appreciate urology 02/24/2021: [facility] transfer? Continue aggressive therapy 02/25/2021: half-way admission [facility] still pending 02/26/2021: Await intermediate placement [facility] referral 02/27/21: Monitor closely Await NH placement Will speak to Dr Kennedy 02/28/21: Updated PCP Will send records NHP 03/01/21: Await placement Send records to Dr Kennedy 03/02/2021: Discontinue Detrol Supportive care 03/03/2021: Patient doing well Maintain urology management 03/04/21: Monitor weakness Sugar management 03/05/2021: We will contact [facility] on Sunday for additional MRIs 03/06/2021: Ordered MRI with and without IV contrast of cervical and thoracic spine per [facility] request that will be done tomorrow 03/07/2021: Review MRI Disposition 03/08/2021: Family meeting for 25 minutes Additional 30 minutes in review of scans and review of data 03/09/2021: Continue aggressive therapy Await [facility] decision from insurance 03/10/2021: Continue aggressive therapy half-way discharge 03/11/2021: Supportive care half-way at discharge 03/12/2021: Change diet to regular for Sunday Supportive care 03/13/2021: Regular diet Supportive care Check labs in the morning 03/14/2021: Await final approval from insurance 03/15/2021: Discharge planned Monitor closely (1) Cervical spinal cord compression (2) Atrial fibrillation (3) Anticoagulation adequate with anticoagulant therapy (4) Urinary retention CARMELLA ESTRADA DO Mar 15, 2021 09:02
--- NOTE | 2021-03-15 10:53 | Physical Therapy Daily Note ---
PT Daily Note-Current Subjective Pt laying Supine in bed upon arrival. Pt agrees to PT. Pain Location: No Pain Reported Mental Status Patient Orientation: Person, Place, Time, Situation Transfers SCALE: Activities may be completed with or without assistive devices. 9-Orznrcdmsv-jzvvysm completes the activity by him/herself with no assistance from a helper. 5-Set-up or Clean-up Assistance-helper sets up or cleans up; patient completes activity. Dresser assists only prior to or following the activity. 4-Supervision or Touching Assistance-helper provides verbal cues and/or touching/steadying and/or contact guard assistance as patient completes activity. Assistance may be provided throughout the activity or intermittently. 3-Partial/Moderate Assistance-helper does LESS THAN HALF the effort. Dresser lifts, holds or supports trunk or limbs, but provides less than half the effort. 2-Substantial/Maximal Assistance-helper does MORE THAN HALF the effort. Dresser lifts or holds trunk or limbs and provides more than half the effort. 3-Xuaphpleo-uzalwe does ALL the effort. Patient does none of the effort to complete the activity. Or, the assistance of 2 or more helpers is required for the patient to complete the activity. If activity was not attempted, code reason: 7-Patient Refused. 9-Not Applicable-not attempted and the patient did not perform the activity be fore the current illness, exacerbation or injury. 10-Not Attempted due to Environmental Limitations-(lack of equipment, weather restraints, etc.). 88-Not Attempted due to Medical Conditions or Safety Concerns. Roll Left & Right (QC): 3 Sit to Lying (QC): 1 Lying to Sitting/Side of Bed(Q: 1 Sit to Stand (QC): 88 Chair/Zur-fe-Qvlgv Xfer(QC): 1 Toilet Transfer (QC): 1 Car Transfer (QC): 88 Gait Training Does the Patient Walk?: No and Walking Goal NOT indicated Wheelchair Training Does the Pt Use a Wheelchair?: Yes Wheel 50 ft with 2 turns (QC): 5 Wheel 150 ft (QC): 5 Type of Wheelchair: Manual Stair Training 1 Step (curb) (QC): 88 4 Steps (QC): 88 12 Steps (QC): 88 Balance Picking up an Object (QC): 88 Treatments (1585-6853): Co-treat with PT due to poor endurance, safety, mobility, strength, trunk strength and stability, and increased fall risk. Pt incontinent of urine at therapy arrival. Dependent for guillermo care. Dependent to thread BLE's into brief and manage up to waist while rolling R/L. Upper body dressing and socks donned at w/c level. Min a needed to pull shirt down in back, more on R side due to impaired shoulder ROM. Good recall of correct use of sock aid, assist only to lift RLE off floor while threading foot into tool. Pt propels WCH 100' before needing RB, then this is repeated 2x. Pt then completes dynamic sitting balance activity with use of nuts/bolts, focusing on core strengthening and balance. Pt takes a couple RB as needed. Pt returns to room and bed via Coleen lift. Pt resting at end of tx with all needs met, call light in hand. Assessment Current Status: Fair Progress Pt improved on WCH mobility and today was able to propel self w/o assistance from Therapists, although this is not always the case. Pt still using Coleen lift due to lack of strength and balance at this time. PT Short Term Goals Short Term Goals Time Frame: Feb 17, 2021 Roll Left & Right: 3 Sit to lyin Lying to sitting on side of be: 3 Wheel 50ft w/2 turns: 4 Wheel 150 feet: 4 PT Manager Foreign Goals Fpc Goals PT Manager Foreign Goals Time Frame: Mar 03, 2021 Roll Left & Right (QC): 4 Sit to Lying (QC): 4 Lying-Sitting on Side/Bed(QC): 4 Sit to Stand (QC): 88 Chair/Kqx-hp-Rgpna Xfer(QC): 88 Toilet Transfer (QC): 88 Car Transfer (QC): 88 Does the Patient Walk: No and Walking Goal NOT indicated Walk 10 feet (QC): 88 Walk 50ft with 2 Turns (QC): 88 Walk 150 ft (QC): 88 Walking 10ft on Uneven Surface: 88 1 Step (curb) (QC): 88 4 Steps (QC): 88 12 Steps (QC): 88 Picking up an Object (QC): 88 Wheel 50 feet with 2 turns (QC: 6 Wheel 150 feet: 6 PT Plan Problem List Problem List: Activity Tolerance, Functional Strength, Balance, Transfer Treatment/Plan Treatment Plan: Continue Plan of Care Treatment Plan: Bed Mobility, Education, Functional Activity Jorge, Functional Strength, Group Therapy, Gait, Safety, Therapeutic Exercise, Transfers Treatment Duration: Mar 03, 2021 Frequency: At least 5 of 7 days/Wk (IRF) Estimated Hrs Per Day: 1.5 hours per day Patient and/or Family Agrees t: Yes Safety Risks/Education Patient Education: Correct Positioning Teaching Recipient: Patient Teaching Methods: Discussion Response to Teaching: Verbalize Understanding Time/GCodes Time In: 900 Time Out: 1000 Total Billed Treatment Time: 60 Total Billed Treatment Co-treat from (900-1000) 1, [facility] x2 (30m), FA x2 (30m) HENRIETTA VALENZUELA JEWELRY APPRAISER Mar 15, 2021 10:53
--- NOTE | 2021-03-15 11:03 | Discharge Summary ---
Diagnosis/Chief Complaint Date of Admission Feb 10, 2021 at 13:36 Date of Discharge Discharge Date: Mar 15, 2021 Discharge Summary Discharge Physical Examination Allergies: Coded Allergies: No Known Drug Allergies (Unverified , 02/09/21) Vitals & I&Os Vital Signs Date Time Temp Pulse Resp B/P (MAP) Pulse Ox O2 Delivery O2 Flow Rate FiO2 03/15/21 20:06 36.6 72 20 105/69 (81) 97 Room Air Hospital Course Labs (last 24 hrs) Laboratory Tests 02/10/21 16:31: Glucometer 144H 02/10/21 21:29: Glucometer 174H 02/11/21 05:56: White Blood Count 5.1, Red Blood Count 4.05L, Hemoglobin 13.4, Hematocrit 40, Mean Corpuscular Volume 98, Mean Corpuscular Hemoglobin 33, Mean Corpuscular Hemoglobin Concent 34, Red Cell Distribution Width 13.3, Platelet Count 118L, Mean Platelet Volume 11.4, Immature Granulocyte % (Auto) 0, Neutrophils (%) (Auto) 68, Lymphocytes (%) (Auto) 18, Monocytes (%) (Auto) 10, Eosinophils (%) (Auto) 3, Basophils (%) (Auto) 1, Neutrophils # (Auto) 3.5, Lymphocytes # (Auto) 0.9L, Monocytes # (Auto) 0.5, Eosinophils # (Auto) 0.2, Basophils # (Auto) 0.0, Immature Granulocyte # (Auto) 0.0, Percent Immature Platelet Fraction 3.4, Sodium Level 139, Potassium Level 3.6, Chloride Level 108H, Carbon Dioxide Level 21, Anion Gap 10, Blood Urea Nitrogen 23H, Creatinine 0.70, Estimat Glomerular Filtration Rate 109, BUN/Creatinine Ratio 33, Glucose Level 129H, Calcium Level 8.2L, Corrected Calcium 9.4, Total Bilirubin 1.1H, Aspartate Amino Transf (AST/SGOT) 25, Alanine Aminotransferase (ALT/SGPT) 39, Alkaline Phosphatase 46, Total Protein 5.2L, Albumin 2.5L, Digoxin Level 0.54L 02/11/21 06:23: Glucometer 122H 02/11/21 11:47: Glucometer 196H 02/11/21 17:06: Glucometer 127H 02/11/21 20:27: Glucometer 190H 02/12/21 05:25: Glucometer 106 02/12/21 11:38: Glucometer 111H 02/12/21 16:48: Glucometer 155H 02/12/21 20:26: Glucometer 157H 02/13/21 05:14: Glucometer 123H 02/13/21 10:41: Glucometer 171H 02/13/21 16:58: Glucometer 125H 02/13/21 21:14: Glucometer 158H 02/14/21 05:40: Glucometer 124H 02/14/21 05:50: White Blood Count 4.7, Red Blood Count 4.24L, Hemoglobin 13.8, Hematocrit 41, Mean Corpuscular Volume 96, Mean Corpuscular Hemoglobin 33, Mean Corpuscular Hemoglobin Concent 34, Red Cell Distribution Width 13.2, Platelet Count 108L, Mean Platelet Volume 10.7, Immature Granulocyte % (Auto) 0, Neutrophils (%) (Auto) 60, Lymphocytes (%) (Auto) 26, Monocytes (%) (Auto) 8, Eosinophils (%) (Auto) 4, Basophils (%) (Auto) 1, Neutrophils # (Auto) 2.8, Lymphocytes # (Auto) 1.2, Monocytes # (Auto) 0.4, Eosinophils # (Auto) 0.2, Basophils # (Auto) 0.0, Immature Granulocyte # (Auto) 0.0, Percent Immature Platelet Fraction 3.0, Sodium Level 136, Potassium Level 3.8, Chloride Level 106, Carbon Dioxide Level 23, Anion Gap 7, Blood Urea Nitrogen 18, Creatinine 0.80, Estimat Glomerular Filtration Rate 93, BUN/Creatinine Ratio 23, Glucose Level 127H, Calcium Level 8.3L, Corrected Calcium 9.4, Total Bilirubin 1.2H, Aspartate Amino Transf (AST/SGOT) 23, Alanine Aminotransferase (ALT/SGPT) 35, Alkaline Phosphatase 51, Total Protein 5.3L, Albumin 2.6L 02/14/21 11:11: Glucometer 143H 02/14/21 15:53: Glucometer 180H 02/14/21 21:09: Glucometer 139H 02/15/21 05:41: Glucometer 139H 02/15/21 11:34: Glucometer 164H 02/15/21 17:09: Glucometer 168H 02/15/21 20:52: Glucometer 275H 02/16/21 05:26: Glucometer 108 02/16/21 11:49: Glucometer 145H 02/16/21 16:10: Glucometer 114H 02/16/21 20:44: Glucometer 148H 02/17/21 05:20: Glucometer 123H 02/17/21 11:04: Glucometer 166H 02/17/21 16:00: Glucometer 110 02/17/21 21:01: Glucometer 179H 02/18/21 05:48: Glucometer 141H 02/18/21 11:13: Glucometer 194H 02/18/21 15:41: Glucometer 138H 02/18/21 20:04: Glucometer 194H 02/19/21 06:04: Glucometer 133H 02/19/21 10:46: Glucometer 152H 02/19/21 15:17: Glucometer 150H 02/19/21 20:06: Glucometer 160H 02/20/21 05:35: Glucometer 112H 02/20/21 11:00: Glucometer 181H 02/20/21 16:20: Glucometer 101 02/20/21 20:49: Glucometer 154H 02/21/21 05:00: White Blood Count 4.0L, Red Blood Count 4.27L, Hemoglobin 14.0, Hematocrit 41, Mean Corpuscular Volume 96, Mean Corpuscular Hemoglobin 33, Mean Corpuscular Hemoglobin Concent 34, Red Cell Distribution Width 13.0, Platelet Count 253, Mean Platelet Volume 11.1, Immature Granulocyte % (Auto) 0, Neutrophils (%) (Auto) 51, Lymphocytes (%) (Auto) 29, Monocytes (%) (Auto) 14H, Eosinophils (%) (Auto) 5, Basophils (%) (Auto) 1, Neutrophils # (Auto) 2.1, Lymphocytes # (Auto) 1.2, Monocytes # (Auto) 0.6, Eosinophils # (Auto) 0.2, Basophils # (Auto) 0.0, Immature Granulocyte # (Auto) 0.0, Sodium Level 138, Potassium Level 3.6, Chloride Level 105, Carbon Dioxide Level 21, Anion Gap 12, Blood Urea Nitrogen 19H, Creatinine 0.85, Estimat Glomerular Filtration Rate 87, BUN/Creatinine Ratio 22, Glucose Level 128H, Calcium Level 8.8, Corrected Calcium 9.7, Total Bilirubin 1.1H, Aspartate Amino Transf (AST/SGOT) 21, Alanine Aminotransferase (ALT/SGPT) 29, Alkaline Phosphatase 46, Total Protein 5.5L, Albumin 2.9L, Digoxin Level 0.52L 02/21/21 10:50: Glucometer 174H 02/21/21 15:17: Glucometer 164H 02/21/21 20:06: Glucometer 178H 02/22/21 05:58: Glucometer 141H 02/22/21 11:19: Glucometer 169H 02/22/21 16:34: Glucometer 134H 02/22/21 21:04: Glucometer 186H 02/23/21 06:11: Glucometer 123H 02/23/21 11:20: Glucometer 158H 02/23/21 16:38: Glucometer 139H 02/23/21 20:16: Glucometer 172H 02/24/21 05:38: Glucometer 119H 02/24/21 10:26: Glucometer 201H 02/24/21 15:45: Glucometer 131H 02/24/21 20:57: Glucometer 194H 02/25/21 05:25: Glucometer 109 02/25/21 11:07: Glucometer 182H 02/25/21 15:51: Glucometer 142H 02/25/21 20:51: Glucometer 171H 02/26/21 06:18: Glucometer 110 02/26/21 11:44: Glucometer 239H 02/26/21 16:06: Glucometer 78 02/26/21 21:33: Glucometer 160H 02/27/21 06:41: Glucometer 118H 02/27/21 10:44: Glucometer 167H 02/27/21 15:29: Glucometer 135H 02/27/21 20:19: Glucometer 195H 02/28/21 05:33: Glucometer 104 02/28/21 05:45: White Blood Count 4.8, Red Blood Count 4.41, Hemoglobin 14.1, Hematocrit 42, Mean Corpuscular Volume 96, Mean Corpuscular Hemoglobin 32, Mean Corpuscular Hemoglobin Concent 33, Red Cell Distribution Width 12.6, Platelet Count 295, Mean Platelet Volume 10.8, Immature Granulocyte % (Auto) 0, Neutrophils (%) (Auto) 52, Lymphocytes (%) (Auto) 30, Monocytes (%) (Auto) 15H, Eosinophils (%) (Auto) 2, Basophils (%) (Auto) 1, Neutrophils # (Auto) 2.5, Lymphocytes # (Auto) 1.4, Monocytes # (Auto) 0.7, Eosinophils # (Auto) 0.1, Basophils # (Auto) 0.1, Immature Granulocyte # (Auto) 0.0, Sodium Level 138, Potassium Level 3.6, Chloride Level 103, Carbon Dioxide Level 25, Anion Gap 10, Blood Urea Nitrogen 23H, Creatinine 0.97, Estimat Glomerular Filtration Rate 75, BUN/Creatinine Ratio 24, Glucose Level 103, Calcium Level 9.0, Corrected Calcium 9.7, Total Bilirubin 1.0, Aspartate Amino Transf (AST/SGOT) 21, Alanine Aminotransferase (ALT/SGPT) 20, Alkaline Phosphatase 46, Total Protein 5.9L, Albumin 3.1L, Digoxin Level 0.45L 02/28/21 10:56: Glucometer 196H 02/28/21 16:03: Glucometer 129H 02/28/21 21:24: Glucometer 174H 03/01/21 06:21: Glucometer 119H 03/01/21 10:46: Glucometer 226H 03/01/21 15:18: Glucometer 120H 03/01/21 21:30: Glucometer 151H 03/02/21 05:24: Glucometer 117H 03/02/21 10:52: Glucometer 163H 03/02/21 15:55: Glucometer 112H 03/02/21 21:03: Glucometer 156H 03/03/21 05:38: Glucometer 115H 03/03/21 11:04: Glucometer 147H 03/03/21 17:03: Glucometer 105 03/03/21 20:37: Glucometer 240H 03/04/21 05:46: Glucometer 119H 03/04/21 10:51: Glucometer 179H 03/04/21 15:56: Glucometer 124H 03/04/21 20:46: Glucometer 189H 03/05/21 05:43: Glucometer 114H 03/05/21 11:28: Glucometer 174H 03/05/21 16:57: Glucometer 147H 03/05/21 20:17: Glucometer 169H 03/06/21 05:16: Glucometer 116H 03/06/21 10:43: Glucometer 154H 03/06/21 15:41: Glucometer 147H 03/06/21 20:06: Glucometer 174H 03/07/21 05:13: Glucometer 120H 03/07/21 05:38: White Blood Count 6.1, Red Blood Count 4.28L, Hemoglobin 13.9, Hematocrit 41, Mean Corpuscular Volume 95, Mean Corpuscular Hemoglobin 33, Mean Corpuscular Hemoglobin Concent 34, Red Cell Distribution Width 12.7, Platelet Count 184, Mean Platelet Volume 11.9, Immature Granulocyte % (Auto) 0, Neutrophils (%) (Auto) 58, Lymphocytes (%) (Auto) 25, Monocytes (%) (Auto) 14H, Eosinophils (%) (Auto) 1, Basophils (%) (Auto) 1, Neutrophils # (Auto) 3.6, Lymphocytes # (Auto) 1.6, Monocytes # (Auto) 0.9, Eosinophils # (Auto) 0.1, Basophils # (Auto) 0.1, Immature Granulocyte # (Auto) 0.0, Sodium Level 139, Potassium Level 3.8, Chloride Level 107, Carbon Dioxide Level 20L, Anion Gap 12, Blood Urea Nitrogen 22H, Creatinine 0.98, Estimat Glomerular Filtration Rate 74, BUN/Creatinine Ratio 22, Glucose Level 131H, Calcium Level 9.0, Corrected Calcium 9.9, Total Bilirubin 0.8, Aspartate Amino Transf (AST/SGOT) 18, Alanine Aminotransferase (ALT/SGPT) 15, Alkaline Phosphatase 39L, Total Protein 5.5L, Albumin 2.9L 03/07/21 12:19: Glucometer 138H 03/07/21 15:21: Glucometer 123H 03/07/21 20:15: Glucometer 178H 03/08/21 05:12: Glucometer 110 03/08/21 10:58: Glucometer 176H 03/08/21 15:14: Glucometer 139H 03/08/21 20:13: Glucometer 200H 03/09/21 05:41: Glucometer 141H 03/09/21 10:57: Glucometer 170H 03/09/21 15:40: Glucometer 126H 03/09/21 20:32: Glucometer 167H 03/10/21 05:50: Glucometer 112H 03/10/21 11:41: Glucometer 157H 03/10/21 17:11: Glucometer 130H 03/10/21 20:52: Glucometer 211H 03/11/21 05:37: Glucometer 130H 03/11/21 10:43: Glucometer 193H 03/11/21 15:15: Glucometer 97 03/11/21 21:16: Glucometer 188H 03/12/21 06:01: Glucometer 113H 03/12/21 10:43: Glucometer 173H 03/12/21 15:10: Glucometer 180H 03/12/21 20:10: Glucometer 176H 03/13/21 05:19: Glucometer 124H 03/13/21 11:11: Glucometer 161H 03/13/21 15:26: Glucometer 201H 03/13/21 20:23: Glucometer 184H 03/14/21 05:25: White Blood Count 5.5, Red Blood Count 4.25L, Hemoglobin 13.6, Hematocrit 40, Mean Corpuscular Volume 95, Mean Corpuscular Hemoglobin 32, Mean Corpuscular Hemoglobin Concent 34, Red Cell Distribution Width 12.4, Platelet Count 138, Mean Platelet Volume 12.2, Immature Granulocyte % (Auto) 0, Neutrophils (%) (Auto) 57, Lymphocytes (%) (Auto) 26, Monocytes (%) (Auto) 13H, Eosinophils (%) (Auto) 3, Basophils (%) (Auto) 1, Neutrophils # (Auto) 3.1, Lymphocytes # (Auto) 1.4, Monocytes # (Auto) 0.7, Eosinophils # (Auto) 0.2, Basophils # (Auto) 0.1, Immature Granulocyte # (Auto) 0.0, Sodium Level 141, Potassium Level 3.7, Chloride Level 107, Carbon Dioxide Level 24, Anion Gap 10, Blood Urea Nitrogen 20H, Creatinine 0.82, Estimat Glomerular Filtration Rate 91, BUN/Creatinine Ratio 24, Glucose Level 134H, Calcium Level 8.6, Corrected Calcium 9.4, Total Bilirubin 0.9, Aspartate Amino Transf (AST/SGOT) 20, Alanine Aminotransferase (ALT/SGPT) 20, Alkaline Phosphatase 41, Total Protein 5.3L, Albumin 3.0L 03/14/21 05:44: Glucometer 121H 03/14/21 10:47: Glucometer 231H 03/14/21 15:21: Glucometer 95 03/14/21 20:12: Glucometer 188H 03/15/21 05:23: Glucometer 118H 03/15/21 10:47: Glucometer 182H 03/15/21 15:27: Glucometer 125H 03/15/21 20:36: Glucometer 238H Pending Labs Laboratory Tests 02/10/21 16:31: Glucometer 144 02/10/21 21:29: Glucometer 174 02/11/21 05:56: White Blood Count 5.1, Red Blood Count 4.05, Hemoglobin 13.4, Hematocrit 40, Mean Corpuscular Volume 98, Mean Corpuscular Hemoglobin 33, Mean Corpuscular Hemoglobin Concent 34, Red Cell Distribution Width 13.3, Platelet Count 118, Mean Platelet Volume 11.4, Immature Granulocyte % (Auto) 0, Neutrophils (%) (Auto) 68, Lymphocytes (%) (Auto) 18, Monocytes (%) (Auto) 10, Eosinophils (%) (Auto) 3, Basophils (%) (Auto) 1, Neutrophils # (Auto) 3.5, Lymphocytes # (Auto) 0.9, Monocytes # (Auto) 0.5, Eosinophils # (Auto) 0.2, Basophils # (Auto) 0.0, Immature Granulocyte # (Auto) 0.0, Percent Immature Platelet Fraction 3.4, Sodium Level 139, Potassium Level 3.6, Chloride Level 108, Carbon Dioxide Level 21, Anion Gap 10, Blood Urea Nitrogen 23, Creatinine 0.70, Estimat Glomerular Filtration Rate 109, BUN/Creatinine Ratio 33, Glucose Level 129, Calcium Level 8.2, Corrected Calcium 9.4, Total Bilirubin 1.1, Aspartate Amino Transf (AST/SGO T) 25, Alanine Aminotransferase (ALT/SGPT) 39, Alkaline Phosphatase 46, Total Protein 5.2, Albumin 2.5, Digoxin Level 0.54 02/11/21 06:23: Glucometer 122 02/11/21 11:47: Glucometer 196 02/11/21 17:06: Glucometer 127 02/11/21 20:27: Glucometer 190 02/12/21 05:25: Glucometer 106 02/12/21 11:38: Glucometer 111 02/12/21 16:48: Glucometer 155 02/12/21 20:26: Glucometer 157 02/13/21 05:14: Glucometer 123 02/13/21 10:41: Glucometer 171 02/13/21 16:58: Glucometer 125 02/13/21 21:14: Glucometer 158 02/14/21 05:40: Glucometer 124 02/14/21 05:50: White Blood Count 4.7, Red Blood Count 4.24, Hemoglobin 13.8, Hematocrit 41, Mean Corpuscular Volume 96, Mean Corpuscular Hemoglobin 33, Mean Corpuscular Hemoglobin Concent 34, Red Cell Distribution Width 13.2, Platelet Count 108, Mean Platelet Volume 10.7, Immature Granulocyte % (Auto) 0, Neutrophils (%) (Auto) 60, Lymphocytes (%) (Auto) 26, Monocytes (%) (Auto) 8, Eosinophils (%) (Auto) 4, Basophils (%) (Auto) 1, Neutrophils # (Auto) 2.8, Lymphocytes # (Auto) 1.2, Monocytes # (Auto) 0.4, Eosinophils # (Auto) 0.2, Basophils # (Auto) 0.0, Immature Granulocyte # (Auto) 0.0, Percent Immature Platelet Fraction 3.0, Sodium Level 136, Potassium Level 3.8, Chloride Level 106, Carbon Dioxide Level 23, Anion Gap 7, Blood Urea Nitrogen 18, Creatinine 0.80, Estimat Glomerular Filtration Rate 93, BUN/Creatinine Ratio 23, Glucose Level 127, Calcium Level 8.3, Corrected Calcium 9.4, Total Bilirubin 1.2, Aspartate Amino Transf (AST/SGOT) 23, Alanine Aminotransferase (ALT/SGPT) 35, Alkaline Phosphatase 51, Total Protein 5.3, Albumin 2.6 02/14/21 11:11: Glucometer 143 02/14/21 15:53: Glucometer 180 02/14/21 21:09: Glucometer 139 02/15/21 05:41: Glucometer 139 02/15/21 11:34: Glucometer 164 02/15/21 17:09: Glucometer 168 02/15/21 20:52: Glucometer 275 02/16/21 05:26: Glucometer 108 02/16/21 11:49: Glucometer 145 02/16/21 16:10: Glucometer 114 02/16/21 20:44: Glucometer 148 02/17/21 05:20: Glucometer 123 02/17/21 11:04: Glucometer 166 02/17/21 16:00: Glucometer 110 02/17/21 21:01: Glucometer 179 02/18/21 05:48: Glucometer 141 02/18/21 11:13: Glucometer 194 02/18/21 15:41: Glucometer 138 02/18/21 20:04: Glucometer 194 02/19/21 06:04: Glucometer 133 02/19/21 10:46: Glucometer 152 02/19/21 15:17: Glucometer 150 02/19/21 20:06: Glucometer 160 02/20/21 05:35: Glucometer 112 02/20/21 11:00: Glucometer 181 02/20/21 16:20: Glucometer 101 02/20/21 20:49: Glucometer 154 02/21/21 05:00: White Blood Count 4.0, Red Blood Count 4.27, Hemoglobin 14.0, Hematocrit 41, Mean Corpuscular Volume 96, Mean Corpuscular Hemoglobin 33, Mean Corpuscular Hemoglobin Concent 34, Red Cell Distribution Width 13.0, Platelet Count 253, Mean Platelet Volume 11.1, Immature Granulocyte % (Auto) 0, Neutrophils (%) (Auto) 51, Lymphocytes (%) (Auto) 29, Monocytes (%) (Auto) 14, Eosinophils (%) (Auto) 5, Basophils (%) (Auto) 1, Neutrophils # (Auto) 2.1, Lymphocytes # (Auto) 1.2, Monocytes # (Auto) 0.6, Eosinophils # (Auto) 0.2, Basophils # (Auto) 0.0, Immature Granulocyte # (Auto) 0.0, Sodium Level 138, Potassium Level 3.6, Chloride Level 105, Carbon Dioxide Level 21, Anion Gap 12, Blood Urea Nitrogen 19, Creatinine 0.85, Estimat Glomerular Filtration Rate 87, BUN/Creatinine Ratio 22, Glucose Level 128, Calcium Level 8.8, Corrected Calcium 9.7, Total Bilirubin 1.1, Aspartate Amino Transf (AST/SGOT) 21, Alanine Aminotransferase (ALT/SGPT) 29, Alkaline Phosphatase 46, Total Protein 5.5, Albumin 2.9, Digoxin Level 0.52 02/21/21 10:50: Glucometer 174 02/21/21 15:17: Glucometer 164 02/21/21 20:06: Glucometer 178 02/22/21 05:58: Glucometer 141 02/22/21 11:19: Glucometer 169 02/22/21 16:34: Glucometer 134 02/22/21 21:04: Glucometer 186 02/23/21 06:11: Glucometer 123 02/23/21 11:20: Glucometer 158 02/23/21 16:38: Glucometer 139 02/23/21 20:16: Glucometer 172 02/24/21 05:38: Glucometer 119 02/24/21 10:26: Glucometer 201 02/24/21 15:45: Glucometer 131 02/24/21 20:57: Glucometer 194 02/25/21 05:25: Glucometer 109 02/25/21 11:07: Glucometer 182 02/25/21 15:51: Glucometer 142 02/25/21 20:51: Glucometer 171 02/26/21 06:18: Glucometer 110 02/26/21 11:44: Glucometer 239 02/26/21 16:06: Glucometer 78 02/26/21 21:33: Glucometer 160 02/27/21 06:41: Glucometer 118 02/27/21 10:44: Glucometer 167 02/27/21 15:29: Glucometer 135 02/27/21 20:19: Glucometer 195 02/28/21 05:33: Glucometer 104 02/28/21 05:45: White Blood Count 4.8, Red Blood Count 4.41, Hemoglobin 14.1, Hematocrit 42, Mean Corpuscular Volume 96, Mean Corpuscular Hemoglobin 32, Mean Corpuscular Hemoglobin Concent 33, Red Cell Distribution Width 12.6, Platelet Count 295, Mean Platelet Volume 10.8, Immature Granulocyte % (Auto) 0, Neutrophils (%) (Auto) 52, Lymphocytes (%) (Auto) 30, Monocytes (%) (Auto) 15, Eosinophils (%) (Auto) 2, Basophils (%) (Auto) 1, Neutrophils # (Auto) 2.5, Lymphocytes # (Auto) 1.4, Monocytes # (Auto) 0.7, Eosinophils # (Auto) 0.1, Basophils # (Auto) 0.1, Immature Granulocyte # (Auto) 0.0, Sodium Level 138, Potassium Level 3.6, Chloride Level 103, Carbon Dioxide Level 25, Anion Gap 10, Blood Urea Nitrogen 23, Creatinine 0.97, Estimat Glomerular Filtration Rate 75, BUN/Creatinine Ratio 24, Glucose Level 103, Calcium Level 9.0, Corrected Calcium 9.7, Total Bilirubin 1.0, Aspartate Amino Transf (AST/SGOT) 21, Alanine Aminotransferase (ALT/SGPT) 20, Alkaline Phosphatase 46, Total Protein 5.9, Albumin 3.1, Digoxin Level 0.45 02/28/21 10:56: Glucometer 196 02/28/21 16:03: Glucometer 129 02/28/21 21:24: Glucometer 174 03/01/21 06:21: Glucometer 119 03/01/21 10:46: Glucometer 226 03/01/21 15:18: Glucometer 120 03/01/21 21:30: Glucometer 151 03/02/21 05:24: Glucometer 117 03/02/21 10:52: Glucometer 163 03/02/21 15:55: Glucometer 112 03/02/21 21:03: Glucometer 156 03/03/21 05:38: Glucometer 115 03/03/21 11:04: Glucometer 147 03/03/21 17:03: Glucometer 105 03/03/21 20:37: Glucometer 240 03/04/21 05:46: Glucometer 119 03/04/21 10:51: Glucometer 179 03/04/21 15:56: Glucometer 124 03/04/21 20:46: Glucometer 189 03/05/21 05:43: Glucometer 114 03/05/21 11:28: Glucometer 174 03/05/21 16:57: Glucometer 147 03/05/21 20:17: Glucometer 169 03/06/21 05:16: Glucometer 116 03/06/21 10:43: Glucometer 154 03/06/21 15:41: Glucometer 147 03/06/21 20:06: Glucometer 174 03/07/21 05:13: Glucometer 120 03/07/21 05:38: White Blood Count 6.1, Red Blood Count 4.28, Hemoglobin 13.9, Hematocrit 41, Mean Corpuscular Volume 95, Mean Corpuscular Hemoglobin 33, Mean Corpuscular Hemoglobin Concent 34, Red Cell Distribution Width 12.7, Platelet Count 184, Mean Platelet Volume 11.9, Immature Granulocyte % (Auto) 0, Neutrophils (%) (Auto) 58, Lymphocytes (%) (Auto) 25, Monocytes (%) (Auto) 14, Eosinophils (%) (Auto) 1, Basophils (%) (Auto) 1, Neutrophils # (Auto) 3.6, Lymphocytes # (Auto) 1.6, Monocytes # (Auto) 0.9, Eosinophils # (Auto) 0.1, Basophils # (Auto) 0.1, Immature Granulocyte # (Auto) 0.0, Sodium Level 139, Potassium Level 3.8, Chloride Level 107, Carbon Dioxide Level 20, Anion Gap 12, Blood Urea Nitrogen 22, Creatinine 0.98, Estimat Glomerular Filtration Rate 74, BUN/Creatinine Ratio 22, Glucose Level 131, Calcium Level 9.0, Corrected Calcium 9.9, Total Bilirubin 0.8, Aspartate Amino Transf (AST/SGOT) 18, Alanine Aminotransferase (ALT/SGPT) 15, Alkaline Phosphatase 39, Total Protein 5.5, Albumin 2.9 03/07/21 12:19: Glucometer 138 03/07/21 15:21: Glucometer 123 03/07/21 20:15: Glucometer 178 03/08/21 05:12: Glucometer 110 03/08/21 10:58: Glucometer 176 03/08/21 15:14: Glucometer 139 03/08/21 20:13: Glucometer 200 03/09/21 05:41: Glucometer 141 03/09/21 10:57: Glucometer 170 03/09/21 15:40: Glucometer 126 03/09/21 20:32: Glucometer 167 03/10/21 05:50: Glucometer 112 03/10/21 11:41: Glucometer 157 03/10/21 17:11: Glucometer 130 03/10/21 20:52: Glucometer 211 03/11/21 05:37: Glucometer 130 03/11/21 10:43: Glucometer 193 03/11/21 15:15: Glucometer 97 03/11/21 21:16: Glucometer 188 03/12/21 06:01: Glucometer 113 03/12/21 10:43: Glucometer 173 03/12/21 15:10: Glucometer 180 03/12/21 20:10: Glucometer 176 03/13/21 05:19: Glucometer 124 03/13/21 11:11: Glucometer 161 03/13/21 15:26: Glucometer 201 03/13/21 20:23: Glucometer 184 03/14/21 05:25: White Blood Count 5.5, Red Blood Count 4.25, Hemoglobin 13.6, Hematocrit 40, Mean Corpuscular Volume 95, Mean Corpuscular Hemoglobin 32, Mean Corpuscular Hemoglobin Concent 34, Red Cell Distribution Width 12.4, Platelet Count 138, Mean Platelet Volume 12.2, Immature Granulocyte % (Auto) 0, Neutrophils (%) (Auto) 57, Lymphocytes (%) (Auto) 26, Monocytes (%) (Auto) 13, Eosinophils (%) (Auto) 3, Basophils (%) (Auto) 1, Neutrophils # (Auto) 3.1, Lymphocytes # (Auto) 1.4, Monocytes # (Auto) 0.7, Eosinophils # (Auto) 0.2, Basophils # (Auto) 0.1, Immature Granulocyte # (Auto) 0.0, Sodium Level 141, Potassium Level 3.7, Chloride Level 107, Carbon Dioxide Level 24, Anion Gap 10, Blood Urea Nitrogen 20, Creatinine 0.82, Estimat Glomerular Filtration Rate 91, BUN/Creatinine Ratio 24, Glucose Level 134, Calcium Level 8.6, Corrected Calcium 9.4, Total Bilirubin 0.9, Aspartate Amino Transf (AST/SGOT) 20, Alanine Aminotransferase (ALT/SGPT) 20, Alkaline Phosphatase 41, Total Protein 5.3, Albumin 3.0 03/14/21 05:44: Glucometer 121 03/14/21 10:47: Glucometer 231 03/14/21 15:21: Glucometer 95 03/14/21 20:12: Glucometer 188 03/15/21 05:23: Glucometer 118 03/15/21 10:47: Glucometer 182 03/15/21 15:27: Glucometer 125 03/15/21 20:36: Glucometer 238 Discharge Home Medications: Active Scripts Active Detrol LA (Tolterodine Tartrate) 4 Mg Cap 4 Mg PO HS 30 Days Calmoseptine Ointment (Menthol/Lanolin/Calamine/Znox) 71 Gm Oint 0 Each TOP BID PRN 30 Days Levemir (Insulin Determir) 1,000 Units/10 Ml Soln 5 Unit SQ HS 30 Days Novolog (Insulin Aspart) 100 Unit/1 Ml Susp 0 Unit SC ACHS 30 Days Lisinopril 10 Mg Tablet 10 Mg PO DAILY 30 Days Flomax (Tamsulosin HCl) 0.4 Mg Cap 0.4 Mg PO DAILY@1800 30 Days Urecholine (Bethanechol Chloride) 10 Mg Tablet 10 Mg PO ACHS 30 Days Reported Ferrous Sulfate 325 Mg Tablet 325 Mg PO DAILY Potassium Chloride 10 Meq Capsule.er 10 Meq PO DAILY Losartan Potassium 50 Mg Tablet 50 Mg PO DAILY Furosemide 20 Mg Tablet 20 Mg PO DAILY Simvastatin 40 Mg Tablet 40 Mg PO HS Famotidine 40 Mg Tablet 40 Mg PO DAILY Levothyroxine Sodium 100 Mcg Tablet 100 Mcg PO DAILY Alogliptin (Alogliptin Benzoate) 12.5 Mg Tablet 12.5 Mg PO DAILY B Complex (Vitamin B Complex) 1 Each Tablet 1 Each PO DAILY Miralax (Polyethylene Glycol 3350) 17 Gm Powd.pack 17 Gm PO DAILY PRN Marion 3 Fish Oil Softgel (Marion-3 Fatty Acids/Fish Oil) 1 Each Capsule.dr 1 Each PO BID Metoprolol Succinate 200 Mg Tab.er.24h 300 Mg PO DAILY TAKES 1 & (200MG) TAB Digoxin 125 Mcg Tablet 125 Mcg PO Q48H Rojas-Mag Complex 300-150 mg Tab (Calcium/Magnesium/Vitamin D3) 1 Each Tablet 1 Each PO DAILY Eliquis (Apixaban) 5 Mg Tablet 5 Mg PO BID Instructions to patient/family Please see electronic discharge instructions given to patient. Diagnosis/Problems Diagnosis/Problems (1) Cervical spinal cord compression (2) Atrial fibrillation (3) Anticoagulation adequate with anticoagulant therapy (4) Urinary retention CARMELLA ESTRADA DO Mar 15, 2021 11:03
[2021-03-15] MEDS: TAMSULOSIN 0.4 MG (FLOMAX) CAP PO SCH (18:03)
[2021-03-15] MEDS: DIGOXIN 0.125 MG (LANOXIN) TAB PO SCH (18:03)
[2021-03-15 20:06] VITALS: BP 105/69
[2021-03-15] MEDS: SIMvastatin 40 MG (ZOCOR) TAB PO SCH (21:01)
[2021-03-15] MEDS: MELATONIN 3 MG TABLET PO PRN (21:01)
[2021-03-16] MEDS: inSUlin ASPART (NovoLOG) 1 UNIT/0.01 ML (CHARGE PER UNIT) SC SCH (06:12)
[2021-03-16] MEDS: BETHANECHOL 10 MG (URECHOLINE) TAB PO SCH (06:45)
[2021-03-16] MEDS: LEVOTHYROXINE 100 MCG (LEVOTHROID) TAB PO SCH (06:45)
[2021-03-16] MEDS: KCL 10 MEQ TAB (MICRO K) PO SCH (06:45)
[2021-03-16] MEDS: MULTIVIT W/MINERALS TAB (THERAGRAN M) PO SCH (06:45)
--- NOTE | 2021-03-16 06:58 | Discharge Summary ---
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 and subsequent neurological deficits Lumbar L4-L5 subarticular recess narrowing B/L Left-sided weakness Hepatic Hemangioma Systolic Heart Failure LFT elevation LBBB Previous hypotension Obesity CAD Dementia/cognitive impairment GERD PUD PVD Diabetic polyneuropathy Progressive weakness High risk of falling Gait disturbance Spasticity T2DM Constipation Edema HTN Paroxysmal A-fib Thrombocytopenia Urinary Retention Status post UTI (resolved) BAM on CPAP Cystoscopy on 02/18/2021 Plan: Aggressive PT, OT, and speech therapy Order basic lab work in the morning Review records, talk to his family members as they are more in tune with his medical condition then the patient himself Neurology follow up Consult Dr. Rubio for A. fib 02/11/2021: Supportive care Dr. Rubio consult Poor memory recall noted 02/12/2021: Incontinence care Aggressive therapy 02/13/2021: Incontinence care Aggressive therapy 02/14/2021: Attempt condom catheter due to incontinence Monitor for retention Dr. Welsh consult 02/15/2021: Appreciate urology management Aggressive therapy Send records to [facility] 02/16/2021: Supportive care Send records to [facility] from [facility] Continue aggressive treatment Cystoscopy tomorrow 02/17/2021: Cystoscopy tomorrow Bowel evacuation 02/18/2021: Cystoscopy Appreciate urology 02/19/2021: Supportive care Urology appreciated 02/20/2021: Supportive care Incontinence care 02/21/2021: Supportive care Incontinence care Appreciate urology 02/22/2021: Detrol for incontinence Appreciate urology Continue aggressive treatment 02/23/2021 Patient will need nursing care at discharge Appreciate urology 02/24/2021: [facility] transfer? Continue aggressive therapy 02/25/2021: senior care admission [facility] still pending 02/26/2021: Await penitentiary placement [facility] referral 02/27/21: Monitor closely Await NH placement Will speak to Dr Kennedy 02/28/21: Updated PCP Will send records NHP 03/01/21: Await placement Send records to Dr Kennedy 03/02/2021: Discontinue Detrol Supportive care 03/03/2021: Patient doing well Maintain urology management 03/04/21: Monitor weakness Sugar management 03/05/2021: We will contact [facility] on Sunday for additional MRIs 03/06/2021: Ordered MRI with and without IV contrast of cervical and thoracic spine per [facility] request that will be done tomorrow 03/07/2021: Review MRI Disposition 03/08/2021: Family meeting for 25 minutes Additional 30 minutes in review of scans and review of data 03/09/2021: Continue aggressive therapy Await [facility] decision from insurance 03/10/2021: Continue aggressive therapy senior care discharge 03/11/2021: Supportive care senior care at discharge 03/12/2021: Change diet to regular for Sunday Supportive care 03/13/2021: Regular diet Supportive care Check labs in the morning 03/14/2021: Await final approval from insurance 03/15/2021: Discharge planned Monitor closely (1) Cervical spinal cord compression (2) Atrial fibrillation (3) Anticoagulation adequate with anticoagulant therapy (4) Urinary retention Discharge Summary Discharge Physical Examination Allergies: Coded Allergies: No Known Drug Allergies (Unverified , 02/09/21) Vitals & I&Os Vital Signs Date Time Temp Pulse Resp B/P (MAP) Pulse Ox O2 Delivery O2 Flow Rate FiO2 03/16/21 10:04 36.4 85 16 150/69 98 Room Air General Appearance: Alert, Oriented X3, Cooperative Respiratory: Clear to Auscultation Cardiovascular: Regular Rate Psych/Mental Status: Mental Status NL Hospital Course Was the Problem List Reviewed?: Yes Hospital Course: Pt had an uneventful lengthy hospital course for 35 days when he presented with cervical spine mass from [facility] unsure of the origination of the mass but likely neoplastic in nature. [facility] was consulted and we were in the process of obtaining insurance approval but that took another week so he was placed in skilled care in the meantime. He had no significant issues. He did have urinary retention prompting Dr. Welsh to perform cystoscopy which was normal. He required no significant drastic medication changes. His vitals remained stable, labs remained stable, bowel function returned back to normal and pt was deemed stable for skilled care. Labs (last 24 hrs) Laboratory Tests 02/10/21 16:31: Glucometer 144H 02/10/21 21:29: Glucometer 174H 02/11/21 05:56: White Blood Count 5.1, Red Blood Count 4.05L, Hemoglobin 13.4, Hematocrit 40, Mean Corpuscular Volume 98, Mean Corpuscular Hemoglobin 33, Mean Corpuscular Hemoglobin Concent 34, Red Cell Distribution Width 13.3, Platelet Count 118L, Mean Platelet Volume 11.4, Immature Granulocyte % (Auto) 0, Neutrophils (%) (Auto) 68, Lymphocytes (%) (Auto) 18, Monocytes (%) (Auto) 10, Eosinophils (%) (Auto) 3, Basophils (%) (Auto) 1, Neutrophils # (Auto) 3.5, Lymphocytes # (Auto) 0.9L, Monocytes # (Auto) 0.5, Eosinophils # (Auto) 0.2, Basophils # (Auto) 0.0, Immature Granulocyte # (Auto) 0.0, Percent Immature Platelet Fraction 3.4, Sodium Level 139, Potassium Level 3.6, Chloride Level 108H, Carbon Dioxide Level 21, Anion Gap 10, Blood Urea Nitrogen 23H, Creatinine 0.70, Estimat Glomerular Filtration Rate 109, BUN/Creatinine Ratio 33, Glucose Level 129H, Calcium Level 8.2L, Corrected Calcium 9.4, Total Bilirubin 1.1H, Aspartate Amino Transf (AST/SGOT) 25, Alanine Aminotransferase (ALT/SGPT) 39, Alkaline Phosphatase 46, Total Protein 5.2L, Albumin 2.5L, Digoxin Level 0.54L 02/11/21 06:23: Glucometer 122H 02/11/21 11:47: Glucometer 196H 02/11/21 17:06: Glucometer 127H 02/11/21 20:27: Glucometer 190H 02/12/21 05:25: Glucometer 106 02/12/21 11:38: Glucometer 111H 02/12/21 16:48: Glucometer 155H 02/12/21 20:26: Glucometer 157H 02/13/21 05:14: Glucometer 123H 02/13/21 10:41: Glucometer 171H 02/13/21 16:58: Glucometer 125H 02/13/21 21:14: Glucometer 158H 02/14/21 05:40: Glucometer 124H 02/14/21 05:50: White Blood Count 4.7, Red Blood Count 4.24L, Hemoglobin 13.8, Hematocrit 41, Mean Corpuscular Volume 96, Mean Corpuscular Hemoglobin 33, Mean Corpuscular Hemoglobin Concent 34, Red Cell Distribution Width 13.2, Platelet Count 108L, Mean Platelet Volume 10.7, Immature Granulocyte % (Auto) 0, Neutrophils (%) (Auto) 60, Lymphocytes (%) (Auto) 26, Monocytes (%) (Auto) 8, Eosinophils (%) (Auto) 4, Basophils (%) (Auto) 1, Neutrophils # (Auto) 2.8, Lymphocytes # (Auto) 1.2, Monocytes # (Auto) 0.4, Eosinophils # (Auto) 0.2, Basophils # (Auto) 0.0, Immature Granulocyte # (Auto) 0.0, Percent Immature Platelet Fraction 3.0, Sodium Level 136, Potassium Level 3.8, Chloride Level 106, Carbon Dioxide Level 23, Anion Gap 7, Blood Urea Nitrogen 18, Creatinine 0.80, Estimat Glomerular Filtration Rate 93, BUN/Creatinine Ratio 23, Glucose Level 127H, Calcium Level 8.3L, Corrected Calcium 9.4, Total Bilirubin 1.2H, Aspartate Amino Transf (AST/SGOT) 23, Alanine Aminotransferase (ALT/SGPT) 35, Alkaline Phosphatase 51, Total Protein 5.3L, Albumin 2.6L 02/14/21 11:11: Glucometer 143H 02/14/21 15:53: Glucometer 180H 02/14/21 21:09: Glucometer 139H 02/15/21 05:41: Glucometer 139H 02/15/21 11:34: Glucometer 164H 02/15/21 17:09: Glucometer 168H 02/15/21 20:52: Glucometer 275H 02/16/21 05:26: Glucometer 108 02/16/21 11:49: Glucometer 145H 02/16/21 16:10: Glucometer 114H 02/16/21 20:44: Glucometer 148H 02/17/21 05:20: Glucometer 123H 02/17/21 11:04: Glucometer 166H 02/17/21 16:00: Glucometer 110 02/17/21 21:01: Glucometer 179H 02/18/21 05:48: Glucometer 141H 02/18/21 11:13: Glucometer 194H 02/18/21 15:41: Glucometer 138H 02/18/21 20:04: Glucometer 194H 02/19/21 06:04: Glucometer 133H 02/19/21 10:46: Glucometer 152H 02/19/21 15:17: Glucometer 150H 02/19/21 20:06: Glucometer 160H 02/20/21 05:35: Glucometer 112H 02/20/21 11:00: Glucometer 181H 02/20/21 16:20: Glucometer 101 02/20/21 20:49: Glucometer 154H 02/21/21 05:00: White Blood Count 4.0L, Red Blood Count 4.27L, Hemoglobin 14.0, Hematocrit 41, Mean Corpuscular Volume 96, Mean Corpuscular Hemoglobin 33, Mean Corpuscular Hemoglobin Concent 34, Red Cell Distribution Width 13.0, Platelet Count 253, Mean Platelet Volume 11.1, Immature Granulocyte % (Auto) 0, Neutrophils (%) (Auto) 51, Lymphocytes (%) (Auto) 29, Monocytes (%) (Auto) 14H, Eosinophils (%) (Auto) 5, Basophils (%) (Auto) 1, Neutrophils # (Auto) 2.1, Lymphocytes # (Auto) 1.2, Monocytes # (Auto) 0.6, Eosinophils # (Auto) 0.2, Basophils # (Auto) 0.0, Immature Granulocyte # (Auto) 0.0, Sodium Level 138, Potassium Level 3.6, Chloride Level 105, Carbon Dioxide Level 21, Anion Gap 12, Blood Urea Nitrogen 19H, Creatinine 0.85, Estimat Glomerular Filtration Rate 87, BUN/Creatinine Ratio 22, Glucose Level 128H, Calcium Level 8.8, Corrected Calcium 9.7, Total Bilirubin 1.1H, Aspartate Amino Transf (AST/SGOT) 21, Alanine Aminotransferase (ALT/SGPT) 29, Alkaline Phosphatase 46, Total Protein 5.5L, Albumin 2.9L, Digoxin Level 0.52L 02/21/21 10:50: Glucometer 174H 02/21/21 15:17: Glucometer 164H 02/21/21 20:06: Glucometer 178H 02/22/21 05:58: Glucometer 141H 02/22/21 11:19: Glucometer 169H 02/22/21 16:34: Glucometer 134H 02/22/21 21:04: Glucometer 186H 02/23/21 06:11: Glucometer 123H 02/23/21 11:20: Glucometer 158H 02/23/21 16:38: Glucometer 139H 02/23/21 20:16: Glucometer 172H 02/24/21 05:38: Glucometer 119H 02/24/21 10:26: Glucometer 201H 02/24/21 15:45: Glucometer 131H 02/24/21 20:57: Glucometer 194H 02/25/21 05:25: Glucometer 109 02/25/21 11:07: Glucometer 182H 02/25/21 15:51: Glucometer 142H 02/25/21 20:51: Glucometer 171H 02/26/21 06:18: Glucometer 110 02/26/21 11:44: Glucometer 239H 02/26/21 16:06: Glucometer 78 02/26/21 21:33: Glucometer 160H 02/27/21 06:41: Glucometer 118H 02/27/21 10:44: Glucometer 167H 02/27/21 15:29: Glucometer 135H 02/27/21 20:19: Glucometer 195H 02/28/21 05:33: Glucometer 104 02/28/21 05:45: White Blood Count 4.8, Red Blood Count 4.41, Hemoglobin 14.1, Hematocrit 42, Mean Corpuscular Volume 96, Mean Corpuscular Hemoglobin 32, Mean Corpuscular Hemoglobin Concent 33, Red Cell Distribution Width 12.6, Platelet Count 295, Mean Platelet Volume 10.8, Immature Granulocyte % (Auto) 0, Neutrophils (%) (A uto) 52, Lymphocytes (%) (Auto) 30, Monocytes (%) (Auto) 15H, Eosinophils (%) (Auto) 2, Basophils (%) (Auto) 1, Neutrophils # (Auto) 2.5, Lymphocytes # (Auto) 1.4, Monocytes # (Auto) 0.7, Eosinophils # (Auto) 0.1, Basophils # (Auto) 0.1, Immature Granulocyte # (Auto) 0.0, Sodium Level 138, Potassium Level 3.6, Chloride Level 103, Carbon Dioxide Level 25, Anion Gap 10, Blood Urea Nitrogen 23H, Creatinine 0.97, Estimat Glomerular Filtration Rate 75, BUN/Creatinine Rat io 24, Glucose Level 103, Calcium Level 9.0, Corrected Calcium 9.7, Total Bilirubin 1.0, Aspartate Amino Transf (AST/SGOT) 21, Alanine Aminotransferase (ALT/SGPT) 20, Alkaline Phosphatase 46, Total Protein 5.9L, Albumin 3.1L, Digoxin Level 0.45L 02/28/21 10:56: Glucometer 196H 02/28/21 16:03: Glucometer 129H 02/28/21 21:24: Glucometer 174H 03/01/21 06:21: Glucometer 119H 03/01/21 10:46: Glucometer 226H 03/01/21 15:18: Glucometer 120H 03/01/21 21:30: Glucometer 151H 03/02/21 05:24: Glucometer 117H 03/02/21 10:52: Glucometer 163H 03/02/21 15:55: Glucometer 112H 03/02/21 21:03: Glucometer 156H 03/03/21 05:38: Glucometer 115H 03/03/21 11:04: Glucometer 147H 03/03/21 17:03: Glucometer 105 03/03/21 20:37: Glucometer 240H 03/04/21 05:46: Glucometer 119H 03/04/21 10:51: Glucometer 179H 03/04/21 15:56: Glucometer 124H 03/04/21 20:46: Glucometer 189H 03/05/21 05:43: Glucometer 114H 03/05/21 11:28: Glucometer 174H 03/05/21 16:57: Glucometer 147H 03/05/21 20:17: Glucometer 169H 03/06/21 05:16: Glucometer 116H 03/06/21 10:43: Glucometer 154H 03/06/21 15:41: Glucometer 147H 03/06/21 20:06: Glucometer 174H 03/07/21 05:13: Glucometer 120H 03/07/21 05:38: White Blood Count 6.1, Red Blood Count 4.28L, Hemoglobin 13.9, Hematocrit 41, Mean Corpuscular Volume 95, Mean Corpuscular Hemoglobin 33, Mean Corpuscular Hemoglobin Concent 34, Red Cell Distribution Width 12.7, Platelet Count 184, Mean Platelet Volume 11.9, Immature Granulocyte % (Auto) 0, Neutrophils (%) (Auto) 58, Lymphocytes (%) (Auto) 25, Monocytes (%) (Auto) 14H, Eosinophils (%) (Auto) 1, Basophils (%) (Auto) 1, Neutrophils # (Auto) 3.6, Lymphocytes # (Auto) 1.6, Monocytes # (Auto) 0.9, Eosinophils # (Auto) 0.1, Basophils # (Auto) 0.1, Immature Granulocyte # (Auto) 0.0, Sodium Level 139, Potassium Level 3.8, Chloride Level 107, Carbon Dioxide Level 20L, Anion Gap 12, Blood Urea Nitrogen 22H, Creatinine 0.98, Estimat Glomerular Filtration Rate 74, BUN/Creatinine Ratio 22, Glucose Level 131H, Calcium Level 9.0, Corrected Calcium 9.9, Total Bilirubin 0.8, Aspartate Amino Transf (AST/SGOT) 18, Alanine Aminotransferase (ALT/SGPT) 15, Alkaline Phosphatase 39L, Total Protein 5.5L, Albumin 2.9L 03/07/21 12:19: Glucometer 138H 03/07/21 15:21: Glucometer 123H 03/07/21 20:15: Glucometer 178H 03/08/21 05:12: Glucometer 110 03/08/21 10:58: Glucometer 176H 03/08/21 15:14: Glucometer 139H 03/08/21 20:13: Glucometer 200H 03/09/21 05:41: Glucometer 141H 03/09/21 10:57: Glucometer 170H 03/09/21 15:40: Glucometer 126H 03/09/21 20:32: Glucometer 167H 03/10/21 05:50: Glucometer 112H 03/10/21 11:41: Glucometer 157H 03/10/21 17:11: Glucometer 130H 03/10/21 20:52: Glucometer 211H 03/11/21 05:37: Glucometer 130H 03/11/21 10:43: Glucometer 193H 03/11/21 15:15: Glucometer 97 03/11/21 21:16: Glucometer 188H 03/12/21 06:01: Glucometer 113H 03/12/21 10:43: Glucometer 173H 03/12/21 15:10: Glucometer 180H 03/12/21 20:10: Glucometer 176H 03/13/21 05:19: Glucometer 124H 03/13/21 11:11: Glucometer 161H 03/13/21 15:26: Glucometer 201H 03/13/21 20:23: Glucometer 184H 03/14/21 05:25: White Blood Count 5.5, Red Blood Count 4.25L, Hemoglobin 13.6, Hematocrit 40, Mean Corpuscular Volume 95, Mean Corpuscular Hemoglobin 32, Mean Corpuscular Hemoglobin Concent 34, Red Cell Distribution Width 12.4, Platelet Count 138, Mean Platelet Volume 12.2, Immature Granulocyte % (Auto) 0, Neutrophils (%) (Auto) 57, Lymphocytes (%) (Auto) 26, Monocytes (%) (Auto) 13H, Eosinophils (%) (Auto) 3, Basophils (%) (Auto) 1, Neutrophils # (Auto) 3.1, Lymphocytes # (Auto) 1.4, Monocytes # (Auto) 0.7, Eosinophils # (Auto) 0.2, Basophils # (Auto) 0.1, Immature Granulocyte # (Auto) 0.0, Sodium Level 141, Potassium Level 3.7, Chloride Level 107, Carbon Dioxide Level 24, Anion Gap 10, Blood Urea Nitrogen 20H, Creatinine 0.82, Estimat Glomerular Filtration Rate 91, BUN/Creatinine Ratio 24, Glucose Level 134H, Calcium Level 8.6, Corrected Calcium 9.4, Total Bilirubin 0.9, Aspartate Amino Transf (AST/SGOT) 20, Alanine Aminotransferase (ALT/SGPT) 20, Alkaline Phosphatase 41, Total Protein 5.3L, Albumin 3.0L 03/14/21 05:44: Glucometer 121H 03/14/21 10:47: Glucometer 231H 03/14/21 15:21: Glucometer 95 03/14/21 20:12: Glucometer 188H 03/15/21 05:23: Glucometer 118H 03/15/21 10:47: Glucometer 182H 03/15/21 15:27: Glucometer 125H 03/15/21 20:36: Glucometer 238H 03/16/21 05:35: Glucometer 122H Pending Labs Laboratory Tests 02/10/21 16:31: Glucometer 144 02/10/21 21:29: Glucometer 174 02/11/21 05:56: White Blood Count 5.1, Red Blood Count 4.05, Hemoglobin 13.4, Hematocrit 40, Mean Corpuscular Volume 98, Mean Corpuscular Hemoglobin 33, Mean Corpuscular Hemoglobin Concent 34, Red Cell Distribution Width 13.3, Platelet Count 118, Mean Platelet Volume 11.4, Immature Granulocyte % (Auto) 0, Neutrophils (%) (Auto) 68, Lymphocytes (%) (Auto) 18, Monocytes (%) (Auto) 10, Eosinophils (%) (Auto) 3, Basophils (%) (Auto) 1, Neutrophils # (Auto) 3.5, Lymphocytes # (Auto) 0.9, Monocytes # (Auto) 0.5, Eosinophils # (Auto) 0.2, Basophils # (Auto) 0.0, Immature Granulocyte # (Auto) 0.0, Percent Immature Platelet Fraction 3.4, Sodium Level 139, Potassium Level 3.6, Chloride Level 108, Carbon Dioxide Level 21, Anion Gap 10, Blood Urea Nitrogen 23, Creatinine 0.70, Estimat Glomerular Filtration Rate 109, BUN/Creatinine Ratio 33, Glucose Level 129, Calcium Level 8.2, Corrected Calcium 9.4, Total Bilirubin 1.1, Aspartate Amino Transf (AST/SGOT) 25, Alanine Aminotransferase (ALT/SGPT) 39, Alkaline Phosphatase 46, Total Protein 5.2, Albumin 2.5, Digoxin Level 0.54 02/11/21 06:23: Glucometer 122 02/11/21 11:47: Glucometer 196 02/11/21 17:06: Glucometer 127 02/11/21 20:27: Glucometer 190 02/12/21 05:25: Glucometer 106 02/12/21 11:38: Glucometer 111 02/12/21 16:48: Glucometer 155 02/12/21 20:26: Glucometer 157 02/13/21 05:14: Glucometer 123 02/13/21 10:41: Glucometer 171 02/13/21 16:58: Glucometer 125 02/13/21 21:14: Glucometer 158 02/14/21 05:40: Glucometer 124 02/14/21 05:50: White Blood Count 4.7, Red Blood Count 4.24, Hemoglobin 13.8, Hematocrit 41, Mean Corpuscular Volume 96, Mean Corpuscular Hemoglobin 33, Mean Corpuscular Hemoglobin Concent 34, Red Cell Distribution Width 13.2, Platelet Count 108, Mean Platelet Volume 10.7, Immature Granulocyte % (Auto) 0, Neutrophils (%) (Auto) 60, Lymphocytes (%) (Auto) 26, Monocytes (%) (Auto) 8, Eosinophils (%) (Auto) 4, Basophils (%) (Auto) 1, Neutrophils # (Auto) 2.8, Lymphocytes # (Auto) 1.2, Monocytes # (Auto) 0.4, Eosinophils # (Auto) 0.2, Basophils # (Auto) 0.0, Immature Granulocyte # (Auto) 0.0, Percent Immature Platelet Fraction 3.0, Sodium Level 136, Potassium Level 3.8, Chloride Level 106, Carbon Dioxide Level 23, Anion Gap 7, Blood Urea Nitrogen 18, Creatinine 0.80, Estimat Glomerular Filtration Rate 93, BUN/Creatinine Ratio 23, Glucose Level 127, Calcium Level 8.3, Corrected Calcium 9.4, Total Bilirubin 1.2, Aspartate Amino Transf (AST/SGOT) 23, Alanine Aminotransferase (ALT/SGPT) 35, Alkaline Phosphatase 51, Total Protein 5.3, Albumin 2.6 02/14/21 11:11: Glucometer 143 02/14/21 15:53: Glucometer 180 02/14/21 21:09: Glucometer 139 02/15/21 05:41: Glucometer 139 02/15/21 11:34: Glucometer 164 02/15/21 17:09: Glucometer 168 02/15/21 20:52: Glucometer 275 02/16/21 05:26: Glucometer 108 02/16/21 11:49: Glucometer 145 02/16/21 16:10: Glucometer 114 02/16/21 20:44: Glucometer 148 02/17/21 05:20: Glucometer 123 02/17/21 11:04: Glucometer 166 02/17/21 16:00: Glucometer 110 02/17/21 21:01: Glucometer 179 02/18/21 05:48: Glucometer 141 02/18/21 11:13: Glucometer 194 02/18/21 15:41: Glucometer 138 02/18/21 20:04: Glucometer 194 02/19/21 06:04: Glucometer 133 02/19/21 10:46: Glucometer 152 02/19/21 15:17: Glucometer 150 02/19/21 20:06: Glucometer 160 02/20/21 05:35: Glucometer 112 02/20/21 11:00: Glucometer 181 02/20/21 16:20: Glucometer 101 02/20/21 20:49: Glucometer 154 02/21/21 05:00: White Blood Count 4.0, Red Blood Count 4.27, Hemoglobin 14.0, Hematocrit 41, Mean Corpuscular Volume 96, Mean Corpuscular Hemoglobin 33, Mean Corpuscular Hemoglobin Concent 34, Red Cell Distribution Width 13.0, Platelet Count 253, Mean Platelet Volume 11.1, Immature Granulocyte % (Auto) 0, Neutrophils (%) (Auto) 51, Lymphocytes (%) (Auto) 29, Monocytes (%) (Auto) 14, Eosinophils (%) (Auto) 5, Basophils (%) (Auto) 1, Neutrophils # (Auto) 2.1, Lymphocytes # (Auto) 1.2, Monocytes # (Auto) 0.6, Eosinophils # (Auto) 0.2, Basophils # (Auto) 0.0, Immature Granulocyte # (Auto) 0.0, Sodium Level 138, Potassium Level 3.6, Chloride Level 105, Carbon Dioxide Level 21, Anion Gap 12, Blood Urea Nitrogen 19, Creatinine 0.85, Estimat Glomerular Filtration Rate 87, BUN/Creatinine Ratio 22, Glucose Level 128, Calcium Level 8.8, Corrected Calcium 9.7, Total Bilirubin 1.1, Aspartate Amino Transf (AST/SGOT) 21, Alanine Aminotransferase (ALT/SGPT) 29, Alkaline Phosphatase 46, Total Protein 5.5, Albumin 2.9, Digoxin Level 0.52 02/21/21 10:50: Glucometer 174 02/21/21 15:17: Glucometer 164 02/21/21 20:06: Glucometer 178 02/22/21 05:58: Glucometer 141 02/22/21 11:19: Glucometer 169 02/22/21 16:34: Glucometer 134 02/22/21 21:04: Glucometer 186 02/23/21 06:11: Glucometer 123 02/23/21 11:20: Glucometer 158 02/23/21 16:38: Glucometer 139 02/23/21 20:16: Glucometer 172 02/24/21 05:38: Glucometer 119 02/24/21 10:26: Glucometer 201 02/24/21 15:45: Glucometer 131 02/24/21 20:57: Glucometer 194 02/25/21 05:25: Glucometer 109 02/25/21 11:07: Glucometer 182 02/25/21 15:51: Glucometer 142 02/25/21 20:51: Glucometer 171 02/26/21 06:18: Glucometer 110 02/26/21 11:44: Glucometer 239 02/26/21 16:06: Glucometer 78 02/26/21 21:33: Glucometer 160 02/27/21 06:41: Glucometer 118 02/27/21 10:44: Glucometer 167 02/27/21 15:29: Glucometer 135 02/27/21 20:19: Glucometer 195 02/28/21 05:33: Glucometer 104 02/28/21 05:45: White Blood Count 4.8, Red Blood Count 4.41, Hemoglobin 14.1, Hematocrit 42, Mean Corpuscular Volume 96, Mean Corpuscular Hemoglobin 32, Mean Corpuscular Hemoglobin Concent 33, Red Cell Distribution Width 12.6, Platelet Count 295, Mean Platelet Volume 10.8, Immature Granulocyte % (Auto) 0, Neutrophils (%) (Auto) 52, Lymphocytes (%) (Auto) 30, Monocytes (%) (Auto) 15, Eosinophils (%) (Auto) 2, Basophils (%) (Auto) 1, Neutrophils # (Auto) 2.5, Lymphocytes # (Auto) 1.4, Monocytes # (Auto) 0.7, Eosinophils # (Auto) 0.1, Basophils # (Auto) 0.1, Immature Granulocyte # (Auto) 0.0, Sodium Level 138, Potassium Level 3.6, Chloride Level 103, Carbon Dioxide Level 25, Anion Gap 10, Blood Urea Nitrogen 23, Creatinine 0.97, Estimat Glomerular Filtration Rate 75, BUN/Creatinine Ratio 24, Glucose Level 103, Calcium Level 9.0, Corrected Calcium 9.7, Total Bilirubin 1.0, Aspartate Amino Transf (AST/SGOT) 21, Alanine Aminotransferase (ALT/SGPT) 20, Alkaline Phosphatase 46, Total Protein 5.9, Albumin 3.1, Digoxin Level 0.45 02/28/21 10:56: Glucometer 196 02/28/21 16:03: Glucometer 129 02/28/21 21:24: Glucometer 174 03/01/21 06:21: Glucometer 119 03/01/21 10:46: Glucometer 226 03/01/21 15:18: Glucometer 120 03/01/21 21:30: Glucometer 151 03/02/21 05:24: Glucometer 117 03/02/21 10:52: Glucometer 163 03/02/21 15:55: Glucometer 112 03/02/21 21:03: Glucometer 156 03/03/21 05:38: Glucometer 115 03/03/21 11:04: Glucometer 147 03/03/21 17:03: Glucometer 105 03/03/21 20:37: Glucometer 240 03/04/21 05:46: Glucometer 119 03/04/21 10:51: Glucometer 179 03/04/21 15:56: Glucometer 124 03/04/21 20:46: Glucometer 189 03/05/21 05:43: Glucometer 114 03/05/21 11:28: Glucometer 174 03/05/21 16:57: Glucometer 147 03/05/21 20:17: Glucometer 169 03/06/21 05:16: Glucometer 116 03/06/21 10:43: Glucometer 154 03/06/21 15:41: Glucometer 147 03/06/21 20:06: Glucometer 174 03/07/21 05:13: Glucometer 120 03/07/21 05:38: White Blood Count 6.1, Red Blood Count 4.28, Hemoglobin 13.9, Hematocrit 41, Mean Corpuscular Volume 95, Mean Corpuscular Hemoglobin 33, Mean Corpuscular Hemoglobin Concent 34, Red Cell Distribution Width 12.7, Platelet Count 184, Mean Platelet Volume 11.9, Immature Granulocyte % (Auto) 0, Neutrophils (%) (Auto) 58, Lymphocytes (%) (Auto) 25, Monocytes (%) (Auto) 14, Eosinophils (%) (Auto) 1, Basophils (%) (Auto) 1, Neutrophils # (Auto) 3.6, Lymphocytes # (Auto) 1.6, Monocytes # (Auto) 0.9, Eosinophils # (Auto) 0.1, Basophils # (Auto) 0.1, Immature Granulocyte # (Auto) 0.0, Sodium Level 139, Potassium Level 3.8, Chloride Level 107, Carbon Dioxide Level 20, Anion Gap 12, Blood Urea Nitrogen 22, Creatinine 0.98, Estimat Glomerular Filtration Rate 74, BUN/Creatinine Ratio 22, Glucose Level 131, Calcium Level 9.0, Corrected Calcium 9.9, Total Bilirubin 0.8, Aspartate Amino Transf (AST/SGOT) 18, Alanine Aminotransferase (ALT/SGPT) 15, Alkaline Phosphatase 39, Total Protein 5.5, Albumin 2.9 03/07/21 12:19: Glucometer 138 03/07/21 15:21: Glucometer 123 03/07/21 20:15: Glucometer 178 03/08/21 05:12: Glucometer 110 03/08/21 10:58: Glucometer 176 03/08/21 15:14: Glucometer 139 03/08/21 20:13: Glucometer 200 03/09/21 05:41: Glucometer 141 03/09/21 10:57: Glucometer 170 03/09/21 15:40: Glucometer 126 03/09/21 20:32: Glucometer 167 03/10/21 05:50: Glucometer 112 03/10/21 11:41: Glucometer 157 03/10/21 17:11: Glucometer 130 03/10/21 20:52: Glucometer 211 03/11/21 05:37: Glucometer 130 03/11/21 10:43: Glucometer 193 03/11/21 15:15: Glucometer 97 03/11/21 21:16: Glucometer 188 03/12/21 06:01: Glucometer 113 03/12/21 10:43: Glucometer 173 03/12/21 15:10: Glucometer 180 03/12/21 20:10: Glucometer 176 03/13/21 05:19: Glucometer 124 03/13/21 11:11: Glucometer 161 03/13/21 15:26: Glucometer 201 03/13/21 20:23: Glucometer 184 03/14/21 05:25: White Blood Count 5.5, Red Blood Count 4.25, Hemoglobin 13.6, Hematocrit 40, Mean Corpuscular Volume 95, Mean Corpuscular Hemoglobin 32, Mean Corpuscular Hemoglobin Concent 34, Red Cell Distribution Width 12.4, Platelet Count 138, Mean Platelet Volume 12.2, Immature Granulocyte % (Auto) 0, Neutrophils (%) (Auto) 57, Lymphocytes (%) (Auto) 26, Monocytes (%) (Auto) 13, Eosinophils (%) (Auto) 3, Basophils (%) (Auto) 1, Neutrophils # (Auto) 3.1, Lymphocytes # (Auto) 1.4, Monocytes # (Auto) 0.7, Eosinophils # (Auto) 0.2, Basophils # (Auto) 0.1, Immature Granulocyte # (Auto) 0.0, Sodium Level 141, Potassium Level 3.7, Chloride Level 107, Carbon Dioxide Level 24, Anion Gap 10, Blood Urea Nitrogen 20, Creatinine 0.82, Estimat Glomerular Filtration Rate 91, BUN/Creatinine Ratio 24, Glucose Level 134, Calcium Level 8.6, Corrected Calcium 9.4, Total Bilirubin 0.9, Aspartate Amino Transf (AST/SGOT) 20, Alanine Aminotransferase (ALT/SGPT) 20, Alkaline Phosphatase 41, Total Protein 5.3, Albumin 3.0 03/14/21 05:44: Glucometer 121 03/14/21 10:47: Glucometer 231 03/14/21 15:21: Glucometer 95 03/14/21 20:12: Glucometer 188 03/15/21 05:23: Glucometer 118 03/15/21 10:47: Glucometer 182 03/15/21 15:27: Glucometer 125 03/15/21 20:36: Glucometer 238 03/16/21 05:35: Glucometer 122 Discharge Home Medications: Active Scripts Active Detrol LA (Tolterodine Tartrate) 4 Mg Cap 4 Mg PO HS 30 Days Calmoseptine Ointment (Menthol/Lanolin/Calamine/Znox) 71 Gm Oint 0 Each TOP BID PRN 30 Days Levemir (Insulin Determir) 1,000 Units/10 Ml Soln 5 Unit SQ HS 30 Days Novolog (Insulin Aspart) 100 Unit/1 Ml Susp 0 Unit SC ACHS 30 Days Lisinopril 10 Mg Tablet 10 Mg PO DAILY 30 Days Flomax (Tamsulosin HCl) 0.4 Mg Cap 0.4 Mg PO DAILY@1800 30 Days Urecholine (Bethanechol Chloride) 10 Mg Tablet 10 Mg PO ACHS 30 Days Reported Ferrous Sulfate 325 Mg Tablet 325 Mg PO DAILY Potassium Chloride 10 Meq Capsule.er 10 Meq PO DAILY Losartan Potassium 50 Mg Tablet 50 Mg PO DAILY Furosemide 20 Mg Tablet 20 Mg PO DAILY Simvastatin 40 Mg Tablet 40 Mg PO HS Famotidine 40 Mg Tablet 40 Mg PO DAILY Levothyroxine Sodium 100 Mcg Tablet 100 Mcg PO DAILY Alogliptin (Alogliptin Benzoate) 12.5 Mg Tablet 12.5 Mg PO DAILY B Complex (Vitamin B Complex) 1 Each Tablet 1 Each PO DAILY Miralax (Polyethylene Glycol 3350) 17 Gm Powd.pack 17 Gm PO DAILY PRN [place] 3 Fish Oil Softgel ([place]-3 Fatty Acids/Fish Oil) 1 Each Capsule.dr 1 Each PO BID Metoprolol Succinate 200 Mg Tab.er.24h 300 Mg PO DAILY TAKES 1 & (200MG) TAB Digoxin 125 Mcg Tablet 125 Mcg PO Q48H Rojas-Mag Complex 300-150 mg Tab (Calcium/Magnesium/Vitamin D3) 1 Each Tablet 1 Each PO DAILY Eliquis (Apixaban) 5 Mg Tablet 5 Mg PO BID Instructions to patient/family Please see electronic discharge instructions given to patient. Diagnosis/Problems Diagnosis/Problems (1) Cervical spinal cord compression (2) Atrial fibrillation (3) Anticoagulation adequate with anticoagulant therapy (4) Urinary retention CARMELLA ESTRADA DO Mar 16, 2021 06:58
[2021-03-16 07:47] VITALS: BP 150/69
[2021-03-16] MEDS: FERROUS SULF 325 MG (IRON) TAB PO SCH (07:54)
[2021-03-16] MEDS: OMEGA 3 (FISH OIL) 1000 MG CAP PO SCH (07:54)
[2021-03-16] MEDS: APIXABAN 5 MG (ELIQUIS) TABLET PO SCH (07:54)
[2021-03-16] MEDS: lisINopril 10 MG (PRINIVIL) TABLET PO SCH (07:55)
[2021-03-16] MEDS: meTOprolol SUCCINATE 100 MG (TOPROL XL) TAB PO SCH (07:55)
[2021-03-16] MEDS: FUROSEMIDE 20 MG (LASIX) TAB PO SCH (07:55)
[2021-03-16] MEDS: DOCUSATE SODIUM 100 MG (COLACE) CAP PO SCH (07:55)
[2021-03-16] MEDS: MAGNESIUM OXIDE (MAG-OX)400 MG TAB PO SCH (07:55)
[2021-03-16] MEDS: LOSARTAN 50 MG (COZAAR) TAB PO SCH (07:55)
[2021-03-16] MEDS: CALCIUM CARB + VIT D 600 MG (CALCARB + D) TAB PO SCH (07:55)
[2021-03-16] MEDS: polyethylene glycoL POWDER 17 GM (MIRALAX) PACK PO SCH (07:56)
[2021-03-16] MEDS: FAMOTIDINE 20 MG (PEPCID) TABLET PO SCH (07:56)
[2021-03-16] MEDS: SENNA W/DOCUSATE (SENOKOT S) TABLET PO SCH (07:56)
[2021-03-16 10:04] VITALS: BP 150/69
--- NOTE | 2021-03-16 14:23 | Therapy Team Discharge Summary ---
Therapy Discharge Summary Discharge Recommendations Date of Discharge Mar 16, 2021 at 10:00 Therapy D/C Recommendations: [facility] (TCU/NH) Physical Therapy Pt improved on [facility] mobility and has improved to be able to propel self w/o assistance from Therapists. Patient continues to requires max/total assistance for bed mobility and transfers from bed to chair. Pt still using Coleen lift due to lack of strength and balance at this time. Patient will require 24 hour care for all ADLs. Occupational Therapy Decreased Activ Tolerance, Decreased Safety Aware, Decreased UE Strength, Dependent Transfers, Impaired Bed Mobility, Impaired Cognition, Impaired Coordination, Impaired Funct Balance, Impaired I ADL's, Impaired Self-Care Skills, Restricted Funct UE ROM PT Civil Cad Designer Goals Civil Cad Designer Goals PT Civil Cad Designer Goals Time Frame: Mar 03, 2021 Roll Left to Right (QC): 4 Sit to Lying (QC): 4 Lying-Sitting on Side/Bed(QC): 4 Sit to Stand (QC): 88 Chair/Qms-pr-Qcwnl Xfer(QC): 88 Car Transfer (QC): 88 Does the Patient Walk: No and Walking Goal NOT indicated Walk 10 feet (QC): 88 Walk 10ft-Uneven Surface(QC): 88 Walk 50ft with 2 Turns (QC): 88 Walk 150 ft (QC): 88 Wheel 50 feet with 2 turns (QC: 6 1 Step (curb) (QC): 88 4 Steps (QC): 88 12 Steps (QC): 88 Picking up an Object (QC): 88 OT Skilled Nursing Goals Civil Cad Designer Goals Time Frame: Mar 25, 2021 Eating (QC): 5 Oral Hygiene (QC): 5 (met) Shower/Bathe Self (QC): 3 (met) Upper Body Dressing (QC): 2 (met) Lower Body Dressing (QC): 2 (not met) On/Off Footwear (QC): 3 (met) Toileting Hygiene (QC): 2 (not met) Toilet/Commode Transfer (QC): 88 1=Demonstrate adherence to instructed precautions during ADL tasks. 2=Patient will verbalize/demonstrate understanding of assistive devices/modifications for ADL. 3=Patient will improve strength/tolerance for activity to enable patient to perform ADL's. NEVILLE RAE PT Mar 16, 2021 14:23
--- NOTE | 2021-03-16 15:26 | Therapy Team Discharge Summary ---
Therapy Discharge Summary Discharge Recommendations Date of Discharge Mar 16, 2021 at 10:00 Therapy D/C Recommendations: Shelter (TCU/NH) Occupational Therapy Pt admitted to ARU with cervical myelopathy. At [facility], pt was independent with ADLs/IADLs and functional mobility without AD. Over the past month, he has progressively gotten weaker, requiring a cane then a walker for mobility. Upon initial evaluation, pt required set up assistance with eating, and total assistance with oral care, dressing and toileting. OT Tx focused on increasing BUE strength and activity tolerance, increasing safety and independence with ADLs and functional mobility, and education on AE. At discharge, pt required set up assistance with eating and oral care, min A showering (Seated), upper body dressing and footwear, and required total assist with lower body dressing and toileting. Pt made functional progress towards goals, meeting LTGs for eating, oral care, showering, upper body dressing and footwear. He did not meet goals for lower body dressing and toileting. Pt discharged from facility, d/c from OT. Decreased Activ Tolerance, Decreased Safety Aware, Decreased UE Strength, Dependent Transfers, Impaired Bed Mobility, Impaired Cognition, Impaired Coordination, Impaired Funct Balance, Impaired I ADL's, Impaired Self-Care Skills, Restricted Funct UE ROM PT Custodial Goals Air Brake Adjuster Goals PT Custodial Goals Time Frame: Mar 03, 2021 Roll Left to Right (QC): 4 Sit to Lying (QC): 4 Lying-Sitting on Side/Bed(QC): 4 Sit to Stand (QC): 88 Chair/Zrj-nb-Ukscu Xfer(QC): 88 Car Transfer (QC): 88 Does the Patient Walk: No and Walking Goal NOT indicated Walk 10 feet (QC): 88 Walk 10ft-Uneven Surface(QC): 88 Walk 50ft with 2 Turns (QC): 88 Walk 150 ft (QC): 88 Wheel 50 feet with 2 turns (QC: 6 1 Step (curb) (QC): 88 4 Steps (QC): 88 12 Steps (QC): 88 Picking up an Object (QC): 88 OT Custodial Goals Custodial Goals Time Frame: Mar 25, 2021 Eating (QC): 5 (met) Oral Hygiene (QC): 5 (met) Shower/Bathe Self (QC): 3 (met) Upper Body Dressing (QC): 2 (met) Lower Body Dressing (QC): 2 (not met) On/Off Footwear (QC): 3 (met) Toileting Hygiene (QC): 2 (not met) Toilet/Commode Transfer (QC): 88 1=Demonstrate adherence to instructed precautions during ADL tasks. 2=Patient will verbalize/demonstrate understanding of assistive devices/modifications for ADL. 3=Patient will improve strength/tolerance for activity to enable patient to perform ADL's. COCO OWEN OT Mar 16, 2021 15:26
== END 2021-03-16 10:00 | DRG 57 ==
PROVIDERS: ADMIT Internal Medicine; ATTEND Internal Medicine
DX: G81.94 Hemiplegia, unspecified affecting left nondominant side (principal); I50.20 Unspecified systolic (congestive) heart failure; G95.29 Other cord compression; G95.19 Other vascular myelopathies; D49.7 Neoplasm of unspecified behavior of endocrine glands and other parts of nervous system; M48.061 Spinal stenosis, lumbar region without neurogenic claudication; R26.9 Unspecified abnormalities of gait and mobility; I25.10 Atherosclerotic heart disease of native coronary artery without angina pectoris; Z66 Do not resuscitate; F03.90 Unspecified dementia, unspecified severity, without behavioral disturbance, psychotic disturbance, mood disturbance, and anxiety; L89.152 Pressure ulcer of sacral region, stage 2; R32 Unspecified urinary incontinence; N31.9 Neuromuscular dysfunction of bladder, unspecified; R15.9 Full incontinence of feces; I11.0 Hypertensive heart disease with heart failure; K21.9 Gastro-esophageal reflux disease without esophagitis; G47.33 Obstructive sleep apnea (adult) (pediatric); K27.9 Peptic ulcer, site unspecified, unspecified as acute or chronic, without hemorrhage or perforation; I73.9 Peripheral vascular disease, unspecified; E11.42 Type 2 diabetes mellitus with diabetic polyneuropathy; D18.03 Hemangioma of intra-abdominal structures; I44.7 Left bundle-branch block, unspecified; I95.9 Hypotension, unspecified; E66.9 Obesity, unspecified; Z68.34 Body mass index [BMI] 34.0-34.9, adult; K59.00 Constipation, unspecified; I48.0 Paroxysmal atrial fibrillation; D69.6 Thrombocytopenia, unspecified; J44.9 Chronic obstructive pulmonary disease, unspecified; E78.00 Pure hypercholesterolemia, unspecified; N40.1 Benign prostatic hyperplasia with lower urinary tract symptoms; R33.8 Other retention of urine; M19.91 Primary osteoarthritis, unspecified site; Z91.81 History of falling; Z87.891 Personal history of nicotine dependence; Z79.01 Long term (current) use of anticoagulants; Z79.4 Long term (current) use of insulin; B35.1 Tinea unguium; L60.0 Ingrowing nail; Z23 Encounter for immunization
CPT/HCPCS: 36415; 72156; 72157; 80053; 80162; 82947; 85025; 93005

== ENCOUNTER → 2021-02-18 | Day surgery (SDC) | payer MEDICARE ==
[~2021-02-18] MED LIST: ALOG12.52 PO; APIX5TAB PO; BTH10T PO; DIGO125T3 PO; FAMO40TA6 PO; FERR325T18 PO; FURO20TA4 PO; INSU100V16 SC; INSU100V39 SQ; INSU100V5 SQ; INSU100V6 SQ; LEVO100T7 PO; LIDOCAINE UROJET 2% GEL 10 ML PKG ONE; LISI10TA25 PO; LOSA50TA63 PO; MENT71OI TOP; METO200T48 PO; OMEG1CAP24 PO; POLY17PO6 PO; POTA10CA43 PO; SIMV40TA25 PO; SOLI10TA7 PO; TMSL.4C PO; TOLTA4 PO; VITA-189 PO; [UNRECOGNIZED DRUG - CODE] PO
--- OUTSIDE RECORDS SUMMARY | 2021-02-18 05:43 | XMS REPORT | Encounter Summary ---
Author Author [facility] Organization [facility] Address Unknown Phone Unavailable Care Team Providers Care Kiln Stoker Name Role Phone Christophe Kennedy MD PCP Reason for Referral * MRI/CAT/PET Scan (Routine) Referred By Contact Referred To Contact Status Reason Specialty Diagnoses / Procedures Ariadne Guzman MD [address] [place] [address] Pending Review Radiology Diagnoses Hepatic hemangioma P rocedures CT Abdomen w wo contrast Electronically signed by Ariadne Guzman MD at Reason for Visit * Auth/Cert Referred By Contact Referred To Contact Status Reason Specialty Diagnoses / Procedures Diagnoses Spinal Cord Lesion 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) Encounter Details Care Team Description Date Type Department Cheryl Malin MD [address] [place] [address] [phone] Ariadne Guzman MD [address] [place] [address] [phone] Ronda Regan MD [address] [place] [address] [phone] Bryson MD [address] [place] [address] [phone] Hospitalist, Physician Diabetic polyneuropathy associated with type [...] diabetes mellitus with diabetic polyneuropathy, unspecified whether custodial insulin use (HCC); Urinary tract infection without hematuria, site unspecified; Constipation, unspecified constipation type; BAM (obstructive sleep apnea); Hepatic hemangioma 01/26/2021 [facility] al - Encounter [address] 02/10/2021 [place] [address] Social History Date Tobacco Use Types Packs/Day [...] Guzman MD - 02/10/2021 9:00 AM CDT [facility] Patient Name: Angela Sanches Account No: [id number] Date of : 1940 Date of Admission: [...] was admitted on 01/26/2021 ( transfer from [facility]) with complaint o f LUE/LLE weakness. Pt [...] the hospital). He had ev aluation at [facility] in [place] and recommended transfer for neurosurgical evaluation. He [...] March 03. Family wanted a second opinion. [facility] contacted and recommended following as an [...] Department Center 03/03/2021 11:00 AM JAKUB Holliday [facility] NeurSurg Dr. Christophe Kennedy MD, primary care physician in 7-14 days. Neurology: [phone] Abdomen for evaluation [...] stability given the patient's history READING SITE: [facility] US Abdomen complete Result Date: 02/05/2021 [...] cancer, or has known cancer. READING SITE: [facility] XR Chest single view frontal Result Date: 02/04/2021 No focal consolidation Cardiomegaly READING SITE: [facility] Echo Complete with Doppler and Color [...] in this summary note. Ariadne Guzman MD [facility] . documented in this encounter Discharge Instructions * Instructions* Ariadne Guzman MD - 01/31/2021 [facility] Patient Name: Angela Sanches Account No: [id number] Date of : 1940 Date of Admission: [...] the hospital). He had ev aluation at [facility] in [place] and recommended transfer for neurosurgical evaluation. He [...] March 03. Family wanted a second opinion. [facility] contacted and recommended following as an [...] Department Center 03/03/2021 11:00 AM JAKUB Holliday [facility] NeurSurg Dr. Christophe Kennedy MD, primary care physician in 7-14 days. Neurology: [phone] Abdomen for evaluation of hepatic hemangiomas: [phone] Discharge Medications New Medications Indication(s) alcohol swabs [...] with the patient and the patient's family/friend. Luke haque questions were answered. Code Status: DNR Recommended [...] stability given the patient's history READING SITE: [facility] US Abdomen complete Result Date: 02/05/2021 [...] cancer, or has known cancer. READING SITE: [facility] XR Chest single view frontal Result Date: 02/04/2021 No focal consolidation Cardiomegaly READING SITE: [facility] Echo Complete with Doppler and Color [...] in this summary note. Ariadne Guzman MD [facility] . Neurosurgery Follow up: follow up in 4 weeks. Please call if you have not heard from us within 3 business days. [facility] [phone] [place] [address], [place] [address] documented in this encounter Medications at Time of Discharge Start Date End Date Medication Sig Dispensed Refills 02/09/2021 alcohol swabs (ALCOHOL Apply at site 100 each 3 PADS) PadM of insulin injection prior to medication administratio n apixaban (ELIQUIS) 5 mg Take 5 mg by 0 tablet mouth 2 (two) times a day. calcium/magnesium/vitamin Take by 0 D3 (SKYE-MAG COMPLEX ORAL) mouth. 02/09/2021 digoxin (LANOXIN) 125 mcg Take 1 [...] 6 units, BG >400 Give 7 units metoprolol succinate Take 300 mg 0 (TOPROL-XL) 200 MG 24 hr by mouth tablet daily. multivit with Take by 0 iron,hematinic (SUPER mouth. B-COMPLEX ORAL) omega 3 fish oil (SEA Take by mouth 0 OMEGA) DHA 200 mg-EPA 300 2 (two) times mg (1,000 mg) capsule a day. 02/09/2021 polyethylene glycol Take 1 packet 14 each 0 (GLYCOLAX) 17 gram packet (17 g total) by mouth daily as needed (constipation ). documented as of this encounter Progress Notes * Ponce Stevens PA-C - 02/10/2021 9:51 AM CDT CHIEF COMPLAINT: Retention LOS: 15 days S: Patient has been voiding, mainly incontinence since Frausto removed yesterday. He denies any abdominal pain. He did feel the urge to urinate. O: Blood pressure 124/80, pulse 74, temperature 36.5 C (97.7 F), temperatur e source Oral, resp. rate 18, height 1.803 m (5' 11"), weight 120.7 kg (266 lb), SpO2 94 %. Scheduled Meds: apixaban 5 mg Oral BID [...] OR prochlorperazine, sodium chloride, sodium chloride 0.9% Most Recent Result within the last 7 days Lab Units 02/08/21 1204 02/06/21 1155 02/05/21 0857 WBC TH/uL 7.29 9.04 8.29 HEMOGLOBIN g/dL 14.3 14.9 14.5 HEMATOCRIT % 41 43 42 PLATELET COUNT TH/uL 133* 103* 95* Most Recent Result within the last 7 days Lab Units 02/08/21 1204 02/07/21 0801 02/06/21 1155 SODIUM MEQ/L 134 134 132* POTASSIUM MEQ/L 3.8 3.6 3.8 CHLORIDE MEQ/L 103 104 104 CARBON DIOXIDE MEQ/L 25 24 22 BLOOD UREA NITROGEN mg/dL 24 21 26 CREATININE mg/dL 0.8 0.8 0.8 GLUCOSE mg/dL 210* 129* 188* CALCIUM mg/dL 7.8* 7.6* 7.7* I/O last 24 Hours: In: 240 [P.O.:240] Out: - Alert, NAD Normal respiratory effort. Abdomen soft nondistended. A/P: Urinary retention. H/o BPH and TURP. Probable neurogenic bladder. Spinal cord lesion. Patient's Frausto was removed yesterday afternoon, he has been voiding since, main ly incontinent. He is comfortable today, his post void was 0 mL this morning. Patient to go to rehab today and they can monitor his voiding status. will s ign off. * Ariadne Guzman MD - 02/09/2021 7:23 AM CDT [facility] Patient Name: Angela Sanches Account No: [id number] Date of : 1940 Date of Admission: 01/26/2021 7:39 PM Subjective Follow up regarding cervical myelopathy with expansile cord lesion, Afib with ep isodic RVR Patient resting in bed this AM. Denies complaints. Failed frausto clamping trial y esterday and states that he cannot feel the [...] re results (as indicated), current inpatient medications, java developer consultant notes and s upport staff notes [...] [facility]. SW working on placement -Discussed with [facility] on-call neurologist. As per requested by patient's family. [facility] is not on the [facility] care network system. Therefore this needs [...] Patient failed clamp trial Urology consulted Thrombocytopenia (HCC) New onset. No previous history Prior to restarting Eliquis patient was on heparin products but currently not o n any heparin. We will hold off on evaluating for HIT Ultrasound abdomen as mentioned Daily CBCs. Improving. INR elevated but patient on eliquis MICHAELA 1:160 non specific. T2DM (type 2 diabetes mellitus) ([facility]) - Reports that he takes PO meds at home, A1c controlled -Started on Lantus when blood sugars were elevated due to steroids. Currently p atient's blood sugars within range with Lantus 5 units and sliding scale Hemiplegia (HCC) Left arm/leg - Workup as [...] discharge destination is Rehab facility/ Unit. Room: [place] [address] Diet: Diet-Consistent Carbohydrate (75 gm) VTE Prevention: [...] chloride, sodium chloride 0.9% Ariadne Guzman MD [facility] . * Ave Bryson MD - 02/08/2021 12:48 PM CDT [facility] Patient Name: Angela Sanches Account No: [id number] Date of : 1940 Date of Admission: [...] re results (as indicated), current inpatient medications, java developer consultant notes and s upport staff notes [...] [facility]. SW working on placement -Discussed with [facility] on-call neurologist. As per requested by patient's family. [facility] is not on the [facility] network system. Therefore this needs to be [...] laxatives. T2DM (type 2 diabetes mellitus) ([facility]) - Reports that he takes PO [...] - PT/OT- [facility] PAF (paroxysmal atrial fibrillation) ([facility]) - Will resume Eliquis given that [...] discharge destination is Rehab facility/ Unit. Room: [facility] [address] Diet: Diet-Consistent Carbohydrate (75 gm) VTE Prevention: [...] chloride, sodium chloride 0.9% Ave Jurado MD [facility] . * Ave Bryson MD - 02/07/2021 1:58 PM CDT [facility] Patient Name: Angela Sanches Account No: [id number] Date of : 1940 Date of Admission: [...] re results (as indicated), current inpatient medications, java developer consultant notes and s upport staff notes [...] [facility]. SW to discuss placement -Discussed with [facility] on-call neurologist. As per requested by patient's family. [facility] is not on the [facility] network system. Therefore this needs to be [...] discharge destination is Rehab facility/ Unit. Room: [place] [address] Diet: Diet-Consistent Carbohydrate (75 gm) VTE Prevention: [...] chloride, sodium chloride 0.9% Ave Jurado MD [facility] . * Shawnee Montiel NP - 02/07/2021 9:54 AM CDT Images from [...] DM2 and BAM. The patient presented to [facility] with lef t-sided weakness on 01/26. Patient [...] with Eliquis 5 mg twice daily for [id number] of at least 5 -Patient has tachycardia [...] and family wishes to be referred to [facility] for further evalua tion I have [...] 29 22 24 BUN 33* -- 23 21 CREAT 1.0 -- 0.9 0.8 0.8 [...] (H) 02/06/2021 GLU 107 (H) 02/05/2021 * Aev Bryson MD - 02/06/2021 1:19 PM CDT [facility] Patient Name: Angela Sanches Account No: [id number] Date of : 1940 Date of Admission: [...] re results (as indicated), current inpatient medications, java developer consultant notes and s upport staff notes [...] [facility]. SW to discuss placement -Discussed with [facility] on-call neurologist. As per requested by patient's family. [facility] is not on the [facility] network system. Therefore this needs to be [...] discharge destination is Rehab facility/ Unit. Room: [facility] [address] Diet: Diet-Consistent Carbohydrate (75 gm) VTE Prevention: [...] chloride, sodium chloride 0.9% Ave Jurado MD [facility] . * Vangie Hurd NP [...] DM2 and BAM. The patient presented [facility] left-sided weakness on 01/26. Patient was [...] with Eliquis 5 mg twice daily for [id number] of at least 5 -Patient has tachycardia [...] either at the tail end of his [facility] lization, or as an outpatient. #3 left [...] Bryson MD - 02/05/2021 2:58 PM CDT [facility] Patient Name: Angela Sanches Account No: [id number] Date of : 1940 Date of Admission: [...] with the performing provider), current inpatient medications, java developer consultant notes and suppor t staff notes [...] [facility]. SW to discuss placement -Discussed with [facility] on-call neurologist. As per requested by patient's family. [facility] is not on the [facility] network system. Therefore this needs to be [...] discharge destination is Rehab facility/ Unit. Room: [place] [address] Diet: Diet-Consistent Carbohydrate (75 gm) VTE Prevention: [...] chloride, sodium chloride 0.9% Ave Jurado MD [facility] . * Araseli Bro MD [...] and BAM, who was initially admitted to [facility] on 01/26 with left-sided weakness. Patient found [...] CHANGES IN THE PAST 24 HOURS: Clinical: NAEON. Denies having chest pain, palpitations, shortness of [...] Bryson MD - 02/04/2021 10:30 AM CDT [facility] Patient Name: Angela Sanches Account No: [id number] Date of : 1940 Date of Admission: 01/26/2021 7:39 PM Subjective Follow up regarding Left sided weakness She is alert and oriented. Blood pressure is soft, patient mentating well. Con tinues have left-sided weakness. Patient's family was at bedside (2 sons) I inf ormed them that I contacted the [facility] for a referral and they recommended following up with them as an outpatient visit/telemedicine visit. The sons expr essed that they were concerned that if they go to acute med rehab and their [facility] does not improve and needs long-term nursing care there would be insurance is sena to transfer the patient to a SNF. I expressed that this is a valid concern and ultimately the decision to go to rehab or SNF is the patient's and the famil y's. I informed the family's consent to the renal social worker. ROS Const: denies fever, chills Eye: denies [...] re results (as indicated), current inpatient medications, java developer consultant notes and s upport staff notes with pertainent findings noted within the assessment/plan. I have personally reviewed the patient's past medical, surgical, family, or social history and there were no changes reported. I have personally spoken with the p atient, the patient's family/friend, nursing staff and social [...] AMR. SW to discuss placement -Discussed with [facility] on-call neurologist. As per requested by patient's family. [facility] is not on the [facility] network system. Therefore this needs to be [...] discharge destination is Rehab facility/ Unit. Room: [facility] [address] Diet: Diet-Consistent Carbohydrate (75 gm) Diet NPO [...] chloride, sodium chloride 0.9% Ave Jurado MD [facility] . * Ave Bryson MD - 02/03/2021 2:18 PM CDT [facility] Patient Name: Angela Sanches Account No: [id number] Date of : 1940 Date of Admission: [...] as well. Reported that they would like [facility] consult for further recommendations. Also stated that they would come in [facility] tomorrow to visit their father and to [...] re results (as indicated), current inpatient medications, java developer consultant notes and s upport staff notes [...] [facility]. SW to discuss placement -Discussed with [facility] on-call neurologist. As per requested by patient's family. [facility] is not on the [facility] care network system. Therefore this needs to be an outpatient referral. Recommended neuro-oncology consult as an outpatient. Spinal cord mass (HCC) See plan above Cervical myelopathy (HCC) Cervical myelopathy See plan above Constipation No bowel movement since admission. X-ray KUB showing fecal impaction We will order water enema x 2 Continue laxatives. T2DM (type 2 diabetes mellitus) ([facility]) - Reports that he takes PO meds at home, A1c controlled -Steroids were completed blood sugars are relatively normal. Will decrease Lant us. UTI (urinary tract infection) - Cover with Rocephin. Will DC antibiotics - Cultures from OSH not available. Hemiplegia ([facility]) Left arm/leg - Workup as above - Consult PT/OT PAF (paroxysmal atrial fibrillation) ([facility]) - Will resume Eliquis given that [...] discharge destination is Rehab facility/ Unit. Room: [place] [address] Diet: Diet-Consistent Carbohydrate (75 gm) VTE Prevention: [...] prochlorperazine, sod ium chloride Ave Jurado MD [facility] . * Ave Bryson MD - 02/02/2021 4:00 PM CDT [facility] Patient Name: Angela Sanches Account No: [id number] Date of : 1940 Date of Admission: [...] re results (as indicated), current inpatient medications, java developer consultant notes and s upport staff notes [...] laxatives. T2DM (type 2 diabetes mellitus) ([facility]) - Reports that he takes PO meds at home, A1c controlled -Blood sugar elevated since starting steroids. We will start Lantus and mealtime insulin along with sliding scale UTI (urinary tract infection) - Cover with Rocephin. Will DC antibiotics - Cultures from OSH not available. Hemiplegia ([facility]) Left arm/leg - Workup as above - Consult PT/OT PAF (paroxysmal atrial fibrillation) ([facility]) - Will resume Eliquis given that [...] discharge destination is Rehab facility/ Unit. Room: [facility] [address] Diet: Diet-Consistent Carbohydrate (75 gm) VTE Prevention: [...] prochlorperazine, sod ium chloride Ave Jurado MD [facility] . * Ave Bryson MD - 02/01/2021 12:58 PM CDT [facility] Patient Name: Angela Sanches Account No: [id number] Date of : 1940 Date of Admission: [...] re results (as indicated), current inpatient medications, java developer consultant notes and s upport staff notes [...] laxatives. T2DM (type 2 diabetes mellitus) ([facility]) - Reports that he takes PO meds at home, A1c controlled -Blood sugar elevated since starting steroids. We will start Lantus and mealtime insulin along with sliding scale UTI (urinary tract infection) - Cover with Rocephin - Will need to follow up cultures from OSH Hemiplegia ([facility]) Left arm/leg - Workup as above - Consult PT/OT PAF (paroxysmal atrial fibrillation) ([facility]) - Will resume Eliquis given that [...] discharge destination is Rehab facility/ Unit. Room: [place] [address] Diet: Diet-Consistent Carbohydrate (75 gm) VTE Prevention: [...] prochlorperazine, sod ium chloride Ave Jurado MD [facility] . * Ave Bryson MD - 01/31/2021 12:27 PM CDT [facility] Patient Name: Angela Sanches Account No: [id number] Date of : 1940 Date of Admission: [...] current plan with son ace mulligan phone. ROS Const: denies fever, chills Eye: denies [...] re results (as indicated), current inpatient medications, java developer consultant notes and s upport staff notes [...] (HCC) See plan above Cervical myelopathy ([facility]) Cervical myelopathy See plan above Constipation No bowel movement since admission. X-ray KUB showing fecal impaction We will order water enema Continue laxatives. T2DM (type 2 diabetes mellitus) ([facility]) - Reports that he takes PO meds at home, A1c controlled -Blood sugar elevated since starting steroids. We will start Lantus and mealtime insulin along with sliding scale UTI (urinary tract infection) - Cover with Rocephin - Will need to follow up cultures from OSH Hemiplegia ([facility]) Left arm/leg - Workup as above - Consult PT/OT PAF (paroxysmal atrial fibrillation) ([facility]) - Will resume Eliquis given that [...] discharge destination is SNF Medicare Certified (vs [place] [facility]). Room: [place] [address] Diet: Diet-Consistent Carbohydrate (75 gm) VTE Prevention: [...] prochlorperazine, sod ium chloride Ave Jurado MD [facility] . * Ave Bryson MD - 01/30/2021 10:31 AM CDT [facility] Patient Name: Angela Sanches Account No: [id number] Date of : 1940 Date of Admission: [...] re results (as indicated), current inpatient medications, java developer consultant notes and s upport staff notes with pertainent findings noted within the assessment/plan. I have personally reviewed the patient's past medical, surgical, family, or social history and there were no changes reported. I have personally spoken with the p atient, the patient's family/friend, another physican and social [...] discharge destination is SNF Medicare Certified. Room: [place] [address] Diet: Diet-Consistent Carbohydrate (75 gm) VTE Prevention: [...] prochlorperazine, sod ium chloride Ave Jurado MD [facility] . * Yanique ValdovinosYULIANA - 01/30/2021 8:52 AM CDT NEUROLOGY PROGRESS [...] left upper extremities (finger tapping) d ecreased Yizncv-ry-znqq without dystaxia or dysmetria Sensation: Light touch [...] Valdovinos APRN, 01/30/2021 8:53 AM pager number: [phone] or Voalte PPE Statement: Yanique Valdovinos APRN [...] Bryson MD - 01/29/2021 9:46 PM CDT [facility] Patient Name: Angela Sanches Account No: [id number] Date of : 1940 Date of Admission: [...] with the performing provider), current inpatient medications, java developer consultant notes and [facility] t staff notes with pertainent findings noted [...] Destination The patient's anticipated discharge destination is [facility] Medicare Certified. Room: [place] [address] Diet: Diet-Consistent Carbohydrate (75 gm) VTE Prevention: [...] proc hlorperazine, sodium chloride Ave Jurado MD [facility] . * Otilia Riley MD - 01/29/2021 8:33 AM CDT [facility] Neurologist: I personally interviewed and examined Mr. Angela Sanches. I discussed the finding s with Yanique Valdovinos APRN and reviewed her note. I agree with the findings with exceptions noted. The patient questions whether he might be slightly stronger today. He has [facility] ed that he is able to lift [...] symmetric in the upper extremities Coordination: Intact dyufnr-ri-quox bilaterally, slower on the left due to [...] upper extremities (finger tapping) ar e reduced. Zxchpj-fl-fqic without dystaxia or dysmetria Reflexes (right/left): Biceps: [...] the last 7 days Lab Units 01/27/21 180 MICHAELA QUALITATIVE Positive* MICHAELA QUANTITATIVE PATTERN 1 [...] will follow with further recommendations Yanique Valdovinos YULIANA, 01/29/2021 8:33 AM pager number: [phone] or Voalte @PPE@ Principal Problem: Spinal cord [...] as May 2020 who was transferred to [facility] on 01/26/21 for further evaluation of findings [...] Negative Pulm: Negative CV: Negative GI: Negative /RIVET HE[employer] GAS: Negative Neuro: Negative Psych: Negative MS: Negative [...] appreciated + drift in left upper L regional office coordinator 3/5, R regional office coordinator 4+/5 Intrinsics 3/5 on L, 4/5 on [...] started prior to ar rival here at [facility]. We will wean them off over the [...] 2 diabetes mellitus (HCC) Ayana Green PA-C [facility] Neurosurgery [facility] [place] [address] [facility], [place] [address] Available via Voalte After 5 pm and on weekends please contact [phone] for appropriate provider PPE Statement: JAKUB English [...] and bicep, 4 -/5 in the left regional office coordinator. The left lower extr emity is 3/5 [...] Adkins NP 01/28/2021 9:26 AM pager number: [phone] Voalte PPE Statement: Gertrude Adkins RN HEALTH AND SAFETY TRAINER-C used Yellow precautions (Level 3 mask, eye [...] Dr. Rodriguez .Gertrude Adkins, 01/28/2021 4:39 PM [facility] Neurologist: I personally interviewed and examined [...] Regan MD - 01/28/2021 8:51 AM CDT [facility] Patient Name: Angela Sanches Account No: [id number] Date of : 1940 Date of Admission: [...] re results (as indicated), current inpatient medications, java developer consultant notes and s upport staff notes [...] in the hospital). He had evaluation at [facility] in [place] (pertinent info below) and recomm ended transfer [...] above T2DM (type 2 diabetes mellitus) ([facility]) - Reports that he takes PO meds at home, A1c controlled - Monitor accucheks with correction factor UTI (urinary tract infection) - Cover with Rocephin - Will need to follow up cultures from OSH Hemiplegia (HCC) Left arm/leg - Workup as above - Consult PT/OT PAF (paroxysmal atrial fibrillation) ([facility]) - Hold Eliquis - Continue Toprol -start [...] discharge destination is SNF Medicare Certified. Room: [place] [address] Diet: Diet-Consistent Carbohydrate (75 gm) VTE Prevention: [...] OR prochlorperazine, sodium chloride Ronda Regan MD [facility] Medicine [facility] . * Ariadne Guzman MD - 01/27/2021 1:07 PM CDT [facility] Patient Name: Angela Sanches Account No: [id number] Date of : 1940 Date of Admission: [...] re results (as indicated), current inpatient medications, java developer consultant notes and s upport staff notes [...] in the hospital). He had evaluation at [facility] in [place] (pertinent info below) and recomm ended transfer [...] discharge destination is SNF Medicare Certified. Room: 14/[place] [address] Diet: Diet-Consistent Carbohydrate (75 gm) VTE Prevention: [...] OR prochlorperazine, sodium chloride Ariadne Guzman MD [facility] Medicine [facility] . documented in this encounter H&P Notes * Gracie Rao DO - 01/26/2021 9:54 PM CDT [facility] Patient Name: Angela Sanches Account No: [id number] Date of : 1940 Date of Admission: [...] in the hospital). He had evaluation at [facility] in [place] (pertinent info below) and recomm ended transfer [...] on CPAP PAF (paroxysmal atrial fibrillation) ([facility]) PUD (peptic ulcer disease) PVD (peripheral vascular disease) ([facility]) T2DM (type 2 diabetes mellitus) ([facility]) Urinary retention Surgical History Procedure Laterality Date [...] 300 mg (1,000 mg) capsule Take by mo ut 2 (two) times a day. potassium chloride [...] person, place, and time. Comments: Left arm regional office coordinator strength decreased compared to right. Left leg dorsi flexion & hip flexion decreased compared to right. Psychiatric: Behavior: Behavior normal. No ECG needed/obtained. I have personally reviewed the patient's vital signs, laboratory/pathology/cultu re results (as indicated), imaging studies (results were not discussed with the performing provider), current inpatient medications, academic support assistant notes, prior admission/outpatient notes and outside medical records with pertainent findings noted within the assessment/plan. I have personally reviewed and updated the veronica gabriel's past medical history, past surgical history, family [...] procedures needed T2DM (type 2 diabetes mellitus) ([facility]) - Reports that he takes PO meds at home, A1c controlled - Monitor accucheks with correction factor UTI (urinary tract infection) - Cover with Rocephin - Will need to follow up cultures from OSH Hemiplegia (HCC) Left arm/leg - Workup as above - Consult PT/OT PAF (paroxysmal atrial fibrillation) ([facility]) - Hold Eliquis - Continue Toprol Essential hypertension - Continue Losartan & Toprol for now - Hold HCTZ and resume when PO intake advanced In addition, see my orders for additional details regarding this patients treatm ent plan. Diet: Diet-Low Fat/Chol, 2 gm Na (Simply Healthy) Diet NPO VTE Prevention: Appropriate VTE chemical treatment ordered. Appropriate VTE [facility] anical treatment ordered. Code Status: DNR Disp: Admit the patient as Inpatient to Intermediate for treatment as noted russell Rao DO [facility] Medicine [facility] . documented in this encounter [...] lab. Ranjan Martínez DO Neurointerventional Radiology Fellow Voalmahsa Jeannine (c) [phone] documented in this encounter Consult Notes * [...] gina ng discharged to rehab unit in [place], [place] tomorrow sometime. PMH: Past Medical History: Diagnosis Date CAD (coronary artery disease) Cognitive impairment Possible dementia, self reported Essential hypertension GERD (gastroesophageal reflux disease) Hyperlipidemia BAM on CPAP PAF (paroxysmal atrial fibrillation) (HCC) PUD (peptic ulcer disease) PVD (peripheral vascular disease) ([facility]) T2DM (type 2 diabetes mellitus) ([facility]) Urinary retention PSH: Past Surgical History: [...] 12:11 PM Negative Negative mg/dL Final Specific [place], UA Date/Time Value Ref Range Status 02/04/2021 [...] stability given the patient's history READING SITE: [employer] US Abdomen complete Result Date: 02/05/2021 1. [...] cancer, or has known cancer. READING SITE: [employer] XR Chest single view frontal Result Date: 02/04/2021 No focal consolidation Cardiomegaly READING SITE: [employer] Echo Complete with Doppler and Color Flow [...] depending on his recovery. Ponce Stevens PA-C [facility] Pager - [phone] After 1:30 pm on Tuesdays and after 4 pm all other days, call [phone] for t he appropriate provider. Do not [...] BAM, who was initially admitted to [facility] on 01/26 with le ft-sided weakness. Critical [...] at 9.4. Blood cultures were sent ea trista today and patient was given a dose [...] 02/04/2021 No focal consolidation Cardiomegaly READING SITE: [facility] Echo Complete with Doppler and Color [...] from the original note were not included. [facility] Cardiology Consult This hospital encounter may have been performed with modifications including chery ited or no face to face contact as noted in physical exam below due to concerns about potential exposure to COVID-19 in an effort to minimize patient and provid er risk. Date: 02/04/2021 Established [facility] patient: No PCP: Christophe Kennedy MD Case discussed with Requesting Physician: No Requesting Physician: Dr. Jurado Reason for consult: AF RVR, LBBB Note generated by: Lyla Hebert, RN, DNP, AG PCNP-C HPI: Mr. Sanches is a 80 year old male with a PMH of coronary artery disease, hy pertension, hyperlipidemia, permanent atrial fibrillation, custodial anticoagula tion with Eliquis, PVD, obesity, heart failure with reduced ejection fraction (L VEF 30% 08/2020), type 2 diabetes mellitus and BAM on CPAP who presented to [facility] on 01/26/21 with LUE/LLE weakness. [...] the findings in this report. READING SITE: [facility] EKG: Atrial Fibrillation at 148 bpm [...] results and recommendatio ns. PPE Statement: Lyla Hebert NP used standard contact precautions. Electronically signed [...] following: Another healthcare provider * Theresa Cast, RDA - 01/31/2021 10:45 AM CDT Associated Order(s): IP CONSULT TO PHYSICAL MEDICINE AND REHABILITATION [facility] 01/31/2021 Patient Identification Patient's Name: Angela Sanches : 1940 Admit Date: 01/26/2021 Attending Provider: Ave Jurado* Patient was seen and evaluated by the Physical Medicine & Rehabilitation Medicine consult service at the request of Ave Hernandez for rehabilitation needs. Primary Care Physician: Christophe [...] extending from C3-T5. [facility] [place] for neurosurgical consultation and definitive managem ent. [...] necessary as other differentials for involvement of jakob tially the entire thickness of the cord [...] on CPAP PAF (paroxysmal atrial fibrillation) ([facility]) PUD (peptic ulcer disease) PVD (peripheral vascular disease) ([facility]) T2DM (type 2 diabetes mellitus) ([facility]) Urinary retention PAST SURGICAL HISTORY: Past [...] Social Gatherings with Friends and Family: Attends Yarsanism Services: Active Member of Clubs or Organizations: [...] F) Oral (!) 52 18 96 % 01/30/21 2022 93/63 01/30/212007 (!) 106/94 36.5 C (97.7 [...] or dysarthria. Cerebellar signs - Intact to yncxky-wv-afep test and finger tap bilaterally. The re [...] 3+/5 proximally and 3/5 wrist extension and regional office coordinator. There is no clonus. No sign of [...] the performing provider), current inpatient medication s, java developer consultant notes, and academic support assistant notes with pertainent findings noted with in [...] case with the following: another healthcare provider, soc juwanl work, attending PM&R staff physician. - We [...] any questions or concerns. Theresa Cast, MSN, RDA, AGNP-C Physical Medicine and Rehabilitation [facility] Pager [phone] * Marie Rodriguez MD - 01/27/2021 10:51 [...] right handed male, presenting in transfer from [facility] in [facility] for evaluation of progressive left sided weakness with PMH significant for atr ial fibrillation on Eliquis (01/24 last dose), dyslipidemia, CAD, DM, BAM on CPAP , PVD, urinary retention, hypetension, and GERD. The patient self discloses he has had memory difficulty for the last few years, and has significant difficulty providing specifics during consultation. 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 [...] on CPAP PAF (paroxysmal atrial fibrillation) ([facility]) PUD (peptic ulcer disease) PVD (peripheral vascular disease) ([facility]) T2DM (type 2 diabetes mellitus) ([facility]) Urinary retention PAST SURGICAL HISTORY: Past [...] Social Gatherings with Friends and Family: Attends Yarsanism Services: Active Member of Clubs or Organizations: [...] or edited the final report. READING SITE: [facility] Active Hospital Problems Cervical myelopathy (HCC) [...] Further recommendations per staff, Dr. Jennifer Pena AGACNP [facility] Neurologist: I personally interviewed and examined Mr. Angela Sanches. I discussed the finding s with nurse practitioner and reviewed the nurse practitioners note. I agree the findings with exceptions noted. This is a late entry, patient was seen earlier today. He is a pleasant 80-year- old right-handed male who was transferred from [place], [place] for neurosurgica l evaluation of an [...] Left upper extremity 3/5 proximal, 4 -/5 regional office coordinator, left lower extrem ity 3/5 proximal, right-sided [...] are upgoing bilaterally. Coordination: No dysmetria on [id number]-cw-gjpj. Gait: Deferred Hemoglobin A1c 6.4%, SARS-CoV-2 negative, [...] male with history of A. fib on [facility] ( last taken on 01/24/2021), hypertension, hyperlipidemia, GERD who was transferred to [facility] on 01/26/2021 for further work-up regarding progressive w eakness left greater than right. Patient tells me that he has had some left leg weakness as early as May 2020, began using a cane in late spring 2020 he be lieves August/September progressing to requiring a walker since November/December. He also r eports multiple falls over the last 4 to 5 weeks due to lower extremity weakness . He presented to outside hospital on 01/21/2021 following a fall. Work -up including noncontrasted MRI of the cervical, thoracic spines was concerning for an expansile mass extending from C3-T5. He was transferred to [facility] for neurosurgical evaluation. Patient endorses some left [...] some left leg weakness as early as Ja nu2020 which he attributed to just being "old." He participated physical th erapy he leaves in August/September due to his left lower extremity weakness [...] on CPAP PAF (paroxysmal atrial fibrillation) ([facility]) PUD (peptic ulcer disease) PVD (peripheral vascular disease) ([facility]) T2DM (type 2 diabetes mellitus) ([facility]) Urinary retention Past Surgical History: Past [...] Social Gatherings with Friends and Family: Attends Yarsanism Services: Active Member of Clubs or Organizations: Attends Club or Organization Meetings: Marital Status: Intimate Partner Violence: Fear of Current or Ex-Partner: Emotionally Abused: Physically Abused: Sexually Abused: ALLERGIES: Patient has no known allergies. Review of Systems: 10 points reviewed and found positive except as noted in the HPI, or below: Const: Negative Eyes: Negative ENMT: Negative Pulm: Negative CV: Negative GI: Negative /RIVET HEATER GAS: Negative Neuro: Negative Psych: Negative MS: Negative [...] pronator drift on left upper extremity RUE regional office coordinator 4+/5, biceps/triceps 4+/5, intrinsics 4+/5, LUE regional office coordinator 3/5, biceps/triceps 3/5, intrinsics 3/5 No munoz's [...] PLAN: 80-year-old male who was transferred to [facility] on 01/26/2021 with months of progressive left-sided [...] times. MRI of the spine at outside [facility] was concerning for an expansile mass [...] The timing of his symptoms are not aguiar pportive of a neoplastic type picture as [...] 2 diabetes mellitus) (HCC) Ayana Green PA-C [facility] Neurosurgery [facility] [place] [address] [facility], [place] [address] Available via Voalte After 5 pm and on weekends please contact [phone] for appropriate provider PPE Statement: JAKUB English used Yellow precautions (Level 1 mask worn o harsha level 3 mask, eye protection, and gloves). documented in this encounter Miscellaneous Notes * Nursing Discharge - Gertrude Mauricio RN - 02/10/2021 10:52 AM CDT Nursing Discharge Note Pt met dc criteria. Dc to [facility]. Pt made aware of transfer. Dc paperwo rk reviewed with patient. RN emailed AVS to pt's son as well. All questions answ ered. Pt left with all belongings, including eyeglasses. RN called report to [facility]. Transported by [facility] strike team. Patient/family satisfied with progress made towards goals and ready for discharg e. * Care Progression Final DC Note - Bekah Pandya LMSW - 02/10/2021 9:17 AM CDT Final Discharge Note Final Discharge Disposition: 62- Inpatient Rehab Facility or Unit Discharge goal and plan is mutually agreed upon by patient and tx team. Patient will discharge to: [place] [facility] Transportation: [facility] via strike team Discharge Time: 1030 Special Instructions: SW placed a copy of the PCS form in pt's packet. RN report number: [phone] Bekah Pandya LMSW Volte: [phone] Desk: [id number] * End of Shift Note - Krista [...] [facility] RN removed frausto per urology orders. [...] to d/c t o ARU tomorrow. Per jocelyneaiflako with RN - nursing staff just got pt moved, mayela aned and resting in bed. Will hold this afternoon and attempt prior to d/c ot AR U if appropriate. Anam Arriaga OTr/L * Discharge Planning - Bekah Pandya LMSW - 02/09/2021 11:34 AM CDT Discharge Planning Interventions General Discharge Note Anticipated discharge disposition: Rehab facility/ Unit Care Progression Plan: [facility], Additional discharge planning information: SW had transport set and pt was ready to dc to ARU at [facility] in [place] at 1145. SW was updated by attending t hat she was uncomfortable w/ dc today as pt still has a frausto. Attending plans t o consult urology to determine if pt needs a super pubic catheter placed. She wi ll keep SW updated, however pt cannot dc today. SW cancelled transport w/ the strike team. THOMAS called to update pt's son, Karel. S W left w/ call back number requesting return call. THOMAS called to update August at [facility]. SW left w/ call back number requesting return call. SW will c ontinue to follow. Referrals: Finalized Discharge Selection(s): Dest[facility] [place] [facility] [place] [address] Accepted Referral(s): Dest[facility] [place] [facility] [place] [address] Current DME Recommendations per Therapy: PT: Wheelchair OT: DME Provider name (freetext flowsheet) Referrals: Referral SmartLink Referrals Made (flowsheet documentation) Referral Accepted (will be removed because this is captured in Destination activ ity) Discharge Planning Participants: Patient, Children Pt/Family Agreement w/ discharge plan: Yes Patient's preferred [facility] post-discharge list provided and discussed quality ratin gs: Acute Rehab Bekah Pandya LMSW Volte: [phone] Desk: [phone] * End of Shift Note - Josue [...] is to discharge once insurance has author ized [facility]. Goals per Patient Condition Fall Prevention Plan [...] Rehab facility/ Unit Care Progression Plan: ARU-[facility], auth pending Additional discharge planning information: SW received call from August at [facility] stating they will start auth this morning. She requested that SW send the therapy evals for insurance. SW sent notes via [employer]. 1210: SW updated pt's son, Karel. He is agreeable. SW will continue to follow. Referrals: Finalized Discharge Selection(s): Dest[facility] [place] [address] [place] [address] Accepted Referral(s): Dest[facility] [place] [facility] [address] [address] Current DME Recommendations per Therapy: PT: Wheelchair OT: DME Provider name (freetext flowsheet) Referrals: Referral SmartLink Referrals Made (flowsheet documentation) Referral Accepted (will be removed because this is captured in Destination activ ity) Discharge Planning Participants: Patient, Children Pt/Family Agreement w/ discharge plan: Yes Patient's preferred CMS post-discharge list provided and discussed quality ratin gs: Acute Rehab Bekah Pandya LMSW Volte: [phone] Desk: [phone] * End of Shift Note - Gracie [...] Rehab facility/ Unit Care Progression Plan: [facility] vs [place] [facility]? Additional discharge planning information: SW called August at [facility] they start auth today. SW sent updated progress and therapy notes via [employer]. SW updated pt's family. They are agreeable. SW will continue to follow. Referrals: Finalized Discharge Selection(s): Dest[facility] [place] [facility] [address] [address] Accepted Referral(s): [facility] [place] [facility] [place] [address] Current DME Recommendations per Therapy: PT: Wheelchair OT: DME Provider name (freetext flowsheet) Referrals: Referral SmartLink Referrals Made (flowsheet documentation) Referral Accepted (will be removed because this is captured in Destination activ ity) Discharge Planning Participants: Patient, Children Pt/Family Agreement w/ discharge plan: Yes Patient's preferred [facility] post-discharge list provided and discussed quality ratin gs: Acute Rehab Bekah Pandya LMSW Volte: [phone] Desk: [phone] * Therapy Note - Katie Park, OT [...] , and gloves) Prior Function Level of [place] Modified independent with ADLs;Modified independent with f [...] therapy Katie Park OTR/L, CLT Occupational Therapist Voalte * Therapy Note - [...] promote functional mobility Care Coordination Care Coordination rn rehab assistance. communication with RN, social wor ker, and RIVET HEATER. Patient left in recliner with all needs within reach and alarm act ivated Alisa Head PT, DPT Physical Therapist * [...] with Pt and confering with RN ROSIE Lopez/Sandra Voalte [phone] * Assessment & Plan Note - Ave [...] End of Shift Note - Anika Garcia, XIOMARA - 02/05/2021 5:35 AM CDT End of [...] from the original note were not included. [facility] Hospitalist - Significant Event Patient Name: Angela Sanches Account No: [id number] Date of : 1940 Date of Admission: [...] and Cardiology was consulted for further management. Loreto reina recommended resuming patient's home dose of Metoprolol 300 mg XR daily. BP c ontinued to drop. D/W Dr Galvan, Do not recommend Amiodarone given that the jakub padron has long standing Afib and unlikely to [...] thought content, speech, affect, and mood. Room: [place] [address] Diet: Diet-Consistent Carbohydrate (75 gm) VTE Prevention: Appropriate VTE chemical treatment ordered. Appropriate VTE mec hanical treatment ordered. Code Status: DNR Ave Jurado MD [facility] . * Therapy Note - Katie Park OT - 02/04/2021 1:53 PM CDT 02/04/21 3865 OT Visit Info Patient/Family Reports RN cleared for OT treatment. Pt awake but initially decl ined therapy. Sons present and patient states he does not want to miss the career information specialist. When given options for therapy bed level [...] Lives With Alone Prior Function Level of [place] Modified independent with ADLs;Modified independent with f [...] of theraband but patient unable to maintain regional office coordinator on theraband with L UE. cuff weight given to patient unable to maintain regional office coordinator right UE this date wit h size [...] to gather supplies for activity. Katie Park OTR/L, CLT Occupational Therapist Voalte * Therapy Note - [...] Source Monitor Care Coordination Care Coordination scheduled occupational rehabilitation aide assist for treatment Alisa Head, PT, DPT [...] explain POC * Therapy Note - Katie Park OT - 02/03/2021 3:24 PM CDT 02/03/21 [...] , and gloves) Prior Function Level of [place] Modified independent with ADLs;Modified independent with f [...] date. Katie Park OTR/L, CLT Occupational Therapist Voalte * Nutrition Note - Kaye Mosher RD - 02/03/2021 3:15 PM CDT Nutrition Brief Note [facility] DIAGNOSIS & INTERVENTION: DIAGNOSIS 1 Nutrition [...] Rehab facility/ Unit Care Progression Plan: AR[facility], auth pending Additional discharge planning information: SW received call from August at [facility] stating they can accept and will start auth today. She is waitin g to hear back from pt's son to confirm they can provide support at pa. SW will continue to follow. Referrals: Finalized Discharge Selection(s): Dest[facility] [place] [facility] [address] [address] Accepted Referral(s): Dest[facility] [place] [facility] [address] [address] Pending - Request Sent Referral(s): Destination [facility] [address], [place] [id number] Current DME Recommendations per Therapy: PT: Wheelchair OT: DME Provider name (freetext flowsheet) Referrals: Referral SmartLink Referrals Made (flowsheet documentation) Referral Accepted (will be removed because this is captured in Destination activ ity) Discharge Planning Participants: Patient, Children Pt/Family Agreement w/ discharge plan: Yes Patient's preferred [facility] post-discharge list provided and discussed quality ratin gs: Acute Rehab Bekah Pandya LMSW Volte: [phone] Desk: [phone] * End of Shift Note - Deirdre [...] bed berman. hand-off given to RN and RIVET HEATER Balance Activity Sitting Surface EOB Sitting Activity [...] Coordination Care Coordination communication with RN and RIVET HEATER Alisa Head PT, DPT Physical Therapist * [...] Body comments Pt re-educated on use of putty tinter maker and sock aid this date. Pt demos fair ability to use putty tinter maker to doff BLE socks seated in recliner. [...] disposition: Rehab facility/ Unit Care Progression Plan: [facility] Additional discharge planning information: THOMAS called Selena at [facility] to f/ u on referral. THOMAS left [...] they want to try [facility] in [place]. THOMAS sent referral via [employer]. THOMAS will continue to follow. Referrals: Pending - Request Sent Referral(s): Destination [facility] [address] [place] [address] Current DME Recommendations per Therapy: PT: Wheelchair OT: DME Provider name (freetext flowsheet) Referrals: Referral SmartLink Referrals Made (flowsheet documentation) Referral Accepted (will be removed because this is captured in Destination activ ity) Discharge Planning Participants: Patient, Children Pt/Family Agreement w/ discharge plan: Yes Patient's preferred [facility] post-discharge list provided and discussed quality ratin gs: Acute Rehab Bekah Pandya LMSW Volte: [phone] Desk: [phone] * Therapy Note - Alisa Head PT [...] w/ call back number requesting return call. [phone]: THOMAS received call from pt's son. He states their preference is [facility] in [place]. THOMAS sent referral via [employer]. THOMAS will continue to follow. Current DME Recommendations per Therapy: PT: Wheelchair OT: DME Provider name (freetext flowsheet) Referrals: Referral SmartLink Referrals Made (flowsheet documentation) Referral Accepted (will be removed because this is captured in Destination activ ity) Discharge Planning Participants: Patient, Children Pt/Family Agreement w/ discharge plan: Yes Patient's preferred [facility] post-discharge list provided and discussed quality ratin gs: Acute Re[facility] [phone] Desk: [phone] * End of Shift Note - Deirdre [...] alarm in place, call light i n deborah, RN aware. *PLAN PT Plan for next treatment progress mobility as tolerated PT Nursing Communication please assist patient up to recliner daily using a hoye r lift Discharge Recommendations Plan Continued PT;Post Acute Care Facility Care Coordination Care Coordination ccx1 for tech assist and set up Alyson Tijerina PT, DPT Physical Therapist MATTI * Therapy Note - Maryan Quinones, OT - 01/31/2021 1:08 PM CDT 01/31/21 [...] to session. Maryan Adams OTR/L Occupational Therapist Matti * Discharge Planning - Bekah Pandya LMSW - 01/31/2021 12:51 PM CDT Discharge Planning Interventions General Discharge Note Anticipated discharge disposition: SNF Medicare Certified (vs ARU) Care Progression Plan: TBD-likely SNF vs ARU? Additional discharge planning information: SW was updated by PMR COLOR CONTROL OPERATOR that she saw pt re: rehab consult. SW will watch for note to determine dispo. SW will contin ue to follow. Bekah Pandya LMSW Volte: [phone] Desk: [phone] * Assessment & Plan Note - Ave [...] Care No acute events. No BM this shift--precision assembler hospitalist Guru [employer] pe r pt request [...] Yes Referral Reason weakness Ordering practitioner Gracie Rao, DO Comorbidities pertaining to therapy diagnosis Past Medical History: CAD (coronary artery disease) Cognitive impairment Possible dementia, self reported Essential hypertension GERD (gastroesophageal reflux disease) Hyperlipidemia BAM on CPAP PAF (paroxysmal atrial fibrillation) ([facility]) PUD (peptic ulcer disease) PVD (peripheral vascular disease) ([facility]) T2DM (type 2 diabetes mellitus) ([facility]) Urinary retention Patient/Family Reports Patient in bed and agreeable to evaluation. he reports th at he has not ambulated in one week PT Received On 01/29/21 PT Visit # 1 Time Calculation Start Time 942 Precautions Fall Risk Yes Isolation None Supplemental [...] ramp to enter Prior Function Level of [place] Modified independent with ADLs;Modified independent with f [...] Coordination Care Coordination communication with RN and RIVET HEATER. room setup Alisa Head PT, DPT Physical [...] scale, explain POC * Therapy Note - Tramaine Quinonesaelelizabeth Rios, OT - 01/28/2021 3:57 PM CDT 01/28/21 [...] (HCC) T2DM (type 2 diabetes mellitus) ([facility]) Urinary retention Patient/Family Reports Seen with RN [...] to assist . Prior Function Level of [place] Modified independent with ADLs;Modified independent with f [...] weakness in LLE and decreased safety with t ransfers at this time. Balance Activity Sitting Surface [...] - 01/28/2021 3:33 PM CDT Nutrition Assessment [facility] DIAGNOSIS & INTERVENTION: DIAGNOSIS 1 Nutrition [...] Recommendation REASON FOR CONSULT: + screen Patient: Angeal Sanches Age: 80 y.o. : 1940 PRIMARY CARE PROVIDER: Christophe Kennedy MD ATTENDING PHYSICIAN: Ronda Regan MD HISTORY OF PRESENT ILLNESS: 80 y.o. male who was admitted on 01/26/2021 with complaint of LUE/LLE weakness. Pt reports symptoms started at least 4-5 months ago. Work up in progress FOOD & NUTRITION RELATED HISTORY: Diet Order: Dietary Orders (From admission, onward) Start Ordered 01/27/21729 Diet-Consistent Carbohydrate (75 gm) Diet effective now 01/27/21 07 Energy Intake Total Energy Intake: Pt states [...] (264 lb 9.6 oz) Weight Change: -0.34 [place] Body Weight: 78 kg (172 lb) % [place] Body Weight: 154 % % Weight Loss [...] Digestive System (Mouth to Rectum): WDL; LBM 01/23 Head and Eyes: WDL Nerves and Cognition: [...] Estimated Energy Needs Total Energy Estimated Needs: 8171-8340 kcal/d Method for Estimating Needs: MSJ (BMR-1.2) [...] Alisa Head PT, DPT Physical Therapist * Assessment & [...] Shift Note - Mary Vogel RN - 01/27/2021 7:56 PM CDT End of [...] Kennedy MD and receives their medications from [facility] [place], [address] [facility] [place] [address] [facility] [place] [address] Piyush Ferrera RN Farm Demonstrator [phone] (voalte) / [phone] (office) * Therapy Note - Miroslava Barrett, PT - 01/27/2021 3:40 PM CDT LP planned this PM. Will follow for Physical Therapy needs. Thank you. Miroslava Barrett PT, DPT Physical Therapist * Discharge Planning [...] cont to sandeep britt. Piyush Ferrera RN Farm Demonstrator [phone] (voalte) / [phone] (office) * Therapy Note - Maryan Quinones OT - 01/27/2021 2:56 PM CDT 01/27/21 1455 OT Visit Info Attempted but was unable to see patient (date) 01/27/21 Reason patient was not seen At procedure OT reason not seen - extended comment Per RN, pt about to leave room for LP proc edure. Will complete OT eval 01/28. Maryan Adams OTR/L Occupational Therapist Voalte * Therapy Note - Maryan Quinones OT - 01/27/2021 8:07 AM CDT Note order for Occupational Therapy consult received. Chart review completed. Pt recently admitted to [facility] and medical work-up is ongoing. Awaiting NSGY consult. Will continue to follow for skilled OT needs. Thank you for the consultation. Maryan Adams, OTR/L Occupational Therapist Voalte * End of Shift Note - Vangie Patel RN - 01/27/2021 7:11 AM CDT End of Shift Summary and Plan of Care Tx to [facility] @1930. A&Ox4. Pt reports he suspects he [...] [facility]. SW working on placement -Discussed with [facility] on-call neurologist. As per requested by patient's family. [facility] is not on the [facility] care network system. Therefore this needs [...] who was admitted on 01/26/2021 ( transfer [facility]) with complaint of LUE/LLE weakness. Pt reports [...] in the past week (just since in [facility]). He had evaluation at [facility] in [place] and recommended tra nsfer for neurosurgical evaluation. He has also struggled [...] March 03. Family wanted a second opinion. [facility] contacted and recommended following as an [...] Date Type Specialty Vangie Marion PA [address] [place] [address] [phone] 03/03/2021 Office Visit Neurosurgery Date/Time Name Type Priority Associated Diag noses 01/27/2021 4:00 PM CDT Specimen Tracking Lab Routine Order Schedule Name Type Priority Associated Diag noses Expected: 05/12/2021, Expires: 2 CT Abdomen w wo contrast Imaging Routine Hepat ic hemangioma documented as of this encounter Procedures Comments [...] C3 COMPLEMENT Routine 01/27/2021 6:04 PM CDT [id number] IGG Routine 01/27/2021 AND IGM 6:04 PM [...] PACS SPINE 2:34 PM CDT consultation CYTOLOGY NON-RIVET HEATER GAS Routine 01/27/2021 2:23 PM CDT GLUCOSE POC [...] POC 138 (H) 70 - 100 mg/dL [facility] Specimen Performing Organization Address City/State/ZIP Code P maame Number [address] [address] LABORATORIES * Comprehensive Metabolic Panel (02/08/2021 12:04 PM CDT) Only the most recent of 5 results within the time period is included. Sodium 134 133 - 147 MEQ/L [facility] Potassium 3.8 3.5 - 5.3 MEQ/L [facility] Chloride 103 96 - 112 MEQ/L [facility] Carbon Dioxide 25 20 - 32 MEQ/L [facility] Anion Gap 6 5 - 17 [facility] Calcium 7.8 (L) 8.4 - 10.5 mg/dL [facility] Glucose 210 (H) 70 - 100 mg/dL [facility] Protein Total 4.9 (L) 6.0 - 8.2 g/dL [facility] Serum [facility] Albumin 2.3 (L) 3.5 - 5.0 g/dL [facility] Alkaline 49 42 - 140 IU/L [facility] Alanine 42 0 - 49 IU/L [facility] Lab e Aspartate 25 15 - 46 IU/L [facility] Lab e Bilirubin Total 1.5 (H) 0.2 - 1.3 mg/dL [facility] Blood Urea 24 7 - 26 mg/dL [facility] Creatinine 0.8 0.6 - 1.3 mg/dL [facility] eGFR Male AA 113 60 - 200 [facility] mL/min/1.73sq [facility] eGFR Male 93 60 - 200 [facility] Non-AA mL/min/1.73sq [facility] Specimen Blood Performing Organization Address City/State/ZIP Code P maame Number [address] [address] LABORATORIES [facility] [address] [place] [address] * CBC and Diff (manual diff if necessary) (02/08/2021 12:04 PM CDT) Only the most recent of 6 results within the time period is included. WBC 7.29 4.00 - 11.00 TH/uL [facility] RBC 4.36 4.31 - 5.84 MIL/uL [facility] Hemoglobin 14.3 13.0 - 17.0 g/dL [facility] Hematocrit 41 40 - 50 % [facility] MCV 94 80.0 - 99.0 fL [facility] MCH 33 27.0 - 34.0 pg [facility] MCHC 35 32 - 36 % [facility] RDW 13.1 11.5 - 14.5 % [facility] Platelet Count 133 (L) 140 - 400 TH/uL [facility] MPV 12.1 9.4 - 12.3 fL [facility] Nucleated RBCs 0 0 - 0 /100 [facility] % Neutrophils 78 45 - 78 % [facility] %Lymphocytes 10 (L) 15 - 47 % [facility] % Monocytes 9 0 - 12 % [facility] %Eosinophils 3 0 - 7 % [facility] %Basophils 0 0 - 2 % [facility] % Imm Grans 0 0 - 1 % [facility] # Granulocytes 5.72 1.70 - 6.80 TH/uL [facility] # Lymphocytes 0.74 (L) 1.00 - 3.30 TH/uL [facility] # Monocytes 0.63 0.20 - 0.90 TH/uL [facility] # Eosinophils 0.19 0.00 - 0.40 TH/uL [facility] # Basophils 0.01 0.00 - 0.10 TH/uL [facility] Specimen Blood Performing Organization Address City/State/ZIP Code P maame Number [address] [id number] LABORATORIES [facility] [address] [place] [address] * Acute Hepatitis Panel (02/07/2021 8:01 AM CDT) Hepatitis B Non-reactive Non-reactive [facility] Core [facility] Hospital Lab Hepatitis B Non-reactive Non-reactive [facility] Hepatitis C Ab Non-reactive Non-reactive [facility] Hepatitis A Ab Non-reactive Non-reactive [facility] Specimen Blood Performing Organization Address City/State/ZIP Code P maame Number [facility] [address] [place] [address] LABORATORIES [facility] [address] [place] [address] * CT Abdomen w wo contrast (02/06/2021 [...] given the patient's hi story READING SITE: [facility] Narrative Performed At Patient: ANGELA SANCHES Sex#: M #: 1940 [place]# : [id number] Location: [address] N213-01 Accession# : [id number] Ordering Provider: AVE BRYSON Procedure Requested: [id number] CT ABDOM EN W WO CONTRAST Reason [...] ANGELA SANCHES Sex#: M #: 1940 [place]#: [id number] Location: [address] N213-01 Ordering Provider: AVE BRYSON Procedure Requested: [id number] CT ABDOMEN W WO CONTRAST Reason for [...] stability given the patient's history READING SITE: [facility] Performing Organization Address City/State/ZIP Code P maame Number [place] * US Abdomen complete (02/05/2021 10:20 AM CDT) Specimen Impressions Performed At 1. Spleen is normal size. [place] 2. Gallbladder contains sludge and shad owing stone. No evidence of acute cholecystitis. 3. 2.6 cm echogenic lesion in the left hepatic lobe, potentially a hemangioma. This should be confirmed wi th CT or MRI if patient has chronic liver disease, is at risk for d evelopment of liver cancer, or has known cancer. READING SITE: [facility] Narrative Performed At Patient: ANGELA SANCHES Sex#: M #: 1940 Q[place]# : [id number] Location: [address] N213-01 Accession# : [id number] Ordering Provider: AVE BRYSON Procedure Requested: [id number] US ABDOM EN COMPLETE Reason for Exam: [...] ANGELA SANCHES Sex#: M #: 1940 [place]#: [id number] Location: [place] [address] Ordering Provider: AVE BRYSON Procedure Requested: [id number] US ABDOMEN COMPLETE Reason for Exam: thrombocytopenia [...] cancer, or has known cancer. READING SITE: [facility] Address City/State/ZIP Code P maame Number [place] * Basic Metabolic Panel (02/05/2021 8:57 AM CDT) Only the most recent of 3 results within the time period is included. Sodium 135 133 - 147 MEQ/L [facility] Potassium 4.1 3.5 - 5.3 MEQ/L [facility] Chloride 103 96 - 112 MEQ/L [facility] Carbon Dioxide 29 20 - 32 MEQ/L [facility] Anion Gap 3 (L) 5 - 17 [facility] Calcium 7.6 (L) 8.4 - 10.5 mg/dL [facility] Glucose 107 (H) 70 - 100 mg/dL [facility] Blood Urea 23 7 - 26 mg/dL [facility] Creatinine 0.9 0.6 - 1.3 mg/dL [facility] eGFR Male AA 98 60 - 200 [facility] mL/min/1.73sq [facility] Lab eGFR Male 81 60 - 200 [facility] Non-AA mL/min/1.73sq [facility] Specimen Blood Performing Organization Address City/State/ZIP [place] [address] LABORATORIES [facility] [address] [place] [address] * Lipid Panel (02/04/2021 5:57 PM CDT) Cholesterol 115 100 - 200 mg/dL [facility] HDL Cholesterol 29 (L) 40 - 110 mg/dL [facility] Non-HDL 86 0 - 130 mg/dL [facility] Triglycerides 83 0 - 150 mg/dL [facility] LDL Cholesterol 69 0 - 99 mg/dL [facility] Cholesterol/HDL 4.0 0.0 - 4.5 [facility] Specimen Blood Performing Organization Address City/State/ZIP Code P maame Number [address] [address] LABORATORIES [facility] [address] [place] [address] * Magnesium (02/04/2021 5:57 PM CDT) Magnesium 2.2 1.4 - 2.7 mg/dL [facility] Specimen Blood Performing Organization Address City/State/ZIP Code P maame Number [address] [address] LABORATORIES [facility] [address] [place] [address] * Lactate Venous WB, 4 Hour (02/04/2021 5:57 PM CDT) Only the most recent of 2 results within the time period is included. Lactate Venous 1.2 0.0 - 2.0 mmol/L [facility] Specimen Blood Performing Organization Address City/[facility] Code P maame Number [address] [address] LABORATORIES [facility] [address] [place] [address] * XR Chest single view frontal (02/04/2021 4:20 PM CDT) Specimen Impressions Performed At focal [facility] Cardiomegaly READING SITE: [facility] Narrative Performed At Patient: ANGELA SANCHES Sex#: M #: 1940 Q[place]# : [id number] Location: [address] N213-01 Accession# : [id number] Ordering Provider: AVE BRYSON Procedure Requested: [id number] XR CHEST SINGLE VIEW FRONTAL Reason for [...] ANGELA SANCHES Sex#: M #: 1940 Quita#: [id number] Location: [place] [address] Ordering Provider: AVE BRYSON Procedure Requested: [id number] XR CHEST SINGLE VIEW FRONTAL Reason for [...] IMPRESSION No focal consolidation Cardiomegaly READING SITE: [facility] Performing Organization Address City/[facility]/ZIP Code P maame Number [place] * T4 Free (02/04/2021 3:57 PM CDT) T4 Free 1.8 0.8 - 2.2 ng/dL [facility] Specimen Blood Performing Organization Address City/[facility]/ZIP Code P maame Number [address] [address] LABORATORIES [facility] [address] [place] [address] * Thyroid Stimulating Hormone (02/04/2021 3:57 PM CDT) Thyroid 4.29 0.47 - 4.68 uIU/mL [facility] Hormone Specimen Blood Performing Organization Address City/[facility]/ZIP Code P maame Number [address] [address] LABORATORIES [facility] [address] [place] [address] * Lactate Venous WB, 2 Hour (02/04/2021 3:57 PM CDT) Only the most recent of 2 results within the time period is included. Lactate Venous 1.9 0.0 - 2.0 mmol/L [facility] Specimen Blood Performing Organization Address City/[facility]/ZIP Code P maame Number [address] [place] [address] LABORATORIES [facility] [address] [place] [address] * Echo Complete with Doppler and Color [...] ANGELA SANCHES Date: 02/04/2021 13:21 Chart #: [id number] : 1940 Location: [facility] Sono: [email or web address] Age: 80 Gender: M Referring: AVE BRYSON [...] Apical Anterior, M id Anterior, Basal Anterior, [place] FINDINGS LV Ejection Fraction: 25 Patient declined [...] ANGELA SANCHES Date: 02/04/2021 13:21 Chart #: [id number] : 1940 Location: [facility] Sono: brittney Age: 80 Gender: M [...] Inferior, Apical Anterior, Mid Anterior, Basal Anterior, [place] FINDINGS LV Ejection Fraction: 25 Patient declined [...] 148 TRACEMASTER Specimen Narrative Performed At TRACEMAST[facility] Test Date: 2021-02-04 Pat Name: ANGELA SANCHES Department: [facility] Room: 13 Gender: Male Performance Tester: [id number] : 1940 Requested By: AVE JURADO Order Number: [id number] Reading MD: William Lai Measurements Intervals [place] Rate: 148 P: NE: QRS: 37 QRSD: 144 T: 236 QT: 336 QTc: 528 Interpretive Statements ATRIAL FIBRILLATION, V-RATE 92-183 IVCD, CONSIDER ATYPICAL LBBB VENTRICULAR PREMATURE COMPLEX Electronically Signed On 02-06-2021 15:2 1:57 CDT by William Lai Procedure Note Interface, External Ris In - 02/06/2021 3:22 PM CDT [facility] Test Date: 2021-02-04 Pat Name: ANGELA SANCHES Department: N2S Room: N213 Gender: Male Performance Tester: [id number] : 1940 Requested By: AVE JURADO Order Number: [id number] Reading MD: William Lai Measurements Intervals [place] Rate: 148 P: NE: QRS: 37 QRSD: 144 T: 236 QT: 336 QTc: 528 Interpretive Statements ATRIAL FIBRILLATION, V-RATE 92-183 IVCD, CONSIDER ATYPICAL LBBB VENTRICULAR PREMATURE COMPLEX Electronically Signed On 02-06-2021 15:21:57 CDT by William Lai Performing Organization Address City/[facility]/ZIP Code P maame Number [facility]ASTER * Culture, Blood (02/04/2021 12:12 PM CDT) Only the most recent of 2 results within the time period is included. Pathologist [facility] Culture Result No Growth at 5 days [facility] Specimen Blood Narrative Performed At L AC ; 20 ML [facility] Performing Organization Address City/[facility]/ZIP Code P maame Number [facility] [address] [place] [address] LABORATORIES [facility] [address] [place] [address] * Urinalysis Microscopic Only (02/04/2021 12:11 PM CDT) Pathologist [facility] Microscopic RBC 0-5 0 - 5 /hpf [facility] Microscopic WBC 0-5 0 - 5 /hpf [facility] Epithelial Absent Absent [facility] Hyaline Cast Absent Absent [facility] Bacteria Absent Absent [facility] Amorphous Urate Present (A) Absent [facility] Specimen Catheter Urine Performing Organization Address [facility] Code P maame Number [facility] [address] [place] [address] LABORATORIES [facility] [address] [place] [address] * Urinalysis Reflex (02/04/2021 12:11 PM CDT) Appearance, Dark Yellow [facility] Glucose Urine Negative Negative mg/dL [facility] Bilirubin Urine Small (A) Negative [facility] Ketones Urine Negative Negative mg/dL [facility] Specific 1.019 1.001 - 1.030 [facility] Hemoglobin Trace (A) Negative [facility] PH Urine 5.5 5.0 - 8.0 [facility] Protein Urine Negative Negative mg/dL [facility] Urobilinogen Negative Negative EU/dL [facility] Nitrite Urine Negative Negative [facility] Leukocyte Positive (A) Negative [facility] Specimen Catheter Urine Performing Organization Address City/[facility]/ZIP Code P maame Number [address] [address] LABORATORIES [facility] [address] [place] [address] * Prothrombin Time/INR (02/04/2021 12:05 PM CDT) Pathologist [facility] Protime 21.1 (H) 11.4 - 15.0 sec [facility] INR 1.9 (H) 0.8 - 1.2 [facility] Specimen Blood Performing Organization Address City/[facility] Code P maame Number [address] [address] LABORATORIES [facility] [address] [place] [address] * Troponin (02/04/2021 12:03 PM CDT) Pathologist [facility] Troponin 0.01 0.00 - 0.03 ng/mL [facility] Comment: Hospital Lab Troponin Value Interpretation 0.00 - 0.03 Healthy 0.04 - 0.12 Increased Cardiac Risk >0.12 Myocardial Infarction Troponin may not become elevated until 6 to 8 hours after onset of symptoms. Specimen Blood Performing Organization Address City/[facility]/ZIP Code P maame Number [address] [address] LABORATORIES [facility] [address] [place] [address] * Lactate Venous WB - 0hr STAT (02/01/2021 4:23 PM CDT) Lactate Venous 3.7 (H) 0.0 - 2.0 mmol/L [facility] Specimen Blood Performing Organization Address City/State/ZIP Code P maame Number [address] [address] LABORATORIES [facility] [address] [place] [address] * XR Abdomen single view AP (01/31/2021 10:46 AM CDT) Specimen Impressions Performed At Probable fecal impaction in the rectum. Nonobstructiv e bowel gas PRUDENCESON pattern. ATTESTATION STATEMENT: Staff Radiologis t has personally reviewed this study and agrees with the findings in t his report. READING SITE: [facility] Narrative Performed At Patient: ANGELA SANCHES Sex#: M #: 1940 [place]# : [id number] Location: [address] N213-01 Accession# : [id number] Ordering Provider: AVE BRYSON Procedure Requested: [id number] XR ABDOM EN SINGLE VIEW AP Reason [...] ANGELA SANCHES Sex#: M #: 1940 [place]#: [id number] Location: [address] N213-01 Ordering Provider: AVE BRYSON Procedure Requested: [id number] XR ABDOMEN SINGLE VIEW AP Reason for [...] the findings in this report. READING SITE: [facility] Organization Address City/State/ZIP Code P maame Number ALICIASON * IR Lumbar puncture w fluoro (01/28/2021 7:27 AM CDT) Specimen Impressions Performed At Successful fluoroscopically-guided lumbar puncture wi thout complication. GERMAN ATTESTATION STATEMENT: The Staff Physic apple has personally reviewed the images and dictated, reviewed, or edite d the final report. READING SITE: [facility] Narrative Performed At Patient: ANGELA SANCHES Sex#: M #: 1940 [place]# : [id number] Location: [facility] N2 N214-01 Accession# : [id number] Ordering Provider: AYANA GREEN Procedure Requested: [id number] IR LUMBA R PUNCTURE W FLUORO Reason [...] and alternatives were discussed with the pa tient by Dr. Tam. Risks specifically discussed included pain, b leeding, infection, spinal headache, cerebral spinal fluid (CSF) l eak, and potential nerve damage. The patient questions were answered, an d both verbal and written consent was given to proceed. ATTENDING PHYSICIAN: Dr. Becerril, the mo urointerventional attending physician, was present for the entire p rocedure. SAFEKEEPING CLERK: Dr. Ranjan Martínez, neuroradiology interventional fellow. Dr. [...] ANGELA SANCHES Sex#: M #: 1940 [place]#: [id number] Location: [address] N214-01 Ordering Provider: AYANA GREEN Procedure Requested: [id number] IR LUMBAR PUNCTURE W FLUORO Reason for [...] physician, was present for the entire procedure. SAFEKEEPING CLERK: Dr. Ranjan Martínez, neuroradiology interventional fellow. Dr. [...] or edited the final report. READING SITE: [facility] Performing Organization Address City/State/ZIP Code P [...] edite d the final report. READING SITE: [facility] Narrative Performed At Patient: ANGELA SANCHES Sex#: M #: 1940 [place]# : [id number] Location: [address] N214-01 Accession# : [id number] Ordering Provider: AYANA GREEN Procedure Requested: [id number] MRI THOR ACIC SPINE W WO CONTRAST [...] ANGELA SANCHES Sex#: M #: 1940 [place]#: [id number] Location: [address] N214- Ordering Provider: AYANA GREEN Procedure Requested: [id number] MRI THORACIC SPINE W WO CONTRAST Reason [...] or edited the final report. READING SITE: [facility] Performing Organization Address City/State/ZIP Code P [...] MRI for spinal cord findings. READING SITE: [facility]. ATTESTATION STATEMENT: The Staff Radiologist has personally re viewed the images and dictated, reviewed, or edited the final report. Narrative Performed At Patient: ANGELA SANCHES Sex#: M #: 1940 [place]# : [id number] Location: [place] [address] Accession# : [id number] Ordering Provider: AYANA GREEN Procedure Requested: [id number] MRI HEAD W WO CONTRAST Reason for [...] ANGELA SANCHES Sex#: M #: 1940 [place]#: [id number] Location: [address] N214-01 Ordering Provider: AYANA GREEN Procedure Requested: [id number] MRI HEAD W WO CONTRAST Reason for Exam: progressive left sided weakness Exam Ordered: 01/27/2021 1011 Begin exam date/time: 01/27/20211942 Exam Date/Time: 01/27/20212113 MRI HEAD W WO CONTRAST Date: 01/27/2021 [...] MRI for spinal cord findings. READING SITE: [facility]. ATTESTATION STATEMENT: The Staff Radiologist has [...] edite d the final report. READING SITE: [facility] Narrative Performed At Patient: ANGELA SANCHES Sex#: M #: 1940 [place]# : [id number] Location: [place] 1514014-01 Accession# : [id number] Ordering Provider: AYANA GREEN Procedure Requested: [id number] MRI CERV ICAL SPINE W WO CONTRAST [...] ANGELA SANCHES Sex#: M #: 1940 [place]#: [id number] Location: [place] [address] Ordering Provider: AYANA GREEN Procedure Requested: [id number] MRI CERVICAL SPINE W WO CONTRAST Reason for Exam: concern for expansile mass at OSH, progressive left sided weakness Exam Ordered: 01/27/2021 1010 Begin exam date/time: 01/27/20211942 Exam Date/Time: 01/27/20212112 MRI CERVICAL SPINE W [...] or edited the final report. READING SITE: [facility] Performing Organization Address City/[facility] P maame Number GERMAN * Antiphospholipid Panel II (01/27/2021 6:04 PM CDT) Protime 17.0 (H)Comment: Tissue 11.4 - 15.0 sec [facility] plasminogen activators (TPA) Hospital Lab and anticoagulation therapy, including Vitamin K, Xa, and direct thrombin inhibitors, can affect clot-based testing. APL testing cannot be performed when patient is taking Eliquis. INR 1.4 (H) 0.8 - 1.2 [facility] APTT 24 22 - 34 sec [facility] Specimen Blood Performing Organization Address City/[facility] Code P maame Number [address] [address] LABORATORIES [facility] [address] [place] [address] * Anticardiolipin Antibodies (01/27/2021 6:04 PM CDT) Anticardiolipin <3 0 - 20 CU [facility] IgG [facility] Anticardiolipin 21 (H) 0 - 20 CU [facility] IgM Hospital Lab Specimen Blood Performing Organization Address City/[facility] Code P maame Number [address] [address] LABORATORIES [facility] [address] [place] [address] * Iyue-5-Eekomahsxbdo IgG and IgM (01/27/2021 6:04 PM CDT) B2 GLYCOPROTEIN 7 0 - 20 CU [facility] I (IGG)AB Hospital Lab B2 GLYCOPROTEIN 2 0 - 20 CU [facility] I (IGM)AB Hospital Lab Specimen Blood Performing Organization Address [facility] Code P maame Number [address] [address] LABORATORIES [facility] [address] [place] [address] * Complement Total (CH50) (01/27/2021 6:04 PM [...] determine out of range values. Performed at: BN - [facility] [address] [id number] Guidance Counselor: Rony Berg MD, Phone: [phone] Specimen Blood Performing Organization Address City/[facility]/ZIP Code P maame Number [facility] [address] [place], [place] [address] [facility] Interface [id number] [place], [place] [address] [facility] * C4 Complement (01/27/2021 6:04 PM CDT) Pathologist [facility] C4 Complement 10 (L) 14 - 44 mg/dL [facility] Specimen Blood Performing Organization Address City/[facility]/ZIP Code P maame Number [address] [address] LABORATORIES [facility] [address] [place] [address] * C3 Complement (01/27/2021 6:04 PM CDT) Pathologist [facility] C3 Complement 103 83 - 172 mg/dL [facility] Specimen Blood Performing Organization Address City/[facility]/ZIP Code P maame Number [address] [address] LABORATORIES [facility] [address] [place] [address] * HTLV-I/II Antibodies Qual (01/27/2021 6:04 PM CDT) Pathologist [facility] HTLV-I/II Negative Negative [facility] Antibodies QL Comment: Performed at: [employer] [address] Room [address] [place] [id number] Guidance Counselor: Miesha Barrett PhD, Phone: [phone] Specimen Blood Performing Organization Address City/State/ZIP Code P maame Number [facility] [address] [place], [place] [address] [facility] Interface [id number] [place] [phone] * Paraneoplastic Malorie (01/27/2021 6:04 PM CDT) Paraneoplastic See Note [facility] Interp Comment: Laboratories No informative autoantibodies were detected in theParaneoplastic Evaluation. However, a negative result doesnot exclude neurological autoimmunity with or withoutassociated neoplasia. Sensitivity and specificity ofantibody testing are enhanced by testing both serum andCSF. Reflex added None. [facility] Comment: Laboratories ADDITIONAL INFORMATION This test was developed and its performance characteristicsdetermined by [facility] in a manner consistent with CLIArequirements. This test has not been cleared or approved bythe U.S. Food and Drug Administration. Anti-Neuronal Negative <1:240 titer [facility] Nuc Ab,Tp 1 [facility] Anti-Neuronal Negative <1:240 titer [facility] Nuc Ab,Tp 2 Comment: Laboratories ADDITIONAL INFORMATION This test was developed and its performance characteristicsdetermined by [facility] in a manner consistent with CLIArequirements. This test has not been cleared or approved bythe U.S. Food and Drug Administration. Anti-Neuronal Negative <1:240 titer [facility] Nuc Ab,Tp 3 Comment: Laboratories ADDITIONAL INFORMATION This test was developed and its performance characteristicsdetermined by [facility] in a manner consistent with CLIArequirements. This test has not been cleared or approved bythe U.S. Food and Drug Administration. Anti-Glial Negative <1:240 titer [facility] Nuclear Ab,Type Comment: Laboratories 1 ADDITION AL INFORMATION This test was developed and its performance characteristicsdetermined by [facility] in a manner consistent with CLIArequirements. This test has not been cleared or approved by[facility].S. Food and Drug Administration. Purkinje Cell Negative <1:240 titer [facility] Cyto Ab, Tp 1 Comment: Laboratories ADDITIONAL INFORMATION This test was developed and its performance characteristicsdetermined by [facility] in a manner consistent with CLIArequirements. This test has not been cleared or approved bythe .S. Food and Drug Administration. Purkinje Cell Negative <1:240 titer [facility] Cyto Ab,Tp 2 Comment: Laboratories ADDITIONAL INFORMATION This test was developed and its performance characteristicsdetermined by [facility] in a manner consistent with CLIArequirements. This test has not been cleared or approved bythe .S. Food and Drug Administration. Purkinje Cell Negative <1:240 titer [facility] Cyto Ab,Tp Tr Comment: Laboratories ADDITIONAL INFORMATION This test was developed and its performance characteristicsdetermined by [facility] in a manner consistent with CLIArequirements. This test has not been cleared or approved bythe U.S. Food and Drug Administration.Test Performed by:[address] [address]Zpa Director: Guru Mata M.D. Ph.D.; CLIA# [id number] Amphiphysin Ab Negative <1:240 titer [facility] Comment: Laboratories ADDITIONAL INFORMATION This test was developed and its performance characteristicsdetermined by [facility] in a manner consistent with CLIArequirements. This test has not been cleared or approved bythe U.S. Food and Drug Administration. CRMP-5-IgG Negative <1:240 titer [facility] Comment: Laboratories ADDITIONAL INFORMATION This test was developed and its performance characteristicsdetermined by [facility] in a manner consistent with CLIArequirements. This test has not been cleared or approved bythe U.S. Food and Drug Administration. P/Q-Type 0.01 <=0.02 nmol/L [facility] Calcium Channel Comment: Laboratories Malorie ADDITION AL INFORMATION This test was developed and its performance characteristicsdetermined by [facility] in a manner consistent with CLIArequirements. This test has not been cleared or approved bythe U.S. Food and Drug Administration. AChR Ganglionic 0.00 <=0.02 nmol/L [facility] Neuronal Malorie Comment: Laboratories ADDITIONAL INFORMATION This test was developed and its performance characteristicsdetermined by [facility] in a manner consistent with CLIArequirements. This test has not been cleared or approved bythe U.S. Food and Drug Administration. VGKC-Malorie 0.00 <=0.02 nmol/L [facility] Comment: Laboratories ADDITIONAL INFORMATION This test was developed and its performance characteristicsdetermined by [facility] in a manner consistent with CLIArequirements. This test has not been cleared or approved bythe U.S. Food and Drug Administration. Specimen Blood Performing Organization Address City/State/ZIP Code P maame Number [facility] [address] [place], [place] [address] [facility] Laboratories [address] [facility] [place] [address] * LA/SSB Antibody (01/27/2021 6:04 PM CDT) LA/SSB Antibody Negative Negative [facility] Specimen Blood Performing Organization Address City/State/ZIP Code P maame Number [facility] [address] [place] [address] LABORATORIES [facility] [address] [place] [address] * RO/SSA Antibody (01/27/2021 6:04 PM CDT) RO/SSA Antibody Negative Negative [facility] Specimen Blood Performing Organization Address City/[facility]/ZIP Code P maame Number [facility] [address] [place] [address] LABORATORIES [facility] [address] [place] [address] * Antinuclear Antibody IFA (MICHAELA) (01/27/2021 6:04 PM CDT) MICHAELA Speckled [facility] Lab Pattern 1 MICHAELA 1:160 [facility] Titer 1 MICHAELA Qualitative Positive (A)Comment: [facility] uses the [facility] Lab Lite HEp-2 indirect immunofluorescent assay for screening and semi-quantitative determination of anti-nuclear antibodies (MICHAELA) in human serum. Specimen Blood Performing Organization Address City/[facility]/ZIP Code P maame Number [facility] [address] [place] [address] LABORATORIES [facility] [address] [place] [address] * Angiotensin Converting Enzyme (01/27/2021 6:04 PM CDT) Angiotensin 19 14 - 82 U/L [facility] Converting Comment: Enzyme Performed at: [facility] [address] [id number] Guidance Counselor: Rony Berg MD, Phone: [phone] Specimen Blood Performing Organization Address City/[facility]/ZIP Code P maame Number [facility] [address] [place], [place] [address] [facility] Interface [id number] [place] [address] [facility] * Angiotension Convert Enzyme (WILLAM) CSF (01/27/2021 4:00 PM CDT) Angiotension 1.7 0.0 - 2.5 U/L [facility] Convert Enzyme Comment: Laboratories CSF This test was developed and its performance characteristicsdetermined by [facility]. It has not been cleared orapproved by the [place] Food and Drug Administration. This testwas performed in a CLIA certified laboratory and isintended for clinical purposes.Performed By: [facility] [address] [place] [id number] Director: Rachel Dunne MDTest Performed by:[facility] [address] [place] [address] Specimen CSF Performing Organization Address City/State/ZIP Code P maame Number [facility] [address] [place], [place] [address] [address] * Paraneoplastic Autoab Eval, CSF (01/27/2021 4:00 PM CDT) Pathologist [facility] AGNA-1, CSF Negative <1:2 titer [facility] Comment: Laboratories ADDITIONAL INFORMATION This test was developed and its performance characteristicsdetermined by [facility] in a manner consistent with CLIArequirements. This test has not been cleared or approved bythe U.S. Food and Drug Administration. Amphiphysin Ab, Negative <1:2 titer [facility] CSF Comment: Laboratories ADDITIONAL INFORMATION This test was developed and its performance characteristicsdetermined by [facility] in a manner consistent with CLIArequirements. This test has not been cleared or approved bythe U.S. Food and Drug Administration. JAMESON-1, CSF Negative <1:2 titer [facility] JAMESON-2, CSF Negative <1:2 titer [facility] Comment: Laboratories ADDITIONAL INFORMATION This test was developed and its performance characteristicsdetermined by [facility] in a manner consistent with CLIArequirements. This test has not been cleared or approved bythe U.S. Food and Drug Administration. JAMESON-3, CSF Negative <1:2 titer [facility] Comment: Laboratories ADDITIONAL INFORMATION This test was developed and its performance characteristicsdetermined by [facility] in a manner consistent with CLIArequirements. This test has not been cleared or approved bythe U.S. Food and Drug Administration. CRMP-5-IgG, CSF Negative <1:2 titer [facility] Comment: Laboratories ADDITIONAL INFORMATION This test was developed and its performance characteristicsdetermined by [facility] in a manner consistent with CLIArequirements. This test has not been cleared or approved bythe U.S. Food and Drug Administration. Paraneoplastic See Note [facility] Inter[facility] Comment: Laboratories No informative autoantibodies were detected in theParaneoplastic Evaluation. However, a negative result doesnot exclude neurological autoimmunity with or withoutassociated neoplasia. Sensitivity and specificity ofantibody testing are enhanced by testing both serum andCSF. C IRON WORKER-1, CSF Negative <1:2 titer [facility] Comment: Laboratories ADDITIONAL INFORMATION This test was developed and its performance characteristicsdetermined by [facility] in a manner consistent with CLIArequirements. This test has not been cleared or approved bythe U.S. Food and Drug Administration. C IRON WORKER-2, CSF Negative <1:2 titer [facility] Comment: Laboratories ADDITIONAL INFORMATION This test was developed and its performance characteristicsdetermined by [facility] in a manner consistent with CLIArequirements. This test has not been cleared or approved bythe U.S. Food and Drug Administration.Test Performed by:[facility] - [address] [place] [address]Luc Director: Guru Mata M.D. Ph.D.; CLIA# [id number] C IRON WORKER-Tr, CSF Negative <1:2 titer [facility] Comment: Laboratories ADDITIONAL INFORMATION This test was developed and its performance characteristicsdetermined by [facility] in a manner consistent with CLIArequirements. This test has not been cleared or approved bythe U.S. Food and Drug Administration. Reflex added None. [facility] Comment: Laboratories ADDITIONAL INFORMATION This test was developed and its performance characteristicsdetermined by [facility] in a manner consistent with CLIArequirements. This test has not been cleared or approved bythe U.S. Food and Drug Administration. Specimen CSF Performing Organization Address [facility] P maame Number [id number] [address] Laboratories [address] [facility], [facility] [address] * VDRL CSF (01/27/2021 4:00 PM CDT) Pathologist [facility] VDRL CSF Non Reactive Non [place]:<1:1 [facility] Comment: Performed at: - [facility] [id number] Guidance Counselor: Rony Berg MD, Phone: [phone] Specimen CSF Performing Organization Address [facility] P maame Number [facility] [address] [place] [address] [facility] Interface [id number] [place] [address] [place] [address] * Meningitis/Encephalitis Panel (01/27/2021 4:00 PM CDT) Pathologist [facility] Cryptococcus Not Detected Not Detected [facility] neoformans/gatt [facility] ii Cytomegalovirus Not Detected Not Detected [facility] Enterovirus Not Detected Not Detected [facility] Escherichia Not Detected Not Detected [facility] coli K1 [facility] Haemophilus Not Detected Not Detected [facility] Herpes simplex Not Detected Not Detected [facility] virus 1 [facility] Herpes simplex Not Detected Not Detected [facility] virus 2 [facility] Human Not Detected Not Detected [facility] parechovirus [facility] Listeria Not Detected Not Detected [facility] monocytogenes [facility] Neisseria Not Detected Not Detected [facility] meningitidis [facility] Streptococcus Not Detected Not Detected [facility] agalactiae [facility] Streptococcus Not Detected Not Detected [facility] pneumoniae [facility] Varicella Not Detected Not Detected [facility] zoster virus [facility] Specimen CSF Performing Organization Address City/State/ZIP Code P maame Number [address] [address] LABORATORIES [facility] [address] [place] [address] * Multiple Sclerosis Profile (CSF and Serum) (01/27/2021 4:00 PM CDT) Bands, CSF 7Comment: The value no value bands M louise [facility] originally released by on Laboratories ############### was changed to 7 by IF on 02/02/2021 14:15 CSF Oligoclonal 0 <2 bands [facility] Comment: Laboratories The oligoclonal band assay detected no unique IgG bands inthe CSF. This is a negative result.Test Performed by:[facility] [place] [id number] Director: Guru Mata M.D. Ph.D.; CLIA# [id number] value no value originally released by on ############### was changed to 0 by IF on 02/02/2021 14:15 [place] Free 0.1040 (H) <0.1000 mg/dL [facility] Light Chain, Comment: Laboratories CSF The kappa free light concentration measured in CSFis at or greater than the threshold associated withdemyelinating disease. This is a positive result.These findings, however, are not specific for MSbecause CSF-specific immunoglobulin synthesis mayalso be detected in patients with other neurologic diseases(infectious, inflammatory, cerebrovascular, autoimmune,and paraneoplastic). Clinical correlation recommended. -ADDITIONAL INFORMATION This test has been modified from the er tech'sinstructions. Its performance characteristics weredetermined by [facility] in a manner consistent withCLIA requirements. This test has not been cleared orapproved by the U.S. Food and Drug Administration. Serum Bands 7 bands [facility] Comment: Laboratories Test Performed by:[facility] [place] [id number] Director: Guru Mata M.D. Ph.D.; CLIA# [id number] value no value originally released by on ############### was changed to 7 by IF on 02/02/2021 14:15 Specimen CSF Performing Organization Address City/[facility] Code P maame Number [facility] [address] [place], [place] [address] [facility] Laboratories [address] [facility] [place] [address] * Glucose (01/27/2021 4:00 PM CDT) Glucose 195 (H) 70 - 100 mg/dL [facility] Lab Specimen Blood Performing Organization Address City/[facility] P maame Number [place] [id number] [place] [address] LABORATORIES [facility] [address] [place] [address] * Leukemia/Lymphoma Panel Flow Cytometry (01/27/2021 4:00 PM CDT) AP_REPORT-[facility] on Report s [facility] (unformatted) [address] [address] FLOW CYTOMETRY REPORT Patient Name: ANGELA SANCHES Gender: M : 1940 Specimen Type: Fluid, Cerebrospinal Ordering Physician: AYANA GREEN Collection Date: 01/27/2021 16:00 Ordering Facility: [facility] Received Date: 01/27/2021 16:54 Clinical Information: Cord [...] CD7. The CD4:CD8 ratio is 3.0. Lymphocyte Kirkman RESULTS Lymphocyte Kirkman T Cell Markers B Cell Markers Additional [...] developed and its performance characteristics determined by [facility]. It has not been cleared or approved by the Food and Drug Administration (FDA). This test is used for clinical purposes. It should not be regarded as investigational or for research. The laboratory is regulated under CLIA as qualified to perform high-complexity testing and accredited by the [employer] (CAP). 1 Specimen AP_SPECIMEN Performing Organization Address City/State/ZIP [place] [address] LABORATORIES [facility] [address] [place] [address] * CSF Cell Count and Differential (01/27/2021 4:00 PM CDT) CSF Color Colorless [facility] CSF Clarity Clear [facility] CSF Absent Absent [facility] Xanthochromia [facility] Lab CSF WBC Count 8 (H) 0 - 5 /uL [facility] CSF RBC Count 0 /uL [facility] Tube Number, [facility] CSF Neutrophils 1 0 - 6 % [facility] CSF Lymphs 84 (H) 40 - 80 % [facility] CSF 15 15 - 45 % [facility] Lab phages CSF Eosinophils 0 % [facility] CSF Basophils 0 % [facility] CSF Ependymal 0 /100 [facility] ([place]) Cells [facility] CSF Blasts 0 % [facility] CSF Cells 100 [facility] Lab Specimen CSF Performing Organization Address City/State/ZIP Code P maame Number [facility] [address] [place] [address] LABORATORIES [facility] [address] [place] [address] * West Nile Virus IgG+IgM CSF (01/27/2021 4:00 PM CDT) West Nile Virus Negative Negative [facility] IgM CSF Comment: No detectable West Nile Virus IgM Antibody. If a recent infection is suspected, another specimen should be submitted for testing within 7-14 days. Performed at: - [facility] [address] [id number] Guidance Counselor: Rony Berg MD, Phone: [phone] West Nile Virus Negative Negative [facility] IgG CSF Comment: No detectable West Nile Virus IgG Antibody. If a recent infection is suspected, another specimen should be submitted for testing within 7-14 days. Specimen CSF Performing Organization Address City/[facility]/ZIP Code P [place] Number [facility] [address] [place], [place] [address] [facility] Interface [id number] [place] [address] [place] [address] * NMO/AQP4 IGG FACS, CSF (01/27/2021 4:00 PM CDT) NMO/AQP4-IGG Negative Negative [facility] FACS, CSF Comment: Laboratories Aquaporin-4 antibody testing is more sensitive in serumthan in spinal fluid. Recommend serum testing now if notcompleted, and repeating in 6 months if clinical suspicionis high. Negative result can occur in the setting ofimmunosuppression. ---------ADDITIONAL INFORMATION This test was developed and its performance characteristicsdetermined by [facility] in a manner consistent with CLIArequirements. This test has not been cleared or approved bythe U.S. Food and Drug Administration.Test Performed by:[facility] [place] , [place], [place] [address]Gfl Director: Guru Mata M.D. Ph.D.; CLIA# [id number] Specimen CSF Performing Organization Address City/State/ZIP Code P maame Number [facility] [address] [place], [place] [address] [facility] [address] [facility] [place] [address] * Protein CSF (01/27/2021 4:00 PM CDT) Protein CSF 246 (H) 15 - 60 mg/dL [facility] Specimen CSF Performing Organization Address City/[facility]/ZIP Code P maame Number [facility] [address] [place] [address] LABORATORIES [facility] [address] [place] [address] * Glucose CSF (01/27/2021 4:00 PM CDT) Glucose CSF 126 (H) 40 - 70 mg/dL [facility] Specimen CSF Performing Organization Address City/[facility]/ZIP Code P maame Number [facility] [address] [place] [address] LABORATORIES [facility] [address] [place] [address] * Culture, Spinal Fluid with Gram Stain (01/27/2021 4:00 PM CDT) Gram Stain No white blood cells seen [facility] Gram Stain No organisms seen [facility] Culture Result No growth at 4 Days [facility] Specimen CSF Performing Organization Address City/State/ZIP Code P maame Number [facility] [address] [place] [address] LABORATORIES [facility] [address] [place] [address] * MRI Outside images for PACS Spine (01/27/2021 2:38 PM CDT) Only the most recent of 5 results within the time period is included. Specimen Performing Organization Address City/State/ZIP Code P maame Number [place] * Cytology Non-Concrete Pipe Maker (01/27/2021 2:23 PM CDT) Specimen CSF Narrative Performed At [facility] CYTOLOGY REPORT PATIENT: ANGELA SANCHES /AGE/SEX: 1940 (Age: 80) /M ID #: [id number] SUBMITTING PHYSICIAN: JAKUB Nieves CLIENT: [facility] COLLECTED: 01/27/2021 REPORTED: 02/01/2021 SPECIMEN #: [id number] ##################MICROSCOPIC INTERPRET ATION################## Cerebral spinal fluid, lumbar [...] performed at [address] [place] [address]###END OF REPORT### Performing Organization Address City/State/ZIP Code P maame Number [facility] [address] [place], [place] [address] [address] * Complete Blood Count (01/27/2021 10:42 AM CDT) WBC 6.22 4.00 - 11.00 TH/uL [facility] Lab RBC 4.52 4.31 - 5.84 MIL/uL [facility] Lab Hemoglobin 14.8 13.0 - 17.0 g/dL [facility] Hematocrit 44 40 - 50 % [facility] MCV 97 80.0 - 99.0 fL [facility] MCH 33 27.0 - 34.0 pg [facility] Lab MCHC 34 32 - 36 % [facility] RDW 12.3 11.5 - 14.5 % [facility] Platelet Count 152 140 - 400 TH/uL [facility] MPV 12.1 9.4 - 12.3 fL [facility] Nucleated RBCs 0 0 - 0 /100 [facility] Specimen Blood Performing Organization Address City/[facility]/ZIP Code P maame Number [address] [address] LABORATORIES [facility] [address] [place] [address] * SARS-COV-2, ADENIKE (COVID-19) (01/26/2021 10:55 PM CDT) SARS-CoV-2 PCR NegativeComment: This RT-PCR Negative [facility] test has been authorized by Hospital Lab the FDA under an Emergency Use Authorization (EUA) for use by authorized laboratories. Performed on the [employer] Aptima SARS-CoV-2 assay, which utilizes [employer] Mediated Amplification (TMA) technology Specimen NASOPHARYNGEAL SWAB Performing Organization Address City/[facility] Code P maame Number [address] [address] LABORATORIES [facility] [address] [place] [address] documented in this encounter Visit Diagnoses Diagnosis [...] diabetes mellitus with diabetic polyneuropathy, unspecified whether medical terminologist insulin use (HCC) Urinary tract infection without [...] Oral, Every evening, First dos e on Sun02/05/21 at 1800 125 mcg Given 02/08/2021 5:38 [...] for injection by adding 1 mL of er tech-supplied sterile diluent or sterile water for injection [...] for injection by adding 1 mL of er tech-supplied sterile diluent o r sterile water for [...] Nightly, First dose (after last modification) on Sun02/01/21 at 2100 12 Units Right Arm Given 02/01/2021 8:44 PM CDT 01/31/2021 9:45 AM CDT 5 Units Left Low er Abdomen insulin glargine (LANTUS) injection 5 Given Units 5 Units, Subcutaneous, Once, On Sun01/31/21 at 0900, For 1 dose 02/09/2021 8:35 PM CDT 5 Units Right Lo wer Abdomen insulin glargine (LANTUS) injection 5 Given Units 5 Units, Subcutaneous, Nightly, First dose (after last modification) on Sun02/03/21 at 2100 5 Units Right Upper Abdomen [...] Intravenous, Once in imaging, contrast, Starting on 02/06/21 at 1625, For 1 dose 02/03/2021 3:39 PM CDT 1,000 mL 983.61 mL/hr lactated ringers bolus 1,000 mL New Bag 1,000 mL, Intravenous, Administer over 61 Minutes, Once, On Kadi 02/03/21 at 1445, For 1 dose 01/27/2021 4:15 PM CDT 5 mL Other lidocaine (pf) (XYLOCAINE-MPF) 10 mg/mL Given (1 %) injection Code/trauma/sedation medication, Starting on Kadi 01/27/21 at 1615 01/27/2021 7:14 PM CDT 0.5 mg LORazepam (ATIVAN) injection 0.5-1 mg Given 0.5-1 mg, Intravenous, Once, On Kadi 01/27/21 at 1030, For 1 dose, For [...] Intravenous, Administer over 121 Minutes, Once, On Sun02/01/21 at 1700, For 1 dose 02/03/2021 8:41 AM CDT 1,000 mL sodium chloride 0.9% (NS) IV Bolus New Bag 1,000 mL, Intravenous, Once, On Sun02/03/21 at 0845, For 1 dose 02/04/2021 3:50 PM CDT 250 mL 937.5 mL/hr sodium chloride 0.9% (NS) IV Bolus New Bag 250 mL, Intravenous, Administer over 16 Minutes, Once, On Sun02/04/21 at 1530, For 1 dose 02/09/2021 1:30 PM CDT 200 mL sterile water irrigation irrigation Given solution Starting on 02/09/21 at 1323, For 1 dose, Ginna Mcfarlane: cabinet override documented in this encounter Active and Recently Administered Medications Times are shown in CDT. 02/09/2021 02/10/2021 Medication Order 02/08/2021 0939 (Given - Provider: Maria Teresa Yañez er)2034 (Given - Provider: Krista Cast RN) 0853 (Given - Provider: Gertrude Mauricio RN) apixaban (ELIQUIS) tablet 5 mg 0820 (Given - 5 mg, Oral, 2 times daily, First dose on Provider: Zeyad pulido 01/31/21 at 1245 Theo Mathew RN)2042 (Given - Provider: Josue Barrett RN) 181 (Given - Provider: Alton Mathew RN) digoxin (LANOXIN) tablet 125 mcg 1737 (Given - 125 mcg, Oral, Every evening, First dose Provider: Zeyad pulido on 02/05/21 at 1800 Theo Mathew RN) 0938 (Given - Provider: Maria Teresa Yañez er)2034 (Given - Provider: Krista Cast RN) 0853 (Not Given - Provider: Gertrude garcia RN - Reason: Other - Comment: loose stools) docusate sodium (COLACE) capsule 100 mg 0820 (Given - 100 mg, Oral, 2 times daily, First dose Provider: He nrry (after last modification) on 01/30/21 [facility] Fr hannah, at 1015, Swallow capsule whole RN)2100 (Not Given - Provider: Josue Barrett RN - Reason: Patient/family refused) 2034 (Given - Provider: Krista Cast RN) insulin glargine (LANTUS) injection 5 2042 (Given - Units Provider: Josue Ye 5 Units, Subcutaneous, Nightly, First Arnold RN) dose (after last modification) on Kadi 02/03/21 at 2100 0730 (Not Given - Provider: [...] Rajendra velazco post meal fingerstick blood glucose Theo Mathew checks. If pt NPO or on continuous RN)1700 (Not Give n - enteral/parenteral nutrition - give with Provider: H enrry scheduled fingerstick blood glucose Theo Mathew RN check - dose per table Glucose (mg/dL) - Reason: Or kathy Dose 0-120 parameters not 0 units 121-150 met)2100 (Not Given 0 units 151-200 - Provider: Josue Ye 2 units 201-250 3 XIMOARA Barrett - Reason: units 251-300 4 Order [...] units 0938 (Given - Provider: Maria Teresa hoffmann)1130 (Given - Provider: Alton Mathew RN)1700 (Given - Provider: Alton Mathew RN) 0854 (Given - Provider: Gertrude Mauricio, XIOMARA) insulin lispro (HumaLOG) injection 8 0820 (Given - Units Provider: Alton 8 Units, Subcutaneous, 3 times daily Venegas Quincy , before meals, First dose (after last RN)1130 (Given - modification) on Sun02/01/21 at 1130 Provider: Venkatesh Mathew RN)1700 (Given - Provider: Alton Mathew RN) 0937 (Given - Provider: Maria Teresa Yañez er) 0853 (Given - Provider: Gertrude Mauricio RN) [...] on Sun01/26/21 at 2152, 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 If [...] low blood sugar, Starting on Sun01/26/21 at 2151, Give if patient NPO and no IV access. May give IM or SQ in arm and turn patient on side. Reconstitute powder for injection by adding 1 mL of er tech-supplied sterile diluent or sterile water for injection to a vial containing 1 unit o f the drug, to provide solutions containing 1 mg of glucagon/mL. Shake vial gently to dissolve. glucagon (GLUCAGEN) injection 1 mg(Linked Group 2) 1 mg, Subcutaneous, As needed, low bloo d sugar, low blood sugar, Starting on Sun01/26/21 at 2151, Give if patient NPO an d no IV access. May give IM or SQ in arm and turn patient on side. Reconstitute powder for injection by adding 1 mL of er tech-supplied sterile diluent o r sterile water for injection to a vial containing 1 unit of the drug, to provide solutions containing 1 mg of glucagon/mL. Shake vial gently to dissolve. glucose chewable tablet 16-32 g 16-32 g, Oral, As needed, low blood sugar, Starting on Sun01/26/21 at 2151, Give food, drink, or glucose tablets to [...] hours PRN, cough, Starting on Sun01/26/21 at 2153 magnesium sulfate IVPB 2 gram (premix) 2 g, Intravenous, at 25 mL/hr, As needed, standard electrolyte replacement, Starting on Sun01/26/21 at 2153, Replace in addition to any scheduled magnesium [...] constipation, constipation, Starting on Sun01/26/21 a t 3, Mix in 4-8 ounces of liquid. Hold [...] standard electrolyte replacement, Starting on Sun01/26/21 at 2152, Administer if unable to take oral potassium. [...] nausea/vomiting (1st line), Starting on Sun01/26/21 at 2152, May repeat 2.5 mg dose x 1 after 30 minutes if first dose ineffective. Do not exceed a total dose of 40 mg within a 2 4 hour period. Rate of administration should not exceed 5 mg/minute. prochlorperazine (COMPAZINE) injection 2.5-5 mg(Linked Group 5) 2.5-5 mg, Intramuscular, Every 4 hours PRN, nausea/vomiting (1st line), Starting on Sun01/26/21 at 2152, Administer if patient does not have IV access. May repeat 2.5 mg dose x 1 afte r 60 minutes if first dose ineffective. Do not exceed a total dose of 40 mg within a 24 hour period. prochlorperazine (COMPAZINE) suppositor y 25 mg(Linked Group 5) 25 mg, Rectal, Every 12 hours PRN, nausea/vomiting (1st line), Starting on Sun01/26/21 at 2152, Administer if patient does not have IV access and refuses IM injection. sodium chloride (OCEAN) 0.65 % nasal spray 1 spray 1 spray, Each Nare, As needed, irritation, Starting on Sun01/26/21 at 2152 sodium chloride 0.9% (NS) flush bag 25 [...] inje ction by adding 1 mL of er tech- supplied sterile diluent or sterile water for [...] inje ction by adding 1 mL of er tech- supplied sterile diluent or sterile water for injection to a via l containing 1 unit of the drug, to provide solutions containing 1 mg of glucagon/mL. Shake v ial gently to dissolve.
Group 3: metoclopramide (REGLAN) injection 5 mgJ ump to med 5 mg, Intravenous, Every 6 hours PRN, n ausea/vomiting (3rd line), Starting on Sun01/26/21 at 2152 Or metoclopramide (REGLAN) injection 5 mgJ ump to med 5 mg, Intramuscular, Every 6 hours PRN, nausea/vomiting (3rd line), Starting on Sun01/26/21 at 2152
Administer if patient does not have IV access.
Group 4: potassium chloride (KLOR-CON) CR tablet 20 mEqJump to med 20 mEq, Oral, As needed, standard elect rolyte replacement, Starting on Sun01/26/21 at 2152
Replace in addition to any sche duled [...] elect rolyte replacement, Starting on Sun01/26/21 at 2152
Administer if unable to swallow potassium tablets. [...] standard electrolyte replacement, Starting on Sun01/26/21 at 3
Administer if unable to take oral potassium. [...] med 2.5-5 mg, Intravenous, Every 4 hours NE N, nausea/vomiting (1st line), Starting on Sun01/26/21 [...]
--- OUTSIDE RECORDS SUMMARY | 2021-02-18 05:43 | XMS REPORT | Clinical Summary ---
Author Author [facility] Organization [facility] Address Unknown Phone Unavailable Care Team Providers Care Preschool Lead Teacher Name Role Phone Christophe Kennedy MD PCP [...] [facility] working on placement -Discussed with [facility] on-call herminia rologist. As per requested by patient's family. [facility] stem is not on the [facility] care network system. Therefore this needs [...] Encounters Care Team Description Date Type Specialty Christophe Kennedy MD Type 2 diabetes mellitus without complic ation (HCC) (Primary Dx) 02/17/2021 Transcribe Endocrinology Orders 01/27/2021 Imaging Radiology Appointment 01/27/2021 Imaging Radiology [...] diabetes mellitus with diabetic polyneuropathy, unspecified whether shelter insulin use (HCC); Urinary tract infection without hematuria, site unspecified; Constipation, unspecified constipation type; BAM (obstructive sleep apnea); Hepatic hemangioma 01/26/2021 [facility] Neurology - Encounter 02/10/2021 Malcom, Default Authenticator [...] Date Type Specialty Vangie Marion PA [address] [place] [address] [phone] 03/03/2021 Office Visit Neurosurgery Health Maintenance Due [...] ANTICARDIOLIPIN Routine 01/27/2021 ANTIBODIES 6:04 PM CDT [id number] [id number] Routine 01/27/2021 AND IGM 6:04 PM [...] PACS SPINE 2:34 PM CDT consultation CYTOLOGY NON-SPECIAL EDUCATION INCLUSION TEACHER Routine 01/27/2021 2:23 PM CDT GLUCOSE POC [...] POC 138 (H) 70 - 100 mg/dL [facility] Specimen Performing Organization Address City/State/ZIP Code P maame Number [address] [address] LABORATORIES * Comprehensive Metabolic Panel (02/08/2021 12:04 PM CDT) Only the most recent of 5 results within the time period is included. Pathologist [facility] Sodium 134 133 - 147 MEQ/L [facility] Potassium 3.8 3.5 - 5.3 MEQ/L [facility] Chloride 103 96 - 112 MEQ/L [facility] Carbon Dioxide 25 20 - 32 MEQ/L [facility] Anion Gap 6 5 - 17 [facility] Calcium 7.8 (L) 8.4 - 10.5 mg/dL [facility] Glucose 210 (H) 70 - 100 mg/dL [facility] Protein Total 4.9 (L) 6.0 - 8.2 g/dL [facility] Serum [facility] Albumin 2.3 (L) 3.5 - 5.0 g/dL [facility] Alkaline 49 42 - 140 IU/L [facility] Alanine 42 0 - 49 IU/L [facility] e Aspartate 25 15 - 46 IU/L [facility] Lab e Bilirubin Total 1.5 (H) 0.2 - 1.3 mg/dL [facility] Blood Urea 24 7 - 26 mg/dL [facility] Creatinine 0.8 0.6 - 1.3 mg/dL [facility] eGFR Male AA 113 60 - 200 [facility] mL/min/1.73sq m [facility] Lab eGFR Male 93 60 - 200 [facility] Non-AA mL/min/1.73sq [facility] Lab Specimen Blood Performing Organization Address City/State/ZIP Code P maame Number [facility] [address] [place] [address] LABORATORIES [facility] [address] [place] [address] * CBC and Diff (manual diff if necessary) (02/08/2021 12:04 PM CDT) Only the most recent of 6 results within the time period is included. WBC 7.29 4.00 - 11.00 TH/uL [facility] RBC 4.36 4.31 - 5.84 MIL/uL [facility] Hemoglobin 14.3 13.0 - 17.0 g/dL [facility] Hematocrit 41 40 - 50 % [facility] MCV 94 80.0 - 99.0 fL [facility] MCH 33 27.0 - 34.0 pg [facility] MCHC 35 32 - 36 % [facility] RDW 13.1 11.5 - 14.5 % [facility] Platelet Count 133 (L) 140 - 400 TH/uL [facility] MPV 12.1 9.4 - 12.3 fL [facility] Nucleated RBCs 0 0 - 0 /100 [facility] % Neutrophils 78 45 - 78 % [facility] %Lymphocytes 10 (L) 15 - 47 % [facility] % Monocytes 9 0 - 12 % [facility] %Eosinophils 3 0 - 7 % [facility] %Basophils 0 0 - 2 % [facility] % Imm Grans 0 0 - 1 % [facility] # Granulocytes 5.72 1.70 - 6.80 TH/uL [facility] # Lymphocytes 0.74 (L) 1.00 - 3.30 TH/uL [facility] # Monocytes 0.63 0.20 - 0.90 TH/uL [facility] # Eosinophils 0.19 0.00 - 0.40 TH/uL [facility] # Basophils 0.01 0.00 - 0.10 TH/uL [facility] Specimen Blood Performing Organization Address City/State/ZIP Code P maame Number [facility] [address] [place] [address] LABORATORIES [facility] [address] [place] [address] * Acute Hepatitis Panel (02/07/2021 8:01 AM CDT) Hepatitis B Non-reactive Non-reactive [facility] Core Ab IgM [facility] Lab Hepatitis B Non-reactive Non-reactive [facility] Hepatitis C Ab Non-reactive Non-reactive [facility] Hepatitis A Ab Non-reactive Non-reactive [facility] Specimen Blood Performing Organization Address City/State/ZIP Code P maame Number [facility] [address] [place] [address] LABORATORIES [facility] [address] [place] [address] * CT Abdomen w wo contrast (02/06/2021 [...] given the patient's hi story READING SITE: [facility] Narrative Performed At Patient: ANGELA SANCHES Sex#: M #: 1940 Quiat# : [id number] Location: [address]-01 Accession# : [id number] Ordering Provider: BINU KISER Procedure Requested: [id number] CT ABDOM EN W WO CONTRAST Reason [...] ANGELA SANCHES Sex#: M #: 1940 Quita#: [id number] Location: [address]-01 Ordering Provider: BINU KISER Procedure Requested: [id number] CT ABDOMEN W WO CONTRAST Reason for [...] stability given the patient's history READING SITE: [facility] Performing Organization Address City/State/ZIP Code P maame Number [place] * US Abdomen complete (02/05/2021 10:20 AM CDT) Specimen Impressions Performed At 1. Spleen is normal size. [facility] 2. Gallbladder contains sludge and shad owing stone. No evidence of acute cholecystitis. 3. 2.6 cm echogenic lesion in the left hepatic lobe, potentially a hemangioma. This should be confirmed wi th CT or MRI if patient has chronic liver disease, is at risk for d evelopment of liver cancer, or has known cancer. READING SITE: [facility] Narrative Performed At Patient: ANGELA SANCHES Sex#: M #: 1940 [place]# : [id number] Location: [address] N[address]-01 Accession# : [id number] Ordering Provider: BINU KISER Procedure Requested: [id number] US ABDOM EN COMPLETE Reason for Exam: [...] ANGELA SANCHES Sex#: M #: 1940 Quita#: [id number] Location: [place] [id number] Ordering Provider: BINU KISER Procedure Requested: [id number] US ABDOMEN COMPLETE Reason for Exam: thrombocytopenia [...] cancer, or has known cancer. READING SITE: [facility] Performing Organization Address City/State/ZIP Code P maame Number [place] * Basic Metabolic Panel (02/05/2021 8:57 AM CDT) Only the most recent of 3 results within the time period is included. Sodium 135 133 - 147 MEQ/L [facility] Potassium 4.1 3.5 - 5.3 MEQ/L [facility] Chloride 103 96 - 112 MEQ/L [facility] Carbon Dioxide 29 20 - 32 MEQ/L [facility] Anion Gap 3 (L) 5 - 17 [facility] Calcium 7.6 (L) 8.4 - 10.5 mg/dL [facility] Glucose 107 (H) 70 - 100 mg/dL [facility] Blood Urea 23 7 - 26 mg/dL [facility] Creatinine 0.9 0.6 - 1.3 mg/dL [facility] eGFR Male AA 98 60 - 200 [facility] mL/min/1.73sq m Hospital Lab eGFR Male 81 60 - 200 [facility] Non-AA mL/min/1.73sq [facility] Specimen Blood Performing Organization Address City/[facility] Code P maame Number [facility] [address] [place] [address] LABORATORIES [facility] [address] [place] [address] * Lactate Venous WB, 4 Hour (02/04/2021 5:57 PM CDT) Only the most recent of 2 results within the time period is included. Lactate Venous 1.2 0.0 - 2.0 mmol/L [facility] Specimen Blood Performing Organization Address City/[facility]/ZIP Code P maame Number [facility] [address] [place] [address] LABORATORIES [facility] [address] [place] [address] * Magnesium (02/04/2021 5:57 PM CDT) Magnesium 2.2 1.4 - 2.7 mg/dL [facility] Specimen Blood Performing Organization Address City/State/ZIP Code P maame Number [facility] [address] [place] [address] LABORATORIES [facility] [address] [place] [address] * Lipid Panel (02/04/2021 5:57 PM CDT) Cholesterol 115 100 - 200 mg/dL [facility] HDL Cholesterol 29 (L) 40 - 110 mg/dL [facility] Non-HDL 86 0 - 130 mg/dL [facility] Triglycerides 83 0 - 150 mg/dL [facility] LDL Cholesterol 69 0 - 99 mg/dL [facility] Cholesterol/HDL 4.0 0.0 - 4.5 [facility] Specimen Blood Performing Organization Address City/State/ZIP Code P maame Number [facility] [address] [place] [address] LABORATORIES [facility] [address] [place] [address] * XR Chest single view frontal (02/04/2021 4:20 PM CDT) Specimen Impressions Performed At focal consolidation [facility] Cardiomegaly READING SITE: [facility] Narrative Performed At Patient: ANGELA SANCHES Sex#: M #: 1940 Q[place]# : [id number] Location: [address] N[address]-01 Accession# : [id number] Ordering Provider: BINU KISER Procedure Requested: [id number] XR CHEST SINGLE VIEW FRONTAL Reason for [...] ANGELA SANCHES Sex#: M #: 1940 Quita#: [id number] Location: [place] [address] Ordering Provider: BINU KISER Procedure Requested: [id number] XR CHEST SINGLE VIEW FRONTAL Reason for [...] IMPRESSION No focal consolidation Cardiomegaly READING SITE: [facility] Performing Organization Address City/State/ZIP Code P maame Number [facility] * Lactate Venous WB, 2 Hour (02/04/2021 3:57 PM CDT) Only the most recent of 2 results within the time period is included. Lactate Venous 1.9 0.0 - 2.0 mmol/L [facility] Specimen Blood Performing Organization Address City/State/ZIP Code P maame Number [address] [address] LABORATORIES [facility] [address] [place] [address] * Thyroid Stimulating Hormone (02/04/2021 3:57 PM CDT) Thyroid 4.29 0.47 - 4.68 uIU/mL [facility] Hormone Specimen Blood Performing Organization Address City/[facility]/ZIP Code P maame Number [address] [address] LABORATORIES [facility] [address] [place] [address] * T4 Free (02/04/2021 3:57 PM CDT) T4 Free 1.8 0.8 - 2.2 ng/dL [facility] Specimen Blood Performing Organization Address City/State/ZIP Code P maame Number [facility] [address] [place] [address] LABORATORIES [facility] [address] [place] [address] * Echo Complete with Doppler and Color [...] ANGELA SANCHES Date: 02/04/2021 13:21 Chart #: [id number] : 1940 Location: [facility] Sono: brittney Age: 80 Gender: M Referring: [...] Apical Anterior, M id Anterior, Basal Anterior, Simpson FINDINGS LV Ejection Fraction: 25 Patient declined [...] ANGELA SANCHES Date: 02/04/2021 13:21 Chart #: [id number] : 1940 Location: [facility] Sono: brittney Age: 80 Gender: M Referring: [...] Inferior, Apical Anterior, Mid Anterior, Basal Anterior, Simpson FINDINGS LV Ejection Fraction: 25 Patient declined [...] 148 [facility] Specimen Narrative Performed At [facility] Test Date: 2021-02-04 Pat Name: ANGELA SANCHES Department: [facility] Room: N213 Gender: Male [employer]: [id number] : 1940 Requested By: BINU CHRISTINA Order Number: [id number] Reading MD: William Lai Measurements Intervals [place] Rate: 148 P: WA: QRS: 37 QRSD: 144 T: 236 QT: 336 QTc: 528 Interpretive Statements ATRIAL FIBRILLATION, V-RATE 92-183 IVCD, CONSIDER ATYPICAL LBBB VENTRICULAR PREMATURE COMPLEX Electronically Signed On 02-06-2021 15:2 1:57 CDT by William Lai Procedure Note Interface, External Ris In - 02/06/2021 3:22 PM CDT [facility] Test Date: 2021-02-04 Pat Name: ANGELA SANCHES Department: [facility] Room: 13 Gender: Male [employer]: [id number] : 1940 Requested By: BINU CHRISTINA Order Number: [id number] Reading MD: William Lai Measurements Intervals [place] Rate: 148 P: WA: QRS: 37 QRSD: 144 T: 236 QT: 336 QTc: 528 Interpretive Statements ATRIAL FIBRILLATION, V-RATE 92-183 IVCD, CONSIDER ATYPICAL LBBB VENTRICULAR PREMATURE COMPLEX Electronically Signed On 02-06-2021 15:21:57 CDT by William Lai Performing Organization Address City/[facility] P maame Number [facility] * Culture, Blood (02/04/2021 12:12 PM CDT) Only the most recent of 2 results within the time period is included. Culture Result No Growth at 5 days [facility] Specimen Blood Narrative Performed At L AC ; 20 ML [facility] Performing Organization Address City/[facility] P maame Number [address] [address] LABORATORIES [facility] [address] [place] [address] * Urinalysis Microscopic Only (02/04/2021 12:11 PM CDT) Microscopic RBC 0-5 0 - 5 /hpf [facility] Urine [facility] Microscopic WBC 0-5 0 - 5 /hpf [facility] Epithelial Absent Absent [facility] Hyaline Cast Absent Absent [facility] Bacteria Absent Absent [facility] Amorphous Urate Present (A) Absent [facility] Specimen Catheter Urine Performing Organization Address [facility] Code P maame Number [address] [place] [address] LABORATORIES [facility] [address] [place] [address] * Urinalysis Reflex (02/04/2021 12:11 PM CDT) Pathologist [facility] Appearance, Dark Yellow [facility] Urine [facility] Glucose Urine Negative Negative mg/dL [facility] Bilirubin Urine Small (A) Negative [facility] Ketones Urine Negative Negative mg/dL [facility] Specific 1.019 1.001 - 1.030 [facility] [place] Hemoglobin Trace (A) Negative [facility] PH Urine 5.5 5.0 - 8.0 [facility] Protein Urine Negative Negative mg/dL [facility] Urobilinogen Negative Negative EU/dL [facility] Nitrite Urine Negative Negative [facility] Leukocyte Positive (A) Negative [facility] Lab Specimen Catheter Urine Performing Organization Address City/[facility]/ZIP Code P maame Number [address] [address] LABORATORIES [facility] [address] [place] [address] * Prothrombin Time/INR (02/04/2021 12:05 PM CDT) [facility] Protime 21.1 (H) 11.4 - 15.0 sec [facility] INR 1.9 (H) 0.8 - 1.2 [facility] Specimen Blood Performing Organization Address City/[facility] Code P maame Number [facility] [address] [place] [address] LABORATORIES [facility] [address] [place] [address] * Troponin (02/04/2021 12:03 PM CDT) Pathologist [facility] Troponin 0.01 0.00 - 0.03 ng/mL [facility] Comment: Hospital Lab Troponin Value Interpretation 0.00 - 0.03 Healthy 0.04 - 0.12 Increased Cardiac Risk >0.12 Myocardial Infarction Troponin may not become elevated until 6 to 8 hours after onset of symptoms. Specimen Blood Performing Organization Address City/[facility]/ZIP Code P maame Number [facility] [address] [place] [address] LABORATORIES [facility] [address] [place] [address] * Lactate Venous WB - 0hr STAT (02/01/2021 4:23 PM CDT) Lactate Venous 3.7 (H) 0.0 - 2.0 mmol/L [facility] Specimen Blood Performing Organization Address [facility] Code P maame Number [facility] [address] [place] [address] LABORATORIES [facility] [address] [place] [address] * XR Abdomen single view AP (01/31/2021 10:46 AM CDT) Specimen Impressions Performed At Probable fecal impaction in the rectum. Nonobstructiv e bowel gas [facility] pattern. ATTESTATION STATEMENT: Staff Radiologis t has personally reviewed this study and agrees with the findings in t his report. READING SITE: [facility] Narrative Performed At Patient: ANGELA SANCHES Sex#: M #: 1940 [place]# : [id number] Location: [address] N[address]-01 Accession# : [id number] Ordering Provider: BINU KISER Procedure Requested: [id number] XR ABDOM EN SINGLE VIEW AP Reason [...] ANGELA SANCHES Sex#: M #: 1940 Quit[place]#: [id number] Location: [address] Ordering Provider: BINU KISER Procedure Requested: [id number] XR ABDOMEN SINGLE VIEW AP Reason for [...] the findings in this report. READING SITE: [facility] Organization Address City/State/ZIP Code P maame Number [facility] * IR Lumbar puncture w fluoro (01/28/2021 7:27 AM CDT) Specimen Impressions Performed At Successful fluoroscopically-guided lumbar puncture wi thout complication. [place] ATTESTATION STATEMENT: The Staff Physic apple has personally reviewed the images and dictated, reviewed, or edite d the final report. READING SITE: [facility] Narrative Performed At Patient: ANGELA SANCHES Sex#: M #: 1940 [place]# : [id number] Location: [address] Accession# : [id number] Ordering Provider: CHITRA GOODMAN Procedure Requested: [id number] IR LUMBA R PUNCTURE W FLUORO Reason [...] was present for the entire p rocedure. IT SPECIALIST: Dr. Ranjan Martínez, neuroradiology interventional fellow. Dr. [...] ANGELA SANCHES Sex#: M #: 1940 Q[place]#: [id number] Location: [address] N[address]-01 Ordering Provider: CHITRA GOODMAN Procedure Requested: [id number] IR LUMBAR PUNCTURE W FLUORO Reason for [...] physician, was present for the entire procedure. IT SPECIALIST: Dr. Ranjan Martínez, neuroradiology interventional fellow. Dr. [...] or edited the final report. READING SITE: [facility] Performing Organization Address City/State/ZIP Code P maame [...] edite d the final report. READING SITE: [facility] Narrative Performed At Patient: ANGELA SANCHES Sex#: M #: 1940 [place]# : [id number] Location: [place] [address] Accession# : [id number] Ordering Provider: CHITRA GOODMAN Procedure Requested: [id number] MRI THOR ACIC SPINE W WO CONTRAST [...] ANGELA SANCHES Sex#: M #: 1940 [place]#: [id number] Location: [address] N[address]-01 Ordering Provider: CHITRA GOODMAN Procedure Requested: [id number] MRI THORACIC SPINE W WO CONTRAST Reason [...] or edited the final report. READING SITE: [facility] Organization Address City/State/ZIP Code P maame Number [...] MRI for spinal cord findings. READING SITE: [facility]. ATTESTATION STATEMENT: The Staff Radiologist has personally re viewed the images and dictated, reviewed, or edited the final report. Narrative Performed At Patient: ANGELA SANCHES Sex#: M #: 1940 [place]# : [id number] Location: [place] [address] Accession# : [id number] Ordering Provider: CHITRA GOODMAN Procedure Requested: [id number] MRI HEAD W WO CONTRAST Reason for [...] ANGELA SANCHES Sex#: M #: 1940 [place]#: [id number] Location: [place] [address] Ordering Provider: CHITRA OGODMAN Procedure Requested: [id number] MRI HEAD W WO CONTRAST Reason for [...] MRI for spinal cord findings. READING SITE: [facility]. ATTESTATION STATEMENT: The Staff Radiologist has [...] edite d the final report. READING SITE: [facility] Narrative Performed At Patient: ANGELA SANCHES Sex#: M #: 1940 [place]# : [id number] Location: [address] N[address]-01 Accession# : [id number] Ordering Provider: CHITRA GOODMAN Procedure Requested: [id number] MRI CERV ICAL SPINE W WO CONTRAST [...] ANGELA SANCHES Sex#: M #: 1940 [place]#: [id number] Location: [place] [id number] Ordering Provider: CHITRA GOODMAN Procedure Requested: [id number] MRI CERVICAL SPINE W WO CONTRAST Reason for Exam: concern for expansile mass at OSH, progressive left sided weakness Exam Ordered: 01/27/2021 1010 Begin exam date/time: 01/27/20213 Exam Date/Time: 01/27/20212112 MRI CERVICAL SPINE W [...] or edited the final report. READING SITE: [facility] Organization Address City/State/ZIP Code P maame Number [facility] * Paraneoplastic Nadeem (01/27/2021 6:04 PM CDT) Paraneoplastic See Note [facility] Interp Comment: Laboratories No informative autoantibodies were detected in theParaneoplastic Evaluation. However, a negative result doesnot exclude neurological autoimmunity with or withoutassociated neoplasia. Sensitivity and specificity ofantibody testing are enhanced by testing both serum andCSF. Reflex added None. [facility] Comment: Laboratories ADDITIONAL INFORMATION This test was developed and its performance characteristicsdetermined by [facility] in a manner consistent with CLIArequirements. This test has not been cleared or approved bythe U.S. Food and Drug Administration. Anti-Neuronal Negative <1:240 titer [facility] Nuc Ab,Tp 1 Laboratories Anti-Neuronal Negative <1:240 titer [facility] Nuc Ab,Tp 2 Comment: Laboratories ADDITIONAL INFORMATION This test was developed and its performance characteristicsdetermined by [facility] in a manner consistent with CLIArequirements. This test has not been cleared or approved bythe U.S. Food and Drug Administration. Anti-Neuronal Negative <1:240 titer [facility] Nuc Ab,Tp 3 Comment: Laboratories ADDITIONAL INFORMATION This test was developed and its performance characteristicsdetermined by [facility] in a manner consistent with CLIArequirements. This test has not been cleared or approved bythe U.S. Food and Drug Administration. Anti-Glial Negative <1:240 titer [facility] Nuclear Ab,Type Comment: Laboratories 1 ADDITION AL INFORMATION This test was developed and its performance characteristicsdetermined by [facility] in a manner consistent with CLIArequirements. This test has not been cleared or approved bythe .. Food and Drug Administration. Purkinje Cell Negative <1:240 titer [facility] Cyto Ab, Tp 1 Comment: Laboratories ADDITIONAL INFORMATION This test was developed and its performance characteristicsdetermined by [facility] in a manner consistent with CLIArequirements. This test has not been cleared or approved bythe .. Food and Drug Administration. Purkinje Cell Negative <1:240 titer [facility] Cyto Ab,Tp 2 Comment: Laboratories ADDITIONAL INFORMATION This test was developed and its performance characteristicsdetermined by [facility] in a manner consistent with CLIArequirements. This test has not been cleared or approved bythe .S. Food and Drug Administration. Purkinje Cell Negative <1:240 titer [facility] Cyto Ab,Tp Tr Comment: Laboratories ADDITIONAL INFORMATION This test was developed and its performance characteristicsdetermined by [facility] in a manner consistent with CLIArequirements. This test has not been cleared or approved bythe .S. Food and Drug Administration.Test Performed by:[address] [id number] Director: Guru Mata M.D. Ph.D.; CLIA# [id number] Amphiphysin Ab Negative <1:240 titer [facility] Comment: Laboratories ADDITIONAL INFORMATION This test was developed and its performance characteristicsdetermined by [facility] in a manner consistent with CLIArequirements. This test has not been cleared or approved bythe U.S. Food and Drug Administration. CRMP-5-IgG Negative <1:240 titer [facility] Comment: Laboratories ADDITIONAL INFORMATION This test was developed and its performance characteristicsdetermined by [facility] in a manner consistent with CLIArequirements. This test has not been cleared or approved bythe U.S. Food and Drug Administration. P/Q-Type 0.01 <=0.02 nmol/L [facility] Calcium Channel Comment: Laboratories Nadeem ADDITION AL INFORMATION This test was developed and its performance characteristicsdetermined by [facility] in a manner consistent with CLIArequirements. This test has not been cleared or approved bythe U.S. Food and Drug Administration. AChR Ganglionic 0.00 <=0.02 nmol/L [facility] Neuronal Nadeem Comment: Laboratories ADDITIONAL INFORMATION This test was developed and its performance characteristicsdetermined by [facility] in a manner consistent with CLIArequirements. This test has not been cleared or approved bythe U.S. Food and Drug Administration. VGKC-Nadeem 0.00 <=0.02 nmol/L [facility] Comment: Laboratories ADDITIONAL INFORMATION This test was developed and its performance characteristicsdetermined by [facility] in a manner consistent with CLIArequirements. This test has not been cleared or approved bythe U.S. Food and Drug Administration. Specimen Blood Performing Organization Address City/State/ZIP Code P maame Number [id number] [place], [place] [address] [facility] Laboratories [address] [facility] [address] * HTLV-I/II Antibodies Qual (01/27/2021 6:04 PM CDT) [facility] HTLV-I/II Negative Negative [facility] Antibodies QL Comment: Performed at: [employer] [address] Room [address] [place] [address] [id number] Telecommunicator Supervisor: Miesha Barrett PhD, Phone: [phone] Specimen Blood Performing Organization Address City/[facility]/ZIP Code P maame Number [id number] [address] [place] [address] 11 [facility] Interface [id number] [place] [address] * Angiotensin Converting Enzyme (01/27/2021 6:04 PM CDT) [facility] Angiotensin 19 14 - 82 U/L [facility] Converting Comment: Enzyme Performed at: [employer] [facility] [id number] Telecommunicator Supervisor: Rony Berg MD, Phone: [phone] Specimen Blood Performing Organization Address [facility] P maame Number [id number] [place] [address] [facility] Interface [id number] [place] [address] * Complement Total (CH50) (01/27/2021 6:04 PM CDT) [facility] Complement 53 >41 U/mL [facility] Total (CH50) [...] determine out of range values. Performed at: [facility] [address] [id number] Telecommunicator Supervisor: Rony Berg MD, Phone: [phone] Specimen Blood Performing Organization Address [facility]/ZIP Code P maame Number SLRL [address] [place] [address] 11 [facility] Interface [id number] [place], [place] [address] [place] [address] * Antinuclear Antibody IFA (MICHAELA) (01/27/2021 6:04 PM CDT) Pathologist [facility] MICHAELA Speckled [facility] Lab Pattern 1 MICHAELA 1:160 [facility] Lab Titer 1 MICHAELA Qualitative Positive (A)Comment: [facility] uses the [facility] Lite HEp-2 indirect immunofluorescent assay for screening and semi-quantitative determination of anti-nuclear antibodies (MICHAELA) in human serum. Specimen Blood Performing Organization Address City/[facility]/ZIP Code P maame Number [address] [address] LABORATORIES [facility] [address] [place] [address] * Antiphospholipid Panel II (01/27/2021 6:04 PM CDT) Pathologist [facility] Protime 17.0 (H)Comment: Tissue 11.4 - 15.0 sec [facility] plasminogen activators (TPA) Hospital Lab and anticoagulation therapy, including Vitamin K, Xa, and direct thrombin inhibitors, can affect clot-based testing. APL testing cannot be performed when patient is taking Eliquis. INR 1.4 (H) 0.8 - 1.2 [facility] APTT 24 22 - 34 sec [facility] Specimen Blood Performing Organization Address City/[facility]/ZIP Code P maame Number [address] [address] LABORATORIES [facility] [address] [place] [address] * RO/SSA Antibody (01/27/2021 6:04 PM CDT) RO/SSA Antibody Negative Negative [facility] Specimen Blood Performing Organization Address City/[facility]/ZIP Code P maame Number [facility] [address] [place] [address] LABORATORIES [facility] [address] [place] [address] * LA/SSB Antibody (01/27/2021 6:04 PM CDT) LA/SSB Antibody Negative Negative [facility] Specimen Blood Performing Organization Address City/State/ZIP Code P maame Number [facility] [address] [place] [address] LABORATORIES [facility] [address] [place] [address] * C4 Complement (01/27/2021 6:04 PM CDT) C4 Complement 10 (L) 14 - 44 mg/dL [facility] Specimen Blood Performing Organization Address City/[facility]/ZIP Code P maame Number [facility] [address] [place] [address] LABORATORIES [facility] [address] [place] [address] * C3 Complement (01/27/2021 6:04 PM CDT) C3 Complement 103 83 - 172 mg/dL [facility] Specimen Blood Performing Organization Address City/[facility]/ZIP Code P maame Number [facility] [address] [place] [address] LABORATORIES [facility] [address] [place] [address] * Wntn-0-Mwgisvqgrxbg IgG and IgM (01/27/2021 6:04 PM CDT) B2 GLYCOPROTEIN 7 0 - 20 [facility] (IGG)[facility] Lab B2 GLYCOPROTEIN 2 0 - 20 [facility] (IGM)AB [facility] Lab Specimen Blood Performing Organization Address City/[facility]/ZIP Code P maame Number [facility] [address] [place] [address] LABORATORIES [facility] [address] [place] [address] * Anticardiolipin Antibodies (01/27/2021 6:04 PM CDT) Anticardiolipin <3 0 - 20 [facility] IgG Hospital Lab Anticardiolipin 21 (H) 0 - 20 [facility] IgM [facility] Lab Specimen Blood Performing Organization Address City/State/ZIP Code P maame Number [facility] [address] [place] [address] [facility] [address] [place] [address] * Paraneoplastic Autoab Eval, CSF (01/27/2021 4:00 PM CDT) AGNA-1, CSF Negative <1:2 titer [facility] Comment: Laboratories ADDITIONAL INFORMATION This test was developed and its performance characteristicsdetermined by [facility] in a manner consistent with CLIArequirements. This test has not been cleared or approved bythe U.S. Food and Drug Administration. Amphiphysin Ab, Negative <1:2 titer [facility] CSF Comment: Laboratories ADDITIONAL INFORMATION This test was developed and its performance characteristicsdetermined by [facility] in a manner consistent with CLIArequirements. This test has not been cleared or approved bythe U.S. Food and Drug Administration. JAMESON-1, CSF Negative <1:2 titer [facility] JAMESON-2, CSF Negative <1:2 titer [facility] Comment: Laboratories ADDITIONAL INFORMATION This test was developed and its performance characteristicsdetermined by [facility] in a manner consistent with CLIArequirements. This test has not been cleared or approved bythe U.S. Food and Drug Administration. JAMESON-3, CSF Negative <1:2 titer [facility] Comment: Laboratories ADDITIONAL INFORMATION This test was developed and its performance characteristicsdetermined by [facility] in a manner consistent with CLIArequirements. This test has not been cleared or approved bythe U.S. Food and Drug Administration. CRMP-5-IgG, CSF Negative <1:2 titer [facility] Comment: Laboratories ADDITIONAL INFORMATION This test was developed and its performance characteristicsdetermined by [facility] in a manner consistent with CLIArequirements. This test has not been cleared or approved bythe U.S. Food and Drug Administration. Paraneoplastic See Note [facility] Interp Comment: Laboratories No informative autoantibodies were detected in theParaneoplastic Evaluation. However, a negative result doesnot exclude neurological autoimmunity with or withoutassociated neoplasia. Sensitivity and specificity ofantibody testing are enhanced by testing both serum andCSF. PARK NATURALIST-1, CSF Negative <1:2 titer [facility] Comment: Laboratories ADDITIONAL INFORMATION This test was developed and its performance characteristicsdetermined by [facility] in a manner consistent with CLIArequirements. This test has not been cleared or approved bythe U.S. Food and Drug Administration. PARK NATURALIST-2, CSF Negative <1:2 titer [facility] Comment: Laboratories ADDITIONAL INFORMATION This test was developed and its performance characteristicsdetermined by [facility] in a manner consistent with CLIArequirements. This test has not been cleared or approved bythe U.S. Food and Drug Administration.Test Performed by:[address] [address]Lkd Director: Guru Mata M.D. Ph.D.; CLIA# [id number] PARK NATURALIST-Tr, CSF Negative <1:2 titer [facility] Comment: Laboratories ADDITIONAL INFORMATION This test was developed and its performance characteristicsdetermined by [facility] in a manner consistent with CLIArequirements. This test has not been cleared or approved bythe U.S. Food and Drug Administration. Reflex added None. [facility] Comment: Laboratories ADDITIONAL INFORMATION This test was developed and its performance characteristicsdetermined by [facility] in a manner consistent with CLIArequirements. This test has not been cleared or approved bythe U.S. Food and Drug Administration. Specimen CSF Performing Organization Address [facility] P maame Number SLRL [address] [place] [address] [address] [address] * NMO/AQP4 IGG FACS, CSF (01/27/2021 4:00 PM CDT) Pathologist [facility] NMO/AQP4-IGG Negative Negative [facility] FACS, CSF Comment: Laboratories Aquaporin-4 antibody testing is more sensitive in serumthan in spinal fluid. Recommend serum testing now if notcompleted, and repeating in 6 months if clinical suspicionis high. Negative result can occur in the setting ofimmunosuppression. ---------ADDITIONAL INFORMATION This test was developed and its performance characteristicsdetermined by [facility] in a manner consistent with CLIArequirements. This test has not been cleared or approved bythe U.S. Food and Drug Administration.Test Performed by:[facility] - [address] [address]Nmn Director: Guru Mata M.D. Ph.D.; CLIA# [id number] Specimen CSF Performing Organization Address City/[facility] P maame Number SLRL [address] [place], [place] [address], [address] [address] * Leukemia/Lymphoma Panel Flow Cytometry (01/27/2021 4:00 PM CDT) AP_REPORT-Horiz [facility] on [facility] Lab (unformatted) [facility] [address] [place] [address] FLOW CYTOMETRY REPORT Patient Name: ANGELA SANCHES Gender: M : 1940 Specimen Type: Fluid, Cerebrospinal Ordering Physician: CHITRA GOODMAN Collection Date: 01/27/2021 16:00 Ordering Facility: [facility] Received Date: 01/27/2021 16:54 Clinical Information: Cord [...] CD7. The CD4:CD8 ratio is 3.0. Lymphocyte [place] RESULTS Lymphocyte [place] T Cell Markers B Cell Markers Additional [...] developed and its performance characteristics determined by [facility]. It has not been cleared or approved by the Food and Drug Administration (FDA). This test is used for clinical purposes. It should not be regarded as investigational or for research. The laboratory is regulated under CLIA as qualified to perform high-complexity testing and accredited by the [employer] (CAP). 1 Specimen AP_SPECIMEN Performing Organization Address City/State/ZIP Code P maame Number [address] [address] LABORATORIES [facility] [address] [place] [address] * Multiple Sclerosis Profile (CSF and Serum) (01/27/2021 4:00 PM CDT) Bands, CSF 7Comment: The value no value bands M [facility] originally released by on [employer] ############### was changed to 7 by IF on 02/02/2021 14:15 CSF Oligoclonal 0 <2 bands [facility] Interp Comment: Laboratories The oligoclonal band assay detected no unique IgG bands inthe CSF. This is a negative result.Test Performed by:[address] [address]Pqc Director: Guru Mata M.D. Ph.D.; CLIA# [id number] value no value originally released by on ############### was changed to 0 by IF on 02/02/2021 14:15 [place] Free 0.1040 (H) <0.1000 mg/dL [facility] Light Chain, Comment: Laboratories CSF The kappa free light concentration measured in CSFis at or greater than the threshold associated withdemyelinating disease. This is a positive result.These findings, however, are not specific for MSbecause CSF-specific immunoglobulin synthesis mayalso be detected in patients with other neurologic diseases(infectious, inflammatory, cerebrovascular, autoimmune,and paraneoplastic). Clinical correlation recommended. -ADDITIONAL INFORMATION This test has been modified from the land planner'sinstructions. Its performance characteristics weredetermined by [facility] in a manner consistent withCLIA requirements. This test has not been cleared orapproved by the U.S. Food and Drug Administration. Serum Bands 7 bands [facility] Comment: Laboratories Test Performed by:[facility] - [address] [address]Oqb Director: Guru Mata M.D. Ph.D.; CLIA# [id number] value no value originally released by on ############### was changed to 7 by IF on 02/02/2021 14:15 Specimen CSF Performing Organization Address City/State/ZIP Code P maame Number SLRL [address] [place], [place] [address] [facility] Laboratories [address] [facility] [address] * Angiotension Convert Enzyme (WILLAM) CSF (01/27/2021 4:00 PM CDT) Pathologist [facility] Angiotension 1.7 0.0 - 2.5 U/L [facility] Convert Enzyme Comment: Laboratories CSF This test was developed and its performance characteristicsdetermined by 20:[address] [place]. It has not been cleared orapproved by the [place] Food and Drug Administration. This testwas performed in a CLIA certified laboratory and isintended for clinical purposes.Performed By: [facility] [id number] [place], [place] [address]Nauxtcladd Director: Rachel Dunne MDTest Performed by:[facility] [address] [place] [address] Specimen CSF Performing Organization Address City/[facility]/ZIP Code P [facility] Number SLRL [address] [place], [place] [address] [facility] [address] [facility] N [address] * West Nile Virus IgG+IgM CSF (01/27/2021 4:00 PM CDT) [facility] West Nile Virus Negative Negative [facility] IgM CSF Comment: No detectable West Nile Virus IgM Antibody. If a recent infection is suspected, another specimen should be submitted for testing within 7-14 days. Performed at: [address] [id number] Telecommunicator Supervisor: Rony Berg MD, Phone: [phone] West Nile Virus Negative Negative [facility] IgG CSF Comment: No detectable West Nile Virus IgG Antibody. If a recent infection is suspected, another specimen should be submitted for testing within 7-14 days. Specimen CSF Performing Organization Address City/[facility]/ZIP Code P maame Number SLRL [address] [place] [address] [facility] Interface [id number] [place] [address] [place] [address] * Meningitis/Encephalitis Panel (01/27/2021 4:00 PM CDT) [facility] Cryptococcus Not Detected Not Detected [facility] neoformans/gatt [facility] Lab ii Cytomegalovirus Not Detected Not Detected [facility] Enterovirus Not Detected Not Detected [facility] Escherichia Not Detected Not Detected [facility] coli K1 [facility] Lab Haemophilus Not Detected Not Detected [facility] Lab Herpes simplex Not Detected Not Detected [facility] virus 1 [facility] Lab Herpes simplex Not Detected Not Detected [facility] virus [address] [place] [address] Lab Human Not Detected Not Detected [facility] parechovirus [facility] Lab Listeria Not Detected Not Detected [facility] monocytogenes [facility] Lab Neisseria Not Detected Not Detected [facility] meningitidis [facility] Lab Streptococcus Not Detected Not Detected [facility] agalactiae [facility] Lab Streptococcus Not Detected Not Detected [facility] pneumoniae [facility] Lab Varicella Not Detected Not Detected [facility] zoster virus [facility] Lab Specimen CSF Performing Organization Address City/[facility]/ZIP Code P maame Number [facility] [address] [place] [address] LABORATORIES [facility] [address] [place] [address] * VDRL CSF (01/27/2021 4:00 PM CDT) Pathologist [facility] VDRL CSF Non Reactive Non Norma:<1:1 [facility] Comment: Performed at: [facility] [id number] Telecommunicator Supervisor: Rony Berg MD, Phone: [phone] Specimen CSF Performing Organization Address City/[facility]/ZIP Code P maame Number SLRL [address] [place], [place] [address] [facility] Interface [id number] [place] [address] [place] [address] * Protein CSF (01/27/2021 4:00 PM CDT) [facility] Protein CSF 246 (H) 15 - 60 mg/dL [facility] Specimen CSF Performing Organization Address City/[facility] Code P maame Number [facility] [address] [place] [address] LABORATORIES [facility] [address] [place] [address] * CSF Cell Count and Differential (01/27/2021 4:00 PM CDT) Pathologist [facility] CSF Color Colorless [facility] CSF Clarity Clear [facility] CSF Absent Absent [facility] Xanthochromia [facility] Lab CSF WBC Count 8 (H) 0 - 5 /uL [facility] CSF RBC Count 0 /uL [facility] Lab Tube Number, 3 [facility] CSF Neutrophils 1 0 - 6 % [facility] CSF Lymphs 84 (H) 40 - 80 % [facility] CSF 15 15 - 45 % [facility] Monocytes/Macro [facility] Lab phages CSF Eosinophils 0 % [facility] CSF Basophils 0 % [facility] CSF Ependymal 0 /100 [facility] ([place]) Cells [facility] Lab CSF Blasts 0 % [facility] CSF Cells 100 [facility] Lab Specimen CSF Performing Organization Address City/State/ZIP Code P maame Number [facility] [address] [place] [address] LABORATORIES [facility] [address] [place] [address] * Culture, Spinal Fluid with Gram Stain (01/27/2021 4:00 PM CDT) Gram Stain No white blood cells seen [facility] Lab Gram Stain No organisms seen [facility] Culture Result No growth at 4 Days [facility] Specimen CSF Performing Organization Address City/[facility]/ZIP Code P maame Number [facility] [address] [place] [address] LABORATORIES [facility] [address] [place] [address] * Glucose CSF (01/27/2021 4:00 PM CDT) Glucose CSF 126 (H) 40 - 70 mg/dL [facility] Specimen CSF Performing Organization Address City/[facility]/ZIP Code P maame Number [facility] [address] [place] [address] LABORATORIES [facility] [address] [place] [address] * Glucose (01/27/2021 4:00 PM CDT) Glucose 195 (H) 70 - 100 mg/dL [facility] Specimen Blood Performing Organization Address City/[facility]/ZIP Code P maame Number [facility] [address] [place] [address] LABORATORIES [facility] [address] [place] [address] * MRI Outside images for PACS Spine (01/27/2021 2:38 PM CDT) Only the most recent of 5 results within the time period is included. Specimen Performing Organization Address City/[facility]/ZIP Code P maame Number [facility] * Cytology Non-Cutter Out (01/27/2021 2:23 PM CDT) Specimen CSF Narrative Performed At [facility] CYTOLOGY REPORT PATIENT: ANGELA SANCHES /AGE/SEX: 1940 (Age: 80) /M ID #: [id number] SUBMITTING PHYSICIAN: JAKUB Nieves CLIENT: [facility] COLLECTED: 01/27/2021 REPORTED: 02/01/2021 SPECIMEN #: [id number] ##################MICROSCOPIC INTERPRET ATION################## Cerebral spinal fluid, lumbar [...] performed at [address], [place] [address]###END OF REPORT### Performing Organization Address City/State/ZIP Code P maame Number MA[facility] [id number] [place], [place] [address] [id number] * Complete Blood Count (01/27/2021 10:42 AM CDT) WBC 6.22 4.00 - 11.00 TH/uL [facility] RBC 4.52 4.31 - 5.84 MIL/uL [facility] Hemoglobin 14.8 13.0 - 17.0 g/dL [facility] Hematocrit 44 40 - 50 % [facility] MCV 97 80.0 - 99.0 fL [facility] MCH 33 27.0 - 34.0 pg [facility] MCHC 34 32 - 36 % [facility] RDW 12.3 11.5 - 14.5 % [facility] Platelet Count 152 140 - 400 TH/uL [facility] MPV 12.1 9.4 - 12.3 fL [facility] Nucleated RBCs 0 0 - 0 /100 [facility] Specimen Blood Performing Organization Address City/[facility]/ZIP Code P maame Number [address] [address] LABORATORIES [facility] [address] [place] [id number] * SARS-COV-2, ADENIKE (COVID-19) (01/26/2021 10:55 PM CDT) SARS-CoV-2 PCR NegativeComment: This RT-PCR Negative S [facility] test has been authorized by Hospital Lab the FDA under an Emergency Use Authorization (EUA) for use by authorized laboratories. Performed on the [employer] Aptima SARS-CoV-2 assay, which utilizes Embedded Linux Developer Mediated Amplification (TMA) technology Specimen NASOPHARYNGEAL SWAB Performing Organization Address City/[facility] P maame Number [address] [address] LABORATORIES [facility] [address] [place] [phone] from Last 3 Months Insurance Type Payer Benefit Subscriber ID Effective Phone Address Plan / Dates Group MEDICARE REPLACEMENT PLAN [facility] DUAL [id number] 2020-P COMPLETE resent [place] OTHER GOVERNMENT [id number] 2021- FOR LIFE Present Angela Sanches Personal/F Self 1940 [address] [facility] [place] [address] Advance Directives For more information, please contact: [phone] Patient Distribution District Supervisor Explanation Type Date Recorded Health Care Directive Date Inactivated Comments Code Status Date Activated DNR 01/26/2021 9:27 PM
--- OUTSIDE RECORDS SUMMARY | 2021-02-18 05:43 | XMS REPORT | Encounter Summary ---
Author Author [facility] Organization [facility] Address Unknown Phone Unavailable Care Team Providers Care Technical Expert Name Role Phone Christophe Kennedy MD PCP Reason for Referral * Consultation (Routine) Referred By Contact Referred To Contact Status Reason Specialty Diagnoses / Procedures Christophe Kennedy MD [address] [place] [address] [facility] [address] [place] [phone] Pending Review Specialty Services Diabetes Diagnoses Required Services Type 2 diabetes mellitus without complication (HCC) Electronically signed by Christophe Kennedy MD at Encounter Details Care Team Description Date Type Department Christophe Kennedy MD [address] [place] [address] Type 2 diabetes mellitus without complic ation (HCC) (Primary Dx) 02/17/2021 Transcribe [facility] - [address] [address] Social History Date Tobacco Use Types Packs/Day Years Used Quit: 01/26/1997 Former Smoker Smokeless Tobacco: Never Used Comments Alcohol Use Standard Drinks/Week Not Currently 0 (1 standard drink = 0.6 o z pure alcohol) Sex Assigned at Date Recorded Not on file documented as of this encounter Plan of Treatment Care Team Description Date Type Specialty Vangie Marion PA [address] [facility] [address] [place] [address] [phone] 03/03/2021 Office Visit Neurosurgery Order Schedule Name Type Priority Associated Diag noses 6 Occurrences starting 02/17/2021 until 02/17/2022 Amb Referral To Diabetic Outpatient Routine Type 2 diabetes mellitus Education Referral without complicatio n (HCC) documented as of this encounter Visit Diagnoses Diagnosis Type 2 diabetes mellitus without compli cation (HCC) - Primary documented in this encounter
== END ==
LOC: SDC 05:39
PROVIDERS: ATTEND Urology
DX: N40.1 Benign prostatic hyperplasia with lower urinary tract symptoms (principal); N31.9 Neuromuscular dysfunction of bladder, unspecified; R33.8 Other retention of urine; N39.498 Other specified urinary incontinence; I48.20 Chronic atrial fibrillation, unspecified; E11.9 Type 2 diabetes mellitus without complications; Z90.79 Acquired absence of other genital organ(s); Z79.4 Long term (current) use of insulin; Z79.01 Long term (current) use of anticoagulants; Z79.899 Other long term (current) drug therapy